=== PATIENT | male | born 1990 | race Two or more races ===

== ENCOUNTER 2017-03-08 10:58 | Emergency (ER) | payer OTHER ==
[~2017-03-08] VITALS: Ht 167.6 cm; Wt 86.2 kg
[2017-03-08] MEDS ORDERED: Lidocaine 1% MPF 10mg/ml 5ml ONE (12:14)
[2017-03-08] MEDS ORDERED: KEFLEX500 MG ORAL (12:19)
[2017-03-08] MEDS ORDERED: BACITRACIN ZIN1 EACH TOPIC (12:19)
[2017-03-08] MEDS ORDERED: IBUPROFEN600 MG ORAL (12:19)
[2017-03-08 12:51] VITALS: BP 123/83
--- NOTE | 2017-03-08 16:16 | Emergency Room Report ---
History of Present Illness General Chief Complaint: Laceration Source: Patient Present Illness HPI This is 27-year-old male who presented after increased pain to his left hand. 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 Patient denied any numbness distally. He had injury just prior to arrival. The patient had not been having any pulsatile bleeding. He denied any other complaints or areas of injury Allergies: Coded Allergies: No Known Allergies (Unverified , 03/08/17) Patient History Past Medical History: see triage record Reviewed Nursing Documentation: PMH: Agreed, PSxH: Agreed Nursing Documentation-PMH Past Medical History: No Stated History Review of Systems All Other Systems: negative except mentioned in HPI Physical Exam Vital Signs Date Time Temp Pulse Resp B/P Pulse Ox O2 Delivery O2 Flow Rate FiO2 03/08/17 11:03 97.5 80 20 148/62 96 Room Air General Appearance: well appearing, no apparent distress, alert, GCS 15, non- toxic Head: normocephalic, atraumatic ENT: hearing grossly normal, normal voice Neck: full range of motion, supple Respiratory: no respiratory distress, speaking full sentences Gastrointestinal: normal inspection Musculoskeletal: normal inspection, back normal, no calf tenderness Neurologic: normal inspection, alert, oriented x3, normal gait Psychiatric: mood/affect normal Skin: laceration - 2cm left hand Procedures Laceration/Wound Repair Laceration/Wound Repair : Consent: Verbal Wound Location: upper extremity Wound's Depth, Shape: superficial Wound Length (cm): 2 Wound Explored: clean Betadine Prep?: Yes Anesthesia: 1% Lidocaine Wound Repaired With: sutures Suture Size/Type: 5:0, proline Number of Sutures: 5 Sterile Dressing Applied?: Yes Patient Tolerated: Well Complications: None Medical Decision Making Diagnostic Impression: Primary Impression: Laceration ER Course Patient presented for laceration. Differential diagnoses included foreign body , nerve injury, arterial injury among others. Patient's benign exam and does not appear to require any further imaging or laboratory testing at this time. The patient's wound was here gated and anesthetized anesthetic. Sutures were placed by physician bacteriology research assistant. The patient was advised to have sutures removed in approximately 2 weeks. He is advised to have wound rechecked in 2-3 days. Last Vital Signs Date Time Temp Pulse Resp B/P Pulse Ox O2 Delivery O2 Flow Rate FiO2 03/08/17 12:51 76 17 123/83 97 Room Air 03/08/17 12:51 98.1 Status: unchanged Disposition: HOME, SELF-CARE Condition: Improved Scripts Bacitracin Zinc* (BACITRACIN ZINC*) 1 Each Packet 1 APPLIC TOPIC THREE TIMES A DAY, #20 PACKET Prov: Emigdio Villeda 03/08/17 Ibuprofen* (MOTRIN*) 600 Mg Tablet 600 MG ORAL Q8H Y for For Pain, #30 TAB 0 Refills Prov: Emigdio Villeda 03/08/17 Cephalexin* (KEFLEX*) 500 Mg Capsule 500 MG ORAL Q6H, #28 CAP 0 Refills Prov: Emigdio Villeda 03/08/17 Referrals: NOT CHOSEN IPA/MD,REFERRING (PCP) Patient Instructions: Laceration Care, Adult Emigdio Villeda Mar 08, 2017 16:16
== END 2017-03-08 12:55 | disposition home or self-care (01) ==
LOC: EMR 12:00
DX: S61.412A Laceration without foreign body of left hand, initial encounter (principal); W26.9XXA Contact with unspecified sharp object(s), initial encounter; Y93.9 Activity, unspecified; Y92.9 Unspecified place or not applicable

== ENCOUNTER 2020-07-09 18:06 | Inpatient (IN) | payer OTHER ==
[~2020-07-09] VITALS: Ht 167.6 cm; Wt 94.8 kg
[~2020-07-09 18:06] MED LIST: BACITRACIN ZIN1 EACH TOPIC; IBUPROFEN600 MG ORAL; KEFLEX500 MG ORAL
--- NOTE | 2020-07-09 18:23 | Emergency Room Report ---
History of Present Illness General Chief Complaint: Dyspnea/Respdistress Source: Patient, EMS Present Illness HPI Patient is a 30-year-old male who presents by ambulance for increased difficulty with breathing. Prior history of recent positive coronavirus testing with a rapid test. Patient states that he may have caught this from his roommate who is also positive. Reports having increased nonproductive cough. Started having onset of increased difficulty breathing today. Prior history of asthma for which he takes albuterol. Had taken ibuprofen prior to coming to the hospital. Reports of increased generalized body aches and cough. Reports having decreased exercise tolerance. Patient was brought in by EMS. Reports having some generalized chest tightness. Denies any leg pain or swelling. 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 COVID-19 Screening: Positive COVID-19 COVID-19 Testing Source: 1 week ago Patient History Past Medical History: see triage record Reviewed Nursing Documentation: PMH: Agreed; PSxH: Agreed Nursing Documentation-PMH Hx Hypertension: Yes Review of Systems Respiratory: Reports: cough, shortness of breath Cardiovascular: Reports: see HPI Physical Exam Vital Signs Date Time Temp Pulse Resp B/P (MAP) Pulse Ox O2 Delivery O2 Flow Rate FiO2 07/09/20 18:03 99.1 113 18 154/91 (112) 95 Room Air Sp02 EP Interpretation: reviewed, normal General Appearance: normal inspection, alert, moderate distress, obese Head: atraumatic ENT: normal ENT inspection, hearing grossly normal, normal voice Neck: normal inspection, full range of motion, supple, no bony tend Respiratory: normal inspection, lungs clear, normal breath sounds, no respiratory distress, no retraction, no wheezing Cardiovascular #1: regular rate, rhythm, no edema Gastrointestinal: normal inspection, normal bowel sounds, non tender, soft, no guarding, no hernia Genitourinary: no CVA tenderness Musculoskeletal: normal inspection, back normal, normal range of motion Neurologic: alert, motor strength/tone normal, 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 Differential diagnosis include was not limited to coronavirus infection, myocardial infarction, pneumonia, pulmonary embolism among others. Because of complexity of patient's case laboratory tests and imaging studies were ordered. Patient presented with previous history of positive coronavirus testing. Was noted to be somewhat tachypneic. He apparently had increased respiratory rate and had not been having any improvement with his inhalers. Patient's lung sounds are clear.Chest x-ray 1 view interpreted by me showed bilateral patchy infiltrates consistent with coronavirus infection. Patient started on IV fluids as well as IV antibiotics. He was started on supplemental oxygen.Laboratory testing was noted to have increased lactic acid level. Patient will be hospitalized for further management of coronavirus infection. Labs Test 07/09/20 18:30 07/09/20 20:00 White Blood Count 5.1 K/UL (4.8-10.8) Red Blood Count 5.02 M/UL (4.70-6.10) Hemoglobin 15.3 G/DL (14.2-18.0) Hematocrit 44.0 % (42.0-52.0) Mean Corpuscular Volume 88 FL (80-99) Mean Corpuscular Hemoglobin 30.6 PG (27.0-31.0) Mean Corpuscular Hemoglobin Concent 34.9 G/DL (32.0-36.0) Red Cell Distribution Width 12.0 % (11.6-14.8) Platelet Count 183 K/UL (150-450) Mean Platelet Volume 7.7 FL (6.5-10.1) Neutrophils (%) (Auto) 75.0 % (45.0-75.0) Lymphocytes (%) (Auto) 20.5 % (20.0-45.0) Monocytes (%) (Auto) 4.1 % (1.0-10.0) Eosinophils (%) (Auto) 0.1 % (0.0-3.0) Basophils (%) (Auto) 0.3 % (0.0-2.0) Prothrombin Time 10.7 SEC (9.30-11.50) Prothromb Time International Ratio 1.0 (0.9-1.1) Activated Partial Thromboplast Time 36 SEC (23-33) D-Dimer 0.23 mg/L FEU (0.00-0.49) Troponin I 0.000 ng/mL (0.000-0.056) Urine Color Yellow Urine Appearance Clear Urine pH 6.5 (4.5-8.0) Urine Specific [place] 1.010 (1.005-1.035) Urine Protein 2+ (NEGATIVE) Urine Glucose (UA) Negative (NEGATIVE) Urine Ketones Negative (NEGATIVE) Urine Blood 3+ (NEGATIVE) Urine Nitrite Negative (NEGATIVE) Urine Bilirubin Negative (NEGATIVE) Urine Urobilinogen 4 MG/DL (0.0-1.0) Urine Leukocyte Esterase Negative (NEGATIVE) EKG Diagnostic Results Rate: tachycardiac Rhythm: NSR ST Segments: no acute changes Last Vital Signs Date Time Temp Pulse Resp B/P (MAP) Pulse Ox O2 Delivery O2 Flow Rate FiO2 07/09/20 18:03 99.1 113 18 154/91 (112) 95 Room Air Status: improved Disposition: ADMITTED INPATIENT Condition: Stable Emigdio Villeda MD Jul 09, 2020 18:23
[2020-07-09 18:30] VITALS: BP 154/91
[2020-07-09] MEDS ORDERED: dexAMETHasone 10mg/ml Inj IV ONE (18:30)
--- NOTE | 2020-07-09 18:35 | NUR ---
ED Nurse Note: Pt was brought in by ambulance from home d/t shortness of breath onset today. Pt is AOx4, cooperative to care, uses accessory muscle, shallow breathing with resp going to 25-35, pt ambulatory with a steady gait, oxygen satting at 98-100% on RA, afebrile on triage. Per pt, he got tested positive for covid over a week ago. Pt was placed on bed and gown; hooked to cardiac specialist. droplet isolation prec. initiated.
--- NOTE | 2020-07-09 18:37 | NUR ---
ED Nurse Note: x-ray at bedside done.
[2020-07-09] MEDS ORDERED: Albuterol 90mcg Inhaler 8gm INH ONE (18:45)
[2020-07-09] MEDS ORDERED: Azithromycin 500 MG in NS 275 ML IV ONE (18:45)
--- NOTE | 2020-07-09 19:00 | Diagnostic Imaging Report ---
EXAM: XR Chest, 1 View CLINICAL HISTORY: SOB TECHNIQUE: Frontal view of the chest. COMPARISON: No relevant prior studies available. FINDINGS: Lungs: Diffuse airspace opacities concerning for infectious process. Pleural space: Unremarkable. Heart: Unremarkable. Mediastinum: Unremarkable. Bones/joints: Unremarkable. IMPRESSION: Diffuse airspace opacities concerning for infectious process.
--- NOTE | 2020-07-09 19:15 | NUR ---
ED Nurse Note: hand off given to ELIER Roldan.
[2020-07-09 19:25] LABS: BASOPHILS % (AUTO) 0.3 % (0.0-2.0); EOSINOPHILS % (AUTO) 0.1 % (0.0-3.0); HEMOGLOBIN 15.3 G/DL (14.2-18.0); LYMPHOCYTES % (AUTO) 20.5 % (20.0-45.0); MEAN CORPUSCULAR VOLUME 88 FL (80-99); MONOCYTES % (AUTO) 4.1 % (1.0-10.0); PLATELET COUNT 183 K/UL (150-450); RED BLOOD COUNT 5.02 M/UL (4.70-6.10); WHITE BLOOD COUNT 5.1 K/UL (4.8-10.8)
--- NOTE | 2020-07-09 19:45 | NUR ---
ED Nurse Note: Pt resting in bed with eyes open, pt placed on 2 L NC per ERMD, SPo2 91% on room air. Pt c/o pain in his chest, ermd notified. VSS, will continue to monitor
[2020-07-09] MEDS ORDERED: Morphine Sulfate 2mg/ml Inj(IV/IM USE ONLY) IVP ONE (20:15)
[2020-07-09] MEDS ORDERED: Morphine Sulfate 2mg/ml Inj(IV/IM USE ONLY) ONE (20:17)
[2020-07-09 20:21] LABS: APPEARANCE,URINE CLEAR; BILIRUBIN, URINE NEGATIVE (NEGATIVE); GLUCOSE, URINE (UA) NEGATIVE (NEGATIVE); KETONES,URINE NEGATIVE (NEGATIVE); LEUKOCYTE ESTERASE ,URINE NEGATIVE (NEGATIVE); NITRITE,URINE NEGATIVE (NEGATIVE); PH,URINE 6.5 (4.5-8.0); PROTEIN,URINE 2+ (NEGATIVE); UROBILINOGEN,URINE 4 MG/DL (0.0-1.0)
[2020-07-09 20:22] LABS: COLOR,URINE YELLOW
[2020-07-09 20:58] LABS: ALANINE AMINOTRANSFERASE 268 U/L (12-78); ALBUMIN 2.7 G/DL (3.4-5.0); ALBUMIN/GLOBULIN RATIO 0.8 (1.0-2.7); ALKALINE PHOSPHATASE 88 U/L (46-116); ANION GAP 6 mmol/L (5-15); ASPARTATE AMINO TRANSFERASE 183 U/L (15-37); BILIRUBIN,TOTAL 0.2 MG/DL (0.2-1.0); BLOOD UREA NITROGEN 6 mg/dL (7-18); CALCIUM 7.3 MG/DL (8.5-10.1); CARBON DIOXIDE 27 MMOL/L (21-32); CHLORIDE 105 MMOL/L (98-107); CKMB < 0.5 NG/ML (0.0-3.6); CREATINE KINASE 187 U/L (26-308); CREATININE 0.8 MG/DL (0.55-1.30); FERRITIN 711 NG/ML (8-388); LACTATE DEHYDROGENASE 358 U/L (81-234); PHOSPHORUS 2.8 MG/DL (2.5-4.9); POTASSIUM 3.5 MMOL/L (3.5-5.1); SODIUM 138 MMOL/L (136-145)
[2020-07-09 21:26] VITALS: BP 148/82
--- NOTE | 2020-07-09 21:40 | NUR ---
TRANSFER TO FLOOR: Patient transferred to as ordered, per Dr. Cherry. Report given to ELIER Diaz. Belongings and medications given to . Family and or S/O informed of transfer.
--- NOTE | 2020-07-09 21:50 | NUR ---
NURSE NOTES: Pt admitted from ER with Dx of Covid PNA. Pt is awake, alert, oriented and ambulatory. Vitals stable.Temp 99.1F Pt is on 2L n/c, O2 sat 98%. Pt coughs time to time. No SOB at this time. Pt has Hx of asthma, taking albuterol. Admission orders acknowledged from Dr. Cherry. Pt oriented to the room. Pt's belongings accounted for. Fall precaution in place, bed alarm on. Pt asked to call for assistance before getting out of bed. Pt will be monitored .
[2020-07-09 22:00] VITALS: BP 130/74
[2020-07-10] VITALS (7 sets, daily range): BP systolic 125–149; BP diastolic 72–85
[2020-07-10] MEDS ORDERED: Albuterol inhaler (00:18)
[2020-07-10] MEDS: Acetaminophen 500mg (ES) tab ORAL PRN ×2 (02:06→21:21)
--- NOTE | 2020-07-10 04:30 | NUR ---
NURSE NOTES: Pt is having shortness of breath, O2 sat 89% on 2L N/C. Pt placed on 4L N/C, now O2 sat at 92-93%. Pt is calm and states " feeling better". Tylenol given as ordered for mild pain. Pt will be monitored.
--- NOTE | 2020-07-10 06:30 | NUR ---
NURSE NOTES: Pt is in 4L n/c. No SDOB now. Pt is calm, awake and alert. Reports no discomfort now.
[2020-07-10 07:17] LABS: ALANINE AMINOTRANSFERASE 301 U/L (12-78); ALBUMIN 2.9 G/DL (3.4-5.0); ALBUMIN/GLOBULIN RATIO 0.7 (1.0-2.7); ALKALINE PHOSPHATASE 102 U/L (46-116); ANION GAP 9 mmol/L (5-15); ASPARTATE AMINO TRANSFERASE 268 U/L (15-37); BILIRUBIN,TOTAL 0.3 MG/DL (0.2-1.0); BLOOD UREA NITROGEN 7 mg/dL (7-18); CALCIUM 8.1 MG/DL (8.5-10.1); CARBON DIOXIDE 24 MMOL/L (21-32); CHLORIDE 102 MMOL/L (98-107); CREATININE 0.9 MG/DL (0.55-1.30); POTASSIUM 4.1 MMOL/L (3.5-5.1); SODIUM 135 MMOL/L (136-145)
--- NOTE | 2020-07-10 07:30 | NUR ---
NURSE HAND-OFF: Important Events on Shift:[Shortness of Breath, Pt placed on 4L n/c] Patient Status: [Stable] Diet: [Regular] Pending Orders: [] Pending Results/Labs:[D-dimers, CMP] Pending MD notification:[] Latest Vital Signs: Temperature 98.4 , Pulse 93 , B/P 125 /72 , Respiratory Rate 20 , O2 SAT 93 , Nasal Cannula, O2 Flow Rate 2.0 . Vital Sign Comment: [] Latest Bradley Fall Score: 20 Fall Risk: Low Risk Safety Measures: Call light Within Reach, Bed Alarm Zone 1, Side Rails Side Rails x2, Bed position Low and Locked. Fall Precautions: Yellow Socks Yellow Gown Door Sign Patient Fall Education Report given to [Radha Jaramillo RN. Informed Clint to monitor O2 sat and give MDI breathing Tx as ordered PRN].
--- NOTE | 2020-07-10 08:00 | NUR ---
NURSE NOTES: Received report from ELIER Diaz. Rounding done. Pt a/o x 4, having breakfast. No SOB noted with O2 4L/min. Denies any pain at this time. Lt AC IV is in placed. Discussed plan of care. Bed in lowest position, call light within reach. Will continue to monitor.
[2020-07-10] MEDS: Enoxaparin 40mg Inj SUBQ SCH (08:32)
--- NOTE | 2020-07-10 09:15 | History and Physical Report ---
DATE OF ADMISSION: 07/09/2020 CHIEF COMPLAINT: COVID pneumonia. HISTORY OF PRESENT ILLNESS: The patient is a 30-year-old male. He has a history of asthma, to rule out fevers and chills, myalgias approximately one week ago he went to go get tested and had a rapid test that was positive for COVID-19. He had been stable until the last day when he developed worsening shortness of breath. He presented to the emergency room. He was noted to be slightly hypoxic and placed on 2 liters of nasal cannula. Chest x-ray showed bilateral infiltrates consistent with viral pneumonia. The patient is now admitted for further evaluation and care. PAST MEDICAL HISTORY: As above. PAST SURGICAL HISTORY: None. CURRENT MEDICATIONS: None. FAMILY HISTORY: None. SOCIAL HISTORY: Negative for tobacco, ethanol, or drugs. REVIEW OF SYSTEMS: Negative except for cough, myalgias, fevers, and shortness of breath. PHYSICAL EXAMINATION: VITAL SIGNS: Temperature 99, pulse 101, respirations 24, blood pressure 149/85, O2 saturation 93% on 2 liters of nasal cannula. GENERAL: The patient is well-developed, no apparent distress. HEART: Regular rate and rhythm. LUNGS: Clear anteriorly. ABDOMEN: Soft, nontender, and nondistended. EXTREMITIES: Without clubbing, cyanosis, or edema. LABORATORY DATA: Sodium 138, potassium 3.5, AST 183, ALT was 268. C-reactive protein was 15. ASSESSMENT: This is a 30-year-old male admitted with complaints of COVID-19 pneumonia and asthma exacerbation. PLAN: 1. IV Decadron, ivermectin per ID. 2. Supplemental oxygen as needed. 3. DVT and stress ulcer prophylaxis. Rolando Cherry M.D. DR: Padmini JOB#: [id number] CC:
--- NOTE | 2020-07-10 12:13 | NUR ---
CASE MANAGEMENT:REVIEW BIBA FROM HOME CC; SOB SI: COVID PNA. HYPOXIA 99.1 113 18 154/91 95% ON RA GLUCOSE+141 CA-7.3 AST/ALT+183/268 IS: PLACED ON 2L/NC 1L NS BOLUS IV DECADRON IV AZITHROMYCIN IV MORPHINE ALBUTEROL INH : TO MED/SURG [facility]
--- NOTE | 2020-07-10 15:37 | NUR ---
CASE MANAGEMENT: Faxed CM review and clinical info (face sheet / H&P/ ER MD notes / lab and imaing reports) to [facility] @ [phone]. [facility] [phone] ext. [phone].
[2020-07-10] MEDS ORDERED: Rocuronium Bromide 50mg/5ml Inj IV ONE (18:47)
[2020-07-10] MEDS ORDERED: Etomidate 40mg/20ml Inj IV ONE (18:47)
--- NOTE | 2020-07-10 19:28 | NUR ---
NURSE HAND-OFF: Important Events on Shift:no events Patient Status: stable Diet: regular Pending Orders: n/a Pending Results/Labs:n/a Pending MD notification:n/a Latest Vital Signs: Temperature 98.5 , Pulse 94 , B/P 128 /80 , Respiratory Rate 18 , O2 SAT 91 , Nasal Cannula, O2 Flow Rate 4.0 . Vital Sign Comment: stable Latest Bradley Fall Score: 20 Fall Risk: Low Risk Safety Measures: Call light Within Reach, Bed Alarm Zone 2, Side Rails Side Rails x2, Bed position Low and Locked. Fall Precautions: Yellow Socks Yellow Gown Door Sign Patient Fall Education Report given to JorgitoELIER rae.
--- NOTE | 2020-07-10 19:34 | NUR ---
NURSE NOTES: The patient is alert and oriented x4 and is presently on 4 liters of oxygen via NC well tolerated.He can ambulate with a steady gait. Patient has a left AC 20g that is patent and asymptomatic.The bed in low level, call light within easy reach. Will continue to monitor as indicated
[2020-07-11] VITALS: BP 127/80
[2020-07-11 04:00] VITALS: BP 122/74
--- NOTE | 2020-07-11 04:00 | NUR ---
NURSE NOTES: The patient is alert and stable and presently sleeping. Vitals are also stable as indicated.
--- NOTE | 2020-07-11 07:13 | NUR ---
NURSE HAND-OFF: Important Events on Shift:continous 4 liter NC well tolerated Patient Status: Diet: Pending Orders: Pending Results/Labs: Pending MD notification: Latest Vital Signs: Temperature 97.2 , Pulse 79 , B/P 122 /74 , Respiratory Rate 18 , O2 SAT 94 , Nasal Cannula, O2 Flow Rate 4.0 . Vital Sign Comment: Latest Bradley Fall Score: 20 Fall Risk: Low Risk Safety Measures: Call light Within Reach, Bed Alarm Zone 2, Side Rails Side Rails x2, Bed position Low and Locked. Fall Precautions: Yellow Socks Yellow Gown Door Sign Patient Fall Education Report given to .
--- NOTE | 2020-07-11 07:49 | NUR ---
NURSE NOTES: Report received from ELIER Russo. Patient awake in bed, alert and oriented x 4, no SOB, bed in lowest position with breaks engaged and alarm on, denied any pain and discomfort at this time, IV line present on left AC, on contact and droplet precautions for COVID 19. Will continue to monitor and proceed with plan of care, call light within reach.
[2020-07-11 08:00] VITALS: BP 129/74
[2020-07-11] MEDS: Enoxaparin 40mg Inj SUBQ SCH (08:27)
[2020-07-11] MEDS: Acetaminophen 500mg (ES) tab ORAL PRN ×2 (08:36→21:49)
--- NOTE | 2020-07-11 08:38 | General Progress Note ---
Subjective ROS Limited/Unobtainable: No Constitutional: Reports: malaise, weakness HEENT: Reports: no symptoms Cardiovascular: Reports: no symptoms Respiratory: Reports: cough, shortness of breath Gastrointestinal/Abdominal: Reports: no symptoms Genitourinary: Reports: no symptoms Neurologic/Psychiatric: Reports: no symptoms Endocrine: Reports: no symptoms Hematologic/Lymphatic: Reports: no symptoms Allergies: Coded Allergies: No Known Allergies (Unverified , 03/08/17) All Systems: reviewed and negative except above Subjective c/o cough. increased o2 requirements. did not qualify for remdesivir due to high LFTs. s/p ivermectin. Objective Last 24 Hour Vital Signs Date Time Temp Pulse Resp B/P (MAP) Pulse Ox O2 Delivery O2 Flow Rate FiO2 07/11/20 08:00 98.1 94 18 129/74 (92) 95 07/11/20 04:00 97.2 79 18 122/74 (90) 94 07/11/20 00:00 97.4 91 19 127/80 (96) 95 07/10/20 21:00 Nasal Cannula 4.0 07/10/20 20:00 98.1 94 18 131/74 (93) 93 07/10/20 16:00 98.5 94 18 128/80 (96) 91 07/10/20 12:00 97.6 103 19 148/79 (102) 87 07/10/20 09:00 Nasal Cannula 4.0 Intake and Output 07/10/20 07/11/20 19:00 07:00 Intake Total 720 ml 640 ml Balance 720 ml 640 ml Intake Oral 720 ml 640 ml # Voids 4 3 # Bowel Movements 1 Height (Feet): 5 Height (Inches): 6.00 Weight (Pounds): 209 General Appearance: WD/WN, alert Cardiovascular: regular rhythm Respiratory/Chest: lungs clear Assessment/Plan Problem List: (1) Coronavirus infection ICD Codes: B34.2 - Coronavirus infection, unspecified SNOMED: 625225816 Status: stable, not improved Assessment/Plan: check abd us check hep panel steroids o2 MDI cough rx Rolando Cherry MD Jul 11, 2020 08:38
[2020-07-11] MEDS: Ascorbic Acid 500mg tab ORAL SCH ×2 (09:09→17:20)
[2020-07-11] MEDS: Vitamin D 1000 units Tab ORAL SCH (09:09)
[2020-07-11] MEDS: Vitamin B Complex Tab ORAL SCH (09:09)
[2020-07-11 12:00] VITALS: BP 125/82
--- NOTE | 2020-07-11 13:00 | Consultation ---
DATE OF CONSULTATION: 07/11/2020 INFECTIOUS DISEASES CONSULTATION CONSULTING PHYSICIAN: Jose Alberto MD REFERRING PHYSICIAN: Rolando Cherry MD REASON FOR CONSULTATION: COVID-19 pneumonia. HISTORY OF PRESENT ILLNESS: This is a 30-year-old gentleman with history of asthma who comes in with fever, chills, cough, shortness of breath along with chest burning, headaches, body aches as well as loss of smell and taste. He was found to have COVID-19 pneumonia and an Infectious Diseases consultation has been obtained for antibiotics. PAST MEDICAL HISTORY: History of asthma. SOCIAL HISTORY: He does not smoke, drink, or use drugs. FAMILY HISTORY: Noncontributory. REVIEW OF SYSTEMS: RESPIRATORY: He has fever and chills. He has cough. He has shortness of breath. He has chest pain. CARDIAC: He has chest pain. No palpitation. No dizziness. No syncope. GASTROINTESTINAL: No nausea. No vomiting. No abdominal pain or diarrhea. MUSCULOSKELETAL: He complains of body aches as well as headaches. He also has loss of smell and taste. MEDICATIONS: He is on vitamin B complex, ascorbic acid, vitamin D, dexamethasone, Protonix, Lovenox, albuterol, ipratropium, Zofran, Tylenol. ALLERGIES: No known drug allergies. PHYSICAL EXAMINATION: VITAL SIGNS: Temperature 98.1, T-max of 99.9, pulse of 95, respiratory rate 20, blood pressure 137/80, O2 saturation of 93% on 2 liters of oxygen. Examination deferred due to COVID-19. LABORATORY AND DIAGNOSTIC DATA: White count 5.1, hemoglobin 15.3, hematocrit for 44, MCV 88, platelet count 183, with neutrophils of 75%. Sodium 135, potassium 4.1, chloride 102, bicarb 24, BUN 7, creatinine 0.9, glucose 243, calcium 8.1. Total bilirubin 0.3, AST 268, ALT 301, alkaline phosphatase 102. Total protein 7 and albumin 2.9. Lipase of 262. UA showing 0 to 2 white cells. On 07/09/2020, blood cultures are negative. Chest x-ray is showing diffuse airspace opacities. ASSESSMENT: This is a 30-year-old gentleman with history of asthma who comes in with fever, chills, cough, shortness of breath, chest pain and is found to have: 1. COVID-19 pneumonia. He is on 2 liters of oxygen with O2 saturation of 93%. 2. History of asthma. 3. Elevated liver function tests. PLAN: 1. Unable to start Remdesivir due to elevated liver function tests. 2. He has received one dose of ivermectin. 3. Continue Decadron day #3. 4. Continue isolation. 5. We will follow up patient clinically. I would like to thank, Dr. Cherry, for this consultation. Jose Alberto M.D. DR: Radha JOB#: [id number] CC: Rolando Cherry M.D.
--- NOTE | 2020-07-11 15:07 | NUR ---
CASE MANAGEMENT:REVIEW SI;COVID PNA. HYPOXIA. 98.5 94 18 129/74 94% 4L NC IS;VIT C PO BID DECADRON IV QD DAY #3 LOVENOX SQ QD PROTONIX PO QD MEDS SURG STATUS DCP;FROM HOME
[2020-07-11] MEDS: Promethazine/Codeine 5ml UD ORAL PRN ×2 (15:21→21:49)
[2020-07-11 16:00] VITALS: BP 122/66
--- NOTE | 2020-07-11 17:33 | Diagnostic Imaging Report ---
Indication: Abnormal liver function tests, abdominal pain, history of Covid positive Technique: Limited stern scale and duplex images of the upper abdomen Comparison: none Findings: The liver demonstrates increased echogenicity. No focal abnormality. Gallbladder is unremarkable, no stones or wall thickening or pericholecystic fluid. Common bile duct measures 3 mm. The right kidney measures 12.4 cm length. Left kidney measures 11.3 cm in length. No hydronephrosis. Spleen is unremarkable. Impression: Liver demonstrates diffusely increased echogenicity, consistent with diffuse hepatocellular disease, possibly fatty change. Negative for gallstones or dilated bile ducts Normal kidneys
--- NOTE | 2020-07-11 19:33 | NUR ---
NURSE HAND-OFF: Important Events on Shift:[monitoring VS and labs, ] Patient Status: [stable] Diet: [regular] Pending Orders: [] Pending Results/Labs:[] Pending MD notification:[] Latest Vital Signs: Temperature 96.5 , Pulse 85 , B/P 122 /66 , Respiratory Rate 18 , O2 SAT 95 , Nasal Cannula, O2 Flow Rate 4.0 . Vital Sign Comment: [] Latest Bradley Fall Score: 20 Fall Risk: Low Risk Safety Measures: Call light Within Reach, Bed Alarm Zone 2, Side Rails Side Rails x2, Bed position Low and Locked. Fall Precautions: Yellow Socks Yellow Gown Door Sign Patient Fall Education Report given to [ELIER Adhikari]. Addendum: 07/11/20 at 1935 by Eda Hutchins RN Important events: new order for cough medicine, abdominal ultrasound done today.
--- NOTE | 2020-07-11 19:40 | NUR ---
NURSE NOTES: Patient in bed, awake, alert and verbally responsive. Able to make needs known. Respiration is even, nasal cannula 4 L. Shortness of breath on exertion, walking to bathroom, nurse was informed. Bed in low and locked position. Provided safe environment. KEpt clean and comfortable. Iv site noted. Skin is intact, warm and dry to touch. Abdomen is soft and non distended. noted with cough. Will give PRN cough medication. Call light is at bedside. Will continue plan of care.
[2020-07-11 20:00] VITALS: BP 128/69
[2020-07-12] VITALS (7 sets, daily range): BP systolic 117–130; BP diastolic 72–81
[2020-07-12] MEDS: Acetaminophen 500mg (ES) tab ORAL PRN (01:46)
[2020-07-12] MEDS: Promethazine/Codeine 5ml UD ORAL PRN ×4 (01:46→22:23)
--- NOTE | 2020-07-12 01:48 | NUR ---
NURSE NOTES: Complained of headache and cough, given PRn medication as ordered. Call light is at bedside. Will continue plan of care.
--- NOTE | 2020-07-12 07:14 | NUR ---
NURSE NOTES: Report received from ELIER Adhikari. Patient awake in bed, alert and oriented x 4, no SOB, bed in lowest position with breaks engaged and alarm on, denied any pain and discomfort at this time, IV line present on left AC, on contact and droplet precautions for COVID 19. On 02 via [place]. Will continue to monitor and proceed with plan of care, call light within reach.
--- NOTE | 2020-07-12 07:27 | NUR ---
NURSE HAND-OFF: Important Events on Shift:oxygen saturation decreasing Patient Status: Diet: Pending Orders: Pending Results/Labs: Pending MD notification: Latest Vital Signs: Temperature 97.7 , Pulse 80 , B/P 117 /72 , Respiratory Rate 20 , O2 SAT 90 , Nasal Cannula, O2 Flow Rate 4.0 . Vital Sign Comment: SAt 90 Latest Bradley Fall Score: 20 Fall Risk: Low Risk Safety Measures: Call light Within Reach, Bed Alarm Zone 2, Side Rails Side Rails x2, Bed position Low and Locked. Fall Precautions: Yellow Socks Yellow Gown Door Sign Patient Fall Education Report given to ELIER Hutchins.
[2020-07-12] MEDS: Ascorbic Acid 500mg tab ORAL SCH ×2 (08:08→17:16)
[2020-07-12] MEDS: Enoxaparin 40mg Inj SUBQ SCH (08:09)
[2020-07-12] MEDS: Vitamin D 1000 units Tab ORAL SCH (08:09)
[2020-07-12] MEDS: Vitamin B Complex Tab ORAL SCH (08:09)
--- NOTE | 2020-07-12 08:12 | General Progress Note ---
Subjective ROS Limited/Unobtainable: No Constitutional: Reports: malaise, weakness HEENT: Reports: no symptoms Cardiovascular: Reports: no symptoms Respiratory: Reports: cough, shortness of breath Gastrointestinal/Abdominal: Reports: no symptoms Genitourinary: Reports: no symptoms Neurologic/Psychiatric: Reports: no symptoms Endocrine: Reports: no symptoms Hematologic/Lymphatic: Reports: no symptoms Allergies: Coded Allergies: No Known Allergies (Unverified , 03/08/17) All Systems: reviewed and negative except above Subjective cough better. hep panel neg,. +fatty liver on abd us. stable on 4L. Objective Last 24 Hour Vital Signs Date Time Temp Pulse Resp B/P (MAP) Pulse Ox O2 Delivery O2 Flow Rate FiO2 07/12/20 04:00 97.7 80 20 117/72 (87) 90 07/12/20 00:00 97.0 86 20 123/81 (95) 91 07/11/20 21:00 Nasal Cannula 4.0 07/11/20 20:00 98.2 90 18 128/69 (88) 92 07/11/20 16:00 96.5 85 18 122/66 (84) 95 07/11/20 12:00 98.5 94 18 125/82 (96) 94 07/11/20 09:06 98.1 07/11/20 09:00 Nasal Cannula 4.0 Intake and Output 07/11/20 07/12/20 19:00 07:00 Intake Total 320 ml 1000 ml Balance 320 ml 1000 ml Intake Oral 320 ml 1000 ml # Voids 3 3 Laboratory Tests 07/11/20 09:22: Hepatitis B Surface Antigen Negative, Hepatitis B Surface Antibody, Quant 8.6L, Hepatitis C Antibody <0.1 07/12/20 06:40: D-Dimer [Pending], Sodium Level [Pending], Potassium Level [Pending], Chloride Level [Pending], Carbon Dioxide Level [Pending], Blood Urea Nitrogen [Pending], Creatinine [Pending], Estimat Glomerular Filtration Rate [Pending], Glucose Level [Pending], Calcium Level [Pending], Total Bilirubin [Pending], Aspartate Amino Transf (AST/SGOT) [Pending], Alanine Aminotransferase (ALT/SGPT) [Pending], Alkaline Phosphatase [Pending], C-Reactive Protein, Quantitative [Pending], Total Protein [Pending], Albumin [Pending], Globulin [Pending] Height (Feet): 5 Height (Inches): 6.00 Weight (Pounds): 209 Objective General Appearance: WD/WN, alert Cardiovascular: regular rhythm Respiratory/Chest: lungs clear Assessment/Plan Problem List: (1) Coronavirus infection ICD Codes: B34.2 - Coronavirus infection, unspecified SNOMED: 583487957 Status: stable, not improved Assessment/Plan: cont steroids o2 MDI cough rx repeat cxr Rolando Cherry MD Jul 12, 2020 08:12
[2020-07-12 08:31] LABS: ALANINE AMINOTRANSFERASE 185 U/L (12-78); ALBUMIN 2.7 G/DL (3.4-5.0); ALBUMIN/GLOBULIN RATIO 0.6 (1.0-2.7); ALKALINE PHOSPHATASE 91 U/L (46-116); ANION GAP 8 mmol/L (5-15); ASPARTATE AMINO TRANSFERASE 112 U/L (15-37); BILIRUBIN,TOTAL 0.4 MG/DL (0.2-1.0); BLOOD UREA NITROGEN 19 mg/dL (7-18); CALCIUM 8.4 MG/DL (8.5-10.1); CARBON DIOXIDE 28 MMOL/L (21-32); CHLORIDE 102 MMOL/L (98-107); POTASSIUM 4.3 MMOL/L (3.5-5.1); SODIUM 138 MMOL/L (136-145)
--- NOTE | 2020-07-12 11:58 | Infectious Diseases Prog Note ---
Assessment/Plan Assessment/Plan A: 1. COVID-19 pneumonia. 2. History of asthma. 3. Elevated liver function tests. 4. Fatty liver PLAN: 1. Unable to start Remdesivir due to elevated liver function tests. 2. He has received one dose of ivermectin. 3. Continue Decadron day #4. 4. Continue isolation. 5. We will follow up patient clinically. Subjective ROS Limited/Unobtainable: No Constitutional: Reports: no symptoms Respiratory: Reports: shortness of breath, dry cough Cardiovascular: Reports: no symptoms Gastrointestinal/Abdominal: Reports: no symptoms Genitourinary: Reports: no symptoms Allergies: Coded Allergies: No Known Allergies (Unverified , 03/08/17) Objective Last 24 Hour Vital Signs Date Time Temp Pulse Resp B/P (MAP) Pulse Ox O2 Delivery O2 Flow Rate FiO2 07/12/20 09:00 Nasal Cannula 4.0 07/12/20 08:00 97.4 91 20 121/80 (94) 93 07/12/20 04:00 97.7 80 20 117/72 (87) 90 07/12/20 00:00 97.0 86 20 123/81 (95) 91 07/11/20 21:00 Nasal Cannula 4.0 07/11/20 20:00 98.2 90 18 128/69 (88) 92 07/11/20 16:00 96.5 85 18 122/66 (84) 95 07/11/20 12:00 98.5 94 18 125/82 (96) 94 Height (Feet): 5 Height (Inches): 6.00 Weight (Pounds): 209 HEENT: mucous membranes moist Respiratory/Chest: other - oxygen by nasal mcannula Cardiovascular: normal rate Abdomen: soft, non tender Extremities: no edema Neurologic/Psychiatric: alert, oriented x 3, responsive Microbiology Date/Time Source Procedure Growth Status 07/09/20 18:45 Blood Blood Culture - Preliminary NO GROWTH AFTER 48 HOURS Resulted 07/09/20 18:30 Blood Blood Culture - Preliminary NO GROWTH AFTER 48 HOURS Resulted Laboratory Tests Test 07/12/20 06:40 D-Dimer 0.32 mg/L FEU (0.00-0.49) Sodium Level 138 MMOL/L (136-145) Potassium Level 4.3 MMOL/L (3.5-5.1) Chloride Level 102 MMOL/L (98-107) Carbon Dioxide Level 28 MMOL/L (21-32) Anion Gap 8 mmol/L (5-15) Blood Urea Nitrogen 19 mg/dL (7-18) H Creatinine 1.0 MG/DL (0.55-1.30) Estimat Glomerular Filtration Rate > 60 mL/min (>60) Glucose Level 258 MG/DL (74-106) H Calcium Level 8.4 MG/DL (8.5-10.1) L Total Bilirubin 0.4 MG/DL (0.2-1.0) Aspartate Amino Transf (AST/SGOT) 112 U/L (15-37) H Alanine Aminotransferase (ALT/SGPT) 185 U/L (12-78) H Alkaline Phosphatase 91 U/L (46-116) C-Reactive Protein, Quantitative 9.9 mg/dL (0.00-0.90) H Total Protein 7.3 G/DL (6.4-8.2) Albumin 2.7 G/DL (3.4-5.0) L Globulin 4.6 g/dL Albumin/Globulin Ratio 0.6 (1.0-2.7) L Current Medications Medications (Trade) Dose Ordered Sig/Milagro Route PRN Reason Start Time Stop Time Status Last Admin Dose Admin Acetaminophen (Tylenol) 500 mg Q4H PRN ORAL Mild Pain (Pain Scale 1-3) 07/09/20 21:45 08/08/20 21:44 07/12/20 01:46 Albuterol/ Ipratropium (Combivent Respimat) 2 puff Q2H PRN INH Shortness of Breath 07/09/20 21:45 08/08/20 21:44 07/10/20 21:27 Ascorbic Acid (Vitamin C) 500 mg TWICE A DAY ORAL 07/11/20 09:00 08/10/20 08:59 07/12/20 08:08 Dexamethasone Sodium Phosphate (Decadron 4mg/ml vial) 6 mg DAILY IVP 07/10/20 09:00 07/18/20 12:00 07/12/20 08:08 Enoxaparin Sodium (Lovenox) 40 mg DAILY SUBQ 07/10/20 09:00 10/08/20 08:59 07/12/20 08:09 Ondansetron HCl (Zofran) 4 mg Q6H PRN IVP Nausea & Vomiting 07/09/20 21:45 08/08/20 21:44 Pantoprazole (Protonix) 40 mg DAILY ORAL 07/10/20 09:00 08/09/20 08:59 07/12/20 08:09 Promethazine HCl/ Codeine (Phenergan with Codeine) 5 ml Q4H PRN ORAL For Cough 07/11/20 15:15 08/10/20 15:14 07/12/20 11:47 Vitamin B Complex (Vitamin B Complex) 1 tab DAILY ORAL 07/11/20 09:00 10/09/20 08:59 07/12/20 08:09 Vitamin D (Vitamin D) 1,000 intlu DAILY ORAL 07/11/20 09:00 08/10/20 08:59 07/12/20 08:09 Mian Wing MD Jul 12, 2020 11:58
--- NOTE | 2020-07-12 12:30 | NUR ---
RADIOLOGY DEPT., CHEST X-RAY DONE.-P.DYE
--- NOTE | 2020-07-12 13:51 | Diagnostic Imaging Report ---
Indication: Shortness of breath Technique: One view of the chest Comparison: 07/09/2020 Findings: Interim worsening of previously demonstrated bilateral infiltrates, with infiltrates now more confluent bilaterally. The heart size is normal. The pleural spaces remain clear Impression: Worsening bilateral infiltrates
--- NOTE | 2020-07-12 15:21 | NUR ---
CASE MANAGEMENT:REVIEW SI;COVID PNEUMONIA 97.4 91 20 91% 4L NC BUN 19 BG 258 AST 112 ALT 185 CRP 9.9 ALB 2.7 CXR ~ Worsening bilateral infiltrates IS;PHENERGAN W/CODEINE PO Q4 PRN DECADRON IV QD PROTONIX PO QD LOVENOX SQ QD TYLENOL PO Q4 PRN MED SURG STATUS DCP;FROM HOME PLAN; TRANSFER TO [facility] DUE TO O2 DESATURATION
--- NOTE | 2020-07-12 16:39 | NUR ---
NURSE NOTES: Patient was transferred to telemetry unit per doctor's order at 1630 in stable condition. Pt went to room 220-1, report given to ELIER Barcenas. RT will set up 02 as soon as possible. All belongings complete, tried to contact significant other, Lisbet but unable to be reached.
--- NOTE | 2020-07-12 17:23 | NUR ---
NURSE NOTES: Patient report received from Eda Miranda RN. Pt was brought with 15L/min non-rebreather mask, no apparent respiratory distress. Pt is awake and alert x4, states no pain, no distress. ELIER Veras stated that pt was placed on Non-rebreather because he was saturating at 80-82% on nasal cannula last night so they called RT. Pt has a left 20 gauge IV saline lock that is patent and intact. Bed is locked and in the lowest position, side rails are up x2, call light is within reach, contact & droplet precautions in place pt is ambulatory. Will continue to monitor.
--- NOTE | 2020-07-12 19:13 | NUR ---
NURSE HAND-OFF REPORT: Important Events on Shift:[Pt was transferred from [facility]. Pt was placed on 100% high flow nasal cannula at 40 L/min by RT and is saturating at 95%.] Patient Status: [Full Code] Diet: [Regular Diet] Pending Orders: [No] Pending Results/Labs:[No] Pending MD notification:[No] Latest Vital Signs: Temperature 97.5 , Pulse 80 , B/P 126 /79 , Respiratory Rate 20 , O2 SAT 91 , Nasal Cannula, O2 Flow Rate 40.0 . Vital Sign Comment: [] EKG Rhythm: Rhythm change?: MD Notified?: - MD Response: Latest Bradley Fall Score: 20 Fall Risk: Low Risk Safety Measures: Call light Within Reach, Bed Alarm Zone 2, Side Rails Side Rails x2, Bed position Low and Locked. Fall Precautions: Yellow Socks Yellow Gown Door Sign Patient Fall Education Report given to [Arash Longo RN].
--- NOTE | 2020-07-12 19:15 | NUR ---
NURSE NOTES: Got report from Swapna THAPA. Pt is on 40L High flow O2 sating at 100%, no apparent respiratory distress. Pt is awake and alert x4, states no pain, no distress. Pt ambulatory. Pt has a left 20 gauge IV saline lock that is patent and intact. Bed is locked and in the lowest position, side rails are up x2, call light is within reach, contact & droplet precautions in place pt is ambulatory. Will continue to monitor.
--- NOTE | 2020-07-12 21:45 | Pulmonology Progress Note ---
Subjective ROS Limited/Unobtainable: No Constitutional: Reports: no symptoms Gastrointestinal/Abdominal: Reports: no symptoms Allergies: Coded Allergies: No Known Allergies (Unverified , 03/08/17) All Systems: reviewed and negative except above Subjective asked to follow Objective Last 24 Hour Vital Signs Date Time Temp Pulse Resp B/P (MAP) Pulse Ox O2 Delivery O2 Flow Rate FiO2 07/12/20 20:11 91 High Flow 40.0 100 07/12/20 17:52 High Flow 40.0 100 07/12/20 17:30 Nasal Cannula 40.0 07/12/20 17:13 97.5 80 20 126/79 (95) 91 07/12/20 16:23 Nasal Cannula 3.0 32 07/12/20 16:00 97.3 92 20 121/77 (92) 93 07/12/20 12:00 97.1 89 20 122/72 (89) 91 07/12/20 09:00 Nasal Cannula 4.0 07/12/20 08:00 97.4 91 20 121/80 (94) 93 07/12/20 04:00 97.7 80 20 117/72 (87) 90 07/12/20 00:00 97.0 86 20 123/81 (95) 91 Intake and Output 07/11/20 07/12/20 19:00 07:00 Intake Total 320 ml 1000 ml Balance 320 ml 1000 ml Intake Oral 320 ml 1000 ml # Voids 3 3 Objective deferred due to COVID Laboratory Tests 07/12/20 06:40: D-Dimer 0.32, Sodium Level 138, Potassium Level 4.3, Chloride Level 102, Carbon Dioxide Level 28, Anion Gap 8, Blood Urea Nitrogen 19H, Creatinine 1.0, Estimat Glomerular Filtration Rate > 60, Glucose Level 258H, Calcium Level 8.4L, Total Bilirubin 0.4, Aspartate Amino Transf (AST/SGOT) 112H, Alanine Aminotransferase (ALT/SGPT) 185H, Alkaline Phosphatase 91, C-Reactive Protein, Quantitative 9.9H, Total Protein 7.3, Albumin 2.7L, Globulin 4.6, Albumin/Globulin Ratio 0.6L 07/12/20 12:30: Arterial Blood pH 7.429, Arterial Blood Partial Pressure CO2 32.0L, Arterial Blood Partial Pressure O2 67.0L, Arterial Blood HCO3 20.7L, Arterial Blood Oxygen Saturation 92.6L, Arterial Blood Base Excess -2.5L, Jacob Test Positive Current Medications Medications (Trade) Dose Ordered Sig/Milagro Route PRN Reason Start Time Stop Time Status Last Admin Dose Admin Acetaminophen (Tylenol) 500 mg Q4H PRN ORAL Mild Pain (Pain Scale 1-3) 07/09/20 21:45 08/08/20 21:44 07/12/20 01:46 Albuterol/ Ipratropium (Combivent Respimat) 2 puff Q2H PRN INH Shortness of Breath 07/09/20 21:45 08/08/20 21:44 07/10/20 21:27 Ascorbic Acid (Vitamin C) 500 mg TWICE A DAY ORAL 07/11/20 09:00 08/10/20 08:59 07/12/20 17:16 Dexamethasone Sodium Phosphate (Decadron 4mg/ml vial) 6 mg DAILY IVP 07/10/20 09:00 07/18/20 12:00 07/12/20 08:08 Enoxaparin Sodium (Lovenox) 40 mg DAILY SUBQ 07/10/20 09:00 10/08/20 08:59 07/12/20 08:09 Ondansetron HCl (Zofran) 4 mg Q6H PRN IVP Nausea & Vomiting 07/09/20 21:45 08/08/20 21:44 Pantoprazole (Protonix) 40 mg DAILY ORAL 07/10/20 09:00 08/09/20 08:59 07/12/20 08:09 Promethazine HCl/ Codeine (Phenergan with Codeine) 5 ml Q4H PRN ORAL For Cough 07/11/20 15:15 08/10/20 15:14 07/12/20 17:16 Vitamin B Complex (Vitamin B Complex) 1 tab DAILY ORAL 07/11/20 09:00 10/09/20 08:59 07/12/20 08:09 Vitamin D (Vitamin D) 1,000 intlu DAILY ORAL 07/11/20 09:00 08/10/20 08:59 07/12/20 08:09 Assessment/Plan Assessment/Plan acute hypoxemic respiratory failure COVID pneumonia Asthma elevated liver enzymes PLAN monitor imaging monitor ABG decadron respiratory care ID noted DVT prophylaxis monitor respiratory status for change impression, plan, and exam edited and reviewed in detail care discussed with Elfego Rutherford MD Jul 12, 2020 21:45
[2020-07-13] VITALS: BP 124/75
[2020-07-13 04:00] VITALS: BP 122/70
--- NOTE | 2020-07-13 07:25 | NUR ---
NURSE HAND-OFF REPORT: Important Events on Shift:[] Patient Status: [STABLE] Diet: [REGULAR] Pending Orders: [] Pending Results/Labs:[] Pending MD notification:[] Latest Vital Signs: Temperature 98.1 , Pulse 59 , B/P 100 /60 , Respiratory Rate 20 , O2 SAT 96 , Nasal Cannula, O2 Flow Rate 40.0 . Vital Sign Comment: [] EKG Rhythm: Sinus Bradycardia Rhythm change?: N MD Notified?: Ildefonso Cherry MD Response: Latest Bradley Fall Score: 30 Fall Risk: Medium Risk Safety Measures: Call light Within Reach, Bed Alarm Zone 2, Side Rails Side Rails x2, Bed position Low and Locked. Fall Precautions: Yellow Socks Yellow Gown Door Sign Patient Fall Education Report given to [MEJIA RN].
--- NOTE | 2020-07-13 07:30 | NUR ---
NURSE NOTES: pt is in bed and awake, eating breakfast. 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 pt is on Bipap 40L, FiO2 100%. pt respirations are 40bpm and O2 saturation is 88-89, is aware. bed is locked in lowest position, call light is within reach. encouraged pt to use call light as needed. will continue plan of care and monitoring.
[2020-07-13 08:00] VITALS: BP 126/76
--- NOTE | 2020-07-13 08:18 | NUR ---
CASE MANAGEMENT:REVIEW 07/13/20 SI: COVID PNA BEGAN DESATURATING YESTERDAY ON NASAL CANNULA 98.0 49 20 122/70 95% HIGH FLOW 40L/100% IS: IV DECADRON QD LOVENOX SQ QD VIT C PO BID VIT D PO QD DUONEB INH Q2HR PRN : NOW ON TELEMETRY
--- NOTE | 2020-07-13 08:22 | NUR ---
NURSE NOTES: pt was in bed and asleep. breakfast was placed at bedside. 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 bed is locked and in lowest position. call light is within reach. pt is on nasal cannula 4L. Addendum: 07/13/20 at 0906 by Maddie Galvan RN pt is on high flow 40L 100%FiO2
--- NOTE | 2020-07-13 08:53 | General Progress Note ---
Subjective ROS Limited/Unobtainable: No Constitutional: Reports: malaise, weakness HEENT: Reports: no symptoms Cardiovascular: Reports: no symptoms Respiratory: Reports: cough, shortness of breath Gastrointestinal/Abdominal: Reports: no symptoms Genitourinary: Reports: no symptoms Neurologic/Psychiatric: Reports: no symptoms Endocrine: Reports: no symptoms Hematologic/Lymphatic: Reports: no symptoms Allergies: Coded Allergies: No Known Allergies (Unverified , 03/08/17) All Systems: reviewed and negative except above Subjective doing poorly. worsening o2 sats. on high flow o2 100% 40L. Objective Last 24 Hour Vital Signs Date Time Temp Pulse Resp B/P (MAP) Pulse Ox O2 Delivery O2 Flow Rate FiO2 07/13/20 08:00 96 High Flow 40.0 100 07/13/20 04:00 49 07/13/20 04:00 98.0 60 20 122/70 (87) 95 07/13/20 03:44 96 High Flow 40.0 100 07/13/20 00:00 57 07/13/20 00:00 98.3 67 20 124/75 (91) 96 07/12/20 23:26 95 High Flow 40.0 100 07/12/20 21:00 Nasal Cannula 4.0 07/12/20 20:11 91 High Flow 40.0 100 07/12/20 20:00 97.8 66 20 130/81 (97) 95 07/12/20 20:00 63 07/12/20 19:00 Nasal Cannula 40.0 07/12/20 17:52 High Flow 40.0 100 07/12/20 17:30 Nasal Cannula 40.0 07/12/20 17:13 97.5 80 20 126/79 (95) 91 07/12/20 16:23 Nasal Cannula 3.0 32 07/12/20 16:00 97.3 92 20 121/77 (92) 93 07/12/20 12:00 97.1 89 20 122/72 (89) 91 07/12/20 09:00 Nasal Cannula 4.0 Intake and Output 07/12/20 07/13/20 19:00 07:00 Intake Total 120 ml Balance 120 ml Intake Oral 120 ml # Voids 1 3 # Bowel Movements 2 Laboratory Tests 07/12/20 12:30: Arterial Blood pH 7.429, Arterial Blood Partial Pressure CO2 32.0L, Arterial Blood Partial Pressure O2 67.0L, Arterial Blood HCO3 20.7L, Arterial Blood Oxygen Saturation 92.6L, Arterial Blood Base Excess -2.5L, Jacob Test Positive Height (Feet): 5 Height (Inches): 6.00 Weight (Pounds): 209 Objective General Appearance: WD/WN, alert Cardiovascular: regular rhythm Respiratory/Chest: lungs clear Assessment/Plan Problem List: (1) Coronavirus infection ICD Codes: B34.2 - Coronavirus infection, unspecified SNOMED: [id number] Status: stable, not improved Assessment/Plan: cont steroids ?remdesivir trial o2 MDI cough rx repeat cxr- reviewed pulm eval called guarded Rolando Cherry MD Jul 13, 2020 08:53
[2020-07-13] MEDS: Vitamin B Complex Tab ORAL SCH (09:22)
[2020-07-13] MEDS: Vitamin D 1000 units Tab ORAL SCH (09:22)
[2020-07-13] MEDS: Enoxaparin 40mg Inj SUBQ SCH (09:23)
[2020-07-13] MEDS: Ascorbic Acid 500mg tab ORAL SCH ×2 (09:24→18:39)
--- NOTE | 2020-07-13 11:03 | Infectious Diseases Prog Note ---
Assessment/Plan Assessment/Plan antibiotics : none A 1. COVID-19 pneumonia on 40 liters of oxygen with O2 saturation 96 %. s/p ivermectin 2. History of asthma. 3. Elevated liver function tests improving PLAN: 1. start Remdesivir once its available 2. Continue Decadron day #5. 3. Continue isolation. 4. We will follow up patient clinically Subjective Constitutional: Denies: fever, chills Respiratory: Reports: shortness of breath, dry cough - mild Gastrointestinal/Abdominal: Denies: nausea, vomiting, diarrhea Musculoskeletal: Reports: pain - in body Allergies: Coded Allergies: No Known Allergies (Unverified , 03/08/17) Objective Last 24 Hour Vital Signs Date Time Temp Pulse Resp B/P (MAP) Pulse Ox O2 Delivery O2 Flow Rate FiO2 07/13/20 08:00 54 07/13/20 08:00 96 High Flow 40.0 100 07/13/20 08:00 97.5 62 40 126/76 (93) 89 07/13/20 04:00 49 07/13/20 04:00 98.0 60 20 122/70 (87) 95 07/13/20 03:44 96 High Flow 40.0 100 07/13/20 00:00 57 07/13/20 00:00 98.3 67 20 124/75 (91) 96 07/12/20 23:26 95 High Flow 40.0 100 07/12/20 21:00 Nasal Cannula 4.0 07/12/20 20:11 91 High Flow 40.0 100 07/12/20 20:00 97.8 66 20 130/81 (97) 95 07/12/20 20:00 63 07/12/20 19:00 Nasal Cannula 40.0 07/12/20 17:52 94 High Flow 40.0 100 07/12/20 17:30 Nasal Cannula 40.0 07/12/20 17:13 97.5 80 20 126/79 (95) 91 07/12/20 16:23 91 Nasal Cannula 3.0 32 07/12/20 16:00 97.3 92 20 121/77 (92) 93 07/12/20 12:00 97.1 89 20 122/72 (89) 91 Height (Feet): 5 Height (Inches): 6.00 Weight (Pounds): 209 Laboratory Tests Test 07/12/20 12:30 07/13/20 10:05 Arterial Blood pH 7.429 (7.350-7.450) 7.414 (7.350-7.450) Arterial Blood Partial Pressure CO2 32.0 mmHg (35.0-45.0) L 36.8 mmHg (35.0-45.0) Arterial Blood Partial Pressure O2 67.0 mmHg (75.0-100.0) L 86.8 mmHg (75.0-100.0) Arterial Blood HCO3 20.7 mmol/L (22.0-26.0) L 23.0 mmol/L (22.0-26.0) Arterial Blood Oxygen Saturation 92.6 % (95-100) L 96.1 % (95-100) Arterial Blood Base Excess -2.5 (-2-2) L -1.1 (-2-2) Jacob Test Positive Positive Current Medications Medications (Trade) Dose Ordered Sig/Milagro Route PRN Reason Start Time Stop Time Status Last Admin Dose Admin Acetaminophen (Tylenol) 500 mg Q4H PRN ORAL Mild Pain (Pain Scale 1-3) 07/09/20 21:45 08/08/20 21:44 07/12/20 01:46 Albuterol/ Ipratropium (Combivent Respimat) 2 puff Q2H PRN INH Shortness of Breath 07/09/20 21:45 08/08/20 21:44 07/10/20 21:27 Ascorbic Acid (Vitamin C) 500 mg TWICE A DAY ORAL 07/11/20 09:00 08/10/20 08:59 07/13/20 09:24 Dexamethasone Sodium Phosphate (Decadron 4mg/ml vial) 6 mg DAILY IVP 07/10/20 09:00 07/18/20 12:00 07/13/20 09:27 Enoxaparin Sodium (Lovenox) 40 mg DAILY SUBQ 07/10/20 09:00 10/08/20 08:59 07/13/20 09:23 Ondansetron HCl (Zofran) 4 mg Q6H PRN IVP Nausea & Vomiting 07/09/20 21:45 08/08/20 21:44 Pantoprazole (Protonix) 40 mg DAILY ORAL 07/10/20 09:00 08/09/20 08:59 07/13/20 09:22 Promethazine HCl/ Codeine (Phenergan with Codeine) 5 ml Q4H PRN ORAL For Cough 07/11/20 15:15 08/10/20 15:14 07/12/20 22:23 Vitamin B Complex (Vitamin B Complex) 1 tab DAILY ORAL 07/11/20 09:00 10/09/20 08:59 07/13/20 09:22 Vitamin D (Vitamin D) 1,000 intlu DAILY ORAL 07/11/20 09:00 08/10/20 08:59 07/13/20 09:22 Jose Alberto MD Jul 13, 2020 11:03
[2020-07-13 12:00] VITALS: BP 125/67
--- NOTE | 2020-07-13 14:15 | NUR ---
NURSE NOTES: Patient was instructed to stay on pron position for most of the time. Patient verbalized understanding and followed command
--- NOTE | 2020-07-13 15:02 | Pulmonology Progress Note ---
Subjective ROS Limited/Unobtainable: No Constitutional: Denies: fever, chills Gastrointestinal/Abdominal: Denies: nausea, vomiting, diarrhea Musculoskeletal: Reports: pain - in body Allergies: Coded Allergies: No Known Allergies (Unverified , 03/08/17) All Systems: reviewed and negative except above Subjective asked to follow Objective Last 24 Hour Vital Signs Date Time Temp Pulse Resp B/P (MAP) Pulse Ox O2 Delivery O2 Flow Rate FiO2 07/13/20 14:31 99 High Flow 40.0 100 07/13/20 12:00 47 07/13/20 12:00 97.1 65 34 125/67 (86) 91 07/13/20 11:30 96 High Flow 40.0 100 07/13/20 09:00 Nasal Cannula 40.0 07/13/20 08:00 54 07/13/20 08:00 96 High Flow 40.0 100 07/13/20 08:00 97.5 62 40 126/76 (93) 89 07/13/20 04:00 49 07/13/20 04:00 98.0 60 20 122/70 (87) 95 07/13/20 03:44 96 High Flow 40.0 100 07/13/20 00:00 57 07/13/20 00:00 98.3 67 20 124/75 (91) 96 07/12/20 23:26 95 High Flow 40.0 100 07/12/20 21:00 Nasal Cannula 4.0 07/12/20 20:11 91 High Flow 40.0 100 07/12/20 20:00 97.8 66 20 130/81 (97) 95 07/12/20 20:00 63 07/12/20 19:00 Nasal Cannula 40.0 07/12/20 17:52 94 High Flow 40.0 100 07/12/20 17:30 Nasal Cannula 40.0 07/12/20 17:13 97.5 80 20 126/79 (95) 91 07/12/20 16:23 91 Nasal Cannula 3.0 32 07/12/20 16:00 97.3 92 20 121/77 (92) 93 Intake and Output 07/12/20 07/13/20 19:00 07:00 Intake Total 120 ml Balance 120 ml Intake Oral 120 ml # Voids 1 3 # Bowel Movements 2 Objective deferred due to COVID Laboratory Tests 07/13/20 10:05: Arterial Blood pH 7.414, Arterial Blood Partial Pressure CO2 36.8, Arterial Blood Partial Pressure O2 86.8, Arterial Blood HCO3 23.0, Arterial Blood Oxygen Saturation 96.1, Arterial Blood Base Excess -1.1, Jacob Test Positive Current Medications Medications (Trade) Dose Ordered Sig/Milagro Route PRN Reason Start Time Stop Time Status Last Admin Dose Admin Acetaminophen (Tylenol) 500 mg Q4H PRN ORAL Mild Pain (Pain Scale 1-3) 07/09/20 21:45 08/08/20 21:44 07/12/20 01:46 Albuterol/ Ipratropium (Combivent Respimat) 2 puff Q2H PRN INH Shortness of Breath 07/09/20 21:45 08/08/20 21:44 07/10/20 21:27 Ascorbic Acid (Vitamin C) 500 mg TWICE A DAY ORAL 07/11/20 09:00 08/10/20 08:59 07/13/20 09:24 Enoxaparin Sodium (Lovenox) 40 mg DAILY SUBQ 07/10/20 09:00 10/08/20 08:59 07/13/20 09:23 Methylprednisolone Sodium Succinate (Solu-MEDROL) 40 mg Q12HR IVP 07/13/20 21:00 07/23/20 21:30 Ondansetron HCl (Zofran) 4 mg Q6H PRN IVP Nausea & Vomiting 07/09/20 21:45 08/08/20 21:44 Pantoprazole (Protonix) 40 mg DAILY ORAL 07/10/20 09:00 08/09/20 08:59 07/13/20 09:22 Promethazine HCl/ Codeine (Phenergan with Codeine) 5 ml Q4H PRN ORAL For Cough 07/11/20 15:15 08/10/20 15:14 07/12/20 22:23 Vitamin B Complex (Vitamin B Complex) 1 tab DAILY ORAL 07/11/20 09:00 10/09/20 08:59 07/13/20 09:22 Vitamin D (Vitamin D) 1,000 intlu DAILY ORAL 07/11/20 09:00 08/10/20 08:59 07/13/20 09:22 Assessment/Plan Assessment/Plan acute hypoxemic respiratory failure COVID pneumonia Asthma elevated liver enzymes PLAN monitor imaging monitor ABG decadron respiratory care ID noted DVT prophylaxis monitor respiratory status for change impression, plan, and exam edited and reviewed in detail care discussed with Elfego Rutherford MD Jul 13, 2020 15:02
--- NOTE | 2020-07-13 15:45 | NUR ---
NURSE NOTES: Patient has been meg, Contacted MD for cardio consults. Received order to add Dr. Swain. Order carried out
[2020-07-13 16:00] VITALS: BP 113/62
--- NOTE | 2020-07-13 16:14 | NUR ---
INSURANCE CLINICALS/REVIEW FAXED TO P [phone] F [phone] [facility] P [phone] F [phone]
[2020-07-13] MEDS: Promethazine/Codeine 5ml UD ORAL PRN (18:43)
--- NOTE | 2020-07-13 19:13 | NUR ---
NURSE HAND-OFF REPORT: Important Events on Shift:[] endorsed plan of care, encouraged RN to keep pt lying prone to help with O2 saturation. Patient Status: [] full code Diet: [] regular Pending Orders: [] Pending Results/Labs:[] Abdominal ultrasound Pending MD notification:[] Latest Vital Signs: Temperature 98.6 , Pulse 54 , B/P 113 /62 , Respiratory Rate 26 , O2 SAT 95 , Nasal Cannula, O2 Flow Rate 40.0 . Vital Sign Comment: [] EKG Rhythm: Sinus Bradycardia Rhythm change?: N MD Notified?: Y Steve Cherry MD Response: Latest Bradley Fall Score: 30 Fall Risk: Medium Risk Safety Measures: Call light Within Reach, Bed Alarm Zone 2, Side Rails Side Rails x2, Bed position Low and Locked. Fall Precautions: Yellow Socks Yellow Gown Door Sign Patient Fall Education Report given to [].Mele THAPA Addendum: 07/13/20 at 1921 by Octavio Kearns RN abdominal ultrasound is not pending
--- NOTE | 2020-07-13 19:15 | NUR ---
NURSE NOTES: Got report from Maddie RN. Pt is on 40L High flow O2 sating at 100%, no apparent respiratory distress. Pt is awake and alert x4, states no pain, no distress. Pt ambulatory. Pt has a left 20 gauge IV saline lock that is patent and intact. Bed is locked and in the lowest position, side rails are up x2, call light is within reach, contact & droplet precautions in place pt is ambulatory. Will continue to monitor.
[2020-07-13 20:00] VITALS: BP 112/67
[2020-07-13] MEDS: Solu-MEDROL 40mg Inj IVP SCH (21:00)
[2020-07-14] VITALS: BP 100/60
[2020-07-14 04:00] VITALS: BP 127/67
[2020-07-14] MEDS: Promethazine/Codeine 5ml UD ORAL PRN ×2 (05:04→20:02)
--- NOTE | 2020-07-14 07:15 | NUR ---
NURSE HAND-OFF REPORT: Important Events on Shift:[] Patient Status: [STABLE] Diet: [REG] Pending Orders: [] Pending Results/Labs:[] Pending MD notification:[] Latest Vital Signs: Temperature 98.2 , Pulse 47 , B/P 127 /67 , Respiratory Rate 20 , O2 SAT 93 , Nasal Cannula, O2 Flow Rate 40.0 . Vital Sign Comment: [] EKG Rhythm: Sinus Bradycardia Rhythm change?: N MD Notified?: Ildefonso Cherry MD Response: Latest Bradley Fall Score: 30 Fall Risk: Medium Risk Safety Measures: Call light Within Reach, Bed Alarm Zone 2, Side Rails Side Rails x2, Bed position Low and Locked. Fall Precautions: Yellow Socks Yellow Gown Door Sign Patient Fall Education Report given to [MEJIA RN].
--- NOTE | 2020-07-14 07:20 | NUR ---
NURSE NOTES: Received report from Arash/RN, Patient is awake, lying semi-connelly's, . AAO x 4, On 40L, 100% high flow Nasal canula, sating 89%, Tachypneic, Encouraged to sleep pron when possible. IV on left AC, intact and patent. Able to make needs known. Denies pain at this time. Bed in lowest position and locked, Call light within reach. Encouraged to use call light when needed. Will continue plan of care.
--- NOTE | 2020-07-14 07:41 | General Progress Note ---
Subjective ROS Limited/Unobtainable: No Constitutional: Reports: malaise, weakness HEENT: Reports: no symptoms Cardiovascular: Reports: no symptoms Respiratory: Reports: cough, shortness of breath Gastrointestinal/Abdominal: Reports: no symptoms Genitourinary: Reports: no symptoms Neurologic/Psychiatric: Reports: no symptoms Endocrine: Reports: no symptoms Hematologic/Lymphatic: Reports: no symptoms Allergies: Coded Allergies: No Known Allergies (Unverified , 03/08/17) All Systems: reviewed and negative except above Subjective stable. no new complaints. on high flow o2 100% 40L. intermittent bradycardia Objective Last 24 Hour Vital Signs Date Time Temp Pulse Resp B/P (MAP) Pulse Ox O2 Delivery O2 Flow Rate FiO2 07/14/20 04:00 47 07/14/20 04:00 98.2 65 20 127/67 (87) 93 07/14/20 03:00 96 High Flow 40.0 100 07/14/20 00:00 98.1 60 20 100/60 (73) 93 07/14/20 00:00 59 07/13/20 23:10 99 High Flow 40.0 100 07/13/20 21:00 Nasal Cannula 40.0 07/13/20 20:00 98 High Flow 40.0 100 07/13/20 20:00 85 07/13/20 20:00 97.4 69 20 112/67 (82) 93 07/13/20 19:00 Nasal Cannula 40.0 07/13/20 16:00 54 07/13/20 16:00 54 07/13/20 16:00 98.6 26 113/62 (79) 95 07/13/20 14:31 99 High Flow 40.0 100 07/13/20 12:00 47 07/13/20 12:00 97.1 65 34 125/67 (86) 91 07/13/20 11:30 96 High Flow 40.0 100 07/13/20 09:00 Nasal Cannula 40.0 07/13/20 08:00 54 07/13/20 08:00 96 High Flow 40.0 100 07/13/20 08:00 97.5 62 40 126/76 (93) 89 Intake and Output 07/13/20 07/14/20 19:00 07:00 Intake Total 1200 ml Output Total 900 ml 1200 ml Balance 300 ml -1200 ml Intake Oral 1200 ml Output Urine Total 900 ml 1200 ml # Voids 3 # Bowel Movements 1 Laboratory Tests 07/13/20 10:05: Arterial Blood pH 7.414, Arterial Blood Partial Pressure CO2 36.8, Arterial Blood Partial Pressure O2 86.8, Arterial Blood HCO3 23.0, Arterial Blood Oxygen Saturation 96.1, Arterial Blood Base Excess -1.1, Jacob Test Positive Height (Feet): 5 Height (Inches): 6.00 Weight (Pounds): 209 Objective General Appearance: WD/WN, alert Cardiovascular: regular rhythm Respiratory/Chest: lungs clear Assessment/Plan Problem List: (1) Coronavirus infection ICD Codes: B34.2 - Coronavirus infection, unspecified SNOMED: [id number] Status: stable, not improved Assessment/Plan: cont steroids titrate o2 MDI cough rx repeat cxr- reviewed- worse pulm eval appreciated pt ok with trying remdesivir. elevated LFTs trending down- probably due to fatty liver guarded Rolando Cherry MD Jul 14, 2020 07:41
[2020-07-14 08:00] VITALS: BP 132/70
[2020-07-14] MEDS: Vitamin B Complex Tab ORAL SCH (08:37)
[2020-07-14] MEDS: Solu-MEDROL 40mg Inj IVP SCH ×2 (08:37→20:02)
[2020-07-14] MEDS: Ascorbic Acid 500mg tab ORAL SCH ×2 (08:37→17:07)
[2020-07-14] MEDS: Enoxaparin 40mg Inj SUBQ SCH (08:40)
[2020-07-14 08:55] LABS: ALANINE AMINOTRANSFERASE 177 U/L (12-78); ALBUMIN 2.7 G/DL (3.4-5.0); ALBUMIN/GLOBULIN RATIO 0.6 (1.0-2.7); ALKALINE PHOSPHATASE 104 U/L (46-116); ANION GAP 11 mmol/L (5-15); ASPARTATE AMINO TRANSFERASE 83 U/L (15-37); BILIRUBIN,TOTAL 0.6 MG/DL (0.2-1.0); BLOOD UREA NITROGEN 22 mg/dL (7-18); CALCIUM 8.6 MG/DL (8.5-10.1); CARBON DIOXIDE 24 MMOL/L (21-32); CHLORIDE 100 MMOL/L (98-107); CREATININE 0.9 MG/DL (0.55-1.30); POTASSIUM 4.1 MMOL/L (3.5-5.1); SODIUM 135 MMOL/L (136-145)
[2020-07-14] MEDS: Vitamin D 1000 units Tab ORAL SCH (09:22)
--- NOTE | 2020-07-14 09:49 | NUR ---
CASE MANAGEMENT:REVIEW 07/14/20 SI: COVID PNA 98.1 58 24 132/70 89-93% HIGH FLOW 40L/100% BUN+22 GLUCOSE+344 IS: IV SOLUMEDROL Q12 LOVENOX SQ QD VIT C PO BID VIT D PO QD DUONEB INH Q2HR PRN : TELEMETRY STATUS DCP; FROM HOME
--- NOTE | 2020-07-14 10:32 | Infectious Diseases Prog Note ---
Assessment/Plan Assessment/Plan A: 1. COVID-19 pneumonia. 2. History of asthma. 3. Elevated liver function tests. 4. Fatty liver PLAN: 1. Unable to start Remdesivir due to elevated liver function tests. 2. He has received one dose of ivermectin. 3. Continue Decadron day 6 4. Continue isolation. 5. We will follow up patient clinically. Subjective ROS Limited/Unobtainable: No Constitutional: Reports: no symptoms Respiratory: Reports: shortness of breath, dry cough Gastrointestinal/Abdominal: Reports: no symptoms Genitourinary: Reports: no symptoms Allergies: Coded Allergies: No Known Allergies (Unverified , 03/08/17) Objective Last 24 Hour Vital Signs Date Time Temp Pulse Resp B/P (MAP) Pulse Ox O2 Delivery O2 Flow Rate FiO2 07/14/20 09:00 Nasal Cannula 40.0 07/14/20 08:00 54 07/14/20 08:00 98.1 58 24 132/70 (90) 89 07/14/20 04:00 47 07/14/20 04:00 98.2 65 20 127/67 (87) 93 07/14/20 03:00 96 High Flow 40.0 100 07/14/20 00:00 98.1 60 20 100/60 (73) 93 07/14/20 00:00 59 07/13/20 23:10 99 High Flow 40.0 100 07/13/20 21:00 Nasal Cannula 40.0 07/13/20 20:00 98 High Flow 40.0 100 07/13/20 20:00 85 07/13/20 20:00 97.4 69 20 112/67 (82) 93 07/13/20 19:00 Nasal Cannula 40.0 07/13/20 16:00 54 07/13/20 16:00 54 07/13/20 16:00 98.6 26 113/62 (79) 95 07/13/20 14:31 99 High Flow 40.0 100 07/13/20 12:00 47 07/13/20 12:00 97.1 65 34 125/67 (86) 91 07/13/20 11:30 96 High Flow 40.0 100 Height (Feet): 5 Height (Inches): 6.00 Weight (Pounds): 209 HEENT: mucous membranes moist Respiratory/Chest: other - oxygen by high flow nasal cannula Cardiovascular: bradycardia Abdomen: soft, non tender Extremities: no edema Neurologic/Psychiatric: alert, oriented x 3, responsive Laboratory Tests Test 07/14/20 07:09 Sodium Level 135 MMOL/L (136-145) L Potassium Level 4.1 MMOL/L (3.5-5.1) Chloride Level 100 MMOL/L (98-107) Carbon Dioxide Level 24 MMOL/L (21-32) Anion Gap 11 mmol/L (5-15) Blood Urea Nitrogen 22 mg/dL (7-18) H Creatinine 0.9 MG/DL (0.55-1.30) Estimat Glomerular Filtration Rate > 60 mL/min (>60) Glucose Level 344 MG/DL (74-106) H Calcium Level 8.6 MG/DL (8.5-10.1) Total Bilirubin 0.6 MG/DL (0.2-1.0) Aspartate Amino Transf (AST/SGOT) 83 U/L (15-37) H Alanine Aminotransferase (ALT/SGPT) 177 U/L (12-78) H Alkaline Phosphatase 104 U/L (46-116) Total Protein 7.4 G/DL (6.4-8.2) Albumin 2.7 G/DL (3.4-5.0) L Globulin 4.7 g/dL Albumin/Globulin Ratio 0.6 (1.0-2.7) L Thyroid Stimulating Hormone (TSH) 0.187 uiU/mL (0.358-3.740) Current Medications Medications (Trade) Dose Ordered Sig/Milagro Route PRN Reason Start Time Stop Time Status Last Admin Dose Admin Acetaminophen (Tylenol) 500 mg Q4H PRN ORAL Mild Pain (Pain Scale 1-3) 07/09/20 21:45 08/08/20 21:44 07/12/20 01:46 Albuterol/ Ipratropium (Combivent Respimat) 2 puff Q2H PRN INH Shortness of Breath 07/09/20 21:45 08/08/20 21:44 07/10/20 21:27 Ascorbic Acid (Vitamin C) 500 mg TWICE A DAY ORAL 07/11/20 09:00 08/10/20 08:59 07/14/20 08:37 Enoxaparin Sodium (Lovenox) 40 mg DAILY SUBQ 07/10/20 09:00 10/08/20 08:59 07/14/20 08:40 Methylprednisolone Sodium Succinate (Solu-MEDROL) 40 mg Q12HR IVP 07/13/20 21:00 07/23/20 21:30 07/14/20 08:37 Ondansetron HCl (Zofran) 4 mg Q6H PRN IVP Nausea & Vomiting 07/09/20 21:45 08/08/20 21:44 Pantoprazole (Protonix) 40 mg DAILY ORAL 07/10/20 09:00 08/09/20 08:59 07/14/20 08:37 Promethazine HCl/ Codeine (Phenergan with Codeine) 5 ml Q4H PRN ORAL For Cough 07/11/20 15:15 08/10/20 15:14 07/14/20 05:04 Vitamin B Complex (Vitamin B Complex) 1 tab DAILY ORAL 07/11/20 09:00 10/09/20 08:59 07/14/20 08:37 Vitamin D (Vitamin D) 1,000 unit DAILY ORAL 07/14/20 09:30 08/13/20 09:29 07/14/20 09:22 Mian Wing MD Jul 14, 2020 10:32
[2020-07-14 12:00] VITALS: BP 113/71
--- NOTE | 2020-07-14 13:05 | NUR ---
NURSE NOTES: Patient was instructed to stay on pron position for 1-2 hours x3 per day. Patient verbalized understanding and followed command. Stated he feels better when he's on pron position.
--- NOTE | 2020-07-14 13:24 | Pulmonology Progress Note ---
Subjective ROS Limited/Unobtainable: No Constitutional: Reports: no symptoms Gastrointestinal/Abdominal: Reports: no symptoms Musculoskeletal: Reports: pain - in body Allergies: Coded Allergies: No Known Allergies (Unverified , 03/08/17) All Systems: reviewed and negative except above Subjective asked to follow still on high oxygen alert Objective Last 24 Hour Vital Signs Date Time Temp Pulse Resp B/P (MAP) Pulse Ox O2 Delivery O2 Flow Rate FiO2 07/14/20 12:00 98.4 83 20 113/71 (85) 95 07/14/20 09:00 Nasal Cannula 40.0 07/14/20 08:00 54 07/14/20 08:00 98.1 58 24 132/70 (90) 89 07/14/20 04:00 47 07/14/20 04:00 98.2 65 20 127/67 (87) 93 07/14/20 03:00 96 High Flow 40.0 100 07/14/20 00:00 98.1 60 20 100/60 (73) 93 07/14/20 00:00 59 07/13/20 23:10 99 High Flow 40.0 100 07/13/20 21:00 Nasal Cannula 40.0 07/13/20 20:00 98 High Flow 40.0 100 07/13/20 20:00 85 07/13/20 20:00 97.4 69 20 112/67 (82) 93 07/13/20 19:00 Nasal Cannula 40.0 07/13/20 16:00 54 07/13/20 16:00 54 07/13/20 16:00 98.6 26 113/62 (79) 95 07/13/20 14:31 99 High Flow 40.0 100 Intake and Output 07/13/20 07/14/20 19:00 07:00 Intake Total 1200 ml Output Total 900 ml 1200 ml Balance 300 ml -1200 ml Intake Oral 1200 ml Output Urine Total 900 ml 1200 ml # Voids 3 # Bowel Movements 1 Objective deferred due to COVID Laboratory Tests 07/14/20 07:09: Sodium Level 135L, Potassium Level 4.1, Chloride Level 100, Carbon Dioxide Level 24, Anion Gap 11, Blood Urea Nitrogen 22H, Creatinine 0.9, Estimat Glomerular Filtration Rate > 60, Glucose Level 344H, Calcium Level 8.6, Total Bilirubin 0.6, Aspartate Amino Transf (AST/SGOT) 83H, Alanine Aminotransferase (ALT/SGPT) 177H, Alkaline Phosphatase 104, Total Protein 7.4, Albumin 2.7L, Globulin 4.7, Albumin/Globulin Ratio 0.6L, Thyroid Stimulating Hormone (TSH) 0.187L Current Medications Medications (Trade) Dose Ordered Sig/Milagro Route PRN Reason Start Time Stop Time Status Last Admin Dose Admin Acetaminophen (Tylenol) 500 mg Q4H PRN ORAL Mild Pain (Pain Scale 1-3) 07/09/20 21:45 08/08/20 21:44 07/12/20 01:46 Albuterol/ Ipratropium (Combivent Respimat) 2 puff Q2H PRN INH Shortness of Breath 07/09/20 21:45 08/08/20 21:44 07/10/20 21:27 Ascorbic Acid (Vitamin C) 500 mg TWICE A DAY ORAL 07/11/20 09:00 08/10/20 08:59 07/14/20 08:37 Enoxaparin Sodium (Lovenox) 40 mg DAILY SUBQ 07/10/20 09:00 10/08/20 08:59 07/14/20 08:40 Methylprednisolone Sodium Succinate (Solu-MEDROL) 40 mg Q12HR IVP 07/13/20 21:00 07/23/20 21:30 07/14/20 08:37 Ondansetron HCl (Zofran) 4 mg Q6H PRN IVP Nausea & Vomiting 07/09/20 21:45 08/08/20 21:44 Pantoprazole (Protonix) 40 mg DAILY ORAL 07/10/20 09:00 08/09/20 08:59 07/14/20 08:37 Promethazine HCl/ Codeine (Phenergan with Codeine) 5 ml Q4H PRN ORAL For Cough 07/11/20 15:15 08/10/20 15:14 07/14/20 05:04 Vitamin B Complex (Vitamin B Complex) 1 tab DAILY ORAL 07/11/20 09:00 10/09/20 08:59 07/14/20 08:37 Vitamin D (Vitamin D) 1,000 unit DAILY ORAL 07/14/20 09:30 08/13/20 09:29 07/14/20 09:22 Assessment/Plan Assessment/Plan acute hypoxemic respiratory failure COVID pneumonia Asthma elevated liver enzymes PLAN monitor imaging monitor ABG and changes decadron respiratory care ID noted DVT prophylaxis taper oxygen as able monitor respiratory status for change impression, plan, and exam edited and reviewed in detail care discussed with Elfego Rutherford MD Jul 14, 2020 13:24
[2020-07-14 16:00] VITALS: BP 110/62
--- NOTE | 2020-07-14 19:24 | NUR ---
NURSE HAND-OFF REPORT: Important Events on Shift:N/A Patient Status: Stable Diet: Regular Pending Orders: N/A Pending Results/Labs:N/A Pending MD notification:N/A Latest Vital Signs: Temperature 98.1 , Pulse 64 , B/P 110 /62 , Respiratory Rate 22 , O2 SAT 93 , Nasal Cannula, O2 Flow Rate 40.0 . Vital Sign Comment: Stable EKG Rhythm: Sinus Rhythm Rhythm change?: N MD Notified?: Ildefonso Cherry MD Response: Latest Bradley Fall Score: 30 Fall Risk: Medium Risk Safety Measures: Call light Within Reach, Bed Alarm Zone 2, Side Rails Side Rails x2, Bed position Low and Locked. Fall Precautions: Yellow Socks Yellow Gown Door Sign Patient Fall Education Report given to Uma/RN.
--- NOTE | 2020-07-14 19:25 | NUR ---
NURSE NOTES: Patient received from ELIER Perkins. Patient is awake, alert and oriented x 4. Patient is currently watching TV. Patient is able to verbalize his needs, asking for cough syrup. Will tend to his needs. Patient is on high flow oxygen NC at 40 L with 100% FiO2. Patient has a urinal in bed, patient is noted to be able to ambulate. Patient has a 24 gauge IV on his right hand, patent and flushed. Bed is in the lowest position and locked, call light within reach. Will continue to monitor.
[2020-07-14 20:00] VITALS: BP 114/65
[2020-07-15] VITALS: BP 130/82
--- NOTE | 2020-07-15 00:04 | Cardiology Progress Note ---
Subjective DATE OF SERVICE: Jul 14, 2020 Remains with episodes of hypoxia. Still with sinus bradycardia in the 40's. No hemodynamically significant pauses. No LOC or syncope. Objective Last 24 Hour Vital Signs Date Time Temp Pulse Resp B/P (MAP) Pulse Ox O2 Delivery O2 Flow Rate FiO2 07/14/20 23:00 Nasal Cannula 40.0 07/14/20 22:49 94 High Flow 40.0 100 07/14/20 20:08 95 High Flow 40.0 100 07/14/20 20:00 70 07/14/20 20:00 97.9 65 22 114/65 (81) 93 07/14/20 16:00 64 07/14/20 16:00 98.1 64 22 110/62 (78) 93 07/14/20 15:30 95 High Flow 40.0 100 07/14/20 12:00 47 07/14/20 12:00 98.4 83 20 113/71 (85) 95 07/14/20 11:30 95 High Flow 40.0 100 07/14/20 09:00 Nasal Cannula 40.0 07/14/20 08:00 54 07/14/20 08:00 98.1 58 24 132/70 (90) 89 07/14/20 07:30 93 High Flow 40.0 100 07/14/20 04:00 47 07/14/20 04:00 98.2 65 20 127/67 (87) 93 07/14/20 03:00 96 High Flow 40.0 100 07/14/20 00:00 98.1 60 20 100/60 (73) 93 07/14/20 00:00 59 HEENT: normal ENT inspection RHYTHM: SB LUNGS: bilateral rhonchi CARDIAC: regular rhythm, normal S1 and S2, bradycardia ABDOMEN: normal bowel sounds, non tender, soft EXTREMITIES: normal range of motion, non-tender Laboratory Tests Test 07/14/20 07:09 Sodium Level 135 MMOL/L (136-145) L Potassium Level 4.1 MMOL/L (3.5-5.1) Chloride Level 100 MMOL/L (98-107) Carbon Dioxide Level 24 MMOL/L (21-32) Anion Gap 11 mmol/L (5-15) Blood Urea Nitrogen 22 mg/dL (7-18) H Creatinine 0.9 MG/DL (0.55-1.30) Estimat Glomerular Filtration Rate > 60 mL/min (>60) Glucose Level 344 MG/DL (74-106) H Calcium Level 8.6 MG/DL (8.5-10.1) Total Bilirubin 0.6 MG/DL (0.2-1.0) Aspartate Amino Transf (AST/SGOT) 83 U/L (15-37) H Alanine Aminotransferase (ALT/SGPT) 177 U/L (12-78) H Alkaline Phosphatase 104 U/L (46-116) Total Protein 7.4 G/DL (6.4-8.2) Albumin 2.7 G/DL (3.4-5.0) L Globulin 4.7 g/dL Albumin/Globulin Ratio 0.6 (1.0-2.7) L Thyroid Stimulating Hormone (TSH) 0.187 uiU/mL (0.358-3.740) Assessment/Plan Assessment/Plan Covid 19 PNA Hypoxia Sinus bradycardia Diabetes mellitus with hyperglycemia due to steroids Transaminitis Mod protein/calorie malnutrition Atropine at bedside No urgent indication for pacing Continuous cardiac monitoring Anticoagulation and steroid rx Titrate oxygen Anti-viral rx Protein suppl Insulin cov'g by Chuck Mishra MD Jul 15, 2020 00:04
[2020-07-15 04:00] VITALS: BP 105/51
[2020-07-15] MEDS ORDERED: NovoLOG Insulin Flexpen SUBQ SCH (06:30)
[2020-07-15] MEDS: NovoLOG Insulin Flexpen SUBQ SCH ×4 (07:04→20:12)
--- NOTE | 2020-07-15 07:20 | NUR ---
NURSE HAND-OFF REPORT: Important Events on Shift:[Patient oxygen saturation level at 96% with high flow nasal cannula. Patient blood glucose level at 375, insulin given.] Patient Status: [Stable] Diet: [Regular diet] Pending Orders: [] Pending Results/Labs:[] Pending MD notification:[] Latest Vital Signs: Temperature 98.2 , Pulse 61 , B/P 105 /51 , Respiratory Rate 22 , O2 SAT 93 , Nasal Cannula, O2 Flow Rate 50.0 . Vital Sign Comment: [] EKG Rhythm: Sinus Rhythm Rhythm change?: N MD Notified?: Ildefonso Cherry MD Response: Latest Bradley Fall Score: 30 Fall Risk: Medium Risk Safety Measures: Call light Within Reach, Bed Alarm Zone 2, Side Rails Side Rails x2, Bed position Low and Locked. Fall Precautions: Yellow Socks Yellow Gown Door Sign Patient Fall Education Report given to [ELIER Marquez].
[2020-07-15 08:00] VITALS: BP 102/61
--- NOTE | 2020-07-15 08:12 | NUR ---
NURSE NOTES: Received report from Uma/RN. Pt sleeping, in semi-fowlers position. On 40L high flow nasal cannula, no distress or SOB noted. Pr cardiac rhythm is SB in the high 40s. IV on right hand 24G SL, patent and clean. Bed in lowest position and locked. Call light within reach, encouraged to use it when needed. Side rails up X3. Will continue plan of care.
[2020-07-15] MEDS: Ascorbic Acid 500mg tab ORAL SCH ×2 (08:45→18:25)
[2020-07-15] MEDS: Vitamin D 1000 units Tab ORAL SCH (08:45)
[2020-07-15] MEDS: Vitamin B Complex Tab ORAL SCH (08:45)
[2020-07-15] MEDS: Solu-MEDROL 40mg Inj IVP SCH ×2 (08:45→20:13)
[2020-07-15] MEDS: Enoxaparin 40mg Inj SUBQ SCH (08:46)
--- NOTE | 2020-07-15 09:27 | NUR ---
CASE MANAGEMENT:REVIEW 07/15/20 SI: COVID PNA 97.7 53 22 105/51 93% HIGH FLOW 50L/100% IS: IV SOLUMEDROL Q12 LOVENOX SQ QD VIT C PO BID VIT D PO QD DUONEB INH Q2HR PRN : TELEMETRY STATUS DCP; FROM HOME
--- NOTE | 2020-07-15 09:33 | Pulmonology Progress Note ---
Subjective ROS Limited/Unobtainable: No Constitutional: Reports: no symptoms Gastrointestinal/Abdominal: Reports: no symptoms Musculoskeletal: Reports: pain - in body Allergies: Coded Allergies: No Known Allergies (Unverified , 03/08/17) All Systems: reviewed and negative except above Subjective still on high oxygen alert Objective Last 24 Hour Vital Signs Date Time Temp Pulse Resp B/P (MAP) Pulse Ox O2 Delivery O2 Flow Rate FiO2 07/15/20 08:00 97.7 75 20 102/61 (75) 94 07/15/20 04:00 98.2 61 22 105/51 (69) 93 07/15/20 04:00 53 07/15/20 03:26 95 High Flow 50.0 100 07/15/20 00:00 98.4 62 20 130/82 (98) 93 07/15/20 00:00 46 07/14/20 23:00 Nasal Cannula 40.0 07/14/20 22:49 94 High Flow 40.0 100 07/14/20 20:08 95 High Flow 40.0 100 07/14/20 20:00 70 07/14/20 20:00 97.9 65 22 114/65 (81) 93 07/14/20 16:00 64 07/14/20 16:00 98.1 64 22 110/62 (78) 93 07/14/20 15:30 95 High Flow 40.0 100 07/14/20 12:00 47 07/14/20 12:00 98.4 83 20 113/71 (85) 95 07/14/20 11:30 95 High Flow 40.0 100 Intake and Output 07/14/20 07/15/20 19:00 07:00 Intake Total 1800 ml 1000 ml Output Total 1600 ml 800 ml Balance 200 ml 200 ml Intake Oral 1800 ml 1000 ml Output Urine Total 1600 ml 800 ml # Voids 2 2 # Bowel Movements 1 Objective deferred due to COVID Current Medications Medications (Trade) Dose Ordered Sig/Milagro Route PRN Reason Start Time Stop Time Status Last Admin Dose Admin Acetaminophen (Tylenol) 500 mg Q4H PRN ORAL Mild Pain (Pain Scale 1-3) 07/09/20 21:45 08/08/20 21:44 07/12/20 01:46 Albuterol/ Ipratropium (Combivent Respimat) 2 puff Q2H PRN INH Shortness of Breath 07/09/20 21:45 08/08/20 21:44 07/10/20 21:27 Ascorbic Acid (Vitamin C) 500 mg TWICE A DAY ORAL 07/11/20 09:00 08/10/20 08:59 07/15/20 08:45 Dextrose (Dextrose 50%) 25 ml Q30M PRN IV Hypoglycemia 07/15/20 00:00 10/13/20 00:00 Dextrose (Dextrose 50%) 50 ml Q30M PRN IV Hypoglycemia 07/15/20 00:00 10/13/20 00:00 Enoxaparin Sodium (Lovenox) 40 mg DAILY SUBQ 07/10/20 09:00 10/08/20 08:59 07/15/20 08:46 Insulin Aspart (NovoLOG) BEFORE MEALS AND HS SUBQ 07/15/20 06:30 10/13/20 06:29 07/15/20 07:04 Methylprednisolone Sodium Succinate (Solu-MEDROL) 40 mg Q12HR IVP 07/13/20 21:00 07/23/20 21:30 07/15/20 08:45 Ondansetron HCl (Zofran) 4 mg Q6H PRN IVP Nausea & Vomiting 07/09/20 21:45 08/08/20 21:44 Pantoprazole (Protonix) 40 mg DAILY ORAL 07/10/20 09:00 08/09/20 08:59 07/15/20 08:45 Promethazine HCl/ Codeine (Phenergan with Codeine) 5 ml Q4H PRN ORAL For Cough 07/11/20 15:15 08/10/20 15:14 07/14/20 20:02 Vitamin B Complex (Vitamin B Complex) 1 tab DAILY ORAL 07/11/20 09:00 10/09/20 08:59 07/15/20 08:45 Vitamin D (Vitamin D) 1,000 unit DAILY ORAL 07/14/20 09:30 08/13/20 09:29 07/15/20 08:45 Assessment/Plan Assessment/Plan acute hypoxemic respiratory failure COVID pneumonia Asthma elevated liver enzymes PLAN monitor imaging monitor ABG and changes decadron respiratory care ID noted DVT prophylaxis taper oxygen as able monitor respiratory status for change impression, plan, and exam edited and reviewed in detail care discussed with Elfego Rutherford MD Jul 15, 2020 09:33
--- NOTE | 2020-07-15 10:38 | Infectious Diseases Prog Note ---
Assessment/Plan Assessment/Plan antibiotics : none A 1. COVID-19 pneumonia on 40 liters of oxygen with O2 saturation 94 %. s/p ivermectin 2. History of asthma. 3. Elevated liver function tests improving PLAN: 1. Continue solumedrol 2. Continue isolation. 3. We will follow up patient clinically Subjective Constitutional: Denies: fever, chills Respiratory: Reports: shortness of breath - decreased, dry cough - decreased Gastrointestinal/Abdominal: Denies: nausea, vomiting, diarrhea Musculoskeletal: Denies: pain Allergies: Coded Allergies: No Known Allergies (Unverified , 03/08/17) Objective Last 24 Hour Vital Signs Date Time Temp Pulse Resp B/P (MAP) Pulse Ox O2 Delivery O2 Flow Rate FiO2 07/15/20 08:00 63 07/15/20 08:00 97.7 75 20 102/61 (75) 94 07/15/20 04:00 98.2 61 22 105/51 (69) 93 07/15/20 04:00 53 07/15/20 03:26 95 High Flow 50.0 100 07/15/20 00:00 98.4 62 20 130/82 (98) 93 07/15/20 00:00 46 07/14/20 23:00 Nasal Cannula 40.0 07/14/20 22:49 94 High Flow 40.0 100 07/14/20 20:08 95 High Flow 40.0 100 07/14/20 20:00 70 07/14/20 20:00 97.9 65 22 114/65 (81) 93 07/14/20 16:00 64 07/14/20 16:00 98.1 64 22 110/62 (78) 93 07/14/20 15:30 95 High Flow 40.0 100 07/14/20 12:00 47 07/14/20 12:00 98.4 83 20 113/71 (85) 95 07/14/20 11:30 95 High Flow 40.0 100 Height (Feet): 5 Height (Inches): 6.00 Weight (Pounds): 209 Current Medications Medications (Trade) Dose Ordered Sig/Milagro Route PRN Reason Start Time Stop Time Status Last Admin Dose Admin Acetaminophen (Tylenol) 500 mg Q4H PRN ORAL Mild Pain (Pain Scale 1-3) 07/09/20 21:45 08/08/20 21:44 07/12/20 01:46 Albuterol/ Ipratropium (Combivent Respimat) 2 puff Q2H PRN INH Shortness of Breath 07/09/20 21:45 08/08/20 21:44 07/10/20 21:27 Ascorbic Acid (Vitamin C) 500 mg TWICE A DAY ORAL 07/11/20 09:00 08/10/20 08:59 07/15/20 08:45 Dextrose (Dextrose 50%) 25 ml Q30M PRN IV Hypoglycemia 07/15/20 00:00 10/13/20 00:00 Dextrose (Dextrose 50%) 50 ml Q30M PRN IV Hypoglycemia 07/15/20 00:00 10/13/20 00:00 Enoxaparin Sodium (Lovenox) 40 mg DAILY SUBQ 07/10/20 09:00 10/08/20 08:59 07/15/20 08:46 Insulin Aspart (NovoLOG) BEFORE MEALS AND HS SUBQ 07/15/20 06:30 10/13/20 06:29 07/15/20 07:04 Methylprednisolone Sodium Succinate (Solu-MEDROL) 40 mg Q12HR IVP 07/13/20 21:00 07/23/20 21:30 07/15/20 08:45 Ondansetron HCl (Zofran) 4 mg Q6H PRN IVP Nausea & Vomiting 07/09/20 21:45 08/08/20 21:44 Pantoprazole (Protonix) 40 mg DAILY ORAL 07/10/20 09:00 08/09/20 08:59 07/15/20 08:45 Promethazine HCl/ Codeine (Phenergan with Codeine) 5 ml Q4H PRN ORAL For Cough 07/11/20 15:15 08/10/20 15:14 07/14/20 20:02 Vitamin B Complex (Vitamin B Complex) 1 tab DAILY ORAL 07/11/20 09:00 10/09/20 08:59 07/15/20 08:45 Vitamin D (Vitamin D) 1,000 unit DAILY ORAL 07/14/20 09:30 08/13/20 09:29 07/15/20 08:45 Jose Alberto MD Jul 15, 2020 10:38
--- NOTE | 2020-07-15 11:48 | NUR ---
RD ASSESSMENT & RECOMMENDATIONS SEE CARE ACTIVITY FOR COMPLETE ASSESSMENT DAILY ESTIMATED NEEDS: Needs based on [id number] abw 25-30 kcals/kg 0223-0133 total kcals 1-1.5 g protein/kg 72-108 g total protein 25-30 mL/kg 6828-5653 total fluid mLs NUTRITION DIAGNOSIS: Altered nutrition related lab values r/t hyperglycemia as evidenced by BG 243-344, POC 357. CURRENT DIET: Regular PO DIET RECOMMENDATIONS--->>> CCHO LOW DIET + DOUBLE PROTEIN PORTIONS ADDITIONAL RECOMMENDATIONS: 1) Rec to check HgA1C for eval 2) Insulin regimen for improved BG Diet change rec as above 3) Monitor resp status, currently on high flow O2 w/ good po intake
[2020-07-15 12:00] VITALS: BP 124/73
--- NOTE | 2020-07-15 13:00 | Consultation ---
DATE OF CONSULTATION: 07/13/2020 CARDIOLOGY CONSULTATION CONSULTING PHYSICIAN: Chuck Swain MD REFERRING PHYSICIAN: Rolando Cherry MD REASON FOR CONSULTATION: Bradycardia. HISTORY OF PRESENT ILLNESS: This 30-year-old male was diagnosed with COVID-19 pneumonia around 07/02/2020 of this year. He was hospitalized on 07/09/2020 when he developed worsening shortness of breath and hypoxia. On admission, he had a chest radiograph revealing bilateral infiltrates. Over the course of the last few days, his condition has worsened with worsening hypoxia and episodes of sinus bradycardia in the 50s. PAST MEDICAL HISTORY: Unremarkable. MEDICATIONS: Reviewed. ALLERGIES: None known. SOCIAL HISTORY: Negative for smoking, alcohol, or substance abuse. PHYSICAL EXAMINATION: Limited due to COVID-19 infection. VITAL SIGNS: Blood pressure 113/62, heart rate 54, respiratory rate 26, afebrile, saturating 91 to 99% on a high-flow 40% mask. EKG, sinus bradycardia, incomplete right bundle-branch block. On admission, EKG revealed sinus rhythm with incomplete right bundle-branch block. Blood gas today 7.41, 37, 87. IMPRESSION: 1. COVID-19 pneumonia. 2. Acute hypoxic respiratory failure. 3. Transaminitis. 4. Sinus bradycardia, likely due to respiratory compromise. PLAN: 1. Full anticoagulation. 2. Steroids and antivirals per Infectious Disease applications development consultant. 3. Continuous cardiac monitoring. 4. Check thyroid panel. 5. Atropine intravenous push p.r.n. for symptomatic sustained bradycardia. Chuck Swain M.D. DR: ADARSH JOB#: [id number] CC:
--- NOTE | 2020-07-15 13:16 | NUR ---
NURSE NOTES: Called Dr Cherry to let him know Patient's blood sugar was 403. Waiting for a call back.
[2020-07-15 16:00] VITALS: BP 121/76
--- NOTE | 2020-07-15 19:08 | NUR ---
NURSE HAND-OFF REPORT: Important Events on Shift:Pt continues on high flow nasal canula 50L 100 Fio2. Patient Status: Stable Diet: Cardiac Pending Orders: Pending Results/Labs: Pending MD notification: Latest Vital Signs: Temperature 97.9 , Pulse 75 , B/P 121 /76 , Respiratory Rate 20 , O2 SAT 94 , Nasal Cannula, O2 Flow Rate 55.0 . Vital Sign Comment: Stable EKG Rhythm: Sinus Rhythm Rhythm change?: N MD Notified?: Ildefonso Cherry MD Response: Latest Bradley Fall Score: 30 Fall Risk: Medium Risk Safety Measures: Call light Within Reach, Bed Alarm Zone 2, Side Rails Side Rails x2, Bed position Low and Locked. Fall Precautions: Yellow Socks Yellow Gown Door Sign Patient Fall Education Report given to Uma/RN.
--- NOTE | 2020-07-15 19:30 | NUR ---
NURSE NOTES: Patient received from ELIER Marquez. Patient is awake, alert and oriented x 4. Patient is watching TV and able to verbalize his needs. Patient has no complaints as of the moment. Patient is on high flow oxygen nasal cannula at 50 L with no signs of acute respiratory distress noted. Patient has a urinal in bed and able to ambulate. Patient has a right 24 gauge on his hand, patent and flushed. Bed is in the lowest position and locked, call light within reach. Will continue to monitor.
[2020-07-15 20:00] VITALS: BP 122/68
[2020-07-15] MEDS: Promethazine/Codeine 5ml UD ORAL PRN (22:21)
--- NOTE | 2020-07-15 23:53 | Cardiology Progress Note ---
Subjective DATE OF SERVICE: Jul 15, 2020 Remains with episodes of hypoxia; on high flow oxygen. Still with sinus bradycardia in the 40's. No pauses. No LOC or syncope. Objective Last 24 Hour Vital Signs Date Time Temp Pulse Resp B/P (MAP) Pulse Ox O2 Delivery O2 Flow Rate FiO2 07/15/20 21:53 95 High Flow 55.0 100 07/15/20 21:00 High Flow O2 50.0 07/15/20 20:00 97.9 70 19 122/68 (86) 95 07/15/20 20:00 83 07/15/20 16:00 97.9 63 20 121/76 (91) 94 07/15/20 16:00 75 07/15/20 15:28 95 High Flow 55.0 100 07/15/20 12:00 78 07/15/20 12:00 98.3 57 20 124/73 (90) 90 07/15/20 11:29 94 High Flow 50.0 100 07/15/20 09:00 High Flow O2 50.0 07/15/20 08:00 63 07/15/20 08:00 97.7 75 20 102/61 (75) 94 07/15/20 07:42 94 High Flow 50.0 100 07/15/20 04:00 98.2 61 22 105/51 (69) 93 07/15/20 04:00 53 07/15/20 03:26 95 High Flow 50.0 100 07/15/20 00:00 98.4 62 20 130/82 (98) 93 07/15/20 00:00 46 HEENT: normal ENT inspection RHYTHM: SB LUNGS: bilateral rhonchi CARDIAC: regular rhythm, normal S1 and S2, bradycardia ABDOMEN: normal bowel sounds, non tender, soft EXTREMITIES: normal range of motion, non-tender Laboratory Tests Test 07/15/20 16:21 07/15/20 20:09 POC Whole Blood Glucose 355 MG/DL (74-106) H Pending Assessment/Plan Assessment/Plan Covid 19 PNA Hypoxia Sinus bradycardia Diabetes mellitus with hyperglycemia due to steroids Transaminitis Mod protein/calorie malnutrition Atropine at bedside No urgent indication for pacing; can place external pacer if symptomatic. Continuous cardiac monitoring Anticoagulation and steroid rx Titrate oxygen Anti-viral rx Protein suppl Insulin cov'g by Chuck Mishra MD Jul 15, 2020 23:53
[2020-07-16] VITALS: BP 113/53
[2020-07-16 04:00] VITALS: BP 122/68
[2020-07-16] MEDS: NovoLOG Insulin Flexpen SUBQ SCH ×4 (05:57→20:45)
--- NOTE | 2020-07-16 07:15 | NUR ---
NURSE HAND-OFF REPORT: Important Events on Shift:[Patient's blood sugar remains high. insulin given.] Patient Status: [Stable] Diet: [regular diet] Pending Orders: [] Pending Results/Labs:[] Pending MD notification:[] Latest Vital Signs: Temperature 98.4 , Pulse 46 , B/P 122 /68 , Respiratory Rate 18 , O2 SAT 94 , Nasal Cannula, O2 Flow Rate 55.0 . Vital Sign Comment: [] EKG Rhythm: Sinus Bradycardia Rhythm change?: N Notified?: N -Dr. Jo Ann METCALF Response: Latest Bradley Fall Score: 30 Fall Risk: Medium Risk Safety Measures: Call light Within Reach, Bed Alarm Zone 2, Side Rails Side Rails x2, Bed position Low and Locked. Fall Precautions: Yellow Socks Yellow Gown Door Sign Patient Fall Education Report given to [ELIER Marquez].
--- NOTE | 2020-07-16 07:17 | NUR ---
NURSE NOTES: Received report from Uma/RN. Pt sleeping, in semi-fowlers position. On 40L high flow nasal cannula, no distress or SOB noted. Pr cardiac rhythm during the night was SB in the high 40s. IV on right hand 24G SL, patent and clean. Latest blood sugar 352, Dr Cherry is aware. Bed in lowest position and locked. Call light within reach, encouraged to use it when needed. Side rails up X2. Will continue plan of care.
[2020-07-16 08:00] VITALS: BP 123/65
[2020-07-16] MEDS: Vitamin B Complex Tab ORAL SCH (08:15)
[2020-07-16] MEDS: Vitamin D 1000 units Tab ORAL SCH (08:15)
[2020-07-16] MEDS: Ascorbic Acid 500mg tab ORAL SCH ×2 (08:15→17:22)
[2020-07-16] MEDS: Solu-MEDROL 40mg Inj IVP SCH ×2 (08:16→20:33)
[2020-07-16] MEDS: Enoxaparin 40mg Inj SUBQ SCH (08:17)
--- NOTE | 2020-07-16 08:51 | General Progress Note ---
Subjective ROS Limited/Unobtainable: No Constitutional: Reports: malaise, weakness HEENT: Reports: no symptoms Cardiovascular: Reports: no symptoms Respiratory: Reports: cough, shortness of breath Gastrointestinal/Abdominal: Reports: no symptoms Genitourinary: Reports: no symptoms Neurologic/Psychiatric: Reports: no symptoms Endocrine: Reports: no symptoms Hematologic/Lymphatic: Reports: no symptoms Allergies: Coded Allergies: No Known Allergies (Unverified , 03/08/17) All Systems: reviewed and negative except above Subjective stable. no new complaints. on high flow o2 100% 40L. intermittent bradycardia per pt feels "a little better." Objective Last 24 Hour Vital Signs Date Time Temp Pulse Resp B/P (MAP) Pulse Ox O2 Delivery O2 Flow Rate FiO2 07/16/20 08:00 98.1 53 20 123/65 (84) 93 07/16/20 04:00 98.4 64 18 122/68 (86) 94 07/16/20 04:00 46 07/16/20 03:39 93 High Flow 55.0 100 07/16/20 00:00 54 07/16/20 00:00 98.9 56 20 113/53 (73) 94 07/15/20 23:00 94 High Flow 55.0 100 07/15/20 21:53 95 High Flow 55.0 100 07/15/20 21:00 High Flow O2 50.0 07/15/20 20:00 97.9 70 19 122/68 (86) 95 07/15/20 20:00 83 07/15/20 16:00 97.9 63 20 121/76 (91) 94 07/15/20 16:00 75 07/15/20 15:28 95 High Flow 55.0 100 07/15/20 12:00 78 07/15/20 12:00 98.3 57 20 124/73 (90) 90 07/15/20 11:29 94 High Flow 50.0 100 07/15/20 09:00 High Flow O2 50.0 Intake and Output 07/15/20 07/16/20 19:00 07:00 Intake Total 1200 ml 800 ml Output Total 1600 ml 750 ml Balance -400 ml 50 ml Intake Oral 1200 ml 800 ml Output Urine Total 1600 ml 750 ml # Voids 2 2 # Bowel Movements 2 1 Laboratory Tests 07/15/20 16:21: POC Whole Blood Glucose 355H 07/15/20 20:09: POC Whole Blood Glucose [Pending] 07/16/20 05:54: POC Whole Blood Glucose [Pending] Height (Feet): 5 Height (Inches): 6.00 Weight (Pounds): 209 Objective General Appearance: WD/WN, alert Cardiovascular: regular rhythm Respiratory/Chest: lungs clear Assessment/Plan Problem List: (1) Coronavirus infection ICD Codes: B34.2 - Coronavirus infection, unspecified SNOMED: 656087971 Status: stable, not improved Assessment/Plan: cont steroids titrate o2 MDI cough rx repeat cxr- reviewed- worse pulm eval appreciated pt ok with trying remdesivir. elevated LFTs trending down- probably due to fatty liver [facility] Rol[facility] MD Jul 16, 2020 08:51
[2020-07-16] MEDS: Levemir Flexpen SUBQ SCH ×2 (09:56→17:22)
[2020-07-16 12:00] VITALS: BP 120/67
[2020-07-16 16:00] VITALS: BP 120/71
--- NOTE | 2020-07-16 18:37 | Pulmonology Progress Note ---
Subjective ROS Limited/Unobtainable: No Constitutional: Denies: fever, chills Gastrointestinal/Abdominal: Denies: nausea, vomiting, diarrhea Musculoskeletal: Denies: pain Allergies: Coded Allergies: No Known Allergies (Unverified , 03/08/17) All Systems: reviewed and negative except above Subjective still on high oxygen alert Objective Last 24 Hour Vital Signs Date Time Temp Pulse Resp B/P (MAP) Pulse Ox O2 Delivery O2 Flow Rate FiO2 07/16/20 16:00 97.6 65 20 120/71 (87) 94 07/16/20 16:00 54 07/16/20 15:00 95 High Flow 55.0 100 07/16/20 12:00 97.7 59 20 120/67 (84) 91 07/16/20 12:00 54 07/16/20 11:00 93 High Flow 55.0 100 07/16/20 09:00 High Flow O2 50.0 07/16/20 08:00 48 07/16/20 08:00 98.1 53 20 123/65 (84) 93 07/16/20 07:05 94 High Flow 55.0 100 07/16/20 04:00 98.4 64 18 122/68 (86) 94 07/16/20 04:00 46 07/16/20 03:39 93 High Flow 55.0 100 07/16/20 00:00 54 07/16/20 00:00 98.9 56 20 113/53 (73) 94 07/15/20 23:00 94 High Flow 55.0 100 07/15/20 21:53 95 High Flow 55.0 100 07/15/20 21:00 High Flow O2 50.0 07/15/20 20:00 97.9 70 19 122/68 (86) 95 07/15/20 20:00 83 Intake and Output 07/15/20 07/16/20 19:00 07:00 Intake Total 1200 ml 800 ml Output Total 1600 ml 750 ml Balance -400 ml 50 ml Intake Oral 1200 ml 800 ml Output Urine Total 1600 ml 750 ml # Voids 2 2 # Bowel Movements 2 1 Objective deferred due to COVID Laboratory Tests 07/15/20 20:09: POC Whole Blood Glucose [Pending] 07/16/20 05:54: POC Whole Blood Glucose [Pending] 07/16/20 11:36: POC Whole Blood Glucose 343H Current Medications Medications (Trade) Dose Ordered Sig/Milagro Route PRN Reason Start Time Stop Time Status Last Admin Dose Admin Acetaminophen (Tylenol) 500 mg Q4H PRN ORAL Mild Pain (Pain Scale 1-3) 07/09/20 21:45 08/08/20 21:44 07/12/20 01:46 Albuterol/ Ipratropium (Combivent Respimat) 2 puff Q2H PRN INH Shortness of Breath 07/09/20 21:45 08/08/20 21:44 07/10/20 21:27 Ascorbic Acid (Vitamin C) 500 mg TWICE A DAY ORAL 07/11/20 09:00 08/10/20 08:59 07/16/20 17:22 Dextrose (Dextrose 50%) 25 ml Q30M PRN IV Hypoglycemia 07/15/20 00:00 10/13/20 00:00 Dextrose (Dextrose 50%) 50 ml Q30M PRN IV Hypoglycemia 07/15/20 00:00 10/13/20 00:00 Enoxaparin Sodium (Lovenox) 40 mg DAILY SUBQ 07/10/20 09:00 10/08/20 08:59 07/16/20 08:17 Insulin Aspart (NovoLOG) BEFORE MEALS AND HS SUBQ 07/15/20 06:30 10/13/20 06:29 07/16/20 16:49 Insulin Detemir (Levemir) 6 units BID SUBQ 07/16/20 10:00 10/14/20 09:59 07/16/20 17:22 Methylprednisolone Sodium Succinate (Solu-MEDROL) 40 mg Q12HR IVP 07/13/20 21:00 07/23/20 21:30 07/16/20 08:16 Ondansetron HCl (Zofran) 4 mg Q6H PRN IVP Nausea & Vomiting 07/09/20 21:45 08/08/20 21:44 Pantoprazole (Protonix) 40 mg DAILY ORAL 07/10/20 09:00 08/09/20 08:59 07/16/20 08:15 Promethazine HCl/ Codeine (Phenergan with Codeine) 5 ml Q4H PRN ORAL For Cough 07/11/20 15:15 08/10/20 15:14 12/18/20 22:21 Vitamin B Complex (Vitamin B Complex) 1 tab DAILY ORAL 07/11/20 09:00 10/09/20 08:59 07/16/20 08:15 Vitamin D (Vitamin D) 1,000 unit DAILY ORAL 07/14/20 09:30 08/13/20 09:29 07/16/20 08:15 Assessment/Plan Assessment/Plan acute hypoxemic respiratory failure COVID pneumonia Asthma elevated liver enzymes PLAN monitor imaging monitor ABG and changes decadron respiratory care ID noted DVT prophylaxis taper oxygen as able monitor respiratory status for change impression, plan, and exam edited and reviewed in detail care discussed with Elfego Rutherford MD Jul 16, 2020 18:36
--- NOTE | 2020-07-16 19:20 | NUR ---
NURSE NOTES: RECEIVED REPORT FROM ELIER WALDROP. PT IN BED. AWAKE, A/OX4, ABLE TO MAKE NEEDS KNOWN. ON HIGH FLOW NC 50L/MIN WITH FIO2 100% SATING AT 93%. 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 NO C/O PAIN. IV ON RIGHT HAND 22G SALINE LOCKED. BED IN LOW POSITION & LOCKED. SIDE RAILS UP X2. BED ALARM ON. CALL LIGHT WITH IN REACH. CONTINUE PLAN OF CARE.
--- NOTE | 2020-07-16 19:22 | NUR ---
NURSE HAND-OFF REPORT: Important Events on Shift: Patient Status: Stable Diet: CCHO (medium) Pending Orders: Pending Results/Labs: Pending MD notification: Latest Vital Signs: Temperature 97.6 , Pulse 54 , B/P 120 /71 , Respiratory Rate 20 , O2 SAT 93 , Nasal Cannula, O2 Flow Rate 55.0 . Vital Sign Comment: Stable EKG Rhythm: Sinus Bradycardia Rhythm change?: N MD Notified?: N Steve Cherry MD Response: Latest Bradley Fall Score: 30 Fall Risk: Medium Risk Safety Measures: Call light Within Reach, Bed Alarm Zone 2, Side Rails Side Rails x2, Bed position Low and Locked. Fall Precautions: Yellow Socks Yellow Gown Door Sign Patient Fall Education Report given to Nimisha/RN.
--- NOTE | 2020-07-16 19:42 | Cardiology Progress Note ---
Subjective DATE OF SERVICE: Jul 16, 2020 Remains with episodes of hypoxia; on high flow oxygen. Still with asymptomatic sinus bradycardia in the 40's at times. No pauses. No LOC or syncope. Objective Last 24 Hour Vital Signs Date Time Temp Pulse Resp B/P (MAP) Pulse Ox O2 Delivery O2 Flow Rate FiO2 07/16/20 19:06 93 High Flow 55.0 100 07/16/20 16:00 97.6 65 20 120/71 (87) 94 07/16/20 16:00 54 07/16/20 15:00 95 High Flow 55.0 100 07/16/20 12:00 97.7 59 20 120/67 (84) 91 07/16/20 12:00 54 07/16/20 11:00 93 High Flow 55.0 100 07/16/20 09:00 High Flow O2 50.0 07/16/20 08:00 48 07/16/20 08:00 98.1 53 20 123/65 (84) 93 07/16/20 07:05 94 High Flow 55.0 100 07/16/20 04:00 98.4 64 18 122/68 (86) 94 07/16/20 04:00 46 07/16/20 03:39 93 High Flow 55.0 100 07/16/20 00:00 54 07/16/20 00:00 98.9 56 20 113/53 (73) 94 07/15/20 23:00 94 High Flow 55.0 100 07/15/20 21:53 95 High Flow 55.0 100 07/15/20 21:00 High Flow O2 50.0 07/15/20 20:00 97.9 70 19 122/68 (86) 95 07/15/20 20:00 83 HEENT: normal ENT inspection RHYTHM: SB LUNGS: bilateral rhonchi CARDIAC: regular rhythm, normal S1 and S2, bradycardia ABDOMEN: normal bowel sounds, non tender, soft EXTREMITIES: normal range of motion, non-tender Laboratory Tests Test 07/15/20 20:09 07/16/20 05:54 07/16/20 11:36 POC Whole Blood Glucose Pending Pending 343 MG/DL (74-106) H Assessment/Plan Assessment/Plan Covid 19 PNA Hypoxia Sinus bradycardia Diabetes mellitus with hyperglycemia due to steroids Transaminitis Mod protein/calorie malnutrition Atropine at bedside No urgent indication for pacing; can place external pacer if symptomatic. Continuous cardiac monitoring Anticoagulation and steroid rx Titrate oxygen Anti-viral rx Protein suppl Insulin cov'g by SS Chuck Swain MD Jul 16, 2020 19:42
[2020-07-16 20:00] VITALS: BP 124/68
[2020-07-16] MEDS: Promethazine/Codeine 5ml UD ORAL PRN (21:02)
[2020-07-17] VITALS: BP 135/67
[2020-07-17 04:00] VITALS: BP 125/67
[2020-07-17] MEDS: Promethazine/Codeine 5ml UD ORAL PRN ×2 (05:47→22:22)
[2020-07-17] MEDS: NovoLOG Insulin Flexpen SUBQ SCH ×4 (05:54→22:00)
--- NOTE | 2020-07-17 06:22 | Pulmonology Progress Note ---
Subjective ROS Limited/Unobtainable: No Constitutional: Denies: fever, chills Gastrointestinal/Abdominal: Denies: nausea, vomiting, diarrhea Musculoskeletal: Denies: pain Allergies: Coded Allergies: No Known Allergies (Unverified , 03/08/17) All Systems: reviewed and negative except above Subjective not improved still on high oxygen alert Objective Last 24 Hour Vital Signs Date Time Temp Pulse Resp B/P (MAP) Pulse Ox O2 Delivery O2 Flow Rate FiO2 07/17/20 03:43 92 High Flow 55.0 100 07/17/20 00:00 97.2 62 20 135/67 (89) 95 07/17/20 00:00 52 07/16/20 23:00 91 High Flow 55.0 100 07/16/20 21:00 High Flow O2 50.0 07/16/20 20:00 79 07/16/20 20:00 97.9 70 20 124/68 (86) 93 07/16/20 19:06 93 High Flow 55.0 100 07/16/20 16:00 97.6 65 20 120/71 (87) 94 07/16/20 16:00 54 07/16/20 15:00 95 High Flow 55.0 100 07/16/20 12:00 97.7 59 20 120/67 (84) 91 07/16/20 12:00 54 07/16/20 11:00 93 High Flow 55.0 100 07/16/20 09:00 High Flow O2 50.0 07/16/20 08:00 48 07/16/20 08:00 98.1 53 20 123/65 (84) 93 07/16/20 07:05 94 High Flow 55.0 100 Intake and Output 07/16/20 07/17/20 19:00 07:00 Intake Total 1000 ml Output Total 1600 ml Balance -600 ml Intake Oral 1000 ml Output Urine Total 1600 ml # Voids 2 # Bowel Movements 1 Objective deferred due to COVID Laboratory Tests 07/16/20 11:36: POC Whole Blood Glucose 343H 07/17/20 05:49: POC Whole Blood Glucose 336H Current Medications Medications (Trade) Dose Ordered Sig/Milagro Route PRN Reason Start Time Stop Time Status Last Admin Dose Admin Acetaminophen (Tylenol) 500 mg Q4H PRN ORAL Mild Pain (Pain Scale 1-3) 07/09/20 21:45 08/08/20 21:44 07/12/20 01:46 Albuterol/ Ipratropium (Combivent Respimat) 2 puff Q2H PRN INH Shortness of Breath 07/09/20 21:45 08/08/20 21:44 07/10/20 21:27 Ascorbic Acid (Vitamin C) 500 mg TWICE A DAY ORAL 07/11/20 09:00 08/10/20 08:59 07/16/20 17:22 Dextrose (Dextrose 50%) 25 ml Q30M PRN IV Hypoglycemia 07/15/20 00:00 10/13/20 00:00 Dextrose (Dextrose 50%) 50 ml Q30M PRN IV Hypoglycemia 07/15/20 00:00 10/13/20 00:00 Enoxaparin Sodium (Lovenox) 40 mg DAILY SUBQ 07/10/20 09:00 10/08/20 08:59 07/16/20 08:17 Insulin Aspart (NovoLOG) BEFORE MEALS AND HS SUBQ 07/15/20 06:30 10/13/20 06:29 07/17/20 05:54 Insulin Detemir (Levemir) 6 units BID SUBQ 07/16/20 10:00 10/14/20 09:59 07/16/20 17:22 Methylprednisolone Sodium Succinate (Solu-MEDROL) 40 mg Q12HR IVP 07/13/20 21:00 07/23/20 21:30 07/16/20 20:33 Ondansetron HCl (Zofran) 4 mg Q6H PRN IVP Nausea & Vomiting 07/09/20 21:45 08/08/20 21:44 Pantoprazole (Protonix) 40 mg DAILY ORAL 07/10/20 09:00 08/09/20 08:59 07/16/20 08:15 Promethazine HCl/ Codeine (Phenergan with Codeine) 5 ml Q4H PRN ORAL For Cough 07/11/20 15:15 08/10/20 15:14 07/17/20 05:47 Vitamin B Complex (Vitamin B Complex) 1 tab DAILY ORAL 07/11/20 09:00 10/09/20 08:59 07/16/20 08:15 Vitamin D (Vitamin D) 1,000 unit DAILY ORAL 07/14/20 09:30 08/13/20 09:29 07/16/20 08:15 Assessment/Plan Assessment/Plan acute hypoxemic respiratory failure COVID pneumonia Asthma elevated liver enzymes PLAN monitor imaging- repeat monitor ABG - repeat decadron respiratory care ID noted DVT prophylaxis taper oxygen as able monitor respiratory status for change at risk for intubation impression, plan, and exam edited and reviewed in detail care discussed with Elfego Rutherford MD Jul 17, 2020 06:22
--- NOTE | 2020-07-17 07:00 | NUR ---
NURSE HAND-OFF REPORT: Important Events on Shift:[n/a] Patient Status: [stable] Diet: [ccho med] Pending Orders: [] Pending Results/Labs:[] Pending MD notification:[] Latest Vital Signs: Temperature 97.9 , Pulse 47 , B/P 125 /67 , Respiratory Rate 22 , O2 SAT 94 , Nasal Cannula, O2 Flow Rate 55.0 . Vital Sign Comment: [] EKG Rhythm: Sinus Bradycardia Rhythm change?: Y MD Notified?: N -Dr. Jo Ann METCALF Response: Latest Bradley Fall Score: 30 Fall Risk: Medium Risk Safety Measures: Call light Within Reach, Bed Alarm Zone 2, Side Rails Side Rails x2, Bed position Low and Locked. Fall Precautions: Yellow Socks Yellow Gown Door Sign Patient Fall Education Report given to [pete Marquez].
--- NOTE | 2020-07-17 07:06 | NUR ---
NURSE NOTES: Received report from Nimisha/RN. Pt sleeping, in semi-fowlers position. On 50L high flow nasal cannula, no distress or SOB noted. Pr cardiac rhythm during the night was SB in the high 40s. IV on right hand 22G SL, patent and clean. Bed in lowest position and locked. Call light within reach, encouraged to use it when needed. Side rails up X2. Will continue plan of care.
[2020-07-17 08:00] VITALS: BP 117/61
[2020-07-17] MEDS: Ascorbic Acid 500mg tab ORAL SCH ×2 (08:38→18:03)
[2020-07-17] MEDS: Solu-MEDROL 40mg Inj IVP SCH ×2 (08:38→21:51)
[2020-07-17] MEDS: Vitamin D 1000 units Tab ORAL SCH (08:38)
[2020-07-17] MEDS: Vitamin B Complex Tab ORAL SCH (08:38)
[2020-07-17] MEDS: Enoxaparin 40mg Inj SUBQ SCH (08:39)
[2020-07-17] MEDS: Levemir Flexpen SUBQ SCH ×2 (08:40→18:11)
--- NOTE | 2020-07-17 09:18 | General Progress Note ---
Subjective ROS Limited/Unobtainable: No Constitutional: Reports: malaise, weakness HEENT: Reports: no symptoms Cardiovascular: Reports: no symptoms Respiratory: Reports: cough, shortness of breath Gastrointestinal/Abdominal: Reports: no symptoms Genitourinary: Reports: no symptoms Neurologic/Psychiatric: Reports: no symptoms Endocrine: Reports: no symptoms Hematologic/Lymphatic: Reports: no symptoms Allergies: Coded Allergies: No Known Allergies (Unverified , 03/08/17) All Systems: reviewed and negative except above Subjective stable. no new complaints. on high flow o2 100% 40L. intermittent bradycardia bs still high Objective Last 24 Hour Vital Signs Date Time Temp Pulse Resp B/P (MAP) Pulse Ox O2 Delivery O2 Flow Rate FiO2 07/17/20 08:00 97.5 52 20 117/61 (79) 90 07/17/20 04:00 47 07/17/20 04:00 97.9 65 22 125/67 (86) 94 07/17/20 03:43 92 High Flow 55.0 100 07/17/20 00:00 97.2 62 20 135/67 (89) 95 07/17/20 00:00 52 07/16/20 23:00 91 High Flow 55.0 100 07/16/20 21:00 High Flow O2 50.0 07/16/20 20:00 79 07/16/20 20:00 97.9 70 20 124/68 (86) 93 07/16/20 19:06 93 High Flow 55.0 100 07/16/20 16:00 97.6 65 20 120/71 (87) 94 07/16/20 16:00 54 07/16/20 15:00 95 High Flow 55.0 100 07/16/20 12:00 97.7 59 20 120/67 (84) 91 07/16/20 12:00 54 07/16/20 11:00 93 High Flow 55.0 100 Intake and Output 07/16/20 07/17/20 19:00 07:00 Intake Total 1000 ml 500 ml Output Total 1600 ml 1300 ml Balance -600 ml -800 ml Intake Oral 1000 ml 500 ml Output Urine Total 1600 ml 1300 ml # Voids 2 # Bowel Movements 1 Laboratory Tests 07/16/20 11:36: POC Whole Blood Glucose 343H 07/17/20 05:49: POC Whole Blood Glucose 336H Height (Feet): 5 Height (Inches): 6.00 Weight (Pounds): 209 Objective General Appearance: WD/WN, alert Cardiovascular: regular rhythm Respiratory/Chest: lungs clear Assessment/Plan Problem List: (1) Coronavirus infection ICD Codes: B34.2 - Coronavirus infection, unspecified SNOMED: [id number] Status: stable, not improved Assessment/Plan: cont steroids titrate o2 MDI cough rx repeat cxr- reviewed- worse pulm eval appreciated increase insulin rx pt ok with trying remdesivir. elevated LFTs trending down- probably due to fatty liver remdesivir not approved by [facility] Rolando Cherry MD Jul 17, 2020 09:18
--- NOTE | 2020-07-17 10:14 | Diagnostic Imaging Report ---
EXAM: XR Chest, 1 View CLINICAL HISTORY: Shortness of breath TECHNIQUE: Frontal view of the chest. COMPARISON: Chest x-rays dated 07/12/20 and 07/09/20 FINDINGS: Lungs: No significant interval change in patchy bilateral pulmonary opacities, concerning for pneumonia. Pleural space: Unremarkable. The costophrenic angles are sharp. No visible pneumothorax. Heart: Unremarkable. No cardiomegaly. Mediastinum: Unremarkable. Bones/joints: Unremarkable. Tubes, lines and devices: Telemetry leads overlie the thorax. IMPRESSION: No significant interval change in patchy bilateral pulmonary opacities, concerning for pneumonia.
[2020-07-17 12:00] VITALS: BP 101/69
--- NOTE | 2020-07-17 13:45 | Infectious Diseases Prog Note ---
Assessment/Plan Assessment/Plan A: 1. COVID-19 pneumonia. 2. History of asthma. 3. Elevated liver function tests. 4. Fatty liver PLAN: 1. Unable to start Remdesivir due to elevated liver function tests. 2. He has received one dose of ivermectin. 3. Continue Methylprednisone 4. Continue isolation. 5. We will follow up patient clinically. Subjective ROS Limited/Unobtainable: No Constitutional: Reports: no symptoms Respiratory: Reports: shortness of breath, dry cough, other - with walking Gastrointestinal/Abdominal: Reports: no symptoms Genitourinary: Reports: no symptoms Allergies: Coded Allergies: No Known Allergies (Unverified , 03/08/17) Objective Last 24 Hour Vital Signs Date Time Temp Pulse Resp B/P (MAP) Pulse Ox O2 Delivery O2 Flow Rate FiO2 07/17/20 12:00 97.8 78 20 101/69 (80) 93 07/17/20 09:00 High Flow O2 50.0 07/17/20 08:00 46 07/17/20 08:00 97.5 52 20 117/61 (79) 90 07/17/20 04:00 47 07/17/20 04:00 97.9 65 22 125/67 (86) 94 07/17/20 03:43 92 High Flow 55.0 100 07/17/20 00:00 97.2 62 20 135/67 (89) 95 07/17/20 00:00 52 07/16/20 23:00 91 High Flow 55.0 100 07/16/20 21:00 High Flow O2 50.0 07/16/20 20:00 79 07/16/20 20:00 97.9 70 20 124/68 (86) 93 07/16/20 19:06 93 High Flow 55.0 100 07/16/20 16:00 97.6 65 20 120/71 (87) 94 07/16/20 16:00 54 07/16/20 15:00 95 High Flow 55.0 100 Height (Feet): 5 Height (Inches): 6.00 Weight (Pounds): 209 General Appearance: no acute distress HEENT: mucous membranes moist Respiratory/Chest: other - oxygen by high flow nasal cannula Cardiovascular: normal rate Abdomen: soft, non tender Extremities: no edema Neurologic/Psychiatric: alert, oriented x 3, responsive Laboratory Tests Test 07/17/20 05:49 07/17/20 08:18 POC Whole Blood Glucose 336 MG/DL (74-106) H Arterial Blood pH 7.440 (7.350-7.450) Arterial Blood Partial Pressure CO2 37.5 mmHg (35.0-45.0) Arterial Blood Partial Pressure O2 59.5 mmHg (75.0-100.0) L Arterial Blood HCO3 24.9 mmol/L (22.0-26.0) Arterial Blood Oxygen Saturation 91.7 % (95-100) L Arterial Blood Base Excess 1 (-2-2) Jacob Test Positive Current Medications Medications (Trade) Dose Ordered Sig/Milagro Route PRN Reason Start Time Stop Time Status Last Admin Dose Admin Acetaminophen (Tylenol) 500 mg Q4H PRN ORAL Mild Pain (Pain Scale 1-3) 07/09/20 21:45 08/08/20 21:44 07/12/20 01:46 Albuterol/ Ipratropium (Combivent Respimat) 2 puff Q2H PRN INH Shortness of Breath 07/09/20 21:45 08/08/20 21:44 07/10/20 21:27 Ascorbic Acid (Vitamin C) 500 mg TWICE A DAY ORAL 07/11/20 09:00 08/10/20 08:59 07/17/20 08:38 Dextrose (Dextrose 50%) 25 ml Q30M PRN IV Hypoglycemia 07/15/20 00:00 10/13/20 00:00 Dextrose (Dextrose 50%) 50 ml Q30M PRN IV Hypoglycemia 07/15/20 00:00 10/13/20 00:00 Enoxaparin Sodium (Lovenox) 40 mg DAILY SUBQ 07/10/20 09:00 10/08/20 08:59 07/17/20 08:39 Insulin Aspart (NovoLOG) BEFORE MEALS AND HS SUBQ 07/15/20 06:30 10/13/20 06:29 07/17/20 11:50 Insulin Detemir (Levemir) 10 units BID SUBQ 07/17/20 18:00 10/15/20 17:59 Methylprednisolone Sodium Succinate (Solu-MEDROL) 40 mg Q12HR IVP 07/13/20 21:00 07/23/20 21:30 07/17/20 08:38 Ondansetron HCl (Zofran) 4 mg Q6H PRN IVP Nausea & Vomiting 07/09/20 21:45 08/08/20 21:44 Pantoprazole (Protonix) 40 mg DAILY ORAL 07/10/20 09:00 08/09/20 08:59 07/17/20 08:38 Promethazine HCl/ Codeine (Phenergan with Codeine) 5 ml Q4H PRN ORAL For Cough 07/11/20 15:15 08/10/20 15:14 07/17/20 05:47 Vitamin B Complex (Vitamin B Complex) 1 tab DAILY ORAL 07/11/20 09:00 10/09/20 08:59 07/17/20 08:38 Vitamin D (Vitamin D) 1,000 unit DAILY ORAL 07/14/20 09:30 08/13/20 09:29 07/17/20 08:38 Mian Wing MD Jul 17, 2020 13:45
[2020-07-17 16:00] VITALS: BP 128/79
--- NOTE | 2020-07-17 19:17 | NUR ---
NURSE HAND-OFF REPORT: Important Events on Shift: Patient Status: Stable Diet: CCHO (medium) Pending Orders: Pending Results/Labs: Pending MD notification: Latest Vital Signs: Temperature 98.1 , Pulse 61 , B/P 128 /79 , Respiratory Rate 20 , O2 SAT 90 , Nasal Cannula, O2 Flow Rate 55.0 . Vital Sign Comment: Stable EKG Rhythm: Sinus Rhythm Rhythm change?: N MD Notified?: N Steve Cherry MD Response: Latest Bradley Fall Score: 30 Fall Risk: Medium Risk Safety Measures: Call light Within Reach, Bed Alarm Zone 2, Side Rails Side Rails x2, Bed position Low and Locked. Fall Precautions: Yellow Socks Yellow Gown Door Sign Patient Fall Education Report given to Nimisha/RN.
--- NOTE | 2020-07-17 19:20 | NUR ---
NURSE NOTES: RECEIVED REPORT FROM ELIER WALDROP. PT IN BED. AWAKE, A/OX4, ABLE TO MAKE NEEDS KNOWN. ON HIGH FLOW NC 50L/MIN WITH FIO2 100% SATING AT 92%. 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 NO C/O PAIN. IV ON RIGHT HAND 22G SALINE LOCKED. BED IN LOW POSITION & LOCKED. SIDE RAILS UP X2. BED ALARM ON. CALL LIGHT WITH IN REACH. CONTINUE PLAN OF CARE.
[2020-07-17 20:00] VITALS: BP 122/70
--- NOTE | 2020-07-17 22:40 | Cardiology Progress Note ---
Subjective DATE OF SERVICE: Jul 17, 2020 Remains with episodes of hypoxia; on high flow oxygen. Still with asymptomatic sinus bradycardia; but now in 50-70 range predominantly. No LOC or syncope. ABG (07/17) 7.44/34/60 Objective Last 24 Hour Vital Signs Date Time Temp Pulse Resp B/P (MAP) Pulse Ox O2 Delivery O2 Flow Rate FiO2 07/17/20 19:37 92 High Flow 55.0 100 07/17/20 16:00 98.1 72 20 128/79 (95) 90 07/17/20 16:00 61 07/17/20 14:55 91 High Flow 55.0 100 07/17/20 12:00 97.8 78 20 101/69 (80) 93 07/17/20 12:00 75 07/17/20 10:55 93 High Flow 55.0 100 07/17/20 09:00 High Flow O2 50.0 07/17/20 08:08 94 High Flow 55.0 100 07/17/20 08:00 46 07/17/20 08:00 97.5 52 20 117/61 (79) 90 07/17/20 04:00 47 07/17/20 04:00 97.9 65 22 125/67 (86) 94 07/17/20 03:43 92 High Flow 55.0 100 07/17/20 00:00 97.2 62 20 135/67 (89) 95 07/17/20 00:00 52 07/16/20 23:00 91 High Flow 55.0 100 HEENT: normal ENT inspection RHYTHM: SB LUNGS: bilateral rhonchi CARDIAC: regular rhythm, normal S1 and S2, bradycardia ABDOMEN: normal bowel sounds, non tender, soft EXTREMITIES: normal range of motion, non-tender Laboratory Tests Test 07/17/20 05:49 07/17/20 08:18 07/17/20 16:12 POC Whole Blood Glucose 336 MG/DL (74-106) H 308 MG/DL (74-106) H Arterial Blood pH 7.440 (7.350-7.450) Arterial Blood Partial Pressure CO2 37.5 mmHg (35.0-45.0) Arterial Blood Partial Pressure O2 59.5 mmHg (75.0-100.0) L Arterial Blood HCO3 24.9 mmol/L (22.0-26.0) Arterial Blood Oxygen Saturation 91.7 % (95-100) L Arterial Blood Base Excess 1 (-2-2) Jacob Test Positive CHEST XRAY: 07/17/20: Infiltrates unchanged Assessment/Plan Assessment/Plan Covid 19 PNA Hypoxia Sinus bradycardia - asymptomatic Diabetes mellitus with hyperglycemia due to steroids Transaminitis Mod protein/calorie malnutrition Atropine at bedside No indication for pacing; can place external pacer if symptomatic. Continuous cardiac monitoring Anticoagulation and steroid rx Titrate oxygen Anti-viral rx Protein suppl Insulin cov'g by SS Stress test once Covid-free to check chronotropic competence. Chuck Swain MD Jul 17, 2020 22:40
[2020-07-18] VITALS: BP 122/70
--- NOTE | 2020-07-18 00:04 | NUR ---
Placed NRB in conjunction to HFNC due to pt desaturation. pt currently saturating within normal limits. Addendum: 07/18/20 at 0006 by Edgar Salmon, RT Amended: Links added.
[2020-07-18 04:00] VITALS: BP 128/64
[2020-07-18] MEDS: NovoLOG Insulin Flexpen SUBQ SCH ×4 (06:20→20:35)
--- NOTE | 2020-07-18 06:30 | NUR ---
NURSE NOTES: NOTIFIES DR. CHOU REGARDING PT DESATURATING WITH NEW ORDERED GIVEN WILL NOTE & CARRY OUT
--- NOTE | 2020-07-18 07:25 | NUR ---
NURSE HAND-OFF REPORT: Important Events on Shift:[PT DESATURATED, RT MADE AWARE & PLACED ON NON-REBREATHER CURRENTLY SATING AT 91-92%] Patient Status: [SATBLE] Diet: [CCHO MED] Pending Orders: [] Pending Results/Labs:[] Pending MD notification:[] Latest Vital Signs: Temperature 98.0 , Pulse 62 , B/P 128 /64 , Respiratory Rate 22 , O2 SAT 92 , Nasal Cannula, O2 Flow Rate 55.0 . Vital Sign Comment: [] EKG Rhythm: Sinus Bradycardia Rhythm change?: Y MD Notified?: N -Dr. Jo Ann METCALF Response: Latest Bradley Fall Score: 30 Fall Risk: Medium Risk Safety Measures: Call light Within Reach, Bed Alarm Zone 2, Side Rails Side Rails x2, Bed position Low and Locked. Fall Precautions: Yellow Socks Yellow Gown Door Sign Patient Fall Education Report given to [ELIER CHRISTENSEN].
--- NOTE | 2020-07-18 07:25 | NUR ---
NURSE NOTES: Received patient in bed. Awake, A/O x4. On high flow O2. Bed low and locked, side rails up x2, patient denies pain. Call light within reach with return demonstration.
[2020-07-18 07:29] LABS: ALANINE AMINOTRANSFERASE 168 U/L (12-78); ALBUMIN 2.5 G/DL (3.4-5.0); ALBUMIN/GLOBULIN RATIO 0.6 (1.0-2.7); ALKALINE PHOSPHATASE 91 U/L (46-116); ANION GAP 9 mmol/L (5-15); ASPARTATE AMINO TRANSFERASE 70 U/L (15-37); BLOOD UREA NITROGEN 19 mg/dL (7-18); CALCIUM 8.5 MG/DL (8.5-10.1); CARBON DIOXIDE 25 MMOL/L (21-32); CHLORIDE 99 MMOL/L (98-107); CREATININE 0.7 MG/DL (0.55-1.30); POTASSIUM 4.2 MMOL/L (3.5-5.1); SODIUM 133 MMOL/L (136-145)
--- NOTE | 2020-07-18 07:36 | NUR ---
NURSE NOTES: Pharmacy contacted for replacement combivent INH. New one to be delivered to the unit per Pushpa.
[2020-07-18 08:00] VITALS: BP 119/70
[2020-07-18 08:05] LABS: HEMATOCRIT 46.3 % (42.0-52.0); HEMOGLOBIN 15.8 G/DL (14.2-18.0); MEAN CORPUSCULAR VOLUME 88 FL (80-99); PLATELET COUNT 498 K/UL (150-450); RED BLOOD COUNT 5.25 M/UL (4.70-6.10); RED CELL DISTRIBUTION WIDTH 11.8 % (11.6-14.8); WHITE BLOOD COUNT 12.5 K/UL (4.8-10.8)
[2020-07-18] MEDS: Vitamin B Complex Tab ORAL SCH (08:09)
[2020-07-18] MEDS: Vitamin D 1000 units Tab ORAL SCH (08:09)
[2020-07-18] MEDS: Solu-MEDROL 40mg Inj IVP SCH ×2 (08:09→20:32)
[2020-07-18] MEDS: Ascorbic Acid 500mg tab ORAL SCH ×2 (08:10→17:37)
[2020-07-18] MEDS: Enoxaparin 40mg Inj SUBQ SCH ×2 (08:16→20:34)
[2020-07-18] MEDS: Levemir Flexpen SUBQ SCH ×2 (08:17→17:40)
--- NOTE | 2020-07-18 11:47 | Infectious Diseases Prog Note ---
Assessment/Plan Assessment/Plan antibiotics : none A 1. COVID-19 pneumonia on 55 liters of oxygen with O2 saturation 93 %. s/p ivermectin 2. History of asthma. 3. Elevated liver function tests improving PLAN: 1. Continue solumedrol 2. 1 dose ivermectin 3. Continue isolation. 4. We will follow up patient clinically Subjective Respiratory: Reports: shortness of breath - less, dry cough - less Gastrointestinal/Abdominal: Denies: nausea, vomiting, diarrhea Musculoskeletal: Denies: pain Allergies: Coded Allergies: No Known Allergies (Unverified , 03/08/17) Objective Last 24 Hour Vital Signs Date Time Temp Pulse Resp B/P (MAP) Pulse Ox O2 Delivery O2 Flow Rate FiO2 07/18/20 09:00 High Flow O2 50.0 07/18/20 08:00 55 07/18/20 07:10 93 High Flow 55.0 100 07/18/20 04:00 98.0 62 22 128/64 (85) 92 07/18/20 04:00 59 07/18/20 03:29 93 High Flow 55.0 100 07/18/20 00:03 92 High Flow 55.0 100 07/18/20 00:00 65 07/18/20 00:00 98.8 90 26 122/70 (87) 92 07/17/20 21:00 High Flow O2 50.0 07/17/20 20:00 61 07/17/20 20:00 98.2 70 20 122/70 (87) 92 07/17/20 19:37 92 High Flow 55.0 100 07/17/20 16:00 98.1 72 20 128/79 (95) 90 07/17/20 16:00 61 07/17/20 14:55 91 High Flow 55.0 100 07/17/20 12:00 97.8 78 20 101/69 (80) 93 07/17/20 12:00 75 Height (Feet): 5 Height (Inches): 6.00 Weight (Pounds): 209 Laboratory Tests Test 07/17/20 16:12 07/18/20 04:20 07/18/20 06:31 POC Whole Blood Glucose 308 MG/DL (74-106) H White Blood Count 12.5 K/UL (4.8-10.8) H Red Blood Count 5.25 M/UL (4.70-6.10) Hemoglobin 15.8 G/DL (14.2-18.0) Hematocrit 46.3 % (42.0-52.0) Mean Corpuscular Volume 88 FL (80-99) Mean Corpuscular Hemoglobin 30.0 PG (27.0-31.0) Mean Corpuscular Hemoglobin Concent 34.0 G/DL (32.0-36.0) Red Cell Distribution Width 11.8 % (11.6-14.8) Platelet Count 498 K/UL (150-450) H Mean Platelet Volume 6.1 FL (6.5-10.1) L Neutrophils (%) (Auto) % (45.0-75.0) Lymphocytes (%) (Auto) % (20.0-45.0) Monocytes (%) (Auto) % (1.0-10.0) Eosinophils (%) (Auto) % (0.0-3.0) Basophils (%) (Auto) % (0.0-2.0) Differential Total Cells Counted 100 Neutrophils % (Manual) 90 % (45-75) H Lymphocytes % (Manual) 7 % (20-45) L Monocytes % (Manual) 3 % (1-10) Eosinophils % (Manual) 0 % (0-3) Basophils % (Manual) 0 % (0-2) Band Neutrophils 0 % (0-8) Platelet Estimate Increased H Platelet Morphology Normal Red Blood Cell Morphology Normal D-Dimer 0.93 mg/L FEU (0.00-0.49) H Sodium Level 133 MMOL/L (136-145) L Potassium Level 4.2 MMOL/L (3.5-5.1) Chloride Level 99 MMOL/L (98-107) Carbon Dioxide Level 25 MMOL/L (21-32) Anion Gap 9 mmol/L (5-15) Blood Urea Nitrogen 19 mg/dL (7-18) H Creatinine 0.7 MG/DL (0.55-1.30) Estimat Glomerular Filtration Rate > 60 mL/min (>60) Glucose Level 335 MG/DL (74-106) H Calcium Level 8.5 MG/DL (8.5-10.1) Total Bilirubin 1.0 MG/DL (0.2-1.0) Aspartate Amino Transf (AST/SGOT) 70 U/L (15-37) H Alanine Aminotransferase (ALT/SGPT) 168 U/L (12-78) H Alkaline Phosphatase 91 U/L (46-116) C-Reactive Protein, Quantitative 4.2 mg/dL (0.00-0.90) H Total Protein 7.0 G/DL (6.4-8.2) Albumin 2.5 G/DL (3.4-5.0) L Globulin 4.5 g/dL Albumin/Globulin Ratio 0.6 (1.0-2.7) L Arterial Blood pH 7.496 (7.350-7.450) Arterial Blood Partial Pressure CO2 29.4 mmHg (35.0-45.0) L Arterial Blood Partial Pressure O2 90.2 mmHg (75.0-100.0) Arterial Blood HCO3 22.2 mmol/L (22.0-26.0) Arterial Blood Oxygen Saturation 96.7 % (95-100) Arterial Blood Base Excess 0.4 (-2-2) Jacob Test Positive Current Medications Medications (Trade) Dose Ordered Sig/Milagro Route PRN Reason Start Time Stop Time Status Last Admin Dose Admin Acetaminophen (Tylenol) 500 mg Q4H PRN ORAL Mild Pain (Pain Scale 1-3) 07/09/20 21:45 08/08/20 21:44 07/12/20 01:46 Albuterol/ Ipratropium (Combivent Respimat) 2 puff Q2H PRN INH Shortness of Breath 07/09/20 21:45 08/08/20 21:44 07/18/20 08:00 Ascorbic Acid (Vitamin C) 500 mg TWICE A DAY ORAL 07/11/20 09:00 08/10/20 08:59 07/18/20 08:10 Dextrose (Dextrose 50%) 25 ml Q30M PRN IV Hypoglycemia 07/15/20 00:00 10/13/20 00:00 Dextrose (Dextrose 50%) 50 ml Q30M PRN IV Hypoglycemia 07/15/20 00:00 10/13/20 00:00 Enoxaparin Sodium (Lovenox) 40 mg DAILY SUBQ 07/10/20 09:00 10/08/20 08:59 07/18/20 08:16 Insulin Aspart (NovoLOG) BEFORE MEALS AND HS SUBQ 07/15/20 06:30 10/13/20 06:29 07/18/20 11:39 Insulin Detemir (Levemir) 10 units BID SUBQ 07/17/20 18:00 10/15/20 17:59 07/18/20 08:17 Methylprednisolone Sodium Succinate (Solu-MEDROL) 40 mg Q12HR IVP 07/13/20 21:00 07/23/20 21:30 07/18/20 08:09 Ondansetron HCl (Zofran) 4 mg Q6H PRN IVP Nausea & Vomiting 07/09/20 21:45 08/08/20 21:44 Pantoprazole (Protonix) 40 mg DAILY ORAL 07/10/20 09:00 08/09/20 08:59 07/18/20 08:09 Promethazine HCl/ Codeine (Phenergan with Codeine) 5 ml Q4H PRN ORAL For Cough 07/11/20 15:15 08/10/20 15:14 07/17/20 22:22 Vitamin B Complex (Vitamin B Complex) 1 tab DAILY ORAL 07/11/20 09:00 10/09/20 08:59 07/18/20 08:09 Vitamin D (Vitamin D) 1,000 unit DAILY ORAL 07/14/20 09:30 08/13/20 09:29 07/18/20 08:09 Jose Alberto MD Jul 18, 2020 11:47
[2020-07-18 12:00] VITALS: BP 114/60
--- NOTE | 2020-07-18 12:32 | General Progress Note ---
Subjective ROS Limited/Unobtainable: No Constitutional: Reports: malaise, weakness HEENT: Reports: no symptoms Cardiovascular: Reports: no symptoms Respiratory: Reports: cough, shortness of breath Gastrointestinal/Abdominal: Reports: no symptoms Genitourinary: Reports: no symptoms Neurologic/Psychiatric: Reports: no symptoms Endocrine: Reports: no symptoms Hematologic/Lymphatic: Reports: no symptoms Allergies: Coded Allergies: No Known Allergies (Unverified , 03/08/17) All Systems: reviewed and negative except above Subjective worsening sob. on NRB. cxr unchanged, abg reviewed Objective Last 24 Hour Vital Signs Date Time Temp Pulse Resp B/P (MAP) Pulse Ox O2 Delivery O2 Flow Rate FiO2 07/18/20 09:00 High Flow O2 50.0 07/18/20 08:00 55 07/18/20 07:10 93 High Flow 55.0 100 07/18/20 04:00 98.0 62 22 128/64 (85) 92 07/18/20 04:00 59 07/18/20 03:29 93 High Flow 55.0 100 07/18/20 00:03 92 High Flow 55.0 100 07/18/20 00:00 65 07/18/20 00:00 98.8 90 26 122/70 (87) 92 07/17/20 21:00 High Flow O2 50.0 07/17/20 20:00 61 07/17/20 20:00 98.2 70 20 122/70 (87) 92 07/17/20 19:37 92 High Flow 55.0 100 07/17/20 16:00 98.1 72 20 128/79 (95) 90 07/17/20 16:00 61 07/17/20 14:55 91 High Flow 55.0 100 Intake and Output 07/17/20 07/18/20 19:00 07:00 Intake Total 1200 ml 600 ml Output Total 1600 ml 1100 ml Balance -400 ml -500 ml Intake Oral 1200 ml 600 ml Output Urine Total 1600 ml 1100 ml # Voids 2 # Bowel Movements 1 Laboratory Tests 07/17/20 16:12: POC Whole Blood Glucose 308H 07/18/20 04:20: White Blood Count 12.5H, Red Blood Count 5.25, Hemoglobin 15.8, Hematocrit 46.3, Mean Corpuscular Volume 88, Mean Corpuscular Hemoglobin 30.0, Mean Corpuscular Hemoglobin Concent 34.0, Red Cell Distribution Width 11.8, Platelet Count 498H, Mean Platelet Volume 6.1L, Neutrophils (%) (Auto) , Lymphocytes (%) (Auto) , Monocytes (%) (Auto) , Eosinophils (%) (Auto) , Basophils (%) (Auto) , Differential Total Cells Counted 100, Neutrophils % (Manual) 90H, Lymphocytes % (Manual) 7L, Monocytes % (Manual) 3, Eosinophils % (Manual) 0, Basophils % (Manual) 0, Band Neutrophils 0, Platelet Estimate IncreasedH, Platelet Morpholo gy Normal, Red Blood Cell Morphology Normal, D-Dimer 0.93H, Sodium Level 133L, Potassium Level 4.2, Chloride Level 99, Carbon Dioxide Level 25, Anion Gap 9, Blood Urea Nitrogen 19H, Creatinine 0.7, Estimat Glomerular Filtration Rate > 60, Glucose Level 335H, Calcium Level 8.5, Total Bilirubin 1.0, Aspartate Amino Transf (AST/SGOT) 70H, Alanine Aminotransferase (ALT/SGPT) 168H, Alkaline Phosphatase 91, C-Reactive Protein, Quantitative 4.2H, Total Protein 7.0, Albumin 2.5L, Globulin 4.5, Albumin/Globulin Ratio 0.6L 07/18/20 06:31: Arterial Blood pH 7.496H, Arterial Blood Partial Pressure CO2 29.4L, Arterial Blood Partial Pressure O2 90.2, Arterial Blood HCO3 22.2, Arterial Blood Oxygen Saturation 96.7, Arterial Blood Base Excess 0.4, Jacob Test Positive Height (Feet): 5 Height (Inches): 6.00 Weight (Pounds): 209 Objective General Appearance: WD/WN, alert Cardiovascular: regular rhythm Respiratory/Chest: lungs clear Assessment/Plan Problem List: (1) Coronavirus infection ICD Codes: B34.2 - Coronavirus infection, unspecified SNOMED: [id number] Status: stable, not improved Assessment/Plan: cont steroids titrate o2 MDI cough rx repeat ivermectin pulm eval appreciated titrate insulin rx increased lovenox to bid Rolando Cherry MD Jul 18, 2020 12:32
--- NOTE | 2020-07-18 12:43 | NUR ---
CASE MANAGEMENT:REVIEW 07/18/20 SI: COVID PNA 98.0 55 22 128/64 93% HIGH FLOW 55L/100% WBC+12.5 IS: IV SOLUMEDROL Q12 LOVENOX SQ QD IVERMECTIN PO X1 VIT C PO BID VIT D PO QD DUONEB INH Q2HR PRN : TELEMETRY STATUS DCP; FROM HOME
--- NOTE | 2020-07-18 13:05 | Diagnostic Imaging Report ---
Indication: Shortness of breath Technique: One view of the chest Comparison: 07/17/2020 Findings: As optimal inspiration currently. Current film less heavily exposed. Bilateral infiltrates are probably slightly worsened since the previous exam, particularly in the right upper lobe. Impression: Slight worsening of bilateral infiltrates, over one day
[2020-07-18 16:00] VITALS: BP 120/71
--- NOTE | 2020-07-18 18:37 | Pulmonology Progress Note ---
Subjective ROS Limited/Unobtainable: No Constitutional: Reports: no symptoms Gastrointestinal/Abdominal: Denies: nausea, vomiting, diarrhea Musculoskeletal: Denies: pain Allergies: Coded Allergies: No Known Allergies (Unverified , 03/08/17) All Systems: reviewed and negative except above Objective Last 24 Hour Vital Signs Date Time Temp Pulse Resp B/P (MAP) Pulse Ox O2 Delivery O2 Flow Rate FiO2 07/18/20 16:00 115 07/18/20 16:00 98.0 72 20 120/71 (87) 94 07/18/20 12:00 98.3 78 21 114/60 (78) 89 07/18/20 12:00 64 07/18/20 09:00 High Flow O2 50.0 07/18/20 08:00 55 07/18/20 08:00 97.8 68 20 119/70 (86) 90 07/18/20 07:10 93 High Flow 55.0 100 07/18/20 04:00 98.0 62 22 128/64 (85) 92 07/18/20 04:00 59 07/18/20 03:29 93 High Flow 55.0 100 07/18/20 00:03 92 High Flow 55.0 100 07/18/20 00:00 65 07/18/20 00:00 98.8 90 26 122/70 (87) 92 07/17/20 21:00 High Flow O2 50.0 07/17/20 20:00 61 07/17/20 20:00 98.2 70 20 122/70 (87) 92 07/17/20 19:37 92 High Flow 55.0 100 Intake and Output 07/17/20 07/18/20 19:00 07:00 Intake Total 1200 ml 600 ml Output Total 1600 ml 1100 ml Balance -400 ml -500 ml Intake Oral 1200 ml 600 ml Output Urine Total 1600 ml 1100 ml # Voids 2 # Bowel Movements 1 Laboratory Tests 07/18/20 04:20: White Blood Count 12.5H, Red Blood Count 5.25, Hemoglobin 15.8, Hematocrit 46.3, Mean Corpuscular Volume 88, Mean Corpuscular Hemoglobin 30.0, Mean Corpuscular H emoglobin Concent 34.0, Red Cell Distribution Width 11.8, Platelet Count 498H, Mean Platelet Volume 6.1L, Neutrophils (%) (Auto) , Lymphocytes (%) (Auto) , Monocytes (%) (Auto) , Eosinophils (%) (Auto) , Basophils (%) (Auto) , Differential Total Cells Counted 100, Neutrophils % (Manual) 90H, Lymphocytes % (Manual) 7L, Monocytes % (Manual) 3, Eosinophils % (Manual) 0, Basophils % (Manual) 0, Band Neutrophils 0, Platelet Estimate IncreasedH, Platelet Morphology Normal, Red Blood Cell Morphology Normal, D-Dimer 0.93H, Sodium Level 133L, Potassium Level 4.2, Chloride Level 99, Carbon Dioxide Level 25, Anion Gap 9, Blood Urea Nitrogen 19H, Creatinine 0.7, Estimat Glomerular Filtration Rate > 60, Glucose Level 335H, Calcium Level 8.5, Total Bilirubin 1.0, Aspartate Amino Transf (AST/SGOT) 70H, Alanine Aminotransferase (ALT/SGPT) 168H, Alkaline Phosphatase 91, C-Reactive Protein, Quantitative 4.2H, Total Protein 7.0, Albumin 2.5L, Globulin 4.5, Albumin/Globulin Ratio 0.6L 07/18/20 06:31: Arterial Blood pH 7.496H, Arterial Blood Partial Pressure CO2 29.4L, Arterial Blood Partial Pressure O2 90.2, Arterial Blood HCO3 22.2, Arterial Blood Oxygen Saturation 96.7, Arterial Blood Base Excess 0.4, Jacob Test Positive Current Medications Medications (Trade) Dose Ordered Sig/Milagro Route PRN Reason Start Time Stop Time Status Last Admin Dose Admin Acetaminophen (Tylenol) 500 mg Q4H PRN ORAL Mild Pain (Pain Scale 1-3) 07/09/20 21:45 08/08/20 21:44 07/12/20 01:46 Albuterol/ Ipratropium (Combivent Respimat) 2 puff Q2H PRN INH Shortness of Breath 07/09/20 21:45 08/08/20 21:44 07/18/20 08:00 Ascorbic Acid (Vitamin C) 500 mg TWICE A DAY ORAL 07/11/20 09:00 08/10/20 08:59 07/18/20 17:37 Dextrose (Dextrose 50%) 25 ml Q30M PRN IV Hypoglycemia 07/15/20 00:00 10/13/20 00:00 Dextrose (Dextrose 50%) 50 ml Q30M PRN IV Hypoglycemia 07/15/20 00:00 10/13/20 00:00 Enoxaparin Sodium (Lovenox) 40 mg Q12HR SUBQ 07/18/20 21:00 10/16/20 20:59 Insulin Aspart (NovoLOG) BEFORE MEALS AND HS SUBQ 07/15/20 06:30 10/13/20 06:29 07/18/20 16:42 Insulin Detemir (Levemir) 10 units BID SUBQ 07/17/20 18:00 10/15/20 17:59 07/18/20 17:40 Methylprednisolone Sodium Succinate (Solu-MEDROL) 40 mg Q12HR IVP 07/13/20 21:00 07/23/20 21:30 07/18/20 08:09 Ondansetron HCl (Zofran) 4 mg Q6H PRN IVP Nausea & Vomiting 07/09/20 21:45 08/08/20 21:44 Pantoprazole (Protonix) 40 mg DAILY ORAL 07/10/20 09:00 08/09/20 08:59 07/18/20 08:09 Promethazine HCl/ Codeine (Phenergan with Codeine) 5 ml Q4H PRN ORAL For Cough 07/11/20 15:15 08/10/20 15:14 07/17/20 22:22 Vitamin B Complex (Vitamin B Complex) 1 tab DAILY ORAL 07/11/20 09:00 10/09/20 08:59 07/18/20 08:09 Vitamin D (Vitamin D) 1,000 unit DAILY ORAL 07/14/20 09:30 08/13/20 09:29 07/18/20 08:09 Assessment/Plan Assessment/Plan Pulmonary Progress Note date and time: 07/17/20621 Subjectiv ROS Limited/Unobtainable: No Constitutional: Denies: fever, chills Gastrointestinal/Abdominal: Denies: nausea, vomiting, diarrhea Musculoskeletal: Denies: pain Allergies: Coded Allergies: No Known Allergies (Unverified , 03/08/17) All Systems: reviewed and negative except above Subjective not improved still on high flow oxygen alert Objective Vital Signs noted Objective deferred due to COVID 19 Laboratory Tests noted Assessment/Plan Assessment/Plan acute hypoxemic respiratory failure COVID pneumonia Asthma elevated liver enzymes PLAN monitor imaging- repeat monitor ABG - repeat decadron respiratory care ID noted DVT prophylaxis taper oxygen as able monitor respiratory status for change at risk for intubation impression, plan, and exam edited and reviewed in detail care discussed with Chuck Stoll MD Jul 18, 2020 18:37
--- NOTE | 2020-07-18 19:10 | NUR ---
NURSE NOTES: Received report from Chris. THAPA. Pt is A/O x 3 and verbally responsive. Pt is on high flow 50L with a saturation of 93%. No pain noted. No SOB or acute distress noted. Bed in lowest position with side rails x2 and bed locked. Pt reminded to lay in prone position as much as possible. Educated regarding plan of care. Reminded to use call light when needing to go to the bathroom for assistance. Will continue plan of care.
--- NOTE | 2020-07-18 19:28 | NUR ---
NURSE HAND-OFF REPORT: Important Events on Shift:[PRN combivent, high flow O2] Patient Status: [FULL CODE] Diet: [CCHO medium] Pending Orders: [] Pending Results/Labs:[] Pending MD notification:[] Latest Vital Signs: Temperature 98.0 , Pulse 115 , B/P 120 /71 , Respiratory Rate 20 , O2 SAT 94 , Nasal Cannula, O2 Flow Rate 50.0 . Vital Sign Comment: [] EKG Rhythm: Sinus Tachycardia Rhythm change?: N Notified?: N -Dr. Jo Ann METCALF Response: Latest Bradley Fall Score: 30 Fall Risk: Medium Risk Safety Measures: Call light Within Reach, Bed Alarm Zone 2, Side Rails Side Rails x2, Bed position Low and Locked. Fall Precautions: Yellow Socks Yellow Gown Door Sign Patient Fall Education Report given to [Dalia RN].
[2020-07-18 20:00] VITALS: BP 115/72
--- NOTE | 2020-07-18 23:20 | Cardiology Progress Note ---
Subjective DATE OF SERVICE: Jul 18, 2020 Remains with worsening hypoxia; on high flow oxygen now above 50%. Now with rare episodes of asymptomatic sinus bradycardia; but now in 50-80 range predominantly. No LOC or syncope. ABG (07/17) 7.5090 (55% FIO2) Objective Last 24 Hour Vital Signs Date Time Temp Pulse Resp B/P (MAP) Pulse Ox O2 Delivery O2 Flow Rate FiO2 07/18/20 23:15 94 High Flow 55.0 100 07/18/20 21:00 High Flow O2 50.0 07/18/20 20:00 71 07/18/20 20:00 98.2 70 20 115/72 (86) 92 07/18/20 19:54 92 High Flow 55.0 100 07/18/20 16:00 115 07/18/20 16:00 98.0 72 20 120/71 (87) 94 07/18/20 12:00 98.3 78 21 114/60 (78) 89 07/18/20 12:00 64 07/18/20 09:00 High Flow O2 50.0 07/18/20 08:00 55 07/18/20 08:00 97.8 68 20 119/70 (86) 90 07/18/20 07:10 93 High Flow 55.0 100 07/18/20 04:00 98.0 62 22 128/64 (85) 92 07/18/20 04:00 59 07/18/20 03:29 93 High Flow 55.0 100 07/18/20 00:03 92 High Flow 55.0 100 07/18/20 00:00 65 07/18/20 00:00 98.8 90 26 122/70 (87) 92 HEENT: normal ENT inspection RHYTHM: SB LUNGS: bilateral rhonchi CARDIAC: regular rhythm, normal S1 and S2, bradycardia ABDOMEN: normal bowel sounds, non tender, soft EXTREMITIES: normal range of motion, non-tender Laboratory Tests Test 07/18/20 04:20 07/18/20 06:31 07/18/20 20:28 White Blood Count 12.5 K/UL (4.8-10.8) H Red Blood Count 5.25 M/UL (4.70-6.10) Hemoglobin 15.8 G/DL (14.2-18.0) Hematocrit 46.3 % (42.0-52.0) Mean Corpuscular Volume 88 FL (80-99) Mean Corpuscular Hemoglobin 30.0 PG (27.0-31.0) Mean Corpuscular Hemoglobin Concent 34.0 G/DL (32.0-36.0) Red Cell Distribution Width 11.8 % (11.6-14.8) Platelet Count 498 K/UL (150-450) H Mean Platelet Volume 6.1 FL (6.5-10.1) L Neutrophils (%) (Auto) % (45.0-75.0) Lymphocytes (%) (Auto) % (20.0-45.0) Monocytes (%) (Auto) % (1.0-10.0) Eosinophils (%) (Auto) % (0.0-3.0) Basophils (%) (Auto) % (0.0-2.0) Differential Total Cells Counted 100 Neutrophils % (Manual) 90 % (45-75) H Lymphocytes % (Manual) 7 % (20-45) L Monocytes % (Manual) 3 % (1-10) Eosinophils % (Manual) 0 % (0-3) Basophils % (Manual) 0 % (0-2) Band Neutrophils 0 % (0-8) Platelet Estimate Increased H Platelet Morphology Normal Red Blood Cell Morphology Normal D-Dimer 0.93 mg/L FEU (0.00-0.49) H Sodium Level 133 MMOL/L (136-145) L Potassium Level 4.2 MMOL/L (3.5-5.1) Chloride Level 99 MMOL/L (98-107) Carbon Dioxide Level 25 MMOL/L (21-32) Anion Gap 9 mmol/L (5-15) Blood Urea Nitrogen 19 mg/dL (7-18) H Creatinine 0.7 MG/DL (0.55-1.30) Estimat Glomerular Filtration Rate > 60 mL/min (>60) Glucose Level 335 MG/DL (74-106) H Calcium Level 8.5 MG/DL (8.5-10.1) Total Bilirubin 1.0 MG/DL (0.2-1.0) Aspartate Amino Transf (AST/SGOT) 70 U/L (15-37) H Alanine Aminotransferase (ALT/SGPT) 168 U/L (12-78) H Alkaline Phosphatase 91 U/L (46-116) C-Reactive Protein, Quantitative 4.2 mg/dL (0.00-0.90) H Total Protein 7.0 G/DL (6.4-8.2) Albumin 2.5 G/DL (3.4-5.0) L Globulin 4.5 g/dL Albumin/Globulin Ratio 0.6 (1.0-2.7) L Arterial Blood pH 7.496 (7.350-7.450) Arterial Blood Partial Pressure CO2 29.4 mmHg (35.0-45.0) L Arterial Blood Partial Pressure O2 90.2 mmHg (75.0-100.0) Arterial Blood HCO3 22.2 mmol/L (22.0-26.0) Arterial Blood Oxygen Saturation 96.7 % (95-100) Arterial Blood Base Excess 0.4 (-2-2) Jacob Test Positive POC Whole Blood Glucose 309 MG/DL (74-106) H Assessment/Plan Assessment/Plan Covid 19 PNA Hypoxia Sinus bradycardia - asymptomatic 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 Continuous cardiac monitoring until O2 needs start improving Anticoagulation and steroid rx Titrate oxygen Anti-viral rx Protein suppl Insulin cov'g by SS Stress test once Covid-free to check chronotropic competence. Chuck Swain MD Jul 18, 2020 23:20
[2020-07-19] VITALS: BP 124/70
[2020-07-19 04:00] VITALS: BP 116/69
[2020-07-19] MEDS: NovoLOG Insulin Flexpen SUBQ SCH ×4 (05:49→21:42)
--- NOTE | 2020-07-19 07:25 | NUR ---
NURSE NOTES: Received patient in bed. Awake, A/O x4. On high flow O2. Patient denies pain at this time. IV in the Right hand, site intact. Bed low and locked, side rails up x2, call light within reach with return demonstration.
--- NOTE | 2020-07-19 07:35 | NUR ---
NURSE HAND-OFF REPORT: Important Events on Shift: Combivent given as PRN but encouraged Patient Status: Stable Diet: Regular Pending Orders: Pending Results/Labs: Pending MD notification: Latest Vital Signs: Temperature 98.1 , Pulse 47 , B/P 116 /69 , Respiratory Rate 20 , O2 SAT 91 , Nasal Cannula, O2 Flow Rate 55.0 . Vital Sign Comment: EKG Rhythm: Sinus Bradycardia Rhythm change?: Y MD Notified?: N Steve Cherry MD Response: Latest Bradley Fall Score: 30 Fall Risk: Medium Risk Safety Measures: Call light Within Reach, Bed Alarm Zone 2, Side Rails Side Rails x2, Bed position Low and Locked. Fall Precautions: Yellow Socks Yellow Gown Door Sign Patient Fall Education Report given to
[2020-07-19 08:00] VITALS: BP 125/72
[2020-07-19] MEDS: Ascorbic Acid 500mg tab ORAL SCH ×2 (09:11→17:05)
[2020-07-19] MEDS: Vitamin D 1000 units Tab ORAL SCH (09:11)
[2020-07-19] MEDS: Solu-MEDROL 40mg Inj IVP SCH ×2 (09:11→21:32)
[2020-07-19] MEDS: Vitamin B Complex Tab ORAL SCH (09:11)
[2020-07-19] MEDS: Enoxaparin 40mg Inj SUBQ SCH ×2 (09:18→21:33)
[2020-07-19] MEDS: Levemir Flexpen SUBQ SCH ×2 (09:19→17:12)
--- NOTE | 2020-07-19 09:20 | General Progress Note ---
Subjective ROS Limited/Unobtainable: No Constitutional: Reports: malaise, weakness HEENT: Reports: no symptoms Cardiovascular: Reports: no symptoms Respiratory: Reports: cough, shortness of breath Gastrointestinal/Abdominal: Reports: no symptoms Genitourinary: Reports: no symptoms Neurologic/Psychiatric: Reports: no symptoms Endocrine: Reports: no symptoms Hematologic/Lymphatic: Reports: no symptoms Allergies: Coded Allergies: No Known Allergies (Unverified , 03/08/17) All Systems: reviewed and negative except above Subjective less sob. on high flow. feels a little better. cxr from yesterday with worsening infiltrates Objective Last 24 Hour Vital Signs Date Time Temp Pulse Resp B/P (MAP) Pulse Ox O2 Delivery O2 Flow Rate FiO2 07/19/20 08:00 98.0 48 22 125/72 (89) 93 07/19/20 08:00 48 07/19/20 07:30 92 High Flow 55.0 100 07/19/20 04:00 47 07/19/20 04:00 98.1 71 20 116/69 (85) 91 07/19/20 03:21 92 High Flow 55.0 100 07/19/20 00:00 97.8 70 20 124/70 (88) 92 07/19/20 00:00 84 07/18/20 23:15 94 High Flow 55.0 100 07/18/20 21:00 High Flow O2 50.0 07/18/20 20:00 71 07/18/20 20:00 98.2 70 20 115/72 (86) 92 07/18/20 19:54 92 High Flow 55.0 100 07/18/20 16:00 115 07/18/20 16:00 98.0 72 20 120/71 (87) 94 07/18/20 12:00 98.3 78 21 114/60 (78) 89 07/18/20 12:00 64 Intake and Output 07/18/20 07/19/20 19:00 07:00 Intake Total 300 ml 720 ml Balance 300 ml 720 ml Intake Oral 300 ml 720 ml # Voids 2 3 Laboratory Tests 07/18/20 20:28: POC Whole Blood Glucose 309H 07/19/20 05:46: POC Whole Blood Glucose 309H Height (Feet): 5 Height (Inches): 6.00 Weight (Pounds): 209 Objective General Appearance: WD/WN, alert Cardiovascular: regular rhythm Respiratory/Chest: lungs clear Assessment/Plan Problem List: (1) Coronavirus infection ICD Codes: B34.2 - Coronavirus infection, unspecified SNOMED: 714032531 Status: stable, not improved Assessment/Plan: cont steroids titrate o2 MDI cough rx dvt/stress ulcer prophylaxis increase Rolando Fitch MD Jul 19, 2020 09:20
[2020-07-19] MEDS ORDERED: Levemir Flexpen SUBQ SCH (10:00)
--- NOTE | 2020-07-19 11:01 | Infectious Diseases Prog Note ---
Assessment/Plan Assessment/Plan A: 1. COVID-19 pneumonia. 2. History of asthma. 3. Elevated liver function tests. 4. Fatty liver 5. DM with hyperglycemia 6. Leukocytosis PLAN: 1. Unable to start Remdesivir due to elevated liver function tests. 2. He has received one dose of ivermectin. 3. Continue Methylprednisone 4. Continue isolation. 5. We will follow up patient clinically. Subjective ROS Limited/Unobtainable: Yes Constitutional: Reports: no symptoms Respiratory: Reports: shortness of breath Gastrointestinal/Abdominal: Reports: no symptoms Genitourinary: Reports: no symptoms Allergies: Coded Allergies: No Known Allergies (Unverified , 03/08/17) Objective Last 24 Hour Vital Signs Date Time Temp Pulse Resp B/P (MAP) Pulse Ox O2 Delivery O2 Flow Rate FiO2 07/19/20 09:00 High Flow O2 50.0 07/19/20 08:00 98.0 48 22 125/72 (89) 93 07/19/20 08:00 48 07/19/20 07:30 92 High Flow 55.0 100 07/19/20 04:00 47 07/19/20 04:00 98.1 71 20 116/69 (85) 91 07/19/20 03:21 92 High Flow 55.0 100 07/19/20 00:00 97.8 70 20 124/70 (88) 92 07/19/20 00:00 84 07/18/20 23:15 94 High Flow 55.0 100 07/18/20 21:00 High Flow O2 50.0 07/18/20 20:00 71 07/18/20 20:00 98.2 70 20 115/72 (86) 92 07/18/20 19:54 92 High Flow 55.0 100 07/18/20 16:00 115 07/18/20 16:00 98.0 72 20 120/71 (87) 94 07/18/20 12:00 98.3 78 21 114/60 (78) 89 07/18/20 12:00 64 Height (Feet): 5 Height (Inches): 6.00 Weight (Pounds): 209 General Appearance: no acute distress HEENT: mucous membranes moist Respiratory/Chest: other - oxygen by high flow nasal cannula Cardiovascular: bradycardia Abdomen: soft, non tender Extremities: no edema Neurologic/Psychiatric: alert, oriented x 3, responsive Laboratory Tests Test 07/18/20 20:28 07/19/20 05:46 POC Whole Blood Glucose 309 MG/DL (74-106) H 309 MG/DL (74-106) H Current Medications Medications (Trade) Dose Ordered Sig/Milagro Route PRN Reason Start Time Stop Time Status Last Admin Dose Admin Acetaminophen (Tylenol) 500 mg Q4H PRN ORAL Mild Pain (Pain Scale 1-3) 07/09/20 21:45 08/08/20 21:44 07/12/20 01:46 Albuterol/ Ipratropium (Combivent Respimat) 2 puff Q2H PRN INH Shortness of Breath 07/09/20 21:45 08/08/20 21:44 07/19/20 09:17 Ascorbic Acid (Vitamin C) 500 mg TWICE A DAY ORAL 07/11/20 09:00 08/10/20 08:59 07/19/20 09:11 Dextrose (Dextrose 50%) 25 ml Q30M PRN IV Hypoglycemia 07/15/20 00:00 10/13/20 00:00 Dextrose (Dextrose 50%) 50 ml Q30M PRN IV Hypoglycemia 07/15/20 00:00 10/13/20 00:00 Enoxaparin Sodium (Lovenox) 40 mg Q12HR SUBQ 07/18/20 21:00 10/16/20 20:59 07/19/20 09:18 Insulin Aspart (NovoLOG) BEFORE MEALS AND HS SUBQ 07/15/20 06:30 10/13/20 06:29 07/19/20 05:49 Insulin Detemir (Levemir) 5 units ONCE SUBQ 07/19/20 10:00 07/19/20 11:00 07/19/20 10:33 Insulin Detemir (Levemir) 15 units BID SUBQ 07/19/20 18:00 10/17/20 17:59 Methylprednisolone Sodium Succinate (Solu-MEDROL) 40 mg Q12HR IVP 07/13/20 21:00 07/23/20 21:30 07/19/20 09:11 Ondansetron HCl (Zofran) 4 mg Q6H PRN IVP Nausea & Vomiting 07/09/20 21:45 08/08/20 21:44 Pantoprazole (Protonix) 40 mg DAILY ORAL 07/10/20 09:00 08/09/20 08:59 07/19/20 09:11 Promethazine HCl/ Codeine (Phenergan with Codeine) 5 ml Q4H PRN ORAL For Cough 07/11/20 15:15 08/10/20 15:14 07/17/20 22:22 Vitamin B Complex (Vitamin B Complex) 1 tab DAILY ORAL 07/11/20 09:00 10/09/20 08:59 07/19/20 09:11 Vitamin D (Vitamin D) 1,000 unit DAILY ORAL 07/14/20 09:30 08/13/20 09:29 07/19/20 09:11 Mian Wing MD Jul 19, 2020 11:01
[2020-07-19 12:00] VITALS: BP 120/68
--- NOTE | 2020-07-19 15:03 | NUR ---
CASE MANAGEMENT:REVIEW 07/19/20 SI: COVID PNA 98.0 48 22 125/72 91% HIGH FLOW 55L/100% WBC+12.5 IS: IV SOLUMEDROL Q12 LOVENOX SQ QD VIT C PO BID VIT D PO QD DUONEB INH Q2HR PRN : TELEMETRY STATUS DCP; FROM HOME
[2020-07-19 16:00] VITALS: BP 115/65
--- NOTE | 2020-07-19 19:29 | NUR ---
NURSE HAND-OFF REPORT: Important Events on Shift:[combivent PRN given x2] Patient Status: [FULL CODE] Diet: [regular] Pending Orders: [] Pending Results/Labs:[] Pending MD notification:[] Latest Vital Signs: Temperature 98.0 , Pulse 58 , B/P 115 /65 , Respiratory Rate 22 , O2 SAT 94 , Nasal Cannula, O2 Flow Rate 55.0 . Vital Sign Comment: [] EKG Rhythm: Sinus Bradycardia Rhythm change?: N MD Notified?: N -Dr. Jo Ann METCALF Response: Latest Bradley Fall Score: 30 Fall Risk: Medium Risk Safety Measures: Call light Within Reach, Bed Alarm Zone 2, Side Rails Side Rails x2, Bed position Low and Locked. Fall Precautions: Yellow Socks Yellow Gown Door Sign Patient Fall Education Report given to [Beatrice THAPA].
--- NOTE | 2020-07-19 19:30 | NUR ---
NURSE NOTES: Received pt AOX4, NOTED IN PRONE POSITION WATCHING tv AND ON HIS PHONE; On High flow NC 50L 100% FiO2, in no acute distress; cardiac tech in place; encouraged to call for assistance; With R hand 22 gauge s/l, intact and patent; call light within reach, bed locked and in low position, side rails x 2; will continue to monitor.
--- NOTE | 2020-07-19 19:37 | Pulmonology Progress Note ---
Subjective ROS Limited/Unobtainable: Yes Constitutional: Reports: no symptoms Gastrointestinal/Abdominal: Reports: no symptoms Musculoskeletal: Denies: pain Allergies: Coded Allergies: No Known Allergies (Unverified , 03/08/17) All Systems: reviewed and negative except above Objective Last 24 Hour Vital Signs Date Time Temp Pulse Resp B/P (MAP) Pulse Ox O2 Delivery O2 Flow Rate FiO2 07/19/20 16:00 98.0 61 22 115/65 (82) 94 07/19/20 16:00 58 07/19/20 14:42 94 High Flow 55.0 100 07/19/20 12:00 72 07/19/20 12:00 97.7 70 20 120/68 (85) 93 07/19/20 11:30 91 High Flow 55.0 100 07/19/20 09:00 High Flow O2 50.0 07/19/20 08:00 98.0 48 22 125/72 (89) 93 07/19/20 08:00 48 07/19/20 07:30 92 High Flow 55.0 100 07/19/20 04:00 47 07/19/20 04:00 98.1 71 20 116/69 (85) 91 07/19/20 03:21 92 High Flow 55.0 100 07/19/20 00:00 97.8 70 20 124/70 (88) 92 07/19/20 00:00 84 07/18/20 23:15 94 High Flow 55.0 100 07/18/20 21:00 High Flow O2 50.0 07/18/20 20:00 71 07/18/20 20:00 98.2 70 20 115/72 (86) 92 07/18/20 19:54 92 High Flow 55.0 100 Intake and Output 07/18/20 07/19/20 19:00 07:00 Intake Total 300 ml 720 ml Balance 300 ml 720 ml Intake Oral 300 ml 720 ml # Voids 2 3 Laboratory Tests 07/18/20 20:28: POC Whole Blood Glucose 309H 07/19/20 05:46: POC Whole Blood Glucose 309H 07/19/20 11:48: POC Whole Blood Glucose [Pending] 07/19/20 17:05: POC Whole Blood Glucose [Pending] Current Medications Medications (Trade) Dose Ordered Sig/Milagro Route PRN Reason Start Time Stop Time Status Last Admin Dose Admin Acetaminophen (Tylenol) 500 mg Q4H PRN ORAL Mild Pain (Pain Scale 1-3) 07/09/20 21:45 08/08/20 21:44 07/12/20 01:46 Albuterol/ Ipratropium (Combivent Respimat) 2 puff Q2H PRN INH Shortness of Breath 07/09/20 21:45 08/08/20 21:44 07/19/20 09:17 Ascorbic Acid (Vitamin C) 500 mg TWICE A DAY ORAL 07/11/20 09:00 08/10/20 08:59 07/19/20 17:05 Dextrose (Dextrose 50%) 25 ml Q30M PRN IV Hypoglycemia 07/15/20 00:00 10/13/20 00:00 Dextrose (Dextrose 50%) 50 ml Q30M PRN IV Hypoglycemia 07/15/20 00:00 10/13/20 00:00 Enoxaparin Sodium (Lovenox) 40 mg Q12HR SUBQ 07/18/20 21:00 10/16/20 20:59 07/19/20 09:18 Insulin Aspart (NovoLOG) BEFORE MEALS AND HS SUBQ 07/15/20 06:30 10/13/20 06:29 07/19/20 16:30 Insulin Detemir (Levemir) 15 units BID SUBQ 07/19/20 18:00 10/17/20 17:59 07/19/20 17:12 Methylprednisolone Sodium Succinate (Solu-MEDROL) 40 mg Q12HR IVP 07/13/20 21:00 07/23/20 21:30 07/19/20 09:11 Ondansetron HCl (Zofran) 4 mg Q6H PRN IVP Nausea & Vomiting 07/09/20 21:45 08/08/20 21:44 Pantoprazole (Protonix) 40 mg DAILY ORAL 07/10/20 09:00 08/09/20 08:59 07/19/20 09:11 Promethazine HCl/ Codeine (Phenergan with Codeine) 5 ml Q4H PRN ORAL For Cough 07/11/20 15:15 08/10/20 15:14 07/17/20 22:22 Vitamin B Complex (Vitamin B Complex) 1 tab DAILY ORAL 07/11/20 09:00 10/09/20 08:59 12/22/20 09:11 Vitamin D (Vitamin D) 1,000 unit DAILY ORAL 07/14/20 09:30 08/13/20 09:29 07/19/20 09:11 Assessment/Plan Assessment/Plan Pulmonary Progress Note date and time: 07/17/20621 Subjectiv ROS Limited/Unobtainable: No Constitutional: Denies: fever, chills Gastrointestinal/Abdominal: Denies: nausea, vomiting, diarrhea Musculoskeletal: Denies: pain Allergies: Coded Allergies: No Known Allergies (Unverified , 03/08/17) All Systems: reviewed and negative except above Subjective not improved still on high flow oxygen Not candidate for Remdesivir - increased LFT's alert Objective Vital Signs noted Objective deferred due to COVID 19 Laboratory Tests noted Assessment/Plan Assessment/Plan acute hypoxemic respiratory failure COVID pneumonia Asthma elevated liver enzymes PLAN monitor imaging PRN monitor ABG PRNt decadron/ID respiratory care ID noted DVT prophylaxis taper oxygen as able monitor respiratory status for change at risk for intubation impression, plan, and exam edited and reviewed in detail care discussed with Chuck Stoll MD Jul 19, 2020 19:37
[2020-07-19 20:00] VITALS: BP 104/62
[2020-07-20] VITALS (25 sets, daily range): BP systolic 97–148; BP diastolic 51–104
--- NOTE | 2020-07-20 02:48 | Cardiology Progress Note ---
Subjective DATE OF SERVICE: Jul 19, 2020 Remains with significanthypoxia; on high flow oxygen now 50-55%. Now with rare episodes of asymptomatic sinus bradycardia; but now in 47-81 range predominantly. No LOC or syncope. ABG (07/17) 7.50//90 (55% FIO2) Objective Last 24 Hour Vital Signs Date Time Temp Pulse Resp B/P (MAP) Pulse Ox O2 Delivery O2 Flow Rate FiO2 07/20/20 00:00 98.9 81 20 104/68 (80) 95 07/19/20 23:46 93 High Flow 55.0 100 07/19/20 21:00 High Flow O2 50.0 07/19/20 20:00 99.1 71 20 104/62 (76) 94 07/19/20 20:00 77 07/19/20 20:00 92 High Flow 55.0 100 07/19/20 16:00 98.0 61 22 115/65 (82) 94 07/19/20 16:00 58 07/19/20 14:42 94 High Flow 55.0 100 07/19/20 12:00 72 07/19/20 12:00 97.7 70 20 120/68 (85) 93 07/19/20 11:30 91 High Flow 55.0 100 07/19/20 09:00 High Flow O2 50.0 07/19/20 08:00 98.0 48 22 125/72 (89) 93 07/19/20 08:00 48 07/19/20 07:30 92 High Flow 55.0 100 07/19/20 04:00 47 07/19/20 04:00 98.1 71 20 116/69 (85) 91 07/19/20 03:21 92 High Flow 55.0 100 HEENT: normal ENT inspection RHYTHM: SB LUNGS: bilateral rhonchi CARDIAC: regular rhythm, normal S1 and S2, bradycardia ABDOMEN: normal bowel sounds, non tender, soft EXTREMITIES: normal range of motion, non-tender Laboratory Tests Test 07/19/20 05:46 07/19/20 11:48 07/19/20 17:05 POC Whole Blood Glucose 309 MG/DL (74-106) H Pending Pending Assessment/Plan Assessment/Plan Covid 19 PNA Hypoxia Sinus bradycardia - asymptomatic 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 Continuous cardiac monitoring until O2 needs start improving Anticoagulation and steroid rx Titrate oxygen Anti-viral rx Protein suppl Insulin cov'g by SS Stress test once Covid-free to check chronotropic competence. Chuck Swain MD Jul 20, 2020 02:48
[2020-07-20] MEDS: NovoLOG Insulin Flexpen SUBQ SCH ×3 (06:13→18:52)
--- NOTE | 2020-07-20 07:20 | NUR ---
NURSE HAND-OFF REPORT: Important Events on Shift: n/a Patient Status: AOX4, stable Diet: CCHO medium Pending Orders: N Pending Results/Labs: N Pending MD notification: N Latest Vital Signs: Temperature 97.4 , Pulse 58 , B/P 132 /79 , Respiratory Rate 20 , O2 SAT 92 , Nasal Cannula, O2 Flow Rate 55.0 . Vital Sign Comment: stable EKG Rhythm: Sinus Bradycardia Rhythm change?: N MD Notified?: N -Dr. Jo Ann METCALF Response: Latest Bradley Fall Score: 30 Fall Risk: Medium Risk Safety Measures: Call light Within Reach, Bed Alarm Zone 2, Side Rails Side Rails x2, Bed position Low and Locked. Fall Precautions: Yellow Socks Yellow Gown Door Sign Patient Fall Education Report given to ELIER Mccrary.
--- NOTE | 2020-07-20 07:21 | NUR ---
NURSE NOTES: Received hand-off report from Hailey Barron RN. Patient in stable condition, on highflow nasal cannula 50L, FiO2 100%, breathing even and unlabored, spO2: 92%, alert and oriented x4. Bed in lowest and locked position, bed alarm on, youth nutritional monitor in place, call light within reach.
[2020-07-20] MEDS: Enoxaparin 40mg Inj SUBQ SCH ×2 (08:18→20:11)
[2020-07-20] MEDS: Solu-MEDROL 40mg Inj IVP SCH ×2 (08:18→20:10)
[2020-07-20] MEDS: Ascorbic Acid 500mg tab ORAL SCH ×2 (08:18→18:00)
[2020-07-20] MEDS: Vitamin D 1000 units Tab ORAL SCH (08:18)
[2020-07-20] MEDS: Vitamin B Complex Tab ORAL SCH (08:18)
--- NOTE | 2020-07-20 08:24 | General Progress Note ---
Subjective ROS Limited/Unobtainable: No Constitutional: Reports: malaise, weakness HEENT: Reports: no symptoms Cardiovascular: Reports: no symptoms Respiratory: Reports: cough, shortness of breath Gastrointestinal/Abdominal: Reports: no symptoms Genitourinary: Reports: no symptoms Neurologic/Psychiatric: Reports: no symptoms Endocrine: Reports: no symptoms Hematologic/Lymphatic: Reports: no symptoms Allergies: Coded Allergies: No Known Allergies (Unverified , 03/08/17) All Systems: reviewed and negative except above Subjective less sob. on high flow. feels a little better. d/w rn. unable to WEAN FIO2 Objective Last 24 Hour Vital Signs Date Time Temp Pulse Resp B/P (MAP) Pulse Ox O2 Delivery O2 Flow Rate FiO2 07/20/20 04:00 97.4 63 20 132/79 (96) 92 07/20/20 04:00 58 07/20/20 03:58 92 High Flow 55.0 100 07/20/20 00:00 98.9 81 20 104/68 (80) 95 07/20/20 00:00 63 07/19/20 23:46 93 High Flow 55.0 100 07/19/20 21:00 High Flow O2 50.0 07/19/20 20:00 99.1 71 20 104/62 (76) 94 07/19/20 20:00 77 07/19/20 20:00 92 High Flow 55.0 100 07/19/20 16:00 98.0 61 22 115/65 (82) 94 07/19/20 16:00 58 07/19/20 14:42 94 High Flow 55.0 100 07/19/20 12:00 72 07/19/20 12:00 97.7 70 20 120/68 (85) 93 07/19/20 11:30 91 High Flow 55.0 100 07/19/20 09:00 High Flow O2 50.0 Intake and Output 07/19/20 07/20/20 19:00 07:00 Intake Total 360 ml 240 ml Output Total 600 ml Balance 360 ml -360 ml Intake Oral 360 ml 240 ml Output Urine Total 600 ml # Voids 3 Laboratory Tests 07/19/20 11:48: POC Whole Blood Glucose [Pending] 07/19/20 17:05: POC Whole Blood Glucose [Pending] Height (Feet): 5 Height (Inches): 6.00 Weight (Pounds): 209 Objective deferred Assessment/Plan Problem List: (1) Coronavirus infection ICD Codes: B34.2 - Coronavirus infection, unspecified SNOMED: [id number] Status: stable, not improved Assessment/Plan: cont steroids titrate o2 MDI cough rx dvt/stress ulcer prophylaxis increase Rolando Fitch MD Jul 20, 2020 08:24
--- NOTE | 2020-07-20 08:30 | NUR ---
NURSE NOTES: Patient spO2 was found to be 87-89% and RT was called. RT placed patient on high flow nasal cannula 50L FiO2 100% plus a nonrebreather 15L, now sPO2 is 93%. Call and voicemail was made to notify Dr. Price and Dr. Cherry of recent change in breathing condition. Awaiting callback and further orders. Will continue to actively monitor patient carefully.
[2020-07-20] MEDS: Levemir Flexpen SUBQ SCH ×2 (08:32→18:53)
--- NOTE | 2020-07-20 09:41 | NUR ---
CASE MANAGEMENT:REVIEW 07/20/20 SI: COVID PNA 97.3 109 21 148/104 92-97% HIGH FLOW 55L/100% WBC+12.5 GLUCOSE+361 IS: IV SOLUMEDROL Q12 LOVENOX SQ QD LEVEMIR SQ BID VIT C PO BID VIT D PO QD DUONEB INH Q2HR PRN : TELEMETRY STATUS DCP; FROM HOME PLAN: TITRATE OXYGEN Addendum: 07/20/20 at 1246 by YANELY GARCÍA LVN LVN ADDENDUM FOR 07/20/20 SI: PH+7.46 PCO2-33.6 PO2+46.8 IS: INTUBATED : TRANSFERRED TO ICU NOW INTUBATED AND TRANSFERRED TO ICU
--- NOTE | 2020-07-20 10:10 | NUR ---
NURSE NOTES: Called Dr. Silva, no answer and phone is ringing continuously.
--- NOTE | 2020-07-20 10:12 | NUR ---
NURSE NOTES: Dr. Cherry aware of nonrebreather and high flow nasal cannula simultaneous oxygen therapy and is now saturating at 92%. Dr. Cherry ordered ABGs, noted and will carry out.
--- NOTE | 2020-07-20 10:20 | NUR ---
NURSE NOTES: Notified RT to draw ABGs, RT on the way.
--- NOTE | 2020-07-20 10:50 | NUR ---
NURSE NOTES: Attempted to call Dr. Silva, no answer.
--- NOTE | 2020-07-20 10:51 | NUR ---
NURSE NOTES: Relayed ABG results to Dr. Cherry, Dr. Cherry provided orders to intubate patient and a transfer to ICU.
--- NOTE | 2020-07-20 11:00 | NUR ---
NURSE NOTES: Called Dr. Diana from ER, was told that she will be arriving shortly to intubate.
--- NOTE | 2020-07-20 11:25 | Infectious Diseases Prog Note ---
Assessment/Plan Assessment/Plan antibiotics : none A 1. COVID-19 pneumonia on 55 liters of oxygen with O2 saturation 91 %. s/p ivermectin x 2 2. History of asthma. 3. Elevated liver function tests improving PLAN: 1. Continue solumedrol 2. Continue isolation. 3. We will follow up patient clinically Subjective Constitutional: Denies: fever, chills Respiratory: Reports: shortness of breath, dry cough - mild Gastrointestinal/Abdominal: Denies: nausea, vomiting, diarrhea Musculoskeletal: Denies: pain Allergies: Coded Allergies: No Known Allergies (Unverified , 03/08/17) Objective Last 24 Hour Vital Signs Date Time Temp Pulse Resp B/P (MAP) Pulse Ox O2 Delivery O2 Flow Rate FiO2 07/20/20 09:00 Non-Rebreather 15.0 07/20/20 08:00 97.3 109 21 148/104 (119) 97 109 109 07/20/20 08:00 78 07/20/20 04:00 97.4 63 20 132/79 (96) 92 07/20/20 04:00 58 07/20/20 03:58 92 High Flow 55.0 100 07/20/20 00:00 98.9 81 20 104/68 (80) 95 07/20/20 00:00 63 07/19/20 23:46 93 High Flow 55.0 100 07/19/20 21:00 High Flow O2 50.0 07/19/20 20:00 99.1 71 20 104/62 (76) 94 07/19/20 20:00 77 07/19/20 20:00 92 High Flow 55.0 100 07/19/20 16:00 98.0 61 22 115/65 (82) 94 07/19/20 16:00 58 07/19/20 14:42 94 High Flow 55.0 100 07/19/20 12:00 72 07/19/20 12:00 97.7 70 20 120/68 (85) 93 07/19/20 11:30 91 High Flow 55.0 100 Height (Feet): 5 Height (Inches): 6.00 Weight (Pounds): 209 Laboratory Tests Test 07/19/20 11:48 07/19/20 17:05 07/20/20 08:27 07/20/20 10:25 POC Whole Blood Glucose Pending Pending 361 MG/DL (74-106) H Arterial Blood pH 7.464 (7.350-7.450) Arterial Blood Partial Pressure CO2 33.6 mmHg (35.0-45.0) L Arterial Blood Partial Pressure O2 46.8 mmHg (75.0-100.0) Arterial Blood HCO3 23.6 mmol/L (22.0-26.0) Arterial Blood Oxygen Saturation 85.2 % (95-100) *L Arterial Blood Base Excess 0.6 (-2-2) Jacob Test Positive Test 07/20/20 10:59 POC Whole Blood Glucose 336 MG/DL (74-106) H Current Medications Medications (Trade) Dose Ordered Sig/Milagro Route PRN Reason Start Time Stop Time Status Last Admin Dose Admin Acetaminophen (Tylenol) 500 mg Q4H PRN ORAL Mild Pain (Pain Scale 1-3) 07/09/20 21:45 08/08/20 21:44 07/12/20 01:46 Albuterol/ Ipratropium (Combivent Respimat) 2 puff Q2H PRN INH Shortness of Breath 07/09/20 21:45 08/08/20 21:44 07/19/20 09:17 Ascorbic Acid (Vitamin C) 500 mg TWICE A DAY ORAL 07/11/20 09:00 08/10/20 08:59 07/20/20 08:18 Dextrose (Dextrose 50%) 25 ml Q30M PRN IV Hypoglycemia 07/15/20 00:00 10/13/20 00:00 Dextrose (Dextrose 50%) 50 ml Q30M PRN IV Hypoglycemia 07/15/20 00:00 10/13/20 00:00 Enoxaparin Sodium (Lovenox) 40 mg Q12HR SUBQ 07/18/20 21:00 10/16/20 20:59 07/20/20 08:18 Insulin Aspart (NovoLOG) BEFORE MEALS AND HS SUBQ 07/15/20 06:30 10/13/20 06:29 07/20/20 11:01 Insulin Detemir (Levemir) 15 units BID SUBQ 07/19/20 18:00 10/17/20 17:59 07/20/20 08:32 Methylprednisolone Sodium Succinate (Solu-MEDROL) 40 mg Q12HR IVP 07/13/20 21:00 07/23/20 21:30 07/20/20 08:18 Ondansetron HCl (Zofran) 4 mg Q6H PRN IVP Nausea & Vomiting 07/09/20 21:45 08/08/20 21:44 Pantoprazole (Protonix) 40 mg DAILY ORAL 07/10/20 09:00 08/09/20 08:59 07/20/20 08:18 Promethazine HCl/ Codeine (Phenergan with Codeine) 5 ml Q4H PRN ORAL For Cough 07/11/20 15:15 08/10/20 15:14 07/17/20 22:22 Vitamin B Complex (Vitamin B Complex) 1 tab DAILY ORAL 07/11/20 09:00 10/09/20 08:59 07/20/20 08:18 Vitamin D (Vitamin D) 1,000 unit DAILY ORAL 07/14/20 09:30 08/13/20 09:29 07/20/20 08:18 Jose Alberto MD Jul 20, 2020 11:25
--- NOTE | 2020-07-20 11:30 | NUR ---
RESPIRATORY NOTE: Pt successfully intubated by Dr. Diana, breath sounds are clear, ETT 7.5, 22cm at the lip, ETT secured with an anchor fast. Vent settings AC 15 500 100% +5.
--- NOTE | 2020-07-20 11:33 | NUR ---
NURSE NOTES: RT, RN, and Dr. Diana bedside.
--- NOTE | 2020-07-20 11:50 | NUR ---
NURSE NOTES: Intubation initiated by Dr. Diana.
--- NOTE | 2020-07-20 12:10 | NUR ---
TRANSFER TO FLOOR: Patient transferred to ICU room J, per Dr. Cherry. Report given to Maggie OFFAL ICER POULTRY. Belongings and medications given to Maggie OFFAL ICER POULTRY. Family and or S/O informed of transfer by Dr. Cherry. Addendum: 07/20/20 at 1259 by Hermann Vázquez RN tomasa Dietrich novolog given to ELIER Serrano.
--- NOTE | 2020-07-20 12:11 | NUR ---
NURSE NOTES: Pt received from ELIER Mccrary. Belongings and medications received and signed for. Pt transferred from [facility] post intubation. Orally intubated 7.5, 22cm at the lip line. AC 22, TV 500, FiO2 100%, PEEP 8. O2sat 98%. Pt is currently NPO. PIV Rt hand #22g. Bed locked and in lowest position, with call light within reach. Will call Dr Ortega for further orders. Will monitor.
[2020-07-20] MEDS ORDERED: Lidocaine 1% Plain 30 ml INJ PRN (13:00)
[2020-07-20] MEDS ORDERED: Heparin1,000 units/500ml Premix(Conc:2 units/ml) IV PRN (13:00)
--- NOTE | 2020-07-20 13:10 | Diagnostic Imaging Report ---
Indication: Post intubation Technique: One view of the chest Comparison: 07/18/2020 Findings: Interim endotracheal intubation, endotracheal tube tip in good position approximately 4 cm above the blaine. Bilateral infiltrates are probably mostly unchanged, although the there may be slightly increased disease in the right mid and lower lung as the previously demonstrated right upper lobe infiltrate appears less discrete the heart size is normal. The pleural spaces remain clear. Impression: Satisfactory endotracheal intubation Stable to slightly worse bilateral infiltrates
--- NOTE | 2020-07-20 13:19 | NUR ---
RD ASSESSMENT & RECOMMENDATIONS SEE CARE ACTIVITY FOR COMPLETE ASSESSMENT DAILY ESTIMATED NEEDS: Needs based on Critical care 72kg abw 22-28 kcals/kg 9572-8201 total kcals 1.2-2 g protein/kg 86-144 g total protein 25-30 mL/kg 4309-7264 total fluid mLs NUTRITION DIAGNOSIS: Altered nutrition related lab values r/t hyperglycemia as evidenced by BG 243-344, POC 357. ENTERAL NUTRITION RECOMMENDATIONS: Vital 1.2 for critical care goal of 60ml/hr x24 hrs to provide 1440ml, 1728 kcal, 108g pro, 1168ml free H2O - When medically stable for feeds, rec to obtain GI access, initiate Vital 1.2 for critical care and carb control. - Start @30ml/hr for 6 hrs, advance as tolerated 10ml/hr q4-6 hrs to goal - Flush per , HOB over 30 degrees ADDITIONAL RECOMMENDATIONS: 1) Rec to check HgA1C for eval 2) Insulin regimen for improved BG- now on levemir + niss Now intubated-> TF recs as above 3) Monitor resp status, currently on high flow O2 w/ good po intake Now intubated (07/20), TF recs as above
[2020-07-20] MEDS: D5 1/2NS 1,000 ML IV SCH (13:23)
[2020-07-20] MEDS: propofoL 1,000mg/100ml 100 ML IV SCH ×3 (13:26→22:25)
--- NOTE | 2020-07-20 13:46 | NUR ---
RADIOLOGY DEPT., CHEST X-RAY FOR E/TT PLCMT COMPLETED.KAMILA
[2020-07-20] MEDS: fentaNYL 2500mcg/NS 250ml 250 ML IV SCH (13:53)
--- NOTE | 2020-07-20 14:00 | NUR ---
NURSE NOTES: Pt turned and repositioned. Oral care done. Dr Ortega assessed pt at bedside. Updated him on pt's current condition. New orders received and acknowledged.
--- NOTE | 2020-07-20 14:03 | Emergency Room Report ---
History of Present Illness General Chief Complaint: Dyspnea/Respdistress Source: Patient, Medical Record, EMS Present Illness HPI 30-year-old male with history of hypoxia secondary to multifocal pneumonia from Covid admitted for respiratory failure. PaO2 was found to be critically low on 15 L nonrebreather plus high flow nasal cannula. I was asked to intubate patient by primary team MD Dr Cherry. Patient was able to verbally consent for the procedure. Risks, benefits, alternatives were discussed. Procedure Note: Endotracheal Intubation by me: Pre assessment performed. See preceding note for details. Pre-oxygenation performed with 100% oxygen RSI: Performed w/o complication or hypoxic events. Medications as ordered --etomidate and rocuronium Emergency Endotracheal Intubation: Consent unable to be obtained due to emergent nature of procedure and airway assessment this patient was prepared for en dotracheal intubation with preoxygenation and airway positioning. The patient underwent rapid sequence induction and endotracheal intubation utilizing direct visualization laryngoscopy. The endotracheal tube was placed between the vocal cords and placement was confirmed with fogging of the tube, end title CO2, and equal bilateral chest rise as well as absence of borborygmi over the epigastrium. Chest x-ray was obtained for final confirmation. There were no complications. Blade: Mac 4 ET Tube: 7.5 cm Depth: 22 cm at the lip Complications: Severe hypoxia, however patient was already hypoxic prior to intubation. Intubation confirmed by colorimetric CO2, equal breath sounds, quiet over the stomach. Intubated with full C spine precautions, with the assistance of orchid hand. Chest X-ray: Multifocal Covid pneumonia. Groundglass opacities. No pneumothorax. No pneumothorax. ETT in appropriate position above Natalia. OG/NG tube in appropriate position Indication: ETT placement confirmation Impression: Appropriately positioned ETT Views: 1 view The X-rays were independently viewed by me and interpreted contemporaneously by me. 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 COVID-19 Screening: Positive COVID-19 COVID-19 Testing Source: 1 week ago Nursing Documentation-PMH Hx Cardiac Problems: No Hx Hypertension: Yes Hx Asthma: Yes Hx Cancer: No Hx Gastrointestinal Problems: No Hx Neurological Problems: No Physical Exam Vital Signs Date Time Temp Pulse Resp B/P (MAP) Pulse Ox O2 Delivery O2 Flow Rate FiO2 07/16/20 07:05 94 High Flow 55.0 100 07/16/20 08:00 98.1 53 20 123/65 (84) Sp02 EP Interpretation: reviewed, abnormal Medical Decision Making Diagnostic Impression: Primary Impression: Coronavirus infection Additional Impressions: Hypoxia Respiratory failure Last Vital Signs Date Time Temp Pulse Resp B/P (MAP) Pulse Ox O2 Delivery O2 Flow Rate FiO2 07/20/20 13:53 30 118/79 Mechanical Ventilator 100 07/20/20 12:08 82 07/20/20 09:00 15.0 07/20/20 08:00 97.3 97 Disposition: ADMITTED INPATIENT Admit Decision Time: 12:00 Condition: Critical Referrals: NOT CHOSEN IPA/,REFERRING (PCP) Fallon Diana D.O. Jul 20, 2020 14:03
--- NOTE | 2020-07-20 15:15 | Pulmonolgy Critical Care Note ---
Critical Care - Asmt/Plan Assessment/Plan: Pulmonary CCM Progress Noted Subjective ROS Limited/Unobtainable: Yes Constitutional: Reports: no symptoms Gastrointestinal/Abdominal: Reports: no symptoms Musculoskeletal: Denies: pain Allergies: Coded Allergies: No Known Allergies (Unverified , 03/08/17) All Systems: reviewed and negative except above Not candidate for Remdesivir - increased LFT's Intubated earlier,CXR ETT satisfactory,bilateral infiltrates Sedated on the ventilator Propofol/Fentenyl gtt Medications noted Objective Vital Signs noted PE deferred due to COVID 19 Laboratory Tests noted Assessment/Plan Assessment/Plan Acute hypoxemic respiratory failure In ICU on ventilator COVID pneumonia Asthma elevated liver enzymes PLAN ACVC ABG PRN monitor imaging PRN monitor ABG PRN decadron/Antivirals/AB per ID respiratory care ID noted DVT prophylaxis taper FIO2 as able monitor respiratory status for change at risk for intubation impression, plan, and exam edited and reviewed in detail care discussed with rack washer - Objective Last 24 Hour Vital Signs Date Time Temp Pulse Resp B/P (MAP) Pulse Ox O2 Delivery O2 Flow Rate FiO2 07/20/20 15:00 66 22 110/69 (83) 95 07/20/20 14:30 76 24 119/72 (88) 94 07/20/20 14:15 84 25 120/85 (97) 94 07/20/20 14:11 26 122/77 Mechanical Ventilator 100 07/20/20 14:08 26 122/77 Mechanical Ventilator 100 07/20/20 14:00 87 25 122/77 (92) 96 07/20/20 13:56 28 118/79 Mechanical Ventilator 100 07/20/20 13:53 30 118/79 Mechanical Ventilator 100 07/20/20 13:45 90 28 118/79 (92) 96 07/20/20 13:41 27 114/76 Mechanical Ventilator 100 07/20/20 13:30 96 28 114/76 (89) 94 07/20/20 13:26 38 118/74 Mechanical Ventilator 100 07/20/20 13:24 99.1 100 33 118/74 (89) 94 07/20/20 12:08 82 19 100 07/20/20 12:00 100 07/20/20 12:00 Mechanical Ventilator 07/20/20 11:45 108 07/20/20 09:00 Non-Rebreather 15.0 07/20/20 08:00 97.3 109 21 148/104 (119) 97 109 109 07/20/20 08:00 78 07/20/20 04:00 97.4 63 20 132/79 (96) 92 07/20/20 04:00 58 07/20/20 03:58 92 High Flow 55.0 100 07/20/20 00:00 98.9 81 20 104/68 (80) 95 07/20/20 00:00 63 07/19/20 23:46 93 High Flow 55.0 100 07/19/20 21:00 High Flow O2 50.0 07/19/20 20:00 99.1 71 20 104/62 (76) 94 07/19/20 20:00 77 07/19/20 20:00 92 High Flow 55.0 100 07/19/20 16:00 98.0 61 22 115/65 (82) 94 07/19/20 16:00 58 Accucheck: 336 Critical Care - Subjective ROS Limited/Unobtainable: Yes Condition: critical IV Access: peripheral EKG Rhythm: Sinus Rhythm FI02: 100 Vent Support Breath Rate: 15 Vent Support Mode: AC Vent Tidal Volume: 500 Sputum Amount: None PEEP: 5.0 PIP: 28 I&O: Intake and Output 07/19/20 07/20/20 19:00 07:00 Intake Total 360 ml 240 ml Output Total 600 ml Balance 360 ml -360 ml Intake Oral 360 ml 240 ml Output Urine Total 600 ml # Voids 3 Chuck Ortega MD Jul 20, 2020 15:15
--- NOTE | 2020-07-20 16:00 | NUR ---
NURSE NOTES: Biswas Catheter placed. Pt tolerated procedure well. No distress noted.
--- NOTE | 2020-07-20 17:00 | NUR ---
NURSE NOTES: OGT placed. Awaiting KUB placement confirmation
--- NOTE | 2020-07-20 18:01 | Diagnostic Imaging Report ---
Indication: Post nasogastric tube placement Technique: Supine view of the upper abdomen Comparison: none Findings: There is a nasogastric tube in place, coiled in the gastric fundus. Bowel gas pattern is unremarkable. Impression: Satisfactory nasogastric intubation
--- NOTE | 2020-07-20 18:50 | NUR ---
NURSE NOTES: Pt fully cleaned and linens changed. No BM noted at this time. Dr Swain was on the unit, updated him on pt's current condition. Dr Swain aware of pt's asymptomatic bradycardia. No new orders given at this time.
--- NOTE | 2020-07-20 19:16 | NUR ---
NURSE NOTES: Spoke to pt's girlfriend and updated her on pt's current condition and answered all of her questions.
--- NOTE | 2020-07-20 19:43 | NUR ---
NURSE NOTES: RT and LT FA #20g PIVs inserted.
[2020-07-20] MEDS: Dyna-Hex 2% Top Sol 2oz TOPIC SCH (20:10)
--- NOTE | 2020-07-20 20:55 | NUR ---
NURSE NOTES: OGT @ 65cm at the lip line. Proper placement confirmed with KUB
[2020-07-20] MEDS ORDERED: Dyna-Hex 2% Top Sol 2oz TOPIC SCH (21:00)
--- NOTE | 2020-07-20 22:00 | NUR ---
NURSE NOTES: Pt remains sedated, RASS -2, awakens to touch. Propofol running at 50mcg/kg/min and Fentanyl running at 90mcg/hr. Pt observed to be calm and comfortable at this time.
--- NOTE | 2020-07-20 22:19 | Cardiology Progress Note ---
Subjective DATE OF SERVICE: Jul 20, 2020 Condition has further deteriorated; patient was desaturating on 100% FIO2 - and req'd intubation and mechanical ventilation. Still with episodes of asymptomatic sinus bradycardia; but now in 47-81 range predominantly. No LOC or syncope. ABG (07/20) 7.46/34/47 (100% FIO2) Objective Last 24 Hour Vital Signs Date Time Temp Pulse Resp B/P (MAP) Pulse Ox O2 Delivery O2 Flow Rate FiO2 07/20/20 21:00 59 22 97/54 (68) 96 07/20/20 20:56 22 94/54 Mechanical Ventilator 100 07/20/20 20:08 22 114/52 Mechanical Ventilator 100 07/20/20 20:00 62 07/20/20 20:00 98.5 62 22 107/55 (72) 96 07/20/20 20:00 100 07/20/20 20:00 Mechanical Ventilator 07/20/20 19:56 22 107/54 Mechanical Ventilator 100 07/20/20 19:08 22 164/119 Mechanical Ventilator 100 07/20/20 19:00 66 22 126/66 (86) 96 07/20/20 18:58 79 33 100 07/20/20 18:56 22 111/61 Mechanical Ventilator 100 07/20/20 18:30 55 22 115/72 (86) 95 07/20/20 18:24 22 105/61 Mechanical Ventilator 100 07/20/20 18:23 22 105/61 Mechanical Ventilator 100 07/20/20 18:08 22 101/61 Mechanical Ventilator 100 07/20/20 18:00 60 22 101/61 (74) 94 07/20/20 17:56 22 112/60 Mechanical Ventilator 100 07/20/20 17:30 60 22 102/62 (75) 94 07/20/20 17:08 22 88/60 Mechanical Ventilator 100 07/20/20 17:00 64 22 111/72 (85) 96 07/20/20 16:56 22 91/58 Mechanical Ventilator 100 07/20/20 16:30 62 22 101/61 (74) 95 07/20/20 16:08 22 104/64 Mechanical Ventilator 100 07/20/20 16:00 65 07/20/20 16:00 Mechanical Ventilator 07/20/20 16:00 100 07/20/20 16:00 98.3 65 22 104/64 (77) 95 07/20/20 15:56 22 114/70 Mechanical Ventilator 100 07/20/20 15:53 22 114/70 Mechanical Ventilator 100 07/20/20 15:41 23 116/72 Mechanical Ventilator 100 07/20/20 15:38 23 116/72 Mechanical Ventilator 100 07/20/20 15:30 76 23 116/72 (87) 96 07/20/20 15:26 22 110/68 Mechanical Ventilator 100 07/20/20 15:23 22 110/68 Mechanical Ventilator 100 07/20/20 15:11 22 110/69 Mechanical Ventilator 100 07/20/20 15:08 22 110/69 Mechanical Ventilator 100 07/20/20 15:00 66 22 110/69 (83) 95 07/20/20 14:56 22 114/72 Mechanical Ventilator 100 07/20/20 14:53 22 114/72 Mechanical Ventilator 100 07/20/20 14:41 22 119/72 Mechanical Ventilator 100 07/20/20 14:41 75 22 100 07/20/20 14:38 22 119/72 Mechanical Ventilator 100 07/20/20 14:30 76 24 119/72 (88) 94 07/20/20 14:26 23 120/85 Mechanical Ventilator 100 07/20/20 14:23 23 120/85 Mechanical Ventilator 100 07/20/20 14:15 84 25 120/85 (97) 94 07/20/20 14:11 26 122/77 Mechanical Ventilator 100 07/20/20 14:08 26 122/77 Mechanical Ventilator 100 07/20/20 14:00 87 25 122/77 (92) 96 07/20/20 13:56 28 118/79 Mechanical Ventilator 100 07/20/20 13:53 30 118/79 Mechanical Ventilator 100 07/20/20 13:45 90 28 118/79 (92) 96 07/20/20 13:41 27 114/76 Mechanical Ventilator 100 07/20/20 13:30 96 28 114/76 (89) 94 07/20/20 13:26 38 118/74 Mechanical Ventilator 100 07/20/20 13:24 99.1 100 33 118/74 (89) 94 07/20/20 12:08 82 19 100 07/20/20 12:08 82 19 90 07/20/20 12:00 100 07/20/20 12:00 Mechanical Ventilator 07/20/20 11:45 108 07/20/20 09:00 Non-Rebreather 15.0 07/20/20 08:00 97.3 109 21 148/104 (119) 97 109 109 07/20/20 08:00 78 07/20/20 04:00 97.4 63 20 132/79 (96) 92 07/20/20 04:00 58 07/20/20 03:58 92 High Flow 55.0 100 07/20/20 00:00 98.9 81 20 104/68 (80) 95 07/20/20 00:00 63 07/19/20 23:46 93 High Flow 55.0 100 HEENT: Orally intubated, Mechanically Ventilated, Thin secretions ET Tube RHYTHM: SB LUNGS: bilateral rhonchi CARDIAC: regular rhythm, normal S1 and S2, bradycardia ABDOMEN: normal bowel sounds, non tender, soft EXTREMITIES: normal range of motion, non-tender Laboratory Tests Test 07/20/20 08:27 07/20/20 10:25 07/20/20 10:59 07/20/20 15:29 POC Whole Blood Glucose 361 MG/DL (74-106) H 336 MG/DL (74-106) H Arterial Blood pH 7.464 (7.350-7.450) 7.437 (7.350-7.450) Arterial Blood Partial Pressure CO2 33.6 mmHg (35.0-45.0) L 39.0 mmHg (35.0-45.0) Arterial Blood Partial Pressure O2 46.8 mmHg (75.0-100.0) 70.5 mmHg (75.0-100.0) L Arterial Blood HCO3 23.6 mmol/L (22.0-26.0) 25.7 mmol/L (22.0-26.0) Arterial Blood Oxygen Saturation 85.2 % (95-100) *L 94.3 % (95-100) L Arterial Blood Base Excess 0.6 (-2-2) 1.6 (-2-2) Jacob Test Positive Positive Assessment/Plan Assessment/Plan Covid 19 PNA Acute respiratory failure with Hypoxia Sinus bradycardia 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 Continuous cardiac monitoring Anticoagulation and steroid rx Titrate oxygen Anti-viral rx Protein suppl Insulin cov'g by SS Stress test once Covid-free to check chronotropic competence. Chuck Swain MD Jul 20, 2020 22:19
--- NOTE | 2020-07-20 23:20 | NUR ---
NURSE NOTES: Received patient from ELIER Serrano. Patient is observed resting in bed and remains sedated with a RASS score of -2 noted. FLACC score of 0 noted upon assessment. Pt is currently orally intubated et tube size 7.5 noted to be 22 @ lip and pt appears to be tolerating current vent settings well with an O2 saturation of of 96% at this time. Vent settings as follows: AC 22 TV 500 FiO2 100% PEEP 8. Bilateral lower lobe breath sounds noted to be diminished upon auscultation with rhonchi noted in bilateral upper lobes. Pt noted to be SB on tele monitor with a HR of 49, BP remains stable at this time. Dr Swain aware of HR, pt remains asymptomatic. L FA 20g, R FA 20g and R Hand 22g IV Catheters noted which remain asymptomatic, intact and patent. D5 1/2NS is currently infusing at 50mL/hr as ordered, Fentanyl infusing at 90mcg/hr, Propofol infusing at 50 mcg/kg/min and Dopamine infusing at 8mcg/kg/min. Current drips noted to be therapeutic at this time. Active bowel sounds noted in all four quadrants; abdomen remains flat, soft and nontender. OG tube noted which remains secured and patent, pt remains NPO as ordered. Biswas catheter noted which continues to drain urine by gravity. Diagnostics reviewed at bedside. Skin remains intact. Bilateral soft wrist restraints remain in place for pt safety. Pt noted to be attempting to pull medical devices despite pt education. CMS remains intact. Will continue to assess pt for removal criteria. Fall, Aspiration and Skin precautions observed. Pt repositioned for comfort and safety. Pt remains resting in bed; Bed remains in the lowest position with the safety wheels engaged, call light within reach, side rails up x3 and bed alarm activated. Will continue plan of care. Will continue to monitor.
--- NOTE | 2020-07-20 23:27 | NUR ---
NURSE HAND-OFF REPORT: Latest Vital Signs: Temperature 98.5 , Pulse 49 , B/P 104 /51 , Respiratory Rate 22 , O2 SAT 95 , Mechanical Ventilator, FiO2 100% . Vital Sign Comment: EKG Rhythm: Sinus Bradycardia Rhythm change?: N Notified?: Dr Brynn charles MD Response: Latest Bradley Fall Score: 30 Fall Risk: Medium Risk Safety Measures: Call light Within Reach, Bed Alarm Zone 2, Side Rails Side Rails x2, Bed position Low and Locked. Fall Precautions: Yellow Socks Yellow Gown Patient Fall Education Report given to ELIER Bell.
[2020-07-21] VITALS (46 sets, daily range): BP systolic 102–140; BP diastolic 50–66
[2020-07-21] MEDS: NovoLOG Insulin Flexpen SUBQ SCH ×4 (00:41→17:25)
--- NOTE | 2020-07-21 01:00 | NUR ---
NURSE NOTES: Pt provided with a bed bath, oral care and linen change. Pt appears to continue to tolerate current vent settings well and remains free from s/sx of acute respiratory distress. Physical status remains consistent with previous assessment. Fentanyl and Propofol continue to infuse without incident, no change in rate. RASS score of -2 noted with a FLACC score of 0 noted. Pt remains continues to attempt to pull medical devices despite restraints, bilateral soft wrist restraints remain in place for pt safety. Will continue to provide education, reorient patient and assess for removal criteria. Fall, Aspiration and Skin precautions observed. Pt remains resting in bed; Bed remains in the lowest position with the safety wheels engaged, call light within reach, side rails up x3 and bed alarm activated. Will continue plan of care. Will continue to monitor.
--- NOTE | 2020-07-21 01:56 | NUR ---
NURSE NOTES: No propofol to waste, tubing disposed of appropriately. COVID + room and therefore not sent to pharmacy witnessed by ELIER Gilliam
[2020-07-21] MEDS: propofoL 1,000mg/100ml 100 ML IV SCH ×6 (02:02→20:45)
--- NOTE | 2020-07-21 03:00 | NUR ---
NURSE NOTES: Bedside assessment performed. Pt appears to continue to tolerate current vent settings well and remains free from s/sx of acute respiratory distress. BP remains stable. Physical status remains consistent with previous assessment. Fentanyl and Propofol continue to infuse without incident, no change in rate. RASS score of -2 noted with a FLACC score of 0 noted. Will continue to assess pt for restraint removal criteria. Diversional activities remain unsuccessful at this time. Fall, Aspiration and Skin precautions observed. Pt remains resting in bed; Bed remains in the lowest position with the safety wheels engaged, call light within reach, side rails up x3 and bed alarm activated. Will continue plan of care. Will continue to monitor.
--- NOTE | 2020-07-21 05:00 | NUR ---
NURSE NOTES: Pt provided with a partial bed bath and oral care. Bedside assessment performed. Pt appears to continue to tolerate current vent settings well and remains free from s/sx of acute respiratory distress. BP remains stable. Physical status remains consistent with previous assessment. Fentanyl titrated to RASS -2, Propofol continue to infuse without incident, no change in rate. FLACC score of 0 noted. Will continue to assess pt for restraint removal criteria. Diversional activities remain unsuccessful at this time. Fall, Aspiration and Skin precautions observed. Pt remains resting in bed; Bed remains in the lowest position with the safety wheels engaged, call light within reach, side rails up x3 and bed alarm activated. Will continue plan of care. Will continue to monitor.
[2020-07-21 06:09] LABS: ANION GAP 4 mmol/L (5-15); BLOOD UREA NITROGEN 18 mg/dL (7-18); CALCIUM 8.2 MG/DL (8.5-10.1); CARBON DIOXIDE 27 MMOL/L (21-32); CHLORIDE 102 MMOL/L (98-107); CREATININE 0.8 MG/DL (0.55-1.30); POTASSIUM 4.5 MMOL/L (3.5-5.1); SODIUM 133 MMOL/L (136-145)
--- NOTE | 2020-07-21 06:30 | NUR ---
RD ASSESSMENT & RECOMMENDATIONS SEE CARE ACTIVITY FOR COMPLETE ASSESSMENT DAILY ESTIMATED NEEDS: Needs based on Critical care 72kg abw 22-28 kcals/kg 8961-4627 total kcals 1.2-2 g protein/kg 86-144 g total protein 25-30 mL/kg 6728-3473 total fluid mLs NUTRITION DIAGNOSIS: * Swallowing difficulty R/T respiratory failure as evidenced by pt now orally intubated, NPO. * Altered nutrition related lab values r/t hyperglcyemia as evidenced by BG POC glu in the 300's, pt on Solumedrol CURRENT TF: NPO ENTERAL NUTRITION RECOMMENDATIONS: Vital 1.2 for critical care and carb control @ goal of 55ml/hr x24 hrs to provide 1320ml, 1584kcal, 99g prot, 1071ml free water - When medically stable for feeds, initiate Vital1.2 for critical care and carb control. - Start @30ml/hr for 6 hrs, advance as tolerated 10ml/hr q4-6 hrs to goal - Flush per JUAN A METCALF over 30 degrees WITH DIPRIVAN RUNNING @ 28.44ML/HR (provides 751kcal) -> rec Vital AF 1.2 @ goal rate of 30ml/hr x 24 hrs to provide 720ml, 864kcal, 54g prot ADDITIONAL RECOMMENDATIONS: 1) Rec to check HgA1C for eval 2) Insulin regimen for improved BG- now on levemir + niss 3) Monitor resp status, currently on high flow O2 w/ good po intake Now intubated (07/20), TF recs as above 4) Monitor Diprivan rate for need to adjust TF goal rate .
[2020-07-21 06:59] LABS: HEMATOCRIT 47.1 % (42.0-52.0); HEMOGLOBIN 15.4 G/DL (14.2-18.0); MEAN CORPUSCULAR VOLUME 94 FL (80-99); PLATELET COUNT 485 K/UL (150-450); RED BLOOD COUNT 5.04 M/UL (4.70-6.10); RED CELL DISTRIBUTION WIDTH 11.7 % (11.6-14.8); WHITE BLOOD COUNT 12.5 K/UL (4.8-10.8)
--- NOTE | 2020-07-21 07:22 | NUR ---
NURSE HAND-OFF REPORT: Latest Vital Signs: Temperature 98.7 , Pulse 52 , B/P 102 /53 , Respiratory Rate 22 , O2 SAT 95 , Mechanical Ventilator, O2 Flow Rate . Vital Sign Comment: EKG Rhythm: Sinus Bradycardia Rhythm change?: N Notified?: Ildefonso Cherry MD Response: Latest Bradley Fall Score: 30 Fall Risk: Medium Risk Safety Measures: Call light Within Reach, Bed Alarm Zone 2, Side Rails Side Rails x2, Bed position Low and Locked. Fall Precautions: Yellow Socks Yellow Gown Patient Fall Education Report given to ELIER Mack.
--- NOTE | 2020-07-21 07:23 | NUR ---
NURSE NOTES: Patient received lying in bed, opens eyes briefly, on sedation, RASS -2. Orally intubated, with settings of AC-22, TV-500, FiO2-100%, PEEP -8, no acute respiratory distress. Denies pain. Running on D51/2 at 50 ml/hr, sedation: Fentanyl @100 mcg/hr and Propofol at 50mcg/kg/min, running on peripheral IV lines, no infiltration. Patient pending ion PICC line placement. Biswas catheter in place and draining on yellow urine. Sinus bradycardia on the monitor as baseline, rate of 50s. Safety measures implemented, bed kept at low position. Will monitor the patient.
[2020-07-21] MEDS: D5 1/2NS 1,000 ML IV SCH (08:53)
[2020-07-21] MEDS: Ascorbic Acid 500mg tab ORAL SCH ×2 (08:54→16:56)
[2020-07-21] MEDS: Vitamin D 1000 units Tab ORAL SCH (08:54)
[2020-07-21] MEDS: Solu-MEDROL 40mg Inj IVP SCH ×2 (08:54→20:42)
[2020-07-21] MEDS: Vitamin B Complex Tab ORAL SCH (08:54)
[2020-07-21] MEDS: Enoxaparin 40mg Inj SUBQ SCH ×2 (08:55→20:43)
[2020-07-21] MEDS ORDERED: dexAMETHasone 10mg/ml Inj IV SCH (09:00)
[2020-07-21] MEDS: Levemir Flexpen SUBQ SCH ×2 (09:19→17:24)
--- NOTE | 2020-07-21 12:00 | NUR ---
NURSE NOTES: Patient denies pain. Resting comfortably. Oral care provided. Heels offloaded.
--- NOTE | 2020-07-21 12:36 | Pulmonolgy Critical Care Note ---
Critical Care - Asmt/Plan Assessment/Plan: Pulmonary CCM Progress Noted Subjective ROS Limited/Unobtainable: Yes Constitutional: Reports: no symptoms Gastrointestinal/Abdominal: Reports: no symptoms Musculoskeletal: Denies: pain Allergies: Coded Allergies: No Known Allergies (Unverified , 03/08/17) All Systems: reviewed and negative except above Not candidate for Remdesivir - increased LFT's Intubated, on ACVC,CXR ETT satisfactory,bilateral infiltrates Sedated on the ventilator Propofol/Fentenyl gtt Medications noted Objective Vital Signs noted PE deferred due to COVID 19 Laboratory Tests noted Assessment/Plan Assessment/Plan Acute hypoxemic respiratory failure In ICU on ventilator COVID pneumonia Asthma elevated liver enzymes PLAN ACVC ABG PRN monitor imaging PRN monitor ABG PRN decadron/Antivirals/AB per ID respiratory care Nutrition consult ID noted DVT prophylaxis taper FIO2 as able monitor respiratory status for change at risk for intubation impression, plan, and exam edited and reviewed in detail care discussed with bung remover - Objective Last 24 Hour Vital Signs Date Time Temp Pulse Resp B/P (MAP) Pulse Ox O2 Delivery O2 Flow Rate FiO2 07/21/20 12:05 22 121/53 Mechanical Ventilator 100 07/21/20 11:56 22 121/52 Mechanical Ventilator 100 07/21/20 11:05 24 138/59 Mechanical Ventilator 100 07/21/20 11:00 51 22 107/53 (71) 93 07/21/20 10:56 24 138/59 Mechanical Ventilator 100 07/21/20 10:05 22 106/52 Mechanical Ventilator 100 07/21/20 10:00 53 22 104/51 (68) 94 07/21/20 09:56 22 106/52 Mechanical Ventilator 100 07/21/20 09:30 58 22 110/50 (70) 95 07/21/20 09:05 22 118/61 Mechanical Ventilator 100 07/21/20 09:00 57 21 118/61 (80) 96 07/21/20 08:56 22 118/61 Mechanical Ventilator 100 07/21/20 08:56 22 118/61 Mechanical Ventilator 100 07/21/20 08:30 52 22 103/50 (67) 96 07/21/20 08:00 98.7 51 22 104/53 (70) 96 07/21/20 08:00 100 07/21/20 08:00 Mechanical Ventilator Mechanical Ventilator 07/21/20 08:00 54 07/21/20 07:56 23 104/53 Mechanical Ventilator 100 07/21/20 07:56 22 104/53 Mechanical Ventilator 100 07/21/20 07:00 52 22 102/53 (69) 95 07/21/20 06:56 24 102/53 Mechanical Ventilator 100 07/21/20 06:56 24 102/53 Mechanical Ventilator 100 07/21/20 06:00 54 22 105/52 (69) 96 07/21/20 05:56 22 105/52 Mechanical Ventilator 100 07/21/20 05:56 22 105/52 Mechanical Ventilator 100 07/21/20 05:08 24 111/51 Mechanical Ventilator 100 07/21/20 05:00 65 20 111/51 (71) 95 07/21/20 04:56 24 111/56 Mechanical Ventilator 100 07/21/20 04:56 24 111/51 Mechanical Ventilator 100 07/21/20 04:56 61 22 109/52 (71) 97 07/21/20 04:44 25 105/56 Mechanical Ventilator 100 07/21/20 04:41 24 109/52 Mechanical Ventilator 100 07/21/20 04:41 51 22 111/54 (73) 97 07/21/20 04:08 25 105/56 Mechanical Ventilator 100 07/21/20 04:00 Mechanical Ventilator Mechanical Ventilator 07/21/20 04:00 98.7 54 22 105/54 (71) 97 07/21/20 04:00 100 07/21/20 03:56 25 105/54 Mechanical Ventilator 100 07/21/20 03:33 52 07/21/20 03:08 23 106/58 Mechanical Ventilator 100 07/21/20 03:00 80 23 106/58 (74) 94 07/21/20 02:56 23 106/58 Mechanical Ventilator 100 07/21/20 02:45 52 22 100 07/21/20 02:30 47 22 108/53 (71) 96 07/21/20 02:08 22 110/54 Mechanical Ventilator 100 07/21/20 02:02 22 106/52 Mechanical Ventilator 100 07/21/20 02:00 48 22 110/54 (72) 97 07/21/20 01:56 22 110/54 Mechanical Ventilator 100 07/21/20 01:30 49 22 106/52 (70) 96 07/21/20 01:08 22 106/52 Mechanical Ventilator 100 07/21/20 01:00 48 22 106/52 (70) 97 07/21/20 00:56 22 106/53 Mechanical Ventilator 100 07/21/20 00:30 48 22 105/53 (70) 97 07/21/20 00:08 22 106/53 Mechanical Ventilator 100 07/21/20 00:00 100 07/21/20 00:00 98.5 48 22 106/53 (70) 97 07/21/20 00:00 Mechanical Ventilator Mechanical Ventilator 07/20/20 23:56 22 106/51 Mechanical Ventilator 100 07/20/20 23:53 51 07/20/20 23:30 50 22 103/53 (70) 96 07/20/20 23:08 22 104/51 Mechanical Ventilator 100 07/20/20 23:00 49 22 106/51 (69) 95 07/20/20 22:56 22 100/52 Mechanical Ventilator 100 07/20/20 22:43 51 22 100 07/20/20 22:30 52 22 103/52 (69) 94 07/20/20 22:25 22 97/51 Mechanical Ventilator 100 07/20/20 22:08 22 97/51 Mechanical Ventilator 100 07/20/20 22:00 54 22 99/52 (68) 94 07/20/20 21:56 22 99/52 Mechanical Ventilator 100 07/20/20 21:30 56 22 100/56 (71) 95 07/20/20 21:08 22 97/54 Mechanical Ventilator 100 07/20/20 21:00 59 22 97/54 (68) 96 07/20/20 20:56 22 94/54 Mechanical Ventilator 100 07/20/20 20:08 22 114/52 Mechanical Ventilator 100 07/20/20 20:00 62 07/20/20 20:00 98.5 62 22 107/55 (72) 96 07/20/20 20:00 100 07/20/20 20:00 Mechanical Ventilator 07/20/20 19:56 22 107/54 Mechanical Ventilator 100 07/20/20 19:08 22 164/119 Mechanical Ventilator 100 07/20/20 19:00 66 22 126/66 (86) 96 07/20/20 18:58 79 33 100 07/20/20 18:56 22 111/61 Mechanical Ventilator 100 07/20/20 18:30 55 22 115/72 (86) 95 07/20/20 18:24 22 105/61 Mechanical Ventilator 100 07/20/20 18:23 22 105/61 Mechanical Ventilator 100 07/20/20 18:08 22 101/61 Mechanical Ventilator 100 07/20/20 18:00 60 22 101/61 (74) 94 07/20/20 17:56 22 112/60 Mechanical Ventilator 100 07/20/20 17:30 60 22 102/62 (75) 94 07/20/20 17:08 22 88/60 Mechanical Ventilator 100 07/20/20 17:00 64 22 111/72 (85) 96 07/20/20 16:56 22 91/58 Mechanical Ventilator 100 07/20/20 16:30 62 22 101/61 (74) 95 07/20/20 16:08 22 104/64 Mechanical Ventilator 100 07/20/20 16:00 65 07/20/20 16:00 Mechanical Ventilator 07/20/20 16:00 100 07/20/20 16:00 98.3 65 22 104/64 (77) 95 07/20/20 15:56 22 114/70 Mechanical Ventilator 100 07/20/20 15:53 22 114/70 Mechanical Ventilator 100 07/20/20 15:41 23 116/72 Mechanical Ventilator 100 07/20/20 15:38 23 116/72 Mechanical Ventilator 100 07/20/20 15:30 76 23 116/72 (87) 96 07/20/20 15:26 22 110/68 Mechanical Ventilator 100 07/20/20 15:23 22 110/68 Mechanical Ventilator 100 07/20/20 15:11 22 110/69 Mechanical Ventilator 100 07/20/20 15:08 22 110/69 Mechanical Ventilator 100 07/20/20 15:00 66 22 110/69 (83) 95 07/20/20 14:56 22 114/72 Mechanical Ventilator 100 07/20/20 14:53 22 114/72 Mechanical Ventilator 100 07/20/20 14:41 22 119/72 Mechanical Ventilator 100 07/20/20 14:41 75 22 100 07/20/20 14:38 22 119/72 Mechanical Ventilator 100 07/20/20 14:30 76 24 119/72 (88) 94 07/20/20 14:26 23 120/85 Mechanical Ventilator 100 07/20/20 14:23 23 120/85 Mechanical Ventilator 100 07/20/20 14:15 84 25 120/85 (97) 94 07/20/20 14:11 26 122/77 Mechanical Ventilator 100 07/20/20 14:08 26 122/77 Mechanical Ventilator 100 07/20/20 14:00 87 25 122/77 (92) 96 07/20/20 13:56 28 118/79 Mechanical Ventilator 100 07/20/20 13:53 30 118/79 Mechanical Ventilator 100 07/20/20 13:45 90 28 118/79 (92) 96 07/20/20 13:41 27 114/76 Mechanical Ventilator 100 07/20/20 13:30 96 28 114/76 (89) 94 07/20/20 13:26 38 118/74 Mechanical Ventilator 100 07/20/20 13:24 99.1 100 33 118/74 (89) 94 Accucheck: 287 Critical Care - Subjective ROS Limited/Unobtainable: Yes Condition: critical EKG Rhythm: Sinus Rhythm FI02: 100 Vent Support Breath Rate: 22 Vent Support Mode: AC Vent Tidal Volume: 500 Sputum Amount: Small PEEP: 8.0 PIP: 32 I&O: Intake and Output 07/20/20 07/21/20 19:00 07:00 Intake Total 425.248 ml 1041.287 ml Output Total 420 ml 670 ml Balance 5.248 ml 371.287 ml IV Total 425.248 ml 1041.287 ml Output Urine Total 420 ml 670 ml # Bowel Movements 1 ET-Tube: 7.5 ET Position: 22 Chuck Ortega MD Jul 21, 2020 12:36
--- NOTE | 2020-07-21 12:42 | NUR ---
RONALD WALTERS (BROTHER) [phone] Emergency contact
--- NOTE | 2020-07-21 13:02 | NUR ---
B[employer]T [employer] FEEDER NOTE SW spoke w/ pt's ex-/daughter's mother, Lisbet Parish [phone] (monolingual Amharic) and obtained information. per diem interpreter Octavio #[id number] assisted w/ interpretation. PT resides alone at [address] [place] [id number]. Per Lisbet, pt does not have substance abuse/mental health issue. PT does not have AD/POA. Pt was ambulatory w/o DME and independent w/ ADLs. Per Lisbet, she is from pt for two years. Lisbet recommended the team to communicate w/ his brother, Dilshad Morales. SW spoke w/ pt's brother, Dilshad Morales [phone] (bilingual), was informed that their parents are living in [place] and he is the only sibling who could be contacted at this time. Other emergency contact: Carly Quintero (girlfriend) [phone]
--- NOTE | 2020-07-21 13:44 | General Progress Note ---
Subjective ROS Limited/Unobtainable: No Constitutional: Reports: malaise, weakness HEENT: Reports: no symptoms Cardiovascular: Reports: no symptoms Respiratory: Reports: no symptoms Gastrointestinal/Abdominal: Reports: no symptoms Genitourinary: Reports: no symptoms Neurologic/Psychiatric: Reports: no symptoms Endocrine: Reports: no symptoms Hematologic/Lymphatic: Reports: no symptoms Allergies: Coded Allergies: No Known Allergies (Unverified , 03/08/17) All Systems: reviewed and negative except above Subjective orally intubated. worsening hypoxemia. on the vent. sedated Objective Last 24 Hour Vital Signs Date Time Temp Pulse Resp B/P (MAP) Pulse Ox O2 Delivery O2 Flow Rate FiO2 07/21/20 13:00 51 22 117/55 (75) 93 07/21/20 12:56 20 128/56 Mechanical Ventilator 100 07/21/20 12:46 23 113/53 Mechanical Ventilator 100 07/21/20 12:45 22 124/45 Non-Rebreather 100 07/21/20 12:30 53 21 113/53 (73) 93 07/21/20 12:05 22 121/53 Mechanical Ventilator 100 07/21/20 12:00 Mechanical Ventilator Mechanical Ventilator 07/21/20 12:00 100 07/21/20 12:00 49 07/21/20 12:00 99.2 49 22 111/54 (73) 94 07/21/20 11:56 22 121/52 Mechanical Ventilator 100 07/21/20 11:05 24 138/59 Mechanical Ventilator 100 07/21/20 11:00 51 22 107/53 (71) 93 07/21/20 10:56 24 138/59 Mechanical Ventilator 100 07/21/20 10:05 22 106/52 Mechanical Ventilator 100 07/21/20 10:00 53 22 104/51 (68) 94 07/21/20 09:56 22 106/52 Mechanical Ventilator 100 07/21/20 09:30 58 22 110/50 (70) 95 07/21/20 09:05 22 118/61 Mechanical Ventilator 100 07/21/20 09:00 57 21 118/61 (80) 96 07/21/20 08:56 22 118/61 Mechanical Ventilator 100 07/21/20 08:56 22 118/61 Mechanical Ventilator 100 07/21/20 08:30 52 22 103/50 (67) 96 07/21/20 08:00 98.7 51 22 104/53 (70) 96 07/21/20 08:00 100 07/21/20 08:00 Mechanical Ventilator Mechanical Ventilator 07/21/20 08:00 54 07/21/20 07:56 23 104/53 Mechanical Ventilator 100 07/21/20 07:56 22 104/53 Mechanical Ventilator 100 07/21/20 07:00 52 22 102/53 (69) 95 07/21/20 06:56 24 102/53 Mechanical Ventilator 100 07/21/20 06:56 24 102/53 Mechanical Ventilator 100 07/21/20 06:00 54 22 105/52 (69) 96 07/21/20 05:56 22 105/52 Mechanical Ventilator 100 07/21/20 05:56 22 105/52 Mechanical Ventilator 100 07/21/20 05:08 24 111/51 Mechanical Ventilator 100 07/21/20 05:00 65 20 111/51 (71) 95 07/21/20 04:56 24 111/56 Mechanical Ventilator 100 07/21/20 04:56 24 111/51 Mechanical Ventilator 100 07/21/20 04:56 61 22 109/52 (71) 97 07/21/20 04:44 25 105/56 Mechanical Ventilator 100 07/21/20 04:41 24 109/52 Mechanical Ventilator 100 07/21/20 04:41 51 22 111/54 (73) 97 07/21/20 04:08 25 105/56 Mechanical Ventilator 100 07/21/20 04:00 Mechanical Ventilator Mechanical Ventilator 07/21/20 04:00 98.7 54 22 105/54 (71) 97 07/21/20 04:00 100 07/21/20 03:56 25 105/54 Mechanical Ventilator 100 07/21/20 03:33 52 07/21/20 03:08 23 106/58 Mechanical Ventilator 100 07/21/20 03:00 80 23 106/58 (74) 94 07/21/20 02:56 23 106/58 Mechanical Ventilator 100 07/21/20 02:45 52 22 100 07/21/20 02:30 47 22 108/53 (71) 96 07/21/20 02:08 22 110/54 Mechanical Ventilator 100 07/21/20 02:02 22 106/52 Mechanical Ventilator 100 07/21/20 02:00 48 22 110/54 (72) 97 07/21/20 01:56 22 110/54 Mechanical Ventilator 100 07/21/20 01:30 49 22 106/52 (70) 96 07/21/20 01:08 22 106/52 Mechanical Ventilator 100 07/21/20 01:00 48 22 106/52 (70) 97 07/21/20 00:56 22 106/53 Mechanical Ventilator 100 07/21/20 00:30 48 22 105/53 (70) 97 07/21/20 00:08 22 106/53 Mechanical Ventilator 100 07/21/20 00:00 100 07/21/20 00:00 98.5 48 22 106/53 (70) 97 07/21/20 00:00 Mechanical Ventilator Mechanical Ventilator 07/20/20 23:56 22 106/51 Mechanical Ventilator 100 07/20/20 23:53 51 07/20/20 23:30 50 22 103/53 (70) 96 07/20/20 23:08 22 104/51 Mechanical Ventilator 100 07/20/20 23:00 49 22 106/51 (69) 95 07/20/20 22:56 22 100/52 Mechanical Ventilator 100 07/20/20 22:43 51 22 100 07/20/20 22:30 52 22 103/52 (69) 94 07/20/20 22:25 22 97/51 Mechanical Ventilator 100 07/20/20 22:08 22 97/51 Mechanical Ventilator 100 07/20/20 22:00 54 22 99/52 (68) 94 07/20/20 21:56 22 99/52 Mechanical Ventilator 100 07/20/20 21:30 56 22 100/56 (71) 95 07/20/20 21:08 22 97/54 Mechanical Ventilator 100 07/20/20 21:00 59 22 97/54 (68) 96 07/20/20 20:56 22 94/54 Mechanical Ventilator 100 07/20/20 20:08 22 114/52 Mechanical Ventilator 100 07/20/20 20:00 62 07/20/20 20:00 98.5 62 22 107/55 (72) 96 07/20/20 20:00 100 07/20/20 20:00 Mechanical Ventilator 07/20/20 19:56 22 107/54 Mechanical Ventilator 100 07/20/20 19:08 22 164/119 Mechanical Ventilator 100 07/20/20 19:00 66 22 126/66 (86) 96 07/20/20 18:58 79 33 100 07/20/20 18:56 22 111/61 Mechanical Ventilator 100 07/20/20 18:30 55 22 115/72 (86) 95 07/20/20 18:24 22 105/61 Mechanical Ventilator 100 07/20/20 18:23 22 105/61 Mechanical Ventilator 100 07/20/20 18:08 22 101/61 Mechanical Ventilator 100 07/20/20 18:00 60 22 101/61 (74) 94 07/20/20 17:56 22 112/60 Mechanical Ventilator 100 07/20/20 17:30 60 22 102/62 (75) 94 07/20/20 17:08 22 88/60 Mechanical Ventilator 100 07/20/20 17:00 64 22 111/72 (85) 96 07/20/20 16:56 22 91/58 Mechanical Ventilator 100 07/20/20 16:30 62 22 101/61 (74) 95 07/20/20 16:08 22 104/64 Mechanical Ventilator 100 07/20/20 16:00 65 07/20/20 16:00 Mechanical Ventilator 07/20/20 16:00 100 07/20/20 16:00 98.3 65 22 104/64 (77) 95 07/20/20 15:56 22 114/70 Mechanical Ventilator 100 07/20/20 15:53 22 114/70 Mechanical Ventilator 100 07/20/20 15:41 23 116/72 Mechanical Ventilator 100 07/20/20 15:38 23 116/72 Mechanical Ventilator 100 07/20/20 15:30 76 23 116/72 (87) 96 07/20/20 15:26 22 110/68 Mechanical Ventilator 100 07/20/20 15:23 22 110/68 Mechanical Ventilator 100 07/20/20 15:11 22 110/69 Mechanical Ventilator 100 07/20/20 15:08 22 110/69 Mechanical Ventilator 100 07/20/20 15:00 66 22 110/69 (83) 95 07/20/20 14:56 22 114/72 Mechanical Ventilator 100 07/20/20 14:53 22 114/72 Mechanical Ventilator 100 07/20/20 14:41 22 119/72 Mechanical Ventilator 100 07/20/20 14:41 75 22 100 07/20/20 14:38 22 119/72 Mechanical Ventilator 100 07/20/20 14:30 76 24 119/72 (88) 94 07/20/20 14:26 23 120/85 Mechanical Ventilator 100 07/20/20 14:23 23 120/85 Mechanical Ventilator 100 07/20/20 14:15 84 25 120/85 (97) 94 07/20/20 14:11 26 122/77 Mechanical Ventilator 100 07/20/20 14:08 26 122/77 Mechanical Ventilator 100 07/20/20 14:00 87 25 122/77 (92) 96 07/20/20 13:56 28 118/79 Mechanical Ventilator 100 07/20/20 13:53 30 118/79 Mechanical Ventilator 100 07/20/20 13:45 90 28 118/79 (92) 96 Intake and Output 07/20/20 07/21/20 19:00 07:00 Intake Total 425.248 ml 1041.287 ml Output Total 420 ml 670 ml Balance 5.248 ml 371.287 ml IV Total 425.248 ml 1041.287 ml Output Urine Total 420 ml 670 ml # Bowel Movements 1 Laboratory Tests 07/20/20 15:29: Arterial Blood pH 7.437, Arterial Blood Partial Pressure CO2 39.0, Arterial Blood Partial Pressure O2 70.5L, Arterial Blood HCO3 25.7, Arterial Blood Oxygen Saturation 94.3L, Arterial Blood Base Excess 1.6, Jacob Test Positive 07/21/20 00:34: POC Whole Blood Glucose 351H 07/21/20 04:00: White Blood Count 12.5H, Red Blood Count 5.04, Hemoglobin 15.4, Hematocrit 47.1, Mean Corpuscular Volume 94, Mean Corpuscular Hemoglobin 30.5, Mean Corpuscular Hemoglobin Concent 32.6, Red Cell Distribution Width 11.7, Platelet Count 485H, Mean Platelet Volume 6.7, Neutrophils (%) (Auto) , Lymphocytes (%) (Auto) , Monocytes (%) (Auto) , Eosinophils (%) (Auto) , Basophils (%) (Auto) , Differential Total Cells Counted 100, Neutrophils % (Manual) 86H, Lymphocytes % (Manual) 10L, Monocytes % (Manual) 4, Eosinophils % (Manual) 0, Basophils % (Manual) 0, Band Neutrophils 0, Platelet Estimate Adequate, Platelet Morphology Normal, Red Blood Cell Morphology Normal, Sodium Level 133L, Potassium Level 4.5, Chloride Level 102, Carbon Dioxide Level 27, Anion Gap 4L, Blood Urea Nitrogen 18, Creatinine 0.8, Estimat Glomerular Filtration Rate > 60, Glucose L evel 340H, Calcium Level 8.2L, Triglycerides Level 230H 07/21/20 04:50: POC Whole Blood Glucose [Pending] 07/21/20 08:09: Arterial Blood pH 7.390, Arterial Blood Partial Pressure CO2 45.2H, Arterial Blood Partial Pressure O2 78.2, Arterial Blood HCO3 26.7H, Arterial Blood Oxygen Saturation 95.1, Arterial Blood Base Excess 1.3, Jacob Test Positive Height (Feet): 5 Height (Inches): 6.00 Weight (Pounds): 209 Objective deferred Assessment/Plan Problem List: (1) Coronavirus infection ICD Codes: B34.2 - Coronavirus infection, unspecified SNOMED: [id number] Status: stable, not improved Assessment/Plan: steroids vent dvt/stress ulcer prophylaxis prone positioning Rolando Cherry MD Jul 21, 2020 13:44
--- NOTE | 2020-07-21 14:40 | Infectious Diseases Prog Note ---
Assessment/Plan Assessment/Plan A: 1. COVID-19 pneumonia. 2. History of asthma. 3. Elevated liver function tests. 4. Fatty liver 5. DM with hyperglycemia 6. Leukocytosis 7. Hypoxic respiratory failure PLAN: 1. Continue Methylprednisone 2. Continue isolation. 3. Start on Rocephin 4. Sputum culture Subjective ROS Limited/Unobtainable: Yes Constitutional: Reports: other - transferred to ICU Respiratory: Reports: other - intubated yesterday Allergies: Coded Allergies: No Known Allergies (Unverified , 03/08/17) Objective Last 24 Hour Vital Signs Date Time Temp Pulse Resp B/P (MAP) Pulse Ox O2 Delivery O2 Flow Rate FiO2 07/21/20 13:56 22 111/54 Mechanical Ventilator 100 07/21/20 13:46 22 111/54 Mechanical Ventilator 100 07/21/20 13:45 51 22 116/51 (72) 93 07/21/20 13:30 49 22 115/52 (73) 94 07/21/20 13:00 51 22 117/55 (75) 93 07/21/20 12:56 20 128/56 Mechanical Ventilator 100 07/21/20 12:46 23 113/53 Mechanical Ventilator 100 07/21/20 12:45 22 124/45 Non-Rebreather 100 07/21/20 12:30 53 21 113/53 (73) 93 07/21/20 12:05 22 121/53 Mechanical Ventilator 100 07/21/20 12:00 Mechanical Ventilator Mechanical Ventilator 07/21/20 12:00 100 07/21/20 12:00 49 07/21/20 12:00 99.2 49 22 111/54 (73) 94 07/21/20 11:56 22 121/52 Mechanical Ventilator 100 07/21/20 11:05 24 138/59 Mechanical Ventilator 100 07/21/20 11:00 51 22 107/53 (71) 93 07/21/20 10:56 24 138/59 Mechanical Ventilator 100 07/21/20 10:05 22 106/52 Mechanical Ventilator 100 07/21/20 10:00 53 22 104/51 (68) 94 07/21/20 09:56 22 106/52 Mechanical Ventilator 100 07/21/20 09:30 58 22 110/50 (70) 95 07/21/20 09:05 22 118/61 Mechanical Ventilator 100 07/21/20 09:00 57 21 118/61 (80) 96 07/21/20 08:56 22 118/61 Mechanical Ventilator 100 07/21/20 08:56 22 118/61 Mechanical Ventilator 100 07/21/20 08:30 52 22 103/50 (67) 96 07/21/20 08:00 98.7 51 22 104/53 (70) 96 07/21/20 08:00 100 07/21/20 08:00 Mechanical Ventilator Mechanical Ventilator 07/21/20 08:00 54 07/21/20 07:56 23 104/53 Mechanical Ventilator 100 07/21/20 07:56 22 104/53 Mechanical Ventilator 100 07/21/20 07:00 52 22 102/53 (69) 95 07/21/20 06:56 24 102/53 Mechanical Ventilator 100 07/21/20 06:56 24 102/53 Mechanical Ventilator 100 07/21/20 06:00 54 22 105/52 (69) 96 07/21/20 05:56 22 105/52 Mechanical Ventilator 100 07/21/20 05:56 22 105/52 Mechanical Ventilator 100 07/21/20 05:08 24 111/51 Mechanical Ventilator 100 07/21/20 05:00 65 20 111/51 (71) 95 07/21/20 04:56 24 111/56 Mechanical Ventilator 100 07/21/20 04:56 24 111/51 Mechanical Ventilator 100 07/21/20 04:56 61 22 109/52 (71) 97 07/21/20 04:44 25 105/56 Mechanical Ventilator 100 07/21/20 04:41 24 109/52 Mechanical Ventilator 100 07/21/20 04:41 51 22 111/54 (73) 97 07/21/20 04:08 25 105/56 Mechanical Ventilator 100 07/21/20 04:00 Mechanical Ventilator Mechanical Ventilator 07/21/20 04:00 98.7 54 22 105/54 (71) 97 07/21/20 04:00 100 07/21/20 03:56 25 105/54 Mechanical Ventilator 100 07/21/20 03:33 52 07/21/20 03:08 23 106/58 Mechanical Ventilator 100 07/21/20 03:00 80 23 106/58 (74) 94 07/21/20 02:56 23 106/58 Mechanical Ventilator 100 07/21/20 02:45 52 22 100 07/21/20 02:30 47 22 108/53 (71) 96 07/21/20 02:08 22 110/54 Mechanical Ventilator 100 07/21/20 02:02 22 106/52 Mechanical Ventilator 100 07/21/20 02:00 48 22 110/54 (72) 97 07/21/20 01:56 22 110/54 Mechanical Ventilator 100 07/21/20 01:30 49 22 106/52 (70) 96 07/21/20 01:08 22 106/52 Mechanical Ventilator 100 07/21/20 01:00 48 22 106/52 (70) 97 07/21/20 00:56 22 106/53 Mechanical Ventilator 100 07/21/20 00:30 48 22 105/53 (70) 97 07/21/20 00:08 22 106/53 Mechanical Ventilator 100 07/21/20 00:00 100 07/21/20 00:00 98.5 48 22 106/53 (70) 97 07/21/20 00:00 Mechanical Ventilator Mechanical Ventilator 07/20/20 23:56 22 106/51 Mechanical Ventilator 100 07/20/20 23:53 51 07/20/20 23:30 50 22 103/53 (70) 96 07/20/20 23:08 22 104/51 Mechanical Ventilator 100 07/20/20 23:00 49 22 106/51 (69) 95 07/20/20 22:56 22 100/52 Mechanical Ventilator 100 07/20/20 22:43 51 22 100 07/20/20 22:30 52 22 103/52 (69) 94 07/20/20 22:25 22 97/51 Mechanical Ventilator 100 07/20/20 22:08 22 97/51 Mechanical Ventilator 100 07/20/20 22:00 54 22 99/52 (68) 94 07/20/20 21:56 22 99/52 Mechanical Ventilator 100 07/20/20 21:30 56 22 100/56 (71) 95 07/20/20 21:08 22 97/54 Mechanical Ventilator 100 07/20/20 21:00 59 22 97/54 (68) 96 07/20/20 20:56 22 94/54 Mechanical Ventilator 100 07/20/20 20:08 22 114/52 Mechanical Ventilator 100 07/20/20 20:00 62 07/20/20 20:00 98.5 62 22 107/55 (72) 96 07/20/20 20:00 100 07/20/20 20:00 Mechanical Ventilator 07/20/20 19:56 22 107/54 Mechanical Ventilator 100 07/20/20 19:08 22 164/119 Mechanical Ventilator 100 07/20/20 19:00 66 22 126/66 (86) 96 07/20/20 18:58 79 33 100 07/20/20 18:56 22 111/61 Mechanical Ventilator 100 07/20/20 18:30 55 22 115/72 (86) 95 07/20/20 18:24 22 105/61 Mechanical Ventilator 100 07/20/20 18:23 22 105/61 Mechanical Ventilator 100 07/20/20 18:08 22 101/61 Mechanical Ventilator 100 07/20/20 18:00 60 22 101/61 (74) 94 07/20/20 17:56 22 112/60 Mechanical Ventilator 100 07/20/20 17:30 60 22 102/62 (75) 94 07/20/20 17:08 22 88/60 Mechanical Ventilator 100 07/20/20 17:00 64 22 111/72 (85) 96 07/20/20 16:56 22 91/58 Mechanical Ventilator 100 07/20/20 16:30 62 22 101/61 (74) 95 07/20/20 16:08 22 104/64 Mechanical Ventilator 100 07/20/20 16:00 65 07/20/20 16:00 Mechanical Ventilator 07/20/20 16:00 100 07/20/20 16:00 98.3 65 22 104/64 (77) 95 07/20/20 15:56 22 114/70 Mechanical Ventilator 100 07/20/20 15:53 22 114/70 Mechanical Ventilator 100 07/20/20 15:41 23 116/72 Mechanical Ventilator 100 07/20/20 15:38 23 116/72 Mechanical Ventilator 100 07/20/20 15:30 76 23 116/72 (87) 96 07/20/20 15:26 22 110/68 Mechanical Ventilator 100 07/20/20 15:23 22 110/68 Mechanical Ventilator 100 07/20/20 15:11 22 110/69 Mechanical Ventilator 100 07/20/20 15:08 22 110/69 Mechanical Ventilator 100 07/20/20 15:00 66 22 110/69 (83) 95 07/20/20 14:56 22 114/72 Mechanical Ventilator 100 07/20/20 14:53 22 114/72 Mechanical Ventilator 100 07/20/20 14:41 22 119/72 Mechanical Ventilator 100 07/20/20 14:41 75 22 100 07/20/20 14:38 22 119/72 Mechanical Ventilator 100 Height (Feet): 5 Height (Inches): 6.00 Weight (Pounds): 209 HEENT: other - orally intubated Respiratory/Chest: other - on ventilator Cardiovascular: bradycardia Abdomen: soft, non tender Extremities: no edema Neurologic/Psychiatric: other - on restraint Laboratory Tests Test 07/20/20 15:29 07/21/20 00:34 07/21/20 04:00 07/21/20 04:50 Arterial Blood pH 7.437 (7.350-7.450) Arterial Blood Partial Pressure CO2 39.0 mmHg (35.0-45.0) Arterial Blood Partial Pressure O2 70.5 mmHg (75.0-100.0) L Arterial Blood HCO3 25.7 mmol/L (22.0-26.0) Arterial Blood Oxygen Saturation 94.3 % (95-100) L Arterial Blood Base Excess 1.6 (-2-2) Jacob Test Positive POC Whole Blood Glucose 351 MG/DL (74-106) H Pending White Blood Count 12.5 K/UL (4.8-10.8) H Red Blood Count 5.04 M/UL (4.70-6.10) Hemoglobin 15.4 G/DL (14.2-18.0) Hematocrit 47.1 % (42.0-52.0) Mean Corpuscular Volume 94 FL (80-99) Mean Corpuscular Hemoglobin 30.5 PG (27.0-31.0) Mean Corpuscular Hemoglobin Concent 32.6 G/DL (32.0-36.0) Red Cell Distribution Width 11.7 % (11.6-14.8) Platelet Count 485 K/UL (150-450) H Mean Platelet Volume 6.7 FL (6.5-10.1) Neutrophils (%) (Auto) % (45.0-75.0) Lymphocytes (%) (Auto) % (20.0-45.0) Monocytes (%) (Auto) % (1.0-10.0) Eosinophils (%) (Auto) % (0.0-3.0) Basophils (%) (Auto) % (0.0-2.0) Differential Total Cells Counted 100 Neutrophils % (Manual) 86 % (45-75) H Lymphocytes % (Manual) 10 % (20-45) L Monocytes % (Manual) 4 % (1-10) Eosinophils % (Manual) 0 % (0-3) Basophils % (Manual) 0 % (0-2) Band Neutrophils 0 % (0-8) Platelet Estimate Adequate Platelet Morphology Normal Red Blood Cell Morphology Normal Sodium Level 133 MMOL/L (136-145) L Potassium Level 4.5 MMOL/L (3.5-5.1) Chloride Level 102 MMOL/L (98-107) Carbon Dioxide Level 27 MMOL/L (21-32) Anion Gap 4 mmol/L (5-15) L Blood Urea Nitrogen 18 mg/dL (7-18) Creatinine 0.8 MG/DL (0.55-1.30) Estimat Glomerular Filtration Rate > 60 mL/min (>60) Glucose Level 340 MG/DL (74-106) H Calcium Level 8.2 MG/DL (8.5-10.1) L Triglycerides Level 230 MG/DL (30-150) H Test 07/21/20 08:09 Arterial Blood pH 7.390 (7.350-7.450) Arterial Blood Partial Pressure CO2 45.2 mmHg (35.0-45.0) H Arterial Blood Partial Pressure O2 78.2 mmHg (75.0-100.0) Arterial Blood HCO3 26.7 mmol/L (22.0-26.0) H Arterial Blood Oxygen Saturation 95.1 % (95-100) Arterial Blood Base Excess 1.3 (-2-2) Jacob Test Positive Current Medications Medications (Trade) Dose Ordered Sig/Milagro Route PRN Reason Start Time Stop Time Status Last Admin Dose Admin Acetaminophen (Tylenol) 500 mg Q4H PRN ORAL Mild Pain (Pain Scale 1-3) 07/09/20 21:45 08/08/20 21:44 07/12/20 01:46 Albuterol/ Ipratropium (Combivent Respimat) 2 puff Q2H PRN INH Shortness of Breath 07/09/20 21:45 08/08/20 21:44 07/19/20 09:17 Ascorbic Acid (Vitamin C) 500 mg TWICE A DAY ORAL 07/11/20 09:00 1/13/21 08:59 07/21/20 08:54 Chlorhexidine Gluconate (Marycarmen-Hex 2%) 1 applic DAILY@2000 TOPIC 07/20/20 20:00 10/18/20 19:59 07/20/20 20:10 Dextrose (Dextrose 50%) 25 ml Q30M PRN IV Hypoglycemia 07/15/20 00:00 10/13/20 00:00 Dextrose (Dextrose 50%) 50 ml Q30M PRN IV Hypoglycemia 07/15/20 00:00 10/13/20 00:00 Dextrose/Sodium Chloride 1,000 ml @ 50 mls/hr Q20H IV 07/20/20 12:45 08/19/20 12:44 07/21/20 08:53 Enoxaparin Sodium (Lovenox) 40 mg Q12HR SUBQ 07/18/20 21:00 10/16/20 20:59 07/21/20 08:55 Fentanyl Citrate 250 ml @ 1 mls/hr Q24H IV 07/20/20 12:45 07/22/20 12:44 07/20/20 13:53 Heparin Sodium/ Sodium Chloride (Heparin 1000 units/500ml Premix) 1,000 unit ONCE PRN IV picc line placement 07/20/20 13:00 07/22/20 12:59 Insulin Aspart (NovoLOG) Q6HR SUBQ 07/20/20 18:00 10/13/20 06:29 07/21/20 12:17 Insulin Detemir (Levemir) 15 units BID SUBQ 07/19/20 18:00 10/17/20 17:59 07/21/20 09:19 Lidocaine HCl (Xylocaine 1% 30ml) 30 ml ONCE PRN INJ picc line placement 07/20/20 13:00 07/22/20 12:59 Methylprednisolone Sodium Succinate (Solu-MEDROL) 40 mg Q12HR IVP 07/13/20 21:00 07/23/20 21:30 07/21/20 08:54 Ondansetron HCl (Zofran) 4 mg Q6H PRN IVP Nausea & Vomiting 07/09/20 21:45 08/08/20 21:44 Pantoprazole (Protonix) 40 mg DAILY ORAL 07/10/20 09:00 08/09/20 08:59 07/21/20 08:54 Promethazine HCl/ Codeine (Phenergan with Codeine) 5 ml Q4H PRN ORAL For Cough 07/11/20 15:15 08/10/20 15:14 07/17/20 22:22 Propofol 100 ml @ 0 mls/hr Q12H IV 07/20/20 12:45 07/22/20 12:44 07/21/20 12:46 Vitamin B Complex (Vitamin B Complex) 1 tab DAILY ORAL 07/11/20 09:00 10/09/20 08:59 07/21/20 08:54 Vitamin D (Vitamin D) 1,000 unit DAILY ORAL 07/14/20 09:30 08/13/20 09:29 07/21/20 08:54 Mian Wing MD Jul 21, 2020 14:40
--- NOTE | 2020-07-21 15:05 | NUR ---
CASE MANAGEMENT:REVIEW SI;COVID PNA. RESPIRATORY FAILURE~INTUBATED. T:99.2 P:49 RR:25 BP:97/54 O2:93% ETT/VENT AC 22 TV 500 PEEP 8 FIO2 100% WBC 12.5 PLT 485 NA 133 BG 351 IS;ROCEPHIN IV QD IVF D5NS @ 50 ML/HR PROPOFOL GTT IV FENTANYL IV LOVENOX SQ Q12 SOLU-MEDROL IV Q12 PROTONIX NG QD ICU STATUS DCP;FROM HOME
--- NOTE | 2020-07-21 15:34 | NUR ---
RADIOLOGY NOTE: LEFT UPPER EXTREMITY PICC LINE PLACEMENT BY DR. JOSTIN FISCHER AT 1528 HRS. FA
--- NOTE | 2020-07-21 16:19 | Brief Operative Note ---
Immediate Post Operative Note Operative Note Pre-op Diagnosis: needs IV access Procedure: PICC Post-op Diagnosis: same as pre-op Surgeon: Antionette Allen Anesthesia: local Specimen: none Complications: none Fluids: none Implant(s) used?: No Julian Allen MD Jul 21, 2020 16:19
--- NOTE | 2020-07-21 16:27 | Diagnostic Imaging Report ---
Indications: Needs long-term IV access Technique: Procedure performed at bedside. Procedural timeout performed. Ultrasound confirms patent compressible left basilic vein. Total sterile technique, including sterile probe cover and sterile gel, sterile gloves, hand hygiene, hat, mask,, sterile gown, large sterile drape, and preparation with 2% chlorhexidine utilized. Local anesthesia with 1% lidocaine. Under real-time ultrasound guidance, puncture basilic vein using 21-gauge needle, passage 0.018 guidewire, exchange for 4 Romanian peel-away sheath. 4 Romanian Bard dual-lumen power PICC cut to 49 cm. It was inserted through the peel-away sheath. Peel-away sheath and guidewire removed. Catheter fixed to the skin. Both catheter ports aspirated and flushed. Patient tolerated procedure well, without immediate complication. Followup chest x-ray obtained, documents catheter tip position at the high right atrium Impression: Successful bedside placement of left arm PICC under sonographic guidance, as described above.
[2020-07-21] MEDS: cefTRIAXone 1 GM in D5W 55 ML IVPB SCH (16:51)
[2020-07-21] MEDS: fentaNYL 2500mcg/NS 250ml 250 ML IV SCH (16:59)
[2020-07-21] MEDS: Acetaminophen 500mg (ES) tab ORAL PRN (17:23)
--- NOTE | 2020-07-21 18:07 | Cardiology Progress Note ---
Subjective DATE OF SERVICE: Jul 21, 2020 Remains on vent support via ETT. Still requiring max FIO2. Still with episodes of asymptomatic sinus bradycardia; but now in 47-81 range predominantly. No LOC or syncope. ABG (07/20) 7.39/45/78 (100% FIO2) Objective Last 24 Hour Vital Signs Date Time Temp Pulse Resp B/P (MAP) Pulse Ox O2 Delivery O2 Flow Rate FiO2 07/21/20 17:53 99.3 07/21/20 17:29 22 130/69 Mechanical Ventilator 100 07/21/20 16:59 24 128/59 Mechanical Ventilator 100 07/21/20 16:58 22 130/69 Mechanical Ventilator 100 07/21/20 16:46 22 138/65 Mechanical Ventilator 100 07/21/20 16:00 Mechanical Ventilator Mechanical Ventilator 07/21/20 16:00 52 22 118/53 (74) 93 07/21/20 16:00 100 07/21/20 15:56 22 110/52 Mechanical Ventilator 100 07/21/20 15:56 22 110/52 Mechanical Ventilator 100 07/21/20 15:48 60 22 100 07/21/20 15:46 22 110/52 Mechanical Ventilator 100 07/21/20 15:30 65 23 117/51 (73) 92 07/21/20 15:00 49 22 113/55 (74) 94 07/21/20 14:56 22 113/55 Mechanical Ventilator 100 07/21/20 14:46 22 113/55 Mechanical Ventilator 100 07/21/20 13:56 22 111/54 Mechanical Ventilator 100 07/21/20 13:46 22 111/54 Mechanical Ventilator 100 07/21/20 13:45 51 22 116/51 (72) 93 07/21/20 13:30 49 22 115/52 (73) 94 07/21/20 13:00 51 22 117/55 (75) 93 07/21/20 12:56 20 128/56 Mechanical Ventilator 100 07/21/20 12:46 23 113/53 Mechanical Ventilator 100 07/21/20 12:45 22 124/45 Non-Rebreather 100 07/21/20 12:30 53 21 113/53 (73) 93 07/21/20 12:05 22 121/53 Mechanical Ventilator 100 07/21/20 12:00 Mechanical Ventilator Mechanical Ventilator 07/21/20 12:00 100 07/21/20 12:00 49 12/24/20 12:00 99.2 49 22 111/54 (73) 94 07/21/20 11:56 22 121/52 Mechanical Ventilator 100 07/21/20 11:12 47 22 100 07/21/20 11:05 24 138/59 Mechanical Ventilator 100 07/21/20 11:00 51 22 107/53 (71) 93 07/21/20 10:56 24 138/59 Mechanical Ventilator 100 07/21/20 10:05 22 106/52 Mechanical Ventilator 100 07/21/20 10:00 53 22 104/51 (68) 94 07/21/20 09:56 22 106/52 Mechanical Ventilator 100 07/21/20 09:30 58 22 110/50 (70) 95 07/21/20 09:05 22 118/61 Mechanical Ventilator 100 07/21/20 09:00 57 21 118/61 (80) 96 07/21/20 08:56 22 118/61 Mechanical Ventilator 100 07/21/20 08:56 22 118/61 Mechanical Ventilator 100 07/21/20 08:30 52 22 103/50 (67) 96 07/21/20 08:00 98.7 51 22 104/53 (70) 96 07/21/20 08:00 100 07/21/20 08:00 Mechanical Ventilator Mechanical Ventilator 07/21/20 08:00 54 07/21/20 07:56 23 104/53 Mechanical Ventilator 100 07/21/20 07:56 22 104/53 Mechanical Ventilator 100 07/21/20 07:13 61 22 100 07/21/20 07:00 52 22 102/53 (69) 95 07/21/20 06:56 24 102/53 Mechanical Ventilator 100 07/21/20 06:56 24 102/53 Mechanical Ventilator 100 07/21/20 06:00 54 22 105/52 (69) 96 07/21/20 05:56 22 105/52 Mechanical Ventilator 100 07/21/20 05:56 22 105/52 Mechanical Ventilator 100 07/21/20 05:08 24 111/51 Mechanical Ventilator 100 07/21/20 05:00 65 20 111/51 (71) 95 07/21/20 04:56 24 111/56 Mechanical Ventilator 100 07/21/20 04:56 24 111/51 Mechanical Ventilator 100 07/21/20 04:56 61 22 109/52 (71) 97 12/24/20 04:44 25 105/56 Mechanical Ventilator 100 07/21/20 04:41 24 109/52 Mechanical Ventilator 100 07/21/20 04:41 51 22 111/54 (73) 97 07/21/20 04:08 25 105/56 Mechanical Ventilator 100 07/21/20 04:00 Mechanical Ventilator Mechanical Ventilator 07/21/20 04:00 98.7 54 22 105/54 (71) 97 07/21/20 04:00 100 07/21/20 03:56 25 105/54 Mechanical Ventilator 100 07/21/20 03:33 52 07/21/20 03:08 23 106/58 Mechanical Ventilator 100 07/21/20 03:00 80 23 106/58 (74) 94 07/21/20 02:56 23 106/58 Mechanical Ventilator 100 07/21/20 02:45 52 22 100 07/21/20 02:30 47 22 108/53 (71) 96 07/21/20 02:08 22 110/54 Mechanical Ventilator 100 07/21/20 02:02 22 106/52 Mechanical Ventilator 100 07/21/20 02:00 48 22 110/54 (72) 97 07/21/20 01:56 22 110/54 Mechanical Ventilator 100 07/21/20 01:30 49 22 106/52 (70) 96 07/21/20 01:08 22 106/52 Mechanical Ventilator 100 07/21/20 01:00 48 22 106/52 (70) 97 07/21/20 00:56 22 106/53 Mechanical Ventilator 100 07/21/20 00:30 48 22 105/53 (70) 97 07/21/20 00:08 22 106/53 Mechanical Ventilator 100 07/21/20 00:00 100 07/21/20 00:00 98.5 48 22 106/53 (70) 97 07/21/20 00:00 Mechanical Ventilator Mechanical Ventilator 07/20/20 23:56 22 106/51 Mechanical Ventilator 100 07/20/20 23:53 51 07/20/20 23:30 50 22 103/53 (70) 96 07/20/20 23:08 22 104/51 Mechanical Ventilator 100 07/20/20 23:00 49 22 106/51 (69) 95 07/20/20 22:56 22 100/52 Mechanical Ventilator 100 07/20/20 22:43 51 22 100 12/23/20 22:30 52 22 103/52 (69) 94 07/20/20 22:25 22 97/51 Mechanical Ventilator 100 07/20/20 22:08 22 97/51 Mechanical Ventilator 100 07/20/20 22:00 54 22 99/52 (68) 94 07/20/20 21:56 22 99/52 Mechanical Ventilator 100 07/20/20 21:30 56 22 100/56 (71) 95 07/20/20 21:08 22 97/54 Mechanical Ventilator 100 07/20/20 21:00 59 22 97/54 (68) 96 07/20/20 20:56 22 94/54 Mechanical Ventilator 100 07/20/20 20:08 22 114/52 Mechanical Ventilator 100 07/20/20 20:00 62 07/20/20 20:00 98.5 62 22 107/55 (72) 96 07/20/20 20:00 100 07/20/20 20:00 Mechanical Ventilator 07/20/20 19:56 22 107/54 Mechanical Ventilator 100 07/20/20 19:08 22 164/119 Mechanical Ventilator 100 07/20/20 19:00 66 22 126/66 (86) 96 07/20/20 18:58 79 33 100 07/20/20 18:56 22 111/61 Mechanical Ventilator 100 07/20/20 18:30 55 22 115/72 (86) 95 07/20/20 18:24 22 105/61 Mechanical Ventilator 100 07/20/20 18:23 22 105/61 Mechanical Ventilator 100 07/20/20 18:08 22 101/61 Mechanical Ventilator 100 HEENT: Orally intubated, Mechanically Ventilated, Thin secretions ET Tube RHYTHM: SB LUNGS: bilateral rhonchi CARDIAC: regular rhythm, normal S1 and S2, bradycardia ABDOMEN: normal bowel sounds, non tender, soft EXTREMITIES: normal range of motion, non-tender Laboratory Tests Test 07/21/20 00:34 07/21/20 04:00 07/21/20 04:50 07/21/20 08:09 POC Whole Blood Glucose 351 MG/DL (74-106) H Pending White Blood Count 12.5 K/UL (4.8-10.8) H Red Blood Count 5.04 M/UL (4.70-6.10) Hemoglobin 15.4 G/DL (14.2-18.0) Hematocrit 47.1 % (42.0-52.0) Mean Corpuscular Volume 94 FL (80-99) Mean Corpuscular Hemoglobin 30.5 PG (27.0-31.0) Mean Corpuscular Hemoglobin Concent 32.6 G/DL (32.0-36.0) Red Cell Distribution Width 11.7 % (11.6-14.8) Platelet Count 485 K/UL (150-450) H Mean Platelet Volume 6.7 FL (6.5-10.1) Neutrophils (%) (Auto) % (45.0-75.0) Lymphocytes (%) (Auto) % (20.0-45.0) Monocytes (%) (Auto) % (1.0-10.0) Eosinophils (%) (Auto) % (0.0-3.0) Basophils (%) (Auto) % (0.0-2.0) Differential Total Cells Counted 100 Neutrophils % (Manual) 86 % (45-75) H Lymphocytes % (Manual) 10 % (20-45) L Monocytes % (Manual) 4 % (1-10) Eosinophils % (Manual) 0 % (0-3) Basophils % (Manual) 0 % (0-2) Band Neutrophils 0 % (0-8) Platelet Estimate Adequate Platelet Morphology Normal Red Blood Cell Morphology Normal Sodium Level 133 MMOL/L (136-145) L Potassium Level 4.5 MMOL/L (3.5-5.1) Chloride Level 102 MMOL/L (98-107) Carbon Dioxide Level 27 MMOL/L (21-32) Anion Gap 4 mmol/L (5-15) L Blood Urea Nitrogen 18 mg/dL (7-18) Creatinine 0.8 MG/DL (0.55-1.30) Estimat Glomerular Filtration Rate > 60 mL/min (>60) Glucose Level 340 MG/DL (74-106) H Calcium Level 8.2 MG/DL (8.5-10.1) L Triglycerides Level 230 MG/DL (30-150) H Arterial Blood pH 7.390 (7.350-7.450) Arterial Blood Partial Pressure CO2 45.2 mmHg (35.0-45.0) H Arterial Blood Partial Pressure O2 78.2 mmHg (75.0-100.0) Arterial Blood HCO3 26.7 mmol/L (22.0-26.0) H Arterial Blood Oxygen Saturation 95.1 % (95-100) Arterial Blood Base Excess 1.3 (-2-2) Jacob Test Positive Assessment/Plan Assessment/Plan Covid 19 PNA Acute respiratory failure with Hypoxia Sinus bradycardia 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 Continuous cardiac monitoring Anticoagulation and steroid rx Titrate oxygen as able Anti-viral rx Protein suppl Insulin cov'g by SS; levemir dose advanced further. Stress test once Covid-free to check chronotropic competence. Chuck Swain MD Jul 21, 2020 18:07
[2020-07-21] MEDS ORDERED: Levemir Flexpen SUBQ SCH (18:09)
--- NOTE | 2020-07-21 19:12 | NUR ---
NURSE HAND-OFF REPORT: Latest Vital Signs: Temperature 99.3 , Pulse 63 , B/P 112 /58 , Respiratory Rate 21 , O2 SAT 94 , Non-Rebreather, O2 Flow Rate . Vital Sign Comment: ELIER Srivastava EKG Rhythm: Sinus Bradycardia Rhythm change?: N Notified?: Ildefonso Cherry MD Response: Latest Bradley Fall Score: 30 Fall Risk: Medium Risk Safety Measures: Call light Within Reach, Bed Alarm Zone 2, Side Rails Side Rails x2, Bed position Low and Locked. Fall Precautions: Yellow Socks Yellow Gown Patient Fall Education Report given to ELIER Srivastava.
--- NOTE | 2020-07-21 19:30 | NUR ---
NURSE NOTES: Received report from ELIER kuhn. Pt is sedated on the bed and RASS -2. Able to open the eye spontaneously. On cardiac technician with . aware episode of SB. Pt has ETT and orally intubated. Vent dependent and setting with AC: 22, T: 500, P:8, FiO2 100% and SaO2 92% noted. Given suction and oral care. Pt has OGT and on running with Vital AF @ 30cc/hr and goal is 55cc/hr. Noted residual 50cc. Checked BT : 99.2F. Keep cooling measure. Pt has Biswas cath and patent and drainage well. Pt has new PICC line and dressing is clean and dry. No sign of pain by FLACC scale. On running with propofol @ 50mcg/kg/min, Fentanyl @ 100mcg/hr and D51/2NS @ 50cc/hr. Pt has bilateral soft restraint. Trying to release bilateral soft restraint but Pt trying to reach and touch ETT. checked comfort and circulation. Placed fall precaution. On proper isolation for COVID-19. Will continue to care plan.
[2020-07-21] MEDS: Dyna-Hex 2% Top Sol 2oz TOPIC SCH (19:49)
--- NOTE | 2020-07-21 20:00 | NUR ---
NURSE NOTES: Pt's triglycerides level is high. Trying to taper propofol. RASS -2. Decrease Propofol 45mcg/kg/min and increase fentanyl @ 110mcg/hr. Will continue to monitor.
--- NOTE | 2020-07-21 22:30 | NUR ---
NURSE NOTES: Pt is sedated on the bed. Noted RASS -3. Decrease propofol gtt @ 40mcg/kg/min and continue Fentanyl drip @ 120mcg/hr. SaO2 91-92% with current Vent setting. Given suction and oral care. Change position. Keep cooling measure. Will continue to monitor any change of condition.
[2020-07-22] VITALS (57 sets, daily range): BP systolic 113–148; BP diastolic 54–76
--- NOTE | 2020-07-22 | NUR ---
NURSE NOTE: Pt is sedated on the bed and RASS score -2. On running with propofol @ 40mcg/kg/min and Fentanyl @ 120mcg/hr. SaO2 93-94% with current vent setting. Given suction and oral care. Noted BT : 98.8F. Placed fall precaution. Will continue to monitor any change of condition.
[2020-07-22] MEDS: propofoL 1,000mg/100ml 100 ML IV SCH ×6 (00:40→23:21)
--- NOTE | 2020-07-22 02:00 | NUR ---
NURSE NOTES: Given suction and oral care. Turn and reposition. On running with OGT feeding @ 30cc/hr but still noted residual @ 50cc. Keep HOB position. SaO2 94-95% with current Vent setting. Placed fall precaution. Will continue to monitor any change of condition.
--- NOTE | 2020-07-22 04:00 | NUR ---
NURSE NOTES: Morning care was done. Cleaned Pt and applied lotion and cream. No open wound noted. 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 changed position to prone. Pt is agitated and noted RASS +1. Increase Fentanyl drip @ 140mcg/hr. On running with propofol @ 40mcg/kg/min. given suction and oral care. Checked BT: 98.9F. collected blood sample. Will continue to monitor any change of condition.
[2020-07-22] MEDS: D5 1/2NS 1,000 ML IV SCH (05:07)
[2020-07-22] MEDS: NovoLOG Insulin Flexpen SUBQ SCH ×4 (06:04→18:43)
[2020-07-22 06:09] LABS: HEMATOCRIT 42.7 % (42.0-52.0); HEMOGLOBIN 14.3 G/DL (14.2-18.0); MEAN CORPUSCULAR VOLUME 92 FL (80-99); PLATELET COUNT 427 K/UL (150-450); RED BLOOD COUNT 4.66 M/UL (4.70-6.10); RED CELL DISTRIBUTION WIDTH 12.2 % (11.6-14.8); WHITE BLOOD COUNT 15.4 K/UL (4.8-10.8)
--- NOTE | 2020-07-22 06:15 | NUR ---
NURSE NOTES: Pt is sedated on the bed and RASS -2. On running Fentanyl drip @ 140mcg/hr, propofol @ 40mcg/kg/min and D52/1NS @ 50cc/hr. On cadd drafter with SR. Keep prone position. Will continue to monitor any change of condition.
[2020-07-22 06:41] LABS: ANION GAP 5 mmol/L (5-15); BLOOD UREA NITROGEN 18 mg/dL (7-18); CALCIUM 8.3 MG/DL (8.5-10.1); CARBON DIOXIDE 28 MMOL/L (21-32); CHLORIDE 102 MMOL/L (98-107); CREATININE 0.7 MG/DL (0.55-1.30); POTASSIUM 4.2 MMOL/L (3.5-5.1); SODIUM 135 MMOL/L (136-145)
--- NOTE | 2020-07-22 07:32 | NUR ---
NURSE HAND-OFF REPORT: Latest Vital Signs: Temperature 98.9 , Pulse 72 , B/P 142 /74 , Respiratory Rate 19 , O2 SAT 97 , Mechanical Ventilator, O2 Flow Rate . Vital Sign Comment: EKG Rhythm: Sinus Rhythm Rhythm change?: N Latest Bradley Fall Score: 30 Fall Risk: Medium Risk Safety Measures: Call light Within Reach, Bed Alarm Zone 2, Side Rails Side Rails x2, Bed position Low and Locked. Fall Precautions: Yellow Socks Yellow Gown Patient Fall Education Report given to Charles Martin. Pt is sedated on the bed and RASS -2. on running with propofol @ 40mcg/kg/min and Fentanyl @ 140mcg/hr. on prone position.
--- NOTE | 2020-07-22 08:00 | NUR ---
NURSE NOTES: Pt was assessed after receiving change of shift report from Carola THAPA. Pt is sedated -2 light sedation per RASS score while maintained on Fentanyl drip 140mcg/hr and Propofol drip 40mcg/kg/min, opens eyes to voice, able to follow simple commands. Orally intubated, ETT 7.5 at 22cm lipline with vent settings AC22, VT500, Peep 8, FIO2 100%, O2Sat 96-98%. Bilateral rhonchi on auscultation. NSR on monitor technician. Pt is currently on prone position, since 0400 this morning, per Dr. Ortega's order. Temp 99F axillary. OGT with feeding Vital AF per nutrition recommendation, infusing at 15ml/hour, residual noted 50ml. Will hold feeding for now since pt is on prone position. Biswas catheter is present, draining clear/yellow urine. Left upper arm double lumen PICC line, and peripheral IV access present on left FA#20G and right FA #22G, all patent/intact. Skin is intact. Bilateral soft wrist restraints are in place to prevent self extubation, vascular/skin integrity remain within normal limits at restraint site. Bed locked/in lowest position, three side rails up. Will continue with plan of care.
[2020-07-22] MEDS: Ascorbic Acid 500mg tab ORAL SCH ×2 (08:28→18:16)
[2020-07-22] MEDS: Vitamin D 1000 units Tab ORAL SCH (08:29)
[2020-07-22] MEDS: Vitamin B Complex Tab ORAL SCH (08:29)
[2020-07-22] MEDS: Enoxaparin 40mg Inj SUBQ SCH ×2 (08:30→20:26)
[2020-07-22] MEDS: Solu-MEDROL 40mg Inj IVP SCH ×2 (08:30→20:25)
[2020-07-22] MEDS: Levemir Flexpen SUBQ SCH ×2 (08:58→18:43)
[2020-07-22] MEDS: fentaNYL 2500mcg/NS 250ml 250 ML IV SCH ×2 (09:43→12:45)
--- NOTE | 2020-07-22 09:43 | NUR ---
NURSE NOTES: New Propofol vial was scanned to replace the current one that is now empty, continuing same rate since pt remains -2 light sedation on RASS score. Miky/pharmacist contacted the nurse's station, per Miky, new Fentanyl bag was dispensed and is now scanned before the new bag expires, will replace the current bag, which still has 43.75ml remaining. The remaining amount was wasted and witnessed with 2nd nurse, Shyla RN/charge nurse. Per Miky/krissy, "okay to round IV spreadsheet to reassess RASS score on the hour to prevent confusion, as long as RASS score is being assessed every hour per protocol".
--- NOTE | 2020-07-22 10:56 | Pulmonolgy Critical Care Note ---
Critical Care - Asmt/Plan Assessment/Plan: Pulmonary CCM Progress Noted Subjective ROS Limited/Unobtainable: Yes Constitutional: Reports: no symptoms Gastrointestinal/Abdominal: Reports: no symptoms Musculoskeletal: Denies: pain Allergies: Coded Allergies: No Known Allergies (Unverified , 03/08/17) All Systems: reviewed and negative except above Not candidate for Remdesivir - increased LFT's Intubated, on ACVC,CXR ETT satisfactory,bilateral infiltrates,PICC in position ABG improved Sedated on the ventilator Propofol/Fentenyl gtt Medications noted Objective Vital Signs noted PE deferred due to COVID 19 Laboratory Tests noted Assessment/Plan Assessment/Plan Acute hypoxemic respiratory failure In ICU on ventilator COVID pneumonia Asthma elevated liver enzymes PLAN ACVC ABG PRN monitor imaging PRN monitor ABG PRN decadron/Antivirals/AB per ID respiratory care Nutrition consult ID noted DVT prophylaxis taper FIO2 as able monitor respiratory status for change at risk for intubation impression, plan, and exam edited and reviewed in detail care discussed with nuclear monitoring technician - Objective Last 24 Hour Vital Signs Date Time Temp Pulse Resp B/P (MAP) Pulse Ox O2 Delivery O2 Flow Rate FiO2 07/22/20 10:30 76 21 131/68 (89) 95 07/22/20 10:00 92 23 125/73 (90) 92 07/22/20 09:43 22 126/62 Mechanical Ventilator 15.0 100 07/22/20 09:42 22 126/62 Mechanical Ventilator 15.0 100 07/22/20 09:30 75 24 141/72 (95) 97 07/22/20 09:00 75 24 122/67 (85) 96 07/22/20 08:30 82 22 145/69 (94) 97 07/22/20 08:15 22 126/62 Mechanical Ventilator 100 07/22/20 08:15 22 126/62 Mechanical Ventilator 100 07/22/20 08:00 99.4 88 22 142/74 (96) 97 07/22/20 08:00 87 07/22/20 08:00 100 07/22/20 08:00 Mechanical Ventilator Mechanical Ventilator 07/22/20 07:28 65 24 100 07/22/20 07:15 72 19 142/74 (96) 97 07/22/20 07:15 19 142/74 Mechanical Ventilator 100 07/22/20 07:15 19 142/74 Mechanical Ventilator 100 07/22/20 07:00 66 20 128/65 (86) 96 07/22/20 06:30 68 20 125/67 (86) 96 07/22/20 06:15 69 21 130/64 (86) 96 07/22/20 06:15 21 130/64 Mechanical Ventilator 100 07/22/20 06:15 21 130/64 Mechanical Ventilator 100 07/22/20 06:00 79 25 131/66 (87) 96 07/22/20 05:30 79 22 139/66 (90) 95 07/22/20 05:15 74 19 133/76 (95) 96 07/22/20 05:15 19 133/76 Mechanical Ventilator 100 07/22/20 05:15 19 133/76 Mechanical Ventilator 100 07/22/20 05:07 22 122/67 Mechanical Ventilator 100 07/22/20 05:00 79 21 122/67 (85) 95 07/22/20 04:45 90 24 127/56 (79) 93 07/22/20 04:30 60 16 121/69 (86) 95 07/22/20 04:15 60 21 145/67 (93) 95 07/22/20 04:15 21 145/67 Mechanical Ventilator 100 07/22/20 04:15 21 145/67 Mechanical Ventilator 100 07/22/20 04:00 22 143/61 Mechanical Ventilator 100 07/22/20 04:00 22 143/61 Mechanical Ventilator 100 07/22/20 04:00 100 07/22/20 04:00 61 07/22/20 04:00 Mechanical Ventilator Mechanical Ventilator 07/22/20 04:00 98.9 61 22 143/61 (88) 95 07/22/20 03:45 62 22 139/56 (83) 95 07/22/20 03:30 62 22 132/62 (85) 95 07/22/20 03:07 55 24 100 07/22/20 03:00 54 21 136/58 (84) 95 07/22/20 02:45 52 21 133/57 (82) 95 07/22/20 02:45 21 133/57 Mechanical Ventilator 100 07/22/20 02:45 21 133/27 Mechanical Ventilator 100 07/22/20 02:30 53 21 133/57 (82) 95 07/22/20 02:00 56 21 133/56 (81) 94 07/22/20 01:45 53 22 132/59 (83) 94 07/22/20 01:45 22 132/59 Mechanical Ventilator 100 07/22/20 01:45 22 132/59 Mechanical Ventilator 100 07/22/20 01:30 53 22 133/58 (83) 95 07/22/20 01:00 55 21 132/54 (80) 94 07/22/20 00:45 22 130/57 Mechanical Ventilator 100 07/22/20 00:45 22 130/57 Mechanical Ventilator 100 07/22/20 00:40 22 130/57 Mechanical Ventilator 100 07/22/20 00:30 53 22 130/57 (81) 94 07/22/20 00:00 98.8 57 21 136/56 (82) 93 07/22/20 00:00 Mechanical Ventilator Mechanical Ventilator 07/22/20 00:00 100 07/22/20 00:00 53 07/21/20 23:45 22 138/66 Mechanical Ventilator 100 07/21/20 23:45 22 138/66 Mechanical Ventilator 100 07/21/20 23:45 68 22 138/66 (90) 93 07/21/20 23:30 55 20 129/55 (79) 92 07/21/20 23:15 56 26 100 07/21/20 23:00 56 21 129/55 (79) 92 07/21/20 22:45 21 121/56 Mechanical Ventilator 100 07/21/20 22:45 21 121/56 Mechanical Ventilator 100 07/21/20 22:45 66 21 121/56 (77) 92 07/21/20 22:30 21 135/61 Mechanical Ventilator 100 07/21/20 22:30 21 135/61 Mechanical Ventilator 100 07/21/20 22:30 55 21 135/61 (85) 92 07/21/20 22:00 60 22 133/60 (84) 93 07/21/20 21:45 61 21 129/62 (84) 94 07/21/20 21:30 22 134/58 Mechanical Ventilator 100 07/21/20 21:30 22 134/58 Mechanical Ventilator 100 07/21/20 21:30 63 22 134/58 (83) 94 07/21/20 21:15 63 21 131/58 (82) 94 07/21/20 21:00 72 20 131/59 (83) 94 07/21/20 20:45 22 120/56 Mechanical Ventilator 100 07/21/20 20:45 70 21 140/62 (88) 95 07/21/20 20:30 67 21 120/56 (77) 94 07/21/20 20:30 21 120/56 Mechanical Ventilator 100 20 20:30 21 120/56 Mechanical Ventilator 100 07/21/20 20:15 20 132/52 Mechanical Ventilator 100 07/21/20 20:15 20 132/52 Mechanical Ventilator 100 07/21/20 20:15 66 20 132/52 (78) 94 07/21/20 20:00 100 07/21/20 20:00 69 07/21/20 20:00 99.2 75 22 114/61 (78) 94 07/21/20 20:00 22 114/61 Mechanical Ventilator 100 07/21/20 20:00 22 114/61 Mechanical Ventilator 100 07/21/20 20:00 Mechanical Ventilator Mechanical Ventilator 07/21/20 19:45 65 21 117/59 (78) 94 07/21/20 19:30 69 21 118/65 (82) 95 07/21/20 19:30 21 118/65 Mechanical Ventilator 100 07/21/20 19:25 67 22 100 07/21/20 19:00 63 21 112/58 (76) 94 07/21/20 19:00 22 112/58 Mechanical Ventilator 100 07/21/20 18:30 22 111/54 Non-Rebreather 100 07/21/20 18:00 22 111/54 Mechanical Ventilator 100 07/21/20 18:00 60 22 112/57 (75) 93 07/21/20 17:53 99.3 07/21/20 17:29 22 130/69 Mechanical Ventilator 100 07/21/20 17:00 62 22 118/53 (74) 93 07/21/20 16:59 24 128/59 Mechanical Ventilator 100 07/21/20 16:58 22 130/69 Mechanical Ventilator 100 07/21/20 16:46 22 138/65 Mechanical Ventilator 100 07/21/20 16:00 Mechanical Ventilator Mechanical Ventilator 07/21/20 16:00 57 07/21/20 16:00 100.0 52 22 118/53 (74) 93 07/21/20 16:00 100 07/21/20 15:56 22 110/52 Mechanical Ventilator 100 07/21/20 15:56 22 110/52 Mechanical Ventilator 100 07/21/20 15:48 60 22 100 07/21/20 15:46 22 110/52 Mechanical Ventilator 100 07/21/20 15:30 65 23 117/51 (73) 92 07/21/20 15:00 49 22 113/55 (74) 94 07/21/20 14:56 22 113/55 Mechanical Ventilator 100 07/21/20 14:46 22 113/55 Mechanical Ventilator 100 07/21/20 13:56 22 111/54 Mechanical Ventilator 100 07/21/20 13:46 22 111/54 Mechanical Ventilator 100 07/21/20 13:45 51 22 116/51 (72) 93 07/21/20 13:30 49 22 115/52 (73) 94 07/21/20 13:00 51 22 117/55 (75) 93 07/21/20 12:56 20 128/56 Mechanical Ventilator 100 07/21/20 12:46 23 113/53 Mechanical Ventilator 100 07/21/20 12:45 22 124/45 Non-Rebreather 100 07/21/20 12:30 53 21 113/53 (73) 93 07/21/20 12:05 22 121/53 Mechanical Ventilator 100 07/21/20 12:00 Mechanical Ventilator Mechanical Ventilator 07/21/20 12:00 100 07/21/20 12:00 49 07/21/20 12:00 99.2 49 22 111/54 (73) 94 07/21/20 11:56 22 121/52 Mechanical Ventilator 100 07/21/20 11:12 47 22 100 07/21/20 11:05 24 138/59 Mechanical Ventilator 100 07/21/20 11:00 51 22 107/53 (71) 93 07/21/20 10:56 24 138/59 Mechanical Ventilator 100 Accucheck: 337 Critical Care - Subjective ROS Limited/Unobtainable: Yes Condition: critical EKG Rhythm: Sinus Rhythm FI02: 100 Vent Support Breath Rate: 22 Vent Support Mode: AC Vent Tidal Volume: 500 Sputum Amount: Small PEEP: 8.0 PIP: 39 Tube Feeding Amount: 15 I&O: Intake and Output 07/21/20 07/22/20 19:00 07:00 Intake Total 1156.28 ml 1286.631 ml Output Total 655 ml 750 ml Balance 501.28 ml 536.631 ml Free Water 180 ml IV Total 886.28 ml 986.631 ml Tube Feeding 90 ml 300 ml Output Urine Total 655 ml 750 ml ET-Tube: 7.5 ET Position: 22 Chuck Ortega MD Jul 22, 2020 10:56
--- NOTE | 2020-07-22 12:00 | NUR ---
NURSE NOTES: Propofol and Fentanyl Rx have been renewed for additional 48hours, order in place to reassess Triglycerides tomorrow AM. Pt remains in prone position, with stable O2SAT 96-99%. Temp 99.9F axillary. Pt was seen by Dr Wing. MD was updated on pt's current status and aware of fluctuating temps above 99F.
--- NOTE | 2020-07-22 13:39 | Infectious Diseases Prog Note ---
Assessment/Plan Assessment/Plan A: 1. COVID-19 pneumonia. 2. History of asthma. 3. Elevated liver function tests. 4. Fatty liver 5. DM with hyperglycemia 6. Leukocytosis 7. Hypoxic respiratory failure PLAN: 1. Continue Methylprednisone 2. Continue isolation. 3. Continue Rocephin 4. will f/u Sputum culture Subjective ROS Limited/Unobtainable: Yes Constitutional: Denies: fever Neurologic: Reports: other - on restraint Allergies: Coded Allergies: No Known Allergies (Unverified , 03/08/17) Objective Last 24 Hour Vital Signs Date Time Temp Pulse Resp B/P (MAP) Pulse Ox O2 Delivery O2 Flow Rate FiO2 07/22/20 12:00 22 137/93 Mechanical Ventilator 100 07/22/20 12:00 22 137/93 Mechanical Ventilator 100 07/22/20 11:30 80 22 129/74 (92) 94 07/22/20 11:24 74 22 100 07/22/20 11:00 76 20 138/74 (95) 94 07/22/20 11:00 21 133/69 Mechanical Ventilator 100 07/22/20 11:00 21 133/69 Mechanical Ventilator 100 07/22/20 10:30 76 21 131/68 (89) 95 07/22/20 10:00 21 131/64 Mechanical Ventilator 100 07/22/20 10:00 21 131/64 Mechanical Ventilator 100 07/22/20 10:00 92 23 125/73 (90) 92 07/22/20 09:43 22 126/62 Mechanical Ventilator 15.0 100 07/22/20 09:42 22 126/62 Mechanical Ventilator 15.0 100 07/22/20 09:30 75 24 141/72 (95) 97 07/22/20 09:15 22 137/72 Mechanical Ventilator 100 07/22/20 09:15 22 137/72 Mechanical Ventilator 100 07/22/20 09:00 75 24 122/67 (85) 96 07/22/20 08:30 82 22 145/69 (94) 97 07/22/20 08:15 22 126/62 Mechanical Ventilator 100 07/22/20 08:15 22 126/62 Mechanical Ventilator 100 07/22/20 08:00 99.4 88 22 142/74 (96) 97 07/22/20 08:00 87 07/22/20 08:00 100 07/22/20 08:00 Mechanical Ventilator Mechanical Ventilator 07/22/20 07:28 65 24 100 07/22/20 07:15 72 19 142/74 (96) 97 07/22/20 07:15 19 142/74 Mechanical Ventilator 100 07/22/20 07:15 19 142/74 Mechanical Ventilator 100 07/22/20 07:00 66 20 128/65 (86) 96 07/22/20 06:30 68 20 125/67 (86) 96 07/22/20 06:15 69 21 130/64 (86) 96 07/22/20 06:15 21 130/64 Mechanical Ventilator 100 07/22/20 06:15 21 130/64 Mechanical Ventilator 100 07/22/20 06:00 79 25 131/66 (87) 96 07/22/20 05:30 79 22 139/66 (90) 95 07/22/20 05:15 74 19 133/76 (95) 96 07/22/20 05:15 19 133/76 Mechanical Ventilator 100 07/22/20 05:15 19 133/76 Mechanical Ventilator 100 07/22/20 05:07 22 122/67 Mechanical Ventilator 100 07/22/20 05:00 79 21 122/67 (85) 95 07/22/20 04:45 90 24 127/56 (79) 93 07/22/20 04:30 60 16 121/69 (86) 95 07/22/20 04:15 60 21 145/67 (93) 95 07/22/20 04:15 21 145/67 Mechanical Ventilator 100 07/22/20 04:15 21 145/67 Mechanical Ventilator 100 07/22/20 04:00 22 143/61 Mechanical Ventilator 100 07/22/20 04:00 22 143/61 Mechanical Ventilator 100 07/22/20 04:00 100 07/22/20 04:00 61 07/22/20 04:00 Mechanical Ventilator Mechanical Ventilator 07/22/20 04:00 98.9 61 22 143/61 (88) 95 07/22/20 03:45 62 22 139/56 (83) 95 07/22/20 03:30 62 22 132/62 (85) 95 07/22/20 03:07 55 24 100 07/22/20 03:00 54 21 136/58 (84) 95 07/22/20 02:45 52 21 133/57 (82) 95 07/22/20 02:45 21 133/57 Mechanical Ventilator 100 07/22/20 02:45 21 133/27 Mechanical Ventilator 100 07/22/20 02:30 53 21 133/57 (82) 95 07/22/20 02:00 56 21 133/56 (81) 94 07/22/20 01:45 53 22 132/59 (83) 94 07/22/20 01:45 22 132/59 Mechanical Ventilator 100 07/22/20 01:45 22 132/59 Mechanical Ventilator 100 07/22/20 01:30 53 22 133/58 (83) 95 07/22/20 01:00 55 21 132/54 (80) 94 07/22/20 00:45 22 130/57 Mechanical Ventilator 100 07/22/20 00:45 22 130/57 Mechanical Ventilator 100 07/22/20 00:40 22 130/57 Mechanical Ventilator 100 07/22/20 00:30 53 22 130/57 (81) 94 07/22/20 00:00 98.8 57 21 136/56 (82) 93 07/22/20 00:00 Mechanical Ventilator Mechanical Ventilator 07/22/20 00:00 100 07/22/20 00:00 53 07/21/20 23:45 22 138/66 Mechanical Ventilator 100 07/21/20 23:45 22 138/66 Mechanical Ventilator 100 07/21/20 23:45 68 22 138/66 (90) 93 07/21/20 23:30 55 20 129/55 (79) 92 07/21/20 23:15 56 26 100 07/21/20 23:00 56 21 129/55 (79) 92 07/21/20 22:45 21 121/56 Mechanical Ventilator 100 07/21/20 22:45 21 121/56 Mechanical Ventilator 100 07/21/20 22:45 66 21 121/56 (77) 92 07/21/20 22:30 21 135/61 Mechanical Ventilator 100 07/21/20 22:30 21 135/61 Mechanical Ventilator 100 07/21/20 22:30 55 21 135/61 (85) 92 07/21/20 22:00 60 22 133/60 (84) 93 07/21/20 21:45 61 21 129/62 (84) 94 07/21/20 21:30 22 134/58 Mechanical Ventilator 100 07/21/20 21:30 22 134/58 Mechanical Ventilator 100 07/21/20 21:30 63 22 134/58 (83) 94 07/21/20 21:15 63 21 131/58 (82) 94 07/21/20 21:00 72 20 131/59 (83) 94 07/21/20 20:45 22 120/56 Mechanical Ventilator 100 07/21/20 20:45 70 21 140/62 (88) 95 07/21/20 20:30 67 21 120/56 (77) 94 07/21/20 20:30 21 120/56 Mechanical Ventilator 100 07/21/20 20:30 21 120/56 Mechanical Ventilator 100 07/21/20 20:15 20 132/52 Mechanical Ventilator 100 07/21/20 20:15 20 132/52 Mechanical Ventilator 100 07/21/20 20:15 66 20 132/52 (78) 94 07/21/20 20:00 100 07/21/20 20:00 69 07/21/20 20:00 99.2 75 22 114/61 (78) 94 07/21/20 20:00 22 114/61 Mechanical Ventilator 100 07/21/20 20:00 22 114/61 Mechanical Ventilator 100 07/21/20 20:00 Mechanical Ventilator Mechanical Ventilator 07/21/20 19:45 65 21 117/59 (78) 94 07/21/20 19:30 69 21 118/65 (82) 95 07/21/20 19:30 21 118/65 Mechanical Ventilator 100 07/21/20 19:25 67 22 100 07/21/20 19:00 63 21 112/58 (76) 94 07/21/20 19:00 22 112/58 Mechanical Ventilator 100 07/21/20 18:30 22 111/54 Non-Rebreather 100 07/21/20 18:00 22 111/54 Mechanical Ventilator 100 07/21/20 18:00 60 22 112/57 (75) 93 07/21/20 17:53 99.3 07/21/20 17:29 22 130/69 Mechanical Ventilator 100 07/21/20 17:00 62 22 118/53 (74) 93 07/21/20 16:59 24 128/59 Mechanical Ventilator 100 07/21/20 16:58 22 130/69 Mechanical Ventilator 100 07/21/20 16:46 22 138/65 Mechanical Ventilator 100 12/24/20 16:00 Mechanical Ventilator Mechanical Ventilator 07/21/20 16:00 57 07/21/20 16:00 100.0 52 22 118/53 (74) 93 07/21/20 16:00 100 07/21/20 15:56 22 110/52 Mechanical Ventilator 100 07/21/20 15:56 22 110/52 Mechanical Ventilator 100 07/21/20 15:48 60 22 100 07/21/20 15:46 22 110/52 Mechanical Ventilator 100 07/21/20 15:30 65 23 117/51 (73) 92 07/21/20 15:00 49 22 113/55 (74) 94 07/21/20 14:56 22 113/55 Mechanical Ventilator 100 07/21/20 14:46 22 113/55 Mechanical Ventilator 100 07/21/20 13:56 22 111/54 Mechanical Ventilator 100 07/21/20 13:46 22 111/54 Mechanical Ventilator 100 07/21/20 13:45 51 22 116/51 (72) 93 Height (Feet): 5 Height (Inches): 6.00 Weight (Pounds): 209 HEENT: other - orally intubated Respiratory/Chest: other - on ventilator, prone position, LVN3=546% Cardiovascular: normal rate Abdomen: soft, non tender Neurologic/Psychiatric: other - sedated Laboratory Tests Test 07/21/20 16:34 07/21/20 23:38 07/22/20 04:20 07/22/20 05:58 POC Whole Blood Glucose 314 MG/DL (74-106) H Pending 337 MG/DL (74-106) H White Blood Count 15.4 K/UL (4.8-10.8) H Red Blood Count 4.66 M/UL (4.70-6.10) L Hemoglobin 14.3 G/DL (14.2-18.0) Hematocrit 42.7 % (42.0-52.0) Mean Corpuscular Volume 92 FL (80-99) Mean Corpuscular Hemoglobin 30.7 PG (27.0-31.0) Mean Corpuscular Hemoglobin Concent 33.5 G/DL (32.0-36.0) Red Cell Distribution Width 12.2 % (11.6-14.8) Platelet Count 427 K/UL (150-450) Mean Platelet Volume 6.8 FL (6.5-10.1) Neutrophils (%) (Auto) % (45.0-75.0) Lymphocytes (%) (Auto) % (20.0-45.0) Monocytes (%) (Auto) % (1.0-10.0) Eosinophils (%) (Auto) % (0.0-3.0) Basophils (%) (Auto) % (0.0-2.0) Differential Total Cells Counted 100 Neutrophils % (Manual) 90 % (45-75) H Lymphocytes % (Manual) 4 % (20-45) L Monocytes % (Manual) 6 % (1-10) Eosinophils % (Manual) 0 % (0-3) Basophils % (Manual) 0 % (0-2) Band Neutrophils 0 % (0-8) Platelet Estimate Adequate Platelet Morphology Normal Red Blood Cell Morphology Normal Sodium Level 135 MMOL/L (136-145) L Potassium Level 4.2 MMOL/L (3.5-5.1) Chloride Level 102 MMOL/L (98-107) Carbon Dioxide Level 28 MMOL/L (21-32) Anion Gap 5 mmol/L (5-15) Blood Urea Nitrogen 18 mg/dL (7-18) Creatinine 0.7 MG/DL (0.55-1.30) Estimat Glomerular Filtration Rate > 60 mL/min (>60) Glucose Level 335 MG/DL (74-106) H Calcium Level 8.3 MG/DL (8.5-10.1) L Current Medications Medications (Trade) Dose Ordered Sig/Milagro Route PRN Reason Start Time Stop Time Status Last Admin Dose Admin Acetaminophen (Tylenol) 500 mg Q4H PRN ORAL Mild Pain (Pain Scale 1-3) 07/09/20 21:45 08/08/20 21:44 07/21/20 17:23 Albuterol/ Ipratropium (Combivent Respimat) 2 puff Q2H PRN INH Shortness of Breath 07/09/20 21:45 08/08/20 21:44 07/19/20 09:17 Ascorbic Acid (Vitamin C) 500 mg TWICE A DAY ORAL 07/11/20 09:00 08/10/20 08:59 07/22/20 08:28 Ceftriaxone Sodium 1 gm/ Dextrose 55 ml @ 110 mls/hr Q24H IVPB 07/21/20 14:45 07/28/20 14:44 07/21/20 16:51 Chlorhexidine Gluconate (Marycarmen-Hex 2%) 1 applic DAILY@2000 TOPIC 07/20/20 20:00 10/18/20 19:59 07/21/20 19:49 Dextrose (Dextrose 50%) 25 ml Q30M PRN IV Hypoglycemia 07/15/20 00:00 10/13/20 00:00 Dextrose (Dextrose 50%) 50 ml Q30M PRN IV Hypoglycemia 07/15/20 00:00 10/13/20 00:00 Dextrose/Sodium Chloride 1,000 ml @ 50 mls/hr Q20H IV 07/20/20 12:45 08/19/20 12:44 07/22/20 05:07 Enoxaparin Sodium (Lovenox) 40 mg Q12HR SUBQ 07/18/20 21:00 10/16/20 20:59 07/22/20 08:30 Fentanyl Citrate 250 ml @ 1 mls/hr Q24H IV 07/20/20 12:45 07/24/20 12:44 07/22/20 09:43 Insulin Aspart (NovoLOG) Q6HR SUBQ 07/20/20 18:00 10/13/20 06:29 07/22/20 06:04 Insulin Detemir (Levemir) 20 units BID SUBQ 07/22/20 09:00 10/20/20 08:59 07/22/20 08:58 Methylprednisolone Sodium Succinate (Solu-MEDROL) 40 mg Q12HR IVP 07/13/20 21:00 07/23/20 21:30 07/22/20 08:30 Ondansetron HCl (Zofran) 4 mg Q6H PRN IVP Nausea & Vomiting 07/09/20 21:45 08/08/20 21:44 Pantoprazole (Protonix) 40 mg DAILY ORAL 07/10/20 09:00 08/09/20 08:59 07/22/20 08:29 Promethazine HCl/ Codeine (Phenergan with Codeine) 5 ml Q4H PRN ORAL For Cough 07/11/20 15:15 08/10/20 15:14 07/17/20 22:22 Propofol 100 ml @ 0 mls/hr Q12H IV 07/20/20 12:45 07/24/20 12:44 07/22/20 09:42 Vitamin B Complex (Vitamin B Complex) 1 tab DAILY ORAL 07/11/20 09:00 10/09/20 08:59 07/22/20 08:29 Vitamin D (Vitamin D) 1,000 unit DAILY ORAL 07/14/20 09:30 08/13/20 09:29 07/22/20 08:29 Mian Wing MD Jul 22, 2020 13:39
--- NOTE | 2020-07-22 14:00 | NUR ---
NURSE NOTES: VS remain stable. Pt remains -2 light sedation while on Propofol and Fentanyl drips, opens eyes to voice, and able to follow simple commands. Remains on prone position since 0400 this morning. Will reposition pt back to supine around 1600 per order.
--- NOTE | 2020-07-22 14:20 | NUR ---
NURSE NOTES: New Propofol vial was scanned to replace the current one that is now empty. Continuing same rate since pt remains -2 light sedation on RASS score.
[2020-07-22] MEDS: cefTRIAXone 1 GM in D5W 55 ML IVPB SCH (15:09)
--- NOTE | 2020-07-22 16:00 | NUR ---
NURSE NOTES: Pt was repositioned from prone to supine position. VS remain stable. Pt remains -2 light sedation while maintained on Fentanyl drip at 140mcg/hr and Propofol drip at 40mcg/kg/min. Temp now 99F. OGT feeding was resumed at 15ml/hour, since pt continues to have residual 60ml.
--- NOTE | 2020-07-22 18:34 | NUR ---
NURSE NOTES: New Propofol vial was removed from the pyxis to replace the current vial that is now empty. Continued same rate since pt remains -2 light sedation RASS score.
--- NOTE | 2020-07-22 19:20 | NUR ---
NURSE HAND-OFF REPORT: Latest Vital Signs: Temperature 99.0 , Pulse 69 , B/P 133 /72 , Respiratory Rate 22 , O2 SAT 98 , Mechanical Ventilator, ETT 7.5 at 22cm/lipline with vent settings AC22, VT500, Peep 8, FIo2 100%. Vital Sign Comment: Pt is maintained -2 light sedation RASS score while on Fentanyl and Propofol drips. Pt was repositioned from prone to supine position, after maintaining pt on prone position for 12hrs. EKG Rhythm: Sinus Rhythm Rhythm change?: N Notified?: Ildefonso Cherry MD Response: Latest Bradley Fall Score: 30 Fall Risk: Medium Risk Safety Measures: Call light Within Reach, Bed Alarm Zone 2, Side Rails Side Rails x2, Bed position Low and Locked. Fall Precautions: Yellow Socks Yellow Gown Patient Fall Education Report given to Carola THAPA. Endorsed plan of care.
--- NOTE | 2020-07-22 19:30 | NUR ---
NURSE NOTES: Received report from ELIER rod. Pt is sedated on the bed and RASS -2. Able to open the eye spontaneously. On mobile manager with SR. Pt has ETT and orally intubated. Vent dependent and setting with AC: 22, T: 500, P:8, FiO2 100% and SaO2 95-96% noted. Given suction and oral care. Pt has OGT and on running with Vital AF @ 15cc/hr and goal is 55cc/hr. Noted residual 10cc. Checked BT: 98.9F. Keep HOB. Pt has Biswas cath and patent and drainage well. Pt has PICC line and dressing is clean and dry. No sign of pain by FLACC scale. On running with propofol @ 40mcg/kg/min, Fentanyl @ 140mcg/hr and D51/2NS @ 50cc/hr. Pt has bilateral soft restraint. checked comfort and circulation. Placed fall precaution. On proper isolation for COVID-19. Will continue to care plan.
[2020-07-22] MEDS: Dyna-Hex 2% Top Sol 2oz TOPIC SCH (19:44)
--- NOTE | 2020-07-22 22:00 | NUR ---
NURSE NOTES: Pt is sleeping on the bed and calm. Trying to release bilateral soft wrist restraint and successful. D/C'd restraint. Given suction and oral care. Change to potion. On running with Jevity 1.2 @ 15cc/hr and noted 30cc residual. Keep HOB position. SaO2 93% with current Vent setting. Will continue to monitor any change of condition.
--- NOTE | 2020-07-22 22:30 | NUR ---
NURSE NOTES: Noted RASS +2. Noted patient-Vent dyssynchrony. Increase propofol @ 40mcg/kg/min. Will continue to monitor any change of condition.
[2020-07-23] VITALS (48 sets, daily range): BP systolic 118–179; BP diastolic 42–78
--- NOTE | 2020-07-23 | NUR ---
NURSE NOTES: Pt is sedated on the bed and RASS-2. SaO2 93% with current Vent setting. On running with propofol @ 40mcg/kg/min and fentanyl @ 160mcg/hr. Given suction and oral care. noted BT :99.3F. Keep cooling measure. Changed position. Placed fall precaution. Will continue to monitor any change of condition.
[2020-07-23] MEDS: D5 1/2NS 1,000 ML IV SCH (00:13)
--- NOTE | 2020-07-23 02:00 | NUR ---
NURSE NOTES: Pt is sedated on the bed but Pt trying to touch ETT and OGT. get order and applied bilateral soft restraint. Checked comfort and circulation. SaO2 94% with current Vent setting. Provided oral care and suction. On running with Fentanyl @ 160mcg/hr, propofol @ 40mcg/kg/min. Turn and reposition. on radiographer cardiac catheterization with SB. Will continue to monitor any change of condition.
--- NOTE | 2020-07-23 02:30 | Cardiology Progress Note ---
Subjective DATE OF SERVICE: Jul 22, 2020 Condition remains critical He remains on full vent support, on 100% FIO2 - orally intubated. Still with episodes of asymptomatic sinus bradycardia; but now in 47-81 range predominantly. No LOC or syncope. ABG (07/20) 7.46/34/47 (100% FIO2) Objective Last 24 Hour Vital Signs Date Time Temp Pulse Resp B/P (MAP) Pulse Ox O2 Delivery O2 Flow Rate FiO2 07/23/20 02:00 22 119/53 Mechanical Ventilator 100 07/23/20 02:00 22 119/53 Mechanical Ventilator 100 07/23/20 02:00 55 22 119/53 (75) 94 07/23/20 01:30 55 22 121/56 (77) 95 07/23/20 01:00 22 121/57 Mechanical Ventilator 100 07/23/20 01:00 22 121/57 Mechanical Ventilator 100 07/23/20 01:00 58 22 121/57 (78) 94 07/23/20 00:34 Mechanical Ventilator Mechanical Ventilator 07/23/20 00:30 57 22 118/55 (76) 93 07/23/20 00:00 68 07/23/20 00:00 22 123/56 Mechanical Ventilator 100 07/23/20 00:00 22 123/56 Mechanical Ventilator 100 07/23/20 00:00 99.3 60 22 123/56 (78) 93 07/22/20 23:30 65 22 131/65 (87) 92 07/22/20 23:21 22 116/56 Mechanical Ventilator 100 07/22/20 23:00 65 22 120/60 (80) 91 07/22/20 23:00 22 102/60 Mechanical Ventilator 100 07/22/20 23:00 22 120/60 Mechanical Ventilator 100 07/22/20 22:52 73 22 100 07/22/20 22:45 73 22 125/61 (82) 91 07/22/20 22:45 22 125/61 Mechanical Ventilator 100 07/22/20 22:45 22 125/61 Mechanical Ventilator 100 07/22/20 22:30 97 23 130/72 (91) 91 07/22/20 22:30 23 130/72 Mechanical Ventilator 100 07/22/20 22:30 23 130/72 Mechanical Ventilator 100 07/22/20 22:00 24 133/67 Mechanical Ventilator 100 07/22/20 22:00 24 133/37 Mechanical Ventilator 100 07/22/20 22:00 90 24 133/67 (89) 93 07/22/20 21:30 63 22 120/62 (81) 94 07/22/20 21:00 60 22 113/59 (77) 95 07/22/20 21:00 22 113/59 Mechanical Ventilator 100 07/22/20 21:00 22 131/59 Mechanical Ventilator 100 07/22/20 20:45 22 117/58 Mechanical Ventilator 100 07/22/20 20:45 22 117/58 Mechanical Ventilator 100 07/22/20 20:45 62 22 117/58 (77) 95 07/22/20 20:30 62 22 123/62 (82) 96 07/22/20 20:30 22 123/62 Mechanical Ventilator 100 07/22/20 20:30 22 132/62 Mechanical Ventilator 100 07/22/20 20:00 98.9 60 22 119/55 (76) 96 07/22/20 20:00 89 07/22/20 20:00 22 119/55 Mechanical Ventilator 100 07/22/20 20:00 22 119/55 Mechanical Ventilator 100 07/22/20 20:00 Mechanical Ventilator Mechanical Ventilator 07/22/20 20:00 100 07/22/20 19:45 70 22 114/62 (79) 95 07/22/20 19:38 68 25 100 07/22/20 19:30 84 22 130/57 (81) 97 07/22/20 19:00 69 22 148/75 (99) 98 07/22/20 19:00 22 133/72 Mechanical Ventilator 100 07/22/20 19:00 22 133/72 Mechanical Ventilator 100 07/22/20 18:34 22 119/61 Mechanical Ventilator 15.0 100 07/22/20 18:00 55 22 119/63 (81) 98 07/22/20 18:00 22 119/61 Mechanical Ventilator 100 07/22/20 18:00 22 119/61 Mechanical Ventilator 100 07/22/20 17:30 56 30 116/61 (79) 98 07/22/20 17:00 99.0 59 20 119/58 (78) 97 07/22/20 17:00 26 116/61 Mechanical Ventilator 100 07/22/20 17:00 26 116/61 Mechanical Ventilator 100 07/22/20 16:30 67 22 121/60 (80) 98 07/22/20 16:00 82 22 126/62 (83) 98 07/22/20 16:00 61 07/22/20 16:00 22 126/62 Mechanical Ventilator 100 07/22/20 16:00 22 126/62 Mechanical Ventilator 100 07/22/20 16:00 100 07/22/20 16:00 Mechanical Ventilator Mechanical Ventilator 07/22/20 15:30 62 22 130/61 (84) 98 07/22/20 15:22 70 28 100 07/22/20 15:00 26 125/61 Mechanical Ventilator 100 07/22/20 15:00 26 125/61 Mechanical Ventilator 100 07/22/20 15:00 66 25 125/61 (82) 97 07/22/20 14:30 82 19 136/68 (90) 97 07/22/20 14:20 22 137/93 Mechanical Ventilator 15.0 100 07/22/20 14:00 65 22 136/66 (89) 97 07/22/20 14:00 23 137/60 Mechanical Ventilator 100 07/22/20 14:00 23 137/60 Mechanical Ventilator 100 07/22/20 13:30 68 20 143/58 (86) 97 07/22/20 13:00 20 136/66 Mechanical Ventilator 100 07/22/20 13:00 20 136/66 Mechanical Ventilator 100 07/22/20 13:00 65 22 126/62 (83) 96 07/22/20 12:30 65 21 125/60 (81) 96 07/22/20 12:00 73 07/22/20 12:00 99.9 67 21 133/74 (93) 96 07/22/20 12:00 22 137/93 Mechanical Ventilator 100 07/22/20 12:00 22 137/93 Mechanical Ventilator 100 07/22/20 12:00 100 07/22/20 12:00 Mechanical Ventilator Mechanical Ventilator 07/22/20 11:30 80 22 129/74 (92) 94 07/22/20 11:24 74 22 100 07/22/20 11:00 76 20 138/74 (95) 94 07/22/20 11:00 21 133/69 Mechanical Ventilator 100 07/22/20 11:00 21 133/69 Mechanical Ventilator 100 07/22/20 10:30 76 21 131/68 (89) 95 07/22/20 10:00 21 131/64 Mechanical Ventilator 100 07/22/20 10:00 21 131/64 Mechanical Ventilator 100 07/22/20 10:00 92 23 125/73 (90) 92 07/22/20 09:43 22 126/62 Mechanical Ventilator 15.0 100 07/22/20 09:42 22 126/62 Mechanical Ventilator 15.0 100 07/22/20 09:30 75 24 141/72 (95) 97 07/22/20 09:15 22 137/72 Mechanical Ventilator 100 07/22/20 09:15 22 137/72 Mechanical Ventilator 100 07/22/20 09:00 75 24 122/67 (85) 96 07/22/20 08:30 82 22 145/69 (94) 97 07/22/20 08:15 22 126/62 Mechanical Ventilator 100 07/22/20 08:15 22 126/62 Mechanical Ventilator 100 07/22/20 08:00 99.4 88 22 142/74 (96) 97 07/22/20 08:00 87 07/22/20 08:00 100 07/22/20 08:00 Mechanical Ventilator Mechanical Ventilator 07/22/20 07:28 65 24 100 07/22/20 07:15 72 19 142/74 (96) 97 07/22/20 07:15 19 142/74 Mechanical Ventilator 100 07/22/20 07:15 19 142/74 Mechanical Ventilator 100 07/22/20 07:00 66 20 128/65 (86) 96 07/22/20 06:30 68 20 125/67 (86) 96 07/22/20 06:15 69 21 130/64 (86) 96 07/22/20 06:15 21 130/64 Mechanical Ventilator 100 07/22/20 06:15 21 130/64 Mechanical Ventilator 100 07/22/20 06:00 79 25 131/66 (87) 96 07/22/20 05:30 79 22 139/66 (90) 95 07/22/20 05:15 74 19 133/76 (95) 96 07/22/20 05:15 19 133/76 Mechanical Ventilator 100 07/22/20 05:15 19 133/76 Mechanical Ventilator 100 07/22/20 05:07 22 122/67 Mechanical Ventilator 100 07/22/20 05:00 79 21 122/67 (85) 95 07/22/20 04:45 90 24 127/56 (79) 93 07/22/20 04:30 60 16 121/69 (86) 95 07/22/20 04:15 60 21 145/67 (93) 95 07/22/20 04:15 21 145/67 Mechanical Ventilator 100 07/22/20 04:15 21 145/67 Mechanical Ventilator 100 07/22/20 04:00 22 143/61 Mechanical Ventilator 100 07/22/20 04:00 22 143/61 Mechanical Ventilator 100 07/22/20 04:00 100 07/22/20 04:00 61 07/22/20 04:00 Mechanical Ventilator Mechanical Ventilator 07/22/20 04:00 98.9 61 22 143/61 (88) 95 07/22/20 03:45 62 22 139/56 (83) 95 07/22/20 03:30 62 22 132/62 (85) 95 07/22/20 03:07 55 24 100 07/22/20 03:00 54 21 136/58 (84) 95 07/22/20 02:45 52 21 133/57 (82) 95 07/22/20 02:45 21 133/57 Mechanical Ventilator 07/22/20 02:45 21 133/27 Mechanical Ventilator 07/22/20 02:30 53 21 133/57 (82) 95 HEENT: Orally intubated, Mechanically Ventilated, Thin secretions ET Tube RHYTHM: SB LUNGS: bilateral rhonchi CARDIAC: regular rhythm, normal S1 and S2, bradycardia ABDOMEN: normal bowel sounds, non tender, soft EXTREMITIES: normal range of motion, non-tender Laboratory Tests Test 07/22/20 04:20 07/22/20 05:58 White Blood Count 15.4 K/UL (4.8-10.8) H Red Blood Count 4.66 M/UL (4.70-6.10) L Hemoglobin 14.3 G/DL (14.2-18.0) Hematocrit 42.7 % (42.0-52.0) Mean Corpuscular Volume 92 FL (80-99) Mean Corpuscular Hemoglobin 30.7 PG (27.0-31.0) Mean Corpuscular Hemoglobin Concent 33.5 G/DL (32.0-36.0) Red Cell Distribution Width 12.2 % (11.6-14.8) Platelet Count 427 K/UL (150-450) Mean Platelet Volume 6.8 FL (6.5-10.1) Neutrophils (%) (Auto) % (45.0-75.0) Lymphocytes (%) (Auto) % (20.0-45.0) Monocytes (%) (Auto) % (1.0-10.0) Eosinophils (%) (Auto) % (0.0-3.0) Basophils (%) (Auto) % (0.0-2.0) Differential Total Cells Counted 100 Neutrophils % (Manual) 90 % (45-75) H Lymphocytes % (Manual) 4 % (20-45) L Monocytes % (Manual) 6 % (1-10) Eosinophils % (Manual) 0 % (0-3) Basophils % (Manual) 0 % (0-2) Band Neutrophils 0 % (0-8) Platelet Estimate Adequate Platelet Morphology Normal Red Blood Cell Morphology Normal Sodium Level 135 MMOL/L (136-145) L Potassium Level 4.2 MMOL/L (3.5-5.1) Chloride Level 102 MMOL/L (98-107) Carbon Dioxide Level 28 MMOL/L (21-32) Anion Gap 5 mmol/L (5-15) Blood Urea Nitrogen 18 mg/dL (7-18) Creatinine 0.7 MG/DL (0.55-1.30) Estimat Glomerular Filtration Rate > 60 mL/min (>60) Glucose Level 335 MG/DL (74-106) H Calcium Level 8.3 MG/DL (8.5-10.1) L POC Whole Blood Glucose 337 MG/DL (74-106) H Assessment/Plan Assessment/Plan Covid 19 PNA Acute respiratory failure with Hypoxia Sinus bradycardia 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 Continuous cardiac monitoring Anticoagulation and steroid rx Titrate oxygen as able; prone. Anti-viral rx Protein suppl Insulin cov'g by SS; levemir dose advanced further. Stress test once Covid-free to check chronotropic competence. Chuck Swain MD Jul 23, 2020 02:30
[2020-07-23] MEDS: fentaNYL 2500mcg/NS 250ml 250 ML IV SCH ×2 (03:00→20:05)
[2020-07-23] MEDS: propofoL 1,000mg/100ml 100 ML IV SCH ×5 (04:20→22:54)
--- NOTE | 2020-07-23 04:30 | NUR ---
NURSE NOTES: Changed to prone position. Pt is agitated and RASS +2. Increase Fentanyl drip @ 180mcg/hr. on running with propofol @ 40mcg/kg/min. on battery charger tester with SR. No fever. Hold OGT feeding at this time d/t prone position. Morning care was done. Cleaned Pt and applied lotion and cream. No open wound noted. Given suction and oral care. Placed fall precaution. Will continue to monitor any change of condition.
[2020-07-23 05:31] LABS: HEMATOCRIT 41.9 % (42.0-52.0); HEMOGLOBIN 14.2 G/DL (14.2-18.0); MEAN CORPUSCULAR VOLUME 91 FL (80-99); PLATELET COUNT 379 K/UL (150-450); RED BLOOD COUNT 4.62 M/UL (4.70-6.10); RED CELL DISTRIBUTION WIDTH 12.4 % (11.6-14.8); WHITE BLOOD COUNT 18.8 K/UL (4.8-10.8)
--- NOTE | 2020-07-23 06:00 | NUR ---
NURSE NOTES: Given suction and oral care. SaO2 93% with current Vent setting. Pt is sedated and RASS score -2 with Fentanyl and propofol drip. On prone position. Will continue to monitor any change of condition.
[2020-07-23] MEDS: NovoLOG Insulin Flexpen SUBQ SCH ×5 (06:03→21:15)
[2020-07-23 06:16] LABS: ANION GAP 4 mmol/L (5-15); BLOOD UREA NITROGEN 14 mg/dL (7-18); CALCIUM 8.2 MG/DL (8.5-10.1); CARBON DIOXIDE 31 MMOL/L (21-32); CHLORIDE 100 MMOL/L (98-107); CREATININE 0.7 MG/DL (0.55-1.30); POTASSIUM 4.2 MMOL/L (3.5-5.1); SODIUM 135 MMOL/L (136-145); TRIGLYCERIDES 209 MG/DL (30-150)
--- NOTE | 2020-07-23 07:20 | NUR ---
NURSE HAND-OFF REPORT: Latest Vital Signs: Temperature 98.9 , Pulse 83 , B/P 149 /72 , Respiratory Rate 20 , O2 SAT 90 , Mechanical Ventilator, O2 Flow Rate . Vital Sign Comment: EKG Rhythm: Sinus Rhythm Rhythm change?: N Latest Bradley Fall Score: 30 Fall Risk: Medium Risk Safety Measures: Call light Within Reach, Bed Alarm Zone 2, Side Rails Side Rails x2, Bed position Low and Locked. Fall Precautions: Yellow Socks Yellow Gown Patient Fall Education Report given to ELIER Martin. Pt is sedated on the bed, on Prone position. On running with Fentanyl @ 180mcg/min, Propofol @ 40mcg/kg/min and D51/2NS @ 50cc/hr. Hold OGT feeding at this time.
--- NOTE | 2020-07-23 08:00 | NUR ---
NURSE NOTES: Pt was assessed after receiving change of shift report from Carola THAPA. Pt is sedated -2 light sedation per RASS score while maintained on Fentanyl drip 180mcg/hr and Propofol drip 40mcg/kg/min, opens eyes to voice, able to follow simple commands. Currently on prone position. Orally intubated, ETT 7.5 at 22cm lipline with vent settings AC22, VT500, Peep 8, FIO2 100%, O2Sat 96-98%. Bilateral rhonchi on auscultation. NSR on monitoring engineer. Temp 99F axillary. OGT present, patent/intact, feeding on hold due to pt being on prone position and with residuals. Biswas catheter is present, draining clear/dark yello urine. Left upper arm double lumen PICC line, and peripheral IV access present on left FA#20G and right FA #22G, all patent/intact. Skin is intact. Bilateral soft wrist restraints are in place to prevent self extubation, vascular/skin integrity remain within normal limits at restraint site. Bed locked/in lowest position, three side rails up. Will continue with plan of care.
[2020-07-23] MEDS: Ascorbic Acid 500mg tab ORAL SCH ×2 (08:09→18:20)
[2020-07-23] MEDS: Vitamin D 1000 units Tab ORAL SCH (08:09)
[2020-07-23] MEDS: Vitamin B Complex Tab ORAL SCH (08:09)
[2020-07-23] MEDS: Solu-MEDROL 40mg Inj IVP SCH ×2 (08:09→21:16)
[2020-07-23] MEDS: Enoxaparin 40mg Inj SUBQ SCH ×2 (08:10→21:16)
[2020-07-23] MEDS: Levemir Flexpen SUBQ SCH ×2 (08:12→18:20)
--- NOTE | 2020-07-23 08:16 | Pulmonolgy Critical Care Note ---
Critical Care - Asmt/Plan Assessment/Plan: Pulmonary CCM Progress Noted Subjective ROS Limited/Unobtainable: Yes Constitutional: Reports: no symptoms Gastrointestinal/Abdominal: Reports: no symptoms Musculoskeletal: Denies: pain Allergies: Coded Allergies: No Known Allergies (Unverified , 03/08/17) All Systems: reviewed and negative except above Not candidate for Remdesivir - increased LFT's Intubated, on ACVC,CXR ETT satisfactory,bilateral infiltrates,PICC in position ABG improved,stableO2 sats Sedated on the ventilator Propofol/Fentenyl gtt Medications noted Objective Vital Signs noted PE deferred due to COVID 19 Laboratory Tests noted Assessment/Plan Assessment/Plan Acute hypoxemic respiratory failure In ICU on ventilator COVID pneumonia Asthma elevated liver enzymes PLAN ACVC ABG PRN monitor imaging PRN monitor ABG PRN decadron/Antivirals/AB per ID respiratory care Nutrition consult ID noted DVT prophylaxis taper FIO2 as able monitor respiratory status for change at risk for intubation impression, plan, and exam edited and reviewed in detail care discussed with quality and reliability engineer - Objective Last 24 Hour Vital Signs Date Time Temp Pulse Resp B/P (MAP) Pulse Ox O2 Delivery O2 Flow Rate FiO2 07/23/20 07:00 83 20 149/72 (97) 90 07/23/20 07:00 20 149/72 Mechanical Ventilator 100 07/23/20 07:00 20 149/72 Mechanical Ventilator 100 07/23/20 06:30 76 18 146/67 (93) 91 07/23/20 06:00 20 142/66 Mechanical Ventilator 100 07/23/20 06:00 20 142/66 Mechanical Ventilator 100 07/23/20 06:00 82 20 142/66 (91) 93 07/23/20 05:30 104 24 140/70 (93) 90 07/23/20 05:00 111 27 137/66 (89) 91 07/23/20 05:00 27 137/66 Mechanical Ventilator 100 07/23/20 05:00 27 137/66 Mechanical Ventilator 100 07/23/20 04:45 22 142/72 Mechanical Ventilator 100 07/23/20 04:45 22 142/72 Mechanical Ventilator 100 07/23/20 04:30 92 23 133/73 (93) 95 07/23/20 04:30 23 133/73 Mechanical Ventilator 100 07/23/20 04:30 23 133/73 Mechanical Ventilator 100 07/23/20 04:20 22 146/67 Mechanical Ventilator 100 07/23/20 04:15 76 22 146/67 (93) 97 07/23/20 04:00 76 07/23/20 04:00 24 136/72 Mechanical Ventilator 100 07/23/20 04:00 59 136/72 Mechanical Ventilator 100 07/23/20 04:00 Mechanical Ventilator Mechanical Ventilator 07/23/20 04:00 100 07/23/20 04:00 98.9 59 24 136/72 (93) 97 07/23/20 03:30 56 23 122/56 (78) 96 07/23/20 03:00 22 118/53 Mechanical Ventilator 100 07/23/20 03:00 22 118/53 Mechanical Ventilator 100 07/23/20 03:00 54 22 120/52 (74) 95 07/23/20 02:30 57 22 120/61 (80) 95 07/23/20 02:00 22 119/53 Mechanical Ventilator 100 07/23/20 02:00 22 119/53 Mechanical Ventilator 100 07/23/20 02:00 55 22 119/53 (75) 94 07/23/20 01:55 73 29 100 07/23/20 01:30 55 22 121/56 (77) 95 07/23/20 01:00 22 121/57 Mechanical Ventilator 100 07/23/20 01:00 22 121/57 Mechanical Ventilator 100 07/23/20 01:00 58 22 121/57 (78) 94 07/23/20 00:34 Mechanical Ventilator Mechanical Ventilator 07/23/20 00:30 57 22 118/55 (76) 93 07/23/20 00:00 68 07/23/20 00:00 100 07/23/20 00:00 22 123/56 Mechanical Ventilator 100 07/23/20 00:00 22 123/56 Mechanical Ventilator 100 07/23/20 00:00 99.3 60 22 123/56 (78) 93 07/22/20 23:30 65 22 131/65 (87) 92 07/22/20 23:21 22 116/56 Mechanical Ventilator 100 07/22/20 23:00 65 22 120/60 (80) 91 07/22/20 23:00 22 102/60 Mechanical Ventilator 100 07/22/20 23:00 22 120/60 Mechanical Ventilator 100 07/22/20 22:52 73 22 100 12/25/20 22:45 73 22 125/61 (82) 91 07/22/20 22:45 22 125/61 Mechanical Ventilator 100 07/22/20 22:45 22 125/61 Mechanical Ventilator 100 07/22/20 22:30 97 23 130/72 (91) 91 07/22/20 22:30 23 130/72 Mechanical Ventilator 100 07/22/20 22:30 23 130/72 Mechanical Ventilator 100 07/22/20 22:00 24 133/67 Mechanical Ventilator 100 07/22/20 22:00 24 133/37 Mechanical Ventilator 100 07/22/20 22:00 90 24 133/67 (89) 93 07/22/20 21:30 63 22 120/62 (81) 94 07/22/20 21:00 60 22 113/59 (77) 95 07/22/20 21:00 22 113/59 Mechanical Ventilator 100 07/22/20 21:00 22 131/59 Mechanical Ventilator 100 07/22/20 20:45 22 117/58 Mechanical Ventilator 100 07/22/20 20:45 22 117/58 Mechanical Ventilator 100 07/22/20 20:45 62 22 117/58 (77) 95 07/22/20 20:30 62 22 123/62 (82) 96 07/22/20 20:30 22 123/62 Mechanical Ventilator 100 07/22/20 20:30 22 132/62 Mechanical Ventilator 100 07/22/20 20:00 98.9 60 22 119/55 (76) 96 07/22/20 20:00 89 07/22/20 20:00 22 119/55 Mechanical Ventilator 100 07/22/20 20:00 22 119/55 Mechanical Ventilator 100 07/22/20 20:00 Mechanical Ventilator Mechanical Ventilator 07/22/20 20:00 100 07/22/20 19:45 70 22 114/62 (79) 95 07/22/20 19:38 68 25 100 07/22/20 19:30 84 22 130/57 (81) 97 07/22/20 19:00 69 22 148/75 (99) 98 07/22/20 19:00 22 133/72 Mechanical Ventilator 100 07/22/20 19:00 22 133/72 Mechanical Ventilator 100 07/22/20 18:34 22 119/61 Mechanical Ventilator 15.0 100 07/22/20 18:00 55 22 119/63 (81) 98 07/22/20 18:00 22 119/61 Mechanical Ventilator 100 07/22/20 18:00 22 119/61 Mechanical Ventilator 100 07/22/20 17:30 56 30 116/61 (79) 98 07/22/20 17:00 99.0 59 20 119/58 (78) 97 07/22/20 17:00 26 116/61 Mechanical Ventilator 100 07/22/20 17:00 26 116/61 Mechanical Ventilator 100 07/22/20 16:30 67 22 121/60 (80) 98 07/22/20 16:00 82 22 126/62 (83) 98 07/22/20 16:00 61 07/22/20 16:00 22 126/62 Mechanical Ventilator 100 07/22/20 16:00 22 126/62 Mechanical Ventilator 100 07/22/20 16:00 100 07/22/20 16:00 Mechanical Ventilator Mechanical Ventilator 07/22/20 15:30 62 22 130/61 (84) 98 07/22/20 15:22 70 28 100 07/22/20 15:00 26 125/61 Mechanical Ventilator 100 07/22/20 15:00 26 125/61 Mechanical Ventilator 100 07/22/20 15:00 66 25 125/61 (82) 97 07/22/20 14:30 82 19 136/68 (90) 97 07/22/20 14:20 22 137/93 Mechanical Ventilator 15.0 100 07/22/20 14:00 65 22 136/66 (89) 97 07/22/20 14:00 23 137/60 Mechanical Ventilator 100 07/22/20 14:00 23 137/60 Mechanical Ventilator 100 07/22/20 13:30 68 20 143/58 (86) 97 07/22/20 13:00 20 136/66 Mechanical Ventilator 100 07/22/20 13:00 20 136/66 Mechanical Ventilator 100 07/22/20 13:00 65 22 126/62 (83) 96 07/22/20 12:30 65 21 125/60 (81) 96 07/22/20 12:00 73 07/22/20 12:00 99.9 67 21 133/74 (93) 96 07/22/20 12:00 22 137/93 Mechanical Ventilator 100 07/22/20 12:00 22 137/93 Mechanical Ventilator 100 07/22/20 12:00 100 07/22/20 12:00 Mechanical Ventilator Mechanical Ventilator 07/22/20 11:30 80 22 129/74 (92) 94 07/22/20 11:24 74 22 100 07/22/20 11:00 76 20 138/74 (95) 94 07/22/20 11:00 21 133/69 Mechanical Ventilator 100 07/22/20 11:00 21 133/69 Mechanical Ventilator 100 07/22/20 10:30 76 21 131/68 (89) 95 07/22/20 10:00 21 131/64 Mechanical Ventilator 100 07/22/20 10:00 21 131/64 Mechanical Ventilator 100 07/22/20 10:00 92 23 125/73 (90) 92 07/22/20 09:43 22 126/62 Mechanical Ventilator 15.0 100 07/22/20 09:42 22 126/62 Mechanical Ventilator 15.0 100 07/22/20 09:30 75 24 141/72 (95) 97 07/22/20 09:15 22 137/72 Mechanical Ventilator 100 07/22/20 09:15 22 137/72 Mechanical Ventilator 100 07/22/20 09:00 75 24 122/67 (85) 96 07/22/20 08:30 82 22 145/69 (94) 97 Micro: Microbiology Date/Time Source Procedure Growth Status 07/21/20 15:30 Sputum Gram Stain - Final Resulted 07/21/20 15:30 Sputum Culture - Preliminary Gram Negative Tobi Resulted Accucheck: 315 Critical Care - Subjective ROS Limited/Unobtainable: Yes Condition: critical FI02: 100 Vent Support Breath Rate: 22 Vent Support Mode: AC Vent Tidal Volume: 500 Sputum Amount: None PEEP: 8.0 PIP: 39 Tube Feeding Amount: 15 I&O: Intake and Output 07/22/20 07/23/20 19:00 07:00 Intake Total 1269.235 ml 1119.410 ml Output Total 545 ml 800 ml Balance 724.235 ml 319.410 ml IV Total 1194.235 ml 984.410 ml Tube Feeding 75 ml 135 ml Output Urine Total 545 ml 800 ml ET-Tube: 7.5 ET Position: 22 Chuck Ortega MD Jul 23, 2020 08:16
--- NOTE | 2020-07-23 08:39 | NUR ---
NURSE NOTES: New Propofol vial was removed from the pyxis to replace the current empty vial. IV tubing was changed and replaced with new tubing, old tubing had 23ml, which was wasted. Continuing same rate since pt remains at -2 light sedation per RASS score.
--- NOTE | 2020-07-23 09:02 | Infectious Diseases Prog Note ---
Assessment/Plan Assessment/Plan A: 1. COVID-19 pneumonia. 2. History of asthma. 3. Elevated liver function tests. 4. Fatty liver 5. DM with hyperglycemia 6. Leukocytosis worsening 7. Hypoxic respiratory failure 8. Gram negative pneumonia PLAN: 1. Continue Methylprednisone 2. Continue isolation. 3. Change Rocephin to Zosyn 4. will f/u Sputum culture Subjective ROS Limited/Unobtainable: Yes Constitutional: Denies: fever Allergies: Coded Allergies: No Known Allergies (Unverified , 03/08/17) Objective Last 24 Hour Vital Signs Date Time Temp Pulse Resp B/P (MAP) Pulse Ox O2 Delivery O2 Flow Rate FiO2 07/23/20 08:39 13 159/72 Mechanical Ventilator 15.0 100 07/23/20 08:00 13 179/72 Mechanical Ventilator 100 07/23/20 08:00 13 159/72 Mechanical Ventilator 100 07/23/20 07:00 83 20 149/72 (97) 90 07/23/20 07:00 20 149/72 Mechanical Ventilator 100 07/23/20 07:00 20 149/72 Mechanical Ventilator 100 07/23/20 06:30 76 18 146/67 (93) 91 07/23/20 06:00 20 142/66 Mechanical Ventilator 100 07/23/20 06:00 20 142/66 Mechanical Ventilator 100 07/23/20 06:00 82 20 142/66 (91) 93 07/23/20 05:30 104 24 140/70 (93) 90 07/23/20 05:00 111 27 137/66 (89) 91 07/23/20 05:00 27 137/66 Mechanical Ventilator 100 07/23/20 05:00 27 137/66 Mechanical Ventilator 100 07/23/20 04:45 22 142/72 Mechanical Ventilator 100 07/23/20 04:45 22 142/72 Mechanical Ventilator 100 07/23/20 04:30 92 23 133/73 (93) 95 07/23/20 04:30 23 133/73 Mechanical Ventilator 100 07/23/20 04:30 23 133/73 Mechanical Ventilator 100 07/23/20 04:20 22 146/67 Mechanical Ventilator 100 07/23/20 04:15 76 22 146/67 (93) 97 07/23/20 04:00 76 07/23/20 04:00 24 136/72 Mechanical Ventilator 100 07/23/20 04:00 59 136/72 Mechanical Ventilator 100 07/23/20 04:00 Mechanical Ventilator Mechanical Ventilator 07/23/20 04:00 100 07/23/20 04:00 98.9 59 24 136/72 (93) 97 07/23/20 03:30 56 23 122/56 (78) 96 07/23/20 03:00 22 118/53 Mechanical Ventilator 100 07/23/20 03:00 22 118/53 Mechanical Ventilator 100 07/23/20 03:00 54 22 120/52 (74) 95 07/23/20 02:30 57 22 120/61 (80) 95 07/23/20 02:00 22 119/53 Mechanical Ventilator 100 07/23/20 02:00 22 119/53 Mechanical Ventilator 100 07/23/20 02:00 55 22 119/53 (75) 94 07/23/20 01:55 73 29 100 07/23/20 01:30 55 22 121/56 (77) 95 07/23/20 01:00 22 121/57 Mechanical Ventilator 100 07/23/20 01:00 22 121/57 Mechanical Ventilator 100 07/23/20 01:00 58 22 121/57 (78) 94 07/23/20 00:34 Mechanical Ventilator Mechanical Ventilator 07/23/20 00:30 57 22 118/55 (76) 93 07/23/20 00:00 68 07/23/20 00:00 100 07/23/20 00:00 22 123/56 Mechanical Ventilator 100 07/23/20 00:00 22 123/56 Mechanical Ventilator 100 07/23/20 00:00 99.3 60 22 123/56 (78) 93 07/22/20 23:30 65 22 131/65 (87) 92 07/22/20 23:21 22 116/56 Mechanical Ventilator 100 07/22/20 23:00 65 22 120/60 (80) 91 07/22/20 23:00 22 102/60 Mechanical Ventilator 100 07/22/20 23:00 22 120/60 Mechanical Ventilator 100 07/22/20 22:52 73 22 100 07/22/20 22:45 73 22 125/61 (82) 91 07/22/20 22:45 22 125/61 Mechanical Ventilator 100 07/22/20 22:45 22 125/61 Mechanical Ventilator 100 07/22/20 22:30 97 23 130/72 (91) 91 07/22/20 22:30 23 130/72 Mechanical Ventilator 100 07/22/20 22:30 23 130/72 Mechanical Ventilator 100 07/22/20 22:00 24 133/67 Mechanical Ventilator 100 07/22/20 22:00 24 133/37 Mechanical Ventilator 100 07/22/20 22:00 90 24 133/67 (89) 93 07/22/20 21:30 63 22 120/62 (81) 94 07/22/20 21:00 60 22 113/59 (77) 95 07/22/20 21:00 22 113/59 Mechanical Ventilator 100 07/22/20 21:00 22 131/59 Mechanical Ventilator 100 07/22/20 20:45 22 117/58 Mechanical Ventilator 100 07/22/20 20:45 22 117/58 Mechanical Ventilator 100 07/22/20 20:45 62 22 117/58 (77) 95 07/22/20 20:30 62 22 123/62 (82) 96 07/22/20 20:30 22 123/62 Mechanical Ventilator 100 07/22/20 20:30 22 132/62 Mechanical Ventilator 100 07/22/20 20:00 98.9 60 22 119/55 (76) 96 07/22/20 20:00 89 07/22/20 20:00 22 119/55 Mechanical Ventilator 100 07/22/20 20:00 22 119/55 Mechanical Ventilator 100 07/22/20 20:00 Mechanical Ventilator Mechanical Ventilator 07/22/20 20:00 100 07/22/20 19:45 70 22 114/62 (79) 95 07/22/20 19:38 68 25 100 07/22/20 19:30 84 22 130/57 (81) 97 07/22/20 19:00 69 22 148/75 (99) 98 07/22/20 19:00 22 133/72 Mechanical Ventilator 100 07/22/20 19:00 22 133/72 Mechanical Ventilator 100 07/22/20 18:34 22 119/61 Mechanical Ventilator 15.0 100 07/22/20 18:00 55 22 119/63 (81) 98 07/22/20 18:00 22 119/61 Mechanical Ventilator 100 07/22/20 18:00 22 119/61 Mechanical Ventilator 100 07/22/20 17:30 56 30 116/61 (79) 98 07/22/20 17:00 99.0 59 20 119/58 (78) 97 07/22/20 17:00 26 116/61 Mechanical Ventilator 100 07/22/20 17:00 26 116/61 Mechanical Ventilator 100 07/22/20 16:30 67 22 121/60 (80) 98 07/22/20 16:00 82 22 126/62 (83) 98 07/22/20 16:00 61 07/22/20 16:00 22 126/62 Mechanical Ventilator 100 07/22/20 16:00 22 126/62 Mechanical Ventilator 100 07/22/20 16:00 100 07/22/20 16:00 Mechanical Ventilator Mechanical Ventilator 07/22/20 15:30 62 22 130/61 (84) 98 07/22/20 15:22 70 28 100 07/22/20 15:00 26 125/61 Mechanical Ventilator 100 07/22/20 15:00 26 125/61 Mechanical Ventilator 100 07/22/20 15:00 66 25 125/61 (82) 97 07/22/20 14:30 82 19 136/68 (90) 97 07/22/20 14:20 22 137/93 Mechanical Ventilator 15.0 100 07/22/20 14:00 65 22 136/66 (89) 97 07/22/20 14:00 23 137/60 Mechanical Ventilator 100 07/22/20 14:00 23 137/60 Mechanical Ventilator 100 07/22/20 13:30 68 20 143/58 (86) 97 07/22/20 13:00 20 136/66 Mechanical Ventilator 100 07/22/20 13:00 20 136/66 Mechanical Ventilator 100 07/22/20 13:00 65 22 126/62 (83) 96 07/22/20 12:30 65 21 125/60 (81) 96 07/22/20 12:00 73 07/22/20 12:00 99.9 67 21 133/74 (93) 96 07/22/20 12:00 22 137/93 Mechanical Ventilator 100 07/22/20 12:00 22 137/93 Mechanical Ventilator 100 07/22/20 12:00 100 07/22/20 12:00 Mechanical Ventilator Mechanical Ventilator 07/22/20 11:30 80 22 129/74 (92) 94 07/22/20 11:24 74 22 100 07/22/20 11:00 76 20 138/74 (95) 94 07/22/20 11:00 21 133/69 Mechanical Ventilator 100 07/22/20 11:00 21 133/69 Mechanical Ventilator 100 07/22/20 10:30 76 21 131/68 (89) 95 07/22/20 10:00 21 131/64 Mechanical Ventilator 100 07/22/20 10:00 21 131/64 Mechanical Ventilator 100 07/22/20 10:00 92 23 125/73 (90) 92 07/22/20 09:43 22 126/62 Mechanical Ventilator 15.0 100 07/22/20 09:42 22 126/62 Mechanical Ventilator 15.0 100 07/22/20 09:30 75 24 141/72 (95) 97 07/22/20 09:15 22 137/72 Mechanical Ventilator 100 07/22/20 09:15 22 137/72 Mechanical Ventilator 100 07/22/20 09:00 75 24 122/67 (85) 96 Height (Feet): 5 Height (Inches): 6.00 Weight (Pounds): 209 HEENT: other - orally intubated Respiratory/Chest: other - on ventilator, on prone position Cardiovascular: normal rate Abdomen: soft, non tender Extremities: no edema Neurologic/Psychiatric: other - sedated Microbiology Date/Time Source Procedure Growth Status 07/21/20 15:30 Sputum Gram Stain - Final Resulted 07/21/20 15:30 Sputum Culture - Preliminary Gram Negative Tobi Resulted Laboratory Tests Test 07/23/20 04:10 White Blood Count 18.8 K/UL (4.8-10.8) H Red Blood Count 4.62 M/UL (4.70-6.10) L Hemoglobin 14.2 G/DL (14.2-18.0) Hematocrit 41.9 % (42.0-52.0) L Mean Corpuscular Volume 91 FL (80-99) Mean Corpuscular Hemoglobin 30.6 PG (27.0-31.0) Mean Corpuscular Hemoglobin Concent 33.8 G/DL (32.0-36.0) Red Cell Distribution Width 12.4 % (11.6-14.8) Platelet Count 379 K/UL (150-450) Mean Platelet Volume 7.1 FL (6.5-10.1) Neutrophils (%) (Auto) % (45.0-75.0) Lymphocytes (%) (Auto) % (20.0-45.0) Monocytes (%) (Auto) % (1.0-10.0) Eosinophils (%) (Auto) % (0.0-3.0) Basophils (%) (Auto) % (0.0-2.0) Differential Total Cells Counted 100 Neutrophils % (Manual) 88 % (45-75) H Lymphocytes % (Manual) 5 % (20-45) L Monocytes % (Manual) 7 % (1-10) Eosinophils % (Manual) 0 % (0-3) Basophils % (Manual) 0 % (0-2) Band Neutrophils 0 % (0-8) Platelet Estimate Adequate Platelet Morphology Normal Red Blood Cell Morphology Normal Sodium Level 135 MMOL/L (136-145) L Potassium Level 4.2 MMOL/L (3.5-5.1) Chloride Level 100 MMOL/L (98-107) Carbon Dioxide Level 31 MMOL/L (21-32) Anion Gap 4 mmol/L (5-15) L Blood Urea Nitrogen 14 mg/dL (7-18) Creatinine 0.7 MG/DL (0.55-1.30) Estimat Glomerular Filtration Rate > 60 mL/min (>60) Glucose Level 300 MG/DL (74-106) H Calcium Level 8.2 MG/DL (8.5-10.1) L Triglycerides Level 209 MG/DL (30-150) H Current Medications Medications (Trade) Dose Ordered Sig/Milagro Route PRN Reason Start Time Stop Time Status Last Admin Dose Admin Acetaminophen (Tylenol) 500 mg Q4H PRN ORAL Mild Pain (Pain Scale 1-3) 07/09/20 21:45 08/08/20 21:44 07/21/20 17:23 Albuterol/ Ipratropium (Combivent Respimat) 2 puff Q2H PRN INH Shortness of Breath 07/09/20 21:45 08/08/20 21:44 07/19/20 09:17 Ascorbic Acid (Vitamin C) 500 mg TWICE A DAY ORAL 07/11/20 09:00 08/10/20 08:59 07/23/20 08:09 Ceftriaxone Sodium 1 gm/ Dextrose 55 ml @ 110 mls/hr Q24H IVPB 07/21/20 14:45 07/28/20 14:44 07/22/20 15:09 Chlorhexidine Gluconate (Marycarmen-Hex 2%) 1 applic DAILY@2000 TOPIC 07/20/20 20:00 10/18/20 19:59 07/22/20 19:44 Dextrose (Dextrose 50%) 25 ml Q30M PRN IV Hypoglycemia 07/15/20 00:00 10/13/20 00:00 Dextrose (Dextrose 50%) 50 ml Q30M PRN IV Hypoglycemia 07/15/20 00:00 10/13/20 00:00 Dextrose/Sodium Chloride 1,000 ml @ 50 mls/hr Q20H IV 07/20/20 12:45 08/19/20 12:44 07/23/20 00:13 Enoxaparin Sodium (Lovenox) 40 mg Q12HR SUBQ 07/18/20 21:00 10/16/20 20:59 07/23/20 08:10 Fentanyl Citrate 250 ml @ 1 mls/hr Q24H IV 07/20/20 12:45 07/24/20 12:44 07/23/20 03:00 Insulin Aspart (NovoLOG) Q6HR SUBQ 07/20/20 18:00 10/13/20 06:29 07/23/20 06:03 Insulin Detemir (Levemir) 20 units BID SUBQ 07/22/20 09:00 10/20/20 08:59 07/23/20 08:12 Methylprednisolone Sodium Succinate (Solu-MEDROL) 40 mg Q12HR IVP 07/13/20 21:00 07/23/20 21:30 07/23/20 08:09 Ondansetron HCl (Zofran) 4 mg Q6H PRN IVP Nausea & Vomiting 07/09/20 21:45 08/08/20 21:44 Pantoprazole (Protonix) 40 mg DAILY ORAL 07/10/20 09:00 08/09/20 08:59 07/23/20 08:09 Promethazine HCl/ Codeine (Phenergan with Codeine) 5 ml Q4H PRN ORAL For Cough 07/11/20 15:15 08/10/20 15:14 07/17/20 22:22 Propofol 100 ml @ 0 mls/hr Q12H IV 07/20/20 12:45 07/24/20 12:44 07/23/20 08:39 Vitamin B Complex (Vitamin B Complex) 1 tab DAILY ORAL 07/11/20 09:00 10/09/20 08:59 07/23/20 08:09 Vitamin D (Vitamin D) 1,000 unit DAILY ORAL 07/14/20 09:30 08/13/20 09:29 07/23/20 08:09 Mian Wing MD Jul 23, 2020 09:02
[2020-07-23] MEDS: Piperacillin/Tazobactam 3.375 GM in NS 110 ML IVPB SCH ×2 (10:20→21:55)
--- NOTE | 2020-07-23 11:00 | NUR ---
NURSE NOTES: Pt was repositioned from prone to supine position, due to being unable to tolerate further duration of proning, even while on sedation. Continues to have large amount of thick/white secretions. Pt was suctioned, oral care provided. Bed/bath given, gown/bed linens were changed.
--- NOTE | 2020-07-23 12:30 | NUR ---
NURSE NOTES: New Propofol vial was removed from the pyxis to replace current empty vial. Temp remains 99F, however extremities are cool to touch.
--- NOTE | 2020-07-23 13:00 | NUR ---
NURSE NOTES: Starting to titrate Fentanyl drip down every 15minutes per protocol to reach -2 light sedation, currently maintaining Propofol drip at same rate.
--- NOTE | 2020-07-23 13:00 | NUR ---
NURSE NOTES: Spoke with Dr. Ortega on the phone and updated MD on pt's current status. MD notified regarding elevated blood glucose levels via Accucheck. Rx for Insulin Sliding Scale was changed to high resistance scale and frequency increased to Q4hrs per Dr. Ortega's order. Rx for Levemir has also been increased to 26units BID per MD order. Order also received to administer one-time additional dose of Levemir 6units. IV fluid D5 0.45NS is also being discontinued. Per MD, diet for OGT feeding to follow per nutrition recommendation, which currently is Vital AF 1.2 at goal of 30ml/hour while pt remains on Propofol drip. Per MD, will repeat Triglycerides level tomorrow AM, including lipase and CBC/BMP.
[2020-07-23] MEDS ORDERED: Levemir Flexpen SUBQ ONE (14:00)
--- NOTE | 2020-07-23 14:00 | NUR ---
NURSE NOTES: Pt's brother contacted the nurse's station for update on current condition. Family aware of critical/intubated status.
--- NOTE | 2020-07-23 16:00 | NUR ---
NURSE NOTES: Dr. Ortega is at the nurse's station. MD notified regarding pt only being able to tolerate proning from 0400 to 1100 this morning, despite being on sedation. Per MD, "attempt to prone pt for at least 4hours daily, if pt is able to tolerate it".
--- NOTE | 2020-07-23 18:00 | NUR ---
NURSE NOTES: Propofol and Fentanyl drips are both being titrated down to reach/maintain -2 light sedation per RASS score.
--- NOTE | 2020-07-23 18:30 | NUR ---
NURSE NOTES: Pt is currently -2 light sedation on RASS score with current drip rates, Fentanyl titrated down to 80mcg/hr and Propofol 30mcg/kg/min. Pt opens eyes to voice and nods head to yes/no questions. From moment to moment glances at TV and closes eyes. Denies any pain or discomfort when asked. Pt was repositioned for comfort with bilateral extremities elevated on pillows.
--- NOTE | 2020-07-23 19:15 | NUR ---
NURSE HAND-OFF REPORT: Latest Vital Signs: Temperature 99F axillary, Pulse 76 , B/P 146 /47 , Respiratory Rate 22 , O2 SAT 97 , Mechanical Ventilator, ETT 7.5 at 22cm/lipline with vent settings, AC22, VT500, Peep 8, FIO2 100%, O2Sat 98-100%. Vital Sign Comment: Pt is maintained -2 light sedation while on Fentanyl drip at 80mcg/hr and Propofol drip at 30mcg/kg/min. EKG Rhythm: Sinus Rhythm Rhythm change?: N Notified?: Ildefonso Cherry MD Response: Latest Bradley Fall Score: 30 Fall Risk: Medium Risk Safety Measures: Call light Within Reach, Bed Alarm Zone 2, Side Rails Side Rails x2, Bed position Low and Locked. Fall Precautions: Yellow Socks Yellow Gown Patient Fall Education Report given to Carola THAPA. Endorsed plan of care.
--- NOTE | 2020-07-23 19:30 | NUR ---
NURSE NOTES: Received report from ELIER Martin. Pt is sedated on the bed and RASS -2. Able to open the eye spontaneously. On outpatient phlebotomist with SR. Pt has ETT and orally intubated. Vent dependent and setting with AC: 22, T: 500, P:8, FiO2 100% and SaO2 97% noted. Given suction and oral care. Pt has OGT and on running with Vital AF @ 30cc/hr. Checked BT: 98.9F. Keep HOB. Pt has Biswas cath and patent and drainage well. Pt has PICC line and dressing is clean and dry. No sign of pain by FLACC scale. On running with propofol @ 30mcg/kg/min and Fentanyl @ 80mcg/hr. Pt has bilateral soft restraint. checked comfort and circulation. Placed fall precaution. On proper isolation for COVID-19. Will continue to care plan.
[2020-07-23] MEDS: Dyna-Hex 2% Top Sol 2oz TOPIC SCH (19:41)
--- NOTE | 2020-07-23 22:00 | NUR ---
NURSE NOTES: Pt is sedated on the bed. Suction and oral care was done. changed position. SaO2 96-97% with current Vent setting. Will continue to monitor any change of condition.
[2020-07-24] VITALS (67 sets, daily range): BP systolic 99–165; BP diastolic 40–85
--- NOTE | 2020-07-24 | NUR ---
NURSE NOTES: Bed bath given tolerated well.
--- NOTE | 2020-07-24 | NUR ---
NURSE NOTES: Pt is sedated on the bed and RASS -2. SaO2 97-98% with current Vent setting. Given suction and oral care. On running with Fentanyl drip @ 80mcg/hr and propofol @ 30mcg/kg/min. Still noted residual from OGT 50cc and decrease OGT feeding @ 20cc/hr. BT: 99.0F. Keep cooing measure. Changed position. Will continue to monitor any change of condition.
[2020-07-24] MEDS: NovoLOG Insulin Flexpen SUBQ SCH ×6 (00:55→21:51)
--- NOTE | 2020-07-24 02:00 | NUR ---
NURSE NOTES: Still noted residual 50cc from OGT. On running with OGT feeding with Vital AF @ 20cc/hr. SaO2 99% with Vent. Given suction. Repositioned Pt. Will continue to monitor.
--- NOTE | 2020-07-24 03:41 | Cardiology Progress Note ---
Subjective DATE OF SERVICE: Jul 23, 2020 Condition remains critical Sputum now also positive for K.pneumonia. He remains on full vent support, on 100% FIO2 - orally intubated. Still with episodes of asymptomatic sinus bradycardia; but now in 47-81 range predominantly. No LOC or syncope. ABG (07/20) 7.46/34/47 (100% FIO2) Objective Last 24 Hour Vital Signs Date Time Temp Pulse Resp B/P (MAP) Pulse Ox O2 Delivery O2 Flow Rate FiO2 07/24/20 01:00 80 26 162/48 (86) 99 07/24/20 00:55 71 26 100 07/24/20 00:30 73 22 148/64 (92) 98 07/24/20 00:00 83 07/24/20 00:00 100 07/24/20 00:00 Mechanical Ventilator Mechanical Ventilator 07/23/20 23:00 81 23 152/55 (87) 96 07/23/20 22:54 23 146/63 Mechanical Ventilator 100 07/23/20 22:30 80 24 146/63 (90) 97 07/23/20 22:00 77 24 137/54 (81) 98 07/23/20 21:30 78 22 149/52 (84) 99 07/23/20 21:00 72 22 135/56 (82) 98 07/23/20 20:40 77 23 100 07/23/20 20:30 93 25 146/57 (86) 98 07/23/20 20:05 22 146/47 Mechanical Ventilator 100 07/23/20 20:00 78 07/23/20 20:00 99.2 70 23 146/47 (80) 99 07/23/20 20:00 100 07/23/20 20:00 Mechanical Ventilator Mechanical Ventilator 07/23/20 19:30 69 23 144/54 (84) 98 07/23/20 19:00 22 137/49 Mechanical Ventilator 100 07/23/20 19:00 22 137/49 Mechanical Ventilator 100 07/23/20 19:00 76 23 135/52 (79) 97 07/23/20 18:45 22 141/50 Mechanical Ventilator 100 07/23/20 18:45 22 141/50 Mechanical Ventilator 100 07/23/20 18:30 23 141/50 Mechanical Ventilator 100 07/23/20 18:30 23 141/50 Mechanical Ventilator 100 07/23/20 18:30 72 22 141/50 (80) 98 07/23/20 18:15 23 136/54 Mechanical Ventilator 100 07/23/20 18:15 23 136/54 Mechanical Ventilator 100 07/23/20 18:00 89 21 149/57 (87) 99 07/23/20 18:00 23 149/57 Mechanical Ventilator 100 07/23/20 18:00 23 149/57 Mechanical Ventilator 100 07/23/20 17:30 63 22 136/49 (78) 100 07/23/20 17:26 22 131/43 Mechanical Ventilator 15.0 100 07/23/20 17:00 51 22 131/44 (73) 100 07/23/20 17:00 22 129/43 Mechanical Ventilator 100 07/23/20 17:00 22 131/44 Mechanical Ventilator 100 07/23/20 16:30 52 22 133/42 (72) 100 07/23/20 16:00 52 131/43 Mechanical Ventilator 100 07/23/20 16:00 22 131/43 Mechanical Ventilator 100 07/23/20 16:00 100 07/23/20 16:00 Mechanical Ventilator Mechanical Ventilator 07/23/20 16:00 99.0 56 22 129/43 (71) 100 07/23/20 16:00 53 07/23/20 15:30 54 22 131/43 (72) 99 07/23/20 15:00 20 132/42 Mechanical Ventilator 100 07/23/20 15:00 22 132/42 Mechanical Ventilator 100 07/23/20 15:00 55 22 132/42 (72) 100 07/23/20 15:00 58 22 132/42 (72) 99 07/23/20 14:45 22 126/42 Mechanical Ventilator 100 07/23/20 14:45 22 126/42 Mechanical Ventilator 100 07/23/20 14:30 54 22 133/48 (76) 100 07/23/20 14:30 20 126/70 Mechanical Ventilator 100 07/23/20 14:30 20 126/70 Mechanical Ventilator 100 07/23/20 14:15 22 130/68 Mechanical Ventilator 100 07/23/20 14:15 20 130/68 Mechanical Ventilator 100 07/23/20 14:00 22 138/51 Mechanical Ventilator 100 07/23/20 14:00 19 138/51 Mechanical Ventilator 100 07/23/20 14:00 56 22 130/47 (74) 100 07/23/20 13:45 20 120/60 Mechanical Ventilator 100 07/23/20 13:45 20 120/60 Mechanical Ventilator 100 07/23/20 13:30 20 120/60 Mechanical Ventilator 100 07/23/20 13:30 20 120/60 Mechanical Ventilator 100 07/23/20 13:30 54 22 131/51 (77) 100 07/23/20 13:25 69 22 100 07/23/20 13:15 20 120/80 Mechanical Ventilator 100 07/23/20 13:15 20 120/80 Mechanical Ventilator 100 07/23/20 13:00 22 130/49 Mechanical Ventilator 100 07/23/20 13:00 22 130/49 Mechanical Ventilator 100 07/23/20 13:00 56 22 131/53 (79) 100 07/23/20 12:30 73 21 143/54 (83) 100 07/23/20 12:29 24 141/54 Mechanical Ventilator 15.0 100 07/23/20 12:00 105 07/23/20 12:00 99.1 60 22 136/49 (78) 98 07/23/20 12:00 Mechanical Ventilator Mechanical Ventilator 07/23/20 12:00 100 07/23/20 12:00 22 143/54 Mechanical Ventilator 100 07/23/20 12:00 22 143/54 Mechanical Ventilator 100 07/23/20 11:30 87 24 141/54 (83) 98 07/23/20 11:00 79 24 179/78 (111) 92 07/23/20 11:00 22 143/51 Mechanical Ventilator 100 07/23/20 11:00 22 143/51 Mechanical Ventilator 100 07/23/20 10:30 65 20 156/64 (94) 91 07/23/20 10:00 69 21 143/60 (87) 91 07/23/20 10:00 21 143/60 Mechanical Ventilator 100 07/23/20 10:00 21 143/60 Mechanical Ventilator 100 07/23/20 09:30 72 21 149/59 (89) 93 07/23/20 09:00 22 140/62 Mechanical Ventilator 100 07/23/20 09:00 22 140/62 Mechanical Ventilator 100 07/23/20 09:00 85 20 154/59 (90) 94 07/23/20 08:39 13 159/72 Mechanical Ventilator 15.0 100 07/23/20 08:30 98 12 159/72 (101) 95 07/23/20 08:00 99.0 73 18 130/69 (89) 94 07/23/20 08:00 Mechanical Ventilator Mechanical Ventilator 07/23/20 08:00 13 179/72 Mechanical Ventilator 100 07/23/20 08:00 13 159/72 Mechanical Ventilator 100 07/23/20 08:00 100 07/23/20 08:00 76 07/23/20 07:20 78 28 100 07/23/20 07:00 83 20 149/72 (97) 90 07/23/20 07:00 20 149/72 Mechanical Ventilator 100 07/23/20 07:00 20 149/72 Mechanical Ventilator 100 07/23/20 06:30 76 18 146/67 (93) 91 07/23/20 06:00 20 142/66 Mechanical Ventilator 100 07/23/20 06:00 20 142/66 Mechanical Ventilator 100 07/23/20 06:00 82 20 142/66 (91) 93 07/23/20 05:30 104 24 140/70 (93) 90 07/23/20 05:00 111 27 137/66 (89) 91 07/23/20 05:00 27 137/66 Mechanical Ventilator 100 07/23/20 05:00 27 137/66 Mechanical Ventilator 100 07/23/20 04:45 22 142/72 Mechanical Ventilator 100 07/23/20 04:45 22 142/72 Mechanical Ventilator 100 07/23/20 04:30 92 23 133/73 (93) 95 07/23/20 04:30 23 133/73 Mechanical Ventilator 100 07/23/20 04:30 23 133/73 Mechanical Ventilator 100 07/23/20 04:20 22 146/67 Mechanical Ventilator 100 07/23/20 04:15 76 22 146/67 (93) 97 07/23/20 04:00 76 07/23/20 04:00 24 136/72 Mechanical Ventilator 100 07/23/20 04:00 59 136/72 Mechanical Ventilator 100 07/23/20 04:00 Mechanical Ventilator Mechanical Ventilator 07/23/20 04:00 100 07/23/20 04:00 98.9 59 24 136/72 (93) 97 HEENT: Orally intubated, Mechanically Ventilated, Thin secretions ET Tube RHYTHM: SB LUNGS: bilateral rhonchi CARDIAC: regular rhythm, normal S1 and S2, bradycardia ABDOMEN: normal bowel sounds, non tender, soft EXTREMITIES: normal range of motion, non-tender Laboratory Tests Test 07/23/20 04:10 07/23/20 05:39 07/23/20 20:09 07/24/20 00:42 White Blood Count 18.8 K/UL (4.8-10.8) H Red Blood Count 4.62 M/UL (4.70-6.10) L Hemoglobin 14.2 G/DL (14.2-18.0) Hematocrit 41.9 % (42.0-52.0) L Mean Corpuscular Volume 91 FL (80-99) Mean Corpuscular Hemoglobin 30.6 PG (27.0-31.0) Mean Corpuscular Hemoglobin Concent 33.8 G/DL (32.0-36.0) Red Cell Distribution Width 12.4 % (11.6-14.8) Platelet Count 379 K/UL (150-450) Mean Platelet Volume 7.1 FL (6.5-10.1) Neutrophils (%) (Auto) % (45.0-75.0) Lymphocytes (%) (Auto) % (20.0-45.0) Monocytes (%) (Auto) % (1.0-10.0) Eosinophils (%) (Auto) % (0.0-3.0) Basophils (%) (Auto) % (0.0-2.0) Differential Total Cells Counted 100 Neutrophils % (Manual) 88 % (45-75) H Lymphocytes % (Manual) 5 % (20-45) L Monocytes % (Manual) 7 % (1-10) Eosinophils % (Manual) 0 % (0-3) Basophils % (Manual) 0 % (0-2) Band Neutrophils 0 % (0-8) Platelet Estimate Adequate Platelet Morphology Normal Red Blood Cell Morphology Normal Sodium Level 135 MMOL/L (136-145) L Potassium Level 4.2 MMOL/L (3.5-5.1) Chloride Level 100 MMOL/L (98-107) Carbon Dioxide Level 31 MMOL/L (21-32) Anion Gap 4 mmol/L (5-15) L Blood Urea Nitrogen 14 mg/dL (7-18) Creatinine 0.7 MG/DL (0.55-1.30) Estimat Glomerular Filtration Rate > 60 mL/min (>60) Glucose Level 300 MG/DL (74-106) H Calcium Level 8.2 MG/DL (8.5-10.1) L Triglycerides Level 209 MG/DL (30-150) H POC Whole Blood Glucose 315 MG/DL (74-106) H Pending 219 MG/DL (74-106) H Microbiology Date/Time Source Procedure Growth Status 07/21/20 15:30 Sputum Gram Stain - Final Complete 07/21/20 15:30 Sputum Culture - Final Klebsiella Pneumoniae Complete Assessment/Plan Assessment/Plan Covid 19 PNA K.pneumonia PNA Acute respiratory failure with Hypoxia Sinus bradycardia 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 Abx per ID Continuous cardiac monitoring Anticoagulation and steroid rx Titrate oxygen as able; prone. Anti-viral rx Protein suppl Insulin cov'g by SS; levemir dose advanced further. Stress test once Covid-free to check chronotropic competence. Chuck Swain MD Jul 24, 2020 03:41
--- NOTE | 2020-07-24 04:00 | NUR ---
NURSE NOTES: Morning care was done. Cleaned Pt and applied lotion and cream. on municipal [employer] with SR. SaO2 99% with Current vent setting. Given suction and oral care. No sign of pain by FLACC scale. Noted BT: 98.9F. Turn and reposition. Will continue to monitor any change of condition.
[2020-07-24] MEDS: propofoL 1,000mg/100ml 100 ML IV SCH (04:45)
--- NOTE | 2020-07-24 06:00 | NUR ---
NURSE NOTES: Pt is sedated on the bed and RASS -2. SaO2 99-100% with Vent. Given suction and oral care. Changed position. Will continue to monitor.
[2020-07-24] MEDS: Piperacillin/Tazobactam 3.375 GM in NS 110 ML IVPB SCH ×3 (06:05→21:55)
[2020-07-24 07:08] LABS: ANION GAP 1 mmol/L (5-15); BLOOD UREA NITROGEN 14 mg/dL (7-18); CALCIUM 8.2 MG/DL (8.5-10.1); CARBON DIOXIDE 34 MMOL/L (21-32); CHLORIDE 101 MMOL/L (98-107); CREATININE 0.7 MG/DL (0.55-1.30); HEMOGLOBIN 14.4 G/DL (14.2-18.0); MEAN CORPUSCULAR VOLUME 87 FL (80-99); PLATELET COUNT 376 K/UL (150-450); POTASSIUM 3.9 MMOL/L (3.5-5.1); RED BLOOD COUNT 4.74 M/UL (4.70-6.10); SODIUM 136 MMOL/L (136-145); WHITE BLOOD COUNT 16.6 K/UL (4.8-10.8)
--- NOTE | 2020-07-24 07:20 | NUR ---
NURSE HAND-OFF REPORT: Latest Vital Signs: Temperature 98.9 , Pulse 93 , B/P 132 /53 , Respiratory Rate 20 , O2 SAT 99 , Mechanical Ventilator, O2 Flow Rate . Vital Sign Comment: EKG Rhythm: Sinus Rhythm Rhythm change?: N Latest Bradley Fall Score: 30 Fall Risk: Medium Risk Safety Measures: Call light Within Reach, Bed Alarm Zone 2, Side Rails Side Rails x2, Bed position Low and Locked. Fall Precautions: Yellow Socks Yellow Gown Patient Fall Education Report given to ELIER Prieto. Pt is sedated on the bed and RASS -2 and on running with Fentanyl @ 80mcg/hr and propofol @ 30mcg/kg/min. SaO2 99-100% with current Vent setting.
--- NOTE | 2020-07-24 07:21 | NUR ---
NURSE NOTES: Received pt from ELIER Srivastava. Pt VS stable at this time. Pt intubated and sedated on 100% FiO2 and peep 8. Pt tolerating with no sign of distress. SpO2 98% at this time. Pt RASS score -2. Pt calm and cooperative. Restraint in place for safety and impulsive behavior. Pt moves all ext. Pupils equal, PERRLA. Pt on propofol and fentanyl. Pt triglycerides elevated. Will titrate up the fentanyl and discontinue the propofol if possible. Oral gastric tube in place and verified by air auscultation and running vital AF 1.2 at 20mL/hr. residual high. Will notify primary MD when he rounds on the pt. Biswas in place. clear, yellow urine noted. skin intact. PICC line noted on left upper arm. Dressing dry, intact, asymptomatic. Blood glucose remains elevated. Will follow up with levgeraldine and novolog as scheduled and continue to monitor. Peripheral pulses equal and strong. Will cont to monitor.
[2020-07-24] MEDS: Ascorbic Acid 500mg tab NG SCH ×2 (08:31→17:53)
[2020-07-24] MEDS: Vitamin B Complex Tab NG SCH (08:31)
[2020-07-24] MEDS: Vitamin D 1000 units Tab GT SCH (08:31)
[2020-07-24] MEDS: Enoxaparin 40mg Inj SUBQ SCH (08:33)
[2020-07-24] MEDS: Levemir Flexpen SUBQ SCH ×2 (08:47→17:58)
--- NOTE | 2020-07-24 09:06 | NUR ---
RD ASSESSMENT & RECOMMENDATIONS SEE CARE ACTIVITY FOR COMPLETE ASSESSMENT DAILY ESTIMATED NEEDS: Needs based on Critical care 72kg abw 22-28 kcals/kg 5156-4440 total kcals 1.2-2 g protein/kg 86-144 g total protein 25-30 mL/kg 9324-0888 total fluid mLs NUTRITION DIAGNOSIS: * Swallowing difficulty R/T respiratory failure as evidenced by pt now orally intubated, NPO. * Altered nutrition related lab values r/t hyperglycemia as evidenced by BG POC glu in the 300's, pt on Solumedrol CURRENT TF: Vital 1.2 @30ml/hr-> now @20ml/hr ENTERAL NUTRITION RECOMMENDATIONS: Vital 1.2 for critical care and carb control @ goal of 55ml/hr x24 hrs to provide 1320ml, 1584kcal, 99g prot, 1071ml free water - When medically stable for feeds, initiate Vital1.2 for critical care and carb control. - Start @30ml/hr for 6 hrs, advance as tolerated 10ml/hr q4-6 hrs to goal - Flush per JUAN A METCALF over 30 degrees WITH DIPRIVAN RUNNING @ 17.064ML/HR (provides 450kcal) -> rec Vital AF 1.2 @ goal rate of 40ml/hr x 24 hrs to provide 960ml, 1152kcal, 72g prot -> TF lowered to 20ml/hr d/t residuals; increase to goal of 40ml/hr as tolerated. ADDITIONAL RECOMMENDATIONS: 1) Rec to check HgA1C for eval 2) Insulin regimen for improved BG- now on levemir + niss 3) Monitor resp status, currently on high flow O2 w/ good po intake Now intubated (07/20), TF recs as above 4) Montior Diprivan rate for need to adjust TF goal rate Propofol nwo @17.064ml/hr
--- NOTE | 2020-07-24 10:15 | NUR ---
NURSE NOTES: Spoke with pt girlfriend. Update given.
--- NOTE | 2020-07-24 10:51 | NUR ---
NURSE NOTES: Fentanyl not sufficient to sedate the pt. Propofol needs to be left off due to high triglycerides. Called Dr Ortega and left message. Awaiting call back.
--- NOTE | 2020-07-24 12:00 | NUR ---
NURSE NOTES: pt HR elevated. Blood pressure stable. SpO2 fluctuating. SpO2 92-95 when pt resting. When pt suctioned or moved in the bed, pt SpO2 drops to the high 80s and low 90s. Will continue to monitor and titrate sedation as needed. Pt RASS score -1 at this time. Pt cooperative but coughing/gagging occasionally around the ventilator. Pt fiO2 remains 100%. Will follow up with Dr Ortega regarding proning. Will continue to monitor.
--- NOTE | 2020-07-24 12:26 | Diagnostic Imaging Report ---
FILM CXR 1 VIEW History: Follow-up Comparison: July 20, 2020 Findings: Single view chest. Endotracheal tube in place with tip above the clavicles in the thoracic ill. Enteric tube with tip in the stomach. Left-sided central line with tip in the superior vena cava versus atrial caval junction. Multilobar mixed alveolar and interstitial infiltrates with mild improvement. Impression: Multi lobar infiltrates with mild improvement from the prior exam. Support lines and tubes in place. Endotracheal tube in place with tip above the clavicles at the thoracic inlet.
[2020-07-24] MEDS: Acetaminophen 500mg (ES) tab ORAL PRN (12:30)
[2020-07-24] MEDS: fentaNYL 2500mcg/NS 250ml 250 ML IV SCH ×3 (12:45→23:33)
--- NOTE | 2020-07-24 15:04 | Pulmonolgy Critical Care Note ---
Critical Care - Asmt/Plan Assessment/Plan: Pulmonary CCM Progress Noted Subjective ROS Limited/Unobtainable: Yes Constitutional: Reports: no symptoms Gastrointestinal/Abdominal: Reports: no symptoms Musculoskeletal: Denies: pain Allergies: Coded Allergies: No Known Allergies (Unverified , 03/08/17) All Systems: reviewed and negative except above Not candidate for Remdesivir - increased LFT's Intubated, on ACVC, CXR ETT satisfactory,bilateral infiltrates,PICC in position, Prone PRN ABG improved,stableO2 sats Sedated on the ventilator Propofol/Fentenyl gtt Medications noted Objective Vital Signs noted PE deferred due to COVID 19 Laboratory Tests noted Assessment/Plan Assessment/Plan Acute hypoxemic respiratory failure In ICU on ventilator COVID pneumonia Asthma elevated liver enzymes PLAN ACVC ABG PRN monitor imaging PRN monitor ABG PRN decadron/Antivirals/AB per ID respiratory care Nutrition consult ID noted DVT prophylaxis taper FIO2 as able monitor respiratory status for change impression, plan, and exam edited and reviewed in detail care discussed with pet stylist - Objective Last 24 Hour Vital Signs Date Time Temp Pulse Resp B/P (MAP) Pulse Ox O2 Delivery O2 Flow Rate FiO2 07/24/20 14:54 115 26 100 07/24/20 14:49 24 113/48 Mechanical Ventilator 100 07/24/20 13:00 100.4 07/24/20 12:45 107 25 127/62 (83) 97 07/24/20 12:45 24 116/60 Mechanical Ventilator 100 07/24/20 12:30 107 26 131/53 (79) 97 07/24/20 12:15 101 24 133/67 (89) 97 07/24/20 12:00 100.5 115 26 134/70 (91) 93 07/24/20 12:00 100 07/24/20 12:00 Mechanical Ventilator Mechanical Ventilator 07/24/20 11:45 99 24 123/62 (82) 97 07/24/20 11:30 103 24 125/64 (84) 96 07/24/20 11:15 97 23 136/62 (86) 96 07/24/20 11:00 23 136/62 Mechanical Ventilator 100 07/24/20 11:00 112 27 138/65 (89) 93 07/24/20 10:45 104 28 160/74 (102) 89 07/24/20 10:40 104 31 100 12/27/20 10:30 102 25 132/67 (88) 93 07/24/20 10:30 28 160/74 Mechanical Ventilator 100 07/24/20 10:15 109 31 145/61 (89) 86 07/24/20 10:00 103 26 131/67 (88) 94 07/24/20 10:00 27 145/61 Mechanical Ventilator 100 07/24/20 09:45 101 25 143/64 (90) 94 07/24/20 09:30 91 24 133/61 (85) 97 07/24/20 09:30 34 143/64 Mechanical Ventilator 100 07/24/20 09:30 34 143/64 Mechanical Ventilator 100 07/24/20 09:15 88 25 124/60 (81) 98 07/24/20 09:00 102 21 128/72 (90) 99 07/24/20 09:00 25 124/60 Mechanical Ventilator 97 07/24/20 09:00 25 124/60 Mechanical Ventilator 100 07/24/20 08:45 84 24 115/65 (82) 99 07/24/20 08:30 63 21 115/51 (72) 99 07/24/20 08:30 24 115/51 Mechanical Ventilator 100 07/24/20 08:30 24 115/51 Mechanical Ventilator 100 07/24/20 08:15 68 21 111/50 (70) 99 07/24/20 08:00 100 07/24/20 08:00 Mechanical Ventilator Mechanical Ventilator 07/24/20 08:00 99.3 70 21 116/47 (70) 99 07/24/20 08:00 20 111/50 Mechanical Ventilator 100 07/24/20 08:00 20 111/50 Mechanical Ventilator 100 07/24/20 08:00 65 07/24/20 07:45 81 23 123/55 (77) 98 07/24/20 07:30 71 23 132/55 (80) 99 07/24/20 07:15 65 19 134/49 (77) 99 07/24/20 07:00 93 28 100 07/24/20 07:00 20 132/53 Mechanical Ventilator 100 07/24/20 07:00 20 132/53 Mechanical Ventilator 100 07/24/20 07:00 63 20 132/53 (79) 99 07/24/20 06:00 67 17 118/56 (76) 100 07/24/20 06:00 17 118/56 Mechanical Ventilator 100 07/24/20 06:00 17 118/56 Mechanical Ventilator 100 07/24/20 05:30 72 21 121/49 (73) 99 07/24/20 05:00 84 22 114/61 (78) 98 07/24/20 05:00 22 114/61 Mechanical Ventilator 100 07/24/20 05:00 22 114/61 Mechanical Ventilator 100 07/24/20 04:45 19 149/55 Mechanical Ventilator 100 07/24/20 04:30 81 24 149/55 (86) 97 07/24/20 04:00 85 07/24/20 04:00 100 07/24/20 04:00 22 139/53 Mechanical Ventilator 100 07/24/20 04:00 22 139/53 Mechanical Ventilator 100 07/24/20 04:00 98.9 85 22 139/53 (81) 99 07/24/20 04:00 Mechanical Ventilator Mechanical Ventilator 07/24/20 03:30 86 22 141/54 (83) 100 07/24/20 03:00 70 19 134/51 (78) 100 07/24/20 03:00 19 134/51 Mechanical Ventilator 100 07/24/20 03:00 19 134/51 Mechanical Ventilator 100 07/24/20 02:30 69 21 138/50 (79) 99 07/24/20 02:00 24 134/55 Mechanical Ventilator 100 07/24/20 02:00 24 134/55 Mechanical Ventilator 100 07/24/20 02:00 82 24 134/55 (81) 99 07/24/20 01:30 66 23 140/46 (77) 98 07/24/20 01:00 26 162/48 Mechanical Ventilator 100 07/24/20 01:00 26 162/48 Mechanical Ventilator 100 07/24/20 01:00 80 26 162/48 (86) 99 07/24/20 00:55 71 26 100 07/24/20 00:30 73 22 148/64 (92) 98 07/24/20 00:00 83 07/24/20 00:00 100 07/24/20 00:00 23 165/56 Mechanical Ventilator 100 07/24/20 00:00 23 165/56 Mechanical Ventilator 100 07/24/20 00:00 99.1 82 23 165/56 (92) 97 07/24/20 00:00 Mechanical Ventilator Mechanical Ventilator 07/23/20 23:00 81 23 152/55 (87) 96 07/23/20 23:00 23 152/55 Mechanical Ventilator 100 07/23/20 23:00 23 152/55 Mechanical Ventilator 100 07/23/20 22:54 23 146/63 Mechanical Ventilator 100 07/23/20 22:30 80 24 146/63 (90) 97 07/23/20 22:00 77 24 137/54 (81) 98 07/23/20 22:00 24 137/54 Mechanical Ventilator 100 07/23/20 22:00 24 137/54 Mechanical Ventilator 100 07/23/20 21:30 78 22 149/52 (84) 99 07/23/20 21:00 72 22 135/56 (82) 98 07/23/20 21:00 22 135/56 Mechanical Ventilator 100 07/23/20 21:00 22 135/56 Mechanical Ventilator 100 07/23/20 20:40 77 23 100 07/23/20 20:30 93 25 146/57 (86) 98 07/23/20 20:05 22 146/47 Mechanical Ventilator 100 07/23/20 20:00 78 07/23/20 20:00 99.2 70 23 146/47 (80) 99 07/23/20 20:00 23 146/47 Mechanical Ventilator 100 07/23/20 20:00 23 146/47 Mechanical Ventilator 100 07/23/20 20:00 100 07/23/20 20:00 Mechanical Ventilator Mechanical Ventilator 07/23/20 19:30 69 23 144/54 (84) 98 07/23/20 19:00 22 137/49 Mechanical Ventilator 100 07/23/20 19:00 22 137/49 Mechanical Ventilator 100 07/23/20 19:00 76 23 135/52 (79) 97 07/23/20 18:45 22 141/50 Mechanical Ventilator 100 07/23/20 18:45 22 141/50 Mechanical Ventilator 100 07/23/20 18:30 23 141/50 Mechanical Ventilator 100 07/23/20 18:30 23 141/50 Mechanical Ventilator 100 07/23/20 18:30 72 22 141/50 (80) 98 07/23/20 18:15 23 136/54 Mechanical Ventilator 100 07/23/20 18:15 23 136/54 Mechanical Ventilator 100 07/23/20 18:00 89 21 149/57 (87) 99 07/23/20 18:00 23 149/57 Mechanical Ventilator 100 07/23/20 18:00 23 149/57 Mechanical Ventilator 100 07/23/20 17:30 63 22 136/49 (78) 100 07/23/20 17:26 22 131/43 Mechanical Ventilator 15.0 100 07/23/20 17:00 51 22 131/44 (73) 100 07/23/20 17:00 22 129/43 Mechanical Ventilator 100 07/23/20 17:00 22 131/44 Mechanical Ventilator 100 07/23/20 16:30 52 22 133/42 (72) 100 07/23/20 16:00 52 131/43 Mechanical Ventilator 100 07/23/20 16:00 22 131/43 Mechanical Ventilator 100 07/23/20 16:00 100 07/23/20 16:00 Mechanical Ventilator Mechanical Ventilator 07/23/20 16:00 99.0 56 22 129/43 (71) 100 07/23/20 16:00 53 07/23/20 15:30 54 22 131/43 (72) 99 Micro: Microbiology Date/Time Source Procedure Growth Status 07/21/20 15:30 Sputum Gram Stain - Final Complete 07/21/20 15:30 Sputum Culture - Final Klebsiella Pneumoniae Complete Accucheck: 141 Critical Care - Subjective ROS Limited/Unobtainable: Yes Condition: critical IV Access: PICC EKG Rhythm: Sinus Rhythm FI02: 100 Vent Support Breath Rate: 22 Vent Support Mode: AC Vent Tidal Volume: 500 Sputum Amount: Moderate PEEP: 8.0 PIP: 22 Tube Feeding Amount: 20 I&O: Intake and Output 07/23/20 07/24/20 18:59 06:59 Intake Total 1193.599 ml 645.308 ml Output Total 560 ml 760 ml Balance 633.599 ml -114.692 ml Free Water 60 ml IV Total 938.599 ml 355.308 ml Tube Feeding 195 ml 290 ml Output Urine Total 560 ml 760 ml ET-Tube: 7.5 ET Position: 22 Chuck Ortega MD Jul 24, 2020 15:04
[2020-07-24] MEDS: Midazolam HCl 50mg/10ml vial 50 MG in NS 90 ML IV PRN ×2 (15:38→21:24)
--- NOTE | 2020-07-24 17:30 | NUR ---
NURSE NOTES: Pt placed in prone position. Pt RASS score +1 restless at this time. Versed increased at this time. Pt tolerating proning. SpO2 94% and increasing. Pt denies pain or distress. Will continue to monitor. Addendum: 07/24/20 at 1925 by Ida Lopez RN pt NPO at this time due to proning. 100mL residual discarded. 20mL returned.
--- NOTE | 2020-07-24 17:44 | NUR ---
NURSE NOTES: Called Dr Ortega and gave kidney function tests. Reported that patient is successfully proning however, Urine is tea colored. Requested IVF. New order given while proning for D51/2NS @ 60 while proning.
[2020-07-24] MEDS: D5 1/2NS 1,000 ML IV PRN (18:01)
--- NOTE | 2020-07-24 18:08 | NUR ---
NURSE NOTES: Dr Ortega rounded on pt. Pt prone at this time. Received order for tylenol 640mg per rectum Q4HR as pt is prone at this time. Received order for ABG in AM while pt is still prone. Order read back, verified, and placed.
[2020-07-24] MEDS: Acetaminophen 650 MG SUPP RECTAL PRN (18:49)
--- NOTE | 2020-07-24 19:23 | NUR ---
HAND-OFF: Report given to ELIER Gonzalez. Endorsed to follow up. Pt proned and tolerating with SpO2 99-100%.
--- NOTE | 2020-07-24 19:30 | NUR ---
NURSE NOTES: received report from Ida Lopez RN.
--- NOTE | 2020-07-24 20:00 | NUR ---
NURSE NOTES: Received patient in bed in prone position. No s/s of acute distress noted. patient orally intubated Fi02 100% satting 98%. BP 141/72, HR 95. Biswas draining. Temp 100.0 rectally continue cooling measure. No s/s of hypo/hyperglycemia. Left upper arm PICC line intact infusing Fentanyl 350mcg/hr, Versed drip at 8 mg/hr and D51/2 NS at 60cc/hr RASS score -2. no s/s of hypo/hyperglycemia. Covid +. Airborne precaution maintained and observed. will continue plan of care.
[2020-07-24] MEDS: Dyna-Hex 2% Top Sol 2oz TOPIC SCH (20:55)
[2020-07-24] MEDS: Enoxaparin 80mg Inj SUBQ SCH (21:55)
--- NOTE | 2020-07-24 22:00 | NUR ---
NURSE NOTES: Patient in bed in prone position. No s/s of acute distress noted. patient orally intubated Fi02 100% satting 98%. BP 145/77 HR 95. Biswas draining. Temp 100.0 rectally continue cooling measure. No s/s of hypo/hyperglycemia. Left upper arm PICC line intact infusing Fentanyl 350mcg/hr, Versed drip at 8 mg/hr and D51/2 NS at 60cc/hr RASS score -2. no s/s of hypo/hyperglycemia. Covid +. Airborne precaution maintained and observed. will continue plan of care.
[2020-07-25] VITALS (46 sets, daily range): BP systolic 100–178; BP diastolic 47–98
--- NOTE | 2020-07-25 00:51 | Cardiology Progress Note ---
Subjective DATE OF SERVICE: Jul 24, 2020 Condition remains critical Sputum now also positive for K.pneumonia. He remains on full vent support, on 100% FIO2 - orally intubated. Still with episodes of asymptomatic sinus bradycardia. No LOC or syncope. ABG (07/24) 7.43/52/52 (100% FIO2) Objective Last 24 Hour Vital Signs Date Time Temp Pulse Resp B/P (MAP) Pulse Ox O2 Delivery O2 Flow Rate FiO2 07/25/20 00:30 95 22 140/76 (97) 97 07/25/20 00:00 100 07/25/20 00:00 Mechanical Ventilator Mechanical Ventilator 07/25/20 00:00 99.9 95 22 141/72 (95) 98 07/24/20 23:33 22 134/76 Mechanical Ventilator 15.0 100 07/24/20 23:30 116 22 140/85 (103) 97 07/24/20 23:00 92 22 135/74 (94) 98 07/24/20 22:40 94 22 100 07/24/20 22:00 94 22 134/76 (95) 97 07/24/20 21:24 22 Mechanical Ventilator 15.0 100 07/24/20 21:00 94 22 135/73 (93) 98 07/24/20 20:00 100 07/24/20 20:00 100.0 96 22 139/77 (97) 98 07/24/20 20:00 Mechanical Ventilator Mechanical Ventilator 07/24/20 19:19 100.7 07/24/20 19:00 98 22 134/75 (94) 99 07/24/20 19:00 22 Mechanical Ventilator 100 07/24/20 19:00 22 131/79 Mechanical Ventilator 100 07/24/20 18:45 100 22 131/79 (96) 99 07/24/20 18:43 100 22 100 07/24/20 18:30 103 22 134/73 (93) 98 07/24/20 18:15 103 22 138/82 (100) 98 07/24/20 18:00 22 Mechanical Ventilator 100 07/24/20 18:00 22 138/82 Mechanical Ventilator 100 07/24/20 18:00 105 22 142/84 (103) 97 07/24/20 17:45 111 22 147/70 (95) 94 07/24/20 17:30 123 22 146/71 (96) 93 07/24/20 17:23 115 07/24/20 17:15 130 23 138/66 (90) 92 07/24/20 17:00 22 Mechanical Ventilator 100 07/24/20 17:00 22 138/66 Mechanical Ventilator 100 07/24/20 17:00 108 21 102/55 (71) 98 07/24/20 16:45 102 21 99/48 (65) 99 07/24/20 16:30 22 Mechanical Ventilator 100 07/24/20 16:30 108 18 111/47 (68) 98 07/24/20 16:15 104 21 105/46 (65) 98 07/24/20 16:00 100 07/24/20 16:00 Mechanical Ventilator Mechanical Ventilator 07/24/20 16:00 25 Mechanical Ventilator 100 07/24/20 16:00 24 100/47 Mechanical Ventilator 100 07/24/20 16:00 117 07/24/20 16:00 100.4 108 21 100/47 (64) 98 07/24/20 15:45 112 21 109/48 (68) 97 07/24/20 15:45 25 Mechanical Ventilator 100 07/24/20 15:38 25 Mechanical Ventilator 100 07/24/20 15:30 116 24 114/58 (76) 96 07/24/20 15:15 116 25 119/40 (66) 96 07/24/20 15:00 115 33 149/69 (95) 84 07/24/20 15:00 25 113/48 Mechanical Ventilator 100 07/24/20 14:54 115 26 100 07/24/20 14:49 24 113/48 Mechanical Ventilator 100 07/24/20 14:45 112 24 113/48 (69) 97 07/24/20 14:45 25 119/40 Mechanical Ventilator 100 07/24/20 14:30 104 23 116/50 (72) 97 07/24/20 14:15 111 24 114/54 (74) 96 07/24/20 14:00 107 24 112/52 (72) 97 07/24/20 14:00 25 114/54 Mechanical Ventilator 100 07/24/20 13:45 110 23 121/57 (78) 97 07/24/20 13:30 114 25 122/55 (77) 97 07/24/20 13:15 102 22 115/48 (70) 98 07/24/20 13:00 25 115/48 Mechanical Ventilator 100 07/24/20 13:00 100.4 07/24/20 13:00 102 23 116/60 (78) 97 07/24/20 12:45 107 25 127/62 (83) 97 07/24/20 12:45 24 116/60 Mechanical Ventilator 100 07/24/20 12:30 107 26 131/53 (79) 97 07/24/20 12:15 101 24 133/67 (89) 97 07/24/20 12:00 100.5 115 26 134/70 (91) 93 07/24/20 12:00 25 133/67 Mechanical Ventilator 100 07/24/20 12:00 100 07/24/20 12:00 Mechanical Ventilator Mechanical Ventilator 07/24/20 12:00 109 07/24/20 11:45 99 24 123/62 (82) 97 07/24/20 11:30 103 24 125/64 (84) 96 07/24/20 11:30 24 123/62 Mechanical Ventilator 100 07/24/20 11:15 97 23 136/62 (86) 96 07/24/20 11:00 23 136/62 Mechanical Ventilator 100 07/24/20 11:00 112 27 138/65 (89) 93 07/24/20 10:45 104 28 160/74 (102) 89 07/24/20 10:40 104 31 100 07/24/20 10:30 102 25 132/67 (88) 93 07/24/20 10:30 28 160/74 Mechanical Ventilator 100 07/24/20 10:15 109 31 145/61 (89) 86 07/24/20 10:00 103 26 131/67 (88) 94 07/24/20 10:00 27 145/61 Mechanical Ventilator 100 07/24/20 09:45 101 25 143/64 (90) 94 07/24/20 09:30 91 24 133/61 (85) 97 07/24/20 09:30 34 143/64 Mechanical Ventilator 100 07/24/20 09:30 34 143/64 Mechanical Ventilator 100 07/24/20 09:15 88 25 124/60 (81) 98 07/24/20 09:00 102 21 128/72 (90) 99 07/24/20 09:00 25 124/60 Mechanical Ventilator 97 07/24/20 09:00 25 124/60 Mechanical Ventilator 100 07/24/20 08:45 84 24 115/65 (82) 99 07/24/20 08:30 63 21 115/51 (72) 99 07/24/20 08:30 24 115/51 Mechanical Ventilator 100 07/24/20 08:30 24 115/51 Mechanical Ventilator 100 07/24/20 08:15 68 21 111/50 (70) 99 07/24/20 08:00 100 07/24/20 08:00 Mechanical Ventilator Mechanical Ventilator 07/24/20 08:00 99.3 70 21 116/47 (70) 99 07/24/20 08:00 20 111/50 Mechanical Ventilator 100 07/24/20 08:00 20 111/50 Mechanical Ventilator 100 07/24/20 08:00 65 07/24/20 07:45 81 23 123/55 (77) 98 07/24/20 07:30 71 23 132/55 (80) 99 07/24/20 07:15 65 19 134/49 (77) 99 07/24/20 07:00 93 28 100 07/24/20 07:00 20 132/53 Mechanical Ventilator 100 07/24/20 07:00 20 132/53 Mechanical Ventilator 100 07/24/20 07:00 63 20 132/53 (79) 99 07/24/20 06:00 67 17 118/56 (76) 100 07/24/20 06:00 17 118/56 Mechanical Ventilator 100 07/24/20 06:00 17 118/56 Mechanical Ventilator 100 07/24/20 05:30 72 21 121/49 (73) 99 07/24/20 05:00 84 22 114/61 (78) 98 07/24/20 05:00 22 114/61 Mechanical Ventilator 100 07/24/20 05:00 22 114/61 Mechanical Ventilator 100 07/24/20 04:45 19 149/55 Mechanical Ventilator 100 07/24/20 04:30 81 24 149/55 (86) 97 07/24/20 04:00 85 07/24/20 04:00 100 07/24/20 04:00 22 139/53 Mechanical Ventilator 100 07/24/20 04:00 22 139/53 Mechanical Ventilator 100 07/24/20 04:00 98.9 85 22 139/53 (81) 99 07/24/20 04:00 Mechanical Ventilator Mechanical Ventilator 12/27/20 03:30 86 22 141/54 (83) 100 07/24/20 03:00 70 19 134/51 (78) 100 07/24/20 03:00 19 134/51 Mechanical Ventilator 100 07/24/20 03:00 19 134/51 Mechanical Ventilator 100 07/24/20 02:30 69 21 138/50 (79) 99 07/24/20 02:00 24 134/55 Mechanical Ventilator 100 07/24/20 02:00 24 134/55 Mechanical Ventilator 100 07/24/20 02:00 82 24 134/55 (81) 99 07/24/20 01:30 66 23 140/46 (77) 98 07/24/20 01:00 26 162/48 Mechanical Ventilator 100 07/24/20 01:00 26 162/48 Mechanical Ventilator 100 07/24/20 01:00 80 26 162/48 (86) 99 07/24/20 00:55 71 26 100 HEENT: Orally intubated, Mechanically Ventilated, Thin secretions ET Tube RHYTHM: SB LUNGS: bilateral rhonchi CARDIAC: regular rhythm, normal S1 and S2, bradycardia ABDOMEN: normal bowel sounds, non tender, soft EXTREMITIES: normal range of motion, non-tender Laboratory Tests Test 07/24/20 06:15 07/24/20 10:58 07/24/20 12:33 White Blood Count 16.6 K/UL (4.8-10.8) H Red Blood Count 4.74 M/UL (4.70-6.10) Hemoglobin 14.4 G/DL (14.2-18.0) Hematocrit 41.0 % (42.0-52.0) L Mean Corpuscular Volume 87 FL (80-99) Mean Corpuscular Hemoglobin 30.3 PG (27.0-31.0) Mean Corpuscular Hemoglobin Concent 35.1 G/DL (32.0-36.0) Red Cell Distribution Width 12.0 % (11.6-14.8) Platelet Count 376 K/UL (150-450) Mean Platelet Volume 7.1 FL (6.5-10.1) Neutrophils (%) (Auto) % (45.0-75.0) Lymphocytes (%) (Auto) % (20.0-45.0) Monocytes (%) (Auto) % (1.0-10.0) Eosinophils (%) (Auto) % (0.0-3.0) Basophils (%) (Auto) % (0.0-2.0) Differential Total Cells Counted 100 Neutrophils % (Manual) 87 % (45-75) H Lymphocytes % (Manual) 5 % (20-45) L Monocytes % (Manual) 6 % (1-10) Eosinophils % (Manual) 0 % (0-3) Basophils % (Manual) 0 % (0-2) Band Neutrophils 2 % (0-8) Platelet Estimate Adequate Platelet Morphology Normal Red Blood Cell Morphology Normal Sodium Level 136 MMOL/L (136-145) Potassium Level 3.9 MMOL/L (3.5-5.1) Chloride Level 101 MMOL/L (98-107) Carbon Dioxide Level 34 MMOL/L (21-32) H Anion Gap 1 mmol/L (5-15) L Blood Urea Nitrogen 14 mg/dL (7-18) Creatinine 0.7 MG/DL (0.55-1.30) Estimat Glomerular Filtration Rate > 60 mL/min (>60) Glucose Level 254 MG/DL (74-106) H Calcium Level 8.2 MG/DL (8.5-10.1) L Triglycerides Level 214 MG/DL (30-150) H Lipase 542 U/L (73-393) H Arterial Blood pH 7.429 (7.350-7.450) Arterial Blood Partial Pressure CO2 51.6 mmHg (35.0-45.0) H Arterial Blood Partial Pressure O2 52.0 mmHg (75.0-100.0) L Arterial Blood HCO3 33.4 mmol/L (22.0-26.0) H Arterial Blood Oxygen Saturation 88.2 % (95-100) *L Arterial Blood Base Excess 7.4 (-2-2) H Jacob Test Positive POC Whole Blood Glucose Pending Assessment/Plan Assessment/Plan Covid 19 PNA K.pneumonia PNA Acute respiratory failure with severe Hypoxia Sinus bradycardia 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 Abx per ID Continuous cardiac monitoring Anticoagulation and steroid rx Titrate oxygen as able; prone. Anti-viral rx Protein suppl Insulin cov'g by SS; levemir dose advanced further. Stress test once Covid-free to check chronotropic competence. Chuck Swain MD Jul 25, 2020 00:51
[2020-07-25] MEDS: NovoLOG Insulin Flexpen SUBQ SCH ×6 (01:00→21:09)
--- NOTE | 2020-07-25 02:00 | NUR ---
NURSE NOTES: Patient in bed in prone position. No s/s of acute distress noted. patient orally intubated Fi02 100% satting 98%. BP 141/77 HR 95. Biswas draining. Temp 100.0 rectally continue cooling measure. No s/s of hypo/hyperglycemia. Left upper arm PICC line intact infusing Fentanyl 350mcg/hr, Versed drip at 8 mg/hr and D51/2 NS at 60cc/hr RASS score -2. no s/s of hypo/hyperglycemia. Covid +. Airborne precaution maintained and observed. will continue plan of care.
[2020-07-25] MEDS: Midazolam HCl 50mg/10ml vial 50 MG in NS 90 ML IV PRN ×3 (02:54→18:07)
--- NOTE | 2020-07-25 04:00 | NUR ---
NURSE NOTES: Patient in bed in prone position. No s/s of acute distress noted. patient orally intubated Fi02 100% satting 98%. BP 137/76, HR 95. Biswas draining. Temp 100.0 rectally continue cooling measure. No s/s of hypo/hyperglycemia. Left upper arm PICC line intact infusing Fentanyl 350mcg/hr, Versed drip at 8 mg/hr and D51/2 NS at 60cc/hr RASS score -2. no s/s of hypo/hyperglycemia. Covid +. Airborne precaution maintained and observed. will continue plan of care.
--- NOTE | 2020-07-25 05:00 | NUR ---
NURSE NOTES: Blood sugar 121mg/dl. no s/s of acute distress noted will continue plan of care.
[2020-07-25] MEDS: Piperacillin/Tazobactam 3.375 GM in NS 110 ML IVPB SCH (06:15)
[2020-07-25 06:44] LABS: BASOPHILS % (AUTO) 1.1 % (0.0-2.0); EOSINOPHILS % (AUTO) 1.9 % (0.0-3.0); HEMATOCRIT 49.1 % (42.0-52.0); LYMPHOCYTES % (AUTO) 11.3 % (20.0-45.0); MEAN CORPUSCULAR VOLUME 89 FL (80-99); MONOCYTES % (AUTO) 2.8 % (1.0-10.0); NEUTROPHILS % (AUTO) 82.9 % (45.0-75.0); PLATELET COUNT 352 K/UL (150-450); RED BLOOD COUNT 5.54 M/UL (4.70-6.10); RED CELL DISTRIBUTION WIDTH 12.7 % (11.6-14.8); WHITE BLOOD COUNT 15.2 K/UL (4.8-10.8)
[2020-07-25] MEDS: fentaNYL 2500mcg/NS 250ml 250 ML IV SCH ×2 (07:06→15:07)
--- NOTE | 2020-07-25 07:30 | NUR ---
HAND-OFF: Report given to Veronica THAPA.
--- NOTE | 2020-07-25 08:00 | NUR ---
NURSE NOTES: Pt was assessed after receiving change of shift report from Lisa THAPA. Pt is currently on prone position while orally intubated. Per warehouse worker 2nd shift report pt has been on prone position since 1730 yesterday evening (per MD order for 16hours). Pt is maintained -2 light sedation per RASS score while on Fentanyl and Versed Drips. Pt was received from warehouse worker 2nd shift nurse with Fentanyl infusing at 350mcg/hr, which was I decreased down to 300mcg since eMAR protocol states max rate to be 300mcg/hr. Versed drip is at 8mcg/hr. ETT 7.5 at 22cm/lipline, with with vent settings, AC22, VT500, Peep 10, FIO2 100%. O2Sat is currently fluctuating from 88 to 90% while pt is on prone position. ST on monitoring specialist. HR112. Temp 99F while pt is maintained on cooling blanket. OGT present, however feeding has been on hold while pt is on prone position. IV fluid D5 0.45NS is infusing at 60ml/hour while feeding is on hold, per MD order. Biswas catheter is present, draining dark yen/urine. Skin is intact. Bed is locked, three side rails up. Will continue to monitor pt and follow plan of care per MD orders and protocol.
--- NOTE | 2020-07-25 08:37 | Pulmonolgy Critical Care Note ---
Critical Care - Asmt/Plan Assessment/Plan: Pulmonary CCM Progress Noted Subjective ROS Limited/Unobtainable: Yes Constitutional: Reports: no symptoms Gastrointestinal/Abdominal: Reports: no symptoms Musculoskeletal: Denies: pain Allergies: Coded Allergies: No Known Allergies (Unverified , 03/08/17) All Systems: reviewed and negative except above Not candidate for Remdesivir - increased LFT's Intubated, on ACVC, CXR ETT satisfactory,bilateral infiltrates,PICC in position, Prone PRN-tolerating ABG improved,stableO2 sats Sedated on the ventilator Propofol/Fentenyl gtt Medications noted Objective Vital Signs noted PE deferred due to COVID 19 Laboratory Tests noted Assessment/Plan Assessment/Plan Acute hypoxemic respiratory failure In ICU on ventilator COVID pneumonia Asthma elevated liver enzymes PLAN ACVC ABG PRN monitor imaging PRN monitor ABG PRN decadron/Antivirals/AB per ID respiratory care Nutrition consult ID noted DVT prophylaxis taper FIO2 as able monitor respiratory status for change impression, plan, and exam edited and reviewed in detail care discussed with building estimator - Objective Last 24 Hour Vital Signs Date Time Temp Pulse Resp B/P (MAP) Pulse Ox O2 Delivery O2 Flow Rate FiO2 07/25/20 07:06 22 160/94 Mechanical Ventilator 15.0 100 07/25/20 07:05 22 160/94 Mechanical Ventilator 100 07/25/20 07:00 20 Mechanical Ventilator 100 07/25/20 07:00 22 165/84 Mechanical Ventilator 100 07/25/20 06:45 101 22 160/94 (116) 92 07/25/20 06:30 102 22 160/89 (112) 91 07/25/20 06:15 105 22 155/80 (105) 91 07/25/20 06:00 111 21 148/82 (104) 93 07/25/20 06:00 22 Mechanical Ventilator 100 07/25/20 06:00 22 155/80 Mechanical Ventilator 100 07/25/20 05:45 99 22 149/84 (105) 94 07/25/20 05:30 97 21 147/78 (101) 96 07/25/20 05:15 96 22 148/85 (106) 96 07/25/20 05:00 98 22 142/84 (103) 96 07/25/20 05:00 21 Mechanical Ventilator 100 07/25/20 05:00 21 142/84 Mechanical Ventilator 100 07/25/20 04:45 102 22 145/78 (100) 95 07/25/20 04:30 99 22 138/73 (94) 96 07/25/20 04:15 95 22 137/76 (96) 96 07/25/20 04:00 100 07/25/20 04:00 99 07/25/20 04:00 Mechanical Ventilator Mechanical Ventilator 07/25/20 04:00 98.7 96 22 136/83 (100) 96 07/25/20 04:00 22 Mechanical Ventilator 100 07/25/20 04:00 22 136/83 Mechanical Ventilator 100 07/25/20 03:45 97 22 140/76 (97) 96 07/25/20 03:30 98 22 100 07/25/20 03:30 95 22 136/76 (96) 96 07/25/20 03:15 98 22 141/83 (102) 97 07/25/20 03:00 22 Mechanical Ventilator 100 07/25/20 03:00 22 141/77 Mechanical Ventilator 100 07/25/20 03:00 96 22 135/78 (97) 96 07/25/20 02:54 22 Mechanical Ventilator 15.0 100 07/25/20 02:00 96 22 136/83 (100) 96 07/25/20 02:00 22 Mechanical Ventilator 100 07/25/20 02:00 22 141/77 Mechanical Ventilator 100 07/25/20 01:00 95 22 137/81 (99) 97 07/25/20 01:00 22 Mechanical Ventilator 100 07/25/20 01:00 22 138/81 Mechanical Ventilator 100 07/25/20 00:30 95 22 140/76 (97) 97 07/25/20 00:00 100 07/25/20 00:00 22 Mechanical Ventilator 100 07/25/20 00:00 22 134/76 Mechanical Ventilator 100 07/25/20 00:00 Mechanical Ventilator Mechanical Ventilator 07/25/20 00:00 99.9 95 22 141/72 (95) 98 07/25/20 00:00 95 07/24/20 23:33 22 134/76 Mechanical Ventilator 15.0 100 07/24/20 23:30 116 22 140/85 (103) 97 07/24/20 23:00 22 Mechanical Ventilator 100 07/24/20 23:00 22 136/78 Mechanical Ventilator 100 07/24/20 23:00 92 22 135/74 (94) 98 07/24/20 22:40 94 22 100 07/24/20 22:00 94 22 134/76 (95) 97 07/24/20 22:00 20 Mechanical Ventilator 100 07/24/20 22:00 22 145/77 Mechanical Ventilator 100 07/24/20 21:24 22 Mechanical Ventilator 15.0 100 07/24/20 21:23 20 Mechanical Ventilator 100 07/24/20 21:00 94 22 135/73 (93) 98 07/24/20 21:00 20 Mechanical Ventilator 100 07/24/20 21:00 22 139/73 Mechanical Ventilator 100 07/24/20 20:00 100 07/24/20 20:00 95 07/24/20 20:00 100.0 96 22 139/77 (97) 98 07/24/20 20:00 Mechanical Ventilator Mechanical Ventilator 07/24/20 20:00 20 Mechanical Ventilator 100 07/24/20 20:00 22 141/72 Mechanical Ventilator 100 07/24/20 19:19 100.7 07/24/20 19:00 98 22 134/75 (94) 99 07/24/20 19:00 22 Mechanical Ventilator 100 07/24/20 19:00 22 131/79 Mechanical Ventilator 100 07/24/20 18:45 100 22 131/79 (96) 99 07/24/20 18:43 100 22 100 07/24/20 18:30 103 22 134/73 (93) 98 07/24/20 18:15 103 22 138/82 (100) 98 07/24/20 18:00 22 Mechanical Ventilator 100 07/24/20 18:00 22 138/82 Mechanical Ventilator 100 07/24/20 18:00 105 22 142/84 (103) 97 07/24/20 17:45 111 22 147/70 (95) 94 07/24/20 17:30 123 22 146/71 (96) 93 07/24/20 17:23 115 07/24/20 17:15 130 23 138/66 (90) 92 07/24/20 17:00 22 Mechanical Ventilator 100 07/24/20 17:00 22 138/66 Mechanical Ventilator 100 07/24/20 17:00 108 21 102/55 (71) 98 07/24/20 16:45 102 21 99/48 (65) 99 07/24/20 16:30 22 Mechanical Ventilator 100 07/24/20 16:30 108 18 111/47 (68) 98 07/24/20 16:15 104 21 105/46 (65) 98 07/24/20 16:00 100 07/24/20 16:00 Mechanical Ventilator Mechanical Ventilator 07/24/20 16:00 25 Mechanical Ventilator 100 07/24/20 16:00 24 100/47 Mechanical Ventilator 100 07/24/20 16:00 117 07/24/20 16:00 100.4 108 21 100/47 (64) 98 07/24/20 15:45 112 21 109/48 (68) 97 07/24/20 15:45 25 Mechanical Ventilator 100 07/24/20 15:38 25 Mechanical Ventilator 100 07/24/20 15:30 116 24 114/58 (76) 96 07/24/20 15:15 116 25 119/40 (66) 96 07/24/20 15:00 115 33 149/69 (95) 84 07/24/20 15:00 25 113/48 Mechanical Ventilator 100 07/24/20 14:54 115 26 100 07/24/20 14:49 24 113/48 Mechanical Ventilator 100 07/24/20 14:45 112 24 113/48 (69) 97 07/24/20 14:45 25 119/40 Mechanical Ventilator 100 07/24/20 14:30 104 23 116/50 (72) 97 07/24/20 14:15 111 24 114/54 (74) 96 07/24/20 14:00 107 24 112/52 (72) 97 07/24/20 14:00 25 114/54 Mechanical Ventilator 100 07/24/20 13:45 110 23 121/57 (78) 97 07/24/20 13:30 114 25 122/55 (77) 97 07/24/20 13:15 102 22 115/48 (70) 98 07/24/20 13:00 25 115/48 Mechanical Ventilator 100 07/24/20 13:00 100.4 07/24/20 13:00 102 23 116/60 (78) 97 07/24/20 12:45 107 25 127/62 (83) 97 07/24/20 12:45 24 116/60 Mechanical Ventilator 100 07/24/20 12:30 107 26 131/53 (79) 97 07/24/20 12:15 101 24 133/67 (89) 97 07/24/20 12:00 100.5 115 26 134/70 (91) 93 07/24/20 12:00 25 133/67 Mechanical Ventilator 100 07/24/20 12:00 100 07/24/20 12:00 Mechanical Ventilator Mechanical Ventilator 07/24/20 12:00 109 07/24/20 11:45 99 24 123/62 (82) 97 07/24/20 11:30 103 24 125/64 (84) 96 07/24/20 11:30 24 123/62 Mechanical Ventilator 100 07/24/20 11:15 97 23 136/62 (86) 96 07/24/20 11:00 23 136/62 Mechanical Ventilator 100 07/24/20 11:00 112 27 138/65 (89) 93 07/24/20 10:45 104 28 160/74 (102) 89 07/24/20 10:40 104 31 100 07/24/20 10:30 102 25 132/67 (88) 93 07/24/20 10:30 28 160/74 Mechanical Ventilator 100 07/24/20 10:15 109 31 145/61 (89) 86 07/24/20 10:00 103 26 131/67 (88) 94 07/24/20 10:00 27 145/61 Mechanical Ventilator 100 07/24/20 09:45 101 25 143/64 (90) 94 07/24/20 09:30 91 24 133/61 (85) 97 07/24/20 09:30 34 143/64 Mechanical Ventilator 100 07/24/20 09:30 34 143/64 Mechanical Ventilator 100 07/24/20 09:15 88 25 124/60 (81) 98 07/24/20 09:00 102 21 128/72 (90) 99 07/24/20 09:00 25 124/60 Mechanical Ventilator 97 07/24/20 09:00 25 124/60 Mechanical Ventilator 100 07/24/20 08:45 84 24 115/65 (82) 99 Accucheck: 121 Critical Care - Subjective ROS Limited/Unobtainable: Yes Condition: critical IV Access: PICC EKG Rhythm: Sinus Rhythm FI02: 100 Vent Support Breath Rate: 22 Vent Support Mode: AC Vent Tidal Volume: 500 Sputum Amount: Small PEEP: 8.0 PIP: 39 Tube Feeding Amount: 20 I&O: Intake and Output 12/27/20 12/28/20 19:00 07:00 Intake Total 931.401 ml 1513.0 ml Output Total 765 ml 440 ml Balance 166.401 ml 1073.0 ml IV Total 691.401 ml 1513.0 ml Tube Feeding 240 ml Output Urine Total 765 ml 440 ml ET-Tube: 7.5 ET Position: 22 Chuck Ortega MD Jul 25, 2020 08:37
[2020-07-25] MEDS: Vitamin D 1000 units Tab GT SCH (09:52)
[2020-07-25] MEDS: Ascorbic Acid 500mg tab NG SCH ×2 (09:53→17:50)
[2020-07-25] MEDS: Pantoprazole Inj IVP SCH (09:53)
[2020-07-25] MEDS: Vitamin B Complex Tab NG SCH (09:53)
[2020-07-25] MEDS: Levemir Flexpen SUBQ SCH ×2 (09:54→17:51)
[2020-07-25] MEDS: Enoxaparin 80mg Inj SUBQ SCH ×2 (09:55→21:08)
--- NOTE | 2020-07-25 10:00 | NUR ---
NURSE NOTES: AM meds were administered. New Versed bag was dispensed from pharmacy to replace current bag that is now empty. New Versed bag will continue same rate at 8mcg/hr, since pt remains at -2 light sedation /per RASS score. Pt was suctioned.
--- NOTE | 2020-07-25 10:30 | NUR ---
NURSE NOTES: Report received from ELIER Martin. Pt lying comfortably in prone position with no signs of distress. Pt sedated to RASS -2, opens eyes, tracks with eyes, and follows simple commands, nodding yes or no. Respirations even and unlabored on mech vent. ETT 7.5 @ 22 cm at the lip with settings of AC22, VT 500, peep of 10, and 100% Fio2. Sinus tachy on the monitor 118 beats/min. OGT noted and pt NPO status while prone. Pt denies pain at this time. Left upper arm PICC patent, running fentanyl and versed drips. Pt skin dry and intact. Pt calm and cooperative, does not pull at tubes. Bed is in lowest position, brakes engaged, siderails x2, bed alarm on, and call light within reach. Pt in stable condition; will continue to monitor .
--- NOTE | 2020-07-25 11:43 | NUR ---
NURSE NOTES: pt turned back to supine position safely. Vitals stable as documented. Dextrose IV fluids stopped and tube feeding started at 20 ml/hr.
[2020-07-25] MEDS: Acetaminophen 650 MG SUPP RECTAL PRN (11:49)
--- NOTE | 2020-07-25 12:25 | Infectious Diseases Prog Note ---
Assessment/Plan Assessment/Plan antibiotics : zosyn A 1. COVID-19 pneumonia on 100 % Fi O2 of oxygen with O2 saturation 97 %. s/p ivermectin x 2 2. History of asthma. 3. Elevated liver function tests improving 4. klebsiella pneumonia P 1. d/c zosyn 2. start ceftriaxone 3. Continue solumedrol 4. Continue isolation. Subjective ROS Limited/Unobtainable: Yes Allergies: Coded Allergies: No Known Allergies (Unverified , 03/08/17) Objective Last 24 Hour Vital Signs Date Time Temp Pulse Resp B/P (MAP) Pulse Ox O2 Delivery O2 Flow Rate FiO2 07/25/20 09:56 24 Mechanical Ventilator 15.0 100 07/25/20 07:29 112 24 100 07/25/20 07:06 22 160/94 Mechanical Ventilator 15.0 100 07/25/20 07:05 22 160/94 Mechanical Ventilator 100 07/25/20 07:00 20 Mechanical Ventilator 100 07/25/20 07:00 22 165/84 Mechanical Ventilator 100 07/25/20 06:45 101 22 160/94 (116) 92 07/25/20 06:30 102 22 160/89 (112) 91 07/25/20 06:15 105 22 155/80 (105) 91 07/25/20 06:00 111 21 148/82 (104) 93 07/25/20 06:00 22 Mechanical Ventilator 100 07/25/20 06:00 22 155/80 Mechanical Ventilator 100 07/25/20 05:45 99 22 149/84 (105) 94 07/25/20 05:30 97 21 147/78 (101) 96 07/25/20 05:15 96 22 148/85 (106) 96 07/25/20 05:00 98 22 142/84 (103) 96 07/25/20 05:00 21 Mechanical Ventilator 100 07/25/20 05:00 21 142/84 Mechanical Ventilator 100 07/25/20 04:45 102 22 145/78 (100) 95 07/25/20 04:30 99 22 138/73 (94) 96 07/25/20 04:15 95 22 137/76 (96) 96 07/25/20 04:00 100 07/25/20 04:00 99 07/25/20 04:00 Mechanical Ventilator Mechanical Ventilator 07/25/20 04:00 98.7 96 22 136/83 (100) 96 07/25/20 04:00 22 Mechanical Ventilator 100 07/25/20 04:00 22 136/83 Mechanical Ventilator 100 07/25/20 03:45 97 22 140/76 (97) 96 07/25/20 03:30 98 22 100 07/25/20 03:30 95 22 136/76 (96) 96 07/25/20 03:15 98 22 141/83 (102) 97 07/25/20 03:00 22 Mechanical Ventilator 100 07/25/20 03:00 22 141/77 Mechanical Ventilator 100 07/25/20 03:00 96 22 135/78 (97) 96 07/25/20 02:54 22 Mechanical Ventilator 15.0 100 07/25/20 02:00 96 22 136/83 (100) 96 07/25/20 02:00 22 Mechanical Ventilator 100 07/25/20 02:00 22 141/77 Mechanical Ventilator 100 07/25/20 01:00 95 22 137/81 (99) 97 07/25/20 01:00 22 Mechanical Ventilator 100 07/25/20 01:00 22 138/81 Mechanical Ventilator 100 07/25/20 00:30 95 22 140/76 (97) 97 07/25/20 00:00 100 07/25/20 00:00 22 Mechanical Ventilator 100 07/25/20 00:00 22 134/76 Mechanical Ventilator 100 07/25/20 00:00 Mechanical Ventilator Mechanical Ventilator 07/25/20 00:00 99.9 95 22 141/72 (95) 98 07/25/20 00:00 95 07/24/20 23:33 22 134/76 Mechanical Ventilator 15.0 100 07/24/20 23:30 116 22 140/85 (103) 97 07/24/20 23:00 22 Mechanical Ventilator 100 07/24/20 23:00 22 136/78 Mechanical Ventilator 100 07/24/20 23:00 92 22 135/74 (94) 98 07/24/20 22:40 94 22 100 07/24/20 22:00 94 22 134/76 (95) 97 07/24/20 22:00 20 Mechanical Ventilator 100 07/24/20 22:00 22 145/77 Mechanical Ventilator 100 07/24/20 21:24 22 Mechanical Ventilator 15.0 100 07/24/20 21:23 20 Mechanical Ventilator 100 07/24/20 21:00 94 22 135/73 (93) 98 07/24/20 21:00 20 Mechanical Ventilator 100 07/24/20 21:00 22 139/73 Mechanical Ventilator 100 07/24/20 20:00 100 07/24/20 20:00 95 07/24/20 20:00 100.0 96 22 139/77 (97) 98 07/24/20 20:00 Mechanical Ventilator Mechanical Ventilator 07/24/20 20:00 20 Mechanical Ventilator 100 07/24/20 20:00 22 141/72 Mechanical Ventilator 100 07/24/20 19:19 100.7 07/24/20 19:00 98 22 134/75 (94) 99 07/24/20 19:00 22 Mechanical Ventilator 100 07/24/20 19:00 22 131/79 Mechanical Ventilator 100 07/24/20 18:45 100 22 131/79 (96) 99 07/24/20 18:43 100 22 100 07/24/20 18:30 103 22 134/73 (93) 98 07/24/20 18:15 103 22 138/82 (100) 98 07/24/20 18:00 22 Mechanical Ventilator 100 07/24/20 18:00 22 138/82 Mechanical Ventilator 100 07/24/20 18:00 105 22 142/84 (103) 97 07/24/20 17:45 111 22 147/70 (95) 94 07/24/20 17:30 123 22 146/71 (96) 93 07/24/20 17:23 115 07/24/20 17:15 130 23 138/66 (90) 92 07/24/20 17:00 22 Mechanical Ventilator 100 07/24/20 17:00 22 138/66 Mechanical Ventilator 100 07/24/20 17:00 108 21 102/55 (71) 98 07/24/20 16:45 102 21 99/48 (65) 99 07/24/20 16:30 22 Mechanical Ventilator 100 07/24/20 16:30 108 18 111/47 (68) 98 07/24/20 16:15 104 21 105/46 (65) 98 07/24/20 16:00 100 07/24/20 16:00 Mechanical Ventilator Mechanical Ventilator 07/24/20 16:00 25 Mechanical Ventilator 100 07/24/20 16:00 24 100/47 Mechanical Ventilator 100 07/24/20 16:00 117 07/24/20 16:00 100.4 108 21 100/47 (64) 98 07/24/20 15:45 112 21 109/48 (68) 97 07/24/20 15:45 25 Mechanical Ventilator 100 07/24/20 15:38 25 Mechanical Ventilator 100 07/24/20 15:30 116 24 114/58 (76) 96 07/24/20 15:15 116 25 119/40 (66) 96 07/24/20 15:00 115 33 149/69 (95) 84 07/24/20 15:00 25 113/48 Mechanical Ventilator 100 07/24/20 14:54 115 26 100 07/24/20 14:49 24 113/48 Mechanical Ventilator 100 07/24/20 14:45 112 24 113/48 (69) 97 07/24/20 14:45 25 119/40 Mechanical Ventilator 100 07/24/20 14:30 104 23 116/50 (72) 97 07/24/20 14:15 111 24 114/54 (74) 96 07/24/20 14:00 107 24 112/52 (72) 97 07/24/20 14:00 25 114/54 Mechanical Ventilator 100 07/24/20 13:45 110 23 121/57 (78) 97 07/24/20 13:30 114 25 122/55 (77) 97 07/24/20 13:15 102 22 115/48 (70) 98 07/24/20 13:00 25 115/48 Mechanical Ventilator 100 07/24/20 13:00 100.4 07/24/20 13:00 102 23 116/60 (78) 97 07/24/20 12:45 107 25 127/62 (83) 97 07/24/20 12:45 24 116/60 Mechanical Ventilator 100 07/24/20 12:30 107 26 131/53 (79) 97 Height (Feet): 5 Height (Inches): 6.00 Weight (Pounds): 209 HEENT: other - intubated Laboratory Tests Test 07/24/20 12:33 07/24/20 21:29 07/25/20 06:20 07/25/20 08:06 POC Whole Blood Glucose Pending 162 MG/DL (74-106) H White Blood Count 15.2 K/UL (4.8-10.8) H Red Blood Count 5.54 M/UL (4.70-6.10) Hemoglobin 17.0 G/DL (14.2-18.0) Hematocrit 49.1 % (42.0-52.0) Mean Corpuscular Volume 89 FL (80-99) Mean Corpuscular Hemoglobin 30.7 PG (27.0-31.0) Mean Corpuscular Hemoglobin Concent 34.6 G/DL (32.0-36.0) Red Cell Distribution Width 12.7 % (11.6-14.8) Platelet Count 352 K/UL (150-450) Mean Platelet Volume 6.7 FL (6.5-10.1) Neutrophils (%) (Auto) 82.9 % (45.0-75.0) H Lymphocytes (%) (Auto) 11.3 % (20.0-45.0) L Monocytes (%) (Auto) 2.8 % (1.0-10.0) Eosinophils (%) (Auto) 1.9 % (0.0-3.0) Basophils (%) (Auto) 1.1 % (0.0-2.0) Arterial Blood pH 7.304 (7.350-7.450) Arterial Blood Partial Pressure CO2 64.9 mmHg (35.0-45.0) *H Arterial Blood Partial Pressure O2 56.2 mmHg (75.0-100.0) L Arterial Blood HCO3 31.5 mmol/L (22.0-26.0) H Arterial Blood Oxygen Saturation 88.9 % (95-100) *L Arterial Blood Base Excess 2.9 (-2-2) H Jacob Test Positive Current Medications Medications (Trade) Dose Ordered Sig/Milagro Route PRN Reason Start Time Stop Time Status Last Admin Dose Admin Acetaminophen (Tylenol) 500 mg Q4H PRN ORAL Mild Pain (Pain Scale 1-3) 07/09/20 21:45 08/08/20 21:44 07/24/20 12:30 Acetaminophen (Tylenol) 650 mg Q4H PRN RECTAL Mild Pain (Pain Scale 1-3) 07/24/20 18:15 08/23/20 18:14 07/25/20 11:49 Albuterol/ Ipratropium (Combivent Respimat) 2 puff Q2H PRN INH Shortness of Breath 07/09/20 21:45 08/08/20 21:44 07/19/20 09:17 Ascorbic Acid (Vitamin C) 500 mg TWICE A DAY NG 07/24/20 09:00 08/10/20 08:59 07/25/20 09:53 Chlorhexidine Gluconate (Marycarmen-Hex 2%) 1 applic DAILY@2000 TOPIC 07/20/20 20:00 10/18/20 19:59 07/24/20 20:55 Dextrose (Dextrose 50%) 25 ml Q30M PRN IV Hypoglycemia 07/23/20 13:15 10/21/20 13:14 Dextrose (Dextrose 50%) 50 ml Q30M PRN IV Hypoglycemia 07/23/20 13:15 10/21/20 13:14 Dextrose/Sodium Chloride 1,000 ml @ 60 mls/hr [id number] PRN IV WHILE PRONING ONLY 07/24/20 17:45 08/23/20 17:44 07/24/20 18:01 Enoxaparin Sodium (Lovenox) 40 mg Q12HR SUBQ 07/24/20 21:30 10/22/20 21:29 07/25/20 09:55 Fentanyl Citrate 250 ml @ 1 mls/hr Q24H IV 07/24/20 12:45 07/26/20 12:44 07/25/20 07:06 Insulin Aspart (NovoLOG) Q4HR SUBQ 07/23/20 16:00 10/21/20 15:59 07/24/20 21:51 Insulin Detemir (Levemir) 26 units BID SUBQ 07/23/20 18:00 10/20/20 08:59 07/25/20 09:54 Midazolam HCl 50 mg/Sodium Chloride 100 ml @ 0 mls/hr Q24H PRN IV SEDATION 07/24/20 14:30 07/26/20 14:29 07/25/20 09:56 Ondansetron HCl (Zofran) 4 mg Q6H PRN IVP Nausea & Vomiting 07/09/20 21:45 08/08/20 21:44 Pantoprazole (Protonix) 40 mg DAILY IVP 07/25/20 09:00 08/24/20 08:59 07/25/20 09:53 Piperacillin Sod/ Tazobactam Sod 3.375 gm/Sodium Chloride 110 ml @ 27.5 mls/hr Q8HR IVPB 07/23/20 11:00 07/30/20 10:59 07/25/20 06:15 Promethazine HCl/ Codeine (Phenergan with Codeine) 5 ml Q4H PRN ORAL For Cough 07/11/20 15:15 08/10/20 15:14 07/17/20 22:22 Vitamin B Complex (Vitamin B Complex) 1 tab DAILY NG 07/24/20 09:00 10/09/20 08:59 07/25/20 09:53 Vitamin D (Vitamin D) 1,000 unit DAILY GT 07/24/20 09:00 08/13/20 09:29 07/25/20 09:52 Jose Alberto MD Jul 25, 2020 12:25
[2020-07-25] MEDS: Solu-MEDROL 40mg Inj IVP SCH ×2 (12:56→21:07)
[2020-07-25] MEDS: cefTRIAXone 1 GM in D5W 55 ML IVPB SCH (12:56)
--- NOTE | 2020-07-25 13:30 | NUR ---
NURSE NOTES: Pt repositioned, oral care done. Pt suctioned. Pt in stable condition with stable vitals. No acute distress noted.
--- NOTE | 2020-07-25 16:05 | NUR ---
NURSE NOTES: pt repositioned. oral care done. Pt suctioned. OGT checked again for placement. residual checked = 30 ml. Feeding continued @ 30 ml/hr.
--- NOTE | 2020-07-25 16:20 | NUR ---
CASE MANAGEMENT:REVIEW 07/25/20 SI: COVID PNA. RESPIRATORY FAILURE~ INTUBATED 99.0 121 21 147/68 95% ON VENT SUPPORT W/100% FIO2 WBC+15.2 IS: IV ROCEPHIN Q24 IV SOLUMEDROL Q12 LOVENOX SQ Q12 VERSED GTT PRN FENTANYL GTT Q24 : ICU STATUS DCP: FROM HOME
--- NOTE | 2020-07-25 17:55 | NUR ---
NURSE NOTES: O2 saturation 90%. Feeding stopped.
--- NOTE | 2020-07-25 18:32 | NUR ---
NURSE NOTES: pt desaturating to 80% on same vent settings. RT called. Pt suctioned. No secretions noted. Dr. Ortega called. Per Dr. Ortega, change peep to 12. Feeding residual 20 ml. Feeding stopped. Per DR. Ortega, prone patient TORIBIO. Awaiting 3 staff members to help prone patient.
--- NOTE | 2020-07-25 18:45 | NUR ---
NURSE NOTES: RT at bedside suctioning patient.
--- NOTE | 2020-07-25 18:46 | NUR ---
INSURANCE CLINICALS/REVIEW FAXED TO P [phone] F [phone] [facility] P [phone] F [phone]
--- NOTE | 2020-07-25 19:15 | NUR ---
NURSE NOTES: O2 sat in the 70s with increased WOB. With 3 staff assist, pt put in prone position.
--- NOTE | 2020-07-25 19:45 | NUR ---
NURSE NOTES: After proning patient, patient became more tachycardic to the 150s and O2 sat dropped to 55%. RR in the 40s. Pt still able to nod yes or no. Dr. Ortega made aware. Per MD, turn patient back supine, state CXR and increased Peep to 14. orders noted and carried out.
--- NOTE | 2020-07-25 19:50 | NUR ---
NURSE NOTES: After proning patient, then turning him supine again, OGT pulled out in process.
--- NOTE | 2020-07-25 19:55 | NUR ---
NURSE NOTES: Received pt in bed, on vent via ETT saturating between 60's- low 80's on 100% FiO2 and peep of 14. Pt tachycardic at 140'S-160'S. Pt sedated with Fentanyl infusing at 200mcg/hr and versed @ 8mg/hr via DANIEL PICC. Biswas cath in place draining yellow urine. Feeding on hold as OGT was pulled out when pt was tried on prone position earlier which pt did not tolerate.
--- NOTE | 2020-07-25 20:00 | NUR ---
NURSE NOTES: cxr @ bedside
--- NOTE | 2020-07-25 20:05 | NUR ---
NURSE HAND-OFF REPORT: Latest Vital Signs: Temperature 99.0 , Pulse 121 , B/P 178 /86 , Respiratory Rate 23 , O2 SAT 94 , Mechanical Ventilator, O2 Flow Rate . Vital Sign Comment: EKG Rhythm: Sinus Tachycardia Rhythm change?: N Notified?: Ildefonso Cherry MD Response: Latest Bradley Fall Score: 30 Fall Risk: Medium Risk Safety Measures: Call light Within Reach, Bed Alarm Zone 2, Side Rails Side Rails x2, Bed position Low and Locked. Fall Precautions: Yellow Socks Yellow Gown Patient Fall Education Report given to ELIER Qureshi.
--- NOTE | 2020-07-25 20:29 | Diagnostic Imaging Report ---
EXAM: XR Chest, 1 View CLINICAL HISTORY: SCREEN TECHNIQUE: Frontal view of the chest. COMPARISON: 07/24/2020 FINDINGS: Lungs: Unchanged bilateral diffuse pulmonary consolidations and low lung volumes. Pleural space: Unremarkable. No pneumothorax. Heart: Unremarkable. No cardiomegaly. Mediastinum: Unremarkable. Bones/joints: No acute abnormality Tubes, lines and devices: ETT 3.6 and ureters above [place]. Left upper extremity PICC with tip likely in the left atrium. Upper abdomen: Gas-filled distended stomach, consider decompression. IMPRESSION: 1. ETT 3.6 and ureters above [place]. 2. Left upper extremity PICC with tip likely in the left atrium. 3. Consider retraction of PICC approximately 3-4 centimeters to ensure tip is not extending into the left atrium. 4. Unchanged bilateral diffuse pulmonary consolidations and low lung volumes. 5. Gas-filled distended stomach, consider decompression.
[2020-07-25] MEDS: Dyna-Hex 2% Top Sol 2oz TOPIC SCH (21:07)
--- NOTE | 2020-07-25 22:00 | NUR ---
NURSE NOTES: Spoke to Dr. Ortega re: ABG result. Order to increase peep to 16 given and derecruitment done c/o RT. Informed also of pt's HR of 160's. lasix 2omg IV once ordered.
--- NOTE | 2020-07-25 22:15 | NUR ---
NURSE NOTES: Pt still tachycardic at 160's. Paged Dr. Swain for the 1st time.
--- NOTE | 2020-07-25 22:50 | NUR ---
NURSE NOTES: Pt re-intubated by Dr. Negrete as pt's cuff is busted accoding to RT Bin. Pt still satting on the 70's-80's post re intubation.
--- NOTE | 2020-07-25 23:10 | NUR ---
NURSE NOTES: Dr. Swain calls back after 3rd call. Says pt does not need anything for his sinus tachycardia at the moment since it is probably due to pt being hypoxic. Will continue to monitor pt.
--- NOTE | 2020-07-25 23:36 | Cardiology Progress Note ---
Subjective DATE OF SERVICE: Jul 25, 2020 Condition remains critical Increasingly hypoxic; worsening sinus tachycardia. He remains on full vent support, on 100% FIO2 - orally intubated. No LOC or syncope. ABG (07/25) 7.30/62/31 (100% FIO2) Objective Last 24 Hour Vital Signs Date Time Temp Pulse Resp B/P (MAP) Pulse Ox O2 Delivery O2 Flow Rate FiO2 07/25/20 23:05 161 22 100 07/25/20 22:00 167 33 130/98 (109) 51 07/25/20 21:00 147 30 149/92 (111) 67 07/25/20 20:00 145 07/25/20 20:00 100 07/25/20 20:00 139 30 151/83 (105) 70 07/25/20 19:00 121 28 135/60 (85) 73 07/25/20 18:32 121 23 100 07/25/20 18:30 115 25 178/86 (116) 94 07/25/20 18:22 26 122/65 Mechanical Ventilator 100 07/25/20 18:07 18 Mechanical Ventilator 100 07/25/20 18:07 28 145/65 Mechanical Ventilator 100 07/25/20 18:00 118 29 133/51 (78) 94 07/25/20 18:00 24 Mechanical Ventilator 100 07/25/20 17:52 19 117/62 Mechanical Ventilator 100 07/25/20 17:37 22 99/70 Mechanical Ventilator 100 07/25/20 17:30 117 26 117/62 (80) 94 07/25/20 17:22 22 99/52 Mechanical Ventilator 100 07/25/20 17:07 23 104/58 Mechanical Ventilator 93 07/25/20 17:00 23 Mechanical Ventilator 100 07/25/20 17:00 111 21 108/47 (67) 94 07/25/20 16:30 112 22 110/54 (72) 94 07/25/20 16:07 21 97/51 Mechanical Ventilator 100 07/25/20 16:00 115 19 107/48 (67) 97 07/25/20 16:00 113 07/25/20 16:00 Mechanical Ventilator Mechanical Ventilator 07/25/20 16:00 21 Mechanical Ventilator 100 07/25/20 16:00 100 07/25/20 15:29 117 29 100 07/25/20 15:07 26 100/56 Mechanical Ventilator 15.0 100 07/25/20 15:00 103 20 100/56 (71) 97 07/25/20 15:00 20 Mechanical Ventilator 100 07/25/20 15:00 20 105/57 Mechanical Ventilator 100 07/25/20 14:00 106 22 106/64 (78) 97 07/25/20 14:00 21 Mechanical Ventilator 100 07/25/20 14:00 21 96/60 Mechanical Ventilator 100 07/25/20 13:51 114 26 93 Mechanical Ventilator 100 07/25/20 13:30 21 113/66 Mechanical Ventilator 100 07/25/20 13:15 21 110/67 Mechanical Ventilator 100 07/25/20 13:00 111 21 107/62 (77) 95 07/25/20 13:00 20 Mechanical Ventilator 100 07/25/20 13:00 20 107/58 Mechanical Ventilator 100 07/25/20 12:30 111 21 128/73 (91) 95 07/25/20 12:19 99.0 07/25/20 12:00 114 21 135/73 (93) 95 07/25/20 12:00 Mechanical Ventilator Mechanical Ventilator 07/25/20 12:00 22 Mechanical Ventilator 100 07/25/20 12:00 22 124/76 Mechanical Ventilator 100 07/25/20 12:00 116 07/25/20 12:00 100 07/25/20 11:30 121 21 147/68 (94) 94 07/25/20 11:29 114 26 100 07/25/20 11:00 21 Mechanical Ventilator 100 07/25/20 11:00 21 162/83 Mechanical Ventilator 92 07/25/20 11:00 118 21 147/91 (109) 92 07/25/20 10:30 118 22 160/91 (114) 88 07/25/20 10:00 22 168/99 Mechanical Ventilator 100 07/25/20 10:00 121 22 162/92 (115) 88 07/25/20 09:56 24 Mechanical Ventilator 15.0 100 07/25/20 09:30 115 21 166/88 (114) 91 07/25/20 09:00 113 21 163/90 (114) 93 07/25/20 09:00 21 Mechanical Ventilator 100 07/25/20 09:00 21 136/97 Mechanical Ventilator 100 07/25/20 08:30 112 22 164/92 (116) 92 07/25/20 08:00 112 22 157/80 (105) 92 07/25/20 08:00 22 Mechanical Ventilator 100 07/25/20 08:00 22 162/84 Mechanical Ventilator 100 07/25/20 08:00 Mechanical Ventilator Mechanical Ventilator 07/25/20 08:00 106 07/25/20 07:30 106 22 157/90 (112) 92 07/25/20 07:29 112 24 100 07/25/20 07:06 22 160/94 Mechanical Ventilator 15.0 100 07/25/20 07:05 22 160/94 Mechanical Ventilator 100 07/25/20 07:00 104 22 165/84 (111) 91 07/25/20 07:00 20 Mechanical Ventilator 100 07/25/20 07:00 22 165/84 Mechanical Ventilator 100 07/25/20 06:45 101 22 160/94 (116) 92 07/25/20 06:30 102 22 160/89 (112) 91 07/25/20 06:15 105 22 155/80 (105) 91 07/25/20 06:00 111 21 148/82 (104) 93 07/25/20 06:00 22 Mechanical Ventilator 100 07/25/20 06:00 22 155/80 Mechanical Ventilator 100 07/25/20 05:45 99 22 149/84 (105) 94 07/25/20 05:30 97 21 147/78 (101) 96 07/25/20 05:15 96 22 148/85 (106) 96 07/25/20 05:00 98 22 142/84 (103) 96 07/25/20 05:00 21 Mechanical Ventilator 100 07/25/20 05:00 21 142/84 Mechanical Ventilator 100 07/25/20 04:45 102 22 145/78 (100) 95 07/25/20 04:30 99 22 138/73 (94) 96 07/25/20 04:15 95 22 137/76 (96) 96 07/25/20 04:00 100 07/25/20 04:00 99 07/25/20 04:00 Mechanical Ventilator Mechanical Ventilator 07/25/20 04:00 98.7 96 22 136/83 (100) 96 07/25/20 04:00 22 Mechanical Ventilator 100 07/25/20 04:00 22 136/83 Mechanical Ventilator 100 07/25/20 03:45 97 22 140/76 (97) 96 07/25/20 03:30 98 22 100 07/25/20 03:30 95 22 136/76 (96) 96 07/25/20 03:15 98 22 141/83 (102) 97 07/25/20 03:00 22 Mechanical Ventilator 100 07/25/20 03:00 22 141/77 Mechanical Ventilator 100 07/25/20 03:00 96 22 135/78 (97) 96 07/25/20 02:54 22 Mechanical Ventilator 15.0 100 07/25/20 02:00 96 22 136/83 (100) 96 07/25/20 02:00 22 Mechanical Ventilator 100 07/25/20 02:00 22 141/77 Mechanical Ventilator 100 07/25/20 01:00 95 22 137/81 (99) 97 07/25/20 01:00 22 Mechanical Ventilator 100 07/25/20 01:00 22 138/81 Mechanical Ventilator 100 07/25/20 00:30 95 22 140/76 (97) 97 07/25/20 00:00 100 07/25/20 00:00 22 Mechanical Ventilator 100 07/25/20 00:00 22 134/76 Mechanical Ventilator 100 07/25/20 00:00 Mechanical Ventilator Mechanical Ventilator 07/25/20 00:00 99.9 95 22 141/72 (95) 98 07/25/20 00:00 95 HEENT: Orally intubated, Mechanically Ventilated, Thin secretions ET Tube RHYTHM: SB LUNGS: bilateral rhonchi CARDIAC: regular rhythm, normal S1 and S2, bradycardia ABDOMEN: normal bowel sounds, non tender, soft EXTREMITIES: normal range of motion, non-tender Laboratory Tests Test 07/25/20 06:20 07/25/20 08:06 07/25/20 20:38 07/25/20 21:38 White Blood Count 15.2 K/UL (4.8-10.8) H Red Blood Count 5.54 M/UL (4.70-6.10) Hemoglobin 17.0 G/DL (14.2-18.0) Hematocrit 49.1 % (42.0-52.0) Mean Corpuscular Volume 89 FL (80-99) Mean Corpuscular Hemoglobin 30.7 PG (27.0-31.0) Mean Corpuscular Hemoglobin Concent 34.6 G/DL (32.0-36.0) Red Cell Distribution Width 12.7 % (11.6-14.8) Platelet Count 352 K/UL (150-450) Mean Platelet Volume 6.7 FL (6.5-10.1) Neutrophils (%) (Auto) 82.9 % (45.0-75.0) H Lymphocytes (%) (Auto) 11.3 % (20.0-45.0) L Monocytes (%) (Auto) 2.8 % (1.0-10.0) Eosinophils (%) (Auto) 1.9 % (0.0-3.0) Basophils (%) (Auto) 1.1 % (0.0-2.0) Arterial Blood pH 7.304 (7.350-7.450) 7.303 (7.350-7.450) Arterial Blood Partial Pressure CO2 64.9 mmHg (35.0-45.0) *H 61.9 mmHg (35.0-45.0) *H Arterial Blood Partial Pressure O2 56.2 mmHg (75.0-100.0) L 31.2 mmHg (75.0-100.0) Arterial Blood HCO3 31.5 mmol/L (22.0-26.0) H 30.0 mmol/L (22.0-26.0) H Arterial Blood Oxygen Saturation 88.9 % (95-100) *L 59.9 % (95-100) *L Arterial Blood Base Excess 2.9 (-2-2) H 1.7 (-2-2) Jacob Test Positive Positive POC Whole Blood Glucose Pending Assessment/Plan Assessment/Plan Covid 19 PNA Secondary sinus tachycardia K.pneumonia PNA Acute respiratory failure with severe Hypoxia Sinus bradycardia resolved Diabetes mellitus with hyperglycemia due to steroids Transaminitis Mod protein/calorie malnutrition CRITICAL & GUARDED Abx per ID Continuous cardiac monitoring Anticoagulation and steroid rx Titrate oxygen as able; prone. Vent settings adjusted by pulmonary Anti-viral rx Protein suppl Insulin cov'g by SS; levemir dose advanced further. Stress test once Covid-free to check chronotropic competence. Chuck Swain MD Jul 25, 2020 23:36
[2020-07-26] VITALS (39 sets, daily range): BP systolic 101–177; BP diastolic 29–100
--- NOTE | 2020-07-26 | NUR ---
NURSE NOTES: Pt saturating between 80's-90's. Pt temp now is 103.7. Cooling measures initiated and OGT re inserted. Stat KUB ordered.
--- NOTE | 2020-07-26 00:32 | Diagnostic Imaging Report ---
EXAM: XR Chest, 1 View CLINICAL HISTORY: TUBE PLCMT TECHNIQUE: Frontal view of the chest. COMPARISON: Same day. Radiographs at 1955 hrs. FINDINGS: Lungs: Similar extensive bilateral pulmonary consolidations with low lung volumes. Pleural space: Unremarkable. No pneumothorax. Heart: Unremarkable. No cardiomegaly. Mediastinum: Unremarkable. Bones/joints: No acute abnormality Tubes, lines and devices: ETT 3.8 cm above bl[place]. Left upper extremity PICC , tip at the superior cavoatrial junction. Upper abdomen: Markedly distended gastric bubble, consider decompression. IMPRESSION: 1. ETT 3.8 cm above blaien. 2. Left upper extremity PICC , tip at the superior cavoatrial junction. 3. Markedly distended gastric bubble, consider decompression. 4. Similar extensive bilateral pulmonary consolidations with low lung volumes.
--- NOTE | 2020-07-26 00:32 | Emergency Room Report ---
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 COVID-19 Screening: Positive COVID-19 COVID-19 Testing Source: 1 week ago Nursing Documentation-PMH Hx Cardiac Problems: No Hx Hypertension: Yes Hx Asthma: Yes Hx Cancer: No Hx Gastrointestinal Problems: No Hx Neurological Problems: No Physical Exam Vital Signs Date Time Temp Pulse Resp B/P (MAP) Pulse Ox O2 Delivery O2 Flow Rate FiO2 07/22/20 07:00 66 20 128/65 (86) 96 07/22/20 07:15 Mechanical Ventilator 100 07/22/20 08:00 99.4 07/22/20 09:42 15.0 Procedures Intubation Intubation : Consent: Emergent Tube Size (cm): 7.5 Medications: Etomidate, Rocuronium Breath Sounds after Intubation: equal Intubation Complications: no complications Post Intubation Xray: Yes Attempts: One Patient Tolerated: Well Complications: None Medical Decision Making Diagnostic Impression: Primary Impression: Coronavirus infection Additional Impressions: Respiratory failure Hypoxia ER Course Total critical care time: Approximately 25 minutes Due to a high probability of clinically significant, life threatening deterioration, the patient required the highest level of preparedness to intervene emergently and I personally spent this critical care time directly and personally managing the patient. This critical care time included obtaining a history, examining the patient, pulse oximetry, ordering and reviewing studies, ordering treatments, evaluating response to treatment and updating management plan as needed, frequent reassessment and discussion with other providers as well as arranging for ultimate disposition. This critical to care time was performed to assess and manage the high probability of life-threatening deterioration that could result in multiorgan failure. This critical care time is separate from the separately billable procedures and treating other patients. I was called to the patient's room because he was desatting despite being intubated. When I arrived alert with video laryngoscope to see that the endotracheal tube had become dislodged. Patient was reintubated as described above. No complications. Last Vital Signs Date Time Temp Pulse Resp B/P (MAP) Pulse Ox O2 Delivery O2 Flow Rate FiO2 07/26/20 00:00 Mechanical Ventilator Mechanical Ventilator 12/28/20 23:05 161 22 100 07/25/20 22:00 130/98 (109) 51 07/25/20 15:07 15.0 07/25/20 12:19 99.0 Disposition: ADMITTED INPATIENT Condition: Critical Referrals: NOT CHOSEN IPA/,REFERRING (PCP) Florentino Negrete M.D. Jul 26, 2020 00:32
[2020-07-26] MEDS: NovoLOG Insulin Flexpen SUBQ SCH ×6 (00:40→20:12)
[2020-07-26] MEDS: Midazolam HCl 50mg/10ml vial 50 MG in NS 90 ML IV PRN ×4 (00:52→21:12)
--- NOTE | 2020-07-26 02:00 | NUR ---
NURSE NOTES: Pt's condition remains unchanged. Will continue to monitor pt.
--- NOTE | 2020-07-26 02:05 | Diagnostic Imaging Report ---
EXAM: XR Abdomen, 2 Views CLINICAL HISTORY: TUBE PLCMT TECHNIQUE: Frontal view of the abdomen/pelvis with upright view of the abdomen. COMPARISON: 07/20/2020 FINDINGS: Lower thorax: Bibasilar pulmonary opacities. Intraperitoneal space: Scattered bowel gas, no pneumoperitoneum. Gastrointestinal tract: Unremarkable. No dilation. Bones/joints: Unremarkable. Tubes, lines and devices: Enteric tube with tip and proximal sideport below the gastroesophageal junction. IMPRESSION: 1. Enteric tube with tip and proximal sideport below the gastroesophageal junction. 2. Bibasilar pulmonary opacities. 3. Scattered bowel gas, no pneumoperitoneum.
[2020-07-26] MEDS: fentaNYL 2500mcg/NS 250ml 250 ML IV SCH ×3 (03:19→15:24)
--- NOTE | 2020-07-26 04:00 | NUR ---
NURSE NOTES: Pt's condition unchanged. Pt still saturating between 80's to 90's but stays mostly on the 80's. Will continue to monitor pt.
[2020-07-26 05:49] LABS: HEMATOCRIT 44.8 % (42.0-52.0); HEMOGLOBIN 14.9 G/DL (14.2-18.0); MEAN CORPUSCULAR VOLUME 93 FL (80-99); PLATELET COUNT 259 K/UL (150-450); RED BLOOD COUNT 4.82 M/UL (4.70-6.10); RED CELL DISTRIBUTION WIDTH 12.8 % (11.6-14.8); WHITE BLOOD COUNT 20.1 K/UL (4.8-10.8)
--- NOTE | 2020-07-26 07:20 | NUR ---
NURSE HAND-OFF REPORT: Latest Vital Signs: Temperature 97.6 , Pulse 115 , B/P 109 /74 , Respiratory Rate 23 , O2 SAT 90 , Mechanical Ventilator, O2 Flow Rate . Vital Sign Comment: stable EKG Rhythm: Sinus Tachycardia Rhythm change?: N Notified?: Ildefonso Cherry MD Response: Latest Bradley Fall Score: 30 Fall Risk: Medium Risk Safety Measures: Call light Within Reach, Bed Alarm Zone 2, Side Rails Side Rails x2, Bed position Low and Locked. Fall Precautions: Yellow Socks Yellow Gown Patient Fall Education Report given to ELIER Castro.
--- NOTE | 2020-07-26 07:21 | NUR ---
NURSE NOTES: Received pt from Jere Alvarado RN. Patientt VS stable at this time. Patient intubated and lightly sedated on 100% FiO2. Patient tolerating with no sign of distress. SpO2 90% at this time. Patient RASS score -2. Patient calm and cooperative. Pt moves all ext. Pupils equal, PERRLA. Patient on versed and fentanyl drip. Oral gastric tube in place and verified by air auscultation and running vital AF 1.2 at 30mL/hr. No residual noted.Biswas in place. clear, yellow urine noted. skin intact. PICC line noted on left upper arm. Dressing dry, intact, asymptomatic. Blood glucose remains elevated. Will follow up with levemir and novolog as scheduled and continue to monitor. Peripheral pulses equal and strong. Will cont to monitor. Airborne isolation observed.
--- NOTE | 2020-07-26 08:39 | NUR ---
NURSE NOTES: Dr. Mian Wing at bedside.
--- NOTE | 2020-07-26 08:42 | Infectious Diseases Prog Note ---
Assessment/Plan Assessment/Plan A: 1. COVID-19 pneumonia. 2. History of asthma. 3. Elevated liver function tests. 4. Fatty liver 5. DM with hyperglycemia 6. Leukocytosis worsening 7. Hypoxic respiratory failure 8. Klebsiella pneumonia PLAN: 1. Continue Methylprednisone 2. Continue isolation. 3. Continue Zosyn 4. Blood culture 5. Start on Vancomycin Subjective ROS Limited/Unobtainable: Yes Constitutional: Reports: fever, other - Bh=793.7 Respiratory: Reports: other - ET was replaced last night because of leaking Neurologic: Reports: other - on restraint Allergies: Coded Allergies: No Known Allergies (Unverified , 03/08/17) Objective Last 24 Hour Vital Signs Date Time Temp Pulse Resp B/P (MAP) Pulse Ox O2 Delivery O2 Flow Rate FiO2 07/26/20 08:00 98.8 114 28 103/67 (79) 07/26/20 08:00 100 07/26/20 08:00 Mechanical Ventilator Mechanical Ventilator 07/26/20 07:53 115 07/26/20 07:51 23 Mechanical Ventilator 100 07/26/20 07:00 115 23 109/74 (86) 90 07/26/20 06:22 22 99/72 Mechanical Ventilator 100 07/26/20 06:00 114 23 114/55 (74) 88 07/26/20 06:00 24 Mechanical Ventilator 100 07/26/20 05:22 25 112/82 Mechanical Ventilator 100 07/26/20 05:00 25 Mechanical Ventilator 100 07/26/20 05:00 117 24 111/77 (88) 87 07/26/20 04:22 22 103/67 Mechanical Ventilator 100 07/26/20 04:00 100 07/26/20 04:00 Mechanical Ventilator Mechanical Ventilator 07/26/20 04:00 25 Mechanical Ventilator 100 07/26/20 04:00 97.6 123 22 126/79 (95) 87 07/26/20 04:00 123 07/26/20 03:22 27 127/80 Mechanical Ventilator 100 07/26/20 03:19 23 127/80 Mechanical Ventilator 100 07/26/20 03:18 27 127/80 Mechanical Ventilator 100 07/26/20 03:00 27 Mechanical Ventilator 100 07/26/20 03:00 131 28 136/89 (105) 91 07/26/20 02:30 126 25 100 07/26/20 02:22 27 154/84 Mechanical Ventilator 100 07/26/20 02:00 24 Mechanical Ventilator 100 07/26/20 02:00 134 27 115/70 (85) 83 07/26/20 01:22 23 126/70 Mechanical Ventilator 100 07/26/20 01:00 26 Mechanical Ventilator 100 07/26/20 01:00 144 25 136/100 (112) 82 07/26/20 00:52 26 Mechanical Ventilator 100 07/26/20 00:22 25 145/25 Mechanical Ventilator 100 07/26/20 00:00 Mechanical Ventilator Mechanical Ventilator 07/26/20 00:00 100 07/26/20 00:00 26 Mechanical Ventilator 100 07/26/20 00:00 103.7 164 20 145/29 (67) 65 07/25/20 23:22 25 129/31 Mechanical Ventilator 100 07/25/20 23:05 161 22 100 07/25/20 23:00 159 22 129/87 (101) 61 07/25/20 23:00 24 Mechanical Ventilator 100 07/25/20 22:22 23 136/22 Mechanical Ventilator 100 07/25/20 22:00 26 Mechanical Ventilator 100 07/25/20 22:00 167 33 130/98 (109) 51 07/25/20 21:22 24 140/18 Mechanical Ventilator 100 07/25/20 21:00 147 30 149/92 (111) 67 07/25/20 21:00 25 Mechanical Ventilator 100 07/25/20 20:22 22 180/34 Mechanical Ventilator 100 07/25/20 20:00 145 07/25/20 20:00 100 07/25/20 20:00 18 Mechanical Ventilator 100 07/25/20 20:00 99.7 139 30 151/83 (105) 70 07/25/20 20:00 Mechanical Ventilator Mechanical Ventilator 07/25/20 19:22 25 120/28 Mechanical Ventilator 100 07/25/20 19:00 121 28 135/60 (85) 73 07/25/20 19:00 34 Mechanical Ventilator 100 07/25/20 18:32 121 23 100 07/25/20 18:30 115 25 178/86 (116) 94 07/25/20 18:22 26 122/65 Mechanical Ventilator 100 07/25/20 18:07 18 Mechanical Ventilator 100 07/25/20 18:07 28 145/65 Mechanical Ventilator 100 07/25/20 18:00 118 29 133/51 (78) 94 07/25/20 18:00 24 Mechanical Ventilator 100 07/25/20 17:52 19 117/62 Mechanical Ventilator 100 07/25/20 17:37 22 99/70 Mechanical Ventilator 100 07/25/20 17:30 117 26 117/62 (80) 94 07/25/20 17:22 22 99/52 Mechanical Ventilator 100 07/25/20 17:07 23 104/58 Mechanical Ventilator 93 07/25/20 17:00 23 Mechanical Ventilator 100 07/25/20 17:00 111 21 108/47 (67) 94 07/25/20 16:30 112 22 110/54 (72) 94 07/25/20 16:07 21 97/51 Mechanical Ventilator 100 07/25/20 16:00 115 19 107/48 (67) 97 07/25/20 16:00 113 07/25/20 16:00 Mechanical Ventilator Mechanical Ventilator 07/25/20 16:00 21 Mechanical Ventilator 100 07/25/20 16:00 100 07/25/20 15:29 117 29 100 07/25/20 15:07 26 100/56 Mechanical Ventilator 15.0 100 07/25/20 15:00 103 20 100/56 (71) 97 07/25/20 15:00 20 Mechanical Ventilator 100 07/25/20 15:00 20 105/57 Mechanical Ventilator 100 07/25/20 14:00 106 22 106/64 (78) 97 07/25/20 14:00 21 Mechanical Ventilator 100 07/25/20 14:00 21 96/60 Mechanical Ventilator 100 07/25/20 13:51 114 26 93 Mechanical Ventilator 100 07/25/20 13:30 21 113/66 Mechanical Ventilator 100 07/25/20 13:15 21 110/67 Mechanical Ventilator 100 07/25/20 13:00 111 21 107/62 (77) 95 07/25/20 13:00 20 Mechanical Ventilator 100 07/25/20 13:00 20 107/58 Mechanical Ventilator 100 07/25/20 12:30 111 21 128/73 (91) 95 07/25/20 12:19 99.0 07/25/20 12:00 114 21 135/73 (93) 95 07/25/20 12:00 Mechanical Ventilator Mechanical Ventilator 07/25/20 12:00 22 Mechanical Ventilator 100 07/25/20 12:00 22 124/76 Mechanical Ventilator 100 07/25/20 12:00 116 07/25/20 12:00 100 07/25/20 11:30 121 21 147/68 (94) 94 07/25/20 11:29 114 26 100 07/25/20 11:00 21 Mechanical Ventilator 100 07/25/20 11:00 21 162/83 Mechanical Ventilator 92 07/25/20 11:00 118 21 147/91 (109) 92 07/25/20 10:30 118 22 160/91 (114) 88 07/25/20 10:00 22 168/99 Mechanical Ventilator 100 07/25/20 10:00 121 22 162/92 (115) 88 07/25/20 09:56 24 Mechanical Ventilator 15.0 100 07/25/20 09:30 115 21 166/88 (114) 91 07/25/20 09:00 113 21 163/90 (114) 93 07/25/20 09:00 21 Mechanical Ventilator 100 07/25/20 09:00 21 136/97 Mechanical Ventilator 100 Height (Feet): 5 Height (Inches): 6.00 Weight (Pounds): 209 HEENT: other - orally intubated Respiratory/Chest: other - on ventilator, MTR9=620% Cardiovascular: tachycardia, other - PICC line Extremities: no edema Neurologic/Psychiatric: other - seadted Laboratory Tests Test 07/25/20 20:38 07/25/20 21:38 07/26/20 05:05 07/26/20 08:17 POC Whole Blood Glucose Pending Arterial Blood pH 7.303 (7.350-7.450) 7.313 (7.350-7.450) Arterial Blood Partial Pressure CO2 61.9 mmHg (35.0-45.0) *H 66.6 mmHg (35.0-45.0) *H Arterial Blood Partial Pressure O2 31.2 mmHg (75.0-100.0) 53.2 mmHg (75.0-100.0) L Arterial Blood HCO3 30.0 mmol/L (22.0-26.0) H 33.0 mmol/L (22.0-26.0) H Arterial Blood Oxygen Saturation 59.9 % (95-100) *L 86.1 % (95-100) *L Arterial Blood Base Excess 1.7 (-2-2) 4.4 (-2-2) H Jacob Test Positive Positive White Blood Count 20.1 K/UL (4.8-10.8) H Red Blood Count 4.82 M/UL (4.70-6.10) Hemoglobin 14.9 G/DL (14.2-18.0) Hematocrit 44.8 % (42.0-52.0) Mean Corpuscular Volume 93 FL (80-99) Mean Corpuscular Hemoglobin 30.8 PG (27.0-31.0) Mean Corpuscular Hemoglobin Concent 33.2 G/DL (32.0-36.0) Red Cell Distribution Width 12.8 % (11.6-14.8) Platelet Count 259 K/UL (150-450) Mean Platelet Volume 7.0 FL (6.5-10.1) Neutrophils (%) (Auto) % (45.0-75.0) Lymphocytes (%) (Auto) % (20.0-45.0) Monocytes (%) (Auto) % (1.0-10.0) Eosinophils (%) (Auto) % (0.0-3.0) Basophils (%) (Auto) % (0.0-2.0) Neutrophils % (Manual) Pending Lymphocytes % (Manual) Pending Platelet Estimate Pending Platelet Morphology Pending Current Medications Medications (Trade) Dose Ordered Sig/Milagro Route PRN Reason Start Time Stop Time Status Last Admin Dose Admin Acetaminophen (Tylenol) 650 mg Q4H PRN RECTAL Mild Pain (Pain Scale 1-3) 07/24/20 18:15 08/23/20 18:14 07/25/20 11:49 Acetaminophen (Tylenol) 650 mg Q6H PRN NG Mild Pain (Pain Scale 1-3) 07/26/20 08:30 08/25/20 08:29 Acetaminophen (Tylenol) 650 mg Q6H PRN NG Temp >100.5 07/26/20 08:30 08/25/20 08:29 Albuterol/ Ipratropium (Combivent Respimat) 2 puff Q2H PRN INH Shortness of Breath 07/09/20 21:45 08/08/20 21:44 07/19/20 09:17 Ascorbic Acid (Vitamin C) 500 mg TWICE A DAY NG 07/24/20 09:00 1/13/21 08:59 07/25/20 17:50 Ceftriaxone Sodium 1 gm/ Dextrose 55 ml @ 110 mls/hr Q24H IVPB 07/25/20 13:00 08/01/20 12:59 07/25/20 12:56 Chlorhexidine Gluconate (Marycarmen-Hex 2%) 1 applic DAILY@2000 TOPIC 07/20/20 20:00 10/18/20 19:59 07/25/20 21:07 Dextrose (Dextrose 50%) 25 ml Q30M PRN IV Hypoglycemia 07/23/20 13:15 10/21/20 13:14 Dextrose (Dextrose 50%) 50 ml Q30M PRN IV Hypoglycemia 07/23/20 13:15 10/21/20 13:14 Dextrose/Sodium Chloride 1,000 ml @ 60 mls/hr [id number] PRN IV WHILE PRONING ONLY 07/24/20 17:45 08/23/20 17:44 07/24/20 18:01 Enoxaparin Sodium (Lovenox) 40 mg Q12HR SUBQ 07/26/20 09:00 10/22/20 21:29 Fentanyl Citrate 250 ml @ 1 mls/hr Q24H IV 07/24/20 12:45 07/26/20 12:44 07/26/20 03:19 Insulin Aspart (NovoLOG) Q4HR SUBQ 07/23/20 16:00 10/21/20 15:59 07/26/20 05:00 Insulin Detemir (Levemir) 26 units EVERY 12 HOURS SUBQ 07/26/20 09:00 10/20/20 08:59 Methylprednisolone Sodium Succinate (Solu-MEDROL) 40 mg EVERY 12 HOURS IVP 07/25/20 12:30 10/23/20 12:29 07/25/20 21:07 Midazolam HCl 50 mg/Sodium Chloride 100 ml @ 0 mls/hr Q24H PRN IV SEDATION 07/24/20 14:30 07/26/20 14:29 07/26/20 07:51 Ondansetron HCl (Zofran) 4 mg Q6H PRN IVP Nausea & Vomiting 07/09/20 21:45 08/08/20 21:44 Pantoprazole (Protonix) 40 mg DAILY IVP 07/25/20 09:00 08/24/20 08:59 07/25/20 09:53 Promethazine HCl/ Codeine (Phenergan with Codeine) 5 ml Q4H PRN ORAL For Cough 07/11/20 15:15 08/10/20 15:14 07/17/20 22:22 Vitamin B Complex (Vitamin B Complex) 1 tab DAILY NG 07/24/20 09:00 10/09/20 08:59 07/25/20 09:53 Vitamin D (Vitamin D) 1,000 unit DAILY GT 07/24/20 09:00 08/13/20 09:29 07/25/20 09:52 Mian Wing MD Jul 26, 2020 08:42
--- NOTE | 2020-07-26 09:15 | NUR ---
CASE MANAGEMENT:REVIEW 07/26/20 SI: COVID PNA. RESPIRATORY FAILURE~ INTUBATED 98.8 114 28 103/67 90% ON VENT SUPPORT W/100% FIO2 WBC+20.1 PH-7.31 PCO2+66.6 PO2-53.2 HCO3+33.0 O2 SAT-86.1 IS: IV VANCOMYCIN Q8HRS IV ROCEPHIN Q24 IV SOLUMEDROL Q12 IVF@60/HR VERSED GTT FENTANYL GTT LOVENOX SQ Q12 : ICU STATUS DCP: FROM HOME
[2020-07-26] MEDS: Solu-MEDROL 40mg Inj IVP SCH ×2 (09:38→20:10)
[2020-07-26] MEDS: Pantoprazole Inj IVP SCH (09:38)
[2020-07-26] MEDS: Vitamin D 1000 units Tab GT SCH (09:38)
[2020-07-26] MEDS: Ascorbic Acid 500mg tab NG SCH ×2 (09:38→20:10)
[2020-07-26] MEDS: Vitamin B Complex Tab NG SCH (09:38)
[2020-07-26] MEDS: Levemir Flexpen SUBQ SCH ×2 (09:54→20:13)
--- NOTE | 2020-07-26 10:06 | NUR ---
NURSE NOTES: Noted board machine set up operator at bedside drawing blood specimen for blood culture ordered by Dr. Mian Wing.
[2020-07-26] MEDS: Vancomycin 1 GM in NS 275 ML IVPB SCH ×2 (10:39→17:57)
[2020-07-26] MEDS: Enoxaparin 40mg Inj SUBQ SCH ×2 (11:44→20:11)
--- NOTE | 2020-07-26 12:00 | NUR ---
NURSE NOTES: No signs and symptoms of hypoglycemia. tolerating tube feeding.
--- NOTE | 2020-07-26 13:12 | NUR ---
RD ASSESSMENT & RECOMMENDATIONS SEE CARE ACTIVITY FOR COMPLETE ASSESSMENT DAILY ESTIMATED NEEDS: Needs based on Critical care 72kg abw 22-28 kcals/kg 9628-4000 total kcals 1.2-2 g protein/kg 86-144 g total protein 25-30 mL/kg 3208-8322 total fluid mLs NUTRITION DIAGNOSIS: * Swallowing difficulty R/T respiratory failure as evidenced by pt now orally intubated, NPO. * Altered nutrition related lab values r/t hyperglycemia as evidenced by BG POC glu in the 300's, pt on Solumedrol CURRENT TF: Vital 1.2 @30ml/hr ENTERAL NUTRITION RECOMMENDATIONS: Vital 1.2 for critical care and carb control @ goal of 55ml/hr x24 hrs to provide 1320ml, 1584kcal, 99g prot, 1071ml free water - When medically stable for feeds, initiate Vital 1.2 for critical care andbcarb control. - Start @30ml/hr for 6 hrs, advance as tolerated 10ml/hr q4-6 hrs to goal - Flush per , HOB over 30 degrees Re-evaluate TF goal w/ propofol, now held. ADDITIONAL RECOMMENDATIONS: 1) Rec to check HgA1C for eval 2) Insulin regimen for improved BG- now on levemir + niss 3) Monitor resp status, currently on high flow O2 w/ good po intake Now intubated (07/20), TF recs as above 4) Monitor Diprivan rate for need to adjust TF goal rate Propofol now DC'd. 5) Bowel regimen, last bm 07/20
[2020-07-26] MEDS: cefTRIAXone 1 GM in D5W 55 ML IVPB SCH (14:31)
--- NOTE | 2020-07-26 18:19 | Pulmonolgy Critical Care Note ---
Critical Care - Asmt/Plan Assessment/Plan: Pulmonary CCM Progress Noted Subjective ROS Limited/Unobtainable: Yes Constitutional: Reports: no symptoms Gastrointestinal/Abdominal: Reports: no symptoms Musculoskeletal: Denies: pain Allergies: Coded Allergies: No Known Allergies (Unverified , 03/08/17) All Systems: reviewed and negative except above Not candidate for Remdesivir - increased LFT's Intubated, on ACVC, CXR ETT satisfactory,bilateral infiltrates,PICC in position, Prone PRN,not tolerating stableO2 sats currently Sedated on the ventilator Propofol/Fentenyl gtt Diuresis PRN Medications noted Objective Vital Signs noted PE deferred due to COVID 19 Laboratory Tests noted Assessment/Plan Assessment/Plan Acute hypoxemic respiratory failure In ICU on ventilator COVID pneumonia Asthma elevated liver enzymes PLAN ACVC ABG PRN monitor imaging PRN monitor ABG PRN decadron/Antivirals/AB per ID respiratory care Nutrition consult ID noted DVT prophylaxis taper FIO2 as able monitor respiratory status for change impression, plan, and exam edited and reviewed in detail care discussed with enterprise sales person - Objective Last 24 Hour Vital Signs Date Time Temp Pulse Resp B/P (MAP) Pulse Ox O2 Delivery O2 Flow Rate FiO2 07/26/20 18:00 99 29 140/65 (90) 88 07/26/20 17:45 93 27 120/68 (85) 86 07/26/20 17:30 91 35 127/67 (87) 87 07/26/20 17:15 93 25 126/75 (92) 86 07/26/20 17:00 94 25 126/79 (95) 87 07/26/20 17:00 25 Mechanical Ventilator 100 07/26/20 17:00 25 126/79 Mechanical Ventilator 100 07/26/20 16:45 94 27 141/73 (95) 87 07/26/20 16:45 27 141/73 Mechanical Ventilator 100 07/26/20 16:30 91 23 141/73 (95) 85 07/26/20 16:30 23 141/73 Mechanical Ventilator 100 07/26/20 16:15 28 134/69 Mechanical Ventilator 100 07/26/20 16:15 96 28 134/69 (90) 90 07/26/20 16:00 Mechanical Ventilator Mechanical Ventilator 07/26/20 16:00 109 26 177/69 (105) 79 12/29/20 16:00 100 07/26/20 16:00 22 Mechanical Ventilator 100 07/26/20 16:00 26 177/69 Mechanical Ventilator 100 07/26/20 16:00 100 07/26/20 15:45 93 23 116/66 (83) 86 07/26/20 15:45 23 116/66 Mechanical Ventilator 100 07/26/20 15:30 98 22 118/64 (82) 84 07/26/20 15:24 23 104/64 Mechanical Ventilator 100 07/26/20 15:22 22 123/66 Mechanical Ventilator 100 07/26/20 15:15 101 23 104/64 (77) 84 07/26/20 15:15 98 23 100 07/26/20 15:00 99 22 123/66 (85) 84 07/26/20 15:00 22 Mechanical Ventilator 100 07/26/20 14:22 26 105/59 Mechanical Ventilator 100 07/26/20 14:00 95 26 105/59 (74) 89 07/26/20 14:00 22 Mechanical Ventilator 15.0 100 07/26/20 13:59 26 Mechanical Ventilator 100 07/26/20 13:22 32 113/80 Mechanical Ventilator 100 07/26/20 13:00 94 32 113/80 (91) 90 07/26/20 13:00 32 Mechanical Ventilator 100 07/26/20 12:22 22 101/66 Mechanical Ventilator 100 07/26/20 12:00 100 07/26/20 12:00 22 Mechanical Ventilator 100 07/26/20 12:00 Mechanical Ventilator Mechanical Ventilator 07/26/20 12:00 99.2 97 22 101/66 (78) 90 07/26/20 11:28 100 07/26/20 11:22 27 105/67 Mechanical Ventilator 100 07/26/20 11:20 96 22 100 07/26/20 11:00 27 Mechanical Ventilator 100 07/26/20 11:00 27 Mechanical Ventilator 100 07/26/20 11:00 27 Mechanical Ventilator 100 07/26/20 11:00 27 Mechanical Ventilator 100 07/26/20 11:00 100 27 105/67 (80) 90 07/26/20 10:22 23 113/81 Mechanical Ventilator 100 07/26/20 10:22 23 113/81 Mechanical Ventilator 100 07/26/20 10:22 23 113/81 Mechanical Ventilator 100 07/26/20 10:22 23 113/81 Mechanical Ventilator 100 07/26/20 10:00 108 23 113/81 (92) 89 07/26/20 10:00 23 Mechanical Ventilator 100 07/26/20 10:00 23 Mechanical Ventilator 100 07/26/20 10:00 23 Mechanical Ventilator 100 07/26/20 10:00 23 Mechanical Ventilator 100 07/26/20 09:22 33 101/63 Mechanical Ventilator 100 07/26/20 09:22 33 101/63 Mechanical Ventilator 100 07/26/20 09:22 33 101/63 Mechanical Ventilator 100 07/26/20 09:22 33 101/63 Mechanical Ventilator 100 07/26/20 09:00 111 33 101/63 (76) 90 07/26/20 09:00 33 Mechanical Ventilator 100 07/26/20 09:00 33 Mechanical Ventilator 100 07/26/20 09:00 33 Mechanical Ventilator 100 07/26/20 09:00 33 Mechanical Ventilator 100 07/26/20 08:22 28 103/67 Mechanical Ventilator 100 07/26/20 08:22 28 103/67 Mechanical Ventilator 100 07/26/20 08:22 28 103/67 Mechanical Ventilator 100 07/26/20 08:22 23 109/74 Mechanical Ventilator 100 07/26/20 08:00 98.8 114 28 103/67 (79) 07/26/20 08:00 28 Mechanical Ventilator 100 07/26/20 08:00 28 Mechanical Ventilator 100 07/26/20 08:00 28 Mechanical Ventilator 100 07/26/20 08:00 28 Mechanical Ventilator 100 07/26/20 08:00 100 07/26/20 08:00 Mechanical Ventilator Mechanical Ventilator 07/26/20 07:53 115 07/26/20 07:51 23 Mechanical Ventilator 100 07/26/20 07:35 111 22 100 07/26/20 07:22 23 109/74 Mechanical Ventilator 100 07/26/20 07:00 115 23 109/74 (86) 90 07/26/20 07:00 23 Mechanical Ventilator 100 07/26/20 06:22 22 99/72 Mechanical Ventilator 100 07/26/20 06:00 114 23 114/55 (74) 88 07/26/20 06:00 24 Mechanical Ventilator 100 07/26/20 05:22 25 112/82 Mechanical Ventilator 100 07/26/20 05:00 25 Mechanical Ventilator 100 07/26/20 05:00 117 24 111/77 (88) 87 07/26/20 04:22 22 103/67 Mechanical Ventilator 100 07/26/20 04:00 100 07/26/20 04:00 Mechanical Ventilator Mechanical Ventilator 07/26/20 04:00 25 Mechanical Ventilator 100 07/26/20 04:00 97.6 123 22 126/79 (95) 87 07/26/20 04:00 123 07/26/20 03:22 27 127/80 Mechanical Ventilator 100 07/26/20 03:19 23 127/80 Mechanical Ventilator 100 07/26/20 03:18 27 127/80 Mechanical Ventilator 100 07/26/20 03:00 27 Mechanical Ventilator 100 07/26/20 03:00 131 28 136/89 (105) 91 07/26/20 02:30 126 25 100 07/26/20 02:22 27 154/84 Mechanical Ventilator 100 07/26/20 02:00 24 Mechanical Ventilator 100 07/26/20 02:00 134 27 115/70 (85) 83 07/26/20 01:22 23 126/70 Mechanical Ventilator 100 07/26/20 01:00 26 Mechanical Ventilator 100 07/26/20 01:00 144 25 136/100 (112) 82 07/26/20 00:52 26 Mechanical Ventilator 100 07/26/20 00:22 25 145/25 Mechanical Ventilator 100 07/26/20 00:00 Mechanical Ventilator Mechanical Ventilator 07/26/20 00:00 100 07/26/20 00:00 26 Mechanical Ventilator 100 07/26/20 00:00 103.7 164 20 145/29 (67) 65 07/25/20 23:22 25 129/31 Mechanical Ventilator 100 07/25/20 23:05 161 22 100 07/25/20 23:00 159 22 129/87 (101) 61 07/25/20 23:00 24 Mechanical Ventilator 100 07/25/20 22:22 23 136/22 Mechanical Ventilator 100 07/25/20 22:00 26 Mechanical Ventilator 100 07/25/20 22:00 167 33 130/98 (109) 51 07/25/20 21:22 24 140/18 Mechanical Ventilator 100 07/25/20 21:00 147 30 149/92 (111) 67 07/25/20 21:00 25 Mechanical Ventilator 100 07/25/20 20:22 22 180/34 Mechanical Ventilator 100 07/25/20 20:00 145 07/25/20 20:00 100 07/25/20 20:00 18 Mechanical Ventilator 100 07/25/20 20:00 99.7 139 30 151/83 (105) 70 07/25/20 20:00 Mechanical Ventilator Mechanical Ventilator 07/25/20 19:22 25 120/28 Mechanical Ventilator 100 07/25/20 19:00 121 28 135/60 (85) 73 07/25/20 19:00 34 Mechanical Ventilator 100 07/25/20 18:32 121 23 100 07/25/20 18:30 115 25 178/86 (116) 94 07/25/20 18:22 26 122/65 Mechanical Ventilator 100 Accucheck: 260 Critical Care - Subjective ROS Limited/Unobtainable: Yes Condition: critical IV Access: PICC EKG Rhythm: Sinus Rhythm FI02: 100 Vent Support Breath Rate: 22 Vent Support Mode: AC Vent Tidal Volume: 500 Sputum Amount: Small PEEP: 16.0 PIP: 48 Tube Feeding Amount: 30 I&O: Intake and Output 07/25/20 07/26/20 19:00 07:00 Intake Total 918.50 ml 551.397 ml Output Total 460 ml 800 ml Balance 458.50 ml -248.603 ml Free Water 70 ml IV Total 678.50 ml 431.397 ml Tube Feeding 170 ml 120 ml Output Urine Total 460 ml 800 ml ET-Tube: 7.5 ET Position: 22 Chuck Ortega MD Jul 26, 2020 18:19
[2020-07-26] MEDS: Promethazine/Codeine 5ml UD ORAL PRN (18:26)
--- NOTE | 2020-07-26 19:15 | NUR ---
NURSE NOTES: NURSE HAND-OFF REPORT: Latest Vital Signs: Temperature 99.2 , Pulse 103 , B/P 135 /79 , Respiratory Rate 27 , O2 SAT 86 , Mechanical Ventilator, O2 Flow Rate . Vital Sign Comment: On versed and fentanyl drip for RASS -2 EKG Rhythm: Sinus Tachycardia Rhythm change?: N Latest Bradley Fall Score: 30 Fall Risk: Medium Risk Safety Measures: Call light Within Reach, Bed Alarm Zone 2, Side Rails Side Rails x2, Bed position Low and Locked. Fall Precautions: Yellow Socks Yellow Gown Patient Fall Education Airborne isolation endorsed. Report given to Jose Gomez RN.
--- NOTE | 2020-07-26 19:19 | Diagnostic Imaging Report ---
EXAM: XR Chest, 1 View CLINICAL HISTORY: TUBE PLCMT TECHNIQUE: Frontal view of the chest. COMPARISON: 07.05.2020. Findings/impression: Tip of the endotracheal tube 42 mm above the blaine. The enteric tube is coursing inferior to the diaphragm. Left upper extremity PICC line with the tip terminating in the right atrium. Persistent low lung volumes with diffuse bilateral airspace consolidations. Trace right pleural effusion. No clinically significant pneumothorax.
--- NOTE | 2020-07-26 19:30 | NUR ---
NURSE NOTES: Received pt from ELIER Castro. Patient VS stable at this time. Patient intubated and lightly sedated on 100% FiO2. Patient tolerating with no sign of distress. SpO2 90% at this time. Patient RASS score -2. Patient calm and cooperative. Pt moves all ext. Pupils equal, PERRLA. Patient on versed and fentanyl drip. Oral gastric tube in place and verified by air auscultation and running vital AF 1.2 at 30mL/hr. No residual noted.Biswas in place. clear, yellow urine noted. skin intact. PICC line noted on left upper arm. Dressing dry, intact, asymptomatic. Peripheral pulses equal and strong. Will cont to monitor. Airborne isolation observed.
[2020-07-26] MEDS: Dyna-Hex 2% Top Sol 2oz TOPIC SCH (20:10)
--- NOTE | 2020-07-26 22:00 | NUR ---
NURSE NOTES: All due meds given, Patient repositioned and given oral care, Blood pressures are stable, patient is saturating in the low 90s 90-92%. Patient is afebrile at this time. Patient remains slightly sedated. Will continue to monitor.
--- NOTE | 2020-07-26 23:10 | Cardiology Progress Note ---
Subjective DATE OF SERVICE: Jul 26, 2020 Condition remains critical Increasingly hypoxic; worsening sinus tachycardia. He remains on full vent support, on 100% FIO2 - orally intubated. No LOC or syncope. ABG (07/25) 7.30/62/31 (100% FIO2) Objective Last 24 Hour Vital Signs Date Time Temp Pulse Resp B/P (MAP) Pulse Ox O2 Delivery O2 Flow Rate FiO2 07/26/20 22:00 98 29 100 07/26/20 21:30 88 25 137/65 (89) 89 07/26/20 21:12 25 Mechanical Ventilator 100 07/26/20 21:00 111 35 167/89 (115) 76 07/26/20 20:30 90 30 148/50 (82) 91 07/26/20 20:00 98.5 83 23 132/57 (82) 89 07/26/20 20:00 100 07/26/20 20:00 Mechanical Ventilator Mechanical Ventilator 07/26/20 20:00 85 07/26/20 19:33 114 34 100 07/26/20 19:30 88 22 126/65 (85) 90 07/26/20 19:00 103 27 135/79 (97) 86 07/26/20 19:00 27 Mechanical Ventilator 100 07/26/20 19:00 27 135/79 Mechanical Ventilator 100 07/26/20 18:30 89 21 142/72 (95) 89 07/26/20 18:00 29 Mechanical Ventilator 100 07/26/20 18:00 29 140/65 Mechanical Ventilator 100 07/26/20 18:00 99 29 140/65 (90) 88 07/26/20 17:45 93 27 120/68 (85) 86 07/26/20 17:30 91 35 127/67 (87) 87 07/26/20 17:15 93 25 126/75 (92) 86 07/26/20 17:00 94 25 126/79 (95) 87 07/26/20 17:00 25 Mechanical Ventilator 100 07/26/20 17:00 25 126/79 Mechanical Ventilator 100 07/26/20 16:45 94 27 141/73 (95) 87 07/26/20 16:45 27 141/73 Mechanical Ventilator 100 07/26/20 16:30 91 23 141/73 (95) 85 07/26/20 16:30 23 141/73 Mechanical Ventilator 100 07/26/20 16:15 28 134/69 Mechanical Ventilator 100 07/26/20 16:15 96 28 134/69 (90) 90 07/26/20 16:00 Mechanical Ventilator Mechanical Ventilator 07/26/20 16:00 109 26 177/69 (105) 79 07/26/20 16:00 100 07/26/20 16:00 22 Mechanical Ventilator 100 07/26/20 16:00 26 177/69 Mechanical Ventilator 100 07/26/20 16:00 100 07/26/20 15:45 93 23 116/66 (83) 86 07/26/20 15:45 23 116/66 Mechanical Ventilator 100 07/26/20 15:30 98 22 118/64 (82) 84 07/26/20 15:24 23 104/64 Mechanical Ventilator 100 07/26/20 15:22 22 123/66 Mechanical Ventilator 100 07/26/20 15:15 101 23 104/64 (77) 84 07/26/20 15:15 98 23 100 07/26/20 15:00 99 22 123/66 (85) 84 07/26/20 15:00 22 Mechanical Ventilator 100 07/26/20 14:22 26 105/59 Mechanical Ventilator 100 07/26/20 14:00 95 26 105/59 (74) 89 07/26/20 14:00 22 Mechanical Ventilator 15.0 100 07/26/20 13:59 26 Mechanical Ventilator 100 07/26/20 13:22 32 113/80 Mechanical Ventilator 100 07/26/20 13:00 94 32 113/80 (91) 90 07/26/20 13:00 32 Mechanical Ventilator 100 07/26/20 12:22 22 101/66 Mechanical Ventilator 100 07/26/20 12:00 100 07/26/20 12:00 22 Mechanical Ventilator 100 07/26/20 12:00 Mechanical Ventilator Mechanical Ventilator 07/26/20 12:00 99.2 97 22 101/66 (78) 90 07/26/20 11:28 100 07/26/20 11:22 27 105/67 Mechanical Ventilator 100 07/26/20 11:20 96 22 100 07/26/20 11:00 27 Mechanical Ventilator 100 07/26/20 11:00 27 Mechanical Ventilator 100 07/26/20 11:00 27 Mechanical Ventilator 100 07/26/20 11:00 27 Mechanical Ventilator 100 07/26/20 11:00 100 27 105/67 (80) 90 07/26/20 10:22 23 113/81 Mechanical Ventilator 100 07/26/20 10:22 23 113/81 Mechanical Ventilator 100 07/26/20 10:22 23 113/81 Mechanical Ventilator 100 07/26/20 10:22 23 113/81 Mechanical Ventilator 100 07/26/20 10:00 108 23 113/81 (92) 89 07/26/20 10:00 23 Mechanical Ventilator 100 07/26/20 10:00 23 Mechanical Ventilator 100 07/26/20 10:00 23 Mechanical Ventilator 100 07/26/20 10:00 23 Mechanical Ventilator 100 07/26/20 09:22 33 101/63 Mechanical Ventilator 100 07/26/20 09:22 33 101/63 Mechanical Ventilator 100 07/26/20 09:22 33 101/63 Mechanical Ventilator 100 07/26/20 09:22 33 101/63 Mechanical Ventilator 100 07/26/20 09:00 111 33 101/63 (76) 90 07/26/20 09:00 33 Mechanical Ventilator 100 07/26/20 09:00 33 Mechanical Ventilator 100 07/26/20 09:00 33 Mechanical Ventilator 100 07/26/20 09:00 33 Mechanical Ventilator 100 07/26/20 08:22 28 103/67 Mechanical Ventilator 100 07/26/20 08:22 28 103/67 Mechanical Ventilator 100 07/26/20 08:22 28 103/67 Mechanical Ventilator 100 07/26/20 08:22 23 109/74 Mechanical Ventilator 100 07/26/20 08:00 98.8 114 28 103/67 (79) 07/26/20 08:00 28 Mechanical Ventilator 100 07/26/20 08:00 28 Mechanical Ventilator 100 07/26/20 08:00 28 Mechanical Ventilator 100 07/26/20 08:00 28 Mechanical Ventilator 100 07/26/20 08:00 100 07/26/20 08:00 Mechanical Ventilator Mechanical Ventilator 07/26/20 07:53 115 07/26/20 07:51 23 Mechanical Ventilator 100 07/26/20 07:35 111 22 100 07/26/20 07:22 23 109/74 Mechanical Ventilator 100 07/26/20 07:00 115 23 109/74 (86) 90 07/26/20 07:00 23 Mechanical Ventilator 100 07/26/20 06:22 22 99/72 Mechanical Ventilator 100 07/26/20 06:00 114 23 114/55 (74) 88 07/26/20 06:00 24 Mechanical Ventilator 100 07/26/20 05:22 25 112/82 Mechanical Ventilator 100 07/26/20 05:00 25 Mechanical Ventilator 100 07/26/20 05:00 117 24 111/77 (88) 87 07/26/20 04:22 22 103/67 Mechanical Ventilator 100 07/26/20 04:00 100 07/26/20 04:00 Mechanical Ventilator Mechanical Ventilator 07/26/20 04:00 25 Mechanical Ventilator 100 07/26/20 04:00 97.6 123 22 126/79 (95) 87 07/26/20 04:00 123 07/26/20 03:22 27 127/80 Mechanical Ventilator 100 07/26/20 03:19 23 127/80 Mechanical Ventilator 100 07/26/20 03:18 27 127/80 Mechanical Ventilator 100 07/26/20 03:00 27 Mechanical Ventilator 100 07/26/20 03:00 131 28 136/89 (105) 91 07/26/20 02:30 126 25 100 07/26/20 02:22 27 154/84 Mechanical Ventilator 100 07/26/20 02:00 24 Mechanical Ventilator 100 07/26/20 02:00 134 27 115/70 (85) 83 07/26/20 01:22 23 126/70 Mechanical Ventilator 100 07/26/20 01:00 26 Mechanical Ventilator 100 07/26/20 01:00 144 25 136/100 (112) 82 07/26/20 00:52 26 Mechanical Ventilator 100 07/26/20 00:22 25 145/25 Mechanical Ventilator 100 07/26/20 00:00 Mechanical Ventilator Mechanical Ventilator 07/26/20 00:00 100 07/26/20 00:00 26 Mechanical Ventilator 100 07/26/20 00:00 103.7 164 20 145/29 (67) 65 07/25/20 23:22 25 129/31 Mechanical Ventilator 100 HEENT: Orally intubated, Mechanically Ventilated, Thin secretions ET Tube RHYTHM: SB LUNGS: bilateral rhonchi CARDIAC: regular rhythm, normal S1 and S2, bradycardia ABDOMEN: normal bowel sounds, non tender, soft EXTREMITIES: normal range of motion, non-tender Laboratory Tests Test 07/26/20 00:32 07/26/20 05:05 07/26/20 05:34 07/26/20 08:17 POC Whole Blood Glucose 235 MG/DL (74-106) H Pending White Blood Count 20.1 K/UL (4.8-10.8) H Red Blood Count 4.82 M/UL (4.70-6.10) Hemoglobin 14.9 G/DL (14.2-18.0) Hematocrit 44.8 % (42.0-52.0) Mean Corpuscular Volume 93 FL (80-99) Mean Corpuscular Hemoglobin 30.8 PG (27.0-31.0) Mean Corpuscular Hemoglobin Concent 33.2 G/DL (32.0-36.0) Red Cell Distribution Width 12.8 % (11.6-14.8) Platelet Count 259 K/UL (150-450) Mean Platelet Volume 7.0 FL (6.5-10.1) Neutrophils (%) (Auto) % (45.0-75.0) Lymphocytes (%) (Auto) % (20.0-45.0) Monocytes (%) (Auto) % (1.0-10.0) Eosinophils (%) (Auto) % (0.0-3.0) Basophils (%) (Auto) % (0.0-2.0) Differential Total Cells Counted 100 Neutrophils % (Manual) 91 % (45-75) H Lymphocytes % (Manual) 2 % (20-45) L Monocytes % (Manual) 5 % (1-10) Eosinophils % (Manual) 2 % (0-3) Basophils % (Manual) 0 % (0-2) Band Neutrophils 0 % (0-8) Platelet Estimate Adequate Platelet Morphology Normal Red Blood Cell Morphology Normal Arterial Blood pH 7.313 (7.350-7.450) Arterial Blood Partial Pressure CO2 66.6 mmHg (35.0-45.0) *H Arterial Blood Partial Pressure O2 53.2 mmHg (75.0-100.0) L Arterial Blood HCO3 33.0 mmol/L (22.0-26.0) H Arterial Blood Oxygen Saturation 86.1 % (95-100) *L Arterial Blood Base Excess 4.4 (-2-2) H Jacob Test Positive Test 07/26/20 09:46 07/26/20 12:39 07/26/20 18:01 POC Whole Blood Glucose 298 MG/DL (74-106) H 256 MG/DL (74-106) H 260 MG/DL (74-106) H Assessment/Plan Assessment/Plan Covid 19 PNA Secondary sinus tachycardia K.pneumonia PNA Acute respiratory failure with severe Hypoxia Sinus bradycardia resolved Diabetes mellitus with hyperglycemia due to steroids Transaminitis Mod protein/calorie malnutrition CRITICAL & GUARDED Abx per ID Continuous cardiac monitoring Anticoagulation and steroid rx Titrate oxygen as able; prone. Vent settings adjusted by pulmonary Anti-viral rx Protein suppl Insulin cov'g by SS; levemir dose advanced further. Stress test once Covid-free to check chronotropic competence. Chuck Swain MD Jul 26, 2020 23:10
[2020-07-27] VITALS (52 sets, daily range): BP systolic 104–164; BP diastolic 62–116
--- NOTE | 2020-07-27 00:35 | NUR ---
NURSE NOTES: Called and informed Dr. Ortega that patient was desaturating into the 70-80s. Received orders to increase Peep to 16 and Rate to 26, Lasix 20mg IVP X 1 and ABG in the AM.
[2020-07-27] MEDS: NovoLOG Insulin Flexpen SUBQ SCH ×5 (00:53→17:36)
[2020-07-27] MEDS: Vancomycin 1 GM in NS 275 ML IVPB SCH (02:00)
--- NOTE | 2020-07-27 02:00 | NUR ---
NURSE NOTES: Patient repositioned and suctioned, not much sputum. Patient lavaged and and suctioned. Blood pressures remains stable. Patient continues to saturate in the 80s. Patient making good output after Lasix given.
--- NOTE | 2020-07-27 04:00 | NUR ---
NURSE NOTES: Bed bath given, blood drawn sent to lab. Patient repositioned and oral care performed. SpO2 85-90%. No BM. Blood pressures within normotensive ranges.
--- NOTE | 2020-07-27 04:11 | Cardiology Progress Note ---
Subjective DATE OF SERVICE: Jul 27, 2020 Condition remains critical and prognosis guarded Increasingly hypoxic; worsening sinus tachycardia. He remains on full vent support, on 100% FIO2 - orally intubated. ABG (07/27) 7.36/60/45 (100% FIO2) Objective Last 24 Hour Vital Signs Date Time Temp Pulse Resp B/P (MAP) Pulse Ox O2 Delivery O2 Flow Rate FiO2 07/27/20 03:30 97 27 125/67 (86) 89 07/27/20 03:00 26 Mechanical Ventilator 100 07/27/20 03:00 26 125/67 Mechanical Ventilator 100 07/27/20 03:00 99 28 133/79 (97) 88 07/27/20 02:49 97 26 100 07/27/20 02:30 100 25 145/78 (100) 84 07/27/20 02:00 26 Mechanical Ventilator 100 07/27/20 02:00 26 145/65 Mechanical Ventilator 100 07/27/20 02:00 90 26 116/72 (87) 81 07/27/20 01:30 93 27 143/68 (93) 81 07/27/20 01:00 26 Mechanical Ventilator 100 07/27/20 01:00 25 136/60 Mechanical Ventilator 100 07/27/20 01:00 90 25 137/68 (91) 89 07/27/20 00:30 92 27 130/69 (89) 85 07/27/20 00:00 94 07/27/20 00:00 Mechanical Ventilator Mechanical Ventilator 07/27/20 00:00 100 07/27/20 00:00 26 Mechanical Ventilator 100 07/27/20 00:00 26 145/71 Mechanical Ventilator 100 07/27/20 00:00 97.6 89 26 131/63 (85) 83 07/26/20 23:30 87 25 122/73 (89) 87 07/26/20 23:00 84 27 130/67 (88) 88 07/26/20 23:00 25 Mechanical Ventilator 100 07/26/20 23:00 25 130/67 Mechanical Ventilator 100 07/26/20 22:30 88 26 149/65 (93) 87 07/26/20 22:00 98 29 100 07/26/20 22:00 22 Mechanical Ventilator 100 07/26/20 22:00 22 132/75 Mechanical Ventilator 100 07/26/20 22:00 85 26 132/75 (94) 89 07/26/20 21:30 88 25 137/65 (89) 89 07/26/20 21:12 25 Mechanical Ventilator 100 07/26/20 21:00 24 Mechanical Ventilator 100 07/26/20 21:00 24 167/89 Mechanical Ventilator 100 07/26/20 21:00 111 35 167/89 (115) 76 07/26/20 20:30 90 30 148/50 (82) 91 07/26/20 20:00 22 Mechanical Ventilator 100 07/26/20 20:00 22 132/65 Mechanical Ventilator 100 07/26/20 20:00 98.5 83 23 132/57 (82) 89 07/26/20 20:00 100 07/26/20 20:00 Mechanical Ventilator Mechanical Ventilator 07/26/20 20:00 85 07/26/20 19:33 114 34 100 07/26/20 19:30 88 22 126/65 (85) 90 07/26/20 19:00 103 27 135/79 (97) 86 07/26/20 19:00 27 Mechanical Ventilator 100 07/26/20 19:00 27 135/79 Mechanical Ventilator 100 07/26/20 18:30 89 21 142/72 (95) 89 07/26/20 18:00 29 Mechanical Ventilator 100 07/26/20 18:00 29 140/65 Mechanical Ventilator 100 07/26/20 18:00 99 29 140/65 (90) 88 07/26/20 17:45 93 27 120/68 (85) 86 07/26/20 17:30 91 35 127/67 (87) 87 07/26/20 17:15 93 25 126/75 (92) 86 07/26/20 17:00 94 25 126/79 (95) 87 07/26/20 17:00 25 Mechanical Ventilator 100 07/26/20 17:00 25 126/79 Mechanical Ventilator 100 07/26/20 16:45 94 27 141/73 (95) 87 07/26/20 16:45 27 141/73 Mechanical Ventilator 100 07/26/20 16:30 91 23 141/73 (95) 85 07/26/20 16:30 23 141/73 Mechanical Ventilator 100 07/26/20 16:15 28 134/69 Mechanical Ventilator 100 07/26/20 16:15 96 28 134/69 (90) 90 07/26/20 16:00 Mechanical Ventilator Mechanical Ventilator 12/29/20 16:00 109 26 177/69 (105) 79 07/26/20 16:00 100 07/26/20 16:00 22 Mechanical Ventilator 100 07/26/20 16:00 26 177/69 Mechanical Ventilator 100 07/26/20 16:00 100 07/26/20 15:45 93 23 116/66 (83) 86 07/26/20 15:45 23 116/66 Mechanical Ventilator 100 07/26/20 15:30 98 22 118/64 (82) 84 07/26/20 15:24 23 104/64 Mechanical Ventilator 100 07/26/20 15:22 22 123/66 Mechanical Ventilator 100 07/26/20 15:15 101 23 104/64 (77) 84 07/26/20 15:15 98 23 100 07/26/20 15:00 99 22 123/66 (85) 84 07/26/20 15:00 22 Mechanical Ventilator 100 07/26/20 14:22 26 105/59 Mechanical Ventilator 100 07/26/20 14:00 95 26 105/59 (74) 89 07/26/20 14:00 22 Mechanical Ventilator 15.0 100 07/26/20 13:59 26 Mechanical Ventilator 100 07/26/20 13:22 32 113/80 Mechanical Ventilator 100 07/26/20 13:00 94 32 113/80 (91) 90 07/26/20 13:00 32 Mechanical Ventilator 100 07/26/20 12:22 22 101/66 Mechanical Ventilator 100 07/26/20 12:00 100 07/26/20 12:00 22 Mechanical Ventilator 100 07/26/20 12:00 Mechanical Ventilator Mechanical Ventilator 07/26/20 12:00 99.2 97 22 101/66 (78) 90 07/26/20 11:28 100 07/26/20 11:22 27 105/67 Mechanical Ventilator 100 07/26/20 11:20 96 22 100 07/26/20 11:00 27 Mechanical Ventilator 100 07/26/20 11:00 27 Mechanical Ventilator 100 07/26/20 11:00 27 Mechanical Ventilator 100 07/26/20 11:00 27 Mechanical Ventilator 100 07/26/20 11:00 100 27 105/67 (80) 90 07/26/20 10:22 23 113/81 Mechanical Ventilator 100 07/26/20 10:22 23 113/81 Mechanical Ventilator 100 07/26/20 10:22 23 113/81 Mechanical Ventilator 100 07/26/20 10:22 23 113/81 Mechanical Ventilator 100 07/26/20 10:00 108 23 113/81 (92) 89 07/26/20 10:00 23 Mechanical Ventilator 100 07/26/20 10:00 23 Mechanical Ventilator 100 07/26/20 10:00 23 Mechanical Ventilator 100 07/26/20 10:00 23 Mechanical Ventilator 100 07/26/20 09:22 33 101/63 Mechanical Ventilator 100 07/26/20 09:22 33 101/63 Mechanical Ventilator 100 07/26/20 09:22 33 101/63 Mechanical Ventilator 100 07/26/20 09:22 33 101/63 Mechanical Ventilator 100 07/26/20 09:00 111 33 101/63 (76) 90 07/26/20 09:00 33 Mechanical Ventilator 100 07/26/20 09:00 33 Mechanical Ventilator 100 07/26/20 09:00 33 Mechanical Ventilator 100 07/26/20 09:00 33 Mechanical Ventilator 100 07/26/20 08:22 28 103/67 Mechanical Ventilator 100 07/26/20 08:22 28 103/67 Mechanical Ventilator 100 07/26/20 08:22 28 103/67 Mechanical Ventilator 100 07/26/20 08:22 23 109/74 Mechanical Ventilator 100 07/26/20 08:00 98.8 114 28 103/67 (79) 07/26/20 08:00 28 Mechanical Ventilator 100 07/26/20 08:00 28 Mechanical Ventilator 100 07/26/20 08:00 28 Mechanical Ventilator 100 07/26/20 08:00 28 Mechanical Ventilator 100 07/26/20 08:00 100 07/26/20 08:00 Mechanical Ventilator Mechanical Ventilator 07/26/20 07:53 115 07/26/20 07:51 23 Mechanical Ventilator 100 07/26/20 07:35 111 22 100 07/26/20 07:22 23 109/74 Mechanical Ventilator 100 07/26/20 07:00 115 23 109/74 (86) 90 07/26/20 07:00 23 Mechanical Ventilator 100 07/26/20 06:22 22 99/72 Mechanical Ventilator 100 07/26/20 06:00 114 23 114/55 (74) 88 07/26/20 06:00 24 Mechanical Ventilator 100 12/29/20 05:22 25 112/82 Mechanical Ventilator 100 07/26/20 05:00 25 Mechanical Ventilator 100 07/26/20 05:00 117 24 111/77 (88) 87 07/26/20 04:22 22 103/67 Mechanical Ventilator 100 HEENT: Orally intubated, Mechanically Ventilated, Thin secretions ET Tube RHYTHM: SB LUNGS: bilateral rhonchi CARDIAC: regular rhythm, normal S1 and S2, bradycardia ABDOMEN: normal bowel sounds, non tender, soft EXTREMITIES: normal range of motion, non-tender Laboratory Tests Test 07/26/20 05:05 07/26/20 05:34 07/26/20 08:17 07/26/20 09:46 White Blood Count 20.1 K/UL (4.8-10.8) H Red Blood Count 4.82 M/UL (4.70-6.10) Hemoglobin 14.9 G/DL (14.2-18.0) Hematocrit 44.8 % (42.0-52.0) Mean Corpuscular Volume 93 FL (80-99) Mean Corpuscular Hemoglobin 30.8 PG (27.0-31.0) Mean Corpuscular Hemoglobin Concent 33.2 G/DL (32.0-36.0) Red Cell Distribution Width 12.8 % (11.6-14.8) Platelet Count 259 K/UL (150-450) Mean Platelet Volume 7.0 FL (6.5-10.1) Neutrophils (%) (Auto) % (45.0-75.0) Lymphocytes (%) (Auto) % (20.0-45.0) Monocytes (%) (Auto) % (1.0-10.0) Eosinophils (%) (Auto) % (0.0-3.0) Basophils (%) (Auto) % (0.0-2.0) Differential Total Cells Counted 100 Neutrophils % (Manual) 91 % (45-75) H Lymphocytes % (Manual) 2 % (20-45) L Monocytes % (Manual) 5 % (1-10) Eosinophils % (Manual) 2 % (0-3) Basophils % (Manual) 0 % (0-2) Band Neutrophils 0 % (0-8) Platelet Estimate Adequate Platelet Morphology Normal Red Blood Cell Morphology Normal POC Whole Blood Glucose Pending 298 MG/DL (74-106) H Arterial Blood pH 7.313 (7.350-7.450) Arterial Blood Partial Pressure CO2 66.6 mmHg (35.0-45.0) *H Arterial Blood Partial Pressure O2 53.2 mmHg (75.0-100.0) L Arterial Blood HCO3 33.0 mmol/L (22.0-26.0) H Arterial Blood Oxygen Saturation 86.1 % (95-100) *L Arterial Blood Base Excess 4.4 (-2-2) H Jacob Test Positive Test 07/26/20 12:39 07/26/20 18:01 07/27/20 00:10 07/27/20 00:50 POC Whole Blood Glucose 256 MG/DL (74-106) H 260 MG/DL (74-106) H 163 MG/DL (74-106) H Arterial Blood pH 7.364 (7.350-7.450) Arterial Blood Partial Pressure CO2 59.9 mmHg (35.0-45.0) *H Arterial Blood Partial Pressure O2 44.5 mmHg (75.0-100.0) Arterial Blood HCO3 33.4 mmol/L (22.0-26.0) H Arterial Blood Oxygen Saturation 80.9 % (95-100) *L Arterial Blood Base Excess 6.0 (-2-2) H Jacob Test Positive Assessment/Plan Assessment/Plan Covid 19 PNA Secondary sinus tachycardia K.pneumonia PNA Acute respiratory failure with severe Hypoxia Sinus bradycardia resolved Diabetes mellitus with hyperglycemia due to steroids Transaminitis Mod protein/calorie malnutrition CRITICAL & GUARDED Abx per ID Continuous cardiac monitoring Anticoagulation and steroid rx Titrate oxygen as able; prone. Vent settings adjusted by pulmonary Anti-viral rx Protein suppl Insulin cov'g by SS; levemir dose advanced further. Chuck Swain MD Jul 27, 2020 04:11
[2020-07-27] MEDS: Midazolam HCl 50mg/10ml vial 50 MG in NS 90 ML IV PRN ×3 (04:16→17:10)
[2020-07-27] MEDS: fentaNYL 2500mcg/NS 250ml 250 ML IV SCH ×2 (04:17→18:38)
--- NOTE | 2020-07-27 06:00 | NUR ---
NURSE NOTES: Patient remains sedated and saturating in the 90s. Patient remains saturating in the 80s. HR NSR at this time, pulses present. Repositioned, oral care performed. Insulin coverage given, no fevers.
[2020-07-27 06:10] LABS: HEMATOCRIT 39.3 % (42.0-52.0); HEMOGLOBIN 13.7 G/DL (14.2-18.0); MEAN CORPUSCULAR VOLUME 90 FL (80-99); PLATELET COUNT 270 K/UL (150-450); RED BLOOD COUNT 4.37 M/UL (4.70-6.10); RED CELL DISTRIBUTION WIDTH 12.4 % (11.6-14.8); WHITE BLOOD COUNT 18.4 K/UL (4.8-10.8)
[2020-07-27 06:38] LABS: ALANINE AMINOTRANSFERASE 48 U/L (12-78); ALBUMIN 1.8 G/DL (3.4-5.0); ALBUMIN/GLOBULIN RATIO 0.4 (1.0-2.7); ALKALINE PHOSPHATASE 128 U/L (46-116); ANION GAP 2 mmol/L (5-15); ASPARTATE AMINO TRANSFERASE 47 U/L (15-37); BILIRUBIN,TOTAL 0.6 MG/DL (0.2-1.0); BLOOD UREA NITROGEN 23 mg/dL (7-18); CALCIUM 8.6 MG/DL (8.5-10.1); CARBON DIOXIDE 39 MMOL/L (21-32); CHLORIDE 98 MMOL/L (98-107); CREATININE 0.7 MG/DL (0.55-1.30); POTASSIUM 3.4 MMOL/L (3.5-5.1); SODIUM 138 MMOL/L (136-145)
--- NOTE | 2020-07-27 07:25 | NUR ---
HAND-OFF: Report given to Gloria THAPA.
[2020-07-27] MEDS: Vitamin B Complex Tab NG SCH (09:49)
[2020-07-27] MEDS: Solu-MEDROL 40mg Inj IVP SCH ×2 (09:49→20:26)
[2020-07-27] MEDS: Ascorbic Acid 500mg tab NG SCH ×2 (09:49→20:26)
[2020-07-27] MEDS: Acetaminophen 650mg/20.3ml NG PRN (09:49)
[2020-07-27] MEDS: Pantoprazole Inj IVP SCH (09:49)
[2020-07-27] MEDS: Enoxaparin 40mg Inj SUBQ SCH ×2 (09:50→20:27)
[2020-07-27] MEDS: Levemir Flexpen SUBQ SCH ×2 (09:51→20:26)
--- NOTE | 2020-07-27 10:27 | NUR ---
NURSE NOTES: Spoke with Dr. Silva via telephone, discussed regarding today's ABG result. No new orders obtained. Addendum: 07/27/20 at 1134 by DARRYN LAW RN RN [id number] NURSE NOTES: Spoke with Dr. Ortega via telephone, discussed regarding today's ABG result. No new orders obtained
[2020-07-27] MEDS: Vancomycin 1.25gm Premix IVPB SCH ×2 (11:20→18:39)
--- NOTE | 2020-07-27 12:00 | NUR ---
NURSE NOTES: Oral care provided. Tolerating tube feeding. No signs and symptoms of hypoglycemia.
--- NOTE | 2020-07-27 12:49 | Infectious Diseases Prog Note ---
Assessment/Plan Assessment/Plan antibiotics : vancomycin, ceftriaxone A 1. COVID-19 pneumonia on 100 % Fi O2 of oxygen with O2 saturation 90 %. s/p ivermectin x 2 2. History of asthma. 3. Elevated liver function tests improving 4. klebsiella pneumonia P 1. continue ceftriaxone, iv vancomycin 2. Continue solumedrol 3. Continue isolation. Subjective ROS Limited/Unobtainable: Yes Allergies: Coded Allergies: No Known Allergies (Unverified , 03/08/17) Objective Last 24 Hour Vital Signs Date Time Temp Pulse Resp B/P (MAP) Pulse Ox O2 Delivery O2 Flow Rate FiO2 07/27/20 12:30 118 27 143/70 (94) 91 07/27/20 12:00 Mechanical Ventilator Mechanical Ventilator 07/27/20 12:00 100 07/27/20 12:00 100.2 119 25 137/71 (93) 88 07/27/20 12:00 122 07/27/20 12:00 100 07/27/20 11:30 137 31 161/100 (120) 89 07/27/20 11:00 26 Mechanical Ventilator 100 07/27/20 11:00 27 145/116 Mechanical Ventilator 100 07/27/20 11:00 123 27 145/116 (126) 85 07/27/20 10:30 119 26 153/84 (107) 07/27/20 10:16 24 Mechanical Ventilator 100 07/27/20 10:00 112 26 149/90 (109) 94 07/27/20 10:00 26 Mechanical Ventilator 100 07/27/20 10:00 26 149/90 Mechanical Ventilator 100 07/27/20 09:30 113 42 164/76 (105) 93 07/27/20 09:00 119 32 163/89 (113) 83 07/27/20 09:00 32 Mechanical Ventilator 100 07/27/20 09:00 32 163/89 Mechanical Ventilator 100 07/27/20 08:30 115 31 139/74 (95) 93 07/27/20 08:00 100.1 107 30 131/67 (88) 92 07/27/20 08:00 Mechanical Ventilator Mechanical Ventilator 07/27/20 08:00 30 Mechanical Ventilator 100 07/27/20 08:00 30 131/67 Mechanical Ventilator 100 07/27/20 08:00 100 07/27/20 07:58 107 12/30/20 07:30 104 28 123/74 (90) 92 07/27/20 07:00 26 Mechanical Ventilator 100 07/27/20 07:00 26 133/71 Mechanical Ventilator 100 07/27/20 07:00 103 26 133/71 (91) 92 07/27/20 06:30 103 24 124/64 (84) 91 07/27/20 06:00 28 Mechanical Ventilator 100 07/27/20 06:00 28 125/62 Mechanical Ventilator 100 07/27/20 06:00 100 26 125/62 (83) 91 07/27/20 05:30 100 24 109/67 (81) 90 07/27/20 05:00 99 24 126/68 (87) 91 07/27/20 05:00 28 Mechanical Ventilator 100 07/27/20 05:00 26 116/60 Mechanical Ventilator 100 07/27/20 04:30 93 23 116/65 (82) 89 07/27/20 04:17 28 116/66 Mechanical Ventilator 100 07/27/20 04:16 28 Mechanical Ventilator 100 07/27/20 04:00 98.9 96 28 116/66 (83) 90 07/27/20 04:00 91 07/27/20 04:00 100 07/27/20 04:00 28 Mechanical Ventilator 100 07/27/20 04:00 28 120/80 Mechanical Ventilator 100 07/27/20 04:00 Mechanical Ventilator Mechanical Ventilator 07/27/20 03:30 97 27 125/67 (86) 89 07/27/20 03:00 26 Mechanical Ventilator 100 07/27/20 03:00 26 125/67 Mechanical Ventilator 100 07/27/20 03:00 99 28 133/79 (97) 88 07/27/20 02:49 97 26 100 07/27/20 02:30 100 25 145/78 (100) 84 07/27/20 02:00 26 Mechanical Ventilator 100 07/27/20 02:00 26 145/65 Mechanical Ventilator 100 07/27/20 02:00 90 26 116/72 (87) 81 07/27/20 01:30 93 27 143/68 (93) 81 07/27/20 01:00 26 Mechanical Ventilator 100 07/27/20 01:00 25 136/60 Mechanical Ventilator 100 07/27/20 01:00 90 25 137/68 (91) 89 07/27/20 00:30 92 27 130/69 (89) 85 07/27/20 00:00 94 07/27/20 00:00 Mechanical Ventilator Mechanical Ventilator 07/27/20 00:00 100 07/27/20 00:00 26 Mechanical Ventilator 100 07/27/20 00:00 26 145/71 Mechanical Ventilator 100 07/27/20 00:00 97.6 89 26 131/63 (85) 83 07/26/20 23:30 87 25 122/73 (89) 87 07/26/20 23:00 84 27 130/67 (88) 88 07/26/20 23:00 25 Mechanical Ventilator 100 07/26/20 23:00 25 130/67 Mechanical Ventilator 100 07/26/20 22:30 88 26 149/65 (93) 87 07/26/20 22:00 98 29 100 07/26/20 22:00 22 Mechanical Ventilator 100 07/26/20 22:00 22 132/75 Mechanical Ventilator 100 07/26/20 22:00 85 26 132/75 (94) 89 07/26/20 21:30 88 25 137/65 (89) 89 07/26/20 21:12 25 Mechanical Ventilator 100 07/26/20 21:00 24 Mechanical Ventilator 100 07/26/20 21:00 24 167/89 Mechanical Ventilator 100 07/26/20 21:00 111 35 167/89 (115) 76 07/26/20 20:30 90 30 148/50 (82) 91 07/26/20 20:00 22 Mechanical Ventilator 100 07/26/20 20:00 22 132/65 Mechanical Ventilator 100 07/26/20 20:00 98.5 83 23 132/57 (82) 89 07/26/20 20:00 100 07/26/20 20:00 Mechanical Ventilator Mechanical Ventilator 07/26/20 20:00 85 07/26/20 19:33 114 34 100 07/26/20 19:30 88 22 126/65 (85) 90 07/26/20 19:00 103 27 135/79 (97) 86 07/26/20 19:00 27 Mechanical Ventilator 100 07/26/20 19:00 27 135/79 Mechanical Ventilator 100 07/26/20 18:30 89 21 142/72 (95) 89 07/26/20 18:00 29 Mechanical Ventilator 100 07/26/20 18:00 29 140/65 Mechanical Ventilator 100 07/26/20 18:00 99 29 140/65 (90) 88 07/26/20 17:45 93 27 120/68 (85) 86 07/26/20 17:30 91 35 127/67 (87) 87 07/26/20 17:15 93 25 126/75 (92) 86 07/26/20 17:00 94 25 126/79 (95) 87 07/26/20 17:00 25 Mechanical Ventilator 100 07/26/20 17:00 25 126/79 Mechanical Ventilator 100 07/26/20 16:45 94 27 141/73 (95) 87 07/26/20 16:45 27 141/73 Mechanical Ventilator 100 07/26/20 16:30 91 23 141/73 (95) 85 07/26/20 16:30 23 141/73 Mechanical Ventilator 100 07/26/20 16:15 28 134/69 Mechanical Ventilator 100 07/26/20 16:15 96 28 134/69 (90) 90 07/26/20 16:00 Mechanical Ventilator Mechanical Ventilator 07/26/20 16:00 109 26 177/69 (105) 79 07/26/20 16:00 100 07/26/20 16:00 22 Mechanical Ventilator 100 07/26/20 16:00 26 177/69 Mechanical Ventilator 100 07/26/20 16:00 100 07/26/20 15:45 93 23 116/66 (83) 86 07/26/20 15:45 23 116/66 Mechanical Ventilator 100 07/26/20 15:30 98 22 118/64 (82) 84 07/26/20 15:24 23 104/64 Mechanical Ventilator 100 07/26/20 15:22 22 123/66 Mechanical Ventilator 100 07/26/20 15:15 101 23 104/64 (77) 84 07/26/20 15:15 98 23 100 07/26/20 15:00 99 22 123/66 (85) 84 07/26/20 15:00 22 Mechanical Ventilator 100 07/26/20 14:22 26 105/59 Mechanical Ventilator 100 07/26/20 14:00 95 26 105/59 (74) 89 07/26/20 14:00 22 Mechanical Ventilator 15.0 100 07/26/20 13:59 26 Mechanical Ventilator 100 07/26/20 13:22 32 113/80 Mechanical Ventilator 100 12/29/20 13:00 94 32 113/80 (91) 90 07/26/20 13:00 32 Mechanical Ventilator 100 Height (Feet): 5 Height (Inches): 6.00 Weight (Pounds): 209 HEENT: other - intubated Laboratory Tests Test 07/26/20 18:01 07/27/20 00:10 07/27/20 00:50 07/27/20 04:15 POC Whole Blood Glucose 260 MG/DL (74-106) H 163 MG/DL (74-106) H Pending Arterial Blood pH 7.364 (7.350-7.450) Arterial Blood Partial Pressure CO2 59.9 mmHg (35.0-45.0) *H Arterial Blood Partial Pressure O2 44.5 mmHg (75.0-100.0) Arterial Blood HCO3 33.4 mmol/L (22.0-26.0) H Arterial Blood Oxygen Saturation 80.9 % (95-100) *L Arterial Blood Base Excess 6.0 (-2-2) H Jacob Test Positive Test 07/27/20 05:00 07/27/20 07:43 07/27/20 09:00 07/27/20 09:36 White Blood Count 18.4 K/UL (4.8-10.8) H Red Blood Count 4.37 M/UL (4.70-6.10) L Hemoglobin 13.7 G/DL (14.2-18.0) L Hematocrit 39.3 % (42.0-52.0) L Mean Corpuscular Volume 90 FL (80-99) Mean Corpuscular Hemoglobin 31.3 PG (27.0-31.0) H Mean Corpuscular Hemoglobin Concent 34.9 G/DL (32.0-36.0) Red Cell Distribution Width 12.4 % (11.6-14.8) Platelet Count 270 K/UL (150-450) Mean Platelet Volume 6.7 FL (6.5-10.1) Neutrophils (%) (Auto) % (45.0-75.0) Lymphocytes (%) (Auto) % (20.0-45.0) Monocytes (%) (Auto) % (1.0-10.0) Eosinophils (%) (Auto) % (0.0-3.0) Basophils (%) (Auto) % (0.0-2.0) Differential Total Cells Counted 100 Neutrophils % (Manual) 94 % (45-75) H Lymphocytes % (Manual) 2 % (20-45) L Monocytes % (Manual) 4 % (1-10) Eosinophils % (Manual) 0 % (0-3) Basophils % (Manual) 0 % (0-2) Band Neutrophils 0 % (0-8) Platelet Estimate Adequate Platelet Morphology Normal Red Blood Cell Morphology Normal Sodium Level 138 MMOL/L (136-145) Potassium Level 3.4 MMOL/L (3.5-5.1) L Chloride Level 98 MMOL/L (98-107) Carbon Dioxide Level 39 MMOL/L (21-32) H Anion Gap 2 mmol/L (5-15) L Blood Urea Nitrogen 23 mg/dL (7-18) H Creatinine 0.7 MG/DL (0.55-1.30) Estimat Glomerular Filtration Rate > 60 mL/min (>60) Glucose Level 283 MG/DL (74-106) H Calcium Level 8.6 MG/DL (8.5-10.1) Total Bilirubin 0.6 MG/DL (0.2-1.0) Aspartate Amino Transf (AST/SGOT) 47 U/L (15-37) H Alanine Aminotransferase (ALT/SGPT) 48 U/L (12-78) Alkaline Phosphatase 128 U/L (46-116) H Total Protein 6.5 G/DL (6.4-8.2) Albumin 1.8 G/DL (3.4-5.0) L Globulin 4.7 g/dL Albumin/Globulin Ratio 0.4 (1.0-2.7) L Arterial Blood pH 7.409 (7.350-7.450) Arterial Blood Partial Pressure CO2 63.6 mmHg (35.0-45.0) *H Arterial Blood Partial Pressure O2 54.6 mmHg (75.0-100.0) L Arterial Blood HCO3 39.3 mmol/L (22.0-26.0) H Arterial Blood Oxygen Saturation 89.6 % (95-100) *L Arterial Blood Base Excess 11.8 (-2-2) *H Jacob Test Positive Vancomycin Level Trough 8.3 ug/mL (5.0-12.0) POC Whole Blood Glucose 233 MG/DL (74-106) H Current Medications Medications (Trade) Dose Ordered Sig/Milagro Route PRN Reason Start Time Stop Time Status Last Admin Dose Admin Acetaminophen (Tylenol) 650 mg Q4H PRN RECTAL Mild Pain (Pain Scale 1-3) 07/24/20 18:15 08/23/20 18:14 07/25/20 11:49 Acetaminophen (Tylenol) 650 mg Q6H PRN NG Mild Pain (Pain Scale 1-3) 07/26/20 08:30 08/25/20 08:29 07/27/20 09:49 Acetaminophen (Tylenol) 650 mg Q6H PRN NG Temp >100.5 07/26/20 08:30 08/25/20 08:29 Albuterol/ Ipratropium (Combivent Respimat) 2 puff Q2H PRN INH Shortness of Breath 07/09/20 21:45 08/08/20 21:44 07/19/20 09:17 Ascorbic Acid (Vitamin C) 500 mg EVERY 12 HOURS NG 07/26/20 21:00 08/10/20 08:59 07/27/20 09:49 Ceftriaxone Sodium 1 gm/ Dextrose 55 ml @ 110 mls/hr Q24H IVPB 07/25/20 13:00 08/01/20 12:59 07/26/20 14:31 Chlorhexidine Gluconate (Marycarmen-Hex 2%) 1 applic DAILY@1999 TOPIC 07/20/20 20:00 10/18/20 19:59 07/26/20 20:10 Dextrose (Dextrose 50%) 25 ml Q30M PRN IV Hypoglycemia 07/23/20 13:15 10/21/20 13:14 Dextrose (Dextrose 50%) 50 ml Q30M PRN IV Hypoglycemia 07/23/20 13:15 10/21/20 13:14 Dextrose/Sodium Chloride 1,000 ml @ 60 mls/hr [id number] PRN IV WHILE PRONING ONLY 07/24/20 17:45 08/23/20 17:44 07/24/20 18:01 Enoxaparin Sodium (Lovenox) 40 mg Q12HR SUBQ 07/26/20 09:00 10/22/20 21:29 07/27/20 09:50 Fentanyl Citrate 250 ml @ 0 mls/hr Q24H IV 07/26/20 16:00 07/28/20 15:59 07/27/20 04:17 Insulin Aspart (NovoLOG) Q4HR SUBQ 07/23/20 16:00 10/21/20 15:59 07/27/20 09:51 Insulin Detemir (Levemir) 26 units EVERY 12 HOURS SUBQ 07/26/20 09:00 10/20/20 08:59 07/27/20 09:51 Methylprednisolone Sodium Succinate (Solu-MEDROL) 40 mg EVERY 12 HOURS IVP 07/25/20 12:30 10/23/20 12:29 07/27/20 09:49 Midazolam HCl 50 mg/Sodium Chloride 100 ml @ 0 mls/hr Q24H PRN IV SEDATION 07/26/20 13:00 07/28/20 12:59 07/27/20 10:16 Ondansetron HCl (Zofran) 4 mg Q6H PRN IVP Nausea & Vomiting 07/09/20 21:45 08/08/20 21:44 Pantoprazole (Protonix) 40 mg DAILY IVP 07/25/20 09:00 08/24/20 08:59 07/27/20 09:49 Promethazine HCl/ Codeine (Phenergan with Codeine) 5 ml Q4H PRN ORAL For Cough 07/11/20 15:15 08/10/20 15:14 07/26/20 18:26 Vancomycin HCl 250 ml @ 166.667 mls/hr Q8H IVPB 07/27/20 11:00 08/01/20 10:59 07/27/20 11:20 Vancomycin HCl (Vanco pharmacy to dose) 1 ea DAILY PRN MISC Per rx protocol 07/26/20 09:00 08/25/20 08:59 Vitamin B Complex (Vitamin B Complex) 1 tab DAILY NG 07/24/20 09:00 10/09/20 08:59 07/27/20 09:49 Vitamin D (Vitamin D) 1,000 unit BEDTIME GT 07/27/20 21:00 08/13/20 09:29 Jose Alberto MD Jul 27, 2020 12:49
[2020-07-27] MEDS: cefTRIAXone 1 GM in D5W 55 ML IVPB SCH (13:21)
--- NOTE | 2020-07-27 13:37 | Pulmonolgy Critical Care Note ---
Critical Care - Asmt/Plan Assessment/Plan: Pulmonary CCM Progress Noted Subjective ROS Limited/Unobtainable: Yes Constitutional: Reports: no symptoms Gastrointestinal/Abdominal: Reports: no symptoms Musculoskeletal: Denies: pain Allergies: Coded Allergies: No Known Allergies (Unverified , 03/08/17) All Systems: reviewed and negative except above Not candidate for Remdesivir - increased LFT's Intubated, on ACVC, FIO2 100, P16, CXR ETT satisfactory,bilateral infiltrates,PICC in position, Prone PRN ABG noted Sedated on the ventilator Propofol/Fentenyl gtt Medications noted Objective Vital Signs noted PE deferred due to COVID 19 Laboratory Tests noted Assessment/Plan Assessment/Plan Acute hypoxemic respiratory failure In ICU on ventilator COVID pneumonia Asthma elevated liver enzymes PLAN ACVC ABG PRN monitor imaging PRN monitor ABG PRN decadron/Antivirals/AB per ID respiratory care Nutrition consult ID noted DVT prophylaxis taper FIO2 as able monitor respiratory status for change impression, plan, and exam edited and reviewed in detail 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 - Objective Last 24 Hour Vital Signs Date Time Temp Pulse Resp B/P (MAP) Pulse Ox O2 Delivery O2 Flow Rate FiO2 07/27/20 13:00 117 24 140/81 (100) 87 07/27/20 12:30 118 27 143/70 (94) 91 07/27/20 12:00 Mechanical Ventilator Mechanical Ventilator 07/27/20 12:00 100 07/27/20 12:00 100.2 119 25 137/71 (93) 88 07/27/20 12:00 122 07/27/20 12:00 100 07/27/20 11:30 137 31 161/100 (120) 89 07/27/20 11:25 125 26 100 07/27/20 11:00 26 Mechanical Ventilator 100 07/27/20 11:00 27 145/116 Mechanical Ventilator 100 07/27/20 11:00 123 27 145/116 (126) 85 07/27/20 10:30 119 26 153/84 (107) 07/27/20 10:16 24 Mechanical Ventilator 100 07/27/20 10:00 112 26 149/90 (109) 94 07/27/20 10:00 26 Mechanical Ventilator 100 07/27/20 10:00 26 149/90 Mechanical Ventilator 100 07/27/20 09:30 113 42 164/76 (105) 93 07/27/20 09:00 119 32 163/89 (113) 83 07/27/20 09:00 32 Mechanical Ventilator 100 07/27/20 09:00 32 163/89 Mechanical Ventilator 100 07/27/20 08:30 115 31 139/74 (95) 93 07/27/20 08:00 100.1 107 30 131/67 (88) 92 07/27/20 08:00 Mechanical Ventilator Mechanical Ventilator 07/27/20 08:00 30 Mechanical Ventilator 100 07/27/20 08:00 30 131/67 Mechanical Ventilator 100 07/27/20 08:00 100 07/27/20 07:58 107 07/27/20 07:30 104 28 123/74 (90) 92 07/27/20 07:25 106 27 100 07/27/20 07:00 26 Mechanical Ventilator 100 07/27/20 07:00 26 133/71 Mechanical Ventilator 100 07/27/20 07:00 103 26 133/71 (91) 92 07/27/20 06:30 103 24 124/64 (84) 91 07/27/20 06:00 28 Mechanical Ventilator 100 07/27/20 06:00 28 125/62 Mechanical Ventilator 100 07/27/20 06:00 100 26 125/62 (83) 91 07/27/20 05:30 100 24 109/67 (81) 90 07/27/20 05:00 99 24 126/68 (87) 91 07/27/20 05:00 28 Mechanical Ventilator 100 07/27/20 05:00 26 116/60 Mechanical Ventilator 100 07/27/20 04:30 93 23 116/65 (82) 89 07/27/20 04:17 28 116/66 Mechanical Ventilator 100 07/27/20 04:16 28 Mechanical Ventilator 100 07/27/20 04:00 98.9 96 28 116/66 (83) 90 07/27/20 04:00 91 07/27/20 04:00 100 07/27/20 04:00 28 Mechanical Ventilator 100 07/27/20 04:00 28 120/80 Mechanical Ventilator 100 07/27/20 04:00 Mechanical Ventilator Mechanical Ventilator 07/27/20 03:30 97 27 125/67 (86) 89 07/27/20 03:00 26 Mechanical Ventilator 100 07/27/20 03:00 26 125/67 Mechanical Ventilator 100 07/27/20 03:00 99 28 133/79 (97) 88 07/27/20 02:49 97 26 100 07/27/20 02:30 100 25 145/78 (100) 84 07/27/20 02:00 26 Mechanical Ventilator 100 07/27/20 02:00 26 145/65 Mechanical Ventilator 100 07/27/20 02:00 90 26 116/72 (87) 81 07/27/20 01:30 93 27 143/68 (93) 81 07/27/20 01:00 26 Mechanical Ventilator 100 07/27/20 01:00 25 136/60 Mechanical Ventilator 100 07/27/20 01:00 90 25 137/68 (91) 89 07/27/20 00:30 92 27 130/69 (89) 85 07/27/20 00:00 94 07/27/20 00:00 Mechanical Ventilator Mechanical Ventilator 07/27/20 00:00 100 07/27/20 00:00 26 Mechanical Ventilator 100 07/27/20 00:00 26 145/71 Mechanical Ventilator 100 07/27/20 00:00 97.6 89 26 131/63 (85) 83 07/26/20 23:30 87 25 122/73 (89) 87 07/26/20 23:00 84 27 130/67 (88) 88 07/26/20 23:00 25 Mechanical Ventilator 100 07/26/20 23:00 25 130/67 Mechanical Ventilator 100 07/26/20 22:30 88 26 149/65 (93) 87 07/26/20 22:00 98 29 100 07/26/20 22:00 22 Mechanical Ventilator 100 07/26/20 22:00 22 132/75 Mechanical Ventilator 100 07/26/20 22:00 85 26 132/75 (94) 89 07/26/20 21:30 88 25 137/65 (89) 89 07/26/20 21:12 25 Mechanical Ventilator 100 07/26/20 21:00 24 Mechanical Ventilator 100 07/26/20 21:00 24 167/89 Mechanical Ventilator 100 07/26/20 21:00 111 35 167/89 (115) 76 07/26/20 20:30 90 30 148/50 (82) 91 07/26/20 20:00 22 Mechanical Ventilator 100 07/26/20 20:00 22 132/65 Mechanical Ventilator 100 07/26/20 20:00 98.5 83 23 132/57 (82) 89 07/26/20 20:00 100 07/26/20 20:00 Mechanical Ventilator Mechanical Ventilator 07/26/20 20:00 85 07/26/20 19:33 114 34 100 07/26/20 19:30 88 22 126/65 (85) 90 07/26/20 19:00 103 27 135/79 (97) 86 07/26/20 19:00 27 Mechanical Ventilator 100 07/26/20 19:00 27 135/79 Mechanical Ventilator 100 07/26/20 18:30 89 21 142/72 (95) 89 07/26/20 18:00 29 Mechanical Ventilator 100 07/26/20 18:00 29 140/65 Mechanical Ventilator 100 07/26/20 18:00 99 29 140/65 (90) 88 07/26/20 17:45 93 27 120/68 (85) 86 07/26/20 17:30 91 35 127/67 (87) 87 07/26/20 17:15 93 25 126/75 (92) 86 07/26/20 17:00 94 25 126/79 (95) 87 07/26/20 17:00 25 Mechanical Ventilator 100 07/26/20 17:00 25 126/79 Mechanical Ventilator 100 07/26/20 16:45 94 27 141/73 (95) 87 07/26/20 16:45 27 141/73 Mechanical Ventilator 100 07/26/20 16:30 91 23 141/73 (95) 85 07/26/20 16:30 23 141/73 Mechanical Ventilator 100 07/26/20 16:15 28 134/69 Mechanical Ventilator 100 07/26/20 16:15 96 28 134/69 (90) 90 07/26/20 16:00 Mechanical Ventilator Mechanical Ventilator 07/26/20 16:00 109 26 177/69 (105) 79 07/26/20 16:00 100 07/26/20 16:00 22 Mechanical Ventilator 100 07/26/20 16:00 26 177/69 Mechanical Ventilator 100 07/26/20 16:00 100 07/26/20 15:45 93 23 116/66 (83) 86 07/26/20 15:45 23 116/66 Mechanical Ventilator 100 07/26/20 15:30 98 22 118/64 (82) 84 12/29/20 15:24 23 104/64 Mechanical Ventilator 100 07/26/20 15:22 22 123/66 Mechanical Ventilator 100 07/26/20 15:15 101 23 104/64 (77) 84 07/26/20 15:15 98 23 100 07/26/20 15:00 99 22 123/66 (85) 84 07/26/20 15:00 22 Mechanical Ventilator 100 07/26/20 14:22 26 105/59 Mechanical Ventilator 100 07/26/20 14:00 95 26 105/59 (74) 89 07/26/20 14:00 22 Mechanical Ventilator 15.0 100 07/26/20 13:59 26 Mechanical Ventilator 100 Accucheck: 236 Critical Care - Subjective ROS Limited/Unobtainable: Yes Condition: critical IV Access: PICC EKG Rhythm: Sinus Rhythm FI02: 100 Vent Support Breath Rate: 26 Vent Support Mode: AC Vent Tidal Volume: 500 Sputum Amount: Scant PEEP: 16.0 PIP: 24 Tube Feeding Amount: 30 I&O: Intake and Output 07/26/20 07/27/20 19:00 07:00 Intake Total 1415.291 ml 1261 ml Output Total 640 ml 1495 ml Balance 775.291 ml -234 ml Free Water 150 ml IV Total 935.291 ml 751 ml Tube Feeding 360 ml 360 ml Other 120 ml Output Urine Total 640 ml 1495 ml ET-Tube: 7.5 ET Position: 22 Chuck Ortega MD Jul 27, 2020 13:37
--- NOTE | 2020-07-27 13:49 | NUR ---
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 100.2 HR 137 RR 27 B/P 161/100 AC 26 TV 500 FIO2 100% PEEP 16 IS: FENTANYL GTT VERSED GTT SOLU MEDROL IV VANCO IV ICU STATUS
--- NOTE | 2020-07-27 13:53 | NUR ---
DRAFTER (CAD) ELECTRONIC NOTES CLINICALS REVIEWED AND FAXED.
--- NOTE | 2020-07-27 14:00 | NUR ---
NURSE NOTES: Turned and repositioned by 2 staff. No respiratory distress.
--- NOTE | 2020-07-27 15:35 | NUR ---
NURSE NOTES: Dr. Ortega at bedside. Informed him that patient was tachypneic and not stable to prone.
[2020-07-27] MEDS ORDERED: Vancomycin 1 GM in NS 275 ML IVPB SCH (18:00)
--- NOTE | 2020-07-27 18:00 | NUR ---
NURSE NOTES: Bed bath provided. No bowel movement noted within the shift.
--- NOTE | 2020-07-27 18:30 | NUR ---
NURSE NOTES: Dr. Cherry at bedside. Informed regarding blood sugar check and insulin administration frequency. MD ordered to change frequency to every 6 hours.
--- NOTE | 2020-07-27 19:29 | NUR ---
NURSE HAND-OFF REPORT: Latest Vital Signs: Temperature 97.0 , Pulse 80 , B/P 129 /81 , Respiratory Rate 30 , O2 SAT 94 , Mechanical Ventilator, O2 Flow Rate . Vital Sign Comment: on fentanyl and versed drip for RASS -2 EKG Rhythm: Sinus Rhythm Rhythm change?: N Latest Bradley Fall Score: 30 Fall Risk: Medium Risk Safety Measures: Call light Within Reach, Bed Alarm Zone 2, Side Rails Side Rails x2, Bed position Low and Locked. Fall Precautions: Yellow Socks Yellow Gown Patient Fall Education Airborne isolation endorsed. Report given to Jose Gomez RN.
--- NOTE | 2020-07-27 19:30 | NUR ---
NURSE NOTES: Received pt from Gloria Gomez RN. Patient Vital signs stable at this time. Patient intubated and lightly sedated on 100% FiO2. Patient tolerating with no sign of distress. SpO2 90% at this time. Patient RASS score -2. Patient calm and cooperative. Pt moves all ext. Pupils equal, PERRLA. Patient on versed and fentanyl drip. Oral gastric tube in place and verified by air auscultation and running vital AF 1.2 at 30mL/hr. No residual noted.Biswas in place. clear, yellow urine noted. skin intact. PICC line noted on left upper arm. Dressing dry, intact, asymptomatic. Blood glucose remains elevated. Will follow up with levemir and novolog as scheduled and continue to monitor. Peripheral pulses equal and strong. Will cont to monitor. Airborne isolation observed.
--- NOTE | 2020-07-27 19:55 | General Progress Note ---
Subjective ROS Limited/Unobtainable: Yes Constitutional: Reports: malaise, weakness HEENT: Reports: no symptoms Cardiovascular: Reports: no symptoms Respiratory: Reports: shortness of breath Gastrointestinal/Abdominal: Reports: difficulty swallowing Genitourinary: Reports: no symptoms Neurologic/Psychiatric: Reports: no symptoms Endocrine: Reports: no symptoms Hematologic/Lymphatic: Reports: no symptoms Allergies: Coded Allergies: No Known Allergies (Unverified , 03/08/17) All Systems: reviewed and negative except above Subjective events noted. doing poorly. remains intubated on 100%fi02 po2 50s. sedated. Objective Last 24 Hour Vital Signs Date Time Temp Pulse Resp B/P (MAP) Pulse Ox O2 Delivery O2 Flow Rate FiO2 07/27/20 19:33 80 30 100 07/27/20 19:00 78 19 129/81 (97) 94 07/27/20 19:00 19 Mechanical Ventilator 100 07/27/20 19:00 19 129/81 Mechanical Ventilator 100 07/27/20 18:38 20 130/78 Mechanical Ventilator 100 07/27/20 18:30 79 26 130/78 (95) 98 07/27/20 18:00 76 20 135/92 (106) 95 07/27/20 18:00 20 Mechanical Ventilator 100 07/27/20 18:00 20 135/92 Mechanical Ventilator 100 07/27/20 17:30 85 14 122/86 (98) 100 07/27/20 17:10 27 Mechanical Ventilator 100 07/27/20 17:00 27 Mechanical Ventilator 100 07/27/20 17:00 27 107/76 Mechanical Ventilator 100 07/27/20 17:00 78 27 107/76 (86) 07/27/20 16:45 80 25 112/71 (85) 07/27/20 16:30 79 27 104/74 (84) 07/27/20 16:15 81 26 106/75 (85) 07/27/20 16:00 Mechanical Ventilator Mechanical Ventilator 07/27/20 16:00 25 Mechanical Ventilator 100 07/27/20 16:00 25 113/75 Mechanical Ventilator 100 07/27/20 16:00 97.0 80 25 113/75 (88) 98 07/27/20 16:00 100 07/27/20 15:56 82 07/27/20 15:45 29 Mechanical Ventilator 100 12/30/20 15:45 76 29 125/83 (97) 99 07/27/20 15:30 78 29 122/82 (95) 07/27/20 15:30 29 Mechanical Ventilator 100 07/27/20 15:25 81 30 100 07/27/20 15:15 78 29 118/80 (93) 07/27/20 15:15 29 Mechanical Ventilator 100 07/27/20 15:00 90 27 113/65 (81) 95 07/27/20 15:00 27 Mechanical Ventilator 100 07/27/20 15:00 27 113/65 Mechanical Ventilator 100 07/27/20 15:00 83 23 113/65 (81) 97 07/27/20 14:30 88 23 127/68 (87) 07/27/20 14:00 22 Mechanical Ventilator 100 07/27/20 14:00 22 132/71 Mechanical Ventilator 100 07/27/20 14:00 97 22 132/71 (91) 90 07/27/20 13:30 103 26 132/91 (105) 92 07/27/20 13:00 24 Endotracheal Tube 100 07/27/20 13:00 24 140/81 Mechanical Ventilator 100 07/27/20 13:00 117 24 140/81 (100) 87 07/27/20 12:30 118 27 143/70 (94) 91 07/27/20 12:00 Mechanical Ventilator Mechanical Ventilator 07/27/20 12:00 100 07/27/20 12:00 100.2 119 25 137/71 (93) 88 07/27/20 12:00 25 Mechanical Ventilator 100 07/27/20 12:00 25 137/71 Mechanical Ventilator 100 07/27/20 12:00 122 07/27/20 12:00 100 07/27/20 11:30 137 31 161/100 (120) 89 07/27/20 11:25 125 26 100 07/27/20 11:00 26 Mechanical Ventilator 100 07/27/20 11:00 27 145/116 Mechanical Ventilator 100 07/27/20 11:00 123 27 145/116 (126) 85 07/27/20 10:30 119 26 153/84 (107) 07/27/20 10:16 24 Mechanical Ventilator 100 07/27/20 10:00 112 26 149/90 (109) 94 07/27/20 10:00 26 Mechanical Ventilator 100 07/27/20 10:00 26 149/90 Mechanical Ventilator 100 07/27/20 09:30 113 42 164/76 (105) 93 07/27/20 09:00 119 32 163/89 (113) 83 07/27/20 09:00 32 Mechanical Ventilator 100 07/27/20 09:00 32 163/89 Mechanical Ventilator 100 07/27/20 08:30 115 31 139/74 (95) 93 07/27/20 08:00 100.1 107 30 131/67 (88) 92 07/27/20 08:00 Mechanical Ventilator Mechanical Ventilator 07/27/20 08:00 30 Mechanical Ventilator 100 07/27/20 08:00 30 131/67 Mechanical Ventilator 100 07/27/20 08:00 100 07/27/20 07:58 107 07/27/20 07:30 104 28 123/74 (90) 92 07/27/20 07:25 106 27 100 07/27/20 07:00 26 Mechanical Ventilator 100 07/27/20 07:00 26 133/71 Mechanical Ventilator 100 07/27/20 07:00 103 26 133/71 (91) 92 07/27/20 06:30 103 24 124/64 (84) 91 07/27/20 06:00 28 Mechanical Ventilator 100 07/27/20 06:00 28 125/62 Mechanical Ventilator 100 07/27/20 06:00 100 26 125/62 (83) 91 07/27/20 05:30 100 24 109/67 (81) 90 07/27/20 05:00 99 24 126/68 (87) 91 07/27/20 05:00 28 Mechanical Ventilator 100 07/27/20 05:00 26 116/60 Mechanical Ventilator 100 07/27/20 04:30 93 23 116/65 (82) 89 07/27/20 04:17 28 116/66 Mechanical Ventilator 100 07/27/20 04:16 28 Mechanical Ventilator 100 07/27/20 04:00 98.9 96 28 116/66 (83) 90 07/27/20 04:00 91 07/27/20 04:00 100 07/27/20 04:00 28 Mechanical Ventilator 100 07/27/20 04:00 28 120/80 Mechanical Ventilator 100 07/27/20 04:00 Mechanical Ventilator Mechanical Ventilator 07/27/20 03:30 97 27 125/67 (86) 89 12/30/20 03:00 26 Mechanical Ventilator 100 07/27/20 03:00 26 125/67 Mechanical Ventilator 100 07/27/20 03:00 99 28 133/79 (97) 88 07/27/20 02:49 97 26 100 07/27/20 02:30 100 25 145/78 (100) 84 07/27/20 02:00 26 Mechanical Ventilator 100 07/27/20 02:00 26 145/65 Mechanical Ventilator 100 07/27/20 02:00 90 26 116/72 (87) 81 07/27/20 01:30 93 27 143/68 (93) 81 07/27/20 01:00 26 Mechanical Ventilator 100 07/27/20 01:00 25 136/60 Mechanical Ventilator 100 07/27/20 01:00 90 25 137/68 (91) 89 07/27/20 00:30 92 27 130/69 (89) 85 07/27/20 00:00 94 07/27/20 00:00 Mechanical Ventilator Mechanical Ventilator 07/27/20 00:00 100 07/27/20 00:00 26 Mechanical Ventilator 100 07/27/20 00:00 26 145/71 Mechanical Ventilator 100 07/27/20 00:00 97.6 89 26 131/63 (85) 83 07/26/20 23:30 87 25 122/73 (89) 87 07/26/20 23:00 84 27 130/67 (88) 88 07/26/20 23:00 25 Mechanical Ventilator 100 07/26/20 23:00 25 130/67 Mechanical Ventilator 100 07/26/20 22:30 88 26 149/65 (93) 87 07/26/20 22:00 98 29 100 07/26/20 22:00 22 Mechanical Ventilator 100 07/26/20 22:00 22 132/75 Mechanical Ventilator 100 07/26/20 22:00 85 26 132/75 (94) 89 07/26/20 21:30 88 25 137/65 (89) 89 07/26/20 21:12 25 Mechanical Ventilator 100 07/26/20 21:00 24 Mechanical Ventilator 100 07/26/20 21:00 24 167/89 Mechanical Ventilator 100 07/26/20 21:00 111 35 167/89 (115) 76 07/26/20 20:30 90 30 148/50 (82) 91 07/26/20 20:00 22 Mechanical Ventilator 100 07/26/20 20:00 22 132/65 Mechanical Ventilator 100 07/26/20 20:00 98.5 83 23 132/57 (82) 89 07/26/20 20:00 100 07/26/20 20:00 Mechanical Ventilator Mechanical Ventilator 07/26/20 20:00 85 Intake and Output 07/26/20 07/27/20 19:00 07:00 Intake Total 1415.291 ml 1261 ml Output Total 640 ml 1495 ml Balance 775.291 ml -234 ml Free Water 150 ml IV Total 935.291 ml 751 ml Tube Feeding 360 ml 360 ml Other 120 ml Output Urine Total 640 ml 1495 ml Laboratory Tests 07/26/20 19:51: POC Whole Blood Glucose [Pending] 07/27/20 00:10: Arterial Blood pH 7.364, Arterial Blood Partial Pressure CO2 59.9*H, Arterial Blood Partial Pressure O2 44.5*L, Arterial Blood HCO3 33.4H, Arterial Blood Oxygen Saturation 80.9*L, Arterial Blood Base Excess 6.0H, Jacob Test Positive 07/27/20 00:50: POC Whole Blood Glucose 163H 07/27/20 04:15: POC Whole Blood Glucose [Pending] 07/27/20 05:00: White Blood Count 18.4H, Red Blood Count 4.37L, Hemoglobin 13.7L, Hematocrit 39.3L, Mean Corpuscular Volume 90, Mean Corpuscular Hemoglobin 31.3H, Mean Co rpuscular Hemoglobin Concent 34.9, Red Cell Distribution Width 12.4, Platelet Count 270, Mean Platelet Volume 6.7, Neutrophils (%) (Auto) , Lymphocytes (%) (Auto) , Monocytes (%) (Auto) , Eosinophils (%) (Auto) , Basophils (%) (Auto) , Differential Total Cells Counted 100, Neutrophils % (Manual) 94H, Lymphocytes % (Manual) 2L, Monocytes % (Manual) 4, Eosinophils % (Manual) 0, Basophils % (Manual) 0, Band Neutrophils 0, Platelet Estimate Adequate, Platelet Morphology Normal, Red Blood Cell Morphology Normal, Sodium Level 138, Potassium Level 3.4L , Chloride Level 98, Carbon Dioxide Level 39H, Anion Gap 2L, Blood Urea Nitrogen 23H, Creatinine 0.7, Estimat Glomerular Filtration Rate > 60, Glucose Level 283H, Calcium Level 8.6, Total Bilirubin 0.6, Aspartate Amino Transf (AST/SGOT) 47H, Alanine Aminotransferase (ALT/SGPT) 48, Alkaline Phosphatase 128H, Total Protein 6.5, Albumin 1.8L, Globulin 4.7, Albumin/Globulin Ratio 0.4L 07/27/20 07:43: Arterial Blood pH 7.409, Arterial Blood Partial Pressure CO2 63.6*H, Arterial Blood Partial Pressure O2 54.6L, Arterial Blood HCO3 39.3H, Arterial Blood Oxygen Saturation 89.6*L, Arterial Blood Base Excess 11.8*H, Jacob Test Positive 07/27/20 09:00: Vancomycin Level Trough 8.3 07/27/20 09:36: POC Whole Blood Glucose 233H 07/27/20 13:28: POC Whole Blood Glucose 236H Height (Feet): 5 Height (Inches): 6.00 Weight (Pounds): 209 Objective deferred Assessment/Plan Problem List: (1) Coronavirus infection ICD Codes: B34.2 - Coronavirus infection, unspecified SNOMED: [id number] Status: not improved Assessment/Plan: vent support resp care prone if able steroids iv abx per ID dvt prophylaxis critical and guarded Rolando Cherry MD Jul 27, 2020 19:55
[2020-07-27] MEDS: Docusate 100mg/10ml Liq NG SCH (20:25)
[2020-07-27] MEDS: Dyna-Hex 2% Top Sol 2oz TOPIC SCH (20:25)
[2020-07-27] MEDS: Vitamin D 1000 units Tab GT SCH (20:26)
--- NOTE | 2020-07-27 21:30 | NUR ---
NURSE NOTES: Called Dr. Ortega and inform him that patient possibly has crepitus based on the crackles felt on patients neck and chest. Order received for STAT CXR.
--- NOTE | 2020-07-27 22:00 | NUR ---
NURSE NOTES: technical sales support specialist at bedside tacking CXR
--- NOTE | 2020-07-27 22:05 | Diagnostic Imaging Report ---
EXAM: XR Chest, 1 View CLINICAL HISTORY: SCREEN TECHNIQUE: Frontal view of the chest. COMPARISON: 07/26/2020. FINDINGS: Lungs: Continued bilateral airspace disease. Pleural space: Unremarkable. No pneumothorax. Heart: No cardiomegaly. Mediastinum: Unremarkable. Bones/joints: No acute osseous abnormality. Soft tissues: New large amount of subcutaneous emphysema in the neck and within the chest. Tubes, lines and devices: ET tube 5.2 cm above the blaine. Enteric tube coursing into the stomach. IMPRESSION: 1. New large amount of subcutaneous emphysema in the neck and within the chest. 2. Continued bilateral airspace disease.
--- NOTE | 2020-07-27 22:49 | NUR ---
NURSE NOTES: Called and informed Dr. Ortega regarding patient CXR result. No New orders at this time.
[2020-07-28] VITALS (48 sets, daily range): BP systolic 99–189; BP diastolic 54–113
--- NOTE | 2020-07-28 00:39 | NUR ---
NURSE NOTES: Patient noted to have sudden change of condition. Patients suddenly becomes tachycardic in the 150s and desaturated into the 60s. CXR stat ordered.
--- NOTE | 2020-07-28 01:39 | NUR ---
NURSE NOTES: Patient still saturating in the 70s. Patient is tachypneic and tachycardic in the 160s. RT at bedside also assessing. Blood pressures are stable.
--- NOTE | 2020-07-28 02:20 | Diagnostic Imaging Report ---
EXAM: XR Chest, 1 View CLINICAL HISTORY: F/U TECHNIQUE: Frontal view of the chest. COMPARISON: Chest x-ray 07/27/2020. FINDINGS: Lungs: Continued diffuse bilateral airspace disease. Pleural space: Unremarkable. No pneumothorax. Heart: No cardiomegaly. Mediastinum: See below. Bones/joints: No acute osseous abnormality. Soft tissues: Subcutaneous emphysema in the neck and chest. Pneumomediastinum. Tubes, lines and devices: ET tube 6.3 cm above the blaine. Enteric tube tip distal stomach. Left PICC line tip overlies the high right atrium. IMPRESSION: 1. Continued diffuse bilateral airspace disease. 2. Subcutaneous emphysema in the neck and chest. Pneumomediastinum.
[2020-07-28] MEDS: Vancomycin 1.25gm Premix IVPB SCH ×3 (02:38→19:28)
--- NOTE | 2020-07-28 02:41 | NUR ---
NURSE NOTES: Patients work of breathing has decreased and HR also decreased and now in [address] Patients saturations have improved and now at 94%. RR is 26. Patient has a fever of 101.2. Cooling measures are in effect. Will continue to monitor
--- NOTE | 2020-07-28 04:00 | NUR ---
NURSE NOTES: Sponge bath given, cooling bath also given, patient has fever of 100.9F. Cooling measures ongoing. Patient tachycardic at [address] ST[address] Blood pressures have been stable. Patient more at ease at this time and saturating at 91%.
[2020-07-28] MEDS: NovoLOG Insulin Flexpen SUBQ SCH ×5 (05:22→23:57)
[2020-07-28] MEDS: fentaNYL 2500mcg/NS 250ml 250 ML IV SCH ×3 (05:23→19:51)
[2020-07-28] MEDS: Midazolam HCl 50mg/10ml vial 50 MG in NS 90 ML IV PRN (05:24)
--- NOTE | 2020-07-28 06:00 | NUR ---
NURSE NOTES: Cooling measures given, patient continues to be tachy with HR now at [address] ST. Patient was given Tylenol earlier for fever. Patients remains unresponsive and currently saturating at 90%.
[2020-07-28 06:12] LABS: HEMATOCRIT 41.1 % (42.0-52.0); HEMOGLOBIN 13.3 G/DL (14.2-18.0); MEAN CORPUSCULAR VOLUME 97 FL (80-99); PLATELET COUNT 276 K/UL (150-450); RED BLOOD COUNT 4.23 M/UL (4.70-6.10); RED CELL DISTRIBUTION WIDTH 12.7 % (11.6-14.8); WHITE BLOOD COUNT 19.6 K/UL (4.8-10.8)
[2020-07-28 07:01] LABS: ALANINE AMINOTRANSFERASE 40 U/L (12-78); ALBUMIN/GLOBULIN RATIO 0.4 (1.0-2.7); ALKALINE PHOSPHATASE 131 U/L (46-116); ANION GAP 2 mmol/L (5-15); ASPARTATE AMINO TRANSFERASE 45 U/L (15-37); BILIRUBIN,TOTAL 0.6 MG/DL (0.2-1.0); BLOOD UREA NITROGEN 25 mg/dL (7-18); CALCIUM 8.5 MG/DL (8.5-10.1); CARBON DIOXIDE 38 MMOL/L (21-32); CHLORIDE 104 MMOL/L (98-107); CREATININE 0.7 MG/DL (0.55-1.30); POTASSIUM 4.1 MMOL/L (3.5-5.1); SODIUM 144 MMOL/L (136-145)
--- NOTE | 2020-07-28 08:00 | NUR ---
NURSE NOTES: Pt was assessed after receiving change of shift report from Jose THAPA. Pt is sedated -2 light sedation per RASS score while maintained on Fentanyl drip 160mcg/hr and Versed drip 5mcg/hr, opens eyes to voice, moves extremities in response to commands. Orally intubated, ETT 7.5 at 22cm lipline with vent settings AC26, VT500, Peep 16, FIO2 100%, O2Sat 80-90%. Subcutaneous emphysema present. ST on cardiac specialist, HR 110-130/hr. Temp 100F axillary. OGT present, with feeding VitalAF infusing at 30ml/hour and with 30ml residuals. Biswas catheter is present, draining cloudy/dark yen urine. Left upper arm double lumen PICC line, and peripheral IV access present on left FA#20G and right FA #22G, all patent/intact. Skin is intact. Bilateral soft wrist restraints are in place to prevent self extubation, vascular/skin integrity remain within normal limits at restraint site. Bed locked/in lowest position, three side rails up. Will continue with plan of care.
--- NOTE | 2020-07-28 08:40 | General Progress Note ---
Subjective ROS Limited/Unobtainable: No Constitutional: Reports: malaise, weakness HEENT: Reports: no symptoms Cardiovascular: Reports: no symptoms Respiratory: Reports: shortness of breath Gastrointestinal/Abdominal: Reports: no symptoms Genitourinary: Reports: no symptoms Neurologic/Psychiatric: Reports: no symptoms Endocrine: Reports: no symptoms Hematologic/Lymphatic: Reports: no symptoms Allergies: Coded Allergies: No Known Allergies (Unverified , 03/08/17) All Systems: reviewed and negative except above Subjective remains intubated. +resp distress. Po2- 40s. vent max settings. has subcut emphysema on cxr. on fentanyl and versed Objective Last 24 Hour Vital Signs Date Time Temp Pulse Resp B/P (MAP) Pulse Ox O2 Delivery O2 Flow Rate FiO2 07/28/20 07:00 110 27 118/82 (94) 93 07/28/20 07:00 26 Mechanical Ventilator 100 07/28/20 07:00 26 118/82 Mechanical Ventilator 100 07/28/20 06:30 114 24 124/68 (86) 93 07/28/20 06:00 115 25 124/64 (84) 92 07/28/20 05:30 118 26 119/70 (86) 92 07/28/20 05:24 Mechanical Ventilator 100 07/28/20 05:23 26 126/73 Mechanical Ventilator 100 07/28/20 05:00 118 27 126/73 (90) 93 07/28/20 05:00 26 Mechanical Ventilator 100 07/28/20 05:00 26 126/73 Mechanical Ventilator 100 07/28/20 04:30 118 26 110/74 (86) 91 07/28/20 04:00 125 07/28/20 04:00 26 Mechanical Ventilator 100 07/28/20 04:00 26 127/71 Mechanical Ventilator 100 07/28/20 04:00 100.8 120 27 127/71 (89) 93 07/28/20 04:00 100 07/28/20 04:00 Mechanical Ventilator Mechanical Ventilator 07/28/20 03:30 123 26 129/80 (96) 91 07/28/20 03:00 125 27 128/69 (88) 94 07/28/20 03:00 26 Mechanical Ventilator 100 07/28/20 03:00 26 133/60 Mechanical Ventilator 100 07/28/20 02:30 130 29 132/77 (95) 92 07/28/20 02:03 163 41 100 07/28/20 02:00 150 34 142/86 (104) 92 07/28/20 02:00 26 Mechanical Ventilator 100 07/28/20 02:00 26 132/77 Mechanical Ventilator 100 07/28/20 01:30 162 44 178/113 (134) 79 07/28/20 01:00 162 37 182/107 (132) 72 07/28/20 01:00 40 Mechanical Ventilator 100 07/28/20 01:00 40 160/101 Mechanical Ventilator 100 07/28/20 00:30 159 35 189/113 (138) 76 07/28/20 00:25 152 41 180/102 (128) 78 07/28/20 00:00 100 07/28/20 00:00 30 Mechanical Ventilator 100 07/28/20 00:00 30 150/75 Mechanical Ventilator 100 07/28/20 00:00 101.0 110 32 166/87 (113) 91 07/28/20 00:00 Mechanical Ventilator Mechanical Ventilator 07/28/20 00:00 110 07/27/20 23:30 99 18 148/86 (106) 93 07/27/20 23:00 91 21 133/69 (90) 90 07/27/20 23:00 26 Mechanical Ventilator 100 07/27/20 23:00 26 148/86 Mechanical Ventilator 100 07/27/20 22:30 91 24 123/71 (88) 92 07/27/20 22:00 90 20 146/79 (101) 93 07/27/20 22:00 26 Mechanical Ventilator 100 07/27/20 22:00 26 146/79 Mechanical Ventilator 100 07/27/20 21:30 84 21 123/78 (93) 93 07/27/20 21:00 86 21 141/89 (106) 94 07/27/20 21:00 26 Mechanical Ventilator 100 07/27/20 21:00 26 123/78 Mechanical Ventilator 100 07/27/20 20:30 85 20 135/72 (93) 96 07/27/20 20:00 95 07/27/20 20:00 Mechanical Ventilator Mechanical Ventilator 07/27/20 20:00 100 07/27/20 20:00 98.3 84 19 146/90 (108) 94 07/27/20 20:00 26 Mechanical Ventilator 100 07/27/20 20:00 26 135/72 Mechanical Ventilator 100 07/27/20 19:33 80 30 100 07/27/20 19:30 78 29 147/84 (105) 97 07/27/20 19:00 78 19 129/81 (97) 94 07/27/20 19:00 19 Mechanical Ventilator 100 07/27/20 19:00 19 129/81 Mechanical Ventilator 100 07/27/20 18:38 20 130/78 Mechanical Ventilator 100 07/27/20 18:30 79 26 130/78 (95) 98 07/27/20 18:00 76 20 135/92 (106) 95 07/27/20 18:00 20 Mechanical Ventilator 100 07/27/20 18:00 20 135/92 Mechanical Ventilator 100 07/27/20 17:30 85 14 122/86 (98) 100 07/27/20 17:10 27 Mechanical Ventilator 100 07/27/20 17:00 27 Mechanical Ventilator 100 07/27/20 17:00 27 107/76 Mechanical Ventilator 100 07/27/20 17:00 78 27 107/76 (86) 07/27/20 16:45 80 25 112/71 (85) 07/27/20 16:30 79 27 104/74 (84) 07/27/20 16:15 81 26 106/75 (85) 07/27/20 16:00 Mechanical Ventilator Mechanical Ventilator 07/27/20 16:00 25 Mechanical Ventilator 100 07/27/20 16:00 25 113/75 Mechanical Ventilator 100 07/27/20 16:00 97.0 80 25 113/75 (88) 98 07/27/20 16:00 100 07/27/20 15:56 82 07/27/20 15:45 29 Mechanical Ventilator 100 07/27/20 15:45 76 29 125/83 (97) 99 07/27/20 15:30 78 29 122/82 (95) 07/27/20 15:30 29 Mechanical Ventilator 100 07/27/20 15:25 81 30 100 07/27/20 15:15 78 29 118/80 (93) 07/27/20 15:15 29 Mechanical Ventilator 100 07/27/20 15:00 90 27 113/65 (81) 95 07/27/20 15:00 27 Mechanical Ventilator 100 07/27/20 15:00 27 113/65 Mechanical Ventilator 100 07/27/20 15:00 83 23 113/65 (81) 97 07/27/20 14:30 88 23 127/68 (87) 07/27/20 14:00 22 Mechanical Ventilator 100 07/27/20 14:00 22 132/71 Mechanical Ventilator 100 07/27/20 14:00 97 22 132/71 (91) 90 07/27/20 13:30 103 26 132/91 (105) 92 07/27/20 13:00 24 Endotracheal Tube 100 07/27/20 13:00 24 140/81 Mechanical Ventilator 100 07/27/20 13:00 117 24 140/81 (100) 87 07/27/20 12:30 118 27 143/70 (94) 91 07/27/20 12:00 Mechanical Ventilator Mechanical Ventilator 07/27/20 12:00 100 07/27/20 12:00 100.2 119 25 137/71 (93) 88 07/27/20 12:00 25 Mechanical Ventilator 100 07/27/20 12:00 25 137/71 Mechanical Ventilator 100 07/27/20 12:00 122 07/27/20 12:00 100 07/27/20 11:30 137 31 161/100 (120) 89 07/27/20 11:25 125 26 100 07/27/20 11:00 26 Mechanical Ventilator 100 07/27/20 11:00 27 145/116 Mechanical Ventilator 100 07/27/20 11:00 123 27 145/116 (126) 85 07/27/20 10:30 119 26 153/84 (107) 07/27/20 10:16 24 Mechanical Ventilator 100 07/27/20 10:00 112 26 149/90 (109) 94 07/27/20 10:00 26 Mechanical Ventilator 100 07/27/20 10:00 26 149/90 Mechanical Ventilator 100 07/27/20 09:30 113 42 164/76 (105) 93 07/27/20 09:00 119 32 163/89 (113) 83 07/27/20 09:00 32 Mechanical Ventilator 100 07/27/20 09:00 32 163/89 Mechanical Ventilator 100 Intake and Output 07/27/20 07/28/20 19:00 07:00 Intake Total 1188.740 ml 1109.167 ml Output Total 590 ml 625 ml Balance 598.740 ml 484.167 ml Free Water 60 ml IV Total 768.740 ml 779.167 ml Tube Feeding 360 ml 270 ml Other 60 ml Output Urine Total 590 ml 625 ml Laboratory Tests 07/27/20 09:00: Vancomycin Level Trough 8.3 07/27/20 09:36: POC Whole Blood Glucose 233H 07/27/20 13:28: POC Whole Blood Glucose 236H 07/27/20 20:25: POC Whole Blood Glucose [Pending] 07/27/20 23:55: POC Whole Blood Glucose 221H 07/28/20 00:50: Arterial Blood pH 7.323L, Arterial Blood Partial Pressure CO2 71.9*H, Arterial Blood Partial Pressure O2 36.7*L, Arterial Blood HCO3 36.5H, Arterial Blood Oxygen Saturation 68.0*L, Arterial Blood Base Excess 7.4H, Jacob Test Positive 07/28/20 04:30: White Blood Count 19.6H, Red Blood Count 4.23L, Hemoglobin 13.3L, Hematocrit 41.1L, Mean Corpuscular Volume 97, Mean Corpuscular Hemoglobin 31.3H, Mean Corpuscular Hemoglobin Concent 32.2, Red Cell Distribution Width 12.7, Platelet Count 276, Mean Platelet Volume 6.3L, Neutrophils (%) (Auto) , Lymphocytes (%) (Auto) , Monocytes (%) (Auto) , Eosinophils (%) (Auto) , Basophils (%) (Auto) , Neutrophils % (Manual) [Pending], Lymphocytes % (Manual) [Pending], Platelet Estimate [Pending], Platelet Morphology [Pending], Sodium Level 144, Potassium Level 4.1, Chloride Level 104, Carbon Dioxide Level 38H, Anion Gap 2L, Blood Urea Nitrogen 25H, Creatinine 0.7, Estimat Glomerular Filtration Rate > 60, Glucose Level 143#H, Calcium Level 8.5, Total Bilirubin 0.6, Aspartate Amino Transf (AST/SGOT) 45H, Alanine Aminotransferase (ALT/SGPT) 40, Alkaline Phosphatase 131H, Total Protein 6.6, Albumin 2.0L, Globulin 4.6, Albumin/Globulin Ratio 0.4L 07/28/20 05:20: POC Whole Blood Glucose [Pending] 07/28/20 08:20: Arterial Blood pH 7.353, Arterial Blood Partial Pressure CO2 65.3*H, Arterial Blood Partial Pressure O2 44.6*L, Arterial Blood HCO3 35.5H, Arterial Blood Oxygen Saturation 79.8*L, Arterial Blood Base Excess 7.5H, Jacob Test Positive Height (Feet): 5 Height (Inches): 6.00 Weight (Pounds): 209 General Appearance: severe distress Neck: supple Cardiovascular: tachycardia Respiratory/Chest: decreased breath sounds Objective deferred Assessment/Plan Problem List: (1) Coronavirus infection ICD Codes: B34.2 - Coronavirus infection, unspecified SNOMED: 440168121 Status: not improved Assessment/Plan: vent support resp care prone if able steroids iv abx per ID dvt prophylaxis try remdesivir now that LFTs normal. d/w brother- aware of limited therapeutic options. asked brother to consider DNR as resuscitation likely futile critical and guarded Rolando Cherry MD Jul 28, 2020 08:40
[2020-07-28] MEDS: Pantoprazole Inj IVP SCH (08:57)
[2020-07-28] MEDS: Enoxaparin 40mg Inj SUBQ SCH ×2 (08:57→20:52)
[2020-07-28] MEDS: Docusate 100mg/10ml Liq NG SCH ×2 (08:57→20:52)
[2020-07-28] MEDS: Solu-MEDROL 40mg Inj IVP SCH ×2 (08:58→20:51)
[2020-07-28] MEDS: HYDROmorphone 1mg/ml Carpuject IVP PRN ×4 (08:58→22:25)
--- NOTE | 2020-07-28 08:58 | NUR ---
NURSE NOTES: Dilaudid was administered 1mg IVP per PRN order by Dr Cherry. Fentanyl drip has been titrated up, currently 180mcg/hr and Versed drip titrated up, currently 10mg/hr to maintain -2 light sedation.
[2020-07-28] MEDS: Ascorbic Acid 500mg tab NG SCH ×2 (08:59→20:51)
[2020-07-28] MEDS: Vitamin B Complex Tab NG SCH (08:59)
[2020-07-28] MEDS: Levemir Flexpen SUBQ SCH ×2 (09:00→21:05)
--- NOTE | 2020-07-28 09:07 | NUR ---
NURSE NOTES: Dr Cherry is at the nurse's station and was updated on pt's current status. MD aware of vital signs trend, AM lab results and most recent ABGs just drawn. MD contacted pt's next of kin/family and code status was changed to DNR. Per MD, "will continue current care including maintaining pt on sedation". Dilaudid is now also added to be administered around the clock per MD/PRN order to "keep pt comfortable".
--- NOTE | 2020-07-28 10:15 | NUR ---
RD ASSESSMENT & RECOMMENDATIONS SEE CARE ACTIVITY FOR COMPLETE ASSESSMENT DAILY ESTIMATED NEEDS: Needs based on Critical care 72kg abw 22-28 kcals/kg 8670-1377 total kcals 1.2-2 g protein/kg 86-144 g total protein 25-30 mL/kg 9001-2805 total fluid mLs NUTRITION DIAGNOSIS: * Swallowing difficulty R/T respiratory failure as evidenced by pt now orally intubated, NPO. * Altered nutrition related lab values r/t hyperglycemia as evidenced by BG POC glu in the 300's, pt on Solumedrol CURRENT DIET:. CURRENT TF: Vital 1.2 @30ml/hr PO DIET RECOMMENDATIONS: . ENTERAL NUTRITION RECOMMENDATIONS: Vital 1.2 for critical care and carb control @ goal of 55ml/hr x24 hrs to provide 1320ml, 1584kcal, 99g prot, 1071ml free water - When medically stable for feeds, initiate Vital 1.2 for critical care and carb control. - Start @30ml/hr for 6 hrs, advance as tolerated 10ml/hr q4-6 hrs to goal - Flush per HOB over 30 degrees ADDITIONAL RECOMMENDATIONS: 1) Rec to check HgA1C for eval 2) Insulin regimen for improved BG- now on levemir + niss 3) Monitor resp status, currently on high flow O2 w/ good po intake Now intubated (07/20), TF recs as above 4) Monitor Diprivan rate for need to adjust TF goal rate Propofol now DC'd. 5) Bowel regimen, last bm 07/20
[2020-07-28] MEDS: Acetaminophen 650mg/20.3ml NG PRN (11:54)
--- NOTE | 2020-07-28 11:54 | NUR ---
NURSE NOTES: Tylenol was administered per PRN order for fever, since temp is now 101F axillary.
[2020-07-28] MEDS: Midazolam HCl 50mg/10ml vial 100 MG in NS 180 ML IV PRN ×2 (12:00→22:02)
--- NOTE | 2020-07-28 12:00 | NUR ---
NURSE NOTES: Versed drip Rx has been renewed and new bag was scanned since old bag is now empty. Pt remains -2 light sedation, while currently on Versed drip at 10mg/hr and Fentanyl drip at 180mcg/hr.
--- NOTE | 2020-07-28 12:15 | CDS Physician Query ---
Clarification is required for compliance, coding accuracy, and to reflect severity of illness for this patient Dear Dr. Rolanod Cherry M.D. Date: 07/28/2020 CDIS Name: Sascha Morris 30-year-old male. He has a history of asthma, to rule out fevers and chills, myalgias approximately one week ago he went to go get tested and had a rapid test that was positive for COVID-19. Clarification is needed for one (or more) of the following conditions in order to accurately assign the "present on admission' indicator. Please choose the answer that best indicates whether the associated condition was present at the time of the order for inpatient admission. Thank you. ASSESSMENT: This is a 30-year-old male admitted with complaints of COVID-19 pneumonia and asthma exacerbation. Assessment : COVID-19 pneumonia, Klebsiella pneumonia [ Jose Kent MD Jul 27, 2020 12:49] LABS; SPUTUM KLEBSIELLA PNEUMONIAE GROWTH: 4+ (07/21/20) Was the "klebsiella pneumonia" Present on admission? [] YES [x] NO [] Clinically Undeterminable Physician signature Date Please also document in your Progress Notes and/or Discharge Summary and indicate if the condition was present on admission. PERLAD
--- NOTE | 2020-07-28 12:36 | CDS Physician Query ---
Clarification is required for compliance, coding accuracy, and to reflect severity of illness for this patient Dear Dr. Rolando Cherry M.D. Date: 07/28/2020 CDI/CDS: Sascha Morris Clinical Documentation Statement: "30-year-old male. He has a history of asthma, to rule out fevers and chills, myalgias approximately one week ago he went to go get tested and had a rapid test that was positive for COVID-19. He had been stable until the last day when he developed worsening shortness of breath. He presented to the emergency room. He was noted to be slightly hypoxic and placed on 2 liters of nasal cannula. Chest x-ray showed bilateral infiltrates consistent with viral pneumonia. " [ H& P Rolando Cherry M.D.. 07/28/20] ASSESSMENT AND PLAN: COVID-19 pneumonia and asthma exacerbation. Clinical Finding Show: Vitals (07/09): T99.1F, Pulse 113, RR 24, BP154/91 SpO2 93% LAB (07/09) : Hemat; WBC 5.1 Chem: Lactic Acid 2.7, Glucose 141, Urines: Ur.bacteria "Few", Ur. Leuk Ivon "-" According to the clinical indications above, please indicate below the condition PHYSICIAN RESPONSE: [ ] Sepsis [x ] Sepsis with organ dysfunction [ ] Septic Shock [ ] SIRS [ ] Not applicable [ ] Other: Present on Admission: Yes No Clinically Undetermined Physician signature Date Please also document in your Progress Notes and/or Discharge Summary and indicate if the condition was present on admission. MTDD
[2020-07-28] MEDS: cefTRIAXone 1 GM in D5W 55 ML IVPB SCH (13:09)
--- NOTE | 2020-07-28 13:10 | NUR ---
NURSE NOTES: Dilaudid 1mg IVP was administered per PRN order and instructions by Dr. Cherry, since pt is hypertensive and tachycardic.
--- NOTE | 2020-07-28 13:41 | Infectious Diseases Prog Note ---
Assessment/Plan Assessment/Plan A: 1. COVID-19 pneumonia. 2. History of asthma. 3. Elevated liver function tests. 4. Fatty liver 5. DM with hyperglycemia 6. Leukocytosis worsening 7. Hypoxic respiratory failure 8. Klebsiella pneumonia 9. Bacteremia PLAN: 1. Continue Methylprednisone 2. Continue isolation. 3. Continue Zosyn & Vancomycin 4. Will f/u Blood culture Subjective ROS Limited/Unobtainable: Yes Constitutional: Denies: fever Allergies: Coded Allergies: No Known Allergies (Unverified , 03/08/17) Objective Last 24 Hour Vital Signs Date Time Temp Pulse Resp B/P (MAP) Pulse Ox O2 Delivery O2 Flow Rate FiO2 07/28/20 12:30 146 35 161/87 (111) 83 07/28/20 12:24 99.9 07/28/20 12:00 100 07/28/20 12:00 27 Mechanical Ventilator 15.0 100 07/28/20 12:00 144 34 119/63 (81) 87 07/28/20 12:00 151 07/28/20 11:30 123 28 125/66 (85) 88 07/28/20 11:00 27 99/63 Mechanical Ventilator 100 07/28/20 11:00 127 28 99/63 (75) 88 07/28/20 10:30 130 24 108/58 (75) 87 07/28/20 10:00 131 27 122/68 (86) 88 07/28/20 10:00 28 122/68 Mechanical Ventilator 100 07/28/20 09:30 131 25 130/75 (93) 88 07/28/20 09:28 100.8 07/28/20 09:00 152 30 142/85 (104) 85 07/28/20 09:00 30 142/85 Mechanical Ventilator 100 07/28/20 08:30 152 31 152/79 (103) 80 07/28/20 08:15 35 Mechanical Ventilator 100 07/28/20 08:00 100 07/28/20 08:00 35 Mechanical Ventilator 100 07/28/20 08:00 30 156/87 Mechanical Ventilator 100 07/28/20 08:00 137 07/28/20 08:00 135 30 156/87 (110) 97 07/28/20 07:45 35 Mechanical Ventilator 100 07/28/20 07:45 35 150/84 Mechanical Ventilator 100 07/28/20 07:40 148 38 100 07/28/20 07:30 146 33 177/104 (128) 91 07/28/20 07:30 35 Mechanical Ventilator 100 07/28/20 07:30 35 156/87 Mechanical Ventilator 100 07/28/20 07:15 35 Mechanical Ventilator 100 07/28/20 07:15 35 177/104 Mechanical Ventilator 100 07/28/20 07:00 110 27 118/82 (94) 93 07/28/20 07:00 26 Mechanical Ventilator 100 07/28/20 07:00 26 118/82 Mechanical Ventilator 100 07/28/20 06:30 114 24 124/68 (86) 93 07/28/20 06:00 115 25 124/64 (84) 92 07/28/20 05:30 118 26 119/70 (86) 92 07/28/20 05:24 Mechanical Ventilator 100 07/28/20 05:23 26 126/73 Mechanical Ventilator 100 07/28/20 05:00 118 27 126/73 (90) 93 07/28/20 05:00 26 Mechanical Ventilator 100 07/28/20 05:00 26 126/73 Mechanical Ventilator 100 07/28/20 04:30 118 26 110/74 (86) 91 07/28/20 04:00 125 07/28/20 04:00 26 Mechanical Ventilator 100 07/28/20 04:00 26 127/71 Mechanical Ventilator 100 07/28/20 04:00 100.8 120 27 127/71 (89) 93 07/28/20 04:00 100 07/28/20 04:00 Mechanical Ventilator Mechanical Ventilator 07/28/20 03:30 123 26 129/80 (96) 91 07/28/20 03:00 125 27 128/69 (88) 94 07/28/20 03:00 26 Mechanical Ventilator 100 07/28/20 03:00 26 133/60 Mechanical Ventilator 100 07/28/20 02:30 130 29 132/77 (95) 92 07/28/20 02:03 163 41 100 07/28/20 02:00 150 34 142/86 (104) 92 07/28/20 02:00 26 Mechanical Ventilator 100 07/28/20 02:00 26 132/77 Mechanical Ventilator 100 07/28/20 01:30 162 44 178/113 (134) 79 07/28/20 01:00 162 37 182/107 (132) 72 07/28/20 01:00 40 Mechanical Ventilator 100 07/28/20 01:00 40 160/101 Mechanical Ventilator 100 07/28/20 00:30 159 35 189/113 (138) 76 07/28/20 00:25 152 41 180/102 (128) 78 07/28/20 00:00 100 07/28/20 00:00 30 Mechanical Ventilator 100 07/28/20 00:00 30 150/75 Mechanical Ventilator 100 07/28/20 00:00 101.0 110 32 166/87 (113) 91 07/28/20 00:00 Mechanical Ventilator Mechanical Ventilator 07/28/20 00:00 110 07/27/20 23:30 99 18 148/86 (106) 93 07/27/20 23:00 91 21 133/69 (90) 90 07/27/20 23:00 26 Mechanical Ventilator 100 07/27/20 23:00 26 148/86 Mechanical Ventilator 100 07/27/20 22:30 91 24 123/71 (88) 92 07/27/20 22:00 90 20 146/79 (101) 93 07/27/20 22:00 26 Mechanical Ventilator 100 07/27/20 22:00 26 146/79 Mechanical Ventilator 100 07/27/20 21:30 84 21 123/78 (93) 93 07/27/20 21:00 86 21 141/89 (106) 94 07/27/20 21:00 26 Mechanical Ventilator 100 07/27/20 21:00 26 123/78 Mechanical Ventilator 100 07/27/20 20:30 85 20 135/72 (93) 96 07/27/20 20:00 95 07/27/20 20:00 Mechanical Ventilator Mechanical Ventilator 07/27/20 20:00 100 07/27/20 20:00 98.3 84 19 146/90 (108) 94 07/27/20 20:00 26 Mechanical Ventilator 100 07/27/20 20:00 26 135/72 Mechanical Ventilator 100 07/27/20 19:33 80 30 100 07/27/20 19:30 78 29 147/84 (105) 97 07/27/20 19:00 78 19 129/81 (97) 94 07/27/20 19:00 19 Mechanical Ventilator 100 07/27/20 19:00 19 129/81 Mechanical Ventilator 100 07/27/20 18:38 20 130/78 Mechanical Ventilator 100 12/30/20 18:30 79 26 130/78 (95) 98 07/27/20 18:00 76 20 135/92 (106) 95 07/27/20 18:00 20 Mechanical Ventilator 100 07/27/20 18:00 20 135/92 Mechanical Ventilator 100 07/27/20 17:30 85 14 122/86 (98) 100 07/27/20 17:10 27 Mechanical Ventilator 100 07/27/20 17:00 27 Mechanical Ventilator 100 07/27/20 17:00 27 107/76 Mechanical Ventilator 100 07/27/20 17:00 78 27 107/76 (86) 07/27/20 16:45 80 25 112/71 (85) 07/27/20 16:30 79 27 104/74 (84) 07/27/20 16:15 81 26 106/75 (85) 07/27/20 16:00 Mechanical Ventilator Mechanical Ventilator 07/27/20 16:00 25 Mechanical Ventilator 100 07/27/20 16:00 25 113/75 Mechanical Ventilator 100 07/27/20 16:00 97.0 80 25 113/75 (88) 98 07/27/20 16:00 100 07/27/20 15:56 82 07/27/20 15:45 29 Mechanical Ventilator 100 07/27/20 15:45 76 29 125/83 (97) 99 07/27/20 15:30 78 29 122/82 (95) 07/27/20 15:30 29 Mechanical Ventilator 100 07/27/20 15:25 81 30 100 07/27/20 15:15 78 29 118/80 (93) 07/27/20 15:15 29 Mechanical Ventilator 100 07/27/20 15:00 90 27 113/65 (81) 95 07/27/20 15:00 27 Mechanical Ventilator 100 07/27/20 15:00 27 113/65 Mechanical Ventilator 100 07/27/20 15:00 83 23 113/65 (81) 97 07/27/20 14:30 88 23 127/68 (87) 07/27/20 14:00 22 Mechanical Ventilator 100 07/27/20 14:00 22 132/71 Mechanical Ventilator 100 07/27/20 14:00 97 22 132/71 (91) 90 Height (Feet): 5 Height (Inches): 6.00 Weight (Pounds): 209 HEENT: other - orally intubated Respiratory/Chest: other - on venitaltor Cardiovascular: tachycardia Abdomen: soft, non tender Extremities: no edema Neurologic/Psychiatric: unresponsiveness Microbiology Date/Time Source Procedure Growth Status 07/26/20 10:00 Blood Blood Culture - Preliminary NO GROWTH AFTER 24 HOURS Resulted 07/26/20 09:50 Blood Blood Culture - Preliminary Gram Positive Cocci Resulted Laboratory Tests Test 07/27/20 20:25 07/27/20 23:55 07/28/20 00:50 07/28/20 04:30 POC Whole Blood Glucose Pending 221 MG/DL (74-106) H Arterial Blood pH 7.323 (7.350-7.450) Arterial Blood Partial Pressure CO2 71.9 mmHg (35.0-45.0) *H Arterial Blood Partial Pressure O2 36.7 mmHg (75.0-100.0) Arterial Blood HCO3 36.5 mmol/L (22.0-26.0) H Arterial Blood Oxygen Saturation 68.0 % (95-100) *L Arterial Blood Base Excess 7.4 (-2-2) H Jacob Test Positive White Blood Count 19.6 K/UL (4.8-10.8) H Red Blood Count 4.23 M/UL (4.70-6.10) L Hemoglobin 13.3 G/DL (14.2-18.0) L Hematocrit 41.1 % (42.0-52.0) L Mean Corpuscular Volume 97 FL (80-99) Mean Corpuscular Hemoglobin 31.3 PG (27.0-31.0) H Mean Corpuscular Hemoglobin Concent 32.2 G/DL (32.0-36.0) Red Cell Distribution Width 12.7 % (11.6-14.8) Platelet Count 276 K/UL (150-450) Mean Platelet Volume 6.3 FL (6.5-10.1) L Neutrophils (%) (Auto) % (45.0-75.0) Lymphocytes (%) (Auto) % (20.0-45.0) Monocytes (%) (Auto) % (1.0-10.0) Eosinophils (%) (Auto) % (0.0-3.0) Basophils (%) (Auto) % (0.0-2.0) Differential Total Cells Counted 100 Neutrophils % (Manual) 91 % (45-75) H Lymphocytes % (Manual) 4 % (20-45) L Monocytes % (Manual) 5 % (1-10) Eosinophils % (Manual) 0 % (0-3) Basophils % (Manual) 0 % (0-2) Band Neutrophils 0 % (0-8) Platelet Estimate Adequate Platelet Morphology Normal Red Blood Cell Morphology Normal Sodium Level 144 MMOL/L (136-145) Potassium Level 4.1 MMOL/L (3.5-5.1) Chloride Level 104 MMOL/L (98-107) Carbon Dioxide Level 38 MMOL/L (21-32) H Anion Gap 2 mmol/L (5-15) L Blood Urea Nitrogen 25 mg/dL (7-18) H Creatinine 0.7 MG/DL (0.55-1.30) Estimat Glomerular Filtration Rate > 60 mL/min (>60) Glucose Level 143 MG/DL (74-106) #H Calcium Level 8.5 MG/DL (8.5-10.1) Total Bilirubin 0.6 MG/DL (0.2-1.0) Aspartate Amino Transf (AST/SGOT) 45 U/L (15-37) H Alanine Aminotransferase (ALT/SGPT) 40 U/L (12-78) Alkaline Phosphatase 131 U/L (46-116) H Total Protein 6.6 G/DL (6.4-8.2) Albumin 2.0 G/DL (3.4-5.0) L Globulin 4.6 g/dL Albumin/Globulin Ratio 0.4 (1.0-2.7) L Test 07/28/20 05:20 07/28/20 08:20 07/28/20 10:10 POC Whole Blood Glucose Pending Arterial Blood pH 7.353 (7.350-7.450) Arterial Blood Partial Pressure CO2 65.3 mmHg (35.0-45.0) *H Arterial Blood Partial Pressure O2 44.6 mmHg (75.0-100.0) Arterial Blood HCO3 35.5 mmol/L (22.0-26.0) H Arterial Blood Oxygen Saturation 79.8 % (95-100) *L Arterial Blood Base Excess 7.5 (-2-2) H Jacob Test Positive Vancomycin Level Trough 16.2 ug/mL (5.0-12.0) H Current Medications Medications (Trade) Dose Ordered Sig/Milagro Route PRN Reason Start Time Stop Time Status Last Admin Dose Admin Acetaminophen (Tylenol) 650 mg Q4H PRN RECTAL Mild Pain (Pain Scale 1-3) 07/24/20 18:15 08/23/20 18:14 07/25/20 11:49 Acetaminophen (Tylenol) 650 mg Q6H PRN NG Mild Pain (Pain Scale 1-3) 07/26/20 08:30 08/25/20 08:29 07/27/20 09:49 Acetaminophen (Tylenol) 650 mg Q6H PRN NG Temp >100.5 07/26/20 08:30 08/25/20 08:29 07/28/20 11:54 Albuterol/ Ipratropium (Combivent Respimat) 2 puff Q2H PRN INH Shortness of Breath 07/09/20 21:45 08/08/20 21:44 07/19/20 09:17 Ascorbic Acid (Vitamin C) 500 mg EVERY 12 HOURS NG 07/26/20 21:00 08/10/20 08:59 07/28/20 08:59 Ceftriaxone Sodium 1 gm/ Dextrose 55 ml @ 110 mls/hr Q24H IVPB 07/25/20 13:00 08/01/20 12:59 07/28/20 13:09 Chlorhexidine Gluconate (Marycarmen-Hex 2%) 1 applic DAILY@2000 TOPIC 07/20/20 20:00 10/18/20 19:59 07/27/20 20:25 Dextrose (Dextrose 50%) 25 ml Q30M PRN IV Hypoglycemia 07/23/20 13:15 10/21/20 13:14 Dextrose (Dextrose 50%) 50 ml Q30M PRN IV Hypoglycemia 07/23/20 13:15 10/21/20 13:14 Dextrose/Sodium Chloride 1,000 ml @ 60 mls/hr [id number] PRN IV WHILE PRONING ONLY 07/24/20 17:45 08/23/20 17:44 07/24/20 18:01 Docusate Sodium (Colace) 100 mg EVERY 12 HOURS NG 07/27/20 21:00 08/26/20 20:59 07/28/20 08:57 Enoxaparin Sodium (Lovenox) 40 mg Q12HR SUBQ 07/26/20 09:00 10/22/20 21:29 07/28/20 08:57 Fentanyl Citrate 250 ml @ 0 mls/hr Q24H IV 07/26/20 16:00 07/28/20 15:59 07/28/20 05:23 Hydromorphone HCl (Dilaudid) 1 mg Q4H PRN IVP For Pain 4-10 07/28/20 08:30 08/04/20 08:29 07/28/20 13:10 Insulin Aspart (NovoLOG) EVERY 6 HOURS SUBQ 07/28/20 00:00 10/21/20 15:59 07/28/20 12:20 Insulin Detemir (Levemir) 26 units EVERY 12 HOURS SUBQ 07/26/20 09:00 10/20/20 08:59 07/28/20 09:00 Methylprednisolone Sodium Succinate (Solu-MEDROL) 40 mg EVERY 12 HOURS IVP 07/25/20 12:30 10/23/20 12:29 07/28/20 08:58 Midazolam HCl 100 mg/Sodium Chloride 200 ml @ 0 mls/hr Q24H PRN IV SEDATION 07/28/20 11:30 07/30/20 11:29 07/28/20 12:00 Ondansetron HCl (Zofran) 4 mg Q6H PRN IVP Nausea & Vomiting 07/09/20 21:45 08/08/20 21:44 Pantoprazole (Protonix) 40 mg DAILY IVP 07/25/20 09:00 08/24/20 08:59 07/28/20 08:57 Promethazine HCl/ Codeine (Phenergan with Codeine) 5 ml Q4H PRN ORAL For Cough 07/11/20 15:15 08/10/20 15:14 07/26/20 18:26 Vancomycin HCl 250 ml @ 166.667 mls/hr Q8H IVPB 07/27/20 11:00 08/01/20 10:59 07/28/20 12:13 Vancomycin HCl (Vanco pharmacy to dose) 1 ea DAILY PRN MISC Per rx protocol 07/26/20 09:00 08/25/20 08:59 Vitamin B Complex (Vitamin B Complex) 1 tab DAILY NG 07/24/20 09:00 10/09/20 08:59 07/28/20 08:59 Vitamin D (Vitamin D) 1,000 unit BEDTIME GT 07/27/20 21:00 08/13/20 09:29 07/27/20 20:26 Mian Wing MD Jul 28, 2020 13:41
--- NOTE | 2020-07-28 14:00 | NUR ---
NURSE NOTES: Spoke with pt's family, who will arrive at 1999 this evening to visit and say "goodbye" to pt. Charge nurse aware.
--- NOTE | 2020-07-28 15:05 | NUR ---
[employer] DeveloperCommunications Lead SI: Respiratory Failure, ETT/Vent Support, T 99.9, HR 128, RR 27, BP 123/64 WBC 19.6, AC 26, TV 500, PEEP 16, FiO2 100, O2 Sat 84 Cxray Continued bilateral airspace disease IS: Midazolam IV Lasix IV Vancomycin IV KCL IVP Lovenox SQ Ceftriaxone IVPB Protonix IV
--- NOTE | 2020-07-28 15:16 | Pulmonology Progress Note ---
Subjective ROS Limited/Unobtainable: Yes Constitutional: Denies: fever Gastrointestinal/Abdominal: Denies: nausea, vomiting, diarrhea Musculoskeletal: Denies: pain Allergies: Coded Allergies: No Known Allergies (Unverified , 03/08/17) All Systems: reviewed and negative except above Subjective not improved still on high oxygen alert Objective Last 24 Hour Vital Signs Date Time Temp Pulse Resp B/P (MAP) Pulse Ox O2 Delivery O2 Flow Rate FiO2 07/28/20 14:30 128 27 123/64 (83) 84 07/28/20 14:00 128 20 111/69 (83) 83 07/28/20 13:40 99.9 07/28/20 13:30 127 26 105/65 (78) 85 07/28/20 13:00 136 25 127/62 (83) 84 07/28/20 12:30 146 35 161/87 (111) 83 07/28/20 12:24 99.9 07/28/20 12:00 100 07/28/20 12:00 27 Mechanical Ventilator 15.0 100 07/28/20 12:00 144 34 119/63 (81) 87 07/28/20 12:00 151 07/28/20 11:30 123 28 125/66 (85) 88 07/28/20 11:00 27 99/63 Mechanical Ventilator 100 07/28/20 11:00 127 28 99/63 (75) 88 07/28/20 10:30 130 24 108/58 (75) 87 07/28/20 10:00 131 27 122/68 (86) 88 07/28/20 10:00 28 122/68 Mechanical Ventilator 100 07/28/20 09:30 131 25 130/75 (93) 88 07/28/20 09:28 100.8 07/28/20 09:00 152 30 142/85 (104) 85 07/28/20 09:00 30 142/85 Mechanical Ventilator 100 07/28/20 08:30 152 31 152/79 (103) 80 07/28/20 08:15 35 Mechanical Ventilator 100 07/28/20 08:00 100 07/28/20 08:00 35 Mechanical Ventilator 100 07/28/20 08:00 30 156/87 Mechanical Ventilator 100 07/28/20 08:00 137 07/28/20 08:00 135 30 156/87 (110) 97 07/28/20 07:45 35 Mechanical Ventilator 100 07/28/20 07:45 35 150/84 Mechanical Ventilator 100 07/28/20 07:40 148 38 100 07/28/20 07:30 146 33 177/104 (128) 91 07/28/20 07:30 35 Mechanical Ventilator 100 07/28/20 07:30 35 156/87 Mechanical Ventilator 100 07/28/20 07:15 35 Mechanical Ventilator 100 07/28/20 07:15 35 177/104 Mechanical Ventilator 100 07/28/20 07:00 110 27 118/82 (94) 93 07/28/20 07:00 26 Mechanical Ventilator 100 07/28/20 07:00 26 118/82 Mechanical Ventilator 100 07/28/20 06:30 114 24 124/68 (86) 93 07/28/20 06:00 115 25 124/64 (84) 92 07/28/20 05:30 118 26 119/70 (86) 92 07/28/20 05:24 Mechanical Ventilator 100 07/28/20 05:23 26 126/73 Mechanical Ventilator 100 07/28/20 05:00 118 27 126/73 (90) 93 07/28/20 05:00 26 Mechanical Ventilator 100 07/28/20 05:00 26 126/73 Mechanical Ventilator 100 07/28/20 04:30 118 26 110/74 (86) 91 07/28/20 04:00 125 07/28/20 04:00 26 Mechanical Ventilator 100 07/28/20 04:00 26 127/71 Mechanical Ventilator 100 07/28/20 04:00 100.8 120 27 127/71 (89) 93 07/28/20 04:00 100 07/28/20 04:00 Mechanical Ventilator Mechanical Ventilator 07/28/20 03:30 123 26 129/80 (96) 91 07/28/20 03:00 125 27 128/69 (88) 94 07/28/20 03:00 26 Mechanical Ventilator 100 07/28/20 03:00 26 133/60 Mechanical Ventilator 100 07/28/20 02:30 130 29 132/77 (95) 92 07/28/20 02:03 163 41 100 07/28/20 02:00 150 34 142/86 (104) 92 07/28/20 02:00 26 Mechanical Ventilator 100 07/28/20 02:00 26 132/77 Mechanical Ventilator 100 07/28/20 01:30 162 44 178/113 (134) 79 07/28/20 01:00 162 37 182/107 (132) 72 07/28/20 01:00 40 Mechanical Ventilator 100 07/28/20 01:00 40 160/101 Mechanical Ventilator 100 07/28/20 00:30 159 35 189/113 (138) 76 07/28/20 00:25 152 41 180/102 (128) 78 07/28/20 00:00 100 07/28/20 00:00 30 Mechanical Ventilator 100 07/28/20 00:00 30 150/75 Mechanical Ventilator 100 07/28/20 00:00 101.0 110 32 166/87 (113) 91 07/28/20 00:00 Mechanical Ventilator Mechanical Ventilator 07/28/20 00:00 110 07/27/20 23:30 99 18 148/86 (106) 93 07/27/20 23:00 91 21 133/69 (90) 90 07/27/20 23:00 26 Mechanical Ventilator 100 07/27/20 23:00 26 148/86 Mechanical Ventilator 100 07/27/20 22:30 91 24 123/71 (88) 92 07/27/20 22:00 90 20 146/79 (101) 93 07/27/20 22:00 26 Mechanical Ventilator 100 07/27/20 22:00 26 146/79 Mechanical Ventilator 100 07/27/20 21:30 84 21 123/78 (93) 93 07/27/20 21:00 86 21 141/89 (106) 94 07/27/20 21:00 26 Mechanical Ventilator 100 07/27/20 21:00 26 123/78 Mechanical Ventilator 100 07/27/20 20:30 85 20 135/72 (93) 96 07/27/20 20:00 95 07/27/20 20:00 Mechanical Ventilator Mechanical Ventilator 07/27/20 20:00 100 07/27/20 20:00 98.3 84 19 146/90 (108) 94 07/27/20 20:00 26 Mechanical Ventilator 100 07/27/20 20:00 26 135/72 Mechanical Ventilator 100 07/27/20 19:33 80 30 100 07/27/20 19:30 78 29 147/84 (105) 97 07/27/20 19:00 78 19 129/81 (97) 94 07/27/20 19:00 19 Mechanical Ventilator 100 12/30/20 19:00 19 129/81 Mechanical Ventilator 100 07/27/20 18:38 20 130/78 Mechanical Ventilator 100 07/27/20 18:30 79 26 130/78 (95) 98 07/27/20 18:00 76 20 135/92 (106) 95 07/27/20 18:00 20 Mechanical Ventilator 100 07/27/20 18:00 20 135/92 Mechanical Ventilator 100 07/27/20 17:30 85 14 122/86 (98) 100 07/27/20 17:10 27 Mechanical Ventilator 100 07/27/20 17:00 27 Mechanical Ventilator 100 07/27/20 17:00 27 107/76 Mechanical Ventilator 100 07/27/20 17:00 78 27 107/76 (86) 07/27/20 16:45 80 25 112/71 (85) 07/27/20 16:30 79 27 104/74 (84) 07/27/20 16:15 81 26 106/75 (85) 07/27/20 16:00 Mechanical Ventilator Mechanical Ventilator 07/27/20 16:00 25 Mechanical Ventilator 100 07/27/20 16:00 25 113/75 Mechanical Ventilator 100 07/27/20 16:00 97.0 80 25 113/75 (88) 98 07/27/20 16:00 100 07/27/20 15:56 82 07/27/20 15:45 29 Mechanical Ventilator 100 07/27/20 15:45 76 29 125/83 (97) 99 07/27/20 15:30 78 29 122/82 (95) 07/27/20 15:30 29 Mechanical Ventilator 100 07/27/20 15:25 81 30 100 Intake and Output 07/27/20 07/28/20 19:00 07:00 Intake Total 1188.740 ml 1109.167 ml Output Total 590 ml 625 ml Balance 598.740 ml 484.167 ml Free Water 60 ml IV Total 768.740 ml 779.167 ml Tube Feeding 360 ml 270 ml Other 60 ml Output Urine Total 590 ml 625 ml Objective deferred due to COVID Microbiology Date/Time Source Procedure Growth Status 07/26/20 10:00 Blood Blood Culture - Preliminary NO GROWTH AFTER 24 HOURS Resulted 07/26/20 09:50 Blood Blood Culture - Preliminary Gram Positive Cocci Resulted Laboratory Tests 07/27/20 20:25: POC Whole Blood Glucose [Pending] 07/27/20 23:55: POC Whole Blood Glucose 221H 07/28/20 00:50: Arterial Blood pH 7.323L, Arterial Blood Partial Pressure CO2 71.9*H, Arterial Blood Partial Pressure O2 36.7*L, Arterial Blood HCO3 36.5H, Arterial Blood Oxygen Saturation 68.0*L, Arterial Blood Base Excess 7.4H, Jacob Test Positive 07/28/20 04:30: White Blood Count 19.6H, Red Blood Count 4.23L, Hemoglobin 13.3L, Hematocrit 41.1L, Mean Corpuscular Volume 97, Mean Corpuscular Hemoglobin 31.3H, Mean Corpuscular Hemoglobin Concent 32.2, Red Cell Distribution Width 12.7, Platelet Count 276, Mean Platelet Volume 6.3L, Neutrophils (%) (Auto) , Lymphocytes (%) (Auto) , Monocytes (%) (Auto) , Eosinophils (%) (Auto) , Basophils (%) (Auto) , Differential Total Cells Counted 100, Neutrophils % (Manual) 91H, Lymphocytes % (Manual) 4L, Monocytes % (Manual) 5, Eosinophils % (Manual) 0, Basophils % (Manual) 0, Band Neutrophils 0, Platelet Estimate Adequate, Platelet Morphology Normal, Red Blood Cell Morphology Normal, Sodium Level 144, Potassium Level 4.1, Chloride Level 104, Carbon Dioxide Level 38H, Anion Gap 2L, Blood Urea Nitrogen 25H, Creatinine 0.7, Estimat Glomerular Filtration Rate > 60, Glucose Level 143#H, Calcium Level 8.5, Total Bilirubin 0.6, Aspartate Amino Transf (AST/SGOT) 45H, Alanine Aminotransferase (ALT/SGPT) 40, Alkaline Phosphatase 131H, Total Protein 6.6, Albumin 2.0L, Globulin 4.6, Albumin/Globulin Ratio 0.4L 07/28/20 05:20: POC Whole Blood Glucose [Pending] 07/28/20 08:20: Arterial Blood pH 7.353, Arterial Blood Partial Pressure CO2 65.3*H, Arterial Blood Partial Pressure O2 44.6*L, Arterial Blood HCO3 35.5H, Arterial Blood Oxygen Saturation 79.8*L, Arterial Blood Base Excess 7.5H, Jacob Test Positive 07/28/20 10:10: Vancomycin Level Trough 16.2H Current Medications Medications (Trade) Dose Ordered Sig/Milagro Route PRN Reason Start Time Stop Time Status Last Admin Dose Admin Acetaminophen (Tylenol) 650 mg Q4H PRN RECTAL Mild Pain (Pain Scale 1-3) 07/24/20 18:15 08/23/20 18:14 07/25/20 11:49 Acetaminophen (Tylenol) 650 mg Q6H PRN NG Mild Pain (Pain Scale 1-3) 07/26/20 08:30 08/25/20 08:29 07/27/20 09:49 Acetaminophen (Tylenol) 650 mg Q6H PRN NG Temp >100.5 07/26/20 08:30 08/25/20 08:29 07/28/20 11:54 Albuterol/ Ipratropium (Combivent Respimat) 2 puff Q2H PRN INH Shortness of Breath 07/09/20 21:45 08/08/20 21:44 07/19/20 09:17 Ascorbic Acid (Vitamin C) 500 mg EVERY 12 HOURS NG 07/26/20 21:00 08/10/20 08:59 07/28/20 08:59 Ceftriaxone Sodium 1 gm/ Dextrose 55 ml @ 110 mls/hr Q24H IVPB 07/25/20 13:00 08/01/20 12:59 07/28/20 13:09 Chlorhexidine Gluconate (Marycarmen-Hex 2%) 1 applic DAILY@2000 TOPIC 07/20/20 20:00 10/18/20 19:59 07/27/20 20:25 Dextrose (Dextrose 50%) 25 ml Q30M PRN IV Hypoglycemia 07/23/20 13:15 10/21/20 13:14 Dextrose (Dextrose 50%) 50 ml Q30M PRN IV Hypoglycemia 07/23/20 13:15 10/21/20 13:14 Dextrose/Sodium Chloride 1,000 ml @ 60 mls/hr [id number] PRN IV WHILE PRONING ONLY 07/24/20 17:45 08/23/20 17:44 07/24/20 18:01 Docusate Sodium (Colace) 100 mg EVERY 12 HOURS NG 07/27/20 21:00 08/26/20 20:59 07/28/20 08:57 Enoxaparin Sodium (Lovenox) 40 mg Q12HR SUBQ 07/26/20 09:00 10/22/20 21:29 07/28/20 08:57 Fentanyl Citrate 250 ml @ 0 mls/hr Q24H IV 07/26/20 16:00 07/28/20 15:59 07/28/20 05:23 Hydromorphone HCl (Dilaudid) 1 mg Q4H PRN IVP For Pain 4-10 07/28/20 08:30 08/04/20 08:29 07/28/20 13:10 Insulin Aspart (NovoLOG) EVERY 6 HOURS SUBQ 07/28/20 00:00 10/21/20 15:59 07/28/20 12:20 Insulin Detemir (Levemir) 26 units EVERY 12 HOURS SUBQ 07/26/20 09:00 10/20/20 08:59 07/28/20 09:00 Methylprednisolone Sodium Succinate (Solu-MEDROL) 40 mg EVERY 12 HOURS IVP 07/25/20 12:30 10/23/20 12:29 07/28/20 08:58 Midazolam HCl 100 mg/Sodium Chloride 200 ml @ 0 mls/hr Q24H PRN IV SEDATION 07/28/20 11:30 07/30/20 11:29 07/28/20 12:00 Ondansetron HCl (Zofran) 4 mg Q6H PRN IVP Nausea & Vomiting 07/09/20 21:45 08/08/20 21:44 Pantoprazole (Protonix) 40 mg DAILY IVP 07/25/20 09:00 08/24/20 08:59 07/28/20 08:57 Promethazine HCl/ Codeine (Phenergan with Codeine) 5 ml Q4H PRN ORAL For Cough 07/11/20 15:15 08/10/20 15:14 07/26/20 18:26 Vancomycin HCl 250 ml @ 166.667 mls/hr Q8H IVPB 07/27/20 11:00 08/01/20 10:59 07/28/20 12:13 Vancomycin HCl (Vanco pharmacy to dose) 1 ea DAILY PRN MISC Per rx protocol 07/26/20 09:00 08/25/20 08:59 Vitamin B Complex (Vitamin B Complex) 1 tab DAILY NG 07/24/20 09:00 10/09/20 08:59 07/28/20 08:59 Vitamin D (Vitamin D) 1,000 unit BEDTIME GT 07/27/20 21:00 08/13/20 09:29 07/27/20 20:26 Assessment/Plan Assessment/Plan acute hypoxemic respiratory failure COVID pneumonia Asthma elevated liver enzymes PLAN now DNR monitor imaging monitor ABG respiratory care ID noted DVT prophylaxis taper oxygen as able monitor respiratory status for change medications/laboratory data/nursing notes/ICU care reviewed in detail note reviewed and edited care discussed with RN and RT ICU time spent >40 minutes Elfego Price MD Jul 28, 2020 15:16
[2020-07-28] MEDS ORDERED: fentaNYL 2500mcg/NS 250ml 250 ML IV SCH (16:00)
--- NOTE | 2020-07-28 16:00 | NUR ---
NURSE NOTES: Fentanyl drip Rx has been renewed and rate is maintained at 180mcg/hr to maintain -2 light sedation on RASS score. Pt was cleaned, cold bed-bath give for cooling measures. Gown/bed linens were changed. Pt was repositioned for comfort. Cooling blanket is added with rectal thermometer to continuously monitor temp.
--- NOTE | 2020-07-28 17:38 | NUR ---
NURSE NOTES: Dilaudid 1mg IVP was administered per PRN order and instructions by Dr. Cherry, since pt is hypertensive and tachycardic.
--- NOTE | 2020-07-28 19:15 | NUR ---
NURSE HAND-OFF REPORT: Latest Vital Signs: Temperature 100.7 , Pulse 144 , B/P 165 /96 , Respiratory Rate 38 , O2 SAT 72 , Mechanical Ventilator, ETT 7.5 at 22cm lipline with vent settings, AC26, VT500, Peep 16, FIO2 100%. Vital Sign Comment: Pt is maintained sedation while on Fentanyl and Versed drip and Dilaudid being administered D1petol per Dr Cherry's instructions to "keep pt comfortable". EKG Rhythm: Sinus Tachycardia Rhythm change?: N MD Notified?: Y -Dr. Jo Ann METCALF Response: Latest Brdaley Fall Score: 30 Fall Risk: Medium Risk Safety Measures: Call light Within Reach, Bed Alarm Zone 2, Side Rails Side Rails x2, Bed position Low and Locked. Fall Precautions: Yellow Socks Yellow Gown Patient Fall Education Report given to Carola THAPA. Endorsed plan of care.
[2020-07-28] MEDS: Dyna-Hex 2% Top Sol 2oz TOPIC SCH (19:37)
--- NOTE | 2020-07-28 19:40 | NUR ---
NURSE NOTES: Received report from ELIER Martin. Pt is sedated on the bed with RASS score -2. Pt has ETT and orally intubated. Vent dependent and setting with AC: 26, T: 500, P:16 FiO2 100% and SaO2 64-68% noted. MD aware and comfort care. code status order is DNR. on cardiac technician with ST. Noted subcutaneous emphysema on upper chest neck area. Pt has OGT and on running with Vital AF @ 30cc/hr and noted 20cc residual. Keep HOP position. Noted BT : 102.8F by rectal and Keep cooling measure with cooling blanket. Pt has Biswas cath and drainage well. Pt has Lt. upper arm PICC line and dressing is clean and dry. On running with Versed @ 10mg/hr and fentanyl drip @ 180mcg/hr. Placed fall precaution. on proper isolation and fro COVID -19. Will continue to care plan.
--- NOTE | 2020-07-28 20:30 | NUR ---
NURSE NOTES: Family visited and see the Pt. Updated Pt's condition. Family berry picker the his belongings included cell phone.
[2020-07-28] MEDS ORDERED: NS 275ml ONE (20:45)
[2020-07-28] MEDS ORDERED: Tubing IV Secondary IV ONE (20:45)
[2020-07-28] MEDS ORDERED: D5 1/2NS 1000ml IV ONE (20:45)
[2020-07-28] MEDS ORDERED: NS 500ML ONE (20:45)
[2020-07-28] MEDS: Vitamin D 1000 units Tab GT SCH (20:51)
--- NOTE | 2020-07-28 22:00 | NUR ---
NURSE NOTES: Noted BT:100.2F. Keep cooling measure. Keep comfort care. On running Fentanyl drip @ 180mcg/hr and Versed @ 10mg/ht and RASS score -2. changed position. SaO2 78% with current Vent setting. Given suction and oral care. Will continue to monitor any change of condition.
[2020-07-29] VITALS (35 sets, daily range): BP systolic 103–175; BP diastolic 58–102
--- NOTE | 2020-07-29 | NUR ---
NURSE NOTES: Pt is sedated on the bed RASS-2. Noted BT: 98.9F and Keep cooling measure. On running with OGT feeding @ 30cc/hr. Keep HOB. on running with Fentanyl drip @ 180mcg/hr and Versed @ 10mg/hr. Given suction and oral care. SaO2 86% with Vent setting FiO2 100. Turn and reposition. Still noted. Generalized swelling. Placed fall precaution. Will continue to monitor any change of of condition.
--- NOTE | 2020-07-29 02:00 | NUR ---
NURSE NOTES: SaO2 89% with current Vent setting. Provided suction and mouth care. Turn and reposition. will continue to monitor any change of condition.
[2020-07-29] MEDS: Vancomycin 1.25gm Premix IVPB SCH ×3 (03:07→18:16)
[2020-07-29] MEDS: HYDROmorphone 1mg/ml Carpuject IVP PRN ×2 (03:17→21:27)
--- NOTE | 2020-07-29 04:00 | NUR ---
NURSE NOTES: Cleaned Pt and applied lotion and cream. collected blood sample. Noted BT: 97.9F. SaO2 87% with current Vent setting. On running with Vital AF @ 30cc/hr and still noted residual 20cc. Keep HOB. Biswas patent and drainage well and still noted sedimentation. Noted Swelling on the whole body. turn and reposition. Will continue to monitor any change of condition.
--- NOTE | 2020-07-29 06:00 | NUR ---
NURSE NOTES: Pt is sedated on the bed and RASS -2. On running with Fentanyl @ 180mcg/hr and Versed @ 10mg/hr. SaO2 87% with Vent. BT: 97.9F by rectal. Reposition. will continue to monitor.
[2020-07-29] MEDS: NovoLOG Insulin Flexpen SUBQ SCH ×3 (06:03→18:16)
--- NOTE | 2020-07-29 06:58 | NUR ---
RESPIRATORY NOTE: PT RECEIVED ON CMV WITH CURRENT SETTINGS: 26, 500, 100%, +16. ALARMS ARE ON AND AUDIBLE. VENT CIRCUIT IS SECURE AND OUT OF THE WAY. AIRWAY IS SECURE AND PATENT. WILL CONTINUE TO CLOSELY MONITOR.
--- NOTE | 2020-07-29 07:27 | NUR ---
NURSE HAND-OFF REPORT: Latest Vital Signs: Temperature 97.9 , Pulse 99 , B/P 108 /70 , Respiratory Rate 21 , O2 SAT 89 , Mechanical Ventilator, O2 Flow Rate . Vital Sign Comment: EKG Rhythm: Sinus Rhythm Rhythm change?: N Notified?: Ildefonso Cherry MD Response: Latest Bradley Fall Score: 45 Fall Risk: High Risk Safety Measures: Call light Within Reach, Bed Alarm Zone 2, Side Rails Side Rails x2, Bed position Low and Locked. Fall Precautions: Yellow Socks Yellow Gown Patient Fall Education Report given to ELIER Bagley. Pt is sedated on the bed and RASS -2. On running with Versed @ 10mg/hr and Fentanyl @ 180mcg/hr. SaO2 89% with current Vent setting.
--- NOTE | 2020-07-29 07:30 | NUR ---
NURSE NOTES: Report received from Carola Ulrich.Pt resting quietly in bed non responsive to verbal stimuli,orally intubated,ETT7.5 lip line 23 AC26,TV 500 Fio2 100% Peep16,no resp distress presented,with OGT feeding Vital AF1.2 at 30 ml/hr in placed no residual noted,Biswas cath draining yellow urine,,skin warm and dry with IV PICC line to DANIEL and PIV RFA.Pt with Fentanyl drip at 180 mcg /hr and Verssed 10 mg /hr, for comfort care.,SR up x HOB elevated bed lock in lowest position will continue with plans of care.
--- NOTE | 2020-07-29 08:08 | General Progress Note ---
Subjective ROS Limited/Unobtainable: No Constitutional: Reports: malaise, weakness HEENT: Reports: no symptoms Cardiovascular: Reports: no symptoms Respiratory: Reports: cough, shortness of breath Gastrointestinal/Abdominal: Reports: difficulty swallowing Genitourinary: Reports: no symptoms Neurologic/Psychiatric: Reports: anxiety Endocrine: Reports: no symptoms Hematologic/Lymphatic: Reports: no symptoms Allergies: Coded Allergies: No Known Allergies (Unverified , 03/08/17) All Systems: reviewed and negative except above Subjective no change. remains orally intubated and sedated. sats low 90s. appears more comfortable Objective Last 24 Hour Vital Signs Date Time Temp Pulse Resp B/P (MAP) Pulse Ox O2 Delivery O2 Flow Rate FiO2 07/29/20 07:00 21 108/70 Mechanical Ventilator 100 07/29/20 07:00 21 Mechanical Ventilator 100 07/29/20 07:00 99 21 108/70 (83) 89 07/29/20 06:30 91 23 103/68 (80) 88 07/29/20 06:00 21 114/62 Mechanical Ventilator 100 07/29/20 06:00 21 Mechanical Ventilator 100 07/29/20 06:00 92 21 114/62 (79) 87 07/29/20 05:30 97 23 112/58 (76) 87 07/29/20 05:00 22 113/68 Mechanical Ventilator 100 07/29/20 05:00 22 Mechanical Ventilator 100 07/29/20 05:00 95 22 113/68 (83) 88 07/29/20 04:30 96 20 107/63 (78) 88 07/29/20 04:00 Mechanical Ventilator Mechanical Ventilator 07/29/20 04:00 100 07/29/20 04:00 17 117/68 Mechanical Ventilator 100 07/29/20 04:00 17 Mechanical Ventilator 100 07/29/20 04:00 97.9 98 17 117/68 (84) 87 07/29/20 04:00 98 07/29/20 03:30 91 20 138/71 (93) 86 07/29/20 03:24 108 26 100 07/29/20 03:00 86 16 126/71 (89) 90 07/29/20 03:00 16 126/71 Mechanical Ventilator 100 07/29/20 03:00 16 Mechanical Ventilator 100 07/29/20 02:30 93 18 129/72 (91) 90 07/29/20 02:00 17 151/59 Mechanical Ventilator 100 07/29/20 02:00 17 Mechanical Ventilator 100 07/29/20 02:00 91 17 151/99 (116) 89 07/29/20 01:30 103 17 141/95 (110) 87 07/29/20 01:00 22 122/81 Mechanical Ventilator 100 07/29/20 01:00 22 Mechanical Ventilator 100 07/29/20 01:00 106 22 122/81 (95) 87 07/29/20 00:30 118 23 121/68 (85) 86 07/29/20 00:00 Mechanical Ventilator Mechanical Ventilator 07/29/20 00:00 23 119/66 Mechanical Ventilator 100 07/29/20 00:00 23 Mechanical Ventilator 100 07/29/20 00:00 98.9 117 23 119/66 (83) 86 07/29/20 00:00 120 07/28/20 23:30 120 22 127/70 (89) 85 07/28/20 23:15 121 26 100 07/28/20 23:00 24 109/74 Mechanical Ventilator 100 07/28/20 23:00 24 Mechanical Ventilator 100 07/28/20 23:00 99.3 120 24 109/74 (86) 80 07/28/20 22:30 124 24 114/67 (83) 80 07/28/20 22:02 21 Mechanical Ventilator 100 07/28/20 22:00 25 131/75 Mechanical Ventilator 100 07/28/20 22:00 25 Mechanical Ventilator 100 07/28/20 22:00 131 25 131/75 (93) 78 07/28/20 21:30 127 22 128/77 (94) 75 07/28/20 21:00 24 133/77 Mechanical Ventilator 100 07/28/20 21:00 24 Mechanical Ventilator 100 07/28/20 21:00 101.0 130 24 133/77 (95) 72 07/28/20 20:30 143 32 164/99 (120) 70 07/28/20 20:00 102.6 155 35 170/85 (113) 68 07/28/20 20:00 Mechanical Ventilator Mechanical Ventilator 07/28/20 20:00 35 170/85 Mechanical Ventilator 100 07/28/20 20:00 35 Mechanical Ventilator 100 07/28/20 20:00 144 07/28/20 20:00 100 07/28/20 19:51 38 165/96 Mechanical Ventilator 100 07/28/20 19:30 144 32 165/96 (119) 72 07/28/20 19:10 145 30 100 07/28/20 19:00 100.7 147 29 153/86 (108) 69 07/28/20 19:00 25 Mechanical Ventilator 100 07/28/20 19:00 22 153/86 Mechanical Ventilator 100 07/28/20 18:08 99.9 07/28/20 18:00 20 Mechanical Ventilator 100 07/28/20 18:00 24 150/76 Mechanical Ventilator 100 07/28/20 18:00 154 29 141/80 (100) 61 07/28/20 17:30 172 42 165/81 (109) 73 07/28/20 17:00 30 Mechanical Ventilator 100 07/28/20 17:00 35 161/81 Mechanical Ventilator 100 07/28/20 17:00 172 43 161/81 (107) 68 07/28/20 16:30 169 40 169/86 (113) 70 07/28/20 16:00 37 Mechanical Ventilator 100 07/28/20 16:00 37 155/95 Mechanical Ventilator 100 07/28/20 16:00 100 07/28/20 16:00 161 39 155/95 (115) 74 07/28/20 16:00 Mechanical Ventilator Mechanical Ventilator 07/28/20 15:30 152 36 133/86 (102) 82 07/28/20 15:00 128 36 110/54 (72) 88 07/28/20 15:00 28 Mechanical Ventilator 100 07/28/20 15:00 28 110/54 Mechanical Ventilator 100 07/28/20 14:30 128 27 123/64 (83) 84 07/28/20 14:00 128 20 111/69 (83) 83 07/28/20 14:00 27 Mechanical Ventilator 100 07/28/20 14:00 24 105/65 Mechanical Ventilator 100 07/28/20 13:40 99.9 07/28/20 13:30 127 26 105/65 (78) 85 07/28/20 13:20 126 35 100 07/28/20 13:00 35 Mechanical Ventilator 100 07/28/20 13:00 35 167/97 Mechanical Ventilator 100 07/28/20 13:00 136 25 127/62 (83) 84 07/28/20 12:30 146 35 161/87 (111) 83 07/28/20 12:24 99.9 07/28/20 12:00 100 07/28/20 12:00 27 Mechanical Ventilator 15.0 100 07/28/20 12:00 26 Mechanical Ventilator 100 07/28/20 12:00 34 119/63 Mechanical Ventilator 100 07/28/20 12:00 144 34 119/63 (81) 87 07/28/20 12:00 151 07/28/20 12:00 Mechanical Ventilator Mechanical Ventilator 07/28/20 11:30 123 28 125/66 (85) 88 07/28/20 11:00 28 Endotracheal Tube 100 07/28/20 11:00 27 99/63 Mechanical Ventilator 100 07/28/20 11:00 127 28 99/63 (75) 88 07/28/20 10:30 130 24 108/58 (75) 87 07/28/20 10:00 131 27 122/68 (86) 88 07/28/20 10:00 30 Mechanical Ventilator 100 07/28/20 10:00 28 122/68 Mechanical Ventilator 100 07/28/20 09:30 131 25 130/75 (93) 88 07/28/20 09:28 100.8 07/28/20 09:00 152 30 142/85 (104) 85 07/28/20 09:00 30 Mechanical Ventilator 100 07/28/20 09:00 30 142/85 Mechanical Ventilator 100 07/28/20 08:45 30 Mechanical Ventilator 100 07/28/20 08:45 30 150/70 Mechanical Ventilator 100 07/28/20 08:30 31 Mechanical Ventilator 100 07/28/20 08:30 31 150/79 Mechanical Ventilator 100 07/28/20 08:30 152 31 152/79 (103) 80 07/28/20 08:15 35 Mechanical Ventilator 100 07/28/20 08:15 31 152/79 Mechanical Ventilator 100 Intake and Output 07/28/20 07/29/20 19:00 07:00 Intake Total 1251.084 ml 1270.000 ml Output Total 450 ml 480 ml Balance 801.084 ml 790.000 ml IV Total 891.084 ml 940.000 ml Tube Feeding 360 ml 330 ml Output Urine Total 450 ml 480 ml Laboratory Tests 07/28/20 08:20: Arterial Blood pH 7.353, Arterial Blood Partial Pressure CO2 65.3*H, Arterial Blood Partial Pressure O2 44.6*L, Arterial Blood HCO3 35.5H, Arterial Blood Oxygen Saturation 79.8*L, Arterial Blood Base Excess 7.5H, Jacob Test Positive 07/28/20 10:10: Vancomycin Level Trough 16.2H 07/28/20 21:02: POC Whole Blood Glucose [Pending] 07/28/20 23:56: POC Whole Blood Glucose 298H 07/29/20 06:00: POC Whole Blood Glucose [Pending] Height (Feet): 5 Height (Inches): 6.00 Weight (Pounds): 209 Objective deferred Assessment/Plan Problem List: (1) Coronavirus infection ICD Codes: B34.2 - Coronavirus infection, unspecified SNOMED: [id number] Status: not improved Assessment/Plan: vent support resp care prone if able- per staff desaturates prone steroids iv abx per ID feeds dvt prophylaxis critical Rolando Cherry MD Jul 29, 2020 08:08
[2020-07-29] MEDS: Ascorbic Acid 500mg tab NG SCH ×2 (08:55→20:29)
[2020-07-29] MEDS: Vitamin B Complex Tab NG SCH (08:55)
[2020-07-29] MEDS: Solu-MEDROL 40mg Inj IVP SCH ×2 (08:55→20:29)
[2020-07-29] MEDS: Docusate 100mg/10ml Liq NG SCH ×2 (08:55→20:29)
[2020-07-29] MEDS: Pantoprazole Inj IVP SCH (08:56)
[2020-07-29] MEDS: Enoxaparin 40mg Inj SUBQ SCH ×2 (08:59→20:30)
[2020-07-29] MEDS: Levemir Flexpen SUBQ SCH ×2 (09:49→20:45)
--- NOTE | 2020-07-29 11:15 | Pulmonology Progress Note ---
Subjective ROS Limited/Unobtainable: Yes Constitutional: Denies: fever Gastrointestinal/Abdominal: Denies: nausea, vomiting, diarrhea Musculoskeletal: Denies: pain Allergies: Coded Allergies: No Known Allergies (Unverified , 03/08/17) All Systems: reviewed and negative except above Subjective not improved still on high oxygen alert Objective Last 24 Hour Vital Signs Date Time Temp Pulse Resp B/P (MAP) Pulse Ox O2 Delivery O2 Flow Rate FiO2 07/29/20 09:01 16 146/65 Mechanical Ventilator 15.0 100 07/29/20 09:01 16 Mechanical Ventilator 15.0 100 07/29/20 08:08 91 21 148/84 (105) 91 07/29/20 08:00 Mechanical Ventilator Mechanical Ventilator 07/29/20 08:00 100 07/29/20 08:00 22 148/84 Mechanical Ventilator 15.0 100 07/29/20 08:00 22 Mechanical Ventilator 15.0 100 07/29/20 08:00 96 07/29/20 07:00 21 108/70 Mechanical Ventilator 100 07/29/20 07:00 21 Mechanical Ventilator 100 07/29/20 07:00 99 21 108/70 (83) 89 07/29/20 06:30 91 23 103/68 (80) 88 07/29/20 06:00 21 114/62 Mechanical Ventilator 100 07/29/20 06:00 21 Mechanical Ventilator 100 07/29/20 06:00 92 21 114/62 (79) 87 07/29/20 05:30 97 23 112/58 (76) 87 07/29/20 05:00 22 113/68 Mechanical Ventilator 100 07/29/20 05:00 22 Mechanical Ventilator 100 07/29/20 05:00 95 22 113/68 (83) 88 07/29/20 04:30 96 20 107/63 (78) 88 07/29/20 04:00 Mechanical Ventilator Mechanical Ventilator 07/29/20 04:00 100 07/29/20 04:00 17 117/68 Mechanical Ventilator 100 07/29/20 04:00 17 Mechanical Ventilator 100 07/29/20 04:00 97.9 98 17 117/68 (84) 87 07/29/20 04:00 98 07/29/20 03:30 91 20 138/71 (93) 86 07/29/20 03:24 108 26 100 07/29/20 03:00 86 16 126/71 (89) 90 07/29/20 03:00 16 126/71 Mechanical Ventilator 100 07/29/20 03:00 16 Mechanical Ventilator 100 07/29/20 02:30 93 18 129/72 (91) 90 07/29/20 02:00 17 151/59 Mechanical Ventilator 100 07/29/20 02:00 17 Mechanical Ventilator 100 07/29/20 02:00 91 17 151/99 (116) 89 07/29/20 01:30 103 17 141/95 (110) 87 07/29/20 01:00 22 122/81 Mechanical Ventilator 100 07/29/20 01:00 22 Mechanical Ventilator 100 07/29/20 01:00 106 22 122/81 (95) 87 07/29/20 00:30 118 23 121/68 (85) 86 07/29/20 00:00 Mechanical Ventilator Mechanical Ventilator 07/29/20 00:00 23 119/66 Mechanical Ventilator 100 07/29/20 00:00 23 Mechanical Ventilator 100 07/29/20 00:00 98.9 117 23 119/66 (83) 86 07/29/20 00:00 120 07/28/20 23:30 120 22 127/70 (89) 85 07/28/20 23:15 121 26 100 07/28/20 23:00 24 109/74 Mechanical Ventilator 100 07/28/20 23:00 24 Mechanical Ventilator 100 07/28/20 23:00 99.3 120 24 109/74 (86) 80 07/28/20 22:30 124 24 114/67 (83) 80 07/28/20 22:02 21 Mechanical Ventilator 100 07/28/20 22:00 25 131/75 Mechanical Ventilator 100 07/28/20 22:00 25 Mechanical Ventilator 100 07/28/20 22:00 131 25 131/75 (93) 78 07/28/20 21:30 127 22 128/77 (94) 75 07/28/20 21:00 24 133/77 Mechanical Ventilator 100 07/28/20 21:00 24 Mechanical Ventilator 100 07/28/20 21:00 101.0 130 24 133/77 (95) 72 07/28/20 20:30 143 32 164/99 (120) 70 07/28/20 20:00 102.6 155 35 170/85 (113) 68 07/28/20 20:00 Mechanical Ventilator Mechanical Ventilator 12/31/20 20:00 35 170/85 Mechanical Ventilator 100 07/28/20 20:00 35 Mechanical Ventilator 100 07/28/20 20:00 144 07/28/20 20:00 100 07/28/20 19:51 38 165/96 Mechanical Ventilator 100 07/28/20 19:30 144 32 165/96 (119) 72 07/28/20 19:10 145 30 100 07/28/20 19:00 100.7 147 29 153/86 (108) 69 07/28/20 19:00 25 Mechanical Ventilator 100 07/28/20 19:00 22 153/86 Mechanical Ventilator 100 07/28/20 18:08 99.9 07/28/20 18:00 20 Mechanical Ventilator 100 07/28/20 18:00 24 150/76 Mechanical Ventilator 100 07/28/20 18:00 154 29 141/80 (100) 61 07/28/20 17:30 172 42 165/81 (109) 73 07/28/20 17:00 30 Mechanical Ventilator 100 07/28/20 17:00 35 161/81 Mechanical Ventilator 100 07/28/20 17:00 172 43 161/81 (107) 68 07/28/20 16:30 169 40 169/86 (113) 70 07/28/20 16:00 37 Mechanical Ventilator 100 07/28/20 16:00 37 155/95 Mechanical Ventilator 100 07/28/20 16:00 100 07/28/20 16:00 161 39 155/95 (115) 74 07/28/20 16:00 Mechanical Ventilator Mechanical Ventilator 07/28/20 15:30 152 36 133/86 (102) 82 07/28/20 15:00 128 36 110/54 (72) 88 07/28/20 15:00 28 Mechanical Ventilator 100 07/28/20 15:00 28 110/54 Mechanical Ventilator 100 07/28/20 14:30 128 27 123/64 (83) 84 07/28/20 14:00 128 20 111/69 (83) 83 07/28/20 14:00 27 Mechanical Ventilator 100 07/28/20 14:00 24 105/65 Mechanical Ventilator 100 07/28/20 13:40 99.9 07/28/20 13:30 127 26 105/65 (78) 85 07/28/20 13:20 126 35 100 07/28/20 13:00 35 Mechanical Ventilator 100 07/28/20 13:00 35 167/97 Mechanical Ventilator 100 07/28/20 13:00 136 25 127/62 (83) 84 07/28/20 12:30 146 35 161/87 (111) 83 07/28/20 12:24 99.9 07/28/20 12:00 100 07/28/20 12:00 27 Mechanical Ventilator 15.0 100 07/28/20 12:00 26 Mechanical Ventilator 100 07/28/20 12:00 34 119/63 Mechanical Ventilator 100 07/28/20 12:00 144 34 119/63 (81) 87 07/28/20 12:00 151 07/28/20 12:00 Mechanical Ventilator Mechanical Ventilator 07/28/20 11:30 123 28 125/66 (85) 88 Intake and Output 07/28/20 07/29/20 19:00 07:00 Intake Total 1251.084 ml 1270.000 ml Output Total 450 ml 480 ml Balance 801.084 ml 790.000 ml IV Total 891.084 ml 940.000 ml Tube Feeding 360 ml 330 ml Output Urine Total 450 ml 480 ml Objective deferred due to COVID Laboratory Tests 07/28/20 21:02: POC Whole Blood Glucose [Pending] 07/28/20 23:56: POC Whole Blood Glucose 298H 07/29/20 06:00: POC Whole Blood Glucose [Pending] Current Medications Medications (Trade) Dose Ordered Sig/Milagro Route PRN Reason Start Time Stop Time Status Last Admin Dose Admin Acetaminophen (Tylenol) 650 mg Q4H PRN RECTAL Mild Pain (Pain Scale 1-3) 07/24/20 18:15 08/23/20 18:14 07/25/20 11:49 Acetaminophen (Tylenol) 650 mg Q6H PRN NG Mild Pain (Pain Scale 1-3) 07/26/20 08:30 08/25/20 08:29 07/27/20 09:49 Acetaminophen (Tylenol) 650 mg Q6H PRN NG Temp >100.5 07/26/20 08:30 08/25/20 08:29 07/28/20 11:54 Albuterol/ Ipratropium (Combivent Respimat) 2 puff Q2H PRN INH Shortness of Breath 07/09/20 21:45 1/11/21 21:44 07/19/20 09:17 Ascorbic Acid (Vitamin C) 500 mg EVERY 12 HOURS NG 07/26/20 21:00 08/10/20 08:59 07/29/20 08:55 Ceftriaxone Sodium 1 gm/ Dextrose 55 ml @ 110 mls/hr Q24H IVPB 07/25/20 13:00 08/01/20 12:59 07/28/20 13:09 Chlorhexidine Gluconate (Marycramen-Hex 2%) 1 applic DAILY@2000 TOPIC 07/20/20 20:00 10/18/20 19:59 07/28/20 19:37 Dextrose (Dextrose 50%) 25 ml Q30M PRN IV Hypoglycemia 07/23/20 13:15 10/21/20 13:14 Dextrose (Dextrose 50%) 50 ml Q30M PRN IV Hypoglycemia 07/23/20 13:15 10/21/20 13:14 Dextrose/Sodium Chloride 1,000 ml @ 60 mls/hr [id number] PRN IV WHILE PRONING ONLY 07/24/20 17:45 08/23/20 17:44 07/24/20 18:01 Docusate Sodium (Colace) 100 mg EVERY 12 HOURS NG 07/27/20 21:00 08/26/20 20:59 07/29/20 08:55 Enoxaparin Sodium (Lovenox) 40 mg Q12HR SUBQ 07/26/20 09:00 10/22/20 21:29 07/29/20 08:59 Fentanyl Citrate 250 ml @ 0 mls/hr Q24H IV 07/28/20 19:30 07/30/20 19:29 07/28/20 19:51 Hydromorphone HCl (Dilaudid) 1 mg Q4H PRN IVP For Pain 4-10 07/28/20 08:30 08/04/20 08:29 07/29/20 03:17 Insulin Aspart (NovoLOG) EVERY 6 HOURS SUBQ 07/28/20 00:00 10/21/20 15:59 07/29/20 06:03 Insulin Detemir (Levemir) 26 units EVERY 12 HOURS SUBQ 07/26/20 09:00 10/20/20 08:59 07/29/20 09:49 Methylprednisolone Sodium Succinate (Solu-MEDROL) 40 mg EVERY 12 HOURS IVP 07/25/20 12:30 10/23/20 12:29 07/29/20 08:55 Midazolam HCl 100 mg/Sodium Chloride 200 ml @ 0 mls/hr Q24H PRN IV SEDATION 07/28/20 11:30 07/30/20 11:29 07/28/20 22:02 Ondansetron HCl (Zofran) 4 mg Q6H PRN IVP Nausea & Vomiting 07/09/20 21:45 08/08/20 21:44 Pantoprazole (Protonix) 40 mg DAILY IVP 07/25/20 09:00 08/24/20 08:59 07/29/20 08:56 Promethazine HCl/ Codeine (Phenergan with Codeine) 5 ml Q4H PRN ORAL For Cough 07/11/20 15:15 08/10/20 15:14 07/26/20 18:26 Vancomycin HCl 250 ml @ 166.667 mls/hr Q8H IVPB 07/27/20 11:00 08/01/20 10:59 07/29/20 03:07 Vancomycin HCl (Vanco pharmacy to dose) 1 ea DAILY PRN MISC Per rx protocol 07/26/20 09:00 08/25/20 08:59 Vitamin B Complex (Vitamin B Complex) 1 tab DAILY NG 07/24/20 09:00 10/09/20 08:59 07/29/20 08:55 Vitamin D (Vitamin D) 1,000 unit BEDTIME GT 07/27/20 21:00 08/13/20 09:29 07/28/20 20:51 Assessment/Plan Assessment/Plan acute hypoxemic respiratory failure COVID pneumonia Asthma elevated liver enzymes DNR ARDS with fibrosing phase PLAN borderline oxygen saturation monitor imaging monitor ABG respiratory care ID noted DVT prophylaxis prognosis appears poor monitor respiratory status for change medications/laboratory data/nursing notes/ICU care reviewed in detail note reviewed and edited care discussed with RN and RT ICU time spent >40 minutes Elfego Price MD Jul 29, 2020 11:15
[2020-07-29] MEDS: fentaNYL 2500mcg/NS 250ml 250 ML IV SCH (11:25)
[2020-07-29] MEDS: Acetaminophen 650mg/20.3ml NG PRN (11:58)
--- NOTE | 2020-07-29 12:00 | NUR ---
NURSE NOTES: Pt febrile T101.4 given Tylenol 650 mg OGT and ice pack applied to bilat armpits and forehead,will continue to monitor pt's temp.
[2020-07-29] MEDS: cefTRIAXone 1 GM in D5W 55 ML IVPB SCH (12:02)
--- NOTE | 2020-07-29 13:00 | NUR ---
NURSE HAND-OFF REPORT: Latest Vital Signs: Temperature 100.9 , Pulse 171 , B/P 175 /94 , Respiratory Rate 29 , O2 SAT 68 , Mechanical Ventilator, O2 Flow Rate 15.0 . Vital Sign Comment: EKG Rhythm: Sinus Tachycardia Rhythm change?: N Notified?: Ildefonso Cherry MD Response: Latest Bradley Fall Score: 45 Fall Risk: High Risk Safety Measures: Call light Within Reach, Bed Alarm Zone 2, Side Rails Side Rails x2, Bed position Low and Locked. Fall Precautions: Yellow Socks Yellow Gown Patient Fall Education Report given to Nehal Peter RN..
--- NOTE | 2020-07-29 13:30 | NUR ---
NURSE NOTES: received report from Linda THAPA. pt in bed. st on 170's, sbp 171. sating 75%. rectal temp 102.3. turning cooling blanket on and ice packs placed. pt sedated on fentanyl 180mcg.min and versed at 10mcg . pt intubated 7.5, 23cm at lip. ac 26, vt 500, 100%. pupils 3mm sluggish . abdomen round. no bm at this time. tube feeding a.f 1.2 at 30ml/hr. deloris picc. no restraints. airborne isolation. will continue to monitor pt.
[2020-07-29] MEDS: Midazolam HCl 50mg/10ml vial 100 MG in NS 180 ML IV PRN ×2 (14:18→22:17)
--- NOTE | 2020-07-29 16:16 | NUR ---
NURSE NOTES: pt cleaned and repositioned. oral care provided. secretions thick, pink. lips dry. cooling blanket on monitor. a febrile. versed at 6mcg/ and fentanyl at 180mcg/min
--- NOTE | 2020-07-29 17:15 | NUR ---
NURSE NOTES: received call from family, was given up about status. would like to speak with pt if phone available. will look for source and call back.
--- NOTE | 2020-07-29 17:39 | Infectious Diseases Prog Note ---
Assessment/Plan Assessment/Plan antibiotics : vancomycin, ceftriaxone A 1. COVID-19 pneumonia on 100 % Fi O2 of oxygen with O2 saturation 61 %. s/p ivermectin x 2 2. History of asthma. 3. Elevated liver function tests improving 4. klebsiella pneumonia P 1. continue ceftriaxone, iv vancomycin 2. Continue solumedrol 3. Continue isolation. Subjective ROS Limited/Unobtainable: Yes Allergies: Coded Allergies: No Known Allergies (Unverified , 03/08/17) Objective Last 24 Hour Vital Signs Date Time Temp Pulse Resp B/P (MAP) Pulse Ox O2 Delivery O2 Flow Rate FiO2 07/29/20 14:30 156 31 147/82 (103) 77 07/29/20 14:18 29 Mechanical Ventilator 15.0 100 07/29/20 14:00 102.8 163 31 156/83 (107) 74 07/29/20 13:00 171 39 175/94 (121) 68 07/29/20 13:00 31 175/94 Mechanical Ventilator 15.0 100 07/29/20 12:28 100.9 07/29/20 12:00 100 07/29/20 12:00 166 07/29/20 12:00 38 154/79 07/29/20 12:00 Mechanical Ventilator Mechanical Ventilator 07/29/20 11:25 36 186/93 Mechanical Ventilator 15.0 100 07/29/20 10:00 30 152/89 Mechanical Ventilator 15.0 100 07/29/20 09:01 16 146/65 Mechanical Ventilator 15.0 100 07/29/20 09:01 16 Mechanical Ventilator 15.0 100 07/29/20 08:08 91 21 148/84 (105) 91 07/29/20 08:00 Mechanical Ventilator Mechanical Ventilator 07/29/20 08:00 100 07/29/20 08:00 22 148/84 Mechanical Ventilator 15.0 100 07/29/20 08:00 22 Mechanical Ventilator 15.0 100 07/29/20 08:00 96 07/29/20 07:00 21 108/70 Mechanical Ventilator 100 07/29/20 07:00 21 Mechanical Ventilator 100 07/29/20 07:00 99 21 108/70 (83) 89 07/29/20 06:30 91 23 103/68 (80) 88 07/29/20 06:00 21 114/62 Mechanical Ventilator 100 07/29/20 06:00 21 Mechanical Ventilator 100 07/29/20 06:00 92 21 114/62 (79) 87 07/29/20 05:30 97 23 112/58 (76) 87 07/29/20 05:00 22 113/68 Mechanical Ventilator 100 07/29/20 05:00 22 Mechanical Ventilator 100 07/29/20 05:00 95 22 113/68 (83) 88 07/29/20 04:30 96 20 107/63 (78) 88 07/29/20 04:00 Mechanical Ventilator Mechanical Ventilator 07/29/20 04:00 100 07/29/20 04:00 17 117/68 Mechanical Ventilator 100 07/29/20 04:00 17 Mechanical Ventilator 100 07/29/20 04:00 97.9 98 17 117/68 (84) 87 07/29/20 04:00 98 07/29/20 03:30 91 20 138/71 (93) 86 07/29/20 03:24 108 26 100 07/29/20 03:00 86 16 126/71 (89) 90 07/29/20 03:00 16 126/71 Mechanical Ventilator 100 07/29/20 03:00 16 Mechanical Ventilator 100 07/29/20 02:30 93 18 129/72 (91) 90 07/29/20 02:00 17 151/59 Mechanical Ventilator 100 07/29/20 02:00 17 Mechanical Ventilator 100 07/29/20 02:00 91 17 151/99 (116) 89 07/29/20 01:30 103 17 141/95 (110) 87 07/29/20 01:00 22 122/81 Mechanical Ventilator 100 07/29/20 01:00 22 Mechanical Ventilator 100 07/29/20 01:00 106 22 122/81 (95) 87 07/29/20 00:30 118 23 121/68 (85) 86 07/29/20 00:00 Mechanical Ventilator Mechanical Ventilator 07/29/20 00:00 23 119/66 Mechanical Ventilator 100 07/29/20 00:00 23 Mechanical Ventilator 100 07/29/20 00:00 98.9 117 23 119/66 (83) 86 07/29/20 00:00 120 07/28/20 23:30 120 22 127/70 (89) 85 07/28/20 23:15 121 26 100 07/28/20 23:00 24 109/74 Mechanical Ventilator 100 07/28/20 23:00 24 Mechanical Ventilator 100 07/28/20 23:00 99.3 120 24 109/74 (86) 80 07/28/20 22:30 124 24 114/67 (83) 80 07/28/20 22:02 21 Mechanical Ventilator 100 07/28/20 22:00 25 131/75 Mechanical Ventilator 100 07/28/20 22:00 25 Mechanical Ventilator 100 07/28/20 22:00 131 25 131/75 (93) 78 07/28/20 21:30 127 22 128/77 (94) 75 07/28/20 21:00 24 133/77 Mechanical Ventilator 100 07/28/20 21:00 24 Mechanical Ventilator 100 07/28/20 21:00 101.0 130 24 133/77 (95) 72 07/28/20 20:30 143 32 164/99 (120) 70 07/28/20 20:00 102.6 155 35 170/85 (113) 68 07/28/20 20:00 Mechanical Ventilator Mechanical Ventilator 07/28/20 20:00 35 170/85 Mechanical Ventilator 100 07/28/20 20:00 35 Mechanical Ventilator 100 07/28/20 20:00 144 07/28/20 20:00 100 07/28/20 19:51 38 165/96 Mechanical Ventilator 100 07/28/20 19:30 144 32 165/96 (119) 72 07/28/20 19:10 145 30 100 07/28/20 19:00 100.7 147 29 153/86 (108) 69 07/28/20 19:00 25 Mechanical Ventilator 100 07/28/20 19:00 22 153/86 Mechanical Ventilator 100 07/28/20 18:08 99.9 07/28/20 18:00 20 Mechanical Ventilator 100 07/28/20 18:00 24 150/76 Mechanical Ventilator 100 07/28/20 18:00 154 29 141/80 (100) 61 Height (Feet): 5 Height (Inches): 6.00 Weight (Pounds): 209 HEENT: other - intubated Laboratory Tests Test 07/28/20 21:02 07/28/20 23:56 07/29/20 06:00 07/29/20 11:35 POC Whole Blood Glucose Pending 298 MG/DL (74-106) H Pending 328 MG/DL (74-106) H Current Medications Medications (Trade) Dose Ordered Sig/Milagro Route PRN Reason Start Time Stop Time Status Last Admin Dose Admin Acetaminophen (Tylenol) 650 mg Q4H PRN RECTAL Mild Pain (Pain Scale 1-3) 07/24/20 18:15 08/23/20 18:14 07/25/20 11:49 Acetaminophen (Tylenol) 650 mg Q6H PRN NG Mild Pain (Pain Scale 1-3) 07/26/20 08:30 08/25/20 08:29 07/29/20 11:58 Acetaminophen (Tylenol) 650 mg Q6H PRN NG Temp >100.5 07/26/20 08:30 08/25/20 08:29 07/28/20 11:54 Albuterol/ Ipratropium (Combivent Respimat) 2 puff Q2H PRN INH Shortness of Breath 07/09/20 21:45 08/08/20 21:44 07/19/20 09:17 Ascorbic Acid (Vitamin C) 500 mg EVERY 12 HOURS NG 07/26/20 21:00 08/10/20 08:59 07/29/20 08:55 Ceftriaxone Sodium 1 gm/ Dextrose 55 ml @ 110 mls/hr Q24H IVPB 07/25/20 13:00 08/01/20 12:59 07/29/20 12:02 Chlorhexidine Gluconate (Marycarmen-Hex 2%) 1 applic DAILY@2000 TOPIC 07/20/20 20:00 10/18/20 19:59 07/28/20 19:37 Dextrose (Dextrose 50%) 25 ml Q30M PRN IV Hypoglycemia 07/23/20 13:15 10/21/20 13:14 Dextrose (Dextrose 50%) 50 ml Q30M PRN IV Hypoglycemia 07/23/20 13:15 10/21/20 13:14 Dextrose/Sodium Chloride 1,000 ml @ 60 mls/hr [id number] PRN IV WHILE PRONING ONLY 07/24/20 17:45 08/23/20 17:44 07/24/20 18:01 Docusate Sodium (Colace) 100 mg EVERY 12 HOURS NG 07/27/20 21:00 08/26/20 20:59 07/29/20 08:55 Enoxaparin Sodium (Lovenox) 40 mg Q12HR SUBQ 07/26/20 09:00 10/22/20 21:29 07/29/20 08:59 Fentanyl Citrate 250 ml @ 0 mls/hr Q24H IV 07/28/20 19:30 07/30/20 19:29 07/29/20 11:25 Hydromorphone HCl (Dilaudid) 1 mg Q4H PRN IVP For Pain 4-10 07/28/20 08:30 08/04/20 08:29 07/29/20 03:17 Insulin Aspart (NovoLOG) EVERY 6 HOURS SUBQ 07/28/20 00:00 10/21/20 15:59 07/29/20 11:57 Insulin Detemir (Levemir) 26 units EVERY 12 HOURS SUBQ 07/26/20 09:00 10/20/20 08:59 07/29/20 09:49 Methylprednisolone Sodium Succinate (Solu-MEDROL) 40 mg EVERY 12 HOURS IVP 07/25/20 12:30 10/23/20 12:29 07/29/20 08:55 Midazolam HCl 100 mg/Sodium Chloride 200 ml @ 0 mls/hr Q24H PRN IV SEDATION 07/28/20 11:30 07/30/20 11:29 07/29/20 14:18 Ondansetron HCl (Zofran) 4 mg Q6H PRN IVP Nausea & Vomiting 07/09/20 21:45 08/08/20 21:44 Pantoprazole (Protonix) 40 mg DAILY IVP 07/25/20 09:00 08/24/20 08:59 07/29/20 08:56 Promethazine HCl/ Codeine (Phenergan with Codeine) 5 ml Q4H PRN ORAL For Cough 07/11/20 15:15 08/10/20 15:14 07/26/20 18:26 Vancomycin HCl 250 ml @ 166.667 mls/hr Q8H IVPB 07/27/20 11:00 08/01/20 10:59 07/29/20 11:26 Vancomycin HCl (Vanco pharmacy to dose) 1 ea DAILY PRN MISC Per rx protocol 07/26/20 09:00 08/25/20 08:59 Vitamin B Complex (Vitamin B Complex) 1 tab DAILY NG 07/24/20 09:00 10/09/20 08:59 07/29/20 08:55 Vitamin D (Vitamin D) 1,000 unit BEDTIME GT 07/27/20 21:00 08/13/20 09:29 07/28/20 20:51 Jose Alberto MD Jul 29, 2020 17:39
--- NOTE | 2020-07-29 17:56 | NUR ---
CASE MANAGEMENT: REVIEW 07/29/2020 SI;COVID PNA VS: T 102.8 HR 163 RR 31 B/P 156/83 SATS 74% ON 15L/NRB FIO2 100 LABS: GLU 328 IS: INSULIN ASPART SUBQ AC/HS SOLU MEDROL IV Q12H LEVEMIR SUBQ Q12H CEFTRIAXONE IV Q24H FENTANYL IV PER PARAMETERS VANCO IV Q8H ICU
--- NOTE | 2020-07-29 19:12 | NUR ---
NURSE HAND-OFF REPORT: Latest Vital Signs: Temperature 102.8 , Pulse 95 , B/P 103 /63 , Respiratory Rate 20 , O2 SAT 84 , Mechanical Ventilator, O2 Flow Rate . Vital Sign Comment: EKG Rhythm: Sinus Tachycardia Rhythm change?: N MD Notified?: Ildefonso Cherry MD Response: Latest Bradley Fall Score: 45 Fall Risk: High Risk Safety Measures: Call light Within Reach, Bed Alarm Zone 2, Side Rails Side Rails x2, Bed position Low and Locked. Fall Precautions: Yellow Socks Yellow Gown Patient Fall Education Report given to Sarai clancy r.n
--- NOTE | 2020-07-29 19:45 | NUR ---
NURSE NOTES: Received report from ELIER Peter. Pt is sedated on the bed. Pt has ETT and orally intubated. Vent dependent and setting with AC: 26, T: 500, P:16 FiO2 100% and SaO2 83-84% noted. Keep comfort care. code status order is DNR. on cage maker machine with ST. Noted subcutaneous emphysema on upper chest and neck area. Pt has OGT and on running with Vital AF @ 30cc/hr and noted 10cc residual. Keep HOP position. Noted BT : 99.5 F by rectal and Keep cooling measure with cooling blanket. Pt has Biswas cath and drainage well but still noted sedimentation. Pt has Lt. upper arm PICC line and dressing is clean and dry. On running with Versed @ 6mg/hr and fentanyl drip @ 180mcg/hr. Noted RASS score -1. Increase Versed drip @ 8mcg/hr. Placed fall precaution. on proper isolation and fro COVID -19. Will continue to care plan.
[2020-07-29] MEDS: Dyna-Hex 2% Top Sol 2oz TOPIC SCH (19:50)
[2020-07-29] MEDS: Vitamin D 1000 units Tab GT SCH (20:29)
--- NOTE | 2020-07-29 22:00 | NUR ---
NURSE NOTES: Pt is sedated on the bed and RASS -2. Family visited and see the Pt. Updated Pt's condition. given suction and oral care. Noted SaO2 80% with current Vent setting. Turn and reposition. Will continue to monitor any change of condition.
[2020-07-30] VITALS (47 sets, daily range): BP systolic 109–186; BP diastolic 62–105
--- NOTE | 2020-07-30 | NUR ---
NURSE NOTES: Pt is sedated on the bed and RASS-2. Tolerated well with current NGT feeding. SaO2 81% with Vent setting. no fever noted. noted good urine output via Biswas cath. repositioned Pt. Placed fall precaution. will continue to monitor any change of condition.
[2020-07-30] MEDS: NovoLOG Insulin Flexpen SUBQ SCH ×4 (00:07→18:47)
[2020-07-30] MEDS: fentaNYL 2500mcg/NS 250ml 250 ML IV SCH ×3 (00:32→19:30)
--- NOTE | 2020-07-30 02:00 | NUR ---
NURSE NOTES: Pt is sedate on the bed. SaO2 82% with Vent. no sign of pain by FLACC scale. tolerated well with OGT feeding. Provided suction. On RASS score -2 and on running with Fentanyl and Versed drip as titrate. Will continue to monitor any change of condition.
[2020-07-30] MEDS: Vancomycin 1.25gm Premix IVPB SCH ×3 (03:18→18:48)
--- NOTE | 2020-07-30 04:00 | NUR ---
NURSE NOTES: Pt is sedated on the bed and RASS -2. on running with Fentanyl @ 180mcg/hr and Versed @ 8mg/hr. SaO2 83% with Vent. Noted BT: 99.2F. Keep cooling measure. cleaned Pt. reposition. Placed fall precaution. Will continue to care plan.
[2020-07-30] MEDS: HYDROmorphone 1mg/ml Carpuject IVP PRN ×4 (04:36→21:42)
[2020-07-30 05:12] LABS: PHOSPHORUS 2.2 MG/DL (2.5-4.9)
[2020-07-30 05:13] LABS: HEMATOCRIT 39.8 % (42.0-52.0); HEMOGLOBIN 12.6 G/DL (14.2-18.0); MEAN CORPUSCULAR VOLUME 99 FL (80-99); PLATELET COUNT 163 K/UL (150-450); RED BLOOD COUNT 4.03 M/UL (4.70-6.10); RED CELL DISTRIBUTION WIDTH 13.3 % (11.6-14.8); WHITE BLOOD COUNT 13.3 K/UL (4.8-10.8)
[2020-07-30 05:28] LABS: ALANINE AMINOTRANSFERASE 28 U/L (12-78); ALBUMIN 1.7 G/DL (3.4-5.0); ALBUMIN/GLOBULIN RATIO 0.4 (1.0-2.7); ALKALINE PHOSPHATASE 121 U/L (46-116); ASPARTATE AMINO TRANSFERASE 24 U/L (15-37); BILIRUBIN,TOTAL 0.5 MG/DL (0.2-1.0); BLOOD UREA NITROGEN 28 mg/dL (7-18); CALCIUM 9.1 MG/DL (8.5-10.1); CARBON DIOXIDE 40 MMOL/L (21-32); CREATININE 0.7 MG/DL (0.55-1.30); FERRITIN 349 NG/ML (8-388); POTASSIUM 4.4 MMOL/L (3.5-5.1); SODIUM 149 MMOL/L (136-145)
--- NOTE | 2020-07-30 06:00 | NUR ---
NURSE NOTES: SaO2 82% with current Vent setting. Given suction and oral care. Turn and reposition. Placed fall precaution. Will continue to care plan.
[2020-07-30 06:12] LABS: CHLORIDE 109 MMOL/L (98-107)
--- NOTE | 2020-07-30 07:26 | NUR ---
NURSE HAND-OFF REPORT: Latest Vital Signs: Temperature 99.2 , Pulse 96 , B/P 118 /67 , Respiratory Rate 20 , O2 SAT 84 , Mechanical Ventilator, O2 Flow Rate . Vital Sign Comment: EKG Rhythm: Sinus Rhythm Rhythm change?: N Latest Bradley Fall Score: 45 Fall Risk: High Risk Safety Measures: Call light Within Reach, Bed Alarm Zone 2, Side Rails Side Rails x2, Bed position Low and Locked. Fall Precautions: Yellow Socks Yellow Gown Patient Fall Education Report given to ELIER Martin. Pt is sedated on the bed and RASS -2. on running with Fentanyl @ 180mcg/hr and Versed @ 8mg/hr. Addendum: 07/30/20 at 2020 by GARRETT EARL RN DISREGARD ENTRY AT [facility].
--- NOTE | 2020-07-30 08:00 | NUR ---
NURSE NOTES: Pt was assessed after receiving change of shift report from Carola THAPA. Pt is sedated -2 light sedation per RASS score while maintained on Fentanyl drip 180mcg/hr and Versed drip 8mcg/hr, opens eyes to voice/touch, moves extremities, however does not follow commands. Orally intubated, ETT 7.5 at 22cm lipline with vent settings AC26, VT500, Peep 16, FIO2 100%, O2Sat 80-90%. Subcutaneous emphysema present. ST on gore seamer, HR 110-120/hr. Temp 100F axillary. Pt is maintained on cooling blanket to regulate body temperature. OGT present, with feeding VitalAF infusing at 30ml/hour and with 60ml residuals. Biswas catheter is present, draining cloudy/dark yen urine. Left upper arm double lumen PICC line, and peripheral IV access present on left FA#20G and right FA #22G, all patent/intact. Skin is intact. HOB at 30 degrees, bed locked/in lowest position, three side rails up. Will continue with plan of care.
--- NOTE | 2020-07-30 09:48 | NUR ---
NURSE NOTES: Dilaudid was administered per PRN order, goal is to "keep pt comfortable" per MD instructions.
--- NOTE | 2020-07-30 10:00 | NUR ---
NURSE NOTES: Dr Cherry is at the nurse's station and was updated on pt's current status. MD notified regarding subcutaneous emphysema, desaturation despite high vent settings, and maintaining pt on Fentanyl and Versed drips while also administering Dilaudid Q4 hours to "keep pt comfortable" per Dr. Cherry's instructions. No new orders were received at this time.
[2020-07-30] MEDS: Enoxaparin 40mg Inj SUBQ SCH ×2 (10:10→20:38)
[2020-07-30] MEDS: Levemir Flexpen SUBQ SCH ×2 (10:11→20:52)
[2020-07-30] MEDS: Pantoprazole Inj IVP SCH (10:11)
[2020-07-30] MEDS: Solu-MEDROL 40mg Inj IVP SCH ×2 (10:11→20:37)
[2020-07-30] MEDS: Docusate 100mg/10ml Liq NG SCH ×2 (10:12→20:37)
[2020-07-30] MEDS: Ascorbic Acid 500mg tab NG SCH ×2 (10:12→20:37)
[2020-07-30] MEDS: Vitamin B Complex Tab NG SCH (10:12)
--- NOTE | 2020-07-30 10:30 | NUR ---
NURSE NOTES: Versed Rx was renewed and new bag was scanned to replace previous empty bag, to continue same rate of 8mg/hr to maintain -2 light sedation /per RASS score.
[2020-07-30] MEDS: Midazolam HCl 50mg/10ml vial 100 MG in NS 180 ML IV PRN ×2 (10:31→22:12)
--- NOTE | 2020-07-30 11:41 | General Progress Note ---
Subjective ROS Limited/Unobtainable: Yes Constitutional: Reports: no symptoms HEENT: Reports: no symptoms Cardiovascular: Reports: no symptoms Respiratory: Reports: shortness of breath Gastrointestinal/Abdominal: Reports: difficulty swallowing Genitourinary: Reports: no symptoms Neurologic/Psychiatric: Reports: pre-existing deficit Endocrine: Reports: no symptoms Hematologic/Lymphatic: Reports: anemia Allergies: Coded Allergies: No Known Allergies (Unverified , 03/08/17) All Systems: reviewed and negative except above Subjective There have been no significant overnight events. Patient remains orally intubated on the ventilator. O2 saturations ranging from the high 80s to low 90s. Tolerating NG tube feedings. Intermittent agitation. Currently on sedation. Objective Last 24 Hour Vital Signs Date Time Temp Pulse Resp B/P (MAP) Pulse Ox O2 Delivery O2 Flow Rate FiO2 07/30/20 10:18 99.2 07/30/20 07:15 96 20 84 07/30/20 07:08 84 33 100 07/30/20 07:00 90 22 118/67 (84) 83 07/30/20 07:00 22 118/67 Mechanical Ventilator 100 07/30/20 07:00 22 Mechanical Ventilator 100 07/30/20 06:30 94 18 124/66 (85) 80 07/30/20 06:00 115 21 124/70 (88) 82 07/30/20 06:00 21 124/70 Mechanical Ventilator 100 07/30/20 06:00 21 Mechanical Ventilator 100 07/30/20 05:30 122 23 142/66 (91) 81 07/30/20 05:00 17 147/79 Mechanical Ventilator 100 07/30/20 05:00 17 Mechanical Ventilator 100 07/30/20 05:00 124 17 147/79 (101) 80 07/30/20 04:30 132 22 142/77 (98) 81 07/30/20 04:00 100 07/30/20 04:00 20 172/98 Mechanical Ventilator 100 07/30/20 04:00 20 Mechanical Ventilator 100 07/30/20 04:00 111 07/30/20 04:00 Mechanical Ventilator Mechanical Ventilator 07/30/20 04:00 99.2 107 20 172/98 (122) 83 07/30/20 03:30 104 33 172/103 (126) 77 07/30/20 03:00 18 111/63 Mechanical Ventilator 100 07/30/20 03:00 16 Mechanical Ventilator 100 07/30/20 03:00 91 16 111/63 (79) 84 07/30/20 02:30 98 18 109/70 (83) 84 07/30/20 02:00 95 25 121/70 (87) 82 07/30/20 02:00 25 121/70 Mechanical Ventilator 100 07/30/20 02:00 25 Mechanical Ventilator 100 07/30/20 01:30 102 20 115/68 (84) 82 07/30/20 01:00 21 125/62 Mechanical Ventilator 100 07/30/20 01:00 21 Mechanical Ventilator 100 07/30/20 01:00 111 21 125/62 (83) 84 07/30/20 00:32 21 126/79 Mechanical Ventilator 100 07/30/20 00:30 113 19 126/79 (95) 85 07/30/20 00:00 Mechanical Ventilator Mechanical Ventilator 07/30/20 00:00 132 07/30/20 00:00 98.9 114 27 158/105 (122) 81 07/30/20 00:00 27 158/105 Mechanical Ventilator 100 07/30/20 00:00 27 Mechanical Ventilator 100 07/30/20 00:00 100 07/29/20 23:59 122 33 100 07/29/20 23:30 104 19 138/102 (114) 82 07/29/20 23:00 121 20 126/75 (92) 80 07/29/20 23:00 19 126/75 Mechanical Ventilator 100 07/29/20 23:00 19 Mechanical Ventilator 100 07/29/20 22:30 124 21 144/79 (100) 83 07/29/20 22:17 25 Mechanical Ventilator 100 07/29/20 22:00 17 159/70 Non-Rebreather 100 07/29/20 22:00 17 Mechanical Ventilator 100 07/29/20 22:00 125 17 159/79 (105) 80 07/29/20 21:30 145 35 169/100 (123) 78 07/29/20 21:00 26 170/100 Mechanical Ventilator 100 07/29/20 21:00 26 Mechanical Ventilator 100 07/29/20 21:00 125 36 170/100 (123) 78 07/29/20 20:30 91 15 125/67 (86) 86 07/29/20 20:00 83 07/29/20 20:00 100 07/29/20 20:00 99.0 92 17 116/72 (87) 84 07/29/20 20:00 Mechanical Ventilator Mechanical Ventilator 07/29/20 20:00 17 116/72 Mechanical Ventilator 100 07/29/20 20:00 17 Mechanical Ventilator 100 07/29/20 19:45 17 112/79 Mechanical Ventilator 100 07/29/20 19:45 17 Mechanical Ventilator 100 07/29/20 19:30 89 15 112/79 (90) 85 07/29/20 19:15 90 29 100 07/29/20 19:00 95 20 103/63 (76) 84 07/29/20 19:00 20 103/63 Mechanical Ventilator 100 07/29/20 19:00 20 Mechanical Ventilator 100 07/29/20 18:16 Mechanical Ventilator 07/29/20 17:45 96 22 84 07/29/20 17:30 103 22 114/75 (88) 85 07/29/20 17:15 104 21 88 07/29/20 17:00 107 22 110/73 (85) 86 07/29/20 17:00 Mechanical Ventilator 07/29/20 16:45 107 22 83 07/29/20 16:30 104 22 118/73 (88) 83 07/29/20 16:15 118 23 82 07/29/20 16:00 159 07/29/20 16:00 124 24 127/83 (98) 80 07/29/20 16:00 Mechanical Ventilator 07/29/20 16:00 Mechanical Ventilator Mechanical Ventilator 07/29/20 16:00 100 07/29/20 15:45 128 25 80 07/29/20 15:30 135 25 122/81 (95) 80 07/29/20 15:15 113 30 100 07/29/20 15:15 141 26 80 07/29/20 15:00 Mechanical Ventilator 07/29/20 15:00 146 26 119/88 (98) 80 07/29/20 14:30 156 31 147/82 (103) 77 07/29/20 14:18 29 Mechanical Ventilator 15.0 100 07/29/20 14:00 102.8 163 31 156/83 (107) 74 07/29/20 13:00 171 39 175/94 (121) 68 07/29/20 13:00 31 175/94 Mechanical Ventilator 15.0 100 07/29/20 12:28 100.9 07/29/20 12:00 100 07/29/20 12:00 166 07/29/20 12:00 38 154/79 07/29/20 12:00 Mechanical Ventilator Mechanical Ventilator Intake and Output 07/29/20 07/30/20 19:00 07:00 Intake Total 770.667 ml 1000.800 ml Output Total 555 ml 930 ml Balance 215.667 ml 70.800 ml IV Total 290.667 ml 640.800 ml Tube Feeding 360 ml 360 ml Other 120 ml Output Urine Total 555 ml 930 ml Laboratory Tests 07/29/20 18:15: POC Whole Blood Glucose 294H 07/29/20 20:39: POC Whole Blood Glucose [Pending] 07/29/20 23:45: POC Whole Blood Glucose 234H 07/30/20 04:00: White Blood Count 13.3H, Red Blood Count 4.03L, Hemoglobin 12.6L, Hematocrit 39.8L, Mean Corpuscular Volume 99, Mean Corpuscular Hemoglobin 31.3H, Mean Corpuscular Hemoglobin Concent 31.7L, Red Cell Distribution Width 13.3, Platelet Count 163, Mean Platelet Volume 7.6, Neutrophils (%) (Auto) , Lymphocytes (%) (Auto) , Monocytes (%) (Auto) , Eosinophils (%) (Auto) , Basophils (%) (Auto) , Differential Total Cells Counted 100, Neutrophils % (Manual) 83H, Lymphocytes % (Manual) 9L, Monocytes % (Manual) 6, Eosinophils % (Manual) 0, Basophils % (Manual) 0, Band Neutrophils 2, Platelet Estimate Adequate, Platelet Morphology Normal, Red Blood Cell Morphology Normal, Sodium Level 149H, Potassium Level 4.4, Chloride Level 109H, Carbon Dioxide Level 40H, Blood Urea Nitrogen 28H, Creatinine 0.7, Estimat Glomerular Filtration Rate > 60, Glucose Level 244H, Calcium Level 9.1, Phosphorus Level 2.2L, Magnesium Level 2.4, Ferritin 349, Total Bilirubin 0.5, Aspartate Amino Transf (AST/SGOT) 24, Alanine Aminotransferase (ALT/SGPT) 28, Alkaline Phosphatase 121H, C-Reactive Protein, Quantitative 44.6H, Pro-B-Type Natriuretic Peptide 2055H, Total Protein 6.4, Albumin 1.7L, Globulin 4.7, Albumin/Globulin Ratio 0.4L 07/30/20 06:07: POC Whole Blood Glucose [Pending] Height (Feet): 5 Height (Inches): 6.00 Weight (Pounds): 209 Objective deferred Assessment/Plan Problem List: (1) Coronavirus infection ICD Codes: B34.2 - Coronavirus infection, unspecified SNOMED: [id number] Status: not improved Assessment/Plan: vent support resp care prone if able- per staff desaturates prone steroids iv abx per ID feeds dvt prophylaxis critical Rolando Cherry MD Jul 30, 2020 11:41
--- NOTE | 2020-07-30 12:06 | Infectious Diseases Prog Note ---
Assessment/Plan Assessment/Plan A: 1. COVID-19 pneumonia. 2. History of asthma. 3. Elevated liver function tests. 4. Fatty liver 5. DM with hyperglycemia 6. Leukocytosis worsening 7. Hypoxic respiratory failure 8. Klebsiella pneumonia 9. Bacteremia PLAN: 1. Continue Methylprednisone 2. Continue isolation. 3. Continue Ceftriaxone & Vancomycin Subjective ROS Limited/Unobtainable: Yes Constitutional: Reports: fever, other - [id number] Allergies: Coded Allergies: No Known Allergies (Unverified , 03/08/17) Objective Last 24 Hour Vital Signs Date Time Temp Pulse Resp B/P (MAP) Pulse Ox O2 Delivery O2 Flow Rate FiO2 07/30/20 12:00 106 07/30/20 11:30 98.4 103 24 122/73 (89) 88 07/30/20 11:00 116 18 139/79 (99) 88 07/30/20 10:30 123 20 154/74 (100) 83 07/30/20 10:18 99.2 07/30/20 10:00 99.6 122 15 144/80 (101) 82 07/30/20 09:30 135 19 166/86 (112) 78 07/30/20 09:00 100.7 105 17 147/79 (101) 86 07/30/20 08:30 89 17 181/83 (115) 90 07/30/20 08:00 84 07/30/20 08:00 101.0 86 25 139/77 (97) 89 07/30/20 08:00 Mechanical Ventilator Mechanical Ventilator 07/30/20 08:00 100 07/30/20 07:30 94 24 114/69 (84) 86 07/30/20 07:08 84 33 100 07/30/20 07:00 90 22 118/67 (84) 83 07/30/20 07:00 22 118/67 Mechanical Ventilator 100 07/30/20 07:00 22 Mechanical Ventilator 100 07/30/20 06:30 94 18 124/66 (85) 80 07/30/20 06:00 115 21 124/70 (88) 82 07/30/20 06:00 21 124/70 Mechanical Ventilator 100 07/30/20 06:00 21 Mechanical Ventilator 100 07/30/20 05:30 122 23 142/66 (91) 81 07/30/20 05:00 17 147/79 Mechanical Ventilator 100 07/30/20 05:00 17 Mechanical Ventilator 100 07/30/20 05:00 124 17 147/79 (101) 80 07/30/20 04:30 132 22 142/77 (98) 81 07/30/20 04:00 100 07/30/20 04:00 20 172/98 Mechanical Ventilator 100 07/30/20 04:00 20 Mechanical Ventilator 100 07/30/20 04:00 111 07/30/20 04:00 Mechanical Ventilator Mechanical Ventilator 07/30/20 04:00 99.2 107 20 172/98 (122) 83 07/30/20 03:30 104 33 172/103 (126) 77 07/30/20 03:00 18 111/63 Mechanical Ventilator 100 07/30/20 03:00 16 Mechanical Ventilator 100 07/30/20 03:00 91 16 111/63 (79) 84 07/30/20 02:30 98 18 109/70 (83) 84 07/30/20 02:00 95 25 121/70 (87) 82 07/30/20 02:00 25 121/70 Mechanical Ventilator 100 07/30/20 02:00 25 Mechanical Ventilator 100 07/30/20 01:30 102 20 115/68 (84) 82 07/30/20 01:00 21 125/62 Mechanical Ventilator 100 07/30/20 01:00 21 Mechanical Ventilator 100 07/30/20 01:00 111 21 125/62 (83) 84 07/30/20 00:32 21 126/79 Mechanical Ventilator 100 07/30/20 00:30 113 19 126/79 (95) 85 07/30/20 00:00 Mechanical Ventilator Mechanical Ventilator 07/30/20 00:00 132 07/30/20 00:00 98.9 114 27 158/105 (122) 81 07/30/20 00:00 27 158/105 Mechanical Ventilator 100 07/30/20 00:00 27 Mechanical Ventilator 100 07/30/20 00:00 100 07/29/20 23:59 122 33 100 07/29/20 23:30 104 19 138/102 (114) 82 07/29/20 23:00 121 20 126/75 (92) 80 07/29/20 23:00 19 126/75 Mechanical Ventilator 100 07/29/20 23:00 19 Mechanical Ventilator 100 07/29/20 22:30 124 21 144/79 (100) 83 07/29/20 22:17 25 Mechanical Ventilator 100 07/29/20 22:00 17 159/70 Non-Rebreather 100 07/29/20 22:00 17 Mechanical Ventilator 100 07/29/20 22:00 125 17 159/79 (105) 80 07/29/20 21:30 145 35 169/100 (123) 78 07/29/20 21:00 26 170/100 Mechanical Ventilator 100 07/29/20 21:00 26 Mechanical Ventilator 100 07/29/20 21:00 125 36 170/100 (123) 78 07/29/20 20:30 91 15 125/67 (86) 86 07/29/20 20:00 83 07/29/20 20:00 100 07/29/20 20:00 99.0 92 17 116/72 (87) 84 07/29/20 20:00 Mechanical Ventilator Mechanical Ventilator 07/29/20 20:00 17 116/72 Mechanical Ventilator 100 07/29/20 20:00 17 Mechanical Ventilator 100 07/29/20 19:45 17 112/79 Mechanical Ventilator 100 07/29/20 19:45 17 Mechanical Ventilator 100 07/29/20 19:30 89 15 112/79 (90) 85 07/29/20 19:15 90 29 100 07/29/20 19:00 95 20 103/63 (76) 84 07/29/20 19:00 20 103/63 Mechanical Ventilator 100 07/29/20 19:00 20 Mechanical Ventilator 100 07/29/20 18:16 Mechanical Ventilator 07/29/20 17:45 96 22 84 07/29/20 17:30 103 22 114/75 (88) 85 07/29/20 17:15 104 21 88 07/29/20 17:00 107 22 110/73 (85) 86 07/29/20 17:00 Mechanical Ventilator 07/29/20 16:45 107 22 83 07/29/20 16:30 104 22 118/73 (88) 83 07/29/20 16:15 118 23 82 07/29/20 16:00 159 07/29/20 16:00 124 24 127/83 (98) 80 07/29/20 16:00 Mechanical Ventilator 07/29/20 16:00 Mechanical Ventilator Mechanical Ventilator 07/29/20 16:00 100 07/29/20 15:45 128 25 80 07/29/20 15:30 135 25 122/81 (95) 80 07/29/20 15:15 113 30 100 07/29/20 15:15 141 26 80 07/29/20 15:00 Mechanical Ventilator 07/29/20 15:00 146 26 119/88 (98) 80 07/29/20 14:30 156 31 147/82 (103) 77 07/29/20 14:18 29 Mechanical Ventilator 15.0 100 07/29/20 14:00 102.8 163 31 156/83 (107) 74 07/29/20 13:00 171 39 175/94 (121) 68 07/29/20 13:00 31 175/94 Mechanical Ventilator 15.0 100 07/29/20 12:28 100.9 Height (Feet): 5 Height (Inches): 6.00 Weight (Pounds): 209 HEENT: mucous membranes moist, other - orally intubated Respiratory/Chest: other - on ventilator, [id number]% Cardiovascular: tachycardia Abdomen: soft, non tender, other - OG tube Extremities: no edema Neurologic/Psychiatric: unresponsiveness Laboratory Tests Test 07/29/20 18:15 07/29/20 20:39 07/29/20 23:45 07/30/20 04:00 POC Whole Blood Glucose 294 MG/DL (74-106) H Pending 234 MG/DL (74-106) H White Blood Count 13.3 K/UL (4.8-10.8) H Red Blood Count 4.03 M/UL (4.70-6.10) L Hemoglobin 12.6 G/DL (14.2-18.0) L Hematocrit 39.8 % (42.0-52.0) L Mean Corpuscular Volume 99 FL (80-99) Mean Corpuscular Hemoglobin 31.3 PG (27.0-31.0) H Mean Corpuscular Hemoglobin Concent 31.7 G/DL (32.0-36.0) L Red Cell Distribution Width 13.3 % (11.6-14.8) Platelet Count 163 K/UL (150-450) Mean Platelet Volume 7.6 FL (6.5-10.1) Neutrophils (%) (Auto) % (45.0-75.0) Lymphocytes (%) (Auto) % (20.0-45.0) Monocytes (%) (Auto) % (1.0-10.0) Eosinophils (%) (Auto) % (0.0-3.0) Basophils (%) (Auto) % (0.0-2.0) Differential Total Cells Counted 100 Neutrophils % (Manual) 83 % (45-75) H Lymphocytes % (Manual) 9 % (20-45) L Monocytes % (Manual) 6 % (1-10) Eosinophils % (Manual) 0 % (0-3) Basophils % (Manual) 0 % (0-2) Band Neutrophils 2 % (0-8) Platelet Estimate Adequate Platelet Morphology Normal Red Blood Cell Morphology Normal Sodium Level 149 MMOL/L (136-145) H Potassium Level 4.4 MMOL/L (3.5-5.1) Chloride Level 109 MMOL/L (98-107) H Carbon Dioxide Level 40 MMOL/L (21-32) H Blood Urea Nitrogen 28 mg/dL (7-18) H Creatinine 0.7 MG/DL (0.55-1.30) Estimat Glomerular Filtration Rate > 60 mL/min (>60) Glucose Level 244 MG/DL (74-106) H Calcium Level 9.1 MG/DL (8.5-10.1) Phosphorus Level 2.2 MG/DL (2.5-4.9) L Magnesium Level 2.4 MG/DL (1.8-2.4) Ferritin 349 NG/ML (8-388) Total Bilirubin 0.5 MG/DL (0.2-1.0) Aspartate Amino Transf (AST/SGOT) 24 U/L (15-37) Alanine Aminotransferase (ALT/SGPT) 28 U/L (12-78) Alkaline Phosphatase 121 U/L (46-116) H C-Reactive Protein, Quantitative 44.6 mg/dL (0.00-0.90) H Pro-B-Type Natriuretic Peptide 2055 pg/mL (0-125) H Total Protein 6.4 G/DL (6.4-8.2) Albumin 1.7 G/DL (3.4-5.0) L Globulin 4.7 g/dL Albumin/Globulin Ratio 0.4 (1.0-2.7) L Test 07/30/20 06:07 POC Whole Blood Glucose Pending Current Medications Medications (Trade) Dose Ordered Sig/Milagro Route PRN Reason Start Time Stop Time Status Last Admin Dose Admin Acetaminophen (Tylenol) 650 mg Q4H PRN RECTAL Mild Pain (Pain Scale 1-3) 07/24/20 18:15 08/23/20 18:14 07/25/20 11:49 Acetaminophen (Tylenol) 650 mg Q6H PRN NG Mild Pain (Pain Scale 1-3) 07/26/20 08:30 08/25/20 08:29 07/29/20 11:58 Acetaminophen (Tylenol) 650 mg Q6H PRN NG Temp >100.5 07/26/20 08:30 08/25/20 08:29 07/28/20 11:54 Albuterol/ Ipratropium (Combivent Respimat) 2 puff Q2H PRN INH Shortness of Breath 07/09/20 21:45 08/08/20 21:44 07/19/20 09:17 Ascorbic Acid (Vitamin C) 500 mg EVERY 12 HOURS NG 07/26/20 21:00 08/10/20 08:59 07/30/20 10:12 Ceftriaxone Sodium 1 gm/ Dextrose 55 ml @ 110 mls/hr Q24H IVPB 07/25/20 13:00 08/01/20 12:59 07/29/20 12:02 Chlorhexidine Gluconate (Marycarmen-Hex 2%) 1 applic DAILY@2000 TOPIC 07/20/20 20:00 10/18/20 19:59 07/29/20 19:50 Dextrose (Dextrose 50%) 25 ml Q30M PRN IV Hypoglycemia 07/23/20 13:15 10/21/20 13:14 Dextrose (Dextrose 50%) 50 ml Q30M PRN IV Hypoglycemia 07/23/20 13:15 10/21/20 13:14 Dextrose/Sodium Chloride 1,000 ml @ 60 mls/hr [id number] PRN IV WHILE PRONING ONLY 07/24/20 17:45 08/23/20 17:44 07/24/20 18:01 Docusate Sodium (Colace) 100 mg EVERY 12 HOURS NG 07/27/20 21:00 08/26/20 20:59 07/30/20 10:12 Enoxaparin Sodium (Lovenox) 40 mg Q12HR SUBQ 07/26/20 09:00 10/22/20 21:29 07/30/20 10:10 Fentanyl Citrate 250 ml @ 0 mls/hr Q24H IV 07/28/20 19:30 07/30/20 19:29 07/30/20 00:32 Hydromorphone HCl (Dilaudid) 1 mg Q4H PRN IVP For Pain 4-10 07/28/20 08:30 08/04/20 08:29 07/30/20 09:48 Insulin Aspart (NovoLOG) EVERY 6 HOURS SUBQ 07/28/20 00:00 10/21/20 15:59 07/30/20 06:08 Insulin Detemir (Levemir) 26 units EVERY 12 HOURS SUBQ 07/26/20 09:00 10/20/20 08:59 07/30/20 10:11 Methylprednisolone Sodium Succinate (Solu-MEDROL) 40 mg EVERY 12 HOURS IVP 07/25/20 12:30 10/23/20 12:29 07/30/20 10:11 Midazolam HCl 100 mg/Sodium Chloride 200 ml @ 2 mls/hr Q24H PRN IV SEDATION 07/30/20 10:30 08/01/20 10:29 Ondansetron HCl (Zofran) 4 mg Q6H PRN IVP Nausea & Vomiting 07/09/20 21:45 08/08/20 21:44 Pantoprazole (Protonix) 40 mg DAILY IVP 07/25/20 09:00 08/24/20 08:59 07/30/20 10:11 Promethazine HCl/ Codeine (Phenergan with Codeine) 5 ml Q4H PRN ORAL For Cough 07/11/20 15:15 08/10/20 15:14 07/26/20 18:26 Vancomycin HCl 250 ml @ 166.667 mls/hr Q8H IVPB 07/27/20 11:00 08/01/20 10:59 07/30/20 10:13 Vancomycin HCl (Vanco pharmacy to dose) 1 ea DAILY PRN MISC Per rx protocol 07/26/20 09:00 08/25/20 08:59 Vitamin B Complex (Vitamin B Complex) 1 tab DAILY NG 07/24/20 09:00 10/09/20 08:59 07/30/20 10:12 Vitamin D (Vitamin D) 1,000 unit BEDTIME GT 07/27/20 21:00 08/13/20 09:29 07/29/20 20:29 Mian Wing MD Jul 30, 2020 12:06
--- NOTE | 2020-07-30 12:30 | NUR ---
NURSE NOTES: Order for repeat ABGs noted, however per RT/department, unable to process ABGs due to "machine not working at this time". Per Foster RT, RT/manager of recruiting is aware and attempting to resolve the matter.
--- NOTE | 2020-07-30 13:40 | NUR ---
CASE MANAGEMENT: REVIEW 07/30/2020 SI;COVID PNA VS: T 98.4 HR 103 RR 24 B/P 122/73 SATS 88% ON MECH VENT FIO2 100 LABS: WBC 13.3 NA 149 CL 109 CO2 40 BUN 28 GLU 244 PHOS 2.2 ALP 121 CRP 44.6 BNP 2054 IS: INSULIN ASPART SUBQ AC/HS SOLU MEDROL IV Q12H LEVEMIR SUBQ Q12H CEFTRIAXONE IV Q24H FENTANYL IV PER PARAMETERS VANCO IV Q8H ICU
[2020-07-30] MEDS: cefTRIAXone 1 GM in D5W 55 ML IVPB SCH (14:32)
--- NOTE | 2020-07-30 14:59 | Pulmonology Progress Note ---
Subjective ROS Limited/Unobtainable: Yes Constitutional: Reports: fever, other - Eo=[id number] Gastrointestinal/Abdominal: Denies: nausea, vomiting, diarrhea Musculoskeletal: Denies: pain Allergies: Coded Allergies: No Known Allergies (Unverified , 03/08/17) All Systems: reviewed and negative except above Subjective not improved on high oxygen on vent Objective Last 24 Hour Vital Signs Date Time Temp Pulse Resp B/P (MAP) Pulse Ox O2 Delivery O2 Flow Rate FiO2 07/30/20 13:00 84 22 132/83 (99) 87 07/30/20 12:30 84 22 126/81 (96) 87 07/30/20 12:00 Mechanical Ventilator Mechanical Ventilator 07/30/20 12:00 100 07/30/20 12:00 89 18 139/93 (108) 89 07/30/20 12:00 106 07/30/20 12:00 20 Mechanical Ventilator 100 07/30/20 12:00 20 139/93 Mechanical Ventilator 100 07/30/20 11:30 98.4 103 24 122/73 (89) 88 07/30/20 11:00 116 18 139/79 (99) 88 07/30/20 11:00 21 Mechanical Ventilator 100 07/30/20 11:00 21 122/73 Mechanical Ventilator 100 07/30/20 10:31 24 Mechanical Ventilator 100 07/30/20 10:30 123 20 154/74 (100) 83 07/30/20 10:18 99.2 07/30/20 10:00 99.6 122 15 144/80 (101) 82 07/30/20 10:00 20 144/80 Mechanical Ventilator 100 07/30/20 09:30 135 19 166/86 (112) 78 07/30/20 09:00 100.7 105 17 147/79 (101) 86 07/30/20 09:00 20 147/79 Mechanical Ventilator 100 07/30/20 08:30 89 17 181/83 (115) 90 07/30/20 08:00 84 07/30/20 08:00 101.0 86 25 139/77 (97) 89 07/30/20 08:00 Mechanical Ventilator Mechanical Ventilator 07/30/20 08:00 21 139/77 Mechanical Ventilator 100 07/30/20 08:00 100 07/30/20 07:30 94 24 114/69 (84) 86 07/30/20 07:08 84 33 100 07/30/20 07:00 90 22 118/67 (84) 83 07/30/20 07:00 22 118/67 Mechanical Ventilator 100 07/30/20 07:00 22 Mechanical Ventilator 100 07/30/20 06:30 94 18 124/66 (85) 80 07/30/20 06:00 115 21 124/70 (88) 82 07/30/20 06:00 21 124/70 Mechanical Ventilator 100 07/30/20 06:00 21 Mechanical Ventilator 100 07/30/20 05:30 122 23 142/66 (91) 81 07/30/20 05:00 17 147/79 Mechanical Ventilator 100 07/30/20 05:00 17 Mechanical Ventilator 100 07/30/20 05:00 124 17 147/79 (101) 80 07/30/20 04:30 132 22 142/77 (98) 81 07/30/20 04:00 100 07/30/20 04:00 20 172/98 Mechanical Ventilator 100 07/30/20 04:00 20 Mechanical Ventilator 100 07/30/20 04:00 111 07/30/20 04:00 Mechanical Ventilator Mechanical Ventilator 07/30/20 04:00 99.2 107 20 172/98 (122) 83 07/30/20 03:30 104 33 172/103 (126) 77 07/30/20 03:00 18 111/63 Mechanical Ventilator 100 07/30/20 03:00 16 Mechanical Ventilator 100 07/30/20 03:00 91 16 111/63 (79) 84 07/30/20 02:30 98 18 109/70 (83) 84 07/30/20 02:00 95 25 121/70 (87) 82 07/30/20 02:00 25 121/70 Mechanical Ventilator 100 07/30/20 02:00 25 Mechanical Ventilator 100 07/30/20 01:30 102 20 115/68 (84) 82 07/30/20 01:00 21 125/62 Mechanical Ventilator 100 07/30/20 01:00 21 Mechanical Ventilator 100 07/30/20 01:00 111 21 125/62 (83) 84 07/30/20 00:32 21 126/79 Mechanical Ventilator 100 07/30/20 00:30 113 19 126/79 (95) 85 07/30/20 00:00 Mechanical Ventilator Mechanical Ventilator 07/30/20 00:00 132 07/30/20 00:00 98.9 114 27 158/105 (122) 81 07/30/20 00:00 27 158/105 Mechanical Ventilator 100 07/30/20 00:00 27 Mechanical Ventilator 100 07/30/20 00:00 100 07/29/20 23:59 122 33 100 07/29/20 23:30 104 19 138/102 (114) 82 07/29/20 23:00 121 20 126/75 (92) 80 07/29/20 23:00 19 126/75 Mechanical Ventilator 100 07/29/20 23:00 19 Mechanical Ventilator 100 07/29/20 22:30 124 21 144/79 (100) 83 07/29/20 22:17 25 Mechanical Ventilator 100 07/29/20 22:00 17 159/70 Non-Rebreather 100 07/29/20 22:00 17 Mechanical Ventilator 100 07/29/20 22:00 125 17 159/79 (105) 80 07/29/20 21:30 145 35 169/100 (123) 78 07/29/20 21:00 26 170/100 Mechanical Ventilator 100 07/29/20 21:00 26 Mechanical Ventilator 100 07/29/20 21:00 125 36 170/100 (123) 78 07/29/20 20:30 91 15 125/67 (86) 86 07/29/20 20:00 83 07/29/20 20:00 100 07/29/20 20:00 99.0 92 17 116/72 (87) 84 07/29/20 20:00 Mechanical Ventilator Mechanical Ventilator 07/29/20 20:00 17 116/72 Mechanical Ventilator 100 07/29/20 20:00 17 Mechanical Ventilator 100 07/29/20 19:45 17 112/79 Mechanical Ventilator 100 07/29/20 19:45 17 Mechanical Ventilator 100 07/29/20 19:30 89 15 112/79 (90) 85 07/29/20 19:15 90 29 100 07/29/20 19:00 95 20 103/63 (76) 84 07/29/20 19:00 20 103/63 Mechanical Ventilator 100 07/29/20 19:00 20 Mechanical Ventilator 100 07/29/20 18:16 Mechanical Ventilator 07/29/20 17:45 96 22 84 07/29/20 17:30 103 22 114/75 (88) 85 07/29/20 17:15 104 21 88 07/29/20 17:00 107 22 110/73 (85) 86 07/29/20 17:00 Mechanical Ventilator 07/29/20 16:45 107 22 83 07/29/20 16:30 104 22 118/73 (88) 83 07/29/20 16:15 118 23 82 07/29/20 16:00 159 07/29/20 16:00 124 24 127/83 (98) 80 07/29/20 16:00 Mechanical Ventilator 07/29/20 16:00 Mechanical Ventilator Mechanical Ventilator 07/29/20 16:00 100 07/29/20 15:45 128 25 80 07/29/20 15:30 135 25 122/81 (95) 80 07/29/20 15:15 113 30 100 07/29/20 15:15 141 26 80 07/29/20 15:00 Mechanical Ventilator 07/29/20 15:00 146 26 119/88 (98) 80 Intake and Output 07/29/20 07/30/20 19:00 07:00 Intake Total 770.667 ml 1000.800 ml Output Total 555 ml 930 ml Balance 215.667 ml 70.800 ml IV Total 290.667 ml 640.800 ml Tube Feeding 360 ml 360 ml Other 120 ml Output Urine Total 555 ml 930 ml Objective deferred due to COVID Laboratory Tests 07/29/20 18:15: POC Whole Blood Glucose 294H 07/29/20 20:39: POC Whole Blood Glucose [Pending] 07/29/20 23:45: POC Whole Blood Glucose 234H 07/30/20 04:00: White Blood Count 13.3H, Red Blood Count 4.03L, Hemoglobin 12.6L, Hematocrit 39.8L, Mean Corpuscular Volume 99, Mean Corpuscular Hemoglobin 31.3H, Mean Corpuscular Hemoglobin Concent 31.7L, Red Cell Distribution Width 13.3, Platelet Count 163, Mean Platelet Volume 7.6, Neutrophils (%) (Auto) , Lymphocytes (%) (Auto) , Monocytes (%) (Auto) , Eosinophils (%) (Auto) , Basophils (%) (Auto) , Differential Total Cells Counted 100, Neutrophils % (Manual) 83H, Lymphocytes % (Manual) 9L, Monocytes % (Manual) 6, Eosinophils % (Manual) 0, Basophils % (Manual) 0, Band Neutrophils 2, Platelet Estimate Adequate, Platelet Morphology Normal, Red Blood Cell Morphology Normal, Sodium Level 149H, Potassium Level 4.4, Chloride Level 109H, Carbon Dioxide Level 40H, Blood Urea Nitrogen 28H, Creatinine 0.7, Estimat Glomerular Filtration Rate > 60, Glucose Level 244H, Calcium Level 9.1, Phosphorus Level 2.2L, Magnesium Level 2.4, Ferritin 349, Total Bilirubin 0.5, Aspartate Amino Transf (AST/SGOT) 24, Alanine Aminotransferase (ALT/SGPT) 28, Alkaline Phosphatase 121H, C-Reactive Protein, Quantitative 44.6H, Pro-B-Type Natriuretic Peptide 2055H, Total Protein 6.4, Albumin 1.7L, Globulin 4.7, Albumin/Globulin Ratio 0.4L 07/30/20 06:07: POC Whole Blood Glucose [Pending] Current Medications Medications (Trade) Dose Ordered Sig/Milagro Route PRN Reason Start Time Stop Time Status Last Admin Dose Admin Acetaminophen (Tylenol) 650 mg Q4H PRN RECTAL Mild Pain (Pain Scale 1-3) 07/24/20 18:15 08/23/20 18:14 07/25/20 11:49 Acetaminophen (Tylenol) 650 mg Q6H PRN NG Mild Pain (Pain Scale 1-3) 07/26/20 08:30 08/25/20 08:29 07/29/20 11:58 Acetaminophen (Tylenol) 650 mg Q6H PRN NG Temp >100.5 07/26/20 08:30 08/25/20 08:29 07/28/20 11:54 Albuterol/ Ipratropium (Combivent Respimat) 2 puff Q2H PRN INH Shortness of Breath 07/09/20 21:45 08/08/20 21:44 07/19/20 09:17 Ascorbic Acid (Vitamin C) 500 mg EVERY 12 HOURS NG 07/26/20 21:00 08/10/20 08:59 07/30/20 10:12 Ceftriaxone Sodium 1 gm/ Dextrose 55 ml @ 110 mls/hr Q24H IVPB 07/25/20 13:00 08/01/20 12:59 07/30/20 14:32 Chlorhexidine Gluconate (Marycarmen-Hex 2%) 1 applic DAILY@2000 TOPIC 07/20/20 20:00 10/18/20 19:59 07/29/20 19:50 Dextrose (Dextrose 50%) 25 ml Q30M PRN IV Hypoglycemia 07/23/20 13:15 10/21/20 13:14 Dextrose (Dextrose 50%) 50 ml Q30M PRN IV Hypoglycemia 07/23/20 13:15 10/21/20 13:14 Dextrose/Sodium Chloride 1,000 ml @ 60 mls/hr [id number] PRN IV WHILE PRONING ONLY 07/24/20 17:45 08/23/20 17:44 07/24/20 18:01 Docusate Sodium (Colace) 100 mg EVERY 12 HOURS NG 07/27/20 21:00 08/26/20 20:59 07/30/20 10:12 Enoxaparin Sodium (Lovenox) 40 mg Q12HR SUBQ 07/26/20 09:00 10/22/20 21:29 07/30/20 10:10 Fentanyl Citrate 250 ml @ 0 mls/hr Q24H IV 07/28/20 19:30 07/30/20 19:29 07/30/20 00:32 Hydromorphone HCl (Dilaudid) 1 mg Q4H PRN IVP For Pain 4-10 07/28/20 08:30 08/04/20 08:29 07/30/20 09:48 Insulin Aspart (NovoLOG) EVERY 6 HOURS SUBQ 07/28/20 00:00 10/21/20 15:59 07/30/20 14:31 Insulin Detemir (Levemir) 26 units EVERY 12 HOURS SUBQ 07/26/20 09:00 10/20/20 08:59 07/30/20 10:11 Methylprednisolone Sodium Succinate (Solu-MEDROL) 40 mg EVERY 12 HOURS IVP 07/25/20 12:30 10/23/20 12:29 07/30/20 10:11 Midazolam HCl 100 mg/Sodium Chloride 200 ml @ 2 mls/hr Q24H PRN IV SEDATION 07/30/20 10:30 08/01/20 10:29 07/30/20 10:31 Ondansetron HCl (Zofran) 4 mg Q6H PRN IVP Nausea & Vomiting 07/09/20 21:45 08/08/20 21:44 Pantoprazole (Protonix) 40 mg DAILY IVP 07/25/20 09:00 08/24/20 08:59 07/30/20 10:11 Promethazine HCl/ Codeine (Phenergan with Codeine) 5 ml Q4H PRN ORAL For Cough 07/11/20 15:15 08/10/20 15:14 07/26/20 18:26 Vancomycin HCl 250 ml @ 166.667 mls/hr Q8H IVPB 07/27/20 11:00 08/01/20 10:59 07/30/20 10:13 Vancomycin HCl (Vanco pharmacy to dose) 1 ea DAILY PRN MISC Per rx protocol 07/26/20 09:00 08/25/20 08:59 Vitamin B Complex (Vitamin B Complex) 1 tab DAILY NG 07/24/20 09:00 10/09/20 08:59 07/30/20 10:12 Vitamin D (Vitamin D) 1,000 unit BEDTIME GT 07/27/20 21:00 08/13/20 09:29 07/29/20 20:29 Assessment/Plan Assessment/Plan acute hypoxemic respiratory failure COVID pneumonia Asthma elevated liver enzymes DNR ARDS with fibrosing phase PLAN borderline oxygen saturation monitor imaging monitor ABG respiratory care ID noted DVT prophylaxis prognosis appears poor monitor respiratory status for change medications/laboratory data/nursing notes/ICU care reviewed in detail note reviewed and edited care discussed with RN and RT ICU time spent >40 minutes Elfego Price MD Jul 30, 2020 14:59
--- NOTE | 2020-07-30 15:00 | NUR ---
NURSE NOTES: New Fentanyl bag was picked up from pharmacy and scanned to replace previous bag that is empty now. Fentanyl rate is continued at same rate, while Versed drip is being titrated up to reach/maintain -2 light sedation on RASS score.
--- NOTE | 2020-07-30 15:30 | NUR ---
NURSE NOTES: Versed drip is now at 10mg/hr, pt is -2 light sedation on RASS score. Fentanyl drip remains at 180mcg/hr.
--- NOTE | 2020-07-30 15:43 | NUR ---
NURSE NOTES: Dilaudid was administered per PRN order, goal is to "keep pt comfortable" per MD instructions.
--- NOTE | 2020-07-30 18:00 | NUR ---
NURSE NOTES: Pt remains on cooling blanket to maintain cool body temps since Temps fluctuate above 101F rectal if/when cooling blanket is off. Pt was cleaned, gown/bed linens were changed. Pt was repositioned for comfort.
--- NOTE | 2020-07-30 19:30 | NUR ---
NURSE NOTES: Received report from ELIER Peter. Pt is sedated on the bed. Pt has ETT and orally intubated. Vent dependent and setting with AC: 26, T: 500, P:16 FiO2 100% and SaO2 92% noted but fluctuated saturation. Keep comfort care. code status order is DNR. on night monitor with SR. Noted subcutaneous emphysema on upper chest and neck area and MD aware. Pt has OGT and on running with Vital AF @ 30cc/hr and noted 20cc residual. Keep HOP position. Noted BT : 99.2 F by rectal and Keep cooling measure with cooling blanket. Pt has Biswas cath and drainage well but still noted sedimentation. Pt has Lt. upper arm PICC line and dressing is clean and dry. On running with Versed @ 10mg/hr and fentanyl drip @ 180mcg/hr. Noted RASS score -2. Placed fall precaution. on proper isolation and fro COVID -19. Will continue to care plan.
--- NOTE | 2020-07-30 19:30 | NUR ---
NURSE NOTES: Fentanyl drip Rx was renewed per MD, since old Rx reached stop date. Spoke with Roseanna/pharmacist.
--- NOTE | 2020-07-30 19:31 | NUR ---
NURSE HAND-OFF REPORT: Latest Vital Signs: Temperature 98.6 , Pulse 69 , B/P 128 /76 , Respiratory Rate 26 , O2 SAT 94 , Mechanical Ventilator, ETT 7.5 at 22cm/lipline with vent settings AC26, VT500, Peep 16, FIo2 100%. Vital Sign Comment: Fentanyl drip at 180mcg/hr and Versed drip at 10mg/hr to maintain -2 light sedation. EKG Rhythm: Sinus Rhythm Rhythm change?: N Notified?: Ildefonso Cherry MD Response: Latest Bradley Fall Score: 45 Fall Risk: High Risk Safety Measures: Call light Within Reach, Bed Alarm Zone 2, Side Rails Side Rails x2, Bed position Low and Locked. Fall Precautions: Yellow Socks Yellow Gown Patient Fall Education Report given to Carola THAPA. Endorsed plan of care.
[2020-07-30] MEDS: Dyna-Hex 2% Top Sol 2oz TOPIC SCH (19:50)
[2020-07-30] MEDS: Vitamin D 1000 units Tab GT SCH (20:37)
--- NOTE | 2020-07-30 22:00 | NUR ---
NURSE NOTES: Pt is sedated on the bed and RASS -2. Family visited and see the Pt. Updated Pt's condition. Given suction and oral care. Noted SaO2 75% with current Vent setting. changed position. Will continue to monitor any change of condition.
[2020-07-31] VITALS (39 sets, daily range): BP systolic 121–180; BP diastolic 70–97
--- NOTE | 2020-07-31 | NUR ---
NURSE NOTES: Pt is sedated on the bed and RASS score -2. Noted SaO2 90% with current Vent setting. Given suction and mouth care. repositioned Pt. No fever. Placed fall precaution. will continue to monitor any change of condition.
[2020-07-31] MEDS: NovoLOG Insulin Flexpen SUBQ SCH ×4 (00:12→18:40)
[2020-07-31] MEDS: Vancomycin 1.25gm Premix IVPB SCH ×3 (03:13→18:40)
[2020-07-31] MEDS ORDERED: fentaNYL 2500mcg/NS 250ml 250 ML IV SCH (04:00)
--- NOTE | 2020-07-31 04:00 | NUR ---
NURSE NOTES: morning care was done. cleaned Pt and applied lotion and cream. Changed PICC lined dressing. SaO2 92% with Vent. Given suction. no fever at this time. On running with OGT feeding @ 30cc/hr. Placed fall precaution. Will continue to care plan.
[2020-07-31] MEDS: fentaNYL 2500mcg/NS 250ml 250 ML IV SCH ×2 (04:52→16:30)
--- NOTE | 2020-07-31 06:00 | NUR ---
NURSE NOTES: Pt is sedated on the bed and RASS -2. Noted SaO2 93% with Vent. given suction and mouth care. No fever at this time. Turn and reposition. Will continue to monitor any change of condition.
[2020-07-31 06:58] LABS: HEMATOCRIT 38.8 % (42.0-52.0); HEMOGLOBIN 12.5 G/DL (14.2-18.0); MEAN CORPUSCULAR VOLUME 97 FL (80-99); PLATELET COUNT 158 K/UL (150-450); RED BLOOD COUNT 4.02 M/UL (4.70-6.10); RED CELL DISTRIBUTION WIDTH 14.5 % (11.6-14.8); WHITE BLOOD COUNT 11.1 K/UL (4.8-10.8)
--- NOTE | 2020-07-31 07:27 | NUR ---
NURSE HAND-OFF REPORT: Latest Vital Signs: Temperature 97.0 , Pulse 60 , B/P 149 /87 , Respiratory Rate 21 , O2 SAT 93 , Mechanical Ventilator, O2 Flow Rate . Vital Sign Comment: EKG Rhythm: Sinus Rhythm Rhythm change?: N Latest Bradley Fall Score: 45 Fall Risk: High Risk Safety Measures: Call light Within Reach, Bed Alarm Zone 2, Side Rails Side Rails x2, Bed position Low and Locked. Fall Precautions: Yellow Socks Yellow Gown Patient Fall Education Report given to ELIER Martin. Pt is sedate on the bed and RASS-2. On running with Fentanyl drip @ 180mcg/hr and Versed @ 10mg/hr.
[2020-07-31] MEDS: Midazolam HCl 50mg/10ml vial 100 MG in NS 180 ML IV PRN ×3 (07:30→20:30)
--- NOTE | 2020-07-31 07:30 | NUR ---
NURSE NOTES: Pt was assessed after receiving change of shift report from Carola THAPA. Pt is sedated -2 light sedation while on Fentanyl drip at 180mcg/hr and Versed drip at 10mg/hr. Responsive to voice, opens eyes for 10seconds. Orally intubated, ETT 7.5 at 22cm/lipline with vent settings AC26, VT500, Peep 16, FIO2 100%, with O2Sat fluctuating from 80-90%. Bilateral rales on auscultation, and crepitus noted on mid/upper chest. Generalized mild edema. ST on cst, HR 104. Temp 98F/rectal while maintained on cooling blanket to regulate body temperature. Right nare NGT with feeding Vital AF 1.2 infusing at 30ml/hour. Abdomen is large, round, soft, nontender to touch with hypoactive bowel sounds. Biswas catheter, 16F present, draining cloudy/dark yen urine with sedimentation. Left UA PICC line and left FA #20G, both patent/intact. Skin is intact. HOB at 30 degrees, bed locked, in lowest position, three side rails up. Will continue to monitor pt and follow plan of care per MD orders and protocol.
--- NOTE | 2020-07-31 07:35 | NUR ---
NURSE NOTES: Dilaudid was administered per PRN order and instructions by Dr Cherry "to keep pt comfortable". New Versed bag was started to replace previous empty bag, maintaining same rate 10mg/hr for -2 light sedation.
[2020-07-31] MEDS: HYDROmorphone 1mg/ml Carpuject IVP PRN ×2 (07:37→12:00)
[2020-07-31 07:55] LABS: ALANINE AMINOTRANSFERASE 31 U/L (12-78); ALBUMIN 1.8 G/DL (3.4-5.0); ALBUMIN/GLOBULIN RATIO 0.4 (1.0-2.7); ALKALINE PHOSPHATASE 111 U/L (46-116); ASPARTATE AMINO TRANSFERASE 24 U/L (15-37); BILIRUBIN,TOTAL 0.5 MG/DL (0.2-1.0); BLOOD UREA NITROGEN 29 mg/dL (7-18); CALCIUM 9.1 MG/DL (8.5-10.1); CARBON DIOXIDE 40 MMOL/L (21-32); CHLORIDE 107 MMOL/L (98-107); CREATININE 0.6 MG/DL (0.55-1.30); POTASSIUM 4.3 MMOL/L (3.5-5.1); SODIUM 146 MMOL/L (136-145)
--- NOTE | 2020-07-31 09:10 | Diagnostic Imaging Report ---
EXAM: XR Chest, 1 View CLINICAL HISTORY: SOB TECHNIQUE: Frontal view of the chest. COMPARISON: 07/28/20 FINDINGS: Lungs: There are unchanged moderate diffuse bilateral alveolar infiltrates consistent with pneumonia. Pleural space: Since the prior study, there has been development of approximately 25% right pneumothorax. There is unchanged pneumomediastinum and improving subcutaneous gas in the left neck. Heart: Unremarkable. No cardiomegaly. Mediastinum: See above. Bones/joints: Unremarkable. Tubes, lines and devices: There is an endotracheal tube and NG tube in unchanged position. There is a left-sided PICC line also good position. IMPRESSION: 1. Since the prior study, there has been development of approximately 25% right pneumothorax. There is unchanged pneumomediastinum and improving subcutaneous gas in the left neck. 2. There are unchanged moderate diffuse bilateral alveolar infiltrates consistent with pneumonia. <MYCVCSECTION> Communications: 07/31/20 09:28 Call Doctor Regarding Pneumothorax, called Dr. Cherry on 07/31 09:28 (-08:00)
[2020-07-31] MEDS: Enoxaparin 40mg Inj SUBQ SCH ×2 (09:23→20:28)
[2020-07-31] MEDS: Levemir Flexpen SUBQ SCH ×2 (09:24→21:00)
--- NOTE | 2020-07-31 09:44 | Pulmonology Progress Note ---
Subjective ROS Limited/Unobtainable: Yes Constitutional: Reports: fever, other - Bk=[id number] Gastrointestinal/Abdominal: Denies: nausea, vomiting, diarrhea Musculoskeletal: Denies: pain Allergies: Coded Allergies: No Known Allergies (Unverified , 03/08/17) All Systems: reviewed and negative except above Subjective not improved on high oxygen on vent Objective Last 24 Hour Vital Signs Date Time Temp Pulse Resp B/P (MAP) Pulse Ox O2 Delivery O2 Flow Rate FiO2 07/31/20 08:07 97.0 07/31/20 07:30 21 Mechanical Ventilator 15.0 100 07/31/20 07:00 21 149/87 Mechanical Ventilator 100 07/31/20 07:00 21 Mechanical Ventilator 100 07/31/20 07:00 60 21 149/87 (107) 93 07/31/20 06:30 59 23 150/84 (106) 93 07/31/20 06:00 69 21 136/85 (102) 93 07/31/20 06:00 21 136/85 Mechanical Ventilator 100 07/31/20 06:00 21 Mechanical Ventilator 100 07/31/20 05:30 54 22 143/82 (102) 95 07/31/20 05:00 61 23 143/80 (101) 92 07/31/20 05:00 23 143/80 Mechanical Ventilator 100 07/31/20 05:00 23 Mechanical Ventilator 100 07/31/20 04:52 23 149/81 Mechanical Ventilator 100 07/31/20 04:30 63 23 149/81 (103) 92 07/31/20 04:00 100 07/31/20 04:00 97.0 63 22 154/82 (106) 92 07/31/20 04:00 22 Mechanical Ventilator 100 07/31/20 04:00 22 154/82 Mechanical Ventilator 100 07/31/20 04:00 Mechanical Ventilator Mechanical Ventilator 07/31/20 04:00 60 07/31/20 03:30 63 23 153/96 (115) 93 07/31/20 03:00 21 Non-Rebreather 92 07/31/20 03:00 21 175/93 Mechanical Ventilator 100 07/31/20 03:00 84 21 175/93 (120) 92 07/31/20 02:30 67 23 151/87 (108) 92 07/31/20 02:00 23 Mechanical Ventilator 100 07/31/20 02:00 23 144/73 Mechanical Ventilator 100 07/31/20 02:00 64 23 144/73 (96) 94 07/31/20 01:30 63 25 142/82 (102) 95 07/31/20 01:11 75 28 100 07/31/20 01:00 68 25 147/90 (109) 93 07/31/20 01:00 25 Mechanical Ventilator 100 07/31/20 01:00 25 147/85 Mechanical Ventilator 100 07/31/20 00:30 67 25 144/82 (102) 92 07/31/20 00:00 97.0 74 23 150/85 (106) 90 07/31/20 00:00 72 07/31/20 00:00 23 Mechanical Ventilator 100 07/31/20 00:00 23 150/85 Mechanical Ventilator 100 07/31/20 00:00 100 07/31/20 00:00 Mechanical Ventilator Mechanical Ventilator 07/30/20 23:30 76 20 134/89 (104) 90 07/30/20 23:00 82 17 144/78 (100) 90 07/30/20 23:00 17 Mechanical Ventilator 100 07/30/20 23:00 17 144/78 Mechanical Ventilator 100 07/30/20 22:30 94 22 162/83 (109) 91 07/30/20 22:12 15 Mechanical Ventilator 100 07/30/20 22:00 21 176/92 Mechanical Ventilator 100 07/30/20 22:00 122 21 176/92 (120) 75 07/30/20 21:30 128 24 178/81 (113) 74 07/30/20 21:00 129 29 186/104 (131) 76 07/30/20 21:00 29 Mechanical Ventilator 100 07/30/20 21:00 29 186/104 Mechanical Ventilator 100 07/30/20 20:30 96 14 146/95 (112) 92 07/30/20 20:00 16 Mechanical Ventilator 100 07/30/20 20:00 16 131/82 Mechanical Ventilator 100 07/30/20 20:00 67 07/30/20 20:00 100 07/30/20 20:00 98.0 78 16 131/82 (98) 93 07/30/20 20:00 Mechanical Ventilator Mechanical Ventilator 07/30/20 19:30 68 20 123/80 (94) 93 07/30/20 19:03 69 26 100 07/30/20 19:02 72 26 94 Mechanical Ventilator 100 07/30/20 19:00 23 Mechanical Ventilator 100 07/30/20 19:00 23 128/76 Mechanical Ventilator 100 07/30/20 19:00 71 19 124/72 (89) 94 07/30/20 18:30 75 19 122/82 (95) 94 07/30/20 18:00 65 22 128/76 (93) 94 07/30/20 18:00 22 Mechanical Ventilator 100 07/30/20 18:00 22 122/82 Mechanical Ventilator 100 07/30/20 17:30 72 23 121/76 (91) 94 07/30/20 17:00 21 Mechanical Ventilator 100 07/30/20 17:00 21 121/76 Mechanical Ventilator 100 07/30/20 17:00 98.6 82 21 123/76 (92) 91 07/30/20 16:13 98.6 07/30/20 16:00 75 26 135/74 (94) 87 07/30/20 16:00 100 07/30/20 16:00 Mechanical Ventilator Mechanical Ventilator 07/30/20 16:00 25 Mechanical Ventilator 100 07/30/20 16:00 25 130/77 Mechanical Ventilator 100 07/30/20 16:00 77 07/30/20 15:50 84 28 100 07/30/20 15:45 22 Mechanical Ventilator 100 07/30/20 15:30 75 26 130/77 (94) 88 07/30/20 15:30 22 Mechanical Ventilator 100 07/30/20 15:15 20 Mechanical Ventilator 100 07/30/20 15:00 19 Mechanical Ventilator 100 07/30/20 15:00 22 132/83 Mechanical Ventilator 100 07/30/20 15:00 79 26 127/76 (93) 88 07/30/20 14:30 85 26 141/76 (97) 88 07/30/20 14:00 20 Mechanical Ventilator 100 07/30/20 14:00 20 134/80 Mechanical Ventilator 100 07/30/20 14:00 85 21 169/97 (121) 88 07/30/20 13:30 82 22 124/76 (92) 87 07/30/20 13:00 84 22 132/83 (99) 87 07/30/20 13:00 22 Mechanical Ventilator 100 07/30/20 13:00 22 119/73 Mechanical Ventilator 100 07/30/20 12:30 84 22 126/81 (96) 87 07/30/20 12:00 Mechanical Ventilator Mechanical Ventilator 07/30/20 12:00 100 07/30/20 12:00 89 18 139/93 (108) 89 07/30/20 12:00 106 07/30/20 12:00 20 Mechanical Ventilator 100 07/30/20 12:00 20 139/93 Mechanical Ventilator 100 07/30/20 11:30 98.4 103 24 122/73 (89) 88 07/30/20 11:00 116 18 139/79 (99) 88 07/30/20 11:00 21 Mechanical Ventilator 100 07/30/20 11:00 21 122/73 Mechanical Ventilator 100 07/30/20 10:31 24 Mechanical Ventilator 100 07/30/20 10:30 123 20 154/74 (100) 83 07/30/20 10:18 99.2 07/30/20 10:00 99.6 122 15 144/80 (101) 82 07/30/20 10:00 20 144/80 Mechanical Ventilator 100 Intake and Output 0 07/30/20 07/31/20 19:00 07:00 Intake Total 1418.501 ml 1234.733 ml Output Total 530 ml 850 ml Balance 888.501 ml 384.733 ml Free Water 150 ml IV Total 908.501 ml 874.733 ml Tube Feeding 360 ml 360 ml Output Urine Total 530 ml 850 ml Objective deferred due to COVID Laboratory Tests 07/30/20 20:45: POC Whole Blood Glucose [Pending] 07/31/20 00:09: POC Whole Blood Glucose 262H 07/31/20 05:25: White Blood Count 11.1H, Red Blood Count 4.02L, Hemoglobin 12.5L, Hematocrit 38.8L, Mean Corpuscular Volume 97, Mean Corpuscular Hemoglobin 31.2H, Mean Corpuscular Hemoglobin Concent 32.3, Red Cell Distribution Width 14.5, Platelet Count 158, Mean Platelet Volume 7.6, Neutrophils (%) (Auto) , Lymphocytes (%) (Auto) , Monocytes (%) (Auto) , Eosinophils (%) (Auto) , Basophils (%) (Auto) , Differential Total Cells Counted 100, Neutrophils % (Manual) 91H, Lymphocytes % (Manual) 5L, Monocytes % (Manual) 2, Eosinophils % (Manual) 0, Basophils % (Manual) 0, Band Neutrophils 2, Platelet Estimate Adequate, Platelet Morphology Normal, Polychromasia 1+, Anisocytosis 1+, Sodium Level 146H, Potassium Level 4.3, Chloride Level 107, Carbon Dioxide Level 40H, Blood Urea Nitrogen 29H, Creatinine 0.6, Estimat Glomerular Filtration Rate > 60, Glucose Level 242H, Calcium Level 9.1, Total Bilirubin 0.5, Aspartate Amino Transf (AST/SGOT) 24, Alanine Aminotransferase (ALT/SGPT) 31, Alkaline Phosphatase 111, Total Protein 6.2L, Albumin 1.8L, Globulin 4.4, Albumin/Globulin Ratio 0.4L Current Medications Medications (Trade) Dose Ordered Sig/Milagro Route PRN Reason Start Time Stop Time Status Last Admin Dose Admin Acetaminophen (Tylenol) 650 mg Q4H PRN RECTAL Mild Pain (Pain Scale 1-3) 07/24/20 18:15 08/23/20 18:14 07/25/20 11:49 Acetaminophen (Tylenol) 650 mg Q6H PRN NG Mild Pain (Pain Scale 1-3) 07/26/20 08:30 08/25/20 08:29 07/29/20 11:58 Acetaminophen (Tylenol) 650 mg Q6H PRN NG Temp >100.5 07/26/20 08:30 08/25/20 08:29 07/28/20 11:54 Albuterol/ Ipratropium (Combivent Respimat) 2 puff Q2H PRN INH Shortness of Breath 07/09/20 21:45 08/08/20 21:44 07/19/20 09:17 Ascorbic Acid (Vitamin C) 500 mg EVERY 12 HOURS NG 07/26/20 21:00 08/10/20 08:59 07/30/20 20:37 Ceftriaxone Sodium 1 gm/ Dextrose 55 ml @ 110 mls/hr Q24H IVPB 07/25/20 13:00 08/01/20 12:59 07/30/20 14:32 Chlorhexidine Gluconate (Marycarmen-Hex 2%) 1 applic DAILY@2000 TOPIC 07/20/20 20:00 10/18/20 19:59 07/30/20 19:50 Dextrose (Dextrose 50%) 25 ml Q30M PRN IV Hypoglycemia 07/23/20 13:15 10/21/20 13:14 Dextrose (Dextrose 50%) 50 ml Q30M PRN IV Hypoglycemia 07/23/20 13:15 10/21/20 13:14 Dextrose/Sodium Chloride 1,000 ml @ 60 mls/hr [id number] PRN IV WHILE PRONING ONLY 07/24/20 17:45 08/23/20 17:44 07/24/20 18:01 Docusate Sodium (Colace) 100 mg EVERY 12 HOURS NG 07/27/20 21:00 08/26/20 20:59 07/30/20 20:37 Enoxaparin Sodium (Lovenox) 40 mg Q12HR SUBQ 07/26/20 09:00 10/22/20 21:29 07/31/20 09:23 Fentanyl Citrate 250 ml @ 1 mls/hr Q24H IV 07/31/20 04:00 08/02/20 03:59 07/31/20 04:52 Hydromorphone HCl (Dilaudid) 1 mg Q4H PRN IVP For Pain 4-10 07/28/20 08:30 08/04/20 08:29 07/31/20 07:37 Insulin Aspart (NovoLOG) EVERY 6 HOURS SUBQ 07/28/20 00:00 10/21/20 15:59 07/31/20 05:56 Insulin Detemir (Levemir) 26 units EVERY 12 HOURS SUBQ 07/26/20 09:00 10/20/20 08:59 07/31/20 09:24 Methylprednisolone Sodium Succinate (Solu-MEDROL) 40 mg EVERY 12 HOURS IVP 07/25/20 12:30 10/23/20 12:29 07/30/20 20:37 Midazolam HCl 100 mg/Sodium Chloride 200 ml @ 2 mls/hr Q24H PRN IV SEDATION 07/30/20 10:30 08/01/20 10:29 07/31/20 07:30 Ondansetron HCl (Zofran) 4 mg Q6H PRN IVP Nausea & Vomiting 07/09/20 21:45 08/08/20 21:44 Pantoprazole (Protonix) 40 mg DAILY IVP 07/25/20 09:00 08/24/20 08:59 07/30/20 10:11 Promethazine HCl/ Codeine (Phenergan with Codeine) 5 ml Q4H PRN ORAL For Cough 07/11/20 15:15 08/10/20 15:14 07/26/20 18:26 Vancomycin HCl 250 ml @ 166.667 mls/hr Q8H IVPB 07/27/20 11:00 08/01/20 10:59 07/31/20 03:13 Vancomycin HCl (Vanco pharmacy to dose) 1 ea DAILY PRN MISC Per rx protocol 07/26/20 09:00 08/25/20 08:59 Vitamin B Complex (Vitamin B Complex) 1 tab DAILY NG 07/24/20 09:00 10/09/20 08:59 07/30/20 10:12 Vitamin D (Vitamin D) 1,000 unit BEDTIME GT 07/27/20 21:00 08/13/20 09:29 07/30/20 20:37 Assessment/Plan Assessment/Plan acute hypoxemic respiratory failure COVID pneumonia Asthma elevated liver enzymes DNR ARDS with fibrosing phase PLAN borderline oxygen saturation/ not improved monitor imaging monitor ABG respiratory care ID noted DVT prophylaxis prognosis appears poor for meaningful recovery monitor respiratory status for change medications/laboratory data/nursing notes/ICU care reviewed in detail note reviewed and edited care discussed with RN and RT ICU time spent >40 minutes Elfego Price MD Jul 31, 2020 09:44
--- NOTE | 2020-07-31 10:00 | NUR ---
NURSE NOTES: Dr Price was contacted to report chest xray results revealing right pneumothorax. Per MD instructions, Dr Butler was contacted for chest tube insertion. Per Dr Price, maintain same vent settings at this time.
[2020-07-31] MEDS: Pantoprazole Inj IVP SCH (10:04)
[2020-07-31] MEDS: Vitamin B Complex Tab NG SCH (10:05)
[2020-07-31] MEDS: Docusate 100mg/10ml Liq NG SCH ×2 (10:05→21:30)
[2020-07-31] MEDS: Solu-MEDROL 40mg Inj IVP SCH ×2 (10:05→20:27)
[2020-07-31] MEDS: Ascorbic Acid 500mg tab NG SCH ×2 (10:06→20:27)
--- NOTE | 2020-07-31 11:50 | NUR ---
NURSE NOTES: Dr. Diana re-intubated patient with 7.5 ETT at 22cm with ventilator AC 26 TV 500 FiO2 100% PEEP 15. awaiting CXR confirmation. Addendum: 08/01/20 at 0210 by Christina Wolfe RN Above note entry for 07/31/20 at 9850.
--- NOTE | 2020-07-31 12:00 | NUR ---
NURSE NOTES: Dr Butler is at bedside inserting right chest tube for right pneumothorax per Dr Price's order. Consent was received from pt's brother over the phone. Dilaudid was just administered per PRN order and per Dr Butler's instruction prior to chest tube insertion. Fentanyl and Versed drips are both being titrated up to reach/maintain -2 light sedation on RASS score. Chest tube was successfully inserted and set up by Dr Butler. Post/procedure chest xray was order. Dr Butler at the nurse's station to review chest xray.
--- NOTE | 2020-07-31 12:18 | Operative Note - PDOC ---
Operative Note Operative Note Date of Operation/Procedure: Jul 31, 2020 Pre-op Diagnosis: right expanding pneumothorax covid + Procedure: right chest tube insertion Post-op Diagnosis: same as pre-op Surgeon: sae butler md Anesthesia: local, moderate sedation Specimen: none Complications: none Condition: unstable Fluids: none Estimated Blood Loss: minimal Drains: other Implant(s) used?: No Indications for Procedure 31M covid + in vent support recent cxr with >25% pneumothorax developed. right chest tube indicated and recommended as patient in 16 peep and 100% fio2 vent support with new ptx. Description of Procedure consent obtained from family. patient made comfortable at bedside in supine position on vent. critical condition. right chest wall and axilla prepped and draped in standard surgical fashion. anatomy identified. skin incision made and dissected to rib margins. entry into pleural space obtained and gush of air noted. 32F chest tube inserted under guidance without complication. sutured in place and dressings applied. placed onto pleuravac. cxr ordered patient tolerated well Sae Butler Jul 31, 2020 12:18
[2020-07-31] MEDS: cefTRIAXone 1 GM in D5W 55 ML IVPB SCH (13:55)
--- NOTE | 2020-07-31 14:10 | Diagnostic Imaging Report ---
EXAM: XR Chest, 1 View CLINICAL HISTORY: TUBE PLCMT TECHNIQUE: Frontal view of the chest. COMPARISON: Chest x-rays dated 07/31/20 at 8:37 AM. FINDINGS: Lungs: Bilateral patchy pulmonary opacities and increased interstitial markings, concerning for pneumonia. Pleural space: Unremarkable. The costophrenic angles are sharp. Previously noted right apical pneumothorax no longer identified. Heart: Unremarkable. No cardiomegaly. Mediastinum: Unremarkable. Bones/joints: Unremarkable. Tubes, lines and devices: Interval placement of a right-sided chest tube, with the tip located in the right medial cardiac phrenic sulcus. Endotracheal tube tip is 11 cm above the blaine. NG tube tip in the region of the distal stomach. Left arm PICC with catheter tip in the right atrium. Telemetry leads overlie the thorax. IMPRESSION: 1. Endotracheal tube tip is 11 cm above the blaine. Recommend advancing 7 cm. 2. Interval placement of a right-sided chest tube and significant reduction in size of a right apical pneumothorax. Tube tip is located in the right medial cardiophrenic sulcus. 3. Bilateral patchy pulmonary opacities, concerning for pneumonia.
--- NOTE | 2020-07-31 14:12 | Diagnostic Imaging Report ---
EXAM: XR Chest, 1 View CLINICAL HISTORY: TUBE PLCMT TECHNIQUE: Frontal view of the chest. COMPARISON: Chest x-rays dated 07/31/20 at 12:33 PM and 8:37 AM FINDINGS: Lungs: Patchy opacities in bilateral lungs, concerning for pneumonia. Pleural space: Unremarkable. The costophrenic angles are sharp. No visible pneumothorax. Heart: Unremarkable. No cardiomegaly. Mediastinum: Unremarkable. Bones/joints: Unremarkable. Tubes, lines and devices: Right chest tube in place with the tip in the right subpulmonic space. Endotracheal tube tip is 11 cm above the blaine. Left arm PICC with the catheter tip in the right atrium. NG tube tip in the distal stomach. IMPRESSION: 1. Right chest tube in place with the tip in the right subpulmonic space. The previously noted right apical pneumothorax is no longer identified. 2. Endotracheal tube tip is 11 cm above the blaine. Recommend advancing 6-7 cm. 3. Patchy opacities in bilateral lungs, concerning for pneumonia. <MYCVCSECTION> Communications: 07/31/20 14:36 Verify Receipt with Nurse Verified receipt with ELIER Martin on 07/31 14:38 (-08:00)
--- NOTE | 2020-07-31 14:15 | NUR ---
NURSE NOTES: Pt has now reached -2 light sedation on RASS score while currently on Fentanyl drip at 300mcg/hr and Versed drip at 20mg/hr. O2Sats are now improving and increasing up to 98%, post chest tube insertion today at 1200/afternoon. VS remain stable.
--- NOTE | 2020-07-31 15:00 | NUR ---
NURSE NOTES: New Versed bag was started to replace previous empty bag.
--- NOTE | 2020-07-31 16:30 | NUR ---
NURSE NOTES: New Fentanyl bag was started to replace previous empty bag, continuing same rate of 300mcg/hr to maintain -2 light sedation and pt pain free post chest tube insertion this afternoon. Tube feeding is on hold at this time due to residuals above 100ml. Pt's blood glucose levels remain above 200ml and being covered by sliding scale Novolog per order.
--- NOTE | 2020-07-31 18:30 | NUR ---
NURSE NOTES: Pt remains -2 light sedation while on max rate of Fentanyl and Versed drips per protocol with stable VS and O2Sats 96-99%. Afebrile while maintained on cooling blanket to regulate body temperature. Right chest tube remains in place, intact and dry/dressing, total output for my shift is 20ml.
--- NOTE | 2020-07-31 19:15 | NUR ---
NURSE HAND-OFF REPORT: Latest Vital Signs: Temperature 97.9 , Pulse 75 , B/P 126 /80 , Respiratory Rate 23 , O2 SAT 97 , Mechanical Ventilator, ETT 7.5 at 22cm/lipline with vent settings AC26, VT500, Peep 16, FIo2 100%. Vital Sign Comment: Pt remains -2 light sedation while maintained on Fentanyl drip 300mcg/hr and Versed drip 20mg/hr. Right chest tube in place, total output 20ml. Pt is maintained on cooling blanket to regulate body temperature. EKG Rhythm: Sinus Rhythm Rhythm change?: N Notified?: Y Steve Cherry MD Response: Latest Bradley Fall Score: 45 Fall Risk: High Risk Safety Measures: Call light Within Reach, Bed Alarm Zone 2, Side Rails Side Rails x2, Bed position Low and Locked. Fall Precautions: Yellow Socks Yellow Gown Patient Fall Education Report given to Christina THAPA. Endorsed plan of care.
--- NOTE | 2020-07-31 19:16 | NUR ---
NURSE NOTES: Patient received from ELIER Martin. patient sedated with 7.5 ETT at 22 cm lipline on ventilator AC 26 TV 500 FiO2 100% PEEP 16. BP121/77 HR74 NSR on monitor. Left upper arm PICC line running fentanyl 300mcg/hr and versed 20mg/hr asymptomatic and left forearm PIV #20 SL. right side chest tube in place with 25ml of serous drainage noted in collection chamber from day shift, Pleur-vac secured to floor at bedside. right nare NGT clamped after chest tube insertion. Biswas catheter draining light yen urine. bilateral hand dependent edema noted, and lower lip scab dry intact open to air. patient repositioned and oral care provided.
[2020-07-31] MEDS: Dyna-Hex 2% Top Sol 2oz TOPIC SCH (20:27)
[2020-07-31] MEDS: Vitamin D 1000 units Tab GT SCH (21:00)
--- NOTE | 2020-07-31 22:00 | NUR ---
NURSE NOTES: patient sedated with 7.5 ETT at 22 cm lipline on ventilator AC 26 TV 500 FiO2 100% PEEP 16. BP145/77 HR77 NSR on monitor. Left upper arm PICC line running fentanyl 300mcg/hr and versed 20mg/hr asymptomatic. right side chest tube in place, Pleur-vac secured to floor at bedside, clamp at bedside. right nare NGT running Vital AF 1.2 @10ml/hr. Biswas catheter draining yellow urine. patient repositioned and oral care provided.
--- NOTE | 2020-07-31 22:57 | NUR ---
NURSE NOTES: Paged Dr. Cherry to report ETT tube leak and not receiving volumes. patient is s/p chest tube insertion. Dr. Cherry aware, stated he would call ER doctor.
[2020-08-01] VITALS (24 sets, daily range): BP systolic 131–172; BP diastolic 66–110
--- NOTE | 2020-08-01 | NUR ---
NURSE NOTES: patient sedated with 7.5 ETT at 22 cm lipline on ventilator AC 26 TV 500 FiO2 100% PEEP 15. Dr. Diana ordered to advance ETT to 26cm lipline, RT paged. BP163/102 HR124 Sinus Tachy on monitor. Left upper arm PICC line running fentanyl held per Dr. Diana and versed 20mg/hr asymptomatic and left forearm PIV #20 SL. right side chest tube, Pleur-vac secured to floor at bedside. right nare NGT clamped s/p re-intubation. Biswas catheter draining light yen urine. patient repositioned and oral care provided.
[2020-08-01] MEDS: NovoLOG Insulin Flexpen SUBQ SCH ×4 (00:16→18:00)
--- NOTE | 2020-08-01 00:35 | Emergency Room Report ---
History of Present Illness General Chief Complaint: Dyspnea/Respdistress Source: Patient, Medical Record, EMS Present Illness HPI I was consulted by Dr Cherry to eval for ETT malfunction. Patient is a 30YO obese male PMHx HTN, asthma, DM admitted to ICU in acute hypoxemic respiratory failure 2/2 SARS-coV-2, now in severe ARDS. Patient developed R PTX due to high PEEP and is s/p R chest tube 07/31/2019. Patient is currently sedated on fentanyl and versed drip. RT states patient is not taking adequate volumes. On exam, patient has notable chest wall rigidity. Pt was taken off fent gtt and paralyzed with rocuronium 100mg IV followed by succinylcholine 120mg IV for better vent synchrony. Initial CXR shows ETT is misplaced above 10cm above the blaine. Patient was reintubated via ETT exchange over a gum elastic bougie. Post-intubation xray shows satisfactory position of ETT. ETT was 22cm secured a the lip. Large gastric bubble identified likely pushing on L lung and causing difficulty w oxygenation. OG feeding was stopped as patient had an episode of aspiration. Feeding OG tube was discontinued. New OG tube inserted for gastric decompression. ETT was then advanced to 25cm at lip. Difficult to advance further. Suspect tracheal stenosis vs tracheal obstruction. ARDS net protocol vent management (Goal O2 sat 88-95%; Pao2 55-80). ABG ordered for further vent titration. Primary team notified. I was informed by RT that the ABG machine is broken. 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 COVID-19 Screening: Positive COVID-19 COVID-19 Testing Source: 1 week ago Nursing Documentation-PMH Hx Cardiac Problems: No Hx Hypertension: Yes Hx Asthma: Yes Hx Cancer: No Hx Gastrointestinal Problems: No Hx Neurological Problems: No Physical Exam Vital Signs Date Time Temp Pulse Resp B/P (MAP) Pulse Ox O2 Delivery O2 Flow Rate FiO2 07/28/20 07:00 26 118/82 Mechanical Ventilator 100 07/28/20 07:00 110 93 07/28/20 09:28 100.8 07/28/20 12:00 15.0 Sp02 EP Interpretation: reviewed, abnormal Procedures Critical Care Time Critical Care Time Procedure Note: Endotracheal Intubation by me: Pre assessment performed. See preceding note for details. Pre-oxygenation performed with 100% oxygen RSI: Performed w/o complication or hypoxic events. Medications as ordered. Emergency Endotracheal Intubation: Consent unable to be obtained due to emergent nature of procedure and airway assessment this patient was prepared for endotracheal intubation with preoxygenation and airway positioning. The patient underwent rapid sequence induction and endotracheal intubation utilizing direct visualization laryngoscopy. The endotracheal tube was placed between the vocal cords and placement was confirmed with fogging of the tube, end title CO2, and equal bilateral chest rise as well as absence of borborygmi over the epigastrium. Chest x-ray was obtained for final confirmation. There were no complications. Blade: NONE. Performed ETT exchange over gum elastic bougie ET Tube: 7.5 cm Depth: 23 cm at the lip Complications: No hypoxic events or bradycardia Intubation confirmed by colorimetric CO2, equal breath sounds, quiet over the stomach. Confirmed with CXR and DL visualization of tube through cords. Intubated with full C spine precautions, with the assistance of diagnostics sales developer. Critical Care Statement Organ systems at risk include: cardiac, circulatory, pulmonology, airway Critical care performed for 75 minutes. Time is exclusive of separately billable procedures. Time includes: direct patient care, continuous monitoring and multiple patient reassessment, coordination of patient care, review of patient's medical records, medical consultation, family consultation regarding treatment decisions and documentation of patient care. Additional Procedure Procedure Narrative Procedure: Mechanical ventilation management Indication: Hypoxia PC AC Vt 500cc RR 14 PEEP 16-18 FiO2 100% per ARDS NET PROTOCOL Pt tolerated procedure well Medical Decision Making Diagnostic Impression: Primary Impression: Acute respiratory distress syndrome (ARDS) due to 2019-nCoV Additional Impressions: Acute hypoxemic respiratory failure due to COVID-19 Hypoxia Hypercapnia Diabetes Obesity (BMI 30-39.9) HTN (hypertension) Asthma Chest X-Ray Diagnostic Results Chest X-Ray Diagnostic Results : JEANIE Borden Chest X-Ray #1 Views: 1 view(s) Indication: ET tube malfunction Findings: Normal heart size. Mediastinum normal. Multifocal pneumonia. ETT is folded in upon itself and is located several centimeters above the blaine Impression: Misplaced ETT ; R PTX s/p chest tube The X-ray(s) were independently viewed and interpreted contemporaneously Electronically signed by Fallon vázquez DO Chest X-Ray #2 Views: 1 view(s) Indication: ET tube malfunction Findings: Normal heart size. Mediastinum normal. Multifocal pneumonia. ETT is folded in upon itself and is located several centimeters above the blaine Impression: Misplaced ETT ; R PTX s/p chest tube The X-ray(s) were independently viewed and interpreted contemporaneously Electronically signed by Fallon vázquez DO Chest X-ray #3 COVID PNA. R PTX s/p R chest tube. Normal heart size. Mediastinum normal. Multifocal infiltrate. ETT in appropriate position above Blaine. OG/NG tube in appropriate position Indication: s/p replacement of ETT and placement confirmation Impression: Appropriately positioned ETT; R PTX s/p chest tube Views: 1 view The X-rays were independently viewed by me and interpreted contemporaneously by me. Chest X-ray #4 COVID PNA. R PTX s/p R chest tube. Normal heart size. Mediastinum normal. Mult ifocal infiltrate. ETT in appropriate position above Blaine. OG/NG tube in appropriate position Indication: s/p replacement of ETT and placement confirmation Impression: High lying ETT; R PTX s/p chest tube Views: 1 view The X-rays were independently viewed by me and interpreted contemporaneously by me. Reevaluation Time: 00:13 Last Vital Signs Date Time Temp Pulse Resp B/P (MAP) Pulse Ox O2 Delivery O2 Flow Rate FiO2 07/31/20 22:00 22 145/77 Mechanical Ventilator 100 07/31/20 22:00 77 98 07/31/20 20:00 98.0 07/31/20 16:30 15.0 Status: improved Disposition: ADMITTED INPATIENT Admit Decision Time: 00:13 Condition: Critical Referrals: NOT CHOSEN IPA/,REFERRING (PCP) Fallon Diana D.O. Aug 01, 2020 00:35
--- NOTE | 2020-08-01 00:37 | Diagnostic Imaging Report ---
EXAM: XR Chest, 1 View CLINICAL HISTORY: SCREEN TECHNIQUE: Frontal view of the chest. COMPARISON: Chest x-ray 07/31/2020 at 12:46 PM. FINDINGS: Lungs: There are extensive hazy and patchy airspace opacities throughout the right greater than left lungs. Pleural space: Unremarkable. No pneumothorax. Heart: Borderline cardiomegaly. Mediastinum: Unremarkable. Bones/joints: Unremarkable. Tubes, lines and devices: The patient is intubated with a ET tube overlying the upper trachea above the level of the clavicles and approximately 12 cm above the level of the blaine. Consider advancement. An enteric tube courses below the level of the diaphragm and extends beyond the [id number]. A left upper extremity PICC terminates at the superior cavoatrial junction. Upper abdomen: Prominent stomach bubble. IMPRESSION: 1. Extensive hazy and patchy airspace opacities throughout the right greater than left lungs which may indicate alveolar pulmonary edema versus an infectious/inflammatory process such as multifocal pneumonia. 2. Borderline cardiomegaly. 3. Tubes and lines, as above with a high lying ET tube. Consider advancement.
[2020-08-01] MEDS: propofoL 1,000mg/100ml 100 ML IV SCH ×3 (01:37→23:07)
--- NOTE | 2020-08-01 02:00 | NUR ---
NURSE NOTES: patient sedated with 7.5 ETT at 26 cm lipline on ventilator AC 26 TV 500 FiO2 100% PEEP 15. BP137/81 HR111 Sinus Tachy on monitor. Left upper arm PICC line running versed 20mg/hr, Diprivan 15mcg/kg/min, asymptomatic and left forearm PIV #20 SL. right side chest tube, Pleur-vac secured to floor at bedside. left nare NGT set to low intermittent suction for gastric decompression. Biswas catheter draining light yen urine. patient repositioned and oral care provided.
--- NOTE | 2020-08-01 02:22 | Diagnostic Imaging Report ---
EXAM: XR Chest, 1 View CLINICAL HISTORY: LINE TECHNIQUE: Frontal view of the chest. COMPARISON: Chest x-ray 07/31/2020 11:28 PM. FINDINGS: Lungs: No significant interval change in extensive airspace opacities throughout the right greater than left lungs. Pleural space: Unremarkable. No pneumothorax. Heart: Borderline cardiomegaly. Mediastinum: Unremarkable. Bones/joints: Unremarkable. Tubes, lines and devices: A left upper extremity PICC terminates at the superior cavoatrial junction. An enteric tube has been removed. A right-sided chest tube is in place with the tip in the right sub-pulmonic space. An ET tube overlies the trachea and terminates approximately 10 cm above the blaine. IMPRESSION: 1. Interval removal of an enteric tube. Stable ET tube, left upper extremity PICC and right chest tube, as above. 2. Stable extensive airspace opacities throughout the right greater than left lungs. 3. Borderline cardiomegaly..
[2020-08-01] MEDS: Vancomycin 1.25gm Premix IVPB SCH ×3 (02:55→18:03)
[2020-08-01] MEDS: Midazolam HCl 50mg/10ml vial 100 MG in NS 180 ML IV PRN ×4 (04:00→20:00)
--- NOTE | 2020-08-01 04:00 | NUR ---
NURSE NOTES: patient sedated with 7.5 ETT at 25 cm lipline on ventilator AC 26 TV 500 FiO2 100% PEEP 16. BP141/73 HR119 NSR on monitor temp 99.5F axillary. Left upper arm PICC line running versed 20mg/hr, Diprivan 15mcg/kg/min, asymptomatic and left forearm PIV #20 SL. right side chest tube, Pleur-vac secured to floor, clamp at bedside. left nare NGT set to low intermittent suction with 150ml brown gastric contents obtained. Biswas catheter draining light yen urine. patient given CHG bath, repositioned and oral care provided.
--- NOTE | 2020-08-01 04:42 | Diagnostic Imaging Report ---
EXAM: XR Chest, 1 View CLINICAL HISTORY: LINE TECHNIQUE: Frontal view of the chest. COMPARISON: Chest radiograph August 01, 2020. FINDINGS/IMPRESSION: Enteric feeding tube terminates in the stomach. Nonobstructed bowel gas pattern. Airspace opacities at the lower lung ortiz, suspicious for infiltrate. Correlate with chest radiograph August 01, 2020.
--- NOTE | 2020-08-01 06:00 | NUR ---
NURSE NOTES: patient sedated with 7.5 ETT at 25 cm lipline on ventilator AC 26 TV 500 FiO2 100% PEEP 16. BP158/84 HR126 NSR on monitor. Left upper arm PICC line running versed 20mg/hr, Diprivan 15mcg/kg/min, asymptomatic and left forearm PIV #20 SL. right side chest tube, Pleur-vac secured to floor, clamp at bedside. left nare NGT set to low intermittent suction with 150ml brown gastric contents obtained. Biswas catheter draining light yen urine. bilateral hand dependent edema noted, and lower lip scab dry intact open to air. patient repositioned and oral care provided.
--- NOTE | 2020-08-01 07:35 | NUR ---
NURSE HAND-OFF REPORT: Latest Vital Signs: Temperature 99.5 , Pulse 127 , B/P 149 /80 , Respiratory Rate 26 , O2 SAT 95 , Mechanical Ventilator, O2 Flow Rate . Vital Sign Comment: EKG Rhythm: Sinus Tachycardia Rhythm change?: Y Notified?: Y -Dr. Diana at bedside for re-intubation MD Response: Latest Bradley Fall Score: 45 Fall Risk: High Risk Safety Measures: Call light Within Reach, Bed Alarm Zone 2, Side Rails Side Rails x2, Bed position Low and Locked. Fall Precautions: Yellow Socks Yellow Gown Patient Fall Education Report given to ELIER Mayo.
--- NOTE | 2020-08-01 07:36 | NUR ---
NURSE NOTES: Pt received from ELIER Vasquez. Pt is sedated, opens eyes when called by name for approx 6 sec, RASS noted -2, bilat pupils equal and round 3mm with sluggish rxn to light; pt is unable to follow simple commands at this time; withdraws to light pain stimuli; gag reflex hypoactive. 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 1+ pitting edema noted to hands. cap refill less than 3 sec. Pt is orally intubated with a 7.5 ETT noted 25 cm at the lip with the following settings: AC 26 TV 500 FiO2 100 % Peep 16. (will f/u with Dr Price concerning ABGs). lung ortiz noted diminished upon auscultation. Pt has a pleur-evac chest tube draining serosanguineous fluid from right lateral chest area (dressing is dry and intact) - chest tube is connected to low, intermittent wall suction at 20 cm H20 - water seal chamber fluid level adjusted to 2 cm of H20 - no air leak present. left naris NGT connected to low intermittent suction draining brown/green fluid. Abdomen is round and soft w/ active bowel sounds to all quadrants. F/C noted draining yellow urine. Skin is intact. Pt has a DANIEL PICC with dry and intact dressing running versed gtt at 20 mg/hr and propofol gtt at 15 mcg/kg/min. LFA 20g IV noted saline-locked. Bed in lowest position, alarm on, side rails up x 2, call light within reach. Will continue to monitor.
--- NOTE | 2020-08-01 08:00 | NUR ---
Pt repositioned. PO care provided. Axillary temp noted 99.7 F. ice packs applied to axilla. Will continue to monitor.
--- NOTE | 2020-08-01 08:36 | General Progress Note ---
Subjective ROS Limited/Unobtainable: No Constitutional: Reports: malaise, weakness HEENT: Reports: no symptoms Cardiovascular: Reports: no symptoms Respiratory: Reports: shortness of breath Gastrointestinal/Abdominal: Reports: no symptoms Genitourinary: Reports: no symptoms Neurologic/Psychiatric: Reports: no symptoms Endocrine: Reports: no symptoms Hematologic/Lymphatic: Reports: no symptoms Allergies: Coded Allergies: No Known Allergies (Unverified , 03/08/17) All Systems: reviewed and negative except above Subjective events noted. re-intubated. trach folded over according to ER . replaced. still with leaking. tachycardic. sats seem better. s/p right sided chest tube for ptx Objective Last 24 Hour Vital Signs Date Time Temp Pulse Resp B/P (MAP) Pulse Ox O2 Delivery O2 Flow Rate FiO2 08/01/20 07:07 26 149/80 Mechanical Ventilator 100 08/01/20 07:05 127 27 100 08/01/20 07:00 128 28 149/80 (103) 95 08/01/20 07:00 26 Mechanical Ventilator 100 08/01/20 06:07 20 151/91 Mechanical Ventilator 100 08/01/20 06:00 126 26 158/84 (108) 94 08/01/20 06:00 25 Mechanical Ventilator 100 08/01/20 05:07 25 154/94 Mechanical Ventilator 100 08/01/20 05:00 25 Mechanical Ventilator 100 08/01/20 05:00 119 25 154/94 (114) 95 08/01/20 04:07 22 142/89 Mechanical Ventilator 100 08/01/20 04:00 Mechanical Ventilator Mechanical Ventilator 08/01/20 04:00 100 08/01/20 04:00 103 08/01/20 04:00 21 Mechanical Ventilator 100 08/01/20 04:00 99.5 96 22 141/73 (95) 96 08/01/20 03:07 21 141/73 Mechanical Ventilator 100 08/01/20 03:00 107 22 131/88 (102) 96 08/01/20 03:00 22 Mechanical Ventilator 100 08/01/20 02:07 24 133/78 Mechanical Ventilator 100 08/01/20 02:00 111 24 137/81 (99) 89 08/01/20 02:00 24 Mechanical Ventilator 100 08/01/20 01:52 20 137/81 Mechanical Ventilator 100 08/01/20 01:37 23 150/90 Mechanical Ventilator 100 08/01/20 01:00 124 24 172/100 (124) 88 08/01/20 00:30 112 26 100 08/01/20 00:00 Mechanical Ventilator Mechanical Ventilator 08/01/20 00:00 26 156/92 Mechanical Ventilator 100 08/01/20 00:00 26 Mechanical Ventilator 100 08/01/20 00:00 129 08/01/20 00:00 97.7 124 26 163/102 (122) 87 07/31/20 23:00 26 156/92 Mechanical Ventilator 100 07/31/20 23:00 20 Mechanical Ventilator 100 07/31/20 23:00 88 30 157/90 (112) 96 07/31/20 22:00 22 145/77 Mechanical Ventilator 100 07/31/20 22:00 22 Mechanical Ventilator 100 07/31/20 22:00 77 22 145/77 (99) 98 07/31/20 21:00 77 20 136/78 (97) 97 07/31/20 21:00 21 136/78 Mechanical Ventilator 100 07/31/20 21:00 21 Mechanical Ventilator 100 07/31/20 20:30 23 Mechanical Ventilator 100 07/31/20 20:00 75 07/31/20 20:00 Mechanical Ventilator Mechanical Ventilator 07/31/20 20:00 100 07/31/20 20:00 22 139/85 Mechanical Ventilator 100 07/31/20 20:00 22 Mechanical Ventilator 100 07/31/20 20:00 98.0 82 21 143/75 (97) 97 07/31/20 19:17 75 27 100 07/31/20 19:00 22 126/80 Mechanical Ventilator 100 07/31/20 19:00 22 Mechanical Ventilator 100 07/31/20 19:00 97.9 74 18 121/77 (92) 97 07/31/20 18:30 64 23 129/75 (93) 97 07/31/20 18:00 64 23 133/84 (100) 97 07/31/20 18:00 24 140/78 Mechanical Ventilator 100 07/31/20 18:00 24 Mechanical Ventilator 100 07/31/20 17:30 69 25 140/78 (98) 95 07/31/20 17:00 25 142/88 Mechanical Ventilator 100 07/31/20 17:00 25 Mechanical Ventilator 100 07/31/20 17:00 67 25 134/88 (103) 94 07/31/20 16:30 65 26 142/88 (106) 93 07/31/20 16:30 27 121/77 Mechanical Ventilator 15.0 100 07/31/20 16:00 100 07/31/20 16:00 63 26 139/83 (101) 93 07/31/20 16:00 26 145/78 Mechanical Ventilator 100 07/31/20 16:00 26 Mechanical Ventilator 100 07/31/20 16:00 Mechanical Ventilator Mechanical Ventilator 07/31/20 16:00 68 07/31/20 15:30 61 26 145/78 (100) 92 07/31/20 15:00 71 17 129/72 (91) 93 07/31/20 15:00 14 133/89 Mechanical Ventilator 100 07/31/20 15:00 21 Mechanical Ventilator 100 07/31/20 14:45 23 129/72 Mechanical Ventilator 100 07/31/20 14:45 23 Mechanical Ventilator 100 07/31/20 14:30 19 129/72 Mechanical Ventilator 100 07/31/20 14:30 19 Mechanical Ventilator 100 07/31/20 14:30 77 22 133/84 (100) 95 07/31/20 14:15 21 133/84 Mechanical Ventilator 100 07/31/20 14:15 21 Mechanical Ventilator 100 07/31/20 14:00 71 21 137/80 (99) 95 07/31/20 14:00 19 133/84 Mechanical Ventilator 100 07/31/20 14:00 19 100 07/31/20 13:45 19 137/80 Mechanical Ventilator 100 07/31/20 13:45 19 Mechanical Ventilator 100 07/31/20 13:30 19 137/80 Mechanical Ventilator 100 07/31/20 13:30 23 Mechanical Ventilator 100 07/31/20 13:30 83 26 140/78 (98) 95 07/31/20 13:15 23 157/90 Mechanical Ventilator 100 07/31/20 13:15 23 Mechanical Ventilator 100 07/31/20 13:05 86 28 100 07/31/20 13:00 23 157/90 Mechanical Ventilator 100 07/31/20 13:00 23 Mechanical Ventilator 100 07/31/20 13:00 83 21 163/97 (119) 87 07/31/20 12:45 23 163/97 Mechanical Ventilator 100 07/31/20 12:45 23 Mechanical Ventilator 100 07/31/20 12:30 23 163/97 Mechanical Ventilator 100 07/31/20 12:30 23 Mechanical Ventilator 100 07/31/20 12:30 97.9 07/31/20 12:15 17 149/83 Mechanical Ventilator 100 07/31/20 12:15 17 Mechanical Ventilator 100 07/31/20 12:00 84 07/31/20 12:00 100 07/31/20 12:00 Mechanical Ventilator Mechanical Ventilator 07/31/20 12:00 98.6 76 15 151/70 (97) 90 07/31/20 12:00 21 149/83 Mechanical Ventilator 100 07/31/20 12:00 21 Mechanical Ventilator 100 07/31/20 11:45 21 151/70 Mechanical Ventilator 100 07/31/20 11:45 21 Mechanical Ventilator 100 07/31/20 11:30 21 161/92 Mechanical Ventilator 100 07/31/20 11:30 21 Mechanical Ventilator 100 07/31/20 11:15 19 159/87 Mechanical Ventilator 100 07/31/20 11:15 25 Mechanical Ventilator 100 07/31/20 11:00 19 159/87 100 07/31/20 11:00 19 Mechanical Ventilator 100 07/31/20 11:00 73 16 159/87 (111) 87 07/31/20 10:00 19 167/95 Mechanical Ventilator 100 07/31/20 10:00 19 Mechanical Ventilator 100 07/31/20 10:00 108 20 167/95 (119) 83 07/31/20 09:30 102 20 180/82 (114) 84 07/31/20 09:00 81 14 157/88 (111) 86 07/31/20 09:00 16 157/88 Mechanical Ventilator 100 07/31/20 09:00 16 Mechanical Ventilator 100 Intake and Output 07/31/20 08/01/20 19:00 07:00 Intake Total 836.67 ml 1181.820 ml Output Total 480 ml 735 ml Balance 356.67 ml 446.820 ml IV Total 806.67 ml 1121.820 ml Tube Feeding 30 ml 30 ml Other 30 ml Output Urine Total 480 ml 580 ml Gastric Drainage Total 150 ml Chest Tube Drainage Total 5 ml Laboratory Tests 07/31/20 10:21: Arterial Blood pH 7.394, Arterial Blood Partial Pressure CO2 62.3*H, Arterial Blood Partial Pressure O2 [Pending], Arterial Blood HCO3 37.2H, Arterial Blood Oxygen Saturation 80.7*L, Arterial Blood Base Excess 9.9*H, Jacob Test Positive 07/31/20 23:03: POC Whole Blood Glucose 156H 08/01/20 01:30: Triglycerides Level 274H 08/01/20 05:40: POC Whole Blood Glucose 110H Height (Feet): 5 Height (Inches): 6.00 Weight (Pounds): 209 Objective deferred Assessment/Plan Problem List: (1) Coronavirus infection ICD Codes: B34.2 - Coronavirus infection, unspecified SNOMED: [id number] Status: not improved Assessment/Plan: cont vent support pulm follow up ?wean peep follow up abg check kub- per ER abd distended on re-intubated ngt feeds on hold for now- LIS cont lovenox steroids resp rx ?trach bowel regime insulin coverage Rolando Cherry MD Aug 01, 2020 08:36
[2020-08-01] MEDS: Levemir Flexpen SUBQ SCH ×2 (09:00→21:00)
[2020-08-01] MEDS ORDERED: Enoxaparin 60mg Inj SUBQ SCH (09:40)
[2020-08-01] MEDS: Vitamin B Complex Tab NG SCH (09:57)
[2020-08-01] MEDS: Docusate 100mg/10ml Liq NG SCH ×2 (09:58→21:30)
[2020-08-01] MEDS: Pantoprazole Inj IVP SCH (09:58)
[2020-08-01] MEDS: Solu-MEDROL 40mg Inj IVP SCH ×2 (09:58→21:30)
--- NOTE | 2020-08-01 10:00 | NUR ---
NURSE NOTES: Pt repositioned. No acute distress noted.
[2020-08-01] MEDS: Ascorbic Acid 500mg tab NG SCH ×2 (10:01→21:30)
--- NOTE | 2020-08-01 11:00 | NUR ---
NURSE NOTES: Pt seen by Dr Butler.
--- NOTE | 2020-08-01 11:39 | Consultation ---
History of Present Illness General Date patient seen: Aug 01, 2020 Chief Complaint: Dyspnea/Respdistress Reason for Consultation: chest tube Present Illness HPI 30M covid + critically ill in icu intubated on vent support recent right chest tube placed for ptx then had respiratory ett issues requiring reintubation. surgery called to evaluate and assist with care. chest tube management. ett eval and management. vent Allergies: Coded Allergies: No Known Allergies (Unverified , 03/08/17) Medication History Scheduled Bacitracin Zinc* (Bacitracin Zinc*), 1 APPLIC TOPIC THREE TIMES A DAY Cephalexin* (Keflex*), 500 MG ORAL Q6H Scheduled PRN Ibuprofen (Motrin), 600 MG ORAL Q8H PRN for For Pain Miscellaneous Medications [Albuterol inhaler], (Reported) Patient History Limited by: medical condition History Provided By: Medical Record, PMD Healthcare decision maker Resuscitation status Advanced Directive on File Past Medical/Surgical History Past Medical/Surgical History: (1) Laceration (2) Bradycardia (3) Respiratory failure (4) Coronavirus infection (5) Diabetes (6) Hypercapnia (7) Hypoxia (8) Asthma (9) HTN (hypertension) (10) Obesity (BMI 30-39.9) (11) Acute respiratory distress syndrome (ARDS) due to 2019-nCoV (12) Acute hypoxemic respiratory failure due to COVID-19 Review of Systems All Other Systems: negative except mentioned in HPI ROS Narrative unable to obtain given medical condition Physical Exam General Appearance: moderate distress, overweight Lines, tubes and drains: PICC, endotracheal tube, aleman cath, other HEENT: mucous membranes moist, other Neck: normal inspection Respiratory/Chest: decreased breath sounds, on vent Cardiovascular/Chest: tachycardia Abdomen: soft, no organomegaly, no mass Extremities: normal inspection Skin Exam: warm/dry Neurologic: unresponsiveness Last 24 Hour Vital Signs Date Time Temp Pulse Resp B/P (MAP) Pulse Ox O2 Delivery O2 Flow Rate FiO2 08/01/20 11:15 137 29 100 08/01/20 11:00 30 164/87 Mechanical Ventilator 100 08/01/20 10:00 30 Mechanical Ventilator 95 08/01/20 08:00 145 08/01/20 07:07 26 149/80 Mechanical Ventilator 100 08/01/20 07:05 127 27 100 08/01/20 07:00 128 28 149/80 (103) 95 08/01/20 07:00 26 Mechanical Ventilator 100 08/01/20 06:07 20 151/91 Mechanical Ventilator 100 08/01/20 06:00 126 26 158/84 (108) 94 08/01/20 06:00 25 Mechanical Ventilator 100 08/01/20 05:07 25 154/94 Mechanical Ventilator 100 08/01/20 05:00 25 Mechanical Ventilator 100 08/01/20 05:00 119 25 154/94 (114) 95 08/01/20 04:07 22 142/89 Mechanical Ventilator 100 08/01/20 04:00 Mechanical Ventilator Mechanical Ventilator 08/01/20 04:00 100 08/01/20 04:00 103 08/01/20 04:00 21 Mechanical Ventilator 100 08/01/20 04:00 99.5 96 22 141/73 (95) 96 08/01/20 03:07 21 141/73 Mechanical Ventilator 100 08/01/20 03:00 107 22 131/88 (102) 96 08/01/20 03:00 22 Mechanical Ventilator 100 08/01/20 02:07 24 133/78 Mechanical Ventilator 100 08/01/20 02:00 111 24 137/81 (99) 89 08/01/20 02:00 24 Mechanical Ventilator 100 08/01/20 01:52 20 137/81 Mechanical Ventilator 100 08/01/20 01:37 23 150/90 Mechanical Ventilator 100 08/01/20 01:00 124 24 172/100 (124) 88 08/01/20 00:30 112 26 100 08/01/20 00:00 Mechanical Ventilator Mechanical Ventilator 08/01/20 00:00 26 156/92 Mechanical Ventilator 100 08/01/20 00:00 26 Mechanical Ventilator 100 08/01/20 00:00 129 08/01/20 00:00 97.7 124 26 163/102 (122) 87 07/31/20 23:00 26 156/92 Mechanical Ventilator 100 07/31/20 23:00 20 Mechanical Ventilator 100 07/31/20 23:00 88 30 157/90 (112) 96 07/31/20 22:00 22 145/77 Mechanical Ventilator 100 07/31/20 22:00 22 Mechanical Ventilator 100 07/31/20 22:00 77 22 145/77 (99) 98 07/31/20 21:00 77 20 136/78 (97) 97 07/31/20 21:00 21 136/78 Mechanical Ventilator 100 07/31/20 21:00 21 Mechanical Ventilator 100 07/31/20 20:30 23 Mechanical Ventilator 100 07/31/20 20:00 75 07/31/20 20:00 Mechanical Ventilator Mechanical Ventilator 07/31/20 20:00 100 07/31/20 20:00 22 139/85 Mechanical Ventilator 100 07/31/20 20:00 22 Mechanical Ventilator 100 07/31/20 20:00 98.0 82 21 143/75 (97) 97 07/31/20 19:17 75 27 100 07/31/20 19:00 22 126/80 Mechanical Ventilator 100 07/31/20 19:00 22 Mechanical Ventilator 100 07/31/20 19:00 97.9 74 18 121/77 (92) 97 07/31/20 18:30 64 23 129/75 (93) 97 07/31/20 18:00 64 23 133/84 (100) 97 07/31/20 18:00 24 140/78 Mechanical Ventilator 100 07/31/20 18:00 24 Mechanical Ventilator 100 07/31/20 17:30 69 25 140/78 (98) 95 07/31/20 17:00 25 142/88 Mechanical Ventilator 100 07/31/20 17:00 25 Mechanical Ventilator 100 07/31/20 17:00 67 25 134/88 (103) 94 07/31/20 16:30 65 26 142/88 (106) 93 07/31/20 16:30 27 121/77 Mechanical Ventilator 15.0 100 07/31/20 16:00 100 07/31/20 16:00 63 26 139/83 (101) 93 07/31/20 16:00 26 145/78 Mechanical Ventilator 100 07/31/20 16:00 26 Mechanical Ventilator 100 07/31/20 16:00 Mechanical Ventilator Mechanical Ventilator 07/31/20 16:00 68 07/31/20 15:30 61 26 145/78 (100) 92 07/31/20 15:00 71 17 129/72 (91) 93 07/31/20 15:00 14 133/89 Mechanical Ventilator 100 07/31/20 15:00 21 Mechanical Ventilator 100 07/31/20 14:45 23 129/72 Mechanical Ventilator 100 07/31/20 14:45 23 Mechanical Ventilator 100 07/31/20 14:30 19 129/72 Mechanical Ventilator 100 07/31/20 14:30 19 Mechanical Ventilator 100 07/31/20 14:30 77 22 133/84 (100) 95 07/31/20 14:15 21 133/84 Mechanical Ventilator 100 07/31/20 14:15 21 Mechanical Ventilator 100 07/31/20 14:00 71 21 137/80 (99) 95 07/31/20 14:00 19 133/84 Mechanical Ventilator 100 07/31/20 14:00 19 100 07/31/20 13:45 19 137/80 Mechanical Ventilator 100 07/31/20 13:45 19 Mechanical Ventilator 100 07/31/20 13:30 19 137/80 Mechanical Ventilator 100 07/31/20 13:30 23 Mechanical Ventilator 100 07/31/20 13:30 83 26 140/78 (98) 95 07/31/20 13:15 23 157/90 Mechanical Ventilator 100 07/31/20 13:15 23 Mechanical Ventilator 100 07/31/20 13:05 86 28 100 07/31/20 13:00 23 157/90 Mechanical Ventilator 100 07/31/20 13:00 23 Mechanical Ventilator 100 07/31/20 13:00 83 21 163/97 (119) 87 07/31/20 12:45 23 163/97 Mechanical Ventilator 100 07/31/20 12:45 23 Mechanical Ventilator 100 07/31/20 12:30 23 163/97 Mechanical Ventilator 100 07/31/20 12:30 23 Mechanical Ventilator 100 07/31/20 12:30 97.9 07/31/20 12:15 17 149/83 Mechanical Ventilator 100 07/31/20 12:15 17 Mechanical Ventilator 100 07/31/20 12:00 84 07/31/20 12:00 100 07/31/20 12:00 Mechanical Ventilator Mechanical Ventilator 07/31/20 12:00 98.6 76 15 151/70 (97) 90 07/31/20 12:00 21 149/83 Mechanical Ventilator 100 07/31/20 12:00 21 Mechanical Ventilator 100 07/31/20 11:45 21 151/70 Mechanical Ventilator 100 07/31/20 11:45 21 Mechanical Ventilator 100 Intake and Output 07/31/20 08/01/20 19:00 07:00 Intake Total 836.67 ml 1181.820 ml Output Total 480 ml 735 ml Balance 356.67 ml 446.820 ml IV Total 806.67 ml 1121.820 ml Tube Feeding 30 ml 30 ml Other 30 ml Output Urine Total 480 ml 580 ml Gastric Drainage Total 150 ml Chest Tube Drainage Total 5 ml Laboratory Tests Test 07/31/20 23:03 08/01/20 01:30 08/01/20 05:40 POC Whole Blood Glucose 156 MG/DL (74-106) H 110 MG/DL (74-106) H Triglycerides Level 274 MG/DL (30-150) H Height (Feet): 5 Height (Inches): 6.00 Weight (Pounds): 209 Medications Current Medications Medications (Trade) Dose Ordered Sig/Milagro Route PRN Reason Start Time Stop Time Status Last Admin Dose Admin Acetaminophen (Tylenol) 650 mg Q4H PRN RECTAL Mild Pain (Pain Scale 1-3) 07/24/20 18:15 08/23/20 18:14 07/25/20 11:49 Acetaminophen (Tylenol) 650 mg Q6H PRN NG Mild Pain (Pain Scale 1-3) 07/26/20 08:30 08/25/20 08:29 07/29/20 11:58 Acetaminophen (Tylenol) 650 mg Q6H PRN NG Temp >100.5 07/26/20 08:30 08/25/20 08:29 07/28/20 11:54 Albuterol/ Ipratropium (Combivent Respimat) 2 puff Q2H PRN INH Shortness of Breath 07/09/20 21:45 08/08/20 21:44 07/19/20 09:17 Ascorbic Acid (Vitamin C) 500 mg EVERY 12 HOURS NG 07/26/20 21:00 08/10/20 08:59 08/01/20 10:01 Ceftriaxone Sodium 1 gm/ Dextrose 55 ml @ 110 mls/hr Q24H IVPB 07/25/20 13:00 08/01/20 12:59 07/31/20 13:55 Chlorhexidine Gluconate (Marycarmen-Hex 2%) 1 applic DAILY@1999 TOPIC 07/20/20 20:00 10/18/20 19:59 07/31/20 20:27 Dextrose (Dextrose 50%) 25 ml Q30M PRN IV Hypoglycemia 07/23/20 13:15 10/21/20 13:14 Dextrose (Dextrose 50%) 50 ml Q30M PRN IV Hypoglycemia 07/23/20 13:15 10/21/20 13:14 Dextrose/Sodium Chloride 1,000 ml @ 60 mls/hr [id number] PRN IV WHILE PRONING ONLY 07/24/20 17:45 08/23/20 17:44 07/24/20 18:01 Docusate Sodium (Colace) 100 mg EVERY 12 HOURS NG 07/27/20 21:00 08/26/20 20:59 08/01/20 09:58 Enoxaparin Sodium (Lovenox) 40 mg Q12HR SUBQ 08/01/20 09:40 08/01/20 12:00 08/01/20 09:59 Enoxaparin Sodium (Lovenox) 40 mg Q12HR SUBQ 08/01/20 21:00 10/30/20 20:59 Hydromorphone HCl (Dilaudid) 1 mg Q4H PRN IVP For Pain 4-10 07/28/20 08:30 08/04/20 08:29 07/31/20 12:00 Insulin Aspart (NovoLOG) EVERY 6 HOURS SUBQ 07/28/20 00:00 10/21/20 15:59 08/01/20 00:16 Insulin Detemir (Levemir) 26 units EVERY 12 HOURS SUBQ 07/26/20 09:00 10/20/20 08:59 07/31/20 21:00 Methylprednisolone Sodium Succinate (Solu-MEDROL) 40 mg EVERY 12 HOURS IVP 07/25/20 12:30 10/23/20 12:29 08/01/20 09:58 Midazolam HCl 100 mg/Sodium Chloride 200 ml @ 2 mls/hr Q24H PRN IV SEDATION 08/01/20 10:00 08/03/20 09:59 08/01/20 10:00 Ondansetron HCl (Zofran) 4 mg Q6H PRN IVP Nausea & Vomiting 07/09/20 21:45 08/08/20 21:44 Pantoprazole (Protonix) 40 mg DAILY IVP 07/25/20 09:00 08/24/20 08:59 08/01/20 09:58 Promethazine HCl/ Codeine (Phenergan with Codeine) 5 ml Q4H PRN ORAL For Cough 07/11/20 15:15 08/10/20 15:14 07/26/20 18:26 Propofol 100 ml @ 2.844 mls/ hr Q12H IV 08/01/20 01:00 08/03/20 00:59 08/01/20 11:00 Vancomycin HCl 250 ml @ 166.667 mls/hr Q8H IVPB 07/27/20 11:00 08/03/20 23:59 08/01/20 11:06 Vancomycin HCl (Vanco pharmacy to dose) 1 ea DAILY PRN MISC Per rx protocol 07/26/20 09:00 08/25/20 08:59 Vitamin B Complex (Vitamin B Complex) 1 tab DAILY NG 07/24/20 09:00 10/09/20 08:59 08/01/20 09:57 Vitamin D (Vitamin D) 1,000 unit BEDTIME GT 07/27/20 21:00 08/13/20 09:29 07/31/20 21:00 Assessment/Plan Problem List: (1) Pneumothorax Assessment & Plan: 30M covid on vent peep 16 fi02 100 right ptx s/p right chest tube ett complication replaced 07/01 chest tube vac replaced this AM as well given malfunction high risk low tv cxr noted ill appearing tube and lines checked will need to monitor closely unable to wean vent at this time cont current care plan ICD Codes: J93.9 - Pneumothorax, unspecified SNOMED: 36318633 (2) Respiratory failure ICD Codes: J96.90 - Respiratory failure, unspecified, unspecified whether with hypoxia or hypercapnia SNOMED: 215836714 (3) Coronavirus infection ICD Codes: B34.2 - Coronavirus infection, unspecified SNOMED: 065100807 (4) Diabetes ICD Codes: E11.9 - Type 2 diabetes mellitus without complications SNOMED: 39569116, 553333294 (5) Hypercapnia ICD Codes: R06.89 - Other abnormalities of breathing SNOMED: 66167994, 217968865 (6) Hypoxia ICD Codes: R09.02 - Hypoxemia SNOMED: 721198040 (7) Asthma ICD Codes: J45.909 - Unspecified asthma, uncomplicated SNOMED: 911449634, 434470827 (8) HTN (hypertension) ICD Codes: I10 - Essential (primary) hypertension SNOMED: 65793050, 581874409 (9) Obesity (BMI 30-39.9) ICD Codes: E66.9 - Obesity, unspecified; J96.01 - Acute respiratory failure with hypoxia SNOMED: 022064782, 463687752 (10) Acute respiratory distress syndrome (ARDS) due to 2019-nCoV ICD Codes: U07.1 - COVID-19; J80 - Acute respiratory distress syndrome SNOMED: 501157271579563448 (11) Acute hypoxemic respiratory failure due to COVID-19 ICD Codes: U07.1 - COVID-19; J96.01 - Acute respiratory failure with hypoxia SNOMED: 130220774 (12) Bradycardia ICD Codes: R00.1 - Bradycardia, unspecified SNOMED: 37558404 (13) Laceration SNOMED: 915693652 Mulugeta Butler Aug 01, 2020 11:39
--- NOTE | 2020-08-01 11:46 | Diagnostic Imaging Report ---
Indication: Abdominal distention Technique: Supine view of the abdomen Comparison: 07/26/2020 Findings: Artifact from mattress pad slightly limits evaluation. Stable satisfactory position of orogastric tube. There is a right chest tube in place. The visualized lung bases demonstrate extensive infiltrates which appear unchanged. There is a Biswas catheter in place. The bowel gas pattern is unremarkable. Impression: No acute abnormality. Findings as noted
--- NOTE | 2020-08-01 11:53 | NUR ---
NURSE NOTES: ABG results relayed to Dr Price - no new vent settings ordered.
--- NOTE | 2020-08-01 12:00 | NUR ---
NURSE NOTES: Pt repositioned. PO care provided. Axillary temp now noted 99 F.
--- NOTE | 2020-08-01 12:50 | NUR ---
RADIOLOGY DEPT., ABDOMEN X-RAY DONE.-P.DYE
--- NOTE | 2020-08-01 12:53 | NUR ---
RD ASSESSMENT & RECOMMENDATIONS SEE CARE ACTIVITY FOR COMPLETE ASSESSMENT DAILY ESTIMATED NEEDS: Needs based on Critical care 72kg abw 22-28 kcals/kg 1787-9840 total kcals 1.2-2 g protein/kg 86-144 g total protein 25-30 mL/kg 1272-0027 total fluid mLs NUTRITION DIAGNOSIS: * Swallowing difficulty R/T respiratory failure as evidenced by pt now orally intubated, NPO, now w/ NGT to LIS. * Altered nutrition related lab values r/t hyperglycemia as evidenced by BG POC glu in the 300's-> 200's, pt on Solumedrol CURRENT TF: Vital 1.2 @ 30ml/hr-HELD, NGT TO LIS ENTERAL NUTRITION RECOMMENDATIONS: Vital 1.2 for critical care and carb control @ goal of 55ml/hr x24 hrs to provide 1320ml, 1584kcal, 99g prot, 1071ml free water - When medically stable for feeds, initiate Vital 1.2 for critical care and carb control. - Start @20ml/hr for 6 hrs - Advance as tolerated 10ml/hr q4-6 hrs to goal - Flush per , HOB over 30 degrees ADDITIONAL RECOMMENDATIONS: 1) Rec to check HgA1C for eval 2) Insulin regimen for improved BG- now on levemir + niss 3) Monitor resp status, currently on high flow O2 w/ good po intake Now intubated (07/20), TF recs as above when medically appropriate 4) Monitor Diprivan rate for need to adjust TF goal rate 5) Monitor BM regularity- last recorded bm 07/20 .
--- NOTE | 2020-08-01 14:00 | NUR ---
NURSE NOTES: Pt repositioned. No distress noted.
--- NOTE | 2020-08-01 15:45 | NUR ---
[employer] SI: Respiratory Failure, Covid-PNA, ETT/Vent Support, T 99.5 (Ax), HR 137, RR 29, BP 164/87 WBC 11.1, AC 26, TV 500, PEEP 16, FiO2 100%, O2 Sat 96% IS: Midazolam IV Solu-Medrol IV Lasix IV Vancomycin IV KCL IVP Lovenox SQ Ceftriaxone IVPB Protonix IV ICU Status
--- NOTE | 2020-08-01 16:00 | NUR ---
NURSE NOTES: Pt repositioned. PO care provided. Afebrile with ice packs on. Seen by Dr Dilshad Wing. No distress noted at this time.
--- NOTE | 2020-08-01 16:52 | NUR ---
NURSE NOTES: ETT noted 22 cm at the lip per Jacob, RT. STAT CXR ordered.
--- NOTE | 2020-08-01 17:00 | Pulmonology Progress Note ---
Subjective ROS Limited/Unobtainable: Yes Constitutional: Reports: fever, other - Rn=219 Gastrointestinal/Abdominal: Denies: nausea, vomiting, diarrhea Musculoskeletal: Denies: pain Allergies: Coded Allergies: No Known Allergies (Unverified , 03/08/17) All Systems: reviewed and negative except above Subjective not improved on high oxygen on vent Objective Last 24 Hour Vital Signs Date Time Temp Pulse Resp B/P (MAP) Pulse Ox O2 Delivery O2 Flow Rate FiO2 08/01/20 16:07 32 145/84 Mechanical Ventilator 100 08/01/20 16:00 100 08/01/20 16:00 98.7 128 32 145/84 (104) 96 08/01/20 16:00 Mechanical Ventilator 08/01/20 16:00 32 Mechanical Ventilator 100 08/01/20 16:00 126 08/01/20 15:23 124 31 100 08/01/20 15:07 31 150/81 Mechanical Ventilator 100 08/01/20 15:00 32 Mechanical Ventilator 100 08/01/20 15:00 122 31 150/81 (104) 94 08/01/20 14:07 32 155/84 Mechanical Ventilator 100 08/01/20 14:00 128 32 155/84 (107) 97 08/01/20 14:00 32 Mechanical Ventilator 100 08/01/20 13:07 30 149/102 Mechanical Ventilator 100 08/01/20 13:00 30 Mechanical Ventilator 100 08/01/20 13:00 126 26 149/102 (118) 96 08/01/20 12:07 28 163/94 Mechanical Ventilator 100 08/01/20 12:00 Mechanical Ventilator 08/01/20 12:00 99.0 130 28 168/90 (116) 97 08/01/20 12:00 100 08/01/20 12:00 28 Mechanical Ventilator 100 08/01/20 12:00 135 08/01/20 11:15 137 29 100 08/01/20 11:07 29 156/93 Mechanical Ventilator 100 08/01/20 11:00 30 Mechanical Ventilator 100 08/01/20 11:00 30 164/87 Mechanical Ventilator 100 08/01/20 11:00 141 31 141/110 (120) 90 08/01/20 10:07 32 162/90 Mechanical Ventilator 100 08/01/20 10:00 30 Mechanical Ventilator 95 08/01/20 10:00 32 Mechanical Ventilator 100 08/01/20 10:00 145 31 165/88 (113) 92 08/01/20 09:07 30 165/87 Mechanical Ventilator 100 08/01/20 09:00 140 31 166/86 (112) 98 08/01/20 09:00 30 Mechanical Ventilator 100 08/01/20 08:07 29 169/88 Mechanical Ventilator 100 08/01/20 08:00 145 08/01/20 08:00 99.7 133 28 162/92 (115) 98 08/01/20 08:00 29 Mechanical Ventilator 100 08/01/20 08:00 Mechanical Ventilator 08/01/20 08:00 100 08/01/20 07:07 26 149/80 Mechanical Ventilator 100 08/01/20 07:05 127 27 100 08/01/20 07:00 128 28 149/80 (103) 95 08/01/20 07:00 26 Mechanical Ventilator 100 08/01/20 06:07 20 151/91 Mechanical Ventilator 100 08/01/20 06:00 126 26 158/84 (108) 94 08/01/20 06:00 25 Mechanical Ventilator 100 08/01/20 05:07 25 154/94 Mechanical Ventilator 100 08/01/20 05:00 25 Mechanical Ventilator 100 08/01/20 05:00 119 25 154/94 (114) 95 08/01/20 04:07 22 142/89 Mechanical Ventilator 100 08/01/20 04:00 Mechanical Ventilator Mechanical Ventilator 08/01/20 04:00 100 08/01/20 04:00 103 08/01/20 04:00 21 Mechanical Ventilator 100 08/01/20 04:00 99.5 96 22 141/73 (95) 96 08/01/20 03:07 21 141/73 Mechanical Ventilator 100 08/01/20 03:00 107 22 131/88 (102) 96 08/01/20 03:00 22 Mechanical Ventilator 100 08/01/20 02:07 24 133/78 Mechanical Ventilator 100 08/01/20 02:00 111 24 137/81 (99) 89 08/01/20 02:00 24 Mechanical Ventilator 100 08/01/20 01:52 20 137/81 Mechanical Ventilator 100 08/01/20 01:37 23 150/90 Mechanical Ventilator 100 08/01/20 01:00 124 24 172/100 (124) 88 08/01/20 00:30 112 26 100 08/01/20 00:00 Mechanical Ventilator Mechanical Ventilator 08/01/20 00:00 26 156/92 Mechanical Ventilator 100 08/01/20 00:00 26 Mechanical Ventilator 100 08/01/20 00:00 129 08/01/20 00:00 97.7 124 26 163/102 (122) 87 07/31/20 23:00 26 156/92 Mechanical Ventilator 100 07/31/20 23:00 20 Mechanical Ventilator 100 07/31/20 23:00 88 30 157/90 (112) 96 07/31/20 22:00 22 145/77 Mechanical Ventilator 100 07/31/20 22:00 22 Mechanical Ventilator 100 07/31/20 22:00 77 22 145/77 (99) 98 07/31/20 21:00 77 20 136/78 (97) 97 07/31/20 21:00 21 136/78 Mechanical Ventilator 100 07/31/20 21:00 21 Mechanical Ventilator 100 07/31/20 20:30 23 Mechanical Ventilator 100 07/31/20 20:00 75 07/31/20 20:00 Mechanical Ventilator Mechanical Ventilator 07/31/20 20:00 100 07/31/20 20:00 22 139/85 Mechanical Ventilator 100 07/31/20 20:00 22 Mechanical Ventilator 100 07/31/20 20:00 98.0 82 21 143/75 (97) 97 07/31/20 19:17 75 27 100 07/31/20 19:00 22 126/80 Mechanical Ventilator 100 07/31/20 19:00 22 Mechanical Ventilator 100 07/31/20 19:00 97.9 74 18 121/77 (92) 97 07/31/20 18:30 64 23 129/75 (93) 97 07/31/20 18:00 64 23 133/84 (100) 97 07/31/20 18:00 24 140/78 Mechanical Ventilator 100 07/31/20 18:00 24 Mechanical Ventilator 100 07/31/20 17:30 69 25 140/78 (98) 95 Intake and Output 07/31/20 08/01/20 19:00 07:00 Intake Total 836.67 ml 1181.820 ml Output Total 480 ml 735 ml Balance 356.67 ml 446.820 ml IV Total 806.67 ml 1121.820 ml Tube Feeding 30 ml 30 ml Other 30 ml Output Urine Total 480 ml 580 ml Gastric Drainage Total 150 ml Chest Tube Drainage Total 5 ml Objective deferred due to COVID Laboratory Tests 07/31/20 23:03: POC Whole Blood Glucose 156H 08/01/20 01:30: Triglycerides Level 274H 08/01/20 05:40: POC Whole Blood Glucose 110H 08/01/20 11:05: Arterial Blood pH 7.425, Arterial Blood Partial Pressure CO2 61.5*H, Arterial Blood Partial Pressure O2 , Arterial Blood HCO3 39.3H, Arterial Blood Oxygen Saturation 87.6*L, Arterial Blood Base Excess 12.2*H, Jacob Test Positive Current Medications Medications (Trade) Dose Ordered Sig/Milagro Route PRN Reason Start Time Stop Time Status Last Admin Dose Admin Acetaminophen (Tylenol) 650 mg Q4H PRN RECTAL Mild Pain (Pain Scale 1-3) 07/24/20 18:15 08/23/20 18:14 07/25/20 11:49 Acetaminophen (Tylenol) 650 mg Q6H PRN NG Mild Pain (Pain Scale 1-3) 07/26/20 08:30 08/25/20 08:29 07/29/20 11:58 Acetaminophen (Tylenol) 650 mg Q6H PRN NG Temp >100.5 07/26/20 08:30 08/25/20 08:29 07/28/20 11:54 Albuterol/ Ipratropium (Combivent Respimat) 2 puff Q2H PRN INH Shortness of Breath 07/09/20 21:45 08/08/20 21:44 07/19/20 09:17 Ascorbic Acid (Vitamin C) 500 mg EVERY 12 HOURS NG 07/26/20 21:00 08/10/20 08:59 08/01/20 10:01 Ceftriaxone Sodium 1 gm/ Dextrose 55 ml @ 110 mls/hr Q24H IVPB 08/01/20 17:00 08/08/20 16:59 UNV Chlorhexidine Gluconate (Marycarmen-Hex 2%) 1 applic DAILY@2000 TOPIC 07/20/20 20:00 10/18/20 19:59 07/31/20 20:27 Dextrose (Dextrose 50%) 25 ml Q30M PRN IV Hypoglycemia 07/23/20 13:15 10/21/20 13:14 Dextrose (Dextrose 50%) 50 ml Q30M PRN IV Hypoglycemia 07/23/20 13:15 10/21/20 13:14 Dextrose/Sodium Chloride 1,000 ml @ 60 mls/hr [id number] PRN IV WHILE PRONING ONLY 07/24/20 17:45 08/23/20 17:44 07/24/20 18:01 Docusate Sodium (Colace) 100 mg EVERY 12 HOURS NG 07/27/20 21:00 08/26/20 20:59 08/01/20 09:58 Enoxaparin Sodium (Lovenox) 40 mg Q12HR SUBQ 08/01/20 21:00 10/30/20 20:59 Hydromorphone HCl (Dilaudid) 1 mg Q4H PRN IVP For Pain 4-10 07/28/20 08:30 08/04/20 08:29 07/31/20 12:00 Insulin Aspart (NovoLOG) EVERY 6 HOURS SUBQ 07/28/20 00:00 10/21/20 15:59 08/01/20 00:16 Insulin Detemir (Levemir) 26 units EVERY 12 HOURS SUBQ 07/26/20 09:00 10/20/20 08:59 07/31/20 21:00 Methylprednisolone Sodium Succinate (Solu-MEDROL) 40 mg EVERY 12 HOURS IVP 07/25/20 12:30 10/23/20 12:29 08/01/20 09:58 Midazolam HCl 100 mg/Sodium Chloride 200 ml @ 2 mls/hr Q24H PRN IV SEDATION 08/01/20 10:00 08/03/20 09:59 08/01/20 15:00 Ondansetron HCl (Zofran) 4 mg Q6H PRN IVP Nausea & Vomiting 07/09/20 21:45 08/08/20 21:44 Pantoprazole (Protonix) 40 mg DAILY IVP 07/25/20 09:00 08/24/20 08:59 08/01/20 09:58 Promethazine HCl/ Codeine (Phenergan with Codeine) 5 ml Q4H PRN ORAL For Cough 07/11/20 15:15 08/10/20 15:14 07/26/20 18:26 Propofol 100 ml @ 2.844 mls/ hr Q12H IV 08/01/20 01:00 08/03/20 00:59 08/01/20 11:00 Vancomycin HCl 250 ml @ 166.667 mls/hr Q8H IVPB 07/27/20 11:00 08/03/20 23:59 08/01/20 11:06 Vancomycin HCl (Vanco pharmacy to dose) 1 ea DAILY PRN MISC Per rx protocol 07/26/20 09:00 08/25/20 08:59 Vitamin B Complex (Vitamin B Complex) 1 tab DAILY NG 07/24/20 09:00 10/09/20 08:59 08/01/20 09:57 Vitamin D (Vitamin D) 1,000 unit BEDTIME GT 07/27/20 21:00 08/13/20 09:29 07/31/20 21:00 Assessment/Plan Assessment/Plan acute hypoxemic respiratory failure COVID pneumonia Asthma elevated liver enzymes DNR ARDS with fibrosing phase PLAN borderline oxygen saturation/ not improved monitor imaging monitor ABG respiratory care ID noted DVT prophylaxis prognosis appears poor for meaningful recovery monitor respiratory status for change medications/laboratory data/nursing notes/ICU care reviewed in detail note reviewed and edited care discussed with RN and RT ICU time spent >40 minutes Elfego Price MD Aug 01, 2020 17:00
--- NOTE | 2020-08-01 17:10 | NUR ---
NURSE NOTES: ETT advanced to 24 cm per Jacob, RT. Awaiting radiology for STAT CXR.
--- NOTE | 2020-08-01 18:00 | NUR ---
NURSE NOTES: Pt repositioned. No distress noted.
[2020-08-01] MEDS: cefTRIAXone 1 GM in D5W 55 ML IVPB SCH (18:05)
--- NOTE | 2020-08-01 18:17 | Diagnostic Imaging Report ---
EXAM: XR Chest, 1 View CLINICAL HISTORY: S/P INTUB TECHNIQUE: Frontal view of the chest. COMPARISON: 08/01/2020. FINDINGS: Lungs: There is diffuse patchy airspace disease throughout both lungs compatible with atypical pneumonia such as Alma-19 pneumonia. Pleural space: Unremarkable. No pneumothorax. Heart: Unremarkable. No cardiomegaly. Mediastinum: Unremarkable. Bones/joints: Unremarkable. Tubes, lines and devices: NG tube is noted in place with its tip below the diaphragm. Left-sided PICC line catheter is noted in place with its tip at the proximal superior vena cava. Chest tube is noted in place at the right lung base. IMPRESSION: 1. NG tube is noted in place with its tip below the diaphragm. 2. Findings suggestive of atypical pneumonia such as Alma-19 pneumonia. 3. Chest tube is noted in place at the right lung base appeared 4. Left-sided PICC line catheter is noted in place.
--- NOTE | 2020-08-01 18:39 | NUR ---
NURSE NOTES: Spoke with Wood from radiology department concerning STAT CXR report - no mention of ETT tube on report- Wood states he will contact radiologist and clarify report. Pt is currently stable receiving tidal volumes in the 400s with spO2 94 %. Awaiting CXR result clarification from radiology dept.
--- NOTE | 2020-08-01 19:30 | NUR ---
NURSE NOTES: Report received from ELIER Mayo. Pt is sedated, opens eyes, RASS noted -2, pt, unable to follow simple commands at this time Pt is ST to cardiac rehab nurse with 2+ radial and dorsalis pedis pulses. Pt is orally intubated with a 7.5 ETT noted 25 cm at the lip with the following settings: AC 26 TV 500 FiO2 100 % Peep 16. Lung ortiz noted diminished upon auscultation. Pt has a pleur-evac chest tube draining fluid from right lateral chest area. Chest tube is connected to low, intermittent wall suction at 20 cm H20, intact Left naris NGT connected to low intermittent suction draining brown/green fluid. Abdomen is round and soft w/ active bowel sounds to all quadrants. Biswas noted draining yellow urine. Skin is intact. Pt has a DANIEL PICC with dry and intact dressing running versed gtt at 20 mg/hr and propofol gtt at 15 mcg/kg/min. LFA 20G IV noted saline-locked. Safety measures observed and no acute distress noted. Will continue to monitor.
--- NOTE | 2020-08-01 19:42 | NUR ---
NURSE HAND-OFF REPORT: Latest Vital Signs: Temperature 98.7 , Pulse 115 , B/P 172 /66 , Respiratory Rate 30 , O2 SAT 92 , Mechanical Ventilator, FiO2 100 % . EKG Rhythm: Sinus Tachycardia Rhythm change?: N MD Notified?: Y -Dr. Diana at bedside for re-intubation MD Response: Latest Bradley Fall Score: 50 Fall Risk: High Risk Safety Measures: Call light Within Reach, Bed Alarm Zone 2, Side Rails Side Rails x2, Bed position Low and Locked. Fall Precautions: Yellow Socks Yellow Gown Door Sign Patient Fall Education Report given to Pina Shelby RN. Endorsed to follow up with CXR results and relay to Dr Price.
--- NOTE | 2020-08-01 19:43 | NUR ---
NURSE NOTES: New versed bag picked up from pharmacy and given to Pina Shelby RN.
--- NOTE | 2020-08-01 19:45 | NUR ---
NURSE NOTES: Spencer Mayo RN Spoke with Wood from radiology department concerning STAT CXR report, not mentioning of ETT tube on report. Wood states he will contact radiologist and clarify report. Awaiting CXR result clarification from radiology dept throughout my shift. . Pt is currently stable receiving tidal volumes in the 400s with spO2 94 %.
[2020-08-01] MEDS: Dyna-Hex 2% Top Sol 2oz TOPIC SCH (20:00)
--- NOTE | 2020-08-01 21:00 | NUR ---
NURSE NOTES: PM meds given Turned and repositioned Oral care provided.
[2020-08-01] MEDS: Vitamin D 1000 units Tab GT SCH (21:30)
[2020-08-01] MEDS: Enoxaparin 40mg Inj SUBQ SCH (21:30)
[2020-08-02] VITALS (31 sets, daily range): BP systolic 90–158; BP diastolic 74–96
--- NOTE | 2020-08-02 | NUR ---
NURSE NOTES: Pt is sedated, opens eyes, RASS noted -2, pt, unable to follow simple commands at this time Pt is ST to client experience administrator with 2+ radial and dorsalis pedis pulses. 7.5 ETT noted 25 cm at the lip with the same settings: AC 26 TV 500 FiO2 100 % Peep 16. Lung ortiz noted diminished upon auscultation. Pt has a pleur-evac chest tube draining fluid from right lateral chest area. Chest tube is connected to low, intermittent wall suction at 20 cm H20, intact Left naris NGT connected to low intermittent suction draining brown/green fluid. Abdomen is round and soft w/ active bowel sounds to all quadrants. Biswas noted draining yellow urine. Skin is intact. Pt has a DANIEL PICC with dry and intact dressing running versed gtt at 20 mg/hr and propofol gtt at 15 mcg/kg/min. LFA 20G IV noted saline-locked. Safety measures observed and no acute distress noted. Will continue to monitor.
[2020-08-02] MEDS: NovoLOG Insulin Flexpen SUBQ SCH ×4 (00:30→18:23)
[2020-08-02] MEDS: Midazolam HCl 50mg/10ml vial 100 MG in NS 180 ML IV PRN ×5 (02:00→22:00)
--- NOTE | 2020-08-02 02:00 | NUR ---
NURSE NOTES: CHG bath given Turned and repositioned Oral care provided.
--- NOTE | 2020-08-02 02:46 | Cardiology Progress Note ---
Subjective DATE OF SERVICE: Aug 01, 2020 Condition remains critical and prognosis guarded Increasingly hypoxic; worsening sinus tachycardia. He remains on full vent support, on 100% FIO2 - orally intubated. ABG (07/27) 7.36/60/45 (100% FIO2) CXR reveals 25% PTX Objective Last 24 Hour Vital Signs Date Time Temp Pulse Resp B/P (MAP) Pulse Ox O2 Delivery O2 Flow Rate FiO2 08/02/20 02:00 123 30 141/79 (99) 91 08/02/20 02:00 20 Mechanical Ventilator 100 08/02/20 02:00 30 141/79 Mechanical Ventilator 100 08/02/20 01:00 120 29 151/80 (103) 91 08/02/20 01:00 29 151/80 Mechanical Ventilator 100 08/02/20 00:00 Mechanical Ventilator 08/02/20 00:00 124 08/02/20 00:00 31 08/02/20 00:00 31 128/79 Mechanical Ventilator 100 08/02/20 00:00 124 31 128/79 (95) 89 08/02/20 00:00 100 08/01/20 23:07 30 153/79 Mechanical Ventilator 100 08/01/20 23:00 124 32 153/79 (103) 88 08/01/20 23:00 32 08/01/20 22:53 119 37 100 08/01/20 22:07 27 145/79 Mechanical Ventilator 100 08/01/20 22:00 27 08/01/20 22:00 119 27 145/79 (101) 91 08/01/20 21:07 29 134/79 Mechanical Ventilator 100 08/01/20 21:00 117 29 134/79 (97) 94 08/01/20 21:00 28 Mechanical Ventilator 100 08/01/20 20:07 27 140/73 Mechanical Ventilator 100 08/01/20 20:00 111 08/01/20 20:00 111 29 140/73 (95) 94 08/01/20 20:00 28 Mechanical Ventilator 100 08/01/20 20:00 Mechanical Ventilator 08/01/20 19:48 115 29 100 08/01/20 19:07 30 172/66 Mechanical Ventilator 100 08/01/20 19:00 115 30 172/66 (101) 92 08/01/20 19:00 30 Mechanical Ventilator 100 08/01/20 18:07 29 168/94 Mechanical Ventilator 100 08/01/20 18:00 100 08/01/20 18:00 115 29 168/94 (118) 94 08/01/20 18:00 29 Mechanical Ventilator 100 08/01/20 17:07 35 159/81 Mechanical Ventilator 100 08/01/20 17:00 121 35 159/81 (107) 93 08/01/20 17:00 35 Mechanical Ventilator 100 08/01/20 16:07 32 145/84 Mechanical Ventilator 100 08/01/20 16:00 100 08/01/20 16:00 98.7 128 32 145/84 (104) 96 08/01/20 16:00 Mechanical Ventilator 08/01/20 16:00 32 Mechanical Ventilator 100 08/01/20 16:00 126 08/01/20 15:23 124 31 100 08/01/20 15:07 31 150/81 Mechanical Ventilator 100 08/01/20 15:00 32 Mechanical Ventilator 100 08/01/20 15:00 122 31 150/81 (104) 94 08/01/20 14:07 32 155/84 Mechanical Ventilator 100 08/01/20 14:00 128 32 155/84 (107) 97 08/01/20 14:00 32 Mechanical Ventilator 100 08/01/20 13:07 30 149/102 Mechanical Ventilator 100 08/01/20 13:00 30 Mechanical Ventilator 100 08/01/20 13:00 126 26 149/102 (118) 96 08/01/20 12:07 28 163/94 Mechanical Ventilator 100 08/01/20 12:00 Mechanical Ventilator 08/01/20 12:00 99.0 130 28 168/90 (116) 97 08/01/20 12:00 100 08/01/20 12:00 28 Mechanical Ventilator 100 08/01/20 12:00 135 08/01/20 11:15 137 29 100 08/01/20 11:07 29 156/93 Mechanical Ventilator 100 08/01/20 11:00 30 Mechanical Ventilator 100 08/01/20 11:00 30 164/87 Mechanical Ventilator 100 08/01/20 11:00 141 31 141/110 (120) 90 08/01/20 10:07 32 162/90 Mechanical Ventilator 100 08/01/20 10:00 30 Mechanical Ventilator 95 08/01/20 10:00 32 Mechanical Ventilator 100 08/01/20 10:00 145 31 165/88 (113) 92 08/01/20 09:07 30 165/87 Mechanical Ventilator 100 08/01/20 09:00 140 31 166/86 (112) 98 08/01/20 09:00 30 Mechanical Ventilator 100 08/01/20 08:07 29 169/88 Mechanical Ventilator 100 08/01/20 08:00 145 08/01/20 08:00 99.7 133 28 162/92 (115) 98 08/01/20 08:00 29 Mechanical Ventilator 100 08/01/20 08:00 Mechanical Ventilator 08/01/20 08:00 100 08/01/20 07:07 26 149/80 Mechanical Ventilator 100 08/01/20 07:05 127 27 100 08/01/20 07:00 128 28 149/80 (103) 95 08/01/20 07:00 26 Mechanical Ventilator 100 08/01/20 06:07 20 151/91 Mechanical Ventilator 100 08/01/20 06:00 126 26 158/84 (108) 94 08/01/20 06:00 25 Mechanical Ventilator 100 08/01/20 05:07 25 154/94 Mechanical Ventilator 100 08/01/20 05:00 25 Mechanical Ventilator 100 08/01/20 05:00 119 25 154/94 (114) 95 08/01/20 04:07 22 142/89 Mechanical Ventilator 100 08/01/20 04:00 Mechanical Ventilator Mechanical Ventilator 08/01/20 04:00 100 08/01/20 04:00 103 08/01/20 04:00 21 Mechanical Ventilator 100 08/01/20 04:00 99.5 96 22 141/73 (95) 96 08/01/20 03:07 21 141/73 Mechanical Ventilator 100 08/01/20 03:00 107 22 131/88 (102) 96 08/01/20 03:00 22 Mechanical Ventilator 100 HEENT: Orally intubated, Mechanically Ventilated, Thin secretions ET Tube RHYTHM: SB LUNGS: bilateral rhonchi CARDIAC: regular rhythm, normal S1 and S2, bradycardia ABDOMEN: normal bowel sounds, non tender, soft EXTREMITIES: normal range of motion, non-tender Laboratory Tests Test 08/01/20 05:40 08/01/20 11:05 POC Whole Blood Glucose 110 MG/DL (74-106) H Arterial Blood pH 7.425 (7.350-7.450) Arterial Blood Partial Pressure CO2 61.5 mmHg (35.0-45.0) *H Arterial Blood Partial Pressure O2 mmHg (75.0-100.0) Arterial Blood HCO3 39.3 mmol/L (22.0-26.0) H Arterial Blood Oxygen Saturation 87.6 % (95-100) *L Arterial Blood Base Excess 12.2 (-2-2) *H Jacob Test Positive Assessment/Plan Assessment/Plan Covid 19 PNA Pneumothorax Secondary sinus tachycardia K.pneumonia PNA Acute respiratory failure with severe Hypoxia Sinus bradycardia resolved Diabetes mellitus with hyperglycemia due to steroids Transaminitis Mod protein/calorie malnutrition CRITICAL & GUARDED Chest tube Abx per ID Continuous cardiac monitoring Anticoagulation and steroid rx Titrate oxygen as able; prone. Vent settings adjusted by pulmonary Anti-viral rx Protein suppl Insulin cov'g by SS; levemir dose advanced further. Chuck Swain MD Aug 02, 2020 02:46
[2020-08-02] MEDS: Vancomycin 1.25gm Premix IVPB SCH ×3 (03:00→20:00)
--- NOTE | 2020-08-02 05:00 | NUR ---
NURSE NOTES: Still waiting CXR result clarification of ETT placement from radiology. Will endorse to AM shift.
[2020-08-02 06:24] LABS: HEMATOCRIT 40.4 % (42.0-52.0); HEMOGLOBIN 13.2 G/DL (14.2-18.0); MEAN CORPUSCULAR VOLUME 95 FL (80-99); PLATELET COUNT 175 K/UL (150-450); RED BLOOD COUNT 4.24 M/UL (4.70-6.10); WHITE BLOOD COUNT 15.8 K/UL (4.8-10.8)
[2020-08-02 06:56] LABS: ALANINE AMINOTRANSFERASE 45 U/L (12-78); ALBUMIN/GLOBULIN RATIO 0.4 (1.0-2.7); ALKALINE PHOSPHATASE 113 U/L (46-116); ANION GAP 6 mmol/L (5-15); ASPARTATE AMINO TRANSFERASE 61 U/L (15-37); BLOOD UREA NITROGEN 23 mg/dL (7-18); CARBON DIOXIDE 35 MMOL/L (21-32); CHLORIDE 100 MMOL/L (98-107); CREATININE 0.6 MG/DL (0.55-1.30); POTASSIUM 4.2 MMOL/L (3.5-5.1); SODIUM 141 MMOL/L (136-145); TRIGLYCERIDES 240 MG/DL (30-150)
--- NOTE | 2020-08-02 07:10 | NUR ---
HAND-OFF: Report given to Radha Tosacno RN. Endorswe POC.
--- NOTE | 2020-08-02 07:30 | NUR ---
NURSE NOTES: Report received from Pina Shelby RN. Patient is sedated in bed. RASS -2. ST on pvc monitor with HR 120-130's. Patient is febrile. Temp 101.5. Will start cooling measures and administer Tylenol. ETT 7.5/24cm at lip line. AC 26, TV 500, FiO2 100%, P 16. O2 sat 87-92%. RR 30's. Right chest tube in on low intermittent suction 20mmHg as ordered, draining small amount of serosang liquid. No leaks noted. No subcutaneous emphysema. Left NGT in place connected to low intermittent suction draining brown emesis. Biswas in place draining yellow urine to gravity. Pitting edema +1-2 on bilateral arms, hands, and feet noted. DANIEL PICC line patent and asymptomatic. Propofol is running at 15mcg/kg/min and Versed at 20mg/hr. Bed in lowest position. Side rails up x3. Will resume plan of care.
--- NOTE | 2020-08-02 07:40 | NUR ---
NURSE NOTES: Triglyceride is elevated 240. Notified Dr Price regarding elevated Triglyceride. Order to discontinue Propofol and start Fentanyl received, noted, and carried out.
[2020-08-02] MEDS: fentaNYL 2500mcg/NS 250ml 250 ML IV SCH (08:15)
--- NOTE | 2020-08-02 08:15 | NUR ---
NURSE NOTES: Started Fentanyl drip from 10mg/hr. Will titrate up the rate until patient reaches goal RASS score. Turned and repositioned patient.
[2020-08-02] MEDS: Vitamin B Complex Tab NG SCH (08:21)
[2020-08-02] MEDS: Docusate 100mg/10ml Liq NG SCH ×2 (08:21→20:39)
[2020-08-02] MEDS: Acetaminophen 650mg/20.3ml NG PRN (08:21)
--- NOTE | 2020-08-02 08:21 | NUR ---
NURSE NOTES: Tylenol 650mg via OGT given for fever 101.5. Initiated cooling measures. Will reassess temp later.
[2020-08-02] MEDS: Solu-MEDROL 40mg Inj IVP SCH ×2 (08:22→20:40)
[2020-08-02] MEDS: Pantoprazole Inj IVP SCH (08:22)
[2020-08-02] MEDS: Ascorbic Acid 500mg tab NG SCH ×2 (08:53→20:39)
[2020-08-02] MEDS: Levemir Flexpen SUBQ SCH ×2 (08:53→22:00)
--- NOTE | 2020-08-02 09:06 | Pulmonology Progress Note ---
Subjective ROS Limited/Unobtainable: Yes Gastrointestinal/Abdominal: Denies: nausea, vomiting, diarrhea Musculoskeletal: Denies: pain Allergies: Coded Allergies: No Known Allergies (Unverified , 03/08/17) All Systems: reviewed and negative except above Subjective not improved on high oxygen on vent CT in place Objective Last 24 Hour Vital Signs Date Time Temp Pulse Resp B/P (MAP) Pulse Ox O2 Delivery O2 Flow Rate FiO2 08/02/20 08:15 29 125/83 Mechanical Ventilator 100 08/02/20 07:00 31 Mechanical Ventilator 100 08/02/20 06:30 133 43 100 08/02/20 06:00 98.9 125 30 140/78 (98) 91 08/02/20 06:00 30 08/02/20 06:00 30 140/78 Mechanical Ventilator 100 08/02/20 05:00 32 08/02/20 05:00 32 138/76 100 08/02/20 05:00 123 32 138/76 (96) 90 08/02/20 04:00 Mechanical Ventilator 08/02/20 04:00 126 33 135/79 (97) 91 08/02/20 04:00 100 08/02/20 04:00 33 08/02/20 04:00 33 135/79 Mechanical Ventilator 100 08/02/20 03:00 127 35 132/78 (96) 91 08/02/20 03:00 35 08/02/20 03:00 35 132/78 Mechanical Ventilator 100 08/02/20 02:40 123 37 100 08/02/20 02:00 123 30 141/79 (99) 91 08/02/20 02:00 20 Mechanical Ventilator 100 08/02/20 02:00 30 141/79 Mechanical Ventilator 100 08/02/20 01:00 120 29 151/80 (103) 91 08/02/20 01:00 29 08/02/20 01:00 29 151/80 Mechanical Ventilator 100 08/02/20 00:00 Mechanical Ventilator 08/02/20 00:00 124 08/02/20 00:00 31 08/02/20 00:00 31 128/79 Mechanical Ventilator 100 08/02/20 00:00 99.0 124 31 128/79 (95) 89 08/02/20 00:00 100 08/01/20 23:07 30 153/79 Mechanical Ventilator 100 08/01/20 23:00 124 32 153/79 (103) 88 08/01/20 23:00 32 08/01/20 22:53 119 37 100 08/01/20 22:07 27 145/79 Mechanical Ventilator 100 08/01/20 22:00 27 08/01/20 22:00 119 27 145/79 (101) 91 08/01/20 21:07 29 134/79 Mechanical Ventilator 100 08/01/20 21:00 117 29 134/79 (97) 94 08/01/20 21:00 28 Mechanical Ventilator 100 08/01/20 20:07 27 140/73 Mechanical Ventilator 100 08/01/20 20:00 111 08/01/20 20:00 98.9 111 29 140/73 (95) 94 08/01/20 20:00 28 Mechanical Ventilator 100 08/01/20 20:00 Mechanical Ventilator 08/01/20 19:48 115 29 100 08/01/20 19:07 30 172/66 Mechanical Ventilator 100 08/01/20 19:00 115 30 172/66 (101) 92 08/01/20 19:00 30 Mechanical Ventilator 100 08/01/20 18:07 29 168/94 Mechanical Ventilator 100 08/01/20 18:00 100 08/01/20 18:00 115 29 168/94 (118) 94 08/01/20 18:00 29 Mechanical Ventilator 100 08/01/20 17:07 35 159/81 Mechanical Ventilator 100 08/01/20 17:00 121 35 159/81 (107) 93 08/01/20 17:00 35 Mechanical Ventilator 100 08/01/20 16:07 32 145/84 Mechanical Ventilator 100 08/01/20 16:00 100 08/01/20 16:00 98.7 128 32 145/84 (104) 96 08/01/20 16:00 Mechanical Ventilator 08/01/20 16:00 32 Mechanical Ventilator 100 08/01/20 16:00 126 08/01/20 15:23 124 31 100 08/01/20 15:07 31 150/81 Mechanical Ventilator 100 08/01/20 15:00 32 Mechanical Ventilator 100 08/01/20 15:00 122 31 150/81 (104) 94 08/01/20 14:07 32 155/84 Mechanical Ventilator 100 08/01/20 14:00 128 32 155/84 (107) 97 08/01/20 14:00 32 Mechanical Ventilator 100 08/01/20 13:07 30 149/102 Mechanical Ventilator 100 08/01/20 13:00 30 Mechanical Ventilator 100 08/01/20 13:00 126 26 149/102 (118) 96 08/01/20 12:07 28 163/94 Mechanical Ventilator 100 08/01/20 12:00 Mechanical Ventilator 08/01/20 12:00 99.0 130 28 168/90 (116) 97 08/01/20 12:00 100 08/01/20 12:00 28 Mechanical Ventilator 100 08/01/20 12:00 135 08/01/20 11:15 137 29 100 08/01/20 11:07 29 156/93 Mechanical Ventilator 100 08/01/20 11:00 30 Mechanical Ventilator 100 08/01/20 11:00 30 164/87 Mechanical Ventilator 100 08/01/20 11:00 141 31 141/110 (120) 90 08/01/20 10:07 32 162/90 Mechanical Ventilator 100 08/01/20 10:00 30 Mechanical Ventilator 95 08/01/20 10:00 32 Mechanical Ventilator 100 08/01/20 10:00 145 31 165/88 (113) 92 08/01/20 09:07 30 165/87 Mechanical Ventilator 100 Intake and Output 08/01/20 08/02/20 19:00 07:00 Intake Total 1054.0540 ml 537.182 ml Output Total 1670 ml 1500 ml Balance -615.9460 ml -962.818 ml IV Total 1054.0540 ml 537.182 ml Tube Feeding 0 ml 0 ml Output Urine Total 1600 ml 1360 ml Gastric Drainage Total 60 ml 120 ml Chest Tube Drainage Total 10 ml 20 ml Objective deferred due to COVID Laboratory Tests 08/01/20 11:05: Arterial Blood pH 7.425, Arterial Blood Partial Pressure CO2 61.5*H, Arterial Blood Partial Pressure O2 , Arterial Blood HCO3 39.3H, Arterial Blood Oxygen Saturation 87.6*L, Arterial Blood Base Excess 12.2*H, Jacob Test Positive 08/02/20 05:10: White Blood Count 15.8H, Red Blood Count 4.24L, Hemoglobin 13.2L, Hematocrit 40.4L, Mean Corpuscular Volume 95, Mean Corpuscular Hemoglobin 31.2H, Mean Corpuscular Hemoglobin Concent 32.8, Red Cell Distribution Width 14.0, Platelet Count 175, Mean Platelet Volume 7.2, Neutrophils (%) (Auto) , Lymphocytes (%) (Auto) , Monocytes (%) (Auto) , Eosinophils (%) (Auto) , Basophils (%) (Auto) , Neutrophils % (Manual) [Pending], Lymphocytes % (Manual) [Pending], Platelet Estimate [Pending], Platelet Morphology [Pending], Sodium Level 141, Potassium Level 4.2, Chloride Level 100, Carbon Dioxide Level 35H, Anion Gap 6, Blood Urea Nitrogen 23H, Creatinine 0.6, Estimat Glomerular Filtration Rate > 60, Glucose Level 110H, Calcium Level 9.0, Total Bilirubin 1.0, Aspartate Amino Transf (AST/SGOT) 61H, Alanine Aminotransferase (ALT/SGPT) 45, Alkaline Phosphatase 113, Total Protein 6.7, Albumin 2.0L, Globulin 4.7, Albumin/Globulin Ratio 0.4L, Triglycerides Level 240H 08/02/20 08:23: Arterial Blood pH 7.411, Arterial Blood Partial Pressure CO2 55.9*H, Arterial Bl ood Partial Pressure O2 , Arterial Blood HCO3 34.7H, Arterial Blood Oxygen Saturation 88.2*L, Arterial Blood Base Excess 8.2H, Jacob Test Positive 08/02/20 08:27: POC Whole Blood Glucose [Pending] Current Medications Medications (Trade) Dose Ordered Sig/Milagro Route PRN Reason Start Time Stop Time Status Last Admin Dose Admin Acetaminophen (Tylenol) 650 mg Q4H PRN RECTAL Mild Pain (Pain Scale 1-3) 07/24/20 18:15 08/23/20 18:14 07/25/20 11:49 Acetaminophen (Tylenol) 650 mg Q6H PRN NG Mild Pain (Pain Scale 1-3) 07/26/20 08:30 08/25/20 08:29 07/29/20 11:58 Acetaminophen (Tylenol) 650 mg Q6H PRN NG Temp >100.5 07/26/20 08:30 08/25/20 08:29 08/02/20 08:21 Albuterol/ Ipratropium (Combivent Respimat) 2 puff Q2H PRN INH Shortness of Breath 07/09/20 21:45 08/08/20 21:44 12/22/20 09:17 Ascorbic Acid (Vitamin C) 500 mg EVERY 12 HOURS NG 07/26/20 21:00 08/10/20 08:59 08/02/20 08:53 Ceftriaxone Sodium 1 gm/ Dextrose 55 ml @ 110 mls/hr Q24H IVPB 08/01/20 18:00 08/08/20 17:59 08/01/20 18:05 Chlorhexidine Gluconate (Marycarmen-Hex 2%) 1 applic DAILY@2000 TOPIC 07/20/20 20:00 10/18/20 19:59 08/01/20 20:00 Dextrose (Dextrose 50%) 25 ml Q30M PRN IV Hypoglycemia 07/23/20 13:15 10/21/20 13:14 Dextrose (Dextrose 50%) 50 ml Q30M PRN IV Hypoglycemia 07/23/20 13:15 10/21/20 13:14 Dextrose/Sodium Chloride 1,000 ml @ 60 mls/hr [id number] PRN IV WHILE PRONING ONLY 07/24/20 17:45 08/23/20 17:44 07/24/20 18:01 Docusate Sodium (Colace) 100 mg EVERY 12 HOURS NG 07/27/20 21:00 08/26/20 20:59 08/02/20 08:21 Enoxaparin Sodium (Lovenox) 40 mg Q12HR SUBQ 08/01/20 21:00 10/30/20 20:59 08/01/20 21:30 Fentanyl Citrate 250 ml @ 1 mls/hr Q24H IV 08/02/20 07:45 08/04/20 07:44 08/02/20 08:15 Hydromorphone HCl (Dilaudid) 1 mg Q4H PRN IVP For Pain 4-10 07/28/20 08:30 08/04/20 08:29 07/31/20 12:00 Insulin Aspart (NovoLOG) EVERY 6 HOURS SUBQ 07/28/20 00:00 10/21/20 15:59 08/01/20 00:16 Insulin Detemir (Levemir) 26 units EVERY 12 HOURS SUBQ 07/26/20 09:00 10/20/20 08:59 08/02/20 08:53 Methylprednisolone Sodium Succinate (Solu-MEDROL) 40 mg EVERY 12 HOURS IVP 07/25/20 12:30 10/23/20 12:29 08/02/20 08:22 Midazolam HCl 100 mg/Sodium Chloride 200 ml @ 2 mls/hr Q24H PRN IV SEDATION 08/01/20 10:00 08/03/20 09:59 08/02/20 07:00 Ondansetron HCl (Zofran) 4 mg Q6H PRN IVP Nausea & Vomiting 07/09/20 21:45 08/08/20 21:44 Pantoprazole (Protonix) 40 mg DAILY IVP 07/25/20 09:00 08/24/20 08:59 08/02/20 08:22 Promethazine HCl/ Codeine (Phenergan with Codeine) 5 ml Q4H PRN ORAL For Cough 07/11/20 15:15 08/10/20 15:14 07/26/20 18:26 Vancomycin HCl 250 ml @ 166.667 mls/hr Q8H IVPB 07/27/20 11:00 08/03/20 23:59 08/02/20 03:00 [facility] 1 ea DAILY PRN MISC Per rx protocol 07/26/20 09:00 08/25/20 08:59 Vitamin B Complex (Vitamin B Complex) 1 tab DAILY NG 07/24/20 09:00 10/09/20 08:59 08/02/20 08:21 Vitamin D (Vitamin D) 1,000 unit BEDTIME GT 07/27/20 21:00 08/13/20 09:29 08/01/20 21:30 Assessment/Plan Assessment/Plan acute hypoxemic respiratory failure COVID pneumonia Asthma elevated liver enzymes DNR ARDS with fibrosing phase pneumothorax elevated TG PLAN borderline oxygen saturation/ not improved CT per surgery monitor imaging monitor ABG respiratory care ID noted DVT prophylaxis prognosis appears poor for meaningful recovery monitor respiratory status for change medications/laboratory data/nursing notes/ICU care reviewed in detail note reviewed and edited care discussed with RN and RT ICU time spent >40 minutes Elfego Price MD Aug 02, 2020 09:06
[2020-08-02] MEDS: Enoxaparin 40mg Inj SUBQ SCH ×2 (09:57→20:40)
--- NOTE | 2020-08-02 10:20 | NUR ---
NURSE NOTES: Will keep Versed at 20mcg/hr and Fentanyl at 30mcg/hr since RASS is -2. Turned and repositioned patient. Will resume plan of care.
--- NOTE | 2020-08-02 10:30 | NUR ---
CASE MANAGEMENT:REVIEW 08/02/20 SI: COVID PNA. ACUTE RESPIRATORY FAILURE~INTUBATED ARDS. PNEUMOTHORAX ~ CHEST TUBE TO SUCTION 101.5 135 32 142/87 92% ON VENT SUPPORT W/100% FIO2 WBC+15.8 PCO2+55.9 IS: FENTANYL GTT VERSED GTT PRN IV ROCEPHIN Q24 IV VANCOMYCIN Q8HRS IV SOLUMEDROL Q12 IV PROTONIX QD LOVENOX SQ Q12 : ICU STATUS DCP: FROM HOME
--- NOTE | 2020-08-02 12:00 | NUR ---
NURSE NOTES: Oral temp 100.3. Continued cooling measures. Turned and repositioned patient. Will continue to monitor.
--- NOTE | 2020-08-02 12:48 | NUR ---
RADIOLOGY DEPT., CHEST X-RAY DONE.-P.DYE
--- NOTE | 2020-08-02 14:26 | Diagnostic Imaging Report ---
Indication: Dyspnea Technique: One view of the chest Comparison: 08/01/2020 Findings: Endotracheal tube projects in the hypopharynx. In retrospect, on the prior exam, it appeared to have been at the level of the cords. There is a right chest tube. There is very less generally a sliver of a right apical pneumothorax. Satisfactory position of orogastric tube. Distended stomach. Left arm PICC remains. Bilateral infiltrates are unchanged Impression: Endotracheal tube has pulled out of the trachea, is within the hypopharynx. This critical value finding was phoned to ICU charge nurse Shyla as well as patient's nurse at the time of interpretation Distended stomach, probably related to the above Right chest tube in good position. Equivocal sliver of a right apical pneumothorax Unchanged bilateral infiltrates
--- NOTE | 2020-08-02 14:40 | NUR ---
NURSE NOTES: Report received from Radiologist Dr Flores that today's CXR shows that ETT was pulled out of the trachea and is within the hypopharynx. Notified Dr Price regarding the CXR result. He ordered to reintubate ETT. RT is getting ready at bedside. ER doctor was called by Dr Price to come up and reintubate.
--- NOTE | 2020-08-02 15:00 | NUR ---
NURSE NOTES: Dr Hartley from ER came up and reintubated patient. ETT 7.5/25.5cm at lip line. STAT CXR ordered to inform placement.
--- NOTE | 2020-08-02 15:09 | General Progress Note ---
Subjective ROS Limited/Unobtainable: No Constitutional: Reports: malaise, weakness HEENT: Reports: no symptoms Cardiovascular: Reports: no symptoms Respiratory: Reports: no symptoms Gastrointestinal/Abdominal: Reports: no symptoms Genitourinary: Reports: no symptoms Neurologic/Psychiatric: Reports: no symptoms Endocrine: Reports: no symptoms Hematologic/Lymphatic: Reports: no symptoms Allergies: Coded Allergies: No Known Allergies (Unverified , 03/08/17) All Systems: reviewed and negative except above Subjective currently being re-intubated. stable on the vent. cxr shows ett tube in the hypopharynx. Objective Last 24 Hour Vital Signs Date Time Temp Pulse Resp B/P (MAP) Pulse Ox O2 Delivery O2 Flow Rate FiO2 08/02/20 14:00 31 146/84 Mechanical Ventilator 100 08/02/20 14:00 23 Mechanical Ventilator 100 08/02/20 14:00 117 30 150/83 (105) 88 08/02/20 13:00 124 34 149/85 (106) 88 08/02/20 13:00 31 149/85 Mechanical Ventilator 100 08/02/20 13:00 31 Mechanical Ventilator 100 08/02/20 12:30 123 34 148/84 (105) 88 08/02/20 12:01 124 08/02/20 12:00 100.3 118 30 141/87 (105) 88 08/02/20 12:00 100 08/02/20 12:00 30 144/80 Mechanical Ventilator 100 08/02/20 12:00 32 Mechanical Ventilator 100 08/02/20 12:00 Mechanical Ventilator 08/02/20 11:00 124 30 151/85 (107) 87 08/02/20 11:00 33 147/85 Mechanical Ventilator 100 08/02/20 11:00 33 Mechanical Ventilator 100 08/02/20 11:00 124 30 151/85 (107) 87 08/02/20 10:40 128 31 100 08/02/20 10:00 34 147/84 Mechanical Ventilator 100 08/02/20 10:00 33 Mechanical Ventilator 100 08/02/20 10:00 99.7 128 36 147/84 (105) 87 08/02/20 09:45 132 37 149/84 (105) 87 08/02/20 09:00 31 142/87 Mechanical Ventilator 100 08/02/20 09:00 32 Mechanical Ventilator 100 08/02/20 09:00 132 37 149/84 (105) 87 08/02/20 08:51 99.7 08/02/20 08:45 135 23 142/87 (105) 88 08/02/20 08:45 31 142/87 Mechanical Ventilator 100 08/02/20 08:30 101.5 128 32 136/80 (98) 92 08/02/20 08:30 31 142/87 Mechanical Ventilator 100 08/02/20 08:15 29 125/83 Mechanical Ventilator 100 08/02/20 08:09 130 31 135/83 (100) 91 08/02/20 08:00 Mechanical Ventilator 08/02/20 08:00 130 31 135/83 (100) 90 08/02/20 08:00 100 08/02/20 08:00 32 Mechanical Ventilator 100 08/02/20 08:00 130 08/02/20 07:54 130 31 129/74 (92) 89 08/02/20 07:49 128 08/02/20 07:39 128 30 129/74 (92) 89 08/02/20 07:38 32 135/83 Mechanical Ventilator 100 08/02/20 07:00 31 Mechanical Ventilator 100 08/02/20 07:00 31 139/78 Mechanical Ventilator 91 08/02/20 07:00 128 31 139/78 (98) 91 08/02/20 06:30 133 43 100 08/02/20 06:00 98.9 125 30 140/78 (98) 91 08/02/20 06:00 30 08/02/20 06:00 30 140/78 Mechanical Ventilator 100 08/02/20 05:00 32 08/02/20 05:00 32 138/76 100 08/02/20 05:00 123 32 138/76 (96) 90 08/02/20 04:00 Mechanical Ventilator 08/02/20 04:00 126 33 135/79 (97) 91 08/02/20 04:00 100 08/02/20 04:00 33 08/02/20 04:00 33 135/79 Mechanical Ventilator 100 08/02/20 03:00 127 35 132/78 (96) 91 08/02/20 03:00 35 08/02/20 03:00 35 132/78 Mechanical Ventilator 100 08/02/20 02:40 123 37 100 08/02/20 02:00 123 30 141/79 (99) 91 08/02/20 02:00 20 Mechanical Ventilator 100 08/02/20 02:00 30 141/79 Mechanical Ventilator 100 08/02/20 01:00 120 29 151/80 (103) 91 08/02/20 01:00 29 08/02/20 01:00 29 151/80 Mechanical Ventilator 100 08/02/20 00:00 Mechanical Ventilator 08/02/20 00:00 124 08/02/20 00:00 31 08/02/20 00:00 31 128/79 Mechanical Ventilator 100 08/02/20 00:00 99.0 124 31 128/79 (95) 89 08/02/20 00:00 100 08/01/20 23:07 30 153/79 Mechanical Ventilator 100 08/01/20 23:00 124 32 153/79 (103) 88 08/01/20 23:00 32 08/01/20 22:53 119 37 100 08/01/20 22:07 27 145/79 Mechanical Ventilator 100 08/01/20 22:00 27 08/01/20 22:00 119 27 145/79 (101) 91 08/01/20 21:07 29 134/79 Mechanical Ventilator 100 08/01/20 21:00 117 29 134/79 (97) 94 08/01/20 21:00 28 Mechanical Ventilator 100 08/01/20 20:07 27 140/73 Mechanical Ventilator 100 08/01/20 20:00 111 08/01/20 20:00 98.9 111 29 140/73 (95) 94 08/01/20 20:00 28 Mechanical Ventilator 100 08/01/20 20:00 Mechanical Ventilator 08/01/20 19:48 115 29 100 08/01/20 19:07 30 172/66 Mechanical Ventilator 100 08/01/20 19:00 115 30 172/66 (101) 92 08/01/20 19:00 30 Mechanical Ventilator 100 08/01/20 18:07 29 168/94 Mechanical Ventilator 100 08/01/20 18:00 100 08/01/20 18:00 115 29 168/94 (118) 94 08/01/20 18:00 29 Mechanical Ventilator 100 08/01/20 17:07 35 159/81 Mechanical Ventilator 100 08/01/20 17:00 121 35 159/81 (107) 93 08/01/20 17:00 35 Mechanical Ventilator 100 08/01/20 16:07 32 145/84 Mechanical Ventilator 100 08/01/20 16:00 100 08/01/20 16:00 98.7 128 32 145/84 (104) 96 08/01/20 16:00 Mechanical Ventilator 08/01/20 16:00 32 Mechanical Ventilator 100 08/01/20 16:00 126 08/01/20 15:23 124 31 100 08/01/20 15:07 31 150/81 Mechanical Ventilator 100 Intake and Output 08/01/20 08/02/20 19:00 07:00 Intake Total 1054.0540 ml 545.714 ml Output Total 1670 ml 1500 ml Balance -615.9460 ml -954.286 ml IV Total 1054.0540 ml 545.714 ml Tube Feeding 0 ml 0 ml Output Urine Total 1600 ml 1360 ml Gastric Drainage Total 60 ml 120 ml Chest Tube Drainage Total 10 ml 20 ml Laboratory Tests 08/02/20 05:10: White Blood Count 15.8H, Red Blood Count 4.24L, Hemoglobin 13.2L, Hematocrit 40.4L, Mean Corpuscular Volume 95, Mean Corpuscular Hemoglobin 31.2H, Mean Corpuscular Hemoglobin Concent 32.8, Red Cell Distribution Width 14.0, Platelet Count 175, Mean Platelet Volume 7.2, Neutrophils (%) (Auto) , Lymphocytes (%) (Auto) , Monocytes (%) (Auto) , Eosinophils (%) (Auto) , Basophils (%) (Auto) , Differential Total Cells Counted 100, Neutrophils % (Manual) 90H, Lymphocytes % (Manual) 7L, Monocytes % (Manual) 3, Eosinophils % (Manual) 0, Basophils % (Manual) 0, Band Neutrophils 0, Platelet Estimate Adequate, Platelet Morphology Normal, Red Blood Cell Morphology Normal, Sodium Level 141, Potassium Level 4.2, Chloride Level 100, Carbon Dioxide Level 35H, Anion Gap 6, Blood Urea Nitrogen 23H, Creatinine 0.6, Estimat Glomerular Filtration Rate > 60, Glucose Level 110H , Calcium Level 9.0, Total Bilirubin 1.0, Aspartate Amino Transf (AST/SGOT) 61H, Alanine Aminotransferase (ALT/SGPT) 45, Alkaline Phosphatase 113, Total Protein 6.7, Albumin 2.0L, Globulin 4.7, Albumin/Globulin Ratio 0.4L, Triglycerides Level 240H 08/02/20 08:23: Arterial Blood pH 7.411, Arterial Blood Partial Pressure CO2 55.9*H, Arterial Blood Partial Pressure O2 , Arterial Blood HCO3 34.7H, Arterial Blood Oxygen Saturation 88.2*L, Arterial Blood Base Excess 8.2H, Jacob Test Positive 08/02/20 08:27: POC Whole Blood Glucose [Pending] 08/02/20 10:42: Vancomycin Level Trough 9.5 08/02/20 12:08: POC Whole Blood Glucose [Pending] Height (Feet): 5 Height (Inches): 6.00 Weight (Pounds): 209 Objective deferred Assessment/Plan Problem List: (1) Coronavirus infection ICD Codes: B34.2 - Coronavirus infection, unspecified SNOMED: [id number] Status: not improved Assessment/Plan: re-intubate vent support resp rx tube feeds dvt/stress ulcer prophylaxis monitor labs anticipate pt will eventually need trach Rolando Cherry MD Aug 02, 2020 15:09
--- NOTE | 2020-08-02 15:24 | Surgery Progress Note ---
Surgery Progress Note Subjective Procedure Performed right chest tube insertion Additional Comments requires reintubation ill appearing on high vent support prognosis guarded cxr worsening Objective Last 24 Hour Vital Signs Date Time Temp Pulse Resp B/P (MAP) Pulse Ox O2 Delivery O2 Flow Rate FiO2 08/02/20 15:11 104 34 100 08/02/20 14:00 31 146/84 Mechanical Ventilator 100 08/02/20 14:00 23 Mechanical Ventilator 100 08/02/20 14:00 117 30 150/83 (105) 88 08/02/20 13:00 124 34 149/85 (106) 88 08/02/20 13:00 31 149/85 Mechanical Ventilator 100 08/02/20 13:00 31 Mechanical Ventilator 100 08/02/20 12:30 123 34 148/84 (105) 88 08/02/20 12:01 124 08/02/20 12:00 100.3 118 30 141/87 (105) 88 08/02/20 12:00 100 08/02/20 12:00 30 144/80 Mechanical Ventilator 100 08/02/20 12:00 32 Mechanical Ventilator 100 08/02/20 12:00 Mechanical Ventilator 08/02/20 11:00 124 30 151/85 (107) 87 08/02/20 11:00 33 147/85 Mechanical Ventilator 100 08/02/20 11:00 33 Mechanical Ventilator 100 08/02/20 11:00 124 30 151/85 (107) 87 08/02/20 10:40 128 31 100 08/02/20 10:00 34 147/84 Mechanical Ventilator 100 08/02/20 10:00 33 Mechanical Ventilator 100 08/02/20 10:00 99.7 128 36 147/84 (105) 87 08/02/20 09:45 132 37 149/84 (105) 87 08/02/20 09:00 31 142/87 Mechanical Ventilator 100 08/02/20 09:00 32 Mechanical Ventilator 100 08/02/20 09:00 132 37 149/84 (105) 87 08/02/20 08:51 99.7 08/02/20 08:45 135 23 142/87 (105) 88 08/02/20 08:45 31 142/87 Mechanical Ventilator 100 08/02/20 08:30 101.5 128 32 136/80 (98) 92 08/02/20 08:30 31 142/87 Mechanical Ventilator 100 08/02/20 08:15 29 125/83 Mechanical Ventilator 100 08/02/20 08:09 130 31 135/83 (100) 91 08/02/20 08:00 Mechanical Ventilator 08/02/20 08:00 130 31 135/83 (100) 90 08/02/20 08:00 100 08/02/20 08:00 32 Mechanical Ventilator 100 08/02/20 08:00 130 08/02/20 07:54 130 31 129/74 (92) 89 08/02/20 07:49 128 08/02/20 07:39 128 30 129/74 (92) 89 08/02/20 07:38 32 135/83 Mechanical Ventilator 100 08/02/20 07:00 31 Mechanical Ventilator 100 08/02/20 07:00 31 139/78 Mechanical Ventilator 91 08/02/20 07:00 128 31 139/78 (98) 91 08/02/20 06:30 133 43 100 08/02/20 06:00 98.9 125 30 140/78 (98) 91 08/02/20 06:00 30 08/02/20 06:00 30 140/78 Mechanical Ventilator 100 08/02/20 05:00 32 08/02/20 05:00 32 138/76 100 08/02/20 05:00 123 32 138/76 (96) 90 08/02/20 04:00 Mechanical Ventilator 08/02/20 04:00 126 33 135/79 (97) 91 08/02/20 04:00 100 08/02/20 04:00 33 08/02/20 04:00 33 135/79 Mechanical Ventilator 100 08/02/20 03:00 127 35 132/78 (96) 91 08/02/20 03:00 35 08/02/20 03:00 35 132/78 Mechanical Ventilator 100 08/02/20 02:40 123 37 100 08/02/20 02:00 123 30 141/79 (99) 91 08/02/20 02:00 20 Mechanical Ventilator 100 08/02/20 02:00 30 141/79 Mechanical Ventilator 100 08/02/20 01:00 120 29 151/80 (103) 91 08/02/20 01:00 29 08/02/20 01:00 29 151/80 Mechanical Ventilator 100 08/02/20 00:00 Mechanical Ventilator 08/02/20 00:00 124 08/02/20 00:00 31 08/02/20 00:00 31 128/79 Mechanical Ventilator 100 08/02/20 00:00 99.0 124 31 128/79 (95) 89 08/02/20 00:00 100 08/01/20 23:07 30 153/79 Mechanical Ventilator 100 08/01/20 23:00 124 32 153/79 (103) 88 08/01/20 23:00 32 08/01/20 22:53 119 37 100 08/01/20 22:07 27 145/79 Mechanical Ventilator 100 08/01/20 22:00 27 08/01/20 22:00 119 27 145/79 (101) 91 08/01/20 21:07 29 134/79 Mechanical Ventilator 100 08/01/20 21:00 117 29 134/79 (97) 94 08/01/20 21:00 28 Mechanical Ventilator 100 08/01/20 20:07 27 140/73 Mechanical Ventilator 100 08/01/20 20:00 111 08/01/20 20:00 98.9 111 29 140/73 (95) 94 08/01/20 20:00 28 Mechanical Ventilator 100 08/01/20 20:00 Mechanical Ventilator 08/01/20 19:48 115 29 100 08/01/20 19:07 30 172/66 Mechanical Ventilator 100 08/01/20 19:00 115 30 172/66 (101) 92 08/01/20 19:00 30 Mechanical Ventilator 100 08/01/20 18:07 29 168/94 Mechanical Ventilator 100 08/01/20 18:00 100 08/01/20 18:00 115 29 168/94 (118) 94 08/01/20 18:00 29 Mechanical Ventilator 100 08/01/20 17:07 35 159/81 Mechanical Ventilator 100 08/01/20 17:00 121 35 159/81 (107) 93 08/01/20 17:00 35 Mechanical Ventilator 100 08/01/20 16:07 32 145/84 Mechanical Ventilator 100 08/01/20 16:00 100 08/01/20 16:00 98.7 128 32 145/84 (104) 96 08/01/20 16:00 Mechanical Ventilator 08/01/20 16:00 32 Mechanical Ventilator 100 08/01/20 16:00 126 I&O Intake and Output 08/01/20 08/02/20 19:00 07:00 Intake Total 1054.0540 ml 545.714 ml Output Total 1670 ml 1500 ml Balance -615.9460 ml -954.286 ml IV Total 1054.0540 ml 545.714 ml Tube Feeding 0 ml 0 ml Output Urine Total 1600 ml 1360 ml Gastric Drainage Total 60 ml 120 ml Chest Tube Drainage Total 10 ml 20 ml Dressing: saturated Drains: other Cardiovascular: RSR Respiratory: decreased breath sounds Abdomen: soft, non-tender, present bowel sounds Extremities: edema, no tenderness, no cyanosis Laboratory Tests Test 08/02/20 05:10 08/02/20 08:23 08/02/20 08:27 08/02/20 10:42 White Blood Count 15.8 K/UL (4.8-10.8) H Red Blood Count 4.24 M/UL (4.70-6.10) L Hemoglobin 13.2 G/DL (14.2-18.0) L Hematocrit 40.4 % (42.0-52.0) L Mean Corpuscular Volume 95 FL (80-99) Mean Corpuscular Hemoglobin 31.2 PG (27.0-31.0) H Mean Corpuscular Hemoglobin Concent 32.8 G/DL (32.0-36.0) Red Cell Distribution Width 14.0 % (11.6-14.8) Platelet Count 175 K/UL (150-450) Mean Platelet Volume 7.2 FL (6.5-10.1) Neutrophils (%) (Auto) % (45.0-75.0) Lymphocytes (%) (Auto) % (20.0-45.0) Monocytes (%) (Auto) % (1.0-10.0) Eosinophils (%) (Auto) % (0.0-3.0) Basophils (%) (Auto) % (0.0-2.0) Differential Total Cells Counted 100 Neutrophils % (Manual) 90 % (45-75) H Lymphocytes % (Manual) 7 % (20-45) L Monocytes % (Manual) 3 % (1-10) Eosinophils % (Manual) 0 % (0-3) Basophils % (Manual) 0 % (0-2) Band Neutrophils 0 % (0-8) Platelet Estimate Adequate Platelet Morphology Normal Red Blood Cell Morphology Normal Sodium Level 141 MMOL/L (136-145) Potassium Level 4.2 MMOL/L (3.5-5.1) Chloride Level 100 MMOL/L (98-107) Carbon Dioxide Level 35 MMOL/L (21-32) H Anion Gap 6 mmol/L (5-15) Blood Urea Nitrogen 23 mg/dL (7-18) H Creatinine 0.6 MG/DL (0.55-1.30) Estimat Glomerular Filtration Rate > 60 mL/min (>60) Glucose Level 110 MG/DL (74-106) H Calcium Level 9.0 MG/DL (8.5-10.1) Total Bilirubin 1.0 MG/DL (0.2-1.0) Aspartate Amino Transf (AST/SGOT) 61 U/L (15-37) H Alanine Aminotransferase (ALT/SGPT) 45 U/L (12-78) Alkaline Phosphatase 113 U/L (46-116) Total Protein 6.7 G/DL (6.4-8.2) Albumin 2.0 G/DL (3.4-5.0) L Globulin 4.7 g/dL Albumin/Globulin Ratio 0.4 (1.0-2.7) L Triglycerides Level 240 MG/DL (30-150) H Arterial Blood pH 7.411 (7.350-7.450) Arterial Blood Partial Pressure CO2 55.9 mmHg (35.0-45.0) *H Arterial Blood Partial Pressure O2 mmHg (75.0-100.0) Arterial Blood HCO3 34.7 mmol/L (22.0-26.0) H Arterial Blood Oxygen Saturation 88.2 % (95-100) *L Arterial Blood Base Excess 8.2 (-2-2) H Jacob Test Positive POC Whole Blood Glucose Pending Vancomycin Level Trough 9.5 ug/mL (5.0-12.0) Test 08/02/20 12:08 POC Whole Blood Glucose Pending Plan Problems: (1) Pneumothorax Assessment & Plan: 31M covid on vent peep 16 fi02 100 right ptx s/p right chest tube ett complication replaced 07/01 chest tube vac replaced this AM as well given malfunction high risk low tv cxr noted ill appearing tube and lines checked will need to monitor closely unable to wean vent at this time cont current care plan (2) Respiratory failure (3) Coronavirus infection (4) Diabetes (5) Hypercapnia (6) Hypoxia (7) Asthma (8) HTN (hypertension) (9) Obesity (BMI 30-39.9) (10) Acute respiratory distress syndrome (ARDS) due to 2019-nCoV (11) Acute hypoxemic respiratory failure due to COVID-19 (12) Bradycardia (13) Laceration Mulugeta Butler Aug 02, 2020 15:24
--- NOTE | 2020-08-02 15:45 | Diagnostic Imaging Report ---
Indication: Status post intubation Technique: One view of the chest Comparison: 08/02/2020 Findings: Bilateral infiltrates are unchanged. Interval endotracheal intubation, endotracheal tube tip projecting in good position approximately 5 cm above the blaine. Stable satisfactory position of orogastric tube. Stomach remains distended with gas. Right chest tube remains. No gross pneumothorax currently. Impression: Satisfactory endotracheal intubation Stable bilateral infiltrates
--- NOTE | 2020-08-02 17:04 | NUR ---
NURSE NOTES: Notified Dr Price regarding post intubation ABG result. Awaiting call back for new orders.
[2020-08-02] MEDS: cefTRIAXone 1 GM in D5W 55 ML IVPB SCH (17:10)
--- NOTE | 2020-08-02 17:26 | Emergency Room Report ---
History of Present Illness General Chief Complaint: Dyspnea/Respdistress Source: Medical Record, PMD Present Illness Allergies: Coded Allergies: No Known Allergies (Unverified , 03/08/17) COVID-19 Screening Contact w/high risk pt: No Experienced COVID-19 symptoms?: Yes COVID-19 Testing performed [employer] COORDINATOR: Yes COVID-19 Screening: Positive COVID-19 COVID-19 Testing Source: 1 week ago Nursing Documentation-PMH Hx Cardiac Problems: No Hx Hypertension: Yes Hx Asthma: Yes Hx Cancer: No Hx Gastrointestinal Problems: No Hx Neurological Problems: No Physical Exam Vital Signs Date Time Temp Pulse Resp B/P (MAP) Pulse Ox O2 Delivery O2 Flow Rate FiO2 07/29/20 07:00 99 21 108/70 (83) 89 07/29/20 07:00 Mechanical Ventilator 100 07/29/20 08:00 15.0 07/29/20 12:28 100.9 Procedures Intubation Intubation : Consent: Emergent Intubation Method: orotracheal Tube Size (cm): 7.5 Medications: Succinylcholine Breath Sounds after Intubation: equal Intubation Complications: no complications Post Intubation Xray: Yes Progress/Xray Impression: ET tube in appropriate position Attempts: One Patient Tolerated: Well Complications: None Progress I was called to ICU to intubate a patient. Patient unfortunately had self extubated, and ET tube tube was dislodged. I did remove an existing endotracheal tube and placed a new ET tube at 23 cm at the lip. Placement confirmed by x-ray. Medical Decision Making Diagnostic Impression: Primary Impression: Acute respiratory distress syndrome (ARDS) due to 2019-nCoV Additional Impressions: Acute hypoxemic respiratory failure due to COVID-19 Obesity (BMI 30-39.9) HTN (hypertension) Diabetes Hypercapnia Hypoxia Asthma Last Vital Signs Date Time Temp Pulse Resp B/P (MAP) Pulse Ox O2 Delivery O2 Flow Rate FiO2 08/02/20 17:00 118 35 127/77 (94) 88 08/02/20 17:00 Mechanical Ventilator 100 08/02/20 15:00 99.7 07/31/20 16:30 15.0 Disposition: ADMITTED INPATIENT Condition: Critical Referrals: NOT CHOSEN IPA/,REFERRING (PCP) Abdirahman Hartley M.D. Aug 02, 2020 17:26
--- NOTE | 2020-08-02 18:16 | NUR ---
NURSE NOTES: Cleaned patient for moderate amount of dark brown soft loose BM. Turned and repositioned patient. Temp 99.8. Small amount of bleeding from mouth and nose noted. Right chest tube output 10ml. Brown emesis from NGT 400ml. Will continue to monitor.
--- NOTE | 2020-08-02 19:15 | NUR ---
NURSE HAND-OFF REPORT: Latest Vital Signs: Temperature 99.7 , Pulse 124 , B/P 140 /84 , Respiratory Rate 31 , O2 SAT 82 , Mechanical Ventilator, O2 Flow Rate . Vital Sign Comment: EKG Rhythm: Sinus Tachycardia Rhythm change?: N MD Notified?: MD Response: Latest Bradley Fall Score: 60 Fall Risk: High Risk Safety Measures: Call light Within Reach, Bed Alarm Zone 2, Side Rails Side Rails x2, Bed position Low and Locked. Fall Precautions: Yellow Socks Yellow Gown Door Sign Patient Fall Education Report given to Pina Shelby RN.
--- NOTE | 2020-08-02 19:30 | NUR ---
NURSE NOTES: Report received from Radha Toscano RN. Patient is sedated and reached RASS -2. ST on rn cardiac. Patient is afebrile after cooling measurement and Tylenol given per AMRN. ETT 7.5/24cm at lip line. Vent setting: AC 26, TV 500, FiO2 100%, Peep16. O2 sat 87-92%. RR 30's. Right chest tube in on low intermittent suction 20mmHg, draining serosang liquid. No leaks. No subcutaneous emphysema. Left NGT in place connected to low intermittent suction draining brown emesis. Biswas in place draining yellow urine to gravity. Pitting edema +1-2 on bilateral arms, hands, and feet noted. DANIEL PICC line patent and asymptomatic. Fentanyl and and Versed are running. Safety measures observed and no acute distress noted. will continue to monitor.
[2020-08-02] MEDS: Dyna-Hex 2% Top Sol 2oz TOPIC SCH (20:00)
[2020-08-02] MEDS: Vitamin D 1000 units Tab GT SCH (20:39)
--- NOTE | 2020-08-02 21:00 | NUR ---
NURSE NOTES: PM meds given [id number] and repositioned Oral care provided.
[2020-08-03] VITALS (24 sets, daily range): BP systolic 113–151; BP diastolic 66–90
--- NOTE | 2020-08-03 | NUR ---
NURSE NOTES: Patient remains sedated and reached RASS -2. 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 Patient is afebrile after cooling measurement and Tylenol given per AMRN. ETT 7.5/24cm at lip line. Vent setting: AC 26, TV 500, FiO2 100%, Peep16. O2 sat 87-92%. RR 30's. Right chest tube in on low intermittent suction 20mmHg, draining serosang liquid. No leaks. No subcutaneous emphysema. Left NGT in place connected to low intermittent suction draining brown emesis. Biswas in place draining yellow urine to gravity. Pitting edema +1-2 on bilateral arms, hands, and feet noted. DANIEL PICC line patent and asymptomatic. Fentanyl and and Versed are running. Safety measures observed and no acute distress noted. will continue to monitor.
--- NOTE | 2020-08-03 01:11 | Cardiology Progress Note ---
Subjective DATE OF SERVICE: Aug 02, 2020 Condition remains critical and prognosis guarded Increasingly hypoxic; worsening sinus tachycardia. S/P chest tube for PTX He remains on full vent support, on 100% FIO2 - orally intubated. Objective Last 24 Hour Vital Signs Date Time Temp Pulse Resp B/P (MAP) Pulse Ox O2 Delivery O2 Flow Rate FiO2 08/02/20 23:06 133 30 100 08/02/20 22:00 28 Mechanical Ventilator 100 08/02/20 19:01 124 31 100 08/02/20 19:00 130 31 140/84 (102) 82 08/02/20 19:00 31 140/84 Mechanical Ventilator 100 08/02/20 19:00 31 Mechanical Ventilator 100 08/02/20 18:00 30 120/70 Mechanical Ventilator 100 08/02/20 18:00 30 Mechanical Ventilator 100 08/02/20 18:00 123 30 137/87 (104) 86 08/02/20 17:00 118 35 127/77 (94) 88 08/02/20 17:00 30 136/87 Mechanical Ventilator 100 08/02/20 17:00 30 Mechanical Ventilator 100 08/02/20 16:59 30 Mechanical Ventilator 100 08/02/20 16:00 Mechanical Ventilator 08/02/20 16:00 115 29 90/76 (81) 85 08/02/20 16:00 30 132/71 Mechanical Ventilator 100 08/02/20 16:00 30 Mechanical Ventilator 100 08/02/20 16:00 100 08/02/20 15:23 127 08/02/20 15:11 104 34 100 08/02/20 15:00 15 158/96 Mechanical Ventilator 100 08/02/20 15:00 15 Mechanical Ventilator 100 08/02/20 15:00 99.7 98 15 158/96 (116) 79 08/02/20 15:00 100 08/02/20 14:00 31 146/84 Mechanical Ventilator 100 08/02/20 14:00 23 Mechanical Ventilator 100 08/02/20 14:00 117 30 150/83 (105) 88 08/02/20 13:00 124 34 149/85 (106) 88 08/02/20 13:00 31 149/85 Mechanical Ventilator 100 08/02/20 13:00 31 Mechanical Ventilator 100 08/02/20 12:30 123 34 148/84 (105) 88 08/02/20 12:01 124 08/02/20 12:00 100.3 118 30 141/87 (105) 88 08/02/20 12:00 100 08/02/20 12:00 30 144/80 Mechanical Ventilator 100 08/02/20 12:00 32 Mechanical Ventilator 100 08/02/20 12:00 Mechanical Ventilator 08/02/20 11:59 32 Mechanical Ventilator 100 08/02/20 11:00 124 30 151/85 (107) 87 08/02/20 11:00 33 147/85 Mechanical Ventilator 100 08/02/20 11:00 33 Mechanical Ventilator 100 08/02/20 11:00 124 30 151/85 (107) 87 08/02/20 10:40 128 31 100 08/02/20 10:00 34 147/84 Mechanical Ventilator 100 08/02/20 10:00 33 Mechanical Ventilator 100 08/02/20 10:00 99.7 128 36 147/84 (105) 87 08/02/20 09:45 132 37 149/84 (105) 87 08/02/20 09:00 31 142/87 Mechanical Ventilator 100 08/02/20 09:00 32 Mechanical Ventilator 100 08/02/20 09:00 132 37 149/84 (105) 87 08/02/20 08:51 99.7 08/02/20 08:45 135 23 142/87 (105) 88 08/02/20 08:45 31 142/87 Mechanical Ventilator 100 08/02/20 08:30 101.5 128 32 136/80 (98) 92 08/02/20 08:30 31 142/87 Mechanical Ventilator 100 08/02/20 08:15 29 125/83 Mechanical Ventilator 100 08/02/20 08:09 130 31 135/83 (100) 91 08/02/20 08:00 Mechanical Ventilator 08/02/20 08:00 130 31 135/83 (100) 90 08/02/20 08:00 100 08/02/20 08:00 32 Mechanical Ventilator 100 08/02/20 08:00 130 08/02/20 07:54 130 31 129/74 (92) 89 08/02/20 07:49 128 08/02/20 07:39 128 30 129/74 (92) 89 08/02/20 07:38 32 135/83 Mechanical Ventilator 100 08/02/20 07:00 31 Mechanical Ventilator 100 08/02/20 07:00 31 139/78 Mechanical Ventilator 91 08/02/20 07:00 128 31 139/78 (98) 91 08/02/20 06:30 133 43 100 08/02/20 06:00 98.9 125 30 140/78 (98) 91 08/02/20 06:00 30 08/02/20 06:00 30 140/78 Mechanical Ventilator 100 08/02/20 05:00 32 08/02/20 05:00 32 138/76 100 08/02/20 05:00 123 32 138/76 (96) 90 08/02/20 04:00 Mechanical Ventilator 08/02/20 04:00 126 33 135/79 (97) 91 08/02/20 04:00 100 08/02/20 04:00 33 08/02/20 04:00 33 135/79 Mechanical Ventilator 100 08/02/20 03:00 127 35 132/78 (96) 91 08/02/20 03:00 35 08/02/20 03:00 35 132/78 Mechanical Ventilator 100 08/02/20 02:40 123 37 100 08/02/20 02:00 123 30 141/79 (99) 91 08/02/20 02:00 20 Mechanical Ventilator 100 08/02/20 02:00 30 141/79 Mechanical Ventilator 100 HEENT: Orally intubated, Mechanically Ventilated, Thin secretions ET Tube RHYTHM: SB LUNGS: bilateral rhonchi CARDIAC: regular rhythm, normal S1 and S2, bradycardia ABDOMEN: normal bowel sounds, non tender, soft EXTREMITIES: normal range of motion, non-tender Laboratory Tests Test 08/02/20 05:10 08/02/20 08:23 08/02/20 08:27 08/02/20 10:42 White Blood Count 15.8 K/UL (4.8-10.8) H Red Blood Count 4.24 M/UL (4.70-6.10) L Hemoglobin 13.2 G/DL (14.2-18.0) L Hematocrit 40.4 % (42.0-52.0) L Mean Corpuscular Volume 95 FL (80-99) Mean Corpuscular Hemoglobin 31.2 PG (27.0-31.0) H Mean Corpuscular Hemoglobin Concent 32.8 G/DL (32.0-36.0) Red Cell Distribution Width 14.0 % (11.6-14.8) Platelet Count 175 K/UL (150-450) Mean Platelet Volume 7.2 FL (6.5-10.1) Neutrophils (%) (Auto) % (45.0-75.0) Lymphocytes (%) (Auto) % (20.0-45.0) Monocytes (%) (Auto) % (1.0-10.0) Eosinophils (%) (Auto) % (0.0-3.0) Basophils (%) (Auto) % (0.0-2.0) Differential Total Cells Counted 100 Neutrophils % (Manual) 90 % (45-75) H Lymphocytes % (Manual) 7 % (20-45) L Monocytes % (Manual) 3 % (1-10) Eosinophils % (Manual) 0 % (0-3) Basophils % (Manual) 0 % (0-2) Band Neutrophils 0 % (0-8) Platelet Estimate Adequate Platelet Morphology Normal Red Blood Cell Morphology Normal Sodium Level 141 MMOL/L (136-145) Potassium Level 4.2 MMOL/L (3.5-5.1) Chloride Level 100 MMOL/L (98-107) Carbon Dioxide Level 35 MMOL/L (21-32) H Anion Gap 6 mmol/L (5-15) Blood Urea Nitrogen 23 mg/dL (7-18) H Creatinine 0.6 MG/DL (0.55-1.30) Estimat Glomerular Filtration Rate > 60 mL/min (>60) Glucose Level 110 MG/DL (74-106) H Calcium Level 9.0 MG/DL (8.5-10.1) Total Bilirubin 1.0 MG/DL (0.2-1.0) Aspartate Amino Transf (AST/SGOT) 61 U/L (15-37) H Alanine Aminotransferase (ALT/SGPT) 45 U/L (12-78) Alkaline Phosphatase 113 U/L (46-116) Total Protein 6.7 G/DL (6.4-8.2) Albumin 2.0 G/DL (3.4-5.0) L Globulin 4.7 g/dL Albumin/Globulin Ratio 0.4 (1.0-2.7) L Triglycerides Level 240 MG/DL (30-150) H Arterial Blood pH 7.411 (7.350-7.450) Arterial Blood Partial Pressure CO2 55.9 mmHg (35.0-45.0) *H Arterial Blood Partial Pressure O2 mmHg (75.0-100.0) Arterial Blood HCO3 34.7 mmol/L (22.0-26.0) H Arterial Blood Oxygen Saturation 88.2 % (95-100) *L Arterial Blood Base Excess 8.2 (-2-2) H Jacob Test Positive POC Whole Blood Glucose Pending Vancomycin Level Trough 9.5 ug/mL (5.0-12.0) Test 08/02/20 12:08 08/02/20 16:30 08/02/20 17:15 POC Whole Blood Glucose Pending Pending Arterial Blood pH 7.396 (7.350-7.450) Arterial Blood Partial Pressure CO2 56.8 mmHg (35.0-45.0) *H Arterial Blood Partial Pressure O2 48.1 mmHg (75.0-100.0) Arterial Blood HCO3 34.1 mmol/L (22.0-26.0) H Arterial Blood Oxygen Saturation 82.9 % (95-100) *L Arterial Blood Base Excess 7.4 (-2-2) H Jacob Test Positive Assessment/Plan Assessment/Plan Covid 19 PNA s/p PTX Secondary sinus tachycardia K.pneumonia PNA Acute respiratory failure with severe Hypoxia Sinus bradycardia resolved Diabetes mellitus with hyperglycemia due to steroids Transaminitis Mod protein/calorie malnutrition CRITICAL & GUARDED Chest tube management Abx per ID Continuous cardiac monitoring Anticoagulation and steroid rx Titrate oxygen as able; prone. Vent settings adjusted by pulmonary Anti-viral rx Protein suppl Insulin cov'g by SS; levemir dose advanced further. Chuck Swain MD Aug 03, 2020 01:11
--- NOTE | 2020-08-03 02:00 | NUR ---
NURSE NOTES: AM care given. Turned and repositioned Oral care provided.
--- NOTE | 2020-08-03 02:11 | Cardiology Report ---
APPROVED REPORT EKG Measurement Heart [id number] <Conclusion> Normal sinus rhythm Incomplete right bundle branch block Borderline ECG
[2020-08-03] MEDS: Vancomycin 1.25gm Premix IVPB SCH ×3 (03:00→20:58)
--- NOTE | 2020-08-03 04:00 | NUR ---
NURSE NOTES: BP has been unstable. Ups and Downs without giving bolus or pressor. No prone position tonight. Oral care provided.
[2020-08-03] MEDS: Midazolam HCl 50mg/10ml vial 100 MG in NS 180 ML IV PRN ×3 (05:00→22:08)
[2020-08-03 05:37] LABS: HEMATOCRIT 41.3 % (42.0-52.0); HEMOGLOBIN 13.3 G/DL (14.2-18.0); MEAN CORPUSCULAR VOLUME 97 FL (80-99); PLATELET COUNT 206 K/UL (150-450); RED BLOOD COUNT 4.25 M/UL (4.70-6.10); RED CELL DISTRIBUTION WIDTH 13.8 % (11.6-14.8); WHITE BLOOD COUNT 16.7 K/UL (4.8-10.8)
[2020-08-03 05:57] LABS: ALANINE AMINOTRANSFERASE 40 U/L (12-78); ALBUMIN 1.9 G/DL (3.4-5.0); ALBUMIN/GLOBULIN RATIO 0.4 (1.0-2.7); ALKALINE PHOSPHATASE 100 U/L (46-116); ANION GAP -2 mmol/L (5-15); ASPARTATE AMINO TRANSFERASE 51 U/L (15-37); BILIRUBIN,TOTAL 0.7 MG/DL (0.2-1.0); BLOOD UREA NITROGEN 22 mg/dL (7-18); CALCIUM 8.6 MG/DL (8.5-10.1); CARBON DIOXIDE 38 MMOL/L (21-32); CHLORIDE 107 MMOL/L (98-107); CREATININE 0.6 MG/DL (0.55-1.30); POTASSIUM 4.6 MMOL/L (3.5-5.1); SODIUM 143 MMOL/L (136-145)
[2020-08-03] MEDS: NovoLOG Insulin Flexpen SUBQ SCH ×5 (06:00→17:36)
--- NOTE | 2020-08-03 06:56 | NUR ---
CASE MANAGEMENT:REVIEW 08/03/20 SI: COVID PNA. ACUTE RESPIRATORY FAILURE~INTUBATED ARDS. PNEUMOTHORAX ~ CHEST TUBE TO SUCTION 96.4 124 33 123/76 SAT 93% ON VENT SUPPORT W/100% FIO2 WBC+16.7 H/H-13.3/41.3 IS: FENTANYL GTT VERSED GTT PRN IV ROCEPHIN Q24 IV VANCOMYCIN Q8HRS IV SOLUMEDROL Q12 IV PROTONIX QD IVF@60/HR LOVENOX SQ Q12 : ICU STATUS DCP: FROM HOME PLAN: CHEST TUBE TO SUCTION NG TUBE TO LIS ~ BROWNISH DRAINAGE WORSENING CHEST XRAY ~ UNABLE TO WEAN ~ POOR PROGNOSIS
--- NOTE | 2020-08-03 07:10 | NUR ---
NURSE NOTES: Report received from Pina Shelby RN. Patient is sedated in bed. RASS -2. ST on secured entrance monitor with HR 120's. ETT 7.5/24cm at lip line. AC 26, TV 500, FiO2 100%, P 16. O2 sat 91-94%. RR 20's. Right chest tube in on low intermittent suction 20mmHg as ordered, draining small amount of serosang liquid. No leaks noted. Left NGT in place connected to low intermittent suction draining brown emesis. Biswas in place draining yellow urine to gravity. Pitting edema +1-2 on bilateral arms, hands, and feet noted. DANIEL PICC line patent and asymptomatic. Versed is running at 20mg/hr and Fentanyl at 30mcg/hr. Bed in lowest position. Side rails up x3. Will resume plan of care.
[2020-08-03] MEDS: fentaNYL 2500mcg/NS 250ml 250 ML IV SCH (07:45)
--- NOTE | 2020-08-03 08:00 | NUR ---
NURSE NOTES: Titrated down and completely turned off Fentanyl drip at 0745 to reach goal RASS score -2. Patient is on Versed at 20mg/hr. RASS -2. Will keep the rate.
[2020-08-03] MEDS: Enoxaparin 40mg Inj SUBQ SCH ×2 (09:00→21:00)
[2020-08-03] MEDS: Docusate 100mg/10ml Liq NG SCH ×2 (09:05→20:55)
[2020-08-03] MEDS: Vitamin B Complex Tab NG SCH (09:05)
[2020-08-03] MEDS: Solu-MEDROL 40mg Inj IVP SCH ×2 (09:05→20:56)
[2020-08-03] MEDS: Pantoprazole Inj IVP SCH (09:05)
[2020-08-03] MEDS: Ascorbic Acid 500mg tab NG SCH ×2 (09:05→20:56)
--- NOTE | 2020-08-03 09:16 | General Progress Note ---
Subjective ROS Limited/Unobtainable: Yes Constitutional: Reports: malaise, weakness HEENT: Reports: no symptoms Cardiovascular: Reports: no symptoms Respiratory: Reports: no symptoms Gastrointestinal/Abdominal: Reports: difficulty swallowing Genitourinary: Reports: no symptoms Neurologic/Psychiatric: Reports: no symptoms Endocrine: Reports: no symptoms Hematologic/Lymphatic: Reports: no symptoms Allergies: Coded Allergies: No Known Allergies (Unverified , 03/08/17) All Systems: reviewed and negative except above Subjective no change. stable on the vent. +chest tube. Po2/sats still low. Objective Last 24 Hour Vital Signs Date Time Temp Pulse Resp B/P (MAP) Pulse Ox O2 Delivery O2 Flow Rate FiO2 08/03/20 08:00 100 08/03/20 08:00 121 27 128/66 (86) 91 08/03/20 08:00 27 Mechanical Ventilator 100 08/03/20 07:45 26 109/67 Mechanical Ventilator 100 08/03/20 07:30 26 110/67 Mechanical Ventilator 100 08/03/20 07:15 26 119/70 Mechanical Ventilator 100 08/03/20 07:00 28 131/74 Mechanical Ventilator 100 08/03/20 07:00 28 Mechanical Ventilator 100 08/03/20 07:00 125 28 131/74 (93) 94 08/03/20 06:00 26 143/90 Mechanical Ventilator 100 08/03/20 06:00 26 Mechanical Ventilator 100 08/03/20 06:00 98.5 125 26 143/90 (107) 92 08/03/20 05:00 124 28 128/76 (93) 93 08/03/20 05:00 33 123/76 Mechanical Ventilator 100 08/03/20 05:00 33 Mechanical Ventilator 100 08/03/20 04:00 Mechanical Ventilator 08/03/20 04:00 124 25 123/74 (90) 90 08/03/20 04:00 25 123/74 Mechanical Ventilator 100 08/03/20 04:00 25 Mechanical Ventilator 100 08/03/20 04:00 124 08/03/20 04:00 100 08/03/20 03:10 133 32 100 08/03/20 03:00 123 27 140/74 (96) 93 08/03/20 03:00 27 140/74 Mechanical Ventilator 100 08/03/20 03:00 27 Mechanical Ventilator 100 08/03/20 02:00 26 127/79 Mechanical Ventilator 100 08/03/20 02:00 26 Mechanical Ventilator 100 08/03/20 02:00 121 26 127/79 (95) 92 08/03/20 01:00 29 126/73 Mechanical Ventilator 100 08/03/20 01:00 29 Mechanical Ventilator 100 08/03/20 01:00 125 29 126/73 (90) 92 08/03/20 00:00 127 27 128/76 (93) 91 08/03/20 00:00 27 128/76 Mechanical Ventilator 100 08/03/20 00:00 27 100 08/03/20 00:00 Mechanical Ventilator 08/03/20 00:00 100 08/03/20 00:00 127 08/02/20 23:06 133 30 100 08/02/20 23:00 124 27 141/75 (97) 89 08/02/20 23:00 27 141/75 Mechanical Ventilator 100 08/02/20 23:00 27 Mechanical Ventilator 100 08/02/20 22:00 123 28 132/77 (95) 89 08/02/20 22:00 28 132/77 Mechanical Ventilator 100 08/02/20 22:00 28 Mechanical Ventilator 100 08/02/20 21:00 29 136/79 Mechanical Ventilator 100 08/02/20 21:00 29 Mechanical Ventilator 100 08/02/20 21:00 130 29 136/79 (98) 88 08/02/20 20:00 128 08/02/20 20:00 100 08/02/20 20:00 128 29 140/84 (102) 87 08/02/20 20:00 29 140/84 Mechanical Ventilator 100 08/02/20 20:00 29 Mechanical Ventilator 100 08/02/20 20:00 Mechanical Ventilator 08/02/20 19:01 124 31 100 08/02/20 19:00 130 31 140/84 (102) 82 08/02/20 19:00 31 140/84 Mechanical Ventilator 100 08/02/20 19:00 31 Mechanical Ventilator 100 08/02/20 18:00 30 120/70 Mechanical Ventilator 100 08/02/20 18:00 30 Mechanical Ventilator 100 08/02/20 18:00 123 30 137/87 (104) 86 08/02/20 17:00 118 35 127/77 (94) 88 08/02/20 17:00 30 136/87 Mechanical Ventilator 100 08/02/20 17:00 30 Mechanical Ventilator 100 08/02/20 16:59 30 Mechanical Ventilator 100 08/02/20 16:00 Mechanical Ventilator 08/02/20 16:00 115 29 90/76 (81) 85 08/02/20 16:00 30 132/71 Mechanical Ventilator 100 08/02/20 16:00 30 Mechanical Ventilator 100 08/02/20 16:00 100 08/02/20 15:23 127 08/02/20 15:11 104 34 100 08/02/20 15:00 15 158/96 Mechanical Ventilator 100 08/02/20 15:00 15 Mechanical Ventilator 100 08/02/20 15:00 99.7 98 15 158/96 (116) 79 08/02/20 15:00 100 08/02/20 14:00 31 146/84 Mechanical Ventilator 100 08/02/20 14:00 23 Mechanical Ventilator 100 08/02/20 14:00 117 30 150/83 (105) 88 08/02/20 13:00 124 34 149/85 (106) 88 08/02/20 13:00 31 149/85 Mechanical Ventilator 100 08/02/20 13:00 31 Mechanical Ventilator 100 08/02/20 12:30 123 34 148/84 (105) 88 08/02/20 12:01 124 08/02/20 12:00 100.3 118 30 141/87 (105) 88 08/02/20 12:00 100 08/02/20 12:00 30 144/80 Mechanical Ventilator 100 08/02/20 12:00 32 Mechanical Ventilator 100 08/02/20 12:00 Mechanical Ventilator 08/02/20 11:59 32 Mechanical Ventilator 100 08/02/20 11:00 124 30 151/85 (107) 87 08/02/20 11:00 33 147/85 Mechanical Ventilator 100 08/02/20 11:00 33 Mechanical Ventilator 100 08/02/20 11:00 124 30 151/85 (107) 87 08/02/20 10:40 128 31 100 08/02/20 10:00 34 147/84 Mechanical Ventilator 100 08/02/20 10:00 33 Mechanical Ventilator 100 08/02/20 10:00 99.7 128 36 147/84 (105) 87 08/02/20 09:45 132 37 149/84 (105) 87 Intake and Output 08/02/20 08/03/20 18:59 06:59 Intake Total 827.4356 ml 436 ml Output Total 1195 ml 280 ml Balance -367.5644 ml 156 ml IV Total 827.4356 ml 436 ml Tube Feeding 0 ml Output Urine Total 715 ml 280 ml Gastric Drainage Total 460 ml Chest Tube Drainage Total 20 ml # Bowel Movements 2 Laboratory Tests 08/02/20 10:42: Vancomycin Level Trough 9.5 08/02/20 12:08: POC Whole Blood Glucose [Pending] 08/02/20 16:30: Arterial Blood pH 7.396, Arterial Blood Partial Pressure CO2 56.8*H, Arterial Blood Partial Pressure O2 48.1*L, Arterial Blood HCO3 34.1H, Arterial Blood Oxygen Saturation 82.9*L, Arterial Blood Base Excess 7.4H, Jacob Test Positive 08/02/20 17:15: POC Whole Blood Glucose [Pending] 08/03/20 03:40: White Blood Count 16.7H, Red Blood Count 4.25L, Hemoglobin 13.3L, Hematocrit 41.3L, Mean Corpuscular Volume 97, Mean Corpuscular Hemoglobin 31.2H, Mean Corpuscular Hemoglobin Concent 32.1, Red Cell Distribution Width 13.8, Platelet Count 206, Mean Platelet Volume 7.4, Neutrophils (%) (Auto) , Lymphocytes (%) (Auto) , Monocytes (%) (Auto) , Eosinophils (%) (Auto) , Basophils (%) (Auto) , Neutrophils % (Manual) [Pending], Lymphocytes % (Manual) [Pending], Platelet Estimate [Pending], Platelet Morphology [Pending], Prothrombin Time 11.4, Prothromb Time International Ratio 1.0, Activated Partial Thromboplast Time 27, Sodium Level 143, Potassium Level 4.6, Chloride Level 107, Carbon Dioxide Level 38H, Anion Gap -2L, Blood Urea Nitrogen 22H, Creatinine 0.6, Estimat Glomerular Filtration Rate > 60, Glucose Level 140H, Calcium Level 8.6, Total Bilirubin 0.7, Aspartate Amino Transf (AST/SGOT) 51H, Alanine Aminotransferase (ALT/SGPT) 40, Alkaline Phosphatase 100, Total Protein 6.5, Albumin 1.9L, Globulin 4.6, Albumin/Globulin Ratio 0.4L Height (Feet): 5 Height (Inches): 6.00 Weight (Pounds): 209 Objective deferred Assessment/Plan Problem List: (1) Coronavirus infection ICD Codes: B34.2 - Coronavirus infection, unspecified SNOMED: [id number] Status: not improved Assessment/Plan: vent support resp care wean fio2 as able dvt/stress ulcer prophylaxis per surgery too unstable for trach. Rolando Cherry MD Aug 03, 2020 09:16
[2020-08-03] MEDS: Acetaminophen 650mg/20.3ml NG PRN ×2 (09:36→20:56)
--- NOTE | 2020-08-03 09:36 | NUR ---
NURSE NOTES: PRN Tylenol 650mg given via NGT for fever 100.9. Will reassess temp later.
[2020-08-03] MEDS: Levemir Flexpen SUBQ SCH ×2 (09:55→20:59)
[2020-08-03] MEDS ORDERED: Midazolam HCl 50mg/10ml vial 50 MG in NS 90 ML IV PRN (10:00)
[2020-08-03] MEDS ORDERED: MIDAZOLAM HCL IV PRN (10:30)
[2020-08-03] MEDS ORDERED: NS IV PRN (10:30)
--- NOTE | 2020-08-03 10:36 | NUR ---
NURSE NOTES: Temp rechecked. Oral temp 100.4. Turned and repositioned patient. NGT connected to low intermittent suction, draining dark brown emesis. Right chest tube connected to low intermittent suction draining serosang drainage. Will continue to monitor.
--- NOTE | 2020-08-03 12:13 | Diagnostic Imaging Report ---
Indication: Shortness of breath Technique: One view of the chest Comparison: 08/02/2020 Findings: Stable satisfactory tube and line positions. Bilateral infiltrates are unchanged. The stomach has decompressed in the interim. Impression: Unchanged, over one day, findings as above.
--- NOTE | 2020-08-03 12:51 | NUR ---
NURSE NOTES: Dr Butler here to see the patient. Updated him with patient's current condition. Orders will be entered by him. HR 113. Afebrile. BP 113/66. Versed is running at 20mg/hr. Will keep the same rate because RASS is -2. Will continue to monitor.
--- NOTE | 2020-08-03 12:51 | Surgery Progress Note ---
Surgery Progress Note Subjective Procedure Performed right chest tube insertion Additional Comments Patient seen and examined bedside. Ill-appearing on support intubated weaning vent as tolerated but difficult at times. Labs noted imaging reviewed. Objective Last 24 Hour Vital Signs Date Time Temp Pulse Resp B/P (MAP) Pulse Ox O2 Delivery O2 Flow Rate FiO2 08/03/20 12:00 99.7 128 27 137/73 (94) 92 08/03/20 11:00 132 28 144/79 (100) 92 08/03/20 11:00 28 Mechanical Ventilator 100 08/03/20 10:06 100.3 08/03/20 10:00 34 Mechanical Ventilator 100 08/03/20 10:00 100.4 134 28 147/81 (103) 93 08/03/20 09:59 28 Mechanical Ventilator 100 08/03/20 09:00 100.9 130 27 136/83 (100) 93 08/03/20 09:00 27 Mechanical Ventilator 100 08/03/20 08:00 100 08/03/20 08:00 121 27 128/66 (86) 91 08/03/20 08:00 Mechanical Ventilator 08/03/20 08:00 27 Mechanical Ventilator 100 08/03/20 07:45 26 109/67 Mechanical Ventilator 100 08/03/20 07:30 26 110/67 Mechanical Ventilator 100 08/03/20 07:15 26 119/70 Mechanical Ventilator 100 08/03/20 07:00 28 131/74 Mechanical Ventilator 100 08/03/20 07:00 28 Mechanical Ventilator 100 08/03/20 07:00 125 28 131/74 (93) 94 08/03/20 06:00 26 143/90 Mechanical Ventilator 100 08/03/20 06:00 26 Mechanical Ventilator 100 08/03/20 06:00 98.5 125 26 143/90 (107) 92 08/03/20 05:00 124 28 128/76 (93) 93 08/03/20 05:00 33 123/76 Mechanical Ventilator 100 08/03/20 05:00 33 Mechanical Ventilator 100 08/03/20 04:00 Mechanical Ventilator 08/03/20 04:00 124 25 123/74 (90) 90 08/03/20 04:00 25 123/74 Mechanical Ventilator 100 08/03/20 04:00 25 Mechanical Ventilator 100 08/03/20 04:00 124 08/03/20 04:00 100 08/03/20 03:10 133 32 100 08/03/20 03:00 123 27 140/74 (96) 93 08/03/20 03:00 27 140/74 Mechanical Ventilator 100 08/03/20 03:00 27 Mechanical Ventilator 100 08/03/20 02:00 26 127/79 Mechanical Ventilator 100 08/03/20 02:00 26 Mechanical Ventilator 100 08/03/20 02:00 121 26 127/79 (95) 92 08/03/20 01:00 29 126/73 Mechanical Ventilator 100 08/03/20 01:00 29 Mechanical Ventilator 100 08/03/20 01:00 125 29 126/73 (90) 92 08/03/20 00:00 127 27 128/76 (93) 91 08/03/20 00:00 27 128/76 Mechanical Ventilator 100 08/03/20 00:00 27 100 08/03/20 00:00 Mechanical Ventilator 08/03/20 00:00 100 08/03/20 00:00 127 08/02/20 23:06 133 30 100 08/02/20 23:00 124 27 141/75 (97) 89 08/02/20 23:00 27 141/75 Mechanical Ventilator 100 08/02/20 23:00 27 Mechanical Ventilator 100 08/02/20 22:00 123 28 132/77 (95) 89 08/02/20 22:00 28 132/77 Mechanical Ventilator 100 08/02/20 22:00 28 Mechanical Ventilator 100 08/02/20 21:00 29 136/79 Mechanical Ventilator 100 08/02/20 21:00 29 Mechanical Ventilator 100 08/02/20 21:00 130 29 136/79 (98) 88 08/02/20 20:00 128 08/02/20 20:00 100 08/02/20 20:00 128 29 140/84 (102) 87 08/02/20 20:00 29 140/84 Mechanical Ventilator 100 08/02/20 20:00 29 Mechanical Ventilator 100 08/02/20 20:00 Mechanical Ventilator 08/02/20 19:01 124 31 100 08/02/20 19:00 130 31 140/84 (102) 82 08/02/20 19:00 31 140/84 Mechanical Ventilator 100 08/02/20 19:00 31 Mechanical Ventilator 100 08/02/20 18:00 30 120/70 Mechanical Ventilator 100 08/02/20 18:00 30 Mechanical Ventilator 100 08/02/20 18:00 123 30 137/87 (104) 86 08/02/20 17:00 118 35 127/77 (94) 88 08/02/20 17:00 30 136/87 Mechanical Ventilator 100 08/02/20 17:00 30 Mechanical Ventilator 100 08/02/20 16:59 30 Mechanical Ventilator 100 08/02/20 16:00 Mechanical Ventilator 08/02/20 16:00 115 29 90/76 (81) 85 08/02/20 16:00 30 132/71 Mechanical Ventilator 100 08/02/20 16:00 30 Mechanical Ventilator 100 08/02/20 16:00 100 08/02/20 15:23 127 08/02/20 15:11 104 34 100 08/02/20 15:00 15 158/96 Mechanical Ventilator 100 08/02/20 15:00 15 Mechanical Ventilator 100 08/02/20 15:00 99.7 98 15 158/96 (116) 79 08/02/20 15:00 100 08/02/20 14:00 31 146/84 Mechanical Ventilator 100 08/02/20 14:00 23 Mechanical Ventilator 100 08/02/20 14:00 117 30 150/83 (105) 88 08/02/20 13:00 124 34 149/85 (106) 88 08/02/20 13:00 31 149/85 Mechanical Ventilator 100 08/02/20 13:00 31 Mechanical Ventilator 100 I&O Intake and Output 08/02/20 08/03/20 19:00 07:00 Intake Total 861.9036 ml 436 ml Output Total 1095 ml 290 ml Balance -233.0964 ml 146 ml IV Total 861.9036 ml 436 ml Output Urine Total 685 ml 290 ml Gastric Drainage Total 400 ml Chest Tube Drainage Total 10 ml # Bowel Movements 2 Dressing: saturated Cardiovascular: RSR Respiratory: decreased breath sounds Abdomen: soft, non-tender, present bowel sounds, non-distended Extremities: no tenderness, no cyanosis Laboratory Tests Test 08/02/20 16:30 08/02/20 17:15 08/03/20 03:40 08/03/20 09:42 Arterial Blood pH 7.396 (7.350-7.450) Arterial Blood Partial Pressure CO2 56.8 mmHg (35.0-45.0) *H Arterial Blood Partial Pressure O2 48.1 mmHg (75.0-100.0) Arterial Blood HCO3 34.1 mmol/L (22.0-26.0) H Arterial Blood Oxygen Saturation 82.9 % (95-100) *L Arterial Blood Base Excess 7.4 (-2-2) H Jacob Test Positive POC Whole Blood Glucose Pending Pending White Blood Count 16.7 K/UL (4.8-10.8) H Red Blood Count 4.25 M/UL (4.70-6.10) L Hemoglobin 13.3 G/DL (14.2-18.0) L Hematocrit 41.3 % (42.0-52.0) L Mean Corpuscular Volume 97 FL (80-99) Mean Corpuscular Hemoglobin 31.2 PG (27.0-31.0) H Mean Corpuscular Hemoglobin Concent 32.1 G/DL (32.0-36.0) Red Cell Distribution Width 13.8 % (11.6-14.8) Platelet Count 206 K/UL (150-450) Mean Platelet Volume 7.4 FL (6.5-10.1) Neutrophils (%) (Auto) % (45.0-75.0) Lymphocytes (%) (Auto) % (20.0-45.0) Monocytes (%) (Auto) % (1.0-10.0) Eosinophils (%) (Auto) % (0.0-3.0) Basophils (%) (Auto) % (0.0-2.0) Differential Total Cells Counted 100 Neutrophils % (Manual) 94 % (45-75) H Lymphocytes % (Manual) 5 % (20-45) L Monocytes % (Manual) 1 % (1-10) Eosinophils % (Manual) 0 % (0-3) Basophils % (Manual) 0 % (0-2) Band Neutrophils 0 % (0-8) Platelet Estimate Adequate Platelet Morphology Normal Macrocytosis 1+ Prothrombin Time 11.4 SEC (9.30-11.50) Prothromb Time International Ratio 1.0 (0.9-1.1) Activated Partial Thromboplast Time 27 SEC (23-33) Sodium Level 143 MMOL/L (136-145) Potassium Level 4.6 MMOL/L (3.5-5.1) Chloride Level 107 MMOL/L (98-107) Carbon Dioxide Level 38 MMOL/L (21-32) H Anion Gap -2 mmol/L (5-15) L Blood Urea Nitrogen 22 mg/dL (7-18) H Creatinine 0.6 MG/DL (0.55-1.30) Estimat Glomerular Filtration Rate > 60 mL/min (>60) Glucose Level 140 MG/DL (74-106) H Calcium Level 8.6 MG/DL (8.5-10.1) Total Bilirubin 0.7 MG/DL (0.2-1.0) Aspartate Amino Transf (AST/SGOT) 51 U/L (15-37) H Alanine Aminotransferase (ALT/SGPT) 40 U/L (12-78) Alkaline Phosphatase 100 U/L (46-116) Total Protein 6.5 G/DL (6.4-8.2) Albumin 1.9 G/DL (3.4-5.0) L Globulin 4.6 g/dL Albumin/Globulin Ratio 0.4 (1.0-2.7) L Test 08/03/20 12:06 POC Whole Blood Glucose Pending Plan Problems: (1) Pneumothorax Assessment & Plan: 31M covid on vent peep 16 fi02 100 right ptx s/p right chest tube ett complication replaced 07/01 chest tube vac replaced this AM as well given malfunction high risk low tv cxr noted ill appearing tube and lines checked will need to monitor closely unable to wean vent at this time cont current care plan (2) Respiratory failure (3) Coronavirus infection (4) Diabetes (5) Hypercapnia (6) Hypoxia (7) Asthma (8) HTN (hypertension) (9) Obesity (BMI 30-39.9) (10) Acute respiratory distress syndrome (ARDS) due to 2019-nCoV (11) Acute hypoxemic respiratory failure due to COVID-19 (12) Bradycardia (13) Laceration Mulugeta Butler Aug 03, 2020 12:51
--- NOTE | 2020-08-03 13:39 | NUR ---
RADIOLOGY DEPT., CHEST X-RAY DONE.-P.DYE
--- NOTE | 2020-08-03 14:00 | NUR ---
NURSE NOTES: Dr Alberto here to see the patient. Updated her with patient's current condition including fever. Awaiting new orders to be entered.
--- NOTE | 2020-08-03 15:58 | Pulmonology Progress Note ---
Subjective ROS Limited/Unobtainable: Yes Gastrointestinal/Abdominal: Denies: nausea, vomiting, diarrhea Musculoskeletal: Denies: pain Allergies: Coded Allergies: No Known Allergies (Unverified , 03/08/17) All Systems: reviewed and negative except above Subjective not improved on high oxygen on vent now full code Objective Last 24 Hour Vital Signs Date Time Temp Pulse Resp B/P (MAP) Pulse Ox O2 Delivery O2 Flow Rate FiO2 08/03/20 14:00 115 27 132/79 (96) 94 08/03/20 14:00 28 Mechanical Ventilator 100 08/03/20 13:45 121 27 100 08/03/20 13:00 113 25 113/66 (82) 93 08/03/20 13:00 27 Mechanical Ventilator 100 08/03/20 12:00 100 08/03/20 12:00 Mechanical Ventilator 08/03/20 12:00 28 Mechanical Ventilator 100 08/03/20 12:00 99.7 128 27 137/73 (94) 92 08/03/20 12:00 125 08/03/20 11:00 132 28 144/79 (100) 92 08/03/20 11:00 28 Mechanical Ventilator 100 08/03/20 10:06 100.3 08/03/20 10:00 34 Mechanical Ventilator 100 08/03/20 10:00 100.4 134 28 147/81 (103) 93 08/03/20 09:59 28 Mechanical Ventilator 100 08/03/20 09:00 100.9 130 27 136/83 (100) 93 08/03/20 09:00 27 Mechanical Ventilator 100 08/03/20 08:00 100 08/03/20 08:00 121 27 128/66 (86) 91 08/03/20 08:00 128 08/03/20 08:00 Mechanical Ventilator 08/03/20 08:00 27 Mechanical Ventilator 100 08/03/20 07:45 26 109/67 Mechanical Ventilator 100 08/03/20 07:30 26 110/67 Mechanical Ventilator 100 08/03/20 07:25 125 29 100 08/03/20 07:15 26 119/70 Mechanical Ventilator 100 08/03/20 07:00 28 131/74 Mechanical Ventilator 100 08/03/20 07:00 28 Mechanical Ventilator 100 08/03/20 07:00 125 28 131/74 (93) 94 08/03/20 06:00 26 143/90 Mechanical Ventilator 100 08/03/20 06:00 26 Mechanical Ventilator 100 08/03/20 06:00 98.5 125 26 143/90 (107) 92 08/03/20 05:00 124 28 128/76 (93) 93 08/03/20 05:00 33 123/76 Mechanical Ventilator 100 08/03/20 05:00 33 Mechanical Ventilator 100 08/03/20 04:00 Mechanical Ventilator 08/03/20 04:00 124 25 123/74 (90) 90 08/03/20 04:00 25 123/74 Mechanical Ventilator 100 08/03/20 04:00 25 Mechanical Ventilator 100 08/03/20 04:00 124 08/03/20 04:00 100 08/03/20 03:10 133 32 100 08/03/20 03:00 123 27 140/74 (96) 93 08/03/20 03:00 27 140/74 Mechanical Ventilator 100 08/03/20 03:00 27 Mechanical Ventilator 100 08/03/20 02:00 26 127/79 Mechanical Ventilator 100 08/03/20 02:00 26 Mechanical Ventilator 100 08/03/20 02:00 121 26 127/79 (95) 92 08/03/20 01:00 29 126/73 Mechanical Ventilator 100 08/03/20 01:00 29 Mechanical Ventilator 100 08/03/20 01:00 125 29 126/73 (90) 92 08/03/20 00:00 127 27 128/76 (93) 91 08/03/20 00:00 27 128/76 Mechanical Ventilator 100 08/03/20 00:00 27 100 08/03/20 00:00 Mechanical Ventilator 08/03/20 00:00 100 08/03/20 00:00 127 08/02/20 23:06 133 30 100 08/02/20 23:00 124 27 141/75 (97) 89 08/02/20 23:00 27 141/75 Mechanical Ventilator 100 08/02/20 23:00 27 Mechanical Ventilator 100 08/02/20 22:00 123 28 132/77 (95) 89 08/02/20 22:00 28 132/77 Mechanical Ventilator 100 08/02/20 22:00 28 Mechanical Ventilator 100 08/02/20 21:00 29 136/79 Mechanical Ventilator 100 08/02/20 21:00 29 Mechanical Ventilator 100 08/02/20 21:00 130 29 136/79 (98) 88 08/02/20 20:00 128 08/02/20 20:00 100 08/02/20 20:00 128 29 140/84 (102) 87 08/02/20 20:00 29 140/84 Mechanical Ventilator 100 08/02/20 20:00 29 Mechanical Ventilator 100 08/02/20 20:00 Mechanical Ventilator 08/02/20 19:01 124 31 100 08/02/20 19:00 130 31 140/84 (102) 82 08/02/20 19:00 31 140/84 Mechanical Ventilator 100 08/02/20 19:00 31 Mechanical Ventilator 100 08/02/20 18:00 30 120/70 Mechanical Ventilator 100 08/02/20 18:00 30 Mechanical Ventilator 100 08/02/20 18:00 123 30 137/87 (104) 86 08/02/20 17:00 118 35 127/77 (94) 88 08/02/20 17:00 30 136/87 Mechanical Ventilator 100 08/02/20 17:00 30 Mechanical Ventilator 100 08/02/20 16:59 30 Mechanical Ventilator 100 08/02/20 16:00 Mechanical Ventilator 08/02/20 16:00 115 29 90/76 (81) 85 08/02/20 16:00 30 132/71 Mechanical Ventilator 100 08/02/20 16:00 30 Mechanical Ventilator 100 08/02/20 16:00 100 Intake and Output 08/02/20 08/03/20 19:00 07:00 Intake Total 861.9036 ml 436 ml Output Total 1095 ml 290 ml Balance -233.0964 ml 146 ml IV Total 861.9036 ml 436 ml Output Urine Total 685 ml 290 ml Gastric Drainage Total 400 ml Chest Tube Drainage Total 10 ml # Bowel Movements 2 Objective deferred due to COVID Laboratory Tests 08/02/20 16:30: Arterial Blood pH 7.396, Arterial Blood Partial Pressure CO2 56.8*H, Arterial Blood Partial Pressure O2 48.1*L, Arterial Blood HCO3 34.1H, Arterial Blood O xygen Saturation 82.9*L, Arterial Blood Base Excess 7.4H, Jacob Test Positive 08/02/20 17:15: POC Whole Blood Glucose [Pending] 08/03/20 03:40: White Blood Count 16.7H, Red Blood Count 4.25L, Hemoglobin 13.3L, Hematocrit 41.3L, Mean Corpuscular Volume 97, Mean Corpuscular Hemoglobin 31.2H, Mean Corpuscular Hemoglobin Concent 32.1, Red Cell Distribution Width 13.8, Platelet Count 206, Mean Platelet Volume 7.4, Neutrophils (%) (Auto) , Lymphocytes (%) (Auto) , Monocytes (%) (Auto) , Eosinophils (%) (Auto) , Basophils (%) (Auto) , Differential Total Cells Counted 100, Neutrophils % (Manual) 94H, Lymphocytes % (Manual) 5L, Monocytes % (Manual) 1, Eosinophils % (Manual) 0, Basophils % (Manual) 0, Band Neutrophils 0, Platelet Estimate Adequate, Platelet Morphology Normal, Macrocytosis 1+, Prothrombin Time 11.4, Prothromb Time International Ratio 1.0, Activated Partial Thromboplast Time 27, Sodium Level 143, Potassium Level 4.6, Chloride Level 107, Carbon Dioxide Level 38H, Anion Gap -2L, Blood Urea Nitrogen 22H, Creatinine 0.6, Estimat Glomerular Filtration Rate > 60, Glucose Level 140H, Calcium Level 8.6, Total Bilirubin 0.7, Aspartate Amino Transf (AST/SGOT) 51H, Alanine Aminotransferase (ALT/SGPT) 40, Alkaline Phosphat ase 100, Total Protein 6.5, Albumin 1.9L, Globulin 4.6, Albumin/Globulin Ratio 0.4L 08/03/20 09:42: POC Whole Blood Glucose [Pending] 08/03/20 12:06: POC Whole Blood Glucose [Pending] Current Medications Medications (Trade) Dose Ordered Sig/Milagro Route PRN Reason Start Time Stop Time Status Last Admin Dose Admin Acetaminophen (Tylenol) 650 mg Q4H PRN RECTAL Mild Pain (Pain Scale 1-3) 07/24/20 18:15 08/23/20 18:14 07/25/20 11:49 Acetaminophen (Tylenol) 650 mg Q6H PRN NG Mild Pain (Pain Scale 1-3) 07/26/20 08:30 08/25/20 08:29 07/29/20 11:58 Acetaminophen (Tylenol) 650 mg Q6H PRN NG Temp >100.5 07/26/20 08:30 08/25/20 08:29 08/03/20 09:36 Albuterol/ Ipratropium (Combivent Respimat) 2 puff Q2H PRN INH Shortness of Breath 07/09/20 21:45 08/08/20 21:44 07/19/20 09:17 Ascorbic Acid (Vitamin C) 500 mg EVERY 12 HOURS NG 07/26/20 21:00 08/10/20 08:59 08/03/20 09:05 Ceftriaxone Sodium 1 gm/ Dextrose 55 ml @ 110 mls/hr Q24H IVPB 08/01/20 18:00 08/08/20 17:59 08/02/20 17:10 Chlorhexidine Gluconate (Marycarmen-Hex 2%) 1 applic DAILY@2000 TOPIC 07/20/20 20:00 10/18/20 19:59 08/02/20 20:00 Dextrose (Dextrose 50%) 25 ml Q30M PRN IV Hypoglycemia 07/23/20 13:15 10/21/20 13:14 Dextrose (Dextrose 50%) 50 ml Q30M PRN IV Hypoglycemia 07/23/20 13:15 10/21/20 13:14 Dextrose/Sodium Chloride 1,000 ml @ 60 mls/hr [id number] PRN IV WHILE PRONING ONLY 07/24/20 17:45 08/23/20 17:44 07/24/20 18:01 Docusate Sodium (Colace) 100 mg EVERY 12 HOURS NG 07/27/20 21:00 08/26/20 20:59 08/03/20 09:05 Enoxaparin Sodium (Lovenox) 40 mg Q12HR SUBQ 08/01/20 21:00 10/30/20 20:59 08/01/20 21:30 Fentanyl Citrate 250 ml @ 1 mls/hr Q24H IV 08/02/20 07:45 08/04/20 07:44 08/02/20 08:15 Hydromorphone HCl (Dilaudid) 1 mg Q4H PRN IVP For Pain 4-10 07/28/20 08:30 08/04/20 08:29 07/31/20 12:00 Insulin Aspart (NovoLOG) EVERY 6 HOURS SUBQ 07/28/20 00:00 10/21/20 15:59 08/03/20 12:16 Insulin Detemir (Levemir) 26 units EVERY 12 HOURS SUBQ 07/26/20 09:00 10/20/20 08:59 08/03/20 09:55 Methylprednisolone Sodium Succinate (Solu-MEDROL) 40 mg EVERY 12 HOURS IVP 07/25/20 12:30 10/23/20 12:29 08/03/20 09:05 Midazolam HCl 100 mg/Sodium Chloride 220 ml @ 2 mls/hr Q24H PRN IV Agitation 08/03/20 10:30 08/05/20 10:29 08/03/20 10:00 Ondansetron HCl (Zofran) 4 mg Q6H PRN IVP Nausea & Vomiting 07/09/20 21:45 08/08/20 21:44 Pantoprazole (Protonix) 40 mg DAILY IVP 07/25/20 09:00 08/24/20 08:59 08/03/20 09:05 Promethazine HCl/ Codeine (Phenergan with Codeine) 5 ml Q4H PRN ORAL For Cough 07/11/20 15:15 08/10/20 15:14 07/26/20 18:26 Vancomycin HCl 250 ml @ 166.667 mls/hr Q8H IVPB 08/03/20 20:00 08/08/20 19:59 Vancomycin HCl 250 ml @ 166.667 mls/hr Q8H IVPB 07/27/20 11:00 08/03/20 16:00 08/03/20 10:58 Vancomycin HCl (Vanco pharmacy to dose) 1 ea DAILY PRN MISC Per rx protocol 07/26/20 09:00 08/25/20 08:59 Vitamin B Complex (Vitamin B Complex) 1 tab DAILY NG 07/24/20 09:00 10/09/20 08:59 08/03/20 09:05 Vitamin D (Vitamin D) 1,000 unit BEDTIME GT 07/27/20 21:00 08/13/20 09:29 08/02/20 20:39 Assessment/Plan Assessment/Plan acute hypoxemic respiratory failure COVID pneumonia Asthma elevated liver enzymes DNR ARDS with fibrosing phase pneumothorax elevated TG PLAN borderline oxygen saturation/ not improved overall CT per surgery monitor imaging monitor ABG respiratory care ID noted DVT prophylaxis prognosis appears poor for meaningful recovery monitor respiratory status for change doubt will see improvement in oxygen needs medications/laboratory data/nursing notes/ICU care reviewed in detail note reviewed and edited care discussed with RN and RT ICU time spent >40 minutes Elfego Price MD Aug 03, 2020 15:58
--- NOTE | 2020-08-03 16:30 | NUR ---
NURSE NOTES: Cleaned and repositioned patient. Patient is afebrile. Oral temp 98.9. Will continue to monitor.
[2020-08-03] MEDS: cefTRIAXone 1 GM in D5W 55 ML IVPB SCH (17:07)
--- NOTE | 2020-08-03 17:10 | Infectious Diseases Prog Note ---
Assessment/Plan Assessment/Plan antibiotics : vancomycin, ceftriaxone A 1. COVID-19 pneumonia on 100 % Fi O2 of oxygen with O2 saturation 86 %. s/p ivermectin x 2 2. History of asthma. 3. Elevated liver function tests improving 4. klebsiella pneumonia P 1. continue ceftriaxone, iv vancomycin 2. Continue solumedrol 3. Continue isolation. Subjective ROS Limited/Unobtainable: Yes Allergies: Coded Allergies: No Known Allergies (Unverified , 03/08/17) Objective Last 24 Hour Vital Signs Date Time Temp Pulse Resp B/P (MAP) Pulse Ox O2 Delivery O2 Flow Rate FiO2 08/03/20 17:00 99.7 126 27 151/77 (101) 93 08/03/20 17:00 27 Mechanical Ventilator 100 08/03/20 16:30 26 Mechanical Ventilator 100 08/03/20 16:00 Mechanical Ventilator 08/03/20 16:00 100 08/03/20 16:00 120 26 136/76 (96) 93 08/03/20 15:35 119 08/03/20 15:00 27 Mechanical Ventilator 100 08/03/20 15:00 27 Mechanical Ventilator 100 08/03/20 15:00 27 Mechanical Ventilator 100 08/03/20 15:00 120 26 129/76 (93) 94 08/03/20 14:00 115 27 132/79 (96) 94 08/03/20 14:00 28 Mechanical Ventilator 100 08/03/20 13:45 121 27 100 08/03/20 13:00 113 25 113/66 (82) 93 08/03/20 13:00 27 Mechanical Ventilator 100 08/03/20 12:00 100 08/03/20 12:00 Mechanical Ventilator 08/03/20 12:00 28 Mechanical Ventilator 100 08/03/20 12:00 99.7 128 27 137/73 (94) 92 08/03/20 12:00 125 08/03/20 11:00 132 28 144/79 (100) 92 08/03/20 11:00 28 Mechanical Ventilator 100 08/03/20 10:06 100.3 08/03/20 10:00 34 Mechanical Ventilator 100 08/03/20 10:00 100.4 134 28 147/81 (103) 93 08/03/20 09:59 28 Mechanical Ventilator 100 08/03/20 09:00 100.9 130 27 136/83 (100) 93 08/03/20 09:00 27 Mechanical Ventilator 100 08/03/20 08:00 100 08/03/20 08:00 121 27 128/66 (86) 91 08/03/20 08:00 128 08/03/20 08:00 Mechanical Ventilator 08/03/20 08:00 27 Mechanical Ventilator 100 08/03/20 07:45 26 109/67 Mechanical Ventilator 100 08/03/20 07:30 26 110/67 Mechanical Ventilator 100 08/03/20 07:25 125 29 100 08/03/20 07:15 26 119/70 Mechanical Ventilator 100 08/03/20 07:00 28 131/74 Mechanical Ventilator 100 08/03/20 07:00 28 Mechanical Ventilator 100 08/03/20 07:00 125 28 131/74 (93) 94 08/03/20 06:00 26 143/90 Mechanical Ventilator 100 08/03/20 06:00 26 Mechanical Ventilator 100 08/03/20 06:00 98.5 125 26 143/90 (107) 92 08/03/20 05:00 124 28 128/76 (93) 93 08/03/20 05:00 33 123/76 Mechanical Ventilator 100 08/03/20 05:00 33 Mechanical Ventilator 100 08/03/20 04:00 Mechanical Ventilator 08/03/20 04:00 124 25 123/74 (90) 90 08/03/20 04:00 25 123/74 Mechanical Ventilator 100 08/03/20 04:00 25 Mechanical Ventilator 100 08/03/20 04:00 124 08/03/20 04:00 100 08/03/20 03:10 133 32 100 08/03/20 03:00 123 27 140/74 (96) 93 08/03/20 03:00 27 140/74 Mechanical Ventilator 100 08/03/20 03:00 27 Mechanical Ventilator 100 08/03/20 02:00 26 127/79 Mechanical Ventilator 100 08/03/20 02:00 26 Mechanical Ventilator 100 08/03/20 02:00 121 26 127/79 (95) 92 08/03/20 01:00 29 126/73 Mechanical Ventilator 100 08/03/20 01:00 29 Mechanical Ventilator 100 08/03/20 01:00 125 29 126/73 (90) 92 08/03/20 00:00 127 27 128/76 (93) 91 08/03/20 00:00 27 128/76 Mechanical Ventilator 100 08/03/20 00:00 27 100 08/03/20 00:00 Mechanical Ventilator 08/03/20 00:00 100 08/03/20 00:00 127 08/02/20 23:06 133 30 100 08/02/20 23:00 124 27 141/75 (97) 89 08/02/20 23:00 27 141/75 Mechanical Ventilator 100 08/02/20 23:00 27 Mechanical Ventilator 100 08/02/20 22:00 123 28 132/77 (95) 89 08/02/20 22:00 28 132/77 Mechanical Ventilator 100 08/02/20 22:00 28 Mechanical Ventilator 100 08/02/20 21:00 29 136/79 Mechanical Ventilator 100 08/02/20 21:00 29 Mechanical Ventilator 100 08/02/20 21:00 130 29 136/79 (98) 88 08/02/20 20:00 128 08/02/20 20:00 100 08/02/20 20:00 128 29 140/84 (102) 87 08/02/20 20:00 29 140/84 Mechanical Ventilator 100 08/02/20 20:00 29 Mechanical Ventilator 100 08/02/20 20:00 Mechanical Ventilator 08/02/20 19:01 124 31 100 08/02/20 19:00 130 31 140/84 (102) 82 08/02/20 19:00 31 140/84 Mechanical Ventilator 100 08/02/20 19:00 31 Mechanical Ventilator 100 08/02/20 18:00 30 120/70 Mechanical Ventilator 100 08/02/20 18:00 30 Mechanical Ventilator 100 08/02/20 18:00 123 30 137/87 (104) 86 Height (Feet): 5 Height (Inches): 6.00 Weight (Pounds): 209 Laboratory Tests Test 08/02/20 17:15 08/03/20 03:40 08/03/20 09:42 08/03/20 12:06 POC Whole Blood Glucose Pending Pending Pending White Blood Count 16.7 K/UL (4.8-10.8) H Red Blood Count 4.25 M/UL (4.70-6.10) L Hemoglobin 13.3 G/DL (14.2-18.0) L Hematocrit 41.3 % (42.0-52.0) L Mean Corpuscular Volume 97 FL (80-99) Mean Corpuscular Hemoglobin 31.2 PG (27.0-31.0) H Mean Corpuscular Hemoglobin Concent 32.1 G/DL (32.0-36.0) Red Cell Distribution Width 13.8 % (11.6-14.8) Platelet Count 206 K/UL (150-450) Mean Platelet Volume 7.4 FL (6.5-10.1) Neutrophils (%) (Auto) % (45.0-75.0) Lymphocytes (%) (Auto) % (20.0-45.0) Monocytes (%) (Auto) % (1.0-10.0) Eosinophils (%) (Auto) % (0.0-3.0) Basophils (%) (Auto) % (0.0-2.0) Differential Total Cells Counted 100 Neutrophils % (Manual) 94 % (45-75) H Lymphocytes % (Manual) 5 % (20-45) L Monocytes % (Manual) 1 % (1-10) Eosinophils % (Manual) 0 % (0-3) Basophils % (Manual) 0 % (0-2) Band Neutrophils 0 % (0-8) Platelet Estimate Adequate Platelet Morphology Normal Macrocytosis 1+ Prothrombin Time 11.4 SEC (9.30-11.50) Prothromb Time International Ratio 1.0 (0.9-1.1) Activated Partial Thromboplast Time 27 SEC (23-33) Sodium Level 143 MMOL/L (136-145) Potassium Level 4.6 MMOL/L (3.5-5.1) Chloride Level 107 MMOL/L (98-107) Carbon Dioxide Level 38 MMOL/L (21-32) H Anion Gap -2 mmol/L (5-15) L Blood Urea Nitrogen 22 mg/dL (7-18) H Creatinine 0.6 MG/DL (0.55-1.30) Estimat Glomerular Filtration Rate > 60 mL/min (>60) Glucose Level 140 MG/DL (74-106) H Calcium Level 8.6 MG/DL (8.5-10.1) Total Bilirubin 0.7 MG/DL (0.2-1.0) Aspartate Amino Transf (AST/SGOT) 51 U/L (15-37) H Alanine Aminotransferase (ALT/SGPT) 40 U/L (12-78) Alkaline Phosphatase 100 U/L (46-116) Total Protein 6.5 G/DL (6.4-8.2) Albumin 1.9 G/DL (3.4-5.0) L Globulin 4.6 g/dL Albumin/Globulin Ratio 0.4 (1.0-2.7) L Current Medications Medications (Trade) Dose Ordered Sig/Milagro Route PRN Reason Start Time Stop Time Status Last Admin Dose Admin Acetaminophen (Tylenol) 650 mg Q4H PRN RECTAL Mild Pain (Pain Scale 1-3) 07/24/20 18:15 08/23/20 18:14 07/25/20 11:49 Acetaminophen (Tylenol) 650 mg Q6H PRN NG Mild Pain (Pain Scale 1-3) 07/26/20 08:30 08/25/20 08:29 07/29/20 11:58 Acetaminophen (Tylenol) 650 mg Q6H PRN NG Temp >100.5 07/26/20 08:30 08/25/20 08:29 08/03/20 09:36 Albuterol/ Ipratropium (Combivent Respimat) 2 puff Q2H PRN INH Shortness of Breath 07/09/20 21:45 08/08/20 21:44 07/19/20 09:17 Ascorbic Acid (Vitamin C) 500 mg EVERY 12 HOURS NG 07/26/20 21:00 08/10/20 08:59 08/03/20 09:05 Ceftriaxone Sodium 1 gm/ Dextrose 55 ml @ 110 mls/hr Q24H IVPB 08/01/20 18:00 08/08/20 17:59 08/03/20 17:07 Chlorhexidine Gluconate (Marycarmen-Hex 2%) 1 applic DAILY@2000 TOPIC 07/20/20 20:00 10/18/20 19:59 08/02/20 20:00 Dextrose (Dextrose 50%) 25 ml Q30M PRN IV Hypoglycemia 07/23/20 13:15 10/21/20 13:14 Dextrose (Dextrose 50%) 50 ml Q30M PRN IV Hypoglycemia 07/23/20 13:15 10/21/20 13:14 Dextrose/Sodium Chloride 1,000 ml @ 60 mls/hr [id number] PRN IV WHILE PRONING ONLY 07/24/20 17:45 08/23/20 17:44 07/24/20 18:01 Docusate Sodium (Colace) 100 mg EVERY 12 HOURS NG 07/27/20 21:00 08/26/20 20:59 08/03/20 09:05 Enoxaparin Sodium (Lovenox) 40 mg Q12HR SUBQ 08/01/20 21:00 10/30/20 20:59 08/01/20 21:30 Fentanyl Citrate 250 ml @ 1 mls/hr Q24H IV 08/02/20 07:45 08/04/20 07:44 08/02/20 08:15 Hydromorphone HCl (Dilaudid) 1 mg Q4H PRN IVP For Pain 4-10 07/28/20 08:30 08/04/20 08:29 07/31/20 12:00 Insulin Aspart (NovoLOG) EVERY 6 HOURS SUBQ 07/28/20 00:00 10/21/20 15:59 08/03/20 12:16 Insulin Detemir (Levemir) 26 units EVERY 12 HOURS SUBQ 07/26/20 09:00 10/20/20 08:59 08/03/20 09:55 Methylprednisolone Sodium Succinate (Solu-MEDROL) 40 mg EVERY 12 HOURS IVP 07/25/20 12:30 10/23/20 12:29 08/03/20 09:05 Midazolam HCl 100 mg/Sodium Chloride 200 ml @ 0 mls/hr Q24H PRN IV Agitation 08/03/20 16:30 08/05/20 10:29 08/03/20 16:30 Ondansetron HCl (Zofran) 4 mg Q6H PRN IVP Nausea & Vomiting 07/09/20 21:45 08/08/20 21:44 Pantoprazole (Protonix) 40 mg DAILY IVP 07/25/20 09:00 08/24/20 08:59 08/03/20 09:05 Promethazine HCl/ Codeine (Phenergan with Codeine) 5 ml Q4H PRN ORAL For Cough 07/11/20 15:15 08/10/20 15:14 07/26/20 18:26 Vancomycin HCl 250 ml @ 166.667 mls/hr Q8H IVPB 08/03/20 20:00 08/08/20 19:59 Vancomycin HCl (Vanco pharmacy to dose) 1 ea DAILY PRN MISC Per rx protocol 07/26/20 09:00 08/25/20 08:59 Vitamin B Complex (Vitamin B Complex) 1 tab DAILY NG 07/24/20 09:00 10/09/20 08:59 08/03/20 09:05 Vitamin D (Vitamin D) 1,000 unit BEDTIME GT 07/27/20 21:00 08/13/20 09:29 08/02/20 20:39 Jose Alberto MD Aug 03, 2020 17:10
--- NOTE | 2020-08-03 19:16 | NUR ---
NURSE HAND-OFF REPORT: Latest Vital Signs: Temperature 98.9 , Pulse 128 , B/P 130 /75 , Respiratory Rate 29 , O2 SAT 93 , Mechanical Ventilator, O2 Flow Rate . Vital Sign Comment: EKG Rhythm: Sinus Tachycardia Rhythm change?: N MD Notified?: MD Response: Latest Bradley Fall Score: 60 Fall Risk: High Risk Safety Measures: Call light Within Reach, Bed Alarm Zone 2, Side Rails Side Rails x2, Bed position Low and Locked. Fall Precautions: Yellow Socks Yellow Gown Door Sign Patient Fall Education Report given to ELIER Valdez.
--- NOTE | 2020-08-03 19:40 | NUR ---
NURSE NOTES: Report received from ELIER Lin. Observed pt lying in the bed. On Versed 20mg/hr, RASS of -[address] noted with HR of 120s noted. ETT 7.5, 25.5 at lip, AC 26/500/100%/P16, tolerating, saturation of 96% noted. L NGT noted, NPO at this time, low int suction connected, dark green drainage noted. F/C intact. L UA PICC intact. Bed in the lowest position. Side rails up x3. Will continue to monitor.
[2020-08-03] MEDS: Dyna-Hex 2% Top Sol 2oz TOPIC SCH (20:55)
[2020-08-03] MEDS: Vitamin D 1000 units Tab GT SCH (20:56)
--- NOTE | 2020-08-03 21:50 | NUR ---
NURSE NOTES: Pt lying in the bed, ST noted. Tolerating vent setting, AC26/500/100%/P16, saturating at 95%. T of 100.5 noted, PRN given, 99.9 at this time. Cooling measures done. Reposition done. Oral care given. Will continue to monitor.
--- NOTE | 2020-08-03 22:51 | Cardiology Progress Note ---
Subjective DATE OF SERVICE: Aug 03, 2020 Condition remains critical and prognosis guarded Increasingly hypoxic; worsening sinus tachycardia. S/P chest tube for PTX He remains on full vent support, on 100% FIO2 - orally intubated. Objective Last 24 Hour Vital Signs Date Time Temp Pulse Resp B/P (MAP) Pulse Ox O2 Delivery O2 Flow Rate FiO2 08/03/20 22:08 26 Mechanical Ventilator 100 08/03/20 21:26 99.9 08/03/20 20:30 28 Mechanical Ventilator 100 08/03/20 19:54 132 27 100 08/03/20 19:30 28 Mechanical Ventilator 100 08/03/20 19:00 128 29 130/75 (93) 93 08/03/20 18:30 31 Mechanical Ventilator 100 08/03/20 18:00 127 27 139/79 (99) 90 08/03/20 17:30 32 Mechanical Ventilator 100 08/03/20 17:00 98.9 126 27 151/77 (101) 93 08/03/20 17:00 27 Mechanical Ventilator 100 08/03/20 16:30 26 Mechanical Ventilator 100 08/03/20 16:00 Mechanical Ventilator 08/03/20 16:00 100 08/03/20 16:00 120 26 136/76 (96) 93 08/03/20 15:35 119 08/03/20 15:00 27 Mechanical Ventilator 100 08/03/20 15:00 27 Mechanical Ventilator 100 08/03/20 15:00 27 Mechanical Ventilator 100 08/03/20 15:00 120 26 129/76 (93) 94 08/03/20 14:00 115 27 132/79 (96) 94 08/03/20 14:00 28 Mechanical Ventilator 100 08/03/20 13:45 121 27 100 08/03/20 13:00 113 25 113/66 (82) 93 08/03/20 13:00 27 Mechanical Ventilator 100 08/03/20 12:00 100 08/03/20 12:00 Mechanical Ventilator 08/03/20 12:00 28 Mechanical Ventilator 100 08/03/20 12:00 99.7 128 27 137/73 (94) 92 08/03/20 12:00 125 08/03/20 11:00 132 28 144/79 (100) 92 08/03/20 11:00 28 Mechanical Ventilator 100 08/03/20 10:06 100.3 08/03/20 10:00 34 Mechanical Ventilator 100 08/03/20 10:00 100.4 134 28 147/81 (103) 93 08/03/20 09:59 28 Mechanical Ventilator 100 08/03/20 09:00 100.9 130 27 136/83 (100) 93 08/03/20 09:00 27 Mechanical Ventilator 100 08/03/20 08:00 100 08/03/20 08:00 121 27 128/66 (86) 91 08/03/20 08:00 128 08/03/20 08:00 Mechanical Ventilator 08/03/20 08:00 27 Mechanical Ventilator 100 08/03/20 07:45 26 109/67 Mechanical Ventilator 100 08/03/20 07:30 26 110/67 Mechanical Ventilator 100 08/03/20 07:25 125 29 100 08/03/20 07:15 26 119/70 Mechanical Ventilator 100 08/03/20 07:00 28 131/74 Mechanical Ventilator 100 08/03/20 07:00 28 Mechanical Ventilator 100 08/03/20 07:00 125 28 131/74 (93) 94 08/03/20 06:00 26 143/90 Mechanical Ventilator 100 08/03/20 06:00 26 Mechanical Ventilator 100 08/03/20 06:00 98.5 125 26 143/90 (107) 92 08/03/20 05:00 124 28 128/76 (93) 93 08/03/20 05:00 33 123/76 Mechanical Ventilator 100 08/03/20 05:00 33 Mechanical Ventilator 100 08/03/20 04:00 Mechanical Ventilator 08/03/20 04:00 124 25 123/74 (90) 90 08/03/20 04:00 25 123/74 Mechanical Ventilator 100 08/03/20 04:00 25 Mechanical Ventilator 100 08/03/20 04:00 124 08/03/20 04:00 100 08/03/20 03:10 133 32 100 08/03/20 03:00 123 27 140/74 (96) 93 08/03/20 03:00 27 140/74 Mechanical Ventilator 100 08/03/20 03:00 27 Mechanical Ventilator 100 08/03/20 02:00 26 127/79 Mechanical Ventilator 100 08/03/20 02:00 26 Mechanical Ventilator 100 08/03/20 02:00 121 26 127/79 (95) 92 08/03/20 01:00 29 126/73 Mechanical Ventilator 100 08/03/20 01:00 29 Mechanical Ventilator 100 08/03/20 01:00 125 29 126/73 (90) 92 08/03/20 00:00 127 27 128/76 (93) 91 08/03/20 00:00 27 128/76 Mechanical Ventilator 100 08/03/20 00:00 27 100 08/03/20 00:00 Mechanical Ventilator 08/03/20 00:00 100 08/03/20 00:00 127 08/02/20 23:06 133 30 100 08/02/20 23:00 124 27 141/75 (97) 89 08/02/20 23:00 27 141/75 Mechanical Ventilator 100 08/02/20 23:00 27 Mechanical Ventilator 100 HEENT: Orally intubated, Mechanically Ventilated, Thin secretions ET Tube RHYTHM: SB LUNGS: bilateral rhonchi CARDIAC: regular rhythm, normal S1 and S2, bradycardia ABDOMEN: normal bowel sounds, non tender, soft EXTREMITIES: normal range of motion, non-tender Laboratory Tests Test 08/03/20 03:40 08/03/20 09:42 08/03/20 12:06 08/03/20 17:12 White Blood Count 16.7 K/UL (4.8-10.8) H Red Blood Count 4.25 M/UL (4.70-6.10) L Hemoglobin 13.3 G/DL (14.2-18.0) L Hematocrit 41.3 % (42.0-52.0) L Mean Corpuscular Volume 97 FL (80-99) Mean Corpuscular Hemoglobin 31.2 PG (27.0-31.0) H Mean Corpuscular Hemoglobin Concent 32.1 G/DL (32.0-36.0) Red Cell Distribution Width 13.8 % (11.6-14.8) Platelet Count 206 K/UL (150-450) Mean Platelet Volume 7.4 FL (6.5-10.1) Neutrophils (%) (Auto) % (45.0-75.0) Lymphocytes (%) (Auto) % (20.0-45.0) Monocytes (%) (Auto) % (1.0-10.0) Eosinophils (%) (Auto) % (0.0-3.0) Basophils (%) (Auto) % (0.0-2.0) Differential Total Cells Counted 100 Neutrophils % (Manual) 94 % (45-75) H Lymphocytes % (Manual) 5 % (20-45) L Monocytes % (Manual) 1 % (1-10) Eosinophils % (Manual) 0 % (0-3) Basophils % (Manual) 0 % (0-2) Band Neutrophils 0 % (0-8) Platelet Estimate Adequate Platelet Morphology Normal Macrocytosis 1+ Prothrombin Time 11.4 SEC (9.30-11.50) Prothromb Time International Ratio 1.0 (0.9-1.1) Activated Partial Thromboplast Time 27 SEC (23-33) Sodium Level 143 MMOL/L (136-145) Potassium Level 4.6 MMOL/L (3.5-5.1) Chloride Level 107 MMOL/L (98-107) Carbon Dioxide Level 38 MMOL/L (21-32) H Anion Gap -2 mmol/L (5-15) L Blood Urea Nitrogen 22 mg/dL (7-18) H Creatinine 0.6 MG/DL (0.55-1.30) Estimat Glomerular Filtration Rate > 60 mL/min (>60) Glucose Level 140 MG/DL (74-106) H Calcium Level 8.6 MG/DL (8.5-10.1) Total Bilirubin 0.7 MG/DL (0.2-1.0) Aspartate Amino Transf (AST/SGOT) 51 U/L (15-37) H Alanine Aminotransferase (ALT/SGPT) 40 U/L (12-78) Alkaline Phosphatase 100 U/L (46-116) Total Protein 6.5 G/DL (6.4-8.2) Albumin 1.9 G/DL (3.4-5.0) L Globulin 4.6 g/dL Albumin/Globulin Ratio 0.4 (1.0-2.7) L POC Whole Blood Glucose Pending Pending Pending Assessment/Plan Assessment/Plan Covid 19 PNA s/p PTX Secondary sinus tachycardia K.pneumonia PNA Acute respiratory failure with severe Hypoxia Sinus bradycardia resolved Diabetes mellitus with hyperglycemia due to steroids Transaminitis Mod protein/calorie malnutrition CRITICAL & GUARDED Chest tube management Abx per ID Continuous cardiac monitoring Anticoagulation and steroid rx Titrate oxygen as able; prone. Vent settings adjusted by pulmonary Anti-viral rx Protein suppl Insulin cov'g by SS; levemir dose advanced further. Chuck Swain MD Aug 03, 2020 22:50
[2020-08-04] VITALS (51 sets, daily range): BP systolic 104–156; BP diastolic 62–89
--- NOTE | 2020-08-04 | NUR ---
NURSE NOTES: No acute change noted at this time. Versed 20mg/hr. ST noted with HR of 130s. Tolerating vent, saturating at 95%. Reposition done. Oral care given. Will continue to monitor.
[2020-08-04] MEDS: NovoLOG Insulin Flexpen SUBQ SCH ×4 (00:41→17:37)
--- NOTE | 2020-08-04 02:23 | NUR ---
NURSE NOTES: Pt RASS score of -[address], HR of 120s noted. Tolerating vent setting. Chest tube intact, output of 30cc noted, serosanguineous. No drainage noted from NGT suction. Will continue to monitor.
[2020-08-04] MEDS: Midazolam HCl 50mg/10ml vial 100 MG in NS 180 ML IV PRN ×3 (02:55→22:43)
--- NOTE | 2020-08-04 04:30 | NUR ---
NURSE NOTES: Noted pt hard to arouse, Versed titrated to 10mg/hr; will continue to monitor to reach RASS of -2. ST noted. Tolerating vent, 95%. Bed bath given. Reposition done. Oral care given. Will continue to monitor.
[2020-08-04] MEDS: Vancomycin 1.25gm Premix IVPB SCH ×3 (04:32→20:29)
[2020-08-04 06:59] LABS: HEMATOCRIT 36.7 % (42.0-52.0); HEMOGLOBIN 11.6 G/DL (14.2-18.0); MEAN CORPUSCULAR VOLUME 98 FL (80-99); PLATELET COUNT 203 K/UL (150-450); RED BLOOD COUNT 3.73 M/UL (4.70-6.10); RED CELL DISTRIBUTION WIDTH 13.8 % (11.6-14.8); WHITE BLOOD COUNT 13.6 K/UL (4.8-10.8)
[2020-08-04 07:14] LABS: ALANINE AMINOTRANSFERASE 31 U/L (12-78); ALBUMIN 1.7 G/DL (3.4-5.0); ALBUMIN/GLOBULIN RATIO 0.4 (1.0-2.7); ALKALINE PHOSPHATASE 80 U/L (46-116); ANION GAP 1 mmol/L (5-15); ASPARTATE AMINO TRANSFERASE 45 U/L (15-37); BILIRUBIN,TOTAL 0.6 MG/DL (0.2-1.0); BLOOD UREA NITROGEN 26 mg/dL (7-18); CALCIUM 8.9 MG/DL (8.5-10.1); CARBON DIOXIDE 39 MMOL/L (21-32); CHLORIDE 102 MMOL/L (98-107); CREATININE 0.5 MG/DL (0.55-1.30); POTASSIUM 4.5 MMOL/L (3.5-5.1); SODIUM 142 MMOL/L (136-145)
--- NOTE | 2020-08-04 07:45 | NUR ---
NURSE HAND-OFF REPORT: Latest Vital Signs: Temperature 99.0 , Pulse 118 , B/P 141 /77 , Respiratory Rate 14 , O2 SAT 96 , Mechanical Ventilator, O2 Flow Rate . Vital Sign Comment: at the bedside, updated pt status. Tolerating vent setting. Chest tube darinage 30cc. No draingae from NGT. EKG Rhythm: Sinus Tachycardia Rhythm change?: N MD Notified?: Y -Dr. Diana at bedside for re-intubation MD Response: Latest Bradley Fall Score: 60 Fall Risk: High Risk Safety Measures: Call light Within Reach, Bed Alarm Zone 2, Side Rails Side Rails x2, Bed position Low and Locked. Fall Precautions: Yellow Socks Yellow Gown Door Sign Patient Fall Education Report given to ELIER Woods.
--- NOTE | 2020-08-04 08:24 | General Progress Note ---
Subjective ROS Limited/Unobtainable: Yes Constitutional: Reports: malaise, weakness HEENT: Reports: no symptoms Cardiovascular: Reports: no symptoms Respiratory: Reports: shortness of breath Gastrointestinal/Abdominal: Reports: difficulty swallowing Genitourinary: Reports: no symptoms Neurologic/Psychiatric: Reports: no symptoms Endocrine: Reports: no symptoms Hematologic/Lymphatic: Reports: no symptoms Allergies: Coded Allergies: No Known Allergies (Unverified , 03/08/17) All Systems: reviewed and negative except above Subjective no change. sedated. o2 sats slightly better- low to mid 90s. on tube feeds Objective Last 24 Hour Vital Signs Date Time Temp Pulse Resp B/P (MAP) Pulse Ox O2 Delivery O2 Flow Rate FiO2 08/04/20 07:15 118 14 141/77 (98) 96 08/04/20 07:00 112 8 149/76 (100) 95 08/04/20 07:00 Mechanical Ventilator 08/04/20 06:45 120 27 140/74 (96) 96 08/04/20 06:30 116 20 135/68 (90) 96 08/04/20 06:15 116 5 138/81 (100) 97 08/04/20 06:00 114 14 120/71 (87) 97 08/04/20 06:00 24 Mechanical Ventilator 100 08/04/20 05:45 117 8 137/80 (99) 97 08/04/20 05:30 107 6 129/77 (94) 97 08/04/20 05:15 109 24 117/71 (86) 97 08/04/20 05:00 110 24 121/71 (88) 97 08/04/20 05:00 25 100 08/04/20 04:45 25 Mechanical Ventilator 100 08/04/20 04:30 24 Mechanical Ventilator 100 08/04/20 04:15 122 27 120/86 (97) 96 08/04/20 04:15 23 Mechanical Ventilator 100 08/04/20 04:00 99.0 117 18 146/82 (103) 96 08/04/20 04:00 Mechanical Ventilator 08/04/20 04:00 25 Mechanical Ventilator 100 08/04/20 04:00 121 08/04/20 04:00 100 08/04/20 03:45 116 26 139/77 (97) 95 08/04/20 03:30 123 133/76 (95) 08/04/20 03:00 122 123/74 (90) 93 08/04/20 02:55 28 100 08/04/20 02:30 123 117/74 (88) 93 08/04/20 02:08 26 Mechanical Ventilator 100 08/04/20 02:00 126 124/76 (92) 94 08/04/20 01:54 125 27 100 08/04/20 01:08 22 Mechanical Ventilator 100 08/04/20 01:00 124 136/76 (96) 95 08/04/20 00:08 22 100 08/04/20 00:00 Mechanical Ventilator 08/04/20 00:00 122 133/71 (91) 94 08/04/20 00:00 120 08/03/20 23:08 28 Mechanical Ventilator 100 08/03/20 23:00 119 126/67 (86) 94 08/03/20 22:08 26 Mechanical Ventilator 100 08/03/20 22:00 124 121/74 (90) 95 08/03/20 21:30 26 100 08/03/20 21:26 99.9 08/03/20 21:00 132 147/73 (97) 94 08/03/20 20:30 28 Mechanical Ventilator 100 08/03/20 20:00 Mechanical Ventilator 08/03/20 20:00 100.5 131 137/79 (98) 93 08/03/20 20:00 100 08/03/20 20:00 135 08/03/20 19:54 132 27 100 08/03/20 19:30 28 Mechanical Ventilator 100 08/03/20 19:00 128 29 130/75 (93) 93 08/03/20 18:30 31 Mechanical Ventilator 100 08/03/20 18:00 127 27 139/79 (99) 90 08/03/20 17:30 32 Mechanical Ventilator 100 08/03/20 17:00 98.9 126 27 151/77 (101) 93 08/03/20 17:00 27 Mechanical Ventilator 100 08/03/20 16:30 26 Mechanical Ventilator 100 08/03/20 16:00 Mechanical Ventilator 08/03/20 16:00 100 08/03/20 16:00 120 26 136/76 (96) 93 08/03/20 15:35 119 08/03/20 15:00 27 Mechanical Ventilator 100 08/03/20 15:00 27 Mechanical Ventilator 100 08/03/20 15:00 27 Mechanical Ventilator 100 08/03/20 15:00 120 26 129/76 (93) 94 08/03/20 14:00 115 27 132/79 (96) 94 08/03/20 14:00 28 Mechanical Ventilator 100 08/03/20 13:45 121 27 100 08/03/20 13:00 113 25 113/66 (82) 93 08/03/20 13:00 27 Mechanical Ventilator 100 08/03/20 12:00 100 08/03/20 12:00 Mechanical Ventilator 08/03/20 12:00 28 Mechanical Ventilator 100 08/03/20 12:00 99.7 128 27 137/73 (94) 92 08/03/20 12:00 125 08/03/20 11:00 132 28 144/79 (100) 92 08/03/20 11:00 28 Mechanical Ventilator 100 08/03/20 10:06 100.3 08/03/20 10:00 34 Mechanical Ventilator 100 08/03/20 10:00 100.4 134 28 147/81 (103) 93 08/03/20 09:59 28 Mechanical Ventilator 100 08/03/20 09:00 100.9 130 27 136/83 (100) 93 08/03/20 09:00 27 Mechanical Ventilator 100 Intake and Output 08/03/20 08/04/20 19:00 07:00 Intake Total 776.500 ml 365 ml Output Total 1072 ml 560 ml Balance -295.500 ml -195 ml IV Total 726.500 ml 365 ml Other 50 ml Output Urine Total 1015 ml 560 ml Gastric Drainage Total 50 ml Chest Tube Drainage Total 7 ml # Bowel Movements 1 Laboratory Tests 08/03/20 09:42: POC Whole Blood Glucose [Pending] 08/03/20 12:06: POC Whole Blood Glucose [Pending] 08/03/20 17:12: POC Whole Blood Glucose [Pending] 08/04/20 00:32: POC Whole Blood Glucose 181H 08/04/20 04:45: White Blood Count 13.6H, Red Blood Count 3.73L, Hemoglobin 11.6L, Hematocrit 36.7L, Mean Corpuscular Volume 98, Mean Corpuscular Hemoglobin 31.2H, Mean Corpuscular Hemoglobin Concent 31.7L, Red Cell Distribution Width 13.8, Platelet Count 203, Mean Platelet Volume 7.0, Neutrophils (%) (Auto) , Lymphocytes (%) (Auto) , Monocytes (%) (Auto) , Eosinophils (%) (Auto) , Basophils (%) (Auto) , Neutrophils % (Manual) [Pending], Lymphocytes % (Manual) [Pending], Platelet Estimate [Pending], Platelet Morphology [Pending], Sodium Level 142, Potassium Level 4.5, Chloride Level 102, Carbon Dioxide Level 39H, Anion Gap 1L, Blood Urea Nitrogen 26H, Creatinine 0.5L, Estimat Glomerular Filtration Rate > 60, Glucose Level 199H, Calcium Level 8.9, Total Bilirubin 0.6, Aspartate Amino Transf (AST/SGOT) 45H, Alanine Aminotransferase (ALT/SGPT) 31, Alkaline Phosphatase 80, Total Protein 5.8L, Albumin 1.7L, Globulin 4.1, Albumin/Globulin Ratio 0.4L 08/04/20 05:14: POC Whole Blood Glucose 217H Height (Feet): 5 Height (Inches): 6.00 Weight (Pounds): 209 General Appearance: WD/WN, lethargic Neck: supple Cardiovascular: regular rhythm Respiratory/Chest: decreased breath sounds Abdomen: normal bowel sounds, non tender, soft, no organomegaly Edema: 1+ Arm (L), 1+ Arm (R), 1+ Leg (L), 1+ Leg (R) Neurologic: unresponsive Objective deferred Assessment/Plan Problem List: (1) Coronavirus infection ICD Codes: B34.2 - Coronavirus infection, unspecified SNOMED: [id number] Status: not improved Assessment/Plan: vent support resp care wean fio2 as able dvt/stress ulcer prophylaxis per surgery too unstable for trach. pt would benefit from transfer to tertiary care hospital for higher level care - such as [facility] Rolando Cherry MD Aug 04, 2020 08:24
--- NOTE | 2020-08-04 08:27 | Infectious Diseases Prog Note ---
Assessment/Plan Assessment/Plan A: 1. COVID-19 pneumonia. 2. History of asthma. 3. Elevated liver function tests. 4. Fatty liver 5. DM with hyperglycemia 6. Leukocytosis worsening 7. Hypoxic respiratory failure 8. Klebsiella pneumonia 9. Positive blood culture with CoANS PLAN: 1. Continue Methylprednisone 2. Continue isolation. 3. Continue Ceftriaxone & Vancomycin 4. Sputum culture Subjective ROS Limited/Unobtainable: Yes Constitutional: Reports: fever, other - night Allergies: Coded Allergies: No Known Allergies (Unverified , 03/08/17) Objective Last 24 Hour Vital Signs Date Time Temp Pulse Resp B/P (MAP) Pulse Ox O2 Delivery O2 Flow Rate FiO2 08/04/20 07:15 118 14 141/77 (98) 96 08/04/20 07:00 112 8 149/76 (100) 95 08/04/20 07:00 Mechanical Ventilator 08/04/20 06:45 120 27 140/74 (96) 96 08/04/20 06:30 116 20 135/68 (90) 96 08/04/20 06:15 116 5 138/81 (100) 97 08/04/20 06:00 114 14 120/71 (87) 97 08/04/20 06:00 24 Mechanical Ventilator 100 08/04/20 05:45 117 8 137/80 (99) 97 08/04/20 05:30 107 6 129/77 (94) 97 08/04/20 05:15 109 24 117/71 (86) 97 08/04/20 05:00 110 24 121/71 (88) 97 08/04/20 05:00 25 100 08/04/20 04:45 25 Mechanical Ventilator 100 08/04/20 04:30 24 Mechanical Ventilator 100 08/04/20 04:15 122 27 120/86 (97) 96 08/04/20 04:15 23 Mechanical Ventilator 100 08/04/20 04:00 99.0 117 18 146/82 (103) 96 08/04/20 04:00 Mechanical Ventilator 08/04/20 04:00 25 Mechanical Ventilator 100 08/04/20 04:00 121 08/04/20 04:00 100 08/04/20 03:45 116 26 139/77 (97) 95 08/04/20 03:30 123 133/76 (95) 08/04/20 03:00 122 123/74 (90) 93 08/04/20 02:55 28 100 08/04/20 02:30 123 117/74 (88) 93 08/04/20 02:08 26 Mechanical Ventilator 100 08/04/20 02:00 126 124/76 (92) 94 08/04/20 01:54 125 27 100 08/04/20 01:08 22 Mechanical Ventilator 100 08/04/20 01:00 124 136/76 (96) 95 08/04/20 00:08 22 100 08/04/20 00:00 Mechanical Ventilator 08/04/20 00:00 122 133/71 (91) 94 08/04/20 00:00 120 08/03/20 23:08 28 Mechanical Ventilator 100 08/03/20 23:00 119 126/67 (86) 94 08/03/20 22:08 26 Mechanical Ventilator 100 08/03/20 22:00 124 121/74 (90) 95 08/03/20 21:30 26 100 08/03/20 21:26 99.9 08/03/20 21:00 132 147/73 (97) 94 08/03/20 20:30 28 Mechanical Ventilator 100 08/03/20 20:00 Mechanical Ventilator 08/03/20 20:00 100.5 131 137/79 (98) 93 08/03/20 20:00 100 08/03/20 20:00 135 08/03/20 19:54 132 27 100 08/03/20 19:30 28 Mechanical Ventilator 100 08/03/20 19:00 128 29 130/75 (93) 93 08/03/20 18:30 31 Mechanical Ventilator 100 08/03/20 18:00 127 27 139/79 (99) 90 08/03/20 17:30 32 Mechanical Ventilator 100 08/03/20 17:00 98.9 126 27 151/77 (101) 93 08/03/20 17:00 27 Mechanical Ventilator 100 08/03/20 16:30 26 Mechanical Ventilator 100 08/03/20 16:00 Mechanical Ventilator 08/03/20 16:00 100 08/03/20 16:00 120 26 136/76 (96) 93 08/03/20 15:35 119 08/03/20 15:00 27 Mechanical Ventilator 100 08/03/20 15:00 27 Mechanical Ventilator 100 08/03/20 15:00 27 Mechanical Ventilator 100 08/03/20 15:00 120 26 129/76 (93) 94 08/03/20 14:00 115 27 132/79 (96) 94 08/03/20 14:00 28 Mechanical Ventilator 100 08/03/20 13:45 121 27 100 08/03/20 13:00 113 25 113/66 (82) 93 08/03/20 13:00 27 Mechanical Ventilator 100 08/03/20 12:00 100 08/03/20 12:00 Mechanical Ventilator 08/03/20 12:00 28 Mechanical Ventilator 100 08/03/20 12:00 99.7 128 27 137/73 (94) 92 08/03/20 12:00 125 08/03/20 11:00 132 28 144/79 (100) 92 08/03/20 11:00 28 Mechanical Ventilator 100 08/03/20 10:06 100.3 08/03/20 10:00 34 Mechanical Ventilator 100 08/03/20 10:00 100.4 134 28 147/81 (103) 93 08/03/20 09:59 28 Mechanical Ventilator 100 08/03/20 09:00 100.9 130 27 136/83 (100) 93 08/03/20 09:00 27 Mechanical Ventilator 100 Height (Feet): 5 Height (Inches): 6.00 Weight (Pounds): 209 HEENT: other - orally intubated Respiratory/Chest: other - on ventilator, UER6=090% Cardiovascular: tachycardia Abdomen: soft, non tender Extremities: other - hands edema Laboratory Tests Test 08/03/20 09:42 08/03/20 12:06 08/03/20 17:12 08/04/20 00:32 POC Whole Blood Glucose Pending Pending Pending 181 MG/DL (74-106) H Test 08/04/20 04:45 08/04/20 05:14 White Blood Count 13.6 K/UL (4.8-10.8) H Red Blood Count 3.73 M/UL (4.70-6.10) L Hemoglobin 11.6 G/DL (14.2-18.0) L Hematocrit 36.7 % (42.0-52.0) L Mean Corpuscular Volume 98 FL (80-99) Mean Corpuscular Hemoglobin 31.2 PG (27.0-31.0) H Mean Corpuscular Hemoglobin Concent 31.7 G/DL (32.0-36.0) L Red Cell Distribution Width 13.8 % (11.6-14.8) Platelet Count 203 K/UL (150-450) Mean Platelet Volume 7.0 FL (6.5-10.1) Neutrophils (%) (Auto) % (45.0-75.0) Lymphocytes (%) (Auto) % (20.0-45.0) Monocytes (%) (Auto) % (1.0-10.0) Eosinophils (%) (Auto) % (0.0-3.0) Basophils (%) (Auto) % (0.0-2.0) Neutrophils % (Manual) Pending Lymphocytes % (Manual) Pending Platelet Estimate Pending Platelet Morphology Pending Sodium Level 142 MMOL/L (136-145) Potassium Level 4.5 MMOL/L (3.5-5.1) Chloride Level 102 MMOL/L (98-107) Carbon Dioxide Level 39 MMOL/L (21-32) H Anion Gap 1 mmol/L (5-15) L Blood Urea Nitrogen 26 mg/dL (7-18) H Creatinine 0.5 MG/DL (0.55-1.30) L Estimat Glomerular Filtration Rate > 60 mL/min (>60) Glucose Level 199 MG/DL (74-106) H Calcium Level 8.9 MG/DL (8.5-10.1) Total Bilirubin 0.6 MG/DL (0.2-1.0) Aspartate Amino Transf (AST/SGOT) 45 U/L (15-37) H Alanine Aminotransferase (ALT/SGPT) 31 U/L (12-78) Alkaline Phosphatase 80 U/L (46-116) Total Protein 5.8 G/DL (6.4-8.2) L Albumin 1.7 G/DL (3.4-5.0) L Globulin 4.1 g/dL Albumin/Globulin Ratio 0.4 (1.0-2.7) L POC Whole Blood Glucose 217 MG/DL (74-106) H Current Medications Medications (Trade) Dose Ordered Sig/Milagro Route PRN Reason Start Time Stop Time Status Last Admin Dose Admin Acetaminophen (Tylenol) 650 mg Q4H PRN RECTAL Mild Pain (Pain Scale 1-3) 07/24/20 18:15 08/23/20 18:14 07/25/20 11:49 Acetaminophen (Tylenol) 650 mg Q6H PRN NG Temp >100.5 07/26/20 08:30 08/25/20 08:29 08/03/20 09:36 Acetaminophen (Tylenol) 650 mg Q6H PRN NG Mild Pain (Pain Scale 1-3) 07/26/20 08:30 08/25/20 08:29 08/03/20 20:56 Albuterol/ Ipratropium (Combivent Respimat) 2 puff Q2H PRN INH Shortness of Breath 07/09/20 21:45 08/08/20 21:44 07/19/20 09:17 Ascorbic Acid (Vitamin C) 500 mg EVERY 12 HOURS NG 07/26/20 21:00 08/10/20 08:59 08/03/20 20:56 Ceftriaxone Sodium 1 gm/ Dextrose 55 ml @ 110 mls/hr Q24H IVPB 08/01/20 18:00 08/08/20 17:59 08/03/20 17:07 Chlorhexidine Gluconate (Marycarmen-Hex 2%) 1 applic DAILY@2000 TOPIC 07/20/20 20:00 10/18/20 19:59 08/03/20 20:55 Dextrose (Dextrose 50%) 25 ml Q30M PRN IV Hypoglycemia 07/23/20 13:15 10/21/20 13:14 Dextrose (Dextrose 50%) 50 ml Q30M PRN IV Hypoglycemia 07/23/20 13:15 10/21/20 13:14 Dextrose/Sodium Chloride 1,000 ml @ 60 mls/hr [id number] PRN IV WHILE PRONING ONLY 07/24/20 17:45 08/23/20 17:44 07/24/20 18:01 Docusate Sodium (Colace) 100 mg EVERY 12 HOURS NG 07/27/20 21:00 08/26/20 20:59 08/03/20 20:55 Enoxaparin Sodium (Lovenox) 40 mg Q12HR SUBQ 08/01/20 21:00 10/30/20 20:59 08/01/20 21:30 Hydromorphone HCl (Dilaudid) 1 mg Q4H PRN IVP For Pain 4-10 07/28/20 08:30 1/7/21 08:29 07/31/20 12:00 Insulin Aspart (NovoLOG) EVERY 6 HOURS SUBQ 07/28/20 00:00 10/21/20 15:59 08/04/20 06:35 Insulin Detemir (Levemir) 26 units EVERY 12 HOURS SUBQ 07/26/20 09:00 10/20/20 08:59 08/03/20 20:59 Methylprednisolone Sodium Succinate (Solu-MEDROL) 40 mg EVERY 12 HOURS IVP 07/25/20 12:30 10/23/20 12:29 08/03/20 20:56 Midazolam HCl 100 mg/Sodium Chloride 200 ml @ 0 mls/hr Q24H PRN IV Agitation 08/03/20 16:30 08/05/20 10:29 08/04/20 02:55 Ondansetron HCl (Zofran) 4 mg Q6H PRN IVP Nausea & Vomiting 07/09/20 21:45 08/08/20 21:44 Pantoprazole (Protonix) 40 mg DAILY IVP 07/25/20 09:00 08/24/20 08:59 08/03/20 09:05 Promethazine HCl/ Codeine (Phenergan with Codeine) 5 ml Q4H PRN ORAL For Cough 07/11/20 15:15 08/10/20 15:14 07/26/20 18:26 Vancomycin HCl 250 ml @ 166.667 mls/hr Q8H IVPB 08/03/20 20:00 08/08/20 19:59 08/04/20 04:32 Vancomycin HCl (Vanco pharmacy to dose) 1 ea DAILY PRN MISC Per rx protocol 07/26/20 09:00 08/25/20 08:59 Vitamin B Complex (Vitamin B Complex) 1 tab DAILY NG 07/24/20 09:00 10/09/20 08:59 08/03/20 09:05 Vitamin D (Vitamin D) 1,000 unit BEDTIME GT 07/27/20 21:00 08/13/20 09:29 08/03/20 20:56 Mian Wing MD Aug 04, 2020 08:27
--- NOTE | 2020-08-04 08:43 | Pulmonology Progress Note ---
Subjective ROS Limited/Unobtainable: Yes Constitutional: Reports: fever, other - night Gastrointestinal/Abdominal: Denies: nausea, vomiting, diarrhea Musculoskeletal: Denies: pain Allergies: Coded Allergies: No Known Allergies (Unverified , 03/08/17) All Systems: reviewed and negative except above Subjective not improved on high oxygen on vent full code Objective Last 24 Hour Vital Signs Date Time Temp Pulse Resp B/P (MAP) Pulse Ox O2 Delivery O2 Flow Rate FiO2 08/04/20 07:15 118 14 141/77 (98) 96 08/04/20 07:00 112 8 149/76 (100) 95 08/04/20 07:00 Mechanical Ventilator 08/04/20 06:45 120 27 140/74 (96) 96 08/04/20 06:30 116 20 135/68 (90) 96 08/04/20 06:15 116 5 138/81 (100) 97 08/04/20 06:00 114 14 120/71 (87) 97 08/04/20 06:00 24 Mechanical Ventilator 100 08/04/20 05:45 117 8 137/80 (99) 97 08/04/20 05:30 107 6 129/77 (94) 97 08/04/20 05:15 109 24 117/71 (86) 97 08/04/20 05:00 110 24 121/71 (88) 97 08/04/20 05:00 25 100 08/04/20 04:45 25 Mechanical Ventilator 100 08/04/20 04:30 24 Mechanical Ventilator 100 08/04/20 04:15 122 27 120/86 (97) 96 08/04/20 04:15 23 Mechanical Ventilator 100 08/04/20 04:00 99.0 117 18 146/82 (103) 96 08/04/20 04:00 Mechanical Ventilator 08/04/20 04:00 25 Mechanical Ventilator 100 08/04/20 04:00 121 08/04/20 04:00 100 08/04/20 03:45 116 26 139/77 (97) 95 08/04/20 03:30 123 133/76 (95) 08/04/20 03:00 122 123/74 (90) 93 08/04/20 02:55 28 100 08/04/20 02:30 123 117/74 (88) 93 08/04/20 02:08 26 Mechanical Ventilator 100 08/04/20 02:00 126 124/76 (92) 94 08/04/20 01:54 125 27 100 08/04/20 01:08 22 Mechanical Ventilator 100 08/04/20 01:00 124 136/76 (96) 95 08/04/20 00:08 22 100 08/04/20 00:00 Mechanical Ventilator 08/04/20 00:00 122 133/71 (91) 94 08/04/20 00:00 120 08/03/20 23:08 28 Mechanical Ventilator 100 08/03/20 23:00 119 126/67 (86) 94 08/03/20 22:08 26 Mechanical Ventilator 100 08/03/20 22:00 124 121/74 (90) 95 08/03/20 21:30 26 100 08/03/20 21:26 99.9 08/03/20 21:00 132 147/73 (97) 94 08/03/20 20:30 28 Mechanical Ventilator 100 08/03/20 20:00 Mechanical Ventilator 08/03/20 20:00 100.5 131 137/79 (98) 93 08/03/20 20:00 100 08/03/20 20:00 135 08/03/20 19:54 132 27 100 08/03/20 19:30 28 Mechanical Ventilator 100 08/03/20 19:00 128 29 130/75 (93) 93 08/03/20 18:30 31 Mechanical Ventilator 100 08/03/20 18:00 127 27 139/79 (99) 90 08/03/20 17:30 32 Mechanical Ventilator 100 08/03/20 17:00 98.9 126 27 151/77 (101) 93 08/03/20 17:00 27 Mechanical Ventilator 100 08/03/20 16:30 26 Mechanical Ventilator 100 08/03/20 16:00 Mechanical Ventilator 08/03/20 16:00 100 08/03/20 16:00 120 26 136/76 (96) 93 08/03/20 15:35 119 08/03/20 15:00 27 Mechanical Ventilator 100 08/03/20 15:00 27 Mechanical Ventilator 100 08/03/20 15:00 27 Mechanical Ventilator 100 08/03/20 15:00 120 26 129/76 (93) 94 08/03/20 14:00 115 27 132/79 (96) 94 08/03/20 14:00 28 Mechanical Ventilator 100 08/03/20 13:45 121 27 100 08/03/20 13:00 113 25 113/66 (82) 93 08/03/20 13:00 27 Mechanical Ventilator 100 08/03/20 12:00 100 08/03/20 12:00 Mechanical Ventilator 08/03/20 12:00 28 Mechanical Ventilator 100 08/03/20 12:00 99.7 128 27 137/73 (94) 92 08/03/20 12:00 125 08/03/20 11:00 132 28 144/79 (100) 92 08/03/20 11:00 28 Mechanical Ventilator 100 08/03/20 10:06 100.3 08/03/20 10:00 34 Mechanical Ventilator 100 08/03/20 10:00 100.4 134 28 147/81 (103) 93 08/03/20 09:59 28 Mechanical Ventilator 100 08/03/20 09:00 100.9 130 27 136/83 (100) 93 08/03/20 09:00 27 Mechanical Ventilator 100 Intake and Output 08/03/20 08/04/20 19:00 07:00 Intake Total 776.500 ml 365 ml Output Total 1072 ml 560 ml Balance -295.500 ml -195 ml IV Total 726.500 ml 365 ml Other 50 ml Output Urine Total 1015 ml 560 ml Gastric Drainage Total 50 ml Chest Tube Drainage Total 7 ml # Bowel Movements 1 Objective deferred due to COVID Laboratory Tests 08/03/20 09:42: POC Whole Blood Glucose [Pending] 08/03/20 12:06: POC Whole Blood Glucose [Pending] 08/03/20 17:12: POC Whole Blood Glucose [Pending] 08/04/20 00:32: POC Whole Blood Glucose 181H 08/04/20 04:45: White Blood Count 13.6H, Red Blood Count 3.73L, Hemoglobin 11.6L, Hematocrit 36.7L, Mean Corpuscular Volume 98, Mean Corpuscular Hemoglobin 31.2H, Mean Corpuscular Hemoglobin Concent 31.7L, Red Cell Distribution Width 13.8, Platelet Count 203, Mean Platelet Volume 7.0, Neutrophils (%) (Auto) , Lymphocytes (%) (Auto) , Monocytes (%) (Auto) , Eosinophils (%) (Auto) , Basophils (%) (Auto) , Neutrophils % (Manual) [Pending], Lymphocytes % (Manual) [Pending], Platelet Estimate [Pending], Platelet Morphology [Pending], Sodium Level 142, Potassium Level 4.5, Chloride Level 102, Carbon Dioxide Level 39H, Anion Gap 1L, Blood Urea Nitrogen 26H, Creatinine 0.5L, Estimat Glomerular Filtration Rate > 60, Glucose Level 199H, Calcium Level 8.9, Total Bilirubin 0.6, Aspartate Amino Transf (AST/SGOT) 45H, Alanine Aminotransferase (ALT/SGPT) 31, Alkaline Phosphatase 80, Total Protein 5.8L, Albumin 1.7L, Globulin 4.1, Albumin/Globulin Ratio 0.4L 08/04/20 05:14: POC Whole Blood Glucose 217H Current Medications Medications (Trade) Dose Ordered Sig/Milagro Route PRN Reason Start Time Stop Time Status Last Admin Dose Admin Acetaminophen (Tylenol) 650 mg Q4H PRN RECTAL Mild Pain (Pain Scale 1-3) 07/24/20 18:15 08/23/20 18:14 07/25/20 11:49 Acetaminophen (Tylenol) 650 mg Q6H PRN NG Temp >100.5 07/26/20 08:30 08/25/20 08:29 08/03/20 09:36 Acetaminophen (Tylenol) 650 mg Q6H PRN NG Mild Pain (Pain Scale 1-3) 07/26/20 08:30 08/25/20 08:29 08/03/20 20:56 Albuterol/ Ipratropium (Combivent Respimat) 2 puff Q2H PRN INH Shortness of Breath 07/09/20 21:45 08/08/20 21:44 07/19/20 09:17 Ascorbic Acid (Vitamin C) 500 mg EVERY 12 HOURS NG 07/26/20 21:00 08/10/20 08:59 08/03/20 20:56 Ceftriaxone Sodium 1 gm/ Dextrose 55 ml @ 110 mls/hr Q24H IVPB 08/01/20 18:00 08/08/20 17:59 08/03/20 17:07 Chlorhexidine Gluconate (Marycarmen-Hex 2%) 1 applic DAILY@2000 TOPIC 07/20/20 20:00 10/18/20 19:59 08/03/20 20:55 Dextrose (Dextrose 50%) 25 ml Q30M PRN IV Hypoglycemia 07/23/20 13:15 10/21/20 13:14 Dextrose (Dextrose 50%) 50 ml Q30M PRN IV Hypoglycemia 07/23/20 13:15 10/21/20 13:14 Dextrose/Sodium Chloride 1,000 ml @ 60 mls/hr [id number] PRN IV WHILE PRONING ONLY 07/24/20 17:45 08/23/20 17:44 07/24/20 18:01 Docusate Sodium (Colace) 100 mg EVERY 12 HOURS NG 07/27/20 21:00 08/26/20 20:59 08/03/20 20:55 Enoxaparin Sodium (Lovenox) 40 mg Q12HR SUBQ 08/01/20 21:00 10/30/20 20:59 08/01/20 21:30 Insulin Aspart (NovoLOG) EVERY 6 HOURS SUBQ 07/28/20 00:00 10/21/20 15:59 08/04/20 06:35 Insulin Detemir (Levemir) 26 units EVERY 12 HOURS SUBQ 07/26/20 09:00 10/20/20 08:59 08/03/20 20:59 Methylprednisolone Sodium Succinate (Solu-MEDROL) 40 mg EVERY 12 HOURS IVP 07/25/20 12:30 10/23/20 12:29 08/03/20 20:56 Midazolam HCl 100 mg/Sodium Chloride 200 ml @ 0 mls/hr Q24H PRN IV Agitation 08/03/20 16:30 08/05/20 10:29 08/04/20 02:55 Ondansetron HCl (Zofran) 4 mg Q6H PRN IVP Nausea & Vomiting 07/09/20 21:45 08/08/20 21:44 Pantoprazole (Protonix) 40 mg DAILY IVP 07/25/20 09:00 08/24/20 08:59 08/03/20 09:05 Promethazine HCl/ Codeine (Phenergan with Codeine) 5 ml Q4H PRN ORAL For Cough 07/11/20 15:15 08/10/20 15:14 07/26/20 18:26 Vancomycin HCl 250 ml @ 166.667 mls/hr Q8H IVPB 08/03/20 20:00 08/08/20 19:59 08/04/20 04:32 Vancomycin HCl (Vanco pharmacy to dose) 1 ea DAILY PRN MISC Per rx protocol 07/26/20 09:00 08/25/20 08:59 Vitamin B Complex (Vitamin B Complex) 1 tab DAILY NG 07/24/20 09:00 10/09/20 08:59 08/03/20 09:05 Vitamin D (Vitamin D) 1,000 unit BEDTIME GT 07/27/20 21:00 08/13/20 09:29 08/03/20 20:56 Assessment/Plan Assessment/Plan acute hypoxemic respiratory failure COVID pneumonia Asthma elevated liver enzymes DNR ARDS with fibrosing phase pneumothorax elevated TG PLAN borderline oxygen saturation/ not improved overall CT per surgery needs trach for chronic vent management monitor ABG respiratory care ID noted DVT prophylaxis prognosis appears poor for meaningful recovery monitor respiratory status for change doubt will see improvement in oxygen needs medications/laboratory data/nursing notes/ICU care reviewed in detail note reviewed and edited care discussed with RN and RT ICU time spent >40 minutes Elfego Price MD Aug 04, 2020 08:43
--- NOTE | 2020-08-04 08:45 | NUR ---
NURSE NOTES: Dr. santiago updated at the bedside regarding patient WBC of 13.6. PICC line dressing is dry and clean, oral care provided with light clear white secretions suctioned. no verbal orders given at this time.
--- NOTE | 2020-08-04 09:22 | NUR ---
RADIOLOGY DEPT., CHEST X-RAY DONE.-P.DYE
--- NOTE | 2020-08-04 09:30 | NUR ---
NURSE NOTES: Dr. Price at the bedside assessing patient, the chest x-ray has been taken with no results uploaded at this time. no verbal orders given at this time.
[2020-08-04] MEDS: Ascorbic Acid 500mg tab NG SCH ×2 (10:18→21:27)
[2020-08-04] MEDS: Vitamin B Complex Tab NG SCH (10:18)
[2020-08-04] MEDS: Solu-MEDROL 40mg Inj IVP SCH ×2 (10:19→21:29)
[2020-08-04] MEDS: Pantoprazole Inj IVP SCH (10:19)
[2020-08-04] MEDS: Docusate 100mg/10ml Liq NG SCH ×2 (10:19→21:29)
[2020-08-04] MEDS: Enoxaparin 40mg Inj SUBQ SCH ×2 (10:19→21:28)
--- NOTE | 2020-08-04 10:28 | Diagnostic Imaging Report ---
Indication: Shortness of breath Technique: One view of the chest Comparison: 08/03/2020 Findings: Bilateral infiltrates are unchanged. Stable satisfactory endotracheal and orogastric tube positions. Impression: Unchanged, over one day, findings as above.
[2020-08-04] MEDS: Levemir Flexpen SUBQ SCH ×2 (10:51→22:37)
--- NOTE | 2020-08-04 11:13 | NUR ---
NURSE NOTES: Dr. Butler updated on patient chest tube draining serosanguineous fluid from the right chest tube, light suctioning is connected to wall suctioned with suction chamber is at -20 with water seal chamber having tidal. chest tube remains in place with dressing reinforced. no orders given at this time.
--- NOTE | 2020-08-04 11:19 | NUR ---
CASE MANAGEMENT:REVIEW 08/04/20 SI: COVID PNA. ACUTE RESPIRATORY FAILURE~INTUBATED ARDS. PNEUMOTHORAX ~ CHEST TUBE TO SUCTION 99.7 117 24 142/81 SAT 95% ON VENT SUPPORT W/100% FIO2 WBC+13.6 CO2+39 BUN+26 IS: VERSED GTT IV ROCEPHIN Q24 IV VANCOMYCIN Q8HRS IV SOLUMEDROL Q12 IV PROTONIX QD IVF@60/HR LOVENOX SQ Q12 : ICU STATUS DCP: FROM HOME PLAN: CHEST TUBE TO SUCTION NG TUBE TO LIS ~ UNABLE TO WEAN ~ POOR PROGNOSIS
--- NOTE | 2020-08-04 12:28 | Surgery Progress Note ---
Surgery Progress Note Subjective Procedure Performed right chest tube insertion Additional Comments Patient seen and examined bedside. Chest tube in place minimal output functioning appropriately. ET tube in place. On vent support. Significant support required. CXR reviewed. Given patient's age condition potentially consider higher level of care transfer as patient may benefit. Objective Last 24 Hour Vital Signs Date Time Temp Pulse Resp B/P (MAP) Pulse Ox O2 Delivery O2 Flow Rate FiO2 08/04/20 11:58 122 08/04/20 10:08 114 26 95 Mechanical Ventilator 100 08/04/20 08:30 117 22 142/81 (101) 96 08/04/20 08:00 118 26 100 08/04/20 08:00 Mechanical Ventilator 08/04/20 08:00 117 08/04/20 08:00 100 08/04/20 08:00 99.7 112 24 137/88 (104) 95 08/04/20 07:30 116 6 132/81 (98) 96 08/04/20 07:15 118 14 141/77 (98) 96 08/04/20 07:00 112 8 149/76 (100) 95 08/04/20 07:00 Mechanical Ventilator 08/04/20 06:45 120 27 140/74 (96) 96 08/04/20 06:30 116 20 135/68 (90) 96 08/04/20 06:15 116 5 138/81 (100) 97 08/04/20 06:00 114 14 120/71 (87) 97 08/04/20 06:00 24 Mechanical Ventilator 100 08/04/20 05:45 117 8 137/80 (99) 97 08/04/20 05:30 107 6 129/77 (94) 97 08/04/20 05:15 109 24 117/71 (86) 97 08/04/20 05:00 110 24 121/71 (88) 97 08/04/20 05:00 25 100 08/04/20 04:45 25 Mechanical Ventilator 100 08/04/20 04:30 24 Mechanical Ventilator 100 08/04/20 04:15 122 27 120/86 (97) 96 08/04/20 04:15 23 Mechanical Ventilator 100 08/04/20 04:00 99.0 117 18 146/82 (103) 96 08/04/20 04:00 Mechanical Ventilator 08/04/20 04:00 25 Mechanical Ventilator 100 08/04/20 04:00 121 08/04/20 04:00 100 08/04/20 03:45 116 26 139/77 (97) 95 08/04/20 03:30 123 133/76 (95) 08/04/20 03:00 122 123/74 (90) 93 08/04/20 02:55 28 100 08/04/20 02:30 123 117/74 (88) 93 08/04/20 02:08 26 Mechanical Ventilator 100 08/04/20 02:00 126 124/76 (92) 94 08/04/20 01:54 125 27 100 08/04/20 01:08 22 Mechanical Ventilator 100 08/04/20 01:00 124 136/76 (96) 95 08/04/20 00:08 22 100 08/04/20 00:00 Mechanical Ventilator 08/04/20 00:00 122 133/71 (91) 94 08/04/20 00:00 120 08/03/20 23:08 28 Mechanical Ventilator 100 08/03/20 23:00 119 126/67 (86) 94 08/03/20 22:08 26 Mechanical Ventilator 100 08/03/20 22:00 124 121/74 (90) 95 08/03/20 21:30 26 100 08/03/20 21:26 99.9 08/03/20 21:00 132 147/73 (97) 94 08/03/20 20:30 28 Mechanical Ventilator 100 08/03/20 20:00 Mechanical Ventilator 08/03/20 20:00 100.5 131 137/79 (98) 93 08/03/20 20:00 100 08/03/20 20:00 135 08/03/20 19:54 132 27 100 08/03/20 19:30 28 Mechanical Ventilator 100 08/03/20 19:00 128 29 130/75 (93) 93 08/03/20 18:30 31 Mechanical Ventilator 100 08/03/20 18:00 127 27 139/79 (99) 90 08/03/20 17:30 32 Mechanical Ventilator 100 08/03/20 17:00 98.9 126 27 151/77 (101) 93 08/03/20 17:00 27 Mechanical Ventilator 100 08/03/20 16:30 26 Mechanical Ventilator 100 08/03/20 16:00 Mechanical Ventilator 08/03/20 16:00 100 08/03/20 16:00 120 26 136/76 (96) 93 08/03/20 15:35 119 08/03/20 15:00 27 Mechanical Ventilator 100 08/03/20 15:00 27 Mechanical Ventilator 100 08/03/20 15:00 27 Mechanical Ventilator 100 08/03/20 15:00 120 26 129/76 (93) 94 08/03/20 14:00 115 27 132/79 (96) 94 08/03/20 14:00 28 Mechanical Ventilator 100 08/03/20 13:45 121 27 100 08/03/20 13:00 113 25 113/66 (82) 93 08/03/20 13:00 27 Mechanical Ventilator 100 I&O Intake and Output 08/03/20 08/04/20 19:00 07:00 Intake Total 776.500 ml 365 ml Output Total 1072 ml 560 ml Balance -295.500 ml -195 ml IV Total 726.500 ml 365 ml Other 50 ml Output Urine Total 1015 ml 560 ml Gastric Drainage Total 50 ml Chest Tube Drainage Total 7 ml # Bowel Movements 1 Dressing: dry Cardiovascular: RSR Respiratory: decreased breath sounds Abdomen: soft, non-tender, present bowel sounds, non-distended Extremities: edema, no tenderness, no cyanosis Laboratory Tests Test 08/03/20 17:12 08/04/20 00:32 08/04/20 04:45 08/04/20 05:14 POC Whole Blood Glucose Pending 181 MG/DL (74-106) H 217 MG/DL (74-106) H White Blood Count 13.6 K/UL (4.8-10.8) H Red Blood Count 3.73 M/UL (4.70-6.10) L Hemoglobin 11.6 G/DL (14.2-18.0) L Hematocrit 36.7 % (42.0-52.0) L Mean Corpuscular Volume 98 FL (80-99) Mean Corpuscular Hemoglobin 31.2 PG (27.0-31.0) H Mean Corpuscular Hemoglobin Concent 31.7 G/DL (32.0-36.0) L Red Cell Distribution Width 13.8 % (11.6-14.8) Platelet Count 203 K/UL (150-450) Mean Platelet Volume 7.0 FL (6.5-10.1) Neutrophils (%) (Auto) % (45.0-75.0) Lymphocytes (%) (Auto) % (20.0-45.0) Monocytes (%) (Auto) % (1.0-10.0) Eosinophils (%) (Auto) % (0.0-3.0) Basophils (%) (Auto) % (0.0-2.0) Neutrophils % (Manual) Pending Lymphocytes % (Manual) Pending Platelet Estimate Pending Platelet Morphology Pending Sodium Level 142 MMOL/L (136-145) Potassium Level 4.5 MMOL/L (3.5-5.1) Chloride Level 102 MMOL/L (98-107) Carbon Dioxide Level 39 MMOL/L (21-32) H Anion Gap 1 mmol/L (5-15) L Blood Urea Nitrogen 26 mg/dL (7-18) H Creatinine 0.5 MG/DL (0.55-1.30) L Estimat Glomerular Filtration Rate > 60 mL/min (>60) Glucose Level 199 MG/DL (74-106) H Calcium Level 8.9 MG/DL (8.5-10.1) Total Bilirubin 0.6 MG/DL (0.2-1.0) Aspartate Amino Transf (AST/SGOT) 45 U/L (15-37) H Alanine Aminotransferase (ALT/SGPT) 31 U/L (12-78) Alkaline Phosphatase 80 U/L (46-116) Total Protein 5.8 G/DL (6.4-8.2) L Albumin 1.7 G/DL (3.4-5.0) L Globulin 4.1 g/dL Albumin/Globulin Ratio 0.4 (1.0-2.7) L Test 08/04/20 09:01 08/04/20 10:31 08/04/20 12:07 Arterial Blood pH 7.366 (7.350-7.450) Arterial Blood Partial Pressure CO2 72.1 mmHg (35.0-45.0) *H Arterial Blood Partial Pressure O2 80.2 mmHg (75.0-100.0) Arterial Blood HCO3 40.4 mmol/L (22.0-26.0) *H Arterial Blood Oxygen Saturation 95.2 % (95-100) Arterial Blood Base Excess 12.0 (-2-2) *H Jacob Test Positive POC Whole Blood Glucose 198 MG/DL (74-106) H 218 MG/DL (74-106) H Plan Problems: (1) Pneumothorax Assessment & Plan: 30M covid on vent peep 16 fi02 100 right ptx s/p right chest tube ett complication replaced 07/01 chest tube vac replaced this AM as well given malfunction high risk low tv cxr noted ill appearing tube and lines checked will need to monitor closely unable to wean vent at this time cont current care plan (2) Respiratory failure (3) Coronavirus infection (4) Diabetes (5) Hypercapnia (6) Hypoxia (7) Asthma (8) HTN (hypertension) (9) Obesity (BMI 30-39.9) (10) Acute respiratory distress syndrome (ARDS) due to 2019-nCoV (11) Acute hypoxemic respiratory failure due to COVID-19 (12) Bradycardia (13) Laceration Mulugeta Butler Aug 04, 2020 12:28
--- NOTE | 2020-08-04 12:45 | NUR ---
NURSE NOTES: Dr. Price notified of the patient ABG results while on AC26, TV: 500, FIo2 of 100% and peep of 16, no verbal orders given at this time and ordered to maintain current setting.
--- NOTE | 2020-08-04 13:35 | NUR ---
RD ASSESSMENT & RECOMMENDATIONS SEE CARE ACTIVITY FOR COMPLETE ASSESSMENT DAILY ESTIMATED NEEDS: Needs based on Critical care 72kg abw 22-28 kcals/kg 2009-2658 total kcals 1.2-2 g protein/kg 86-144 g total protein 25-30 mL/kg 6840-7677 total fluid mLs NUTRITION DIAGNOSIS: * Swallowing difficulty R/T respiratory failure as evidenced by pt now orally intubated, NPO, now w/ NGT to LIS. * Altered nutrition related lab values r/t hyperglcyemia as evidenced by BG POC glu in the 300's-> 200's, pt on Solumedrol CURRENT TF: Vital 1.2 @ 30ml/hr-HELD SINCE 07/31, W/ NGT TO LIS ENTERAL NUTRITION RECOMMENDATIONS: Vital 1.2 for critical care and carb control @ goal of 55ml/hr x24 hrs to provide 1320ml, 1584kcal, 99g prot, 1071ml free water - When medically stable for feeds, initiate Vital 1.2 for critical care and carb control. - Start @ 15ml/hr for 6 hrs - Advance as tolerated 10ml/hr q4-6 hrs to goal - Flush per , HOB over 30 degrees ADDITIONAL RECOMMENDATIONS: 1) Rec to check HgA1C for eval 2) Insulin regimen for improved BG- now on Levemir + NISS 3) Monitor resp status, currently on high flow O2 w/ good po intake Now intubated (07/20), TF recs as above when medically appropriate 4) MONITOR NPO STATUS: TF HELD SINCE 07/31, WITH NGT TO LIS -> REC TPN IF UNABLE TO START TF INT HE NEXT 3 DAYS .
[2020-08-04] MEDS ORDERED: Tubing IV Secondary IV ONE (13:52)
[2020-08-04] MEDS ORDERED: NS 500ML ONE (13:52)
[2020-08-04] MEDS ORDERED: NS 275ml ONE (13:52)
--- NOTE | 2020-08-04 14:30 | NUR ---
NURSE NOTES: chest tube is secured to the floor with the suction chamber bubbling gently and the water seal having scant bubbling, the draining chamber is is collecting reddish serosanguineous fluid. the dressing in dry and intact with tubing able to free flow of drainage. connected top wall suction.
[2020-08-04] MEDS: cefTRIAXone 1 GM in D5W 55 ML IVPB SCH (17:26)
[2020-08-04] MEDS: Acetaminophen 650mg/20.3ml NG PRN (17:26)
--- NOTE | 2020-08-04 17:30 | NUR ---
NURSE NOTES: Cooling blanket placed on the patient for temperature of 101.1, water placed into the machine and is functioning. ice packs o placed on the patient underarms, groin, and abdomen. Tylenol also administered with ice water flushes.
--- NOTE | 2020-08-04 19:22 | NUR ---
NURSE HAND-OFF REPORT: Latest Vital Signs: Temperature 98.2 , Pulse 105 , B/P 104 /64 , Respiratory Rate 24 , O2 SAT 94 , Mechanical Ventilator, O2 Flow Rate . Vital Sign Comment: EKG Rhythm: Sinus Tachycardia Rhythm change?: N MD Notified?: Ildefonso Diana at bedside for re-intubation MD Response: Latest Bradley Fall Score: 50 Fall Risk: High Risk Safety Measures: Call light Within Reach, Bed Alarm Zone 1, Side Rails Side Rails x3, Bed position Low and Locked. Fall Precautions: Yellow Socks Yellow Gown Door Sign Patient Fall Education Report given to ELIER Trujillo.
--- NOTE | 2020-08-04 19:30 | NUR ---
NURSE NOTES: Received pt orally intubated on ac mode, opened eyes when turned to sides, sedated with Versed drip at 10mg/hr.at RASS SCORE -2. VSS. chest tube to LIS , with minimal serosanguinous drainage. Well secured chest tube tubings.
[2020-08-04] MEDS: Dyna-Hex 2% Top Sol 2oz TOPIC SCH (20:28)
[2020-08-04] MEDS: Vitamin D 1000 units Tab GT SCH (21:27)
[2020-08-05] VITALS (48 sets, daily range): BP systolic 113–157; BP diastolic 63–92
--- NOTE | 2020-08-05 | NUR ---
NURSE NOTES: NGT clamped , residual 10ml. HOB kept elevated.
--- NOTE | 2020-08-05 00:10 | Cardiology Progress Note ---
Subjective DATE OF SERVICE: Aug 04, 2020 Condition remains critical and prognosis guarded Increasingly hypoxic; worsening sinus tachycardia. S/P chest tube for PTX He remains on full vent support, on 100% FIO2 - orally intubated. CXR (08/04) unchanged bilateral infiltrates Objective Last 24 Hour Vital Signs Date Time Temp Pulse Resp B/P (MAP) Pulse Ox O2 Delivery O2 Flow Rate FiO2 08/04/20 23:03 128 26 100 08/04/20 22:43 26 Mechanical Ventilator 100 08/04/20 19:15 98 28 100 08/04/20 19:00 23 Mechanical Ventilator 100 08/04/20 19:00 105 24 104/64 (77) 94 08/04/20 18:30 98.2 110 24 117/62 (80) 93 08/04/20 18:19 100.2 08/04/20 18:00 25 Mechanical Ventilator 100 08/04/20 18:00 122 25 132/74 (93) 93 08/04/20 17:30 125 26 135/78 (97) 94 08/04/20 17:00 131 29 142/89 (106) 93 08/04/20 17:00 28 Mechanical Ventilator 100 08/04/20 16:30 133 29 149/89 (109) 93 08/04/20 16:30 132 28 149/89 (109) 93 08/04/20 16:00 Mechanical Ventilator 08/04/20 16:00 28 Mechanical Ventilator 100 08/04/20 16:00 132 08/04/20 16:00 132 28 151/86 (107) 93 08/04/20 16:00 100.8 129 27 151/86 (107) 93 08/04/20 16:00 100 08/04/20 16:00 129 08/04/20 15:34 129 28 100 08/04/20 15:30 129 27 142/87 (105) 91 08/04/20 15:30 129 27 142/87 (105) 93 08/04/20 15:00 133 28 144/83 (103) 93 08/04/20 15:00 27 Mechanical Ventilator 100 08/04/20 15:00 131 28 144/83 (103) 92 08/04/20 14:30 132 28 156/79 (104) 93 08/04/20 14:30 132 29 156/79 (104) 93 08/04/20 14:00 131 28 150/80 (103) 93 08/04/20 14:00 27 Mechanical Ventilator 100 08/04/20 14:00 127 27 150/80 (103) 93 08/04/20 13:30 131 28 150/78 (102) 93 08/04/20 13:00 27 Mechanical Ventilator 100 08/04/20 13:00 131 28 141/79 (99) 90 08/04/20 12:41 26 Mechanical Ventilator 100 08/04/20 12:30 128 28 144/84 (104) 92 08/04/20 12:00 99.9 122 28 144/83 (103) 93 08/04/20 12:00 100 08/04/20 12:00 Mechanical Ventilator 08/04/20 12:00 27 Mechanical Ventilator 100 08/04/20 11:58 122 08/04/20 11:30 127 31 147/79 (101) 93 08/04/20 11:26 121 28 100 08/04/20 11:00 27 Mechanical Ventilator 100 08/04/20 11:00 121 28 140/79 (99) 94 08/04/20 10:30 117 27 117/69 (85) 94 08/04/20 10:08 114 26 95 Mechanical Ventilator 100 08/04/20 10:00 27 Mechanical Ventilator 100 08/04/20 10:00 118 26 141/86 (104) 95 08/04/20 09:30 116 26 130/76 (94) 95 08/04/20 09:00 26 Mechanical Ventilator 100 08/04/20 09:00 115 24 141/74 (96) 95 08/04/20 08:30 117 22 142/81 (101) 96 08/04/20 08:00 118 26 100 08/04/20 08:00 Mechanical Ventilator 08/04/20 08:00 27 Mechanical Ventilator 100 08/04/20 08:00 117 08/04/20 08:00 100 08/04/20 08:00 99.7 112 24 137/88 (104) 95 08/04/20 07:30 116 6 132/81 (98) 96 08/04/20 07:15 118 14 141/77 (98) 96 08/04/20 07:00 112 8 149/76 (100) 95 08/04/20 07:00 Mechanical Ventilator 08/04/20 06:45 120 27 140/74 (96) 96 08/04/20 06:30 116 20 135/68 (90) 96 08/04/20 06:15 116 5 138/81 (100) 97 08/04/20 06:00 114 14 120/71 (87) 97 08/04/20 06:00 24 Mechanical Ventilator 100 08/04/20 05:45 117 8 137/80 (99) 97 08/04/20 05:30 107 6 129/77 (94) 97 08/04/20 05:15 109 24 117/71 (86) 97 08/04/20 05:00 110 24 121/71 (88) 97 08/04/20 05:00 25 100 08/04/20 04:45 25 Mechanical Ventilator 100 08/04/20 04:30 24 Mechanical Ventilator 100 08/04/20 04:15 122 27 120/86 (97) 96 08/04/20 04:15 23 Mechanical Ventilator 100 08/04/20 04:00 99.0 117 18 146/82 (103) 96 08/04/20 04:00 Mechanical Ventilator 08/04/20 04:00 25 Mechanical Ventilator 100 08/04/20 04:00 121 08/04/20 04:00 100 08/04/20 03:45 116 26 139/77 (97) 95 08/04/20 03:30 123 133/76 (95) 08/04/20 03:00 122 123/74 (90) 93 08/04/20 02:55 28 100 08/04/20 02:30 123 117/74 (88) 93 08/04/20 02:08 26 Mechanical Ventilator 100 08/04/20 02:00 126 124/76 (92) 94 08/04/20 01:54 125 27 100 08/04/20 01:08 22 Mechanical Ventilator 100 08/04/20 01:00 124 136/76 (96) 95 HEENT: Orally intubated, Mechanically Ventilated, Thin secretions ET Tube RHYTHM: SB LUNGS: bilateral rhonchi CARDIAC: regular rhythm, normal S1 and S2, bradycardia ABDOMEN: normal bowel sounds, non tender, soft EXTREMITIES: normal range of motion, non-tender Laboratory Tests Test 08/04/20 00:32 08/04/20 04:45 08/04/20 05:14 08/04/20 09:01 POC Whole Blood Glucose 181 MG/DL (74-106) H 217 MG/DL (74-106) H White Blood Count 13.6 K/UL (4.8-10.8) H Red Blood Count 3.73 M/UL (4.70-6.10) L Hemoglobin 11.6 G/DL (14.2-18.0) L Hematocrit 36.7 % (42.0-52.0) L Mean Corpuscular Volume 98 FL (80-99) Mean Corpuscular Hemoglobin 31.2 PG (27.0-31.0) H Mean Corpuscular Hemoglobin Concent 31.7 G/DL (32.0-36.0) L Red Cell Distribution Width 13.8 % (11.6-14.8) Platelet Count 203 K/UL (150-450) Mean Platelet Volume 7.0 FL (6.5-10.1) Neutrophils (%) (Auto) % (45.0-75.0) Lymphocytes (%) (Auto) % (20.0-45.0) Monocytes (%) (Auto) % (1.0-10.0) Eosinophils (%) (Auto) % (0.0-3.0) Basophils (%) (Auto) % (0.0-2.0) Differential Total Cells Counted 100 Neutrophils % (Manual) 95 % (45-75) H Lymphocytes % (Manual) 3 % (20-45) L Monocytes % (Manual) 2 % (1-10) Eosinophils % (Manual) 0 % (0-3) Basophils % (Manual) 0 % (0-2) Band Neutrophils 0 % (0-8) Platelet Estimate Adequate Platelet Morphology Normal Hypochromasia 1+ Sodium Level 142 MMOL/L (136-145) Potassium Level 4.5 MMOL/L (3.5-5.1) Chloride Level 102 MMOL/L (98-107) Carbon Dioxide Level 39 MMOL/L (21-32) H Anion Gap 1 mmol/L (5-15) L Blood Urea Nitrogen 26 mg/dL (7-18) H Creatinine 0.5 MG/DL (0.55-1.30) L Estimat Glomerular Filtration Rate > 60 mL/min (>60) Glucose Level 199 MG/DL (74-106) H Calcium Level 8.9 MG/DL (8.5-10.1) Total Bilirubin 0.6 MG/DL (0.2-1.0) Aspartate Amino Transf (AST/SGOT) 45 U/L (15-37) H Alanine Aminotransferase (ALT/SGPT) 31 U/L (12-78) Alkaline Phosphatase 80 U/L (46-116) Total Protein 5.8 G/DL (6.4-8.2) L Albumin 1.7 G/DL (3.4-5.0) L Globulin 4.1 g/dL Albumin/Globulin Ratio 0.4 (1.0-2.7) L Arterial Blood pH 7.366 (7.350-7.450) Arterial Blood Partial Pressure CO2 72.1 mmHg (35.0-45.0) *H Arterial Blood Partial Pressure O2 80.2 mmHg (75.0-100.0) Arterial Blood HCO3 40.4 mmol/L (22.0-26.0) *H Arterial Blood Oxygen Saturation 95.2 % (95-100) Arterial Blood Base Excess 12.0 (-2-2) *H Jacob Test Positive Test 08/04/20 10:31 08/04/20 12:07 POC Whole Blood Glucose 198 MG/DL (74-106) H 218 MG/DL (74-106) H Assessment/Plan Assessment/Plan Covid 19 PNA s/p PTX Secondary sinus tachycardia K.pneumonia PNA Acute respiratory failure with severe Hypoxia Sinus bradycardia resolved Diabetes mellitus with hyperglycemia due to steroids Transaminitis Mod protein/calorie malnutrition CRITICAL & GUARDED Chest tube management Abx per ID Continuous cardiac monitoring Anticoagulation and steroid rx Titrate oxygen as able; prone. Vent settings adjusted by pulmonary Anti-viral rx Protein suppl Insulin cov'g by SS; levemir dose advanced further. Chuck Swain MD Aug 05, 2020 00:10
[2020-08-05] MEDS: NovoLOG Insulin Flexpen SUBQ SCH ×5 (00:38→23:33)
--- NOTE | 2020-08-05 04:00 | NUR ---
NURSE NOTES: Febrile 101.5, cooling measures started.
--- NOTE | 2020-08-05 04:00 | NUR ---
NURSE NOTES: Complete bed bath with bed changed was done.
[2020-08-05] MEDS: Vancomycin 1.25gm Premix IVPB SCH ×3 (04:19→19:19)
--- NOTE | 2020-08-05 05:00 | NUR ---
NURSE NOTES: afebrile at this time 97f. Cooling blanket turned off.
--- NOTE | 2020-08-05 06:00 | NUR ---
NURSE NOTES: Chest tube drainage 20ml serosanguinous.
[2020-08-05 07:01] LABS: HEMATOCRIT 36.4 % (42.0-52.0); HEMOGLOBIN 11.8 G/DL (14.2-18.0); MEAN CORPUSCULAR VOLUME 97 FL (80-99); PLATELET COUNT 263 K/UL (150-450); RED BLOOD COUNT 3.77 M/UL (4.70-6.10); RED CELL DISTRIBUTION WIDTH 13.8 % (11.6-14.8); WHITE BLOOD COUNT 13.7 K/UL (4.8-10.8)
--- NOTE | 2020-08-05 07:15 | NUR ---
RESPIRATORY NOTE: PT RECEIVED STABLE ON CMV WITH CURRENT SETTINGS: AC/VC 26, 500, 100%, +16. ALARMS ARE ON AND AUDIBLE. VENT CIRCUIT IS SECURE AND OUT OF THE WAY. AIRWAY IS SECURE AND PATENT. WILL CONTINUE TO CLOSELY MONITOR.
--- NOTE | 2020-08-05 07:20 | NUR ---
NURSE NOTES: Endorsed to RN Chuck hinojosa.(ready to hung).
--- NOTE | 2020-08-05 07:36 | NUR ---
NURSE HAND-OFF REPORT: Latest Vital Signs: Temperature 99.8 , Pulse 107 , B/P 124 /64 , Respiratory Rate 25 , O2 SAT 95 , Mechanical Ventilator, O2 Flow Rate . Vital Sign Comment: EKG Rhythm: Sinus Tachycardia Rhythm change?: N MD Notified?: Ildefonso Diana at bedside for re-intubation MD Response: Latest Bradley Fall Score: 50 Fall Risk: High Risk Safety Measures: Call light Within Reach, Bed Alarm Zone 1, Side Rails Side Rails x3, Bed position Low and Locked. Fall Precautions: Yellow Socks Yellow Gown Door Sign Patient Fall Education Report given to Chuck THAPA.
--- NOTE | 2020-08-05 07:51 | General Progress Note ---
Subjective ROS Limited/Unobtainable: Yes Constitutional: Reports: malaise, weakness HEENT: Reports: no symptoms Respiratory: Reports: shortness of breath Gastrointestinal/Abdominal: Reports: difficulty swallowing Genitourinary: Reports: no symptoms Neurologic/Psychiatric: Reports: no symptoms Endocrine: Reports: no symptoms Hematologic/Lymphatic: Reports: no symptoms Allergies: Coded Allergies: No Known Allergies (Unverified , 03/08/17) All Systems: reviewed and negative except above Subjective no change. sedated on the vent. o2 sats slightly better- low to mid 90s. Po 80s on abg. on tube feeds Objective Last 24 Hour Vital Signs Date Time Temp Pulse Resp B/P (MAP) Pulse Ox O2 Delivery O2 Flow Rate FiO2 08/05/20 07:00 107 22 124/64 (84) 95 08/05/20 07:00 25 Mechanical Ventilator 100 08/05/20 06:30 116 24 135/82 (99) 95 08/05/20 06:00 99.8 122 26 133/76 (95) 96 08/05/20 06:00 24 Non-Rebreather 100 08/05/20 05:30 125 27 136/76 (96) 95 08/05/20 05:00 100.0 139 30 150/81 (104) 94 08/05/20 05:00 25 Mechanical Ventilator 100 08/05/20 04:30 139 29 147/81 (103) 94 08/05/20 04:00 100 08/05/20 04:00 Mechanical Ventilator 08/05/20 04:00 25 Mechanical Ventilator 100 08/05/20 04:00 101.5 138 29 145/82 (103) 94 08/05/20 04:00 135 08/05/20 03:30 137 29 147/83 (104) 93 08/05/20 03:00 22 Mechanical Ventilator 100 08/05/20 03:00 139 29 150/85 (106) 92 08/05/20 02:55 139 30 100 08/05/20 02:45 138 29 149/84 (105) 94 08/05/20 02:30 137 28 151/76 (101) 94 08/05/20 02:00 134 26 145/85 (105) 95 08/05/20 02:00 25 Mechanical Ventilator 100 08/05/20 01:45 136 28 152/84 (106) 95 08/05/20 01:30 134 28 149/85 (106) 95 08/05/20 01:15 138 29 145/92 (109) 95 08/05/20 01:00 135 28 145/83 (103) 96 08/05/20 01:00 28 Mechanical Ventilator 100 08/05/20 00:30 133 27 133/83 (100) 95 08/05/20 00:00 134 08/05/20 00:00 27 Mechanical Ventilator 100 08/05/20 00:00 Mechanical Ventilator 08/05/20 00:00 100 08/05/20 00:00 100.0 135 26 145/80 (101) 95 08/04/20 23:30 130 26 142/81 (101) 96 08/04/20 23:03 128 26 100 08/04/20 23:00 126 26 135/75 (95) 96 08/04/20 23:00 26 Mechanical Ventilator 100 08/04/20 22:43 26 Mechanical Ventilator 100 08/04/20 22:30 121 26 132/73 (92) 97 08/04/20 22:00 121 27 121/73 (89) 96 08/04/20 22:00 26 Mechanical Ventilator 100 08/04/20 21:30 114 28 128/73 (91) 96 08/04/20 21:00 28 Mechanical Ventilator 100 08/04/20 21:00 109 25 117/76 (90) 96 08/04/20 20:30 103 22 106/65 (79) 96 08/04/20 20:00 103 08/04/20 20:00 98.0 100 24 109/66 (80) 97 08/04/20 20:00 100 08/04/20 20:00 24 Mechanical Ventilator 100 08/04/20 20:00 Mechanical Ventilator 08/04/20 19:15 98 28 100 08/04/20 19:00 23 Mechanical Ventilator 100 08/04/20 19:00 105 24 104/64 (77) 94 08/04/20 18:30 98.2 110 24 117/62 (80) 93 08/04/20 18:19 100.2 08/04/20 18:00 25 Mechanical Ventilator 100 08/04/20 18:00 122 25 132/74 (93) 93 08/04/20 17:30 125 26 135/78 (97) 94 08/04/20 17:00 131 29 142/89 (106) 93 08/04/20 17:00 28 Mechanical Ventilator 100 08/04/20 16:30 133 29 149/89 (109) 93 08/04/20 16:30 132 28 149/89 (109) 93 08/04/20 16:00 Mechanical Ventilator 08/04/20 16:00 28 Mechanical Ventilator 100 08/04/20 16:00 132 08/04/20 16:00 132 28 151/86 (107) 93 08/04/20 16:00 100.8 129 27 151/86 (107) 93 08/04/20 16:00 100 08/04/20 16:00 129 08/04/20 15:34 129 28 100 08/04/20 15:30 129 27 142/87 (105) 91 08/04/20 15:30 129 27 142/87 (105) 93 08/04/20 15:00 133 28 144/83 (103) 93 08/04/20 15:00 27 Mechanical Ventilator 100 08/04/20 15:00 131 28 144/83 (103) 92 08/04/20 14:30 132 28 156/79 (104) 93 08/04/20 14:30 132 29 156/79 (104) 93 08/04/20 14:00 131 28 150/80 (103) 93 08/04/20 14:00 27 Mechanical Ventilator 100 08/04/20 14:00 127 27 150/80 (103) 93 08/04/20 13:30 131 28 150/78 (102) 93 08/04/20 13:00 27 Mechanical Ventilator 100 08/04/20 13:00 131 28 141/79 (99) 90 08/04/20 12:41 26 Mechanical Ventilator 100 08/04/20 12:30 128 28 144/84 (104) 92 08/04/20 12:00 99.9 122 28 144/83 (103) 93 08/04/20 12:00 100 08/04/20 12:00 Mechanical Ventilator 08/04/20 12:00 27 Mechanical Ventilator 100 08/04/20 11:58 122 08/04/20 11:30 127 31 147/79 (101) 93 08/04/20 11:26 121 28 100 08/04/20 11:00 27 Mechanical Ventilator 100 08/04/20 11:00 121 28 140/79 (99) 94 08/04/20 10:30 117 27 117/69 (85) 94 08/04/20 10:08 114 26 95 Mechanical Ventilator 100 08/04/20 10:00 27 Mechanical Ventilator 100 08/04/20 10:00 118 26 141/86 (104) 95 08/04/20 09:30 116 26 130/76 (94) 95 08/04/20 09:00 26 Mechanical Ventilator 100 08/04/20 09:00 115 24 141/74 (96) 95 08/04/20 08:30 117 22 142/81 (101) 96 08/04/20 08:00 118 26 100 08/04/20 08:00 Mechanical Ventilator 08/04/20 08:00 27 Mechanical Ventilator 100 08/04/20 08:00 117 08/04/20 08:00 100 08/04/20 08:00 99.7 112 24 137/88 (104) 95 Intake and Output 08/04/20 08/05/20 19:00 07:00 Intake Total 665.57320 ml 986.677 ml Output Total 765 ml 620 ml Balance -99.09985 ml 366.677 ml Free Water 120 ml 80 ml IV Total 545.04346 ml 906.677 ml Output Urine Total 765 ml 600 ml Chest Tube Drainage Total 20 ml Laboratory Tests 08/04/20 09:01: Arterial Blood pH 7.366, Arterial Blood Partial Pressure CO2 72.1*H, Arterial Blood Partial Pressure O2 80.2, Arterial Blood HCO3 40.4*H, Arterial Blood Oxygen Saturation 95.2, Arterial Blood Base Excess 12.0*H, Jacob Test Positive 08/04/20 10:31: POC Whole Blood Glucose 198H 08/04/20 12:07: POC Whole Blood Glucose 218H 08/05/20 06:04: White Blood Count 13.7H, Red Blood Count 3.77L, Hemoglobin 11.8L, Hematocrit 36.4L, Mean Corpuscular Volume 97, Mean Corpuscular Hemoglobin 31.3H, Mean Corpuscular Hemoglobin Concent 32.4, Red Cell Distribution Width 13.8, Platelet Count 263, Mean Platelet Volume 7.0, Neutrophils (%) (Auto) , Lymphocytes (%) (Auto) , Monocytes (%) (Auto) , Eosinophils (%) (Auto) , Basophils (%) (Auto) , Neutrophils % (Manual) [Pending], Lymphocytes % (Manual) [Pending], Platelet Estimate [Pending], Platelet Morphology [Pending], Sodium Level [Pending], Potassium Level [Pending], Chloride Level [Pending], Carbon Dioxide Level [Pending], Blood Urea Nitrogen [Pending], Creatinine [Pending], Estimat Glomerular Filtration Rate [Pending], Glucose Level [Pending], Calcium Level [Pending], Total Bilirubin [Pending], Aspartate Amino Transf (AST/SGOT) [Pending], Alanine Aminotransferase (ALT/SGPT) [Pending], Alkaline Phosphatase [Pending], Total Protein [Pending], Albumin [Pending], Globulin [Pending] Height (Feet): 5 Height (Inches): 6.00 Weight (Pounds): 209 Objective deferred Assessment/Plan Problem List: (1) Coronavirus infection ICD Codes: B34.2 - Coronavirus infection, unspecified SNOMED: [id number] Status: not improved Assessment/Plan: vent support resp care wean fio2 as able dvt/stress ulcer prophylaxis iv abx per id remains critical and guarded per surgery too unstable for trach. pt would benefit from transfer to tertiary care hospital for higher level care - such as [facility] Rolando Cherry MD Aug 05, 2020 07:51
--- NOTE | 2020-08-05 07:53 | NUR ---
CASE MANAGEMENT:REVIEW 08/05/20 SI: COVID PNA. ACUTE RESPIRATORY FAILURE~INTUBATED ARDS. PNEUMOTHORAX ~ CHEST TUBE TO SUCTION 100.0 107 25 124/64 SAT 95% ON VENT SUPPORT W/100% FIO2 WBC+13.7 PCO2+72.1 IS: VERSED GTT IV ROCEPHIN Q24 IV VANCOMYCIN Q8HRS IV SOLUMEDROL Q12 IV PEPCID Q12 IVF@60/HR LOVENOX SQ Q12 : ICU STATUS DCP: FROM HOME PLAN: CHEST TUBE TO SUCTION NG TUBE NOW CLAMPED UNABLE TO WEAN ~ POOR PROGNOSIS
[2020-08-05 08:20] LABS: ALANINE AMINOTRANSFERASE 30 U/L (12-78); ALBUMIN 1.8 G/DL (3.4-5.0); ALBUMIN/GLOBULIN RATIO 0.4 (1.0-2.7); ALKALINE PHOSPHATASE 77 U/L (46-116); ANION GAP 0 mmol/L (5-15); ASPARTATE AMINO TRANSFERASE 48 U/L (15-37); BILIRUBIN,TOTAL 0.6 MG/DL (0.2-1.0); BLOOD UREA NITROGEN 25 mg/dL (7-18); CALCIUM 8.6 MG/DL (8.5-10.1); CARBON DIOXIDE 40 MMOL/L (21-32); CHLORIDE 104 MMOL/L (98-107); CREATININE 0.6 MG/DL (0.55-1.30); POTASSIUM 4.4 MMOL/L (3.5-5.1); SODIUM 144 MMOL/L (136-145)
--- NOTE | 2020-08-05 08:28 | Pulmonology Progress Note ---
Subjective ROS Limited/Unobtainable: Yes Constitutional: Reports: other Gastrointestinal/Abdominal: Denies: nausea, vomiting, diarrhea Musculoskeletal: Denies: pain Allergies: Coded Allergies: No Known Allergies (Unverified , 03/08/17) All Systems: reviewed and negative except above Subjective not improved much on high oxygen and sats >90 on vent full code Objective Last 24 Hour Vital Signs Date Time Temp Pulse Resp B/P (MAP) Pulse Ox O2 Delivery O2 Flow Rate FiO2 08/05/20 08:00 97.8 103 23 128/76 (93) 95 08/05/20 08:00 100 08/05/20 07:30 101 24 113/67 (82) 94 08/05/20 07:00 107 22 124/64 (84) 95 08/05/20 07:00 25 Mechanical Ventilator 100 08/05/20 06:30 116 24 135/82 (99) 95 08/05/20 06:00 99.8 122 26 133/76 (95) 96 08/05/20 06:00 24 Non-Rebreather 100 08/05/20 05:30 125 27 136/76 (96) 95 08/05/20 05:00 100.0 139 30 150/81 (104) 94 08/05/20 05:00 25 Mechanical Ventilator 100 08/05/20 04:30 139 29 147/81 (103) 94 08/05/20 04:00 100 08/05/20 04:00 Mechanical Ventilator 08/05/20 04:00 25 Mechanical Ventilator 100 08/05/20 04:00 101.5 138 29 145/82 (103) 94 08/05/20 04:00 135 08/05/20 03:30 137 29 147/83 (104) 93 08/05/20 03:00 22 Mechanical Ventilator 100 08/05/20 03:00 139 29 150/85 (106) 92 08/05/20 02:55 139 30 100 08/05/20 02:45 138 29 149/84 (105) 94 08/05/20 02:30 137 28 151/76 (101) 94 08/05/20 02:00 134 26 145/85 (105) 95 08/05/20 02:00 25 Mechanical Ventilator 100 08/05/20 01:45 136 28 152/84 (106) 95 08/05/20 01:30 134 28 149/85 (106) 95 08/05/20 01:15 138 29 145/92 (109) 95 08/05/20 01:00 135 28 145/83 (103) 96 08/05/20 01:00 28 Mechanical Ventilator 100 08/05/20 00:30 133 27 133/83 (100) 95 08/05/20 00:00 134 08/05/20 00:00 27 Mechanical Ventilator 100 08/05/20 00:00 Mechanical Ventilator 08/05/20 00:00 100 08/05/20 00:00 100.0 135 26 145/80 (101) 95 08/04/20 23:30 130 26 142/81 (101) 96 08/04/20 23:03 128 26 100 08/04/20 23:00 126 26 135/75 (95) 96 08/04/20 23:00 26 Mechanical Ventilator 100 08/04/20 22:43 26 Mechanical Ventilator 100 08/04/20 22:30 121 26 132/73 (92) 97 08/04/20 22:00 121 27 121/73 (89) 96 08/04/20 22:00 26 Mechanical Ventilator 100 08/04/20 21:30 114 28 128/73 (91) 96 08/04/20 21:00 28 Mechanical Ventilator 100 08/04/20 21:00 109 25 117/76 (90) 96 08/04/20 20:30 103 22 106/65 (79) 96 08/04/20 20:00 103 08/04/20 20:00 98.0 100 24 109/66 (80) 97 08/04/20 20:00 100 08/04/20 20:00 24 Mechanical Ventilator 100 08/04/20 20:00 Mechanical Ventilator 08/04/20 19:15 98 28 100 08/04/20 19:00 23 Mechanical Ventilator 100 08/04/20 19:00 105 24 104/64 (77) 94 08/04/20 18:30 98.2 110 24 117/62 (80) 93 08/04/20 18:19 100.2 08/04/20 18:00 25 Mechanical Ventilator 100 08/04/20 18:00 122 25 132/74 (93) 93 08/04/20 17:30 125 26 135/78 (97) 94 08/04/20 17:00 131 29 142/89 (106) 93 08/04/20 17:00 28 Mechanical Ventilator 100 08/04/20 16:30 133 29 149/89 (109) 93 08/04/20 16:30 132 28 149/89 (109) 93 08/04/20 16:00 Mechanical Ventilator 08/04/20 16:00 28 Mechanical Ventilator 100 08/04/20 16:00 132 08/04/20 16:00 132 28 151/86 (107) 93 08/04/20 16:00 100.8 129 27 151/86 (107) 93 08/04/20 16:00 100 08/04/20 16:00 129 08/04/20 15:34 129 28 100 08/04/20 15:30 129 27 142/87 (105) 91 08/04/20 15:30 129 27 142/87 (105) 93 08/04/20 15:00 133 28 144/83 (103) 93 08/04/20 15:00 27 Mechanical Ventilator 100 08/04/20 15:00 131 28 144/83 (103) 92 08/04/20 14:30 132 28 156/79 (104) 93 08/04/20 14:30 132 29 156/79 (104) 93 08/04/20 14:00 131 28 150/80 (103) 93 08/04/20 14:00 27 Mechanical Ventilator 100 08/04/20 14:00 127 27 150/80 (103) 93 08/04/20 13:30 131 28 150/78 (102) 93 08/04/20 13:00 27 Mechanical Ventilator 100 08/04/20 13:00 131 28 141/79 (99) 90 08/04/20 12:41 26 Mechanical Ventilator 100 08/04/20 12:30 128 28 144/84 (104) 92 08/04/20 12:00 99.9 122 28 144/83 (103) 93 08/04/20 12:00 100 08/04/20 12:00 Mechanical Ventilator 08/04/20 12:00 27 Mechanical Ventilator 100 08/04/20 11:58 122 08/04/20 11:30 127 31 147/79 (101) 93 08/04/20 11:26 121 28 100 08/04/20 11:00 27 Mechanical Ventilator 100 08/04/20 11:00 121 28 140/79 (99) 94 08/04/20 10:30 117 27 117/69 (85) 94 08/04/20 10:08 114 26 95 Mechanical Ventilator 100 08/04/20 10:00 27 Mechanical Ventilator 100 08/04/20 10:00 118 26 141/86 (104) 95 08/04/20 09:30 116 26 130/76 (94) 95 08/04/20 09:00 26 Mechanical Ventilator 100 08/04/20 09:00 115 24 141/74 (96) 95 08/04/20 08:30 117 22 142/81 (101) 96 Intake and Output 08/04/20 08/05/20 19:00 07:00 Intake Total 665.49950 ml 986.677 ml Output Total 765 ml 620 ml Balance -99.23212 ml 366.677 ml Free Water 120 ml 80 ml IV Total 545.07536 ml 906.677 ml Output Urine Total 765 ml 600 ml Chest Tube Drainage Total 20 ml Objective deferred due to COVID Laboratory Tests 08/04/20 09:01: Arterial Blood pH 7.366, Arterial Blood Partial Pressure CO2 72.1*H, Arterial Blood Partial Pressure O2 80.2, Arterial Blood HCO3 40.4*H, Arterial Blood Oxygen Saturation 95.2, Arterial Blood Base Excess 12.0*H, Jacob Test Positive 08/04/20 10:31: POC Whole Blood Glucose 198H 08/04/20 12:07: POC Whole Blood Glucose 218H 08/05/20 06:04: White Blood Count 13.7H, Red Blood Count 3.77L, Hemoglobin 11.8L, Hematocrit 36.4L, Mean Corpuscular Volume 97, Mean Corpuscular Hemoglobin 31.3H, Mean Corpuscular Hemoglobin Concent 32.4, Red Cell Distribution Width 13.8, Platelet Count 263, Mean Platelet Volume 7.0, Neutrophils (%) (Auto) , Lymphocytes (%) (Auto) , Monocytes (%) (Auto) , Eosinophils (%) (Auto) , Basophils (%) (Auto) , Neutrophils % (Manual) [Pending], Lymphocytes % (Manual) [Pending], Platelet Estimate [Pending], Platelet Morphology [Pending], Sodium Level 144, Potassium Level 4.4, Chloride Level 104, Carbon Dioxide Level 40H, Anion Gap 0L, Blood Ure a Nitrogen 25H, Creatinine 0.6, Estimat Glomerular Filtration Rate > 60, Glucose Level 185H, Calcium Level 8.6, Total Bilirubin 0.6, Aspartate Amino Transf (AST/SGOT) 48H, Alanine Aminotransferase (ALT/SGPT) 30, Alkaline Phosphatase 77, Total Protein 5.8L, Albumin 1.8L, Globulin 4.0, Albumin/Globulin Ratio 0.4L Current Medications Medications (Trade) Dose Ordered Sig/Milagro Route PRN Reason Start Time Stop Time Status Last Admin Dose Admin Acetaminophen (Tylenol) 650 mg Q4H PRN RECTAL Mild Pain (Pain Scale 1-3) 07/24/20 18:15 08/23/20 18:14 07/25/20 11:49 Acetaminophen (Tylenol) 650 mg Q6H PRN NG Temp >100.5 07/26/20 08:30 08/25/20 08:29 08/03/20 09:36 Acetaminophen (Tylenol) 650 mg Q6H PRN NG Mild Pain (Pain Scale 1-3) 07/26/20 08:30 08/25/20 08:29 08/04/20 17:26 Albuterol/ Ipratropium (Combivent Respimat) 2 puff Q2H PRN INH Shortness of Breath 07/09/20 21:45 08/08/20 21:44 07/19/20 09:17 Ascorbic Acid (Vitamin C) 500 mg EVERY 12 HOURS NG 07/26/20 21:00 08/10/20 08:59 08/04/20 21:27 Ceftriaxone Sodium 1 gm/ Dextrose 55 ml @ 110 mls/hr Q24H IVPB 08/01/20 18:00 08/08/20 17:59 08/04/20 17:26 Chlorhexidine Gluconate (Marycarmen-Hex 2%) 1 applic DAILY@2000 TOPIC 07/20/20 20:00 10/18/20 19:59 08/04/20 20:28 Dextrose (Dextrose 50%) 25 ml Q30M PRN IV Hypoglycemia 07/23/20 13:15 10/21/20 13:14 Dextrose (Dextrose 50%) 50 ml Q30M PRN IV Hypoglycemia 07/23/20 13:15 10/21/20 13:14 Dextrose/Sodium Chloride 1,000 ml @ 60 mls/hr [id number] PRN IV WHILE PRONING ONLY 12/27/20 17:45 08/23/20 17:44 07/24/20 18:01 Docusate Sodium (Colace) 100 mg EVERY 12 HOURS NG 07/27/20 21:00 08/26/20 20:59 08/04/20 21:29 Enoxaparin Sodium (Lovenox) 40 mg Q12HR SUBQ 08/01/20 21:00 10/30/20 20:59 08/04/20 21:28 Famotidine (Pepcid I.v.) 20 mg Q12HR IVP 08/04/20 21:00 09/03/20 20:59 08/04/20 21:29 Insulin Aspart (NovoLOG) EVERY 6 HOURS SUBQ 07/28/20 00:00 10/21/20 15:59 08/05/20 06:05 Insulin Detemir (Levemir) 26 units EVERY 12 HOURS SUBQ 07/26/20 09:00 10/20/20 08:59 08/04/20 22:37 Methylprednisolone Sodium Succinate (Solu-MEDROL) 40 mg EVERY 12 HOURS IVP 07/25/20 12:30 10/23/20 12:29 08/04/20 21:29 Midazolam HCl 100 mg/Sodium Chloride 200 ml @ 0 mls/hr Q24H PRN IV Agitation 08/03/20 16:30 08/05/20 10:29 08/04/20 22:43 Ondansetron HCl (Zofran) 4 mg Q6H PRN IVP Nausea & Vomiting 07/09/20 21:45 08/08/20 21:44 Promethazine HCl/ Codeine (Phenergan with Codeine) 5 ml Q4H PRN ORAL For Cough 07/11/20 15:15 08/10/20 15:14 07/26/20 18:26 Vancomycin HCl 250 ml @ 166.667 mls/hr Q8H IVPB 08/03/20 20:00 08/08/20 19:59 08/05/20 04:19 Vancomycin HCl (Vanco pharmacy to dose) 1 ea DAILY PRN MISC Per rx protocol 07/26/20 09:00 08/25/20 08:59 Vitamin B Complex (Vitamin B Complex) 1 tab DAILY NG 07/24/20 09:00 10/09/20 08:59 1/7/21 10:18 Vitamin D (Vitamin D) 1,000 unit BEDTIME GT 07/27/20 21:00 08/13/20 09:29 08/04/20 21:27 Assessment/Plan Assessment/Plan acute hypoxemic respiratory failure COVID pneumonia Asthma elevated liver enzymes DNR ARDS with fibrosing phase pneumothorax elevated TG PLAN borderline oxygen saturation/ not improved overall CT per surgery needs trach for chronic vent management monitor ABG respiratory care ID noted DVT prophylaxis prognosis appears poor for meaningful recovery monitor respiratory status for change doubt will see improvement in oxygen needs medications/laboratory data/nursing notes/ICU care reviewed in detail note reviewed and edited care discussed with RN and RT ICU time spent >40 minutes Elfego Price MD Aug 05, 2020 08:28
--- NOTE | 2020-08-05 08:38 | NUR ---
NURSE NOTES: Dr. Price at the bedside and made aware of the patient abg results this morning. no changed to the current ventilator settings. no verbal orders given at this time.
[2020-08-05] MEDS: Levemir Flexpen SUBQ SCH ×2 (09:00→21:22)
--- NOTE | 2020-08-05 09:45 | NUR ---
NURSE NOTES: Blood sugar resulted at 177, half dose of Levemir given 13 units. patient remains with tube feeding being held, residuals are 5ml this morning.
[2020-08-05] MEDS: Solu-MEDROL 40mg Inj IVP SCH ×2 (09:49→20:47)
[2020-08-05] MEDS: Vitamin B Complex Tab NG SCH (09:49)
[2020-08-05] MEDS: Docusate 100mg/10ml Liq NG SCH ×2 (09:50→20:47)
[2020-08-05] MEDS: Ascorbic Acid 500mg tab NG SCH ×2 (09:50→20:47)
[2020-08-05] MEDS: Enoxaparin 40mg Inj SUBQ SCH ×2 (09:52→20:48)
[2020-08-05] MEDS: Midazolam HCl 50mg/10ml vial 100 MG in NS 180 ML IV PRN (09:53)
--- NOTE | 2020-08-05 11:15 | NUR ---
NURSE NOTES: residual noted to be at 5ml with clear fluid, Vital A.F. 1.2 running at 15ml/hr through left NG-tube. patient remains on versed at 10mg/hr at rate of 20ml/hr. remains on cooling blanket to maintain cooling. will continue to monitor residuals.
--- NOTE | 2020-08-05 11:25 | NUR ---
NURSE NOTES: Dr. miller updated at the bedside regarding patient temperature this morning, no orders given at this time.
--- NOTE | 2020-08-05 11:58 | Surgery Progress Note ---
Surgery Progress Note Subjective Procedure Performed right chest tube insertion Additional Comments ill appearing on support chest tube stable prognosis guarded Objective Last 24 Hour Vital Signs Date Time Temp Pulse Resp B/P (MAP) Pulse Ox O2 Delivery O2 Flow Rate FiO2 08/05/20 09:53 26 Mechanical Ventilator 100 08/05/20 08:00 Mechanical Ventilator 08/05/20 08:00 97.8 103 23 128/76 (93) 95 08/05/20 08:00 100 08/05/20 07:30 101 24 113/67 (82) 94 08/05/20 07:15 105 33 100 08/05/20 07:00 107 22 124/64 (84) 95 08/05/20 07:00 25 Mechanical Ventilator 100 08/05/20 06:30 116 24 135/82 (99) 95 08/05/20 06:00 99.8 122 26 133/76 (95) 96 08/05/20 06:00 24 Non-Rebreather 100 08/05/20 05:30 125 27 136/76 (96) 95 08/05/20 05:00 100.0 139 30 150/81 (104) 94 08/05/20 05:00 25 Mechanical Ventilator 100 08/05/20 04:30 139 29 147/81 (103) 94 08/05/20 04:00 100 08/05/20 04:00 Mechanical Ventilator 08/05/20 04:00 25 Mechanical Ventilator 100 08/05/20 04:00 101.5 138 29 145/82 (103) 94 08/05/20 04:00 135 08/05/20 03:30 137 29 147/83 (104) 93 08/05/20 03:00 22 Mechanical Ventilator 100 08/05/20 03:00 139 29 150/85 (106) 92 08/05/20 02:55 139 30 100 08/05/20 02:45 138 29 149/84 (105) 94 08/05/20 02:30 137 28 151/76 (101) 94 08/05/20 02:00 134 26 145/85 (105) 95 08/05/20 02:00 25 Mechanical Ventilator 100 08/05/20 01:45 136 28 152/84 (106) 95 08/05/20 01:30 134 28 149/85 (106) 95 08/05/20 01:15 138 29 145/92 (109) 95 08/05/20 01:00 135 28 145/83 (103) 96 08/05/20 01:00 28 Mechanical Ventilator 100 08/05/20 00:30 133 27 133/83 (100) 95 08/05/20 00:00 134 08/05/20 00:00 27 Mechanical Ventilator 100 08/05/20 00:00 Mechanical Ventilator 08/05/20 00:00 100 08/05/20 00:00 100.0 135 26 145/80 (101) 95 08/04/20 23:30 130 26 142/81 (101) 96 08/04/20 23:03 128 26 100 08/04/20 23:00 126 26 135/75 (95) 96 08/04/20 23:00 26 Mechanical Ventilator 100 08/04/20 22:43 26 Mechanical Ventilator 100 08/04/20 22:30 121 26 132/73 (92) 97 08/04/20 22:00 121 27 121/73 (89) 96 08/04/20 22:00 26 Mechanical Ventilator 100 08/04/20 21:30 114 28 128/73 (91) 96 08/04/20 21:00 28 Mechanical Ventilator 100 08/04/20 21:00 109 25 117/76 (90) 96 08/04/20 20:30 103 22 106/65 (79) 96 08/04/20 20:00 103 08/04/20 20:00 98.0 100 24 109/66 (80) 97 08/04/20 20:00 100 08/04/20 20:00 24 Mechanical Ventilator 100 08/04/20 20:00 Mechanical Ventilator 08/04/20 19:15 98 28 100 08/04/20 19:00 23 Mechanical Ventilator 100 08/04/20 19:00 105 24 104/64 (77) 94 08/04/20 18:30 98.2 110 24 117/62 (80) 93 08/04/20 18:19 100.2 08/04/20 18:00 25 Mechanical Ventilator 100 08/04/20 18:00 122 25 132/74 (93) 93 08/04/20 17:30 125 26 135/78 (97) 94 08/04/20 17:00 131 29 142/89 (106) 93 08/04/20 17:00 28 Mechanical Ventilator 100 08/04/20 16:30 133 29 149/89 (109) 93 08/04/20 16:30 132 28 149/89 (109) 93 08/04/20 16:00 Mechanical Ventilator 08/04/20 16:00 28 Mechanical Ventilator 100 08/04/20 16:00 132 08/04/20 16:00 132 28 151/86 (107) 93 08/04/20 16:00 100.8 129 27 151/86 (107) 93 08/04/20 16:00 100 08/04/20 16:00 129 08/04/20 15:34 129 28 100 08/04/20 15:30 129 27 142/87 (105) 91 08/04/20 15:30 129 27 142/87 (105) 93 08/04/20 15:00 133 28 144/83 (103) 93 08/04/20 15:00 27 Mechanical Ventilator 100 08/04/20 15:00 131 28 144/83 (103) 92 08/04/20 14:30 132 28 156/79 (104) 93 08/04/20 14:30 132 29 156/79 (104) 93 08/04/20 14:00 131 28 150/80 (103) 93 08/04/20 14:00 27 Mechanical Ventilator 100 08/04/20 14:00 127 27 150/80 (103) 93 08/04/20 13:30 131 28 150/78 (102) 93 08/04/20 13:00 27 Mechanical Ventilator 100 08/04/20 13:00 131 28 141/79 (99) 90 08/04/20 12:41 26 Mechanical Ventilator 100 08/04/20 12:30 128 28 144/84 (104) 92 08/04/20 12:00 99.9 122 28 144/83 (103) 93 08/04/20 12:00 100 08/04/20 12:00 Mechanical Ventilator 08/04/20 12:00 27 Mechanical Ventilator 100 I&O Intake and Output 08/04/20 08/05/20 19:00 07:00 Intake Total 665.60965 ml 986.677 ml Output Total 765 ml 620 ml Balance -99.97378 ml 366.677 ml Free Water 120 ml 80 ml IV Total 545.90092 ml 906.677 ml Output Urine Total 765 ml 600 ml Chest Tube Drainage Total 20 ml Dressing: saturated Cardiovascular: RSR Respiratory: decreased breath sounds Abdomen: soft, non-tender, present bowel sounds Extremities: no tenderness, no cyanosis Laboratory Tests Test 08/04/20 12:07 08/05/20 06:04 08/05/20 08:39 08/05/20 10:45 POC Whole Blood Glucose 218 MG/DL (74-106) H White Blood Count 13.7 K/UL (4.8-10.8) H Red Blood Count 3.77 M/UL (4.70-6.10) L Hemoglobin 11.8 G/DL (14.2-18.0) L Hematocrit 36.4 % (42.0-52.0) L Mean Corpuscular Volume 97 FL (80-99) Mean Corpuscular Hemoglobin 31.3 PG (27.0-31.0) H Mean Corpuscular Hemoglobin Concent 32.4 G/DL (32.0-36.0) Red Cell Distribution Width 13.8 % (11.6-14.8) Platelet Count 263 K/UL (150-450) Mean Platelet Volume 7.0 FL (6.5-10.1) Neutrophils (%) (Auto) % (45.0-75.0) Lymphocytes (%) (Auto) % (20.0-45.0) Monocytes (%) (Auto) % (1.0-10.0) Eosinophils (%) (Auto) % (0.0-3.0) Basophils (%) (Auto) % (0.0-2.0) Differential Total Cells Counted 100 Neutrophils % (Manual) 93 % (45-75) H Lymphocytes % (Manual) 5 % (20-45) L Monocytes % (Manual) 2 % (1-10) Eosinophils % (Manual) 0 % (0-3) Basophils % (Manual) 0 % (0-2) Band Neutrophils 0 % (0-8) Platelet Estimate Adequate Platelet Morphology Normal Anisocytosis 1+ Sodium Level 144 MMOL/L (136-145) Potassium Level 4.4 MMOL/L (3.5-5.1) Chloride Level 104 MMOL/L (98-107) Carbon Dioxide Level 40 MMOL/L (21-32) H Anion Gap 0 mmol/L (5-15) L Blood Urea Nitrogen 25 mg/dL (7-18) H Creatinine 0.6 MG/DL (0.55-1.30) Estimat Glomerular Filtration Rate > 60 mL/min (>60) Glucose Level 185 MG/DL (74-106) H Calcium Level 8.6 MG/DL (8.5-10.1) Total Bilirubin 0.6 MG/DL (0.2-1.0) Aspartate Amino Transf (AST/SGOT) 48 U/L (15-37) H Alanine Aminotransferase (ALT/SGPT) 30 U/L (12-78) Alkaline Phosphatase 77 U/L (46-116) Total Protein 5.8 G/DL (6.4-8.2) L Albumin 1.8 G/DL (3.4-5.0) L Globulin 4.0 g/dL Albumin/Globulin Ratio 0.4 (1.0-2.7) L Arterial Blood pH 7.380 (7.350-7.450) Arterial Blood Partial Pressure CO2 67.9 mmHg (35.0-45.0) *H Arterial Blood Partial Pressure O2 68.1 mmHg (75.0-100.0) L Arterial Blood HCO3 39.3 mmol/L (22.0-26.0) H Arterial Blood Oxygen Saturation 93.2 % (95-100) L Arterial Blood Base Excess 11.5 (-2-2) *H Jacob Test Positive Vancomycin Level Trough 14.2 ug/mL (5.0-12.0) H Plan Problems: (1) Pneumothorax Assessment & Plan: 30M covid on vent peep 16 fi02 100 right ptx s/p right chest tube ett complication replaced / chest tube vac replaced this AM as well given malfunction high risk low tv cxr noted ill appearing tube and lines checked will need to monitor closely unable to wean vent at this time cont current care plan (2) Respiratory failure (3) Coronavirus infection (4) Diabetes (5) Hypercapnia (6) Hypoxia (7) Asthma (8) HTN (hypertension) (9) Obesity (BMI 30-39.9) (10) Acute respiratory distress syndrome (ARDS) due to 2019-nCoV (11) Acute hypoxemic respiratory failure due to COVID-19 (12) Bradycardia (13) Laceration Mulugeta Butler Aug 05, 2020 11:58
--- NOTE | 2020-08-05 12:23 | Infectious Diseases Prog Note ---
Assessment/Plan Assessment/Plan antibiotics : vancomycin, ceftriaxone A 1. COVID-19 pneumonia on 100 % Fi O2 of oxygen with O2 saturation 92 %. s/p ivermectin x 2 2. History of asthma. 3. Elevated liver function tests improving 4. klebsiella pneumonia P 1. continue ceftriaxone, iv vancomycin 2. Continue solumedrol 3. Continue isolation. Subjective ROS Limited/Unobtainable: Yes Allergies: Coded Allergies: No Known Allergies (Unverified , 03/08/17) Objective Last 24 Hour Vital Signs Date Time Temp Pulse Resp B/P (MAP) Pulse Ox O2 Delivery O2 Flow Rate FiO2 08/05/20 09:53 26 Mechanical Ventilator 100 08/05/20 08:00 Mechanical Ventilator 08/05/20 08:00 97.8 103 23 128/76 (93) 95 08/05/20 08:00 100 08/05/20 07:30 101 24 113/67 (82) 94 08/05/20 07:15 105 33 100 08/05/20 07:00 107 22 124/64 (84) 95 08/05/20 07:00 25 Mechanical Ventilator 100 08/05/20 06:30 116 24 135/82 (99) 95 08/05/20 06:00 99.8 122 26 133/76 (95) 96 08/05/20 06:00 24 Non-Rebreather 100 08/05/20 05:30 125 27 136/76 (96) 95 08/05/20 05:00 100.0 139 30 150/81 (104) 94 08/05/20 05:00 25 Mechanical Ventilator 100 08/05/20 04:30 139 29 147/81 (103) 94 08/05/20 04:00 100 08/05/20 04:00 Mechanical Ventilator 08/05/20 04:00 25 Mechanical Ventilator 100 08/05/20 04:00 101.5 138 29 145/82 (103) 94 08/05/20 04:00 135 08/05/20 03:30 137 29 147/83 (104) 93 08/05/20 03:00 22 Mechanical Ventilator 100 08/05/20 03:00 139 29 150/85 (106) 92 08/05/20 02:55 139 30 100 08/05/20 02:45 138 29 149/84 (105) 94 08/05/20 02:30 137 28 151/76 (101) 94 08/05/20 02:00 134 26 145/85 (105) 95 08/05/20 02:00 25 Mechanical Ventilator 100 08/05/20 01:45 136 28 152/84 (106) 95 08/05/20 01:30 134 28 149/85 (106) 95 08/05/20 01:15 138 29 145/92 (109) 95 08/05/20 01:00 135 28 145/83 (103) 96 08/05/20 01:00 28 Mechanical Ventilator 100 08/05/20 00:30 133 27 133/83 (100) 95 08/05/20 00:00 134 08/05/20 00:00 27 Mechanical Ventilator 100 08/05/20 00:00 Mechanical Ventilator 08/05/20 00:00 100 08/05/20 00:00 100.0 135 26 145/80 (101) 95 08/04/20 23:30 130 26 142/81 (101) 96 08/04/20 23:03 128 26 100 08/04/20 23:00 126 26 135/75 (95) 96 08/04/20 23:00 26 Mechanical Ventilator 100 08/04/20 22:43 26 Mechanical Ventilator 100 08/04/20 22:30 121 26 132/73 (92) 97 08/04/20 22:00 121 27 121/73 (89) 96 08/04/20 22:00 26 Mechanical Ventilator 100 08/04/20 21:30 114 28 128/73 (91) 96 08/04/20 21:00 28 Mechanical Ventilator 100 08/04/20 21:00 109 25 117/76 (90) 96 08/04/20 20:30 103 22 106/65 (79) 96 08/04/20 20:00 103 08/04/20 20:00 98.0 100 24 109/66 (80) 97 08/04/20 20:00 100 08/04/20 20:00 24 Mechanical Ventilator 100 08/04/20 20:00 Mechanical Ventilator 08/04/20 19:15 98 28 100 08/04/20 19:00 23 Mechanical Ventilator 100 08/04/20 19:00 105 24 104/64 (77) 94 08/04/20 18:30 98.2 110 24 117/62 (80) 93 08/04/20 18:19 100.2 08/04/20 18:00 25 Mechanical Ventilator 100 08/04/20 18:00 122 25 132/74 (93) 93 08/04/20 17:30 125 26 135/78 (97) 94 08/04/20 17:00 131 29 142/89 (106) 93 08/04/20 17:00 28 Mechanical Ventilator 100 08/04/20 16:30 133 29 149/89 (109) 93 08/04/20 16:30 132 28 149/89 (109) 93 08/04/20 16:00 Mechanical Ventilator 08/04/20 16:00 28 Mechanical Ventilator 100 08/04/20 16:00 132 08/04/20 16:00 132 28 151/86 (107) 93 08/04/20 16:00 100.8 129 27 151/86 (107) 93 08/04/20 16:00 100 08/04/20 16:00 129 08/04/20 15:34 129 28 100 08/04/20 15:30 129 27 142/87 (105) 91 08/04/20 15:30 129 27 142/87 (105) 93 08/04/20 15:00 133 28 144/83 (103) 93 08/04/20 15:00 27 Mechanical Ventilator 100 08/04/20 15:00 131 28 144/83 (103) 92 08/04/20 14:30 132 28 156/79 (104) 93 08/04/20 14:30 132 29 156/79 (104) 93 08/04/20 14:00 131 28 150/80 (103) 93 08/04/20 14:00 27 Mechanical Ventilator 100 08/04/20 14:00 127 27 150/80 (103) 93 08/04/20 13:30 131 28 150/78 (102) 93 08/04/20 13:00 27 Mechanical Ventilator 100 08/04/20 13:00 131 28 141/79 (99) 90 08/04/20 12:41 26 Mechanical Ventilator 100 08/04/20 12:30 128 28 144/84 (104) 92 Height (Feet): 5 Height (Inches): 6.00 Weight (Pounds): 209 HEENT: other - intubated Laboratory Tests Test 08/05/20 06:04 08/05/20 08:39 08/05/20 10:45 White Blood Count 13.7 K/UL (4.8-10.8) H Red Blood Count 3.77 M/UL (4.70-6.10) L Hemoglobin 11.8 G/DL (14.2-18.0) L Hematocrit 36.4 % (42.0-52.0) L Mean Corpuscular Volume 97 FL (80-99) Mean Corpuscular Hemoglobin 31.3 PG (27.0-31.0) H Mean Corpuscular Hemoglobin Concent 32.4 G/DL (32.0-36.0) Red Cell Distribution Width 13.8 % (11.6-14.8) Platelet Count 263 K/UL (150-450) Mean Platelet Volume 7.0 FL (6.5-10.1) Neutrophils (%) (Auto) % (45.0-75.0) Lymphocytes (%) (Auto) % (20.0-45.0) Monocytes (%) (Auto) % (1.0-10.0) Eosinophils (%) (Auto) % (0.0-3.0) Basophils (%) (Auto) % (0.0-2.0) Differential Total Cells Counted 100 Neutrophils % (Manual) 93 % (45-75) H Lymphocytes % (Manual) 5 % (20-45) L Monocytes % (Manual) 2 % (1-10) Eosinophils % (Manual) 0 % (0-3) Basophils % (Manual) 0 % (0-2) Band Neutrophils 0 % (0-8) Platelet Estimate Adequate Platelet Morphology Normal Anisocytosis 1+ Sodium Level 144 MMOL/L (136-145) Potassium Level 4.4 MMOL/L (3.5-5.1) Chloride Level 104 MMOL/L (98-107) Carbon Dioxide Level 40 MMOL/L (21-32) H Anion Gap 0 mmol/L (5-15) L Blood Urea Nitrogen 25 mg/dL (7-18) H Creatinine 0.6 MG/DL (0.55-1.30) Estimat Glomerular Filtration Rate > 60 mL/min (>60) Glucose Level 185 MG/DL (74-106) H Calcium Level 8.6 MG/DL (8.5-10.1) Total Bilirubin 0.6 MG/DL (0.2-1.0) Aspartate Amino Transf (AST/SGOT) 48 U/L (15-37) H Alanine Aminotransferase (ALT/SGPT) 30 U/L (12-78) Alkaline Phosphatase 77 U/L (46-116) Total Protein 5.8 G/DL (6.4-8.2) L Albumin 1.8 G/DL (3.4-5.0) L Globulin 4.0 g/dL Albumin/Globulin Ratio 0.4 (1.0-2.7) L Arterial Blood pH 7.380 (7.350-7.450) Arterial Blood Partial Pressure CO2 67.9 mmHg (35.0-45.0) *H Arterial Blood Partial Pressure O2 68.1 mmHg (75.0-100.0) L Arterial Blood HCO3 39.3 mmol/L (22.0-26.0) H Arterial Blood Oxygen Saturation 93.2 % (95-100) L Arterial Blood Base Excess 11.5 (-2-2) *H Jacob Test Positive Vancomycin Level Trough 14.2 ug/mL (5.0-12.0) H Current Medications Medications (Trade) Dose Ordered Sig/Milagro Route PRN Reason Start Time Stop Time Status Last Admin Dose Admin Acetaminophen (Tylenol) 650 mg Q4H PRN RECTAL Mild Pain (Pain Scale 1-3) 07/24/20 18:15 08/23/20 18:14 07/25/20 11:49 Acetaminophen (Tylenol) 650 mg Q6H PRN NG Temp >100.5 07/26/20 08:30 08/25/20 08:29 08/03/20 09:36 Acetaminophen (Tylenol) 650 mg Q6H PRN NG Mild Pain (Pain Scale 1-3) 07/26/20 08:30 08/25/20 08:29 08/04/20 17:26 Albuterol/ Ipratropium (Combivent Respimat) 2 puff Q2H PRN INH Shortness of Breath 07/09/20 21:45 08/08/20 21:44 07/19/20 09:17 Ascorbic Acid (Vitamin C) 500 mg EVERY 12 HOURS NG 07/26/20 21:00 08/10/20 08:59 08/05/20 09:50 Ceftriaxone Sodium 1 gm/ Dextrose 55 ml @ 110 mls/hr Q24H IVPB 08/01/20 18:00 08/08/20 17:59 1/7/21 17:26 Chlorhexidine Gluconate (Marycarmen-Hex 2%) 1 applic DAILY@2000 TOPIC 07/20/20 20:00 10/18/20 19:59 08/04/20 20:28 Dextrose (Dextrose 50%) 25 ml Q30M PRN IV Hypoglycemia 07/23/20 13:15 10/21/20 13:14 Dextrose (Dextrose 50%) 50 ml Q30M PRN IV Hypoglycemia 07/23/20 13:15 10/21/20 13:14 Dextrose/Sodium Chloride 1,000 ml @ 60 mls/hr [id number] PRN IV WHILE PRONING ONLY 07/24/20 17:45 08/23/20 17:44 07/24/20 18:01 Docusate Sodium (Colace) 100 mg EVERY 12 HOURS NG 07/27/20 21:00 08/26/20 20:59 08/05/20 09:50 Enoxaparin Sodium (Lovenox) 40 mg Q12HR SUBQ 08/01/20 21:00 10/30/20 20:59 08/05/20 09:52 Famotidine (Pepcid I.v.) 20 mg Q12HR IVP 08/04/20 21:00 09/03/20 20:59 08/05/20 09:50 Insulin Aspart (NovoLOG) EVERY 6 HOURS SUBQ 07/28/20 00:00 10/21/20 15:59 08/05/20 06:05 Insulin Detemir (Levemir) 26 units EVERY 12 HOURS SUBQ 07/26/20 09:00 10/20/20 08:59 08/05/20 09:00 Methylprednisolone Sodium Succinate (Solu-MEDROL) 40 mg EVERY 12 HOURS IVP 07/25/20 12:30 10/23/20 12:29 08/05/20 09:49 Midazolam HCl 100 mg/Sodium Chloride 200 ml @ 0 mls/hr Q24H PRN IV Agitation 08/03/20 16:30 08/05/20 20:29 08/05/20 09:53 Midazolam HCl 100 mg/Sodium Chloride 200 ml @ 0 mls/hr Q24H PRN IV Agitation 08/05/20 20:30 08/07/20 20:29 Ondansetron HCl (Zofran) 4 mg Q6H PRN IVP Nausea & Vomiting 07/09/20 21:45 08/08/20 21:44 Promethazine HCl/ Codeine (Phenergan with Codeine) 5 ml Q4H PRN ORAL For Cough 07/11/20 15:15 08/10/20 15:14 07/26/20 18:26 Vancomycin HCl 250 ml @ 166.667 mls/hr Q8H IVPB 08/03/20 20:00 08/08/20 19:59 08/05/20 04:19 Vancomycin HCl (Vanco pharmacy to dose) 1 ea DAILY PRN MISC Per rx protocol 07/26/20 09:00 08/25/20 08:59 Vitamin B Complex (Vitamin B Complex) 1 tab DAILY NG 07/24/20 09:00 10/09/20 08:59 08/05/20 09:49 Vitamin D (Vitamin D) 1,000 unit BEDTIME GT 07/27/20 21:00 08/13/20 09:29 08/04/20 21:27 Jose Alberto MD Aug 05, 2020 12:23
--- NOTE | 2020-08-05 13:10 | NUR ---
NURSE NOTES: Tube feeding remains running at 15ml/hr, residuals are 5ml, will continue tube feeding at same rate. chest tube drainage is noted to 16 ml since 0700 with serosanguineous pinkish fluid on the chest tube, chest tube is reinforced with dressing dry an intact, no bleeding is noted on the dressing, Blood sugar resulted at 233, patient remains on versed at 10mg/hr at rate of 20ml/hr.
--- NOTE | 2020-08-05 13:36 | Diagnostic Imaging Report ---
Indication: Shortness of breath Technique: One view of the chest Comparison: 08/04/2020 Findings: Stable satisfactory tube and line positions. No gross pneumothorax. There is slightly increased right supraclavicular and right chest wall subcutaneous emphysema, so minimal. Normal heart size. Impression: Slightly increased subcutaneous emphysema. 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
[2020-08-05] MEDS ORDERED: Rocuronium Bromide 50mg/5ml Inj IV ONE (14:55)
[2020-08-05] MEDS ORDERED: Etomidate 40mg/20ml Inj IV ONE (14:55)
[2020-08-05] MEDS ORDERED: Succinylcholine 20mg/ml 10ml vial ONE ×2 (14:55)
--- NOTE | 2020-08-05 14:57 | NUR ---
NURSE HAND-OFF REPORT: Latest Vital Signs: Temperature 98.1 , Pulse 126 , B/P 135 /80 , Respiratory Rate 27 , O2 SAT 94 , Mechanical Ventilator, O2 Flow Rate . Vital Sign Comment: EKG Rhythm: Sinus Tachycardia Rhythm change?: N MD Notified?: Ildefonso Diana at bedside for re-intubation MD Response: Latest Bradley Fall Score: 50 Fall Risk: High Risk Safety Measures: Call light Within Reach, Bed Alarm Zone 1, Side Rails Side Rails x3, Bed position Low and Locked. Fall Precautions: Yellow Socks Yellow Gown Door Sign Patient Fall Education Report given to ELIER Mayo.
--- NOTE | 2020-08-05 15:00 | NUR ---
NURSE NOTES: Pt received from ELIER Woods. Pt is sedated, opens eyes when called by name for approx 5 sec, RASS noted -2, bilat pupils equal and round 3mm with sluggish rxn to light; pt is unable to follow simple commands at this time; withdraws to light pain stimuli; gag reflex hypoactive. Pt is ST to cardiac rehabilitation specialist with 2+ radial and dorsalis pedis pulses. 1+ pitting edema noted to hands. cap refill less than 3 sec. Pt is orally intubated with a 7.5 ETT noted 25 cm at the lip with the following settings: AC 26 TV 500 FiO2 100 % Peep 16. lung ortiz noted diminished upon auscultation. Pt has a pleur-evac chest tube draining serosanguineous fluid from right lateral chest area (dressing is dry and intact) - chest tube is connected to low, intermittent wall suction at 20 cm H20 - water seal chamber fluid level noted at 2 cm of H20 - no air leak present. left naris NGT is running vital AF 1.2 at 15 cc/hr without gastric residuals noted. Abdomen is round and soft w/ active bowel sounds to all quadrants. F/C noted draining yellow urine. Skin is intact. Pt has a DANIEL PICC with dry and intact dressing running versed gtt at 10 mg/hr. LFA 20g IV noted saline-locked. Bed in lowest position, alarm on, side rails up x 2, call light within reach. Will continue to monitor.
--- NOTE | 2020-08-05 16:00 | NUR ---
NURSE NOTES: Pt repositioned and cleaned. PO care provided. Oral temp 99.6 F with cooling blanket on. Sputum sample sent down to lab for processing. No distress noted.
[2020-08-05] MEDS: cefTRIAXone 1 GM in D5W 55 ML IVPB SCH (17:29)
--- NOTE | 2020-08-05 18:00 | NUR ---
NURSE NOTES: Pt repositioned. No distress noted.
--- NOTE | 2020-08-05 18:30 | Cardiology Progress Note ---
Subjective DATE OF SERVICE: Aug 05, 2020 Condition remains critical and prognosis guarded Increasingly hypoxic; worsening sinus tachycardia. S/P chest tube for PTX He remains on full vent support, on 100% FIO2 - orally intubated. CXR (08/04) unchanged bilateral infiltrates with increasing subcut emphysema Objective Last 24 Hour Vital Signs Date Time Temp Pulse Resp B/P (MAP) Pulse Ox O2 Delivery O2 Flow Rate FiO2 08/05/20 18:00 27 Mechanical Ventilator 100 08/05/20 18:00 117 27 126/84 (98) 95 08/05/20 17:00 125 27 134/74 (94) 94 08/05/20 17:00 27 Mechanical Ventilator 100 08/05/20 16:00 99.6 124 26 143/76 (98) 93 08/05/20 16:00 100 08/05/20 16:00 26 Mechanical Ventilator 100 08/05/20 16:00 Mechanical Ventilator 08/05/20 16:00 122 08/05/20 15:00 123 26 100 08/05/20 15:00 122 21 133/75 (94) 94 08/05/20 15:00 21 Mechanical Ventilator 100 08/05/20 14:00 126 26 135/80 (98) 94 08/05/20 14:00 27 Mechanical Ventilator 100 08/05/20 14:00 26 Mechanical Ventilator 100 08/05/20 13:30 125 25 138/79 (98) 95 08/05/20 13:00 127 27 156/85 (108) 94 08/05/20 13:00 27 Mechanical Ventilator 100 08/05/20 12:30 126 28 154/82 (106) 94 08/05/20 12:00 100 08/05/20 12:00 98.1 119 26 148/80 (102) 94 08/05/20 12:00 120 08/05/20 12:00 26 Mechanical Ventilator 100 08/05/20 12:00 Mechanical Ventilator 08/05/20 11:30 120 24 141/79 (99) 94 08/05/20 11:12 123 26 100 08/05/20 11:00 113 5 134/76 (95) 94 08/05/20 11:00 27 Mechanical Ventilator 100 08/05/20 10:30 113 15 131/84 (100) 95 08/05/20 10:00 26 Mechanical Ventilator 100 08/05/20 10:00 117 24 136/82 (100) 93 08/05/20 09:53 26 Mechanical Ventilator 100 08/05/20 09:30 114 15 131/80 (97) 93 08/05/20 09:00 107 26 132/76 (94) 95 08/05/20 08:30 107 23 116/69 (85) 95 08/05/20 08:00 Mechanical Ventilator 08/05/20 08:00 97.8 103 23 128/76 (93) 95 08/05/20 08:00 107 08/05/20 08:00 100 08/05/20 07:30 101 24 113/67 (82) 94 08/05/20 07:15 105 33 100 08/05/20 07:00 107 22 124/64 (84) 95 08/05/20 07:00 25 Mechanical Ventilator 100 08/05/20 06:30 116 24 135/82 (99) 95 08/05/20 06:00 99.8 122 26 133/76 (95) 96 08/05/20 06:00 24 Non-Rebreather 100 08/05/20 05:30 125 27 136/76 (96) 95 08/05/20 05:00 100.0 139 30 150/81 (104) 94 08/05/20 05:00 25 Mechanical Ventilator 100 08/05/20 04:30 139 29 147/81 (103) 94 08/05/20 04:00 100 08/05/20 04:00 Mechanical Ventilator 08/05/20 04:00 25 Mechanical Ventilator 100 08/05/20 04:00 101.5 138 29 145/82 (103) 94 08/05/20 04:00 135 08/05/20 03:30 137 29 147/83 (104) 93 08/05/20 03:00 22 Mechanical Ventilator 100 08/05/20 03:00 139 29 150/85 (106) 92 08/05/20 02:55 139 30 100 08/05/20 02:45 138 29 149/84 (105) 94 08/05/20 02:30 137 28 151/76 (101) 94 08/05/20 02:00 134 26 145/85 (105) 95 08/05/20 02:00 25 Mechanical Ventilator 100 08/05/20 01:45 136 28 152/84 (106) 95 08/05/20 01:30 134 28 149/85 (106) 95 08/05/20 01:15 138 29 145/92 (109) 95 08/05/20 01:00 135 28 145/83 (103) 96 08/05/20 01:00 28 Mechanical Ventilator 100 08/05/20 00:30 133 27 133/83 (100) 95 08/05/20 00:00 134 08/05/20 00:00 27 Mechanical Ventilator 100 08/05/20 00:00 Mechanical Ventilator 08/05/20 00:00 100 08/05/20 00:00 100.0 135 26 145/80 (101) 95 08/04/20 23:30 130 26 142/81 (101) 96 08/04/20 23:03 128 26 100 08/04/20 23:00 126 26 135/75 (95) 96 08/04/20 23:00 26 Mechanical Ventilator 100 08/04/20 22:43 26 Mechanical Ventilator 100 08/04/20 22:30 121 26 132/73 (92) 97 08/04/20 22:00 121 27 121/73 (89) 96 08/04/20 22:00 26 Mechanical Ventilator 100 08/04/20 21:30 114 28 128/73 (91) 96 08/04/20 21:00 28 Mechanical Ventilator 100 08/04/20 21:00 109 25 117/76 (90) 96 08/04/20 20:30 103 22 106/65 (79) 96 08/04/20 20:00 103 08/04/20 20:00 98.0 100 24 109/66 (80) 97 08/04/20 20:00 100 08/04/20 20:00 24 Mechanical Ventilator 100 08/04/20 20:00 Mechanical Ventilator 08/04/20 19:15 98 28 100 08/04/20 19:00 23 Mechanical Ventilator 100 08/04/20 19:00 105 24 104/64 (77) 94 08/04/20 18:30 98.2 110 24 117/62 (80) 93 HEENT: Orally intubated, Mechanically Ventilated, Thin secretions ET Tube RHYTHM: SB LUNGS: bilateral rhonchi CARDIAC: regular rhythm, normal S1 and S2, bradycardia ABDOMEN: normal bowel sounds, non tender, soft EXTREMITIES: normal range of motion, non-tender Laboratory Tests Test 08/05/20 06:04 08/05/20 08:39 1/8/21 10:45 White Blood Count 13.7 K/UL (4.8-10.8) H Red Blood Count 3.77 M/UL (4.70-6.10) L Hemoglobin 11.8 G/DL (14.2-18.0) L Hematocrit 36.4 % (42.0-52.0) L Mean Corpuscular Volume 97 FL (80-99) Mean Corpuscular Hemoglobin 31.3 PG (27.0-31.0) H Mean Corpuscular Hemoglobin Concent 32.4 G/DL (32.0-36.0) Red Cell Distribution Width 13.8 % (11.6-14.8) Platelet Count 263 K/UL (150-450) Mean Platelet Volume 7.0 FL (6.5-10.1) Neutrophils (%) (Auto) % (45.0-75.0) Lymphocytes (%) (Auto) % (20.0-45.0) Monocytes (%) (Auto) % (1.0-10.0) Eosinophils (%) (Auto) % (0.0-3.0) Basophils (%) (Auto) % (0.0-2.0) Differential Total Cells Counted 100 Neutrophils % (Manual) 93 % (45-75) H Lymphocytes % (Manual) 5 % (20-45) L Monocytes % (Manual) 2 % (1-10) Eosinophils % (Manual) 0 % (0-3) Basophils % (Manual) 0 % (0-2) Band Neutrophils 0 % (0-8) Platelet Estimate Adequate Platelet Morphology Normal Anisocytosis 1+ Sodium Level 144 MMOL/L (136-145) Potassium Level 4.4 MMOL/L (3.5-5.1) Chloride Level 104 MMOL/L (98-107) Carbon Dioxide Level 40 MMOL/L (21-32) H Anion Gap 0 mmol/L (5-15) L Blood Urea Nitrogen 25 mg/dL (7-18) H Creatinine 0.6 MG/DL (0.55-1.30) Estimat Glomerular Filtration Rate > 60 mL/min (>60) Glucose Level 185 MG/DL (74-106) H Calcium Level 8.6 MG/DL (8.5-10.1) Total Bilirubin 0.6 MG/DL (0.2-1.0) Aspartate Amino Transf (AST/SGOT) 48 U/L (15-37) H Alanine Aminotransferase (ALT/SGPT) 30 U/L (12-78) Alkaline Phosphatase 77 U/L (46-116) Total Protein 5.8 G/DL (6.4-8.2) L Albumin 1.8 G/DL (3.4-5.0) L Globulin 4.0 g/dL Albumin/Globulin Ratio 0.4 (1.0-2.7) L Arterial Blood pH 7.380 (7.350-7.450) Arterial Blood Partial Pressure CO2 67.9 mmHg (35.0-45.0) *H Arterial Blood Partial Pressure O2 68.1 mmHg (75.0-100.0) L Arterial Blood HCO3 39.3 mmol/L (22.0-26.0) H Arterial Blood Oxygen Saturation 93.2 % (95-100) L Arterial Blood Base Excess 11.5 (-2-2) *H Jacob Test Positive Vancomycin Level Trough 14.2 ug/mL (5.0-12.0) H Assessment/Plan Assessment/Plan Covid 19 PNA s/p PTX Secondary sinus tachycardia K.pneumonia PNA Acute respiratory failure with severe Hypoxia Sinus bradycardia resolved Diabetes mellitus with hyperglycemia due to steroids Transaminitis Mod protein/calorie malnutrition CRITICAL & GUARDED Chest tube management Abx per ID Continuous cardiac monitoring Anticoagulation and steroid rx Titrate oxygen as able; prone. Vent settings adjusted by pulmonary Anti-viral rx Protein suppl Insulin cov'g by SS; levemir dose advanced further. Chuck Swain MD Aug 05, 2020 18:30
[2020-08-05] MEDS: Versed 50mg/NS 100ml 100 ML IV PRN (19:20)
--- NOTE | 2020-08-05 19:22 | NUR ---
NURSE HAND-OFF REPORT: Latest Vital Signs: Temperature 99.6 , Pulse 113 , B/P 133 /79 , Respiratory Rate 28 , O2 SAT 95 , Mechanical Ventilator, FiO2 100 % . EKG Rhythm: Sinus Tachycardia Rhythm change?: N Notified?: Ildefonso Diana at bedside for re-intubation Response: Latest Bradley Fall Score: 50 Fall Risk: High Risk Safety Measures: Call light Within Reach, Bed Alarm Zone 1, Side Rails Side Rails x3, Bed position Low and Locked. Fall Precautions: Yellow Socks Yellow Gown Door Sign Patient Fall Education Report given to ELIER Trujillo. Addendum: 08/05/20 at 1923 by Mari aEsther Hudson RN Amendment: NURSE HAND-OFF REPORT: Latest Vital Signs: Temperature 99.6 , Pulse 113 , B/P 133 /79 , Respiratory Rate 28 , O2 SAT 95 , Mechanical Ventilator, FiO2 100 % . EKG Rhythm: Sinus Tachycardia Rhythm change?: N Notified?: n/a Response: n/a Latest Bradley Fall Score: 50 Fall Risk: High Risk Safety Measures: Call light Within Reach, Bed Alarm Zone 1, Side Rails Side Rails x3, Bed position Low and Locked. Fall Precautions: Yellow Socks Yellow Gown Door Sign Patient Fall Education Report given to ELIER Trujillo.
--- NOTE | 2020-08-05 19:30 | NUR ---
NURSE NOTES: Received pt orally intubated on ac mode, sedated with Versed drip at 10mg/hr for RASS SCORE -2, 02 sat 94%, St low 100s on the monitor. bp stable afebrile, pts lips and gum area bleeds easily during oral care, genle oral care done. Biswas to gravity with moderate amt of yen yellow urine, Tolerating fdg at 15ml vital AF at this time,residuals 10-20ml. hOB kept elevated, on aspiration precaution. RT ant chest wall chest tube to intermittent suction with sero sanguinous drainage. approx 20ml., check patency of chest tube and well secured with tape, monitor amt and drainage. Will continue to monitor.
[2020-08-05] MEDS ORDERED: Versed 50mg/NS 100ml 100 ML IV PRN (20:00)
[2020-08-05] MEDS ORDERED: Midazolam HCl 50mg/10ml vial 100 MG in NS 180 ML IV PRN (20:30)
[2020-08-05] MEDS: Dyna-Hex 2% Top Sol 2oz TOPIC SCH (20:33)
[2020-08-05] MEDS: Vitamin D 1000 units Tab GT SCH (20:47)
[2020-08-06] VITALS (44 sets, daily range): BP systolic 111–172; BP diastolic 28–98
--- NOTE | 2020-08-06 | NUR ---
NURSE NOTES: Febrile 101, cooling measures started.
--- NOTE | 2020-08-06 02:00 | NUR ---
NURSE NOTES: Temp 98F, needs frequent suctioning orally.
[2020-08-06] MEDS: Versed 50mg/NS 100ml 100 ML IV PRN ×4 (02:49→23:59)
[2020-08-06] MEDS: Vancomycin 1.25gm Premix IVPB SCH ×3 (03:56→20:17)
--- NOTE | 2020-08-06 04:00 | NUR ---
NURSE NOTES: Complete bed bath with bed changed done,
[2020-08-06] MEDS: NovoLOG Insulin Flexpen SUBQ SCH ×3 (06:41→18:00)
--- NOTE | 2020-08-06 07:35 | NUR ---
NURSE NOTES: Received patient from ELIER Trujillo. Patient is observed bedside at this time and appears to be in slight distress. Patient is tachypneic and tachycardic on the quality assurance monitor body. Patient does not whence in pain however is agonally breathing. Patient has copious secretions that are pink to serous coming from his lips and gums/ETT. Also notable are scleral edema. Patient is intermittently alert and minimally tracks with his eyes however does not follow any commands. Patient is being monitored on the quality assurance monitor body with VS HR 109 BP 120/70 RR 22 and SPO2 96%. Patient is orally intubated with ETT 7.5 with AC 26 TV 500 FIO2 100% Peep +16. Oral care was performed. Patient is with chest tube. Patient is currently febrile 100.1 on a cooling blanket will set to auto to ensure that patient's fever improves. Patient has a Biswas catheter that is draining to gravity with light yen urine. Patient is with OGT running Vital AF 1.2 at 20 ml/hr. Pt is sedated with Versed drip at 10mg/hr for RASS SCORE -2 via his DANIEL PICC. Safety measures are in place with bed in the lowest position, locked, HOB kept elevated, call light within reach. RT anterior chest wall chest tube to intermittent suction with sero sanguinous drainage, secured with tape, monitor amount and drainage. Will continue to monitor and carry out plan.
--- NOTE | 2020-08-06 07:39 | NUR ---
NURSE HAND-OFF REPORT: Latest Vital Signs: Temperature 98.0 , Pulse 108 , B/P 120 /70 , Respiratory Rate 29 , O2 SAT 96 , Mechanical Ventilator, O2 Flow Rate . Vital Sign Comment: EKG Rhythm: Sinus Tachycardia Rhythm change?: N MD Notified?: Ildefonso Diana at bedside for re-intubation MD Response: Latest Bradley Fall Score: 50 Fall Risk: High Risk Safety Measures: Call light Within Reach, Bed Alarm Zone 1, Side Rails Side Rails x3, Bed position Low and Locked. Fall Precautions: Yellow Socks Yellow Gown Door Sign Patient Fall Education Report given to .
[2020-08-06 07:56] LABS: HEMATOCRIT 35.7 % (42.0-52.0); HEMOGLOBIN 11.3 G/DL (14.2-18.0); MEAN CORPUSCULAR VOLUME 98 FL (80-99); PLATELET COUNT 280 K/UL (150-450); RED BLOOD COUNT 3.66 M/UL (4.70-6.10); RED CELL DISTRIBUTION WIDTH 14.9 % (11.6-14.8); WHITE BLOOD COUNT 15.6 K/UL (4.8-10.8)
[2020-08-06 08:09] LABS: ALANINE AMINOTRANSFERASE 32 U/L (12-78); ALBUMIN 1.7 G/DL (3.4-5.0); ALBUMIN/GLOBULIN RATIO 0.4 (1.0-2.7); ALKALINE PHOSPHATASE 77 U/L (46-116); ANION GAP -2 mmol/L (5-15); ASPARTATE AMINO TRANSFERASE 42 U/L (15-37); BILIRUBIN,TOTAL 0.5 MG/DL (0.2-1.0); BLOOD UREA NITROGEN 24 mg/dL (7-18); CALCIUM 8.5 MG/DL (8.5-10.1); CHLORIDE 105 MMOL/L (98-107); CREATININE 0.5 MG/DL (0.55-1.30); POTASSIUM 4.3 MMOL/L (3.5-5.1); SODIUM 145 MMOL/L (136-145)
[2020-08-06 08:30] LABS: CARBON DIOXIDE 41 MMOL/L (21-32)
[2020-08-06] MEDS: Docusate 100mg/10ml Liq NG SCH ×2 (09:14→20:17)
[2020-08-06] MEDS: Vitamin B Complex Tab NG SCH (09:14)
[2020-08-06] MEDS: Ascorbic Acid 500mg tab NG SCH ×2 (09:15→20:18)
[2020-08-06] MEDS: Solu-MEDROL 40mg Inj IVP SCH ×2 (09:15→20:17)
[2020-08-06] MEDS: Enoxaparin 40mg Inj SUBQ SCH (09:16)
[2020-08-06] MEDS: Levemir Flexpen SUBQ SCH ×2 (09:18→21:37)
--- NOTE | 2020-08-06 09:59 | General Progress Note ---
Subjective ROS Limited/Unobtainable: Yes Constitutional: Reports: malaise, weakness Cardiovascular: Reports: no symptoms Respiratory: Reports: shortness of breath Gastrointestinal/Abdominal: Reports: no symptoms Genitourinary: Reports: no symptoms Neurologic/Psychiatric: Reports: no symptoms Endocrine: Reports: no symptoms Hematologic/Lymphatic: Reports: no symptoms Allergies: Coded Allergies: No Known Allergies (Unverified , 03/08/17) All Systems: reviewed and negative except above Subjective bleeding from the mouth. still on 100% fio2. sedated. tachycardic. no improvement. Objective Last 24 Hour Vital Signs Date Time Temp Pulse Resp B/P (MAP) Pulse Ox O2 Delivery O2 Flow Rate FiO2 08/06/20 07:27 108 29 100 08/06/20 07:00 104 22 120/70 (87) 96 08/06/20 07:00 26 Mechanical Ventilator 100 08/06/20 06:30 102 22 113/66 (82) 95 08/06/20 06:00 100 21 117/59 (78) 97 08/06/20 06:00 24 Mechanical Ventilator 100 08/06/20 05:45 103 22 111/67 (82) 97 08/06/20 05:30 100 19 118/69 (85) 98 08/06/20 05:00 24 Mechanical Ventilator 100 08/06/20 05:00 98 22 118/69 (85) 95 08/06/20 04:30 109 22 119/65 (83) 95 08/06/20 04:00 98.0 118 26 136/81 (99) 95 08/06/20 04:00 Mechanical Ventilator 08/06/20 04:00 117 08/06/20 04:00 23 Mechanical Ventilator 100 08/06/20 04:00 100 08/06/20 03:31 118 28 100 08/06/20 03:30 122 25 137/79 (98) 92 08/06/20 03:00 25 Mechanical Ventilator 100 08/06/20 03:00 126 26 144/79 (100) 90 08/06/20 02:49 26 Mechanical Ventilator 100 08/06/20 02:30 132 29 153/84 (107) 89 08/06/20 02:00 27 Mechanical Ventilator 100 08/06/20 02:00 122 26 140/80 (100) 63 08/06/20 01:45 132 26 125/79 (94) 88 08/06/20 01:30 130 25 136/81 (99) 97 08/06/20 01:00 129 26 138/79 (98) 95 08/06/20 01:00 27 Mechanical Ventilator 100 08/06/20 00:30 100.0 131 29 151/85 (107) 94 08/06/20 00:15 129 28 143/87 (105) 93 08/06/20 00:00 100 08/06/20 00:00 Mechanical Ventilator 08/06/20 00:00 125 27 153/85 (107) 93 08/06/20 00:00 24 Mechanical Ventilator 100 08/06/20 00:00 129 08/05/20 23:30 126 30 157/85 (109) 93 08/05/20 23:17 126 28 100 08/05/20 23:00 28 Mechanical Ventilator 100 08/05/20 23:00 101.0 121 27 146/85 (105) 94 08/05/20 22:30 118 26 140/83 (102) 97 08/05/20 22:00 110 25 137/80 (99) 98 08/05/20 22:00 26 Mechanical Ventilator 100 08/05/20 21:30 106 25 127/78 (94) 96 08/05/20 21:15 100 21 135/80 (98) 97 08/05/20 21:00 25 Mechanical Ventilator 100 08/05/20 21:00 104 23 129/81 (97) 99 08/05/20 20:30 102 22 129/73 (91) 08/05/20 20:00 98.0 120/63 (82) 08/05/20 20:00 105 22 125/77 (93) 98 08/05/20 20:00 100 08/05/20 20:00 22 Mechanical Ventilator 100 08/05/20 20:00 Mechanical Ventilator 08/05/20 20:00 103 08/05/20 19:46 108 29 100 08/05/20 19:45 112 24 126/78 (94) 97 08/05/20 19:30 112 24 144/81 (102) 96 08/05/20 19:20 28 Mechanical Ventilator 100 08/05/20 19:00 25 Mechanical Ventilator 100 08/05/20 19:00 113 25 133/79 (97) 95 08/05/20 18:00 27 Mechanical Ventilator 100 08/05/20 18:00 117 27 126/84 (98) 95 08/05/20 17:00 125 27 134/74 (94) 94 08/05/20 17:00 27 Mechanical Ventilator 100 08/05/20 16:00 99.6 124 26 143/76 (98) 93 08/05/20 16:00 100 08/05/20 16:00 26 Mechanical Ventilator 100 08/05/20 16:00 Mechanical Ventilator 08/05/20 16:00 122 08/05/20 15:00 123 26 100 08/05/20 15:00 122 21 133/75 (94) 94 08/05/20 15:00 21 Mechanical Ventilator 100 08/05/20 14:00 126 26 135/80 (98) 94 08/05/20 14:00 27 Mechanical Ventilator 100 08/05/20 14:00 26 Mechanical Ventilator 100 08/05/20 13:30 125 25 138/79 (98) 95 08/05/20 13:00 127 27 156/85 (108) 94 08/05/20 13:00 27 Mechanical Ventilator 100 08/05/20 12:30 126 28 154/82 (106) 94 08/05/20 12:00 100 08/05/20 12:00 98.1 119 26 148/80 (102) 94 08/05/20 12:00 120 08/05/20 12:00 26 Mechanical Ventilator 100 08/05/20 12:00 Mechanical Ventilator 08/05/20 11:30 120 24 141/79 (99) 94 08/05/20 11:12 123 26 100 08/05/20 11:00 113 5 134/76 (95) 94 08/05/20 11:00 27 Mechanical Ventilator 100 08/05/20 10:30 113 15 131/84 (100) 95 08/05/20 10:00 26 Mechanical Ventilator 100 08/05/20 10:00 117 24 136/82 (100) 93 Intake and Output 08/05/20 08/06/20 19:00 07:00 Intake Total 703.02413 ml 776.83277 ml Output Total 1185 ml 611 ml Balance -481.05719 ml 165.23440 ml Free Water 60 ml 60 ml IV Total 508.62395 ml 496.95104 ml Tube Feeding 135 ml 220 ml Output Urine Total 1155 ml 590 ml Stool Total 1 ml Chest Tube Drainage Total 30 ml 20 ml # Bowel Movements 1 Laboratory Tests 08/05/20 10:45: Vancomycin Level Trough 14.2H 08/05/20 11:44: POC Whole Blood Glucose 233H 08/06/20 07:25: White Blood Count 15.6H, Red Blood Count 3.66L, Hemoglobin 11.3L, Hematocrit 35.7L, Mean Corpuscular Volume 98, Mean Corpuscular Hemoglobin 31.0, Mean Corpuscular Hemoglobin Concent 31.7L, Red Cell Distribution Width 14.9H, Platelet Count 280, Mean Platelet Volume 6.9, Neutrophils (%) (Auto) , Lymphocytes (%) (Auto) , Monocytes (%) (Auto) , Eosinophils (%) (Auto) , Basophils (%) (Auto) , Differential Total Cells Counted 100, Neutrophils % (Manual) 90H, Lymphocytes % (Manual) 8L, Monocytes % (Manual) 2, Eosinophils % (Manual) 0, Basophils % (Manual) 0, Band Neutrophils 0, Platelet Estimate Adequate, Platelet Morphology Normal, Anisocytosis 1+, Sodium Level 145, Potassium Level 4.3, Chloride Level 105, Carbon Dioxide Level 41*H, Anion Gap - 2L, Blood Urea Nitrogen 24H, Creatinine 0.5L, Estimat Glomerular Filtration Rate > 60, Glucose Level 233H, Calcium Level 8.5, Total Bilirubin 0.5, Aspartate Amino Transf (AST/SGOT) 42H, Alanine Aminotransferase (ALT/SGPT) 32, Alkaline Phosphatase 77, Total Protein 5.7L, Albumin 1.7L, Globulin 4.0, Albumin/Globulin Ratio 0.4L Height (Feet): 5 Height (Inches): 6.00 Weight (Pounds): 209 Objective deferred Assessment/Plan Problem List: (1) Coronavirus infection ICD Codes: B34.2 - Coronavirus infection, unspecified SNOMED: [id number] Status: not improved Assessment/Plan: vent support wean fio2 as able resp care dc lovenox with bleeding from the mouth check duplex scd if duplex neg iv abx per id remains critical and guarded per surgery too unstable for trach. pt would benefit from transfer to tertiary care hospital for higher level care - such as [facility] Rolando Cherry MD Aug 06, 2020 09:59
--- NOTE | 2020-08-06 10:12 | Infectious Diseases Prog Note ---
Assessment/Plan Assessment/Plan A: 1. COVID-19 pneumonia. 2. History of asthma. 3. Elevated liver function tests. 4. Fatty liver 5. DM with hyperglycemia 6. Leukocytosis worsening 7. Hypoxic respiratory failure 8. Klebsiella pneumonia 9. Positive blood culture with CoANS PLAN: 1. Continue Methylprednisone 2. Continue isolation. 3. Continue Ceftriaxone & Vancomycin 4. higher level of care 5. case was D/W RN Subjective ROS Limited/Unobtainable: Yes Constitutional: Reports: fever, other - Pz=[id number] Neurologic: Reports: other - on restraint Allergies: Coded Allergies: No Known Allergies (Unverified , 03/08/17) Objective Last 24 Hour Vital Signs Date Time Temp Pulse Resp B/P (MAP) Pulse Ox O2 Delivery O2 Flow Rate FiO2 08/06/20 07:27 108 29 100 08/06/20 07:00 104 22 120/70 (87) 96 08/06/20 07:00 26 Mechanical Ventilator 100 08/06/20 06:30 102 22 113/66 (82) 95 08/06/20 06:00 100 21 117/59 (78) 97 08/06/20 06:00 24 Mechanical Ventilator 100 08/06/20 05:45 103 22 111/67 (82) 97 08/06/20 05:30 100 19 118/69 (85) 98 08/06/20 05:00 24 Mechanical Ventilator 100 08/06/20 05:00 98 22 118/69 (85) 95 08/06/20 04:30 109 22 119/65 (83) 95 08/06/20 04:00 98.0 118 26 136/81 (99) 95 08/06/20 04:00 Mechanical Ventilator 08/06/20 04:00 117 08/06/20 04:00 23 Mechanical Ventilator 100 08/06/20 04:00 100 08/06/20 03:31 118 28 100 08/06/20 03:30 122 25 137/79 (98) 92 08/06/20 03:00 25 Mechanical Ventilator 100 08/06/20 03:00 126 26 144/79 (100) 90 08/06/20 02:49 26 Mechanical Ventilator 100 08/06/20 02:30 132 29 153/84 (107) 89 08/06/20 02:00 27 Mechanical Ventilator 100 08/06/20 02:00 122 26 140/80 (100) 63 08/06/20 01:45 132 26 125/79 (94) 88 08/06/20 01:30 130 25 136/81 (99) 97 08/06/20 01:00 129 26 138/79 (98) 95 08/06/20 01:00 27 Mechanical Ventilator 100 08/06/20 00:30 100.0 131 29 151/85 (107) 94 08/06/20 00:15 129 28 143/87 (105) 93 08/06/20 00:00 100 08/06/20 00:00 Mechanical Ventilator 08/06/20 00:00 125 27 153/85 (107) 93 08/06/20 00:00 24 Mechanical Ventilator 100 08/06/20 00:00 129 08/05/20 23:30 126 30 157/85 (109) 93 08/05/20 23:17 126 28 100 08/05/20 23:00 28 Mechanical Ventilator 100 08/05/20 23:00 101.0 121 27 146/85 (105) 94 08/05/20 22:30 118 26 140/83 (102) 97 08/05/20 22:00 110 25 137/80 (99) 98 08/05/20 22:00 26 Mechanical Ventilator 100 08/05/20 21:30 106 25 127/78 (94) 96 08/05/20 21:15 100 21 135/80 (98) 97 08/05/20 21:00 25 Mechanical Ventilator 100 08/05/20 21:00 104 23 129/81 (97) 99 08/05/20 20:30 102 22 129/73 (91) 08/05/20 20:00 98.0 120/63 (82) 08/05/20 20:00 105 22 125/77 (93) 98 08/05/20 20:00 100 08/05/20 20:00 22 Mechanical Ventilator 100 08/05/20 20:00 Mechanical Ventilator 08/05/20 20:00 103 08/05/20 19:46 108 29 100 08/05/20 19:45 112 24 126/78 (94) 97 08/05/20 19:30 112 24 144/81 (102) 96 08/05/20 19:20 28 Mechanical Ventilator 100 08/05/20 19:00 25 Mechanical Ventilator 100 08/05/20 19:00 113 25 133/79 (97) 95 08/05/20 18:00 27 Mechanical Ventilator 100 08/05/20 18:00 117 27 126/84 (98) 95 08/05/20 17:00 125 27 134/74 (94) 94 08/05/20 17:00 27 Mechanical Ventilator 100 08/05/20 16:00 99.6 124 26 143/76 (98) 93 08/05/20 16:00 100 08/05/20 16:00 26 Mechanical Ventilator 100 08/05/20 16:00 Mechanical Ventilator 08/05/20 16:00 122 08/05/20 15:00 123 26 100 08/05/20 15:00 122 21 133/75 (94) 94 08/05/20 15:00 21 Mechanical Ventilator 100 08/05/20 14:00 126 26 135/80 (98) 94 08/05/20 14:00 27 Mechanical Ventilator 100 08/05/20 14:00 26 Mechanical Ventilator 100 08/05/20 13:30 125 25 138/79 (98) 95 08/05/20 13:00 127 27 156/85 (108) 94 08/05/20 13:00 27 Mechanical Ventilator 100 08/05/20 12:30 126 28 154/82 (106) 94 08/05/20 12:00 100 08/05/20 12:00 98.1 119 26 148/80 (102) 94 08/05/20 12:00 120 08/05/20 12:00 26 Mechanical Ventilator 100 08/05/20 12:00 Mechanical Ventilator 08/05/20 11:30 120 24 141/79 (99) 94 08/05/20 11:12 123 26 100 08/05/20 11:00 113 5 134/76 (95) 94 08/05/20 11:00 27 Mechanical Ventilator 100 08/05/20 10:30 113 15 131/84 (100) 95 Height (Feet): 5 Height (Inches): 6.00 Weight (Pounds): 209 HEENT: other - orally intubated Respiratory/Chest: other - on DCS7=518% Cardiovascular: tachycardia Abdomen: soft, non tender Extremities: no edema Neurologic/Psychiatric: other - sedated Laboratory Tests Test 08/05/20 10:45 08/05/20 11:44 08/06/20 07:25 Vancomycin Level Trough 14.2 ug/mL (5.0-12.0) H POC Whole Blood Glucose 233 MG/DL (74-106) H White Blood Count 15.6 K/UL (4.8-10.8) H Red Blood Count 3.66 M/UL (4.70-6.10) L Hemoglobin 11.3 G/DL (14.2-18.0) L Hematocrit 35.7 % (42.0-52.0) L Mean Corpuscular Volume 98 FL (80-99) Mean Corpuscular Hemoglobin 31.0 PG (27.0-31.0) Mean Corpuscular Hemoglobin Concent 31.7 G/DL (32.0-36.0) L Red Cell Distribution Width 14.9 % (11.6-14.8) H Platelet Count 280 K/UL (150-450) Mean Platelet Volume 6.9 FL (6.5-10.1) Neutrophils (%) (Auto) % (45.0-75.0) Lymphocytes (%) (Auto) % (20.0-45.0) Monocytes (%) (Auto) % (1.0-10.0) Eosinophils (%) (Auto) % (0.0-3.0) Basophils (%) (Auto) % (0.0-2.0) Differential Total Cells Counted 100 Neutrophils % (Manual) 90 % (45-75) H Lymphocytes % (Manual) 8 % (20-45) L Monocytes % (Manual) 2 % (1-10) Eosinophils % (Manual) 0 % (0-3) Basophils % (Manual) 0 % (0-2) Band Neutrophils 0 % (0-8) Platelet Estimate Adequate Platelet Morphology Normal Anisocytosis 1+ Sodium Level 145 MMOL/L (136-145) Potassium Level 4.3 MMOL/L (3.5-5.1) Chloride Level 105 MMOL/L (98-107) Carbon Dioxide Level 41 MMOL/L (21-32) *H Anion Gap -2 mmol/L (5-15) L Blood Urea Nitrogen 24 mg/dL (7-18) H Creatinine 0.5 MG/DL (0.55-1.30) L Estimat Glomerular Filtration Rate > 60 mL/min (>60) Glucose Level 233 MG/DL (74-106) H Calcium Level 8.5 MG/DL (8.5-10.1) Total Bilirubin 0.5 MG/DL (0.2-1.0) Aspartate Amino Transf (AST/SGOT) 42 U/L (15-37) H Alanine Aminotransferase (ALT/SGPT) 32 U/L (12-78) Alkaline Phosphatase 77 U/L (46-116) Total Protein 5.7 G/DL (6.4-8.2) L Albumin 1.7 G/DL (3.4-5.0) L Globulin 4.0 g/dL Albumin/Globulin Ratio 0.4 (1.0-2.7) L Current Medications Medications (Trade) Dose Ordered Sig/Milagro Route PRN Reason Start Time Stop Time Status Last Admin Dose Admin Acetaminophen (Tylenol) 650 mg Q4H PRN RECTAL Mild Pain (Pain Scale 1-3) 07/24/20 18:15 08/23/20 18:14 07/25/20 11:49 Acetaminophen (Tylenol) 650 mg Q6H PRN NG Temp >100.5 07/26/20 08:30 08/25/20 08:29 08/03/20 09:36 Acetaminophen (Tylenol) 650 mg Q6H PRN NG Mild Pain (Pain Scale 1-3) 07/26/20 08:30 08/25/20 08:29 08/04/20 17:26 Albuterol/ Ipratropium (Combivent Respimat) 2 puff Q2H PRN INH Shortness of Breath 07/09/20 21:45 08/08/20 21:44 07/19/20 09:17 Ascorbic Acid (Vitamin C) 500 mg EVERY 12 HOURS NG 07/26/20 21:00 08/10/20 08:59 08/06/20 09:15 Ceftriaxone Sodium 1 gm/ Dextrose 55 ml @ 110 mls/hr Q24H IVPB 08/01/20 18:00 08/08/20 17:59 08/05/20 17:29 Chlorhexidine Gluconate (Marycarmen-Hex 2%) 1 applic DAILY@2000 TOPIC 07/20/20 20:00 10/18/20 19:59 08/05/20 20:33 Dextrose (Dextrose 50%) 25 ml Q30M PRN IV Hypoglycemia 07/23/20 13:15 10/21/20 13:14 Dextrose (Dextrose 50%) 50 ml Q30M PRN IV Hypoglycemia 07/23/20 13:15 10/21/20 13:14 Dextrose/Sodium Chloride 1,000 ml @ 60 mls/hr [id number] PRN IV WHILE PRONING ONLY 07/24/20 17:45 08/23/20 17:44 07/24/20 18:01 Docusate Sodium (Colace) 100 mg EVERY 12 HOURS NG 07/27/20 21:00 08/26/20 20:59 08/06/20 09:14 Famotidine (Pepcid I.v.) 20 mg Q12HR IVP 08/04/20 21:00 09/03/20 20:59 08/06/20 09:15 Insulin Aspart (NovoLOG) EVERY 6 HOURS SUBQ 07/28/20 00:00 10/21/20 15:59 08/06/20 06:41 Insulin Detemir (Levemir) 26 units EVERY 12 HOURS SUBQ 07/26/20 09:00 10/20/20 08:59 08/06/20 09:18 Methylprednisolone Sodium Succinate (Solu-MEDROL) 40 mg EVERY 12 HOURS IVP 07/25/20 12:30 10/23/20 12:29 08/06/20 09:15 Midazolam HCl 100 ml @ 0 mls/hr Q24H PRN IV Agitation 08/05/20 20:00 11/03/20 19:59 08/06/20 02:49 Ondansetron HCl (Zofran) 4 mg Q6H PRN IVP Nausea & Vomiting 07/09/20 21:45 08/08/20 21:44 Promethazine HCl/ Codeine (Phenergan with Codeine) 5 ml Q4H PRN ORAL For Cough 07/11/20 15:15 08/10/20 15:14 07/26/20 18:26 Vancomycin HCl 250 ml @ 166.667 mls/hr Q8H IVPB 08/03/20 20:00 08/08/20 19:59 08/06/20 03:56 Vancomycin HCl (Vanco pharmacy to dose) 1 ea DAILY PRN MISC Per rx protocol 07/26/20 09:00 08/25/20 08:59 Vitamin B Complex (Vitamin B Complex) 1 tab DAILY NG 07/24/20 09:00 10/09/20 08:59 1/9/21 09:14 Vitamin D (Vitamin D) 1,000 unit BEDTIME GT 07/27/20 21:00 08/13/20 09:29 08/05/20 20:47 Mian Wing MD Aug 06, 2020 10:12
--- NOTE | 2020-08-06 11:00 | NUR ---
NURSE NOTES: Called [facility] and [facility] to request ECMO for HLOC. Pending review of medical acceptance.
--- NOTE | 2020-08-06 11:06 | Surgery Progress Note ---
Surgery Progress Note Subjective Procedure Performed right chest tube insertion Additional Comments worsening on more support labs noted prognosis guarded cont current care Objective Last 24 Hour Vital Signs Date Time Temp Pulse Resp B/P (MAP) Pulse Ox O2 Delivery O2 Flow Rate FiO2 08/06/20 07:27 108 29 100 08/06/20 07:00 104 22 120/70 (87) 96 08/06/20 07:00 26 Mechanical Ventilator 100 08/06/20 06:30 102 22 113/66 (82) 95 08/06/20 06:00 100 21 117/59 (78) 97 08/06/20 06:00 24 Mechanical Ventilator 100 08/06/20 05:45 103 22 111/67 (82) 97 08/06/20 05:30 100 19 118/69 (85) 98 08/06/20 05:00 24 Mechanical Ventilator 100 08/06/20 05:00 98 22 118/69 (85) 95 08/06/20 04:30 109 22 119/65 (83) 95 08/06/20 04:00 98.0 118 26 136/81 (99) 95 08/06/20 04:00 Mechanical Ventilator 08/06/20 04:00 117 08/06/20 04:00 23 Mechanical Ventilator 100 08/06/20 04:00 100 08/06/20 03:31 118 28 100 08/06/20 03:30 122 25 137/79 (98) 92 08/06/20 03:00 25 Mechanical Ventilator 100 08/06/20 03:00 126 26 144/79 (100) 90 08/06/20 02:49 26 Mechanical Ventilator 100 08/06/20 02:30 132 29 153/84 (107) 89 08/06/20 02:00 27 Mechanical Ventilator 100 08/06/20 02:00 122 26 140/80 (100) 63 08/06/20 01:45 132 26 125/79 (94) 88 08/06/20 01:30 130 25 136/81 (99) 97 08/06/20 01:00 129 26 138/79 (98) 95 08/06/20 01:00 27 Mechanical Ventilator 100 08/06/20 00:30 100.0 131 29 151/85 (107) 94 08/06/20 00:15 129 28 143/87 (105) 93 08/06/20 00:00 100 08/06/20 00:00 Mechanical Ventilator 08/06/20 00:00 125 27 153/85 (107) 93 08/06/20 00:00 24 Mechanical Ventilator 100 08/06/20 00:00 129 08/05/20 23:30 126 30 157/85 (109) 93 08/05/20 23:17 126 28 100 08/05/20 23:00 28 Mechanical Ventilator 100 08/05/20 23:00 101.0 121 27 146/85 (105) 94 08/05/20 22:30 118 26 140/83 (102) 97 08/05/20 22:00 110 25 137/80 (99) 98 08/05/20 22:00 26 Mechanical Ventilator 100 08/05/20 21:30 106 25 127/78 (94) 96 08/05/20 21:15 100 21 135/80 (98) 97 08/05/20 21:00 25 Mechanical Ventilator 100 08/05/20 21:00 104 23 129/81 (97) 99 08/05/20 20:30 102 22 129/73 (91) 08/05/20 20:00 98.0 120/63 (82) 08/05/20 20:00 105 22 125/77 (93) 98 08/05/20 20:00 100 08/05/20 20:00 22 Mechanical Ventilator 100 08/05/20 20:00 Mechanical Ventilator 08/05/20 20:00 103 08/05/20 19:46 108 29 100 08/05/20 19:45 112 24 126/78 (94) 97 08/05/20 19:30 112 24 144/81 (102) 96 08/05/20 19:20 28 Mechanical Ventilator 100 08/05/20 19:00 25 Mechanical Ventilator 100 08/05/20 19:00 113 25 133/79 (97) 95 08/05/20 18:00 27 Mechanical Ventilator 100 08/05/20 18:00 117 27 126/84 (98) 95 08/05/20 17:00 125 27 134/74 (94) 94 08/05/20 17:00 27 Mechanical Ventilator 100 08/05/20 16:00 99.6 124 26 143/76 (98) 93 08/05/20 16:00 100 08/05/20 16:00 26 Mechanical Ventilator 100 08/05/20 16:00 Mechanical Ventilator 08/05/20 16:00 122 08/05/20 15:00 123 26 100 08/05/20 15:00 122 21 133/75 (94) 94 08/05/20 15:00 21 Mechanical Ventilator 100 08/05/20 14:00 126 26 135/80 (98) 94 08/05/20 14:00 27 Mechanical Ventilator 100 08/05/20 14:00 26 Mechanical Ventilator 100 08/05/20 13:30 125 25 138/79 (98) 95 08/05/20 13:00 127 27 156/85 (108) 94 08/05/20 13:00 27 Mechanical Ventilator 100 08/05/20 12:30 126 28 154/82 (106) 94 08/05/20 12:00 100 08/05/20 12:00 98.1 119 26 148/80 (102) 94 08/05/20 12:00 120 08/05/20 12:00 26 Mechanical Ventilator 100 08/05/20 12:00 Mechanical Ventilator 08/05/20 11:30 120 24 141/79 (99) 94 08/05/20 11:12 123 26 100 I&O Intake and Output 08/05/20 08/06/20 19:00 07:00 Intake Total 703.08454 ml 776.50216 ml Output Total 1185 ml 611 ml Balance -481.59262 ml 165.69424 ml Free Water 60 ml 60 ml IV Total 508.96435 ml 496.01825 ml Tube Feeding 135 ml 220 ml Output Urine Total 1155 ml 590 ml Stool Total 1 ml Chest Tube Drainage Total 30 ml 20 ml # Bowel Movements 1 Dressing: saturated Drains: other Cardiovascular: RSR, other Respiratory: decreased breath sounds, other Abdomen: soft, non-tender, present bowel sounds Extremities: no tenderness, no cyanosis Laboratory Tests Test 08/05/20 11:44 08/06/20 07:25 POC Whole Blood Glucose 233 MG/DL (74-106) H White Blood Count 15.6 K/UL (4.8-10.8) H Red Blood Count 3.66 M/UL (4.70-6.10) L Hemoglobin 11.3 G/DL (14.2-18.0) L Hematocrit 35.7 % (42.0-52.0) L Mean Corpuscular Volume 98 FL (80-99) Mean Corpuscular Hemoglobin 31.0 PG (27.0-31.0) Mean Corpuscular Hemoglobin Concent 31.7 G/DL (32.0-36.0) L Red Cell Distribution Width 14.9 % (11.6-14.8) H Platelet Count 280 K/UL (150-450) Mean Platelet Volume 6.9 FL (6.5-10.1) Neutrophils (%) (Auto) % (45.0-75.0) Lymphocytes (%) (Auto) % (20.0-45.0) Monocytes (%) (Auto) % (1.0-10.0) Eosinophils (%) (Auto) % (0.0-3.0) Basophils (%) (Auto) % (0.0-2.0) Differential Total Cells Counted 100 Neutrophils % (Manual) 90 % (45-75) H Lymphocytes % (Manual) 8 % (20-45) L Monocytes % (Manual) 2 % (1-10) Eosinophils % (Manual) 0 % (0-3) Basophils % (Manual) 0 % (0-2) Band Neutrophils 0 % (0-8) Platelet Estimate Adequate Platelet Morphology Normal Anisocytosis 1+ Sodium Level 145 MMOL/L (136-145) Potassium Level 4.3 MMOL/L (3.5-5.1) Chloride Level 105 MMOL/L (98-107) Carbon Dioxide Level 41 MMOL/L (21-32) *H Anion Gap -2 mmol/L (5-15) L Blood Urea Nitrogen 24 mg/dL (7-18) H Creatinine 0.5 MG/DL (0.55-1.30) L Estimat Glomerular Filtration Rate > 60 mL/min (>60) Glucose Level 233 MG/DL (74-106) H Calcium Level 8.5 MG/DL (8.5-10.1) Total Bilirubin 0.5 MG/DL (0.2-1.0) Aspartate Amino Transf (AST/SGOT) 42 U/L (15-37) H Alanine Aminotransferase (ALT/SGPT) 32 U/L (12-78) Alkaline Phosphatase 77 U/L (46-116) Total Protein 5.7 G/DL (6.4-8.2) L Albumin 1.7 G/DL (3.4-5.0) L Globulin 4.0 g/dL Albumin/Globulin Ratio 0.4 (1.0-2.7) L Plan Problems: (1) Pneumothorax Assessment & Plan: 30M covid on vent peep 16 fi02 100 right ptx s/p right chest tube ett complication replaced / chest tube vac replaced this AM as well given malfunction high risk low tv cxr noted ill appearing tube and lines checked will need to monitor closely unable to wean vent at this time cont current care plan (2) Respiratory failure (3) Coronavirus infection (4) Diabetes (5) Hypercapnia (6) Hypoxia (7) Asthma (8) HTN (hypertension) (9) Obesity (BMI 30-39.9) (10) Acute respiratory distress syndrome (ARDS) due to 2019-nCoV (11) Acute hypoxemic respiratory failure due to COVID-19 (12) Bradycardia (13) Laceration Mulugeta Butler Aug 06, 2020 11:06
--- NOTE | 2020-08-06 12:04 | NUR ---
NURSE NOTES: Patient is observed bedside and continues to be tachypneic and tachycardic on the donor processor. Patient continues to agonally breathe. Patient has copious secretions that are thick, pink to serosanguineous coming from his lips and gums/ETT. Also notable are scleral edema. Patient con't to be intermittently alert. Shakes his head when answering questions however very brief. Patient is being monitored on the donor processor with VSS Patient is orally intubated with ETT 7.5 with AC 26 TV 500 FIO2 100% Peep +16. Oral care was performed. Patient is afebrile with cooling blanket. Patient has a Biswas catheter that is draining to gravity with light yen urine. Patient is with OGT running Vital AF 1.2 at 20 ml/hr. Pt is sedated with Versed drip at 10mg/hr for RASS SCORE -2 via his DANIEL PICC. Safety measures are in place with bed in the lowest position, locked, HOB kept elevated, call light within reach. Patient is with chest tube. RT anterior chest wall chest tube to intermittent suction with sero sanguinous drainage, secured with tape, monitoring amount and drainage. Will continue to monitor and carry out plan
--- NOTE | 2020-08-06 14:49 | Diagnostic Imaging Report ---
EXAM: XR Chest, 1 View CLINICAL HISTORY: F/U TECHNIQUE: Frontal view of the chest. COMPARISON: Chest radiograph on 08/01/2020 FINDINGS: Hardware: Endotracheal tube terminates in the region of the mid thoracic trachea, approximately 3.6 cm above the blaine. Enteric tube terminates in the region of the proximal stomach. Left-sided PICC line terminates in the region of the lower SVC. Right-sided chest tube projected over the right lung base. Lungs/pleura: Patchy opacities throughout the left greater than right lungs, worst in the mid and lower lungs. This is decreased on the right and increased on the left compared to prior exam. Increased/new small right apical pneumothorax. Heart/mediastinum: Normal. No cardiomegaly. Soft tissues: Unremarkable. Bones: No acute fracture. Upper abdomen: Normal. IMPRESSION: 1. Endotracheal tube terminates in the region of the mid thoracic trachea, approximately 3.6 cm above the blaine. Enteric tube terminates in the region of the proximal stomach. Left-sided PICC line terminates in the region of the lower SVC. 2. Right-sided chest tube projected over the right lung base. Increased/new small right apical pneumothorax. 3. Patchy opacities throughout the left greater than right lungs, worst in the mid and lower lungs. This is decreased on the right and increased on the left compared to prior exam. <MYCVCSECTION> Communications: 08/06/20 15:02 Call Doctor Regarding Pneumothorax, called Ronal Ruiz MD on 08/06 15:05 (-08:00)
--- NOTE | 2020-08-06 15:00 | NUR ---
NURSE NOTES: Called Dr. Cherry - STAT RAD with critical results. Dr. Cherry called back. Small apical R sided PTX 10%. Will monitor for now. No new Orders. Also gave let him know that [facility] declined the transfer for HLOC.
--- NOTE | 2020-08-06 15:31 | Pulmonolgy Critical Care Note ---
Critical Care - Asmt/Plan Assessment/Plan: Pulmonary CCM Progress Noted Subjective ROS Limited/Unobtainable: Yes Allergies: Coded Allergies: No Known Allergies (Unverified , 03/08/17) ID following Intubated, stableO2 sats Sp R chest tube insertion Medications noted Objective Vital Signs noted PE deferred due to COVID 19 Laboratory Tests noted CXR noted Assessment/Plan Assessment/Plan acute hypoxemic respiratory failure COVID pneumonia sp R chest tube Asthma elevated liver enzymes DNR ARDS with fibrosing phase pneumothorax elevated TG PLAN borderline oxygen saturation/ not improved overall CT per surgery needs trach for chronic vent management monitor ABG respiratory care ID noted DVT prophylaxis prognosis appears poor for meaningful recovery monitor respiratory status for change doubt will see improvement in oxygen needs medications/laboratory data/nursing notes/ICU care reviewed in detail note reviewed and edited care discussed with RN and RT ICU time spent >40 minutes Critical Care - Objective Last 24 Hour Vital Signs Date Time Temp Pulse Resp B/P (MAP) Pulse Ox O2 Delivery O2 Flow Rate FiO2 08/06/20 13:30 130 27 138/80 (99) 93 08/06/20 13:00 129 27 144/76 (98) 93 08/06/20 12:30 129 28 137/75 (95) 92 08/06/20 12:00 Mechanical Ventilator 08/06/20 12:00 100 08/06/20 12:00 97.5 130 30 155/82 (106) 90 08/06/20 12:00 121 08/06/20 11:56 26 Mechanical Ventilator 100 08/06/20 11:30 128 30 163/88 (113) 90 08/06/20 11:20 131 29 100 08/06/20 11:00 135 30 155/87 (109) 90 08/06/20 10:30 132 29 166/88 (114) 92 08/06/20 10:00 124 27 162/88 (112) 94 08/06/20 09:30 124 27 158/86 (110) 94 08/06/20 09:00 124 27 158/81 (106) 94 08/06/20 08:30 123 26 151/91 (111) 95 08/06/20 08:00 97.7 121 26 131/91 (104) 95 08/06/20 08:00 Mechanical Ventilator 08/06/20 08:00 121 08/06/20 08:00 100 08/06/20 07:30 121 26 120/70 (87) 95 08/06/20 07:27 108 29 100 08/06/20 07:00 104 22 120/70 (87) 96 08/06/20 07:00 26 Mechanical Ventilator 100 08/06/20 06:30 102 22 113/66 (82) 95 08/06/20 06:00 100 21 117/59 (78) 97 08/06/20 06:00 24 Mechanical Ventilator 100 08/06/20 05:45 103 22 111/67 (82) 97 08/06/20 05:30 100 19 118/69 (85) 98 08/06/20 05:00 24 Mechanical Ventilator 100 08/06/20 05:00 98 22 118/69 (85) 95 08/06/20 04:30 109 22 119/65 (83) 95 08/06/20 04:00 98.0 118 26 136/81 (99) 95 08/06/20 04:00 Mechanical Ventilator 08/06/20 04:00 117 08/06/20 04:00 23 Mechanical Ventilator 100 08/06/20 04:00 100 08/06/20 03:31 118 28 100 08/06/20 03:30 122 25 137/79 (98) 92 08/06/20 03:00 25 Mechanical Ventilator 100 08/06/20 03:00 126 26 144/79 (100) 90 08/06/20 02:49 26 Mechanical Ventilator 100 08/06/20 02:30 132 29 153/84 (107) 89 08/06/20 02:00 27 Mechanical Ventilator 100 08/06/20 02:00 122 26 140/80 (100) 63 08/06/20 01:45 132 26 125/79 (94) 88 08/06/20 01:30 130 25 136/81 (99) 97 08/06/20 01:00 129 26 138/79 (98) 95 08/06/20 01:00 27 Mechanical Ventilator 100 08/06/20 00:30 100.0 131 29 151/85 (107) 94 08/06/20 00:15 129 28 143/87 (105) 93 08/06/20 00:00 100 08/06/20 00:00 Mechanical Ventilator 08/06/20 00:00 125 27 153/85 (107) 93 08/06/20 00:00 24 Mechanical Ventilator 100 08/06/20 00:00 129 08/05/20 23:30 126 30 157/85 (109) 93 08/05/20 23:17 126 28 100 08/05/20 23:00 28 Mechanical Ventilator 100 08/05/20 23:00 101.0 121 27 146/85 (105) 94 08/05/20 22:30 118 26 140/83 (102) 97 08/05/20 22:00 110 25 137/80 (99) 98 08/05/20 22:00 26 Mechanical Ventilator 100 08/05/20 21:30 106 25 127/78 (94) 96 08/05/20 21:15 100 21 135/80 (98) 97 08/05/20 21:00 25 Mechanical Ventilator 100 08/05/20 21:00 104 23 129/81 (97) 99 08/05/20 20:30 102 22 129/73 (91) 08/05/20 20:00 98.0 120/63 (82) 08/05/20 20:00 105 22 125/77 (93) 98 08/05/20 20:00 100 08/05/20 20:00 22 Mechanical Ventilator 100 08/05/20 20:00 Mechanical Ventilator 08/05/20 20:00 103 08/05/20 19:46 108 29 100 08/05/20 19:45 112 24 126/78 (94) 97 08/05/20 19:30 112 24 144/81 (102) 96 08/05/20 19:20 28 Mechanical Ventilator 100 08/05/20 19:00 25 Mechanical Ventilator 100 08/05/20 19:00 113 25 133/79 (97) 95 08/05/20 18:00 27 Mechanical Ventilator 100 08/05/20 18:00 117 27 126/84 (98) 95 08/05/20 17:00 125 27 134/74 (94) 94 08/05/20 17:00 27 Mechanical Ventilator 100 08/05/20 16:00 99.6 124 26 143/76 (98) 93 08/05/20 16:00 100 08/05/20 16:00 26 Mechanical Ventilator 100 08/05/20 16:00 Mechanical Ventilator 08/05/20 16:00 122 Accucheck: 233 Critical Care - Subjective ROS Limited/Unobtainable: Yes Condition: critical FI02: 100 Vent Support Breath Rate: 26 Vent Support Mode: AC Vent Tidal Volume: 500 Sputum Amount: Small PEEP: 16.0 PIP: 41 Tube Feeding Amount: 20 I&O: Intake and Output 08/05/20 08/06/20 19:00 07:00 Intake Total 703.90780 ml 776.69128 ml Output Total 1185 ml 611 ml Balance -481.71361 ml 165.35228 ml Free Water 60 ml 60 ml IV Total 508.64604 ml 496.73402 ml Tube Feeding 135 ml 220 ml Output Urine Total 1155 ml 590 ml Stool Total 1 ml Chest Tube Drainage Total 30 ml 20 ml # Bowel Movements 1 ET-Tube: 7.5 ET Position: 25 Chuck Ortega MD Aug 06, 2020 15:31
--- NOTE | 2020-08-06 16:30 | NUR ---
NURSE NOTES: Spoke to Brother, who will speak to mom in [place]. Came to see brother. Will consider a compassionate extubation. Brother does not want to continue treatment will most likely DNR patient. Did speak with Dr. Cherry. Will return later after he speaks with his mother to with decision.
--- NOTE | 2020-08-06 18:12 | Cardiology Progress Note ---
Subjective Condition remains critical and prognosis guarded Increasingly hypoxic; worsening sinus tachycardia. S/P chest tube for PTX He remains on full vent support, on 100% FIO2 - orally intubated. CXR (08/04) unchanged bilateral infiltrates with increasing subcut emphysema Objective Last 24 Hour Vital Signs Date Time Temp Pulse Resp B/P (MAP) Pulse Ox O2 Delivery O2 Flow Rate FiO2 08/06/20 16:30 125 27 146/79 (101) 94 08/06/20 16:00 100 08/06/20 16:00 125 08/06/20 16:00 Mechanical Ventilator 08/06/20 16:00 97.6 127 28 151/84 (106) 93 08/06/20 15:30 127 28 158/28 (71) 93 08/06/20 15:29 130 27 100 08/06/20 15:00 126 28 132/83 (99) 93 08/06/20 14:30 123 25 124/77 (93) 94 08/06/20 14:00 125 15 134/76 (95) 94 08/06/20 13:30 130 27 138/80 (99) 93 08/06/20 13:00 129 27 144/76 (98) 93 08/06/20 12:30 129 28 137/75 (95) 92 08/06/20 12:00 Mechanical Ventilator 08/06/20 12:00 100 08/06/20 12:00 97.5 130 30 155/82 (106) 90 08/06/20 12:00 121 08/06/20 11:56 26 Mechanical Ventilator 100 08/06/20 11:30 128 30 163/88 (113) 90 08/06/20 11:20 131 29 100 08/06/20 11:00 135 30 155/87 (109) 90 08/06/20 10:30 132 29 166/88 (114) 92 08/06/20 10:00 124 27 162/88 (112) 94 08/06/20 09:30 124 27 158/86 (110) 94 08/06/20 09:00 124 27 158/81 (106) 94 08/06/20 08:30 123 26 151/91 (111) 95 08/06/20 08:00 97.7 121 26 131/91 (104) 95 08/06/20 08:00 Mechanical Ventilator 08/06/20 08:00 121 08/06/20 08:00 100 08/06/20 07:30 121 26 120/70 (87) 95 08/06/20 07:27 108 29 100 08/06/20 07:00 104 22 120/70 (87) 96 08/06/20 07:00 26 Mechanical Ventilator 100 08/06/20 06:30 102 22 113/66 (82) 95 08/06/20 06:00 100 21 117/59 (78) 97 08/06/20 06:00 24 Mechanical Ventilator 100 08/06/20 05:45 103 22 111/67 (82) 97 08/06/20 05:30 100 19 118/69 (85) 98 08/06/20 05:00 24 Mechanical Ventilator 100 08/06/20 05:00 98 22 118/69 (85) 95 08/06/20 04:30 109 22 119/65 (83) 95 08/06/20 04:00 98.0 118 26 136/81 (99) 95 08/06/20 04:00 Mechanical Ventilator 08/06/20 04:00 117 08/06/20 04:00 23 Mechanical Ventilator 100 08/06/20 04:00 100 08/06/20 03:31 118 28 100 08/06/20 03:30 122 25 137/79 (98) 92 08/06/20 03:00 25 Mechanical Ventilator 100 08/06/20 03:00 126 26 144/79 (100) 90 08/06/20 02:49 26 Mechanical Ventilator 100 08/06/20 02:30 132 29 153/84 (107) 89 08/06/20 02:00 27 Mechanical Ventilator 100 08/06/20 02:00 122 26 140/80 (100) 63 08/06/20 01:45 132 26 125/79 (94) 88 08/06/20 01:30 130 25 136/81 (99) 97 08/06/20 01:00 129 26 138/79 (98) 95 08/06/20 01:00 27 Mechanical Ventilator 100 08/06/20 00:30 100.0 131 29 151/85 (107) 94 08/06/20 00:15 129 28 143/87 (105) 93 08/06/20 00:00 100 08/06/20 00:00 Mechanical Ventilator 08/06/20 00:00 125 27 153/85 (107) 93 08/06/20 00:00 24 Mechanical Ventilator 100 08/06/20 00:00 129 08/05/20 23:30 126 30 157/85 (109) 93 08/05/20 23:17 126 28 100 08/05/20 23:00 28 Mechanical Ventilator 100 08/05/20 23:00 101.0 121 27 146/85 (105) 94 08/05/20 22:30 118 26 140/83 (102) 97 08/05/20 22:00 110 25 137/80 (99) 98 08/05/20 22:00 26 Mechanical Ventilator 100 08/05/20 21:30 106 25 127/78 (94) 96 08/05/20 21:15 100 21 135/80 (98) 97 08/05/20 21:00 25 Mechanical Ventilator 100 08/05/20 21:00 104 23 129/81 (97) 99 08/05/20 20:30 102 22 129/73 (91) 08/05/20 20:00 98.0 120/63 (82) 08/05/20 20:00 105 22 125/77 (93) 98 08/05/20 20:00 100 08/05/20 20:00 22 Mechanical Ventilator 100 08/05/20 20:00 Mechanical Ventilator 08/05/20 20:00 103 08/05/20 19:46 108 29 100 08/05/20 19:45 112 24 126/78 (94) 97 08/05/20 19:30 112 24 144/81 (102) 96 08/05/20 19:20 28 Mechanical Ventilator 100 08/05/20 19:00 25 Mechanical Ventilator 100 08/05/20 19:00 113 25 133/79 (97) 95 HEENT: Orally intubated, Mechanically Ventilated, Thin secretions ET Tube RHYTHM: SB LUNGS: bilateral rhonchi, other - right chest tube CARDIAC: regular rhythm, normal S1 and S2, bradycardia ABDOMEN: normal bowel sounds, non tender, soft EXTREMITIES: normal range of motion, non-tender Laboratory Tests Test 08/06/20 07:25 08/06/20 15:31 White Blood Count 15.6 K/UL (4.8-10.8) H Red Blood Count 3.66 M/UL (4.70-6.10) L Hemoglobin 11.3 G/DL (14.2-18.0) L Hematocrit 35.7 % (42.0-52.0) L Mean Corpuscular Volume 98 FL (80-99) Mean Corpuscular Hemoglobin 31.0 PG (27.0-31.0) Mean Corpuscular Hemoglobin Concent 31.7 G/DL (32.0-36.0) L Red Cell Distribution Width 14.9 % (11.6-14.8) H Platelet Count 280 K/UL (150-450) Mean Platelet Volume 6.9 FL (6.5-10.1) Neutrophils (%) (Auto) % (45.0-75.0) Lymphocytes (%) (Auto) % (20.0-45.0) Monocytes (%) (Auto) % (1.0-10.0) Eosinophils (%) (Auto) % (0.0-3.0) Basophils (%) (Auto) % (0.0-2.0) Differential Total Cells Counted 100 Neutrophils % (Manual) 90 % (45-75) H Lymphocytes % (Manual) 8 % (20-45) L Monocytes % (Manual) 2 % (1-10) Eosinophils % (Manual) 0 % (0-3) Basophils % (Manual) 0 % (0-2) Band Neutrophils 0 % (0-8) Platelet Estimate Adequate Platelet Morphology Normal Anisocytosis 1+ Sodium Level 145 MMOL/L (136-145) Potassium Level 4.3 MMOL/L (3.5-5.1) Chloride Level 105 MMOL/L (98-107) Carbon Dioxide Level 41 MMOL/L (21-32) *H Anion Gap -2 mmol/L (5-15) L Blood Urea Nitrogen 24 mg/dL (7-18) H Creatinine 0.5 MG/DL (0.55-1.30) L Estimat Glomerular Filtration Rate > 60 mL/min (>60) Glucose Level 233 MG/DL (74-106) H Calcium Level 8.5 MG/DL (8.5-10.1) Total Bilirubin 0.5 MG/DL (0.2-1.0) Aspartate Amino Transf (AST/SGOT) 42 U/L (15-37) H Alanine Aminotransferase (ALT/SGPT) 32 U/L (12-78) Alkaline Phosphatase 77 U/L (46-116) Total Protein 5.7 G/DL (6.4-8.2) L Albumin 1.7 G/DL (3.4-5.0) L Globulin 4.0 g/dL Albumin/Globulin Ratio 0.4 (1.0-2.7) L Arterial Blood pH 7.341 (7.350-7.450) Arterial Blood Partial Pressure CO2 88.8 mmHg (35.0-45.0) *H Arterial Blood Partial Pressure O2 66.4 mmHg (75.0-100.0) L Arterial Blood HCO3 46.9 mmol/L (22.0-26.0) *H Arterial Blood Oxygen Saturation 92.6 % (95-100) L Arterial Blood Base Excess 17.0 (-2-2) *H Jacob Test Positive Assessment/Plan Assessment/Plan Covid 19 PNA s/p PTX with right chest tube Secondary sinus tachycardia K.pneumonia PNA Acute respiratory failure with severe Hypoxia Sinus bradycardia resolved Diabetes mellitus with hyperglycemia due to steroids Transaminitis Mod protein/calorie malnutrition CRITICAL & GUARDED Chest tube management Abx per ID Continuous cardiac monitoring Anticoagulation and steroid rx Titrate oxygen as able; prone. Vent settings adjusted by pulmonary Anti-viral rx Protein suppl Insulin cov'g by SS; levemir dose advanced further. Chuck Swain MD Aug 06, 2020 18:12
[2020-08-06] MEDS: cefTRIAXone 1 GM in D5W 55 ML IVPB SCH (18:16)
--- NOTE | 2020-08-06 19:40 | NUR ---
NURSE NOTES: Spoke to patient's brother who signed DNR order. Patient will not be withdrawing care although he did express his wish. Family in [place] do not wish to compassionately extubate patient. They wish to continue treatment until patient naturally passes. Dr. Cherry was contacted and DNR order was entered per family wishes.
--- NOTE | 2020-08-06 19:45 | NUR ---
HAND-OFF: Report given to Linnea. Made aware of new DNR status. VSS although O2 sat 88-89%.
--- NOTE | 2020-08-06 19:46 | NUR ---
NURSE NOTES: received pt from Tia THAPA., pt is resting on the bed, opens eyes with voice at this time. no tracking noted. pt has little blood noted in the mouth, but not actively bleeding at this time. manager cardiac cath shows ST at this time. pt is orally intubated ETT 7.5 lip line 25cm AC 26 TV 500 Fio2 100% Peep 16, oral suctioned. oral care given. OGT noted, and VItal AF is running at 20cc/hr, no residual noted. aleman cath noted, draining well with gravity, yen color. left upper arm PICC line noted, dressing site intact, clean, and patent. versed is running 10mg/hr. right chest tube noted with suction. right chest tube dressing site intact, clean, and patent. call light within reach. bed at the lowest position, alarmed, and locked. will continue to monitor pt.
[2020-08-06] MEDS: Vitamin D 1000 units Tab GT SCH (20:17)
[2020-08-06] MEDS: Dyna-Hex 2% Top Sol 2oz TOPIC SCH (20:17)
--- NOTE | 2020-08-06 21:46 | NUR ---
NURSE NOTES: cleaned pt, repositioned pt. changed blanket, pillow cases, and gown. little bleeding noted on mouth. call light within reach. will continue to monitor.
--- NOTE | 2020-08-06 22:45 | NUR ---
NURSE NOTES: O2 sat is at 95%. pt is resting on the bed without s/s of pain. temp 99.8, turned on cooling blanket again. will continue to monitor.
--- NOTE | 2020-08-06 22:50 | NUR ---
NURSE NOTES: 10.75mL of profol wasted per COVID positive patient protocol in presence of Norma Delgadillo RN Addendum: 08/07/20 at 0624 by MALCOLM SCHNEIDER RN Entered in wrong chart, please strike from record
[2020-08-07] VITALS (27 sets, daily range): BP systolic 100–152; BP diastolic 70–89
--- NOTE | 2020-08-07 00:10 | NUR ---
NURSE NOTES: repositioned pt, BS checked. oral care given, oral suction given. chest tube site intact, clean, and dry. call light within reach. will continue to monitor pt.
[2020-08-07] MEDS: NovoLOG Insulin Flexpen SUBQ SCH ×5 (00:16→23:48)
--- NOTE | 2020-08-07 02:10 | NUR ---
NURSE NOTES: repositioned pt, oral suctioned. no s/s of pain at this time.
[2020-08-07] MEDS: Vancomycin 1.25gm Premix IVPB SCH ×3 (03:41→20:22)
--- NOTE | 2020-08-07 04:00 | NUR ---
NURSE NOTES: Bedside assessment performed. RASS score -1 noted at this time, Versed subsequently titrated. Will continue to assess to ensure therapeutic response, will continue to monitor VS and titrate per protocol. Pt assessed for pain with a FLACC score of 0 noted. Physical status remains consistent with previous assessment. Fall, Aspiration and Skin precautions observed. Pt remains resting in bed; Bed remains in the lowest position with the safety wheels engaged, call light within reach, side rails up x3 and bed alarm activated. Will continue plan of care. Will continue to monitor.
--- NOTE | 2020-08-07 04:04 | NUR ---
NURSE NOTES: changed PICC line dressing. used whole aseptic technique with 2 nurses. no s/s of infection and no bleeding noted. call light within reach. oral care given, oral suctioned.
--- NOTE | 2020-08-07 04:20 | NUR ---
NURSE NOTES: sputum sent down to the lab.
--- NOTE | 2020-08-07 05:00 | NUR ---
NURSE NOTES: Versed administered in presence and verified by second RN (Eusebia) Unable to use scanner in room, administered after dual verification in order to prevent delay of care. Scanned as soon as feasible and safe. Versed not paused or held.
[2020-08-07] MEDS: Versed 50mg/NS 100ml 100 ML IV PRN (05:13)
--- NOTE | 2020-08-07 05:15 | NUR ---
NURSE NOTES: 13.6 mL of profol wasted per COVID positive patient protocol in presence of Norma Delgadillo RN. New tubing primed per protocol. Addendum: 08/07/20 at 0625 by MALCOLM SCHNEIDER RN Entered in wrong chart, please strike from record
--- NOTE | 2020-08-07 06:10 | NUR ---
NURSE NOTES: checked blood sugar, 209 and insulin given. changed gown, pillow cases, and chucks because pt had little bleeding from mouth. will continue to monitor pt. call light within reach.
[2020-08-07 06:58] LABS: HEMATOCRIT 37.6 % (42.0-52.0); HEMOGLOBIN 11.7 G/DL (14.2-18.0); MEAN CORPUSCULAR VOLUME 97 FL (80-99); PLATELET COUNT 317 K/UL (150-450); RED BLOOD COUNT 3.87 M/UL (4.70-6.10); RED CELL DISTRIBUTION WIDTH 14.3 % (11.6-14.8); WHITE BLOOD COUNT 13.7 K/UL (4.8-10.8)
--- NOTE | 2020-08-07 07:08 | NUR ---
NURSE HAND-OFF REPORT: need to follow up: sputum sent out so need to follow up, bleeding in the mouth, need to follow up on AM labs. Latest Vital Signs: Temperature 99.8 , Pulse 108 , B/P 115 /84 , Respiratory Rate 22 , O2 SAT 96 , Mechanical Ventilator, O2 Flow Rate . Vital Sign Comment: [stable] EKG Rhythm: Sinus Tachycardia Rhythm change?: N MD Notified?: Ildefonso Diana at bedside for re-intubation MD Response: Latest Bradley Fall Score: 50 Fall Risk: High Risk Safety Measures: Call light Within Reach, Bed Alarm Zone 1, Side Rails Side Rails x3, Bed position Low and Locked. Fall Precautions: Yellow Socks Yellow Gown Door Sign Patient Fall Education Report given to [Tia THAPA].
--- NOTE | 2020-08-07 07:15 | NUR ---
NURSE NOTES: Received pt from Linnea THAPA., Observed patient bedside. Patient is not in any acute distress, is free from any grimacing, is adequately sedated. Patient is critically ill, with scleral edema needing eyes to be taped shut 2/2 to dryness. Patient does not follow commands. Patient has notable open sores on his lips with bloody discharge, sores on his tongue and on the roof of his mouth. Great caution was taken while oral care was performed. Patient's face was cleaned in that copious bloody oral secretions were draining from his mouth down his neck. Patient is afebrile. 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 Patient is orally intubated ETT 7.5 25 at the lip AC 26 TV 500 Fio2 100% Peep 16, while suctioned, oral secretions were thick and pink. Patient with OGT with Vital AF running at 20cc/hr with no residual noted, a 50 ml flush given. Belly sounds are hypoactive. Patient is with a Biswas catheter that is patent and draining to gravity with light yen. Patient is with a LFA 20G running Versed 14 mg/hr and has a DANIEL PICC TKO both are intact, patent. Right chest tube noted with suction. right chest tube dressing site intact, clean, and patent. Safety measures are in place with bed locked to lowest position, HOB elevated. Will continue to monitor pt and follow plan of care.
[2020-08-07 07:44] LABS: ALANINE AMINOTRANSFERASE 39 U/L (12-78); ALBUMIN 1.7 G/DL (3.4-5.0); ALBUMIN/GLOBULIN RATIO 0.4 (1.0-2.7); ALKALINE PHOSPHATASE 78 U/L (46-116); ASPARTATE AMINO TRANSFERASE 49 U/L (15-37); BILIRUBIN,TOTAL 0.5 MG/DL (0.2-1.0); BLOOD UREA NITROGEN 22 mg/dL (7-18); CALCIUM 8.8 MG/DL (8.5-10.1); CHLORIDE 104 MMOL/L (98-107); CREATININE 0.4 MG/DL (0.55-1.30); POTASSIUM 3.9 MMOL/L (3.5-5.1); SODIUM 146 MMOL/L (136-145)
[2020-08-07 07:46] LABS: CARBON DIOXIDE 44 MMOL/L (21-32)
[2020-08-07 07:47] LABS: ANION GAP 0 mmol/L (5-15)
--- NOTE | 2020-08-07 08:42 | General Progress Note ---
Subjective ROS Limited/Unobtainable: No Constitutional: Reports: malaise, weakness HEENT: Reports: no symptoms Cardiovascular: Reports: no symptoms Respiratory: Reports: cough Gastrointestinal/Abdominal: Reports: no symptoms Genitourinary: Reports: no symptoms Neurologic/Psychiatric: Reports: no symptoms Endocrine: Reports: no symptoms Hematologic/Lymphatic: Reports: anemia, easy bleeding Allergies: Coded Allergies: No Known Allergies (Unverified , 03/08/17) All Systems: reviewed and negative except above Subjective still with bleeding from the mouth. still on 100% fio2. sedated. tachycardic. no improvement. family now requested to make pt DNR Objective Last 24 Hour Vital Signs Date Time Temp Pulse Resp B/P (MAP) Pulse Ox O2 Delivery O2 Flow Rate FiO2 08/07/20 07:35 122 26 100 08/07/20 07:00 108 22 115/84 (94) 96 08/07/20 07:00 18 Mechanical Ventilator 100 08/07/20 07:00 18 Mechanical Ventilator 100 08/07/20 06:00 107 21 100/72 (81) 97 08/07/20 06:00 23 Mechanical Ventilator 100 08/07/20 05:13 26 Mechanical Ventilator 100 08/07/20 05:00 124 26 120/74 (89) 98 08/07/20 05:00 26 Mechanical Ventilator 100 08/07/20 04:45 124 28 131/86 (101) 96 08/07/20 04:45 28 Mechanical Ventilator 100 08/07/20 04:30 125 26 125/82 (96) 95 08/07/20 04:30 26 Mechanical Ventilator 100 08/07/20 04:15 125 25 115/71 (86) 96 08/07/20 04:15 25 Mechanical Ventilator 100 08/07/20 04:00 Mechanical Ventilator 08/07/20 04:00 26 Mechanical Ventilator 100 08/07/20 04:00 127 26 124/76 (92) 95 08/07/20 04:00 100 08/07/20 03:59 26 Mechanical Ventilator 100 08/07/20 03:18 121 29 100 08/07/20 03:06 123 08/07/20 03:00 126 25 137/75 (95) 95 08/07/20 02:59 25 Mechanical Ventilator 100 08/07/20 02:00 128 25 124/70 (88) 95 08/07/20 01:59 26 Mechanical Ventilator 100 08/07/20 01:00 124 25 127/76 (93) 96 08/07/20 00:59 26 Mechanical Ventilator 100 08/07/20 00:00 Mechanical Ventilator 08/07/20 00:00 99.8 123 23 114/79 (91) 94 08/06/20 23:59 22 Mechanical Ventilator 100 08/06/20 23:13 127 08/06/20 23:10 137 28 100 08/06/20 23:00 124 26 132/82 (99) 93 08/06/20 23:00 26 Mechanical Ventilator 100 08/06/20 22:00 27 Mechanical Ventilator 100 08/06/20 22:00 128 26 137/84 (101) 94 08/06/20 21:00 130 27 138/81 (100) 93 08/06/20 21:00 27 Mechanical Ventilator 100 08/06/20 20:00 100 08/06/20 20:00 Mechanical Ventilator 08/06/20 20:00 28 Mechanical Ventilator 100 08/06/20 20:00 97.7 141 28 145/79 (101) 90 08/06/20 19:24 137 08/06/20 19:17 136 30 100 08/06/20 19:00 134 30 160/95 (116) 89 08/06/20 19:00 30 Mechanical Ventilator 100 08/06/20 18:52 29 Mechanical Ventilator 100 08/06/20 18:00 130 30 158/88 (111) 94 08/06/20 18:00 27 Mechanical Ventilator 100 08/06/20 17:00 25 Mechanical Ventilator 100 08/06/20 17:00 134 30 172/98 (122) 94 08/06/20 16:30 125 27 146/79 (101) 94 08/06/20 16:00 100 08/06/20 16:00 125 08/06/20 16:00 Mechanical Ventilator 08/06/20 16:00 97.6 127 28 151/84 (106) 93 08/06/20 15:30 127 28 158/28 (71) 93 08/06/20 15:29 130 27 100 08/06/20 15:00 126 28 132/83 (99) 93 08/06/20 14:30 123 25 124/77 (93) 94 08/06/20 14:00 125 15 134/76 (95) 94 08/06/20 13:30 130 27 138/80 (99) 93 08/06/20 13:00 129 27 144/76 (98) 93 08/06/20 12:30 129 28 137/75 (95) 92 08/06/20 12:00 Mechanical Ventilator 08/06/20 12:00 100 08/06/20 12:00 97.5 130 30 155/82 (106) 90 08/06/20 12:00 121 08/06/20 11:56 26 Mechanical Ventilator 100 08/06/20 11:30 128 30 163/88 (113) 90 08/06/20 11:20 131 29 100 08/06/20 11:00 135 30 155/87 (109) 90 08/06/20 10:30 132 29 166/88 (114) 92 08/06/20 10:00 124 27 162/88 (112) 94 08/06/20 09:30 124 27 158/86 (110) 94 08/06/20 09:00 124 27 158/81 (106) 94 Intake and Output 08/06/20 08/07/20 19:00 07:00 Intake Total 449.3336 ml 804.96587 ml Output Total 693 ml 1217 ml Balance -243.6664 ml -412.37275 ml Free Water 60 ml IV Total 209.3336 ml 504.70153 ml Tube Feeding 240 ml 240 ml Output Urine Total 693 ml 1187 ml Chest Tube Drainage Total 30 ml Laboratory Tests 08/06/20 15:31: Arterial Blood pH 7.341L, Arterial Blood Partial Pressure CO2 88.8*H, Arterial Blood Partial Pressure O2 66.4L, Arterial Blood HCO3 46.9*H, Arterial Blood Oxygen Saturation 92.6L, Arterial Blood Base Excess 17.0*H, Jacob Test Positive 08/06/20 16:59: POC Whole Blood Glucose 258H 08/06/20 20:24: POC Whole Blood Glucose [Pending] 08/07/20 00:07: POC Whole Blood Glucose 246H 08/07/20 06:00: White Blood Count 13.7H, Red Blood Count 3.87L, Hemoglobin 11.7L, Hematocrit 37.6L, Mean Corpuscular Volume 97, Mean Corpuscular Hemoglobin 30.4, Mean Corpuscular Hemoglobin Concent 31.3L, Red Cell Distribution Width 14.3, Platelet Count 317, Mean Platelet Volume 7.1, Neutrophils (%) (Auto) , Lymphocytes (%) (Auto) , Monocytes (%) (Auto) , Eosinophils (%) (Auto) , Basophils (%) (Auto) , Neutrophils % (Manual) [Pending], Lymphocytes % (Manual) [Pending], Platelet Estimate [Pending], Platelet Morphology [Pending], Sodium Level 146H, Potassium Level 3.9, Chloride Level 104, Carbon Dioxide Level 44*H, Anion Gap 0L, Blood Urea Nitrogen 22H, Creatinine 0.4L, Estimat Glomerular Filtration Rate > 60, Glucose Level 209H, Calcium Level 8.8, Total Bilirubin 0.5, Aspartate Amino Transf (AST/SGOT) 49H, Alanine Aminotransferase (ALT/SGPT) 39, Alkaline Phosphatase 78, Total Protein 5.6L, Albumin 1.7L, Globulin 3.9, Albumin/Globulin Ratio 0.4L Height (Feet): 5 Height (Inches): 6.00 Weight (Pounds): 209 Objective deferred Assessment/Plan Problem List: (1) Coronavirus infection ICD Codes: B34.2 - Coronavirus infection, unspecified SNOMED: [id number] Status: not improved Assessment/Plan: vent support wean fio2 as able resp care dc lovenox with bleeding from the mouth check duplex scd if duplex neg check d-dimer and fibronogen iv abx per id remains critical and guarded attempted to transfer for higher level of care- no accepting hospitals so far Rolando Cherry MD Aug 07, 2020 08:42
--- NOTE | 2020-08-07 09:00 | NUR ---
NURSE NOTES: Dr. Cherry assessed patient bedside. Discussed patient's care at length. Will keep patient as comfortable as possible. Patient is critically ill. Will keep sedated for comfort and monitor closely. Also will endorse the care of ensuring to not use blood thinners or use care when suctioning 2/2 INC bloody secretions from mouth/lips.
[2020-08-07] MEDS: Ascorbic Acid 500mg tab NG SCH ×2 (09:21→20:20)
[2020-08-07] MEDS: Vitamin B Complex Tab NG SCH (09:21)
[2020-08-07] MEDS: Solu-MEDROL 40mg Inj IVP SCH (09:21)
[2020-08-07] MEDS: Docusate 100mg/10ml Liq NG SCH ×2 (09:21→20:20)
[2020-08-07] MEDS ORDERED: Versed 50mg/NS 100ml 100 ML IV SCH (09:45)
[2020-08-07] MEDS: Versed 50mg/NS 100ml 100 ML IV SCH ×2 (10:06→13:29)
[2020-08-07] MEDS: Levemir Flexpen SUBQ SCH ×2 (10:07→20:22)
--- NOTE | 2020-08-07 11:40 | NUR ---
NURSE NOTES: Mother of patient called from [place] and aggressively requested a list of people to be "added to the list" to make decisions for the patient. Mother asked about diabetic standpoint of patient, asked about cardiac condition and insisted on blood sugars and Insulin for patient. Also wanted to know what type of steroid being given. Lastly wanted patient transferred to another hospital. When asked about her son here in the [place] and him making decisions, she said yes him too. Dilshad, brother of patient who has been making decisions was called. He wants to remain the sole decision maker not his mother. He requested that his mother not be allowed to add the requested people to the list. Made notation on the original FS in the chart. Will endorse to the incoming nurse
--- NOTE | 2020-08-07 12:19 | NUR ---
RD ASSESSMENT & RECOMMENDATIONS SEE CARE ACTIVITY FOR COMPLETE ASSESSMENT DAILY ESTIMATED NEEDS: Needs based on Critical care 72kg abw 22-28 kcals/kg [id number] total kcals 1.2-2 g protein/kg 86-144 g total protein 25-30 mL/kg 2995-0730 total fluid mLs NUTRITION DIAGNOSIS: * Swallowing difficulty R/T respiratory failure as evidenced by pt now orally intubated, NPO, now w/ NGT to LIS. * Altered nutrition related lab values r/t hyperglycemia as evidenced by BG POC glu in the 300's-> 200's, pt on Solumedrol CURRENT TF: Vital 1.2 @ 30ml/hr-now running at 20ml/hr ENTERAL NUTRITION RECOMMENDATIONS: Vital 1.2 for critical care and carb control @ goal of 55ml/hr x24 hrs to provide 1320ml, 1584kcal, 99g prot, 1071ml free water - When medically stable for feeds, initiate Vital 1.2 for critical care and carb control. - Advance as tolerated 10ml/hr q4-6 hrs to goal - Flush per MD, HOB over 30 degrees - Now off propofol. Advance to goal as tolerated. ADDITIONAL RECOMMENDATIONS: 1) Rec to check HgA1C for eval 2) Insulin regimen for improved BG- now on levemir + niss 3) Monitor resp status, currently on high flow O2 w/ good po intake Now intubated (07/20), TF recs as above when medically appropriate 4) MONITOR NPO STATUS: TF at low rate . .
[2020-08-07] MEDS: cefTRIAXone 1 GM in D5W 55 ML IVPB SCH (12:25)
--- NOTE | 2020-08-07 13:12 | NUR ---
NURSE NOTES: Patient observed bedside. Patient is not in any acute distress, is free from any grimacing except when doing oral care. patient does grimace during oral care. Patient continues with scleral edema that necessitates eyes to be tapes closed 2/2 to dryness. Patient does still attempt to make eye contact through paper tape while performing care. Patient with notable open sores on his lips, tongue and roof of his mouth with bloody discharge. Great caution was taken while oral care was performed to not make the sores bleed more or cause more discomfort. Patient's face requires frequent cleaning from the bloody discharge from the bloody oral secretions that drain from his mouth. Patient is afebrile. 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 Patient is orally intubated with vent settings AC 26 TV 500 Fio2 100% Peep 16, while suctioned, oral secretions were thick and dark red. Patient with OGT with Vital AF running at 20cc/hr. Patient is with a Biswas catheter that is patent and draining to gravity with light yen urine. Patient is with a LFA 20G running Versed 14 mg/hr and has a DANIEL PICC TKO both are intact, patent. Right chest tube noted with suction. right chest tube dressing site intact, clean, and patent. Safety measures are in place with bed locked to lowest position, HOB elevated. Will continue to monitor pt and follow plan of care.
--- NOTE | 2020-08-07 13:30 | NUR ---
NURSE NOTES: Spoke to Dr Cherry who spoke to family and family friend about possible HLOC to [facility]. Will put in CM referral to attempt transfer request to [facility] for ECMO. Did not attempt transfers to or [facility]. CM and patient insurance needs to be involved in that process.
--- NOTE | 2020-08-07 14:12 | Surgery Progress Note ---
Surgery Progress Note Subjective Procedure Performed right chest tube insertion Additional Comments family has made patient dnr ill appearing on very high support tube okay prognosis guarded Objective Last 24 Hour Vital Signs Date Time Temp Pulse Resp B/P (MAP) Pulse Ox O2 Delivery O2 Flow Rate FiO2 08/07/20 13:29 25 Mechanical Ventilator 100 08/07/20 13:00 125 26 149/83 (105) 95 08/07/20 13:00 26 Mechanical Ventilator 100 08/07/20 12:00 124 08/07/20 12:00 124 24 123/77 (92) 95 08/07/20 12:00 100 08/07/20 12:00 25 Mechanical Ventilator 100 08/07/20 12:00 Mechanical Ventilator 08/07/20 11:50 118 26 100 08/07/20 11:00 122 26 148/84 (105) 96 08/07/20 11:00 26 Mechanical Ventilator 100 08/07/20 10:06 23 Mechanical Ventilator 100 08/07/20 10:00 24 Mechanical Ventilator 100 08/07/20 10:00 115 24 124/75 (91) 97 08/07/20 09:00 121 24 122/77 (92) 95 08/07/20 09:00 24 Mechanical Ventilator 100 08/07/20 08:00 100 08/07/20 08:00 Mechanical Ventilator 08/07/20 08:00 121 08/07/20 08:00 24 Mechanical Ventilator 100 08/07/20 08:00 120 24 130/87 (101) 96 08/07/20 07:35 122 26 100 08/07/20 07:00 108 22 115/84 (94) 96 08/07/20 07:00 18 Mechanical Ventilator 100 08/07/20 07:00 18 Mechanical Ventilator 100 08/07/20 06:00 107 21 100/72 (81) 97 08/07/20 06:00 23 Mechanical Ventilator 100 08/07/20 05:13 26 Mechanical Ventilator 100 08/07/20 05:00 124 26 120/74 (89) 98 08/07/20 05:00 26 Mechanical Ventilator 100 08/07/20 04:45 124 28 131/86 (101) 96 08/07/20 04:45 28 Mechanical Ventilator 100 08/07/20 04:30 125 26 125/82 (96) 95 08/07/20 04:30 26 Mechanical Ventilator 100 08/07/20 04:15 125 25 115/71 (86) 96 08/07/20 04:15 25 Mechanical Ventilator 100 08/07/20 04:00 Mechanical Ventilator 08/07/20 04:00 26 Mechanical Ventilator 100 08/07/20 04:00 127 26 124/76 (92) 95 08/07/20 04:00 100 08/07/20 03:59 26 Mechanical Ventilator 100 08/07/20 03:18 121 29 100 08/07/20 03:06 123 08/07/20 03:00 126 25 137/75 (95) 95 08/07/20 02:59 25 Mechanical Ventilator 100 08/07/20 02:00 128 25 124/70 (88) 95 08/07/20 01:59 26 Mechanical Ventilator 100 08/07/20 01:00 124 25 127/76 (93) 96 08/07/20 00:59 26 Mechanical Ventilator 100 08/07/20 00:00 Mechanical Ventilator 08/07/20 00:00 99.8 123 23 114/79 (91) 94 08/06/20 23:59 22 Mechanical Ventilator 100 08/06/20 23:13 127 08/06/20 23:10 137 28 100 08/06/20 23:00 124 26 132/82 (99) 93 08/06/20 23:00 26 Mechanical Ventilator 100 08/06/20 22:00 27 Mechanical Ventilator 100 08/06/20 22:00 128 26 137/84 (101) 94 08/06/20 21:00 130 27 138/81 (100) 93 08/06/20 21:00 27 Mechanical Ventilator 100 08/06/20 20:00 100 08/06/20 20:00 Mechanical Ventilator 08/06/20 20:00 28 Mechanical Ventilator 100 08/06/20 20:00 97.7 141 28 145/79 (101) 90 08/06/20 19:24 137 08/06/20 19:17 136 30 100 08/06/20 19:00 134 30 160/95 (116) 89 08/06/20 19:00 30 Mechanical Ventilator 100 08/06/20 18:52 29 Mechanical Ventilator 100 08/06/20 18:00 130 30 158/88 (111) 94 08/06/20 18:00 27 Mechanical Ventilator 100 08/06/20 17:00 25 Mechanical Ventilator 100 08/06/20 17:00 134 30 172/98 (122) 94 08/06/20 16:30 125 27 146/79 (101) 94 08/06/20 16:00 100 08/06/20 16:00 125 08/06/20 16:00 Mechanical Ventilator 08/06/20 16:00 97.6 127 28 151/84 (106) 93 08/06/20 15:30 127 28 158/28 (71) 93 08/06/20 15:29 130 27 100 08/06/20 15:00 126 28 132/83 (99) 93 08/06/20 14:30 123 25 124/77 (93) 94 I&O Intake and Output 08/06/20 08/07/20 19:00 07:00 Intake Total 449.3336 ml 804.99626 ml Output Total 693 ml 1217 ml Balance -243.6664 ml -412.28967 ml Free Water 60 ml IV Total 209.3336 ml 504.52416 ml Tube Feeding 240 ml 240 ml Output Urine Total 693 ml 1187 ml Chest Tube Drainage Total 30 ml Dressing: saturated Cardiovascular: RSR Respiratory: decreased breath sounds Abdomen: soft, non-tender, present bowel sounds, non-distended Extremities: no tenderness, no cyanosis Laboratory Tests Test 08/06/20 15:31 08/06/20 16:59 08/06/20 20:24 08/07/20 00:07 Arterial Blood pH 7.341 (7.350-7.450) Arterial Blood Partial Pressure CO2 88.8 mmHg (35.0-45.0) *H Arterial Blood Partial Pressure O2 66.4 mmHg (75.0-100.0) L Arterial Blood HCO3 46.9 mmol/L (22.0-26.0) *H Arterial Blood Oxygen Saturation 92.6 % (95-100) L Arterial Blood Base Excess 17.0 (-2-2) *H Jacob Test Positive POC Whole Blood Glucose 258 MG/DL (74-106) H Pending 246 MG/DL (74-106) H Test 08/07/20 06:00 08/07/20 10:03 08/07/20 11:05 White Blood Count 13.7 K/UL (4.8-10.8) H Red Blood Count 3.87 M/UL (4.70-6.10) L Hemoglobin 11.7 G/DL (14.2-18.0) L Hematocrit 37.6 % (42.0-52.0) L Mean Corpuscular Volume 97 FL (80-99) Mean Corpuscular Hemoglobin 30.4 PG (27.0-31.0) Mean Corpuscular Hemoglobin Concent 31.3 G/DL (32.0-36.0) L Red Cell Distribution Width 14.3 % (11.6-14.8) Platelet Count 317 K/UL (150-450) Mean Platelet Volume 7.1 FL (6.5-10.1) Neutrophils (%) (Auto) % (45.0-75.0) Lymphocytes (%) (Auto) % (20.0-45.0) Monocytes (%) (Auto) % (1.0-10.0) Eosinophils (%) (Auto) % (0.0-3.0) Basophils (%) (Auto) % (0.0-2.0) Differential Total Cells Counted 100 Neutrophils % (Manual) 94 % (45-75) H Lymphocytes % (Manual) 4 % (20-45) L Monocytes % (Manual) 2 % (1-10) Eosinophils % (Manual) 0 % (0-3) Basophils % (Manual) 0 % (0-2) Band Neutrophils 0 % (0-8) Platelet Estimate Adequate Platelet Morphology Normal Hypochromasia 1+ Anisocytosis 1+ Sodium Level 146 MMOL/L (136-145) H Potassium Level 3.9 MMOL/L (3.5-5.1) Chloride Level 104 MMOL/L (98-107) Carbon Dioxide Level 44 MMOL/L (21-32) *H Anion Gap 0 mmol/L (5-15) L Blood Urea Nitrogen 22 mg/dL (7-18) H Creatinine 0.4 MG/DL (0.55-1.30) L Estimat Glomerular Filtration Rate > 60 mL/min (>60) Glucose Level 209 MG/DL (74-106) H Calcium Level 8.8 MG/DL (8.5-10.1) Total Bilirubin 0.5 MG/DL (0.2-1.0) Aspartate Amino Transf (AST/SGOT) 49 U/L (15-37) H Alanine Aminotransferase (ALT/SGPT) 39 U/L (12-78) Alkaline Phosphatase 78 U/L (46-116) Total Protein 5.6 G/DL (6.4-8.2) L Albumin 1.7 G/DL (3.4-5.0) L Globulin 3.9 g/dL Albumin/Globulin Ratio 0.4 (1.0-2.7) L POC Whole Blood Glucose 197 MG/DL (74-106) H Fibrinogen 663 mg/dL (200-400) H D-Dimer 2.84 mg/L FEU (0.00-0.49) H Plan Problems: (1) Pneumothorax Assessment & Plan: 30M covid on vent peep 16 fi02 100 right ptx s/p right chest tube ett complication replaced 07/01 chest tube vac replaced this AM as well given malfunction high risk low tv cxr noted ill appearing tube and lines checked will need to monitor closely unable to wean vent at this time cont current care plan (2) Respiratory failure (3) Coronavirus infection (4) Diabetes (5) Hypercapnia (6) Hypoxia (7) Asthma (8) HTN (hypertension) (9) Obesity (BMI 30-39.9) (10) Acute respiratory distress syndrome (ARDS) due to 2019-nCoV (11) Acute hypoxemic respiratory failure due to COVID-19 (12) Bradycardia (13) Laceration Mulugeta Butler Aug 07, 2020 14:12
--- NOTE | 2020-08-07 15:38 | NUR ---
NURSE NOTES: Called Dr. Alberto regarding the sores in patient's mouth, lips and tongue. Received order and also to DEC [facility]u-Medrol to once daily. Will enter orders per MD request.
--- NOTE | 2020-08-07 18:17 | NUR ---
NURSE NOTES: Patient was cleaned, repositioned, linens changed and oral care performed. Patient also had rectal probe changed for accuracy for temperature. New arm band was also placed. Patient does not appear in any acute distress however did grimace occasionally while oral care performed and repositioning. Will endorse to PM nurse during handoff regarding caution during oral care. Will continue to monitor.
[2020-08-07] MEDS: Midazolam HCl 50mg/10ml vial 100 MG in NS 180 ML IV SCH (18:30)
[2020-08-07] MEDS: Dyna-Hex 2% Top Sol 2oz TOPIC SCH (19:19)
--- NOTE | 2020-08-07 19:40 | NUR ---
HAND-OFF: Report given to Christina. VSS with exception of tachycardia. Also endorsed careful oral care and possible HLOC transfer.
--- NOTE | 2020-08-07 19:41 | NUR ---
NURSE NOTES: Patient received from ELIER Weber. Patient sedated with 7.5 ETT at 25cm lipline on ventilator AC 26 TV 500 FiO2 100% PEEP 16. BP152/89 HR131 Sinus Tachy on monitor. Left upper arm PICC running versed 14mg/hr and left forearm #20 asymptomatic. Left nare NGT running Vital AF @20ml/hr. Biswas catheter draining yellow urine. Right side chest tube secured to floor with clamp at bedside. Bilateral arm generalized edema and bilateral sclera edema noted. Patient repositioned and oral care provided.
--- NOTE | 2020-08-07 20:04 | Pulmonolgy Critical Care Note ---
Critical Care - Asmt/Plan Assessment/Plan: Pulmonary CCM Progress Noted Subjective ROS Limited/Unobtainable: Yes Allergies: Coded Allergies: No Known Allergies (Unverified , 03/08/17) ID following Intubated, stable O2 sats,FIO2 100%, worsening Vd/Vt Sp R chest tube insertion Medications noted Objective Vital Signs noted PE deferred due to COVID 19 Laboratory Tests noted CXR noted Assessment/Plan Assessment/Plan acute hypoxemic respiratory failure,hypercapnea high FIO2/PEEP COVID pneumonia sp R chest tube Asthma elevated liver enzymes DNAR status ARDS with fibrosing phase pneumothorax elevated TG PLAN borderline oxygen saturation/ not improved overall CT per surgery needs trach for chronic vent management DNAR status monitor ABG respiratory care ID noted DVT prophylaxis prognosis appears poor for meaningful recovery monitor respiratory status for change doubt will see improvement in oxygen needs medications/laboratory data/nursing notes/ICU care reviewed in detail note reviewed and edited care discussed with RN and RT ICU time spent >40 minutes Critical Care - Objective Last 24 Hour Vital Signs Date Time Temp Pulse Resp B/P (MAP) Pulse Ox O2 Delivery O2 Flow Rate FiO2 08/07/20 19:30 136 27 100 08/07/20 18:30 26 Mechanical Ventilator 100 08/07/20 18:00 97.4 130 27 142/84 (103) 97 08/07/20 17:00 97.2 128 25 136/83 (100) 96 08/07/20 16:00 126 08/07/20 16:00 100 08/07/20 16:00 Mechanical Ventilator 08/07/20 16:00 26 Mechanical Ventilator 100 08/07/20 16:00 97.1 128 26 133/79 (97) 96 08/07/20 15:38 125 26 100 08/07/20 15:00 127 27 138/77 (97) 96 08/07/20 15:00 27 Mechanical Ventilator 100 08/07/20 14:00 127 35 141/81 (101) 96 08/07/20 14:00 27 Mechanical Ventilator 100 08/07/20 13:29 25 Mechanical Ventilator 100 08/07/20 13:00 125 26 149/83 (105) 95 08/07/20 13:00 26 Mechanical Ventilator 100 08/07/20 12:00 124 08/07/20 12:00 124 24 123/77 (92) 95 08/07/20 12:00 100 08/07/20 12:00 25 Mechanical Ventilator 100 08/07/20 12:00 Mechanical Ventilator 08/07/20 11:50 118 26 100 08/07/20 11:00 122 26 148/84 (105) 96 08/07/20 11:00 26 Mechanical Ventilator 100 08/07/20 10:06 23 Mechanical Ventilator 100 08/07/20 10:00 24 Mechanical Ventilator 100 08/07/20 10:00 115 24 124/75 (91) 97 08/07/20 09:00 121 24 122/77 (92) 95 08/07/20 09:00 24 Mechanical Ventilator 100 08/07/20 09:00 24 Mechanical Ventilator 100 08/07/20 08:00 100 08/07/20 08:00 Mechanical Ventilator 08/07/20 08:00 121 08/07/20 08:00 24 Mechanical Ventilator 100 08/07/20 08:00 24 Mechanical Ventilator 100 08/07/20 08:00 120 24 130/87 (101) 96 08/07/20 07:35 122 26 100 08/07/20 07:00 108 22 115/84 (94) 96 08/07/20 07:00 18 Mechanical Ventilator 100 08/07/20 07:00 18 Mechanical Ventilator 100 08/07/20 06:00 107 21 100/72 (81) 97 08/07/20 06:00 23 Mechanical Ventilator 100 08/07/20 05:13 26 Mechanical Ventilator 100 08/07/20 05:00 124 26 120/74 (89) 98 08/07/20 05:00 26 Mechanical Ventilator 100 08/07/20 04:45 124 28 131/86 (101) 96 08/07/20 04:45 28 Mechanical Ventilator 100 08/07/20 04:30 125 26 125/82 (96) 95 08/07/20 04:30 26 Mechanical Ventilator 100 08/07/20 04:15 125 25 115/71 (86) 96 08/07/20 04:15 25 Mechanical Ventilator 100 08/07/20 04:00 Mechanical Ventilator 08/07/20 04:00 26 Mechanical Ventilator 100 08/07/20 04:00 127 26 124/76 (92) 95 08/07/20 04:00 100 08/07/20 03:59 26 Mechanical Ventilator 100 08/07/20 03:18 121 29 100 08/07/20 03:06 123 08/07/20 03:00 126 25 137/75 (95) 95 08/07/20 02:59 25 Mechanical Ventilator 100 08/07/20 02:00 128 25 124/70 (88) 95 08/07/20 01:59 26 Mechanical Ventilator 100 08/07/20 01:00 124 25 127/76 (93) 96 08/07/20 00:59 26 Mechanical Ventilator 100 08/07/20 00:00 Mechanical Ventilator 08/07/20 00:00 99.8 123 23 114/79 (91) 94 08/06/20 23:59 22 Mechanical Ventilator 100 08/06/20 23:13 127 08/06/20 23:10 137 28 100 08/06/20 23:00 124 26 132/82 (99) 93 08/06/20 23:00 26 Mechanical Ventilator 100 08/06/20 22:00 27 Mechanical Ventilator 100 08/06/20 22:00 128 26 137/84 (101) 94 08/06/20 21:00 130 27 138/81 (100) 93 08/06/20 21:00 27 Mechanical Ventilator 100 Accucheck: 234 Critical Care - Subjective ROS Limited/Unobtainable: Yes Condition: critical FI02: 100 Vent Support Breath Rate: 26 Vent Support Mode: AC Vent Tidal Volume: 500 Sputum Amount: Small PEEP: 16.0 PIP: 35 Tube Feeding Amount: 20 I&O: Intake and Output 08/06/20 08/07/20 19:00 07:00 Intake Total 449.3336 ml 804.57077 ml Output Total 693 ml 1217 ml Balance -243.6664 ml -412.31758 ml Free Water 60 ml IV Total 209.3336 ml 504.02511 ml Tube Feeding 240 ml 240 ml Output Urine Total 693 ml 1187 ml Chest Tube Drainage Total 30 ml ET-Tube: 7.5 ET Position: 25 Chuck Ortega MD Aug 07, 2020 20:04
[2020-08-07] MEDS: Vitamin D 1000 units Tab GT SCH (20:20)
--- NOTE | 2020-08-07 22:00 | NUR ---
NURSE NOTES: Patient sedated with 7.5 ETT at 25cm lipline on ventilator AC 26 TV 500 FiO2 100% PEEP 16. BP133/81 HR125 Sinus Tachy on monitor. Left upper arm PICC running versed 14mg/hr and left forearm #20 asymptomatic. Left nare NGT running Vital AF @20ml/hr. Biswas catheter draining yellow urine. Right side chest tube secured to floor with clamp at bedside. Patient repositioned and oral care provided, with oral bleeding with swabbing noted.
--- NOTE | 2020-08-07 23:32 | Cardiology Progress Note ---
Subjective DATE OF SERVICE: Aug 07, 2020 Condition remains critical and prognosis guarded Increasingly hypoxic; worsening sinus tachycardia. S/P chest tube for PTX He remains on full vent support, on 100% FIO2 - orally intubated. CXR (08/04) unchanged bilateral infiltrates with increasing subcut emphysema Objective Last 24 Hour Vital Signs Date Time Temp Pulse Resp B/P (MAP) Pulse Ox O2 Delivery O2 Flow Rate FiO2 08/07/20 23:09 130 28 100 08/07/20 23:00 130 27 140/83 (102) 93 08/07/20 23:00 26 Mechanical Ventilator 100 08/07/20 22:00 125 25 133/81 (98) 95 08/07/20 22:00 25 Mechanical Ventilator 100 08/07/20 21:00 122 25 134/78 (96) 96 08/07/20 21:00 25 Mechanical Ventilator 100 08/07/20 20:00 Mechanical Ventilator 08/07/20 20:00 100 08/07/20 20:00 25 Mechanical Ventilator 100 08/07/20 20:00 131 08/07/20 20:00 98.0 133 23 150/85 (106) 96 08/07/20 19:30 136 27 100 08/07/20 19:00 25 Mechanical Ventilator 100 08/07/20 19:00 131 24 152/89 (110) 95 08/07/20 18:30 26 Mechanical Ventilator 100 08/07/20 18:00 27 Mechanical Ventilator 100 08/07/20 18:00 97.4 130 27 142/84 (103) 97 08/07/20 17:00 97.2 128 25 136/83 (100) 96 08/07/20 16:58 26 Mechanical Ventilator 100 08/07/20 16:00 126 08/07/20 16:00 100 08/07/20 16:00 Mechanical Ventilator 08/07/20 16:00 26 Mechanical Ventilator 100 08/07/20 16:00 97.1 128 26 133/79 (97) 96 08/07/20 15:38 125 26 100 08/07/20 15:00 127 27 138/77 (97) 96 08/07/20 15:00 27 Mechanical Ventilator 100 08/07/20 14:00 127 35 141/81 (101) 96 08/07/20 14:00 27 Mechanical Ventilator 100 08/07/20 13:29 25 Mechanical Ventilator 100 08/07/20 13:00 125 26 149/83 (105) 95 08/07/20 13:00 26 Mechanical Ventilator 100 08/07/20 12:00 124 08/07/20 12:00 124 24 123/77 (92) 95 08/07/20 12:00 100 08/07/20 12:00 25 Mechanical Ventilator 100 08/07/20 12:00 Mechanical Ventilator 08/07/20 11:50 118 26 100 08/07/20 11:00 122 26 148/84 (105) 96 08/07/20 11:00 26 Mechanical Ventilator 100 08/07/20 10:06 23 Mechanical Ventilator 100 08/07/20 10:00 24 Mechanical Ventilator 100 08/07/20 10:00 115 24 124/75 (91) 97 08/07/20 09:00 121 24 122/77 (92) 95 08/07/20 09:00 24 Mechanical Ventilator 100 08/07/20 09:00 24 Mechanical Ventilator 100 08/07/20 08:00 100 08/07/20 08:00 Mechanical Ventilator 08/07/20 08:00 121 08/07/20 08:00 24 Mechanical Ventilator 100 08/07/20 08:00 24 Mechanical Ventilator 100 08/07/20 08:00 120 24 130/87 (101) 96 08/07/20 07:35 122 26 100 08/07/20 07:00 108 22 115/84 (94) 96 08/07/20 07:00 18 Mechanical Ventilator 100 08/07/20 07:00 18 Mechanical Ventilator 100 08/07/20 06:00 107 21 100/72 (81) 97 08/07/20 06:00 23 Mechanical Ventilator 100 08/07/20 05:13 26 Mechanical Ventilator 100 08/07/20 05:00 124 26 120/74 (89) 98 08/07/20 05:00 26 Mechanical Ventilator 100 08/07/20 04:45 124 28 131/86 (101) 96 08/07/20 04:45 28 Mechanical Ventilator 100 08/07/20 04:30 125 26 125/82 (96) 95 08/07/20 04:30 26 Mechanical Ventilator 100 08/07/20 04:15 125 25 115/71 (86) 96 08/07/20 04:15 25 Mechanical Ventilator 100 08/07/20 04:00 Mechanical Ventilator 08/07/20 04:00 26 Mechanical Ventilator 100 08/07/20 04:00 127 26 124/76 (92) 95 08/07/20 04:00 100 08/07/20 03:59 26 Mechanical Ventilator 100 08/07/20 03:18 121 29 100 08/07/20 03:06 123 08/07/20 03:00 126 25 137/75 (95) 95 08/07/20 02:59 25 Mechanical Ventilator 100 08/07/20 02:00 128 25 124/70 (88) 95 08/07/20 01:59 26 Mechanical Ventilator 100 08/07/20 01:00 124 25 127/76 (93) 96 08/07/20 00:59 26 Mechanical Ventilator 100 08/07/20 00:00 Mechanical Ventilator 08/07/20 00:00 99.8 123 23 114/79 (91) 94 08/06/20 23:59 22 Mechanical Ventilator 100 HEENT: Orally intubated, Mechanically Ventilated, Thin secretions ET Tube RHYTHM: SB LUNGS: bilateral rhonchi, other - right chest tube CARDIAC: regular rhythm, normal S1 and S2, bradycardia ABDOMEN: normal bowel sounds, non tender, soft EXTREMITIES: normal range of motion, non-tender Laboratory Tests Test 08/07/20 00:07 08/07/20 06:00 08/07/20 10:03 08/07/20 11:05 POC Whole Blood Glucose 246 MG/DL (74-106) H 197 MG/DL (74-106) H White Blood Count 13.7 K/UL (4.8-10.8) H Red Blood Count 3.87 M/UL (4.70-6.10) L Hemoglobin 11.7 G/DL (14.2-18.0) L Hematocrit 37.6 % (42.0-52.0) L Mean Corpuscular Volume 97 FL (80-99) Mean Corpuscular Hemoglobin 30.4 PG (27.0-31.0) Mean Corpuscular Hemoglobin Concent 31.3 G/DL (32.0-36.0) L Red Cell Distribution Width 14.3 % (11.6-14.8) Platelet Count 317 K/UL (150-450) Mean Platelet Volume 7.1 FL (6.5-10.1) Neutrophils (%) (Auto) % (45.0-75.0) Lymphocytes (%) (Auto) % (20.0-45.0) Monocytes (%) (Auto) % (1.0-10.0) Eosinophils (%) (Auto) % (0.0-3.0) Basophils (%) (Auto) % (0.0-2.0) Differential Total Cells Counted 100 Neutrophils % (Manual) 94 % (45-75) H Lymphocytes % (Manual) 4 % (20-45) L Monocytes % (Manual) 2 % (1-10) Eosinophils % (Manual) 0 % (0-3) Basophils % (Manual) 0 % (0-2) Band Neutrophils 0 % (0-8) Platelet Estimate Adequate Platelet Morphology Normal Hypochromasia 1+ Anisocytosis 1+ Sodium Level 146 MMOL/L (136-145) H Potassium Level 3.9 MMOL/L (3.5-5.1) Chloride Level 104 MMOL/L (98-107) Carbon Dioxide Level 44 MMOL/L (21-32) *H Anion Gap 0 mmol/L (5-15) L Blood Urea Nitrogen 22 mg/dL (7-18) H Creatinine 0.4 MG/DL (0.55-1.30) L Estimat Glomerular Filtration Rate > 60 mL/min (>60) Glucose Level 209 MG/DL (74-106) H Calcium Level 8.8 MG/DL (8.5-10.1) Total Bilirubin 0.5 MG/DL (0.2-1.0) Aspartate Amino Transf (AST/SGOT) 49 U/L (15-37) H Alanine Aminotransferase (ALT/SGPT) 39 U/L (12-78) Alkaline Phosphatase 78 U/L (46-116) Total Protein 5.6 G/DL (6.4-8.2) L Albumin 1.7 G/DL (3.4-5.0) L Globulin 3.9 g/dL Albumin/Globulin Ratio 0.4 (1.0-2.7) L Fibrinogen 663 mg/dL (200-400) H D-Dimer 2.84 mg/L FEU (0.00-0.49) H Assessment/Plan Assessment/Plan Covid 19 PNA s/p PTX with right chest tube Secondary sinus tachycardia K.pneumonia PNA Acute respiratory failure with severe Hypoxia Sinus bradycardia resolved Diabetes mellitus with hyperglycemia due to steroids Transaminitis Mod protein/calorie malnutrition Dehydration/hypernatremia CRITICAL & GUARDED Chest tube management Abx per ID Continuous cardiac monitoring Anticoagulation and steroid rx Titrate oxygen as able; prone. Vent settings adjusted by pulmonary Anti-viral rx Protein suppl Free water replacement Insulin cov'g by SS; levemir dose advanced further. Chuck Swain MD Aug 07, 2020 23:32
[2020-08-08] VITALS (39 sets, daily range): BP systolic 100–149; BP diastolic 68–95
--- NOTE | 2020-08-08 | NUR ---
NURSE NOTES: Patient sedated with 7.5 ETT at 25cm lipline on ventilator AC 26 TV 500 FiO2 100% PEEP 16. BP133/81 HR130 Sinus Tachy on monitor and afebrile with coolig blanket on. Left upper arm PICC running versed 14mg/hr asymptomatic. Blood sugar 184, 6 units novolog administered. Left nare NGT running Vital AF @20ml/hr. Biswas catheter draining yellow urine. Right side chest tube with no drainage at this time. Patient repositioned and oral care provided.
[2020-08-08] MEDS: Midazolam HCl 50mg/10ml vial 100 MG in NS 180 ML IV SCH ×3 (01:33→15:00)
--- NOTE | 2020-08-08 02:00 | NUR ---
NURSE NOTES: Patient sedated with 7.5 ETT at 25cm lipline on ventilator AC 26 TV 500 FiO2 100% PEEP 16. BP112/76 HR132 Sinus Tachy on monitor. Left upper arm PICC running versed 14mg/hr. Left nare NGT running Vital AF @20ml/hr. Biswas catheter draining yellow urine. Right side chest tube with no drainage at this time. Patient given CHG bath, repositioned and oral care provided.
[2020-08-08 03:21] LABS: HEMATOCRIT 38.9 % (42.0-52.0); HEMOGLOBIN 12.5 G/DL (14.2-18.0); MEAN CORPUSCULAR VOLUME 96 FL (80-99); PLATELET COUNT 359 K/UL (150-450); RED BLOOD COUNT 4.03 M/UL (4.70-6.10); RED CELL DISTRIBUTION WIDTH 15.8 % (11.6-14.8); WHITE BLOOD COUNT 20.1 K/UL (4.8-10.8)
[2020-08-08 03:36] LABS: ALANINE AMINOTRANSFERASE 39 U/L (12-78); ALBUMIN 1.8 G/DL (3.4-5.0); ALBUMIN/GLOBULIN RATIO 0.4 (1.0-2.7); ALKALINE PHOSPHATASE 82 U/L (46-116); ASPARTATE AMINO TRANSFERASE 58 U/L (15-37); BILIRUBIN,TOTAL 0.6 MG/DL (0.2-1.0); BLOOD UREA NITROGEN 24 mg/dL (7-18); CHLORIDE 106 MMOL/L (98-107); CREATININE 0.5 MG/DL (0.55-1.30); POTASSIUM 4.1 MMOL/L (3.5-5.1); SODIUM 147 MMOL/L (136-145)
[2020-08-08 03:52] LABS: CARBON DIOXIDE > 45 MMOL/L (21-32)
--- NOTE | 2020-08-08 04:00 | NUR ---
NURSE NOTES: Patient sedated with 7.5 ETT at 25cm lipline on ventilator AC 26 TV 500 FiO2 100% PEEP 16. BP131/89 HR143 Sinus Tachy on monitor temp 99.8F axillary. Left upper arm PICC running versed 14mg/hr. Left nare NGT running Vital AF @20ml/hr. Biswas catheter draining yellow urine. Right side chest tube secured to floor. Patient repositioned and oral care provided, and A&D ointment applied to lip scab.
[2020-08-08] MEDS: Vancomycin 1.5gm/300ml Premix IVPB SCH ×3 (05:27→21:48)
[2020-08-08] MEDS: NovoLOG Insulin Flexpen SUBQ SCH ×3 (05:37→18:48)
--- NOTE | 2020-08-08 06:00 | NUR ---
NURSE NOTES: Patient sedated with 7.5 ETT at 25cm lipline on ventilator AC 26 TV 500 FiO2 100% PEEP 16. BP118/80 HR128 Sinus Tachy on monitor. Left upper arm PICC running versed 14mg/hr. Left nare NGT running Vital AF @20ml/hr. Biswas catheter draining light yen urine. Right side chest tube secured to floor. Bilateral arm edema and oral sores with scabs noted on upper and lower lip. Patient repositioned and oral care provided.
--- NOTE | 2020-08-08 07:24 | NUR ---
NURSE HAND-OFF REPORT: Latest Vital Signs: Temperature 99.8 , Pulse 122 , B/P 103 /70 , Respiratory Rate 22 , O2 SAT 100 , Mechanical Ventilator, O2 Flow Rate . Vital Sign Comment: EKG Rhythm: Sinus Tachycardia Rhythm change?: N MD Notified?: Ildefonso Diana at bedside for re-intubation MD Response: Latest Bradley Fall Score: 50 Fall Risk: High Risk Safety Measures: Call light Within Reach, Bed Alarm Zone 1, Side Rails Side Rails x3, Bed position Low and Locked. Fall Precautions: Yellow Socks Yellow Gown Door Sign Patient Fall Education Report given to ELIER Martin.
--- NOTE | 2020-08-08 08:00 | NUR ---
NURSE NOTES: Pt was assessed after receiving change of shift report from Christina THAPA. Sedated -2 light sedation while on Versed drip at 14mg/hr. Responsive to voice/touch. Orally intubated, ETT 7.5 at 25cm/lipline with vent settings AC26, VT500, Peep 16, FIO2 100%, with O2Sat 90-94%. Bilateral upper extremity edema. ST on cardiac rehab nurse, HR 104. Temp 98F/rectal while maintained on cooling blanket to regulate body temperature. Right nare NGT with feeding Vital AF 1.2 infusing at 20ml/hour. Abdomen is large, round, soft, nontender to touch with hypoactive bowel sounds. Biswas catheter, 16F present, draining cloudy/dark yen urine with sedimentation. Left UA PICC line and left FA #20G, both patent/intact. Skin is intact. HOB at 30 degrees, bed locked, in lowest position, three side rails up. Will continue to monitor pt and follow plan of care per MD orders and protocol.
--- NOTE | 2020-08-08 08:15 | NUR ---
NURSE NOTES: New Versed bag was started to replace previous empty bag. Will continue same rate of 14mg/hr to maintain RASS score of -2 light sedation.
--- NOTE | 2020-08-08 08:46 | General Progress Note ---
Subjective ROS Limited/Unobtainable: No Constitutional: Reports: malaise, weakness HEENT: Reports: no symptoms Cardiovascular: Reports: no symptoms Respiratory: Reports: shortness of breath Gastrointestinal/Abdominal: Reports: no symptoms Genitourinary: Reports: no symptoms Neurologic/Psychiatric: Reports: no symptoms Endocrine: Reports: no symptoms Hematologic/Lymphatic: Reports: anemia Allergies: Coded Allergies: No Known Allergies (Unverified , 03/08/17) All Systems: reviewed and negative except above Subjective no change. remains orally intubated. bleeding from the mouth. sedated. Objective Last 24 Hour Vital Signs Date Time Temp Pulse Resp B/P (MAP) Pulse Ox O2 Delivery O2 Flow Rate FiO2 08/08/20 08:00 24 Mechanical Ventilator 100 08/08/20 07:00 122 22 103/70 (81) 100 08/08/20 07:00 22 Mechanical Ventilator 100 08/08/20 06:00 24 Mechanical Ventilator 100 08/08/20 06:00 128 26 118/80 (93) 100 08/08/20 05:00 28 Mechanical Ventilator 100 08/08/20 05:00 137 27 105/76 (86) 99 08/08/20 04:00 144 08/08/20 04:00 29 Mechanical Ventilator 100 08/08/20 04:00 Mechanical Ventilator 08/08/20 04:00 99.8 143 29 131/89 (103) 95 08/08/20 04:00 100 08/08/20 03:22 143 29 100 08/08/20 03:00 28 Mechanical Ventilator 100 08/08/20 03:00 142 28 128/81 (97) 96 08/08/20 02:00 26 Mechanical Ventilator 100 08/08/20 02:00 132 26 112/76 (88) 95 08/08/20 01:33 26 Mechanical Ventilator 100 08/08/20 01:00 140 27 149/85 (106) 94 08/08/20 01:00 27 Mechanical Ventilator 100 08/08/20 00:00 100 08/08/20 00:00 130 08/08/20 00:00 28 Mechanical Ventilator 100 08/08/20 00:00 98.8 130 28 134/84 (101) 94 08/08/20 00:00 Mechanical Ventilator 08/07/20 23:09 130 28 100 08/07/20 23:00 130 27 140/83 (102) 93 08/07/20 23:00 26 Mechanical Ventilator 100 08/07/20 22:00 125 25 133/81 (98) 95 08/07/20 22:00 25 Mechanical Ventilator 100 08/07/20 21:00 122 25 134/78 (96) 96 08/07/20 21:00 25 Mechanical Ventilator 100 08/07/20 20:00 Mechanical Ventilator 08/07/20 20:00 100 08/07/20 20:00 25 Mechanical Ventilator 100 08/07/20 20:00 131 08/07/20 20:00 98.0 133 23 150/85 (106) 96 08/07/20 19:30 136 27 100 08/07/20 19:00 25 Mechanical Ventilator 100 08/07/20 19:00 131 24 152/89 (110) 95 08/07/20 18:30 26 Mechanical Ventilator 100 08/07/20 18:00 27 Mechanical Ventilator 100 08/07/20 18:00 97.4 130 27 142/84 (103) 97 08/07/20 17:00 97.2 128 25 136/83 (100) 96 08/07/20 16:58 26 Mechanical Ventilator 100 08/07/20 16:00 126 08/07/20 16:00 100 08/07/20 16:00 Mechanical Ventilator 08/07/20 16:00 26 Mechanical Ventilator 100 08/07/20 16:00 97.1 128 26 133/79 (97) 96 08/07/20 15:38 125 26 100 08/07/20 15:00 127 27 138/77 (97) 96 08/07/20 15:00 27 Mechanical Ventilator 100 08/07/20 14:00 127 35 141/81 (101) 96 08/07/20 14:00 27 Mechanical Ventilator 100 08/07/20 13:29 25 Mechanical Ventilator 100 08/07/20 13:00 125 26 149/83 (105) 95 08/07/20 13:00 26 Mechanical Ventilator 100 08/07/20 12:00 124 08/07/20 12:00 124 24 123/77 (92) 95 08/07/20 12:00 100 08/07/20 12:00 25 Mechanical Ventilator 100 08/07/20 12:00 Mechanical Ventilator 08/07/20 11:50 118 26 100 08/07/20 11:00 122 26 148/84 (105) 96 08/07/20 11:00 26 Mechanical Ventilator 100 08/07/20 10:06 23 Mechanical Ventilator 100 08/07/20 10:00 24 Mechanical Ventilator 100 08/07/20 10:00 115 24 124/75 (91) 97 08/07/20 09:00 121 24 122/77 (92) 95 08/07/20 09:00 24 Mechanical Ventilator 100 08/07/20 09:00 24 Mechanical Ventilator 100 Intake and Output 0 08/07/20 08/08/20 19:00 07:00 Intake Total 915.334 ml 1155.324 ml Output Total 470 ml 445 ml Balance 445.334 ml 710.324 ml Free Water 60 ml IV Total 625.334 ml 825.324 ml Tube Feeding 240 ml 240 ml Other 50 ml 30 ml Output Urine Total 470 ml 415 ml Chest Tube Drainage Total 30 ml Laboratory Tests 08/07/20 10:03: POC Whole Blood Glucose 197H 08/07/20 11:05: Fibrinogen 663H, D-Dimer 2.84H 08/07/20 12:37: POC Whole Blood Glucose [Pending] 08/07/20 23:40: POC Whole Blood Glucose 184H 08/08/20 03:00: White Blood Count 20.1H, Red Blood Count 4.03L, Hemoglobin 12.5L, Hematocrit 38.9L, Mean Corpuscular Volume 96, Mean Corpuscular Hemoglobin 31.1H, Mean Corpuscular Hemoglobin Concent 32.2, Red Cell Distribution Width 15.8H, Platelet Count 359, Mean Platelet Volume 6.5, Neutrophils (%) (Auto) , Lymphocytes (%) (Auto) , Monocytes (%) (Auto) , Eosinophils (%) (Auto) , Basophils (%) (Auto) , Neutrophils % (Manual) [Pending], Lymphocytes % (Manual) [Pending], Platelet Estimate [Pending], Platelet Morphology [Pending], Sodium Level 147H, Potassium Level 4.1, Chloride Level 106, Carbon Dioxide Level > 45*H, Blood Urea Nitrogen 24H, Creatinine 0.5L, Estimat Glomerular Filtration Rate > 60, Glucose Level 143H, Calcium Level 9.0, Total Bilirubin 0.6, Aspartate Amino Transf (AST/SGOT) 58H, Alanine Aminotransferase (ALT/SGPT) 39, Alkaline Phosphatase 82, Total Protein 6.0L, Albumin 1.8L, Globulin 4.2, Albumin/Globulin Ratio 0.4L, Vancomycin Level Trough 13.7H 08/08/20 05:21: POC Whole Blood Glucose [Pending] Height (Feet): 5 Height (Inches): 6.00 Weight (Pounds): 209 Objective deferred Assessment/Plan Problem List: (1) Coronavirus infection ICD Codes: B34.2 - Coronavirus infection, unspecified SNOMED: 129423458 (2) Respiratory failure ICD Codes: J96.90 - Respiratory failure, unspecified, unspecified whether with hypoxia or hypercapnia SNOMED: 715388008 (3) Hypercapnia ICD Codes: R06.89 - Other abnormalities of breathing SNOMED: 45714696, 200538745 (4) Hypoxia ICD Codes: R09.02 - Hypoxemia SNOMED: 100636782 (5) Asthma ICD Codes: J45.909 - Unspecified asthma, uncomplicated SNOMED: 816734008, 359119086 (6) Pneumothorax ICD Codes: J93.9 - Pneumothorax, unspecified SNOMED: 37766932 Status: progressing, not improved Assessment/Plan: vent support wean fio2 as able resp care dc lovenox with bleeding from the mouth check duplex scd iv abx per id remains critical and guarded d/w brother- dnr but still wants all other aggressive rx attempted to transfer for higher level of care- no accepting hospitals so far Rolando Cherry MD Aug 08, 2020 08:46
[2020-08-08] MEDS ORDERED: Solu-MEDROL 40mg Inj IVP SCH (09:00)
--- NOTE | 2020-08-08 09:31 | NUR ---
RADIOLOGY: PCXR COMPLETED 0900HRS. NF
--- NOTE | 2020-08-08 10:00 | NUR ---
NURSE NOTES: Chest xray was done. AM meds were administered. Oral care was done. Pt has mouth wounds, scabs and bloody secretions from mouth. Dr Cherry and Dr Price are at the nurse's station. Order noted to place pt on [facility] transfer list for Echo at any hospital. No additional orders received. Spoke with pt's brother Dilshad over the phone, and gave brother correctional counselor/case manager's contact information regarding pt's transfer status.
[2020-08-08] MEDS: Docusate 100mg/10ml Liq NG SCH ×2 (10:08→21:00)
[2020-08-08] MEDS: Levemir Flexpen SUBQ SCH ×2 (10:08→21:00)
[2020-08-08] MEDS: Vitamin B Complex Tab NG SCH (10:08)
[2020-08-08] MEDS: Ascorbic Acid 500mg tab NG SCH ×2 (10:08→21:00)
[2020-08-08] MEDS: cefTRIAXone 1 GM in D5W 55 ML IVPB SCH (10:09)
--- NOTE | 2020-08-08 11:27 | Pulmonology Progress Note ---
Subjective ROS Limited/Unobtainable: Yes Gastrointestinal/Abdominal: Denies: nausea, vomiting, diarrhea Musculoskeletal: Denies: pain Allergies: Coded Allergies: No Known Allergies (Unverified , 03/08/17) All Systems: reviewed and negative except above Subjective ct in place small ptx on high oxygen and sats >90 on vent full code Objective Last 24 Hour Vital Signs Date Time Temp Pulse Resp B/P (MAP) Pulse Ox O2 Delivery O2 Flow Rate FiO2 08/08/20 11:00 27 Mechanical Ventilator 100 08/08/20 11:00 118 27 108/69 (82) 08/08/20 10:30 121 24 106/79 (88) 08/08/20 10:09 24 Mechanical Ventilator 100 08/08/20 10:00 26 Mechanical Ventilator 100 08/08/20 10:00 123 29 119/79 (92) 08/08/20 09:30 128 28 116/88 (97) 08/08/20 09:00 26 Mechanical Ventilator 100 08/08/20 09:00 126 36 103/78 (86) 08/08/20 08:30 124 30 100/78 (85) 08/08/20 08:15 24 Mechanical Ventilator 100 08/08/20 08:00 97.9 126 20 110/71 (84) 08/08/20 08:00 100 08/08/20 08:00 24 Mechanical Ventilator 100 08/08/20 08:00 117 08/08/20 08:00 Mechanical Ventilator 08/08/20 07:00 122 22 103/70 (81) 100 08/08/20 07:00 22 Mechanical Ventilator 100 08/08/20 06:00 24 Mechanical Ventilator 100 08/08/20 06:00 128 26 118/80 (93) 100 08/08/20 05:00 28 Mechanical Ventilator 100 08/08/20 05:00 137 27 105/76 (86) 99 08/08/20 04:00 144 08/08/20 04:00 29 Mechanical Ventilator 100 08/08/20 04:00 Mechanical Ventilator 08/08/20 04:00 99.8 143 29 131/89 (103) 95 08/08/20 04:00 100 08/08/20 03:22 143 29 100 08/08/20 03:00 28 Mechanical Ventilator 100 08/08/20 03:00 142 28 128/81 (97) 96 08/08/20 02:00 26 Mechanical Ventilator 100 08/08/20 02:00 132 26 112/76 (88) 95 08/08/20 01:33 26 Mechanical Ventilator 100 08/08/20 01:00 140 27 149/85 (106) 94 08/08/20 01:00 27 Mechanical Ventilator 100 08/08/20 00:00 100 08/08/20 00:00 130 08/08/20 00:00 28 Mechanical Ventilator 100 08/08/20 00:00 98.8 130 28 134/84 (101) 94 08/08/20 00:00 Mechanical Ventilator 08/07/20 23:09 130 28 100 08/07/20 23:00 130 27 140/83 (102) 93 08/07/20 23:00 26 Mechanical Ventilator 100 08/07/20 22:00 125 25 133/81 (98) 95 08/07/20 22:00 25 Mechanical Ventilator 100 08/07/20 21:00 122 25 134/78 (96) 96 08/07/20 21:00 25 Mechanical Ventilator 100 08/07/20 20:00 Mechanical Ventilator 08/07/20 20:00 100 08/07/20 20:00 25 Mechanical Ventilator 100 08/07/20 20:00 131 08/07/20 20:00 98.0 133 23 150/85 (106) 96 08/07/20 19:30 136 27 100 08/07/20 19:00 25 Mechanical Ventilator 100 08/07/20 19:00 131 24 152/89 (110) 95 08/07/20 18:30 26 Mechanical Ventilator 100 08/07/20 18:00 27 Mechanical Ventilator 100 08/07/20 18:00 97.4 130 27 142/84 (103) 97 08/07/20 17:00 97.2 128 25 136/83 (100) 96 08/07/20 16:58 26 Mechanical Ventilator 100 08/07/20 16:00 126 08/07/20 16:00 100 08/07/20 16:00 Mechanical Ventilator 08/07/20 16:00 26 Mechanical Ventilator 100 08/07/20 16:00 97.1 128 26 133/79 (97) 96 08/07/20 15:38 125 26 100 08/07/20 15:00 127 27 138/77 (97) 96 08/07/20 15:00 27 Mechanical Ventilator 100 08/07/20 14:00 127 35 141/81 (101) 96 08/07/20 14:00 27 Mechanical Ventilator 100 08/07/20 13:29 25 Mechanical Ventilator 100 08/07/20 13:00 125 26 149/83 (105) 95 08/07/20 13:00 26 Mechanical Ventilator 100 08/07/20 12:00 124 08/07/20 12:00 124 24 123/77 (92) 95 08/07/20 12:00 100 08/07/20 12:00 25 Mechanical Ventilator 100 08/07/20 12:00 Mechanical Ventilator 08/07/20 11:50 118 26 100 Intake and Output 08/07/20 08/08/20 19:00 07:00 Intake Total 915.334 ml 1155.324 ml Output Total 470 ml 445 ml Balance 445.334 ml 710.324 ml Free Water 60 ml IV Total 625.334 ml 825.324 ml Tube Feeding 240 ml 240 ml Other 50 ml 30 ml Output Urine Total 470 ml 415 ml Chest Tube Drainage Total 30 ml Objective deferred due to COVID Microbiology Date/Time Source Procedure Growth Status 08/07/20 04:00 Sputum Gram Stain Pending Resulted 08/07/20 04:00 Sputum Culture - Preliminary Gram Negative Tobi Resulted Laboratory Tests 08/07/20 12:37: POC Whole Blood Glucose [Pending] 08/07/20 23:40: POC Whole Blood Glucose 184H 08/08/20 03:00: White Blood Count 20.1H, Red Blood Count 4.03L, Hemoglobin 12.5L, Hematocrit 38.9L, Mean Corpuscular Volume 96, Mean Corpuscular Hemoglobin 31.1H, Mean Corpuscular Hemoglobin Concent 32.2, Red Cell Distribution Width 15.8H, Platelet Count 359, Mean Platelet Volume 6.5, Neutrophils (%) (Auto) , Lymphocytes (%) (Auto) , Monocytes (%) (Auto) , Eosinophils (%) (Auto) , Basophils (%) (Auto) , Differential Total Cells Counted 100, Neutrophils % (Manual) 83H, Lymphocytes % (Manual) 6L, Monocytes % (Manual) 6, Eosinophils % (Manual) 0, Basophils % (Manual) 0, Band Neutrophils 5, Platelet Estimate Adequate, Platelet Morphology Normal, Hypochromasia 1+, Anisocytosis 1+, Sodium Level 147H, Potassium Level 4.1, Chloride Level 106, Carbon Dioxide Level > 45*H, Blood Urea Nitrogen 24H, Creatinine 0.5L, Estimat Glomerular Filtration Rate > 60, Glucose Level 143H, Calcium Level 9.0, Total Bilirubin 0.6, Aspartate Amino Transf (AST/SGOT) 58H, Alanine Aminotransferase (ALT/SGPT) 39, Alkaline Phosphatase 82, Total Protein 6.0L, Albumin 1.8L, Globulin 4.2, Albumin/Globulin Ratio 0.4L, Vancomycin Level Trough 13.7H 08/08/20 05:21: POC Whole Blood Glucose [Pending] Current Medications Medications (Trade) Dose Ordered Sig/Milagro Route PRN Reason Start Time Stop Time Status Last Admin Dose Admin Acetaminophen (Tylenol) 650 mg Q4H PRN RECTAL Mild Pain (Pain Scale 1-3) 07/24/20 18:15 08/23/20 18:14 07/25/20 11:49 Acetaminophen (Tylenol) 650 mg Q6H PRN NG Temp >100.5 07/26/20 08:30 08/25/20 08:29 08/03/20 09:36 Acetaminophen (Tylenol) 650 mg Q6H PRN NG Mild Pain (Pain Scale 1-3) 07/26/20 08:30 08/25/20 08:29 08/04/20 17:26 Albuterol/ Ipratropium (Combivent Respimat) 2 puff Q2H PRN INH Shortness of Breath 07/09/20 21:45 08/08/20 21:44 07/19/20 09:17 Ascorbic Acid (Vitamin C) 500 mg EVERY 12 HOURS NG 07/26/20 21:00 08/10/20 08:59 08/08/20 10:08 Ceftriaxone Sodium 1 gm/ Dextrose 55 ml @ 110 mls/hr Q24H IVPB 08/07/20 10:30 08/14/20 10:29 08/08/20 10:09 Chlorhexidine Gluconate (Marycarmen-Hex 2%) 1 applic DAILY@2000 TOPIC 07/20/20 20:00 10/18/20 19:59 08/07/20 19:19 Dextrose (Dextrose 50%) 25 ml Q30M PRN IV Hypoglycemia 07/23/20 13:15 10/21/20 13:14 Dextrose (Dextrose 50%) 50 ml Q30M PRN IV Hypoglycemia 07/23/20 13:15 10/21/20 13:14 Dextrose/Sodium Chloride 1,000 ml @ 60 mls/hr [id number] PRN IV WHILE PRONING ONLY 07/24/20 17:45 08/23/20 17:44 07/24/20 18:01 Docusate Sodium (Colace) 100 mg EVERY 12 HOURS NG 07/27/20 21:00 08/26/20 20:59 08/08/20 10:08 Famotidine (Pepcid I.v.) 20 mg Q12HR IVP 08/04/20 21:00 09/03/20 20:59 08/08/20 10:07 Fluconazole (Diflucan) 100 mg Q24H NG 08/08/20 20:00 08/15/20 19:59 Insulin Aspart (NovoLOG) EVERY 6 HOURS SUBQ 07/28/20 00:00 10/21/20 15:59 08/08/20 05:37 Insulin Detemir (Levemir) 26 units EVERY 12 HOURS SUBQ 07/26/20 09:00 10/20/20 08:59 08/08/20 10:08 Methylprednisolone Sodium Succinate (Solu-MEDROL) 40 mg DAILY IVP 08/08/20 09:00 10/23/20 12:29 08/08/20 10:08 Midazolam HCl 100 mg/Sodium Chloride 200 ml @ 0 mls/hr Q24H IV 08/07/20 17:00 08/09/20 16:59 08/08/20 08:15 Ondansetron HCl (Zofran) 4 mg Q6H PRN IVP Nausea & Vomiting 07/09/20 21:45 08/08/20 21:44 Promethazine HCl/ Codeine (Phenergan with Codeine) 5 ml Q4H PRN ORAL For Cough 07/11/20 15:15 08/10/20 15:14 07/26/20 18:26 Vancomycin HCl 300 ml @ 150 mls/hr Q8H IVPB 08/08/20 06:00 08/13/20 05:59 08/08/20 05:27 Vancomycin HCl (Vanco pharmacy to dose) 1 ea DAILY PRN MISC Per rx protocol 07/26/20 09:00 08/25/20 08:59 Vitamin B Complex (Vitamin B Complex) 1 tab DAILY NG 07/24/20 09:00 10/09/20 08:59 08/08/20 10:08 Vitamin D (Vitamin D) 1,000 unit BEDTIME GT 07/27/20 21:00 08/13/20 09:29 08/07/20 20:20 Assessment/Plan Assessment/Plan acute hypoxemic respiratory failure COVID pneumonia Asthma elevated liver enzymes DNR ARDS with fibrosing phase pneumothorax elevated TG PLAN borderline oxygen saturation/ not improved overall CT per surgery needs trach for chronic vent management---reduce PEEP as able monitor ABG respiratory care ID noted DVT prophylaxis prognosis poor overall monitor respiratory status for change doubt will see improvement in oxygen needs medications/laboratory data/nursing notes/ICU care reviewed in detail note reviewed and edited care discussed with RN and RT ICU time spent >40 minutes Elfego Price MD Aug 08, 2020 11:27
--- NOTE | 2020-08-08 12:26 | Infectious Diseases Prog Note ---
Assessment/Plan Assessment/Plan antibiotics : vancomycin, ceftriaxone, fluconazole A 1. COVID-19 pneumonia on 100 % Fi O2 of oxygen with O2 saturation 95 %. s/p ivermectin x 2 2. History of asthma. 3. Elevated liver function tests improving 4. klebsiella pneumonia 5. thrush P 1. continue ceftriaxone, iv vancomycin 2. Continue solumedrol taper doses 3. fluconazole started 4. Continue isolation. Subjective ROS Limited/Unobtainable: Yes Allergies: Coded Allergies: No Known Allergies (Unverified , 03/08/17) Objective Last 24 Hour Vital Signs Date Time Temp Pulse Resp B/P (MAP) Pulse Ox O2 Delivery O2 Flow Rate FiO2 08/08/20 11:00 27 Mechanical Ventilator 100 08/08/20 11:00 118 27 108/69 (82) 08/08/20 10:30 121 24 106/79 (88) 08/08/20 10:09 24 Mechanical Ventilator 100 08/08/20 10:00 26 Mechanical Ventilator 100 08/08/20 10:00 123 29 119/79 (92) 08/08/20 09:30 128 28 116/88 (97) 08/08/20 09:00 26 Mechanical Ventilator 100 08/08/20 09:00 126 36 103/78 (86) 08/08/20 08:30 124 30 100/78 (85) 08/08/20 08:15 24 Mechanical Ventilator 100 08/08/20 08:00 97.9 126 20 110/71 (84) 08/08/20 08:00 100 08/08/20 08:00 24 Mechanical Ventilator 100 08/08/20 08:00 117 08/08/20 08:00 Mechanical Ventilator 08/08/20 07:00 122 22 103/70 (81) 100 08/08/20 07:00 22 Mechanical Ventilator 100 08/08/20 06:00 24 Mechanical Ventilator 100 08/08/20 06:00 128 26 118/80 (93) 100 08/08/20 05:00 28 Mechanical Ventilator 100 08/08/20 05:00 137 27 105/76 (86) 99 08/08/20 04:00 144 08/08/20 04:00 29 Mechanical Ventilator 100 08/08/20 04:00 Mechanical Ventilator 08/08/20 04:00 99.8 143 29 131/89 (103) 95 08/08/20 04:00 100 08/08/20 03:22 143 29 100 08/08/20 03:00 28 Mechanical Ventilator 100 08/08/20 03:00 142 28 128/81 (97) 96 08/08/20 02:00 26 Mechanical Ventilator 100 08/08/20 02:00 132 26 112/76 (88) 95 08/08/20 01:33 26 Mechanical Ventilator 100 08/08/20 01:00 140 27 149/85 (106) 94 08/08/20 01:00 27 Mechanical Ventilator 100 08/08/20 00:00 100 08/08/20 00:00 130 08/08/20 00:00 28 Mechanical Ventilator 100 08/08/20 00:00 98.8 130 28 134/84 (101) 94 08/08/20 00:00 Mechanical Ventilator 08/07/20 23:09 130 28 100 08/07/20 23:00 130 27 140/83 (102) 93 08/07/20 23:00 26 Mechanical Ventilator 100 08/07/20 22:00 125 25 133/81 (98) 95 08/07/20 22:00 25 Mechanical Ventilator 100 08/07/20 21:00 122 25 134/78 (96) 96 08/07/20 21:00 25 Mechanical Ventilator 100 08/07/20 20:00 Mechanical Ventilator 08/07/20 20:00 100 08/07/20 20:00 25 Mechanical Ventilator 100 08/07/20 20:00 131 08/07/20 20:00 98.0 133 23 150/85 (106) 96 08/07/20 19:30 136 27 100 08/07/20 19:00 25 Mechanical Ventilator 100 08/07/20 19:00 131 24 152/89 (110) 95 08/07/20 18:30 26 Mechanical Ventilator 100 08/07/20 18:00 27 Mechanical Ventilator 100 08/07/20 18:00 97.4 130 27 142/84 (103) 97 08/07/20 17:00 97.2 128 25 136/83 (100) 96 08/07/20 16:58 26 Mechanical Ventilator 100 08/07/20 16:00 126 08/07/20 16:00 100 08/07/20 16:00 Mechanical Ventilator 08/07/20 16:00 26 Mechanical Ventilator 100 08/07/20 16:00 97.1 128 26 133/79 (97) 96 08/07/20 15:38 125 26 100 08/07/20 15:00 127 27 138/77 (97) 96 08/07/20 15:00 27 Mechanical Ventilator 100 08/07/20 14:00 127 35 141/81 (101) 96 08/07/20 14:00 27 Mechanical Ventilator 100 08/07/20 13:29 25 Mechanical Ventilator 100 08/07/20 13:00 125 26 149/83 (105) 95 08/07/20 13:00 26 Mechanical Ventilator 100 Height (Feet): 5 Height (Inches): 6.00 Weight (Pounds): 209 HEENT: other - intubated Microbiology Date/Time Source Procedure Growth Status 08/07/20 04:00 Sputum Gram Stain Pending Resulted 08/07/20 04:00 Sputum Culture - Preliminary Gram Negative Tobi Resulted Laboratory Tests Test 08/07/20 12:37 08/07/20 23:40 08/08/20 03:00 08/08/20 05:21 POC Whole Blood Glucose Pending 184 MG/DL (74-106) H Pending White Blood Count 20.1 K/UL (4.8-10.8) H Red Blood Count 4.03 M/UL (4.70-6.10) L Hemoglobin 12.5 G/DL (14.2-18.0) L Hematocrit 38.9 % (42.0-52.0) L Mean Corpuscular Volume 96 FL (80-99) Mean Corpuscular Hemoglobin 31.1 PG (27.0-31.0) H Mean Corpuscular Hemoglobin Concent 32.2 G/DL (32.0-36.0) Red Cell Distribution Width 15.8 % (11.6-14.8) H Platelet Count 359 K/UL (150-450) Mean Platelet Volume 6.5 FL (6.5-10.1) Neutrophils (%) (Auto) % (45.0-75.0) Lymphocytes (%) (Auto) % (20.0-45.0) Monocytes (%) (Auto) % (1.0-10.0) Eosinophils (%) (Auto) % (0.0-3.0) Basophils (%) (Auto) % (0.0-2.0) Differential Total Cells Counted 100 Neutrophils % (Manual) 83 % (45-75) H Lymphocytes % (Manual) 6 % (20-45) L Monocytes % (Manual) 6 % (1-10) Eosinophils % (Manual) 0 % (0-3) Basophils % (Manual) 0 % (0-2) Band Neutrophils 5 % (0-8) Platelet Estimate Adequate Platelet Morphology Normal Hypochromasia 1+ Anisocytosis 1+ Sodium Level 147 MMOL/L (136-145) H Potassium Level 4.1 MMOL/L (3.5-5.1) Chloride Level 106 MMOL/L (98-107) Carbon Dioxide Level > 45 MMOL/L (21-32) *H Blood Urea Nitrogen 24 mg/dL (7-18) H Creatinine 0.5 MG/DL (0.55-1.30) L Estimat Glomerular Filtration Rate > 60 mL/min (>60) Glucose Level 143 MG/DL (74-106) H Calcium Level 9.0 MG/DL (8.5-10.1) Total Bilirubin 0.6 MG/DL (0.2-1.0) Aspartate Amino Transf (AST/SGOT) 58 U/L (15-37) H Alanine Aminotransferase (ALT/SGPT) 39 U/L (12-78) Alkaline Phosphatase 82 U/L (46-116) Total Protein 6.0 G/DL (6.4-8.2) L Albumin 1.8 G/DL (3.4-5.0) L Globulin 4.2 g/dL Albumin/Globulin Ratio 0.4 (1.0-2.7) L Vancomycin Level Trough 13.7 ug/mL (5.0-12.0) H Current Medications Medications (Trade) Dose Ordered Sig/Milagro Route PRN Reason Start Time Stop Time Status Last Admin Dose Admin Acetaminophen (Tylenol) 650 mg Q4H PRN RECTAL Mild Pain (Pain Scale 1-3) 07/24/20 18:15 08/23/20 18:14 07/25/20 11:49 Acetaminophen (Tylenol) 650 mg Q6H PRN NG Temp >100.5 07/26/20 08:30 08/25/20 08:29 08/03/20 09:36 Acetaminophen (Tylenol) 650 mg Q6H PRN NG Mild Pain (Pain Scale 1-3) 07/26/20 08:30 08/25/20 08:29 08/04/20 17:26 Albuterol/ Ipratropium (Combivent Respimat) 2 puff Q2H PRN INH Shortness of Breath 07/09/20 21:45 08/08/20 21:44 07/19/20 09:17 Ascorbic Acid (Vitamin C) 500 mg EVERY 12 HOURS NG 07/26/20 21:00 08/10/20 08:59 08/08/20 10:08 Ceftriaxone Sodium 1 gm/ Dextrose 55 ml @ 110 mls/hr Q24H IVPB 08/07/20 10:30 08/14/20 10:29 08/08/20 10:09 Chlorhexidine Gluconate (Marycarmen-Hex 2%) 1 applic DAILY@2000 TOPIC 07/20/20 20:00 10/18/20 19:59 08/07/20 19:19 Dextrose (Dextrose 50%) 25 ml Q30M PRN IV Hypoglycemia 07/23/20 13:15 10/21/20 13:14 Dextrose (Dextrose 50%) 50 ml Q30M PRN IV Hypoglycemia 07/23/20 13:15 10/21/20 13:14 Dextrose/Sodium Chloride 1,000 ml @ 60 mls/hr [id number] PRN IV WHILE PRONING ONLY 07/24/20 17:45 08/23/20 17:44 07/24/20 18:01 Docusate Sodium (Colace) 100 mg EVERY 12 HOURS NG 07/27/20 21:00 08/26/20 20:59 08/08/20 10:08 Famotidine (Pepcid I.v.) 20 mg Q12HR IVP 08/04/20 21:00 09/03/20 20:59 08/08/20 10:07 Fluconazole (Diflucan) 100 mg Q24H NG 08/08/20 20:00 08/15/20 19:59 Insulin Aspart (NovoLOG) EVERY 6 HOURS SUBQ 07/28/20 00:00 10/21/20 15:59 08/08/20 05:37 Insulin Detemir (Levemir) 26 units EVERY 12 HOURS SUBQ 07/26/20 09:00 10/20/20 08:59 08/08/20 10:08 Methylprednisolone Sodium Succinate (Solu-MEDROL) 40 mg DAILY IVP 08/08/20 09:00 10/23/20 12:29 08/08/20 10:08 Midazolam HCl 100 mg/Sodium Chloride 200 ml @ 0 mls/hr Q24H IV 08/07/20 17:00 08/09/20 16:59 08/08/20 08:15 Ondansetron HCl (Zofran) 4 mg Q6H PRN IVP Nausea & Vomiting 07/09/20 21:45 08/08/20 21:44 Promethazine HCl/ Codeine (Phenergan with Codeine) 5 ml Q4H PRN ORAL For Cough 07/11/20 15:15 08/10/20 15:14 07/26/20 18:26 Vancomycin HCl 300 ml @ 150 mls/hr Q8H IVPB 08/08/20 06:00 08/13/20 05:59 08/08/20 05:27 Vancomycin HCl (Vanco pharmacy to dose) 1 ea DAILY PRN MISC Per rx protocol 07/26/20 09:00 08/25/20 08:59 Vitamin B Complex (Vitamin B Complex) 1 tab DAILY NG 07/24/20 09:00 10/09/20 08:59 08/08/20 10:08 Vitamin D (Vitamin D) 1,000 unit BEDTIME GT 07/27/20 21:00 08/13/20 09:29 08/07/20 20:20 Jose Alberto MD Aug 08, 2020 12:26
--- NOTE | 2020-08-08 13:31 | NUR ---
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
--- NOTE | 2020-08-08 13:42 | Diagnostic Imaging Report ---
Indication: Tortuous of breath Technique: One view of the chest Comparison: 08/06/2020 Findings: Decreased and nearly resolved right pneumothorax, with only a small sliver currently visible near the apex. Right chest tube remains in place. There is a small amount of pneumomediastinum along the left a heart border, in retrospect probably evident previously. Tube and line positions are unchanged. Right supraclavicular subcutaneous emphysema is unchanged. Bilateral infiltrates are unchanged Impression: Decreased, nearly resolved, right pneumothorax Otherwise little supervisor records change 2 days
--- NOTE | 2020-08-08 15:00 | NUR ---
NURSE NOTES: New Versed bag was started to replace previous empty bag. Will continue same rate of 14mg/hr to maintain RASS score of -2 light sedation.
--- NOTE | 2020-08-08 16:00 | NUR ---
NURSE NOTES: Pt was cleaned, gown/bed linens were changed. Repositioned on the cooling blanket. Continues to have bloody oral secretions; oral care was given. Remains ST on registered nurse cardiac telemetry, 106-116bpm. Maintained on the cooling blanket.
--- NOTE | 2020-08-08 19:28 | Surgery Progress Note ---
Surgery Progress Note Subjective Procedure Performed right chest tube insertion Additional Comments remains unstable on vent support high peep chest tube stable air leak noted Objective Last 24 Hour Vital Signs Date Time Temp Pulse Resp B/P (MAP) Pulse Ox O2 Delivery O2 Flow Rate FiO2 08/08/20 19:00 107 22 106/68 (81) 96 08/08/20 18:30 106 22 108/74 (85) 98 08/08/20 18:00 113 23 122/83 (96) 96 08/08/20 17:30 117 25 119/86 (97) 98 08/08/20 17:00 116 23 119/77 (91) 96 08/08/20 17:00 26 Mechanical Ventilator 100 08/08/20 16:35 120 24 121/83 (96) 96 08/08/20 16:30 123 25 124/84 (97) 97 08/08/20 16:00 124 08/08/20 16:00 26 Mechanical Ventilator 100 08/08/20 16:00 97.9 120 23 122/82 (95) 96 08/08/20 16:00 Mechanical Ventilator 08/08/20 16:00 100 08/08/20 15:30 123 18 120/84 (96) 90 08/08/20 15:10 129 29 100 08/08/20 15:00 26 Mechanical Ventilator 100 08/08/20 15:00 26 Mechanical Ventilator 100 08/08/20 15:00 132 28 141/95 (110) 96 08/08/20 14:30 132 25 124/87 (99) 97 08/08/20 14:00 128 27 132/88 (103) 96 08/08/20 14:00 26 Mechanical Ventilator 100 08/08/20 13:30 129 28 134/82 (99) 96 08/08/20 13:00 128 27 131/94 (106) 97 08/08/20 13:00 26 Mechanical Ventilator 100 08/08/20 12:30 124 30 119/77 (91) 99 08/08/20 12:00 Mechanical Ventilator 08/08/20 12:00 126 08/08/20 12:00 100 08/08/20 12:00 26 Mechanical Ventilator 100 08/08/20 12:00 98.0 124 31 118/75 (89) 90 08/08/20 11:10 119 29 100 08/08/20 11:00 27 Mechanical Ventilator 100 08/08/20 11:00 118 27 108/69 (82) 08/08/20 10:30 121 24 106/79 (88) 08/08/20 10:09 24 Mechanical Ventilator 100 08/08/20 10:00 26 Mechanical Ventilator 100 08/08/20 10:00 123 29 119/79 (92) 08/08/20 09:30 128 28 116/88 (97) 08/08/20 09:00 26 Mechanical Ventilator 100 08/08/20 09:00 126 36 103/78 (86) 08/08/20 08:30 124 30 100/78 (85) 08/08/20 08:15 24 Mechanical Ventilator 100 08/08/20 08:00 97.9 126 20 110/71 (84) 08/08/20 08:00 100 08/08/20 08:00 24 Mechanical Ventilator 100 08/08/20 08:00 117 08/08/20 08:00 Mechanical Ventilator 08/08/20 07:20 123 27 100 08/08/20 07:00 122 22 103/70 (81) 100 08/08/20 07:00 22 Mechanical Ventilator 100 08/08/20 06:00 24 Mechanical Ventilator 100 08/08/20 06:00 128 26 118/80 (93) 100 08/08/20 05:00 28 Mechanical Ventilator 100 08/08/20 05:00 137 27 105/76 (86) 99 08/08/20 04:00 144 08/08/20 04:00 29 Mechanical Ventilator 100 08/08/20 04:00 Mechanical Ventilator 08/08/20 04:00 99.8 143 29 131/89 (103) 95 08/08/20 04:00 100 08/08/20 03:22 143 29 100 08/08/20 03:00 28 Mechanical Ventilator 100 08/08/20 03:00 142 28 128/81 (97) 96 08/08/20 02:00 26 Mechanical Ventilator 100 08/08/20 02:00 132 26 112/76 (88) 95 08/08/20 01:33 26 Mechanical Ventilator 100 08/08/20 01:00 140 27 149/85 (106) 94 08/08/20 01:00 27 Mechanical Ventilator 100 08/08/20 00:00 100 08/08/20 00:00 130 08/08/20 00:00 28 Mechanical Ventilator 100 08/08/20 00:00 98.8 130 28 134/84 (101) 94 08/08/20 00:00 Mechanical Ventilator 08/07/20 23:09 130 28 100 08/07/20 23:00 130 27 140/83 (102) 93 08/07/20 23:00 26 Mechanical Ventilator 100 08/07/20 22:00 125 25 133/81 (98) 95 08/07/20 22:00 25 Mechanical Ventilator 100 08/07/20 21:00 122 25 134/78 (96) 96 08/07/20 21:00 25 Mechanical Ventilator 100 08/07/20 20:00 Mechanical Ventilator 08/07/20 20:00 100 08/07/20 20:00 25 Mechanical Ventilator 100 08/07/20 20:00 131 08/07/20 20:00 98.0 133 23 150/85 (106) 96 08/07/20 19:30 136 27 100 I&O Intake and Output 08/07/20 08/08/20 19:00 07:00 Intake Total 915.334 ml 1155.324 ml Output Total 470 ml 445 ml Balance 445.334 ml 710.324 ml Free Water 60 ml IV Total 625.334 ml 825.324 ml Tube Feeding 240 ml 240 ml Other 50 ml 30 ml Output Urine Total 470 ml 415 ml Chest Tube Drainage Total 30 ml Dressing: saturated Cardiovascular: RSR Respiratory: decreased breath sounds Abdomen: non-tender, present bowel sounds, non-distended Extremities: no tenderness, no cyanosis Laboratory Tests Test 08/07/20 23:40 08/08/20 03:00 08/08/20 05:21 POC Whole Blood Glucose 184 MG/DL (74-106) H Pending White Blood Count 20.1 K/UL (4.8-10.8) H Red Blood Count 4.03 M/UL (4.70-6.10) L Hemoglobin 12.5 G/DL (14.2-18.0) L Hematocrit 38.9 % (42.0-52.0) L Mean Corpuscular Volume 96 FL (80-99) Mean Corpuscular Hemoglobin 31.1 PG (27.0-31.0) H Mean Corpuscular Hemoglobin Concent 32.2 G/DL (32.0-36.0) Red Cell Distribution Width 15.8 % (11.6-14.8) H Platelet Count 359 K/UL (150-450) Mean Platelet Volume 6.5 FL (6.5-10.1) Neutrophils (%) (Auto) % (45.0-75.0) Lymphocytes (%) (Auto) % (20.0-45.0) Monocytes (%) (Auto) % (1.0-10.0) Eosinophils (%) (Auto) % (0.0-3.0) Basophils (%) (Auto) % (0.0-2.0) Differential Total Cells Counted 100 Neutrophils % (Manual) 83 % (45-75) H Lymphocytes % (Manual) 6 % (20-45) L Monocytes % (Manual) 6 % (1-10) Eosinophils % (Manual) 0 % (0-3) Basophils % (Manual) 0 % (0-2) Band Neutrophils 5 % (0-8) Platelet Estimate Adequate Platelet Morphology Normal Hypochromasia 1+ Anisocytosis 1+ Sodium Level 147 MMOL/L (136-145) H Potassium Level 4.1 MMOL/L (3.5-5.1) Chloride Level 106 MMOL/L (98-107) Carbon Dioxide Level > 45 MMOL/L (21-32) *H Blood Urea Nitrogen 24 mg/dL (7-18) H Creatinine 0.5 MG/DL (0.55-1.30) L Estimat Glomerular Filtration Rate > 60 mL/min (>60) Glucose Level 143 MG/DL (74-106) H Calcium Level 9.0 MG/DL (8.5-10.1) Total Bilirubin 0.6 MG/DL (0.2-1.0) Aspartate Amino Transf (AST/SGOT) 58 U/L (15-37) H Alanine Aminotransferase (ALT/SGPT) 39 U/L (12-78) Alkaline Phosphatase 82 U/L (46-116) Total Protein 6.0 G/DL (6.4-8.2) L Albumin 1.8 G/DL (3.4-5.0) L Globulin 4.2 g/dL Albumin/Globulin Ratio 0.4 (1.0-2.7) L Vancomycin Level Trough 13.7 ug/mL (5.0-12.0) H Plan Problems: (1) Pneumothorax Assessment & Plan: 30M covid on vent peep 16 fi02 100 right ptx s/p right chest tube ett complication replaced 07/01 chest tube vac replaced this AM as well given malfunction high risk low tv cxr noted ill appearing tube and lines checked will need to monitor closely unable to wean vent at this time cont current care plan (2) Respiratory failure (3) Coronavirus infection (4) Diabetes (5) Hypercapnia (6) Hypoxia (7) Asthma (8) HTN (hypertension) (9) Obesity (BMI 30-39.9) (10) Acute respiratory distress syndrome (ARDS) due to 2019-nCoV (11) Acute hypoxemic respiratory failure due to COVID-19 (12) Bradycardia (13) Laceration Mulugeta Butler Aug 08, 2020 19:28
--- NOTE | 2020-08-08 19:30 | NUR ---
NURSE HAND-OFF REPORT: Latest Vital Signs: Temperature 97.9 , Pulse 107 , B/P 106 /68 , Respiratory Rate 26 , O2 SAT 96 , Mechanical Ventilator ETT 7.5 at 25cm/lipline with vent settings AC26, VT500, Peep 16, FIO2 100%. Vital Sign Comment: Sedated RASS score of -2 light sedation while on Versed drip 14mg/hr. EKG Rhythm: Sinus Tachycardia Rhythm change?: N MD Notified?: Ildefonso Diana at bedside for re-intubation MD Response: Latest Bradley Fall Score: 50 Fall Risk: High Risk Safety Measures: Call light Within Reach, Bed Alarm Zone 1, Side Rails Side Rails x3, Bed position Low and Locked. Fall Precautions: Yellow Socks Yellow Gown Door Sign Patient Fall Education Report given to Jose THAPA. Endorsed plan of care.
[2020-08-08] MEDS: Dyna-Hex 2% Top Sol 2oz TOPIC SCH (20:00)
[2020-08-08] MEDS: Fluconazole 100mg tab NG SCH (20:00)
--- NOTE | 2020-08-08 20:00 | NUR ---
NURSE NOTES: Pt was assessed after receiving change of shift report from Joann. Sedated -2 light sedation while on Versed drip at 14mg/hr. Responsive to voice/touch. Orally intubated, ETT 7.5 at 25cm/lipline with vent settings AC26, VT500, Peep 16, FIO2 100%, with O2Sat 90-94%. Bilateral upper extremity edema. 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 Temp 98F/rectal while maintained on cooling blanket to regulate body temperature. Right nare NGT with feeding Vital AF 1.2 infusing at 20ml/hour. Abdomen is large, round, soft, nontender to touch with hypoactive bowel sounds. Biswas catheter, 16F present, draining cloudy/dark yen urine with sedimentation. Left UA PICC line and left FA #20G, both patent/intact. Skin is intact. HOB at 30 degrees, bed locked, in lowest position, three side rails up. Will continue to monitor pt and follow plan of care per MD orders and protocol.
[2020-08-08] MEDS: Vitamin D 1000 units Tab GT SCH (21:00)
--- NOTE | 2020-08-08 21:14 | Cardiology Progress Note ---
Subjective DATE OF SERVICE: Aug 08, 2020 Condition remains critical and prognosis guarded S/P chest tube for PTX He remains on full vent support, on high flow FIO2 - orally intubated. CXR (08/08) near resolution of rt PNX; no change bilat infiltrates Objective Last 24 Hour Vital Signs Date Time Temp Pulse Resp B/P (MAP) Pulse Ox O2 Delivery O2 Flow Rate FiO2 08/08/20 19:00 107 22 106/68 (81) 96 08/08/20 19:00 26 Mechanical Ventilator 100 08/08/20 18:30 106 22 108/74 (85) 98 08/08/20 18:00 24 Mechanical Ventilator 100 08/08/20 18:00 113 23 122/83 (96) 96 08/08/20 17:30 117 25 119/86 (97) 98 08/08/20 17:00 116 23 119/77 (91) 96 08/08/20 17:00 26 Mechanical Ventilator 100 08/08/20 16:35 120 24 121/83 (96) 96 08/08/20 16:30 123 25 124/84 (97) 97 08/08/20 16:00 124 08/08/20 16:00 26 Mechanical Ventilator 100 08/08/20 16:00 97.9 120 23 122/82 (95) 96 08/08/20 16:00 Mechanical Ventilator 08/08/20 16:00 100 08/08/20 15:30 123 18 120/84 (96) 90 08/08/20 15:10 129 29 100 08/08/20 15:00 26 Mechanical Ventilator 100 08/08/20 15:00 26 Mechanical Ventilator 100 08/08/20 15:00 132 28 141/95 (110) 96 08/08/20 14:30 132 25 124/87 (99) 97 08/08/20 14:00 128 27 132/88 (103) 96 08/08/20 14:00 26 Mechanical Ventilator 100 08/08/20 13:30 129 28 134/82 (99) 96 08/08/20 13:00 128 27 131/94 (106) 97 08/08/20 13:00 26 Mechanical Ventilator 100 08/08/20 12:30 124 30 119/77 (91) 99 08/08/20 12:00 Mechanical Ventilator 08/08/20 12:00 126 08/08/20 12:00 100 08/08/20 12:00 26 Mechanical Ventilator 100 08/08/20 12:00 98.0 124 31 118/75 (89) 90 08/08/20 11:10 119 29 100 08/08/20 11:00 27 Mechanical Ventilator 100 08/08/20 11:00 118 27 108/69 (82) 08/08/20 10:30 121 24 106/79 (88) 08/08/20 10:09 24 Mechanical Ventilator 100 08/08/20 10:00 26 Mechanical Ventilator 100 08/08/20 10:00 123 29 119/79 (92) 08/08/20 09:30 128 28 116/88 (97) 08/08/20 09:00 26 Mechanical Ventilator 100 08/08/20 09:00 126 36 103/78 (86) 08/08/20 08:30 124 30 100/78 (85) 08/08/20 08:15 24 Mechanical Ventilator 100 08/08/20 08:00 97.9 126 20 110/71 (84) 08/08/20 08:00 100 08/08/20 08:00 24 Mechanical Ventilator 100 08/08/20 08:00 117 08/08/20 08:00 Mechanical Ventilator 08/08/20 07:20 123 27 100 08/08/20 07:00 122 22 103/70 (81) 100 08/08/20 07:00 22 Mechanical Ventilator 100 08/08/20 06:00 24 Mechanical Ventilator 100 08/08/20 06:00 128 26 118/80 (93) 100 08/08/20 05:00 28 Mechanical Ventilator 100 08/08/20 05:00 137 27 105/76 (86) 99 08/08/20 04:00 144 08/08/20 04:00 29 Mechanical Ventilator 100 08/08/20 04:00 Mechanical Ventilator 08/08/20 04:00 99.8 143 29 131/89 (103) 95 08/08/20 04:00 100 08/08/20 03:22 143 29 100 08/08/20 03:00 28 Mechanical Ventilator 100 08/08/20 03:00 142 28 128/81 (97) 96 08/08/20 02:00 26 Mechanical Ventilator 100 08/08/20 02:00 132 26 112/76 (88) 95 08/08/20 01:33 26 Mechanical Ventilator 100 08/08/20 01:00 140 27 149/85 (106) 94 08/08/20 01:00 27 Mechanical Ventilator 100 08/08/20 00:00 100 08/08/20 00:00 130 08/08/20 00:00 28 Mechanical Ventilator 100 08/08/20 00:00 98.8 130 28 134/84 (101) 94 08/08/20 00:00 Mechanical Ventilator 08/07/20 23:09 130 28 100 08/07/20 23:00 130 27 140/83 (102) 93 08/07/20 23:00 26 Mechanical Ventilator 100 08/07/20 22:00 125 25 133/81 (98) 95 08/07/20 22:00 25 Mechanical Ventilator 100 HEENT: Orally intubated, Mechanically Ventilated, Thin secretions ET Tube RHYTHM: SB LUNGS: bilateral rhonchi, other - right chest tube CARDIAC: regular rhythm, normal S1 and S2, bradycardia ABDOMEN: normal bowel sounds, non tender, soft EXTREMITIES: normal range of motion, non-tender Laboratory Tests Test 08/07/20 23:40 08/08/20 03:00 08/08/20 05:21 POC Whole Blood Glucose 184 MG/DL (74-106) H Pending White Blood Count 20.1 K/UL (4.8-10.8) H Red Blood Count 4.03 M/UL (4.70-6.10) L Hemoglobin 12.5 G/DL (14.2-18.0) L Hematocrit 38.9 % (42.0-52.0) L Mean Corpuscular Volume 96 FL (80-99) Mean Corpuscular Hemoglobin 31.1 PG (27.0-31.0) H Mean Corpuscular Hemoglobin Concent 32.2 G/DL (32.0-36.0) Red Cell Distribution Width 15.8 % (11.6-14.8) H Platelet Count 359 K/UL (150-450) Mean Platelet Volume 6.5 FL (6.5-10.1) Neutrophils (%) (Auto) % (45.0-75.0) Lymphocytes (%) (Auto) % (20.0-45.0) Monocytes (%) (Auto) % (1.0-10.0) Eosinophils (%) (Auto) % (0.0-3.0) Basophils (%) (Auto) % (0.0-2.0) Differential Total Cells Counted 100 Neutrophils % (Manual) 83 % (45-75) H Lymphocytes % (Manual) 6 % (20-45) L Monocytes % (Manual) 6 % (1-10) Eosinophils % (Manual) 0 % (0-3) Basophils % (Manual) 0 % (0-2) Band Neutrophils 5 % (0-8) Platelet Estimate Adequate Platelet Morphology Normal Hypochromasia 1+ Anisocytosis 1+ Sodium Level 147 MMOL/L (136-145) H Potassium Level 4.1 MMOL/L (3.5-5.1) Chloride Level 106 MMOL/L (98-107) Carbon Dioxide Level > 45 MMOL/L (21-32) *H Blood Urea Nitrogen 24 mg/dL (7-18) H Creatinine 0.5 MG/DL (0.55-1.30) L Estimat Glomerular Filtration Rate > 60 mL/min (>60) Glucose Level 143 MG/DL (74-106) H Calcium Level 9.0 MG/DL (8.5-10.1) Total Bilirubin 0.6 MG/DL (0.2-1.0) Aspartate Amino Transf (AST/SGOT) 58 U/L (15-37) H Alanine Aminotransferase (ALT/SGPT) 39 U/L (12-78) Alkaline Phosphatase 82 U/L (46-116) Total Protein 6.0 G/DL (6.4-8.2) L Albumin 1.8 G/DL (3.4-5.0) L Globulin 4.2 g/dL Albumin/Globulin Ratio 0.4 (1.0-2.7) L Vancomycin Level Trough 13.7 ug/mL (5.0-12.0) H Microbiology Date/Time Source Procedure Growth Status 08/07/20 04:00 Sputum Gram Stain - Final Resulted 08/07/20 04:00 Sputum Culture - Preliminary Gram Negative Tobi Resulted Assessment/Plan Assessment/Plan Covid 19 PNA s/p PTX with right chest tube Secondary sinus tachycardia K.pneumonia PNA Acute respiratory failure with severe Hypoxia Sinus bradycardia resolved Diabetes mellitus with hyperglycemia due to steroids Transaminitis Mod protein/calorie malnutrition Dehydration/hypernatremia CRITICAL & GUARDED Chest tube management Abx per ID Continuous cardiac monitoring Anticoagulation and steroid rx Titrate oxygen as able; prone. Vent settings adjusted by pulmonary Anti-viral rx Protein suppl Free water replacement Insulin cov'g by SS; levemir dose advanced further. Chuck Swain MD Aug 08, 2020 21:14
--- NOTE | 2020-08-08 22:00 | NUR ---
NURSE NOTES: All PM meds given. Chest tube assessment and safety checks conducted. CT working properly, dressing is dry and intact, patient is afebrile. Patients suctioned and lavaged. Sinus tach at 124 at this time. Patient noted to have blisters on lips and scabs. Oral care performed. Repositioned patient carefully.
[2020-08-09] VITALS (37 sets, daily range): BP systolic 95–145; BP diastolic 65–97
--- NOTE | 2020-08-09 | NUR ---
NURSE NOTES: Glucose noted to be 209, insulin coverage given. Patient shifted carefully. Oral care performed. HR is 111ST.
[2020-08-09] MEDS: NovoLOG Insulin Flexpen SUBQ SCH ×4 (00:26→18:03)
[2020-08-09] MEDS: Midazolam HCl 50mg/10ml vial 100 MG in NS 180 ML IV SCH ×3 (00:27→17:00)
--- NOTE | 2020-08-09 02:00 | NUR ---
NURSE NOTES: Patient suctioned and repositioned, VSS. No acute changes at this time. Will continue to monitor.
--- NOTE | 2020-08-09 04:00 | NUR ---
NURSE NOTES: Versed at 5mg/hr now. Tolerating well. Labs drawn, bed bath given, VSS, afebrile NAD at this time. Patients BP within good ranges, making good urine output, light yen in color. Will continue to monitor.
--- NOTE | 2020-08-09 06:00 | NUR ---
NURSE NOTES: Patient remains stable and afebrile. No acute changes overnight. BS this morning 209, insulin coverage given. Patient repositioned and oral care given.
[2020-08-09] MEDS: Vancomycin 1.5gm/300ml Premix IVPB SCH (06:14)
[2020-08-09 06:30] LABS: HEMATOCRIT 38.2 % (42.0-52.0); HEMOGLOBIN 11.9 G/DL (14.2-18.0); MEAN CORPUSCULAR VOLUME 99 FL (80-99); PLATELET COUNT 140 K/UL (150-450); RED BLOOD COUNT 3.85 M/UL (4.70-6.10); RED CELL DISTRIBUTION WIDTH 15.1 % (11.6-14.8); WHITE BLOOD COUNT 16.3 K/UL (4.8-10.8)
[2020-08-09 06:45] LABS: ALANINE AMINOTRANSFERASE 50 U/L (12-78); ALBUMIN 1.5 G/DL (3.4-5.0); ALBUMIN/GLOBULIN RATIO 0.3 (1.0-2.7); ALKALINE PHOSPHATASE 85 U/L (46-116); ANION GAP 2 mmol/L (5-15); ASPARTATE AMINO TRANSFERASE 119 U/L (15-37); BILIRUBIN,TOTAL 0.7 MG/DL (0.2-1.0); BLOOD UREA NITROGEN 23 mg/dL (7-18); CALCIUM 8.2 MG/DL (8.5-10.1); CARBON DIOXIDE 37 MMOL/L (21-32); CHLORIDE 106 MMOL/L (98-107); CREATININE 0.2 MG/DL (0.55-1.30); POTASSIUM 4.8 MMOL/L (3.5-5.1); SODIUM 144 MMOL/L (136-145)
--- NOTE | 2020-08-09 08:00 | NUR ---
NURSE NOTES: Pt was assessed after receiving change of shift report from Jose THAPA. Sedated -2 light sedation while on Versed drip at 5mg/hr. Responsive to voice/touch. Orally intubated, ETT 7.5 at 25cm/lipline with vent settings AC26, VT500, Peep 16, FIO2 85%, with O2Sat 90-94%. Bilateral upper extremity edema. NSR on cardiac exercise specialist, HR 90. Temp 97.9F/axillary. Right nare NGT with feeding Vital AF 1.2 infusing at 30ml/hour. Abdomen is large, round, soft, nontender to touch with hypoactive bowel sounds. Biswas catheter, 16F present, draining cloudy/dark yen urine with sedimentation. Left UA PICC line and left FA #20G, both patent/intact. Skin is intact. HOB at 30 degrees, bed locked, in lowest position, three side rails up. Will continue to monitor pt and follow plan of care per MD orders and protocol.
--- NOTE | 2020-08-09 08:42 | Diagnostic Imaging Report ---
Indication: Reason For Exam: DVT Technique: Grayscale and duplex images of the bilateral lower extremity veins Comparison: None Findings: Bilaterally, grayscale and duplex images demonstrate no evidence of intraluminal thrombus. Normal phasic Doppler waveforms, demonstrating normal augmentation response and no evidence of valvular insufficiency. Greater saphenous vein(s) and tibial veins are patent. Normal compressibility. Impression: Negative for evidence of lower extremity deep venous thrombosis bilaterally
--- NOTE | 2020-08-09 09:04 | General Progress Note ---
Subjective ROS Limited/Unobtainable: Yes Constitutional: Reports: malaise HEENT: Reports: no symptoms Cardiovascular: Reports: no symptoms Respiratory: Reports: shortness of breath, sputum Gastrointestinal/Abdominal: Reports: difficulty swallowing Genitourinary: Reports: no symptoms Neurologic/Psychiatric: Reports: no symptoms Endocrine: Reports: no symptoms Hematologic/Lymphatic: Reports: no symptoms Allergies: Coded Allergies: No Known Allergies (Unverified , 03/08/17) All Systems: reviewed and negative except above Subjective no change. remains orally intubated. per staff responsive to stimuli. no bleeding. venous duplex neg. labs noted Objective Last 24 Hour Vital Signs Date Time Temp Pulse Resp B/P (MAP) Pulse Ox O2 Delivery O2 Flow Rate FiO2 08/09/20 08:00 24 Mechanical Ventilator 85 08/09/20 07:26 86 28 85 08/09/20 07:00 88 14 134/87 (103) 100 08/09/20 07:00 26 Mechanical Ventilator 85 08/09/20 06:00 26 Mechanical Ventilator 100 08/09/20 06:00 94.0 87 14 125/84 (98) 08/09/20 05:30 92 14 130/85 (100) 08/09/20 05:00 85 08/09/20 05:00 26 Mechanical Ventilator 100 08/09/20 05:00 96 14 124/86 (99) 08/09/20 04:30 97 26 123/84 (97) 96 08/09/20 04:00 100 08/09/20 04:00 26 Mechanical Ventilator 100 08/09/20 04:00 Mechanical Ventilator 08/09/20 04:00 97.0 102 26 128/87 (101) 93 08/09/20 04:00 98 08/09/20 03:45 26 Mechanical Ventilator 100 08/09/20 03:30 98 26 119/83 (95) 93 08/09/20 03:30 97 29 100 08/09/20 03:00 26 Mechanical Ventilator 26 08/09/20 03:00 96 26 111/97 (102) 93 08/09/20 02:30 102 26 142/86 (104) 95 08/09/20 02:00 26 Mechanical Ventilator 100 08/09/20 02:00 103 26 132/95 (107) 95 08/09/20 01:30 96 26 111/86 (94) 95 08/09/20 01:00 26 Mechanical Ventilator 100 08/09/20 01:00 102 26 95/77 (83) 95 08/09/20 00:30 104 26 121/79 (93) 95 08/09/20 00:27 26 Mechanical Ventilator 100 08/09/20 00:00 100 08/09/20 00:00 26 Mechanical Ventilator 100 08/09/20 00:00 Mechanical Ventilator 08/09/20 00:00 124 08/09/20 00:00 99.0 105 26 129/91 (104) 100 08/08/20 23:45 26 Mechanical Ventilator 100 08/08/20 23:09 120 27 100 08/08/20 23:00 26 Mechanical Ventilator 100 08/08/20 23:00 124 26 139/87 (104) 100 08/08/20 22:30 124 24 140/91 (107) 97 08/08/20 22:00 122 25 149/82 (104) 95 08/08/20 22:00 26 Mechanical Ventilator 100 08/08/20 21:30 130 26 132/93 (106) 95 08/08/20 21:00 26 Mechanical Ventilator 100 08/08/20 21:00 126 27 135/75 (95) 95 08/08/20 20:30 123 27 130/81 (97) 96 08/08/20 20:00 98.2 120 26 131/84 (100) 96 08/08/20 20:00 100 08/08/20 20:00 Mechanical Ventilator 08/08/20 20:00 26 Mechanical Ventilator 100 08/08/20 20:00 129 08/08/20 19:30 108 22 122/80 (94) 96 08/08/20 19:15 121 27 100 08/08/20 19:00 107 22 106/68 (81) 96 08/08/20 19:00 26 Mechanical Ventilator 100 08/08/20 18:30 106 22 108/74 (85) 98 08/08/20 18:00 24 Mechanical Ventilator 100 08/08/20 18:00 113 23 122/83 (96) 96 08/08/20 17:30 117 25 119/86 (97) 98 08/08/20 17:00 116 23 119/77 (91) 96 08/08/20 17:00 26 Mechanical Ventilator 100 08/08/20 16:35 120 24 121/83 (96) 96 08/08/20 16:30 123 25 124/84 (97) 97 08/08/20 16:00 124 08/08/20 16:00 26 Mechanical Ventilator 100 08/08/20 16:00 97.9 120 23 122/82 (95) 96 08/08/20 16:00 Mechanical Ventilator 08/08/20 16:00 100 08/08/20 15:30 123 18 120/84 (96) 90 08/08/20 15:10 129 29 100 08/08/20 15:00 26 Mechanical Ventilator 100 08/08/20 15:00 26 Mechanical Ventilator 100 08/08/20 15:00 132 28 141/95 (110) 96 08/08/20 14:30 132 25 124/87 (99) 97 08/08/20 14:00 128 27 132/88 (103) 96 08/08/20 14:00 26 Mechanical Ventilator 100 08/08/20 13:30 129 28 134/82 (99) 96 08/08/20 13:00 128 27 131/94 (106) 97 08/08/20 13:00 26 Mechanical Ventilator 100 08/08/20 12:30 124 30 119/77 (91) 99 08/08/20 12:00 Mechanical Ventilator 08/08/20 12:00 126 08/08/20 12:00 100 08/08/20 12:00 26 Mechanical Ventilator 100 08/08/20 12:00 98.0 124 31 118/75 (89) 90 08/08/20 11:10 119 29 100 08/08/20 11:00 27 Mechanical Ventilator 100 08/08/20 11:00 118 27 108/69 (82) 08/08/20 10:30 121 24 106/79 (88) 08/08/20 10:09 24 Mechanical Ventilator 100 08/08/20 10:00 26 Mechanical Ventilator 100 08/08/20 10:00 123 29 119/79 (92) 08/08/20 09:30 128 28 116/88 (97) Intake and Output 08/08/20 08/09/20 19:00 07:00 Intake Total 1450 ml 899.5 ml Output Total 300 ml 550 ml Balance 1150 ml 349.5 ml Free Water 180 ml 30 ml IV Total 920 ml 509.5 ml Tube Feeding 350 ml 360 ml Output Urine Total 300 ml 550 ml Laboratory Tests 08/08/20 21:24: POC Whole Blood Glucose 221H 08/09/20 00:16: POC Whole Blood Glucose 209H 08/09/20 04:00: White Blood Count 16.3H, Red Blood Count 3.85L, Hemoglobin 11.9L, Hematocrit 38.2L, Mean Corpuscular Volume 99, Mean Corpuscular Hemoglobin 31.0, Mean Corpuscular Hemoglobin Concent 31.1L, Red Cell Distribution Width 15.1H, Platelet Count 140#L, Mean Platelet Volume 6.8, Neutrophils (%) (Auto) , Lymp hocytes (%) (Auto) , Monocytes (%) (Auto) , Eosinophils (%) (Auto) , Basophils (%) (Auto) , Neutrophils % (Manual) [Pending], Lymphocytes % (Manual) [Pending], Platelet Estimate [Pending], Platelet Morphology [Pending], Sodium Level 144, Potassium Level 4.8, Chloride Level 106, Carbon Dioxide Level 37H, Anion Gap 2L, Blood Urea Nitrogen 23H, Creatinine 0.2#L, Estimat Glomerular Filtration Rate > 60, Glucose Level 204H, Calcium Level 8.2L, Total Bilirubin 0.7, Aspartate Amino Transf (AST/SGOT) 119H, Alanine Aminotransferase (ALT/SGPT) 50, Alkaline Phosphatase 85, Total Protein 5.9L, Albumin 1.5L, Globulin 4.4, Albumin/Globulin Ratio 0.3L, Vancomycin Level Trough 12.8H 08/09/20 05:14: POC Whole Blood Glucose 209H Height (Feet): 5 Height (Inches): 6.00 Weight (Pounds): 209 Objective deferred Assessment/Plan Problem List: (1) Coronavirus infection ICD Codes: B34.2 - Coronavirus infection, unspecified SNOMED: 852707904 (2) Respiratory failure ICD Codes: J96.90 - Respiratory failure, unspecified, unspecified whether with hypoxia or hypercapnia SNOMED: 343937697 (3) Hypercapnia ICD Codes: R06.89 - Other abnormalities of breathing SNOMED: 01572212, 503823190 (4) Hypoxia ICD Codes: R09.02 - Hypoxemia SNOMED: 744879377 (5) Asthma ICD Codes: J45.909 - Unspecified asthma, uncomplicated SNOMED: 578429760, 664960489 (6) Pneumothorax ICD Codes: J93.9 - Pneumothorax, unspecified SNOMED: 22439367 Status: progressing, not improved Assessment/Plan: vent support wean fio2 and peep as able resp care dc lovenox with bleeding from the mouth monitor plts- trending down scd iv abx per id remains critical and guarded d/w brother- dnr but still wants all other aggressive rx attempted to transfer for higher level of care- no accepting hospitals so far Rolando Cherry MD Aug 09, 2020 09:04
--- NOTE | 2020-08-09 09:30 | NUR ---
NURSE NOTES: Pt continues to have pink/tinged/bloody oral secretion. Lavaged via ETT. Oral care done and pt suctioned. AM meds were administered.
[2020-08-09] MEDS: Solu-MEDROL 40mg Inj IVP SCH (09:38)
[2020-08-09] MEDS: Ascorbic Acid 500mg tab NG SCH ×2 (09:38→21:33)
[2020-08-09] MEDS: Vitamin B Complex Tab NG SCH (09:38)
[2020-08-09] MEDS: Docusate 100mg/10ml Liq NG SCH ×2 (09:38→21:33)
[2020-08-09] MEDS: cefTRIAXone 1 GM in D5W 55 ML IVPB SCH (09:39)
[2020-08-09] MEDS: Levemir Flexpen SUBQ SCH ×2 (09:46→22:01)
--- NOTE | 2020-08-09 09:47 | Infectious Diseases Prog Note ---
Assessment/Plan Assessment/Plan A: 1. COVID-19 pneumonia. 2. History of asthma. 3. Elevated liver function tests. 4. Fatty liver 5. DM with hyperglycemia 6. Leukocytosis worsening 7. Hypoxic respiratory failure 8. Gram negative pneumonia 9. Positive blood culture with CoANS PLAN: 1. Continue Methylprednisone 2. Start on Zosyn 3. Discontinue Ceftriaxone & Vancomycin 4. higher level of care 5. case was D/W RN Subjective ROS Limited/Unobtainable: Yes Constitutional: Reports: other - hypothermic Allergies: Coded Allergies: No Known Allergies (Unverified , 03/08/17) Objective Last 24 Hour Vital Signs Date Time Temp Pulse Resp B/P (MAP) Pulse Ox O2 Delivery O2 Flow Rate FiO2 08/09/20 08:00 24 Mechanical Ventilator 85 08/09/20 07:26 86 28 85 08/09/20 07:00 88 14 134/87 (103) 100 08/09/20 07:00 26 Mechanical Ventilator 85 08/09/20 06:00 26 Mechanical Ventilator 100 08/09/20 06:00 94.0 87 14 125/84 (98) 08/09/20 05:30 92 14 130/85 (100) 08/09/20 05:00 85 08/09/20 05:00 26 Mechanical Ventilator 100 08/09/20 05:00 96 14 124/86 (99) 08/09/20 04:30 97 26 123/84 (97) 96 08/09/20 04:00 100 08/09/20 04:00 26 Mechanical Ventilator 100 08/09/20 04:00 Mechanical Ventilator 08/09/20 04:00 97.0 102 26 128/87 (101) 93 08/09/20 04:00 98 08/09/20 03:45 26 Mechanical Ventilator 100 08/09/20 03:30 98 26 119/83 (95) 93 08/09/20 03:30 97 29 100 08/09/20 03:00 26 Mechanical Ventilator 26 08/09/20 03:00 96 26 111/97 (102) 93 08/09/20 02:30 102 26 142/86 (104) 95 08/09/20 02:00 26 Mechanical Ventilator 100 08/09/20 02:00 103 26 132/95 (107) 95 08/09/20 01:30 96 26 111/86 (94) 95 08/09/20 01:00 26 Mechanical Ventilator 100 08/09/20 01:00 102 26 95/77 (83) 95 08/09/20 00:30 104 26 121/79 (93) 95 08/09/20 00:27 26 Mechanical Ventilator 100 08/09/20 00:00 100 08/09/20 00:00 26 Mechanical Ventilator 100 08/09/20 00:00 Mechanical Ventilator 08/09/20 00:00 124 08/09/20 00:00 99.0 105 26 129/91 (104) 100 08/08/20 23:45 26 Mechanical Ventilator 100 08/08/20 23:09 120 27 100 08/08/20 23:00 26 Mechanical Ventilator 100 08/08/20 23:00 124 26 139/87 (104) 100 08/08/20 22:30 124 24 140/91 (107) 97 08/08/20 22:00 122 25 149/82 (104) 95 08/08/20 22:00 26 Mechanical Ventilator 100 08/08/20 21:30 130 26 132/93 (106) 95 08/08/20 21:00 26 Mechanical Ventilator 100 08/08/20 21:00 126 27 135/75 (95) 95 08/08/20 20:30 123 27 130/81 (97) 96 08/08/20 20:00 98.2 120 26 131/84 (100) 96 08/08/20 20:00 100 08/08/20 20:00 Mechanical Ventilator 08/08/20 20:00 26 Mechanical Ventilator 100 08/08/20 20:00 129 08/08/20 19:30 108 22 122/80 (94) 96 08/08/20 19:15 121 27 100 08/08/20 19:00 107 22 106/68 (81) 96 08/08/20 19:00 26 Mechanical Ventilator 100 08/08/20 18:30 106 22 108/74 (85) 98 08/08/20 18:00 24 Mechanical Ventilator 100 08/08/20 18:00 113 23 122/83 (96) 96 08/08/20 17:30 117 25 119/86 (97) 98 08/08/20 17:00 116 23 119/77 (91) 96 08/08/20 17:00 26 Mechanical Ventilator 100 08/08/20 16:35 120 24 121/83 (96) 96 08/08/20 16:30 123 25 124/84 (97) 97 08/08/20 16:00 124 08/08/20 16:00 26 Mechanical Ventilator 100 08/08/20 16:00 97.9 120 23 122/82 (95) 96 08/08/20 16:00 Mechanical Ventilator 08/08/20 16:00 100 08/08/20 15:30 123 18 120/84 (96) 90 08/08/20 15:10 129 29 100 08/08/20 15:00 26 Mechanical Ventilator 100 08/08/20 15:00 26 Mechanical Ventilator 100 08/08/20 15:00 132 28 141/95 (110) 96 08/08/20 14:30 132 25 124/87 (99) 97 08/08/20 14:00 128 27 132/88 (103) 96 08/08/20 14:00 26 Mechanical Ventilator 100 08/08/20 13:30 129 28 134/82 (99) 96 08/08/20 13:00 128 27 131/94 (106) 97 08/08/20 13:00 26 Mechanical Ventilator 100 08/08/20 12:30 124 30 119/77 (91) 99 08/08/20 12:00 Mechanical Ventilator 08/08/20 12:00 126 08/08/20 12:00 100 08/08/20 12:00 26 Mechanical Ventilator 100 08/08/20 12:00 98.0 124 31 118/75 (89) 90 08/08/20 11:10 119 29 100 08/08/20 11:00 27 Mechanical Ventilator 100 08/08/20 11:00 118 27 108/69 (82) 08/08/20 10:30 121 24 106/79 (88) 08/08/20 10:09 24 Mechanical Ventilator 100 08/08/20 10:00 26 Mechanical Ventilator 100 08/08/20 10:00 123 29 119/79 (92) Height (Feet): 5 Height (Inches): 6.00 Weight (Pounds): 209 HEENT: other - orally intubated Respiratory/Chest: other - on ventilator, R chest tube Cardiovascular: normal rate Abdomen: soft, non tender, other - feeding Neurologic/Psychiatric: unresponsiveness Microbiology Date/Time Source Procedure Growth Status 08/07/20 04:00 Sputum Gram Stain - Final Resulted 08/07/20 04:00 Sputum Culture - Preliminary Gram Negative Tobi Resulted Laboratory Tests Test 08/08/20 21:24 08/09/20 00:16 08/09/20 04:00 08/09/20 05:14 POC Whole Blood Glucose 221 MG/DL (74-106) H 209 MG/DL (74-106) H 209 MG/DL (74-106) H White Blood Count 16.3 K/UL (4.8-10.8) H Red Blood Count 3.85 M/UL (4.70-6.10) L Hemoglobin 11.9 G/DL (14.2-18.0) L Hematocrit 38.2 % (42.0-52.0) L Mean Corpuscular Volume 99 FL (80-99) Mean Corpuscular Hemoglobin 31.0 PG (27.0-31.0) Mean Corpuscular Hemoglobin Concent 31.1 G/DL (32.0-36.0) L Red Cell Distribution Width 15.1 % (11.6-14.8) H Platelet Count 140 K/UL (150-450) #L Mean Platelet Volume 6.8 FL (6.5-10.1) Neutrophils (%) (Auto) % (45.0-75.0) Lymphocytes (%) (Auto) % (20.0-45.0) Monocytes (%) (Auto) % (1.0-10.0) Eosinophils (%) (Auto) % (0.0-3.0) Basophils (%) (Auto) % (0.0-2.0) Neutrophils % (Manual) Pending Lymphocytes % (Manual) Pending Platelet Estimate Pending Platelet Morphology Pending Sodium Level 144 MMOL/L (136-145) Potassium Level 4.8 MMOL/L (3.5-5.1) Chloride Level 106 MMOL/L (98-107) Carbon Dioxide Level 37 MMOL/L (21-32) H Anion Gap 2 mmol/L (5-15) L Blood Urea Nitrogen 23 mg/dL (7-18) H Creatinine 0.2 MG/DL (0.55-1.30) #L Estimat Glomerular Filtration Rate > 60 mL/min (>60) Glucose Level 204 MG/DL (74-106) H Calcium Level 8.2 MG/DL (8.5-10.1) L Total Bilirubin 0.7 MG/DL (0.2-1.0) Aspartate Amino Transf (AST/SGOT) 119 U/L (15-37) H Alanine Aminotransferase (ALT/SGPT) 50 U/L (12-78) Alkaline Phosphatase 85 U/L (46-116) Total Protein 5.9 G/DL (6.4-8.2) L Albumin 1.5 G/DL (3.4-5.0) L Globulin 4.4 g/dL Albumin/Globulin Ratio 0.3 (1.0-2.7) L Vancomycin Level Trough 12.8 ug/mL (5.0-12.0) H Current Medications Medications (Trade) Dose Ordered Sig/Milagro Route PRN Reason Start Time Stop Time Status Last Admin Dose Admin Acetaminophen (Tylenol) 650 mg Q4H PRN RECTAL Mild Pain (Pain Scale 1-3) 07/24/20 18:15 08/23/20 18:14 07/25/20 11:49 Acetaminophen (Tylenol) 650 mg Q6H PRN NG Temp >100.5 07/26/20 08:30 08/25/20 08:29 08/03/20 09:36 Acetaminophen (Tylenol) 650 mg Q6H PRN NG Mild Pain (Pain Scale 1-3) 07/26/20 08:30 08/25/20 08:29 08/04/20 17:26 Ascorbic Acid (Vitamin C) 500 mg EVERY 12 HOURS NG 07/26/20 21:00 08/10/20 08:59 08/08/20 21:00 Ceftriaxone Sodium 1 gm/ Dextrose 55 ml @ 110 mls/hr Q24H IVPB 08/07/20 10:30 08/14/20 10:29 08/08/20 10:09 Chlorhexidine Gluconate (Marycarmen-Hex 2%) 1 applic DAILY@2000 TOPIC 07/20/20 20:00 10/18/20 19:59 08/08/20 20:00 Dextrose (Dextrose 50%) 25 ml Q30M PRN IV Hypoglycemia 07/23/20 13:15 10/21/20 13:14 Dextrose (Dextrose 50%) 50 ml Q30M PRN IV Hypoglycemia 07/23/20 13:15 10/21/20 13:14 Dextrose/Sodium Chloride 1,000 ml @ 100 mls/hr Q10H PRN IV WHILE PRONING ONLY 07/24/20 17:45 08/23/20 17:44 07/24/20 18:01 Docusate Sodium (Colace) 100 mg EVERY 12 HOURS NG 07/27/20 21:00 08/26/20 20:59 08/08/20 21:00 Famotidine (Pepcid I.v.) 20 mg Q12HR IVP 08/04/20 21:00 09/03/20 20:59 08/08/20 21:00 Fluconazole (Diflucan) 100 mg Q24H NG 08/08/20 20:00 08/15/20 19:59 08/08/20 20:00 Insulin Aspart (NovoLOG) EVERY 6 HOURS SUBQ 07/28/20 00:00 10/21/20 15:59 08/09/20 06:14 Insulin Detemir (Levemir) 26 units EVERY 12 HOURS SUBQ 07/26/20 09:00 10/20/20 08:59 08/08/20 21:00 Methylprednisolone Sodium Succinate (Solu-MEDROL) 10 mg DAILY IVP 08/13/20 09:00 08/14/20 09:01 Methylprednisolone Sodium Succinate (Solu-MEDROL) 20 mg DAILY IVP 08/11/20 09:00 08/12/20 09:01 Methylprednisolone Sodium Succinate (Solu-MEDROL) 30 mg DAILY IVP 08/09/20 09:00 08/10/20 09:01 Midazolam HCl 100 mg/Sodium Chloride 200 ml @ 0 mls/hr Q24H IV 08/07/20 17:00 08/09/20 16:59 08/09/20 00:27 Promethazine HCl/ Codeine (Phenergan with Codeine) 5 ml Q4H PRN ORAL For Cough 07/11/20 15:15 08/10/20 15:14 07/26/20 18:26 Vancomycin HCl 300 ml @ 150 mls/hr Q8H IVPB 08/08/20 06:00 08/13/20 05:59 08/09/20 06:14 Vancomycin HCl (Vanco pharmacy to dose) 1 ea DAILY PRN MISC Per rx protocol 07/26/20 09:00 08/25/20 08:59 Vitamin B Complex (Vitamin B Complex) 1 tab DAILY NG 07/24/20 09:00 10/09/20 08:59 08/08/20 10:08 Vitamin D (Vitamin D) 1,000 unit BEDTIME GT 07/27/20 21:00 08/13/20 09:29 08/08/20 21:00 Mian Wing MD Aug 09, 2020 09:47
--- NOTE | 2020-08-09 09:52 | Cardiology Progress Note ---
Subjective DATE OF SERVICE: Aug 09, 2020 Condition remains critical and prognosis guarded S/P chest tube for PTX He remains on full vent support, on high flow FIO2 - orally intubated. CXR (08/08) near resolution of rt PNX; no change bilat infiltrates Objective Last 24 Hour Vital Signs Date Time Temp Pulse Resp B/P (MAP) Pulse Ox O2 Delivery O2 Flow Rate FiO2 08/09/20 09:00 20 Mechanical Ventilator 85 08/09/20 09:00 20 Mechanical Ventilator 85 08/09/20 09:00 20 Mechanical Ventilator 85 08/09/20 09:00 20 Mechanical Ventilator 85 08/09/20 09:00 20 Mechanical Ventilator 85 08/09/20 08:00 24 Mechanical Ventilator 85 08/09/20 07:26 86 28 85 08/09/20 07:00 88 14 134/87 (103) 100 08/09/20 07:00 26 Mechanical Ventilator 85 08/09/20 06:00 26 Mechanical Ventilator 100 08/09/20 06:00 94.0 87 14 125/84 (98) 08/09/20 05:30 92 14 130/85 (100) 08/09/20 05:00 85 08/09/20 05:00 26 Mechanical Ventilator 100 08/09/20 05:00 96 14 124/86 (99) 08/09/20 04:30 97 26 123/84 (97) 96 08/09/20 04:00 100 08/09/20 04:00 26 Mechanical Ventilator 100 08/09/20 04:00 Mechanical Ventilator 08/09/20 04:00 97.0 102 26 128/87 (101) 93 08/09/20 04:00 98 08/09/20 03:45 26 Mechanical Ventilator 100 08/09/20 03:30 98 26 119/83 (95) 93 08/09/20 03:30 97 29 100 08/09/20 03:00 26 Mechanical Ventilator 26 08/09/20 03:00 96 26 111/97 (102) 93 08/09/20 02:30 102 26 142/86 (104) 95 08/09/20 02:00 26 Mechanical Ventilator 100 08/09/20 02:00 103 26 132/95 (107) 95 08/09/20 01:30 96 26 111/86 (94) 95 08/09/20 01:00 26 Mechanical Ventilator 100 08/09/20 01:00 102 26 95/77 (83) 95 08/09/20 00:30 104 26 121/79 (93) 95 08/09/20 00:27 26 Mechanical Ventilator 100 08/09/20 00:00 100 08/09/20 00:00 26 Mechanical Ventilator 100 08/09/20 00:00 Mechanical Ventilator 08/09/20 00:00 124 08/09/20 00:00 99.0 105 26 129/91 (104) 100 08/08/20 23:45 26 Mechanical Ventilator 100 08/08/20 23:09 120 27 100 08/08/20 23:00 26 Mechanical Ventilator 100 08/08/20 23:00 124 26 139/87 (104) 100 08/08/20 22:30 124 24 140/91 (107) 97 08/08/20 22:00 122 25 149/82 (104) 95 08/08/20 22:00 26 Mechanical Ventilator 100 08/08/20 21:30 130 26 132/93 (106) 95 08/08/20 21:00 26 Mechanical Ventilator 100 08/08/20 21:00 126 27 135/75 (95) 95 08/08/20 20:30 123 27 130/81 (97) 96 08/08/20 20:00 98.2 120 26 131/84 (100) 96 08/08/20 20:00 100 08/08/20 20:00 Mechanical Ventilator 08/08/20 20:00 26 Mechanical Ventilator 100 08/08/20 20:00 129 08/08/20 19:30 108 22 122/80 (94) 96 08/08/20 19:15 121 27 100 08/08/20 19:00 107 22 106/68 (81) 96 08/08/20 19:00 26 Mechanical Ventilator 100 08/08/20 18:30 106 22 108/74 (85) 98 08/08/20 18:00 24 Mechanical Ventilator 100 08/08/20 18:00 113 23 122/83 (96) 96 08/08/20 17:30 117 25 119/86 (97) 98 08/08/20 17:00 116 23 119/77 (91) 96 08/08/20 17:00 26 Mechanical Ventilator 100 08/08/20 16:35 120 24 121/83 (96) 96 08/08/20 16:30 123 25 124/84 (97) 97 08/08/20 16:00 124 08/08/20 16:00 26 Mechanical Ventilator 100 08/08/20 16:00 97.9 120 23 122/82 (95) 96 08/08/20 16:00 Mechanical Ventilator 08/08/20 16:00 100 08/08/20 15:30 123 18 120/84 (96) 90 08/08/20 15:10 129 29 100 08/08/20 15:00 26 Mechanical Ventilator 100 08/08/20 15:00 26 Mechanical Ventilator 100 08/08/20 15:00 132 28 141/95 (110) 96 08/08/20 14:30 132 25 124/87 (99) 97 08/08/20 14:00 128 27 132/88 (103) 96 08/08/20 14:00 26 Mechanical Ventilator 100 08/08/20 13:30 129 28 134/82 (99) 96 08/08/20 13:00 128 27 131/94 (106) 97 08/08/20 13:00 26 Mechanical Ventilator 100 08/08/20 12:30 124 30 119/77 (91) 99 08/08/20 12:00 Mechanical Ventilator 08/08/20 12:00 126 08/08/20 12:00 100 08/08/20 12:00 26 Mechanical Ventilator 100 08/08/20 12:00 98.0 124 31 118/75 (89) 90 08/08/20 11:10 119 29 100 08/08/20 11:00 27 Mechanical Ventilator 100 08/08/20 11:00 118 27 108/69 (82) 08/08/20 10:30 121 24 106/79 (88) 08/08/20 10:09 24 Mechanical Ventilator 100 08/08/20 10:00 26 Mechanical Ventilator 100 08/08/20 10:00 123 29 119/79 (92) HEENT: Orally intubated, Mechanically Ventilated, Thin secretions ET Tube RHYTHM: SB LUNGS: bilateral rhonchi, other - right chest tube CARDIAC: regular rhythm, normal S1 and S2, bradycardia ABDOMEN: normal bowel sounds, non tender, soft EXTREMITIES: normal range of motion, non-tender Laboratory Tests Test 08/08/20 21:24 08/09/20 00:16 08/09/20 04:00 08/09/20 05:14 POC Whole Blood Glucose 221 MG/DL (74-106) H 209 MG/DL (74-106) H 209 MG/DL (74-106) H White Blood Count 16.3 K/UL (4.8-10.8) H Red Blood Count 3.85 M/UL (4.70-6.10) L Hemoglobin 11.9 G/DL (14.2-18.0) L Hematocrit 38.2 % (42.0-52.0) L Mean Corpuscular Volume 99 FL (80-99) Mean Corpuscular Hemoglobin 31.0 PG (27.0-31.0) Mean Corpuscular Hemoglobin Concent 31.1 G/DL (32.0-36.0) L Red Cell Distribution Width 15.1 % (11.6-14.8) H Platelet Count 140 K/UL (150-450) #L Mean Platelet Volume 6.8 FL (6.5-10.1) Neutrophils (%) (Auto) % (45.0-75.0) Lymphocytes (%) (Auto) % (20.0-45.0) Monocytes (%) (Auto) % (1.0-10.0) Eosinophils (%) (Auto) % (0.0-3.0) Basophils (%) (Auto) % (0.0-2.0) Neutrophils % (Manual) Pending Lymphocytes % (Manual) Pending Platelet Estimate Pending Platelet Morphology Pending Sodium Level 144 MMOL/L (136-145) Potassium Level 4.8 MMOL/L (3.5-5.1) Chloride Level 106 MMOL/L (98-107) Carbon Dioxide Level 37 MMOL/L (21-32) H Anion Gap 2 mmol/L (5-15) L Blood Urea Nitrogen 23 mg/dL (7-18) H Creatinine 0.2 MG/DL (0.55-1.30) #L Estimat Glomerular Filtration Rate > 60 mL/min (>60) Glucose Level 204 MG/DL (74-106) H Calcium Level 8.2 MG/DL (8.5-10.1) L Total Bilirubin 0.7 MG/DL (0.2-1.0) Aspartate Amino Transf (AST/SGOT) 119 U/L (15-37) H Alanine Aminotransferase (ALT/SGPT) 50 U/L (12-78) Alkaline Phosphatase 85 U/L (46-116) Total Protein 5.9 G/DL (6.4-8.2) L Albumin 1.5 G/DL (3.4-5.0) L Globulin 4.4 g/dL Albumin/Globulin Ratio 0.3 (1.0-2.7) L Vancomycin Level Trough 12.8 ug/mL (5.0-12.0) H Microbiology Date/Time Source Procedure Growth Status 08/07/20 04:00 Sputum Gram Stain - Final Resulted 08/07/20 04:00 Sputum Culture - Preliminary Gram Negative Tobi Resulted Assessment/Plan Assessment/Plan Covid 19 PNA s/p PTX with right chest tube Secondary sinus tachycardia K.pneumonia PNA Acute respiratory failure with severe Hypoxia - slightly improved over past day. Sinus bradycardia resolved Diabetes mellitus with hyperglycemia due to steroids Transaminitis Mod protein/calorie malnutrition Dehydration/hypernatremia CRITICAL & GUARDED Chest tube management Abx per ID Continuous cardiac monitoring Anticoagulation and steroid rx Titrate oxygen as able; prone. Vent settings adjusted by pulmonary Anti-viral rx Protein suppl Free water replacement Insulin cov'g by SS; levemir dose advanced further. Chuck Swain MD Aug 09, 2020 09:52
--- NOTE | 2020-08-09 10:30 | NUR ---
NURSE NOTES: Dr. Price is at the nurse's station and was updated on pt's current status. MD notified current FIO2 is now 85% and pt is tolerating well. Per MD "attempt FIo2 down to 80% if pt can tolerate it". RT was notified.
[2020-08-09] MEDS: Piperacillin/Tazobactam 3.375 GM in NS 110 ML IVPB SCH ×2 (12:23→21:34)
--- NOTE | 2020-08-09 13:00 | NUR ---
NURSE NOTES: FIO2 was titrated back up to 100% due to desaturation to low 89% and tachycardia. Pt remains on Versed drip 5mg/hr.
--- NOTE | 2020-08-09 16:00 | NUR ---
[employer] Examin[employer] SI: Respiratory Failure, Covid-PNA, ETT/Vent Support, pneumothorax-chest tube to suction T 99.5 (Ax), HR 128, RR 31, BP 136/87 AC 26, TV 500, PEEP 16, FiO2 100%, O2 Sat 91% WBC 16.3, BUN 23, Creatinine 0.2 IS: Midazolam GTT Solu-Medrol IV QD Pepcid IV q 12 h Zosyn IV q 8 hrs Pepcid IV q 12 h ICU Status Plan: Place on MAC list for ECMO
--- NOTE | 2020-08-09 17:00 | NUR ---
NURSE NOTES: Pt had BM x1, large/soft/dark brown/pasty. Cooling bed/bath was given, gown/bed linens were changed. Pt was repositioned for comfort, with pillows and off/heels. Versed drip rate is now being titrated up to reach/maintain -2 light sedation /RASS score.
--- NOTE | 2020-08-09 17:11 | Pulmonology Progress Note ---
Subjective ROS Limited/Unobtainable: Yes Constitutional: Reports: other - hypothermic Gastrointestinal/Abdominal: Denies: nausea, vomiting, diarrhea Musculoskeletal: Denies: pain Allergies: Coded Allergies: No Known Allergies (Unverified , 03/08/17) All Systems: reviewed and negative except above Subjective ct in place small ptx on high oxygen but better and sats >90 on vent full code Objective Last 24 Hour Vital Signs Date Time Temp Pulse Resp B/P (MAP) Pulse Ox O2 Delivery O2 Flow Rate FiO2 08/09/20 15:00 128 31 136/87 (103) 91 08/09/20 14:00 121 30 135/81 (99) 94 08/09/20 14:00 30 Mechanical Ventilator 100 08/09/20 13:30 125 30 142/94 (110) 95 08/09/20 13:13 123 28 100 08/09/20 13:13 123 28 98 Mechanical Ventilator 100 08/09/20 13:00 26 Mechanical Ventilator 100 08/09/20 13:00 120 28 127/78 (94) 93 08/09/20 12:30 115 27 117/81 (93) 94 08/09/20 12:00 110 26 143/91 (108) 94 08/09/20 12:00 Mechanical Ventilator 08/09/20 12:00 24 Mechanical Ventilator 85 08/09/20 12:00 85 08/09/20 12:00 122 08/09/20 11:30 111 27 136/91 (106) 94 08/09/20 11:00 102 21 130/88 (102) 96 08/09/20 11:00 22 Mechanical Ventilator 85 08/09/20 10:30 96 18 129/89 (102) 97 08/09/20 10:00 89 16 129/85 (100) 98 08/09/20 10:00 16 Mechanical Ventilator 85 08/09/20 10:00 16 Mechanical Ventilator 85 08/09/20 09:30 88 14 124/86 (99) 98 08/09/20 09:00 82 14 120/71 (87) 98 08/09/20 09:00 20 Mechanical Ventilator 85 08/09/20 09:00 20 Mechanical Ventilator 85 08/09/20 09:00 20 Mechanical Ventilator 85 08/09/20 09:00 20 Mechanical Ventilator 85 08/09/20 09:00 20 Mechanical Ventilator 85 08/09/20 08:30 79 11 119/83 (95) 98 08/09/20 08:00 Mechanical Ventilator 08/09/20 08:00 24 Mechanical Ventilator 85 08/09/20 08:00 89 08/09/20 08:00 97.6 91 10 131/87 (102) 98 08/09/20 07:26 86 28 85 08/09/20 07:00 88 14 134/87 (103) 100 08/09/20 07:00 26 Mechanical Ventilator 85 08/09/20 06:00 26 Mechanical Ventilator 100 08/09/20 06:00 94.0 87 14 125/84 (98) 08/09/20 05:30 92 14 130/85 (100) 08/09/20 05:00 85 08/09/20 05:00 26 Mechanical Ventilator 100 08/09/20 05:00 96 14 124/86 (99) 08/09/20 04:30 97 26 123/84 (97) 96 08/09/20 04:00 100 08/09/20 04:00 26 Mechanical Ventilator 100 08/09/20 04:00 Mechanical Ventilator 08/09/20 04:00 97.0 102 26 128/87 (101) 93 08/09/20 04:00 98 08/09/20 03:45 26 Mechanical Ventilator 100 08/09/20 03:30 98 26 119/83 (95) 93 08/09/20 03:30 97 29 100 08/09/20 03:00 26 Mechanical Ventilator 26 08/09/20 03:00 96 26 111/97 (102) 93 08/09/20 02:30 102 26 142/86 (104) 95 08/09/20 02:00 26 Mechanical Ventilator 100 08/09/20 02:00 103 26 132/95 (107) 95 08/09/20 01:30 96 26 111/86 (94) 95 08/09/20 01:00 26 Mechanical Ventilator 100 08/09/20 01:00 102 26 95/77 (83) 95 08/09/20 00:30 104 26 121/79 (93) 95 08/09/20 00:27 26 Mechanical Ventilator 100 08/09/20 00:00 100 08/09/20 00:00 26 Mechanical Ventilator 100 08/09/20 00:00 Mechanical Ventilator 08/09/20 00:00 124 08/09/20 00:00 99.0 105 26 129/91 (104) 100 08/08/20 23:45 26 Mechanical Ventilator 100 08/08/20 23:09 120 27 100 08/08/20 23:00 26 Mechanical Ventilator 100 08/08/20 23:00 124 26 139/87 (104) 100 08/08/20 22:30 124 24 140/91 (107) 97 08/08/20 22:00 122 25 149/82 (104) 95 08/08/20 22:00 26 Mechanical Ventilator 100 08/08/20 21:30 130 26 132/93 (106) 95 08/08/20 21:00 26 Mechanical Ventilator 100 08/08/20 21:00 126 27 135/75 (95) 95 08/08/20 20:30 123 27 130/81 (97) 96 08/08/20 20:00 98.2 120 26 131/84 (100) 96 08/08/20 20:00 100 08/08/20 20:00 Mechanical Ventilator 08/08/20 20:00 26 Mechanical Ventilator 100 08/08/20 20:00 129 08/08/20 19:30 108 22 122/80 (94) 96 08/08/20 19:15 121 27 100 08/08/20 19:00 107 22 106/68 (81) 96 08/08/20 19:00 26 Mechanical Ventilator 100 08/08/20 18:30 106 22 108/74 (85) 98 08/08/20 18:00 24 Mechanical Ventilator 100 08/08/20 18:00 113 23 122/83 (96) 96 08/08/20 17:30 117 25 119/86 (97) 98 Intake and Output 08/08/20 08/09/20 19:00 07:00 Intake Total 1450 ml 899.5 ml Output Total 300 ml 550 ml Balance 1150 ml 349.5 ml Free Water 180 ml 30 ml IV Total 920 ml 509.5 ml Tube Feeding 350 ml 360 ml Output Urine Total 300 ml 550 ml Objective deferred due to COVID Microbiology Date/Time Source Procedure Growth Status 08/07/20 04:00 Sputum Gram Stain - Final Resulted 08/07/20 04:00 Sputum Culture - Preliminary Gram Negative Tobi Resulted Laboratory Tests 08/08/20 21:24: POC Whole Blood Glucose 221H 08/09/20 00:16: POC Whole Blood Glucose 209H 08/09/20 04:00: White Blood Count 16.3H, Red Blood Count 3.85L, Hemoglobin 11.9L, Hematocrit 38.2L, Mean Corpuscular Volume 99, Mean Corpuscular Hemoglobin 31.0, Mean Corpuscular Hemoglobin Concent 31.1L, Red Cell Distribution Width 15.1H, Platelet Count 140#L, Mean Platelet Volume 6.8, Neutrophils (%) (Auto) , Lymphocytes (%) (Auto) , Monocytes (%) (Auto) , Eosinophils (%) (Auto) , Basophils (%) (Auto) , Differential Total Cells Counted 100, Neutrophils % (Manual) 92H, Lymphocytes % (Manual) 5L, Monocytes % (Manual) 3, Eosinophils % (Manual) 0, Basophils % (Manual) 0, Band Neutrophils 0, Platelet Estimate DecreasedL, Platelet Morphology Normal, Anisocytosis 1+, Sodium Level 144, Potassium Level 4.8, Chloride Level 106, Carbon Dioxide Level 37H, Anion Gap 2L, Blood Urea Nitrogen 23H, Creatinine 0.2#L, Estimat Glomerular Filtration Rate > 60, Glucose Level 204H, Calcium Level 8.2L, Total Bilirubin 0.7, Aspartate Amino Transf (AST/SGOT) 119H, Alanine Aminotransferase (ALT/SGPT) 50, Alkaline Phosphatase 85, Total Protein 5.9L, Albumin 1.5L, Globulin 4.4, Albumin/Globulin Ratio 0.3L, Vancomycin Level Trough 12.8H 08/09/20 05:14: POC Whole Blood Glucose 209H Current Medications Medications (Trade) Dose Ordered Sig/Milagro Route PRN Reason Start Time Stop Time Status Last Admin Dose Admin Acetaminophen (Tylenol) 650 mg Q4H PRN RECTAL Mild Pain (Pain Scale 1-3) 07/24/20 18:15 08/23/20 18:14 07/25/20 11:49 Acetaminophen (Tylenol) 650 mg Q6H PRN NG Temp >100.5 07/26/20 08:30 08/25/20 08:29 08/03/20 09:36 Acetaminophen (Tylenol) 650 mg Q6H PRN NG Mild Pain (Pain Scale 1-3) 07/26/20 08:30 08/25/20 08:29 08/04/20 17:26 Ascorbic Acid (Vitamin C) 500 mg EVERY 12 HOURS NG 07/26/20 21:00 08/10/20 08:59 08/09/20 09:38 Chlorhexidine Gluconate (Marycarmen-Hex 2%) 1 applic DAILY@2000 TOPIC 07/20/20 20:00 10/18/20 19:59 08/08/20 20:00 Dextrose (Dextrose 50%) 25 ml Q30M PRN IV Hypoglycemia 07/23/20 13:15 10/21/20 13:14 Dextrose (Dextrose 50%) 50 ml Q30M PRN IV Hypoglycemia 07/23/20 13:15 10/21/20 13:14 Dextrose/Sodium Chloride 1,000 ml @ 100 mls/hr Q10H PRN IV WHILE PRONING ONLY 07/24/20 17:45 08/23/20 17:44 07/24/20 18:01 Docusate Sodium (Colace) 100 mg EVERY 12 HOURS NG 07/27/20 21:00 08/26/20 20:59 08/09/20 09:38 Famotidine (Pepcid I.v.) 20 mg Q12HR IVP 08/04/20 21:00 09/03/20 20:59 08/09/20 09:38 Fluconazole (Diflucan) 100 mg Q24H NG 08/08/20 20:00 08/15/20 19:59 08/08/20 20:00 Insulin Aspart (NovoLOG) EVERY 6 HOURS SUBQ 07/28/20 00:00 10/21/20 15:59 08/09/20 12:54 Insulin Detemir (Levemir) 26 units EVERY 12 HOURS SUBQ 07/26/20 09:00 10/20/20 08:59 08/09/20 09:46 Methylprednisolone Sodium Succinate (Solu-MEDROL) 10 mg DAILY IVP 08/13/20 09:00 08/14/20 09:01 Methylprednisolone Sodium Succinate (Solu-MEDROL) 20 mg DAILY IVP 08/11/20 09:00 08/12/20 09:01 Methylprednisolone Sodium Succinate (Solu-MEDROL) 30 mg DAILY IVP 08/09/20 09:00 08/10/20 09:01 08/09/20 09:38 Midazolam HCl 100 mg/Sodium Chloride 200 ml @ 0 mls/hr Q24H IV 08/07/20 17:00 08/10/20 06:00 08/09/20 10:00 Piperacillin Sod/ Tazobactam Sod 3.375 gm/Sodium Chloride 110 ml @ 27.5 mls/hr EVERY 8 HOURS IVPB 08/09/20 11:30 08/14/20 11:29 08/09/20 12:23 Promethazine HCl/ Codeine (Phenergan with Codeine) 5 ml Q4H PRN ORAL For Cough 07/11/20 15:15 08/10/20 15:14 07/26/20 18:26 Vitamin B Complex (Vitamin B Complex) 1 tab DAILY NG 07/24/20 09:00 10/09/20 08:59 08/09/20 09:38 Vitamin D (Vitamin D) 1,000 unit BEDTIME GT 07/27/20 21:00 08/13/20 09:29 08/08/20 21:00 Assessment/Plan Assessment/Plan acute hypoxemic respiratory failure COVID pneumonia Asthma elevated liver enzymes DNR ARDS with fibrosing phase pneumothorax elevated TG PLAN borderline oxygen saturation/ not improved overall CT per surgery needs trach for chronic vent management---reduce PEEP as able- currently on 85% and 16 monitor ABG respiratory care ID noted DVT prophylaxis prognosis poor overall monitor respiratory status for change doubt will see improvement in oxygen needs medications/laboratory data/nursing notes/ICU care reviewed in detail note reviewed and edited care discussed with RN and RT ICU time spent >40 minutes Elfego Price MD Aug 09, 2020 17:11
[2020-08-09] MEDS ORDERED: D5 1/2NS 1000ml IV ONE (17:36)
[2020-08-09] MEDS ORDERED: Sterile Water Irrig 1000ml IRRIG ONE (17:36)
[2020-08-09] MEDS ORDERED: Tubing IV Secondary IV ONE (17:36)
[2020-08-09] MEDS ORDERED: NS 275ml ONE (17:36)
[2020-08-09] MEDS: Acetaminophen 650mg/20.3ml NG PRN (18:15)
--- NOTE | 2020-08-09 18:15 | NUR ---
NURSE NOTES: Tylenol was administered per PRN order for pain. Pt was also placed on cooling blanket to regulate body temps since current Temp/rectal is 100.7F. Versed drip has been titrated up starting at 1700 to reach/maintain -2 light sedation RASS score.
--- NOTE | 2020-08-09 19:15 | NUR ---
NURSE HAND-OFF REPORT: Latest Vital Signs: Temperature 97.9 , Pulse 120 , B/P 133 /85 , Respiratory Rate 25 , O2 SAT 85 , Mechanical Ventilator Vital Sign Comment: Remains on Versed drip, current rate 10mg/hr to maintain -2 light sedation. EKG Rhythm: Sinus Tachycardia Rhythm change?: N MD Notified?: Ildefonso Diana at bedside for re-intubation MD Response: Latest Bradley Fall Score: 50 Fall Risk: High Risk Safety Measures: Call light Within Reach, Bed Alarm Zone 1, Side Rails Side Rails x3, Bed position Low and Locked. Fall Precautions: Yellow Socks Yellow Gown Door Sign Patient Fall Education Report given to Patt THAPA. Endorsed plan of care.
--- NOTE | 2020-08-09 19:16 | NUR ---
NURSE NOTES: Report received from ELIER Martin. Upon assessment pt is sedated with Score of -2 RASS; PERRLA. Pt on Vent saturating 98% on settings of AC 26 / Vt 500 / PEEP 16 and fiO2 of 100% Vitals WNL. Afebrile on cooling blanket 97.9 F rectally. Pt running 2cal at 30 with 0 residual. Chest tube patent and intact. DANIEL PICC running Versed at 10 mg/hr. Biswas draining well to gravity. Side rails up x3. Bed kept in lowest and locked position. Bed alarm on. Will continue to monitor.
--- NOTE | 2020-08-09 21:15 | Surgery Progress Note ---
Surgery Progress Note Subjective Procedure Performed right chest tube insertion Additional Comments ill appearing on support no n/v labs noted Objective Last 24 Hour Vital Signs Date Time Temp Pulse Resp B/P (MAP) Pulse Ox O2 Delivery O2 Flow Rate FiO2 08/09/20 19:00 22 Mechanical Ventilator 100 08/09/20 19:00 97.9 120 25 133/85 (101) 85 08/09/20 18:45 25 Mechanical Ventilator 100 08/09/20 18:45 98.0 08/09/20 18:37 126 29 100 08/09/20 18:30 25 Mechanical Ventilator 100 08/09/20 18:15 22 Mechanical Ventilator 100 08/09/20 18:00 24 100 08/09/20 17:45 22 Mechanical Ventilator 100 08/09/20 17:30 24 Mechanical Ventilator 100 08/09/20 17:15 24 Mechanical Ventilator 100 08/09/20 17:00 26 Mechanical Ventilator 100 08/09/20 17:00 141 31 144/83 (103) 87 08/09/20 16:30 97.1 139 34 144/83 (103) 85 08/09/20 16:00 140 08/09/20 16:00 137 35 145/96 (112) 85 08/09/20 16:00 22 Mechanical Ventilator 100 08/09/20 16:00 Mechanical Ventilator 08/09/20 16:00 85 08/09/20 15:00 128 31 136/87 (103) 91 08/09/20 15:00 24 Mechanical Ventilator 100 08/09/20 14:00 121 30 135/81 (99) 94 08/09/20 14:00 30 Mechanical Ventilator 100 08/09/20 13:30 125 30 142/94 (110) 95 08/09/20 13:13 123 28 100 08/09/20 13:13 123 28 98 Mechanical Ventilator 100 08/09/20 13:00 26 Mechanical Ventilator 100 08/09/20 13:00 120 28 127/78 (94) 93 08/09/20 12:30 115 27 117/81 (93) 94 08/09/20 12:00 110 26 143/91 (108) 94 08/09/20 12:00 Mechanical Ventilator 08/09/20 12:00 24 Mechanical Ventilator 85 08/09/20 12:00 85 08/09/20 12:00 122 08/09/20 11:30 111 27 136/91 (106) 94 08/09/20 11:00 102 21 130/88 (102) 96 08/09/20 11:00 22 Mechanical Ventilator 85 08/09/20 10:30 96 18 129/89 (102) 97 08/09/20 10:00 89 16 129/85 (100) 98 08/09/20 10:00 16 Mechanical Ventilator 85 08/09/20 10:00 16 Mechanical Ventilator 85 08/09/20 09:30 88 14 124/86 (99) 98 08/09/20 09:00 82 14 120/71 (87) 98 08/09/20 09:00 20 Mechanical Ventilator 85 08/09/20 09:00 20 Mechanical Ventilator 85 08/09/20 09:00 20 Mechanical Ventilator 85 08/09/20 09:00 20 Mechanical Ventilator 85 08/09/20 09:00 20 Mechanical Ventilator 85 08/09/20 08:30 79 11 119/83 (95) 98 08/09/20 08:00 Mechanical Ventilator 08/09/20 08:00 85 08/09/20 08:00 24 Mechanical Ventilator 85 08/09/20 08:00 89 08/09/20 08:00 97.6 91 10 131/87 (102) 98 08/09/20 07:26 86 28 85 08/09/20 07:00 88 14 134/87 (103) 100 08/09/20 07:00 26 Mechanical Ventilator 85 08/09/20 06:00 26 Mechanical Ventilator 100 08/09/20 06:00 94.0 87 14 125/84 (98) 08/09/20 05:30 92 14 130/85 (100) 08/09/20 05:00 85 08/09/20 05:00 26 Mechanical Ventilator 100 08/09/20 05:00 96 14 124/86 (99) 08/09/20 04:30 97 26 123/84 (97) 96 08/09/20 04:00 100 08/09/20 04:00 26 Mechanical Ventilator 100 08/09/20 04:00 Mechanical Ventilator 08/09/20 04:00 97.0 102 26 128/87 (101) 93 08/09/20 04:00 98 08/09/20 03:45 26 Mechanical Ventilator 100 08/09/20 03:30 98 26 119/83 (95) 93 08/09/20 03:30 97 29 100 08/09/20 03:00 26 Mechanical Ventilator 26 08/09/20 03:00 96 26 111/97 (102) 93 08/09/20 02:30 102 26 142/86 (104) 95 08/09/20 02:00 26 Mechanical Ventilator 100 08/09/20 02:00 103 26 132/95 (107) 95 08/09/20 01:30 96 26 111/86 (94) 95 08/09/20 01:00 26 Mechanical Ventilator 100 08/09/20 01:00 102 26 95/77 (83) 95 08/09/20 00:30 104 26 121/79 (93) 95 08/09/20 00:27 26 Mechanical Ventilator 100 08/09/20 00:00 100 08/09/20 00:00 26 Mechanical Ventilator 100 08/09/20 00:00 Mechanical Ventilator 08/09/20 00:00 124 08/09/20 00:00 99.0 105 26 129/91 (104) 100 08/08/20 23:45 26 Mechanical Ventilator 100 08/08/20 23:09 120 27 100 08/08/20 23:00 26 Mechanical Ventilator 100 08/08/20 23:00 124 26 139/87 (104) 100 08/08/20 22:30 124 24 140/91 (107) 97 08/08/20 22:00 122 25 149/82 (104) 95 08/08/20 22:00 26 Mechanical Ventilator 100 08/08/20 21:30 130 26 132/93 (106) 95 I&O Intake and Output 08/08/20 08/09/20 19:00 07:00 Intake Total 1450 ml 899.5 ml Output Total 300 ml 550 ml Balance 1150 ml 349.5 ml Free Water 180 ml 30 ml IV Total 920 ml 509.5 ml Tube Feeding 350 ml 360 ml Output Urine Total 300 ml 550 ml Dressing: saturated Drains: other Cardiovascular: RSR, other Respiratory: decreased breath sounds, other Abdomen: non-tender, present bowel sounds Extremities: no tenderness, no cyanosis Laboratory Tests Test 08/08/20 21:24 08/09/20 00:16 08/09/20 04:00 08/09/20 05:14 POC Whole Blood Glucose 221 MG/DL (74-106) H 209 MG/DL (74-106) H 209 MG/DL (74-106) H White Blood Count 16.3 K/UL (4.8-10.8) H Red Blood Count 3.85 M/UL (4.70-6.10) L Hemoglobin 11.9 G/DL (14.2-18.0) L Hematocrit 38.2 % (42.0-52.0) L Mean Corpuscular Volume 99 FL (80-99) Mean Corpuscular Hemoglobin 31.0 PG (27.0-31.0) Mean Corpuscular Hemoglobin Concent 31.1 G/DL (32.0-36.0) L Red Cell Distribution Width 15.1 % (11.6-14.8) H Platelet Count 140 K/UL (150-450) #L Mean Platelet Volume 6.8 FL (6.5-10.1) Neutrophils (%) (Auto) % (45.0-75.0) Lymphocytes (%) (Auto) % (20.0-45.0) Monocytes (%) (Auto) % (1.0-10.0) Eosinophils (%) (Auto) % (0.0-3.0) Basophils (%) (Auto) % (0.0-2.0) Differential Total Cells Counted 100 Neutrophils % (Manual) 92 % (45-75) H Lymphocytes % (Manual) 5 % (20-45) L Monocytes % (Manual) 3 % (1-10) Eosinophils % (Manual) 0 % (0-3) Basophils % (Manual) 0 % (0-2) Band Neutrophils 0 % (0-8) Platelet Estimate Decreased L Platelet Morphology Normal Anisocytosis 1+ Sodium Level 144 MMOL/L (136-145) Potassium Level 4.8 MMOL/L (3.5-5.1) Chloride Level 106 MMOL/L (98-107) Carbon Dioxide Level 37 MMOL/L (21-32) H Anion Gap 2 mmol/L (5-15) L Blood Urea Nitrogen 23 mg/dL (7-18) H Creatinine 0.2 MG/DL (0.55-1.30) #L Estimat Glomerular Filtration Rate > 60 mL/min (>60) Glucose Level 204 MG/DL (74-106) H Calcium Level 8.2 MG/DL (8.5-10.1) L Total Bilirubin 0.7 MG/DL (0.2-1.0) Aspartate Amino Transf (AST/SGOT) 119 U/L (15-37) H Alanine Aminotransferase (ALT/SGPT) 50 U/L (12-78) Alkaline Phosphatase 85 U/L (46-116) Total Protein 5.9 G/DL (6.4-8.2) L Albumin 1.5 G/DL (3.4-5.0) L Globulin 4.4 g/dL Albumin/Globulin Ratio 0.3 (1.0-2.7) L Vancomycin Level Trough 12.8 ug/mL (5.0-12.0) H Plan Problems: (1) Pneumothorax Assessment & Plan: 30M covid on vent peep 16 fi02 100 right ptx s/p right chest tube ett complication replaced 07/01 chest tube vac replaced this AM as well given malfunction high risk low tv cxr noted ill appearing tube and lines checked will need to monitor closely unable to wean vent at this time cont current care plan (2) Respiratory failure (3) Coronavirus infection (4) Diabetes (5) Hypercapnia (6) Hypoxia (7) Asthma (8) HTN (hypertension) (9) Obesity (BMI 30-39.9) (10) Acute respiratory distress syndrome (ARDS) due to 2019-nCoV (11) Acute hypoxemic respiratory failure due to COVID-19 (12) Bradycardia (13) Laceration Mulugeta Butler Aug 09, 2020 21:15
[2020-08-09] MEDS: Vitamin D 1000 units Tab GT SCH (21:33)
[2020-08-09] MEDS: Dyna-Hex 2% Top Sol 2oz TOPIC SCH (21:36)
[2020-08-09] MEDS: Fluconazole 100mg tab NG SCH (21:36)
--- NOTE | 2020-08-09 22:30 | NUR ---
NURSE NOTES: Pt RASS deviated to -3. Titrated Versed from 10 mg/hr to 5 mg/hr to achieve RASS score of -2 as ordered. No cardiopulmonary distress noted. Will monitor.
[2020-08-10] VITALS (29 sets, daily range): BP systolic 109–175; BP diastolic 58–103
--- NOTE | 2020-08-10 01:35 | Cardiology Progress Note ---
Subjective DATE OF SERVICE: Aug 10, 2020 Condition remains critical and prognosis guarded S/P chest tube for PTX He remains on full vent support, on high flow FIO2 - orally intubated. CXR (08/08) near resolution of rt PNX; no change bilat infiltrates Objective Last 24 Hour Vital Signs Date Time Temp Pulse Resp B/P (MAP) Pulse Ox O2 Delivery O2 Flow Rate FiO2 08/09/20 23:00 83 25 129/77 (94) 98 08/09/20 22:30 87 26 100 08/09/20 22:30 87 19 129/65 (86) 98 08/09/20 22:00 82 21 130/81 (97) 98 08/09/20 21:00 85 08/09/20 21:00 91 18 113/68 (83) 95 08/09/20 20:00 98.9 115 22 132/89 (103) 98 08/09/20 20:00 Mechanical Ventilator 08/09/20 19:00 22 Mechanical Ventilator 100 08/09/20 19:00 97.9 120 25 133/85 (101) 85 08/09/20 18:45 25 Mechanical Ventilator 100 08/09/20 18:45 98.0 08/09/20 18:37 126 29 100 08/09/20 18:30 25 Mechanical Ventilator 100 08/09/20 18:15 22 Mechanical Ventilator 100 08/09/20 18:00 24 100 08/09/20 17:45 22 Mechanical Ventilator 100 08/09/20 17:30 24 Mechanical Ventilator 100 08/09/20 17:15 24 Mechanical Ventilator 100 08/09/20 17:00 26 Mechanical Ventilator 100 08/09/20 17:00 141 31 144/83 (103) 87 08/09/20 16:30 97.1 139 34 144/83 (103) 85 08/09/20 16:00 140 08/09/20 16:00 137 35 145/96 (112) 85 08/09/20 16:00 22 Mechanical Ventilator 100 08/09/20 16:00 Mechanical Ventilator 08/09/20 16:00 85 08/09/20 15:00 128 31 136/87 (103) 91 08/09/20 15:00 24 Mechanical Ventilator 100 08/09/20 14:00 121 30 135/81 (99) 94 08/09/20 14:00 30 Mechanical Ventilator 100 08/09/20 13:30 125 30 142/94 (110) 95 08/09/20 13:13 123 28 100 08/09/20 13:13 123 28 98 Mechanical Ventilator 100 08/09/20 13:00 26 Mechanical Ventilator 100 08/09/20 13:00 120 28 127/78 (94) 93 08/09/20 12:30 115 27 117/81 (93) 94 08/09/20 12:00 110 26 143/91 (108) 94 08/09/20 12:00 Mechanical Ventilator 08/09/20 12:00 24 Mechanical Ventilator 85 08/09/20 12:00 85 08/09/20 12:00 122 08/09/20 11:30 111 27 136/91 (106) 94 08/09/20 11:00 102 21 130/88 (102) 96 08/09/20 11:00 22 Mechanical Ventilator 85 08/09/20 10:30 96 18 129/89 (102) 97 08/09/20 10:00 89 16 129/85 (100) 98 08/09/20 10:00 16 Mechanical Ventilator 85 08/09/20 10:00 16 Mechanical Ventilator 85 08/09/20 09:30 88 14 124/86 (99) 98 08/09/20 09:00 82 14 120/71 (87) 98 08/09/20 09:00 20 Mechanical Ventilator 85 08/09/20 09:00 20 Mechanical Ventilator 85 08/09/20 09:00 20 Mechanical Ventilator 85 08/09/20 09:00 20 Mechanical Ventilator 85 08/09/20 09:00 20 Mechanical Ventilator 85 08/09/20 08:30 79 11 119/83 (95) 98 08/09/20 08:00 Mechanical Ventilator 08/09/20 08:00 85 08/09/20 08:00 24 Mechanical Ventilator 85 08/09/20 08:00 89 08/09/20 08:00 97.6 91 10 131/87 (102) 98 08/09/20 07:26 86 28 85 08/09/20 07:00 88 14 134/87 (103) 100 08/09/20 07:00 26 Mechanical Ventilator 85 08/09/20 06:00 26 Mechanical Ventilator 100 08/09/20 06:00 94.0 87 14 125/84 (98) 08/09/20 05:30 92 14 130/85 (100) 08/09/20 05:00 85 08/09/20 05:00 26 Mechanical Ventilator 100 08/09/20 05:00 96 14 124/86 (99) 08/09/20 04:30 97 26 123/84 (97) 96 08/09/20 04:00 100 08/09/20 04:00 26 Mechanical Ventilator 100 08/09/20 04:00 Mechanical Ventilator 08/09/20 04:00 97.0 102 26 128/87 (101) 93 08/09/20 04:00 98 08/09/20 03:45 26 Mechanical Ventilator 100 08/09/20 03:30 98 26 119/83 (95) 93 08/09/20 03:30 97 29 100 08/09/20 03:00 26 Mechanical Ventilator 26 08/09/20 03:00 96 26 111/97 (102) 93 08/09/20 02:30 102 26 142/86 (104) 95 08/09/20 02:00 26 Mechanical Ventilator 100 08/09/20 02:00 103 26 132/95 (107) 95 HEENT: Orally intubated, Mechanically Ventilated, Thin secretions ET Tube RHYTHM: SB LUNGS: bilateral rhonchi, other - right chest tube CARDIAC: regular rhythm, normal S1 and S2, bradycardia ABDOMEN: normal bowel sounds, non tender, soft EXTREMITIES: normal range of motion, non-tender Laboratory Tests Test 08/09/20 04:00 08/09/20 05:14 08/09/20 21:52 White Blood Count 16.3 K/UL (4.8-10.8) H Red Blood Count 3.85 M/UL (4.70-6.10) L Hemoglobin 11.9 G/DL (14.2-18.0) L Hematocrit 38.2 % (42.0-52.0) L Mean Corpuscular Volume 99 FL (80-99) Mean Corpuscular Hemoglobin 31.0 PG (27.0-31.0) Mean Corpuscular Hemoglobin Concent 31.1 G/DL (32.0-36.0) L Red Cell Distribution Width 15.1 % (11.6-14.8) H Platelet Count 140 K/UL (150-450) #L Mean Platelet Volume 6.8 FL (6.5-10.1) Neutrophils (%) (Auto) % (45.0-75.0) Lymphocytes (%) (Auto) % (20.0-45.0) Monocytes (%) (Auto) % (1.0-10.0) Eosinophils (%) (Auto) % (0.0-3.0) Basophils (%) (Auto) % (0.0-2.0) Differential Total Cells Counted 100 Neutrophils % (Manual) 92 % (45-75) H Lymphocytes % (Manual) 5 % (20-45) L Monocytes % (Manual) 3 % (1-10) Eosinophils % (Manual) 0 % (0-3) Basophils % (Manual) 0 % (0-2) Band Neutrophils 0 % (0-8) Platelet Estimate Decreased L Platelet Morphology Normal Anisocytosis 1+ Sodium Level 144 MMOL/L (136-145) Potassium Level 4.8 MMOL/L (3.5-5.1) Chloride Level 106 MMOL/L (98-107) Carbon Dioxide Level 37 MMOL/L (21-32) H Anion Gap 2 mmol/L (5-15) L Blood Urea Nitrogen 23 mg/dL (7-18) H Creatinine 0.2 MG/DL (0.55-1.30) #L Estimat Glomerular Filtration Rate > 60 mL/min (>60) Glucose Level 204 MG/DL (74-106) H Calcium Level 8.2 MG/DL (8.5-10.1) L Total Bilirubin 0.7 MG/DL (0.2-1.0) Aspartate Amino Transf (AST/SGOT) 119 U/L (15-37) H Alanine Aminotransferase (ALT/SGPT) 50 U/L (12-78) Alkaline Phosphatase 85 U/L (46-116) Total Protein 5.9 G/DL (6.4-8.2) L Albumin 1.5 G/DL (3.4-5.0) L Globulin 4.4 g/dL Albumin/Globulin Ratio 0.3 (1.0-2.7) L Vancomycin Level Trough 12.8 ug/mL (5.0-12.0) H POC Whole Blood Glucose 209 MG/DL (74-106) H Pending Microbiology Date/Time Source Procedure Growth Status 08/07/20 04:00 Sputum Gram Stain - Final Resulted 08/07/20 04:00 Sputum Culture - Preliminary Gram Negative Tobi Resulted Assessment/Plan Assessment/Plan Covid 19 PNA s/p PTX with right chest tube Secondary sinus tachycardia K.pneumonia PNA Acute respiratory failure with severe Hypoxia - slightly improved over past day. Sinus bradycardia resolved Diabetes mellitus with hyperglycemia due to steroids Transaminitis Mod protein/calorie malnutrition Dehydration/hypernatremia CRITICAL & GUARDED Chest tube management Abx per ID Continuous cardiac monitoring Anticoagulation and steroid rx Titrate oxygen as able; prone. Vent settings adjusted by pulmonary; still cannot tolerate less than 100% FIO2. Anti-viral rx Protein suppl Free water replacement Insulin cov'g by SS; levemir dose advanced further. Chuck Swain MD Aug 10, 2020 01:35
[2020-08-10] MEDS: NovoLOG Insulin Flexpen SUBQ SCH ×4 (02:07→17:38)
--- NOTE | 2020-08-10 04:00 | NUR ---
NURSE NOTES: Pt in stable condition with RASS score of -2. Bed bath and oral care provided. Will monitor.
[2020-08-10] MEDS: Midazolam HCl 50mg/10ml vial 100 MG in NS 180 ML IV SCH ×2 (04:27→17:01)
[2020-08-10] MEDS: Piperacillin/Tazobactam 3.375 GM in NS 110 ML IVPB SCH ×3 (05:32→20:55)
[2020-08-10] MEDS: D5 1/2NS 1,000 ML IV PRN (05:33)
[2020-08-10 05:45] LABS: HEMATOCRIT 35.2 % (42.0-52.0); HEMOGLOBIN 11.1 G/DL (14.2-18.0); MEAN CORPUSCULAR VOLUME 96 FL (80-99); PLATELET COUNT 285 K/UL (150-450); RED BLOOD COUNT 3.66 M/UL (4.70-6.10); RED CELL DISTRIBUTION WIDTH 14.8 % (11.6-14.8); WHITE BLOOD COUNT 14.5 K/UL (4.8-10.8)
[2020-08-10 06:12] LABS: ALANINE AMINOTRANSFERASE 51 U/L (12-78); ALBUMIN 1.5 G/DL (3.4-5.0); ALBUMIN/GLOBULIN RATIO 0.4 (1.0-2.7); ALKALINE PHOSPHATASE 93 U/L (46-116); ANION GAP 3 mmol/L (5-15); ASPARTATE AMINO TRANSFERASE 85 U/L (15-37); BILIRUBIN,TOTAL 0.4 MG/DL (0.2-1.0); BLOOD UREA NITROGEN 17 mg/dL (7-18); CALCIUM 8.6 MG/DL (8.5-10.1); CARBON DIOXIDE 38 MMOL/L (21-32); CHLORIDE 106 MMOL/L (98-107); CREATININE 0.4 MG/DL (0.55-1.30); POTASSIUM 3.7 MMOL/L (3.5-5.1); SODIUM 147 MMOL/L (136-145)
--- NOTE | 2020-08-10 07:00 | NUR ---
NURSE HAND-OFF REPORT: Latest Vital Signs: Temperature 98.1 , Pulse 109 , B/P 117 /64 , Respiratory Rate 19 , O2 SAT 100 , Mechanical Ventilator, O2 Flow Rate . Vital Sign Comment: WNL EKG Rhythm: Sinus Rhythm Rhythm change?: N MD Notified?: Ildefonso Diana at bedside for re-intubation MD Response: Latest Bradley Fall Score: 50 Fall Risk: High Risk Safety Measures: Call light Within Reach, Bed Alarm Zone 1, Side Rails Side Rails x3, Bed position Low and Locked. Fall Precautions: Yellow Socks Yellow Gown Door Sign Patient Fall Education Report given to ELIER Serrano.
--- NOTE | 2020-08-10 07:35 | NUR ---
NURSE NOTES: Report received from ELIER Garcia. Pt is sedated with Score of -2 RASS. Pt is orally intubated ETT 7.5, 25cm @ the lip line. Vent settings AC 26 / TV 500 / PEEP 10 and fiO2 of 100%; O2sat reads 99% on android software engineer. Pt remains Afebrile on a cooling blanket. NGT intact, running 2cal at 30mL/hr. Upper Chest tube patent and intact. DANIEL PICC running Versed at 5 mg/hr. Biswas draining well with gravity to urometer. Side rails up x3. Bed kept in lowest and locked position. Bed alarm on. Will continue to monitor.
--- NOTE | 2020-08-10 07:47 | General Progress Note ---
Subjective ROS Limited/Unobtainable: Yes Constitutional: Reports: malaise, weakness HEENT: Reports: no symptoms Cardiovascular: Reports: no symptoms Respiratory: Reports: shortness of breath Gastrointestinal/Abdominal: Reports: difficulty swallowing Genitourinary: Reports: no symptoms Neurologic/Psychiatric: Reports: no symptoms Endocrine: Reports: no symptoms Hematologic/Lymphatic: Reports: no symptoms Allergies: Coded Allergies: No Known Allergies (Unverified , 03/08/17) All Systems: reviewed and negative except above Subjective no change. remains orally intubated. per staff responsive to stimuli. no bleeding. able to wean peep down 10. fio2 100%. am abg pending. Objective Last 24 Hour Vital Signs Date Time Temp Pulse Resp B/P (MAP) Pulse Ox O2 Delivery O2 Flow Rate FiO2 08/10/20 06:00 100 16 133/73 (93) 100 08/10/20 05:00 18 100 08/10/20 05:00 107 24 135/84 (101) 96 08/10/20 04:27 20 100 08/10/20 04:00 98.1 108 22 137/85 (102) 97 08/10/20 04:00 113 08/10/20 04:00 18 100 08/10/20 04:00 Mechanical Ventilator 08/10/20 04:00 100 08/10/20 03:00 105 28 100 08/10/20 03:00 16 100 08/10/20 03:00 102 16 138/77 (97) 96 08/10/20 02:00 16 Mechanical Ventilator 100 08/10/20 02:00 90 16 110/58 (75) 97 08/10/20 01:00 97 16 128/75 (92) 97 08/10/20 01:00 18 Mechanical Ventilator 100 08/10/20 00:00 Mechanical Ventilator 08/10/20 00:00 89 08/10/20 00:00 100 08/10/20 00:00 97.9 86 24 131/82 (98) 99 08/10/20 00:00 16 Mechanical Ventilator 100 08/09/20 23:00 83 25 129/77 (94) 98 08/09/20 23:00 18 Mechanical Ventilator 100 08/09/20 22:30 87 26 100 08/09/20 22:30 87 19 129/65 (86) 98 08/09/20 22:00 82 21 130/81 (97) 98 08/09/20 22:00 26 Mechanical Ventilator 100 08/09/20 21:45 26 Mechanical Ventilator 100 08/09/20 21:00 85 08/09/20 21:00 26 Mechanical Ventilator 100 08/09/20 21:00 91 18 113/68 (83) 95 08/09/20 20:00 26 Mechanical Ventilator 100 08/09/20 20:00 98.9 115 22 132/89 (103) 98 08/09/20 20:00 Mechanical Ventilator 08/09/20 19:00 22 Mechanical Ventilator 100 08/09/20 19:00 97.9 120 25 133/85 (101) 85 08/09/20 18:45 25 Mechanical Ventilator 100 08/09/20 18:45 98.0 08/09/20 18:37 126 29 100 08/09/20 18:30 25 Mechanical Ventilator 100 08/09/20 18:15 22 Mechanical Ventilator 100 08/09/20 18:00 24 100 08/09/20 17:45 22 Mechanical Ventilator 100 08/09/20 17:30 24 Mechanical Ventilator 100 08/09/20 17:15 24 Mechanical Ventilator 100 08/09/20 17:00 26 Mechanical Ventilator 100 08/09/20 17:00 141 31 144/83 (103) 87 08/09/20 16:30 97.1 139 34 144/83 (103) 85 08/09/20 16:00 140 08/09/20 16:00 137 35 145/96 (112) 85 08/09/20 16:00 22 Mechanical Ventilator 100 08/09/20 16:00 Mechanical Ventilator 08/09/20 16:00 85 08/09/20 15:00 128 31 136/87 (103) 91 08/09/20 15:00 24 Mechanical Ventilator 100 08/09/20 14:00 121 30 135/81 (99) 94 08/09/20 14:00 30 Mechanical Ventilator 100 08/09/20 13:30 125 30 142/94 (110) 95 08/09/20 13:13 123 28 100 08/09/20 13:13 123 28 98 Mechanical Ventilator 100 08/09/20 13:00 26 Mechanical Ventilator 100 08/09/20 13:00 120 28 127/78 (94) 93 08/09/20 12:30 115 27 117/81 (93) 94 08/09/20 12:00 110 26 143/91 (108) 94 08/09/20 12:00 Mechanical Ventilator 08/09/20 12:00 24 Mechanical Ventilator 85 08/09/20 12:00 85 08/09/20 12:00 122 08/09/20 11:30 111 27 136/91 (106) 94 08/09/20 11:00 102 21 130/88 (102) 96 08/09/20 11:00 22 Mechanical Ventilator 85 08/09/20 10:30 96 18 129/89 (102) 97 08/09/20 10:00 89 16 129/85 (100) 98 08/09/20 10:00 16 Mechanical Ventilator 85 08/09/20 10:00 16 Mechanical Ventilator 85 08/09/20 09:30 88 14 124/86 (99) 98 08/09/20 09:00 82 14 120/71 (87) 98 08/09/20 09:00 20 Mechanical Ventilator 85 08/09/20 09:00 20 Mechanical Ventilator 85 08/09/20 09:00 20 Mechanical Ventilator 85 08/09/20 09:00 20 Mechanical Ventilator 85 08/09/20 09:00 20 Mechanical Ventilator 85 08/09/20 08:30 79 11 119/83 (95) 98 08/09/20 08:00 Mechanical Ventilator 08/09/20 08:00 85 08/09/20 08:00 24 Mechanical Ventilator 85 08/09/20 08:00 89 08/09/20 08:00 97.6 91 10 131/87 (102) 98 Intake and Output 08/09/20 08/10/20 19:00 07:00 Intake Total 1220.0 ml 652.3 ml Output Total 485 ml 380 ml Balance 735.0 ml 272.3 ml Free Water 260 ml 60 ml IV Total 600.0 ml 262.3 ml Tube Feeding 360 ml 330 ml Output Urine Total 465 ml 380 ml Chest Tube Drainage Total 20 ml # Bowel Movements 1 3 Laboratory Tests 08/09/20 21:52: POC Whole Blood Glucose [Pending] 08/10/20 04:00: White Blood Count 14.5H, Red Blood Count 3.66L, Hemoglobin 11.1L, Hematocrit 35.2L, Mean Corpuscular Volume 96, Mean Corpuscular Hemoglobin 30.3, Mean Corpuscular Hemoglobin Concent 31.5L, Red Cell Distribution Width 14.8, Platelet Count 285#, Mean Platelet Volume 7.6, Neutrophils (%) (Auto) , Lymphocytes (%) (Auto) , Monocytes (%) (Auto) , Eosinophils (%) (Auto) , Basophils (%) (Auto) , Neutrophils % (Manual) [Pending], Lymphocytes % (Manual) [Pending], Platelet Estimate [Pending], Platelet Morphology [Pending], Sodium Level 147H, Potassium Level 3.7, Chloride Level 106, Carbon Dioxide Level 38H, Anion Gap 3L, Blood Urea Nitrogen 17, Creatinine 0.4#L, Estimat Glomerular Filtration Rate > 60, Glucose Level 187H, Calcium Level 8.6, Total Bilirubin 0.4, Aspartate Amino Transf (AST/SGOT) 85H, Alanine Aminotransferase (ALT/SGPT) 51, Alkaline Ph osphatase 93, C-Reactive Protein, Quantitative 15.0H, Total Protein 5.7L, A lbumin 1.5L, Globulin 4.2, Albumin/Globulin Ratio 0.4L Height (Feet): 5 Height (Inches): 6.00 Weight (Pounds): 209 Objective deferred Assessment/Plan Problem List: (1) Coronavirus infection ICD Codes: B34.2 - Coronavirus infection, unspecified SNOMED: 225716987 (2) Respiratory failure ICD Codes: J96.90 - Respiratory failure, unspecified, unspecified whether with hypoxia or hypercapnia SNOMED: 404383654 (3) Hypercapnia ICD Codes: R06.89 - Other abnormalities of breathing SNOMED: 39629497, 371850417 (4) Hypoxia ICD Codes: R09.02 - Hypoxemia SNOMED: 776031434 (5) Asthma ICD Codes: J45.909 - Unspecified asthma, uncomplicated SNOMED: 845576725, 140648535 (6) Pneumothorax ICD Codes: J93.9 - Pneumothorax, unspecified SNOMED: 94102123 Status: progressing, not improved Assessment/Plan: vent support wean fio2 and peep as able resp care/suctioning as needed monitor for bleeding. off lovenox due to oral bleeding monitor plts- trending up scd iv abx per id remains critical and guarded d/w brother- dnr but still wants all other aggressive rx attempted to transfer for higher level of care- no accepting hospitals so far Uomoto,Rolando M. MD Aug 10, 2020 07:47
[2020-08-10] MEDS: Vitamin B Complex Tab NG SCH (08:39)
[2020-08-10] MEDS: Solu-MEDROL 40mg Inj IVP SCH (08:39)
[2020-08-10] MEDS: Docusate 100mg/10ml Liq NG SCH ×2 (08:39→20:55)
[2020-08-10] MEDS: Levemir Flexpen SUBQ SCH ×2 (08:40→20:56)
--- NOTE | 2020-08-10 08:58 | NUR ---
RD ASSESSMENT & RECOMMENDATIONS SEE CARE ACTIVITY FOR COMPLETE ASSESSMENT DAILY ESTIMATED NEEDS: Needs based on Critical care 72kg abw 22-28 kcals/kg 2288-9790 total kcals 1.2-2 g protein/kg 86-144 g total protein 25-30 mL/kg 2463-1272 total fluid mLs NUTRITION DIAGNOSIS: * Swallowing difficulty R/T respiratory failure as evidenced by pt now orally intubated, NPO, now w/ NGT to LIS. * Altered nutrition related lab values r/t hyperglycemia as evidenced by BG POC glu in the 300's-> 200's, pt on Solumedrol CURRENT TF: Vital 1.2 @ 30ml/hr-now running at 20ml/hr ENTERAL NUTRITION RECOMMENDATIONS: Vital 1.2 for critical care and carb control @ goal of 55ml/hr x24 hrs to provide 1320ml, 1584kcal, 99g prot, 1071ml free water - When medically stable for feeds, initiate Vital 1.2 for critical care and carb control. - Advance as tolerated 10ml/hr q4-6 hrs to goal - Flush per , HOB over 30 degrees - Now off propofol. Advance to goal as tolerated. ADDITIONAL RECOMMENDATIONS: 1) Rec to check HgA1C for eval 2) Insulin regimen for improved BG- now on levemir + niss w/ elev BG 3) Monitor resp status, currently on high flow O2 w/ good po intake Now intubated (07/20), TF recs as above when medically appropriate 4) MONITOR NPO STATUS: TF at low rate ->BG is elevated, rec to bring under improves control prior to increasing TF to goal.
--- NOTE | 2020-08-10 09:35 | NUR ---
NURSE NOTES: Dr Price at bedside assessing pt. Updated him on pt's current condition. Informed him of this morning's ABG results. No new orders given at this time.
--- NOTE | 2020-08-10 10:52 | NUR ---
Muskrat Trapper Note: grain merchandising manager spoke with [facility] transfer [facility] patient accounting representative, [place]. He stated that they do not have any providers for ECMO.
--- NOTE | 2020-08-10 11:00 | Infectious Diseases Prog Note ---
Assessment/Plan Assessment/Plan antibiotics : zosyn, fluconazole A 1. COVID-19 pneumonia on 100 % Fi O2 of oxygen with O2 saturation 99 %. s/p ivermectin x 2 2. History of asthma. 3. Elevated liver function tests improving 4. klebsiella pneumonia 5. thrush P 1. continue zosyn 2. Continue solumedrol taper doses 3. continue fluconazole 4. Continue isolation. Subjective ROS Limited/Unobtainable: Yes Allergies: Coded Allergies: No Known Allergies (Unverified , 03/08/17) Objective Last 24 Hour Vital Signs Date Time Temp Pulse Resp B/P (MAP) Pulse Ox O2 Delivery O2 Flow Rate FiO2 08/10/20 10:00 120 28 144/81 (102) 99 08/10/20 10:00 30 Mechanical Ventilator 100 08/10/20 09:00 115 20 137/75 (95) 99 08/10/20 09:00 28 Mechanical Ventilator 100 08/10/20 08:00 97.9 113 21 127/73 (91) 99 08/10/20 08:00 31 Mechanical Ventilator 100 08/10/20 08:00 Mechanical Ventilator 08/10/20 08:00 112 08/10/20 08:00 100 08/10/20 07:30 110 29 100 08/10/20 07:00 109 19 117/64 (81) 100 08/10/20 07:00 19 100 08/10/20 06:00 20 100 08/10/20 06:00 100 16 133/73 (93) 100 08/10/20 05:00 18 100 08/10/20 05:00 107 24 135/84 (101) 96 08/10/20 04:27 20 100 08/10/20 04:00 98.1 108 22 137/85 (102) 97 08/10/20 04:00 113 08/10/20 04:00 18 100 08/10/20 04:00 Mechanical Ventilator 08/10/20 04:00 100 08/10/20 03:00 105 28 100 08/10/20 03:00 16 100 08/10/20 03:00 102 16 138/77 (97) 96 08/10/20 02:00 16 Mechanical Ventilator 100 08/10/20 02:00 90 16 110/58 (75) 97 08/10/20 01:00 97 16 128/75 (92) 97 08/10/20 01:00 18 Mechanical Ventilator 100 08/10/20 00:00 Mechanical Ventilator 08/10/20 00:00 89 08/10/20 00:00 100 08/10/20 00:00 97.9 86 24 131/82 (98) 99 08/10/20 00:00 16 Mechanical Ventilator 100 08/09/20 23:00 83 25 129/77 (94) 98 08/09/20 23:00 18 Mechanical Ventilator 100 08/09/20 22:30 87 26 100 08/09/20 22:30 87 19 129/65 (86) 98 08/09/20 22:00 82 21 130/81 (97) 98 08/09/20 22:00 26 Mechanical Ventilator 100 08/09/20 21:45 26 Mechanical Ventilator 100 08/09/20 21:00 85 08/09/20 21:00 26 Mechanical Ventilator 100 08/09/20 21:00 91 18 113/68 (83) 95 08/09/20 20:00 26 Mechanical Ventilator 100 08/09/20 20:00 98.9 115 22 132/89 (103) 98 08/09/20 20:00 Mechanical Ventilator 08/09/20 19:00 22 Mechanical Ventilator 100 08/09/20 19:00 97.9 120 25 133/85 (101) 85 08/09/20 18:45 25 Mechanical Ventilator 100 08/09/20 18:45 98.0 08/09/20 18:37 126 29 100 08/09/20 18:30 25 Mechanical Ventilator 100 08/09/20 18:15 22 Mechanical Ventilator 100 08/09/20 18:00 24 100 08/09/20 17:45 22 Mechanical Ventilator 100 08/09/20 17:30 24 Mechanical Ventilator 100 08/09/20 17:15 24 Mechanical Ventilator 100 08/09/20 17:00 26 Mechanical Ventilator 100 08/09/20 17:00 141 31 144/83 (103) 87 08/09/20 16:30 97.1 139 34 144/83 (103) 85 08/09/20 16:00 140 08/09/20 16:00 137 35 145/96 (112) 85 08/09/20 16:00 22 Mechanical Ventilator 100 08/09/20 16:00 Mechanical Ventilator 08/09/20 16:00 85 08/09/20 15:00 128 31 136/87 (103) 91 08/09/20 15:00 24 Mechanical Ventilator 100 08/09/20 14:00 121 30 135/81 (99) 94 08/09/20 14:00 30 Mechanical Ventilator 100 08/09/20 13:30 125 30 142/94 (110) 95 08/09/20 13:13 123 28 100 08/09/20 13:13 123 28 98 Mechanical Ventilator 100 08/09/20 13:00 26 Mechanical Ventilator 100 08/09/20 13:00 120 28 127/78 (94) 93 08/09/20 12:30 115 27 117/81 (93) 94 08/09/20 12:00 110 26 143/91 (108) 94 08/09/20 12:00 Mechanical Ventilator 08/09/20 12:00 24 Mechanical Ventilator 85 08/09/20 12:00 85 08/09/20 12:00 122 08/09/20 11:30 111 27 136/91 (106) 94 08/09/20 11:00 102 21 130/88 (102) 96 08/09/20 11:00 22 Mechanical Ventilator 85 Height (Feet): 5 Height (Inches): 6.00 Weight (Pounds): 209 HEENT: other - intubated Laboratory Tests Test 08/09/20 21:52 08/10/20 04:00 08/10/20 08:20 POC Whole Blood Glucose Pending White Blood Count 14.5 K/UL (4.8-10.8) H Red Blood Count 3.66 M/UL (4.70-6.10) L Hemoglobin 11.1 G/DL (14.2-18.0) L Hematocrit 35.2 % (42.0-52.0) L Mean Corpuscular Volume 96 FL (80-99) Mean Corpuscular Hemoglobin 30.3 PG (27.0-31.0) Mean Corpuscular Hemoglobin Concent 31.5 G/DL (32.0-36.0) L Red Cell Distribution Width 14.8 % (11.6-14.8) Platelet Count 285 K/UL (150-450) # Mean Platelet Volume 7.6 FL (6.5-10.1) Neutrophils (%) (Auto) % (45.0-75.0) Lymphocytes (%) (Auto) % (20.0-45.0) Monocytes (%) (Auto) % (1.0-10.0) Eosinophils (%) (Auto) % (0.0-3.0) Basophils (%) (Auto) % (0.0-2.0) Differential Total Cells Counted 100 Neutrophils % (Manual) 87 % (45-75) H Lymphocytes % (Manual) 7 % (20-45) L Monocytes % (Manual) 5 % (1-10) Eosinophils % (Manual) 0 % (0-3) Basophils % (Manual) 0 % (0-2) Band Neutrophils 1 % (0-8) Platelet Estimate Adequate Platelet Morphology Normal Hypochromasia 1+ Anisocytosis 1+ Sodium Level 147 MMOL/L (136-145) H Potassium Level 3.7 MMOL/L (3.5-5.1) Chloride Level 106 MMOL/L (98-107) Carbon Dioxide Level 38 MMOL/L (21-32) H Anion Gap 3 mmol/L (5-15) L Blood Urea Nitrogen 17 mg/dL (7-18) Creatinine 0.4 MG/DL (0.55-1.30) #L Estimat Glomerular Filtration Rate > 60 mL/min (>60) Glucose Level 187 MG/DL (74-106) H Calcium Level 8.6 MG/DL (8.5-10.1) Total Bilirubin 0.4 MG/DL (0.2-1.0) Aspartate Amino Transf (AST/SGOT) 85 U/L (15-37) H Alanine Aminotransferase (ALT/SGPT) 51 U/L (12-78) Alkaline Phosphatase 93 U/L (46-116) C-Reactive Protein, Quantitative 15.0 mg/dL (0.00-0.90) H Total Protein 5.7 G/DL (6.4-8.2) L Albumin 1.5 G/DL (3.4-5.0) L Globulin 4.2 g/dL Albumin/Globulin Ratio 0.4 (1.0-2.7) L Arterial Blood pH 7.416 (7.350-7.450) Arterial Blood Partial Pressure CO2 62.7 mmHg (35.0-45.0) *H Arterial Blood Partial Pressure O2 68.9 mmHg (75.0-100.0) L Arterial Blood HCO3 39.4 mmol/L (22.0-26.0) H Arterial Blood Oxygen Saturation 93.0 % (95-100) L Arterial Blood Base Excess 12.5 (-2-2) *H Jacob Test Positive Current Medications Medications (Trade) Dose Ordered Sig/Milagro Route PRN Reason Start Time Stop Time Status Last Admin Dose Admin Acetaminophen (Tylenol) 650 mg Q4H PRN RECTAL Mild Pain (Pain Scale 1-3) 07/24/20 18:15 08/23/20 18:14 07/25/20 11:49 Acetaminophen (Tylenol) 650 mg Q6H PRN NG Mild Pain (Pain Scale 1-3) 07/26/20 08:30 08/25/20 08:29 08/09/20 18:15 Acetaminophen (Tylenol) 650 mg Q6H PRN NG Temp >100.5 07/26/20 08:30 08/25/20 08:29 08/03/20 09:36 Chlorhexidine Gluconate (Marycarmen-Hex 2%) 1 applic DAILY@2000 TOPIC 07/20/20 20:00 10/18/20 19:59 08/09/20 21:36 Dextrose (Dextrose 50%) 25 ml Q30M PRN IV Hypoglycemia 07/23/20 13:15 10/21/20 13:14 Dextrose (Dextrose 50%) 50 ml Q30M PRN IV Hypoglycemia 07/23/20 13:15 10/21/20 13:14 Dextrose/Sodium Chloride 1,000 ml @ 100 mls/hr Q10H PRN IV WHILE PRONING ONLY 07/24/20 17:45 08/23/20 17:44 08/10/20 05:33 Docusate Sodium (Colace) 100 mg EVERY 12 HOURS NG 07/27/20 21:00 08/26/20 20:59 08/10/20 08:39 Famotidine (Pepcid I.v.) 20 mg Q12HR IVP 08/04/20 21:00 09/03/20 20:59 08/10/20 08:39 Fluconazole (Diflucan) 100 mg Q24H NG 08/08/20 20:00 08/15/20 19:59 08/09/20 21:36 Insulin Aspart (NovoLOG) EVERY 6 HOURS SUBQ 07/28/20 00:00 10/21/20 15:59 08/10/20 05:59 Insulin Detemir (Levemir) 26 units EVERY 12 HOURS SUBQ 07/26/20 09:00 10/20/20 08:59 08/10/20 08:40 Methylprednisolone Sodium Succinate (Solu-MEDROL) 10 mg DAILY IVP 08/13/20 09:00 08/14/20 09:01 Methylprednisolone Sodium Succinate (Solu-MEDROL) 20 mg DAILY IVP 08/11/20 09:00 08/12/20 09:01 Midazolam HCl 100 ml @ 0 mls/hr Q24H IV 08/10/20 22:00 08/12/20 21:59 Midazolam HCl 100 mg/Sodium Chloride 200 ml @ 0 mls/hr Q24H IV 08/07/20 17:00 08/10/20 21:59 08/10/20 04:27 Piperacillin Sod/ Tazobactam Sod 3.375 gm/Sodium Chloride 110 ml @ 27.5 mls/hr EVERY 8 HOURS IVPB 08/09/20 11:30 08/14/20 11:29 08/10/20 05:32 Promethazine HCl/ Codeine (Phenergan with Codeine) 5 ml Q4H PRN ORAL For Cough 07/11/20 15:15 08/10/20 15:14 07/26/20 18:26 Vitamin B Complex (Vitamin B Complex) 1 tab DAILY NG 07/24/20 09:00 10/09/20 08:59 08/10/20 08:39 Vitamin D (Vitamin D) 1,000 unit BEDTIME GT 07/27/20 21:00 08/13/20 09:29 08/09/20 21:33 Jose Alberto MD Aug 10, 2020 11:00
--- NOTE | 2020-08-10 11:04 | Pulmonology Progress Note ---
Subjective ROS Limited/Unobtainable: Yes Constitutional: Reports: other - hypothermic Gastrointestinal/Abdominal: Denies: nausea, vomiting, diarrhea Musculoskeletal: Denies: pain Allergies: Coded Allergies: No Known Allergies (Unverified , 03/08/17) All Systems: reviewed and negative except above Subjective ct in place on high oxygen and PEEP reduced to 10 on vent full code d/w nursing Objective Last 24 Hour Vital Signs Date Time Temp Pulse Resp B/P (MAP) Pulse Ox O2 Delivery O2 Flow Rate FiO2 08/10/20 10:00 120 28 144/81 (102) 99 08/10/20 10:00 30 Mechanical Ventilator 100 08/10/20 09:00 115 20 137/75 (95) 99 08/10/20 09:00 28 Mechanical Ventilator 100 08/10/20 08:00 97.9 113 21 127/73 (91) 99 08/10/20 08:00 31 Mechanical Ventilator 100 08/10/20 08:00 Mechanical Ventilator 08/10/20 08:00 112 08/10/20 08:00 100 08/10/20 07:30 110 29 100 08/10/20 07:00 109 19 117/64 (81) 100 08/10/20 07:00 19 100 08/10/20 06:00 20 100 08/10/20 06:00 100 16 133/73 (93) 100 08/10/20 05:00 18 100 08/10/20 05:00 107 24 135/84 (101) 96 08/10/20 04:27 20 100 08/10/20 04:00 98.1 108 22 137/85 (102) 97 08/10/20 04:00 113 08/10/20 04:00 18 100 08/10/20 04:00 Mechanical Ventilator 08/10/20 04:00 100 08/10/20 03:00 105 28 100 08/10/20 03:00 16 100 08/10/20 03:00 102 16 138/77 (97) 96 08/10/20 02:00 16 Mechanical Ventilator 100 08/10/20 02:00 90 16 110/58 (75) 97 08/10/20 01:00 97 16 128/75 (92) 97 08/10/20 01:00 18 Mechanical Ventilator 100 08/10/20 00:00 Mechanical Ventilator 08/10/20 00:00 89 08/10/20 00:00 100 08/10/20 00:00 97.9 86 24 131/82 (98) 99 08/10/20 00:00 16 Mechanical Ventilator 100 08/09/20 23:00 83 25 129/77 (94) 98 08/09/20 23:00 18 Mechanical Ventilator 100 08/09/20 22:30 87 26 100 08/09/20 22:30 87 19 129/65 (86) 98 08/09/20 22:00 82 21 130/81 (97) 98 08/09/20 22:00 26 Mechanical Ventilator 100 08/09/20 21:45 26 Mechanical Ventilator 100 08/09/20 21:00 85 08/09/20 21:00 26 Mechanical Ventilator 100 08/09/20 21:00 91 18 113/68 (83) 95 08/09/20 20:00 26 Mechanical Ventilator 100 08/09/20 20:00 98.9 115 22 132/89 (103) 98 08/09/20 20:00 Mechanical Ventilator 08/09/20 19:00 22 Mechanical Ventilator 100 08/09/20 19:00 97.9 120 25 133/85 (101) 85 08/09/20 18:45 25 Mechanical Ventilator 100 08/09/20 18:45 98.0 08/09/20 18:37 126 29 100 08/09/20 18:30 25 Mechanical Ventilator 100 08/09/20 18:15 22 Mechanical Ventilator 100 08/09/20 18:00 24 100 08/09/20 17:45 22 Mechanical Ventilator 100 08/09/20 17:30 24 Mechanical Ventilator 100 08/09/20 17:15 24 Mechanical Ventilator 100 08/09/20 17:00 26 Mechanical Ventilator 100 08/09/20 17:00 141 31 144/83 (103) 87 08/09/20 16:30 97.1 139 34 144/83 (103) 85 08/09/20 16:00 140 08/09/20 16:00 137 35 145/96 (112) 85 08/09/20 16:00 22 Mechanical Ventilator 100 08/09/20 16:00 Mechanical Ventilator 08/09/20 16:00 85 08/09/20 15:00 128 31 136/87 (103) 91 08/09/20 15:00 24 Mechanical Ventilator 100 08/09/20 14:00 121 30 135/81 (99) 94 08/09/20 14:00 30 Mechanical Ventilator 100 08/09/20 13:30 125 30 142/94 (110) 95 08/09/20 13:13 123 28 100 08/09/20 13:13 123 28 98 Mechanical Ventilator 100 08/09/20 13:00 26 Mechanical Ventilator 100 08/09/20 13:00 120 28 127/78 (94) 93 08/09/20 12:30 115 27 117/81 (93) 94 08/09/20 12:00 110 26 143/91 (108) 94 08/09/20 12:00 Mechanical Ventilator 08/09/20 12:00 24 Mechanical Ventilator 85 08/09/20 12:00 85 08/09/20 12:00 122 08/09/20 11:30 111 27 136/91 (106) 94 Intake and Output 08/09/20 08/10/20 19:00 07:00 Intake Total 1220.0 ml 729.8 ml Output Total 485 ml 410 ml Balance 735.0 ml 319.8 ml Free Water 260 ml 60 ml IV Total 600.0 ml 309.8 ml Tube Feeding 360 ml 360 ml Output Urine Total 465 ml 410 ml Chest Tube Drainage Total 20 ml # Bowel Movements 1 3 Objective deferred due to COVID Laboratory Tests 08/09/20 21:52: POC Whole Blood Glucose [Pending] 08/10/20 04:00: White Blood Count 14.5H, Red Blood Count 3.66L, Hemoglobin 11.1L, Hematocrit 35.2L, Mean Corpuscular Volume 96, Mean Corpuscular Hemoglobin 30.3, Mean Corpuscular Hemoglobin Concent 31.5L, Red Cell Distribution Width 14.8, Platelet Count 285#, Mean Platelet Volume 7.6, Neutrophils (%) (Auto) , Lymphocytes (%) (Auto) , Monocytes (%) (Auto) , Eosinophils (%) (Auto) , Basophils (%) (Auto) , Differential Total Cells Counted 100, Neutrophils % (Manual) 87H, Lymphocytes % (Manual) 7L, Monocytes % (Manual) 5, Eosinophils % (Manual) 0, Basophils % (Manual) 0, Band Neutrophils 1, Platelet Estimate Adequate, Platelet Morphology Normal, Hypochromasia 1+, Anisocytosis 1+, Sodium Level 147H, Potassium Level 3 .7, Chloride Level 106, Carbon Dioxide Level 38H, Anion Gap 3L, Blood Urea Nitrogen 17, Creatinine 0.4#L, Estimat Glomerular Filtration Rate > 60, Glucose Level 187H, Calcium Level 8.6, Total Bilirubin 0.4, Aspartate Amino Transf (AST/SGOT) 85H, Alanine Aminotransferase (ALT/SGPT) 51, Alkaline Phosphatase 93, C-Reactive Protein, Quantitative 15.0H, Total Protein 5.7L, Albumin 1.5L, Globulin 4.2, Albumin/Globulin Ratio 0.4L 08/10/20 08:20: Arterial Blood pH 7.416, Arterial Blood Partial Pressure CO2 62.7*H, Arterial Blood Partial Pressure O2 68.9L, Arterial Blood HCO3 39.4H, Arterial Blood Oxygen Saturation 93.0L, Arterial Blood Base Excess 12.5*H, Jacob Test Positive Current Medications Medications (Trade) Dose Ordered Sig/Milagro Route PRN Reason Start Time Stop Time Status Last Admin Dose Admin Acetaminophen (Tylenol) 650 mg Q4H PRN RECTAL Mild Pain (Pain Scale 1-3) 07/24/20 18:15 08/23/20 18:14 07/25/20 11:49 Acetaminophen (Tylenol) 650 mg Q6H PRN NG Mild Pain (Pain Scale 1-3) 07/26/20 08:30 08/25/20 08:29 08/09/20 18:15 Acetaminophen (Tylenol) 650 mg Q6H PRN NG Temp >100.5 07/26/20 08:30 08/25/20 08:29 08/03/20 09:36 Chlorhexidine Gluconate (Marycarmen-Hex 2%) 1 applic DAILY@2000 TOPIC 07/20/20 20:00 10/18/20 19:59 08/09/20 21:36 Dextrose (Dextrose 50%) 25 ml Q30M PRN IV Hypoglycemia 07/23/20 13:15 10/21/20 13:14 Dextrose (Dextrose 50%) 50 ml Q30M PRN IV Hypoglycemia 07/23/20 13:15 10/21/20 13:14 Dextrose/Sodium Chloride 1,000 ml @ 100 mls/hr Q10H PRN IV WHILE PRONING ONLY 07/24/20 17:45 08/23/20 17:44 08/10/20 05:33 Docusate Sodium (Colace) 100 mg EVERY 12 HOURS NG 07/27/20 21:00 08/26/20 20:59 08/10/20 08:39 Famotidine (Pepcid I.v.) 20 mg Q12HR IVP 08/04/20 21:00 09/03/20 20:59 08/10/20 08:39 Fluconazole (Diflucan) 100 mg Q24H NG 08/08/20 20:00 08/15/20 19:59 08/09/20 21:36 Insulin Aspart (NovoLOG) EVERY 6 HOURS SUBQ 07/28/20 00:00 10/21/20 15:59 08/10/20 05:59 Insulin Detemir (Levemir) 26 units EVERY 12 HOURS SUBQ 07/26/20 09:00 10/20/20 08:59 08/10/20 08:40 Methylprednisolone Sodium Succinate (Solu-MEDROL) 10 mg DAILY IVP 08/13/20 09:00 08/14/20 09:01 Methylprednisolone Sodium Succinate (Solu-MEDROL) 20 mg DAILY IVP 08/11/20 09:00 08/12/20 09:01 Midazolam HCl 100 ml @ 0 mls/hr Q24H IV 08/10/20 22:00 08/12/20 21:59 Midazolam HCl 100 mg/Sodium Chloride 200 ml @ 0 mls/hr Q24H IV 08/07/20 17:00 08/10/20 21:59 08/10/20 04:27 Piperacillin Sod/ Tazobactam Sod 3.375 gm/Sodium Chloride 110 ml @ 27.5 mls/hr EVERY 8 HOURS IVPB 08/09/20 11:30 08/14/20 11:29 08/10/20 05:32 Promethazine HCl/ Codeine (Phenergan with Codeine) 5 ml Q4H PRN ORAL For Cough 07/11/20 15:15 08/10/20 15:14 07/26/20 18:26 Vitamin B Complex (Vitamin B Complex) 1 tab DAILY NG 07/24/20 09:00 10/09/20 08:59 08/10/20 08:39 Vitamin D (Vitamin D) 1,000 unit BEDTIME GT 07/27/20 21:00 08/13/20 09:29 08/09/20 21:33 Assessment/Plan Assessment/Plan acute hypoxemic respiratory failure COVID pneumonia Asthma elevated liver enzymes DNR ARDS with fibrosing phase pneumothorax elevated TG PLAN borderline oxygen saturation/ CT per surgery needs trach for chronic vent management---reduce PEEP as able- no on 10 monitor ABG reviewed today respiratory care ID noted DVT prophylaxis prognosis poor overall monitor respiratory status for change doubt will see improvement in oxygen needs likely due to fibrosing stage medications/laboratory data/nursing notes/ICU care reviewed in detail note reviewed and edited care discussed with RN and RT ICU time spent >40 minutes Elfego Price MD Aug 10, 2020 11:04
--- NOTE | 2020-08-10 11:08 | NUR ---
RADIOLOGY DEPT., CHEST X-RAY DONE.-P.DYE
--- NOTE | 2020-08-10 11:15 | NUR ---
NURSE NOTES: Pt turned and repositioned. Pt noted to be restless; will increase Versed to achieve RASS -2. Pt still receiving Glucerna 1.2 @ 30mL/hr d/t Vital AF not being available in the hospital. Pt tolerating well.
--- NOTE | 2020-08-10 12:51 | Diagnostic Imaging Report ---
Indication: Cough Technique: One view of the chest Comparison: 08/08/2020 Findings: Right pneumothorax is slightly increased from the prior exam, still small. Right chest tube remains in place. Stable satisfactory position of endotracheal and orogastric tubes. Left arm PICC remain stable. Previously demonstrated pneumomediastinum is not definitely evident currently. There is marked improvement of previously demonstrated right supraclavicular subcutaneous emphysema, with mild residual. Bilateral infiltrates remain Impression: Increased but still small right pneumothorax. This was discussed by phone with Dr. Butler at the time of interpretation Unchanged bilateral infiltrates Decreased right supraclavicular subcutaneous emphysema.
--- NOTE | 2020-08-10 13:00 | NUR ---
NURSE NOTES: Versed increased to 12mg/hr d/t restlessness, tachycardia (HR in the 130's) and tachypnea (RR in the 40's). Pt remains on the same ventilator settings. O2sat 95%.
--- NOTE | 2020-08-10 14:32 | NUR ---
Felt Hat Inspector And Packer Note Spoke with [facility] and [facility] transfer Center and [facility] Transfer [facility] and faxed referral information to both facilities. Spoke with Trent at [facility] and he stated after receiving the fax that they did not have any available beds, at capacity.
--- NOTE | 2020-08-10 14:35 | NUR ---
Hat Band AttacherManager Managed Care SI: Respiratory Failure, Covid-PNA, ETT/Vent Support, pneumothorax-chest tube to suction T 98.9 (Ax), HR 128, RR 34, BP 175/103 AC 26, TV 500, PEEP 16, FiO2 100%, O2 Sat 94% WBC 14.5, BUN 17, Creatinine 0.4 Cxray increased but small rt pneumothorax, unchanged bilateral infiltrates IS: Midazolam GTT Solu-Medrol IV QD Pepcid IV q 12 h Zosyn IV q 8 hrs Pepcid IV q 12 h D5/NS at 100cc/hr ICU Status
--- NOTE | 2020-08-10 15:00 | NUR ---
NURSE NOTES: Pt turned and repositioned for comfort. Oral care done. Pt remains afebrile at this time.
--- NOTE | 2020-08-10 17:00 | NUR ---
NURSE NOTES: Pt fully cleaned and linens changed. Oral care done. Pt has dried blood scabs on his upper and lower lips. Versed bag changed. Continues to run at 12mg/hr.
--- NOTE | 2020-08-10 17:28 | Surgery Progress Note ---
Surgery Progress Note Subjective Procedure Performed right chest tube insertion Additional Comments residual ptx ct stable may consider second ct if needed decreased peep Objective Last 24 Hour Vital Signs Date Time Temp Pulse Resp B/P (MAP) Pulse Ox O2 Delivery O2 Flow Rate FiO2 08/10/20 17:01 31 100 08/10/20 17:00 31 Mechanical Ventilator 100 08/10/20 16:00 31 Mechanical Ventilator 100 08/10/20 16:00 Mechanical Ventilator 08/10/20 16:00 100 08/10/20 16:00 129 29 121/70 (87) 94 08/10/20 16:00 126 08/10/20 15:49 136 30 100 08/10/20 15:00 138 33 158/94 (115) 91 08/10/20 15:00 30 Mechanical Ventilator 100 08/10/20 14:00 133 35 175/103 (127) 94 08/10/20 14:00 31 Mechanical Ventilator 100 08/10/20 13:00 98.9 128 34 164/103 (123) 93 08/10/20 13:00 28 Mechanical Ventilator 100 08/10/20 12:45 30 Mechanical Ventilator 100 08/10/20 12:30 38 Mechanical Ventilator 100 08/10/20 12:15 38 Mechanical Ventilator 100 08/10/20 12:00 127 08/10/20 12:00 127 32 163/91 (115) 98 08/10/20 12:00 40 Non-Rebreather 100 08/10/20 12:00 100 08/10/20 12:00 Mechanical Ventilator 08/10/20 11:45 40 Mechanical Ventilator 100 08/10/20 11:30 40 Mechanical Ventilator 100 08/10/20 11:15 40 Mechanical Ventilator 100 08/10/20 11:02 123 30 100 08/10/20 11:00 31 Mechanical Ventilator 100 08/10/20 11:00 125 32 153/80 (104) 95 08/10/20 10:00 120 28 144/81 (102) 99 08/10/20 10:00 30 Mechanical Ventilator 100 08/10/20 09:00 115 20 137/75 (95) 99 08/10/20 09:00 28 Mechanical Ventilator 100 08/10/20 08:00 97.9 113 21 127/73 (91) 99 08/10/20 08:00 31 Mechanical Ventilator 100 08/10/20 08:00 Mechanical Ventilator 08/10/20 08:00 112 08/10/20 08:00 100 08/10/20 07:30 110 29 100 08/10/20 07:00 109 19 117/64 (81) 100 08/10/20 07:00 19 100 08/10/20 06:00 20 100 08/10/20 06:00 100 16 133/73 (93) 100 08/10/20 05:00 18 100 08/10/20 05:00 107 24 135/84 (101) 96 08/10/20 04:27 20 100 08/10/20 04:00 98.1 108 22 137/85 (102) 97 08/10/20 04:00 113 08/10/20 04:00 18 100 08/10/20 04:00 Mechanical Ventilator 08/10/20 04:00 100 08/10/20 03:00 105 28 100 08/10/20 03:00 16 100 08/10/20 03:00 102 16 138/77 (97) 96 08/10/20 02:00 16 Mechanical Ventilator 100 08/10/20 02:00 90 16 110/58 (75) 97 08/10/20 01:00 97 16 128/75 (92) 97 08/10/20 01:00 18 Mechanical Ventilator 100 08/10/20 00:00 Mechanical Ventilator 08/10/20 00:00 89 08/10/20 00:00 100 08/10/20 00:00 97.9 86 24 131/82 (98) 99 08/10/20 00:00 16 Mechanical Ventilator 100 08/09/20 23:00 83 25 129/77 (94) 98 08/09/20 23:00 18 Mechanical Ventilator 100 08/09/20 22:30 87 26 100 08/09/20 22:30 87 19 129/65 (86) 98 08/09/20 22:00 82 21 130/81 (97) 98 08/09/20 22:00 26 Mechanical Ventilator 100 08/09/20 21:45 26 Mechanical Ventilator 100 08/09/20 21:00 85 08/09/20 21:00 26 Mechanical Ventilator 100 08/09/20 21:00 91 18 113/68 (83) 95 08/09/20 20:00 26 Mechanical Ventilator 100 08/09/20 20:00 98.9 115 22 132/89 (103) 98 08/09/20 20:00 Mechanical Ventilator 08/09/20 19:00 22 Mechanical Ventilator 100 08/09/20 19:00 97.9 120 25 133/85 (101) 85 08/09/20 18:45 25 Mechanical Ventilator 100 08/09/20 18:45 98.0 08/09/20 18:37 126 29 100 08/09/20 18:30 25 Mechanical Ventilator 100 08/09/20 18:15 22 Mechanical Ventilator 100 08/09/20 18:00 24 100 08/09/20 17:45 22 Mechanical Ventilator 100 08/09/20 17:30 24 Mechanical Ventilator 100 I&O Intake and Output 08/09/20 08/10/20 19:00 07:00 Intake Total 1220.0 ml 729.8 ml Output Total 485 ml 410 ml Balance 735.0 ml 319.8 ml Free Water 260 ml 60 ml IV Total 600.0 ml 309.8 ml Tube Feeding 360 ml 360 ml Output Urine Total 465 ml 410 ml Chest Tube Drainage Total 20 ml # Bowel Movements 1 3 Dressing: saturated Drains: other Cardiovascular: RSR Respiratory: decreased breath sounds Abdomen: non-tender, present bowel sounds, non-distended Extremities: no edema, no cyanosis Laboratory Tests Test 08/09/20 21:52 08/10/20 04:00 08/10/20 08:20 08/10/20 17:22 POC Whole Blood Glucose Pending 186 MG/DL (74-106) H White Blood Count 14.5 K/UL (4.8-10.8) H Red Blood Count 3.66 M/UL (4.70-6.10) L Hemoglobin 11.1 G/DL (14.2-18.0) L Hematocrit 35.2 % (42.0-52.0) L Mean Corpuscular Volume 96 FL (80-99) Mean Corpuscular Hemoglobin 30.3 PG (27.0-31.0) Mean Corpuscular Hemoglobin Concent 31.5 G/DL (32.0-36.0) L Red Cell Distribution Width 14.8 % (11.6-14.8) Platelet Count 285 K/UL (150-450) # Mean Platelet Volume 7.6 FL (6.5-10.1) Neutrophils (%) (Auto) % (45.0-75.0) Lymphocytes (%) (Auto) % (20.0-45.0) Monocytes (%) (Auto) % (1.0-10.0) Eosinophils (%) (Auto) % (0.0-3.0) Basophils (%) (Auto) % (0.0-2.0) Differential Total Cells Counted 100 Neutrophils % (Manual) 87 % (45-75) H Lymphocytes % (Manual) 7 % (20-45) L Monocytes % (Manual) 5 % (1-10) Eosinophils % (Manual) 0 % (0-3) Basophils % (Manual) 0 % (0-2) Band Neutrophils 1 % (0-8) Platelet Estimate Adequate Platelet Morphology Normal Hypochromasia 1+ Anisocytosis 1+ Sodium Level 147 MMOL/L (136-145) H Potassium Level 3.7 MMOL/L (3.5-5.1) Chloride Level 106 MMOL/L (98-107) Carbon Dioxide Level 38 MMOL/L (21-32) H Anion Gap 3 mmol/L (5-15) L Blood Urea Nitrogen 17 mg/dL (7-18) Creatinine 0.4 MG/DL (0.55-1.30) #L Estimat Glomerular Filtration Rate > 60 mL/min (>60) Glucose Level 187 MG/DL (74-106) H Calcium Level 8.6 MG/DL (8.5-10.1) Total Bilirubin 0.4 MG/DL (0.2-1.0) Aspartate Amino Transf (AST/SGOT) 85 U/L (15-37) H Alanine Aminotransferase (ALT/SGPT) 51 U/L (12-78) Alkaline Phosphatase 93 U/L (46-116) C-Reactive Protein, Quantitative 15.0 mg/dL (0.00-0.90) H Total Protein 5.7 G/DL (6.4-8.2) L Albumin 1.5 G/DL (3.4-5.0) L Globulin 4.2 g/dL Albumin/Globulin Ratio 0.4 (1.0-2.7) L Arterial Blood pH 7.416 (7.350-7.450) Arterial Blood Partial Pressure CO2 62.7 mmHg (35.0-45.0) *H Arterial Blood Partial Pressure O2 68.9 mmHg (75.0-100.0) L Arterial Blood HCO3 39.4 mmol/L (22.0-26.0) H Arterial Blood Oxygen Saturation 93.0 % (95-100) L Arterial Blood Base Excess 12.5 (-2-2) *H Jacob Test Positive Plan Problems: (1) Pneumothorax Assessment & Plan: 31M covid on vent peep 16 fi02 100 right ptx s/p right chest tube ett complication replaced 07/01 chest tube vac replaced this AM as well given malfunction high risk low tv cxr noted ill appearing tube and lines checked will need to monitor closely unable to wean vent at this time cont current care plan Right pneumothorax is slightly increased from the prior exam, still small. Right chest tube remains in place. Stable satisfactory position of endotracheal and orogastric tubes. Left arm PICC remain stable. Previously demonstrated pneumomediastinum is not definitely evident currently. There is marked improvement of previously demonstrated right supraclavicular subcutaneous emphysema, with mild residual. Bilateral infiltrates remain (2) Respiratory failure (3) Coronavirus infection (4) Diabetes (5) Hypercapnia (6) Hypoxia (7) Asthma (8) HTN (hypertension) (9) Obesity (BMI 30-39.9) (10) Acute respiratory distress syndrome (ARDS) due to 2019-nCoV (11) Acute hypoxemic respiratory failure due to COVID-19 (12) Bradycardia (13) Laceration Mulugeta Butler Aug 10, 2020 17:28
--- NOTE | 2020-08-10 17:45 | NUR ---
NURSE NOTES: Ice packs applied to prevent from temp spike. Current temp 99.7
--- NOTE | 2020-08-10 19:03 | NUR ---
NURSE HAND-OFF REPORT: Latest Vital Signs: Temperature 98.9 , Pulse 134 , B/P 125 /78 , Respiratory Rate 29 , O2 SAT 95 , Mechanical Ventilator, FiO2 100% . Vital Sign Comment: EKG Rhythm: Sinus Tachycardia Rhythm change?: N MD Notified?: MD Response: Latest Bradley Fall Score: 50 Fall Risk: High Risk Safety Measures: Call light Within Reach, Bed Alarm Zone 1, Side Rails Side Rails x3, Bed position Low and Locked. Fall Precautions: Yellow Socks Yellow Gown Door Sign Patient Fall Education Report given to ELIER Garcia.
[2020-08-10] MEDS: Fluconazole 100mg tab NG SCH (20:00)
[2020-08-10] MEDS: Dyna-Hex 2% Top Sol 2oz TOPIC SCH (20:00)
--- NOTE | 2020-08-10 20:00 | NUR ---
NURSE NOTES: Report received from ELIER Serrano. Pt is sedated with Score of -2 RASS. Pt is orally intubated ETT 7.5, 25cm @ the lip line. Vent settings AC 26 / TV 500 / PEEP 10 and fiO2 of 100%; O2sat reads 99% on teletypesetter monitor. Pt remains febrile at 100.8 cooling NGT intact, running Glucerna at 30mL/hr. Upper Chest tube patent and intact. DANIEL PICC running Versed at 8 mg/hr. Biswas draining well with gravity to urometer. Side rails up x3. Bed kept in lowest and locked position. Bed alarm on. Will continue to monitor.
[2020-08-10] MEDS: Vitamin D 1000 units Tab GT SCH (20:55)
[2020-08-10] MEDS: Acetaminophen 650mg/20.3ml NG PRN (20:57)
[2020-08-10] MEDS ORDERED: Versed 50mg/NS 100ml 100 ML IV SCH (22:00)
--- NOTE | 2020-08-10 22:00 | NUR ---
NURSE NOTES: Patient repositioned and oral care was provided. Patient continues to be at 100% FiO2, saturating above 90%. Blood pressures have been stable. Patient is making good urine output. Will continue to monitor
[2020-08-11] VITALS (32 sets, daily range): BP systolic 107–155; BP diastolic 58–96
--- NOTE | 2020-08-11 | NUR ---
NURSE NOTES: Oral care given, glucose noted to be 76, no coverage given. Oral care given, afebrile at this time. Will continue to monitor.
--- NOTE | 2020-08-11 02:00 | NUR ---
NURSE NOTES: Patients blood pressures remains stable at this time, saturating above 92%. Patients versed gtt at 2mg/hr. Gag reflexes remains active. pupils and blinking reflexes remains intact. Patient seems to respond to name and can knod just barely at times--sometimes-- when asked a simple yes or no questions. Patient does remains flaccid on all extremities. Some Facial mottling observed, FLACC score 0/10. Repositioned patient, safety measures observed. Chest tube remains patent and intact. will cotninue to monitor.
--- NOTE | 2020-08-11 04:00 | NUR ---
NURSE NOTES: Patient given bed bath and oral care, rectal tube inserted d/t loose stool. Labs drawn and sent with aircraft electronics technical officer. Patient remains afebrile HR 108-115 Sinus tach. normotensive BP ranges. cool to touch. Gag reflexe patent. Lavaged and suctioned. Remains on 100% FiO2. SpO2 at 96%. Chest tube remains patent and intact. Patients glucose noted to be 47. Patient given D50 IVP.
[2020-08-11] MEDS: NovoLOG Insulin Flexpen SUBQ SCH ×4 (04:33→17:18)
--- NOTE | 2020-08-11 04:33 | NUR ---
NURSE NOTES: Reassessment of glucose after D50 IVP given is 157
[2020-08-11 06:00] LABS: HEMATOCRIT 34.5 % (42.0-52.0); HEMOGLOBIN 10.8 G/DL (14.2-18.0); MEAN CORPUSCULAR VOLUME 96 FL (80-99); PLATELET COUNT 316 K/UL (150-450); RED CELL DISTRIBUTION WIDTH 14.7 % (11.6-14.8); WHITE BLOOD COUNT 17.2 K/UL (4.8-10.8)
--- NOTE | 2020-08-11 06:15 | NUR ---
NURSE NOTES: Patients HR is [address] and SpO2 is 89%.Patient awake more, increased sedation. BP stable.
[2020-08-11 06:28] LABS: ALANINE AMINOTRANSFERASE 75 U/L (12-78); ALBUMIN 3.2 G/DL (3.4-5.0); ALBUMIN/GLOBULIN RATIO 0.8 (1.0-2.7); ALKALINE PHOSPHATASE 99 U/L (46-116); ASPARTATE AMINO TRANSFERASE 96 U/L (15-37); BILIRUBIN,TOTAL 0.9 MG/DL (0.2-1.0); BLOOD UREA NITROGEN 17 mg/dL (7-18); CALCIUM 9.1 MG/DL (8.5-10.1); CHLORIDE 99 MMOL/L (98-107); CREATININE 0.4 MG/DL (0.55-1.30); SODIUM 147 MMOL/L (136-145)
[2020-08-11] MEDS: Piperacillin/Tazobactam 3.375 GM in NS 110 ML IVPB SCH ×3 (06:29→21:28)
[2020-08-11 06:35] LABS: POTASSIUM 2.7 MMOL/L (3.5-5.1)
[2020-08-11 06:36] LABS: CARBON DIOXIDE > 45 MMOL/L (21-32)
--- NOTE | 2020-08-11 07:00 | NUR ---
NURSE NOTES: Pt received from ELIER Garcia. Pt is sedated, opens eyes when called by name for approx 6 sec, RASS noted -2, bilat pupils equal and round 4mm with sluggish rxn to light; pt is unable to follow simple commands at this time; withdraws to light pain stimuli; gag reflex active. Pt is ST to programming manager with 2+ radial and dorsalis pedis pulses. 1+ pitting edema noted to hands. cap refill less than 3 sec. Pt is orally intubated with a 7.5 ETT noted 25 cm at the lip with the following settings: AC 26 TV 500 FiO2 100 % Peep 10. (will f/u with ABGs results). lung ortiz noted diminished upon auscultation. Pt has a pleur-evac chest tube draining serosanguineous fluid from right lateral chest area dressing is dry and intact) - chest tube is connected to low, intermittent wall suction at 20 cm H20 - water seal chamber fluid level adjusted to 2 cm of H20. left naris NGT is running Glucerna 1.2 at 40 cc/hr without gastric residuals. Abdomen is round and soft w/ active bowel sounds to all quadrants. Rectal tube noted draining nakia-soft, brown stool. F/C noted draining yellow urine. Skin is intact. Pt has a DANIEL PICC with dry and intact dressing running versed gtt at 7 mg/hr. Bed in lowest position, alarm on, side rails up x 2, call light within reach. Will continue to monitor.
--- NOTE | 2020-08-11 08:00 | NUR ---
NURSE NOTES: Pt repositioned. PO care provided. Afebrile. No distress noted.
[2020-08-11] MEDS: Docusate 100mg/10ml Liq NG SCH ×2 (08:03→20:37)
--- NOTE | 2020-08-11 08:55 | Infectious Diseases Prog Note ---
Assessment/Plan Assessment/Plan A: 1. COVID-19 pneumonia. 2. History of asthma. 3. Elevated liver function tests. 4. Fatty liver 5. DM with hyperglycemia 6. Leukocytosis worsening 7. Hypoxic respiratory failure 8. Gram negative pneumonia 9. Positive blood culture with CoANS PLAN: 1. Continue Methylprednisone 2. Continue Zosyn 3. Waiting for transfer to higher level of care 5. case was D/W RN Subjective ROS Limited/Unobtainable: Yes Constitutional: Reports: other - fever of 100.8 last night Neurologic: Reports: other - sedated on restraint Allergies: Coded Allergies: No Known Allergies (Unverified , 03/08/17) Objective Last 24 Hour Vital Signs Date Time Temp Pulse Resp B/P (MAP) Pulse Ox O2 Delivery O2 Flow Rate FiO2 08/11/20 07:30 111 24 107/58 (74) 94 08/11/20 07:00 113 21 117/67 (84) 92 08/11/20 06:45 30 Mechanical Ventilator 100 08/11/20 06:30 97.5 134 35 127/71 (89) 84 08/11/20 06:00 109 26 118/73 (88) 92 08/11/20 06:00 26 Mechanical Ventilator 100 08/11/20 05:30 108 26 123/70 (87) 94 08/11/20 05:00 111 26 130/78 (95) 93 08/11/20 05:00 26 Mechanical Ventilator 100 08/11/20 04:30 105 26 133/78 (96) 92 08/11/20 04:00 26 Mechanical Ventilator 100 08/11/20 04:00 96.9 101 24 136/81 (99) 94 08/11/20 04:00 108 08/11/20 04:00 100 08/11/20 04:00 Mechanical Ventilator 08/11/20 03:30 104 26 128/83 (98) 92 08/11/20 03:18 104 28 100 08/11/20 03:00 99 14 148/92 (110) 92 08/11/20 03:00 26 Mechanical Ventilator 100 08/11/20 02:30 107 22 146/87 (106) 100 08/11/20 02:00 26 Mechanical Ventilator 100 08/11/20 02:00 114 27 144/85 (104) 95 08/11/20 01:30 106 25 148/88 (108) 96 1/14/21 01:00 26 Mechanical Ventilator 100 08/11/20 01:00 110 26 149/89 (109) 94 08/11/20 00:30 110 26 148/94 (112) 96 08/11/20 00:00 Mechanical Ventilator 08/11/20 00:00 26 Mechanical Ventilator 100 08/11/20 00:00 112 08/11/20 00:00 97.5 109 26 143/85 (104) 99 08/11/20 00:00 100 08/10/20 23:31 113 28 100 08/10/20 23:30 115 26 139/75 (96) 90 08/10/20 23:00 115 24 133/78 (96) 91 08/10/20 23:00 26 Mechanical Ventilator 100 08/10/20 22:30 124 21 134/69 (90) 91 08/10/20 22:00 115 24 129/71 (90) 92 08/10/20 22:00 26 Mechanical Ventilator 100 08/10/20 21:30 109 21 119/66 (83) 93 08/10/20 21:27 99.9 08/10/20 21:00 118 24 109/59 (76) 94 08/10/20 21:00 26 Mechanical Ventilator 26 08/10/20 20:45 26 Mechanical Ventilator 100 08/10/20 20:30 127 27 148/92 (110) 91 08/10/20 20:00 Mechanical Ventilator 08/10/20 20:00 140 08/10/20 20:00 100.8 136 26 136/78 (97) 92 08/10/20 20:00 26 Mechanical Ventilator 100 08/10/20 20:00 100 08/10/20 19:30 129 25 132/78 (96) 96 08/10/20 19:09 132 28 100 08/10/20 19:00 30 Mechanical Ventilator 100 08/10/20 19:00 134 29 125/78 (94) 95 08/10/20 18:00 137 30 135/78 (97) 94 08/10/20 18:00 30 Mechanical Ventilator 100 08/10/20 17:01 31 100 08/10/20 17:00 31 Mechanical Ventilator 100 08/10/20 17:00 113 18 139/63 (88) 92 08/10/20 16:00 31 Mechanical Ventilator 100 08/10/20 16:00 Mechanical Ventilator 08/10/20 16:00 100 08/10/20 16:00 129 29 121/70 (87) 94 08/10/20 16:00 126 08/10/20 15:49 136 30 100 08/10/20 15:00 138 33 158/94 (115) 91 08/10/20 15:00 30 Mechanical Ventilator 100 08/10/20 14:00 133 35 175/103 (127) 94 08/10/20 14:00 31 Mechanical Ventilator 100 08/10/20 13:00 98.9 128 34 164/103 (123) 93 08/10/20 13:00 28 Mechanical Ventilator 100 08/10/20 12:45 30 Mechanical Ventilator 100 08/10/20 12:30 38 Mechanical Ventilator 100 08/10/20 12:15 38 Mechanical Ventilator 100 08/10/20 12:00 127 08/10/20 12:00 127 32 163/91 (115) 98 08/10/20 12:00 40 Non-Rebreather 100 08/10/20 12:00 100 08/10/20 12:00 Mechanical Ventilator 08/10/20 11:45 40 Mechanical Ventilator 100 08/10/20 11:30 40 Mechanical Ventilator 100 08/10/20 11:15 40 Mechanical Ventilator 100 08/10/20 11:02 123 30 100 08/10/20 11:00 31 Mechanical Ventilator 100 08/10/20 11:00 125 32 153/80 (104) 95 08/10/20 10:00 120 28 144/81 (102) 99 08/10/20 10:00 30 Mechanical Ventilator 100 08/10/20 09:00 115 20 137/75 (95) 99 08/10/20 09:00 28 Mechanical Ventilator 100 Height (Feet): 5 Height (Inches): 6.00 Weight (Pounds): 209 HEENT: other - orally intubated Respiratory/Chest: other - on ventilator, EIT3=265%, R chest tube Cardiovascular: tachycardia, other - Left arm PICC line Extremities: no edema Neurologic/Psychiatric: other - sedated Laboratory Tests Test 08/10/20 17:22 08/10/20 20:13 08/10/20 23:41 08/11/20 04:00 POC Whole Blood Glucose 186 MG/DL (74-106) H Pending Pending White Blood Count 17.2 K/UL (4.8-10.8) H Red Blood Count 3.60 M/UL (4.70-6.10) L Hemoglobin 10.8 G/DL (14.2-18.0) L Hematocrit 34.5 % (42.0-52.0) L Mean Corpuscular Volume 96 FL (80-99) Mean Corpuscular Hemoglobin 30.0 PG (27.0-31.0) Mean Corpuscular Hemoglobin Concent 31.3 G/DL (32.0-36.0) L Red Cell Distribution Width 14.7 % (11.6-14.8) Platelet Count 316 K/UL (150-450) Mean Platelet Volume 7.6 FL (6.5-10.1) Neutrophils (%) (Auto) % (45.0-75.0) Lymphocytes (%) (Auto) % (20.0-45.0) Monocytes (%) (Auto) % (1.0-10.0) Eosinophils (%) (Auto) % (0.0-3.0) Basophils (%) (Auto) % (0.0-2.0) Neutrophils % (Manual) Pending Lymphocytes % (Manual) Pending Platelet Estimate Pending Platelet Morphology Pending Sodium Level 147 MMOL/L (136-145) H Potassium Level 2.7 MMOL/L (3.5-5.1) *L Chloride Level 99 MMOL/L (98-107) Carbon Dioxide Level > 45 MMOL/L (21-32) *H Blood Urea Nitrogen 17 mg/dL (7-18) Creatinine 0.4 MG/DL (0.55-1.30) L Estimat Glomerular Filtration Rate > 60 mL/min (>60) Glucose Level 53 MG/DL (74-106) #L Calcium Level 9.1 MG/DL (8.5-10.1) Total Bilirubin 0.9 MG/DL (0.2-1.0) Aspartate Amino Transf (AST/SGOT) 96 U/L (15-37) H Alanine Aminotransferase (ALT/SGPT) 75 U/L (12-78) Alkaline Phosphatase 99 U/L (46-116) Total Protein 7.3 G/DL (6.4-8.2) Albumin 3.2 G/DL (3.4-5.0) L Globulin 4.1 g/dL Albumin/Globulin Ratio 0.8 (1.0-2.7) L Current Medications Medications (Trade) Dose Ordered Sig/Milagro Route PRN Reason Start Time Stop Time Status Last Admin Dose Admin Acetaminophen (Tylenol) 650 mg Q4H PRN RECTAL Mild Pain (Pain Scale 1-3) 07/24/20 18:15 08/23/20 18:14 07/25/20 11:49 Acetaminophen (Tylenol) 650 mg Q6H PRN NG Mild Pain (Pain Scale 1-3) 07/26/20 08:30 08/25/20 08:29 08/09/20 18:15 Acetaminophen (Tylenol) 650 mg Q6H PRN NG Temp >100.5 07/26/20 08:30 08/25/20 08:29 08/10/20 20:57 Chlorhexidine Gluconate (Marycarmen-Hex 2%) 1 applic DAILY@2000 TOPIC 07/20/20 20:00 10/18/20 19:59 08/10/20 20:00 Dextrose (Dextrose 50%) 25 ml Q30M PRN IV Hypoglycemia 07/23/20 13:15 10/21/20 13:14 Dextrose (Dextrose 50%) 50 ml Q30M PRN IV Hypoglycemia 07/23/20 13:15 10/21/20 13:14 08/11/20 04:04 Dextrose/Sodium Chloride 1,000 ml @ 100 mls/hr Q10H PRN IV WHILE PRONING ONLY 07/24/20 17:45 08/23/20 17:44 08/10/20 05:33 Docusate Sodium (Colace) 100 mg EVERY 12 HOURS NG 07/27/20 21:00 08/26/20 20:59 08/10/20 20:55 Famotidine (Pepcid I.v.) 20 mg Q12HR IVP 08/04/20 21:00 09/03/20 20:59 08/10/20 20:55 Fluconazole (Diflucan) 100 mg Q24H NG 08/08/20 20:00 08/15/20 19:59 08/10/20 20:00 Insulin Aspart (NovoLOG) EVERY 6 HOURS SUBQ 07/28/20 00:00 10/21/20 15:59 08/10/20 17:38 Insulin Detemir (Levemir) 26 units EVERY 12 HOURS SUBQ 07/26/20 09:00 10/20/20 08:59 08/10/20 20:56 Methylprednisolone Sodium Succinate (Solu-MEDROL) 10 mg DAILY IVP 08/13/20 09:00 08/14/20 09:01 Methylprednisolone Sodium Succinate (Solu-MEDROL) 20 mg DAILY IVP 08/11/20 09:00 08/12/20 09:01 Midazolam HCl 100 mg/Sodium Chloride 200 ml @ 0 mls/hr Q24H IV 08/07/20 17:00 08/12/20 16:59 08/10/20 17:01 Piperacillin Sod/ Tazobactam Sod 3.375 gm/Sodium Chloride 110 ml @ 27.5 mls/hr EVERY 8 HOURS IVPB 08/09/20 11:30 08/14/20 11:29 08/11/20 06:29 Potassium Chloride 40 meq/ Dextrose 570 ml @ 142.5 mls/ hr ONCE IVPB 08/11/20 09:30 08/11/20 14:00 Potassium Chloride (K-Dur) 40 meq ONCE NG 08/11/20 09:00 08/11/20 10:00 Vitamin B Complex (Vitamin B Complex) 1 tab DAILY NG 07/24/20 09:00 10/09/20 08:59 08/10/20 08:39 Vitamin D (Vitamin D) 1,000 unit BEDTIME GT 07/27/20 21:00 08/13/20 09:29 08/10/20 20:55 Mian Wing MD Aug 11, 2020 08:55
--- NOTE | 2020-08-11 09:13 | NUR ---
RADIOLOGY DEPT., CHEST X-RAY DONE.-P.DYE
[2020-08-11] MEDS: Vitamin B Complex Tab NG SCH (09:17)
[2020-08-11] MEDS: Solu-MEDROL 40mg Inj IVP SCH (09:17)
[2020-08-11] MEDS ORDERED: Potassium Chloride 40 MEQ in D5W 500ml 550 ML IVPB SCH (09:30)
[2020-08-11] MEDS: Levemir Flexpen SUBQ SCH ×2 (09:49→20:51)
--- NOTE | 2020-08-11 10:00 | NUR ---
NURSE NOTES: Pt repositioned.
--- NOTE | 2020-08-11 10:20 | NUR ---
NURSE NOTES: Message left for Dr Price with ABG results. Awaiting call back.
--- NOTE | 2020-08-11 10:30 | NUR ---
NURSE NOTES: Received call back from Dr Price with new vet settings: AC 26 TV 500 FiO2 100% Peep 16 and repeat ABGs tomorrow morning.
--- NOTE | 2020-08-11 10:34 | NUR ---
RESPIRATORY NOTE: Increased PEEP to +16 post ABG per MD order. Keshia THAPA aware.
--- NOTE | 2020-08-11 11:00 | NUR ---
NURSE NOTES: Pt seen by Dr Price and Dilshad Wing.
--- NOTE | 2020-08-11 11:55 | NUR ---
NURSE NOTES: Pt seen by Dr Butler. Chest tube assessed. Remains afebrile with cooling measures off. Pt repositioned. PO care provided. No distress noted.
--- NOTE | 2020-08-11 12:19 | General Progress Note ---
Subjective ROS Limited/Unobtainable: No Constitutional: Reports: malaise, weakness HEENT: Reports: no symptoms Cardiovascular: Reports: no symptoms Respiratory: Reports: shortness of breath, sputum Gastrointestinal/Abdominal: Reports: difficulty swallowing Genitourinary: Reports: no symptoms Neurologic/Psychiatric: Reports: pre-existing deficit Endocrine: Reports: no symptoms Hematologic/Lymphatic: Reports: anemia Allergies: Coded Allergies: No Known Allergies (Unverified , 03/08/17) All Systems: reviewed and negative except above Subjective no change. no fever or chills. intubated and sedated. per staff responsive. on feeds. low k Objective Last 24 Hour Vital Signs Date Time Temp Pulse Resp B/P (MAP) Pulse Ox O2 Delivery O2 Flow Rate FiO2 08/11/20 11:00 126 35 147/91 (109) 85 08/11/20 11:00 34 Mechanical Ventilator 100 08/11/20 10:31 100 08/11/20 10:00 118 28 141/77 (98) 90 08/11/20 10:00 32 Mechanical Ventilator 100 08/11/20 09:00 24 Mechanical Ventilator 100 08/11/20 09:00 113 20 112/58 (76) 94 08/11/20 08:00 100 08/11/20 08:00 Mechanical Ventilator 08/11/20 08:00 106 08/11/20 08:00 20 Mechanical Ventilator 100 08/11/20 08:00 97.1 109 28 126/63 (84) 93 08/11/20 07:30 111 24 107/58 (74) 94 08/11/20 07:00 23 Mechanical Ventilator 100 08/11/20 07:00 113 21 117/67 (84) 92 08/11/20 06:45 30 Mechanical Ventilator 100 08/11/20 06:30 97.5 134 35 127/71 (89) 84 08/11/20 06:00 109 26 118/73 (88) 92 08/11/20 06:00 26 Mechanical Ventilator 100 08/11/20 05:30 108 26 123/70 (87) 94 08/11/20 05:00 111 26 130/78 (95) 93 08/11/20 05:00 26 Mechanical Ventilator 100 08/11/20 04:30 105 26 133/78 (96) 92 08/11/20 04:00 26 Mechanical Ventilator 100 08/11/20 04:00 96.9 101 24 136/81 (99) 94 08/11/20 04:00 108 08/11/20 04:00 100 08/11/20 04:00 Mechanical Ventilator 08/11/20 03:30 104 26 128/83 (98) 92 08/11/20 03:18 104 28 100 08/11/20 03:00 99 14 148/92 (110) 92 08/11/20 03:00 26 Mechanical Ventilator 100 08/11/20 02:30 107 22 146/87 (106) 100 08/11/20 02:00 26 Mechanical Ventilator 100 08/11/20 02:00 114 27 144/85 (104) 95 08/11/20 01:30 106 25 148/88 (108) 96 08/11/20 01:00 26 Mechanical Ventilator 100 08/11/20 01:00 110 26 149/89 (109) 94 08/11/20 00:30 110 26 148/94 (112) 96 08/11/20 00:00 Mechanical Ventilator 08/11/20 00:00 26 Mechanical Ventilator 100 08/11/20 00:00 112 08/11/20 00:00 97.5 109 26 143/85 (104) 99 08/11/20 00:00 100 08/10/20 23:31 113 28 100 08/10/20 23:30 115 26 139/75 (96) 90 08/10/20 23:00 115 24 133/78 (96) 91 08/10/20 23:00 26 Mechanical Ventilator 100 08/10/20 22:30 124 21 134/69 (90) 91 08/10/20 22:00 115 24 129/71 (90) 92 08/10/20 22:00 26 Mechanical Ventilator 100 08/10/20 21:30 109 21 119/66 (83) 93 08/10/20 21:27 99.9 08/10/20 21:00 118 24 109/59 (76) 94 08/10/20 21:00 26 Mechanical Ventilator 26 08/10/20 20:45 26 Mechanical Ventilator 100 08/10/20 20:30 127 27 148/92 (110) 91 08/10/20 20:00 Mechanical Ventilator 08/10/20 20:00 140 08/10/20 20:00 100.8 136 26 136/78 (97) 92 08/10/20 20:00 26 Mechanical Ventilator 100 08/10/20 20:00 100 08/10/20 19:30 129 25 132/78 (96) 96 08/10/20 19:09 132 28 100 08/10/20 19:00 30 Mechanical Ventilator 100 08/10/20 19:00 134 29 125/78 (94) 95 08/10/20 18:00 137 30 135/78 (97) 94 08/10/20 18:00 30 Mechanical Ventilator 100 08/10/20 17:01 31 100 08/10/20 17:00 31 Mechanical Ventilator 100 08/10/20 17:00 113 18 139/63 (88) 92 08/10/20 16:00 31 Mechanical Ventilator 100 08/10/20 16:00 Mechanical Ventilator 08/10/20 16:00 100 08/10/20 16:00 129 29 121/70 (87) 94 08/10/20 16:00 126 08/10/20 15:49 136 30 100 08/10/20 15:00 138 33 158/94 (115) 91 08/10/20 15:00 30 Mechanical Ventilator 100 08/10/20 14:00 133 35 175/103 (127) 94 08/10/20 14:00 31 Mechanical Ventilator 100 08/10/20 13:00 98.9 128 34 164/103 (123) 93 08/10/20 13:00 28 Mechanical Ventilator 100 08/10/20 12:45 30 Mechanical Ventilator 100 08/10/20 12:30 38 Mechanical Ventilator 100 Intake and Output 08/10/20 08/11/20 18:59 06:59 Intake Total 883.6 ml 707.0 ml Output Total 565 ml 1280 ml Balance 318.6 ml -573.0 ml Free Water 90 ml IV Total 423.6 ml 227.0 ml Tube Feeding 360 ml 390 ml Other 100 ml Output Urine Total 565 ml 1280 ml Laboratory Tests 08/10/20 17:22: POC Whole Blood Glucose 186H 08/10/20 20:13: POC Whole Blood Glucose [Pending] 08/10/20 23:41: POC Whole Blood Glucose [Pending] 08/11/20 04:00: White Blood Count 17.2H, Red Blood Count 3.60L, Hemoglobin 10.8L, Hematocrit 34.5L, Mean Corpuscular Volume 96, Mean Corpuscular Hemoglobin 30.0, Mean Corpuscular Hemoglobin Concent 31.3L, Red Cell Distribution Width 14.7, Platelet Count 316, Mean Platelet Volume 7.6, Neutrophils (%) (Auto) , Lymphocytes (%) (Auto) , Monocytes (%) (Auto) , Eosinophils (%) (Auto) , Basophils (%) (Auto) , Differential Total Cells Counted 100, Neutrophils % (Manual) 82H, Lymphocytes % (Manual) 9L, Monocytes % (Manual) 4, Eosinophils % (Manual) 0, Basophils % (Manual) 0, Band Neutrophils 5, Platelet Estimate Adequate, Platelet Morphology Normal, Polychromasia 1+, Hypochromasia 1+, Anisocytosis 1+, Sodium Level 147H, Potassium Level 2.7*L, Chloride Level 99, Carbon Dioxide Level > 45*H, Blood Urea Nitrogen 17, Creatinine 0.4L, Estimat Glomerular Filtration Rate > 60, Glucose Level 53#L, Calcium Level 9.1, Total Bilirubin 0.9, Aspartate Amino Transf (AST/SGOT) 96H, Alanine Aminotransferase (ALT/SGPT) 75, Alkaline Phosphatase 99, Total Protein 7.3, Albumin 3.2L, Globulin 4.1, Albumin/Globulin Ratio 0.8L 08/11/20 09:33: Arterial Blood pH 7.495H, Arterial Blood Partial Pressure CO2 71.5*H, Arterial Blood Partial Pressure O2 40.8*L, Arterial Blood HCO3 53.9*H, Arterial Blood Oxygen Saturation 79.4*L, Arterial Blood Base Excess 26.7*H, Jacob Test Positive Height (Feet): 5 Height (Inches): 6.00 Weight (Pounds): 209 Objective deferred Assessment/Plan Problem List: (1) Coronavirus infection ICD Codes: B34.2 - Coronavirus infection, unspecified SNOMED: 033908115 (2) Respiratory failure ICD Codes: J96.90 - Respiratory failure, unspecified, unspecified whether with hypoxia or hypercapnia SNOMED: 625050250 (3) Hypercapnia ICD Codes: R06.89 - Other abnormalities of breathing SNOMED: 15736403, 902314963 (4) Hypoxia ICD Codes: R09.02 - Hypoxemia SNOMED: 340913322 (5) Asthma ICD Codes: J45.909 - Unspecified asthma, uncomplicated SNOMED: 779843643, 505251119 (6) Pneumothorax ICD Codes: J93.9 - Pneumothorax, unspecified SNOMED: 55305842 Status: progressing, not improved Assessment/Plan: vent support wean fio2 and peep as able resp care/suctioning as needed monitor for bleeding. off lovenox due to oral bleeding monitor plts- trending up scd iv abx per id replace k remains critical and guarded d/w brother- dnr but still wants all other aggressive rx attempted to transfer for higher level of care- no accepting hospitals so far Rolando Cherry MD Aug 11, 2020 12:19
[2020-08-11] MEDS: Midazolam HCl 50mg/10ml vial 100 MG in NS 180 ML IV SCH ×2 (13:00→16:17)
--- NOTE | 2020-08-11 13:20 | Surgery Progress Note ---
Surgery Progress Note Subjective Procedure Performed right chest tube insertion Additional Comments abg worse needed to go back up on peep large air leak from ct pending cxr Objective Last 24 Hour Vital Signs Date Time Temp Pulse Resp B/P (MAP) Pulse Ox O2 Delivery O2 Flow Rate FiO2 08/11/20 13:00 32 Mechanical Ventilator 100 08/11/20 13:00 144 38 154/96 (115) 81 08/11/20 12:00 99.0 134 37 155/82 (106) 79 08/11/20 12:00 Mechanical Ventilator 08/11/20 11:00 126 35 147/91 (109) 85 08/11/20 11:00 34 Mechanical Ventilator 100 08/11/20 10:31 100 08/11/20 10:00 118 28 141/77 (98) 90 08/11/20 10:00 32 Mechanical Ventilator 100 08/11/20 09:00 24 Mechanical Ventilator 100 08/11/20 09:00 113 20 112/58 (76) 94 08/11/20 08:00 100 08/11/20 08:00 Mechanical Ventilator 08/11/20 08:00 106 08/11/20 08:00 20 Mechanical Ventilator 100 08/11/20 08:00 97.1 109 28 126/63 (84) 93 08/11/20 07:30 111 24 107/58 (74) 94 08/11/20 07:00 23 Mechanical Ventilator 100 08/11/20 07:00 113 21 117/67 (84) 92 08/11/20 06:45 30 Mechanical Ventilator 100 08/11/20 06:30 97.5 134 35 127/71 (89) 84 08/11/20 06:00 109 26 118/73 (88) 92 08/11/20 06:00 26 Mechanical Ventilator 100 08/11/20 05:30 108 26 123/70 (87) 94 08/11/20 05:00 111 26 130/78 (95) 93 08/11/20 05:00 26 Mechanical Ventilator 100 08/11/20 04:30 105 26 133/78 (96) 92 08/11/20 04:00 26 Mechanical Ventilator 100 08/11/20 04:00 96.9 101 24 136/81 (99) 94 08/11/20 04:00 108 08/11/20 04:00 100 08/11/20 04:00 Mechanical Ventilator 08/11/20 03:30 104 26 128/83 (98) 92 08/11/20 03:18 104 28 100 08/11/20 03:00 99 14 148/92 (110) 92 08/11/20 03:00 26 Mechanical Ventilator 100 08/11/20 02:30 107 22 146/87 (106) 100 08/11/20 02:00 26 Mechanical Ventilator 100 08/11/20 02:00 114 27 144/85 (104) 95 08/11/20 01:30 106 25 148/88 (108) 96 08/11/20 01:00 26 Mechanical Ventilator 100 08/11/20 01:00 110 26 149/89 (109) 94 08/11/20 00:30 110 26 148/94 (112) 96 08/11/20 00:00 Mechanical Ventilator 08/11/20 00:00 26 Mechanical Ventilator 100 08/11/20 00:00 112 08/11/20 00:00 97.5 109 26 143/85 (104) 99 08/11/20 00:00 100 08/10/20 23:31 113 28 100 08/10/20 23:30 115 26 139/75 (96) 90 08/10/20 23:00 115 24 133/78 (96) 91 08/10/20 23:00 26 Mechanical Ventilator 100 08/10/20 22:30 124 21 134/69 (90) 91 08/10/20 22:00 115 24 129/71 (90) 92 08/10/20 22:00 26 Mechanical Ventilator 100 08/10/20 21:30 109 21 119/66 (83) 93 08/10/20 21:27 99.9 08/10/20 21:00 118 24 109/59 (76) 94 08/10/20 21:00 26 Mechanical Ventilator 26 08/10/20 20:45 26 Mechanical Ventilator 100 08/10/20 20:30 127 27 148/92 (110) 91 08/10/20 20:00 Mechanical Ventilator 08/10/20 20:00 140 08/10/20 20:00 100.8 136 26 136/78 (97) 92 08/10/20 20:00 26 Mechanical Ventilator 100 08/10/20 20:00 100 08/10/20 19:30 129 25 132/78 (96) 96 08/10/20 19:09 132 28 100 08/10/20 19:00 30 Mechanical Ventilator 100 08/10/20 19:00 134 29 125/78 (94) 95 08/10/20 18:00 137 30 135/78 (97) 94 08/10/20 18:00 30 Mechanical Ventilator 100 08/10/20 17:01 31 100 08/10/20 17:00 31 Mechanical Ventilator 100 08/10/20 17:00 113 18 139/63 (88) 92 08/10/20 16:00 31 Mechanical Ventilator 100 08/10/20 16:00 Mechanical Ventilator 08/10/20 16:00 100 08/10/20 16:00 129 29 121/70 (87) 94 08/10/20 16:00 126 08/10/20 15:49 136 30 100 08/10/20 15:00 138 33 158/94 (115) 91 08/10/20 15:00 30 Mechanical Ventilator 100 08/10/20 14:00 133 35 175/103 (127) 94 08/10/20 14:00 31 Mechanical Ventilator 100 I&O Intake and Output 08/10/20 08/11/20 19:00 07:00 Intake Total 870.1 ml 706.5 ml Output Total 565 ml 1300 ml Balance 305.1 ml -593.5 ml Free Water 100 ml IV Total 410.1 ml 206.5 ml Tube Feeding 360 ml 400 ml Other 100 ml Output Urine Total 565 ml 1300 ml Dressing: saturated Drains: other Cardiovascular: RSR Respiratory: decreased breath sounds Abdomen: soft, non-tender, present bowel sounds Extremities: no tenderness, no cyanosis Laboratory Tests Test 08/10/20 17:22 08/10/20 20:13 08/10/20 23:41 08/11/20 04:00 POC Whole Blood Glucose 186 MG/DL (74-106) H Pending Pending White Blood Count 17.2 K/UL (4.8-10.8) H Red Blood Count 3.60 M/UL (4.70-6.10) L Hemoglobin 10.8 G/DL (14.2-18.0) L Hematocrit 34.5 % (42.0-52.0) L Mean Corpuscular Volume 96 FL (80-99) Mean Corpuscular Hemoglobin 30.0 PG (27.0-31.0) Mean Corpuscular Hemoglobin Concent 31.3 G/DL (32.0-36.0) L Red Cell Distribution Width 14.7 % (11.6-14.8) Platelet Count 316 K/UL (150-450) Mean Platelet Volume 7.6 FL (6.5-10.1) Neutrophils (%) (Auto) % (45.0-75.0) Lymphocytes (%) (Auto) % (20.0-45.0) Monocytes (%) (Auto) % (1.0-10.0) Eosinophils (%) (Auto) % (0.0-3.0) Basophils (%) (Auto) % (0.0-2.0) Differential Total Cells Counted 100 Neutrophils % (Manual) 82 % (45-75) H Lymphocytes % (Manual) 9 % (20-45) L Monocytes % (Manual) 4 % (1-10) Eosinophils % (Manual) 0 % (0-3) Basophils % (Manual) 0 % (0-2) Band Neutrophils 5 % (0-8) Platelet Estimate Adequate Platelet Morphology Normal Polychromasia 1+ Hypochromasia 1+ Anisocytosis 1+ Sodium Level 147 MMOL/L (136-145) H Potassium Level 2.7 MMOL/L (3.5-5.1) *L Chloride Level 99 MMOL/L (98-107) Carbon Dioxide Level > 45 MMOL/L (21-32) *H Blood Urea Nitrogen 17 mg/dL (7-18) Creatinine 0.4 MG/DL (0.55-1.30) L Estimat Glomerular Filtration Rate > 60 mL/min (>60) Glucose Level 53 MG/DL (74-106) #L Calcium Level 9.1 MG/DL (8.5-10.1) Total Bilirubin 0.9 MG/DL (0.2-1.0) Aspartate Amino Transf (AST/SGOT) 96 U/L (15-37) H Alanine Aminotransferase (ALT/SGPT) 75 U/L (12-78) Alkaline Phosphatase 99 U/L (46-116) Total Protein 7.3 G/DL (6.4-8.2) Albumin 3.2 G/DL (3.4-5.0) L Globulin 4.1 g/dL Albumin/Globulin Ratio 0.8 (1.0-2.7) L Test 08/11/20 09:33 Arterial Blood pH 7.495 (7.350-7.450) Arterial Blood Partial Pressure CO2 71.5 mmHg (35.0-45.0) *H Arterial Blood Partial Pressure O2 40.8 mmHg (75.0-100.0) Arterial Blood HCO3 53.9 mmol/L (22.0-26.0) *H Arterial Blood Oxygen Saturation 79.4 % (95-100) *L Arterial Blood Base Excess 26.7 (-2-2) *H Jacob Test Positive Plan Problems: (1) Pneumothorax Assessment & Plan: 30M covid on vent peep 16 fi02 100 right ptx s/p right chest tube ett complication replaced 07/01 chest tube vac replaced this AM as well given malfunction high risk low tv cxr noted ill appearing tube and lines checked will need to monitor closely unable to wean vent at this time cont current care plan Right pneumothorax is slightly increased from the prior exam, still small. Right chest tube remains in place. Stable satisfactory position of endotracheal and orogastric tubes. Left arm PICC remain stable. Previously demonstrated pneumomediastinum is not definitely evident currently. There is marked improvement of previously demonstrated right supraclavicular subcutaneous emphysema, with mild residual. Bilateral infiltrates remain worsening prognosis guarded chest tube stable but leak with high peep (2) Respiratory failure (3) Coronavirus infection (4) Diabetes (5) Hypercapnia (6) Hypoxia (7) Asthma (8) HTN (hypertension) (9) Obesity (BMI 30-39.9) (10) Acute respiratory distress syndrome (ARDS) due to 2019-nCoV (11) Acute hypoxemic respiratory failure due to COVID-19 (12) Bradycardia (13) Laceration Mulugeta Butler Aug 11, 2020 13:20
--- NOTE | 2020-08-11 13:31 | Diagnostic Imaging Report ---
Indication: Reason For Exam: F/U Technique: One view of the chest Comparison: 08/10/2020 Findings: Stable satisfactory tube and line positions. Bilateral infiltrates are unchanged. Right pneumothorax appears slightly improved. Impression: Slightly improved with persistent right pneumothorax. Otherwise unchanged
--- NOTE | 2020-08-11 14:00 | NUR ---
NURSE NOTES: Pt repositioned. No distress noted.
[2020-08-11] MEDS ORDERED: Tubing IV Secondary IV ONE (15:37)
[2020-08-11] MEDS ORDERED: NS 275ml ONE (15:37)
--- NOTE | 2020-08-11 16:00 | NUR ---
NURSE NOTES: PO care provided. Pt repositioned. Afebrile. No distress noted.
--- NOTE | 2020-08-11 16:28 | Pulmonology Progress Note ---
Subjective ROS Limited/Unobtainable: No Constitutional: Reports: other Gastrointestinal/Abdominal: Denies: nausea, vomiting, diarrhea Musculoskeletal: Denies: pain Allergies: Coded Allergies: No Known Allergies (Unverified , 03/08/17) All Systems: reviewed and negative except above Subjective ct in place on high oxygen and PEEP reduced to 10 and desat noted and now increased on vent full code d/w nursing Objective Last 24 Hour Vital Signs Date Time Temp Pulse Resp B/P (MAP) Pulse Ox O2 Delivery O2 Flow Rate FiO2 08/11/20 16:00 100 08/11/20 16:00 122 08/11/20 16:00 98.1 120 26 115/71 (86) 100 08/11/20 16:00 Mechanical Ventilator 08/11/20 15:00 119 30 112/61 (78) 100 08/11/20 15:00 30 Mechanical Ventilator 100 08/11/20 14:00 133 27 130/81 (97) 95 08/11/20 14:00 27 Mechanical Ventilator 100 08/11/20 13:00 32 Mechanical Ventilator 100 08/11/20 13:00 144 38 154/96 (115) 81 08/11/20 12:00 145 08/11/20 12:00 99.0 134 37 155/82 (106) 79 08/11/20 12:00 Mechanical Ventilator 08/11/20 12:00 100 08/11/20 12:00 37 Mechanical Ventilator 100 08/11/20 11:00 126 35 147/91 (109) 85 08/11/20 11:00 34 Mechanical Ventilator 100 08/11/20 10:31 100 08/11/20 10:00 118 28 141/77 (98) 90 08/11/20 10:00 32 Mechanical Ventilator 100 08/11/20 09:00 24 Mechanical Ventilator 100 08/11/20 09:00 113 20 112/58 (76) 94 08/11/20 08:00 100 08/11/20 08:00 Mechanical Ventilator 08/11/20 08:00 106 08/11/20 08:00 20 Mechanical Ventilator 100 08/11/20 08:00 97.1 109 28 126/63 (84) 93 08/11/20 07:30 111 24 107/58 (74) 94 08/11/20 07:00 23 Mechanical Ventilator 100 08/11/20 07:00 113 21 117/67 (84) 92 08/11/20 06:45 30 Mechanical Ventilator 100 08/11/20 06:30 97.5 134 35 127/71 (89) 84 08/11/20 06:00 109 26 118/73 (88) 92 08/11/20 06:00 26 Mechanical Ventilator 100 08/11/20 05:30 108 26 123/70 (87) 94 08/11/20 05:00 111 26 130/78 (95) 93 08/11/20 05:00 26 Mechanical Ventilator 100 08/11/20 04:30 105 26 133/78 (96) 92 08/11/20 04:00 26 Mechanical Ventilator 100 08/11/20 04:00 96.9 101 24 136/81 (99) 94 08/11/20 04:00 108 08/11/20 04:00 100 08/11/20 04:00 Mechanical Ventilator 08/11/20 03:30 104 26 128/83 (98) 92 08/11/20 03:18 104 28 100 08/11/20 03:00 99 14 148/92 (110) 92 08/11/20 03:00 26 Mechanical Ventilator 100 08/11/20 02:30 107 22 146/87 (106) 100 08/11/20 02:00 26 Mechanical Ventilator 100 08/11/20 02:00 114 27 144/85 (104) 95 08/11/20 01:30 106 25 148/88 (108) 96 08/11/20 01:00 26 Mechanical Ventilator 100 08/11/20 01:00 110 26 149/89 (109) 94 08/11/20 00:30 110 26 148/94 (112) 96 08/11/20 00:00 Mechanical Ventilator 08/11/20 00:00 26 Mechanical Ventilator 100 08/11/20 00:00 112 08/11/20 00:00 97.5 109 26 143/85 (104) 99 08/11/20 00:00 100 08/10/20 23:31 113 28 100 08/10/20 23:30 115 26 139/75 (96) 90 08/10/20 23:00 115 24 133/78 (96) 91 08/10/20 23:00 26 Mechanical Ventilator 100 08/10/20 22:30 124 21 134/69 (90) 91 08/10/20 22:00 115 24 129/71 (90) 92 08/10/20 22:00 26 Mechanical Ventilator 100 08/10/20 21:30 109 21 119/66 (83) 93 08/10/20 21:27 99.9 08/10/20 21:00 118 24 109/59 (76) 94 08/10/20 21:00 26 Mechanical Ventilator 26 08/10/20 20:45 26 Mechanical Ventilator 100 08/10/20 20:30 127 27 148/92 (110) 91 08/10/20 20:00 Mechanical Ventilator 08/10/20 20:00 140 08/10/20 20:00 100.8 136 26 136/78 (97) 92 08/10/20 20:00 26 Mechanical Ventilator 100 08/10/20 20:00 100 08/10/20 19:30 129 25 132/78 (96) 96 08/10/20 19:09 132 28 100 08/10/20 19:00 30 Mechanical Ventilator 100 08/10/20 19:00 134 29 125/78 (94) 95 08/10/20 18:00 137 30 135/78 (97) 94 08/10/20 18:00 30 Mechanical Ventilator 100 08/10/20 17:01 31 100 08/10/20 17:00 31 Mechanical Ventilator 100 08/10/20 17:00 113 18 139/63 (88) 92 Intake and Output 08/10/20 08/11/20 19:00 07:00 Intake Total 870.1 ml 706.5 ml Output Total 565 ml 1300 ml Balance 305.1 ml -593.5 ml Free Water 100 ml IV Total 410.1 ml 206.5 ml Tube Feeding 360 ml 400 ml Other 100 ml Output Urine Total 565 ml 1300 ml Objective deferred due to COVID Laboratory Tests 08/10/20 17:22: POC Whole Blood Glucose 186H 08/10/20 20:13: POC Whole Blood Glucose [Pending] 08/10/20 23:41: POC Whole Blood Glucose [Pending] 08/11/20 04:00: White Blood Count 17.2H, Red Blood Count 3.60L, Hemoglobin 10.8L, Hematocrit 34.5L, Mean Corpuscular Volume 96, Mean Corpuscular Hemoglobin 30.0, Mean Corpuscular Hemoglobin Concent 31.3L, Red Cell Distribution Width 14.7, Platelet Count 316, Mean Platelet Volume 7.6, Neutrophils (%) (Auto) , Lymphocytes (%) (Auto) , Monocytes (%) (Auto) , Eosinophils (%) (Auto) , Basophils (%) (Auto) , Differential Total Cells Counted 100, Neutrophils % (Manual) 82H, Lymphocytes % (Manual) 9L, Monocytes % (Manual) 4, Eosinophils % (Manual) 0, Basophils % (Manual) 0, Band Neutrophils 5, Platelet Estimate Adequate, Platelet Morphology Normal, Polychromasia 1+, Hypochromasia 1+, Anisocytosis 1+, Sodium Level 147H, Potassium Level 2.7*L, Chloride Level 99, Carbon Dioxide Level > 45*H, Blood Urea Nitrogen 17, Creatinine 0.4L, Estimat Glomerular Filtration Rate > 60, Glucose Level 53#L, Calcium Level 9.1, Total Bilirubin 0.9, Aspartate Amino Tra nsf (AST/SGOT) 96H, Alanine Aminotransferase (ALT/SGPT) 75, Alkaline Phosphatase 99, Total Protein 7.3, Albumin 3.2L, Globulin 4.1, Albumin/Globulin Ratio 0.8L 08/11/20 09:33: Arterial Blood pH 7.495H, Arterial Blood Partial Pressure CO2 71.5*H, Arterial Blood Partial Pressure O2 40.8*L, Arterial Blood HCO3 53.9*H, Arterial Blood Oxygen Saturation 79.4*L, Arterial Blood Base Excess 26.7*H, Jacob Test Positive Current Medications Medications (Trade) Dose Ordered Sig/Milagro Route PRN Reason Start Time Stop Time Status Last Admin Dose Admin Acetaminophen (Tylenol) 650 mg Q4H PRN RECTAL Mild Pain (Pain Scale 1-3) 07/24/20 18:15 08/23/20 18:14 07/25/20 11:49 Acetaminophen (Tylenol) 650 mg Q6H PRN NG Mild Pain (Pain Scale 1-3) 07/26/20 08:30 08/25/20 08:29 08/09/20 18:15 Acetaminophen (Tylenol) 650 mg Q6H PRN NG Temp >100.5 07/26/20 08:30 08/25/20 08:29 08/10/20 20:57 Chlorhexidine Gluconate (Marycarmen-Hex 2%) 1 applic DAILY@1999 TOPIC 07/20/20 20:00 10/18/20 19:59 1/13/21 20:00 Dextrose (Dextrose 50%) 25 ml Q30M PRN IV Hypoglycemia 07/23/20 13:15 10/21/20 13:14 Dextrose (Dextrose 50%) 50 ml Q30M PRN IV Hypoglycemia 07/23/20 13:15 10/21/20 13:14 08/11/20 04:04 Dextrose/Sodium Chloride 1,000 ml @ 100 mls/hr Q10H PRN IV WHILE PRONING ONLY 07/24/20 17:45 08/23/20 17:44 08/10/20 05:33 Docusate Sodium (Colace) 100 mg EVERY 12 HOURS NG 07/27/20 21:00 08/26/20 20:59 08/10/20 20:55 Famotidine (Pepcid I.v.) 20 mg Q12HR IVP 08/04/20 21:00 09/03/20 20:59 08/11/20 09:18 Fluconazole (Diflucan) 100 mg Q24H NG 08/08/20 20:00 08/15/20 19:59 08/10/20 20:00 Insulin Aspart (NovoLOG) EVERY 6 HOURS SUBQ 07/28/20 00:00 10/21/20 15:59 08/11/20 13:00 Insulin Detemir (Levemir) 26 units EVERY 12 HOURS SUBQ 07/26/20 09:00 10/20/20 08:59 08/11/20 09:49 Methylprednisolone Sodium Succinate (Solu-MEDROL) 10 mg DAILY IVP 08/13/20 09:00 08/14/20 09:01 Methylprednisolone Sodium Succinate (Solu-MEDROL) 20 mg DAILY IVP 08/11/20 09:00 08/12/20 09:01 08/11/20 09:17 Midazolam HCl 100 mg/Sodium Chloride 200 ml @ 0 mls/hr Q24H IV 08/07/20 17:00 08/12/20 16:59 08/11/20 13:00 Piperacillin Sod/ Tazobactam Sod 3.375 gm/Sodium Chloride 110 ml @ 27.5 mls/hr EVERY 8 HOURS IVPB 08/09/20 11:30 08/14/20 11:29 08/11/20 13:22 Vitamin B Complex (Vitamin B Complex) 1 tab DAILY NG 07/24/20 09:00 10/09/20 08:59 08/11/20 09:17 Vitamin D (Vitamin D) 1,000 unit BEDTIME GT 07/27/20 21:00 08/13/20 09:29 08/10/20 20:55 Assessment/Plan Assessment/Plan acute hypoxemic respiratory failure COVID pneumonia Asthma elevated liver enzymes DNR ARDS with fibrosing phase pneumothorax elevated TG PLAN borderline oxygen saturation noted CT per surgery needs trach for chronic vent management---reduce PEEP as able- no on 10 monitor acid base status respiratory care ID noted DVT prophylaxis prognosis poor overall monitor respiratory status for change doubt will see improvement in oxygen needs likely due to fibrosing stage medications/laboratory data/nursing notes/ICU care reviewed in detail note reviewed and edited care discussed with RN and RT ICU time spent >40 minutes Elfego Price MD Aug 11, 2020 16:28
--- NOTE | 2020-08-11 18:00 | NUR ---
NURSE NOTES: Pt cleaned and repositioned.
--- NOTE | 2020-08-11 18:58 | NUR ---
NURSE HAND-OFF REPORT: Latest Vital Signs: Temperature 98.1 , Pulse 105 , B/P 117 /72 , Respiratory Rate 25 , O2 SAT 100 , Mechanical Ventilator, FiO2 100 % Peep 16 . EKG Rhythm: Sinus Tachycardia Rhythm change?: N MD Notified?: n/a MD Response: n/a Latest Bradley Fall Score: 50 Fall Risk: High Risk Safety Measures: Call light Within Reach, Bed Alarm Zone 1, Side Rails Side Rails x3, Bed position Low and Locked. Fall Precautions: Yellow Socks Yellow Gown Door Sign Patient Fall Education Report given to ELIER Lora.
--- NOTE | 2020-08-11 20:00 | NUR ---
NURSE NOTES: Report received from Maria Esther THAPA. Upon assessment pt is sedated with Score of -2 RASS; PERRLA. Unable to make needs known. Responsive to verbal and tactile stimuli. Pt on Vent saturating 92% on settings of AC 26 / Vt 500 / PEEP 10 / fiO2 of 100% Vitals 130/75. 99.1 F rectally. Pt running Glucerna 1.2 at 40 mL with 0 residual. Chest tube patent and intact. Low intermittent and bubbling noted on chest tube. DANIEL PICC running Versed at 7 mg/hr. Biswas draining well to gravity. Side rails up x3. Bed kept in lowest and locked position. Bed alarm on. Call light within reach. Will continue to monitor.
[2020-08-11] MEDS: Fluconazole 100mg tab NG SCH (20:37)
[2020-08-11] MEDS: Dyna-Hex 2% Top Sol 2oz TOPIC SCH (20:37)
[2020-08-11] MEDS: Vitamin D 1000 units Tab GT SCH (20:37)
[2020-08-11] MEDS: Acetaminophen 650mg/20.3ml NG PRN (20:41)
--- NOTE | 2020-08-11 22:06 | NUR ---
NURSE NOTES: Pt had fever of 100.5Rectal at start of shift. Cooling measures initiated and fever now resolved to 99.4 rectally. No distress noted. Rectal tube observed on patient; black pasty stool noted. Will continue monitoring.
[2020-08-12] VITALS (26 sets, daily range): BP systolic 104–151; BP diastolic 60–94
--- NOTE | 2020-08-12 00:15 | NUR ---
NURSE NOTES: Oral care provided and A&D ointment applied. Pt saturating 100% on prescribed vent settings. Temperature 97.9 rectally.
[2020-08-12] MEDS: Midazolam HCl 50mg/10ml vial 100 MG in NS 180 ML IV SCH ×3 (03:31→18:06)
--- NOTE | 2020-08-12 04:36 | NUR ---
NURSE NOTES: Bed bath and oral care provided. Pt running fever of 100.1. Cooling measures initiated. Sinus [place] 127 bpm and Tachypneic 26 rr. Will monitor.
[2020-08-12] MEDS: Piperacillin/Tazobactam 3.375 GM in NS 110 ML IVPB SCH ×3 (05:06→21:30)
[2020-08-12] MEDS: NovoLOG Insulin Flexpen SUBQ SCH ×5 (05:24→23:44)
[2020-08-12 05:25] LABS: HEMATOCRIT 31.5 % (42.0-52.0); HEMOGLOBIN 9.8 G/DL (14.2-18.0); MEAN CORPUSCULAR VOLUME 97 FL (80-99); PLATELET COUNT 275 K/UL (150-450); RED BLOOD COUNT 3.23 M/UL (4.70-6.10); RED CELL DISTRIBUTION WIDTH 15.8 % (11.6-14.8); WHITE BLOOD COUNT 18.9 K/UL (4.8-10.8)
--- NOTE | 2020-08-12 06:03 | NUR ---
NURSE NOTES: Per Ravi from lab, WBC appears to be elevated 27.6. Left message for ID MD. Current temperature decreased to 98.7 rectally. Awaiting further orders.
[2020-08-12 06:04] LABS: ALANINE AMINOTRANSFERASE 63 U/L (12-78); ALBUMIN 2.4 G/DL (3.4-5.0); ALBUMIN/GLOBULIN RATIO 0.7 (1.0-2.7); ALKALINE PHOSPHATASE 105 U/L (46-116); ASPARTATE AMINO TRANSFERASE 71 U/L (15-37); BILIRUBIN,TOTAL 0.8 MG/DL (0.2-1.0); BLOOD UREA NITROGEN 18 mg/dL (7-18); CALCIUM 8.7 MG/DL (8.5-10.1); CHLORIDE 105 MMOL/L (98-107); CREATININE 0.4 MG/DL (0.55-1.30); POTASSIUM 4.3 MMOL/L (3.5-5.1); SODIUM 147 MMOL/L (136-145)
[2020-08-12 06:19] LABS: CARBON DIOXIDE > 45 MMOL/L (21-32)
--- NOTE | 2020-08-12 07:07 | NUR ---
NURSE HAND-OFF REPORT: Latest Vital Signs: Temperature 98.4 , Pulse 123 , B/P 129 /75 , Respiratory Rate 28 , O2 SAT 89 , Mechanical Ventilator, O2 Flow Rate . Vital Sign Comment: Tachycardic EKG Rhythm: Sinus Tachycardia Rhythm change?: N MD Notified?: Ildefonso Diana at bedside for re-intubation MD Response: Latest Bradley Fall Score: 50 Fall Risk: High Risk Safety Measures: Call light Within Reach, Bed Alarm Zone 1, Side Rails Side Rails x3, Bed position Low and Locked. Fall Precautions: Yellow Socks Yellow Gown Door Sign Patient Fall Education Report given to ELIER Castro.
--- NOTE | 2020-08-12 07:08 | NUR ---
NURSE NOTES: Report received from Geno Bush RN. Patient is lightly sedated with Score of -2 RASS. Patient is orally intubated ETT 7.5, 25cm @ the lip line. Vent settings AC 26 / TV 500 / PEEP 16 and fiO2 of 100%; Sinus Rhythm on graduate intern. Patient remains Afebrile on a cooling blanket. NGT intact, running tube feeding of Glucerna 1.2 at 40mL/hr. Right lateral Upper Chest tube patent and intact. DANIEL PICC running Versed at 7 mg/hr. Biswas draining well with gravity to urometer. Side rails up x3. Bed kept in lowest and locked position. Bed alarm on. Airborne isolation observed. Will continue to monitor.
--- NOTE | 2020-08-12 08:30 | NUR ---
NURSE NOTES: Dr. Price in the unit. Aware of current vent settings.
[2020-08-12] MEDS: Docusate 100mg/10ml Liq NG SCH ×2 (09:00→21:30)
[2020-08-12] MEDS: Vitamin B Complex Tab NG SCH (09:14)
[2020-08-12] MEDS: Solu-MEDROL 40mg Inj IVP SCH (09:14)
[2020-08-12] MEDS: Levemir Flexpen SUBQ SCH ×2 (09:15→21:00)
--- NOTE | 2020-08-12 09:30 | NUR ---
NURSE NOTES: Dr. Price made aware regarding latest ABG results and current vent settings. No new order at this time. Will continue to monitor.
--- NOTE | 2020-08-12 10:45 | NUR ---
RD ASSESSMENT & RECOMMENDATIONS SEE CARE ACTIVITY FOR COMPLETE ASSESSMENT DAILY ESTIMATED NEEDS: Needs based on Critical care 72kg abw 22-28 kcals/kg 2139-4767 total kcals 1.2-2 g protein/kg 86-144 g total protein 25-30 mL/kg 0672-7257 total fluid mLs NUTRITION DIAGNOSIS: * Swallowing difficulty R/T respiratory failure as evidenced by pt now orally intubated, NPO, now w/ NGT to LIS. * Altered nutrition related lab values r/t hyperglycemia as evidenced by BG POC glu in the 300's-> 200's, pt on Solumedrol CURRENT TF:Glucerna 1.2 @ 40ml/hr ENTERAL NUTRITION RECOMMENDATIONS: Vital 1.2 for critical care and carb control @ goal of 55ml/hr x24 hrs to provide 1320ml, 1584kcal, 99g prot, 1071ml free water - When medically stable for feeds, initiate Vital 1.2 for critical care and carb control. - Advance as tolerated 10ml/hr q4-6 hrs to goal - Flush per , HOB over 30 degrees ADDITIONAL RECOMMENDATIONS: 1) Rec to check HgA1C for eval 2) Insulin regimen for improved BG- now on levemir + niss w/ elev BG 3) Monitor resp status, currently on high flow O2 w/ good po intake Now intubated (07/20), TF recs as above when medically appropriate 4) MONITOR NPO STATUS: now on TF at low rate, hypoglycemic event noted (BG 47) 5) As able, recalibrate bed scale d/t variable daily wts
--- NOTE | 2020-08-12 11:49 | Infectious Diseases Prog Note ---
Assessment/Plan Assessment/Plan antibiotics : zosyn, fluconazole A 1. COVID-19 pneumonia on 100 % Fi O2 of oxygen with O2 saturation 92 %. s/p ivermectin x 2 2. History of asthma. 3. Elevated liver function tests improving 4. klebsiella pneumonia 5. thrush P 1. continue zosyn 2. Continue solumedrol taper doses 3. continue fluconazole 4. Continue isolation. Subjective ROS Limited/Unobtainable: Yes Allergies: Coded Allergies: No Known Allergies (Unverified , 03/08/17) Objective Last 24 Hour Vital Signs Date Time Temp Pulse Resp B/P (MAP) Pulse Ox O2 Delivery O2 Flow Rate FiO2 08/12/20 11:00 138 29 138/75 (96) 92 08/12/20 10:00 139 31 148/80 (102) 91 08/12/20 09:00 130 31 130/75 (93) 91 08/12/20 09:00 31 Mechanical Ventilator 100 08/12/20 08:00 97.8 117 24 104/62 (76) 97 08/12/20 08:00 100 08/12/20 08:00 Mechanical Ventilator 08/12/20 08:00 24 Mechanical Ventilator 100 08/12/20 07:30 120 08/12/20 07:00 26 Mechanical Ventilator 100 08/12/20 07:00 119 26 104/60 (75) 99 08/12/20 06:00 27 Mechanical Ventilator 100 08/12/20 06:00 123 28 129/75 (93) 89 08/12/20 05:00 22 Mechanical Ventilator 100 08/12/20 05:00 125 26 133/78 (96) 97 08/12/20 04:00 112 08/12/20 04:00 100 08/12/20 04:00 Mechanical Ventilator 08/12/20 04:00 20 Mechanical Ventilator 100 08/12/20 04:00 103 22 139/71 (93) 94 08/12/20 03:31 24 100 08/12/20 03:24 127 31 100 08/12/20 03:00 28 Mechanical Ventilator 100 08/12/20 03:00 122 27 148/82 (104) 94 08/12/20 02:00 27 Mechanical Ventilator 100 08/12/20 02:00 116 26 132/68 (89) 96 08/12/20 01:00 99 25 121/83 (96) 100 08/12/20 01:00 22 Mechanical Ventilator 100 08/12/20 00:00 100 08/12/20 00:00 Mechanical Ventilator 08/12/20 00:00 98.4 91 27 129/78 (95) 100 08/12/20 00:00 20 100 08/12/20 00:00 111 08/11/20 23:26 102 28 100 08/11/20 23:00 97 23 147/88 (107) 100 08/11/20 23:00 19 100 08/11/20 22:00 99.1 114 27 125/80 (95) 100 08/11/20 22:00 114 27 100 08/11/20 22:00 20 Mechanical Ventilator 100 08/11/20 22:00 114 27 100 08/11/20 21:11 99.9 08/11/20 21:00 99.9 127 28 133/78 (96) 96 08/11/20 21:00 27 Mechanical Ventilator 100 08/11/20 20:00 Mechanical Ventilator 08/11/20 20:00 100 08/11/20 20:00 29 Mechanical Ventilator 100 08/11/20 20:00 119 08/11/20 20:00 100.5 133 28 130/75 (93) 91 08/11/20 19:23 110 27 100 08/11/20 19:00 28 Mechanical Ventilator 100 08/11/20 19:00 112 28 107/59 (75) 100 08/11/20 18:00 105 25 117/72 (87) 100 08/11/20 18:00 25 Mechanical Ventilator 100 08/11/20 17:00 25 Mechanical Ventilator 100 08/11/20 17:00 108 25 112/70 (84) 100 08/11/20 16:00 100 08/11/20 16:00 26 Mechanical Ventilator 100 08/11/20 16:00 122 08/11/20 16:00 98.1 120 26 115/71 (86) 100 08/11/20 16:00 Mechanical Ventilator 08/11/20 15:30 118 30 100 08/11/20 15:00 119 30 112/61 (78) 100 08/11/20 15:00 30 Mechanical Ventilator 100 08/11/20 14:00 133 27 130/81 (97) 95 08/11/20 14:00 27 Mechanical Ventilator 100 08/11/20 13:00 32 Mechanical Ventilator 100 08/11/20 13:00 144 38 154/96 (115) 81 08/11/20 12:00 145 08/11/20 12:00 99.0 134 37 155/82 (106) 79 08/11/20 12:00 Mechanical Ventilator 08/11/20 12:00 100 08/11/20 12:00 37 Mechanical Ventilator 100 Height (Feet): 5 Height (Inches): 6.00 Weight (Pounds): 209 HEENT: other - intubated Laboratory Tests Test 08/12/20 04:00 08/12/20 08:37 White Blood Count 18.9 K/UL (4.8-10.8) H Red Blood Count 3.23 M/UL (4.70-6.10) L Hemoglobin 9.8 G/DL (14.2-18.0) L Hematocrit 31.5 % (42.0-52.0) L Mean Corpuscular Volume 97 FL (80-99) Mean Corpuscular Hemoglobin 30.2 PG (27.0-31.0) Mean Corpuscular Hemoglobin Concent 31.0 G/DL (32.0-36.0) L Red Cell Distribution Width 15.8 % (11.6-14.8) H Platelet Count 275 K/UL (150-450) Mean Platelet Volume 7.6 FL (6.5-10.1) Neutrophils (%) (Auto) % (45.0-75.0) Lymphocytes (%) (Auto) % (20.0-45.0) Monocytes (%) (Auto) % (1.0-10.0) Eosinophils (%) (Auto) % (0.0-3.0) Basophils (%) (Auto) % (0.0-2.0) Differential Total Cells Counted 100 Neutrophils % (Manual) 86 % (45-75) H Lymphocytes % (Manual) 7 % (20-45) L Monocytes % (Manual) 6 % (1-10) Eosinophils % (Manual) 1 % (0-3) Basophils % (Manual) 0 % (0-2) Band Neutrophils 0 % (0-8) Platelet Estimate Adequate Platelet Morphology Normal Polychromasia 1+ Hypochromasia 1+ Anisocytosis 1+ Sodium Level 147 MMOL/L (136-145) H Potassium Level 4.3 MMOL/L (3.5-5.1) # Chloride Level 105 MMOL/L (98-107) Carbon Dioxide Level > 45 MMOL/L (21-32) *H Blood Urea Nitrogen 18 mg/dL (7-18) Creatinine 0.4 MG/DL (0.55-1.30) L Estimat Glomerular Filtration Rate > 60 mL/min (>60) Glucose Level 105 MG/DL (74-106) Calcium Level 8.7 MG/DL (8.5-10.1) Total Bilirubin 0.8 MG/DL (0.2-1.0) Aspartate Amino Transf (AST/SGOT) 71 U/L (15-37) H Alanine Aminotransferase (ALT/SGPT) 63 U/L (12-78) Alkaline Phosphatase 105 U/L (46-116) Total Protein 6.0 G/DL (6.4-8.2) L Albumin 2.4 G/DL (3.4-5.0) L Globulin 3.6 g/dL Albumin/Globulin Ratio 0.7 (1.0-2.7) L Arterial Blood pH 7.420 (7.350-7.450) Arterial Blood Partial Pressure CO2 79.1 mmHg (35.0-45.0) *H Arterial Blood Partial Pressure O2 49.2 mmHg (75.0-100.0) Arterial Blood HCO3 50.2 mmol/L (22.0-26.0) *H Arterial Blood Oxygen Saturation 84.5 % (95-100) *L Arterial Blood Base Excess 22.0 (-2-2) *H Jacob Test Positive Current Medications Medications (Trade) Dose Ordered Sig/Milagro Route PRN Reason Start Time Stop Time Status Last Admin Dose Admin Acetaminophen (Tylenol) 650 mg Q4H PRN RECTAL Mild Pain (Pain Scale 1-3) 07/24/20 18:15 08/23/20 18:14 07/25/20 11:49 Acetaminophen (Tylenol) 650 mg Q6H PRN NG Mild Pain (Pain Scale 1-3) 07/26/20 08:30 08/25/20 08:29 08/09/20 18:15 Acetaminophen (Tylenol) 650 mg Q6H PRN NG Temp >100.5 07/26/20 08:30 08/25/20 08:29 08/11/20 20:41 Chlorhexidine Gluconate (Marycarmen-Hex 2%) 1 applic DAILY@2000 TOPIC 07/20/20 20:00 10/18/20 19:59 08/11/20 20:37 Dextrose (Dextrose 50%) 25 ml Q30M PRN IV Hypoglycemia 07/23/20 13:15 10/21/20 13:14 Dextrose (Dextrose 50%) 50 ml Q30M PRN IV Hypoglycemia 07/23/20 13:15 10/21/20 13:14 08/11/20 04:04 Dextrose/Sodium Chloride 1,000 ml @ 100 mls/hr Q10H PRN IV WHILE PRONING ONLY 07/24/20 17:45 08/23/20 17:44 08/10/20 05:33 Docusate Sodium (Colace) 100 mg EVERY 12 HOURS NG 07/27/20 21:00 08/26/20 20:59 08/11/20 20:37 Famotidine (Pepcid I.v.) 20 mg Q12HR IVP 08/04/20 21:00 09/03/20 20:59 08/12/20 09:14 Fluconazole (Diflucan) 100 mg Q24H NG 08/08/20 20:00 08/15/20 19:59 08/11/20 20:37 Insulin Aspart (NovoLOG) EVERY 6 HOURS SUBQ 07/28/20 00:00 10/21/20 15:59 08/12/20 05:24 Insulin Detemir (Levemir) 26 units EVERY 12 HOURS SUBQ 07/26/20 09:00 10/20/20 08:59 08/12/20 09:15 Methylprednisolone Sodium Succinate (Solu-MEDROL) 10 mg DAILY IVP 08/13/20 09:00 08/14/20 09:01 Midazolam HCl 100 mg/Sodium Chloride 200 ml @ 0 mls/hr Q24H IV 08/07/20 17:00 08/12/20 16:59 08/12/20 03:31 Piperacillin Sod/ Tazobactam Sod 3.375 gm/Sodium Chloride 110 ml @ 27.5 mls/hr EVERY 8 HOURS IVPB 08/09/20 11:30 08/14/20 11:29 08/12/20 05:06 Vitamin B Complex (Vitamin B Complex) 1 tab DAILY NG 07/24/20 09:00 10/09/20 08:59 08/12/20 09:14 Vitamin D (Vitamin D) 1,000 unit BEDTIME GT 07/27/20 21:00 08/13/20 09:29 08/11/20 20:37 Jose Alberto MD Aug 12, 2020 11:49
--- NOTE | 2020-08-12 11:55 | Pulmonology Progress Note ---
Subjective ROS Limited/Unobtainable: Yes Constitutional: Reports: other Gastrointestinal/Abdominal: Denies: nausea, vomiting, diarrhea Musculoskeletal: Denies: pain Allergies: Coded Allergies: No Known Allergies (Unverified , 03/08/17) All Systems: reviewed and negative except above Subjective ct in place remains on high oxygen and PEEP reduced to 10 and desat noted and now increased on vent full code d/w nursing sedated Objective Last 24 Hour Vital Signs Date Time Temp Pulse Resp B/P (MAP) Pulse Ox O2 Delivery O2 Flow Rate FiO2 08/12/20 11:00 138 29 138/75 (96) 92 08/12/20 10:00 139 31 148/80 (102) 91 08/12/20 09:00 130 31 130/75 (93) 91 08/12/20 09:00 31 Mechanical Ventilator 100 08/12/20 08:00 97.8 117 24 104/62 (76) 97 08/12/20 08:00 100 08/12/20 08:00 Mechanical Ventilator 08/12/20 08:00 24 Mechanical Ventilator 100 08/12/20 07:30 120 08/12/20 07:00 26 Mechanical Ventilator 100 08/12/20 07:00 119 26 104/60 (75) 99 08/12/20 06:00 27 Mechanical Ventilator 100 08/12/20 06:00 123 28 129/75 (93) 89 08/12/20 05:00 22 Mechanical Ventilator 100 08/12/20 05:00 125 26 133/78 (96) 97 08/12/20 04:00 112 08/12/20 04:00 100 08/12/20 04:00 Mechanical Ventilator 08/12/20 04:00 20 Mechanical Ventilator 100 08/12/20 04:00 103 22 139/71 (93) 94 08/12/20 03:31 24 100 08/12/20 03:24 127 31 100 08/12/20 03:00 28 Mechanical Ventilator 100 08/12/20 03:00 122 27 148/82 (104) 94 08/12/20 02:00 27 Mechanical Ventilator 100 08/12/20 02:00 116 26 132/68 (89) 96 08/12/20 01:00 99 25 121/83 (96) 100 08/12/20 01:00 22 Mechanical Ventilator 100 08/12/20 00:00 100 08/12/20 00:00 Mechanical Ventilator 08/12/20 00:00 98.4 91 27 129/78 (95) 100 08/12/20 00:00 20 100 08/12/20 00:00 111 08/11/20 23:26 102 28 100 08/11/20 23:00 97 23 147/88 (107) 100 08/11/20 23:00 19 100 08/11/20 22:00 99.1 114 27 125/80 (95) 100 08/11/20 22:00 114 27 100 08/11/20 22:00 20 Mechanical Ventilator 100 08/11/20 22:00 114 27 100 08/11/20 21:11 99.9 08/11/20 21:00 99.9 127 28 133/78 (96) 96 08/11/20 21:00 27 Mechanical Ventilator 100 08/11/20 20:00 Mechanical Ventilator 08/11/20 20:00 100 08/11/20 20:00 29 Mechanical Ventilator 100 08/11/20 20:00 119 08/11/20 20:00 100.5 133 28 130/75 (93) 91 08/11/20 19:23 110 27 100 08/11/20 19:00 28 Mechanical Ventilator 100 08/11/20 19:00 112 28 107/59 (75) 100 08/11/20 18:00 105 25 117/72 (87) 100 08/11/20 18:00 25 Mechanical Ventilator 100 08/11/20 17:00 25 Mechanical Ventilator 100 08/11/20 17:00 108 25 112/70 (84) 100 08/11/20 16:00 100 08/11/20 16:00 26 Mechanical Ventilator 100 08/11/20 16:00 122 08/11/20 16:00 98.1 120 26 115/71 (86) 100 08/11/20 16:00 Mechanical Ventilator 08/11/20 15:30 118 30 100 08/11/20 15:00 119 30 112/61 (78) 100 08/11/20 15:00 30 Mechanical Ventilator 100 08/11/20 14:00 133 27 130/81 (97) 95 08/11/20 14:00 27 Mechanical Ventilator 100 08/11/20 13:00 32 Mechanical Ventilator 100 08/11/20 13:00 144 38 154/96 (115) 81 08/11/20 12:00 145 1/14/21 12:00 99.0 134 37 155/82 (106) 79 08/11/20 12:00 Mechanical Ventilator 08/11/20 12:00 100 08/11/20 12:00 37 Mechanical Ventilator 100 Intake and Output 08/11/20 08/12/20 19:00 07:00 Intake Total 1458.0 ml 877.69 ml Output Total 595 ml 610 ml Balance 863.0 ml 267.69 ml Free Water 20 ml 60 ml IV Total 958.0 ml 337.69 ml Tube Feeding 480 ml 480 ml Output Urine Total 485 ml 560 ml Stool Total 60 ml 50 ml Chest Tube Drainage Total 50 ml Objective deferred due to COVID Laboratory Tests 08/12/20 04:00: White Blood Count 18.9H, Red Blood Count 3.23L, Hemoglobin 9.8L, Hematocrit 31.5L, Mean Corpuscular Volume 97, Mean Corpuscular Hemoglobin 30.2, Mean Corpuscular Hemoglobin Concent 31.0L, Red Cell Distribution Width 15.8H, Platelet Count 275, Mean Platelet Volume 7.6, Neutrophils (%) (Auto) , Lymphocytes (%) (Auto) , Monocytes (%) (Auto) , Eosinophils (%) (Auto) , Basophils (%) (Auto) , Differential Total Cells Counted 100, Neutrophils % (Manual) 86H, Lymphocytes % (Manual) 7L, Monocytes % (Manual) 6, Eosinophils % (Manual) 1, Basophils % (Manual) 0, Band Neutrophils 0, Platelet Estimate Adequate, Platelet Morphology Normal, Polychromasia 1+, Hypochromasia 1+, Anisocytosis 1+, Sodium Level 147H, Potassium Level 4.3#, Chloride Level 105, Carbon Dioxide Level > 45*H, Blood Urea Nitrogen 18, Creatinine 0.4L, Estimat Glomerular Filtration Rate > 60, Glucose Level 105, Calcium Level 8.7, Total Bilirubin 0.8, Aspartate Amino Transf (AST/SGOT) 71H, Alanine Aminotransferase (ALT/SGPT) 63, Alkaline Phosphatase 105, Total Protein 6.0L, Albumin 2.4L, Globulin 3.6, Albumin/Globulin Ratio 0.7L 08/12/20 08:37: Arterial Blood pH 7.420, Arterial Blood Partial Pressure CO2 79.1*H, Arterial Blood Partial Pressure O2 49.2*L, Arterial Blood HCO3 50.2*H, Arterial Blood Oxygen Saturation 84.5*L, Arterial Blood Base Excess 22.0*H, Jacob Test Positive Current Medications Medications (Trade) Dose Ordered Sig/Milagro Route PRN Reason Start Time Stop Time Status Last Admin Dose Admin Acetaminophen (Tylenol) 650 mg Q4H PRN RECTAL Mild Pain (Pain Scale 1-3) 07/24/20 18:15 08/23/20 18:14 07/25/20 11:49 Acetaminophen (Tylenol) 650 mg Q6H PRN NG Mild Pain (Pain Scale 1-3) 07/26/20 08:30 08/25/20 08:29 08/09/20 18:15 Acetaminophen (Tylenol) 650 mg Q6H PRN NG Temp >100.5 07/26/20 08:30 08/25/20 08:29 08/11/20 20:41 Chlorhexidine Gluconate (Marycarmen-Hex 2%) 1 applic DAILY@2000 TOPIC 07/20/20 20:00 10/18/20 19:59 08/11/20 20:37 Dextrose (Dextrose 50%) 25 ml Q30M PRN IV Hypoglycemia 07/23/20 13:15 10/21/20 13:14 Dextrose (Dextrose 50%) 50 ml Q30M PRN IV Hypoglycemia 07/23/20 13:15 10/21/20 13:14 08/11/20 04:04 Dextrose/Sodium Chloride 1,000 ml @ 100 mls/hr Q10H PRN IV WHILE PRONING ONLY 07/24/20 17:45 08/23/20 17:44 08/10/20 05:33 Docusate Sodium (Colace) 100 mg EVERY 12 HOURS NG 07/27/20 21:00 08/26/20 20:59 08/11/20 20:37 Famotidine (Pepcid I.v.) 20 mg Q12HR IVP 08/04/20 21:00 09/03/20 20:59 08/12/20 09:14 Fluconazole (Diflucan) 100 mg Q24H NG 08/08/20 20:00 08/15/20 19:59 08/11/20 20:37 Insulin Aspart (NovoLOG) EVERY 6 HOURS SUBQ 07/28/20 00:00 10/21/20 15:59 08/12/20 05:24 Insulin Detemir (Levemir) 26 units EVERY 12 HOURS SUBQ 07/26/20 09:00 10/20/20 08:59 08/12/20 09:15 Methylprednisolone Sodium Succinate (Solu-MEDROL) 10 mg DAILY IVP 08/13/20 09:00 08/14/20 09:01 Midazolam HCl 100 mg/Sodium Chloride 200 ml @ 0 mls/hr Q24H IV 08/07/20 17:00 08/12/20 16:59 08/12/20 03:31 Piperacillin Sod/ Tazobactam Sod 3.375 gm/Sodium Chloride 110 ml @ 27.5 mls/hr EVERY 8 HOURS IVPB 08/09/20 11:30 08/14/20 11:29 08/12/20 05:06 Vitamin B Complex (Vitamin B Complex) 1 tab DAILY NG 07/24/20 09:00 10/09/20 08:59 08/12/20 09:14 Vitamin D (Vitamin D) 1,000 unit BEDTIME GT 07/27/20 21:00 08/13/20 09:29 08/11/20 20:37 Assessment/Plan Assessment/Plan acute hypoxemic respiratory failure COVID pneumonia Asthma elevated liver enzymes DNR ARDS with fibrosing phase pneumothorax elevated TG PLAN borderline oxygen saturation noted on max oxygen CT per surgery needs trach for chronic vent management---PEEP increased monitor acid base status respiratory care ID noted DVT prophylaxis prognosis poor overall for meaningful recovery monitor respiratory status for change doubt will see improvement in oxygen needs likely due to fibrosing stage medications/laboratory data/nursing notes/ICU care reviewed in detail note reviewed and edited care discussed with RN and RT ICU time spent >40 minutes Elfego Price MD Aug 12, 2020 11:55
--- NOTE | 2020-08-12 13:00 | NUR ---
NURSE NOTES: No signs and symptoms of hypoglycemia.
--- NOTE | 2020-08-12 13:24 | NUR ---
Personal Banking OfficerWhite Shoe Examiner SI: Respiratory Failure, Covid-PNA, ETT/Vent Support, pneumothorax-chest tube to suction T 998.9 (rectal), HR 117, RR 26, BP 130/81 AC 26, TV 500, PEEP 16, FiO2 100%, O2 Sat 95% WBC 18.9, BUN 18, Creatinine 0.4, CO2 >45 Cxray increased but small rt pneumothorax, unchanged bilateral infiltrates IS: Midazolam GTT Solu-Medrol IV QD Pepcid IV q 12 h Zosyn IV q 8 hrs Pepcid IV q 12 h D5/NS at 100cc/hr ICU Status
--- NOTE | 2020-08-12 13:26 | Diagnostic Imaging Report ---
Indication: Dyspnea Technique: One view of the chest Comparison: 08/11/2020 Findings: Right chest tube remains in place. Right apical pneumothorax is stable to slightly improved. Interim development of a left pneumothorax, estimated 20-30%. The heart size is normal. Stable satisfactory positions of endotracheal and orogastric tubes, left arm PICC. Bilateral infiltrates are unchanged Impression: New left pneumothorax, 20-30%. This finding was phoned to Dr. Butler at the time of interpretation Slightly smaller right pneumothorax. Right chest tube in place. Unchanged bilateral infiltrates
--- NOTE | 2020-08-12 14:25 | NUR ---
RADIOLOGY DEPT., CHEST X-RAY DONE.-P.DYE
--- NOTE | 2020-08-12 15:02 | General Progress Note ---
Subjective ROS Limited/Unobtainable: Yes Constitutional: Reports: no symptoms HEENT: Reports: no symptoms Cardiovascular: Reports: edema Respiratory: Reports: shortness of breath Gastrointestinal/Abdominal: Reports: difficulty swallowing Genitourinary: Reports: no symptoms Neurologic/Psychiatric: Reports: no symptoms Endocrine: Reports: no symptoms Hematologic/Lymphatic: Reports: anemia Allergies: Coded Allergies: No Known Allergies (Unverified , 03/08/17) All Systems: reviewed and negative except above Subjective no change. no fever or chills. intubated and sedated. per staff responsive. on feeds. low k Objective Last 24 Hour Vital Signs Date Time Temp Pulse Resp B/P (MAP) Pulse Ox O2 Delivery O2 Flow Rate FiO2 08/12/20 14:30 103 25 123/66 (85) 98 08/12/20 14:00 109 27 135/72 (93) 95 08/12/20 13:00 117 26 130/81 (97) 95 08/12/20 12:00 99.9 129 30 122/63 (82) 93 08/12/20 12:00 Mechanical Ventilator 08/12/20 12:00 121 08/12/20 12:00 100 08/12/20 11:00 138 29 138/75 (96) 92 08/12/20 10:00 139 31 148/80 (102) 91 08/12/20 09:00 130 31 130/75 (93) 91 08/12/20 09:00 31 Mechanical Ventilator 100 08/12/20 08:00 97.8 117 24 104/62 (76) 97 08/12/20 08:00 100 08/12/20 08:00 Mechanical Ventilator 08/12/20 08:00 24 Mechanical Ventilator 100 08/12/20 07:30 120 08/12/20 07:00 26 Mechanical Ventilator 100 08/12/20 07:00 119 26 104/60 (75) 99 08/12/20 06:00 27 Mechanical Ventilator 100 08/12/20 06:00 123 28 129/75 (93) 89 08/12/20 05:00 22 Mechanical Ventilator 100 08/12/20 05:00 125 26 133/78 (96) 97 08/12/20 04:00 112 08/12/20 04:00 100 08/12/20 04:00 Mechanical Ventilator 08/12/20 04:00 20 Mechanical Ventilator 100 08/12/20 04:00 103 22 139/71 (93) 94 08/12/20 03:31 24 100 08/12/20 03:24 127 31 100 08/12/20 03:00 28 Mechanical Ventilator 100 08/12/20 03:00 122 27 148/82 (104) 94 08/12/20 02:00 27 Mechanical Ventilator 100 08/12/20 02:00 116 26 132/68 (89) 96 08/12/20 01:00 99 25 121/83 (96) 100 08/12/20 01:00 22 Mechanical Ventilator 100 08/12/20 00:00 100 08/12/20 00:00 Mechanical Ventilator 08/12/20 00:00 98.4 91 27 129/78 (95) 100 08/12/20 00:00 20 100 08/12/20 00:00 111 08/11/20 23:26 102 28 100 08/11/20 23:00 97 23 147/88 (107) 100 08/11/20 23:00 19 100 08/11/20 22:00 99.1 114 27 125/80 (95) 100 08/11/20 22:00 114 27 100 08/11/20 22:00 20 Mechanical Ventilator 100 08/11/20 22:00 114 27 100 08/11/20 21:11 99.9 08/11/20 21:00 99.9 127 28 133/78 (96) 96 08/11/20 21:00 27 Mechanical Ventilator 100 08/11/20 20:00 Mechanical Ventilator 08/11/20 20:00 100 08/11/20 20:00 29 Mechanical Ventilator 100 08/11/20 20:00 119 08/11/20 20:00 100.5 133 28 130/75 (93) 91 08/11/20 19:23 110 27 100 08/11/20 19:00 28 Mechanical Ventilator 100 08/11/20 19:00 112 28 107/59 (75) 100 08/11/20 18:00 105 25 117/72 (87) 100 08/11/20 18:00 25 Mechanical Ventilator 100 08/11/20 17:00 25 Mechanical Ventilator 100 08/11/20 17:00 108 25 112/70 (84) 100 08/11/20 16:00 100 08/11/20 16:00 26 Mechanical Ventilator 100 08/11/20 16:00 122 08/11/20 16:00 98.1 120 26 115/71 (86) 100 08/11/20 16:00 Mechanical Ventilator 08/11/20 15:30 118 30 100 Intake and Output 08/11/20 08/12/20 19:00 07:00 Intake Total 1458.0 ml 877.69 ml Output Total 595 ml 610 ml Balance 863.0 ml 267.69 ml Free Water 20 ml 60 ml IV Total 958.0 ml 337.69 ml Tube Feeding 480 ml 480 ml Output Urine Total 485 ml 560 ml Stool Total 60 ml 50 ml Chest Tube Drainage Total 50 ml Laboratory Tests 08/12/20 04:00: White Blood Count 18.9H, Red Blood Count 3.23L, Hemoglobin 9.8L, Hematocrit 31.5L, Mean Corpuscular Volume 97, Mean Corpuscular Hemoglobin 30.2, Mean Corpuscular Hemoglobin Concent 31.0L, Red Cell Distribution Width 15.8H, Platelet Count 275, Mean Platelet Volume 7.6, Neutrophils (%) (Auto) , Lymphocytes (%) (Auto) , Monocytes (%) (Auto) , Eosinophils (%) (Auto) , Basophils (%) (Auto) , Differential Total Cells Counted 100, Neutrophils % (Manual) 86H, Lymphocytes % (Manual) 7L, Monocytes % (Manual) 6, Eosinophils % (Manual) 1, Basophils % (Manual) 0, Band Neutrophils 0, Platelet Estimate Adequate, Platelet Morphology Normal, Polychromasia 1+, Hypochromasia 1+, Anisocytosis 1+, Sodium Level 147H, Potassium Level 4.3#, Chloride Level 105, Carbon Dioxide Level > 45*H, Blood Urea Nitrogen 18, Creatinine 0.4L, Estimat Glomerular Filtration Rate > 60, Glucose Level 105, Calcium Level 8.7, Total Bilirubin 0.8, Aspartate Amino Transf (AST/SGOT) 71H, Alanine Aminotransferase (ALT/SGPT) 63, Alkaline Phosphatase 105, Total Protein 6.0L, Albumin 2.4L, Globulin 3.6, Albumin/Globulin Ratio 0.7L 08/12/20 08:37: Arterial Blood pH 7.420, Arterial Blood Partial Pressure CO2 79.1*H, Arterial B lood Partial Pressure O2 49.2*L, Arterial Blood HCO3 50.2*H, Arterial Blood Oxygen Saturation 84.5*L, Arterial Blood Base Excess 22.0*H, Jacob Test Positive Height (Feet): 5 Height (Inches): 6.00 Weight (Pounds): 209 Objective deferred Assessment/Plan Problem List: (1) Coronavirus infection ICD Codes: B34.2 - Coronavirus infection, unspecified SNOMED: 690509704 (2) Respiratory failure ICD Codes: J96.90 - Respiratory failure, unspecified, unspecified whether with hypoxia or hypercapnia SNOMED: 125298636 (3) Hypercapnia ICD Codes: R06.89 - Other abnormalities of breathing SNOMED: 87060325, 225663454 (4) Hypoxia ICD Codes: R09.02 - Hypoxemia SNOMED: 819401959 (5) Asthma ICD Codes: J45.909 - Unspecified asthma, uncomplicated SNOMED: 096470022, 963295441 (6) Pneumothorax ICD Codes: J93.9 - Pneumothorax, unspecified SNOMED: 94764348 Status: progressing, not improved Assessment/Plan: vent support wean fio2 and peep as able resp care/suctioning as needed monitor for bleeding. off lovenox due to oral bleeding monitor plts- trending up scd iv abx per id replace k remains critical and guarded d/w brother- dnr but still wants all other aggressive rx attempted to transfer for higher level of care- no accepting hospitals so far Rolando Cherry MD Aug 12, 2020 15:02
--- NOTE | 2020-08-12 16:20 | Surgery Progress Note ---
Surgery Progress Note Subjective Procedure Performed right chest tube insertion Additional Comments cxr noted left ptx enlarging left chest tube placed Objective Last 24 Hour Vital Signs Date Time Temp Pulse Resp B/P (MAP) Pulse Ox O2 Delivery O2 Flow Rate FiO2 08/12/20 15:00 103 26 115/76 (89) 95 08/12/20 15:00 26 Mechanical Ventilator 100 08/12/20 14:30 103 25 123/66 (85) 98 08/12/20 14:00 109 27 135/72 (93) 95 08/12/20 14:00 27 Mechanical Ventilator 100 08/12/20 13:00 117 26 130/81 (97) 95 08/12/20 13:00 26 Mechanical Ventilator 100 08/12/20 12:00 99.9 129 30 122/63 (82) 93 08/12/20 12:00 Mechanical Ventilator 08/12/20 12:00 30 Mechanical Ventilator 100 08/12/20 12:00 121 08/12/20 12:00 100 08/12/20 11:30 132 31 100 08/12/20 11:00 138 29 138/75 (96) 92 08/12/20 11:00 29 Mechanical Ventilator 100 08/12/20 10:00 139 31 148/80 (102) 91 08/12/20 10:00 31 Mechanical Ventilator 100 08/12/20 09:00 130 31 130/75 (93) 91 08/12/20 09:00 31 Mechanical Ventilator 100 08/12/20 08:00 97.8 117 24 104/62 (76) 97 08/12/20 08:00 100 08/12/20 08:00 Mechanical Ventilator 08/12/20 08:00 24 Mechanical Ventilator 100 08/12/20 07:30 120 08/12/20 07:30 113 28 100 08/12/20 07:00 26 Mechanical Ventilator 100 08/12/20 07:00 119 26 104/60 (75) 99 08/12/20 06:00 27 Mechanical Ventilator 100 08/12/20 06:00 123 28 129/75 (93) 89 08/12/20 05:00 22 Mechanical Ventilator 100 08/12/20 05:00 125 26 133/78 (96) 97 08/12/20 04:00 112 08/12/20 04:00 100 08/12/20 04:00 Mechanical Ventilator 08/12/20 04:00 20 Mechanical Ventilator 100 08/12/20 04:00 103 22 139/71 (93) 94 08/12/20 03:31 24 100 08/12/20 03:24 127 31 100 08/12/20 03:00 28 Mechanical Ventilator 100 08/12/20 03:00 122 27 148/82 (104) 94 08/12/20 02:00 27 Mechanical Ventilator 100 08/12/20 02:00 116 26 132/68 (89) 96 08/12/20 01:00 99 25 121/83 (96) 100 08/12/20 01:00 22 Mechanical Ventilator 100 08/12/20 00:00 100 08/12/20 00:00 Mechanical Ventilator 08/12/20 00:00 98.4 91 27 129/78 (95) 100 08/12/20 00:00 20 100 08/12/20 00:00 111 08/11/20 23:26 102 28 100 08/11/20 23:00 97 23 147/88 (107) 100 08/11/20 23:00 19 100 08/11/20 22:00 99.1 114 27 125/80 (95) 100 08/11/20 22:00 114 27 100 08/11/20 22:00 20 Mechanical Ventilator 100 08/11/20 22:00 114 27 100 08/11/20 21:11 99.9 08/11/20 21:00 99.9 127 28 133/78 (96) 96 08/11/20 21:00 27 Mechanical Ventilator 100 08/11/20 20:00 Mechanical Ventilator 08/11/20 20:00 100 08/11/20 20:00 29 Mechanical Ventilator 100 08/11/20 20:00 119 08/11/20 20:00 100.5 133 28 130/75 (93) 91 08/11/20 19:23 110 27 100 08/11/20 19:00 28 Mechanical Ventilator 100 08/11/20 19:00 112 28 107/59 (75) 100 08/11/20 18:00 105 25 117/72 (87) 100 08/11/20 18:00 25 Mechanical Ventilator 100 08/11/20 17:00 25 Mechanical Ventilator 100 08/11/20 17:00 108 25 112/70 (84) 100 I&O Intake and Output 08/11/20 08/12/20 19:00 07:00 Intake Total 1458.0 ml 877.69 ml Output Total 595 ml 610 ml Balance 863.0 ml 267.69 ml Free Water 20 ml 60 ml IV Total 958.0 ml 337.69 ml Tube Feeding 480 ml 480 ml Output Urine Total 485 ml 560 ml Stool Total 60 ml 50 ml Chest Tube Drainage Total 50 ml Dressing: saturated Cardiovascular: RSR Respiratory: decreased breath sounds Abdomen: soft, non-tender, present bowel sounds Extremities: no tenderness, no cyanosis Laboratory Tests Test 08/12/20 04:00 08/12/20 08:37 White Blood Count 18.9 K/UL (4.8-10.8) H Red Blood Count 3.23 M/UL (4.70-6.10) L Hemoglobin 9.8 G/DL (14.2-18.0) L Hematocrit 31.5 % (42.0-52.0) L Mean Corpuscular Volume 97 FL (80-99) Mean Corpuscular Hemoglobin 30.2 PG (27.0-31.0) Mean Corpuscular Hemoglobin Concent 31.0 G/DL (32.0-36.0) L Red Cell Distribution Width 15.8 % (11.6-14.8) H Platelet Count 275 K/UL (150-450) Mean Platelet Volume 7.6 FL (6.5-10.1) Neutrophils (%) (Auto) % (45.0-75.0) Lymphocytes (%) (Auto) % (20.0-45.0) Monocytes (%) (Auto) % (1.0-10.0) Eosinophils (%) (Auto) % (0.0-3.0) Basophils (%) (Auto) % (0.0-2.0) Differential Total Cells Counted 100 Neutrophils % (Manual) 86 % (45-75) H Lymphocytes % (Manual) 7 % (20-45) L Monocytes % (Manual) 6 % (1-10) Eosinophils % (Manual) 1 % (0-3) Basophils % (Manual) 0 % (0-2) Band Neutrophils 0 % (0-8) Platelet Estimate Adequate Platelet Morphology Normal Polychromasia 1+ Hypochromasia 1+ Anisocytosis 1+ Sodium Level 147 MMOL/L (136-145) H Potassium Level 4.3 MMOL/L (3.5-5.1) # Chloride Level 105 MMOL/L (98-107) Carbon Dioxide Level > 45 MMOL/L (21-32) *H Blood Urea Nitrogen 18 mg/dL (7-18) Creatinine 0.4 MG/DL (0.55-1.30) L Estimat Glomerular Filtration Rate > 60 mL/min (>60) Glucose Level 105 MG/DL (74-106) Calcium Level 8.7 MG/DL (8.5-10.1) Total Bilirubin 0.8 MG/DL (0.2-1.0) Aspartate Amino Transf (AST/SGOT) 71 U/L (15-37) H Alanine Aminotransferase (ALT/SGPT) 63 U/L (12-78) Alkaline Phosphatase 105 U/L (46-116) Total Protein 6.0 G/DL (6.4-8.2) L Albumin 2.4 G/DL (3.4-5.0) L Globulin 3.6 g/dL Albumin/Globulin Ratio 0.7 (1.0-2.7) L Arterial Blood pH 7.420 (7.350-7.450) Arterial Blood Partial Pressure CO2 79.1 mmHg (35.0-45.0) *H Arterial Blood Partial Pressure O2 49.2 mmHg (75.0-100.0) Arterial Blood HCO3 50.2 mmol/L (22.0-26.0) *H Arterial Blood Oxygen Saturation 84.5 % (95-100) *L Arterial Blood Base Excess 22.0 (-2-2) *H Jacob Test Positive Plan Problems: (1) Pneumothorax Assessment & Plan: 31M covid on vent peep 16 fi02 100 right ptx s/p right chest tube ett complication replaced 07/01 chest tube vac replaced this AM as well given malfunction high risk low tv cxr noted ill appearing tube and lines checked will need to monitor closely unable to wean vent at this time cont current care plan Right pneumothorax is slightly increased from the prior exam, still small. Right chest tube remains in place. Stable satisfactory position of endotracheal and orogastric tubes. Left arm PICC remain stable. Previously demonstrated pneumomediastinum is not definitely evident currently. There is marked improvement of previously demonstrated right supraclavicular subcutaneous emphysema, with mild residual. Bilateral infiltrates remain worsening prognosis guarded chest tube stable but leak with high peep bilateral chest tubes placed now bilateral ptx (2) Respiratory failure (3) Coronavirus infection (4) Diabetes (5) Hypercapnia (6) Hypoxia (7) Asthma (8) HTN (hypertension) (9) Obesity (BMI 30-39.9) (10) Acute respiratory distress syndrome (ARDS) due to 2019-nCoV (11) Acute hypoxemic respiratory failure due to COVID-19 (12) Bradycardia (13) Laceration Mulugeta Butler Aug 12, 2020 16:20
--- NOTE | 2020-08-12 16:22 | Operative Note - PDOC ---
Operative Note Operative Note Pre-op Diagnosis: left expanding pneumothorax covid + Procedure: left chest tube insertion Post-op Diagnosis: same as pre-op Surgeon: sae butler md Anesthesia: local Specimen: none Complications: none Condition: unstable Fluids: none Estimated Blood Loss: minimal Drains: other Implant(s) used?: No Indications for Procedure new left worsening ptx Description of Procedure left thoravent placed site cleaned prepped and draped local infiltrated small skin incision made thora vent placed using standard method without complication placed to vac cxr ordered Sae Butler Aug 12, 2020 16:22
--- NOTE | 2020-08-12 17:10 | Diagnostic Imaging Report ---
Indication: Status post vent catheter placement for pneumothorax Technique: One view of the chest Comparison: 8 hours earlier Findings: Interim placement of a left chest vent catheter. There is interim slight decrease in size of previously demonstrated pneumothorax. Catheter position appears appropriate. Other tube and line positions are stable. Right lung infiltrates persist Impression: Slightly decreased left pneumothorax, status post thoracic vent catheter placement.
--- NOTE | 2020-08-12 19:30 | NUR ---
NURSE HAND-OFF REPORT: Latest Vital Signs: Temperature 98.0 , Pulse 79 , B/P 127 /75 , Respiratory Rate 24 , O2 SAT 99 , Mechanical Ventilator, O2 Flow Rate . Vital Sign Comment: lightly sedated RASS -2 EKG Rhythm: Sinus Rhythm Rhythm change?: N Latest Bradley Fall Score: 50 Fall Risk: High Risk Safety Measures: Call light Within Reach, Bed Alarm Zone 1, Side Rails Side Rails x3, Bed position Low and Locked. Fall Precautions: Yellow Socks Yellow Gown Door Sign Patient Fall Education Report given to Geno Ricardo RN.
--- NOTE | 2020-08-12 19:30 | NUR ---
NURSE NOTES: Received patient from ELIER Castro. Will continue plan of care.
--- NOTE | 2020-08-12 20:00 | NUR ---
NURSE NOTES: Patient is intubated; ETT 7.5 @ 25cm to the left lipline to vent with settings AC:26, TV:500, FiO2:100%, PEEP:16. Left nare NGT in place and running Glucerna 1.2 @ 40ml/hr and tolerating. On Versed @ 7mg via left upper arm PICC; mentation of RASS -2 lightly sedated, opens eyes to touch and voice, can nod to simple questions. Rectal tube and aleman catheter in place and draining. Right chest tube and newly placed left thora-vent intact and hooked onto low intermittent wall suction. Cooling blanket on, pt afebrile. Will continue plan of care.
[2020-08-12] MEDS: Dyna-Hex 2% Top Sol 2oz TOPIC SCH (21:29)
[2020-08-12] MEDS: Vitamin D 1000 units Tab GT SCH (21:30)
[2020-08-12] MEDS: Fluconazole 100mg tab NG SCH (21:30)
--- NOTE | 2020-08-12 22:00 | NUR ---
NURSE NOTES: Patient mentation has decreased since the previous night. Continues to nod to name and simple questions but energy seems to have significantly decreased.
[2020-08-13] VITALS (40 sets, daily range): BP systolic 96–163; BP diastolic 61–103
--- NOTE | 2020-08-13 | NUR ---
NURSE NOTES: Bilateral chest pleural-vac continues at low intermittent suctioning, Vital signs are stable at the moment.
--- NOTE | 2020-08-13 02:00 | NUR ---
NURSE NOTES: Turned and repositioned. Light oral care done, no active oral bleeding.
--- NOTE | 2020-08-13 04:00 | NUR ---
NURSE NOTES: Bed bath given, linens changed, turned and repositioned. right chest tube and left thora-vac intact and continues on intermittent suction.
[2020-08-13 04:59] LABS: HEMOGLOBIN 9.4 G/DL (14.2-18.0); MEAN CORPUSCULAR VOLUME 99 FL (80-99); PLATELET COUNT 312 K/UL (150-450); RED BLOOD COUNT 3.04 M/UL (4.70-6.10); RED CELL DISTRIBUTION WIDTH 16.8 % (11.6-14.8); WHITE BLOOD COUNT 18.6 K/UL (4.8-10.8)
--- NOTE | 2020-08-13 05:00 | NUR ---
NURSE NOTES: Rectal temp 100.5F. Tylenol given, ice packs placed and cold water flushed via NGT.
[2020-08-13] MEDS: Acetaminophen 650mg/20.3ml NG PRN (05:06)
[2020-08-13] MEDS: Piperacillin/Tazobactam 3.375 GM in NS 110 ML IVPB SCH (05:07)
[2020-08-13] MEDS: NovoLOG Insulin Flexpen SUBQ SCH ×3 (05:12→18:33)
[2020-08-13 05:56] LABS: ALANINE AMINOTRANSFERASE 65 U/L (12-78); ALBUMIN 2.2 G/DL (3.4-5.0); ALBUMIN/GLOBULIN RATIO 0.6 (1.0-2.7); ALKALINE PHOSPHATASE 107 U/L (46-116); ASPARTATE AMINO TRANSFERASE 63 U/L (15-37); BILIRUBIN,TOTAL 0.7 MG/DL (0.2-1.0); BLOOD UREA NITROGEN 21 mg/dL (7-18); CALCIUM 8.5 MG/DL (8.5-10.1); CHLORIDE 105 MMOL/L (98-107); CREATININE 0.4 MG/DL (0.55-1.30); POTASSIUM 4.6 MMOL/L (3.5-5.1); SODIUM 144 MMOL/L (136-145)
[2020-08-13 05:57] LABS: CARBON DIOXIDE 43 MMOL/L (21-32)
--- NOTE | 2020-08-13 06:15 | NUR ---
NURSE NOTES: Versed tirated to 10mg @ 0340 per protocol; patient became tachycardic and hypertensive. BP:125/86, HR:124 currently.
--- NOTE | 2020-08-13 06:15 | NUR ---
NURSE NOTES: Rectal temp down to 98.9F, cooling measures remains on.
[2020-08-13] MEDS: Midazolam HCl 50mg/10ml vial 100 MG in NS 180 ML IV SCH ×2 (07:03→16:12)
--- NOTE | 2020-08-13 07:50 | NUR ---
NURSE NOTES: Dr. Cherry updated at the bedside regarding the patient currently ventilator setting on AC 26, TV: 500, FIO2 of 100% and peep of 16. undated on the chemistry panel form this morning blood draw. no orders given at this time.
[2020-08-13] MEDS: Docusate 100mg/10ml Liq NG SCH ×2 (08:39→21:00)
[2020-08-13] MEDS: Solu-MEDROL 40mg Inj IVP SCH (08:39)
[2020-08-13] MEDS: Vitamin B Complex Tab NG SCH (08:39)
[2020-08-13] MEDS: Levemir Flexpen SUBQ SCH ×2 (08:41→21:14)
--- NOTE | 2020-08-13 10:15 | NUR ---
NURSE NOTES: Dr. Price updated on the patient status and results form the ABG, patient remains unable to have the oxygen level or peep to be titrated. he is currently running versed at 10mg/hr to achieve rass scale on -2, will continue to monitor.
--- NOTE | 2020-08-13 11:50 | NUR ---
NURSE NOTES: Called [facility] @ [phone] spoke to Alejandro. Patient was declined. No transfers are being taken at this time 2/2 bed capacity. Called [facility] and spoke to Manish @ [phone] and patient was declined. No transfers are being taken 2/2 to bed capacity.
--- NOTE | 2020-08-13 12:20 | Surgery Progress Note ---
Surgery Progress Note Subjective Procedure Performed left chest tube insertion Additional Comments ill appearing on support cxr noted chest tubes okay Objective Last 24 Hour Vital Signs Date Time Temp Pulse Resp B/P (MAP) Pulse Ox O2 Delivery O2 Flow Rate FiO2 08/13/20 11:30 95 27 116/75 (89) 95 08/13/20 11:00 92 26 118/76 (90) 95 08/13/20 10:00 85 24 119/83 (95) 96 08/13/20 09:30 88 22 130/85 (100) 97 08/13/20 09:00 89 24 124/92 (103) 99 08/13/20 08:30 102 26 142/97 (112) 96 08/13/20 08:00 Mechanical Ventilator 08/13/20 08:00 96.2 101 25 133/103 (113) 95 08/13/20 08:00 100 08/13/20 07:30 106 24 123/86 (98) 95 08/13/20 07:03 26 Mechanical Ventilator 100 08/13/20 07:00 106 26 122/89 (100) 08/13/20 06:40 87 29 100 08/13/20 06:25 26 Mechanical Ventilator 100 08/13/20 06:15 98.9 120 24 125/86 (99) 08/13/20 06:00 127 30 110/78 (89) 08/13/20 05:36 100.1 08/13/20 05:25 26 Mechanical Ventilator 100 08/13/20 05:00 138 26 132/77 (95) 08/13/20 04:25 26 Mechanical Ventilator 100 08/13/20 04:10 26 Mechanical Ventilator 100 08/13/20 04:00 100 08/13/20 04:00 100.5 136 25 142/85 (104) 95 08/13/20 04:00 Mechanical Ventilator 08/13/20 03:55 26 Mechanical Ventilator 100 08/13/20 03:40 26 Mechanical Ventilator 100 08/13/20 03:15 130 08/13/20 03:06 26 Mechanical Ventilator 100 08/13/20 03:00 132 29 163/87 (112) 95 08/13/20 02:06 26 Mechanical Ventilator 100 08/13/20 02:00 125 30 138/77 (97) 96 08/13/20 01:15 124 31 100 08/13/20 01:06 26 Mechanical Ventilator 100 08/13/20 01:00 126 29 160/92 (114) 94 08/13/20 00:06 26 Mechanical Ventilator 100 08/13/20 00:00 100 08/13/20 00:00 98.3 117 27 147/85 (105) 95 08/13/20 00:00 Mechanical Ventilator 08/12/20 23:14 113 08/12/20 23:06 26 Mechanical Ventilator 100 08/12/20 23:00 107 26 151/93 (112) 98 08/12/20 22:06 26 Mechanical Ventilator 100 08/12/20 22:00 100 27 147/82 (103) 99 08/12/20 21:06 26 Mechanical Ventilator 100 08/12/20 21:00 91 24 129/77 (94) 99 08/12/20 20:06 26 Mechanical Ventilator 100 08/12/20 20:00 Mechanical Ventilator 08/12/20 20:00 97.8 94 26 125/73 (90) 100 08/12/20 19:47 86 08/12/20 19:34 84 28 100 08/12/20 19:06 24 Mechanical Ventilator 100 08/12/20 19:00 79 24 127/75 (92) 99 08/12/20 18:06 19 Mechanical Ventilator 100 08/12/20 18:00 83 24 129/72 (91) 100 08/12/20 17:00 91 15 146/87 (106) 100 08/12/20 17:00 15 Mechanical Ventilator 100 08/12/20 16:30 85 18 140/94 (109) 100 08/12/20 16:00 Mechanical Ventilator 08/12/20 16:00 96 08/12/20 16:00 22 Mechanical Ventilator 100 08/12/20 16:00 100 08/12/20 16:00 98.0 81 22 127/73 (91) 100 08/12/20 15:10 94 26 100 08/12/20 15:00 103 26 115/76 (89) 95 08/12/20 15:00 26 Mechanical Ventilator 100 08/12/20 14:30 103 25 123/66 (85) 98 08/12/20 14:00 109 27 135/72 (93) 95 08/12/20 14:00 27 Mechanical Ventilator 100 08/12/20 13:00 117 26 130/81 (97) 95 08/12/20 13:00 26 Mechanical Ventilator 100 I&O Intake and Output 08/12/20 08/13/20 19:00 07:00 Intake Total 883.73 ml 829.38 ml Output Total 470 ml 824 ml Balance 413.73 ml 5.38 ml IV Total 343.73 ml 349.38 ml Tube Feeding 480 ml 480 ml Other 60 ml Output Urine Total 465 ml 660 ml Stool Total 5 ml 150 ml Chest Tube Drainage Total 14 ml Dressing: other Wound: other Cardiovascular: RSR Respiratory: decreased breath sounds Abdomen: soft, non-tender, present bowel sounds, non-distended Extremities: no tenderness, no cyanosis Laboratory Tests Test 08/13/20 04:00 08/13/20 09:21 White Blood Count 18.6 K/UL (4.8-10.8) H Red Blood Count 3.04 M/UL (4.70-6.10) L Hemoglobin 9.4 G/DL (14.2-18.0) L Hematocrit 30.0 % (42.0-52.0) L Mean Corpuscular Volume 99 FL (80-99) Mean Corpuscular Hemoglobin 31.0 PG (27.0-31.0) Mean Corpuscular Hemoglobin Concent 31.4 G/DL (32.0-36.0) L Red Cell Distribution Width 16.8 % (11.6-14.8) H Platelet Count 312 K/UL (150-450) Mean Platelet Volume 7.4 FL (6.5-10.1) Neutrophils (%) (Auto) % (45.0-75.0) Lymphocytes (%) (Auto) % (20.0-45.0) Monocytes (%) (Auto) % (1.0-10.0) Eosinophils (%) (Auto) % (0.0-3.0) Basophils (%) (Auto) % (0.0-2.0) Differential Total Cells Counted 100 Neutrophils % (Manual) 95 % (45-75) H Lymphocytes % (Manual) 2 % (20-45) L Monocytes % (Manual) 3 % (1-10) Eosinophils % (Manual) 0 % (0-3) Basophils % (Manual) 0 % (0-2) Band Neutrophils 0 % (0-8) Platelet Estimate Adequate Platelet Morphology Normal Hypochromasia 1+ Anisocytosis 1+ Sodium Level 144 MMOL/L (136-145) Potassium Level 4.6 MMOL/L (3.5-5.1) Chloride Level 105 MMOL/L (98-107) Carbon Dioxide Level 43 MMOL/L (21-32) *H Blood Urea Nitrogen 21 mg/dL (7-18) H Creatinine 0.4 MG/DL (0.55-1.30) L Estimat Glomerular Filtration Rate > 60 mL/min (>60) Glucose Level 154 MG/DL (74-106) H Calcium Level 8.5 MG/DL (8.5-10.1) Total Bilirubin 0.7 MG/DL (0.2-1.0) Aspartate Amino Transf (AST/SGOT) 63 U/L (15-37) H Alanine Aminotransferase (ALT/SGPT) 65 U/L (12-78) Alkaline Phosphatase 107 U/L (46-116) Total Protein 5.9 G/DL (6.4-8.2) L Albumin 2.2 G/DL (3.4-5.0) L Globulin 3.7 g/dL Albumin/Globulin Ratio 0.6 (1.0-2.7) L Arterial Blood pH 7.354 (7.350-7.450) Arterial Blood Partial Pressure CO2 81.4 mmHg (35.0-45.0) *H Arterial Blood Partial Pressure O2 63.7 mmHg (75.0-100.0) L Arterial Blood HCO3 44.3 mmol/L (22.0-26.0) *H Arterial Blood Oxygen Saturation 90.7 % (95-100) L Arterial Blood Base Excess 15.7 (-2-2) *H Jacob Test Positive Plan Problems: (1) Pneumothorax Assessment & Plan: 30M covid on vent peep 16 fi02 100 right ptx s/p right chest tube ett complication replaced 07/01 chest tube vac replaced this AM as well given malfunction high risk low tv cxr noted ill appearing tube and lines checked will need to monitor closely unable to wean vent at this time cont current care plan Right pneumothorax is slightly increased from the prior exam, still small. Right chest tube remains in place. Stable satisfactory position of endotracheal and orogastric tubes. Left arm PICC remain stable. Previously demonstrated pneumomediastinum is not definitely evident currently. There is marked improvement of previously demonstrated right supraclavicular subcutaneous emphysema, with mild residual. Bilateral infiltrates remain worsening prognosis guarded chest tube stable but leak with high peep bilateral chest tubes placed now bilateral ptx (2) Respiratory failure (3) Coronavirus infection (4) Diabetes (5) Hypercapnia (6) Hypoxia (7) Asthma (8) HTN (hypertension) (9) Obesity (BMI 30-39.9) (10) Acute respiratory distress syndrome (ARDS) due to 2019-nCoV (11) Acute hypoxemic respiratory failure due to COVID-19 (12) Bradycardia (13) Laceration Mulugeta Butler Aug 13, 2020 12:20
--- NOTE | 2020-08-13 12:45 | NUR ---
NURSE NOTES: Dr. Wing updated on the patient condition and current antibiotics regiment, no orders given to change antibiotics.
--- NOTE | 2020-08-13 13:05 | Infectious Diseases Prog Note ---
Assessment/Plan Assessment/Plan A: 1. COVID-19 pneumonia. 2. History of asthma. 3. Elevated liver function tests. 4. Fatty liver 5. DM with hyperglycemia 6. Leukocytosis worsening 7. Hypoxic respiratory failure 8. Gram negative pneumonia 9. Positive blood culture with CoANS PLAN: 1. Continue Methylprednisone 2. Change to Levaquin Zosyn 3.Poor prognosis, become DNR 5. case was D/W RN Subjective ROS Limited/Unobtainable: Yes Constitutional: Reports: fever, other - Uk=104.5 Neurologic: Reports: other - sedated on restraint Allergies: Coded Allergies: No Known Allergies (Unverified , 03/08/17) Objective Last 24 Hour Vital Signs Date Time Temp Pulse Resp B/P (MAP) Pulse Ox O2 Delivery O2 Flow Rate FiO2 08/13/20 12:30 106 30 119/78 (92) 96 08/13/20 12:00 96.4 99 28 136/82 (100) 96 08/13/20 12:00 100 08/13/20 12:00 Mechanical Ventilator 08/13/20 11:30 95 27 116/75 (89) 95 08/13/20 11:00 92 26 118/76 (90) 95 08/13/20 10:00 85 24 119/83 (95) 96 08/13/20 09:30 88 22 130/85 (100) 97 08/13/20 09:00 89 24 124/92 (103) 99 08/13/20 08:30 102 26 142/97 (112) 96 08/13/20 08:00 Mechanical Ventilator 08/13/20 08:00 96.2 101 25 133/103 (113) 95 08/13/20 08:00 100 08/13/20 07:30 106 24 123/86 (98) 95 08/13/20 07:03 26 Mechanical Ventilator 100 08/13/20 07:00 106 26 122/89 (100) 08/13/20 06:40 87 29 100 08/13/20 06:25 26 Mechanical Ventilator 100 08/13/20 06:15 98.9 120 24 125/86 (99) 08/13/20 06:00 127 30 110/78 (89) 08/13/20 05:36 100.1 08/13/20 05:25 26 Mechanical Ventilator 100 08/13/20 05:00 138 26 132/77 (95) 08/13/20 04:25 26 Mechanical Ventilator 100 08/13/20 04:10 26 Mechanical Ventilator 100 08/13/20 04:00 100 08/13/20 04:00 100.5 136 25 142/85 (104) 95 08/13/20 04:00 Mechanical Ventilator 08/13/20 03:55 26 Mechanical Ventilator 100 08/13/20 03:40 26 Mechanical Ventilator 100 08/13/20 03:15 130 08/13/20 03:06 26 Mechanical Ventilator 100 08/13/20 03:00 132 29 163/87 (112) 95 08/13/20 02:06 26 Mechanical Ventilator 100 08/13/20 02:00 125 30 138/77 (97) 96 08/13/20 01:15 124 31 100 08/13/20 01:06 26 Mechanical Ventilator 100 08/13/20 01:00 126 29 160/92 (114) 94 08/13/20 00:06 26 Mechanical Ventilator 100 08/13/20 00:00 100 08/13/20 00:00 98.3 117 27 147/85 (105) 95 08/13/20 00:00 Mechanical Ventilator 08/12/20 23:14 113 08/12/20 23:06 26 Mechanical Ventilator 100 08/12/20 23:00 107 26 151/93 (112) 98 08/12/20 22:06 26 Mechanical Ventilator 100 08/12/20 22:00 100 27 147/82 (103) 99 08/12/20 21:06 26 Mechanical Ventilator 100 08/12/20 21:00 91 24 129/77 (94) 99 08/12/20 20:06 26 Mechanical Ventilator 100 08/12/20 20:00 Mechanical Ventilator 08/12/20 20:00 97.8 94 26 125/73 (90) 100 08/12/20 19:47 86 08/12/20 19:34 84 28 100 08/12/20 19:06 24 Mechanical Ventilator 100 08/12/20 19:00 79 24 127/75 (92) 99 08/12/20 18:06 19 Mechanical Ventilator 100 08/12/20 18:00 83 24 129/72 (91) 100 08/12/20 17:00 91 15 146/87 (106) 100 08/12/20 17:00 15 Mechanical Ventilator 100 08/12/20 16:30 85 18 140/94 (109) 100 08/12/20 16:00 Mechanical Ventilator 08/12/20 16:00 96 08/12/20 16:00 22 Mechanical Ventilator 100 08/12/20 16:00 100 08/12/20 16:00 98.0 81 22 127/73 (91) 100 08/12/20 15:10 94 26 100 08/12/20 15:00 103 26 115/76 (89) 95 08/12/20 15:00 26 Mechanical Ventilator 100 08/12/20 14:30 103 25 123/66 (85) 98 08/12/20 14:00 109 27 135/72 (93) 95 08/12/20 14:00 27 Mechanical Ventilator 100 Height (Feet): 5 Height (Inches): 6.00 Weight (Pounds): 209 HEENT: other - orally intubated Respiratory/Chest: other - on ventilator , XGI6=706%, Left chest tube Cardiovascular: tachycardia Abdomen: soft, non tender, other - NG tube Neurologic/Psychiatric: unresponsiveness, other - sedated Laboratory Tests Test 08/13/20 04:00 08/13/20 09:21 White Blood Count 18.6 K/UL (4.8-10.8) H Red Blood Count 3.04 M/UL (4.70-6.10) L Hemoglobin 9.4 G/DL (14.2-18.0) L Hematocrit 30.0 % (42.0-52.0) L Mean Corpuscular Volume 99 FL (80-99) Mean Corpuscular Hemoglobin 31.0 PG (27.0-31.0) Mean Corpuscular Hemoglobin Concent 31.4 G/DL (32.0-36.0) L Red Cell Distribution Width 16.8 % (11.6-14.8) H Platelet Count 312 K/UL (150-450) Mean Platelet Volume 7.4 FL (6.5-10.1) Neutrophils (%) (Auto) % (45.0-75.0) Lymphocytes (%) (Auto) % (20.0-45.0) Monocytes (%) (Auto) % (1.0-10.0) Eosinophils (%) (Auto) % (0.0-3.0) Basophils (%) (Auto) % (0.0-2.0) Differential Total Cells Counted 100 Neutrophils % (Manual) 95 % (45-75) H Lymphocytes % (Manual) 2 % (20-45) L Monocytes % (Manual) 3 % (1-10) Eosinophils % (Manual) 0 % (0-3) Basophils % (Manual) 0 % (0-2) Band Neutrophils 0 % (0-8) Platelet Estimate Adequate Platelet Morphology Normal Hypochromasia 1+ Anisocytosis 1+ Sodium Level 144 MMOL/L (136-145) Potassium Level 4.6 MMOL/L (3.5-5.1) Chloride Level 105 MMOL/L (98-107) Carbon Dioxide Level 43 MMOL/L (21-32) *H Blood Urea Nitrogen 21 mg/dL (7-18) H Creatinine 0.4 MG/DL (0.55-1.30) L Estimat Glomerular Filtration Rate > 60 mL/min (>60) Glucose Level 154 MG/DL (74-106) H Calcium Level 8.5 MG/DL (8.5-10.1) Total Bilirubin 0.7 MG/DL (0.2-1.0) Aspartate Amino Transf (AST/SGOT) 63 U/L (15-37) H Alanine Aminotransferase (ALT/SGPT) 65 U/L (12-78) Alkaline Phosphatase 107 U/L (46-116) Total Protein 5.9 G/DL (6.4-8.2) L Albumin 2.2 G/DL (3.4-5.0) L Globulin 3.7 g/dL Albumin/Globulin Ratio 0.6 (1.0-2.7) L Arterial Blood pH 7.354 (7.350-7.450) Arterial Blood Partial Pressure CO2 81.4 mmHg (35.0-45.0) *H Arterial Blood Partial Pressure O2 63.7 mmHg (75.0-100.0) L Arterial Blood HCO3 44.3 mmol/L (22.0-26.0) *H Arterial Blood Oxygen Saturation 90.7 % (95-100) L Arterial Blood Base Excess 15.7 (-2-2) *H Jacob Test Positive Current Medications Medications (Trade) Dose Ordered Sig/Milagro Route PRN Reason Start Time Stop Time Status Last Admin Dose Admin Acetaminophen (Tylenol) 650 mg Q4H PRN RECTAL Mild Pain (Pain Scale 1-3) 07/24/20 18:15 08/23/20 18:14 07/25/20 11:49 Acetaminophen (Tylenol) 650 mg Q6H PRN NG Mild Pain (Pain Scale 1-3) 07/26/20 08:30 08/25/20 08:29 08/09/20 18:15 Acetaminophen (Tylenol) 650 mg Q6H PRN NG Temp >100.5 07/26/20 08:30 08/25/20 08:29 08/13/20 05:06 Chlorhexidine Gluconate (Marycarmen-Hex 2%) 1 applic DAILY@2000 TOPIC 07/20/20 20:00 10/18/20 19:59 08/12/20 21:29 Dextrose (Dextrose 50%) 25 ml Q30M PRN IV Hypoglycemia 07/23/20 13:15 10/21/20 13:14 Dextrose (Dextrose 50%) 50 ml Q30M PRN IV Hypoglycemia 07/23/20 13:15 10/21/20 13:14 08/11/20 04:04 Dextrose/Sodium Chloride 1,000 ml @ 100 mls/hr Q10H PRN IV WHILE PRONING ONLY 07/24/20 17:45 08/23/20 17:44 08/10/20 05:33 Docusate Sodium (Colace) 100 mg EVERY 12 HOURS NG 07/27/20 21:00 08/26/20 20:59 08/13/20 08:39 Famotidine (Pepcid I.v.) 20 mg Q12HR IVP 08/04/20 21:00 09/03/20 20:59 08/13/20 08:39 Fluconazole (Diflucan) 100 mg Q24H NG 08/08/20 20:00 08/15/20 19:59 08/12/20 21:30 Insulin Aspart (NovoLOG) EVERY 6 HOURS SUBQ 07/28/20 00:00 10/21/20 15:59 08/13/20 12:16 Insulin Detemir (Levemir) 26 units EVERY 12 HOURS SUBQ 07/26/20 09:00 10/20/20 08:59 08/13/20 08:41 Methylprednisolone Sodium Succinate (Solu-MEDROL) 10 mg DAILY IVP 08/13/20 09:00 08/14/20 09:01 08/13/20 08:39 Midazolam HCl 100 mg/Sodium Chloride 200 ml @ 0 mls/hr Q24H IV 08/12/20 18:00 08/19/20 17:59 08/13/20 07:03 Piperacillin Sod/ Tazobactam Sod 3.375 gm/Sodium Chloride 110 ml @ 27.5 mls/hr EVERY 8 HOURS IVPB 08/09/20 11:30 08/15/20 11:29 08/13/20 05:07 Vitamin B Complex (Vitamin B Complex) 1 tab DAILY NG 07/24/20 09:00 10/09/20 08:59 08/13/20 08:39 Mian Wing MD Aug 13, 2020 13:04
--- NOTE | 2020-08-13 13:08 | Diagnostic Imaging Report ---
EXAM: XR Chest, 1 View CLINICAL HISTORY: F/U TECHNIQUE: Frontal view of the chest. COMPARISON: 08/12/20 FINDINGS: Lungs: Interval improvement of right lung patchy opacities. No new consolidation seen. Pleural space: No significant change in a left-sided pneumothorax. Heart: Unremarkable. No cardiomegaly. Mediastinum: Unremarkable. Bones/joints: Unremarkable. Tubes, lines and devices: Stable positioning of bilateral chest tubes. Endotracheal tube tip 2.8 cm above the blaine. IMPRESSION: 1. No significant change in a left-sided pneumothorax. 2. Stable positioning of bilateral chest tubes. 3. Interval improvement of right lung patchy opacities. No new consolidation seen.
--- NOTE | 2020-08-13 13:45 | NUR ---
NURSE NOTES: Dr. gage updated regarding the patient chest tubes, both chest tubes are functioning correctly with the suction chamber continuously bubbling gently with low intermittent suction. no orderd given at this time and continue monitor.
--- NOTE | 2020-08-13 15:21 | General Progress Note ---
Subjective Constitutional: Reports: malaise, weakness HEENT: Reports: no symptoms Cardiovascular: Reports: no symptoms Respiratory: Reports: shortness of breath Gastrointestinal/Abdominal: Reports: difficulty swallowing Genitourinary: Reports: no symptoms Neurologic/Psychiatric: Reports: pre-existing deficit Endocrine: Reports: no symptoms Hematologic/Lymphatic: Reports: no symptoms Allergies: Coded Allergies: No Known Allergies (Unverified , 03/08/17) All Systems: reviewed and negative except above Subjective no change. no fever or chills. intubated and sedated. per staff responsive. on feeds. no bleeding. Objective Last 24 Hour Vital Signs Date Time Temp Pulse Resp B/P (MAP) Pulse Ox O2 Delivery O2 Flow Rate FiO2 08/13/20 12:30 106 30 119/78 (92) 96 08/13/20 12:00 96.4 99 28 136/82 (100) 96 08/13/20 12:00 100 08/13/20 12:00 Mechanical Ventilator 08/13/20 11:30 95 27 116/75 (89) 95 08/13/20 11:00 92 26 118/76 (90) 95 08/13/20 10:50 90 28 100 08/13/20 10:00 85 24 119/83 (95) 96 08/13/20 09:30 88 22 130/85 (100) 97 08/13/20 09:00 89 24 124/92 (103) 99 08/13/20 08:30 102 26 142/97 (112) 96 08/13/20 08:00 Mechanical Ventilator 08/13/20 08:00 96.2 101 25 133/103 (113) 95 08/13/20 08:00 100 08/13/20 07:30 106 24 123/86 (98) 95 08/13/20 07:03 26 Mechanical Ventilator 100 08/13/20 07:00 106 26 122/89 (100) 08/13/20 06:40 87 29 100 08/13/20 06:25 26 Mechanical Ventilator 100 08/13/20 06:15 98.9 120 24 125/86 (99) 08/13/20 06:00 127 30 110/78 (89) 08/13/20 05:36 100.1 08/13/20 05:25 26 Mechanical Ventilator 100 08/13/20 05:00 138 26 132/77 (95) 08/13/20 04:25 26 Mechanical Ventilator 100 08/13/20 04:10 26 Mechanical Ventilator 100 08/13/20 04:00 100 08/13/20 04:00 100.5 136 25 142/85 (104) 95 08/13/20 04:00 Mechanical Ventilator 08/13/20 03:55 26 Mechanical Ventilator 100 08/13/20 03:40 26 Mechanical Ventilator 100 08/13/20 03:15 130 08/13/20 03:06 26 Mechanical Ventilator 100 08/13/20 03:00 132 29 163/87 (112) 95 08/13/20 02:06 26 Mechanical Ventilator 100 08/13/20 02:00 125 30 138/77 (97) 96 08/13/20 01:15 124 31 100 08/13/20 01:06 26 Mechanical Ventilator 100 08/13/20 01:00 126 29 160/92 (114) 94 08/13/20 00:06 26 Mechanical Ventilator 100 08/13/20 00:00 100 08/13/20 00:00 98.3 117 27 147/85 (105) 95 08/13/20 00:00 Mechanical Ventilator 08/12/20 23:14 113 08/12/20 23:06 26 Mechanical Ventilator 100 08/12/20 23:00 107 26 151/93 (112) 98 08/12/20 22:06 26 Mechanical Ventilator 100 08/12/20 22:00 100 27 147/82 (103) 99 08/12/20 21:06 26 Mechanical Ventilator 100 08/12/20 21:00 91 24 129/77 (94) 99 08/12/20 20:06 26 Mechanical Ventilator 100 08/12/20 20:00 Mechanical Ventilator 08/12/20 20:00 97.8 94 26 125/73 (90) 100 08/12/20 19:47 86 08/12/20 19:34 84 28 100 08/12/20 19:06 24 Mechanical Ventilator 100 08/12/20 19:00 79 24 127/75 (92) 99 08/12/20 18:06 19 Mechanical Ventilator 100 08/12/20 18:00 83 24 129/72 (91) 100 08/12/20 17:00 91 15 146/87 (106) 100 08/12/20 17:00 15 Mechanical Ventilator 100 08/12/20 16:30 85 18 140/94 (109) 100 08/12/20 16:00 Mechanical Ventilator 08/12/20 16:00 96 08/12/20 16:00 22 Mechanical Ventilator 100 08/12/20 16:00 100 08/12/20 16:00 98.0 81 22 127/73 (91) 100 Intake and Output 08/12/20 08/13/20 19:00 07:00 Intake Total 883.73 ml 829.38 ml Output Total 470 ml 824 ml Balance 413.73 ml 5.38 ml IV Total 343.73 ml 349.38 ml Tube Feeding 480 ml 480 ml Other 60 ml Output Urine Total 465 ml 660 ml Stool Total 5 ml 150 ml Chest Tube Drainage Total 14 ml Laboratory Tests 08/13/20 04:00: White Blood Count 18.6H, Red Blood Count 3.04L, Hemoglobin 9.4L, Hematocrit 30.0L, Mean Corpuscular Volume 99, Mean Corpuscular Hemoglobin 31.0, Mean Corpuscular Hemoglobin Concent 31.4L, Red Cell Distribution Width 16.8H, Platelet Count 312, Mean Platelet Volume 7.4, Neutrophils (%) (Auto) , Lymphocytes (%) (Auto) , Monocytes (%) (Auto) , Eosinophils (%) (Auto) , Basophils (%) (Auto) , Differential Total Cells Counted 100, Neutrophils % (Manual) 95H, Lymphocytes % (Manual) 2L, Monocytes % (Manual) 3, Eosinophils % (Manual) 0, Basophils % (Manual) 0, Band Neutrophils 0, Platelet Estimate Adequate, Platelet Morphology Normal, Hypochromasia 1+, Anisocytosis 1+, Sodium Level 144, Potassium Level 4.6, Chloride Level 105, Carbon Dioxide Level 43*H, Blood Urea Nitrogen 21H, Creatinine 0.4L, Estimat Glomerular Filtration Rate > 60, Glucose Level 154H, Calcium Level 8.5, Total Bilirubin 0.7, Aspartate Amino Transf (AST/SGOT) 63H, Alanine Aminotransferase (ALT/SGPT) 65, Alkaline Phosphatase 107, Total Protein 5.9L, Albumin 2.2L, Globulin 3.7, Albumin/Globulin Ratio 0.6L 08/13/20 09:21: Arterial Blood pH 7.354, Arterial Blood Partial Pressure CO2 81.4*H, Arterial Blood Partial Pressure O2 63.7L, Arterial Blood HCO3 44.3*H, Arterial Blood Oxygen Saturation 90.7L, Arterial Blood Base Excess 15.7*H, Jacob Test Positive Height (Feet): 5 Height (Inches): 6.00 Weight (Pounds): 209 Objective deferred Assessment/Plan Problem List: (1) Coronavirus infection ICD Codes: B34.2 - Coronavirus infection, unspecified SNOMED: 090558183 (2) Respiratory failure ICD Codes: J96.90 - Respiratory failure, unspecified, unspecified whether with hypoxia or hypercapnia SNOMED: 211048131 (3) Hypercapnia ICD Codes: R06.89 - Other abnormalities of breathing SNOMED: 25466420, 009341984 (4) Hypoxia ICD Codes: R09.02 - Hypoxemia SNOMED: 082632120 (5) Asthma ICD Codes: J45.909 - Unspecified asthma, uncomplicated SNOMED: 592086495, 532696934 (6) Pneumothorax ICD Codes: J93.9 - Pneumothorax, unspecified SNOMED: 02322739 Status: progressing, not improved Assessment/Plan: vent support wean fio2 and peep as able resp care/suctioning as needed monitor for bleeding. off lovenox due to oral bleeding monitor plts- trending up scd iv abx per id replace k remains critical and guarded Rolando Cherry MD Aug 13, 2020 15:21
--- NOTE | 2020-08-13 15:53 | Pulmonology Progress Note ---
Subjective ROS Limited/Unobtainable: Yes Gastrointestinal/Abdominal: Denies: nausea, vomiting, diarrhea Musculoskeletal: Reports: pain Allergies: Coded Allergies: No Known Allergies (Unverified , 03/08/17) All Systems: reviewed and negative except above Subjective ct in place remains on high oxygen and PEEP reduced to 10 and desat noted and now increased on vent full code d/w nursing sedated tachypneic Objective Last 24 Hour Vital Signs Date Time Temp Pulse Resp B/P (MAP) Pulse Ox O2 Delivery O2 Flow Rate FiO2 08/13/20 12:30 106 30 119/78 (92) 96 08/13/20 12:00 96.4 99 28 136/82 (100) 96 08/13/20 12:00 100 08/13/20 12:00 Mechanical Ventilator 08/13/20 11:30 95 27 116/75 (89) 95 08/13/20 11:00 92 26 118/76 (90) 95 08/13/20 10:50 90 28 100 08/13/20 10:00 85 24 119/83 (95) 96 08/13/20 09:30 88 22 130/85 (100) 97 08/13/20 09:00 89 24 124/92 (103) 99 08/13/20 08:30 102 26 142/97 (112) 96 08/13/20 08:00 Mechanical Ventilator 08/13/20 08:00 96.2 101 25 133/103 (113) 95 08/13/20 08:00 100 08/13/20 07:30 106 24 123/86 (98) 95 08/13/20 07:03 26 Mechanical Ventilator 100 08/13/20 07:00 106 26 122/89 (100) 08/13/20 06:40 87 29 100 08/13/20 06:25 26 Mechanical Ventilator 100 08/13/20 06:15 98.9 120 24 125/86 (99) 08/13/20 06:00 127 30 110/78 (89) 08/13/20 05:36 100.1 08/13/20 05:25 26 Mechanical Ventilator 100 08/13/20 05:00 138 26 132/77 (95) 08/13/20 04:25 26 Mechanical Ventilator 100 08/13/20 04:10 26 Mechanical Ventilator 100 08/13/20 04:00 100 08/13/20 04:00 100.5 136 25 142/85 (104) 95 08/13/20 04:00 Mechanical Ventilator 08/13/20 03:55 26 Mechanical Ventilator 100 08/13/20 03:40 26 Mechanical Ventilator 100 08/13/20 03:15 130 08/13/20 03:06 26 Mechanical Ventilator 100 08/13/20 03:00 132 29 163/87 (112) 95 08/13/20 02:06 26 Mechanical Ventilator 100 08/13/20 02:00 125 30 138/77 (97) 96 08/13/20 01:15 124 31 100 08/13/20 01:06 26 Mechanical Ventilator 100 08/13/20 01:00 126 29 160/92 (114) 94 08/13/20 00:06 26 Mechanical Ventilator 100 08/13/20 00:00 100 08/13/20 00:00 98.3 117 27 147/85 (105) 95 08/13/20 00:00 Mechanical Ventilator 08/12/20 23:14 113 08/12/20 23:06 26 Mechanical Ventilator 100 08/12/20 23:00 107 26 151/93 (112) 98 08/12/20 22:06 26 Mechanical Ventilator 100 08/12/20 22:00 100 27 147/82 (103) 99 08/12/20 21:06 26 Mechanical Ventilator 100 08/12/20 21:00 91 24 129/77 (94) 99 08/12/20 20:06 26 Mechanical Ventilator 100 08/12/20 20:00 Mechanical Ventilator 08/12/20 20:00 97.8 94 26 125/73 (90) 100 08/12/20 19:47 86 08/12/20 19:34 84 28 100 08/12/20 19:06 24 Mechanical Ventilator 100 08/12/20 19:00 79 24 127/75 (92) 99 08/12/20 18:06 19 Mechanical Ventilator 100 08/12/20 18:00 83 24 129/72 (91) 100 08/12/20 17:00 91 15 146/87 (106) 100 08/12/20 17:00 15 Mechanical Ventilator 100 08/12/20 16:30 85 18 140/94 (109) 100 08/12/20 16:00 Mechanical Ventilator 08/12/20 16:00 96 08/12/20 16:00 22 Mechanical Ventilator 100 08/12/20 16:00 100 08/12/20 16:00 98.0 81 22 127/73 (91) 100 Intake and Output 08/12/20 08/13/20 19:00 07:00 Intake Total 883.73 ml 829.38 ml Output Total 470 ml 824 ml Balance 413.73 ml 5.38 ml IV Total 343.73 ml 349.38 ml Tube Feeding 480 ml 480 ml Other 60 ml Output Urine Total 465 ml 660 ml Stool Total 5 ml 150 ml Chest Tube Drainage Total 14 ml Objective deferred due to COVID Laboratory Tests 08/13/20 04:00: White Blood Count 18.6H, Red Blood Count 3.04L, Hemoglobin 9.4L, Hematocrit 30.0L, Mean Corpuscular Volume 99, Mean Corpuscular Hemoglobin 31.0, Mean Cor puscular Hemoglobin Concent 31.4L, Red Cell Distribution Width 16.8H, Platelet Count 312, Mean Platelet Volume 7.4, Neutrophils (%) (Auto) , Lymphocytes (%) (Auto) , Monocytes (%) (Auto) , Eosinophils (%) (Auto) , Basophils (%) (Auto) , Differential Total Cells Counted 100, Neutrophils % (Manual) 95H, Lymphocytes % (Manual) 2L, Monocytes % (Manual) 3, Eosinophils % (Manual) 0, Basophils % (Manual) 0, Band Neutrophils 0, Platelet Estimate Adequate, Platelet Morphology Normal, Hypochromasia 1+, Anisocytosis 1+, Sodium Level 144, Potassium Level 4.6, Chloride Level 105, Carbon Dioxide Level 43*H, Blood Urea Nitrogen 21H, Creatinine 0.4L, Estimat Glomerular Filtration Rate > 60, Glucose Level 154H, Calcium Level 8.5, Total Bilirubin 0.7, Aspartate Amino Transf (AST/SGOT) 63H, Alanine Aminotransferase (ALT/SGPT) 65, Alkaline Phosphatase 107, Total Protein 5.9L, Albumin 2.2L, Globulin 3.7, Albumin/Globulin Ratio 0.6L 08/13/20 09:21: Arterial Blood pH 7.354, Arterial Blood Partial Pressure CO2 81.4*H, Arterial Blood Partial Pressure O2 63.7L, Arterial Blood HCO3 44.3*H, Arterial Blood Oxygen Saturation 90.7L, Arterial Blood Base Excess 15.7*H, Jacob Test Positive Current Medications Medications (Trade) Dose Ordered Sig/Milagro Route PRN Reason Start Time Stop Time Status Last Admin Dose Admin Acetaminophen (Tylenol) 650 mg Q4H PRN RECTAL Mild Pain (Pain Scale 1-3) 07/24/20 18:15 08/23/20 18:14 07/25/20 11:49 Acetaminophen (Tylenol) 650 mg Q6H PRN NG Mild Pain (Pain Scale 1-3) 07/26/20 08:30 08/25/20 08:29 08/09/20 18:15 Acetaminophen (Tylenol) 650 mg Q6H PRN NG Temp >100.5 07/26/20 08:30 08/25/20 08:29 08/13/20 05:06 Chlorhexidine Gluconate (Marycarmen-Hex 2%) 1 applic DAILY@1999 TOPIC 07/20/20 20:00 10/18/20 19:59 08/12/20 21:29 Dextrose (Dextrose 50%) 25 ml Q30M PRN IV Hypoglycemia 07/23/20 13:15 10/21/20 13:14 Dextrose (Dextrose 50%) 50 ml Q30M PRN IV Hypoglycemia 07/23/20 13:15 10/21/20 13:14 08/11/20 04:04 Dextrose/Sodium Chloride 1,000 ml @ 100 mls/hr Q10H PRN IV WHILE PRONING ONLY 07/24/20 17:45 08/23/20 17:44 08/10/20 05:33 Docusate Sodium (Colace) 100 mg EVERY 12 HOURS NG 07/27/20 21:00 08/26/20 20:59 08/13/20 08:39 Famotidine (Pepcid I.v.) 20 mg Q12HR IVP 08/04/20 21:00 09/03/20 20:59 08/13/20 08:39 Fluconazole (Diflucan) 100 mg Q24H NG 08/08/20 20:00 08/15/20 19:59 08/12/20 21:30 Insulin Aspart (NovoLOG) EVERY 6 HOURS SUBQ 07/28/20 00:00 10/21/20 15:59 08/13/20 12:16 Insulin Detemir (Levemir) 26 units EVERY 12 HOURS SUBQ 07/26/20 09:00 10/20/20 08:59 08/13/20 08:41 Levofloxacin (Levaquin) 750 mg DAILY NG 08/13/20 14:00 08/20/20 13:59 Methylprednisolone Sodium Succinate (Solu-MEDROL) 10 mg DAILY IVP 08/13/20 09:00 08/14/20 09:01 08/13/20 08:39 Midazolam HCl 100 mg/Sodium Chloride 200 ml @ 0 mls/hr Q24H IV 08/12/20 18:00 08/19/20 17:59 08/13/20 07:03 Vitamin B Complex (Vitamin B Complex) 1 tab DAILY NG 07/24/20 09:00 10/09/20 08:59 08/13/20 08:39 Assessment/Plan Assessment/Plan acute hypoxemic respiratory failure COVID pneumonia Asthma elevated liver enzymes DNR ARDS with fibrosing phase pneumothorax elevated TG PLAN borderline oxygen saturation noted on max oxygen CT per surgery imaging reviewed needs trach for chronic vent management---PEEP increased monitor acid base status respiratory care ID noted DVT prophylaxis prognosis poor overall for meaningful recovery monitor respiratory status for change not safe for trach placement medications/laboratory data/nursing notes/ICU care reviewed in detail note reviewed and edited care discussed with RN and RT ICU time spent >40 minutes Elfego Price MD Aug 13, 2020 15:53
[2020-08-13] MEDS: Levofloxacin 750mg tab NG SCH (15:59)
--- NOTE | 2020-08-13 18:55 | NUR ---
NURSE NOTES: both chest tubes remains bubbling at the suction chamber that is connected to the wall suction at low intermittent suction, there is serosanguineous at the collection chamver with the left chest tube having low serosanguineous fluid. the water seal in bubbling intermittently as well. right chest tube (#1) draingage fluid is 130 while the secong chest tube is connected to a thora vent.
--- NOTE | 2020-08-13 19:15 | NUR ---
NURSE HAND-OFF REPORT: Latest Vital Signs: Temperature 96.4 , Pulse 142 , B/P 119 /78 , Respiratory Rate 26 , O2 SAT 96 , Mechanical Ventilator, O2 Flow Rate . Vital Sign Comment: EKG Rhythm: Sinus Tachycardia Rhythm change?: N MD Notified?: Ildefonso -Dr. Diana at bedside for re-intubation MD Response: Latest Bradley Fall Score: 50 Fall Risk: High Risk Safety Measures: Call light Within Reach, Bed Alarm Zone 1, Side Rails Side Rails x3, Bed position Low and Locked. Fall Precautions: Yellow Socks Yellow Gown Door Sign Patient Fall Education Report given to ELIER Srivastava. patient is on versed drip at 10mg/hr at rate of 20ml/hr.
--- NOTE | 2020-08-13 19:30 | NUR ---
NURSE NOTES: Received report from ELIER Silva. Pt is sedated on the bed and RASS-2. Pt has ETT and orally intubated. Vent dependent and setting with AC: 26, T: 500, P:16, FiO2 100% and SaO2 98% noted. Given suction and oral care. Pt has NGT and on running with Glucerna 1.2 @ 40cc/hr. No residual noted. Pt has Biswas cath and Rectal tube and patent and drainage well. Pt has Rt side chest tube and Lt upper chest Thora Vent and connected with low intermittent suction. Pt has Lt. upper arm PICC line and dressing is clean and dry and on running with Versed @ 10mg/hr. Noted BT: 97.F via rectal. Placed fall precaution. Noted proper isolation for COVID-19. Will continue to care plan.
[2020-08-13] MEDS: Dyna-Hex 2% Top Sol 2oz TOPIC SCH (19:50)
[2020-08-13] MEDS: Fluconazole 100mg tab NG SCH (19:51)
--- NOTE | 2020-08-13 21:30 | NUR ---
NURSE NOTES: Family; brother and girl friend visited. Updated Pt's condition. Will continue to monitor any change of condition.
--- NOTE | 2020-08-13 22:00 | NUR ---
NURSE NOTES: Pt is sedated on the bed. SaO2 98% with current Vent setting. Connected well with Rt and Lt chest tube with suction. On pvc monitor with ST. Will continue to monitor any change of condition.
[2020-08-14] VITALS (48 sets, daily range): BP systolic 121–149; BP diastolic 77–100
--- NOTE | 2020-08-14 | NUR ---
NURSE NOTES: Pt is sedated on the bed and RASS -2. No fever noted. On monitoring coordinator with ST. SaO2 99% with current Vent setting. Rt and Lt chest tube connected well. Tolerated well with NGT feeding. Given oral care and suction. Placed fall precaution. Will continue to monitor any change of condition.
[2020-08-14] MEDS: NovoLOG Insulin Flexpen SUBQ SCH ×5 (00:09→23:52)
--- NOTE | 2020-08-14 02:00 | NUR ---
NURSE NOTES: Pt is sedated on the bed and SaO2 99% with current Vent setting. No fever with cooling measure. On electronic device monitor with ST. Rectal tube and Biswas cath in placed and patent. Tolerated well with current Vent NGT feeding. Right and left chest tube connected with wall suction; low intermittent suction. changed position. Will continue to monitor any change of condition.
[2020-08-14] MEDS: Midazolam HCl 50mg/10ml vial 100 MG in NS 180 ML IV SCH ×3 (02:35→23:03)
--- NOTE | 2020-08-14 04:00 | NUR ---
NURSE NOTES: Morning care was done. Cleaned Pt and applied lotion and cream. Keep cooling measure. No fever noted. Sedated on the bed and RASS score -2. On running with Versed @ 10mg/hr. Given suction and mouth care. Still noted scab on lip area. No sign of pain by FLACC scale. No residual from NGT and on running with Glucerna 1.2 @ 40cc/hr. Rt and Lt chest tube in placed. Placed fall precaution. Keep proper isolation for COVID-19. will continue to care plan.
--- NOTE | 2020-08-14 06:00 | NUR ---
NURSE NOTES: SaO2 99% with current Vent setting. No fever. Noted 40cc serosanguineous color output from Lt chest tube and 4cc serosanguineous color output from Rt. chest Thora Vent. Repositioned Pt. RASS score -2 and On running with Versed @ 10mg/hr. Will continue to monitor any change of condition.
--- NOTE | 2020-08-14 07:16 | NUR ---
NURSE HAND-OFF REPORT: Latest Vital Signs: Temperature 97.7 , Pulse 100 , B/P 136 /100 , Respiratory Rate 24 , O2 SAT 99 , Mechanical Ventilator, O2 Flow Rate . Vital Sign Comment: EKG Rhythm: Sinus Tachycardia Rhythm change?: N Latest Bradley Fall Score: 50 Fall Risk: High Risk Safety Measures: Call light Within Reach, Bed Alarm Zone 1, Side Rails Side Rails x3, Bed position Low and Locked. Fall Precautions: Yellow Socks Yellow Gown Door Sign Patient Fall Education Report given to ELIER Woods. Pt is sedate on the bed and On running with Versed @ 10mg/hr.
[2020-08-14 07:48] LABS: ANION GAP 0 mmol/L (5-15); BLOOD UREA NITROGEN 24 mg/dL (7-18); CALCIUM 9.2 MG/DL (8.5-10.1); CARBON DIOXIDE 39 MMOL/L (21-32); CHLORIDE 106 MMOL/L (98-107); CREATININE 0.4 MG/DL (0.55-1.30); POTASSIUM 4.6 MMOL/L (3.5-5.1); SODIUM 145 MMOL/L (136-145)
[2020-08-14] MEDS: Docusate 100mg/10ml Liq NG SCH ×2 (07:55→20:59)
[2020-08-14] MEDS: Vitamin B Complex Tab NG SCH (07:55)
[2020-08-14] MEDS: Levofloxacin 750mg tab NG SCH (07:55)
[2020-08-14] MEDS: Solu-MEDROL 40mg Inj IVP SCH (07:55)
--- NOTE | 2020-08-14 08:00 | NUR ---
NURSE NOTES: Dr. Cherry updated on the patient status, he remains on ventilator setting of ac 26, tv: 500, fio2 100% and peep of 16, and aware the chemisrty labs are within normal ranges, no verbal orders given at this time
[2020-08-14] MEDS: Levemir Flexpen SUBQ SCH ×2 (08:30→21:07)
--- NOTE | 2020-08-14 08:55 | NUR ---
NURSE NOTES: Dr. Priec is at the bedside updated the ventilator setting remains at AC26, Tv: 500, Fio2 100% and peep of 16, currently he is saturating [id number]% with rate of 27-29. no verbal orders given at this time.
--- NOTE | 2020-08-14 09:39 | General Progress Note ---
Subjective ROS Limited/Unobtainable: No Constitutional: Reports: malaise, weakness HEENT: Reports: no symptoms Cardiovascular: Reports: no symptoms Respiratory: Reports: SOB with excertion Gastrointestinal/Abdominal: Reports: difficulty swallowing Genitourinary: Reports: no symptoms Neurologic/Psychiatric: Reports: no symptoms Endocrine: Reports: no symptoms Hematologic/Lymphatic: Reports: no symptoms Allergies: Coded Allergies: No Known Allergies (Unverified , 03/08/17) All Systems: reviewed and negative except above Subjective no change. no fever or chills. intubated and sedated. per staff responsive. on feeds. no bleeding. Objective Last 24 Hour Vital Signs Date Time Temp Pulse Resp B/P (MAP) Pulse Ox O2 Delivery O2 Flow Rate FiO2 08/14/20 08:30 92 18 124/95 (105) 08/14/20 08:00 100 08/14/20 08:00 26 Mechanical Ventilator 100 08/14/20 08:00 97.6 92 25 138/90 (106) 100 08/14/20 07:30 101 27 137/90 (106) 08/14/20 07:13 94 26 100 08/14/20 07:00 100 25 136/100 (112) 99 08/14/20 07:00 24 Mechanical Ventilator 100 08/14/20 06:30 100 24 148/97 (114) 08/14/20 06:00 104 25 141/90 (107) 99 08/14/20 06:00 25 Mechanical Ventilator 100 08/14/20 05:30 106 27 136/95 (109) 99 08/14/20 05:00 112 25 141/95 (110) 96 08/14/20 05:00 25 Mechanical Ventilator 100 08/14/20 04:30 117 26 126/89 (101) 94 08/14/20 04:00 97.7 117 26 137/91 (106) 94 08/14/20 04:00 Mechanical Ventilator 08/14/20 04:00 26 Mechanical Ventilator 100 08/14/20 04:00 125 08/14/20 04:00 100 08/14/20 03:30 120 27 137/89 (105) 08/14/20 03:00 120 25 143/93 (110) 99 08/14/20 03:00 25 Mechanical Ventilator 100 08/14/20 02:35 27 Mechanical Ventilator 100 08/14/20 02:30 117 26 128/88 (101) 08/14/20 02:24 95 29 100 08/14/20 02:00 27 Mechanical Ventilator 100 08/14/20 02:00 110 27 129/87 (101) 99 08/14/20 01:30 107 26 121/86 (98) 99 08/14/20 01:00 103 28 134/98 (110) 99 08/14/20 01:00 27 Mechanical Ventilator 100 08/14/20 00:30 106 26 121/79 (93) 99 08/14/20 00:00 100 08/14/20 00:00 97.0 106 27 126/95 (105) 99 08/14/20 00:00 27 Mechanical Ventilator 100 08/14/20 00:00 104 08/14/20 00:00 Mechanical Ventilator 08/13/20 23:30 106 26 124/89 (101) 99 08/13/20 23:06 102 29 100 08/13/20 23:00 106 27 136/94 (108) 99 08/13/20 23:00 27 Mechanical Ventilator 100 08/13/20 22:30 105 27 125/91 (102) 99 08/13/20 22:00 107 28 122/89 (100) 99 08/13/20 22:00 28 Mechanical Ventilator 100 08/13/20 21:30 103 26 129/86 (100) 08/13/20 21:00 25 Mechanical Ventilator 100 08/13/20 21:00 104 26 119/78 (92) 99 08/13/20 20:00 113 08/13/20 20:00 Mechanical Ventilator 08/13/20 20:00 100 08/13/20 20:00 97.0 117 25 119/77 (91) 98 08/13/20 20:00 25 Mechanical Ventilator 100 08/13/20 19:39 110 31 100 08/13/20 19:30 122 27 111/78 (89) 98 08/13/20 19:00 130 27 115/88 (97) 08/13/20 19:00 27 Mechanical Ventilator 100 08/13/20 18:30 131 27 119/81 (94) 08/13/20 18:00 27 Mechanical Ventilator 100 08/13/20 18:00 133 26 116/72 (87) 08/13/20 17:30 135 27 114/80 (91) 08/13/20 17:00 27 Mechanical Ventilator 100 08/13/20 17:00 139 27 116/73 (87) 92 08/13/20 16:30 141 28 120/86 (97) 91 08/13/20 16:12 26 Mechanical Ventilator 100 08/13/20 16:00 Mechanical Ventilator 08/13/20 16:00 136 08/13/20 16:00 100 08/13/20 16:00 28 Mechanical Ventilator 100 08/13/20 16:00 99.0 136 29 131/85 (100) 89 08/13/20 15:30 138 25 150/82 (104) 86 08/13/20 15:10 142 29 100 08/13/20 15:00 135 28 134/86 (102) 87 08/13/20 15:00 29 Mechanical Ventilator 100 08/13/20 14:30 134 29 145/89 (107) 88 08/13/20 14:00 29 Mechanical Ventilator 100 08/13/20 14:00 126 29 96/61 (73) 88 08/13/20 13:30 121 30 139/86 (103) 90 08/13/20 13:00 112 28 138/88 (105) 89 08/13/20 13:00 27 Mechanical Ventilator 100 08/13/20 12:30 106 30 119/78 (92) 96 08/13/20 12:00 96.4 99 28 136/82 (100) 96 08/13/20 12:00 99 08/13/20 12:00 29 Mechanical Ventilator 100 08/13/20 12:00 100 08/13/20 12:00 Mechanical Ventilator 08/13/20 11:30 95 27 116/75 (89) 95 08/13/20 11:00 26 Mechanical Ventilator 100 08/13/20 11:00 92 26 118/76 (90) 95 08/13/20 10:50 90 28 100 08/13/20 10:00 26 Mechanical Ventilator 100 08/13/20 10:00 85 24 119/83 (95) 96 Intake and Output 08/13/20 08/14/20 19:00 07:00 Intake Total 790.50332 ml 708.3 ml Output Total 676 ml 374 ml Balance 114.87767 ml 334.3 ml IV Total 310.91032 ml 228.3 ml Tube Feeding 480 ml 480 ml Output Urine Total 540 ml 310 ml Stool Total 20 ml Chest Tube Drainage Total 136 ml 44 ml # Bowel Movements 100 Laboratory Tests 08/14/20 06:33: Sodium Level 145, Potassium Level 4.6, Chloride Level 106, Carbon Dioxide Level 39H, Anion Gap 0L, Blood Urea Nitrogen 24H, Creatinine 0.4L, Estimat Glomerular Filtration Rate > 60, Glucose Level 178H, Calcium Level 9.2 Height (Feet): 5 Height (Inches): 6.00 Weight (Pounds): 209 Objective deferred Assessment/Plan Problem List: (1) Coronavirus infection ICD Codes: B34.2 - Coronavirus infection, unspecified SNOMED: 888225236 (2) Respiratory failure ICD Codes: J96.90 - Respiratory failure, unspecified, unspecified whether with hypoxia or hypercapnia SNOMED: 277508266 (3) Hypercapnia ICD Codes: R06.89 - Other abnormalities of breathing SNOMED: 39025148, 093083033 (4) Hypoxia ICD Codes: R09.02 - Hypoxemia SNOMED: 189062527 (5) Asthma ICD Codes: J45.909 - Unspecified asthma, uncomplicated SNOMED: 556839926, 094516078 (6) Pneumothorax ICD Codes: J93.9 - Pneumothorax, unspecified SNOMED: 91473079 Status: progressing, not improved Assessment/Plan: vent support wean fio2 and peep as able resp care/suctioning as needed monitor for bleeding. off lovenox due to oral bleeding monitor plts- trending up scd iv abx per id replace k remains critical and guarded Rolando Cherry MD Aug 14, 2020 09:39
[2020-08-14 10:23] LABS: HEMATOCRIT 33.5 % (42.0-52.0); HEMOGLOBIN 10.1 G/DL (14.2-18.0); MEAN CORPUSCULAR VOLUME 100 FL (80-99); PLATELET COUNT 236 K/UL (150-450); RED BLOOD COUNT 3.36 M/UL (4.70-6.10); RED CELL DISTRIBUTION WIDTH 17.6 % (11.6-14.8); WHITE BLOOD COUNT 13.1 K/UL (4.8-10.8)
--- NOTE | 2020-08-14 10:45 | NUR ---
NURSE NOTES: Patient repositioned and oral care provided. tube feeding remains running at 40ml/hr with formula of Glucerna 1.2 through a left nares NG-tube, the NG-tube is confirmed with c-ray and by auscultation. Biswas is draining clear urine with no sediment.
--- NOTE | 2020-08-14 12:15 | NUR ---
NURSE NOTES: chest tube assesses to be working adequately, chest tube #1 on the right side mid - axillary remains with dressing dry and intact, no drainage or oozing is noted, clear serosanguineous fluid in collected on the collection chamber, the chest tube is connected to the wall suction with fluids at the -20 with the water seal filled to the adequate pattie. chest tube (pleura-vac) #2 on the is connected to a thora-vent located on the left upper chest, thora vent is connected to the wall suction and then to a pleura-vac, the pleura vac suction chamber is filled to -20 and water seal to marking indicted, collection chamber has old dry blood with little drainage.
--- NOTE | 2020-08-14 13:45 | NUR ---
NURSE NOTES: Dr. Butler is at the bedside and reviewed the patient chart, also assessed chest tubes and updated on the color and drainage of the chest tubes. no verbal orders given at this time.
--- NOTE | 2020-08-14 13:49 | Pulmonology Progress Note ---
Subjective ROS Limited/Unobtainable: Yes Gastrointestinal/Abdominal: Denies: nausea, vomiting, diarrhea Musculoskeletal: Reports: pain Allergies: Coded Allergies: No Known Allergies (Unverified , 03/08/17) All Systems: reviewed and negative except above Subjective ct in place remains on high oxygen and PEEP reduced to 10 and desat noted and now increased on vent full code d/w nursing sedated tachypneic Objective Last 24 Hour Vital Signs Date Time Temp Pulse Resp B/P (MAP) Pulse Ox O2 Delivery O2 Flow Rate FiO2 08/14/20 13:00 112 26 142/90 (107) 96 08/14/20 12:53 28 Mechanical Ventilator 100 08/14/20 12:30 115 28 132/82 (99) 96 08/14/20 12:09 121 27 94 Mechanical Ventilator 100 08/14/20 12:00 Mechanical Ventilator 08/14/20 12:00 97.4 120 27 133/86 (102) 93 08/14/20 12:00 100 08/14/20 11:30 124 29 149/87 (107) 91 08/14/20 11:29 113 27 100 08/14/20 11:00 125 31 149/84 (105) 87 08/14/20 10:30 123 32 140/87 (104) 92 08/14/20 10:00 110 29 137/77 (97) 98 08/14/20 09:30 98 26 132/80 (97) 100 08/14/20 09:00 95 24 122/84 (97) 96 08/14/20 08:30 92 18 124/95 (105) 08/14/20 08:00 100 08/14/20 08:00 26 Mechanical Ventilator 100 08/14/20 08:00 Mechanical Ventilator 08/14/20 08:00 97.6 92 25 138/90 (106) 100 08/14/20 08:00 92 08/14/20 07:30 101 27 137/90 (106) 08/14/20 07:13 94 26 100 08/14/20 07:00 100 25 136/100 (112) 99 08/14/20 07:00 24 Mechanical Ventilator 100 08/14/20 06:30 100 24 148/97 (114) 08/14/20 06:00 104 25 141/90 (107) 99 08/14/20 06:00 25 Mechanical Ventilator 100 08/14/20 05:30 106 27 136/95 (109) 99 08/14/20 05:00 112 25 141/95 (110) 96 08/14/20 05:00 25 Mechanical Ventilator 100 08/14/20 04:30 117 26 126/89 (101) 94 08/14/20 04:00 97.7 117 26 137/91 (106) 94 08/14/20 04:00 Mechanical Ventilator 08/14/20 04:00 26 Mechanical Ventilator 100 08/14/20 04:00 125 08/14/20 04:00 100 08/14/20 03:30 120 27 137/89 (105) 08/14/20 03:00 120 25 143/93 (110) 99 08/14/20 03:00 25 Mechanical Ventilator 100 08/14/20 02:35 27 Mechanical Ventilator 100 08/14/20 02:30 117 26 128/88 (101) 08/14/20 02:24 95 29 100 08/14/20 02:00 27 Mechanical Ventilator 100 08/14/20 02:00 110 27 129/87 (101) 99 08/14/20 01:30 107 26 121/86 (98) 99 08/14/20 01:00 103 28 134/98 (110) 99 08/14/20 01:00 27 Mechanical Ventilator 100 08/14/20 00:30 106 26 121/79 (93) 99 08/14/20 00:00 100 08/14/20 00:00 97.0 106 27 126/95 (105) 99 08/14/20 00:00 27 Mechanical Ventilator 100 08/14/20 00:00 104 08/14/20 00:00 Mechanical Ventilator 08/13/20 23:30 106 26 124/89 (101) 99 08/13/20 23:06 102 29 100 08/13/20 23:00 106 27 136/94 (108) 99 08/13/20 23:00 27 Mechanical Ventilator 100 08/13/20 22:30 105 27 125/91 (102) 99 08/13/20 22:00 107 28 122/89 (100) 99 08/13/20 22:00 28 Mechanical Ventilator 100 08/13/20 21:30 103 26 129/86 (100) 08/13/20 21:00 25 Mechanical Ventilator 100 08/13/20 21:00 104 26 119/78 (92) 99 08/13/20 20:00 113 08/13/20 20:00 Mechanical Ventilator 08/13/20 20:00 100 08/13/20 20:00 97.0 117 25 119/77 (91) 98 08/13/20 20:00 25 Mechanical Ventilator 100 08/13/20 19:39 110 31 100 08/13/20 19:30 122 27 111/78 (89) 98 08/13/20 19:00 130 27 115/88 (97) 08/13/20 19:00 27 Mechanical Ventilator 100 08/13/20 18:30 131 27 119/81 (94) 08/13/20 18:00 27 Mechanical Ventilator 100 08/13/20 18:00 133 26 116/72 (87) 08/13/20 17:30 135 27 114/80 (91) 08/13/20 17:00 27 Mechanical Ventilator 100 08/13/20 17:00 139 27 116/73 (87) 92 08/13/20 16:30 141 28 120/86 (97) 91 08/13/20 16:12 26 Mechanical Ventilator 100 08/13/20 16:00 Mechanical Ventilator 08/13/20 16:00 136 08/13/20 16:00 100 08/13/20 16:00 28 Mechanical Ventilator 100 08/13/20 16:00 99.0 136 29 131/85 (100) 89 08/13/20 15:30 138 25 150/82 (104) 86 08/13/20 15:10 142 29 100 08/13/20 15:00 135 28 134/86 (102) 87 08/13/20 15:00 29 Mechanical Ventilator 100 08/13/20 14:30 134 29 145/89 (107) 88 08/13/20 14:00 29 Mechanical Ventilator 100 08/13/20 14:00 126 29 96/61 (73) 88 Intake and Output 08/13/20 08/14/20 19:00 07:00 Intake Total 790.41923 ml 708.3 ml Output Total 676 ml 374 ml Balance 114.87754 ml 334.3 ml IV Total 310.65655 ml 228.3 ml Tube Feeding 480 ml 480 ml Output Urine Total 540 ml 310 ml Stool Total 20 ml Chest Tube Drainage Total 136 ml 44 ml # Bowel Movements 100 Objective deferred due to COVID Laboratory Tests 08/14/20 06:33: Sodium Level 145, Potassium Level 4.6, Chloride Level 106, Carbon Dioxide Level 39H, Anion Gap 0L, Blood Urea Nitrogen 24H, Creatinine 0.4L, Estimat Glomerular Filtration Rate > 60, Glucose Level 178H, Calcium Level 9.2 08/14/20 09:30: White Blood Count 13.1H, Red Blood Count 3.36L, Hemoglobin 10.1L, Hematocrit 33.5L, Mean Corpuscular Volume 100H, Mean Corpuscular Hemoglobin 30.2, Mean Corpuscular Hemoglobin Concent 30.3L, Red Cell Distribution Width 17.6H, Platelet Count 236, Mean Platelet Volume 6.9, Neutrophils (%) (Auto) , Lymphocytes (%) (Auto) , Monocytes (%) (Auto) , Eosinophils (%) (Auto) , Basophils (%) (Auto) , Differential Total Cells Counted 100, Neutrophils % (Manual) 86H, Lymphocytes % (Manual) 7L, Monocytes % (Manual) 3, Eosinophils % (Manual) 0, Basophils % (Manual) 0, Band Neutrophils 4, Platelet Estimate Adequate, Platelet Morphology Normal, Polychromasia 1+, Hypochromasia 1+, Anisocytosis 1+, Macrocytosis 1+ Current Medications Medications (Trade) Dose Ordered Sig/Milagro Route PRN Reason Start Time Stop Time Status Last Admin Dose Admin Acetaminophen (Tylenol) 650 mg Q4H PRN RECTAL Mild Pain (Pain Scale 1-3) 07/24/20 18:15 08/23/20 18:14 07/25/20 11:49 Acetaminophen (Tylenol) 650 mg Q6H PRN NG Mild Pain (Pain Scale 1-3) 07/26/20 08:30 08/25/20 08:29 08/09/20 18:15 Acetaminophen (Tylenol) 650 mg Q6H PRN NG Temp >100.5 07/26/20 08:30 08/25/20 08:29 08/13/20 05:06 Chlorhexidine Gluconate (Marycarmen-Hex 2%) 1 applic DAILY@1999 TOPIC 07/20/20 20:00 10/18/20 19:59 08/13/20 19:50 Dextrose (Dextrose 50%) 25 ml Q30M PRN IV Hypoglycemia 07/23/20 13:15 10/21/20 13:14 Dextrose (Dextrose 50%) 50 ml Q30M PRN IV Hypoglycemia 07/23/20 13:15 10/21/20 13:14 08/11/20 04:04 Dextrose/Sodium Chloride 1,000 ml @ 100 mls/hr Q10H PRN IV WHILE PRONING ONLY 07/24/20 17:45 08/23/20 17:44 08/10/20 05:33 Docusate Sodium (Colace) 100 mg EVERY 12 HOURS NG 07/27/20 21:00 08/26/20 20:59 08/14/20 07:55 Famotidine (Pepcid I.v.) 20 mg Q12HR IVP 08/04/20 21:00 09/03/20 20:59 08/14/20 07:55 Fluconazole (Diflucan) 100 mg Q24H NG 08/08/20 20:00 08/15/20 19:59 08/13/20 19:51 Insulin Aspart (NovoLOG) EVERY 6 HOURS SUBQ 07/28/20 00:00 10/21/20 15:59 08/14/20 13:08 Insulin Detemir (Levemir) 26 units EVERY 12 HOURS SUBQ 07/26/20 09:00 10/20/20 08:59 08/14/20 08:30 Levofloxacin (Levaquin) 750 mg DAILY NG 08/13/20 14:00 08/20/20 13:59 08/14/20 07:55 Midazolam HCl 100 mg/Sodium Chloride 200 ml @ 0 mls/hr Q24H IV 08/12/20 18:00 08/19/20 17:59 08/14/20 12:53 Vitamin B Complex (Vitamin B Complex) 1 tab DAILY NG 07/24/20 09:00 10/09/20 08:59 08/14/20 07:55 Assessment/Plan Assessment/Plan acute hypoxemic respiratory failure COVID pneumonia Asthma elevated liver enzymes DNR ARDS with fibrosing phase pneumothorax elevated TG subq emphysema PLAN mild improvement in o2 sats CT per surgery imaging reviewed needs trach for chronic vent management---PEEP increased (will try to decrease if sats better in am) monitor acid base status respiratory care ID noted DVT prophylaxis prognosis poor overall for meaningful recovery monitor respiratory status for change not safe for trach placement medications/laboratory data/nursing notes/ICU care reviewed in detail note reviewed and edited care discussed with RN and RT ICU time spent >40 minutes Elfego Price MD Aug 14, 2020 13:49
--- NOTE | 2020-08-14 13:57 | Surgery Progress Note ---
Surgery Progress Note Subjective Procedure Performed left chest tube insertion Additional Comments ill appearing no acute events chest tube stable cxr ntoed Objective Last 24 Hour Vital Signs Date Time Temp Pulse Resp B/P (MAP) Pulse Ox O2 Delivery O2 Flow Rate FiO2 08/14/20 13:00 112 26 142/90 (107) 96 08/14/20 12:53 28 Mechanical Ventilator 100 08/14/20 12:30 115 28 132/82 (99) 96 08/14/20 12:09 121 27 94 Mechanical Ventilator 100 08/14/20 12:00 Mechanical Ventilator 08/14/20 12:00 97.4 120 27 133/86 (102) 93 08/14/20 12:00 100 08/14/20 11:30 124 29 149/87 (107) 91 08/14/20 11:29 113 27 100 08/14/20 11:00 125 31 149/84 (105) 87 08/14/20 10:30 123 32 140/87 (104) 92 08/14/20 10:00 110 29 137/77 (97) 98 08/14/20 09:30 98 26 132/80 (97) 100 08/14/20 09:00 95 24 122/84 (97) 96 08/14/20 08:30 92 18 124/95 (105) 08/14/20 08:00 100 08/14/20 08:00 26 Mechanical Ventilator 100 08/14/20 08:00 Mechanical Ventilator 08/14/20 08:00 97.6 92 25 138/90 (106) 100 08/14/20 08:00 92 08/14/20 07:30 101 27 137/90 (106) 08/14/20 07:13 94 26 100 08/14/20 07:00 100 25 136/100 (112) 99 08/14/20 07:00 24 Mechanical Ventilator 100 08/14/20 06:30 100 24 148/97 (114) 08/14/20 06:00 104 25 141/90 (107) 99 08/14/20 06:00 25 Mechanical Ventilator 100 08/14/20 05:30 106 27 136/95 (109) 99 08/14/20 05:00 112 25 141/95 (110) 96 08/14/20 05:00 25 Mechanical Ventilator 100 08/14/20 04:30 117 26 126/89 (101) 94 08/14/20 04:00 97.7 117 26 137/91 (106) 94 08/14/20 04:00 Mechanical Ventilator 08/14/20 04:00 26 Mechanical Ventilator 100 08/14/20 04:00 125 08/14/20 04:00 100 08/14/20 03:30 120 27 137/89 (105) 08/14/20 03:00 120 25 143/93 (110) 99 08/14/20 03:00 25 Mechanical Ventilator 100 08/14/20 02:35 27 Mechanical Ventilator 100 08/14/20 02:30 117 26 128/88 (101) 08/14/20 02:24 95 29 100 08/14/20 02:00 27 Mechanical Ventilator 100 08/14/20 02:00 110 27 129/87 (101) 99 08/14/20 01:30 107 26 121/86 (98) 99 08/14/20 01:00 103 28 134/98 (110) 99 08/14/20 01:00 27 Mechanical Ventilator 100 08/14/20 00:30 106 26 121/79 (93) 99 08/14/20 00:00 100 08/14/20 00:00 97.0 106 27 126/95 (105) 99 08/14/20 00:00 27 Mechanical Ventilator 100 08/14/20 00:00 104 08/14/20 00:00 Mechanical Ventilator 08/13/20 23:30 106 26 124/89 (101) 99 08/13/20 23:06 102 29 100 08/13/20 23:00 106 27 136/94 (108) 99 08/13/20 23:00 27 Mechanical Ventilator 100 08/13/20 22:30 105 27 125/91 (102) 99 08/13/20 22:00 107 28 122/89 (100) 99 08/13/20 22:00 28 Mechanical Ventilator 100 08/13/20 21:30 103 26 129/86 (100) 08/13/20 21:00 25 Mechanical Ventilator 100 08/13/20 21:00 104 26 119/78 (92) 99 08/13/20 20:00 113 08/13/20 20:00 Mechanical Ventilator 08/13/20 20:00 100 08/13/20 20:00 97.0 117 25 119/77 (91) 98 08/13/20 20:00 25 Mechanical Ventilator 100 08/13/20 19:39 110 31 100 08/13/20 19:30 122 27 111/78 (89) 98 08/13/20 19:00 130 27 115/88 (97) 08/13/20 19:00 27 Mechanical Ventilator 100 08/13/20 18:30 131 27 119/81 (94) 08/13/20 18:00 27 Mechanical Ventilator 100 08/13/20 18:00 133 26 116/72 (87) 08/13/20 17:30 135 27 114/80 (91) 08/13/20 17:00 27 Mechanical Ventilator 100 08/13/20 17:00 139 27 116/73 (87) 92 08/13/20 16:30 141 28 120/86 (97) 91 08/13/20 16:12 26 Mechanical Ventilator 100 08/13/20 16:00 Mechanical Ventilator 08/13/20 16:00 136 08/13/20 16:00 100 08/13/20 16:00 28 Mechanical Ventilator 100 08/13/20 16:00 99.0 136 29 131/85 (100) 89 08/13/20 15:30 138 25 150/82 (104) 86 08/13/20 15:10 142 29 100 08/13/20 15:00 135 28 134/86 (102) 87 08/13/20 15:00 29 Mechanical Ventilator 100 08/13/20 14:30 134 29 145/89 (107) 88 08/13/20 14:00 29 Mechanical Ventilator 100 08/13/20 14:00 126 29 96/61 (73) 88 I&O Intake and Output 08/13/20 08/14/20 19:00 07:00 Intake Total 790.50467 ml 708.3 ml Output Total 676 ml 374 ml Balance 114.19988 ml 334.3 ml IV Total 310.21910 ml 228.3 ml Tube Feeding 480 ml 480 ml Output Urine Total 540 ml 310 ml Stool Total 20 ml Chest Tube Drainage Total 136 ml 44 ml # Bowel Movements 100 Dressing: saturated Cardiovascular: RSR Respiratory: decreased breath sounds Abdomen: soft, non-tender, present bowel sounds Extremities: no tenderness, no cyanosis Laboratory Tests Test 08/14/20 06:33 08/14/20 09:30 Sodium Level 145 MMOL/L (136-145) Potassium Level 4.6 MMOL/L (3.5-5.1) Chloride Level 106 MMOL/L (98-107) Carbon Dioxide Level 39 MMOL/L (21-32) H Anion Gap 0 mmol/L (5-15) L Blood Urea Nitrogen 24 mg/dL (7-18) H Creatinine 0.4 MG/DL (0.55-1.30) L Estimat Glomerular Filtration Rate > 60 mL/min (>60) Glucose Level 178 MG/DL (74-106) H Calcium Level 9.2 MG/DL (8.5-10.1) White Blood Count 13.1 K/UL (4.8-10.8) H Red Blood Count 3.36 M/UL (4.70-6.10) L Hemoglobin 10.1 G/DL (14.2-18.0) L Hematocrit 33.5 % (42.0-52.0) L Mean Corpuscular Volume 100 FL (80-99) H Mean Corpuscular Hemoglobin 30.2 PG (27.0-31.0) Mean Corpuscular Hemoglobin Concent 30.3 G/DL (32.0-36.0) L Red Cell Distribution Width 17.6 % (11.6-14.8) H Platelet Count 236 K/UL (150-450) Mean Platelet Volume 6.9 FL (6.5-10.1) Neutrophils (%) (Auto) % (45.0-75.0) Lymphocytes (%) (Auto) % (20.0-45.0) Monocytes (%) (Auto) % (1.0-10.0) Eosinophils (%) (Auto) % (0.0-3.0) Basophils (%) (Auto) % (0.0-2.0) Differential Total Cells Counted 100 Neutrophils % (Manual) 86 % (45-75) H Lymphocytes % (Manual) 7 % (20-45) L Monocytes % (Manual) 3 % (1-10) Eosinophils % (Manual) 0 % (0-3) Basophils % (Manual) 0 % (0-2) Band Neutrophils 4 % (0-8) Platelet Estimate Adequate Platelet Morphology Normal Polychromasia 1+ Hypochromasia 1+ Anisocytosis 1+ Macrocytosis 1+ Plan Problems: (1) Pneumothorax Assessment & Plan: 30M covid on vent peep 16 fi02 100 right ptx s/p right chest tube ett complication replaced 07/01 chest tube vac replaced this AM as well given malfunction high risk low tv cxr noted ill appearing tube and lines checked will need to monitor closely unable to wean vent at this time cont current care plan Right pneumothorax is slightly increased from the prior exam, still small. Right chest tube remains in place. Stable satisfactory position of endotracheal and orogastric tubes. Left arm PICC remain stable. Previously demonstrated pneumomediastinum is not definitely evident currently. There is marked improvement of previously demonstrated right supraclavicular subcutaneous emphysema, with mild residual. Bilateral infiltrates remain worsening prognosis guarded chest tube stable but leak with high peep bilateral chest tubes placed now bilateral ptx (2) Respiratory failure (3) Coronavirus infection (4) Diabetes (5) Hypercapnia (6) Hypoxia (7) Asthma (8) HTN (hypertension) (9) Obesity (BMI 30-39.9) (10) Acute respiratory distress syndrome (ARDS) due to 2019-nCoV (11) Acute hypoxemic respiratory failure due to COVID-19 (12) Bradycardia (13) Laceration Mulugeta Butler Aug 14, 2020 13:57
--- NOTE | 2020-08-14 15:45 | NUR ---
NURSE NOTES: oral care provided on the patient, softly cleaned lips and mouth as there is a scab on the lower lips. patient repositioned and remains on the cooling blanket, will continue to monitor.
--- NOTE | 2020-08-14 17:30 | NUR ---
NURSE NOTES: while providing sponge bath and repositioning, his heart rate decreases to 60-65 while laying on his right lateral side. after laying flat on the bed, his heart rate increased to 85-90 in sinus rhythm. patient remained on versed drip at 10mg/hr.
--- NOTE | 2020-08-14 19:24 | NUR ---
NURSE HAND-OFF REPORT: Latest Vital Signs: Temperature 97.0 , Pulse 110 , B/P 130 /87 , Respiratory Rate 26 , O2 SAT 92 , Mechanical Ventilator, O2 Flow Rate . Vital Sign Comment: EKG Rhythm: Sinus Tachycardia Rhythm change?: N MD Notified?: Ildefonso Diana at bedside for re-intubation MD Response: Latest Bradley Fall Score: 50 Fall Risk: High Risk Safety Measures: Call light Within Reach, Bed Alarm Zone 1, Side Rails Side Rails x3, Bed position Low and Locked. Fall Precautions: Yellow Socks Yellow Gown Door Sign Patient Fall Education Report given to ELIER Srivastava.
--- NOTE | 2020-08-14 19:30 | NUR ---
NURSE NOTES: Received report from ELIER Woods. Pt is sedated on the bed and RASS-2. Pt has ETT and orally intubated. Vent dependent and setting with AC: 26, T: 500, P:16, FiO2 100% and SaO2 92-94% noted. Given suction and oral care. Pt has NGT and on running with Glucerna 1.2 @ 40cc/hr. checked NGT placement. Noted 10cc residual noted. Pt has Biswas cath and Rectal tube and patent and drainage well. Pt has Rt side chest tube and Lt upper chest Thora Vent and connected with low intermittent suction. Pt has Lt. upper arm PICC line and dressing is clean and dry and on running with Versed @ 10mg/hr. No fever noted with cooling measure. Placed fall precaution. Noted proper isolation for COVID-19. Will continue to care plan.
[2020-08-14] MEDS: Dyna-Hex 2% Top Sol 2oz TOPIC SCH (19:47)
[2020-08-14] MEDS: Fluconazole 100mg tab NG SCH (19:47)
--- NOTE | 2020-08-14 22:00 | NUR ---
NURSE NOTES: SaO2 99% with current Vent setting. Given suction and oral care. Turn and repositio. Will continue to monitor any change of condition.
[2020-08-15] VITALS (32 sets, daily range): BP systolic 98–147; BP diastolic 51–95
--- NOTE | 2020-08-15 | NUR ---
NURSE NOTES: Pt is Sedated on the bed and RASS -2. No fever noted with cooling measure. On monitoring tech with ST. SaO2 99% with current Vent setting. checked Rt and Lt side chest tube placement. No active bleeding noted. Dressing is intact and connected with intermittent low suction with chamber. Noted serosanguineous drainage. Tolerated well with NGT feeding. Placed fall precaution. Will continue to monitor any change of condition.
--- NOTE | 2020-08-15 02:00 | NUR ---
NURSE NOTES: Pt is sedated on the bed and RASS score -2. On running with Versed @ 10mg/hr. SaO2 99% with current Vent setting. changed position. Will continue to monitor any change of condition.
--- NOTE | 2020-08-15 04:00 | NUR ---
NURSE NOTES: Morning care was done. Cleaned Pt and applied lotion and cream. changed Lt. upper arm PICC line. SAO2 97-99% with current Vent setting. On ekg monitor tech with SR. No fever. No sign of pain by FLACC scale. Still noted scabs on lip area. Given mouth care. Connected well on Rt. chest and Lt. chest tube with chamber and suction. Tolerated well NGT feeding. Repositioned. Will continue to monitor any change of condition.
[2020-08-15 05:42] LABS: HEMATOCRIT 30.5 % (42.0-52.0); HEMOGLOBIN 9.5 G/DL (14.2-18.0); MEAN CORPUSCULAR VOLUME 99 FL (80-99); PLATELET COUNT 241 K/UL (150-450); RED BLOOD COUNT 3.06 M/UL (4.70-6.10); RED CELL DISTRIBUTION WIDTH 17.9 % (11.6-14.8)
[2020-08-15] MEDS: NovoLOG Insulin Flexpen SUBQ SCH ×3 (06:00→17:20)
--- NOTE | 2020-08-15 06:00 | NUR ---
NURSE NOTES: SaO2 99-100% with current Vent setting. No fever. Noted 50cc serosanguineous color output from Lt chest tube and 3cc serosanguineous color output from Rt. chest Thora Vent. Repositioned Pt. RASS score -2 and On running with Versed @ 10mg/hr. Will continue to monitor any change of condition.
[2020-08-15 06:14] LABS: ANION GAP -2 mmol/L (5-15); BLOOD UREA NITROGEN 21 mg/dL (7-18); CALCIUM 8.8 MG/DL (8.5-10.1); CHLORIDE 106 MMOL/L (98-107); CREATININE 0.2 MG/DL (0.55-1.30); POTASSIUM 4.1 MMOL/L (3.5-5.1); SODIUM 147 MMOL/L (136-145)
[2020-08-15 06:19] LABS: CARBON DIOXIDE 43 MMOL/L (21-32)
--- NOTE | 2020-08-15 07:21 | NUR ---
NURSE HAND-OFF REPORT: Latest Vital Signs: Temperature 97.0 , Pulse 89 , B/P 122 /74 , Respiratory Rate 20 , O2 SAT 100 , Mechanical Ventilator, O2 Flow Rate . Vital Sign Comment: EKG Rhythm: Sinus Rhythm Rhythm change?: N Latest Bradley Fall Score: 50 Fall Risk: High Risk Safety Measures: Call light Within Reach, Bed Alarm Zone 1, Side Rails Side Rails x3, Bed position Low and Locked. Fall Precautions: Yellow Socks Yellow Gown Door Sign Patient Fall Education Report given to ELIER Middleton. RASS score -2 and on running with Versed @ 10mg/hr. Pt has Rt chest tube and Lt. Thora Vent and connected with Suction.
--- NOTE | 2020-08-15 07:22 | NUR ---
NURSE NOTES: Report received from Carola Ulrich RN. Patient is sedated in bed. RASS -2. SR on color television console monitor. Patient is Afebrile. Oral temp 97.3. ETT 7.5/25cm at lip line. AC 26, TV 500, FiO2 100%, P 16. O2 sat 98-100%. RR 20-27. Right chest tube in on low intermittent suction 20mmHg as ordered, draining small amount of serosang liquid. Left Thora-vent in place and on low intermittent suction 20 mmHg. No leaks noted. Dressing dry and intact. Subcutaneous emphysema on bilateral neck area noted. Left NGT in place receiving Glucerna 1.2 at 40cc/hr. No residual noted. Biswas in place draining yen colored urine to gravity. Rectal tube in place draining to gravity. Pitting edema +2 on bilateral arms, hands, and feet noted. DANIEL PICC line patent and asymptomatic. Versed is running at10mg/hr. Bed in lowest position. Side rails up x3. Will resume plan of care. Addendum: 08/16/20 at 1052 by CAROL ALFRED RN RN Late Entry NURSE NOTES: Report received from Carola Ulrich RN. Patient is sedated in bed. RASS -2. SR on color television console monitor. Patient is Afebrile. Oral temp 97.3. ETT 7.5/25cm at lip line. AC 26, TV 500, FiO2 100%, P 16. O2 sat 98-100%. RR 20-27. Right chest tube in on low intermittent suction 20mmHg as ordered, draining small amount of serosang liquid. Left Thora-vent in place and on low intermittent suction 20 mmHg. No leaks on left Thora-Vent. Air leak from the right chest tube noted. Dressing dry and intact. Subcutaneous emphysema on bilateral neck area noted. Will make MD aware. Left NGT in place receiving Glucerna 1.2 at 40cc/hr. No residual noted. Biswas in place draining yen colored urine to gravity. Rectal tube in place draining to gravity. Pitting edema +2 on bilateral arms, hands, and feet noted. DANIEL PICC line patent and asymptomatic. Versed is running at 10mg/hr. Bed in lowest position. Side rails up x3. Will resume plan of care.
--- NOTE | 2020-08-15 08:42 | NUR ---
RADIOLOGY: PCXR COMPLETED 0800HRS. [place]
--- NOTE | 2020-08-15 08:53 | NUR ---
NURSE NOTES: Dr Price and Dr Cherry here to see the patient. Updated them with patient's current condition and abnormal labs. Order to change vent setting received, noted, and carried out. Notified RT.
--- NOTE | 2020-08-15 09:03 | NUR ---
RESPIRATORY NOTE: PEEP titrated to 12 from 16 per MD order. ELIER charles
[2020-08-15] MEDS: Docusate 100mg/10ml Liq NG SCH ×2 (09:04→20:25)
[2020-08-15] MEDS: Vitamin B Complex Tab NG SCH (09:04)
[2020-08-15] MEDS: Levofloxacin 750mg tab NG SCH (09:04)
[2020-08-15] MEDS: Midazolam HCl 50mg/10ml vial 100 MG in NS 180 ML IV SCH ×2 (09:05→19:00)
[2020-08-15] MEDS: Levemir Flexpen SUBQ SCH ×2 (09:36→20:26)
--- NOTE | 2020-08-15 10:42 | Diagnostic Imaging Report ---
Indication: Shortness of breath Technique: One view of the chest Comparison: 08/13/2020 Findings: Chest vent catheter remains in place on the left. Previously demonstrated left pneumothorax has improved considerably, with some residual primarily at the left lung base. Right chest tube remains in place. Small right apical pneumothorax is unchanged. Bilateral subcutaneous emphysema is slightly worse. The endotracheal and orogastric tube positions are stable and satisfactory. Left arm PICC is again demonstrated. The heart size is normal. Bilateral infiltrates are unchanged Impression: Over 2 days, interim marked improvement of previously demonstrated left pneumothorax, now small Unchanged small right apical pneumothorax Unchanged bilateral infiltrates
--- NOTE | 2020-08-15 11:32 | Surgery Progress Note ---
Surgery Progress Note Subjective Procedure Performed left chest tube insertion Additional Comments left pneumothorax improved still requiring significant support air leak noted Objective Last 24 Hour Vital Signs Date Time Temp Pulse Resp B/P (MAP) Pulse Ox O2 Delivery O2 Flow Rate FiO2 08/15/20 10:00 27 Mechanical Ventilator 100 08/15/20 10:00 109 25 135/75 (95) 99 08/15/20 09:05 25 Mechanical Ventilator 100 08/15/20 09:00 24 Mechanical Ventilator 100 08/15/20 09:00 96 23 119/66 (83) 100 08/15/20 09:00 100 08/15/20 08:06 92 08/15/20 08:00 97.3 89 21 117/72 (87) 100 08/15/20 08:00 23 Mechanical Ventilator 08/15/20 08:00 Mechanical Ventilator 08/15/20 07:00 89 20 122/74 (90) 100 08/15/20 07:00 20 Mechanical Ventilator 100 08/15/20 07:00 90 28 100 08/15/20 06:30 87 20 121/80 (94) 100 08/15/20 06:00 83 22 133/83 (100) 100 08/15/20 06:00 22 Mechanical Ventilator 100 08/15/20 05:30 88 22 130/78 (95) 100 08/15/20 05:00 25 Mechanical Ventilator 100 08/15/20 05:00 87 25 128/89 (102) 98 08/15/20 04:30 90 20 130/86 (101) 100 08/15/20 04:00 97.0 92 25 130/89 (103) 100 08/15/20 04:00 Mechanical Ventilator 08/15/20 04:00 89 08/15/20 04:00 25 Mechanical Ventilator 100 08/15/20 04:00 100 08/15/20 03:30 88 25 134/95 (108) 100 08/15/20 03:00 88 26 136/92 (107) 99 08/15/20 03:00 26 Mechanical Ventilator 100 08/15/20 02:51 84 26 100 08/15/20 02:30 87 25 137/87 (104) 98 08/15/20 02:00 20 Mechanical Ventilator 100 08/15/20 02:00 91 20 139/89 (106) 99 08/15/20 01:30 92 22 134/93 (107) 99 08/15/20 01:00 94 25 135/95 (108) 99 08/15/20 01:00 25 Mechanical Ventilator 100 08/15/20 00:30 98 25 132/83 (99) 08/15/20 00:00 100 08/15/20 00:00 96.9 104 26 140/92 (108) 99 08/15/20 00:00 26 Mechanical Ventilator 100 08/15/20 00:00 105 08/15/20 00:00 Mechanical Ventilator 08/14/20 23:30 105 28 143/92 (109) 98 08/14/20 23:03 27 Mechanical Ventilator 100 08/14/20 23:00 108 24 144/92 (109) 98 08/14/20 23:00 24 Mechanical Ventilator 100 08/14/20 22:44 104 27 100 08/14/20 22:30 111 24 137/89 (105) 98 08/14/20 22:00 28 Mechanical Ventilator 100 08/14/20 22:00 115 28 147/91 (109) 99 08/14/20 21:30 116 27 139/82 (101) 100 08/14/20 21:00 28 Endotracheal Tube 100 08/14/20 21:00 118 28 136/89 (105) 100 08/14/20 20:30 126 25 138/85 (102) 97 08/14/20 20:00 113 08/14/20 20:00 Mechanical Ventilator 08/14/20 20:00 26 Mechanical Ventilator 100 08/14/20 20:00 100 08/14/20 20:00 96.6 123 26 149/92 (111) 95 08/14/20 19:39 103 29 100 08/14/20 19:30 119 30 134/82 (99) 95 08/14/20 19:00 110 27 130/87 (101) 92 08/14/20 19:00 26 Mechanical Ventilator 100 08/14/20 18:30 98 27 127/85 (99) 94 08/14/20 18:00 26 Mechanical Ventilator 100 08/14/20 18:00 92 25 122/90 (101) 94 08/14/20 17:30 92 26 127/83 (98) 92 08/14/20 17:00 85 26 123/85 (98) 08/14/20 17:00 26 Mechanical Ventilator 100 08/14/20 16:30 83 26 136/89 (105) 08/14/20 16:00 Mechanical Ventilator 08/14/20 16:00 26 Mechanical Ventilator 100 08/14/20 16:00 97.0 86 25 125/88 (100) 08/14/20 16:00 93 08/14/20 16:00 100 08/14/20 15:30 92 26 125/88 (100) 08/14/20 15:28 88 28 100 08/14/20 15:00 26 Mechanical Ventilator 100 08/14/20 15:00 94 25 125/88 (100) 08/14/20 14:30 95 25 127/88 (101) 08/14/20 14:00 26 Mechanical Ventilator 100 08/14/20 14:00 100 25 131/81 (98) 08/14/20 13:30 109 26 142/86 (104) 08/14/20 13:00 26 Mechanical Ventilator 100 08/14/20 13:00 112 26 142/90 (107) 96 08/14/20 12:53 28 Mechanical Ventilator 100 08/14/20 12:30 115 28 132/82 (99) 96 08/14/20 12:09 121 27 94 Mechanical Ventilator 100 08/14/20 12:00 Mechanical Ventilator 08/14/20 12:00 27 Mechanical Ventilator 100 08/14/20 12:00 97.4 120 27 133/86 (102) 93 08/14/20 12:00 100 08/14/20 12:00 120 I&O Intake and Output 08/14/20 08/15/20 19:00 07:00 Intake Total 714.75934 ml 699 ml Output Total 539 ml 513 ml Balance 175.27909 ml 186 ml IV Total 234.93590 ml 219 ml Tube Feeding 480 ml 480 ml Output Urine Total 455 ml 360 ml Stool Total 30 ml 100 ml Chest Tube Drainage Total 54 ml 53 ml Dressing: saturated Drains: other Cardiovascular: RSR Respiratory: decreased breath sounds Abdomen: non-tender, present bowel sounds, non-distended, decreased bowel sounds Extremities: edema, no tenderness, no cyanosis Laboratory Tests Test 08/15/20 05:09 White Blood Count 15.0 K/UL (4.8-10.8) H Red Blood Count 3.06 M/UL (4.70-6.10) L Hemoglobin 9.5 G/DL (14.2-18.0) L Hematocrit 30.5 % (42.0-52.0) L Mean Corpuscular Volume 99 FL (80-99) Mean Corpuscular Hemoglobin 31.0 PG (27.0-31.0) Mean Corpuscular Hemoglobin Concent 31.2 G/DL (32.0-36.0) L Red Cell Distribution Width 17.9 % (11.6-14.8) H Platelet Count 241 K/UL (150-450) Mean Platelet Volume 7.2 FL (6.5-10.1) Neutrophils (%) (Auto) % (45.0-75.0) Lymphocytes (%) (Auto) % (20.0-45.0) Monocytes (%) (Auto) % (1.0-10.0) Eosinophils (%) (Auto) % (0.0-3.0) Basophils (%) (Auto) % (0.0-2.0) Differential Total Cells Counted 100 Neutrophils % (Manual) 94 % (45-75) H Lymphocytes % (Manual) 3 % (20-45) L Monocytes % (Manual) 3 % (1-10) Eosinophils % (Manual) 0 % (0-3) Basophils % (Manual) 0 % (0-2) Band Neutrophils 0 % (0-8) Platelet Estimate Adequate Platelet Morphology Normal Polychromasia 1+ Hypochromasia 1+ Anisocytosis 1+ Macrocytosis 1+ Sodium Level 147 MMOL/L (136-145) H Potassium Level 4.1 MMOL/L (3.5-5.1) Chloride Level 106 MMOL/L (98-107) Carbon Dioxide Level 43 MMOL/L (21-32) *H Anion Gap -2 mmol/L (5-15) L Blood Urea Nitrogen 21 mg/dL (7-18) H Creatinine 0.2 MG/DL (0.55-1.30) L Estimat Glomerular Filtration Rate > 60 mL/min (>60) Glucose Level 115 MG/DL (74-106) H Calcium Level 8.8 MG/DL (8.5-10.1) Plan Problems: (1) Pneumothorax Assessment & Plan: 30M covid on vent peep 16 fi02 100 right ptx s/p right chest tube ett complication replaced / chest tube vac replaced this AM as well given malfunction high risk low tv cxr noted ill appearing tube and lines checked will need to monitor closely unable to wean vent at this time cont current care plan Right pneumothorax is slightly increased from the prior exam, still small. Right chest tube remains in place. Stable satisfactory position of endotracheal and orogastric tubes. Left arm PICC remain stable. Previously demonstrated pneumomediastinum is not definitely evident currently. There is marked improvement of previously demonstrated right supraclavicular subcutaneous emphysema, with mild residual. Bilateral infiltrates remain worsening prognosis guarded chest tube stable but leak with high peep bilateral chest tubes placed now bilateral ptx Chest vent catheter remains in place on the left. Previously demonstrated left pneumothorax has improved considerably, with some residual primarily at the left lung base. Right chest tube remains in place. Small right apical pneumothorax is unchanged. Bilateral subcutaneous emphysema is slightly worse. The endotracheal and orogastric tube positions are stable and satisfactory. Left arm PICC is again demonstrated. The heart size is normal. Bilateral infiltrates are unchanged Impression: Over 2 days, interim marked improvement of previously demonstrated left pneumothorax, now small Unchanged small right apical pneumothorax Unchanged bilateral infiltrates (2) Respiratory failure (3) Coronavirus infection (4) Diabetes (5) Hypercapnia (6) Hypoxia (7) Asthma (8) HTN (hypertension) (9) Obesity (BMI 30-39.9) (10) Acute respiratory distress syndrome (ARDS) due to 2019-nCoV (11) Acute hypoxemic respiratory failure due to COVID-19 (12) Bradycardia (13) Laceration Mulugeta Butler Aug 15, 2020 11:32
--- NOTE | 2020-08-15 11:34 | NUR ---
NURSE NOTES: Dr Butler here to see the patient. Order to connect Right chest tube and left Thora-Vent to low continuos 20mmHg received, noted, and carried out. Water level in chest tube adjusted.
--- NOTE | 2020-08-15 11:44 | Infectious Diseases Prog Note ---
Assessment/Plan Assessment/Plan antibiotics : levoquin, fluconazole A 1. COVID-19 pneumonia on 100 % Fi O2 of oxygen with O2 saturation 93 %. s/p ivermectin x 2 2. History of asthma. 3. Elevated liver function tests improving 4. klebsiella pneumonia 5. thrush P 1. continue levoquin 2. Continue solumedrol taper doses 3. continue fluconazole 2 more days 4. Continue isolation. Subjective ROS Limited/Unobtainable: Yes - intubated Allergies: Coded Allergies: No Known Allergies (Unverified , 03/08/17) Objective Last 24 Hour Vital Signs Date Time Temp Pulse Resp B/P (MAP) Pulse Ox O2 Delivery O2 Flow Rate FiO2 08/15/20 10:00 27 Mechanical Ventilator 100 08/15/20 10:00 109 25 135/75 (95) 99 08/15/20 09:05 25 Mechanical Ventilator 100 08/15/20 09:00 24 Mechanical Ventilator 100 08/15/20 09:00 96 23 119/66 (83) 100 08/15/20 09:00 100 08/15/20 08:06 92 08/15/20 08:00 97.3 89 21 117/72 (87) 100 08/15/20 08:00 23 Mechanical Ventilator 08/15/20 08:00 Mechanical Ventilator 08/15/20 07:00 89 20 122/74 (90) 100 08/15/20 07:00 20 Mechanical Ventilator 100 08/15/20 07:00 90 28 100 08/15/20 06:30 87 20 121/80 (94) 100 08/15/20 06:00 83 22 133/83 (100) 100 08/15/20 06:00 22 Mechanical Ventilator 100 08/15/20 05:30 88 22 130/78 (95) 100 08/15/20 05:00 25 Mechanical Ventilator 100 08/15/20 05:00 87 25 128/89 (102) 98 08/15/20 04:30 90 20 130/86 (101) 100 08/15/20 04:00 97.0 92 25 130/89 (103) 100 08/15/20 04:00 Mechanical Ventilator 08/15/20 04:00 89 08/15/20 04:00 25 Mechanical Ventilator 100 08/15/20 04:00 100 08/15/20 03:30 88 25 134/95 (108) 100 08/15/20 03:00 88 26 136/92 (107) 99 08/15/20 03:00 26 Mechanical Ventilator 100 08/15/20 02:51 84 26 100 08/15/20 02:30 87 25 137/87 (104) 98 08/15/20 02:00 20 Mechanical Ventilator 100 08/15/20 02:00 91 20 139/89 (106) 99 08/15/20 01:30 92 22 134/93 (107) 99 08/15/20 01:00 94 25 135/95 (108) 99 08/15/20 01:00 25 Mechanical Ventilator 100 08/15/20 00:30 98 25 132/83 (99) 08/15/20 00:00 100 08/15/20 00:00 96.9 104 26 140/92 (108) 99 08/15/20 00:00 26 Mechanical Ventilator 100 08/15/20 00:00 105 08/15/20 00:00 Mechanical Ventilator 08/14/20 23:30 105 28 143/92 (109) 98 08/14/20 23:03 27 Mechanical Ventilator 100 08/14/20 23:00 108 24 144/92 (109) 98 08/14/20 23:00 24 Mechanical Ventilator 100 08/14/20 22:44 104 27 100 08/14/20 22:30 111 24 137/89 (105) 98 08/14/20 22:00 28 Mechanical Ventilator 100 08/14/20 22:00 115 28 147/91 (109) 99 08/14/20 21:30 116 27 139/82 (101) 100 08/14/20 21:00 28 Endotracheal Tube 100 08/14/20 21:00 118 28 136/89 (105) 100 08/14/20 20:30 126 25 138/85 (102) 97 08/14/20 20:00 113 08/14/20 20:00 Mechanical Ventilator 08/14/20 20:00 26 Mechanical Ventilator 100 08/14/20 20:00 100 08/14/20 20:00 96.6 123 26 149/92 (111) 95 08/14/20 19:39 103 29 100 08/14/20 19:30 119 30 134/82 (99) 95 08/14/20 19:00 110 27 130/87 (101) 92 08/14/20 19:00 26 Mechanical Ventilator 100 08/14/20 18:30 98 27 127/85 (99) 94 08/14/20 18:00 26 Mechanical Ventilator 100 08/14/20 18:00 92 25 122/90 (101) 94 08/14/20 17:30 92 26 127/83 (98) 92 08/14/20 17:00 85 26 123/85 (98) 08/14/20 17:00 26 Mechanical Ventilator 100 08/14/20 16:30 83 26 136/89 (105) 08/14/20 16:00 Mechanical Ventilator 08/14/20 16:00 26 Mechanical Ventilator 100 08/14/20 16:00 97.0 86 25 125/88 (100) 08/14/20 16:00 93 08/14/20 16:00 100 08/14/20 15:30 92 26 125/88 (100) 08/14/20 15:28 88 28 100 08/14/20 15:00 26 Mechanical Ventilator 100 08/14/20 15:00 94 25 125/88 (100) 08/14/20 14:30 95 25 127/88 (101) 08/14/20 14:00 26 Mechanical Ventilator 100 08/14/20 14:00 100 25 131/81 (98) 08/14/20 13:30 109 26 142/86 (104) 08/14/20 13:00 26 Mechanical Ventilator 100 08/14/20 13:00 112 26 142/90 (107) 96 08/14/20 12:53 28 Mechanical Ventilator 100 08/14/20 12:30 115 28 132/82 (99) 96 08/14/20 12:09 121 27 94 Mechanical Ventilator 100 08/14/20 12:00 Mechanical Ventilator 08/14/20 12:00 27 Mechanical Ventilator 100 08/14/20 12:00 97.4 120 27 133/86 (102) 93 08/14/20 12:00 100 08/14/20 12:00 120 Height (Feet): 5 Height (Inches): 6.00 Weight (Pounds): 209 HEENT: other - intubated Laboratory Tests Test 08/15/20 05:09 White Blood Count 15.0 K/UL (4.8-10.8) H Red Blood Count 3.06 M/UL (4.70-6.10) L Hemoglobin 9.5 G/DL (14.2-18.0) L Hematocrit 30.5 % (42.0-52.0) L Mean Corpuscular Volume 99 FL (80-99) Mean Corpuscular Hemoglobin 31.0 PG (27.0-31.0) Mean Corpuscular Hemoglobin Concent 31.2 G/DL (32.0-36.0) L Red Cell Distribution Width 17.9 % (11.6-14.8) H Platelet Count 241 K/UL (150-450) Mean Platelet Volume 7.2 FL (6.5-10.1) Neutrophils (%) (Auto) % (45.0-75.0) Lymphocytes (%) (Auto) % (20.0-45.0) Monocytes (%) (Auto) % (1.0-10.0) Eosinophils (%) (Auto) % (0.0-3.0) Basophils (%) (Auto) % (0.0-2.0) Differential Total Cells Counted 100 Neutrophils % (Manual) 94 % (45-75) H Lymphocytes % (Manual) 3 % (20-45) L Monocytes % (Manual) 3 % (1-10) Eosinophils % (Manual) 0 % (0-3) Basophils % (Manual) 0 % (0-2) Band Neutrophils 0 % (0-8) Platelet Estimate Adequate Platelet Morphology Normal Polychromasia 1+ Hypochromasia 1+ Anisocytosis 1+ Macrocytosis 1+ Sodium Level 147 MMOL/L (136-145) H Potassium Level 4.1 MMOL/L (3.5-5.1) Chloride Level 106 MMOL/L (98-107) Carbon Dioxide Level 43 MMOL/L (21-32) *H Anion Gap -2 mmol/L (5-15) L Blood Urea Nitrogen 21 mg/dL (7-18) H Creatinine 0.2 MG/DL (0.55-1.30) L Estimat Glomerular Filtration Rate > 60 mL/min (>60) Glucose Level 115 MG/DL (74-106) H Calcium Level 8.8 MG/DL (8.5-10.1) Current Medications Medications (Trade) Dose Ordered Sig/Milagro Route PRN Reason Start Time Stop Time Status Last Admin Dose Admin Acetaminophen (Tylenol) 650 mg Q4H PRN RECTAL Mild Pain (Pain Scale 1-3) 07/24/20 18:15 08/23/20 18:14 07/25/20 11:49 Acetaminophen (Tylenol) 650 mg Q6H PRN NG Mild Pain (Pain Scale 1-3) 07/26/20 08:30 08/25/20 08:29 08/09/20 18:15 Acetaminophen (Tylenol) 650 mg Q6H PRN NG Temp >100.5 07/26/20 08:30 08/25/20 08:29 08/13/20 05:06 Chlorhexidine Gluconate (Marycarmen-Hex 2%) 1 applic DAILY@2000 TOPIC 07/20/20 20:00 10/18/20 19:59 08/14/20 19:47 Dextrose (Dextrose 50%) 25 ml Q30M PRN IV Hypoglycemia 07/23/20 13:15 10/21/20 13:14 Dextrose (Dextrose 50%) 50 ml Q30M PRN IV Hypoglycemia 07/23/20 13:15 10/21/20 13:14 08/11/20 04:04 Dextrose/Sodium Chloride 1,000 ml @ 100 mls/hr Q10H PRN IV WHILE PRONING ONLY 07/24/20 17:45 08/23/20 17:44 08/10/20 05:33 Docusate Sodium (Colace) 100 mg EVERY 12 HOURS NG 07/27/20 21:00 08/26/20 20:59 08/15/20 09:04 Famotidine (Pepcid I.v.) 20 mg Q12HR IVP 08/04/20 21:00 09/03/20 20:59 08/15/20 09:04 Fluconazole (Diflucan) 100 mg Q24H NG 08/08/20 20:00 08/15/20 19:59 08/14/20 19:47 Insulin Aspart (NovoLOG) EVERY 6 HOURS SUBQ 07/28/20 00:00 10/21/20 15:59 08/14/20 23:52 Insulin Detemir (Levemir) 26 units EVERY 12 HOURS SUBQ 07/26/20 09:00 10/20/20 08:59 08/15/20 09:36 Levofloxacin (Levaquin) 750 mg DAILY NG 08/13/20 14:00 08/20/20 13:59 08/15/20 09:04 Midazolam HCl 100 mg/Sodium Chloride 200 ml @ 0 mls/hr Q24H IV 08/12/20 18:00 08/19/20 17:59 08/15/20 09:05 Vitamin B Complex (Vitamin B Complex) 1 tab DAILY NG 07/24/20 09:00 10/09/20 08:59 08/15/20 09:04 Jose Alberto MD Aug 15, 2020 11:44
--- NOTE | 2020-08-15 11:51 | NUR ---
[employer] SI: Respiratory Failure, Covid-PNA, ETT/Vent Support, pneumothorax-bilateral chest tubes to suction T 97.3 (Ax), HR 109, RR 25, BP 135/75 AC 26, TV 500, PEEP 12, FiO2 100%, O2 Sat 99% WBC 15.0, BUN 21, Creatinine 0.4, CO2 45, Anion gap -2 Cxray Over 2 days, interim marked improvement of previously demonstrated L-pneumothorax, now small Unchanged bilateral infiltrates, unchanged small rt apical pneumothorax (08-15-20) IS: Midazolam GTT Pepcid IV q 12 h D5/NS at 100cc/hr Levaquin NG QD Diflucan NG Q 24 h L-chest tube 08-12-20 ICU Status
--- NOTE | 2020-08-15 12:23 | NUR ---
NURSE NOTES: Patient is desaturating to 87-88% with peep. Notified Dr Price and order to change peep back to 16 received, noted, and carried out. Notified RT.
--- NOTE | 2020-08-15 12:24 | NUR ---
NURSE NOTES: Placed peep to back to 16 by RT as ordered. Will closely monitor O2 saturation.
--- NOTE | 2020-08-15 14:11 | NUR ---
RESPIRATORY NOTE: PEEP is back to 16 per MD. Delia THAPA aware
--- NOTE | 2020-08-15 14:25 | NUR ---
Supervisor [employer] Note: Called [facility] transfer center and left voice message for transfer to [facility]. Awaiting call back
--- NOTE | 2020-08-15 14:40 | General Progress Note ---
Subjective Allergies: Coded Allergies: No Known Allergies (Unverified , 03/08/17) Subjective no change. no fever or chills. intubated and sedated. per staff responsive. on feeds. no bleeding. Objective Last 24 Hour Vital Signs Date Time Temp Pulse Resp B/P (MAP) Pulse Ox O2 Delivery O2 Flow Rate FiO2 08/15/20 14:10 141 30 100 08/15/20 13:00 121 30 147/77 (100) 92 08/15/20 13:00 29 Mechanical Ventilator 100 08/15/20 12:24 100 08/15/20 12:00 Mechanical Ventilator 08/15/20 12:00 29 Mechanical Ventilator 100 08/15/20 12:00 97.5 127 29 137/79 (98) 89 08/15/20 11:19 126 08/15/20 11:00 115 27 139/80 (99) 92 08/15/20 11:00 27 Mechanical Ventilator 100 08/15/20 10:00 27 Mechanical Ventilator 100 08/15/20 10:00 109 25 135/75 (95) 99 08/15/20 09:05 25 Mechanical Ventilator 100 08/15/20 09:00 24 Mechanical Ventilator 100 08/15/20 09:00 96 23 119/66 (83) 100 08/15/20 09:00 100 08/15/20 08:06 92 08/15/20 08:00 97.3 89 21 117/72 (87) 100 08/15/20 08:00 23 Mechanical Ventilator 08/15/20 08:00 Mechanical Ventilator 08/15/20 07:00 89 20 122/74 (90) 100 08/15/20 07:00 20 Mechanical Ventilator 100 08/15/20 07:00 90 28 100 08/15/20 06:30 87 20 121/80 (94) 100 08/15/20 06:00 83 22 133/83 (100) 100 08/15/20 06:00 22 Mechanical Ventilator 100 08/15/20 05:30 88 22 130/78 (95) 100 08/15/20 05:00 25 Mechanical Ventilator 100 08/15/20 05:00 87 25 128/89 (102) 98 08/15/20 04:30 90 20 130/86 (101) 100 08/15/20 04:00 97.0 92 25 130/89 (103) 100 08/15/20 04:00 Mechanical Ventilator 08/15/20 04:00 89 08/15/20 04:00 25 Mechanical Ventilator 100 08/15/20 04:00 100 08/15/20 03:30 88 25 134/95 (108) 100 08/15/20 03:00 88 26 136/92 (107) 99 08/15/20 03:00 26 Mechanical Ventilator 100 08/15/20 02:51 84 26 100 08/15/20 02:30 87 25 137/87 (104) 98 08/15/20 02:00 20 Mechanical Ventilator 100 08/15/20 02:00 91 20 139/89 (106) 99 08/15/20 01:30 92 22 134/93 (107) 99 08/15/20 01:00 94 25 135/95 (108) 99 08/15/20 01:00 25 Mechanical Ventilator 100 08/15/20 00:30 98 25 132/83 (99) 08/15/20 00:00 100 08/15/20 00:00 96.9 104 26 140/92 (108) 99 08/15/20 00:00 26 Mechanical Ventilator 100 08/15/20 00:00 105 08/15/20 00:00 Mechanical Ventilator 08/14/20 23:30 105 28 143/92 (109) 98 08/14/20 23:03 27 Mechanical Ventilator 100 08/14/20 23:00 108 24 144/92 (109) 98 08/14/20 23:00 24 Mechanical Ventilator 100 08/14/20 22:44 104 27 100 08/14/20 22:30 111 24 137/89 (105) 98 08/14/20 22:00 28 Mechanical Ventilator 100 08/14/20 22:00 115 28 147/91 (109) 99 08/14/20 21:30 116 27 139/82 (101) 100 08/14/20 21:00 28 Endotracheal Tube 100 08/14/20 21:00 118 28 136/89 (105) 100 08/14/20 20:30 126 25 138/85 (102) 97 08/14/20 20:00 113 08/14/20 20:00 Mechanical Ventilator 08/14/20 20:00 26 Mechanical Ventilator 100 08/14/20 20:00 100 08/14/20 20:00 96.6 123 26 149/92 (111) 95 08/14/20 19:39 103 29 100 08/14/20 19:30 119 30 134/82 (99) 95 08/14/20 19:00 110 27 130/87 (101) 92 08/14/20 19:00 26 Mechanical Ventilator 100 08/14/20 18:30 98 27 127/85 (99) 94 08/14/20 18:00 26 Mechanical Ventilator 100 08/14/20 18:00 92 25 122/90 (101) 94 08/14/20 17:30 92 26 127/83 (98) 92 08/14/20 17:00 85 26 123/85 (98) 08/14/20 17:00 26 Mechanical Ventilator 100 08/14/20 16:30 83 26 136/89 (105) 08/14/20 16:00 Mechanical Ventilator 08/14/20 16:00 26 Mechanical Ventilator 100 08/14/20 16:00 97.0 86 25 125/88 (100) 08/14/20 16:00 93 08/14/20 16:00 100 08/14/20 15:30 92 26 125/88 (100) 08/14/20 15:28 88 28 100 08/14/20 15:00 26 Mechanical Ventilator 100 08/14/20 15:00 94 25 125/88 (100) Intake and Output 08/14/20 08/15/20 19:00 07:00 Intake Total 714.62434 ml 699 ml Output Total 539 ml 513 ml Balance 175.03234 ml 186 ml IV Total 234.99759 ml 219 ml Tube Feeding 480 ml 480 ml Output Urine Total 455 ml 360 ml Stool Total 30 ml 100 ml Chest Tube Drainage Total 54 ml 53 ml Laboratory Tests 08/15/20 05:09: White Blood Count 15.0H, Red Blood Count 3.06L, Hemoglobin 9.5L, Hematocrit 30.5L, Mean Corpuscular Volume 99, Mean Corpuscular Hemoglobin 31.0, Mean Corpuscular Hemoglobin Concent 31.2L, Red Cell Distribution Width 17.9H, Platelet Count 241, Mean Platelet Volume 7.2, Neutrophils (%) (Auto) , Lymphocytes (%) (Auto) , Monocytes (%) (Auto) , Eosinophils (%) (Auto) , Basophils (%) (Auto) , Differential Total Cells Counted 100, Neutrophils % (Manual) 94H, Lymphocytes % (Manual) 3L, Monocytes % (Manual) 3, Eosinophils % (Manual) 0, Basophils % (Manual) 0, Band Neutrophils 0, Platelet Estimate Adeq uate, Platelet Morphology Normal, Polychromasia 1+, Hypochromasia 1+, Anisocytosis 1+, Macrocytosis 1+, Sodium Level 147H, Potassium Level 4.1, Chloride Level 106, Carbon Dioxide Level 43*H, Anion Gap -2L, Blood Urea Nitrogen 21H, Creatinine 0.2L, Estimat Glomerular Filtration Rate > 60, Glucose Level 115H, Calcium Level 8.8 Height (Feet): 5 Height (Inches): 6.00 Weight (Pounds): 209 Objective deferred Assessment/Plan Problem List: (1) Coronavirus infection ICD Codes: B34.2 - Coronavirus infection, unspecified SNOMED: 946549622 (2) Respiratory failure ICD Codes: J96.90 - Respiratory failure, unspecified, unspecified whether with hypoxia or hypercapnia SNOMED: 528574037 (3) Hypercapnia ICD Codes: R06.89 - Other abnormalities of breathing SNOMED: 86236134, 606097213 (4) Hypoxia ICD Codes: R09.02 - Hypoxemia SNOMED: 678317974 (5) Asthma ICD Codes: J45.909 - Unspecified asthma, uncomplicated SNOMED: 200612269, 424909086 (6) Pneumothorax ICD Codes: J93.9 - Pneumothorax, unspecified SNOMED: 12854890 Status: progressing, not improved Assessment/Plan: vent support wean fio2 and peep as able resp care/suctioning as needed monitor for bleeding. off lovenox due to oral bleeding monitor plts- trending up scd iv abx per id replace k remains critical and guarded Rolando Cherry MD Aug 15, 2020 14:40
--- NOTE | 2020-08-15 14:56 | Pulmonology Progress Note ---
Subjective ROS Limited/Unobtainable: Yes - intubated Gastrointestinal/Abdominal: Denies: nausea, vomiting, diarrhea Musculoskeletal: Reports: pain Allergies: Coded Allergies: No Known Allergies (Unverified , 03/08/17) All Systems: reviewed and negative except above Subjective ct in place remains on high oxygen and PEEP reduced and patient desaturated on vent full code d/w nursing sedated tachycardia Objective Last 24 Hour Vital Signs Date Time Temp Pulse Resp B/P (MAP) Pulse Ox O2 Delivery O2 Flow Rate FiO2 08/15/20 14:10 141 30 100 08/15/20 13:00 121 30 147/77 (100) 92 08/15/20 13:00 29 Mechanical Ventilator 100 08/15/20 12:24 100 08/15/20 12:00 Mechanical Ventilator 08/15/20 12:00 29 Mechanical Ventilator 100 08/15/20 12:00 97.5 127 29 137/79 (98) 89 08/15/20 11:19 126 08/15/20 11:00 115 27 139/80 (99) 92 08/15/20 11:00 27 Mechanical Ventilator 100 08/15/20 10:00 27 Mechanical Ventilator 100 08/15/20 10:00 109 25 135/75 (95) 99 08/15/20 09:05 25 Mechanical Ventilator 100 08/15/20 09:00 24 Mechanical Ventilator 100 08/15/20 09:00 96 23 119/66 (83) 100 08/15/20 09:00 100 08/15/20 08:06 92 08/15/20 08:00 97.3 89 21 117/72 (87) 100 08/15/20 08:00 23 Mechanical Ventilator 08/15/20 08:00 Mechanical Ventilator 08/15/20 07:00 89 20 122/74 (90) 100 08/15/20 07:00 20 Mechanical Ventilator 100 08/15/20 07:00 90 28 100 08/15/20 06:30 87 20 121/80 (94) 100 08/15/20 06:00 83 22 133/83 (100) 100 08/15/20 06:00 22 Mechanical Ventilator 100 08/15/20 05:30 88 22 130/78 (95) 100 08/15/20 05:00 25 Mechanical Ventilator 100 08/15/20 05:00 87 25 128/89 (102) 98 08/15/20 04:30 90 20 130/86 (101) 100 08/15/20 04:00 97.0 92 25 130/89 (103) 100 08/15/20 04:00 Mechanical Ventilator 08/15/20 04:00 89 08/15/20 04:00 25 Mechanical Ventilator 100 08/15/20 04:00 100 08/15/20 03:30 88 25 134/95 (108) 100 08/15/20 03:00 88 26 136/92 (107) 99 08/15/20 03:00 26 Mechanical Ventilator 100 08/15/20 02:51 84 26 100 08/15/20 02:30 87 25 137/87 (104) 98 08/15/20 02:00 20 Mechanical Ventilator 100 08/15/20 02:00 91 20 139/89 (106) 99 08/15/20 01:30 92 22 134/93 (107) 99 08/15/20 01:00 94 25 135/95 (108) 99 08/15/20 01:00 25 Mechanical Ventilator 100 08/15/20 00:30 98 25 132/83 (99) 08/15/20 00:00 100 08/15/20 00:00 96.9 104 26 140/92 (108) 99 08/15/20 00:00 26 Mechanical Ventilator 100 08/15/20 00:00 105 08/15/20 00:00 Mechanical Ventilator 08/14/20 23:30 105 28 143/92 (109) 98 08/14/20 23:03 27 Mechanical Ventilator 100 08/14/20 23:00 108 24 144/92 (109) 98 08/14/20 23:00 24 Mechanical Ventilator 100 08/14/20 22:44 104 27 100 08/14/20 22:30 111 24 137/89 (105) 98 08/14/20 22:00 28 Mechanical Ventilator 100 08/14/20 22:00 115 28 147/91 (109) 99 08/14/20 21:30 116 27 139/82 (101) 100 08/14/20 21:00 28 Endotracheal Tube 100 08/14/20 21:00 118 28 136/89 (105) 100 08/14/20 20:30 126 25 138/85 (102) 97 08/14/20 20:00 113 08/14/20 20:00 Mechanical Ventilator 08/14/20 20:00 26 Mechanical Ventilator 100 08/14/20 20:00 100 08/14/20 20:00 96.6 123 26 149/92 (111) 95 08/14/20 19:39 103 29 100 08/14/20 19:30 119 30 134/82 (99) 95 08/14/20 19:00 110 27 130/87 (101) 92 08/14/20 19:00 26 Mechanical Ventilator 100 08/14/20 18:30 98 27 127/85 (99) 94 08/14/20 18:00 26 Mechanical Ventilator 100 08/14/20 18:00 92 25 122/90 (101) 94 08/14/20 17:30 92 26 127/83 (98) 92 08/14/20 17:00 85 26 123/85 (98) 08/14/20 17:00 26 Mechanical Ventilator 100 08/14/20 16:30 83 26 136/89 (105) 08/14/20 16:00 Mechanical Ventilator 08/14/20 16:00 26 Mechanical Ventilator 100 08/14/20 16:00 97.0 86 25 125/88 (100) 08/14/20 16:00 93 08/14/20 16:00 100 08/14/20 15:30 92 26 125/88 (100) 08/14/20 15:28 88 28 100 08/14/20 15:00 26 Mechanical Ventilator 100 08/14/20 15:00 94 25 125/88 (100) Intake and Output 08/14/20 08/15/20 19:00 07:00 Intake Total 714.11677 ml 699 ml Output Total 539 ml 513 ml Balance 175.05043 ml 186 ml IV Total 234.40345 ml 219 ml Tube Feeding 480 ml 480 ml Output Urine Total 455 ml 360 ml Stool Total 30 ml 100 ml Chest Tube Drainage Total 54 ml 53 ml Objective deferred due to COVID Laboratory Tests 08/15/20 05:09: White Blood Count 15.0H, Red Blood Count 3.06L, Hemoglobin 9.5L, Hematocrit 30.5L, Mean Corpuscular Volume 99, Mean Corpuscular Hemoglobin 31.0, Mean Corpuscular Hemoglobin Concent 31.2L, Red Cell Distribution Width 17.9H, Platelet Count 241, Mean Platelet Volume 7.2, Neutrophils (%) (Auto) , Lymphocytes (%) (Auto) , Monocytes (%) (Auto) , Eosinophils (%) (Auto) , Basophils (%) (Auto) , Differential Total Cells Counted 100, Neutrophils % (Manual) 94H, Lymphocytes % (Manual) 3L, Monocytes % (Manual) 3, Eosinophils % (Manual) 0, Basophils % (Manual) 0, Band Neutrophils 0, Platelet Estimate Adequate, Platelet Morphology Normal, Polychromasia 1+, Hypochromasia 1+, Anisocytosis 1+, Macrocytosis 1+, Sodium Level 147H, Potassium Level 4.1, Chloride Level 106, Carbon Dioxide Level 43*H, Anion Gap -2L, Blood Urea Nitrogen 21H, Creatinine 0.2L, Estimat Glomerular Filtration Rate > 60, Glucose Level 115H, Calcium Level 8.8 Current Medications Medications (Trade) Dose Ordered Sig/Milagro Route PRN Reason Start Time Stop Time Status Last Admin Dose Admin Acetaminophen (Tylenol) 650 mg Q4H PRN RECTAL Mild Pain (Pain Scale 1-3) 07/24/20 18:15 08/23/20 18:14 07/25/20 11:49 Acetaminophen (Tylenol) 650 mg Q6H PRN NG Mild Pain (Pain Scale 1-3) 07/26/20 08:30 08/25/20 08:29 08/09/20 18:15 Acetaminophen (Tylenol) 650 mg Q6H PRN NG Temp >100.5 07/26/20 08:30 08/25/20 08:29 08/13/20 05:06 Chlorhexidine Gluconate (Marycarmen-Hex 2%) 1 applic DAILY@2000 TOPIC 07/20/20 20:00 10/18/20 19:59 08/14/20 19:47 Dextrose (Dextrose 50%) 25 ml Q30M PRN IV Hypoglycemia 07/23/20 13:15 10/21/20 13:14 Dextrose (Dextrose 50%) 50 ml Q30M PRN IV Hypoglycemia 07/23/20 13:15 10/21/20 13:14 08/11/20 04:04 Dextrose/Sodium Chloride 1,000 ml @ 100 mls/hr Q10H PRN IV WHILE PRONING ONLY 07/24/20 17:45 08/23/20 17:44 08/10/20 05:33 Docusate Sodium (Colace) 100 mg EVERY 12 HOURS NG 07/27/20 21:00 08/26/20 20:59 08/15/20 09:04 Famotidine (Pepcid I.v.) 20 mg Q12HR IVP 08/04/20 21:00 09/03/20 20:59 08/15/20 09:04 Fluconazole (Diflucan) 100 mg Q24H NG 08/08/20 20:00 08/15/20 19:59 08/14/20 19:47 Insulin Aspart (NovoLOG) EVERY 6 HOURS SUBQ 07/28/20 00:00 10/21/20 15:59 08/14/20 23:52 Insulin Detemir (Levemir) 26 units EVERY 12 HOURS SUBQ 07/26/20 09:00 10/20/20 08:59 08/15/20 09:36 Levofloxacin (Levaquin) 750 mg DAILY NG 08/13/20 14:00 08/20/20 13:59 08/15/20 09:04 Midazolam HCl 100 mg/Sodium Chloride 200 ml @ 0 mls/hr Q24H IV 08/12/20 18:00 08/19/20 17:59 08/15/20 09:05 Vitamin B Complex (Vitamin B Complex) 1 tab DAILY NG 07/24/20 09:00 10/09/20 08:59 08/15/20 09:04 Assessment/Plan Assessment/Plan acute hypoxemic respiratory failure COVID pneumonia Asthma elevated liver enzymes DNR ARDS with fibrosing phase pneumothorax elevated TG subq emphysema PLAN not improved; still on high o2 and peep CT per surgery imaging reviewed unable to trach at present monitor acid base status respiratory care ID noted DVT prophylaxis prognosis poor overall for meaningful recovery monitor respiratory status for change not safe for trach placement medications/laboratory data/nursing notes/ICU care reviewed in detail note reviewed and edited care discussed with RN and RT ICU time spent >40 minutes Elfego Price MD Aug 15, 2020 14:56
[2020-08-15] MEDS: Acetaminophen 650mg/20.3ml NG PRN (15:15)
--- NOTE | 2020-08-15 15:16 | NUR ---
NURSE NOTES: PRN Tylenol 650mg given via NGT for mild pain 3/10. Will reassess patient later.
--- NOTE | 2020-08-15 15:31 | NUR ---
[employer] Note Completed transfer request form and scanned and e-mailed necessary clinical documents to [facility] transfer [facility]. Confirmed request in sent email folder.
--- NOTE | 2020-08-15 15:36 | NUR ---
NURSE NOTES: Patient vomited a small amount of yellow emesis. Held feeding. Order for Zofran received and noted. Will carry out the order.
--- NOTE | 2020-08-15 15:50 | NUR ---
1200 PT SEEN BY RANDI EDWARDS WITH ORDERS Addendum: 08/15/20 at 1607 by SUSY HENSLEY RN WRONG PATIENT
--- NOTE | 2020-08-15 15:54 | NUR ---
NURSE NOTES: PRN Zofran 4mg IVP given for vomiting. Feeding still held. Will closely monitor patient.
--- NOTE | 2020-08-15 16:03 | NUR ---
1300 PT, SEEN BY RANDI EDWARDS WITH ORDERS HR<130 WITH DIGOXIN 0,25 IVP Addendum: 08/15/20 at 1607 by SUSY HENSLEY RN WRONG PATIENT
--- NOTE | 2020-08-15 17:40 | NUR ---
NURSE NOTES: Cleaned patient for small amount of leaked loose BM from rectal tube. Turned and repositioned patient. Placed patient on cooling blanket to monitor rectal temp. Patient is afebrile. Addendum: 08/15/20 at 1824 by CAROL ALFRED RN RN at 1740 NURSE NOTES: Cleaned patient for small amount of leaked loose BM from rectal tube. Turned and repositioned patient. Placed patient on cooling blanket to monitor rectal temp. Patient is afebrile. 5cc residual noted. No vomiting. BS 74. Resumed tube feeding at 40cc/hr.
--- NOTE | 2020-08-15 19:24 | NUR ---
NURSE HAND-OFF REPORT: Latest Vital Signs: Temperature 99.2 , Pulse 125 , B/P 111 /66 , Respiratory Rate 26 , O2 SAT 99 , Mechanical Ventilator, O2 Flow Rate . Vital Sign Comment: EKG Rhythm: A-fib with RVR Rhythm change?: Yes MD Notified?: No, patient has a history of A-fib and gave PO Cardizem at 1845 that was missed at 1400 due to dialysis. MD Response: Latest Bradley Fall Score: 50 Fall Risk: High Risk Safety Measures: Call light Within Reach, Bed Alarm Zone 1, Side Rails Side Rails x3, Bed position Low and Locked. Fall Precautions: Yellow Socks Yellow Gown Door Sign Patient Fall Education Report given to ELIER Low. Addendum: 08/15/20 at 1932 by CAROL ALFRED RN RN wrong patient.
--- NOTE | 2020-08-15 19:25 | NUR ---
NURSE NOTES: Received report from Radha Toscano, Pt is seen lying in bed in semi- connelly's position. Pt is sedate with score of RASS- 2, pt is stimulated with pain, open eyes spontaneously, with ET tube patent and intact. With NGT on Right nares, residual of 5ml, flushing and patent, with DNAIEL PICC line patent and intact running versed. Pt is edematous both bilateral upper and lower extrimities +3, weeping. Pt has chest tube on Right lower chest intact and patent with low continuos suction noted in chamber, Left anterior thora vent intact and patent. Bed in lowest position, call light within reach. Continue to plan of care.
--- NOTE | 2020-08-15 19:33 | NUR ---
NURSE HAND-OFF REPORT: Latest Vital Signs: Temperature 99.2 , Pulse 125 , B/P 111 /66 , Respiratory Rate 26 , O2 SAT 99 , Mechanical Ventilator, O2 Flow Rate . Vital Sign Comment: EKG Rhythm: Sinus Tachycardia Rhythm change?: N MD Notified?: MD Response: Latest Bradley Fall Score: 50 Fall Risk: High Risk Safety Measures: Call light Within Reach, Bed Alarm Zone 1, Side Rails Side Rails x3, Bed position Low and Locked. Fall Precautions: Yellow Socks Yellow Gown Door Sign Patient Fall Education Report given to ELIER Low.
[2020-08-15] MEDS: Dyna-Hex 2% Top Sol 2oz TOPIC SCH (20:25)
--- NOTE | 2020-08-15 20:38 | NUR ---
NURSE NOTES: Noted BS- 57mg/dl, given d50 prn, made andres made aware of pt condition.
--- NOTE | 2020-08-15 20:53 | NUR ---
NURSE NOTES: Rechecked BS- 154 mg/dl now, pt is still cold clammy.Warming blankets- on. temp 96.1..
--- NOTE | 2020-08-15 22:55 | NUR ---
NURSE NOTES: Pt has no signs of distress, warm blanket on, o2 sat-100%, chest tube intact in low suctioned in suction chamber. Will continue to monitor pt.
[2020-08-16] VITALS (29 sets, daily range): BP systolic 101–138; BP diastolic 58–81
--- NOTE | 2020-08-16 00:14 | NUR ---
NURSE NOTES: Check Chest tube for any leakage, noted patent and intact. Low suction 20 mmhg per ordered.Clamp on bedside. Oral care done, dry scab and old blood noted on left lower lip. O2 sat- 100%. RT on bedside.
--- NOTE | 2020-08-16 01:16 | Cardiology Progress Note ---
Subjective DATE OF SERVICE: Aug 15, 2020 Condition remains critical and prognosis guarded S/P chest tube for PTX He remains on full vent support, on high flow FIO2 - orally intubated. CXR (08/15) small rt PNX; no change bilat infiltrates Objective Last 24 Hour Vital Signs Date Time Temp Pulse Resp B/P (MAP) Pulse Ox O2 Delivery O2 Flow Rate FiO2 08/16/20 01:00 28 Endotracheal Tube 100 08/16/20 00:00 95.6 123 26 109/67 (81) 100 08/16/20 00:00 27 Endotracheal Tube 100 08/16/20 00:00 115 08/16/20 00:00 Mechanical Ventilator 08/15/20 23:19 112 27 100 08/15/20 23:00 27 Endotracheal Tube 100 08/15/20 23:00 115 27 108/67 (81) 100 08/15/20 22:00 117 27 109/51 (70) 99 08/15/20 22:00 26 100 08/15/20 21:00 96.1 114 26 107/73 (84) 100 08/15/20 21:00 26 Endotracheal Tube 100 08/15/20 20:00 115 24 126/77 (93) 100 08/15/20 20:00 132 08/15/20 20:00 Mechanical Ventilator 08/15/20 20:00 26 Endotracheal Tube 100 08/15/20 20:00 100 08/15/20 19:00 130 27 100 08/15/20 19:00 26 Mechanical Ventilator 100 08/15/20 19:00 125 26 111/66 (81) 08/15/20 18:00 26 Mechanical Ventilator 100 08/15/20 18:00 128 26 115/72 (86) 99 08/15/20 17:00 140 27 98/75 (83) 95 08/15/20 17:00 25 Mechanical Ventilator 100 08/15/20 16:00 99.2 143 26 120/79 (93) 92 08/15/20 16:00 100 08/15/20 16:00 30 Mechanical Ventilator 100 08/15/20 16:00 Mechanical Ventilator 08/15/20 15:26 140 08/15/20 15:00 30 Mechanical Ventilator 40 08/15/20 15:00 143 28 145/83 (103) 91 08/15/20 14:10 140 30 100 08/15/20 14:00 29 Mechanical Ventilator 100 08/15/20 14:00 133 31 138/82 (100) 91 08/15/20 13:00 121 30 147/77 (100) 92 08/15/20 13:00 29 Mechanical Ventilator 100 08/15/20 12:24 100 08/15/20 12:00 Mechanical Ventilator 08/15/20 12:00 29 Mechanical Ventilator 100 08/15/20 12:00 97.5 127 29 137/79 (98) 89 08/15/20 11:19 126 08/15/20 11:00 115 27 139/80 (99) 92 08/15/20 11:00 27 Mechanical Ventilator 100 08/15/20 10:00 27 Mechanical Ventilator 100 08/15/20 10:00 109 25 135/75 (95) 99 08/15/20 09:05 25 Mechanical Ventilator 100 08/15/20 09:00 24 Mechanical Ventilator 100 08/15/20 09:00 96 23 119/66 (83) 100 08/15/20 09:00 100 08/15/20 08:06 92 08/15/20 08:00 97.3 89 21 117/72 (87) 100 08/15/20 08:00 23 Mechanical Ventilator 08/15/20 08:00 100 08/15/20 08:00 Mechanical Ventilator 08/15/20 07:00 89 20 122/74 (90) 100 08/15/20 07:00 20 Mechanical Ventilator 100 08/15/20 07:00 90 28 100 08/15/20 06:30 87 20 121/80 (94) 100 08/15/20 06:00 83 22 133/83 (100) 100 08/15/20 06:00 22 Mechanical Ventilator 100 08/15/20 05:30 88 22 130/78 (95) 100 08/15/20 05:00 25 Mechanical Ventilator 100 08/15/20 05:00 87 25 128/89 (102) 98 08/15/20 04:30 90 20 130/86 (101) 100 08/15/20 04:00 97.0 92 25 130/89 (103) 100 08/15/20 04:00 Mechanical Ventilator 08/15/20 04:00 89 08/15/20 04:00 25 Mechanical Ventilator 100 08/15/20 04:00 100 08/15/20 03:30 88 25 134/95 (108) 100 08/15/20 03:00 88 26 136/92 (107) 99 08/15/20 03:00 26 Mechanical Ventilator 100 08/15/20 02:51 84 26 100 08/15/20 02:30 87 25 137/87 (104) 98 08/15/20 02:00 20 Mechanical Ventilator 100 08/15/20 02:00 91 20 139/89 (106) 99 08/15/20 01:30 92 22 134/93 (107) 99 HEENT: Orally intubated, Mechanically Ventilated, Thin secretions ET Tube RHYTHM: SB LUNGS: bilateral rhonchi, other - right chest tube CARDIAC: regular rhythm, normal S1 and S2, bradycardia ABDOMEN: normal bowel sounds, non tender, soft EXTREMITIES: normal range of motion, non-tender Laboratory Tests Test 08/15/20 05:09 White Blood Count 15.0 K/UL (4.8-10.8) H Red Blood Count 3.06 M/UL (4.70-6.10) L Hemoglobin 9.5 G/DL (14.2-18.0) L Hematocrit 30.5 % (42.0-52.0) L Mean Corpuscular Volume 99 FL (80-99) Mean Corpuscular Hemoglobin 31.0 PG (27.0-31.0) Mean Corpuscular Hemoglobin Concent 31.2 G/DL (32.0-36.0) L Red Cell Distribution Width 17.9 % (11.6-14.8) H Platelet Count 241 K/UL (150-450) Mean Platelet Volume 7.2 FL (6.5-10.1) Neutrophils (%) (Auto) % (45.0-75.0) Lymphocytes (%) (Auto) % (20.0-45.0) Monocytes (%) (Auto) % (1.0-10.0) Eosinophils (%) (Auto) % (0.0-3.0) Basophils (%) (Auto) % (0.0-2.0) Differential Total Cells Counted 100 Neutrophils % (Manual) 94 % (45-75) H Lymphocytes % (Manual) 3 % (20-45) L Monocytes % (Manual) 3 % (1-10) Eosinophils % (Manual) 0 % (0-3) Basophils % (Manual) 0 % (0-2) Band Neutrophils 0 % (0-8) Platelet Estimate Adequate Platelet Morphology Normal Polychromasia 1+ Hypochromasia 1+ Anisocytosis 1+ Macrocytosis 1+ Sodium Level 147 MMOL/L (136-145) H Potassium Level 4.1 MMOL/L (3.5-5.1) Chloride Level 106 MMOL/L (98-107) Carbon Dioxide Level 43 MMOL/L (21-32) *H Anion Gap -2 mmol/L (5-15) L Blood Urea Nitrogen 21 mg/dL (7-18) H Creatinine 0.2 MG/DL (0.55-1.30) L Estimat Glomerular Filtration Rate > 60 mL/min (>60) Glucose Level 115 MG/DL (74-106) H Calcium Level 8.8 MG/DL (8.5-10.1) Assessment/Plan Assessment/Plan Covid 19 PNA Resolving PTX Secondary sinus tachycardia K.pneumonia PNA Acute respiratory failure with severe Hypoxia - slightly improved over past day. Sinus bradycardia resolved Diabetes mellitus with hyperglycemia due to steroids Transaminitis Mod protein/calorie malnutrition Dehydration/hypernatremia CRITICAL & GUARDED Chest tube management Abx per ID Continuous cardiac monitoring Anticoagulation and steroid rx Titrate oxygen as able; prone. Vent settings adjusted by pulmonary; still cannot tolerate less than 100% FIO2. Anti-viral rx Protein suppl Free water replacement Insulin cov'g by SS; levemir dose advanced further. Chuck Swain MD Aug 16, 2020 01:16
--- NOTE | 2020-08-16 01:31 | NUR ---
NURSE NOTES: Seen pt, in comfortable position. Sleeping with no signs of distress. o2 sat- 100%. Will continue to monitor.
--- NOTE | 2020-08-16 02:37 | NUR ---
NURSE NOTES: Oral care done, suctioned secretions in ET tube. O2 sat- 92-94%. Pt is stil -2 RASS.
--- NOTE | 2020-08-16 03:14 | NUR ---
NURSE NOTES: Sponge bath given, Check Chest tube if still intact, right side draining serosanguineous. Noted Dry blood in the lower lip and scab but unable to removed. Will continue to monitor pt.
--- NOTE | 2020-08-16 04:39 | NUR ---
NURSE NOTES: Pt is sleeping, flush NGT, no residual noted. O2 sat- 100%. No facial grimacing noted. Will continue to monitor.
[2020-08-16] MEDS: Midazolam HCl 50mg/10ml vial 100 MG in NS 180 ML IV SCH ×2 (05:16→15:30)
[2020-08-16] MEDS: NovoLOG Insulin Flexpen SUBQ SCH ×4 (05:37→18:00)
--- NOTE | 2020-08-16 05:51 | NUR ---
NURSE NOTES: Pt is still RASS- 2, no signs of pain. No any signs of distress. O2 sat- 100%. Remains critically guarded. Will continue to monitor.
--- NOTE | 2020-08-16 06:12 | NUR ---
NURSE NOTES: Seen by Dr. Cherry, made him aware of episodes of hypoglycemia, NNO at this time.
[2020-08-16 06:59] LABS: HEMATOCRIT 29.5 % (42.0-52.0); HEMOGLOBIN 9.1 G/DL (14.2-18.0); MEAN CORPUSCULAR VOLUME 102 FL (80-99); PLATELET COUNT 170 K/UL (150-450); RED BLOOD COUNT 2.89 M/UL (4.70-6.10); RED CELL DISTRIBUTION WIDTH 19.7 % (11.6-14.8); WHITE BLOOD COUNT 15.8 K/UL (4.8-10.8)
--- NOTE | 2020-08-16 07:15 | NUR ---
NURSE HAND-OFF REPORT: Important Events on Shift: Pt remains critically guarded, Chest tube still intact. Fio2- 100% o2 sat -100%, STAC- 120's- Dr. Swain prev aware Patient Status: critically guarded Diet: TF Pending Orders: None Pending Results/Labs: None Pending MD notification: NOne Latest Vital Signs: Temperature 98.3 , Pulse 124 , B/P 101 /65 , Respiratory Rate 25 , O2 SAT 100 , Endotracheal Tube, O2 Flow Rate . Vital Sign Comment: SInus tachy EKG Rhythm: Sinus Tachycardia Rhythm change?: N MD Notified?: Y -Dr. Diana at bedside for re-intubation MD Response: Latest Bradley Fall Score: 60 Fall Risk: High Risk Safety Measures: Call light Within Reach, Bed Alarm Zone 1, Side Rails Side Rails x3, Bed position Low and Locked. Fall Precautions: Yellow Socks Yellow Gown Door Sign Patient Fall Education Report given to [vamshi Garcia RN/ Iman/ RN].
--- NOTE | 2020-08-16 07:28 | NUR ---
NURSE NOTES: Received report from Princess THAPA.
[2020-08-16 07:34] LABS: ALANINE AMINOTRANSFERASE 107 U/L (12-78); ALBUMIN 1.9 G/DL (3.4-5.0); ALBUMIN/GLOBULIN RATIO 0.6 (1.0-2.7); ALKALINE PHOSPHATASE 133 U/L (46-116); ASPARTATE AMINO TRANSFERASE 96 U/L (15-37); BILIRUBIN,TOTAL 0.6 MG/DL (0.2-1.0); BLOOD UREA NITROGEN 18 mg/dL (7-18); CALCIUM 8.3 MG/DL (8.5-10.1); CHLORIDE 105 MMOL/L (98-107); CREATININE 0.3 MG/DL (0.55-1.30); POTASSIUM 4.2 MMOL/L (3.5-5.1); SODIUM 145 MMOL/L (136-145)
[2020-08-16 08:10] LABS: CARBON DIOXIDE 41 MMOL/L (21-32)
--- NOTE | 2020-08-16 08:55 | NUR ---
NURSE NOTES: Pt. in bed, eyes open. ETT in placed with setting AC26/VT500/Fi O2 at 100%/p16. No grimacing noted. HOB elevated at all times. NGT in placed at left nares running Glucerna 1.2 at 40cc/hr. No n/v noted. Tolerating well. Rectal tube in placed patent/intact draining dark tarry liquid stool. F/C in placed patent/intact draining light yen colored urine. Chest tube at right side in placed patent/intact draining on continous suction with serosanguineous output. Left chest thoravent in placed patent/intact also on continuous suction with minimal output. PICC line at left upper arm in placed patent/intact. Bed in low position, locked. Call light within reach. Will cont. to monitor.
[2020-08-16] MEDS ORDERED: Fluconazole 100mg tab NG SCH (09:00)
[2020-08-16] MEDS: Levemir Flexpen SUBQ SCH ×2 (09:00→20:45)
--- NOTE | 2020-08-16 09:16 | General Progress Note ---
Subjective ROS Limited/Unobtainable: Yes Constitutional: Reports: malaise, weakness HEENT: Reports: no symptoms Cardiovascular: Reports: no symptoms Respiratory: Reports: shortness of breath Gastrointestinal/Abdominal: Reports: difficulty swallowing Genitourinary: Reports: no symptoms Neurologic/Psychiatric: Reports: no symptoms Endocrine: Reports: no symptoms Hematologic/Lymphatic: Reports: no symptoms Allergies: Coded Allergies: No Known Allergies (Unverified , 03/08/17) All Systems: reviewed and negative except above Subjective no change. no fever or chills. intubated and sedated. per staff responsive. on feeds. no bleeding. cxr- improved ptx otherwise not better. Objective Last 24 Hour Vital Signs Date Time Temp Pulse Resp B/P (MAP) Pulse Ox O2 Delivery O2 Flow Rate FiO2 08/16/20 09:00 129 15 135/77 (96) 97 08/16/20 08:00 98.1 126 26 120/62 (81) 97 08/16/20 07:00 124 25 101/65 (77) 100 08/16/20 06:16 24 Endotracheal Tube 100 08/16/20 06:00 121 23 118/62 (80) 99 08/16/20 05:16 20 100 08/16/20 05:00 117 24 115/68 (84) 93 08/16/20 05:00 28 100 08/16/20 04:06 124 24 122/64 (83) 93 08/16/20 04:00 Mechanical Ventilator 08/16/20 04:00 28 Endotracheal Tube 100 08/16/20 04:00 123 08/16/20 04:00 100 08/16/20 03:17 128 31 100 08/16/20 03:00 98.3 123 24 125/81 (96) 96 08/16/20 03:00 27 Endotracheal Tube 100 08/16/20 02:00 25 Endotracheal Tube 100 08/16/20 02:00 123 26 124/74 (91) 99 08/16/20 01:00 122 26 120/65 (83) 98 08/16/20 01:00 28 Endotracheal Tube 100 08/16/20 00:00 95.6 123 26 109/67 (81) 100 08/16/20 00:00 27 Endotracheal Tube 100 08/16/20 00:00 115 08/16/20 00:00 Mechanical Ventilator 08/15/20 23:19 112 27 100 08/15/20 23:00 27 Endotracheal Tube 100 08/15/20 23:00 115 27 108/67 (81) 100 08/15/20 22:00 117 27 109/51 (70) 99 08/15/20 22:00 26 100 08/15/20 21:00 96.1 114 26 107/73 (84) 100 08/15/20 21:00 26 Endotracheal Tube 100 08/15/20 20:00 115 24 126/77 (93) 100 08/15/20 20:00 132 08/15/20 20:00 Mechanical Ventilator 08/15/20 20:00 26 Endotracheal Tube 100 08/15/20 20:00 100 08/15/20 19:00 130 27 100 08/15/20 19:00 26 Mechanical Ventilator 100 08/15/20 19:00 125 26 111/66 (81) 08/15/20 18:00 26 Mechanical Ventilator 100 08/15/20 18:00 128 26 115/72 (86) 99 08/15/20 17:00 140 27 98/75 (83) 95 08/15/20 17:00 25 Mechanical Ventilator 100 08/15/20 16:00 99.2 143 26 120/79 (93) 92 08/15/20 16:00 100 08/15/20 16:00 30 Mechanical Ventilator 100 08/15/20 16:00 Mechanical Ventilator 08/15/20 15:26 140 08/15/20 15:00 30 Mechanical Ventilator 40 08/15/20 15:00 143 28 145/83 (103) 91 08/15/20 14:10 140 30 100 08/15/20 14:00 29 Mechanical Ventilator 100 08/15/20 14:00 133 31 138/82 (100) 91 08/15/20 13:00 121 30 147/77 (100) 92 08/15/20 13:00 29 Mechanical Ventilator 100 08/15/20 12:24 100 08/15/20 12:00 Mechanical Ventilator 08/15/20 12:00 29 Mechanical Ventilator 100 08/15/20 12:00 97.5 127 29 137/79 (98) 89 08/15/20 11:19 126 08/15/20 11:00 115 27 139/80 (99) 92 08/15/20 11:00 27 Mechanical Ventilator 100 08/15/20 10:00 27 Mechanical Ventilator 100 08/15/20 10:00 109 25 135/75 (95) 99 Intake and Output 08/15/20 08/16/20 19:00 07:00 Intake Total 720 ml 770 ml Output Total 355 ml 325 ml Balance 365 ml 445 ml Free Water 100 ml 70 ml IV Total 220 ml 220 ml Tube Feeding 320 ml 480 ml Other 80 ml Output Urine Total 255 ml 125 ml Stool Total 25 ml 100 ml Chest Tube Drainage Total 75 ml 100 ml Laboratory Tests 08/15/20 11:53: POC Whole Blood Glucose [Pending] 08/16/20 06:22: White Blood Count 15.8H, Red Blood Count 2.89L, Hemoglobin 9.1L, Hematocrit 29.5L, Mean Corpuscular Volume 102H, Mean Corpuscular Hemoglobin 31.3H, Mean Corpuscular Hemoglobin Concent 30.8L, Red Cell Distribution Width 19.7H, Platelet Count 170, Mean Platelet Volume 7.8, Neutrophils (%) (Auto) , L ymphocytes (%) (Auto) , Monocytes (%) (Auto) , Eosinophils (%) (Auto) , Basophils (%) (Auto) , Neutrophils % (Manual) [Pending], Lymphocytes % (Manual) [Pending], Platelet Estimate [Pending], Platelet Morphology [Pending], Sodium Level 145, Potassium Level 4.2, Chloride Level 105, Carbon Dioxide Level 41*H, Blood Urea Nitrogen 18, Creatinine 0.3L, Estimat Glomerular Filtration Rate > 60, Glucose Level 119H, Calcium Level 8.3L, Total Bilirubin 0.6, Aspartate Amino Transf (AST/SGOT) 96H, Alanine Aminotransferase (ALT/SGPT) 107H, Alkaline Phosphatase 133H, Total Protein 5.3L, Albumin 1.9L, Globulin 3.4, Albumin/Globulin Ratio 0.6L Height (Feet): 5 Height (Inches): 6.00 Weight (Pounds): 209 Objective deferred Assessment/Plan Problem List: (1) Coronavirus infection ICD Codes: B34.2 - Coronavirus infection, unspecified SNOMED: 794372341 (2) Respiratory failure ICD Codes: J96.90 - Respiratory failure, unspecified, unspecified whether with hypoxia or hypercapnia SNOMED: 088380417 (3) Hypercapnia ICD Codes: R06.89 - Other abnormalities of breathing SNOMED: 05309015, 975407607 (4) Hypoxia ICD Codes: R09.02 - Hypoxemia SNOMED: 600874307 (5) Asthma ICD Codes: J45.909 - Unspecified asthma, uncomplicated SNOMED: 564097386, 979871652 (6) Pneumothorax ICD Codes: J93.9 - Pneumothorax, unspecified SNOMED: 22006884 Status: progressing, not improved Assessment/Plan: vent support wean fio2 and peep as able resp care/suctioning as needed monitor for bleeding. off lovenox due to oral bleeding monitor plts- trending up scd iv abx per id replace k remains critical and guarded Rolando Cherry MD Aug 16, 2020 09:16
[2020-08-16] MEDS: Vitamin B Complex Tab NG SCH (09:29)
[2020-08-16] MEDS: Docusate 100mg/10ml Liq NG SCH ×2 (09:29→21:00)
[2020-08-16] MEDS: Levofloxacin 750mg tab NG SCH (09:29)
--- NOTE | 2020-08-16 09:45 | NUR ---
NURSE NOTES: Seen by Dr. Butler and made aware on right chest tube air leaked and SQ bilateral neck area emphysema noted. NNO for now.
--- NOTE | 2020-08-16 10:47 | Infectious Diseases Prog Note ---
Assessment/Plan Assessment/Plan A: 1. COVID-19 pneumonia. 2. History of asthma. 3. Elevated liver function tests. 4. Fatty liver 5. DM with hyperglycemia 6. Leukocytosis worsening 7. Hypoxic respiratory failure 8. Gram negative pneumonia 9. Positive blood culture with CoANS PLAN: 1. Continue Methylprednisone 2. Continue Levaquin & Fluconazole 3.Poor prognosis, become DNR 5. case was D/W RN Subjective ROS Limited/Unobtainable: Yes Constitutional: Denies: fever Allergies: Coded Allergies: No Known Allergies (Unverified , 03/08/17) Objective Last 24 Hour Vital Signs Date Time Temp Pulse Resp B/P (MAP) Pulse Ox O2 Delivery O2 Flow Rate FiO2 08/16/20 09:00 129 15 135/77 (96) 97 08/16/20 08:00 98.1 126 26 120/62 (81) 97 08/16/20 08:00 100 08/16/20 08:00 Mechanical Ventilator 08/16/20 07:00 124 25 101/65 (77) 100 08/16/20 06:16 24 Endotracheal Tube 100 08/16/20 06:00 121 23 118/62 (80) 99 08/16/20 05:16 20 100 08/16/20 05:00 117 24 115/68 (84) 93 08/16/20 05:00 28 100 08/16/20 04:06 124 24 122/64 (83) 93 08/16/20 04:00 Mechanical Ventilator 08/16/20 04:00 28 Endotracheal Tube 100 08/16/20 04:00 123 08/16/20 04:00 100 08/16/20 03:17 128 31 100 08/16/20 03:00 98.3 123 24 125/81 (96) 96 08/16/20 03:00 27 Endotracheal Tube 100 08/16/20 02:00 25 Endotracheal Tube 100 08/16/20 02:00 123 26 124/74 (91) 99 08/16/20 01:00 122 26 120/65 (83) 98 08/16/20 01:00 28 Endotracheal Tube 100 08/16/20 00:00 95.6 123 26 109/67 (81) 100 08/16/20 00:00 27 Endotracheal Tube 100 08/16/20 00:00 115 08/16/20 00:00 Mechanical Ventilator 08/15/20 23:19 112 27 100 08/15/20 23:00 27 Endotracheal Tube 100 08/15/20 23:00 115 27 108/67 (81) 100 08/15/20 22:00 117 27 109/51 (70) 99 08/15/20 22:00 26 100 08/15/20 21:00 96.1 114 26 107/73 (84) 100 08/15/20 21:00 26 Endotracheal Tube 100 08/15/20 20:00 115 24 126/77 (93) 100 08/15/20 20:00 132 08/15/20 20:00 Mechanical Ventilator 08/15/20 20:00 26 Endotracheal Tube 100 08/15/20 20:00 100 08/15/20 19:00 130 27 100 08/15/20 19:00 26 Mechanical Ventilator 100 08/15/20 19:00 125 26 111/66 (81) 08/15/20 18:00 26 Mechanical Ventilator 100 08/15/20 18:00 128 26 115/72 (86) 99 08/15/20 17:00 140 27 98/75 (83) 95 08/15/20 17:00 25 Mechanical Ventilator 100 08/15/20 16:00 99.2 143 26 120/79 (93) 92 08/15/20 16:00 100 08/15/20 16:00 30 Mechanical Ventilator 100 08/15/20 16:00 Mechanical Ventilator 08/15/20 15:26 140 08/15/20 15:00 30 Mechanical Ventilator 40 08/15/20 15:00 143 28 145/83 (103) 91 08/15/20 14:10 140 30 100 08/15/20 14:00 29 Mechanical Ventilator 100 08/15/20 14:00 133 31 138/82 (100) 91 08/15/20 13:00 121 30 147/77 (100) 92 08/15/20 13:00 29 Mechanical Ventilator 100 08/15/20 12:24 100 08/15/20 12:00 Mechanical Ventilator 08/15/20 12:00 29 Mechanical Ventilator 100 08/15/20 12:00 97.5 127 29 137/79 (98) 89 08/15/20 11:19 126 08/15/20 11:00 115 27 139/80 (99) 92 08/15/20 11:00 27 Mechanical Ventilator 100 Height (Feet): 5 Height (Inches): 6.00 Weight (Pounds): 209 HEENT: other - orally intubated Respiratory/Chest: other - on vetilator, HBA3=493%, bilatreal chest tubes Abdomen: soft, non tender, other - NG tube Extremities: no edema Neurologic/Psychiatric: other - sedated Laboratory Tests Test 08/15/20 11:53 08/16/20 06:22 POC Whole Blood Glucose Pending White Blood Count 15.8 K/UL (4.8-10.8) H Red Blood Count 2.89 M/UL (4.70-6.10) L Hemoglobin 9.1 G/DL (14.2-18.0) L Hematocrit 29.5 % (42.0-52.0) L Mean Corpuscular Volume 102 FL (80-99) H Mean Corpuscular Hemoglobin 31.3 PG (27.0-31.0) H Mean Corpuscular Hemoglobin Concent 30.8 G/DL (32.0-36.0) L Red Cell Distribution Width 19.7 % (11.6-14.8) H Platelet Count 170 K/UL (150-450) Mean Platelet Volume 7.8 FL (6.5-10.1) Neutrophils (%) (Auto) % (45.0-75.0) Lymphocytes (%) (Auto) % (20.0-45.0) Monocytes (%) (Auto) % (1.0-10.0) Eosinophils (%) (Auto) % (0.0-3.0) Basophils (%) (Auto) % (0.0-2.0) Differential Total Cells Counted 100 Neutrophils % (Manual) 88 % (45-75) H Lymphocytes % (Manual) 6 % (20-45) L Monocytes % (Manual) 6 % (1-10) Eosinophils % (Manual) 0 % (0-3) Basophils % (Manual) 0 % (0-2) Band Neutrophils 0 % (0-8) Platelet Estimate Adequate Platelet Morphology Normal Polychromasia 1+ Hypochromasia 1+ Anisocytosis 2+ Macrocytosis 1+ Sodium Level 145 MMOL/L (136-145) Potassium Level 4.2 MMOL/L (3.5-5.1) Chloride Level 105 MMOL/L (98-107) Carbon Dioxide Level 41 MMOL/L (21-32) *H Blood Urea Nitrogen 18 mg/dL (7-18) Creatinine 0.3 MG/DL (0.55-1.30) L Estimat Glomerular Filtration Rate > 60 mL/min (>60) Glucose Level 119 MG/DL (74-106) H Calcium Level 8.3 MG/DL (8.5-10.1) L Total Bilirubin 0.6 MG/DL (0.2-1.0) Aspartate Amino Transf (AST/SGOT) 96 U/L (15-37) H Alanine Aminotransferase (ALT/SGPT) 107 U/L (12-78) H Alkaline Phosphatase 133 U/L (46-116) H Total Protein 5.3 G/DL (6.4-8.2) L Albumin 1.9 G/DL (3.4-5.0) L Globulin 3.4 g/dL Albumin/Globulin Ratio 0.6 (1.0-2.7) L Current Medications Medications (Trade) Dose Ordered Sig/Milagro Route PRN Reason Start Time Stop Time Status Last Admin Dose Admin Acetaminophen (Tylenol) 650 mg Q4H PRN RECTAL Mild Pain (Pain Scale 1-3) 07/24/20 18:15 08/23/20 18:14 07/25/20 11:49 Acetaminophen (Tylenol) 650 mg Q6H PRN NG Temp >100.5 07/26/20 08:30 08/25/20 08:29 08/13/20 05:06 Acetaminophen (Tylenol) 650 mg Q6H PRN NG Mild Pain (Pain Scale 1-3) 07/26/20 08:30 08/25/20 08:29 08/15/20 15:15 Chlorhexidine Gluconate (Marycarmen-Hex 2%) 1 applic DAILY@2000 TOPIC 07/20/20 20:00 10/18/20 19:59 08/15/20 20:25 Dextrose (Dextrose 50%) 25 ml Q30M PRN IV Hypoglycemia 07/23/20 13:15 10/21/20 13:14 Dextrose (Dextrose 50%) 50 ml Q30M PRN IV Hypoglycemia 07/23/20 13:15 10/21/20 13:14 08/15/20 20:26 Dextrose/Sodium Chloride 1,000 ml @ 100 mls/hr Q10H PRN IV WHILE PRONING ONLY 07/24/20 17:45 08/23/20 17:44 08/10/20 05:33 Docusate Sodium (Colace) 100 mg EVERY 12 HOURS NG 07/27/20 21:00 08/26/20 20:59 08/16/20 09:29 Famotidine (Pepcid I.v.) 20 mg Q12HR IVP 08/04/20 21:00 09/03/20 20:59 08/16/20 09:29 Fluconazole (Diflucan) 100 mg Q24H NG 08/16/20 09:00 08/16/20 23:59 08/16/20 09:29 Insulin Aspart (NovoLOG) EVERY 6 HOURS SUBQ 07/28/20 00:00 10/21/20 15:59 08/14/20 23:52 Insulin Detemir (Levemir) 26 units EVERY 12 HOURS SUBQ 07/26/20 09:00 10/20/20 08:59 08/15/20 09:36 Levofloxacin (Levaquin) 750 mg DAILY NG 08/13/20 14:00 08/20/20 13:59 08/16/20 09:29 Midazolam HCl 100 mg/Sodium Chloride 200 ml @ 0 mls/hr Q24H IV 08/12/20 18:00 08/19/20 17:59 08/16/20 05:16 Ondansetron HCl (Zofran) 4 mg Q6H PRN IVP Nausea & Vomiting 08/15/20 15:45 09/14/20 15:44 08/15/20 15:54 Vitamin B Complex (Vitamin B Complex) 1 tab DAILY NG 07/24/20 09:00 10/09/20 08:59 08/16/20 09:29 Mian Wing MD Aug 16, 2020 10:47
--- NOTE | 2020-08-16 10:51 | NUR ---
NURSE NOTES: Seen by Dr. Elliot Wing with nno.
--- NOTE | 2020-08-16 11:18 | NUR ---
RD ASSESSMENT & RECOMMENDATIONS SEE CARE ACTIVITY FOR COMPLETE ASSESSMENT DAILY ESTIMATED NEEDS: Needs based on Critical care 72kg abw 22-28 kcals/kg 2687-0653 total kcals 1.2-2 g protein/kg 86-144 g total protein 25-30 mL/kg 5494-3885 total fluid mLs NUTRITION DIAGNOSIS: * Swallowing difficulty R/T respiratory failure as evidenced by pt now orally intubated, on OGT feeds. . * Altered nutrition related lab values r/t hyperglcyemia as evidenced by BG POC glu in the 300's-> now POC 83, 98, 57, 74, 113. CURRENT TF:Glucerna 1.2 @ 40ml/hr ENTERAL NUTRITION RECOMMENDATIONS: Vital 1.2 for critical care and carb control @ goal of 55ml/hr x24 hrs to provide 1320ml, 1584kcal, 99g prot, 1071ml free water - Rec Vital AF 1.2 for critical care and carb control - Initiate @ 35ml/hr x 6hrs, advance as tolerated 10ml/hr q4-6 hrs to goal - Flush per HOB over 30 degrees If pt continues on Glucerna 1.2, rec increasing goal rate to 60ml/hr x 24 hrs to provide 1440ml, 1728kcal, 86g prot, 1159ml free water ADDITIONAL RECOMMENDATIONS: 1) Rec to check HgA1C for eval 2) Monitor BGs closely- w/ episodes of hypoglycemia rec LOWERING Levemir and increase TF rate as above 3) As able, recalibrate bed scale d/t variable daily wts 4) Monitor lytes, replete as needed . .
--- NOTE | 2020-08-16 11:20 | Surgery Progress Note ---
Surgery Progress Note Subjective Procedure Performed left chest tube insertion Additional Comments eyes open wean but responsive today able to understand as seems on exam. right chest tube large air leak left without leak cxr improved Objective Last 24 Hour Vital Signs Date Time Temp Pulse Resp B/P (MAP) Pulse Ox O2 Delivery O2 Flow Rate FiO2 08/16/20 11:00 130 27 127/71 (89) 99 08/16/20 10:00 135 22 134/76 (95) 99 08/16/20 09:00 129 15 135/77 (96) 97 08/16/20 08:00 98.1 126 26 120/62 (81) 97 08/16/20 08:00 100 08/16/20 08:00 Mechanical Ventilator 08/16/20 07:20 126 27 100 08/16/20 07:00 124 25 101/65 (77) 100 08/16/20 06:16 24 Endotracheal Tube 100 08/16/20 06:00 121 23 118/62 (80) 99 08/16/20 05:16 20 100 08/16/20 05:00 117 24 115/68 (84) 93 08/16/20 05:00 28 100 08/16/20 04:06 124 24 122/64 (83) 93 08/16/20 04:00 Mechanical Ventilator 08/16/20 04:00 28 Endotracheal Tube 100 08/16/20 04:00 123 08/16/20 04:00 100 08/16/20 03:17 128 31 100 08/16/20 03:00 98.3 123 24 125/81 (96) 96 08/16/20 03:00 27 Endotracheal Tube 100 08/16/20 02:00 25 Endotracheal Tube 100 08/16/20 02:00 123 26 124/74 (91) 99 08/16/20 01:00 122 26 120/65 (83) 98 08/16/20 01:00 28 Endotracheal Tube 100 08/16/20 00:00 95.6 123 26 109/67 (81) 100 08/16/20 00:00 27 Endotracheal Tube 100 08/16/20 00:00 115 08/16/20 00:00 Mechanical Ventilator 08/15/20 23:19 112 27 100 08/15/20 23:00 27 Endotracheal Tube 100 08/15/20 23:00 115 27 108/67 (81) 100 08/15/20 22:00 117 27 109/51 (70) 99 08/15/20 22:00 26 100 08/15/20 21:00 96.1 114 26 107/73 (84) 100 08/15/20 21:00 26 Endotracheal Tube 100 08/15/20 20:00 115 24 126/77 (93) 100 08/15/20 20:00 132 08/15/20 20:00 Mechanical Ventilator 08/15/20 20:00 26 Endotracheal Tube 100 08/15/20 20:00 100 08/15/20 19:00 130 27 100 08/15/20 19:00 26 Mechanical Ventilator 100 08/15/20 19:00 125 26 111/66 (81) 08/15/20 18:00 26 Mechanical Ventilator 100 08/15/20 18:00 128 26 115/72 (86) 99 08/15/20 17:00 140 27 98/75 (83) 95 08/15/20 17:00 25 Mechanical Ventilator 100 08/15/20 16:00 99.2 143 26 120/79 (93) 92 08/15/20 16:00 100 08/15/20 16:00 30 Mechanical Ventilator 100 08/15/20 16:00 Mechanical Ventilator 08/15/20 15:26 140 08/15/20 15:00 30 Mechanical Ventilator 40 08/15/20 15:00 143 28 145/83 (103) 91 08/15/20 14:10 140 30 100 08/15/20 14:00 29 Mechanical Ventilator 100 08/15/20 14:00 133 31 138/82 (100) 91 08/15/20 13:00 121 30 147/77 (100) 92 08/15/20 13:00 29 Mechanical Ventilator 100 08/15/20 12:24 100 08/15/20 12:00 Mechanical Ventilator 08/15/20 12:00 29 Mechanical Ventilator 100 08/15/20 12:00 97.5 127 29 137/79 (98) 89 08/15/20 11:19 126 I&O Intake and Output 08/15/20 08/16/20 19:00 07:00 Intake Total 720 ml 770 ml Output Total 355 ml 325 ml Balance 365 ml 445 ml Free Water 100 ml 70 ml IV Total 220 ml 220 ml Tube Feeding 320 ml 480 ml Other 80 ml Output Urine Total 255 ml 125 ml Stool Total 25 ml 100 ml Chest Tube Drainage Total 75 ml 100 ml Dressing: saturated Drains: other Cardiovascular: RSR Respiratory: decreased breath sounds Abdomen: soft, non-tender, present bowel sounds Extremities: no tenderness, no cyanosis Laboratory Tests Test 08/15/20 11:53 08/16/20 06:22 POC Whole Blood Glucose Pending White Blood Count 15.8 K/UL (4.8-10.8) H Red Blood Count 2.89 M/UL (4.70-6.10) L Hemoglobin 9.1 G/DL (14.2-18.0) L Hematocrit 29.5 % (42.0-52.0) L Mean Corpuscular Volume 102 FL (80-99) H Mean Corpuscular Hemoglobin 31.3 PG (27.0-31.0) H Mean Corpuscular Hemoglobin Concent 30.8 G/DL (32.0-36.0) L Red Cell Distribution Width 19.7 % (11.6-14.8) H Platelet Count 170 K/UL (150-450) Mean Platelet Volume 7.8 FL (6.5-10.1) Neutrophils (%) (Auto) % (45.0-75.0) Lymphocytes (%) (Auto) % (20.0-45.0) Monocytes (%) (Auto) % (1.0-10.0) Eosinophils (%) (Auto) % (0.0-3.0) Basophils (%) (Auto) % (0.0-2.0) Differential Total Cells Counted 100 Neutrophils % (Manual) 88 % (45-75) H Lymphocytes % (Manual) 6 % (20-45) L Monocytes % (Manual) 6 % (1-10) Eosinophils % (Manual) 0 % (0-3) Basophils % (Manual) 0 % (0-2) Band Neutrophils 0 % (0-8) Platelet Estimate Adequate Platelet Morphology Normal Polychromasia 1+ Hypochromasia 1+ Anisocytosis 2+ Macrocytosis 1+ Sodium Level 145 MMOL/L (136-145) Potassium Level 4.2 MMOL/L (3.5-5.1) Chloride Level 105 MMOL/L (98-107) Carbon Dioxide Level 41 MMOL/L (21-32) *H Blood Urea Nitrogen 18 mg/dL (7-18) Creatinine 0.3 MG/DL (0.55-1.30) L Estimat Glomerular Filtration Rate > 60 mL/min (>60) Glucose Level 119 MG/DL (74-106) H Calcium Level 8.3 MG/DL (8.5-10.1) L Total Bilirubin 0.6 MG/DL (0.2-1.0) Aspartate Amino Transf (AST/SGOT) 96 U/L (15-37) H Alanine Aminotransferase (ALT/SGPT) 107 U/L (12-78) H Alkaline Phosphatase 133 U/L (46-116) H Total Protein 5.3 G/DL (6.4-8.2) L Albumin 1.9 G/DL (3.4-5.0) L Globulin 3.4 g/dL Albumin/Globulin Ratio 0.6 (1.0-2.7) L Plan Problems: (1) Pneumothorax Assessment & Plan: 30M covid on vent peep 16 fi02 100 right ptx s/p right chest tube ett complication replaced 07/01 chest tube vac replaced this AM as well given malfunction high risk low tv cxr noted ill appearing tube and lines checked will need to monitor closely unable to wean vent at this time cont current care plan right chest tube with large air leak persistent left side okay without leak massive subq emphysema likely from right leaking Right pneumothorax is slightly increased from the prior exam, still small. Right chest tube remains in place. Stable satisfactory position of endotracheal and orogastric tubes. Left arm PICC remain stable. Previously demonstrated pneumomediastinum is not definitely evident currently. There is marked improvement of previously demonstrated right supraclavicular subcutaneous emphysema, with mild residual. Bilateral infiltrates remain worsening prognosis guarded chest tube stable but leak with high peep bilateral chest tubes placed now bilateral ptx Chest vent catheter remains in place on the left. Previously demonstrated left pneumothorax has improved considerably, with some residual primarily at the left lung base. Right chest tube remains in place. Small right apical pneumothorax is unchanged. Bilateral subcutaneous emphysema is slightly worse. The endotracheal and orogastric tube positions are stable and satisfactory. Left arm PICC is again demonstrated. The heart size is normal. Bilateral infiltrates are unchanged Impression: Over 2 days, interim marked improvement of previously demonstrated left pneumothorax, now small Unchanged small right apical pneumothorax Unchanged bilateral infiltrates (2) Respiratory failure (3) Coronavirus infection (4) Diabetes (5) Hypercapnia (6) Hypoxia (7) Asthma (8) HTN (hypertension) (9) Obesity (BMI 30-39.9) (10) Acute respiratory distress syndrome (ARDS) due to 2019-nCoV (11) Acute hypoxemic respiratory failure due to COVID-19 (12) Bradycardia (13) Laceration Mulugeta Butler Aug 16, 2020 11:20
--- NOTE | 2020-08-16 11:40 | NUR ---
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 He stated that their team determined that he had been intubated for too long.
--- NOTE | 2020-08-16 12:04 | Pulmonology Progress Note ---
Subjective ROS Limited/Unobtainable: Yes Constitutional: Denies: fever Gastrointestinal/Abdominal: Denies: nausea, vomiting, diarrhea Musculoskeletal: Reports: pain Allergies: Coded Allergies: No Known Allergies (Unverified , 03/08/17) All Systems: reviewed and negative except above Subjective ct in place remains on high oxygen and PEEP reduced and patient desaturated on vent full code d/w nursing sedated tachycardia Objective Last 24 Hour Vital Signs Date Time Temp Pulse Resp B/P (MAP) Pulse Ox O2 Delivery O2 Flow Rate FiO2 08/16/20 11:00 130 27 127/71 (89) 99 08/16/20 10:00 135 22 134/76 (95) 99 08/16/20 09:00 129 15 135/77 (96) 97 08/16/20 08:08 126 08/16/20 08:00 98.1 126 26 120/62 (81) 97 08/16/20 08:00 100 08/16/20 08:00 Mechanical Ventilator 08/16/20 07:20 126 27 100 08/16/20 07:00 124 25 101/65 (77) 100 08/16/20 06:16 24 Endotracheal Tube 100 08/16/20 06:00 121 23 118/62 (80) 99 08/16/20 05:16 20 100 08/16/20 05:00 117 24 115/68 (84) 93 08/16/20 05:00 28 100 08/16/20 04:06 124 24 122/64 (83) 93 08/16/20 04:00 Mechanical Ventilator 08/16/20 04:00 28 Endotracheal Tube 100 08/16/20 04:00 123 08/16/20 04:00 100 08/16/20 03:17 128 31 100 08/16/20 03:00 98.3 123 24 125/81 (96) 96 08/16/20 03:00 27 Endotracheal Tube 100 08/16/20 02:00 25 Endotracheal Tube 100 08/16/20 02:00 123 26 124/74 (91) 99 08/16/20 01:00 122 26 120/65 (83) 98 08/16/20 01:00 28 Endotracheal Tube 100 08/16/20 00:00 95.6 123 26 109/67 (81) 100 08/16/20 00:00 27 Endotracheal Tube 100 08/16/20 00:00 115 08/16/20 00:00 Mechanical Ventilator 08/15/20 23:19 112 27 100 08/15/20 23:00 27 Endotracheal Tube 100 08/15/20 23:00 115 27 108/67 (81) 100 08/15/20 22:00 117 27 109/51 (70) 99 08/15/20 22:00 26 100 08/15/20 21:00 96.1 114 26 107/73 (84) 100 08/15/20 21:00 26 Endotracheal Tube 100 08/15/20 20:00 115 24 126/77 (93) 100 08/15/20 20:00 132 08/15/20 20:00 Mechanical Ventilator 08/15/20 20:00 26 Endotracheal Tube 100 08/15/20 20:00 100 08/15/20 19:00 130 27 100 08/15/20 19:00 26 Mechanical Ventilator 100 08/15/20 19:00 125 26 111/66 (81) 08/15/20 18:00 26 Mechanical Ventilator 100 08/15/20 18:00 128 26 115/72 (86) 99 08/15/20 17:00 140 27 98/75 (83) 95 08/15/20 17:00 25 Mechanical Ventilator 100 08/15/20 16:00 99.2 143 26 120/79 (93) 92 08/15/20 16:00 100 08/15/20 16:00 30 Mechanical Ventilator 100 08/15/20 16:00 Mechanical Ventilator 08/15/20 15:26 140 08/15/20 15:00 30 Mechanical Ventilator 40 08/15/20 15:00 143 28 145/83 (103) 91 08/15/20 14:10 140 30 100 08/15/20 14:00 29 Mechanical Ventilator 100 08/15/20 14:00 133 31 138/82 (100) 91 08/15/20 13:00 121 30 147/77 (100) 92 08/15/20 13:00 29 Mechanical Ventilator 100 08/15/20 12:24 100 Intake and Output 08/15/20 08/16/20 19:00 07:00 Intake Total 720 ml 770 ml Output Total 355 ml 325 ml Balance 365 ml 445 ml Free Water 100 ml 70 ml IV Total 220 ml 220 ml Tube Feeding 320 ml 480 ml Other 80 ml Output Urine Total 255 ml 125 ml Stool Total 25 ml 100 ml Chest Tube Drainage Total 75 ml 100 ml Objective deferred due to COVID Laboratory Tests 08/16/20 06:22: White Blood Count 15.8H, Red Blood Count 2.89L, Hemoglobin 9.1L, Hematocrit 29.5L, Mean Corpuscular Volume 102H, Mean Corpuscular Hemoglobin 31.3H, Mean Corpuscular Hemoglobin Concent 30.8L, Red Cell Distribution Width 19.7H, Platelet Count 170, Mean Platelet Volume 7.8, Neutrophils (%) (Auto) , Lymphocytes (%) (Auto) , Monocytes (%) (Auto) , Eosinophils (%) (Auto) , Basophils (%) (Auto) , Differential Total Cells Counted 100, Neutrophils % (Manual) 88H, Lymphocytes % (Manual) 6L, Monocytes % (Manual) 6, Eosinophils % (Manual) 0, Basophils % (Manual) 0, Band Neutrophils 0, Platelet Estimate Adequate, Platelet Morphology Normal, Polychromasia 1+, Hypochromasia 1+, Anisocytosis 2+, Macrocytosis 1+, Sodium Level 145, Potassium Level 4.2, Chloride Level 105, Carbon Dioxide Level 41*H, Blood Urea Nitrogen 18, Creatinine 0.3L, Estimat Glomerular Filtration Rate > 60, Glucose Level 119H, Calcium Level 8.3L, Total Bilirubin 0.6, Aspartate Amino Transf (AST/SGOT) 96H, Alanine Aminotransferase (ALT/SGPT) 107H, Alkaline Phosphatase 133H, Total Protein 5.3L, Albumin 1.9L, Globulin 3.4, Albumin/Globulin Ratio 0.6L Current Medications Medications (Trade) Dose Ordered Sig/Milagor Route PRN Reason Start Time Stop Time Status Last Admin Dose Admin Acetaminophen (Tylenol) 650 mg Q4H PRN RECTAL Mild Pain (Pain Scale 1-3) 07/24/20 18:15 08/23/20 18:14 07/25/20 11:49 Acetaminophen (Tylenol) 650 mg Q6H PRN NG Temp >100.5 07/26/20 08:30 08/25/20 08:29 08/13/20 05:06 Acetaminophen (Tylenol) 650 mg Q6H PRN NG Mild Pain (Pain Scale 1-3) 07/26/20 08:30 08/25/20 08:29 08/15/20 15:15 Chlorhexidine Gluconate (Marycarmen-Hex 2%) 1 applic DAILY@2000 TOPIC 07/20/20 20:00 10/18/20 19:59 08/15/20 20:25 Dextrose (Dextrose 50%) 25 ml Q30M PRN IV Hypoglycemia 07/23/20 13:15 10/21/20 13:14 Dextrose (Dextrose 50%) 50 ml Q30M PRN IV Hypoglycemia 07/23/20 13:15 10/21/20 13:14 08/15/20 20:26 Dextrose/Sodium Chloride 1,000 ml @ 100 mls/hr Q10H PRN IV WHILE PRONING ONLY 07/24/20 17:45 08/23/20 17:44 08/10/20 05:33 Docusate Sodium (Colace) 100 mg EVERY 12 HOURS NG 07/27/20 21:00 08/26/20 20:59 08/16/20 09:29 Famotidine (Pepcid I.v.) 20 mg Q12HR IVP 08/04/20 21:00 09/03/20 20:59 08/16/20 09:29 Fluconazole (Diflucan) 100 mg Q24H NG 08/16/20 09:00 08/16/20 23:59 08/16/20 09:29 Insulin Aspart (NovoLOG) EVERY 6 HOURS SUBQ 07/28/20 00:00 10/21/20 15:59 08/14/20 23:52 Insulin Detemir (Levemir) 26 units EVERY 12 HOURS SUBQ 07/26/20 09:00 10/20/20 08:59 08/15/20 09:36 Levofloxacin (Levaquin) 750 mg DAILY NG 08/13/20 14:00 08/20/20 13:59 08/16/20 09:29 Midazolam HCl 100 mg/Sodium Chloride 200 ml @ 0 mls/hr Q24H IV 08/12/20 18:00 08/19/20 17:59 08/16/20 05:16 Ondansetron HCl (Zofran) 4 mg Q6H PRN IVP Nausea & Vomiting 08/15/20 15:45 09/14/20 15:44 08/15/20 15:54 Vitamin B Complex (Vitamin B Complex) 1 tab DAILY NG 07/24/20 09:00 10/09/20 08:59 08/16/20 09:29 Assessment/Plan Assessment/Plan acute hypoxemic respiratory failure COVID pneumonia Asthma elevated liver enzymes DNR ARDS with fibrosing phase pneumothorax elevated TG subq emphysema PLAN not improved; still on high o2 and peep/ sats >90 CT per surgery / monitor sq emphysema imaging PRN unable to trach at present monitor acid base status respiratory care ID noted DVT prophylaxis prognosis poor overall for meaningful recovery monitor respiratory status for change not safe for trach placement medications/laboratory data/nursing notes/ICU care reviewed in detail note reviewed and edited care discussed with RN and RT ICU time spent >40 minutes Elfego Price MD Aug 16, 2020 12:04
--- NOTE | 2020-08-16 12:19 | NUR ---
NURSE NOTES: Accu-check done result WNL 110. Pt. eyes open when touching and response to voice when called his name. RASS -2. No s/sx of distress. No grimacing noted.
--- NOTE | 2020-08-16 14:11 | NUR ---
NURSE NOTES: Oral care rendered. Suctioned the pt. No n/v noted. NGT tolerating well.
--- NOTE | 2020-08-16 14:39 | NUR ---
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
--- NOTE | 2020-08-16 15:57 | NUR ---
NURSE NOTES: Turned and repositioned. Right chest tube in placed and left upper chest thoravent in placed patent/intact. No s/sx of distress.
--- NOTE | 2020-08-16 16:40 | NUR ---
NURSE NOTES: Remain stable. V/S WNL. Pt. able to nod his head when asked. Pt. able to moved hand when asked by RN.
--- NOTE | 2020-08-16 19:09 | NUR ---
NURSE HAND-OFF REPORT: Remain stable. Still pending for transfer to [facility] for ECMO. Latest Vital Signs: Temperature 97.1 , Pulse 122 , B/P 120 /68 , Respiratory Rate 27 , O2 SAT 94 , Endotracheal Tube, O2 Flow Rate Vital Sign Comment: EKG Rhythm: Sinus Tachycardia Rhythm change?: N MD Notified?: MD Response: Latest Bradley Fall Score: 60 Fall Risk: High Risk Safety Measures: Call light Within Reach, Bed Alarm Zone 1, Side Rails Side Rails x3, Bed position Low and Locked. Fall Precautions: Yellow Socks Yellow Gown Door Sign Patient Fall Education Report given to Carola THAPA.
--- NOTE | 2020-08-16 19:30 | NUR ---
NURSE NOTES: Received report from ELIER Valerio. Pt is sedated on the bed and RASS-2. Pt has ETT and orally intubated. Vent dependent and setting with AC: 26, T: 500, P:16, FiO2 100% and SaO2 95% noted. Given suction and oral care. Pt has NGT and on running with Glucerna 1.2 @ 40cc/hr. checked NGT placement. No residual noted. Pt has Biswas cath and Rectal tube and patent and drainage well. Pt has Rt side chest tube and Lt upper chest Thora Vent and connected with low continuous suction. Pt has Lt. upper arm PICC line and dressing is clean and dry and on running with Versed @ 10mg/hr. No fever noted with cooling measure. Placed fall precaution. Noted proper isolation for COVID-19. Will continue to care plan.
[2020-08-16] MEDS: Dyna-Hex 2% Top Sol 2oz TOPIC SCH (19:55)
--- NOTE | 2020-08-16 22:00 | NUR ---
NURSE NOTES: SaO2 94 % with current Vent setting. Given suction and oral care. Turn and reposition. Rt and Lt chest tube connected with wall suction. According to previous nurse, Pt's Rt. chest tube site noted air leak and Dr. Larios awarded. Placed fall precaution. Will continue to monitor nay change of condition.
[2020-08-17] VITALS (31 sets, daily range): BP systolic 102–159; BP diastolic 50–80
--- NOTE | 2020-08-17 | NUR ---
NURSE NOTES: Pt is sedated on the bed and RASS score -2. SaO2 95% with current Vent setting. Noted BT: 98.0F via Rectal. Tolerated well with NGT feeding. On running with Versed drip @ 10mg/hr. Rt and Lt chest tube connected with suction securely. Given mouth care. Placed fall precaution. Will continue to monitor any change of condition.
[2020-08-17] MEDS: NovoLOG Insulin Flexpen SUBQ SCH ×5 (00:13→23:20)
--- NOTE | 2020-08-17 00:19 | Cardiology Progress Note ---
Subjective DATE OF SERVICE: Aug 16, 2020 Condition remains critical and prognosis guarded He remains on full vent support, on high flow FIO2 - orally intubated. CXR (08/15) small rt PNX; no change bilat infiltrates Objective Last 24 Hour Vital Signs Date Time Temp Pulse Resp B/P (MAP) Pulse Ox O2 Delivery O2 Flow Rate FiO2 08/16/20 23:26 133 27 100 08/16/20 23:00 132 25 134/68 (90) 93 08/16/20 22:30 127 19 134/68 (90) 97 08/16/20 22:16 17 Mechanical Ventilator 100 08/16/20 22:15 128 21 95 08/16/20 22:00 126 17 135/65 (88) 94 08/16/20 21:30 117 28 115/60 (78) 97 08/16/20 21:16 26 Mechanical Ventilator 100 08/16/20 21:00 114 26 116/58 (77) 98 08/16/20 20:30 112 24 117/65 (82) 98 08/16/20 20:16 22 Mechanical Ventilator 100 08/16/20 20:00 123 08/16/20 20:00 100 08/16/20 20:00 97.0 114 22 119/67 (84) 96 08/16/20 20:00 Mechanical Ventilator 08/16/20 19:30 113 24 115/64 (81) 97 08/16/20 19:26 119 30 100 08/16/20 19:16 22 Mechanical Ventilator 100 08/16/20 19:00 116 22 127/68 (87) 95 08/16/20 18:00 122 27 120/68 (85) 94 08/16/20 18:00 122 27 120/68 (85) 94 08/16/20 17:16 28 Endotracheal Tube 100 08/16/20 17:00 125 26 122/73 (89) 96 08/16/20 16:16 26 Endotracheal Tube 100 08/16/20 16:00 100 08/16/20 16:00 126 08/16/20 16:00 97.1 116 26 124/67 (86) 99 08/16/20 16:00 Mechanical Ventilator 08/16/20 15:30 27 Mechanical Ventilator 100 08/16/20 15:20 117 28 100 08/16/20 15:16 28 Endotracheal Tube 100 08/16/20 15:00 113 26 112/68 (83) 100 08/16/20 14:16 25 Endotracheal Tube 100 08/16/20 14:00 118 27 128/74 (92) 100 08/16/20 13:16 26 Endotracheal Tube 100 08/16/20 13:00 121 27 114/70 (85) 100 08/16/20 12:16 26 Endotracheal Tube 100 08/16/20 12:00 Mechanical Ventilator 08/16/20 12:00 97.0 129 24 131/75 (93) 96 08/16/20 12:00 100 08/16/20 11:56 125 08/16/20 11:20 126 27 100 08/16/20 11:16 28 Endotracheal Tube 100 08/16/20 11:00 130 27 127/71 (89) 99 08/16/20 10:16 27 Endotracheal Tube 100 08/16/20 10:00 135 22 134/76 (95) 99 08/16/20 09:16 26 Endotracheal Tube 100 08/16/20 09:00 129 15 135/77 (96) 97 08/16/20 08:16 25 Endotracheal Tube 100 08/16/20 08:08 126 08/16/20 08:00 98.1 126 26 120/62 (81) 97 08/16/20 08:00 100 08/16/20 08:00 Mechanical Ventilator 08/16/20 07:20 126 27 100 08/16/20 07:16 25 Endotracheal Tube 100 08/16/20 07:00 124 25 101/65 (77) 100 08/16/20 06:16 24 Endotracheal Tube 100 08/16/20 06:00 121 23 118/62 (80) 99 08/16/20 05:16 20 100 08/16/20 05:00 117 24 115/68 (84) 93 08/16/20 05:00 28 100 08/16/20 04:06 124 24 122/64 (83) 93 08/16/20 04:00 Mechanical Ventilator 08/16/20 04:00 28 Endotracheal Tube 100 08/16/20 04:00 123 08/16/20 04:00 100 08/16/20 03:17 128 31 100 08/16/20 03:00 98.3 123 24 125/81 (96) 96 08/16/20 03:00 27 Endotracheal Tube 100 08/16/20 02:00 25 Endotracheal Tube 100 08/16/20 02:00 123 26 124/74 (91) 99 08/16/20 01:00 122 26 120/65 (83) 98 08/16/20 01:00 28 Endotracheal Tube 100 HEENT: Orally intubated, Mechanically Ventilated, Thin secretions ET Tube RHYTHM: SB LUNGS: bilateral rhonchi, other - right chest tube CARDIAC: regular rhythm, normal S1 and S2, bradycardia ABDOMEN: normal bowel sounds, non tender, soft EXTREMITIES: normal range of motion, non-tender Laboratory Tests Test 08/16/20 06:22 White Blood Count 15.8 K/UL (4.8-10.8) H Red Blood Count 2.89 M/UL (4.70-6.10) L Hemoglobin 9.1 G/DL (14.2-18.0) L Hematocrit 29.5 % (42.0-52.0) L Mean Corpuscular Volume 102 FL (80-99) H Mean Corpuscular Hemoglobin 31.3 PG (27.0-31.0) H Mean Corpuscular Hemoglobin Concent 30.8 G/DL (32.0-36.0) L Red Cell Distribution Width 19.7 % (11.6-14.8) H Platelet Count 170 K/UL (150-450) Mean Platelet Volume 7.8 FL (6.5-10.1) Neutrophils (%) (Auto) % (45.0-75.0) Lymphocytes (%) (Auto) % (20.0-45.0) Monocytes (%) (Auto) % (1.0-10.0) Eosinophils (%) (Auto) % (0.0-3.0) Basophils (%) (Auto) % (0.0-2.0) Differential Total Cells Counted 100 Neutrophils % (Manual) 88 % (45-75) H Lymphocytes % (Manual) 6 % (20-45) L Monocytes % (Manual) 6 % (1-10) Eosinophils % (Manual) 0 % (0-3) Basophils % (Manual) 0 % (0-2) Band Neutrophils 0 % (0-8) Platelet Estimate Adequate Platelet Morphology Normal Polychromasia 1+ Hypochromasia 1+ Anisocytosis 2+ Macrocytosis 1+ Sodium Level 145 MMOL/L (136-145) Potassium Level 4.2 MMOL/L (3.5-5.1) Chloride Level 105 MMOL/L (98-107) Carbon Dioxide Level 41 MMOL/L (21-32) *H Blood Urea Nitrogen 18 mg/dL (7-18) Creatinine 0.3 MG/DL (0.55-1.30) L Estimat Glomerular Filtration Rate > 60 mL/min (>60) Glucose Level 119 MG/DL (74-106) H Calcium Level 8.3 MG/DL (8.5-10.1) L Total Bilirubin 0.6 MG/DL (0.2-1.0) Aspartate Amino Transf (AST/SGOT) 96 U/L (15-37) H Alanine Aminotransferase (ALT/SGPT) 107 U/L (12-78) H Alkaline Phosphatase 133 U/L (46-116) H Total Protein 5.3 G/DL (6.4-8.2) L Albumin 1.9 G/DL (3.4-5.0) L Globulin 3.4 g/dL Albumin/Globulin Ratio 0.6 (1.0-2.7) L Assessment/Plan Assessment/Plan Covid 19 PNA Resolving PTX Secondary sinus tachycardia K.pneumonia PNA Acute respiratory failure with severe Hypoxia - slightly improved over past day. Diabetes mellitus with hyperglycemia due to steroids Transaminitis Mod protein/calorie malnutrition Dehydration/hypernatremia resolving CRITICAL & GUARDED Abx per ID Continuous cardiac monitoring Anticoagulation and steroid rx Titrate oxygen as able; prone. Vent settings adjusted by pulmonary; still cannot tolerate less than 100% FIO2. Anti-viral rx Protein suppl Free water replacement as needed Check BNP; consider diuresis. Insulin cov'g by SS; levemir dose advanced further. Chuck Swain MD Aug 17, 2020 00:19
[2020-08-17] MEDS: Midazolam HCl 50mg/10ml vial 100 MG in NS 180 ML IV SCH ×3 (01:17→21:23)
--- NOTE | 2020-08-17 02:00 | NUR ---
NURSE NOTES: SaO2 94% with current Vent setting. Given suction and mouth care. Turn and reposition. will continue to monitor any change of condition.
--- NOTE | 2020-08-17 04:00 | NUR ---
NURSE NOTES: Morning care was done. Given bed bath. Cleaned Pt and applied lotion and cream. Tolerated well with NGT feeding. On compliance monitor with ST. No fever noted. RASS score -2 and on running with Versed @ 10mg/hr. Rt and Lt chest tube site intact and connected with low continuous suction. Turn and reposition. Placed fall precaution. Will continue to care plan.
[2020-08-17 05:59] LABS: HEMATOCRIT 30.3 % (42.0-52.0); HEMOGLOBIN 9.3 G/DL (14.2-18.0); MEAN CORPUSCULAR VOLUME 102 FL (80-99); PLATELET COUNT 176 K/UL (150-450); RED BLOOD COUNT 2.97 M/UL (4.70-6.10); RED CELL DISTRIBUTION WIDTH 20.8 % (11.6-14.8); WHITE BLOOD COUNT 20.5 K/UL (4.8-10.8)
--- NOTE | 2020-08-17 06:00 | NUR ---
NURSE NOTES: SaO2 98% with current Vent setting FiO2 100%. On shot tube machine tender with ST. No fever. Changed IV tubing. Given oral care and suction. Will continue to monitor any change of condition.
[2020-08-17 06:16] LABS: ALANINE AMINOTRANSFERASE 83 U/L (12-78); ALBUMIN 1.7 G/DL (3.4-5.0); ALBUMIN/GLOBULIN RATIO 0.5 (1.0-2.7); ALKALINE PHOSPHATASE 138 U/L (46-116); ANION GAP -1 mmol/L (5-15); ASPARTATE AMINO TRANSFERASE 82 U/L (15-37); BILIRUBIN,TOTAL 0.5 MG/DL (0.2-1.0); BLOOD UREA NITROGEN 13 mg/dL (7-18); CALCIUM 8.6 MG/DL (8.5-10.1); CHLORIDE 104 MMOL/L (98-107); CREATININE 0.2 MG/DL (0.55-1.30); SODIUM 145 MMOL/L (136-145)
[2020-08-17 06:26] LABS: CARBON DIOXIDE 40 MMOL/L (21-32)
--- NOTE | 2020-08-17 07:31 | NUR ---
NURSE HAND-OFF REPORT: Latest Vital Signs: Temperature 97.0 , Pulse 113 , B/P 104 /59 , Respiratory Rate 27 , O2 SAT 98 , Mechanical Ventilator, O2 Flow Rate . Vital Sign Comment: EKG Rhythm: Sinus Tachycardia Rhythm change?: N Latest Bradley Fall Score: 60 Fall Risk: High Risk Safety Measures: Call light Within Reach, Bed Alarm Zone 1, Side Rails Side Rails x3, Bed position Low and Locked. Fall Precautions: Yellow Socks Yellow Gown Door Sign Patient Fall Education Report given to ELIER Posadas. Pt is sedated on the bed and RASS -2 on running with Versed @ 10mg/hr. Dr. Cherry visited and assessed Pt.
--- NOTE | 2020-08-17 07:32 | NUR ---
NURSE NOTES: Received report from ELIER Srivastava. Patient in bed , sedated RASS -2. Patient on ETT 7.5 25cm, setting of AC 26 TV 500 PEEP 16 Fio2 100 %, O2 sat 99%. Patient on NGT tube on Left nares, Glucerna 1.2 @ 40ml/h, patent, intact, no residual at this time. Patient on cooling blanket, T 97.4, Biswas Catheter and rectal tube draining well to gravity at this time. Left upper arm on PICC line patent, intact. Chest tube on right side of chest , left upper chest Thora Vent, patent, connected to low continuous suction, present bubbling. Patient on Versed @ 10mg/hr. Bed in lowest position, side rails upx3, call light within reach, bed alarm on, Will continue to monitor.
--- NOTE | 2020-08-17 07:38 | General Progress Note ---
Subjective ROS Limited/Unobtainable: No Constitutional: Reports: malaise, weakness HEENT: Reports: no symptoms Cardiovascular: Reports: no symptoms Respiratory: Reports: shortness of breath, sputum Gastrointestinal/Abdominal: Reports: difficulty swallowing Genitourinary: Reports: no symptoms Neurologic/Psychiatric: Reports: no symptoms Endocrine: Reports: no symptoms Hematologic/Lymphatic: Reports: no symptoms Allergies: Coded Allergies: No Known Allergies (Unverified , 03/08/17) All Systems: reviewed and negative except above Subjective no events. remains on the vent, peep 16. fio2 100. s/p left chest tube yesterday. left ptx better. right infiltrates decreased Objective Last 24 Hour Vital Signs Date Time Temp Pulse Resp B/P (MAP) Pulse Ox O2 Delivery O2 Flow Rate FiO2 08/17/20 07:16 27 Mechanical Ventilator 100 08/17/20 07:00 113 27 104/59 (74) 98 08/17/20 06:30 113 27 109/53 (71) 98 08/17/20 06:16 26 Mechanical Ventilator 100 08/17/20 06:00 111 26 106/58 (74) 98 08/17/20 05:30 111 26 116/63 (80) 98 08/17/20 05:16 27 Mechanical Ventilator 100 08/17/20 05:00 112 27 107/61 (76) 98 08/17/20 04:30 113 26 108/65 (79) 98 08/17/20 04:16 26 Mechanical Ventilator 100 08/17/20 04:00 100 08/17/20 04:00 112 08/17/20 04:00 97.0 116 26 113/68 (83) 98 08/17/20 04:00 Mechanical Ventilator 08/17/20 03:30 120 27 113/67 (82) 97 08/17/20 03:27 116 26 100 08/17/20 03:16 26 Mechanical Ventilator 100 08/17/20 03:00 117 26 117/62 (80) 98 08/17/20 02:30 119 28 118/62 (80) 96 08/17/20 02:16 30 Mechanical Ventilator 100 08/17/20 02:00 124 30 121/69 (86) 94 08/17/20 01:30 129 26 127/74 (91) 96 08/17/20 01:17 29 Mechanical Ventilator 100 08/17/20 01:16 27 Mechanical Ventilator 100 08/17/20 01:00 129 28 129/64 (85) 97 08/17/20 00:30 131 27 128/68 (88) 95 08/17/20 00:16 24 Mechanical Ventilator 100 08/17/20 00:00 134 08/17/20 00:00 98.0 132 24 132/73 (92) 95 08/17/20 00:00 100 08/17/20 00:00 Mechanical Ventilator 08/16/20 23:30 131 24 138/66 (90) 95 08/16/20 23:26 133 27 100 08/16/20 23:16 25 Mechanical Ventilator 100 08/16/20 23:00 132 25 134/68 (90) 93 08/16/20 22:30 127 19 134/68 (90) 97 08/16/20 22:16 17 Mechanical Ventilator 100 08/16/20 22:15 128 21 95 08/16/20 22:00 126 17 135/65 (88) 94 08/16/20 21:30 117 28 115/60 (78) 97 08/16/20 21:16 26 Mechanical Ventilator 100 08/16/20 21:00 114 26 116/58 (77) 98 08/16/20 20:30 112 24 117/65 (82) 98 08/16/20 20:16 22 Mechanical Ventilator 100 08/16/20 20:00 123 08/16/20 20:00 100 08/16/20 20:00 97.0 114 22 119/67 (84) 96 08/16/20 20:00 Mechanical Ventilator 08/16/20 19:30 113 24 115/64 (81) 97 08/16/20 19:26 119 30 100 08/16/20 19:16 22 Mechanical Ventilator 100 08/16/20 19:00 116 22 127/68 (87) 95 08/16/20 18:00 122 27 120/68 (85) 94 08/16/20 18:00 122 27 120/68 (85) 94 08/16/20 17:16 28 Endotracheal Tube 100 08/16/20 17:00 125 26 122/73 (89) 96 08/16/20 16:16 26 Endotracheal Tube 100 08/16/20 16:00 100 08/16/20 16:00 126 08/16/20 16:00 97.1 116 26 124/67 (86) 99 08/16/20 16:00 Mechanical Ventilator 08/16/20 15:30 27 Mechanical Ventilator 100 08/16/20 15:20 117 28 100 08/16/20 15:16 28 Endotracheal Tube 100 08/16/20 15:00 113 26 112/68 (83) 100 08/16/20 14:16 25 Endotracheal Tube 100 08/16/20 14:00 118 27 128/74 (92) 100 08/16/20 13:16 26 Endotracheal Tube 100 08/16/20 13:00 121 27 114/70 (85) 100 08/16/20 12:16 26 Endotracheal Tube 100 08/16/20 12:00 Mechanical Ventilator 08/16/20 12:00 97.0 129 24 131/75 (93) 96 08/16/20 12:00 100 08/16/20 11:56 125 08/16/20 11:20 126 27 100 08/16/20 11:16 28 Endotracheal Tube 100 08/16/20 11:00 130 27 127/71 (89) 99 08/16/20 10:16 27 Endotracheal Tube 100 08/16/20 10:00 135 22 134/76 (95) 99 08/16/20 09:16 26 Endotracheal Tube 100 08/16/20 09:00 129 15 135/77 (96) 97 08/16/20 08:16 25 Endotracheal Tube 100 08/16/20 08:08 126 08/16/20 08:00 98.1 126 26 120/62 (81) 97 08/16/20 08:00 100 08/16/20 08:00 Mechanical Ventilator Intake and Output 08/16/20 08/17/20 19:00 07:00 Intake Total 900 ml 700 ml Output Total 610 ml 631 ml Balance 290 ml 69 ml Free Water 200 ml IV Total 220 ml 220 ml Tube Feeding 480 ml 480 ml Output Urine Total 530 ml 450 ml Stool Total 30 ml Chest Tube Drainage Total 80 ml 151 ml # Bowel Movements 30 Laboratory Tests 08/17/20 04:50: White Blood Count 20.5H, Red Blood Count 2.97L, Hemoglobin 9.3L, Hematocrit 30.3L, Mean Corpuscular Volume 102H, Mean Corpuscular Hemoglobin 31.2H, Mean Corpuscular Hemoglobin Concent 30.5L, Red Cell Distribution Width 20.8H, Platelet Count 176, Mean Platelet Volume 7.7, Neutrophils (%) (Auto) , Lymphocytes (%) (Auto) , Monocytes (%) (Auto) , Eosinophils (%) (Auto) , Basophils (%) (Auto) , Neutrophils % (Manual) [Pending], Lymphocytes % (Manual) [Pending], Platelet Estimate [Pending], Platelet Morphology [Pending], Sodium Level 145, Potassium Level 4.0, Chloride Level 104, Carbon Dioxide Level 40H, Anion Gap -1L, Blood Urea Nitrogen 13, Creatinine 0.2L, Estimat Glomerular Filtration Rate > 60, Glucose Level 102, Calcium Level 8.6, Magnesium Level 2.0, Total Bilirubin 0.5, Aspartate Amino Transf (AST/SGOT) 82H, Alanine Aminotransferase (ALT/SGPT) 83H, Alkaline Phosphatase 138H, Pro-B-Type Natriuretic Peptide 1139H, Total Protein 5.2L, Albumin 1.7L, Globulin 3.5, Albumin/Globulin Ratio 0.5L Height (Feet): 5 Height (Inches): 6.00 Weight (Pounds): 209 Objective deferred Assessment/Plan Problem List: (1) Coronavirus infection ICD Codes: B34.2 - Coronavirus infection, unspecified SNOMED: 450093149 (2) Respiratory failure ICD Codes: J96.90 - Respiratory failure, unspecified, unspecified whether with hypoxia or hypercapnia SNOMED: 398716283 (3) Hypercapnia ICD Codes: R06.89 - Other abnormalities of breathing SNOMED: 07470035, 684611315 (4) Hypoxia ICD Codes: R09.02 - Hypoxemia SNOMED: 142692317 (5) Asthma ICD Codes: J45.909 - Unspecified asthma, uncomplicated SNOMED: 377892393, 542033625 (6) Pneumothorax ICD Codes: J93.9 - Pneumothorax, unspecified SNOMED: 74291562 Status: progressing, not improved Assessment/Plan: vent support wean fio2 and peep as able chest tube management per surgery resp care/suctioning as needed monitor for bleeding. off lovenox due to oral bleeding monitor plts- trending up scd remains critical and guarded clinically no improvement Rolando Cherry MD Aug 17, 2020 07:38
[2020-08-17] MEDS: Vitamin B Complex Tab NG SCH (08:43)
[2020-08-17] MEDS: Levofloxacin 750mg tab NG SCH (08:43)
[2020-08-17] MEDS: Docusate 100mg/10ml Liq NG SCH ×2 (08:43→21:22)
[2020-08-17] MEDS: Levemir Flexpen SUBQ SCH ×2 (09:01→21:00)
--- NOTE | 2020-08-17 09:12 | NUR ---
NURSE NOTES: Dr. Butler at the bedside, assessed the patient, no new order given at this time. Will continue to monitor.
--- NOTE | 2020-08-17 09:18 | Surgery Progress Note ---
Surgery Progress Note Subjective Procedure Performed left chest tube insertion Additional Comments eyes open seems to be understanding no n/v leukocytosis ct with leak on right smaller left tube okay without leak pending cxr Objective Last 24 Hour Vital Signs Date Time Temp Pulse Resp B/P (MAP) Pulse Ox O2 Delivery O2 Flow Rate FiO2 08/17/20 07:16 27 Mechanical Ventilator 100 08/17/20 07:00 113 27 104/59 (74) 98 08/17/20 06:30 113 27 109/53 (71) 98 08/17/20 06:16 26 Mechanical Ventilator 100 08/17/20 06:00 111 26 106/58 (74) 98 08/17/20 05:30 111 26 116/63 (80) 98 08/17/20 05:16 27 Mechanical Ventilator 100 08/17/20 05:00 112 27 107/61 (76) 98 08/17/20 04:30 113 26 108/65 (79) 98 08/17/20 04:16 26 Mechanical Ventilator 100 08/17/20 04:00 100 08/17/20 04:00 112 08/17/20 04:00 97.0 116 26 113/68 (83) 98 08/17/20 04:00 Mechanical Ventilator 08/17/20 03:30 120 27 113/67 (82) 97 08/17/20 03:27 116 26 100 08/17/20 03:16 26 Mechanical Ventilator 100 08/17/20 03:00 117 26 117/62 (80) 98 08/17/20 02:30 119 28 118/62 (80) 96 08/17/20 02:16 30 Mechanical Ventilator 100 08/17/20 02:00 124 30 121/69 (86) 94 08/17/20 01:30 129 26 127/74 (91) 96 08/17/20 01:17 29 Mechanical Ventilator 100 08/17/20 01:16 27 Mechanical Ventilator 100 08/17/20 01:00 129 28 129/64 (85) 97 08/17/20 00:30 131 27 128/68 (88) 95 08/17/20 00:16 24 Mechanical Ventilator 100 08/17/20 00:00 134 08/17/20 00:00 98.0 132 24 132/73 (92) 95 08/17/20 00:00 100 08/17/20 00:00 Mechanical Ventilator 08/16/20 23:30 131 24 138/66 (90) 95 08/16/20 23:26 133 27 100 08/16/20 23:16 25 Mechanical Ventilator 100 08/16/20 23:00 132 25 134/68 (90) 93 08/16/20 22:30 127 19 134/68 (90) 97 08/16/20 22:16 17 Mechanical Ventilator 100 08/16/20 22:15 128 21 95 08/16/20 22:00 126 17 135/65 (88) 94 08/16/20 21:30 117 28 115/60 (78) 97 08/16/20 21:16 26 Mechanical Ventilator 100 08/16/20 21:00 114 26 116/58 (77) 98 08/16/20 20:30 112 24 117/65 (82) 98 08/16/20 20:16 22 Mechanical Ventilator 100 08/16/20 20:00 123 08/16/20 20:00 100 08/16/20 20:00 97.0 114 22 119/67 (84) 96 08/16/20 20:00 Mechanical Ventilator 08/16/20 19:30 113 24 115/64 (81) 97 08/16/20 19:26 119 30 100 08/16/20 19:16 22 Mechanical Ventilator 100 08/16/20 19:00 116 22 127/68 (87) 95 08/16/20 18:00 122 27 120/68 (85) 94 08/16/20 18:00 122 27 120/68 (85) 94 08/16/20 17:16 28 Endotracheal Tube 100 08/16/20 17:00 125 26 122/73 (89) 96 08/16/20 16:16 26 Endotracheal Tube 100 08/16/20 16:00 100 08/16/20 16:00 126 08/16/20 16:00 97.1 116 26 124/67 (86) 99 08/16/20 16:00 Mechanical Ventilator 08/16/20 15:30 27 Mechanical Ventilator 100 08/16/20 15:20 117 28 100 08/16/20 15:16 28 Endotracheal Tube 100 08/16/20 15:00 113 26 112/68 (83) 100 08/16/20 14:16 25 Endotracheal Tube 100 08/16/20 14:00 118 27 128/74 (92) 100 08/16/20 13:16 26 Endotracheal Tube 100 08/16/20 13:00 121 27 114/70 (85) 100 08/16/20 12:16 26 Endotracheal Tube 100 08/16/20 12:00 Mechanical Ventilator 08/16/20 12:00 97.0 129 24 131/75 (93) 96 08/16/20 12:00 100 08/16/20 11:56 125 08/16/20 11:20 126 27 100 08/16/20 11:16 28 Endotracheal Tube 100 08/16/20 11:00 130 27 127/71 (89) 99 08/16/20 10:16 27 Endotracheal Tube 100 08/16/20 10:00 135 22 134/76 (95) 99 I&O Intake and Output 08/16/20 08/17/20 19:00 07:00 Intake Total 900 ml 700 ml Output Total 610 ml 631 ml Balance 290 ml 69 ml Free Water 200 ml IV Total 220 ml 220 ml Tube Feeding 480 ml 480 ml Output Urine Total 530 ml 450 ml Stool Total 30 ml Chest Tube Drainage Total 80 ml 151 ml # Bowel Movements 30 Dressing: saturated Wound: other Drains: other Cardiovascular: RSR Respiratory: decreased breath sounds Abdomen: soft, flat, non-tender, present bowel sounds, non-distended Extremities: edema, no tenderness, no cyanosis Laboratory Tests Test 08/17/20 04:50 White Blood Count 20.5 K/UL (4.8-10.8) H Red Blood Count 2.97 M/UL (4.70-6.10) L Hemoglobin 9.3 G/DL (14.2-18.0) L Hematocrit 30.3 % (42.0-52.0) L Mean Corpuscular Volume 102 FL (80-99) H Mean Corpuscular Hemoglobin 31.2 PG (27.0-31.0) H Mean Corpuscular Hemoglobin Concent 30.5 G/DL (32.0-36.0) L Red Cell Distribution Width 20.8 % (11.6-14.8) H Platelet Count 176 K/UL (150-450) Mean Platelet Volume 7.7 FL (6.5-10.1) Neutrophils (%) (Auto) % (45.0-75.0) Lymphocytes (%) (Auto) % (20.0-45.0) Monocytes (%) (Auto) % (1.0-10.0) Eosinophils (%) (Auto) % (0.0-3.0) Basophils (%) (Auto) % (0.0-2.0) Neutrophils % (Manual) Pending Lymphocytes % (Manual) Pending Platelet Estimate Pending Platelet Morphology Pending Sodium Level 145 MMOL/L (136-145) Potassium Level 4.0 MMOL/L (3.5-5.1) Chloride Level 104 MMOL/L (98-107) Carbon Dioxide Level 40 MMOL/L (21-32) H Anion Gap -1 mmol/L (5-15) L Blood Urea Nitrogen 13 mg/dL (7-18) Creatinine 0.2 MG/DL (0.55-1.30) L Estimat Glomerular Filtration Rate > 60 mL/min (>60) Glucose Level 102 MG/DL (74-106) Calcium Level 8.6 MG/DL (8.5-10.1) Magnesium Level 2.0 MG/DL (1.8-2.4) Total Bilirubin 0.5 MG/DL (0.2-1.0) Aspartate Amino Transf (AST/SGOT) 82 U/L (15-37) H Alanine Aminotransferase (ALT/SGPT) 83 U/L (12-78) H Alkaline Phosphatase 138 U/L (46-116) H Pro-B-Type Natriuretic Peptide 1139 pg/mL (0-125) H Total Protein 5.2 G/DL (6.4-8.2) L Albumin 1.7 G/DL (3.4-5.0) L Globulin 3.5 g/dL Albumin/Globulin Ratio 0.5 (1.0-2.7) L Plan Problems: (1) Pneumothorax Assessment & Plan: 30M covid on vent peep 16 fi02 100 right ptx s/p right chest tube ett complication replaced 07/01 chest tube vac replaced this AM as well given malfunction high risk low tv cxr noted ill appearing tube and lines checked will need to monitor closely unable to wean vent at this time cont current care plan right chest tube with air leak persistent left side okay without leak large subq emphysema likely from right leaking Right pneumothorax is slightly increased from the prior exam, still small. Right chest tube remains in place. Stable satisfactory position of endotracheal and orogastric tubes. Left arm PICC remain stable. Previously demonstrated pneumomediastinum is not definitely evident currently. There is marked improvement of previously demonstrated right supraclavicular subcutaneous emphysema, with mild residual. Bilateral infiltrates remain worsening prognosis guarded chest tube stable but leak with high peep bilateral chest tubes placed now bilateral ptx Chest vent catheter remains in place on the left. Previously demonstrated left pneumothorax has improved considerably, with some residual primarily at the left lung base. Right chest tube remains in place. Small right apical pneumothorax is unchanged. Bilateral subcutaneous emphysema is slightly worse. The endotracheal and orogastric tube positions are stable and satisfactory. Left arm PICC is again demonstrated. The heart size is normal. Bilateral infiltrates are unchanged Impression: Over 2 days, interim marked improvement of previously demonstrated left pneumothorax, now small Unchanged small right apical pneumothorax Unchanged bilateral infiltrates (2) Respiratory failure (3) Coronavirus infection (4) Diabetes (5) Hypercapnia (6) Hypoxia (7) Asthma (8) HTN (hypertension) (9) Obesity (BMI 30-39.9) (10) Acute respiratory distress syndrome (ARDS) due to 2019-nCoV (11) Acute hypoxemic respiratory failure due to COVID-19 (12) Bradycardia (13) Laceration Mulugeta Butler Aug 17, 2020 09:18
--- NOTE | 2020-08-17 10:06 | NUR ---
NURSE NOTES: Dr. Price at the bedside, made aware of condition of chest tube, no new order received at this time. ABG ordered. RT made aware.
--- NOTE | 2020-08-17 11:58 | Infectious Diseases Prog Note ---
Assessment/Plan Assessment/Plan antibiotics : levoquin, fluconazole A 1. COVID-19 pneumonia on 100 % Fi O2 of oxygen with O2 saturation 99 %. s/p ivermectin x 2 s/p solumedrol 2. History of asthma. 3. Elevated liver function tests improving 4. klebsiella pneumonia s/p rx 5. thrush s/p rx 6. pneumothorax improving P 1. d/c levoquin 2. d/c fluconazole 3. Continue isolation. Subjective ROS Limited/Unobtainable: Yes Allergies: Coded Allergies: No Known Allergies (Unverified , 03/08/17) Objective Last 24 Hour Vital Signs Date Time Temp Pulse Resp B/P (MAP) Pulse Ox O2 Delivery O2 Flow Rate FiO2 08/17/20 11:28 23 Mechanical Ventilator 100 08/17/20 11:16 26 Mechanical Ventilator 100 08/17/20 11:00 117 26 112/69 (83) 99 08/17/20 10:16 26 Mechanical Ventilator 100 08/17/20 10:00 123 26 114/64 (81) 99 08/17/20 09:16 27 Mechanical Ventilator 100 08/17/20 09:00 120 27 124/71 (88) 98 08/17/20 08:16 26 Mechanical Ventilator 100 08/17/20 08:00 114 08/17/20 08:00 100 08/17/20 08:00 Mechanical Ventilator 08/17/20 08:00 97.3 118 26 111/58 (75) 97 08/17/20 07:18 113 26 100 08/17/20 07:16 27 Mechanical Ventilator 100 08/17/20 07:00 113 27 104/59 (74) 98 08/17/20 06:30 113 27 109/53 (71) 98 08/17/20 06:16 26 Mechanical Ventilator 100 08/17/20 06:00 111 26 106/58 (74) 98 08/17/20 05:30 111 26 116/63 (80) 98 08/17/20 05:16 27 Mechanical Ventilator 100 08/17/20 05:00 112 27 107/61 (76) 98 08/17/20 04:30 113 26 108/65 (79) 98 08/17/20 04:16 26 Mechanical Ventilator 100 08/17/20 04:00 100 08/17/20 04:00 112 08/17/20 04:00 97.0 116 26 113/68 (83) 98 08/17/20 04:00 Mechanical Ventilator 08/17/20 03:30 120 27 113/67 (82) 97 08/17/20 03:27 116 26 100 08/17/20 03:16 26 Mechanical Ventilator 100 08/17/20 03:00 117 26 117/62 (80) 98 08/17/20 02:30 119 28 118/62 (80) 96 08/17/20 02:16 30 Mechanical Ventilator 100 08/17/20 02:00 124 30 121/69 (86) 94 08/17/20 01:30 129 26 127/74 (91) 96 08/17/20 01:17 29 Mechanical Ventilator 100 08/17/20 01:16 27 Mechanical Ventilator 100 08/17/20 01:00 129 28 129/64 (85) 97 08/17/20 00:30 131 27 128/68 (88) 95 08/17/20 00:16 24 Mechanical Ventilator 100 08/17/20 00:00 134 08/17/20 00:00 98.0 132 24 132/73 (92) 95 08/17/20 00:00 100 08/17/20 00:00 Mechanical Ventilator 08/16/20 23:30 131 24 138/66 (90) 95 08/16/20 23:26 133 27 100 08/16/20 23:16 25 Mechanical Ventilator 100 08/16/20 23:00 132 25 134/68 (90) 93 08/16/20 22:30 127 19 134/68 (90) 97 08/16/20 22:16 17 Mechanical Ventilator 100 08/16/20 22:15 128 21 95 08/16/20 22:00 126 17 135/65 (88) 94 08/16/20 21:30 117 28 115/60 (78) 97 08/16/20 21:16 26 Mechanical Ventilator 100 08/16/20 21:00 114 26 116/58 (77) 98 08/16/20 20:30 112 24 117/65 (82) 98 08/16/20 20:16 22 Mechanical Ventilator 100 08/16/20 20:00 123 08/16/20 20:00 100 08/16/20 20:00 97.0 114 22 119/67 (84) 96 08/16/20 20:00 Mechanical Ventilator 08/16/20 19:30 113 24 115/64 (81) 97 08/16/20 19:26 119 30 100 08/16/20 19:16 22 Mechanical Ventilator 100 08/16/20 19:00 116 22 127/68 (87) 95 08/16/20 18:00 122 27 120/68 (85) 94 08/16/20 18:00 122 27 120/68 (85) 94 08/16/20 17:16 28 Endotracheal Tube 100 08/16/20 17:00 125 26 122/73 (89) 96 08/16/20 16:16 26 Endotracheal Tube 100 08/16/20 16:00 100 08/16/20 16:00 126 08/16/20 16:00 97.1 116 26 124/67 (86) 99 08/16/20 16:00 Mechanical Ventilator 08/16/20 15:30 27 Mechanical Ventilator 100 08/16/20 15:20 117 28 100 08/16/20 15:16 28 Endotracheal Tube 100 08/16/20 15:00 113 26 112/68 (83) 100 08/16/20 14:16 25 Endotracheal Tube 100 08/16/20 14:00 118 27 128/74 (92) 100 08/16/20 13:16 26 Endotracheal Tube 100 08/16/20 13:00 121 27 114/70 (85) 100 08/16/20 12:16 26 Endotracheal Tube 100 08/16/20 12:00 Mechanical Ventilator 08/16/20 12:00 97.0 129 24 131/75 (93) 96 08/16/20 12:00 100 08/16/20 11:56 125 Height (Feet): 5 Height (Inches): 6.00 Weight (Pounds): 209 Laboratory Tests Test 08/17/20 04:50 08/17/20 10:12 White Blood Count 20.5 K/UL (4.8-10.8) H Red Blood Count 2.97 M/UL (4.70-6.10) L Hemoglobin 9.3 G/DL (14.2-18.0) L Hematocrit 30.3 % (42.0-52.0) L Mean Corpuscular Volume 102 FL (80-99) H Mean Corpuscular Hemoglobin 31.2 PG (27.0-31.0) H Mean Corpuscular Hemoglobin Concent 30.5 G/DL (32.0-36.0) L Red Cell Distribution Width 20.8 % (11.6-14.8) H Platelet Count 176 K/UL (150-450) Mean Platelet Volume 7.7 FL (6.5-10.1) Neutrophils (%) (Auto) % (45.0-75.0) Lymphocytes (%) (Auto) % (20.0-45.0) Monocytes (%) (Auto) % (1.0-10.0) Eosinophils (%) (Auto) % (0.0-3.0) Basophils (%) (Auto) % (0.0-2.0) Differential Total Cells Counted 100 Neutrophils % (Manual) 87 % (45-75) H Lymphocytes % (Manual) 8 % (20-45) L Monocytes % (Manual) 3 % (1-10) Eosinophils % (Manual) 0 % (0-3) Basophils % (Manual) 0 % (0-2) Band Neutrophils 2 % (0-8) Platelet Estimate Adequate Platelet Morphology Normal Polychromasia 1+ Hypochromasia 1+ Anisocytosis 3+ Macrocytosis 1+ Sodium Level 145 MMOL/L (136-145) Potassium Level 4.0 MMOL/L (3.5-5.1) Chloride Level 104 MMOL/L (98-107) Carbon Dioxide Level 40 MMOL/L (21-32) H Anion Gap -1 mmol/L (5-15) L Blood Urea Nitrogen 13 mg/dL (7-18) Creatinine 0.2 MG/DL (0.55-1.30) L Estimat Glomerular Filtration Rate > 60 mL/min (>60) Glucose Level 102 MG/DL (74-106) Calcium Level 8.6 MG/DL (8.5-10.1) Magnesium Level 2.0 MG/DL (1.8-2.4) Total Bilirubin 0.5 MG/DL (0.2-1.0) Aspartate Amino Transf (AST/SGOT) 82 U/L (15-37) H Alanine Aminotransferase (ALT/SGPT) 83 U/L (12-78) H Alkaline Phosphatase 138 U/L (46-116) H Pro-B-Type Natriuretic Peptide 1139 pg/mL (0-125) H Total Protein 5.2 G/DL (6.4-8.2) L Albumin 1.7 G/DL (3.4-5.0) L Globulin 3.5 g/dL Albumin/Globulin Ratio 0.5 (1.0-2.7) L Arterial Blood pH 7.359 (7.350-7.450) Arterial Blood Partial Pressure CO2 85.2 mmHg (35.0-45.0) *H Arterial Blood Partial Pressure O2 73.4 mmHg (75.0-100.0) L Arterial Blood HCO3 46.9 mmol/L (22.0-26.0) *H Arterial Blood Oxygen Saturation 93.1 % (95-100) L Arterial Blood Base Excess 18.3 (-2-2) *H Jacob Test Positive Current Medications Medications (Trade) Dose Ordered Sig/Milagro Route PRN Reason Start Time Stop Time Status Last Admin Dose Admin Acetaminophen (Tylenol) 650 mg Q4H PRN RECTAL Mild Pain (Pain Scale 1-3) 07/24/20 18:15 08/23/20 18:14 07/25/20 11:49 Acetaminophen (Tylenol) 650 mg Q6H PRN NG Temp >100.5 07/26/20 08:30 08/25/20 08:29 08/13/20 05:06 Acetaminophen (Tylenol) 650 mg Q6H PRN NG Mild Pain (Pain Scale 1-3) 07/26/20 08:30 08/25/20 08:29 08/15/20 15:15 Chlorhexidine Gluconate (Marycarmen-Hex 2%) 1 applic DAILY@2000 TOPIC 07/20/20 20:00 10/18/20 19:59 08/16/20 19:55 Dextrose (Dextrose 50%) 25 ml Q30M PRN IV Hypoglycemia 07/23/20 13:15 10/21/20 13:14 Dextrose (Dextrose 50%) 50 ml Q30M PRN IV Hypoglycemia 07/23/20 13:15 10/21/20 13:14 08/15/20 20:26 Dextrose/Sodium Chloride 1,000 ml @ 100 mls/hr Q10H PRN IV WHILE PRONING ONLY 07/24/20 17:45 08/23/20 17:44 08/10/20 05:33 Docusate Sodium (Colace) 100 mg EVERY 12 HOURS NG 07/27/20 21:00 08/26/20 20:59 08/17/20 08:43 Famotidine (Pepcid I.v.) 20 mg Q12HR IVP 08/04/20 21:00 09/03/20 20:59 08/17/20 08:43 Insulin Aspart (NovoLOG) EVERY 6 HOURS SUBQ 07/28/20 00:00 10/21/20 15:59 08/17/20 00:13 Insulin Detemir (Levemir) 26 units EVERY 12 HOURS SUBQ 07/26/20 09:00 10/20/20 08:59 08/17/20 09:01 Levofloxacin (Levaquin) 750 mg DAILY NG 08/13/20 14:00 08/20/20 13:59 08/17/20 08:43 Midazolam HCl 100 mg/Sodium Chloride 200 ml @ 0 mls/hr Q24H IV 08/12/20 18:00 08/19/20 17:59 08/17/20 11:28 Ondansetron HCl (Zofran) 4 mg Q6H PRN IVP Nausea & Vomiting 08/15/20 15:45 09/14/20 15:44 08/15/20 15:54 Vitamin B Complex (Vitamin B Complex) 1 tab DAILY NG 07/24/20 09:00 10/09/20 08:59 08/17/20 08:43 Jose Alberto MD Aug 17, 2020 11:58
--- NOTE | 2020-08-17 12:00 | NUR ---
NURSE NOTES: Oral care and suction provided, scab and mild bleeding from side of mouth due to skin tear.
--- NOTE | 2020-08-17 12:55 | Diagnostic Imaging Report ---
Indication: Cough Technique: One view of the chest Comparison: 08/15/2020 Findings: Left chest vent catheter remains in place. Small left pneumothorax persists, appears slightly improved. Right chest tube remains. Previously demonstrated right apical pneumothorax is decreased, now only a sliver visible. There is some lucency abutting the right heart border. Uncertain as to whether this represents medial pneumothorax or pneumomediastinum. There is decreased but still extensive subcutaneous emphysema bilaterally. Bilateral infiltrates are unchanged. Tube and line positions are stable, satisfactory Impression: Decreased small bilateral pneumothoraces, as described Decreased subcutaneous emphysema Unchanged bilateral infiltrates
--- NOTE | 2020-08-17 13:06 | NUR ---
RADIOLOGY DEPT., CHEST X-RAY DONE.-P.DYE
--- NOTE | 2020-08-17 13:56 | NUR ---
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
--- NOTE | 2020-08-17 17:16 | Pulmonology Progress Note ---
Subjective ROS Limited/Unobtainable: Yes Constitutional: Denies: fever Gastrointestinal/Abdominal: Denies: nausea, vomiting, diarrhea Musculoskeletal: Reports: pain Allergies: Coded Allergies: No Known Allergies (Unverified , 03/08/17) All Systems: reviewed and negative except above Subjective ct in place remains on high oxygen and PEEP reduced and patient desaturated on vent full code d/w nursing sedated tachycardia Objective Last 24 Hour Vital Signs Date Time Temp Pulse Resp B/P (MAP) Pulse Ox O2 Delivery O2 Flow Rate FiO2 08/17/20 16:16 30 Mechanical Ventilator 100 08/17/20 15:16 27 Mechanical Ventilator 100 08/17/20 15:08 112 28 100 08/17/20 15:00 109 27 105/51 (69) 99 08/17/20 14:16 26 Mechanical Ventilator 100 08/17/20 14:00 106 27 103/53 (70) 08/17/20 13:16 26 Mechanical Ventilator 100 08/17/20 13:00 103 27 104/55 (71) 100 08/17/20 12:16 26 Mechanical Ventilator 100 08/17/20 12:00 96.0 108 25 107/61 (76) 08/17/20 12:00 Mechanical Ventilator 08/17/20 12:00 100 08/17/20 12:00 110 08/17/20 11:28 23 Mechanical Ventilator 100 08/17/20 11:18 113 28 100 08/17/20 11:16 26 Mechanical Ventilator 100 08/17/20 11:00 117 26 112/69 (83) 99 08/17/20 10:16 26 Mechanical Ventilator 100 08/17/20 10:00 123 26 114/64 (81) 99 08/17/20 09:16 27 Mechanical Ventilator 100 08/17/20 09:00 120 27 124/71 (88) 98 08/17/20 08:16 26 Mechanical Ventilator 100 08/17/20 08:00 114 08/17/20 08:00 100 08/17/20 08:00 Mechanical Ventilator 08/17/20 08:00 97.3 118 26 111/58 (75) 97 08/17/20 07:18 113 26 100 08/17/20 07:16 27 Mechanical Ventilator 100 08/17/20 07:00 113 27 104/59 (74) 98 08/17/20 06:30 113 27 109/53 (71) 98 08/17/20 06:16 26 Mechanical Ventilator 100 08/17/20 06:00 111 26 106/58 (74) 98 08/17/20 05:30 111 26 116/63 (80) 98 08/17/20 05:16 27 Mechanical Ventilator 100 08/17/20 05:00 112 27 107/61 (76) 98 08/17/20 04:30 113 26 108/65 (79) 98 08/17/20 04:16 26 Mechanical Ventilator 100 08/17/20 04:00 100 08/17/20 04:00 112 08/17/20 04:00 97.0 116 26 113/68 (83) 98 08/17/20 04:00 Mechanical Ventilator 08/17/20 03:30 120 27 113/67 (82) 97 08/17/20 03:27 116 26 100 08/17/20 03:16 26 Mechanical Ventilator 100 08/17/20 03:00 117 26 117/62 (80) 98 08/17/20 02:30 119 28 118/62 (80) 96 08/17/20 02:16 30 Mechanical Ventilator 100 08/17/20 02:00 124 30 121/69 (86) 94 08/17/20 01:30 129 26 127/74 (91) 96 08/17/20 01:17 29 Mechanical Ventilator 100 08/17/20 01:16 27 Mechanical Ventilator 100 08/17/20 01:00 129 28 129/64 (85) 97 08/17/20 00:30 131 27 128/68 (88) 95 08/17/20 00:16 24 Mechanical Ventilator 100 08/17/20 00:00 134 08/17/20 00:00 98.0 132 24 132/73 (92) 95 08/17/20 00:00 100 08/17/20 00:00 Mechanical Ventilator 08/16/20 23:30 131 24 138/66 (90) 95 08/16/20 23:26 133 27 100 08/16/20 23:16 25 Mechanical Ventilator 100 08/16/20 23:00 132 25 134/68 (90) 93 08/16/20 22:30 127 19 134/68 (90) 97 08/16/20 22:16 17 Mechanical Ventilator 100 08/16/20 22:15 128 21 95 08/16/20 22:00 126 17 135/65 (88) 94 08/16/20 21:30 117 28 115/60 (78) 97 08/16/20 21:16 26 Mechanical Ventilator 100 08/16/20 21:00 114 26 116/58 (77) 98 08/16/20 20:30 112 24 117/65 (82) 98 08/16/20 20:16 22 Mechanical Ventilator 100 08/16/20 20:00 123 08/16/20 20:00 100 08/16/20 20:00 97.0 114 22 119/67 (84) 96 08/16/20 20:00 Mechanical Ventilator 08/16/20 19:30 113 24 115/64 (81) 97 08/16/20 19:26 119 30 100 08/16/20 19:16 22 Mechanical Ventilator 100 08/16/20 19:00 116 22 127/68 (87) 95 08/16/20 18:00 122 27 120/68 (85) 94 08/16/20 18:00 122 27 120/68 (85) 94 08/16/20 17:16 28 Endotracheal Tube 100 Intake and Output 08/16/20 08/17/20 19:00 07:00 Intake Total 900 ml 700 ml Output Total 610 ml 631 ml Balance 290 ml 69 ml Free Water 200 ml IV Total 220 ml 220 ml Tube Feeding 480 ml 480 ml Output Urine Total 530 ml 450 ml Stool Total 30 ml Chest Tube Drainage Total 80 ml 151 ml # Bowel Movements 30 Objective deferred due to COVID Laboratory Tests 08/17/20 00:11: POC Whole Blood Glucose [Pending] 08/17/20 04:50: White Blood Count 20.5H, Red Blood Count 2.97L, Hemoglobin 9.3L, Hematocrit 30.3L, Mean Corpuscular Volume 102H, Mean Corpuscular Hemoglobin 31.2H, Mean Corpuscular Hemoglobin Concent 30.5L, Red Cell Distribution Width 20.8H, Platelet Count 176, Mean Platelet Volume 7.7, Neutrophils (%) (Auto) , Lymphocytes (%) (Auto) , Monocytes (%) (Auto) , Eosinophils (%) (Auto) , Basophils (%) (Auto) , Differential Total Cells Counted 100, Neutrophils % (Manual) 87H, Lymphocytes % (Manual) 8L, Monocytes % (Manual) 3, Eosinophils % (Manual) 0, Basophils % (Manual) 0, Band Neutrophils 2, Platelet Estimate Adequate, Platelet Morphology Normal, Polychromasia 1+, Hypochromasia 1+, Anisocytosis 3+, Macrocytosis 1+, Sodium Level 145, Potassium Level 4.0, Chloride Level 104, Carbon Dioxide Level 40H, Anion Gap -1L, Blood Urea Nitrogen 13, Creatinine 0.2L, Estimat Glomerular Filtration Rate > 60, Glucose Level 102, Calcium Level 8.6, Magnesium Level 2.0, Total Bilirubin 0.5, Aspartate Amino Transf (AST/SGOT) 82H, Alanine Aminotransferase (ALT/SGPT) 83H, Alkaline Phosphatase 138H, Pro-B-Type Natriuretic Peptide 1139H, Total Protein 5.2L, Albumin 1.7L, Globulin 3.5, Albumin/Globulin Ratio 0.5L 08/17/20 10:12: Arterial Blood pH 7.359, Arterial Blood Partial Pressure CO2 85.2*H, Arterial Blood Partial Pressure O2 73.4L, Arterial Blood HCO3 46.9*H, Arterial Blood Oxygen Saturation 93.1L, Arterial Blood Base Excess 18.3*H, Jacob Test Positive Current Medications Medications (Trade) Dose Ordered Sig/Milagro Route PRN Reason Start Time Stop Time Status Last Admin Dose Admin Acetaminophen (Tylenol) 650 mg Q4H PRN RECTAL Mild Pain (Pain Scale 1-3) 07/24/20 18:15 08/23/20 18:14 07/25/20 11:49 Acetaminophen (Tylenol) 650 mg Q6H PRN NG Temp >100.5 07/26/20 08:30 08/25/20 08:29 08/13/20 05:06 Acetaminophen (Tylenol) 650 mg Q6H PRN NG Mild Pain (Pain Scale 1-3) 07/26/20 08:30 08/25/20 08:29 08/15/20 15:15 Chlorhexidine Gluconate (Marycarmen-Hex 2%) 1 applic DAILY@1999 TOPIC 07/20/20 20:00 10/18/20 19:59 08/16/20 19:55 Dextrose (Dextrose 50%) 25 ml Q30M PRN IV Hypoglycemia 07/23/20 13:15 10/21/20 13:14 Dextrose (Dextrose 50%) 50 ml Q30M PRN IV Hypoglycemia 07/23/20 13:15 10/21/20 13:14 08/15/20 20:26 Dextrose/Sodium Chloride 1,000 ml @ 100 mls/hr Q10H PRN IV WHILE PRONING ONLY 07/24/20 17:45 08/23/20 17:44 08/10/20 05:33 Docusate Sodium (Colace) 100 mg EVERY 12 HOURS NG 07/27/20 21:00 08/26/20 20:59 08/17/20 08:43 Famotidine (Pepcid I.v.) 20 mg Q12HR IVP 08/04/20 21:00 09/03/20 20:59 08/17/20 08:43 Insulin Aspart (NovoLOG) EVERY 6 HOURS SUBQ 07/28/20 00:00 10/21/20 15:59 08/17/20 00:13 Insulin Detemir (Levemir) 26 units EVERY 12 HOURS SUBQ 07/26/20 09:00 10/20/20 08:59 08/17/20 09:01 Midazolam HCl 100 mg/Sodium Chloride 200 ml @ 0 mls/hr Q24H IV 08/12/20 18:00 08/19/20 17:59 08/17/20 11:28 Ondansetron HCl (Zofran) 4 mg Q6H PRN IVP Nausea & Vomiting 08/15/20 15:45 09/14/20 15:44 08/15/20 15:54 Vitamin B Complex (Vitamin B Complex) 1 tab DAILY NG 07/24/20 09:00 10/09/20 08:59 08/17/20 08:43 Assessment/Plan Assessment/Plan acute hypoxemic respiratory failure COVID pneumonia Asthma elevated liver enzymes DNR ARDS with fibrosing phase pneumothorax elevated TG subq emphysema PLAN not improved; still on high o2 and peep/ sats >90 CT per surgery / monitor sq emphysema imaging PRN unable to trach at present monitor acid base status respiratory care ID noted DVT prophylaxis prognosis poor overall for meaningful recovery monitor respiratory status for change not safe for trach placement medications/laboratory data/nursing notes/ICU care reviewed in detail note reviewed and edited care discussed with RN and RT ICU time spent >40 minutes Elfego Price MD Aug 17, 2020 17:16
--- NOTE | 2020-08-17 18:00 | NUR ---
NURSE NOTES: Dr. Butler made aware chest tube intact, Patient s/s dyspneic O2 sat 80-93%, elevated HR 130s, per MD stat chest x-ray order noted, entered, carried out. Will continue to follow up .
--- NOTE | 2020-08-17 18:51 | Diagnostic Imaging Report ---
EXAM: XR Chest, 1 View CLINICAL HISTORY: SOB TECHNIQUE: Frontal view of the chest. COMPARISON: 08/13/2020. FINDINGS: Lungs: Unremarkable. No consolidation. Pleural space: Small left pneumothorax having diminished in size since the earlier study. Small right pneumothorax is noted, unchanged. Heart: Unremarkable. No cardiomegaly. Mediastinum: Unremarkable. Bones/joints: Osteopenia. Soft tissues: Extensive subcutaneous emphysema along the lateral chest berry upper half of the chest bilaterally and the supraclavicular regions bilaterally and extensively. Tubes, lines and devices: Endotracheal tube is noted in place approximately 2.5 cm above the blaine. NG tube is noted in place with tip below diaphragm. Right-sided chest tube is noted in place. Left- sided chest tube is noted in place per IMPRESSION: 1. Bilateral pneumothoraces similar to that noted on the previous study. Right-sided pneumothorax is unchanged. The left-sided pneumothorax is improved slightly. 2. Diffuse patchy airspace disease throughout both lungs worrisome for diffuse Covid-90 pneumonia. 3. Extensive subcu venous emphysema appeared 4. Endotracheal and NG tubes are noted in place and in good position.
--- NOTE | 2020-08-17 18:59 | NUR ---
NURSE HAND-OFF REPORT: Latest Vital Signs: Temperature 97.2 , Pulse 133 , B/P 121 /67 , Respiratory Rate 30 , O2 SAT 81 , Mechanical Ventilator, O2 Flow Rate . Vital Sign Comment: dyspneic, MD made aware, O2 sat 80s now , awaiting for cxr result EKG Rhythm: Sinus Tachycardia Rhythm change?: N MD Notified?: MD Response: Latest Bradley Fall Score: 60 Fall Risk: High Risk Safety Measures: Call light Within Reach, Bed Alarm Zone 1, Side Rails Side Rails x3, Bed position Low and Locked. Fall Precautions: Yellow Socks Yellow Gown Door Sign Patient Fall Education Report given to ELIER Lora.
--- NOTE | 2020-08-17 19:00 | NUR ---
NURSE NOTES: Received patient from ELIER Nino. Will continue plan of care.
--- NOTE | 2020-08-17 20:00 | NUR ---
NURSE NOTES: Patient is intubated; ETT 7.5 @ 25cm to the left lipline to vent with settings AC:26, TV:500, FiO2:100%, PEEP:16. Left nare NGT in place and running Glucerna 1.2 @ 40ml/hr and tolerating. On Versed @ 10mg via left upper arm PICC; mentation of RASS -2 lightly sedated, opens eyes to touch and voice, can nod to simple questions. Rectal tube and aleman catheter in place and draining. Right chest tube and left thora-vent intact and hooked onto low continuous wall suction. Cooling blanket on, pt afebrile @ 98.6 rectal. Will continue plan of care
[2020-08-17] MEDS: Dyna-Hex 2% Top Sol 2oz TOPIC SCH (21:22)
--- NOTE | 2020-08-17 21:55 | Cardiology Progress Note ---
Subjective DATE OF SERVICE: Aug 17, 2019 Condition remains critical and prognosis guarded He remains on full vent support, on high flow FIO2 - orally intubated. s/p left PTX - chest tube placed with improvement Objective Last 24 Hour Vital Signs Date Time Temp Pulse Resp B/P (MAP) Pulse Ox O2 Delivery O2 Flow Rate FiO2 08/17/20 21:23 26 Mechanical Ventilator 100 08/17/20 21:00 148 32 128/70 (89) 81 08/17/20 20:16 34 Mechanical Ventilator 100 08/17/20 20:00 Mechanical Ventilator 08/17/20 20:00 98.6 137 33 113/58 (76) 87 08/17/20 20:00 100 08/17/20 19:16 30 Mechanical Ventilator 100 08/17/20 19:00 138 30 131/70 (90) 81 08/17/20 18:55 140 31 100 08/17/20 18:16 30 Mechanical Ventilator 100 08/17/20 18:00 133 29 121/67 (85) 81 08/17/20 17:16 28 Mechanical Ventilator 100 08/17/20 17:00 127 28 134/74 (94) 77 08/17/20 16:16 30 Mechanical Ventilator 100 08/17/20 16:00 100 08/17/20 16:00 97.2 117 28 102/50 (67) 08/17/20 16:00 Mechanical Ventilator 08/17/20 16:00 110 08/17/20 15:16 27 Mechanical Ventilator 100 08/17/20 15:08 112 28 100 08/17/20 15:00 109 27 105/51 (69) 99 08/17/20 14:16 26 Mechanical Ventilator 100 08/17/20 14:00 106 27 103/53 (70) 08/17/20 13:16 26 Mechanical Ventilator 100 08/17/20 13:00 103 27 104/55 (71) 100 08/17/20 12:16 26 Mechanical Ventilator 100 08/17/20 12:00 96.0 108 25 107/61 (76) 08/17/20 12:00 Mechanical Ventilator 08/17/20 12:00 100 08/17/20 12:00 110 08/17/20 11:28 23 Mechanical Ventilator 100 08/17/20 11:18 113 28 100 08/17/20 11:16 26 Mechanical Ventilator 100 08/17/20 11:00 117 26 112/69 (83) 99 08/17/20 10:16 26 Mechanical Ventilator 100 08/17/20 10:00 123 26 114/64 (81) 99 08/17/20 09:16 27 Mechanical Ventilator 100 08/17/20 09:00 120 27 124/71 (88) 98 08/17/20 08:16 26 Mechanical Ventilator 100 08/17/20 08:00 114 08/17/20 08:00 100 08/17/20 08:00 Mechanical Ventilator 08/17/20 08:00 97.3 118 26 111/58 (75) 97 08/17/20 07:18 113 26 100 08/17/20 07:16 27 Mechanical Ventilator 100 08/17/20 07:00 113 27 104/59 (74) 98 08/17/20 06:30 113 27 109/53 (71) 98 08/17/20 06:16 26 Mechanical Ventilator 100 08/17/20 06:00 111 26 106/58 (74) 98 08/17/20 05:30 111 26 116/63 (80) 98 08/17/20 05:16 27 Mechanical Ventilator 100 08/17/20 05:00 112 27 107/61 (76) 98 08/17/20 04:30 113 26 108/65 (79) 98 08/17/20 04:16 26 Mechanical Ventilator 100 08/17/20 04:00 100 08/17/20 04:00 112 08/17/20 04:00 97.0 116 26 113/68 (83) 98 08/17/20 04:00 Mechanical Ventilator 08/17/20 03:30 120 27 113/67 (82) 97 08/17/20 03:27 116 26 100 08/17/20 03:16 26 Mechanical Ventilator 100 08/17/20 03:00 117 26 117/62 (80) 98 08/17/20 02:30 119 28 118/62 (80) 96 08/17/20 02:16 30 Mechanical Ventilator 100 08/17/20 02:00 124 30 121/69 (86) 94 08/17/20 01:30 129 26 127/74 (91) 96 08/17/20 01:17 29 Mechanical Ventilator 100 08/17/20 01:16 27 Mechanical Ventilator 100 08/17/20 01:00 129 28 129/64 (85) 97 08/17/20 00:30 131 27 128/68 (88) 95 08/17/20 00:16 24 Mechanical Ventilator 100 08/17/20 00:00 134 08/17/20 00:00 98.0 132 24 132/73 (92) 95 08/17/20 00:00 100 08/17/20 00:00 Mechanical Ventilator 08/16/20 23:30 131 24 138/66 (90) 95 08/16/20 23:26 133 27 100 08/16/20 23:16 25 Mechanical Ventilator 100 08/16/20 23:00 132 25 134/68 (90) 93 08/16/20 22:30 127 19 134/68 (90) 97 08/16/20 22:16 17 Mechanical Ventilator 100 08/16/20 22:15 128 21 95 08/16/20 22:00 126 17 135/65 (88) 94 HEENT: Orally intubated, Mechanically Ventilated, Thin secretions ET Tube RHYTHM: SB LUNGS: bilateral rhonchi, other - right chest tube CARDIAC: regular rhythm, normal S1 and S2, bradycardia ABDOMEN: normal bowel sounds, non tender, soft EXTREMITIES: normal range of motion, non-tender Laboratory Tests Test 08/17/20 00:11 08/17/20 04:50 08/17/20 10:12 POC Whole Blood Glucose Pending White Blood Count 20.5 K/UL (4.8-10.8) H Red Blood Count 2.97 M/UL (4.70-6.10) L Hemoglobin 9.3 G/DL (14.2-18.0) L Hematocrit 30.3 % (42.0-52.0) L Mean Corpuscular Volume 102 FL (80-99) H Mean Corpuscular Hemoglobin 31.2 PG (27.0-31.0) H Mean Corpuscular Hemoglobin Concent 30.5 G/DL (32.0-36.0) L Red Cell Distribution Width 20.8 % (11.6-14.8) H Platelet Count 176 K/UL (150-450) Mean Platelet Volume 7.7 FL (6.5-10.1) Neutrophils (%) (Auto) % (45.0-75.0) Lymphocytes (%) (Auto) % (20.0-45.0) Monocytes (%) (Auto) % (1.0-10.0) Eosinophils (%) (Auto) % (0.0-3.0) Basophils (%) (Auto) % (0.0-2.0) Differential Total Cells Counted 100 Neutrophils % (Manual) 87 % (45-75) H Lymphocytes % (Manual) 8 % (20-45) L Monocytes % (Manual) 3 % (1-10) Eosinophils % (Manual) 0 % (0-3) Basophils % (Manual) 0 % (0-2) Band Neutrophils 2 % (0-8) Platelet Estimate Adequate Platelet Morphology Normal Polychromasia 1+ Hypochromasia 1+ Anisocytosis 3+ Macrocytosis 1+ Sodium Level 145 MMOL/L (136-145) Potassium Level 4.0 MMOL/L (3.5-5.1) Chloride Level 104 MMOL/L (98-107) Carbon Dioxide Level 40 MMOL/L (21-32) H Anion Gap -1 mmol/L (5-15) L Blood Urea Nitrogen 13 mg/dL (7-18) Creatinine 0.2 MG/DL (0.55-1.30) L Estimat Glomerular Filtration Rate > 60 mL/min (>60) Glucose Level 102 MG/DL (74-106) Calcium Level 8.6 MG/DL (8.5-10.1) Magnesium Level 2.0 MG/DL (1.8-2.4) Total Bilirubin 0.5 MG/DL (0.2-1.0) Aspartate Amino Transf (AST/SGOT) 82 U/L (15-37) H Alanine Aminotransferase (ALT/SGPT) 83 U/L (12-78) H Alkaline Phosphatase 138 U/L (46-116) H Pro-B-Type Natriuretic Peptide 1139 pg/mL (0-125) H Total Protein 5.2 G/DL (6.4-8.2) L Albumin 1.7 G/DL (3.4-5.0) L Globulin 3.5 g/dL Albumin/Globulin Ratio 0.5 (1.0-2.7) L Arterial Blood pH 7.359 (7.350-7.450) Arterial Blood Partial Pressure CO2 85.2 mmHg (35.0-45.0) *H Arterial Blood Partial Pressure O2 73.4 mmHg (75.0-100.0) L Arterial Blood HCO3 46.9 mmol/L (22.0-26.0) *H Arterial Blood Oxygen Saturation 93.1 % (95-100) L Arterial Blood Base Excess 18.3 (-2-2) *H Jacob Test Positive Assessment/Plan Assessment/Plan Covid 19 PNA Bilateral PTX Secondary sinus tachycardia K.pneumonia PNA Acute respiratory failure with severe Hypoxia - slightly improved over past day. Diabetes mellitus with hyperglycemia due to steroids Transaminitis Mod protein/calorie malnutrition Dehydration/hypernatremia resolving CRITICAL & GUARDED Chest tube management/vent support Continuous cardiac monitoring Anticoagulation and steroid rx Titrate oxygen as able; prone. Vent settings adjusted by pulmonary; still c annot tolerate less than 100% FIO2. Anti-viral rx Protein suppl Free water replacement as needed Insulin cov'g by SS; levemir dose advanced further. Chuck Swain MD Aug 17, 2020 21:55
--- NOTE | 2020-08-17 22:00 | NUR ---
NURSE NOTES: Updates given to girlfriend. Patient remains lightly sedated; a RASS score of -2. On versed running at 10mg. Continues to nod to simple questions.
[2020-08-17] MEDS: Acetaminophen 650mg/20.3ml NG PRN (22:33)
[2020-08-18] VITALS (38 sets, daily range): BP systolic 92–125; BP diastolic 48–74
--- NOTE | 2020-08-18 | NUR ---
NURSE NOTES: Patient is more awake and tachycardic, developed fever of 101.1F rectally. Tylenol given, ice packs placed, cooling blanket adjusted, and Versed increased to 14mg to reach RASS -2.
--- NOTE | 2020-08-18 02:00 | NUR ---
NURSE NOTES: HR decreased from the 150s now to the 120s. Temp: 97.7F, O2sat:96% on 100% FiO2. Versed running at 14mgs
--- NOTE | 2020-08-18 04:00 | NUR ---
NURSE NOTES: Bed bath given, linens changed, turned and repositioned, suctioning and light oral care provided.
[2020-08-18] MEDS: Midazolam HCl 50mg/10ml vial 100 MG in NS 180 ML IV SCH ×3 (05:06→20:11)
[2020-08-18 05:31] LABS: HEMATOCRIT 30.1 % (42.0-52.0); HEMOGLOBIN 9.1 G/DL (14.2-18.0); MEAN CORPUSCULAR VOLUME 103 FL (80-99); PLATELET COUNT 194 K/UL (150-450); RED BLOOD COUNT 2.91 M/UL (4.70-6.10); RED CELL DISTRIBUTION WIDTH 20.9 % (11.6-14.8); WHITE BLOOD COUNT 15.4 K/UL (4.8-10.8)
[2020-08-18 05:58] LABS: ALANINE AMINOTRANSFERASE 83 U/L (12-78); ALBUMIN 1.7 G/DL (3.4-5.0); ALBUMIN/GLOBULIN RATIO 0.4 (1.0-2.7); ALKALINE PHOSPHATASE 168 U/L (46-116); ANION GAP -2 mmol/L (5-15); ASPARTATE AMINO TRANSFERASE 88 U/L (15-37); BILIRUBIN,TOTAL 0.4 MG/DL (0.2-1.0); BLOOD UREA NITROGEN 18 mg/dL (7-18); CALCIUM 8.4 MG/DL (8.5-10.1); CHLORIDE 105 MMOL/L (98-107); CREATININE 0.3 MG/DL (0.55-1.30); POTASSIUM 4.6 MMOL/L (3.5-5.1); SODIUM 146 MMOL/L (136-145)
[2020-08-18 05:59] LABS: CARBON DIOXIDE 40 MMOL/L (21-32)
[2020-08-18] MEDS: NovoLOG Insulin Flexpen SUBQ SCH ×4 (06:00→23:09)
--- NOTE | 2020-08-18 06:00 | NUR ---
NURSE NOTES: 5ml out of left thora-vent, 150ml out of right chest tube. In sinus rhythm and o2sats has been >90%. Versed at 14mgs
--- NOTE | 2020-08-18 07:11 | NUR ---
NURSE HAND-OFF REPORT: Latest Vital Signs: Temperature 99.3 , Pulse 91 , B/P 96 /62 , Respiratory Rate 23 , O2 SAT 99 , Mechanical Ventilator, O2 Flow Rate . Vital Sign Comment: Stable EKG Rhythm: Sinus Rhythm Rhythm change?: N MD Notified?: Ildefonso Diana at bedside for re-intubation MD Response: Latest Bradley Fall Score: 60 Fall Risk: High Risk Safety Measures: Call light Within Reach, Bed Alarm Zone 1, Side Rails Side Rails x3, Bed position Low and Locked. Fall Precautions: Yellow Socks Yellow Gown Door Sign Patient Fall Education Report given to .
--- NOTE | 2020-08-18 07:45 | NUR ---
NURSE NOTES: Dr. gabriel updated on the patient condition at the bedside, no orders given at this time.
--- NOTE | 2020-08-18 07:52 | General Progress Note ---
Subjective ROS Limited/Unobtainable: Yes Constitutional: Reports: malaise, weakness HEENT: Reports: no symptoms Cardiovascular: Reports: no symptoms Respiratory: Reports: shortness of breath Gastrointestinal/Abdominal: Reports: difficulty swallowing Genitourinary: Reports: no symptoms Neurologic/Psychiatric: Reports: anxiety Endocrine: Reports: no symptoms Hematologic/Lymphatic: Reports: no symptoms Allergies: Coded Allergies: No Known Allergies (Unverified , 03/08/17) All Systems: reviewed and negative except above Subjective remains on the vent. sedated. had episode of svt and desaturation when family visited yesterday. no fevers. cxr with stable ptx and extensive infiltrates Objective Last 24 Hour Vital Signs Date Time Temp Pulse Resp B/P (MAP) Pulse Ox O2 Delivery O2 Flow Rate FiO2 08/18/20 07:00 91 23 96/62 (73) 08/18/20 06:30 26 Mechanical Ventilator 100 08/18/20 06:00 96 25 102/70 (81) 99 08/18/20 05:30 26 Mechanical Ventilator 100 08/18/20 05:06 26 Mechanical Ventilator 100 08/18/20 05:00 99 24 96/64 (75) 98 08/18/20 04:30 26 Mechanical Ventilator 100 08/18/20 04:00 Mechanical Ventilator 08/18/20 04:00 100 08/18/20 04:00 99.3 110 28 102/65 (77) 95 08/18/20 03:30 26 Mechanical Ventilator 100 08/18/20 03:10 117 08/18/20 03:00 117 28 115/59 (77) 97 08/18/20 02:59 119 31 100 08/18/20 02:30 26 Mechanical Ventilator 100 08/18/20 02:00 124 29 99/60 (73) 96 08/18/20 01:30 26 Mechanical Ventilator 100 08/18/20 01:00 138 32 93/61 (72) 93 08/18/20 00:30 26 Mechanical Ventilator 100 08/18/20 00:00 Mechanical Ventilator 08/18/20 00:00 100 08/18/20 00:00 101.5 151 31 106/62 (77) 85 08/17/20 23:30 26 Mechanical Ventilator 100 08/17/20 23:19 101.0 08/17/20 23:15 26 Mechanical Ventilator 100 08/17/20 23:14 153 08/17/20 23:00 155 40 115/66 (82) 71 08/17/20 23:00 26 Mechanical Ventilator 100 08/17/20 22:45 27 Mechanical Ventilator 100 08/17/20 22:44 157 36 100 08/17/20 22:30 26 Mechanical Ventilator 100 08/17/20 22:16 26 Mechanical Ventilator 100 08/17/20 22:00 154 31 159/80 (106) 74 08/17/20 21:23 26 Mechanical Ventilator 100 08/17/20 21:16 26 Mechanical Ventilator 100 08/17/20 21:00 148 32 128/70 (89) 81 08/17/20 20:16 34 Mechanical Ventilator 100 08/17/20 20:00 Mechanical Ventilator 08/17/20 20:00 98.6 137 33 113/58 (76) 87 08/17/20 20:00 100 08/17/20 19:21 139 08/17/20 19:16 30 Mechanical Ventilator 100 08/17/20 19:00 138 30 131/70 (90) 81 08/17/20 18:55 140 31 100 08/17/20 18:16 30 Mechanical Ventilator 100 08/17/20 18:00 133 29 121/67 (85) 81 08/17/20 17:16 28 Mechanical Ventilator 100 08/17/20 17:00 127 28 134/74 (94) 77 08/17/20 16:16 30 Mechanical Ventilator 100 08/17/20 16:00 100 08/17/20 16:00 97.2 117 28 102/50 (67) 08/17/20 16:00 Mechanical Ventilator 08/17/20 16:00 110 08/17/20 15:16 27 Mechanical Ventilator 100 08/17/20 15:08 112 28 100 08/17/20 15:00 109 27 105/51 (69) 99 08/17/20 14:16 26 Mechanical Ventilator 100 08/17/20 14:00 106 27 103/53 (70) 08/17/20 13:16 26 Mechanical Ventilator 100 08/17/20 13:00 103 27 104/55 (71) 100 08/17/20 12:16 26 Mechanical Ventilator 100 08/17/20 12:00 96.0 108 25 107/61 (76) 08/17/20 12:00 Mechanical Ventilator 08/17/20 12:00 100 08/17/20 12:00 110 08/17/20 11:28 23 Mechanical Ventilator 100 08/17/20 11:18 113 28 100 08/17/20 11:16 26 Mechanical Ventilator 100 08/17/20 11:00 117 26 112/69 (83) 99 08/17/20 10:16 26 Mechanical Ventilator 100 08/17/20 10:00 123 26 114/64 (81) 99 08/17/20 09:16 27 Mechanical Ventilator 100 08/17/20 09:00 120 27 124/71 (88) 98 08/17/20 08:16 26 Mechanical Ventilator 100 08/17/20 08:00 114 08/17/20 08:00 100 08/17/20 08:00 Mechanical Ventilator 08/17/20 08:00 97.3 118 26 111/58 (75) 97 l Intake and Output 08/17/20 08/18/20 19:00 07:00 Intake Total 810 ml 785.666 ml Output Total 521 ml 685 ml Balance 289 ml 100.666 ml Free Water 90 ml IV Total 240 ml 305.666 ml Tube Feeding 480 ml 480 ml Output Urine Total 440 ml 500 ml Stool Total 20 ml 30 ml Chest Tube Drainage Total 61 ml 155 ml Laboratory Tests 08/17/20 10:12: Arterial Blood pH 7.359, Arterial Blood Partial Pressure CO2 85.2*H, Arterial Blood Partial Pressure O2 73.4L, Arterial Blood HCO3 46.9*H, Arterial Blood O xygen Saturation 93.1L, Arterial Blood Base Excess 18.3*H, Jacob Test Positive 08/18/20 04:00: White Blood Count 15.4H, Red Blood Count 2.91L, Hemoglobin 9.1L, Hematocrit 30.1L, Mean Corpuscular Volume 103H, Mean Corpuscular Hemoglobin 31.4H, Mean Corpuscular Hemoglobin Concent 30.4L, Red Cell Distribution Width 20.9H, Platelet Count 194, Mean Platelet Volume 7.3, Neutrophils (%) (Auto) , Lymphocytes (%) (Auto) , Monocytes (%) (Auto) , Eosinophils (%) (Auto) , Basophils (%) (Auto) , Neutrophils % (Manual) [Pending], Lymphocytes % (Manual) [Pending], Platelet Estimate [Pending], Platelet Morphology [Pending], Sodium Level 146H, Potassium Level 4.6, Chloride Level 105, Carbon Dioxide Level 40H, Anion Gap -2L, Blood Urea Nitrogen 18, Creatinine 0.3L, Estimat Glomerular Filtration Rate > 60, Glucose Level 111H, Calcium Level 8.4L, Total Bilirubin 0.4, Aspartate Amino Transf (AST/SGOT) 88H, Alanine Aminotransferase (ALT/SGPT) 83H, Alkaline Phosphatase 168H, Total Protein 5.6L, Albumin 1.7L, Globulin 3.9, Albumin/Globulin Ratio 0.4L Height (Feet): 5 Height (Inches): 6.00 Weight (Pounds): 209 Objective deferred Assessment/Plan Problem List: (1) Coronavirus infection ICD Codes: B34.2 - Coronavirus infection, unspecified SNOMED: 681275484 (2) Respiratory failure ICD Codes: J96.90 - Respiratory failure, unspecified, unspecified whether with hypoxia or hypercapnia SNOMED: 123535045 (3) Hypercapnia ICD Codes: R06.89 - Other abnormalities of breathing SNOMED: 30425223, 932480758 (4) Hypoxia ICD Codes: R09.02 - Hypoxemia SNOMED: 869901240 (5) Asthma ICD Codes: J45.909 - Unspecified asthma, uncomplicated SNOMED: 257728458, 852556546 (6) Pneumothorax ICD Codes: J93.9 - Pneumothorax, unspecified SNOMED: 88717780 Status: progressing, not improved Assessment/Plan: vent support wean fio2 and peep as able chest tube management per surgery resp care/suctioning as needed monitor for bleeding. off lovenox due to oral bleeding monitor plts- trending up scd anxiolytics remains critical and guarded clinically no improvement trying to transfer for high level of care Rolando Cherry MD Aug 18, 2020 07:52
[2020-08-18] MEDS: Levemir Flexpen SUBQ SCH ×2 (09:00→20:11)
[2020-08-18] MEDS: Vitamin B Complex Tab NG SCH (10:07)
[2020-08-18] MEDS: Docusate 100mg/10ml Liq NG SCH ×2 (10:07→20:11)
--- NOTE | 2020-08-18 10:08 | Infectious Diseases Prog Note ---
Assessment/Plan Assessment/Plan A: 1. COVID-19 pneumonia. 2. History of asthma. 3. Elevated liver function tests. 4. Fatty liver 5. DM with hyperglycemia 6. Leukocytosis worsening 7. Hypoxic respiratory failure 8. Gram negative pneumonia 9. Positive blood culture with CoANS PLAN: 1. Continue Methylprednisone 2. .Poor prognosis, become DNR 3. case was D/W RN Subjective ROS Limited/Unobtainable: Yes Constitutional: Reports: fever, other - zx=992.5 Allergies: Coded Allergies: No Known Allergies (Unverified , 03/08/17) Objective Last 24 Hour Vital Signs Date Time Temp Pulse Resp B/P (MAP) Pulse Ox O2 Delivery O2 Flow Rate FiO2 08/18/20 08:30 67 28 125/66 (85) 73 08/18/20 08:00 100 08/18/20 08:00 97.2 91 23 98/50 (66) 08/18/20 08:00 Mechanical Ventilator 08/18/20 08:00 90 08/18/20 07:30 90 22 101/56 (71) 99 08/18/20 07:00 91 23 96/62 (73) 08/18/20 06:30 26 Mechanical Ventilator 100 08/18/20 06:00 96 25 102/70 (81) 99 08/18/20 05:30 26 Mechanical Ventilator 100 08/18/20 05:06 26 Mechanical Ventilator 100 08/18/20 05:00 99 24 96/64 (75) 98 08/18/20 04:30 26 Mechanical Ventilator 100 08/18/20 04:00 Mechanical Ventilator 08/18/20 04:00 100 08/18/20 04:00 99.3 110 28 102/65 (77) 95 08/18/20 03:30 26 Mechanical Ventilator 100 08/18/20 03:10 117 08/18/20 03:00 117 28 115/59 (77) 97 08/18/20 02:59 119 31 100 08/18/20 02:30 26 Mechanical Ventilator 100 08/18/20 02:00 124 29 99/60 (73) 96 08/18/20 01:30 26 Mechanical Ventilator 100 08/18/20 01:00 138 32 93/61 (72) 93 08/18/20 00:30 26 Mechanical Ventilator 100 08/18/20 00:00 Mechanical Ventilator 08/18/20 00:00 100 08/18/20 00:00 101.5 151 31 106/62 (77) 85 08/17/20 23:30 26 Mechanical Ventilator 100 08/17/20 23:19 101.0 08/17/20 23:15 26 Mechanical Ventilator 100 08/17/20 23:14 153 08/17/20 23:00 155 40 115/66 (82) 71 08/17/20 23:00 26 Mechanical Ventilator 100 08/17/20 22:45 27 Mechanical Ventilator 100 08/17/20 22:44 157 36 100 08/17/20 22:30 26 Mechanical Ventilator 100 08/17/20 22:16 26 Mechanical Ventilator 100 08/17/20 22:00 154 31 159/80 (106) 74 08/17/20 21:23 26 Mechanical Ventilator 100 08/17/20 21:16 26 Mechanical Ventilator 100 08/17/20 21:00 148 32 128/70 (89) 81 08/17/20 20:16 34 Mechanical Ventilator 100 08/17/20 20:00 Mechanical Ventilator 08/17/20 20:00 98.6 137 33 113/58 (76) 87 08/17/20 20:00 100 08/17/20 19:21 139 08/17/20 19:16 30 Mechanical Ventilator 100 08/17/20 19:00 138 30 131/70 (90) 81 08/17/20 18:55 140 31 100 08/17/20 18:16 30 Mechanical Ventilator 100 08/17/20 18:00 133 29 121/67 (85) 81 08/17/20 17:16 28 Mechanical Ventilator 100 08/17/20 17:00 127 28 134/74 (94) 77 08/17/20 16:16 30 Mechanical Ventilator 100 08/17/20 16:00 100 08/17/20 16:00 97.2 117 28 102/50 (67) 08/17/20 16:00 Mechanical Ventilator 08/17/20 16:00 110 08/17/20 15:16 27 Mechanical Ventilator 100 08/17/20 15:08 112 28 100 08/17/20 15:00 109 27 105/51 (69) 99 08/17/20 14:16 26 Mechanical Ventilator 100 08/17/20 14:00 106 27 103/53 (70) 08/17/20 13:16 26 Mechanical Ventilator 100 08/17/20 13:00 103 27 104/55 (71) 100 08/17/20 12:16 26 Mechanical Ventilator 100 08/17/20 12:00 96.0 108 25 107/61 (76) 08/17/20 12:00 Mechanical Ventilator 08/17/20 12:00 100 08/17/20 12:00 110 08/17/20 11:28 23 Mechanical Ventilator 100 08/17/20 11:18 113 28 100 08/17/20 11:16 26 Mechanical Ventilator 100 08/17/20 11:00 117 26 112/69 (83) 99 08/17/20 10:16 26 Mechanical Ventilator 100 Height (Feet): 5 Height (Inches): 6.00 Weight (Pounds): 209 HEENT: other - orally intubated Respiratory/Chest: other - on ventilator, GYL8=279%, chest tubes Cardiovascular: normal rate Abdomen: soft, non tender, other - NG tube Extremities: other - hands edema Neurologic/Psychiatric: other - sedated Laboratory Tests Test 08/17/20 10:12 08/18/20 04:00 08/18/20 09:23 Arterial Blood pH 7.359 (7.350-7.450) 7.391 (7.350-7.450) Arterial Blood Partial Pressure CO2 85.2 mmHg (35.0-45.0) *H 76.5 mmHg (35.0-45.0) *H Arterial Blood Partial Pressure O2 73.4 mmHg (75.0-100.0) L 62.6 mmHg (75.0-100.0) L Arterial Blood HCO3 46.9 mmol/L (22.0-26.0) *H 45.4 mmol/L (22.0-26.0) *H Arterial Blood Oxygen Saturation 93.1 % (95-100) L 90.6 % (95-100) L Arterial Blood Base Excess 18.3 (-2-2) *H 17.7 (-2-2) *H Jacob Test Positive Positive White Blood Count 15.4 K/UL (4.8-10.8) H Red Blood Count 2.91 M/UL (4.70-6.10) L Hemoglobin 9.1 G/DL (14.2-18.0) L Hematocrit 30.1 % (42.0-52.0) L Mean Corpuscular Volume 103 FL (80-99) H Mean Corpuscular Hemoglobin 31.4 PG (27.0-31.0) H Mean Corpuscular Hemoglobin Concent 30.4 G/DL (32.0-36.0) L Red Cell Distribution Width 20.9 % (11.6-14.8) H Platelet Count 194 K/UL (150-450) Mean Platelet Volume 7.3 FL (6.5-10.1) Neutrophils (%) (Auto) % (45.0-75.0) Lymphocytes (%) (Auto) % (20.0-45.0) Monocytes (%) (Auto) % (1.0-10.0) Eosinophils (%) (Auto) % (0.0-3.0) Basophils (%) (Auto) % (0.0-2.0) Differential Total Cells Counted 100 Neutrophils % (Manual) 87 % (45-75) H Lymphocytes % (Manual) 6 % (20-45) L Monocytes % (Manual) 4 % (1-10) Eosinophils % (Manual) 0 % (0-3) Basophils % (Manual) 0 % (0-2) Band Neutrophils 3 % (0-8) Nucleated Red Blood Cells 1 /100 WBC Platelet Estimate Adequate Platelet Morphology See comment Giant Platelets Occasional Hypochromasia 1+ Anisocytosis 2+ Macrocytosis 1+ Sodium Level 146 MMOL/L (136-145) H Potassium Level 4.6 MMOL/L (3.5-5.1) Chloride Level 105 MMOL/L (98-107) Carbon Dioxide Level 40 MMOL/L (21-32) H Anion Gap -2 mmol/L (5-15) L Blood Urea Nitrogen 18 mg/dL (7-18) Creatinine 0.3 MG/DL (0.55-1.30) L Estimat Glomerular Filtration Rate > 60 mL/min (>60) Glucose Level 111 MG/DL (74-106) H Calcium Level 8.4 MG/DL (8.5-10.1) L Total Bilirubin 0.4 MG/DL (0.2-1.0) Aspartate Amino Transf (AST/SGOT) 88 U/L (15-37) H Alanine Aminotransferase (ALT/SGPT) 83 U/L (12-78) H Alkaline Phosphatase 168 U/L (46-116) H Total Protein 5.6 G/DL (6.4-8.2) L Albumin 1.7 G/DL (3.4-5.0) L Globulin 3.9 g/dL Albumin/Globulin Ratio 0.4 (1.0-2.7) L Current Medications Medications (Trade) Dose Ordered Sig/Milagro Route PRN Reason Start Time Stop Time Status Last Admin Dose Admin Acetaminophen (Tylenol) 650 mg Q4H PRN RECTAL Mild Pain (Pain Scale 1-3) 07/24/20 18:15 08/23/20 18:14 07/25/20 11:49 Acetaminophen (Tylenol) 650 mg Q6H PRN NG Mild Pain (Pain Scale 1-3) 07/26/20 08:30 08/25/20 08:29 08/15/20 15:15 Acetaminophen (Tylenol) 650 mg Q6H PRN NG Temp >100.5 07/26/20 08:30 08/25/20 08:29 08/17/20 22:33 Chlorhexidine Gluconate (Marycarmen-Hex 2%) 1 applic DAILY@2000 TOPIC 07/20/20 20:00 10/18/20 19:59 08/17/20 21:22 Dextrose (Dextrose 50%) 25 ml Q30M PRN IV Hypoglycemia 07/23/20 13:15 10/21/20 13:14 Dextrose (Dextrose 50%) 50 ml Q30M PRN IV Hypoglycemia 07/23/20 13:15 10/21/20 13:14 08/15/20 20:26 Dextrose/Sodium Chloride 1,000 ml @ 100 mls/hr Q10H PRN IV WHILE PRONING ONLY 07/24/20 17:45 08/23/20 17:44 08/10/20 05:33 Docusate Sodium (Colace) 100 mg EVERY 12 HOURS NG 07/27/20 21:00 08/26/20 20:59 08/17/20 21:22 Famotidine (Pepcid I.v.) 20 mg Q12HR IVP 08/04/20 21:00 09/03/20 20:59 08/17/20 21:22 Insulin Aspart (NovoLOG) EVERY 6 HOURS SUBQ 07/28/20 00:00 10/21/20 15:59 08/17/20 23:20 Insulin Detemir (Levemir) 26 units EVERY 12 HOURS SUBQ 07/26/20 09:00 10/20/20 08:59 08/17/20 21:00 Midazolam HCl 100 mg/Sodium Chloride 200 ml @ 0 mls/hr Q24H IV 08/12/20 18:00 08/19/20 17:59 08/18/20 05:06 Ondansetron HCl (Zofran) 4 mg Q6H PRN IVP Nausea & Vomiting 08/15/20 15:45 09/14/20 15:44 08/15/20 15:54 Vitamin B Complex (Vitamin B Complex) 1 tab DAILY NG 07/24/20 09:00 10/09/20 08:59 08/17/20 08:43 Mian Wing MD Aug 18, 2020 10:08
--- NOTE | 2020-08-18 10:35 | NUR ---
NURSE NOTES: Dr. Wing updated on the patient wbc count of 15.4 and temperature of 97.2F taken rectally. made aware the patient ghas no antibiotics on the medications list, also updated on the patient chest xray demonstrating bilateral infiltrates.
--- NOTE | 2020-08-18 11:20 | NUR ---
NURSE NOTES: Dr. Price updated on the patient ABG results, ventilator aetting are AC 26, TV: 500, FIo2 100%, peep 16. no verbal orders given to chance setting, will maintain ventilator settings, current saturations are 97-99%.
--- NOTE | 2020-08-18 12:07 | Pulmonology Progress Note ---
Subjective ROS Limited/Unobtainable: Yes Constitutional: Reports: fever, other - bo=553.5 Gastrointestinal/Abdominal: Denies: nausea, vomiting, diarrhea Musculoskeletal: Reports: pain Allergies: Coded Allergies: No Known Allergies (Unverified , 03/08/17) All Systems: reviewed and negative except above Subjective ct in place remains on high oxygen and PEEP reduced and patient desaturated on vent full code d/w nursing sedated tachycardia Objective Last 24 Hour Vital Signs Date Time Temp Pulse Resp B/P (MAP) Pulse Ox O2 Delivery O2 Flow Rate FiO2 08/18/20 11:00 100 29 95/55 (68) 95 08/18/20 10:51 99 28 100 08/18/20 10:30 95 26 104/60 (75) 97 08/18/20 10:00 96 26 92/60 (71) 97 08/18/20 09:30 97 20 95/64 (74) 08/18/20 09:00 95 24 100/58 (72) 96 08/18/20 08:30 67 28 125/66 (85) 73 08/18/20 08:00 100 08/18/20 08:00 97.2 91 23 98/50 (66) 08/18/20 08:00 Mechanical Ventilator 08/18/20 08:00 90 08/18/20 07:30 90 22 101/56 (71) 99 08/18/20 07:25 98 26 100 08/18/20 07:00 91 23 96/62 (73) 08/18/20 06:30 26 Mechanical Ventilator 100 08/18/20 06:00 96 25 102/70 (81) 99 08/18/20 05:30 26 Mechanical Ventilator 100 08/18/20 05:06 26 Mechanical Ventilator 100 08/18/20 05:00 99 24 96/64 (75) 98 08/18/20 04:30 26 Mechanical Ventilator 100 08/18/20 04:00 Mechanical Ventilator 08/18/20 04:00 100 08/18/20 04:00 99.3 110 28 102/65 (77) 95 08/18/20 03:30 26 Mechanical Ventilator 100 08/18/20 03:10 117 08/18/20 03:00 117 28 115/59 (77) 97 08/18/20 02:59 119 31 100 08/18/20 02:30 26 Mechanical Ventilator 100 08/18/20 02:00 124 29 99/60 (73) 96 08/18/20 01:30 26 Mechanical Ventilator 100 08/18/20 01:00 138 32 93/61 (72) 93 08/18/20 00:30 26 Mechanical Ventilator 100 08/18/20 00:00 Mechanical Ventilator 08/18/20 00:00 100 08/18/20 00:00 101.5 151 31 106/62 (77) 85 08/17/20 23:30 26 Mechanical Ventilator 100 08/17/20 23:19 101.0 08/17/20 23:15 26 Mechanical Ventilator 100 08/17/20 23:14 153 08/17/20 23:00 155 40 115/66 (82) 71 08/17/20 23:00 26 Mechanical Ventilator 100 08/17/20 22:45 27 Mechanical Ventilator 100 08/17/20 22:44 157 36 100 08/17/20 22:30 26 Mechanical Ventilator 100 08/17/20 22:16 26 Mechanical Ventilator 100 08/17/20 22:00 154 31 159/80 (106) 74 08/17/20 21:23 26 Mechanical Ventilator 100 08/17/20 21:16 26 Mechanical Ventilator 100 08/17/20 21:00 148 32 128/70 (89) 81 08/17/20 20:16 34 Mechanical Ventilator 100 08/17/20 20:00 Mechanical Ventilator 08/17/20 20:00 98.6 137 33 113/58 (76) 87 08/17/20 20:00 100 08/17/20 19:21 139 08/17/20 19:16 30 Mechanical Ventilator 100 08/17/20 19:00 138 30 131/70 (90) 81 08/17/20 18:55 140 31 100 08/17/20 18:16 30 Mechanical Ventilator 100 08/17/20 18:00 133 29 121/67 (85) 81 08/17/20 17:16 28 Mechanical Ventilator 100 08/17/20 17:00 127 28 134/74 (94) 77 08/17/20 16:16 30 Mechanical Ventilator 100 08/17/20 16:00 100 08/17/20 16:00 97.2 117 28 102/50 (67) 08/17/20 16:00 Mechanical Ventilator 08/17/20 16:00 110 08/17/20 15:16 27 Mechanical Ventilator 100 08/17/20 15:08 112 28 100 08/17/20 15:00 109 27 105/51 (69) 99 08/17/20 14:16 26 Mechanical Ventilator 100 08/17/20 14:00 106 27 103/53 (70) 08/17/20 13:16 26 Mechanical Ventilator 100 08/17/20 13:00 103 27 104/55 (71) 100 08/17/20 12:16 26 Mechanical Ventilator 100 Intake and Output 08/17/20 08/18/20 19:00 07:00 Intake Total 810 ml 785.666 ml Output Total 521 ml 685 ml Balance 289 ml 100.666 ml Free Water 90 ml IV Total 240 ml 305.666 ml Tube Feeding 480 ml 480 ml Output Urine Total 440 ml 500 ml Stool Total 20 ml 30 ml Chest Tube Drainage Total 61 ml 155 ml Objective deferred due to COVID Laboratory Tests 08/18/20 04:00: White Blood Count 15.4H, Red Blood Count 2.91L, Hemoglobin 9.1L, Hematocrit 30.1L, Mean Corpuscular Volume 103H, Mean Corpuscular Hemoglobin 31.4H, Mean Corpuscular Hemoglobin Concent 30.4L, Red Cell Distribution Width 20.9H, Platelet Count 194, Mean Platelet Volume 7.3, Neutrophils (%) (Auto) , Lymphocytes (%) (Auto) , Monocytes (%) (Auto) , Eosinophils (%) (Auto) , Basophils (%) (Auto) , Differential Total Cells Counted 100, Neutrophils % (Manual) 87H, Lymphocytes % (Manual) 6L, Monocytes % (Manual) 4, Eosinophils % (Manual) 0, Basophils % (Manual) 0, Band Neutrophils 3, Nucleated Red Blood Cells 1, Platelet Estimate Adequate, Platelet Morphology See comment, Giant Platelets Occasional, Hypochromasia 1+, Anisocytosis 2+, Macrocytosis 1+, Sodium Level 146H, Potassium Level 4.6, Chloride Level 105, Carbon Dioxide Level 40H, Anion Gap -2L, Blood Urea Nitrogen 18, Creatinine 0.3L, Estimat Glomerular Filtration Rate > 60, Glucose Level 111H, Calcium Level 8.4L, Total Bilirubin 0.4, Aspartate Amino Transf (AST/SGOT) 88H, Alanine Aminotransferase (ALT/SGPT) 83H, Alkaline Phosphatase 168H, Total Protein 5.6L, Albumin 1.7L, Globulin 3.9, Albumin/Globulin Ratio 0.4L 08/18/20 09:23: Arterial Blood pH 7.391, Arterial Blood Partial Pressure CO2 76.5*H, Arterial Blood Partial Pressure O2 62.6L, Arterial Blood HCO3 45.4*H, Arterial Blood Oxygen Saturation 90.6L, Arterial Blood Base Excess 17.7*H, Jacob Test Positive Current Medications Medications (Trade) Dose Ordered Sig/Milagro Route PRN Reason Start Time Stop Time Status Last Admin Dose Admin Acetaminophen (Tylenol) 650 mg Q4H PRN RECTAL Mild Pain (Pain Scale 1-3) 07/24/20 18:15 08/23/20 18:14 07/25/20 11:49 Acetaminophen (Tylenol) 650 mg Q6H PRN NG Mild Pain (Pain Scale 1-3) 07/26/20 08:30 08/25/20 08:29 08/15/20 15:15 Acetaminophen (Tylenol) 650 mg Q6H PRN NG Temp >100.5 07/26/20 08:30 08/25/20 08:29 08/17/20 22:33 Chlorhexidine Gluconate (Marycarmen-Hex 2%) 1 applic DAILY@2000 TOPIC 07/20/20 20:00 10/18/20 19:59 08/17/20 21:22 Dextrose (Dextrose 50%) 25 ml Q30M PRN IV Hypoglycemia 07/23/20 13:15 10/21/20 13:14 Dextrose (Dextrose 50%) 50 ml Q30M PRN IV Hypoglycemia 07/23/20 13:15 10/21/20 13:14 08/15/20 20:26 Dextrose/Sodium Chloride 1,000 ml @ 100 mls/hr Q10H PRN IV WHILE PRONING ONLY 07/24/20 17:45 08/23/20 17:44 08/10/20 05:33 Docusate Sodium (Colace) 100 mg EVERY 12 HOURS NG 07/27/20 21:00 08/26/20 20:59 08/18/20 10:07 Famotidine (Pepcid I.v.) 20 mg Q12HR IVP 08/04/20 21:00 09/03/20 20:59 08/18/20 10:07 Insulin Aspart (NovoLOG) EVERY 6 HOURS SUBQ 07/28/20 00:00 10/21/20 15:59 08/17/20 23:20 Insulin Detemir (Levemir) 26 units EVERY 12 HOURS SUBQ 07/26/20 09:00 10/20/20 08:59 08/18/20 09:00 Midazolam HCl 100 mg/Sodium Chloride 200 ml @ 0 mls/hr Q24H IV 08/12/20 18:00 08/19/20 17:59 08/18/20 05:06 Ondansetron HCl (Zofran) 4 mg Q6H PRN IVP Nausea & Vomiting 08/15/20 15:45 09/14/20 15:44 08/15/20 15:54 Vitamin B Complex (Vitamin B Complex) 1 tab DAILY NG 07/24/20 09:00 10/09/20 08:59 08/18/20 10:07 Assessment/Plan Assessment/Plan acute hypoxemic respiratory failure COVID pneumonia Asthma elevated liver enzymes DNR ARDS with fibrosing phase pneumothorax bilateral chest tubes elevated TG subq emphysema PLAN not improved; still on high o2 and peep/ sats >90 CT per surgery / monitor sq emphysema imaging PRN reviewed unable to trach at present monitor acid base status respiratory care ID noted DVT prophylaxis prognosis poor overall for meaningful recovery monitor respiratory status for change not safe for trach placement medications/laboratory data/nursing notes/ICU care reviewed in detail note reviewed and edited care discussed with RN and RT ICU time spent >40 minutes Elfego Price MD Aug 18, 2020 12:07
--- NOTE | 2020-08-18 12:30 | NUR ---
NURSE NOTES: Dr. gage updated on the patient chest tubes, right chest tube has a continuous bubbling at the water chamber as well as the suction chamber, the patient collections chamber has serosanguineous fluid. left Thora-vent is connected to a chest tube with water seal having intermittent bubbling and continuos bubbling. there is little to no drainage on the left chest tube collection chamber. both chamber are connected to wall suction and are at low intermittent suction.w
--- NOTE | 2020-08-18 12:44 | NUR ---
RADIOLOGY DEPT., CHEST X-RAY DONE.-P.DYE
--- NOTE | 2020-08-18 13:02 | Diagnostic Imaging Report ---
Procedure: XRAY Chest 1v Reason for study: Shortness of breath. Comparison films: 08/17/2020. FINDINGS: Bilateral chest tubes remain in place. Small bilateral pneumothoraces not significantly changed. Endotracheal tube and NG tube remain in place. Subcutaneous emphysema in the supraclavicular regions also stable. Bilateral diffuse hazy infiltrates are unchanged. Cardiac and mediastinal silhouette are within normal limits. CP angles are sharp. The bony thorax appear unremarkable. IMPRESSION: NO SIGNIFICANT CHANGE COMPARED TO PREVIOUS EXAM.
--- NOTE | 2020-08-18 15:42 | NUR ---
[employer] SI: Respiratory Failure, Covid-PNA, ETT/Vent Support, pneumothorax-bilateral chest tubes to suction T 97.2 (ax) , HR 100, RR 23, BP 98/50 AC 26, TV 500, PEEP 12, FiO2 100%, O2 Sat 96% WBC 15.4, CO2 40, anion gap -2, creatinine 0.3 Cxray no significant change compared to previous exam IS: Midazolam GTT Pepcid IV q 12 h D5/NS at 100cc/hr ICU Status
--- NOTE | 2020-08-18 18:15 | NUR ---
NURSE NOTES: bed mattress placed on patient and set to setting of 5, weight on the bed scale indicated the patient weight is 92.9kg. patient remains of versed at 14mg/hr at at rate of 28ml/hr. tube feeding remains at 40ml/hr running thorough NG-tube.
--- NOTE | 2020-08-18 18:25 | Surgery Progress Note ---
Surgery Progress Note Subjective Procedure Performed left chest tube insertion Additional Comments cxr stable sedated today tubes reviewed with rn checked labs noted Objective Last 24 Hour Vital Signs Date Time Temp Pulse Resp B/P (MAP) Pulse Ox O2 Delivery O2 Flow Rate FiO2 08/18/20 16:00 100 08/18/20 16:00 Mechanical Ventilator 08/18/20 16:00 97.2 109 29 112/65 (81) 08/18/20 16:00 106 08/18/20 15:30 110 29 109/65 (80) 98 08/18/20 15:09 114 27 100 08/18/20 15:00 112 30 113/63 (80) 98 08/18/20 14:00 121 33 110/62 (78) 94 08/18/20 13:00 113 28 109/59 (76) 99 08/18/20 12:46 29 Mechanical Ventilator 100 08/18/20 12:00 110 32 109/65 (80) 97 08/18/20 12:00 100 08/18/20 12:00 117 08/18/20 12:00 Mechanical Ventilator 08/18/20 11:30 97.4 107 31 101/48 (65) 92 08/18/20 11:00 100 29 95/55 (68) 95 08/18/20 10:51 99 28 100 08/18/20 10:30 95 26 104/60 (75) 97 08/18/20 10:00 96 26 92/60 (71) 97 08/18/20 09:30 97 20 95/64 (74) 08/18/20 09:00 95 24 100/58 (72) 96 08/18/20 08:30 67 28 125/66 (85) 73 08/18/20 08:00 100 08/18/20 08:00 97.2 91 23 98/50 (66) 08/18/20 08:00 Mechanical Ventilator 08/18/20 08:00 90 08/18/20 07:30 90 22 101/56 (71) 99 08/18/20 07:25 98 26 100 08/18/20 07:00 91 23 96/62 (73) 08/18/20 06:30 26 Mechanical Ventilator 100 08/18/20 06:00 96 25 102/70 (81) 99 08/18/20 05:30 26 Mechanical Ventilator 100 08/18/20 05:06 26 Mechanical Ventilator 100 08/18/20 05:00 99 24 96/64 (75) 98 08/18/20 04:30 26 Mechanical Ventilator 100 08/18/20 04:00 Mechanical Ventilator 08/18/20 04:00 100 08/18/20 04:00 99.3 110 28 102/65 (77) 95 08/18/20 03:30 26 Mechanical Ventilator 100 08/18/20 03:10 117 08/18/20 03:00 117 28 115/59 (77) 97 08/18/20 02:59 119 31 100 08/18/20 02:30 26 Mechanical Ventilator 100 08/18/20 02:00 124 29 99/60 (73) 96 08/18/20 01:30 26 Mechanical Ventilator 100 08/18/20 01:00 138 32 93/61 (72) 93 08/18/20 00:30 26 Mechanical Ventilator 100 08/18/20 00:00 Mechanical Ventilator 08/18/20 00:00 100 08/18/20 00:00 101.5 151 31 106/62 (77) 85 08/17/20 23:30 26 Mechanical Ventilator 100 08/17/20 23:19 101.0 08/17/20 23:15 26 Mechanical Ventilator 100 08/17/20 23:14 153 08/17/20 23:00 155 40 115/66 (82) 71 08/17/20 23:00 26 Mechanical Ventilator 100 08/17/20 22:45 27 Mechanical Ventilator 100 08/17/20 22:44 157 36 100 08/17/20 22:30 26 Mechanical Ventilator 100 08/17/20 22:16 26 Mechanical Ventilator 100 08/17/20 22:00 154 31 159/80 (106) 74 08/17/20 21:23 26 Mechanical Ventilator 100 08/17/20 21:16 26 Mechanical Ventilator 100 08/17/20 21:00 148 32 128/70 (89) 81 08/17/20 20:16 34 Mechanical Ventilator 100 08/17/20 20:00 Mechanical Ventilator 08/17/20 20:00 98.6 137 33 113/58 (76) 87 08/17/20 20:00 100 08/17/20 19:21 139 08/17/20 19:16 30 Mechanical Ventilator 100 08/17/20 19:00 138 30 131/70 (90) 81 08/17/20 18:55 140 31 100 I&O Intake and Output 08/17/20 08/18/20 19:00 07:00 Intake Total 810 ml 785.666 ml Output Total 521 ml 685 ml Balance 289 ml 100.666 ml Free Water 90 ml IV Total 240 ml 305.666 ml Tube Feeding 480 ml 480 ml Output Urine Total 440 ml 500 ml Stool Total 20 ml 30 ml Chest Tube Drainage Total 61 ml 155 ml Dressing: saturated Cardiovascular: RSR, other Respiratory: decreased breath sounds, other Abdomen: non-tender, present bowel sounds Extremities: edema, no cyanosis Laboratory Tests Test 08/18/20 04:00 08/18/20 05:16 08/18/20 09:23 White Blood Count 15.4 K/UL (4.8-10.8) H Red Blood Count 2.91 M/UL (4.70-6.10) L Hemoglobin 9.1 G/DL (14.2-18.0) L Hematocrit 30.1 % (42.0-52.0) L Mean Corpuscular Volume 103 FL (80-99) H Mean Corpuscular Hemoglobin 31.4 PG (27.0-31.0) H Mean Corpuscular Hemoglobin Concent 30.4 G/DL (32.0-36.0) L Red Cell Distribution Width 20.9 % (11.6-14.8) H Platelet Count 194 K/UL (150-450) Mean Platelet Volume 7.3 FL (6.5-10.1) Neutrophils (%) (Auto) % (45.0-75.0) Lymphocytes (%) (Auto) % (20.0-45.0) Monocytes (%) (Auto) % (1.0-10.0) Eosinophils (%) (Auto) % (0.0-3.0) Basophils (%) (Auto) % (0.0-2.0) Differential Total Cells Counted 100 Neutrophils % (Manual) 87 % (45-75) H Lymphocytes % (Manual) 6 % (20-45) L Monocytes % (Manual) 4 % (1-10) Eosinophils % (Manual) 0 % (0-3) Basophils % (Manual) 0 % (0-2) Band Neutrophils 3 % (0-8) Nucleated Red Blood Cells 1 /100 WBC Platelet Estimate Adequate Platelet Morphology See comment Giant Platelets Occasional Hypochromasia 1+ Anisocytosis 2+ Macrocytosis 1+ Sodium Level 146 MMOL/L (136-145) H Potassium Level 4.6 MMOL/L (3.5-5.1) Chloride Level 105 MMOL/L (98-107) Carbon Dioxide Level 40 MMOL/L (21-32) H Anion Gap -2 mmol/L (5-15) L Blood Urea Nitrogen 18 mg/dL (7-18) Creatinine 0.3 MG/DL (0.55-1.30) L Estimat Glomerular Filtration Rate > 60 mL/min (>60) Glucose Level 111 MG/DL (74-106) H Calcium Level 8.4 MG/DL (8.5-10.1) L Total Bilirubin 0.4 MG/DL (0.2-1.0) Aspartate Amino Transf (AST/SGOT) 88 U/L (15-37) H Alanine Aminotransferase (ALT/SGPT) 83 U/L (12-78) H Alkaline Phosphatase 168 U/L (46-116) H Total Protein 5.6 G/DL (6.4-8.2) L Albumin 1.7 G/DL (3.4-5.0) L Globulin 3.9 g/dL Albumin/Globulin Ratio 0.4 (1.0-2.7) L POC Whole Blood Glucose Pending Arterial Blood pH 7.391 (7.350-7.450) Arterial Blood Partial Pressure CO2 76.5 mmHg (35.0-45.0) *H Arterial Blood Partial Pressure O2 62.6 mmHg (75.0-100.0) L Arterial Blood HCO3 45.4 mmol/L (22.0-26.0) *H Arterial Blood Oxygen Saturation 90.6 % (95-100) L Arterial Blood Base Excess 17.7 (-2-2) *H Jacob Test Positive Plan Problems: (1) Pneumothorax Assessment & Plan: 30M covid on vent peep 16 fi02 100 right ptx s/p right chest tube ett complication replaced 07/01 chest tube vac replaced this AM as well given malfunction high risk low tv cxr noted ill appearing tube and lines checked will need to monitor closely unable to wean vent at this time cont current care plan right chest tube with air leak persistent left side okay without leak large subq emphysema likely from right leaking Right pneumothorax is slightly increased from the prior exam, still small. Right chest tube remains in place. Stable satisfactory position of endotracheal and orogastric tubes. Left arm PICC remain stable. Previously demonstrated pneumomediastinum is not definitely evident currently. There is marked improvement of previously demonstrated right supraclavicular subcutaneous emphysema, with mild residual. Bilateral infiltrates remain worsening prognosis guarded chest tube stable but leak with high peep bilateral chest tubes placed now bilateral ptx Chest vent catheter remains in place on the left. Previously demonstrated left pneumothorax has improved considerably, with some residual primarily at the left lung base. Right chest tube remains in place. Small right apical pneumothorax is unchanged. Bilateral subcutaneous emphysema is slightly worse. The endotracheal and orogastric tube positions are stable and satisfactory. Left arm PICC is again demonstrated. The heart size is normal. Bilateral infiltrates are unchanged Impression: Over 2 days, interim marked improvement of previously demonstrated left pneumothorax, now small Unchanged small right apical pneumothorax Unchanged bilateral infiltrates (2) Respiratory failure (3) Coronavirus infection (4) Diabetes (5) Hypercapnia (6) Hypoxia (7) Asthma (8) HTN (hypertension) (9) Obesity (BMI 30-39.9) (10) Acute respiratory distress syndrome (ARDS) due to 2019-nCoV (11) Acute hypoxemic respiratory failure due to COVID-19 (12) Bradycardia (13) Laceration Mulugeta Butler Aug 18, 2020 18:25
--- NOTE | 2020-08-18 19:20 | NUR ---
NURSE NOTES: Received patient from ELIER Woods. Will continue plan of care.
--- NOTE | 2020-08-18 19:39 | NUR ---
NURSE NOTES: Patient repositioned and remains on cooling blanket, oral care provided with large sputum suctioned through the mouth. aleman remains draining clear straw urine. patient remains on versed at 14mg/hr to maintain sedation of -2 rass scale.
--- NOTE | 2020-08-18 19:41 | NUR ---
NURSE HAND-OFF REPORT: Latest Vital Signs: Temperature 97.2 , Pulse 98 , B/P 96 /54 , Respiratory Rate 31 , O2 SAT 95 , Mechanical Ventilator, O2 Flow Rate . Vital Sign Comment: EKG Rhythm: Sinus Rhythm Rhythm change?: N MD Notified?: Ildefonso Diana at bedside for re-intubation MD Response: Latest Bradley Fall Score: 60 Fall Risk: High Risk Safety Measures: Call light Within Reach, Bed Alarm Zone 1, Side Rails Side Rails x3, Bed position Low and Locked. Fall Precautions: Yellow Socks Yellow Gown Door Sign Patient Fall Education Report given to ELIER Lora.
--- NOTE | 2020-08-18 20:00 | NUR ---
NURSE NOTES: Patient is intubated; ETT 7.5 @ 25cm to the left lipline to vent with settings AC:26, TV:500, FiO2:100%, PEEP:16. Left nare NGT in place and running Glucerna 1.2 @ 40ml/hr and tolerating. On Versed @ 14mg via left upper arm PICC; mentation of RASS -2 lightly sedated, opens eyes to touch and voice. Rectal tube and aleman catheter in place and draining. Right chest tube and left thora-vent intact and hooked onto low continuous wall suction. Cooling blanket on, pt afebrile. Will continue plan of care
[2020-08-18] MEDS: Dyna-Hex 2% Top Sol 2oz TOPIC SCH (20:11)
--- NOTE | 2020-08-18 22:00 | NUR ---
NURSE NOTES: Patient family members (girlfriend) was here to see patient. Bought cell phone to patient for her to speak to him. Patient showed signs of emotions and acknowledgement that she was present. Updates given.
[2020-08-19] VITALS (39 sets, daily range): BP systolic 105–143; BP diastolic 46–80
--- NOTE | 2020-08-19 | NUR ---
NURSE NOTES: Accucheck resulted 67, 1 can orange juice given via NGT. Re-check after 15min- resulted 88.
--- NOTE | 2020-08-19 01:05 | Cardiology Progress Note ---
Subjective DATE OF SERVICE: Aug 18, 2020 Condition remains critical and prognosis guarded He remains on full vent support, on high flow FIO2 - orally intubated. s/p left PTX - chest tube placed with improvement Episodic SVT noted Objective Last 24 Hour Vital Signs Date Time Temp Pulse Resp B/P (MAP) Pulse Ox O2 Delivery O2 Flow Rate FiO2 08/19/20 00:32 105 31 100 08/19/20 00:00 Mechanical Ventilator 08/18/20 23:00 110 30 113/65 (81) 100 08/18/20 23:00 26 Mechanical Ventilator 100 08/18/20 22:00 113 29 113/60 (77) 100 08/18/20 22:00 26 Mechanical Ventilator 100 08/18/20 21:00 26 Mechanical Ventilator 100 08/18/20 21:00 117 31 104/62 (76) 100 08/18/20 20:11 35 Mechanical Ventilator 100 08/18/20 20:00 96.1 109 32 109/56 (73) 95 08/18/20 20:00 26 Mechanical Ventilator 100 08/18/20 20:00 100 08/18/20 20:00 Mechanical Ventilator 08/18/20 19:38 112 31 100 08/18/20 19:00 98 31 96/54 (68) 95 08/18/20 19:00 29 Mechanical Ventilator 100 08/18/20 18:30 96 29 111/65 (80) 94 08/18/20 18:00 95 25 112/62 (79) 100 08/18/20 18:00 26 Mechanical Ventilator 100 08/18/20 17:30 93 26 109/62 (78) 99 08/18/20 17:00 27 Mechanical Ventilator 100 08/18/20 17:00 98 27 109/66 (80) 99 08/18/20 16:30 105 28 117/67 (84) 98 08/18/20 16:00 100 08/18/20 16:00 Mechanical Ventilator 08/18/20 16:00 97.2 109 29 112/65 (81) 08/18/20 16:00 30 Mechanical Ventilator 100 08/18/20 16:00 106 08/18/20 15:30 110 29 109/65 (80) 98 08/18/20 15:09 114 27 100 08/18/20 15:00 31 Mechanical Ventilator 100 08/18/20 15:00 112 30 113/63 (80) 98 08/18/20 14:00 30 Mechanical Ventilator 100 08/18/20 14:00 121 33 110/62 (78) 94 08/18/20 13:00 30 Mechanical Ventilator 100 08/18/20 13:00 113 28 109/59 (76) 99 08/18/20 12:46 29 Mechanical Ventilator 100 08/18/20 12:30 29 Mechanical Ventilator 100 08/18/20 12:00 110 32 109/65 (80) 97 08/18/20 12:00 100 08/18/20 12:00 117 08/18/20 12:00 Mechanical Ventilator 08/18/20 11:30 97.4 107 31 101/48 (65) 92 08/18/20 11:30 33 Mechanical Ventilator 100 08/18/20 11:00 100 29 95/55 (68) 95 08/18/20 10:51 99 28 100 08/18/20 10:30 95 26 104/60 (75) 97 08/18/20 10:30 28 Mechanical Ventilator 100 08/18/20 10:00 96 26 92/60 (71) 97 08/18/20 09:30 26 Mechanical Ventilator 100 08/18/20 09:30 97 20 95/64 (74) 08/18/20 09:00 95 24 100/58 (72) 96 08/18/20 08:30 26 Mechanical Ventilator 100 08/18/20 08:30 67 28 125/66 (85) 73 08/18/20 08:00 100 08/18/20 08:00 97.2 91 23 98/50 (66) 08/18/20 08:00 Mechanical Ventilator 08/18/20 08:00 90 08/18/20 07:30 90 22 101/56 (71) 99 08/18/20 07:30 27 Mechanical Ventilator 100 08/18/20 07:25 98 26 100 08/18/20 07:00 91 23 96/62 (73) 08/18/20 06:30 26 Mechanical Ventilator 100 08/18/20 06:00 96 25 102/70 (81) 99 08/18/20 05:30 26 Mechanical Ventilator 100 08/18/20 05:06 26 Mechanical Ventilator 100 08/18/20 05:00 99 24 96/64 (75) 98 08/18/20 04:30 26 Mechanical Ventilator 100 08/18/20 04:00 Mechanical Ventilator 08/18/20 04:00 100 08/18/20 04:00 99.3 110 28 102/65 (77) 95 08/18/20 03:30 26 Mechanical Ventilator 100 08/18/20 03:10 117 08/18/20 03:00 117 28 115/59 (77) 97 08/18/20 02:59 119 31 100 08/18/20 02:30 26 Mechanical Ventilator 100 08/18/20 02:00 124 29 99/60 (73) 96 08/18/20 01:30 26 Mechanical Ventilator 100 HEENT: Orally intubated, Mechanically Ventilated, Thin secretions ET Tube RHYTHM: SB LUNGS: bilateral rhonchi, other - right chest tube CARDIAC: regular rhythm, normal S1 and S2, bradycardia ABDOMEN: normal bowel sounds, non tender, soft EXTREMITIES: normal range of motion, non-tender Laboratory Tests Test 08/18/20 04:00 08/18/20 05:16 08/18/20 09:23 White Blood Count 15.4 K/UL (4.8-10.8) H Red Blood Count 2.91 M/UL (4.70-6.10) L Hemoglobin 9.1 G/DL (14.2-18.0) L Hematocrit 30.1 % (42.0-52.0) L Mean Corpuscular Volume 103 FL (80-99) H Mean Corpuscular Hemoglobin 31.4 PG (27.0-31.0) H Mean Corpuscular Hemoglobin Concent 30.4 G/DL (32.0-36.0) L Red Cell Distribution Width 20.9 % (11.6-14.8) H Platelet Count 194 K/UL (150-450) Mean Platelet Volume 7.3 FL (6.5-10.1) Neutrophils (%) (Auto) % (45.0-75.0) Lymphocytes (%) (Auto) % (20.0-45.0) Monocytes (%) (Auto) % (1.0-10.0) Eosinophils (%) (Auto) % (0.0-3.0) Basophils (%) (Auto) % (0.0-2.0) Differential Total Cells Counted 100 Neutrophils % (Manual) 87 % (45-75) H Lymphocytes % (Manual) 6 % (20-45) L Monocytes % (Manual) 4 % (1-10) Eosinophils % (Manual) 0 % (0-3) Basophils % (Manual) 0 % (0-2) Band Neutrophils 3 % (0-8) Nucleated Red Blood Cells 1 /100 WBC Platelet Estimate Adequate Platelet Morphology See comment Giant Platelets Occasional Hypochromasia 1+ Anisocytosis 2+ Macrocytosis 1+ Sodium Level 146 MMOL/L (136-145) H Potassium Level 4.6 MMOL/L (3.5-5.1) Chloride Level 105 MMOL/L (98-107) Carbon Dioxide Level 40 MMOL/L (21-32) H Anion Gap -2 mmol/L (5-15) L Blood Urea Nitrogen 18 mg/dL (7-18) Creatinine 0.3 MG/DL (0.55-1.30) L Estimat Glomerular Filtration Rate > 60 mL/min (>60) Glucose Level 111 MG/DL (74-106) H Calcium Level 8.4 MG/DL (8.5-10.1) L Total Bilirubin 0.4 MG/DL (0.2-1.0) Aspartate Amino Transf (AST/SGOT) 88 U/L (15-37) H Alanine Aminotransferase (ALT/SGPT) 83 U/L (12-78) H Alkaline Phosphatase 168 U/L (46-116) H Total Protein 5.6 G/DL (6.4-8.2) L Albumin 1.7 G/DL (3.4-5.0) L Globulin 3.9 g/dL Albumin/Globulin Ratio 0.4 (1.0-2.7) L POC Whole Blood Glucose Pending Arterial Blood pH 7.391 (7.350-7.450) Arterial Blood Partial Pressure CO2 76.5 mmHg (35.0-45.0) *H Arterial Blood Partial Pressure O2 62.6 mmHg (75.0-100.0) L Arterial Blood HCO3 45.4 mmol/L (22.0-26.0) *H Arterial Blood Oxygen Saturation 90.6 % (95-100) L Arterial Blood Base Excess 17.7 (-2-2) *H Jacob Test Positive Assessment/Plan Assessment/Plan Covid 19 PNA Bilateral PTX Secondary sinus tachycardia K.pneumonia PNA Acute respiratory failure with severe Hypoxia - slightly improved over past day. Diabetes mellitus with hyperglycemia due to steroids Transaminitis Mod protein/calorie malnutrition Dehydration/hypernatremia resolving Paroxysmal SVT CRITICAL & GUARDED Chest tube management/vent support Continuous cardiac monitoring Anticoagulation and steroid rx Titrate oxygen as able; prone. Vent settings adjusted by pulmonary; still cannot tolerate less than 100% FIO2. Anti-viral rx Protein suppl Free water replacement as needed Insulin cov'g by SS; levemir dose advanced further. May consider diltiazem to help suppress atrial arrhythmias Chuck Swain MD Aug 19, 2020 01:05
--- NOTE | 2020-08-19 02:00 | NUR ---
NURSE NOTES: Versed running 14mg, lightly sedated with a RASS -2. Tachycardic in the 110s. O2sat: 99-100%. Pt afebrile.
[2020-08-19] MEDS: Midazolam HCl 50mg/10ml vial 100 MG in NS 180 ML IV SCH ×4 (03:51→22:58)
--- NOTE | 2020-08-19 04:00 | NUR ---
NURSE NOTES: Bed bath given, linens changed, turned and repositioned, light oral care and suctioning done.
[2020-08-19 05:27] LABS: HEMATOCRIT 29.8 % (42.0-52.0); MEAN CORPUSCULAR VOLUME 104 FL (80-99); PLATELET COUNT 195 K/UL (150-450); RED BLOOD COUNT 2.88 M/UL (4.70-6.10); RED CELL DISTRIBUTION WIDTH 21.1 % (11.6-14.8); WHITE BLOOD COUNT 12.5 K/UL (4.8-10.8)
[2020-08-19] MEDS: NovoLOG Insulin Flexpen SUBQ SCH ×3 (05:28→18:12)
[2020-08-19 05:50] LABS: ALANINE AMINOTRANSFERASE 77 U/L (12-78); ALBUMIN 1.7 G/DL (3.4-5.0); ALBUMIN/GLOBULIN RATIO 0.4 (1.0-2.7); ALKALINE PHOSPHATASE 155 U/L (46-116); ANION GAP -2 mmol/L (5-15); ASPARTATE AMINO TRANSFERASE 97 U/L (15-37); BILIRUBIN,TOTAL 0.5 MG/DL (0.2-1.0); BLOOD UREA NITROGEN 14 mg/dL (7-18); CALCIUM 8.8 MG/DL (8.5-10.1); CHLORIDE 106 MMOL/L (98-107); CREATININE 0.2 MG/DL (0.55-1.30); POTASSIUM 4.3 MMOL/L (3.5-5.1); SODIUM 147 MMOL/L (136-145)
--- NOTE | 2020-08-19 06:00 | NUR ---
NURSE NOTES: Versed continues at 14mgs. O2sat:100%. No changes in vent settings, patient remains sedated.
[2020-08-19 06:10] LABS: CARBON DIOXIDE 43 MMOL/L (21-32)
--- NOTE | 2020-08-19 07:17 | NUR ---
NURSE HAND-OFF REPORT: Latest Vital Signs: Temperature 96.0 , Pulse 102 , B/P 111 /65 , Respiratory Rate 26 , O2 SAT 100 , Mechanical Ventilator, O2 Flow Rate . Vital Sign Comment: stable EKG Rhythm: Sinus Tachycardia Rhythm change?: N MD Notified?: Ildefonso Diana at bedside for re-intubation MD Response: Latest Bradley Fall Score: 60 Fall Risk: High Risk Safety Measures: Call light Within Reach, Bed Alarm Zone 1, Side Rails Side Rails x3, Bed position Low and Locked. Fall Precautions: Yellow Socks Yellow Gown Door Sign Patient Fall Education Report given to .
--- NOTE | 2020-08-19 07:18 | NUR ---
NURSE NOTES: Received pt from ELIER Lora. Pt sedated with RASS -2. Pupils equal and sluggish. Pt appears alert to name, place, and situation. Pt able to nod to answer questions and follows with eyes. Pt orally intubated 7.5cm ET tube with 25cm at the lip. Pt tolerating vent setting with high RR at this time. SpO2 99-100%. Pt on versed drip. Noted that pt has no order for pain medication. Will administer tylenol and ask MD for PRN pain medication. Pt Covid positive. Bilateral chest tube noted for pneuomothorax. Air leak noted in right chest tube. MD aware. Lung sounds diminished. HR elevated with rate of 115 at this time in sinus tachycardia. BP WNL. Temp within normal limits. Skin intact. Oral bleeding noted. Pt repositioned and oral care done at this time. Will continue to monitor.
--- NOTE | 2020-08-19 07:24 | NUR ---
NURSE NOTES: Left message for Dr Guillen asking if he would like the lovenox to be given although the pt is having gross hematuria. Awaiting call back at this time.
--- NOTE | 2020-08-19 07:32 | General Progress Note ---
Subjective ROS Limited/Unobtainable: No Constitutional: Reports: malaise, weakness HEENT: Reports: no symptoms Cardiovascular: Reports: no symptoms Respiratory: Reports: shortness of breath, sputum Gastrointestinal/Abdominal: Reports: difficulty swallowing Genitourinary: Reports: no symptoms Neurologic/Psychiatric: Reports: no symptoms Endocrine: Reports: no symptoms Hematologic/Lymphatic: Reports: anemia Allergies: Coded Allergies: No Known Allergies (Unverified , 03/08/17) All Systems: reviewed and negative except above Subjective hypoglycemia last night. tolerating feeds. unable to wean peep or fio2. sedated. labs noted. Objective Last 24 Hour Vital Signs Date Time Temp Pulse Resp B/P (MAP) Pulse Ox O2 Delivery O2 Flow Rate FiO2 08/19/20 07:00 102 27 111/65 (80) 100 08/19/20 07:00 26 Mechanical Ventilator 100 08/19/20 06:00 101 27 109/69 (82) 98 08/19/20 06:00 26 Mechanical Ventilator 100 08/19/20 05:00 109 26 132/77 (95) 90 08/19/20 05:00 26 Mechanical Ventilator 100 08/19/20 04:00 100 08/19/20 04:00 96.0 117 29 125/72 (89) 97 08/19/20 04:00 26 Mechanical Ventilator 100 08/19/20 04:00 Mechanical Ventilator 08/19/20 03:51 30 Mechanical Ventilator 100 08/19/20 03:02 119 08/19/20 03:00 118 31 120/66 (84) 99 08/19/20 03:00 26 Mechanical Ventilator 100 08/19/20 02:00 116 35 119/66 (83) 99 08/19/20 02:00 26 Mechanical Ventilator 100 08/19/20 01:00 26 Mechanical Ventilator 100 08/19/20 01:00 103 29 111/60 (77) 99 08/19/20 00:32 105 31 100 08/19/20 00:00 96.9 109 28 120/70 (87) 99 08/19/20 00:00 26 Mechanical Ventilator 100 08/19/20 00:00 Mechanical Ventilator 08/18/20 23:30 105 08/18/20 23:00 110 30 113/65 (81) 100 08/18/20 23:00 26 Mechanical Ventilator 100 08/18/20 22:00 113 29 113/60 (77) 100 08/18/20 22:00 26 Mechanical Ventilator 100 08/18/20 21:00 26 Mechanical Ventilator 100 08/18/20 21:00 117 31 104/62 (76) 100 08/18/20 20:11 35 Mechanical Ventilator 100 08/18/20 20:00 96.1 109 32 109/56 (73) 95 08/18/20 20:00 26 Mechanical Ventilator 100 08/18/20 20:00 100 08/18/20 20:00 Mechanical Ventilator 08/18/20 19:38 112 31 100 08/18/20 19:19 102 08/18/20 19:00 98 31 96/54 (68) 95 08/18/20 19:00 29 Mechanical Ventilator 100 08/18/20 18:30 96 29 111/65 (80) 94 08/18/20 18:00 95 25 112/62 (79) 100 08/18/20 18:00 26 Mechanical Ventilator 100 08/18/20 17:30 93 26 109/62 (78) 99 08/18/20 17:00 27 Mechanical Ventilator 100 08/18/20 17:00 98 27 109/66 (80) 99 08/18/20 16:30 105 28 117/67 (84) 98 08/18/20 16:00 100 08/18/20 16:00 Mechanical Ventilator 08/18/20 16:00 97.2 109 29 112/65 (81) 08/18/20 16:00 30 Mechanical Ventilator 100 08/18/20 16:00 106 08/18/20 15:30 110 29 109/65 (80) 98 08/18/20 15:09 114 27 100 08/18/20 15:00 31 Mechanical Ventilator 100 08/18/20 15:00 112 30 113/63 (80) 98 08/18/20 14:00 30 Mechanical Ventilator 100 08/18/20 14:00 121 33 110/62 (78) 94 08/18/20 13:00 30 Mechanical Ventilator 100 08/18/20 13:00 113 28 109/59 (76) 99 08/18/20 12:46 29 Mechanical Ventilator 100 08/18/20 12:30 29 Mechanical Ventilator 100 08/18/20 12:00 110 32 109/65 (80) 97 08/18/20 12:00 100 08/18/20 12:00 117 08/18/20 12:00 Mechanical Ventilator 08/18/20 11:30 97.4 107 31 101/48 (65) 92 08/18/20 11:30 33 Mechanical Ventilator 100 08/18/20 11:00 100 29 95/55 (68) 95 08/18/20 10:51 99 28 100 08/18/20 10:30 95 26 104/60 (75) 97 08/18/20 10:30 28 Mechanical Ventilator 100 08/18/20 10:00 96 26 92/60 (71) 97 08/18/20 09:30 26 Mechanical Ventilator 100 08/18/20 09:30 97 20 95/64 (74) 08/18/20 09:00 95 24 100/58 (72) 96 08/18/20 08:30 26 Mechanical Ventilator 100 08/18/20 08:30 67 28 125/66 (85) 73 08/18/20 08:00 100 08/18/20 08:00 97.2 91 23 98/50 (66) 08/18/20 08:00 Mechanical Ventilator 08/18/20 08:00 90 08/18/20 07:30 90 22 101/56 (71) 99 08/18/20 07:30 27 Mechanical Ventilator 100 Intake and Output 08/18/20 08/19/20 19:00 07:00 Intake Total 798.32102 ml 906 ml Output Total 1024 ml 810 ml Balance -225.00529 ml 96 ml IV Total 318.80352 ml 308 ml Tube Feeding 480 ml 480 ml Other 118 ml Output Urine Total 920 ml 760 ml Stool Total 50 ml Chest Tube Drainage Total 104 ml # Bowel Movements 75 Laboratory Tests 08/18/20 09:23: Arterial Blood pH 7.391, Arterial Blood Partial Pressure CO2 76.5*H, Arterial Blood Partial Pressure O2 62.6L, Arterial Blood HCO3 45.4*H, Arterial Blood Oxygen Saturation 90.6L, Arterial Blood Base Excess 17.7*H, Jacob Test Positive 08/18/20 12:48: POC Whole Blood Glucose 136H 08/19/20 04:00: White Blood Count 12.5H, Red Blood Count 2.88L, Hemoglobin 9.0L, Hematocrit 29.8L, Mean Corpuscular Volume 104H, Mean Corpuscular Hemoglobin 31.3H, Mean Corpuscular Hemoglobin Concent 30.2L, Red Cell Distribution Width 21.1H, Platelet Count 195, Mean Platelet Volume 8.3, Neutrophils (%) (Auto) , Lymphocytes (%) (Auto) , Monocytes (%) (Auto) , Eosinophils (%) (Auto) , Basophils (%) (Auto) , Neutrophils % (Manual) [Pending], Lymphocytes % (Manual) [Pending], Platelet Estimate [Pending], Platelet Morphology [Pending], Sodium Level 147H, Potassium Level 4.3, Chloride Level 106, Carbon Dioxide Level 43*H, Anion Gap -2L, Blood Urea Nitrogen 14, Creatinine 0.2L, Estimat Glomerular Filtration Rate > 60, Glucose Level 82, Calcium Level 8.8, Total Bilirubin 0.5, Aspartate Amino Transf (AST/SGOT) 97H, Alanine Aminotransferase (ALT/SGPT) 77, Alkaline Phosphatase 155H, Total Protein 5.6L, Albumin 1.7L, Globulin 3.9, Albumin/Globulin Ratio 0.4L Height (Feet): 5 Height (Inches): 6.00 Weight (Pounds): 209 Objective deferred Assessment/Plan Problem List: (1) Coronavirus infection ICD Codes: B34.2 - Coronavirus infection, unspecified SNOMED: 291345868 (2) Respiratory failure ICD Codes: J96.90 - Respiratory failure, unspecified, unspecified whether with hypoxia or hypercapnia SNOMED: 241883321 (3) Hypercapnia ICD Codes: R06.89 - Other abnormalities of breathing SNOMED: 52774564, 406405075 (4) Hypoxia ICD Codes: R09.02 - Hypoxemia SNOMED: 503337835 (5) Asthma ICD Codes: J45.909 - Unspecified asthma, uncomplicated SNOMED: 667904751, 704229845 (6) Pneumothorax ICD Codes: J93.9 - Pneumothorax, unspecified SNOMED: 17081588 Status: progressing, not improved Assessment/Plan: vent support wean fio2 and peep as able chest tube management per surgery resp care/suctioning as needed monitor for bleeding. off lovenox due to oral bleeding monitor plts- trending up scd anxiolytics decrease levemir monitor bs remains critical and guarded clinically no improvement trying to transfer for high level of care Rolando Cherry MD Aug 19, 2020 07:32
--- NOTE | 2020-08-19 07:33 | NUR ---
NURSE NOTES: Dr Cherry rounded on the pt. Update given by ELIER Lora. Geno notified him that pt BG dropped overnight. He reported that he would adjust the medications. Notified Dr Cherry that pt has no PRN pain medication. He reported that he would add something.
[2020-08-19] MEDS: Levemir Flexpen SUBQ SCH ×2 (08:08→19:52)
[2020-08-19] MEDS: Docusate 100mg/10ml Liq NG SCH ×2 (08:08→19:52)
--- NOTE | 2020-08-19 08:20 | NUR ---
NURSE NOTES: Increased WOB noted. HR elevated. RR elevated. Pt appears uncomfortable. Versed increased. Will administer morphine and Tylenol as needed. Will continue to monitor.
[2020-08-19] MEDS: Morphine Sulfate 2mg/ml Inj(IV/IM USE ONLY) IVP PRN ×3 (08:26→17:49)
[2020-08-19] MEDS: Acetaminophen 650mg/20.3ml NG PRN ×2 (08:27→17:21)
[2020-08-19] MEDS: Vitamin B Complex Tab NG SCH (08:27)
--- NOTE | 2020-08-19 08:54 | Pulmonology Progress Note ---
Subjective ROS Limited/Unobtainable: Yes Gastrointestinal/Abdominal: Reports: nausea, vomiting, diarrhea Musculoskeletal: Reports: pain Allergies: Coded Allergies: No Known Allergies (Unverified , 03/08/17) All Systems: reviewed and negative except above Subjective ct in place remains on high oxygen and PEEP reduced and patient desaturated on vent full code d/w nursing sedated doing poorly Objective Last 24 Hour Vital Signs Date Time Temp Pulse Resp B/P (MAP) Pulse Ox O2 Delivery O2 Flow Rate FiO2 08/19/20 07:00 102 27 111/65 (80) 100 08/19/20 07:00 26 Mechanical Ventilator 100 08/19/20 06:00 101 27 109/69 (82) 98 08/19/20 06:00 26 Mechanical Ventilator 100 08/19/20 05:00 109 26 132/77 (95) 90 08/19/20 05:00 26 Mechanical Ventilator 100 08/19/20 04:00 100 08/19/20 04:00 96.0 117 29 125/72 (89) 97 08/19/20 04:00 26 Mechanical Ventilator 100 08/19/20 04:00 Mechanical Ventilator 08/19/20 03:51 30 Mechanical Ventilator 100 08/19/20 03:02 119 08/19/20 03:00 118 31 120/66 (84) 99 08/19/20 03:00 26 Mechanical Ventilator 100 08/19/20 02:00 116 35 119/66 (83) 99 08/19/20 02:00 26 Mechanical Ventilator 100 08/19/20 01:00 26 Mechanical Ventilator 100 08/19/20 01:00 103 29 111/60 (77) 99 08/19/20 00:32 105 31 100 08/19/20 00:00 96.9 109 28 120/70 (87) 99 08/19/20 00:00 26 Mechanical Ventilator 100 08/19/20 00:00 Mechanical Ventilator 08/18/20 23:30 105 08/18/20 23:00 110 30 113/65 (81) 100 08/18/20 23:00 26 Mechanical Ventilator 100 08/18/20 22:00 113 29 113/60 (77) 100 08/18/20 22:00 26 Mechanical Ventilator 100 08/18/20 21:00 26 Mechanical Ventilator 100 08/18/20 21:00 117 31 104/62 (76) 100 08/18/20 20:11 35 Mechanical Ventilator 100 08/18/20 20:00 96.1 109 32 109/56 (73) 95 08/18/20 20:00 26 Mechanical Ventilator 100 08/18/20 20:00 100 08/18/20 20:00 Mechanical Ventilator 08/18/20 19:38 112 31 100 08/18/20 19:19 102 08/18/20 19:00 98 31 96/54 (68) 95 08/18/20 19:00 29 Mechanical Ventilator 100 08/18/20 18:30 96 29 111/65 (80) 94 08/18/20 18:00 95 25 112/62 (79) 100 08/18/20 18:00 26 Mechanical Ventilator 100 08/18/20 17:30 93 26 109/62 (78) 99 08/18/20 17:00 27 Mechanical Ventilator 100 08/18/20 17:00 98 27 109/66 (80) 99 08/18/20 16:30 105 28 117/67 (84) 98 08/18/20 16:00 100 08/18/20 16:00 Mechanical Ventilator 08/18/20 16:00 97.2 109 29 112/65 (81) 08/18/20 16:00 30 Mechanical Ventilator 100 08/18/20 16:00 106 08/18/20 15:30 110 29 109/65 (80) 98 08/18/20 15:09 114 27 100 08/18/20 15:00 31 Mechanical Ventilator 100 08/18/20 15:00 112 30 113/63 (80) 98 08/18/20 14:00 30 Mechanical Ventilator 100 08/18/20 14:00 121 33 110/62 (78) 94 08/18/20 13:00 30 Mechanical Ventilator 100 08/18/20 13:00 113 28 109/59 (76) 99 08/18/20 12:46 29 Mechanical Ventilator 100 08/18/20 12:30 29 Mechanical Ventilator 100 08/18/20 12:00 110 32 109/65 (80) 97 08/18/20 12:00 100 08/18/20 12:00 117 08/18/20 12:00 Mechanical Ventilator 08/18/20 11:30 97.4 107 31 101/48 (65) 92 08/18/20 11:30 33 Mechanical Ventilator 100 08/18/20 11:00 100 29 95/55 (68) 95 08/18/20 10:51 99 28 100 08/18/20 10:30 95 26 104/60 (75) 97 08/18/20 10:30 28 Mechanical Ventilator 100 08/18/20 10:00 96 26 92/60 (71) 97 08/18/20 09:30 26 Mechanical Ventilator 100 08/18/20 09:30 97 20 95/64 (74) 08/18/20 09:00 95 24 100/58 (72) 96 Intake and Output 08/18/20 08/19/20 19:00 07:00 Intake Total 798.49215 ml 906 ml Output Total 1024 ml 810 ml Balance -225.68692 ml 96 ml IV Total 318.93416 ml 308 ml Tube Feeding 480 ml 480 ml Other 118 ml Output Urine Total 920 ml 760 ml Stool Total 50 ml Chest Tube Drainage Total 104 ml # Bowel Movements 75 Objective deferred due to COVID Laboratory Tests 08/18/20 09:23: Arterial Blood pH 7.391, Arterial Blood Partial Pressure CO2 76.5*H, Arterial Blood Partial Pressure O2 62.6L, Arterial Blood HCO3 45.4*H, Arterial Blood Oxygen Saturation 90.6L, Arterial Blood Base Excess 17.7*H, Jacob Test Positive 08/18/20 12:48: POC Whole Blood Glucose 136H 08/19/20 04:00: White Blood Count 12.5H, Red Blood Count 2.88L, Hemoglobin 9.0L, Hematocrit 29.8L, Mean Corpuscular Volume 104H, Mean Corpuscular Hemoglobin 31.3H, Mean Corpuscular Hemoglobin Concent 30.2L, Red Cell Distribution Width 21.1H, Platelet Count 195, Mean Platelet Volume 8.3, Neutrophils (%) (Auto) , Lymphocytes (%) (Auto) , Monocytes (%) (Auto) , Eosinophils (%) (Auto) , Basophils (%) (Auto) , Differential Total Cells Counted 100, Neutrophils % (Manual) 88H, Lymphocytes % (Manual) 5L, Monocytes % (Manual) 4, Eosinophils % (Manual) 3, Basophils % (Manual) 0, Band Neutrophils 0, Nucleated Red Blood Cells 2, Platelet Estimate Adequate, Platelet Morphology Normal, Polychromasia 1+, Hypochromasia 1+, Anisocytosis 3+, Macrocytosis 1+, Sodium Level 147H, Potassium Level 4.3, Chloride Level 106, Carbon Dioxide Level 43*H, Anion Gap - 2L, Blood Urea Nitrogen 14, Creatinine 0.2L, Estimat Glomerular Filtration Rate > 60, Glucose Level 82, Calcium Level 8.8, Total Bilirubin 0.5, Aspartate Amino Transf (AST/SGOT) 97H, Alanine Aminotransferase (ALT/SGPT) 77, Alkaline Phosphatase 155H, Total Protein 5.6L, Albumin 1.7L, Globulin 3.9, Albumin/Globulin Ratio 0.4L Current Medications Medications (Trade) Dose Ordered Sig/Milagro Route PRN Reason Start Time Stop Time Status Last Admin Dose Admin Acetaminophen (Tylenol) 650 mg Q4H PRN RECTAL Mild Pain (Pain Scale 1-3) 07/24/20 18:15 08/23/20 18:14 07/25/20 11:49 Acetaminophen (Tylenol) 650 mg Q6H PRN NG Temp >100.5 07/26/20 08:30 08/25/20 08:29 08/17/20 22:33 Acetaminophen (Tylenol) 650 mg Q6H PRN NG Mild Pain (Pain Scale 1-3) 07/26/20 08:30 08/25/20 08:29 08/19/20 08:27 Chlorhexidine Gluconate (Marycarmen-Hex 2%) 1 applic DAILY@2000 TOPIC 07/20/20 20:00 10/18/20 19:59 08/18/20 20:11 Dextrose (Dextrose 50%) 25 ml Q30M PRN IV Hypoglycemia 07/23/20 13:15 10/21/20 13:14 Dextrose (Dextrose 50%) 50 ml Q30M PRN IV Hypoglycemia 07/23/20 13:15 10/21/20 13:14 08/15/20 20:26 Dextrose/Sodium Chloride 1,000 ml @ 100 mls/hr Q10H PRN IV WHILE PRONING ONLY 07/24/20 17:45 08/23/20 17:44 08/10/20 05:33 Docusate Sodium (Colace) 100 mg EVERY 12 HOURS NG 07/27/20 21:00 08/26/20 20:59 08/18/20 20:11 Famotidine (Pepcid I.v.) 20 mg Q12HR IVP 08/04/20 21:00 09/03/20 20:59 08/19/20 08:27 Insulin Aspart (NovoLOG) EVERY 6 HOURS SUBQ 07/28/20 00:00 10/21/20 15:59 08/17/20 23:20 Insulin Detemir (Levemir) 13 units EVERY 12 HOURS SUBQ 08/19/20 09:00 11/17/20 08:59 Midazolam HCl 100 mg/Sodium Chloride 200 ml @ 0 mls/hr Q24H IV 08/12/20 18:00 08/19/20 17:59 08/19/20 03:51 Morphine Sulfate (Morphine Sulfate) 1 mg Q4H PRN IVP PAIN 4-10 08/19/20 08:00 08/26/20 07:59 08/19/20 08:26 Ondansetron HCl (Zofran) 4 mg Q6H PRN IVP Nausea & Vomiting 08/15/20 15:45 09/14/20 15:44 08/15/20 15:54 Vitamin B Complex (Vitamin B Complex) 1 tab DAILY NG 07/24/20 09:00 10/09/20 08:59 08/19/20 08:27 Assessment/Plan Assessment/Plan acute hypoxemic respiratory failure COVID pneumonia Asthma elevated liver enzymes DNR ARDS with fibrosing phase pneumothorax bilateral chest tubes elevated TG subq emphysema PLAN not improved; still on high o2 and peep/ sats >90 CT per surgery / monitor sq emphysema imaging PRN reviewed unable to trach at present monitor acid base status respiratory care ID noted DVT prophylaxis prognosis poor overall for meaningful recovery monitor respiratory status for change not safe for trach placement medications/laboratory data/nursing notes/ICU care reviewed in detail note reviewed and edited care discussed with RN and RT ICU time spent >40 minutes Elfego Price MD Aug 19, 2020 08:54
--- NOTE | 2020-08-19 11:00 | NUR ---
NURSE NOTES: Dr Butler rounded on the pt. Notified him that pt has pronounced subcutaneous emphysema on his left chest. He reported that he is aware but the chest tube is in place and the pneumothoraces have improved bilaterally despite air leak on both sides. Will continue to monitor.
--- NOTE | 2020-08-19 11:03 | Surgery Progress Note ---
Surgery Progress Note Subjective Procedure Performed left chest tube insertion Additional Comments sedated left ct no leak right with leak sub q stable labs noted prognosis guarded Objective Last 24 Hour Vital Signs Date Time Temp Pulse Resp B/P (MAP) Pulse Ox O2 Delivery O2 Flow Rate FiO2 08/19/20 08:00 120 08/19/20 07:00 102 27 111/65 (80) 100 08/19/20 07:00 26 Mechanical Ventilator 100 08/19/20 06:00 101 27 109/69 (82) 98 08/19/20 06:00 26 Mechanical Ventilator 100 08/19/20 05:00 109 26 132/77 (95) 90 08/19/20 05:00 26 Mechanical Ventilator 100 08/19/20 04:00 100 08/19/20 04:00 96.0 117 29 125/72 (89) 97 08/19/20 04:00 26 Mechanical Ventilator 100 08/19/20 04:00 Mechanical Ventilator 08/19/20 03:51 30 Mechanical Ventilator 100 08/19/20 03:02 119 08/19/20 03:00 118 31 120/66 (84) 99 08/19/20 03:00 26 Mechanical Ventilator 100 08/19/20 02:00 116 35 119/66 (83) 99 08/19/20 02:00 26 Mechanical Ventilator 100 08/19/20 01:00 26 Mechanical Ventilator 100 08/19/20 01:00 103 29 111/60 (77) 99 08/19/20 00:32 105 31 100 08/19/20 00:00 96.9 109 28 120/70 (87) 99 08/19/20 00:00 26 Mechanical Ventilator 100 08/19/20 00:00 Mechanical Ventilator 08/18/20 23:30 105 08/18/20 23:00 110 30 113/65 (81) 100 08/18/20 23:00 26 Mechanical Ventilator 100 08/18/20 22:00 113 29 113/60 (77) 100 08/18/20 22:00 26 Mechanical Ventilator 100 08/18/20 21:00 26 Mechanical Ventilator 100 08/18/20 21:00 117 31 104/62 (76) 100 08/18/20 20:11 35 Mechanical Ventilator 100 08/18/20 20:00 96.1 109 32 109/56 (73) 95 08/18/20 20:00 26 Mechanical Ventilator 100 08/18/20 20:00 100 08/18/20 20:00 Mechanical Ventilator 08/18/20 19:38 112 31 100 08/18/20 19:19 102 08/18/20 19:00 98 31 96/54 (68) 95 08/18/20 19:00 29 Mechanical Ventilator 100 08/18/20 18:30 96 29 111/65 (80) 94 08/18/20 18:00 95 25 112/62 (79) 100 08/18/20 18:00 26 Mechanical Ventilator 100 08/18/20 17:30 93 26 109/62 (78) 99 08/18/20 17:00 27 Mechanical Ventilator 100 08/18/20 17:00 98 27 109/66 (80) 99 08/18/20 16:30 105 28 117/67 (84) 98 08/18/20 16:00 100 08/18/20 16:00 Mechanical Ventilator 08/18/20 16:00 97.2 109 29 112/65 (81) 08/18/20 16:00 30 Mechanical Ventilator 100 08/18/20 16:00 106 08/18/20 15:30 110 29 109/65 (80) 98 08/18/20 15:09 114 27 100 08/18/20 15:00 31 Mechanical Ventilator 100 08/18/20 15:00 112 30 113/63 (80) 98 08/18/20 14:00 30 Mechanical Ventilator 100 08/18/20 14:00 121 33 110/62 (78) 94 08/18/20 13:00 30 Mechanical Ventilator 100 08/18/20 13:00 113 28 109/59 (76) 99 08/18/20 12:46 29 Mechanical Ventilator 100 08/18/20 12:30 29 Mechanical Ventilator 100 08/18/20 12:00 110 32 109/65 (80) 97 08/18/20 12:00 100 08/18/20 12:00 117 08/18/20 12:00 Mechanical Ventilator 08/18/20 11:30 97.4 107 31 101/48 (65) 92 08/18/20 11:30 33 Mechanical Ventilator 100 I&O Intake and Output 08/18/20 08/19/20 19:00 07:00 Intake Total 798.00037 ml 906 ml Output Total 1024 ml 810 ml Balance -225.28007 ml 96 ml IV Total 318.59307 ml 308 ml Tube Feeding 480 ml 480 ml Other 118 ml Output Urine Total 920 ml 760 ml Stool Total 50 ml Chest Tube Drainage Total 104 ml # Bowel Movements 75 Dressing: saturated Cardiovascular: RSR Respiratory: decreased breath sounds Abdomen: soft, non-tender, present bowel sounds, non-distended Extremities: edema, no tenderness, no cyanosis Laboratory Tests Test 08/18/20 12:48 08/19/20 04:00 POC Whole Blood Glucose 136 MG/DL (74-106) H White Blood Count 12.5 K/UL (4.8-10.8) H Red Blood Count 2.88 M/UL (4.70-6.10) L Hemoglobin 9.0 G/DL (14.2-18.0) L Hematocrit 29.8 % (42.0-52.0) L Mean Corpuscular Volume 104 FL (80-99) H Mean Corpuscular Hemoglobin 31.3 PG (27.0-31.0) H Mean Corpuscular Hemoglobin Concent 30.2 G/DL (32.0-36.0) L Red Cell Distribution Width 21.1 % (11.6-14.8) H Platelet Count 195 K/UL (150-450) Mean Platelet Volume 8.3 FL (6.5-10.1) Neutrophils (%) (Auto) % (45.0-75.0) Lymphocytes (%) (Auto) % (20.0-45.0) Monocytes (%) (Auto) % (1.0-10.0) Eosinophils (%) (Auto) % (0.0-3.0) Basophils (%) (Auto) % (0.0-2.0) Differential Total Cells Counted 100 Neutrophils % (Manual) 88 % (45-75) H Lymphocytes % (Manual) 5 % (20-45) L Monocytes % (Manual) 4 % (1-10) Eosinophils % (Manual) 3 % (0-3) Basophils % (Manual) 0 % (0-2) Band Neutrophils 0 % (0-8) Nucleated Red Blood Cells 2 /100 WBC Platelet Estimate Adequate Platelet Morphology Normal Polychromasia 1+ Hypochromasia 1+ Anisocytosis 3+ Macrocytosis 1+ Sodium Level 147 MMOL/L (136-145) H Potassium Level 4.3 MMOL/L (3.5-5.1) Chloride Level 106 MMOL/L (98-107) Carbon Dioxide Level 43 MMOL/L (21-32) *H Anion Gap -2 mmol/L (5-15) L Blood Urea Nitrogen 14 mg/dL (7-18) Creatinine 0.2 MG/DL (0.55-1.30) L Estimat Glomerular Filtration Rate > 60 mL/min (>60) Glucose Level 82 MG/DL (74-106) Calcium Level 8.8 MG/DL (8.5-10.1) Total Bilirubin 0.5 MG/DL (0.2-1.0) Aspartate Amino Transf (AST/SGOT) 97 U/L (15-37) H Alanine Aminotransferase (ALT/SGPT) 77 U/L (12-78) Alkaline Phosphatase 155 U/L (46-116) H Total Protein 5.6 G/DL (6.4-8.2) L Albumin 1.7 G/DL (3.4-5.0) L Globulin 3.9 g/dL Albumin/Globulin Ratio 0.4 (1.0-2.7) L Plan Problems: (1) Pneumothorax Assessment & Plan: 30M covid on vent peep 16 fi02 100 right ptx s/p right chest tube ett complication replaced 07/01 chest tube vac replaced this AM as well given malfunction high risk low tv cxr noted ill appearing tube and lines checked will need to monitor closely unable to wean vent at this time cont current care plan right chest tube with air leak persistent left side okay without leak large subq emphysema likely from right leaking Right pneumothorax is slightly increased from the prior exam, still small. Right chest tube remains in place. Stable satisfactory position of endotracheal and orogastric tubes. Left arm PICC remain stable. Previously demonstrated pneumomediastinum is not definitely evident currently. There is marked improvement of previously demonstrated right supraclavicular subcutaneous emphysema, with mild residual. Bilateral infiltrates remain worsening prognosis guarded chest tube stable but leak with high peep bilateral chest tubes placed now bilateral ptx Chest vent catheter remains in place on the left. Previously demonstrated left pneumothorax has improved considerably, with some residual primarily at the left lung base. Right chest tube remains in place. Small right apical pneumothorax is unchanged. Bilateral subcutaneous emphysema is slightly worse. The endotracheal and orogas tric tube positions are stable and satisfactory. Left arm PICC is again demonstrated. The heart size is normal. Bilateral infiltrates are unchanged Impression: Over 2 days, interim marked improvement of previously demonstrated left pneumothorax, now small Unchanged small right apical pneumothorax Unchanged bilateral infiltrates (2) Respiratory failure Assessment & Plan: prior multiple pna chronic lung issues (3) Coronavirus infection (4) Diabetes (5) Hypercapnia (6) Hypoxia (7) Asthma (8) HTN (hypertension) (9) Obesity (BMI 30-39.9) (10) Acute respiratory distress syndrome (ARDS) due to 2019-nCoV (11) Acute hypoxemic respiratory failure due to COVID-19 (12) Bradycardia (13) Laceration Mulugeta Butler Aug 19, 2020 11:03
--- NOTE | 2020-08-19 12:00 | NUR ---
NURSE NOTES: HR remains elevated. Temp WNL. RR elevated in high 20s to 30s. Will continue to titrate versed and administer pain medication as ordered. WOB imrpoved. Pt appears more calm. Pt sleeping at this time. Will continue to monitor. Oral care and repositioning done.
--- NOTE | 2020-08-19 12:18 | Infectious Diseases Prog Note ---
Assessment/Plan Assessment/Plan antibiotics : none A 1. COVID-19 pneumonia on 100 % Fi O2 of oxygen with O2 saturation 96 %. s/p ivermectin x 2 s/p solumedrol 2. History of asthma. 3. Elevated liver function tests improving 4. klebsiella pneumonia s/p rx 5. thrush s/p rx 6. pneumothorax improving P 1. continue off antibiotics 2. Continue isolation. Subjective ROS Limited/Unobtainable: Yes Allergies: Coded Allergies: No Known Allergies (Unverified , 03/08/17) Objective Last 24 Hour Vital Signs Date Time Temp Pulse Resp B/P (MAP) Pulse Ox O2 Delivery O2 Flow Rate FiO2 08/19/20 12:00 117 08/19/20 12:00 100 08/19/20 12:00 Mechanical Ventilator 08/19/20 12:00 117 32 118/74 (89) 96 08/19/20 11:45 117 29 109/68 (82) 96 08/19/20 11:34 30 Mechanical Ventilator 100 08/19/20 11:30 118 29 110/66 (81) 98 08/19/20 11:15 119 29 113/65 (81) 98 08/19/20 11:00 118 29 118/64 (82) 98 08/19/20 11:00 119 31 118/64 (82) 98 08/19/20 10:45 122 30 105/67 (80) 99 08/19/20 10:30 122 29 111/69 (83) 08/19/20 10:15 125 30 114/66 (82) 99 08/19/20 10:00 123 28 124/67 (86) 08/19/20 10:00 124 30 124/67 (86) 99 08/19/20 09:45 130 34 132/70 (90) 95 08/19/20 09:30 129 31 136/75 (95) 94 08/19/20 09:15 125 34 126/76 (93) 92 08/19/20 09:00 123 35 136/78 (97) 90 08/19/20 09:00 126 33 136/70 (92) 94 08/19/20 08:45 112 34 134/76 (95) 94 08/19/20 08:30 120 34 115/69 (84) 08/19/20 08:15 118 34 116/67 (83) 08/19/20 08:00 100 08/19/20 08:00 Mechanical Ventilator 08/19/20 08:00 119 34 114/70 (85) 99 08/19/20 08:00 98.2 117 32 115/70 (85) 08/19/20 08:00 120 08/19/20 07:45 118 33 119/71 (87) 98 08/19/20 07:30 115 30 124/71 (88) 100 08/19/20 07:15 108 29 116/70 (85) 99 08/19/20 07:00 102 27 111/65 (80) 100 08/19/20 07:00 26 Mechanical Ventilator 100 08/19/20 06:00 101 27 109/69 (82) 98 08/19/20 06:00 26 Mechanical Ventilator 100 08/19/20 05:00 109 26 132/77 (95) 90 08/19/20 05:00 26 Mechanical Ventilator 100 08/19/20 04:00 100 08/19/20 04:00 96.0 117 29 125/72 (89) 97 08/19/20 04:00 26 Mechanical Ventilator 100 08/19/20 04:00 Mechanical Ventilator 08/19/20 03:51 30 Mechanical Ventilator 100 08/19/20 03:02 119 08/19/20 03:00 118 31 120/66 (84) 99 08/19/20 03:00 26 Mechanical Ventilator 100 08/19/20 02:00 116 35 119/66 (83) 99 08/19/20 02:00 26 Mechanical Ventilator 100 08/19/20 01:00 26 Mechanical Ventilator 100 08/19/20 01:00 103 29 111/60 (77) 99 08/19/20 00:32 105 31 100 08/19/20 00:00 96.9 109 28 120/70 (87) 99 08/19/20 00:00 26 Mechanical Ventilator 100 08/19/20 00:00 Mechanical Ventilator 08/18/20 23:30 105 08/18/20 23:00 110 30 113/65 (81) 100 08/18/20 23:00 26 Mechanical Ventilator 100 08/18/20 22:00 113 29 113/60 (77) 100 08/18/20 22:00 26 Mechanical Ventilator 100 08/18/20 21:00 26 Mechanical Ventilator 100 08/18/20 21:00 117 31 104/62 (76) 100 08/18/20 20:11 35 Mechanical Ventilator 100 08/18/20 20:00 96.1 109 32 109/56 (73) 95 08/18/20 20:00 26 Mechanical Ventilator 100 08/18/20 20:00 100 08/18/20 20:00 Mechanical Ventilator 08/18/20 19:38 112 31 100 08/18/20 19:19 102 08/18/20 19:00 98 31 96/54 (68) 95 08/18/20 19:00 29 Mechanical Ventilator 100 08/18/20 18:30 96 29 111/65 (80) 94 08/18/20 18:00 95 25 112/62 (79) 100 08/18/20 18:00 26 Mechanical Ventilator 100 08/18/20 17:30 93 26 109/62 (78) 99 08/18/20 17:00 27 Mechanical Ventilator 100 08/18/20 17:00 98 27 109/66 (80) 99 08/18/20 16:30 105 28 117/67 (84) 98 08/18/20 16:00 100 08/18/20 16:00 Mechanical Ventilator 08/18/20 16:00 97.2 109 29 112/65 (81) 08/18/20 16:00 30 Mechanical Ventilator 100 08/18/20 16:00 106 08/18/20 15:30 110 29 109/65 (80) 98 08/18/20 15:09 114 27 100 08/18/20 15:00 31 Mechanical Ventilator 100 08/18/20 15:00 112 30 113/63 (80) 98 08/18/20 14:00 30 Mechanical Ventilator 100 08/18/20 14:00 121 33 110/62 (78) 94 08/18/20 13:00 30 Mechanical Ventilator 100 08/18/20 13:00 113 28 109/59 (76) 99 08/18/20 12:46 29 Mechanical Ventilator 100 08/18/20 12:30 29 Mechanical Ventilator 100 Height (Feet): 5 Height (Inches): 6.00 Weight (Pounds): 209 HEENT: other - intubated Laboratory Tests Test 08/18/20 12:48 08/18/20 23:07 08/18/20 23:35 08/19/20 04:00 POC Whole Blood Glucose 136 MG/DL (74-106) H Pending 88 MG/DL (74-106) White Blood Count 12.5 K/UL (4.8-10.8) H Red Blood Count 2.88 M/UL (4.70-6.10) L Hemoglobin 9.0 G/DL (14.2-18.0) L Hematocrit 29.8 % (42.0-52.0) L Mean Corpuscular Volume 104 FL (80-99) H Mean Corpuscular Hemoglobin 31.3 PG (27.0-31.0) H Mean Corpuscular Hemoglobin Concent 30.2 G/DL (32.0-36.0) L Red Cell Distribution Width 21.1 % (11.6-14.8) H Platelet Count 195 K/UL (150-450) Mean Platelet Volume 8.3 FL (6.5-10.1) Neutrophils (%) (Auto) % (45.0-75.0) Lymphocytes (%) (Auto) % (20.0-45.0) Monocytes (%) (Auto) % (1.0-10.0) Eosinophils (%) (Auto) % (0.0-3.0) Basophils (%) (Auto) % (0.0-2.0) Differential Total Cells Counted 100 Neutrophils % (Manual) 88 % (45-75) H Lymphocytes % (Manual) 5 % (20-45) L Monocytes % (Manual) 4 % (1-10) Eosinophils % (Manual) 3 % (0-3) Basophils % (Manual) 0 % (0-2) Band Neutrophils 0 % (0-8) Nucleated Red Blood Cells 2 /100 WBC Platelet Estimate Adequate Platelet Morphology Normal Polychromasia 1+ Hypochromasia 1+ Anisocytosis 3+ Macrocytosis 1+ Sodium Level 147 MMOL/L (136-145) H Potassium Level 4.3 MMOL/L (3.5-5.1) Chloride Level 106 MMOL/L (98-107) Carbon Dioxide Level 43 MMOL/L (21-32) *H Anion Gap -2 mmol/L (5-15) L Blood Urea Nitrogen 14 mg/dL (7-18) Creatinine 0.2 MG/DL (0.55-1.30) L Estimat Glomerular Filtration Rate > 60 mL/min (>60) Glucose Level 82 MG/DL (74-106) Calcium Level 8.8 MG/DL (8.5-10.1) Total Bilirubin 0.5 MG/DL (0.2-1.0) Aspartate Amino Transf (AST/SGOT) 97 U/L (15-37) H Alanine Aminotransferase (ALT/SGPT) 77 U/L (12-78) Alkaline Phosphatase 155 U/L (46-116) H Total Protein 5.6 G/DL (6.4-8.2) L Albumin 1.7 G/DL (3.4-5.0) L Globulin 3.9 g/dL Albumin/Globulin Ratio 0.4 (1.0-2.7) L Current Medications Medications (Trade) Dose Ordered Sig/Milagro Route PRN Reason Start Time Stop Time Status Last Admin Dose Admin Acetaminophen (Tylenol) 650 mg Q4H PRN RECTAL Mild Pain (Pain Scale 1-3) 07/24/20 18:15 08/23/20 18:14 07/25/20 11:49 Acetaminophen (Tylenol) 650 mg Q6H PRN NG Temp >100.5 07/26/20 08:30 08/25/20 08:29 08/17/20 22:33 Acetaminophen (Tylenol) 650 mg Q6H PRN NG Mild Pain (Pain Scale 1-3) 07/26/20 08:30 08/25/20 08:29 08/19/20 08:27 Chlorhexidine Gluconate (Marycarmen-Hex 2%) 1 applic DAILY@2000 TOPIC 07/20/20 20:00 10/18/20 19:59 08/18/20 20:11 Dextrose (Dextrose 50%) 25 ml Q30M PRN IV Hypoglycemia 07/23/20 13:15 10/21/20 13:14 Dextrose (Dextrose 50%) 50 ml Q30M PRN IV Hypoglycemia 07/23/20 13:15 10/21/20 13:14 08/15/20 20:26 Dextrose/Sodium Chloride 1,000 ml @ 100 mls/hr Q10H PRN IV WHILE PRONING ONLY 07/24/20 17:45 08/23/20 17:44 08/10/20 05:33 Docusate Sodium (Colace) 100 mg EVERY 12 HOURS NG 07/27/20 21:00 08/26/20 20:59 08/18/20 20:11 Famotidine (Pepcid I.v.) 20 mg Q12HR IVP 08/04/20 21:00 09/03/20 20:59 08/19/20 08:27 Insulin Aspart (NovoLOG) EVERY 6 HOURS SUBQ 07/28/20 00:00 10/21/20 15:59 08/17/20 23:20 Insulin Detemir (Levemir) 13 units EVERY 12 HOURS SUBQ 08/19/20 09:00 11/17/20 08:59 Midazolam HCl 100 mg/Sodium Chloride 200 ml @ 0 mls/hr Q24H IV 08/12/20 18:00 08/19/20 17:59 08/19/20 11:34 Morphine Sulfate (Morphine Sulfate) 1 mg Q4H PRN IVP PAIN 4-10 08/19/20 08:00 08/26/20 07:59 08/19/20 08:26 Ondansetron HCl (Zofran) 4 mg Q6H PRN IVP Nausea & Vomiting 08/15/20 15:45 09/14/20 15:44 08/15/20 15:54 Vitamin B Complex (Vitamin B Complex) 1 tab DAILY NG 07/24/20 09:00 10/09/20 08:59 08/19/20 08:27 Jose Alberto MD Aug 19, 2020 12:18
--- NOTE | 2020-08-19 13:30 | NUR ---
NURSE NOTES: Pt HR elevated above 120. No fever noted. Increased WOB again noted. Pt eyes closed at this time. Morphine administered.
[2020-08-19] MEDS ORDERED: NS 275ml ONE ×3 (13:36→20:02)
[2020-08-19] MEDS ORDERED: Tubing IV Secondary IV ONE (13:36)
[2020-08-19] MEDS ORDERED: Sterile Water Irrig 1000ml IRRIG ONE ×3 (13:36→20:02)
[2020-08-19] MEDS ORDERED: D5W 275ml ONE (13:36)
--- NOTE | 2020-08-19 14:00 | NUR ---
RD ASSESSMENT & RECOMMENDATIONS SEE CARE ACTIVITY FOR COMPLETE ASSESSMENT DAILY ESTIMATED NEEDS: Needs based on Critical care 72kg abw 22-28 kcals/kg 6709-0975 total kcals 1.2-2 g protein/kg 86-144 g total protein 25-30 mL/kg 1525-8740 total fluid mLs NUTRITION DIAGNOSIS: * Swallowing difficulty R/T respiratory failure as evidenced by pt now orally intubated, on OGT feeds. . * Altered nutrition related lab values r/t hyperglcyemia as evidenced by BG POC glu in the 300's-> now POC 83, 98, 57, 74, 113. CURRENT TF:Glucerna 1.2 @ 40ml/hr ENTERAL NUTRITION RECOMMENDATIONS: Glucerna 1.2 @ 60ml/hr x 24 hrs to provide 1440ml, 1728kcal, 86g prot, 1159ml free water - INCREASE goal rate to 60ml/hr x 24 hrs to meet est kcal/prot needs - HOB over 30 degrees/ water flush per MD ADDITIONAL RECOMMENDATIONS: 1) Rec to check HgA1C for eval 2) Monitor BGs closely- w/ episodes of hypoglycemia Increase TF rate as above, monitor need to further lower Levemir 3) As able, recalibrate bed scale d/t variable daily wts 4) Monitor lytes, replete as needed . .
--- NOTE | 2020-08-19 15:35 | NUR ---
[employer] DeveloperAppeals Coordinator SI: Respiratory Failure, Covid-PNA, ETT/Vent Support, pneumothorax-bilateral chest tubes to suction T 97.1 (ax) , HR 124, RR 30, BP 116/60 AC 26, TV 500, PEEP 16, FiO2 100%, O2 Sat 100% WBC 12.5, CO2 43, anion gap -2, creatinine 0.2 Cxray no significant change compared to previous exam IS: Midazolam GTT Pepcid IV q 12 h D5/NS at 100cc/hr Levemir 13U sq q 12 h ICU Status
--- NOTE | 2020-08-19 16:10 | NUR ---
NURSE NOTES: Pt WOB increased. SpO2 dropping to high 80s. HR elevated in 130s. Will continue to administer morphine as ordered. Versed at max dose. Ordered stat chest xray to ensure pt lungs stable and no new or worsened pneumothorax is present. Will follow up. Addendum: 08/19/20 at 1933 by Ida Lopez RN Oral care and repositioning done at this time.
--- NOTE | 2020-08-19 16:27 | Diagnostic Imaging Report ---
Indication: Dyspnea Technique: XRAY Chest 1v Comparison: 08/18/2020 Findings: Extensive bilateral infiltrates and subcutaneous emphysema in the neck again noted. Bilateral chest tubes remain in place. No significant interval change in trace bilateral pneumothoraces. Probable pneumomediastinum is also unchanged. Endotracheal tube, enteric tube and right arm PICC line remain in place. Heart size and osseous structures stable. IMPRESSION: No significant interval change in the radiographic appearance of the chest compared to one day prior.
--- NOTE | 2020-08-19 17:15 | NUR ---
NURSE NOTES: Chest xray shows no change since prior study. Pt HR remains elevated. SPO2 remains in high 80s. Pt appears uncomfortable with increased WOB. Will administer morphine when possible. ABG ordered. Will notify Dr Price regarding result.
--- NOTE | 2020-08-19 19:00 | NUR ---
NURSE NOTES: Pt SPO2 improved after PRN morphine dose and bed bath. HR remains elevated. Will continue to monitor. Pt repositioned.
--- NOTE | 2020-08-19 19:15 | NUR ---
HAND-OFF: Report given to ELIER Mcgarry. Endorsed to notify Dr Price regarding ABG result.
[2020-08-19] MEDS: Dyna-Hex 2% Top Sol 2oz TOPIC SCH (19:52)
--- NOTE | 2020-08-19 20:06 | NUR ---
NURSE NOTES: Paged Dr. Price to report abnormal ABG results and patient tachypneic with crepitus palpable over right chest. Dr. Price aware, orders received read back and carried out.
[2020-08-19] MEDS ORDERED: Morphine Sulfate 2mg/ml Inj(IV/IM USE ONLY) IVP PRN (21:18)
--- NOTE | 2020-08-19 22:00 | NUR ---
NURSE NOTES: Patient received from ELIER Prieto. Patient sedated with 7.5 ETT at 25cm on ventilator AC TV FiO2 100% PEEP 16. BP127/68 HR122 sinus tachy on monitor and afebrile with cooling blanket on. Left upper arm PICC line running versed 20mg/hr with only one port patent. Bilateral chest tubes in place with crepitus palpable on right upper chest and left upper chest distention noted. Left nare NGT running Glucerna 1.2 @40ml/hr with no residual noted. Biswas catheter draining dark yen urine. Patient repositioned and oral care provided.
--- NOTE | 2020-08-19 22:17 | Cardiology Progress Note ---
Subjective DATE OF SERVICE: Aug 19, 2020 Condition remains critical and prognosis guarded He remains on full vent support, on high flow FIO2 - orally intubated. s/p left PTX - chest tube placed with improvement; still with subcutaneous emphysema. Episodic SVT noted Objective Last 24 Hour Vital Signs Date Time Temp Pulse Resp B/P (MAP) Pulse Ox O2 Delivery O2 Flow Rate FiO2 08/19/20 21:00 28 Mechanical Ventilator 100 08/19/20 21:00 117 27 114/76 (89) 97 08/19/20 20:00 Mechanical Ventilator 08/19/20 20:00 100 08/19/20 20:00 97.7 123 28 112/66 (81) 97 08/19/20 20:00 27 Mechanical Ventilator 100 08/19/20 20:00 125 08/19/20 19:14 84 30 100 08/19/20 19:00 27 Mechanical Ventilator 100 08/19/20 19:00 122 28 127/68 (87) 87 08/19/20 18:00 134 30 115/66 (82) 90 08/19/20 17:50 34 Mechanical Ventilator 100 08/19/20 17:49 32 Mechanical Ventilator 100 08/19/20 17:00 36 Mechanical Ventilator 100 08/19/20 17:00 136 37 143/46 (78) 90 08/19/20 16:00 100 08/19/20 16:00 Mechanical Ventilator 08/19/20 16:00 137 08/19/20 16:00 34 Mechanical Ventilator 100 08/19/20 16:00 138 39 136/80 (98) 90 08/19/20 15:20 136 38 100 08/19/20 15:00 97.1 124 30 116/60 (78) 100 08/19/20 15:00 31 Mechanical Ventilator 100 08/19/20 14:00 32 Mechanical Ventilator 100 08/19/20 14:00 120 32 108/57 (74) 100 08/19/20 13:00 121 33 106/61 (76) 100 08/19/20 13:00 30 Mechanical Ventilator 100 08/19/20 12:00 117 08/19/20 12:00 100 08/19/20 12:00 Mechanical Ventilator 08/19/20 12:00 117 32 118/74 (89) 96 08/19/20 12:00 31 Mechanical Ventilator 100 08/19/20 12:00 118 30 100 Mechanical Ventilator 100 08/19/20 11:45 117 29 109/68 (82) 96 08/19/20 11:34 30 Mechanical Ventilator 100 08/19/20 11:30 118 29 110/66 (81) 98 08/19/20 11:30 30 Mechanical Ventilator 100 08/19/20 11:20 118 30 100 08/19/20 11:15 119 29 113/65 (81) 98 08/19/20 11:00 118 29 118/64 (82) 98 08/19/20 11:00 29 Mechanical Ventilator 100 08/19/20 11:00 119 31 118/64 (82) 98 08/19/20 10:45 122 30 105/67 (80) 99 08/19/20 10:30 122 29 111/69 (83) 08/19/20 10:15 125 30 114/66 (82) 99 08/19/20 10:00 123 28 124/67 (86) 08/19/20 10:00 30 Mechanical Ventilator 100 08/19/20 10:00 124 30 124/67 (86) 99 08/19/20 09:45 130 34 132/70 (90) 95 08/19/20 09:30 129 31 136/75 (95) 94 08/19/20 09:15 125 34 126/76 (93) 92 08/19/20 09:00 123 35 136/78 (97) 90 08/19/20 09:00 33 Mechanical Ventilator 100 08/19/20 09:00 126 33 136/70 (92) 94 08/19/20 08:45 112 34 134/76 (95) 94 08/19/20 08:30 120 34 115/69 (84) 08/19/20 08:15 118 34 116/67 (83) 08/19/20 08:00 100 08/19/20 08:00 34 Mechanical Ventilator 100 08/19/20 08:00 Mechanical Ventilator 08/19/20 08:00 119 34 114/70 (85) 99 08/19/20 08:00 98.2 117 32 115/70 (85) 08/19/20 08:00 120 08/19/20 07:45 118 33 119/71 (87) 98 08/19/20 07:30 115 30 124/71 (88) 100 08/19/20 07:20 119 33 100 08/19/20 07:15 108 29 116/70 (85) 99 08/19/20 07:00 102 27 111/65 (80) 100 08/19/20 07:00 26 Mechanical Ventilator 100 08/19/20 06:00 101 27 109/69 (82) 98 08/19/20 06:00 26 Mechanical Ventilator 100 08/19/20 05:00 109 26 132/77 (95) 90 08/19/20 05:00 26 Mechanical Ventilator 100 08/19/20 04:00 100 08/19/20 04:00 96.0 117 29 125/72 (89) 97 08/19/20 04:00 26 Mechanical Ventilator 100 08/19/20 04:00 Mechanical Ventilator 08/19/20 03:51 30 Mechanical Ventilator 100 08/19/20 03:02 119 08/19/20 03:00 118 31 120/66 (84) 99 08/19/20 03:00 26 Mechanical Ventilator 100 08/19/20 02:00 116 35 119/66 (83) 99 08/19/20 02:00 26 Mechanical Ventilator 100 08/19/20 01:00 26 Mechanical Ventilator 100 08/19/20 01:00 103 29 111/60 (77) 99 08/19/20 00:32 105 31 100 08/19/20 00:00 96.9 109 28 120/70 (87) 99 08/19/20 00:00 26 Mechanical Ventilator 100 08/19/20 00:00 Mechanical Ventilator 08/18/20 23:30 105 08/18/20 23:00 110 30 113/65 (81) 100 08/18/20 23:00 26 Mechanical Ventilator 100 HEENT: Orally intubated, Mechanically Ventilated, Thin secretions ET Tube RHYTHM: SB LUNGS: bilateral rhonchi, other - right chest tube CARDIAC: regular rhythm, normal S1 and S2, bradycardia ABDOMEN: normal bowel sounds, non tender, soft EXTREMITIES: normal range of motion, non-tender Laboratory Tests Test 08/18/20 23:07 08/18/20 23:35 08/19/20 04:00 08/19/20 17:29 POC Whole Blood Glucose Pending 88 MG/DL (74-106) White Blood Count 12.5 K/UL (4.8-10.8) H Red Blood Count 2.88 M/UL (4.70-6.10) L Hemoglobin 9.0 G/DL (14.2-18.0) L Hematocrit 29.8 % (42.0-52.0) L Mean Corpuscular Volume 104 FL (80-99) H Mean Corpuscular Hemoglobin 31.3 PG (27.0-31.0) H Mean Corpuscular Hemoglobin Concent 30.2 G/DL (32.0-36.0) L Red Cell Distribution Width 21.1 % (11.6-14.8) H Platelet Count 195 K/UL (150-450) Mean Platelet Volume 8.3 FL (6.5-10.1) Neutrophils (%) (Auto) % (45.0-75.0) Lymphocytes (%) (Auto) % (20.0-45.0) Monocytes (%) (Auto) % (1.0-10.0) Eosinophils (%) (Auto) % (0.0-3.0) Basophils (%) (Auto) % (0.0-2.0) Differential Total Cells Counted 100 Neutrophils % (Manual) 88 % (45-75) H Lymphocytes % (Manual) 5 % (20-45) L Monocytes % (Manual) 4 % (1-10) Eosinophils % (Manual) 3 % (0-3) Basophils % (Manual) 0 % (0-2) Band Neutrophils 0 % (0-8) Nucleated Red Blood Cells 2 /100 WBC Platelet Estimate Adequate Platelet Morphology Normal Polychromasia 1+ Hypochromasia 1+ Anisocytosis 3+ Macrocytosis 1+ Sodium Level 147 MMOL/L (136-145) H Potassium Level 4.3 MMOL/L (3.5-5.1) Chloride Level 106 MMOL/L (98-107) Carbon Dioxide Level 43 MMOL/L (21-32) *H Anion Gap -2 mmol/L (5-15) L Blood Urea Nitrogen 14 mg/dL (7-18) Creatinine 0.2 MG/DL (0.55-1.30) L Estimat Glomerular Filtration Rate > 60 mL/min (>60) Glucose Level 82 MG/DL (74-106) Calcium Level 8.8 MG/DL (8.5-10.1) Total Bilirubin 0.5 MG/DL (0.2-1.0) Aspartate Amino Transf (AST/SGOT) 97 U/L (15-37) H Alanine Aminotransferase (ALT/SGPT) 77 U/L (12-78) Alkaline Phosphatase 155 U/L (46-116) H Total Protein 5.6 G/DL (6.4-8.2) L Albumin 1.7 G/DL (3.4-5.0) L Globulin 3.9 g/dL Albumin/Globulin Ratio 0.4 (1.0-2.7) L Arterial Blood pH 7.334 (7.350-7.450) Arterial Blood Partial Pressure CO2 94.7 mmHg (35.0-45.0) *H Arterial Blood Partial Pressure O2 35.6 mmHg (75.0-100.0) Arterial Blood HCO3 49.3 mmol/L (22.0-26.0) *H Arterial Blood Oxygen Saturation 67.8 % (95-100) *L Arterial Blood Base Excess 19.1 (-2-2) *H Jacob Test Positive Assessment/Plan Assessment/Plan Covid 19 PNA Bilateral PTX Secondary sinus tachycardia K.pneumonia PNA Acute respiratory failure with severe Hypoxia - slightly improved over past day. Diabetes mellitus with hyperglycemia due to steroids Transaminitis Mod protein/calorie malnutrition Dehydration/hypernatremia resolving Paroxysmal SVT CRITICAL & GUARDED Chest tube management/vent support Continuous cardiac monitoring Anticoagulation and steroid rx Titrate oxygen as able; prone. Vent settings adjusted by pulmonary; still cannot tolerate less than 100% FIO2. Anti-viral rx Protein suppl Free water replacement Insulin cov'g by SS; levemir dose advanced further. May consider diltiazem to help suppress atrial arrhythmias Chuck Swain MD Aug 19, 2020 22:17
[2020-08-20] VITALS (24 sets, daily range): BP systolic 107–139; BP diastolic 61–82
--- NOTE | 2020-08-20 | NUR ---
NURSE NOTES: Patient sedated with 7.5 ETT at 25cm on ventilator AC TV FiO2 100% PEEP 16. BP118/77 HR109 sinus tachy on monitor and afebrile with cooling blanket on. Left upper arm PICC line running versed 20mg/hr with only one port patent. Bilateral chest tubes in place with crepitus palpable on right upper chest and left upper chest distention noted. Left nare NGT running glucerna 1.2 @40ml/hr. Biswas catheter draining dark yen urine. Patient repositioned and oral care provided.
--- NOTE | 2020-08-20 02:00 | NUR ---
NURSE NOTES: Patient sedated with 7.5 ETT at 25cm on ventilator AC TV FiO2 100% PEEP 16. BP128/79 HR109 sinus tachy on monitor. Left upper arm PICC line running versed 20mg/hr. Left nare NGT running Glucerna 1.2 @40ml/hr. Biswas catheter draining dark yen urine. Rectal tube in place. Patient repositioned and oral care provided.
--- NOTE | 2020-08-20 04:00 | NUR ---
NURSE NOTES: Patient sedated with 7.5 ETT at 25cm on ventilator AC TV FiO2 100% PEEP 16. BP112/65 HR115 sinus tachy on monitor and afebrile with cooling blanket on. Left upper arm PICC line running versed 20mg/hr with only one port patent. Left nare NGT running Glucerna 1.2 @40ml/hr. Biswas catheter draining dark yen urine. Rectal tube in place. Patient given CHG bath, repositioned and oral care provided.
[2020-08-20] MEDS: Midazolam HCl 50mg/10ml vial 100 MG in NS 180 ML IV SCH ×3 (04:01→21:58)
--- NOTE | 2020-08-20 06:00 | NUR ---
NURSE NOTES: Patient sedated with 7.5 ETT at 25cm on ventilator AC TV FiO2 100% PEEP 16. BP132/80 HR141 sinus tachy on monitor. Left upper arm PICC line running versed 20mg/hr. Left nare NGT running Glucerna 1.2 @40ml/hr. Bilateral chest tubes in place with crepitus palpable on right upper chest and left upper chest distention noted. Biswas catheter draining dark yen urine. Rectal tube in place. Patient repositioned and oral care provided.
[2020-08-20] MEDS: NovoLOG Insulin Flexpen SUBQ SCH ×5 (06:06→23:40)
[2020-08-20 06:23] LABS: HEMATOCRIT 30.8 % (42.0-52.0); HEMOGLOBIN 9.1 G/DL (14.2-18.0); MEAN CORPUSCULAR VOLUME 105 FL (80-99); PLATELET COUNT 188 K/UL (150-450); RED BLOOD COUNT 2.94 M/UL (4.70-6.10); RED CELL DISTRIBUTION WIDTH 21.4 % (11.6-14.8)
[2020-08-20 06:38] LABS: ALANINE AMINOTRANSFERASE 80 U/L (12-78); ALBUMIN 1.7 G/DL (3.4-5.0); ALBUMIN/GLOBULIN RATIO 0.4 (1.0-2.7); ALKALINE PHOSPHATASE 153 U/L (46-116); ANION GAP -1 mmol/L (5-15); ASPARTATE AMINO TRANSFERASE 104 U/L (15-37); BILIRUBIN,TOTAL 0.7 MG/DL (0.2-1.0); BLOOD UREA NITROGEN 16 mg/dL (7-18); CALCIUM 8.6 MG/DL (8.5-10.1); CHLORIDE 105 MMOL/L (98-107); CREATININE 0.3 MG/DL (0.55-1.30); POTASSIUM 4.7 MMOL/L (3.5-5.1); SODIUM 147 MMOL/L (136-145)
[2020-08-20 06:51] LABS: CARBON DIOXIDE 43 MMOL/L (21-32)
--- NOTE | 2020-08-20 07:03 | NUR ---
RADIOLOGY DEPT., LATE ENTRY FOR 08/19/2020. CHEST X-RAY PERFORMED AT 16:13HRS.-P.DYE
--- NOTE | 2020-08-20 07:47 | NUR ---
NURSE HAND-OFF REPORT: Latest Vital Signs: Temperature 97.5 , Pulse 156 , B/P 139 /82 , Respiratory Rate 36 , O2 SAT 80 , Mechanical Ventilator, O2 Flow Rate . Vital Sign Comment: [place] aware at bedside EKG Rhythm: Sinus Tachycardia Rhythm change?: N MD Notified?: Ildefonso Diana at bedside for re-intubation MD Response: Latest Bradley Fall Score: 60 Fall Risk: High Risk Safety Measures: Call light Within Reach, Bed Alarm Zone 1, Side Rails Side Rails x3, Bed position Low and Locked. Fall Precautions: Yellow Socks Yellow Gown Door Sign Patient Fall Education Report given to ELIER Weber.
--- NOTE | 2020-08-20 07:48 | General Progress Note ---
Subjective ROS Limited/Unobtainable: Yes Constitutional: Reports: malaise, weakness HEENT: Reports: no symptoms Cardiovascular: Reports: no symptoms Respiratory: Reports: shortness of breath Gastrointestinal/Abdominal: Reports: difficulty swallowing Genitourinary: Reports: no symptoms Neurologic/Psychiatric: Reports: no symptoms Endocrine: Reports: no symptoms Hematologic/Lymphatic: Reports: no symptoms Allergies: Coded Allergies: No Known Allergies (Unverified , 03/08/17) All Systems: reviewed and negative except above Subjective doing poorly. worsening hypoxemia and sob this am. tachycardic. decrease o2 sats. on peep 16 fio2 100% Objective Last 24 Hour Vital Signs Date Time Temp Pulse Resp B/P (MAP) Pulse Ox O2 Delivery O2 Flow Rate FiO2 08/20/20 07:00 156 37 139/82 (101) 80 08/20/20 07:00 36 Mechanical Ventilator 100 08/20/20 06:00 37 Mechanical Ventilator 100 08/20/20 06:00 141 37 132/80 (97) 82 08/20/20 05:00 134 34 133/63 (86) 85 08/20/20 05:00 34 Mechanical Ventilator 100 08/20/20 04:01 30 Mechanical Ventilator 100 08/20/20 04:00 114 08/20/20 04:00 97.5 115 31 112/65 (81) 95 08/20/20 04:00 Mechanical Ventilator 08/20/20 04:00 100 08/20/20 03:37 99 31 100 08/20/20 03:00 109 32 107/70 (82) 100 08/20/20 02:00 106 31 128/79 (95) 96 08/20/20 02:00 31 Mechanical Ventilator 100 08/20/20 01:00 108 28 115/77 (90) 97 08/20/20 01:00 28 Mechanical Ventilator 100 08/20/20 00:00 97.1 109 29 118/77 (91) 96 08/20/20 00:00 109 08/20/20 00:00 27 Mechanical Ventilator 100 08/20/20 00:00 Mechanical Ventilator 08/20/20 00:00 100 08/19/20 23:33 112 32 100 08/19/20 23:00 113 32 126/78 (94) 97 08/19/20 23:00 26 Mechanical Ventilator 100 08/19/20 22:58 28 Mechanical Ventilator 100 08/19/20 22:00 113 29 120/73 (89) 96 08/19/20 22:00 27 Mechanical Ventilator 100 08/19/20 21:00 28 Mechanical Ventilator 100 08/19/20 21:00 117 27 114/76 (89) 97 08/19/20 20:00 Mechanical Ventilator 08/19/20 20:00 100 08/19/20 20:00 97.7 123 28 112/66 (81) 97 08/19/20 20:00 27 Mechanical Ventilator 100 08/19/20 20:00 125 08/19/20 19:14 84 30 100 08/19/20 19:00 27 Mechanical Ventilator 100 08/19/20 19:00 122 28 127/68 (87) 87 08/19/20 18:00 134 30 115/66 (82) 90 08/19/20 17:50 34 Mechanical Ventilator 100 08/19/20 17:49 32 Mechanical Ventilator 100 08/19/20 17:00 36 Mechanical Ventilator 100 08/19/20 17:00 136 37 143/46 (78) 90 08/19/20 16:00 100 08/19/20 16:00 Mechanical Ventilator 08/19/20 16:00 137 08/19/20 16:00 34 Mechanical Ventilator 100 08/19/20 16:00 138 39 136/80 (98) 90 08/19/20 15:20 136 38 100 08/19/20 15:00 97.1 124 30 116/60 (78) 100 08/19/20 15:00 31 Mechanical Ventilator 100 08/19/20 14:00 32 Mechanical Ventilator 100 08/19/20 14:00 120 32 108/57 (74) 100 08/19/20 13:00 121 33 106/61 (76) 100 08/19/20 13:00 30 Mechanical Ventilator 100 08/19/20 12:00 117 08/19/20 12:00 100 08/19/20 12:00 Mechanical Ventilator 08/19/20 12:00 117 32 118/74 (89) 96 08/19/20 12:00 31 Mechanical Ventilator 100 08/19/20 12:00 118 30 100 Mechanical Ventilator 100 08/19/20 11:45 117 29 109/68 (82) 96 08/19/20 11:34 30 Mechanical Ventilator 100 08/19/20 11:30 118 29 110/66 (81) 98 08/19/20 11:30 30 Mechanical Ventilator 100 08/19/20 11:20 118 30 100 08/19/20 11:15 119 29 113/65 (81) 98 08/19/20 11:00 118 29 118/64 (82) 98 08/19/20 11:00 29 Mechanical Ventilator 100 08/19/20 11:00 119 31 118/64 (82) 98 08/19/20 10:45 122 30 105/67 (80) 99 08/19/20 10:30 122 29 111/69 (83) 08/19/20 10:15 125 30 114/66 (82) 99 08/19/20 10:00 123 28 124/67 (86) 08/19/20 10:00 30 Mechanical Ventilator 100 08/19/20 10:00 124 30 124/67 (86) 99 08/19/20 09:45 130 34 132/70 (90) 95 08/19/20 09:30 129 31 136/75 (95) 94 08/19/20 09:15 125 34 126/76 (93) 92 08/19/20 09:00 123 35 136/78 (97) 90 08/19/20 09:00 33 Mechanical Ventilator 100 08/19/20 09:00 126 33 136/70 (92) 94 08/19/20 08:45 112 34 134/76 (95) 94 08/19/20 08:30 120 34 115/69 (84) 08/19/20 08:15 118 34 116/67 (83) 08/19/20 08:00 100 08/19/20 08:00 34 Mechanical Ventilator 100 08/19/20 08:00 Mechanical Ventilator 08/19/20 08:00 119 34 114/70 (85) 99 08/19/20 08:00 98.2 117 32 115/70 (85) 08/19/20 08:00 120 Intake and Output 08/19/20 08/20/20 19:00 07:00 Intake Total 900 ml 931.88982 ml Output Total 390 ml 550 ml Balance 510 ml 381.89651 ml Free Water 90 ml IV Total 420 ml 361.37977 ml Tube Feeding 480 ml 480 ml Output Urine Total 295 ml 350 ml Stool Total 50 ml Chest Tube Drainage Total 95 ml 150 ml # Bowel Movements 1 Laboratory Tests 08/19/20 17:29: Arterial Blood pH 7.334L, Arterial Blood Partial Pressure CO2 94.7*H, Arterial Blood Partial Pressure O2 35.6*L, Arterial Blood HCO3 49.3*H, Arterial Blood Oxygen Saturation 67.8*L, Arterial Blood Base Excess 19.1*H, Jacob Test Positive 08/20/20 05:30: White Blood Count 17.0H, Red Blood Count 2.94L, Hemoglobin 9.1L, Hematocrit 30.8L, Mean Corpuscular Volume 105H, Mean Corpuscular Hemoglobin 31.1H, Mean Corpuscular Hemoglobin Concent 29.7L, Red Cell Distribution Width 21.4H, Platelet Count 188, Mean Platelet Volume 8.3, Neutrophils (%) (Auto) , Lymphocytes (%) (Auto) , Monocytes (%) (Auto) , Eosinophils (%) (Auto) , Basophils (%) (Auto) , Neutrophils % (Manual) [Pending], Lymphocytes % (Manual) [Pending], Platelet Estimate [Pending], Platelet Morphology [Pending], Sodium Level 147H, Potassium Level 4.7, Chloride Level 105, Carbon Dioxide Level 43*H, Anion Gap -1L, Blood Urea Nitrogen 16, Creatinine 0.3L, Estimat Glomerular Filtration Rate > 60, Glucose Level 142H, Calcium Level 8.6, Total Bilirubin 0.7, Aspartate Amino Transf (AST/SGOT) 104H, Alanine Aminotransferase (ALT/SGPT) 80H, Alkaline Phosphatase 153H, Total Protein 5.9L, Albumin 1.7L, Globulin 4.2, Albumin/Globulin Ratio 0.4L Height (Feet): 5 Height (Inches): 6.00 Weight (Pounds): 209 General Appearance: lethargic, severe distress Cardiovascular: tachycardia Respiratory/Chest: decreased breath sounds Abdomen: normal bowel sounds, non tender, soft Edema: mild edema Assessment/Plan Problem List: (1) Coronavirus infection ICD Codes: B34.2 - Coronavirus infection, unspecified SNOMED: 573876800 (2) Respiratory failure ICD Codes: J96.90 - Respiratory failure, unspecified, unspecified whether with hypoxia or hypercapnia SNOMED: 767531249 (3) Hypercapnia ICD Codes: R06.89 - Other abnormalities of breathing SNOMED: 62692101, 368504500 (4) Hypoxia ICD Codes: R09.02 - Hypoxemia SNOMED: 405514481 (5) Asthma ICD Codes: J45.909 - Unspecified asthma, uncomplicated SNOMED: 570163759, 877601848 (6) Pneumothorax ICD Codes: J93.9 - Pneumothorax, unspecified SNOMED: 09044551 Status: progressing, not improved Assessment/Plan: stat cxr ordered stat abg cont resp rx and vent support dvt/stress ulcer prophylaxis very poor prognosis dnr Rolando Cherry MD Aug 20, 2020 07:48
--- NOTE | 2020-08-20 08:00 | Infectious Diseases Prog Note ---
Assessment/Plan Assessment/Plan A: 1. COVID-19 pneumonia. 2. History of asthma. 3. Elevated liver function tests. 4. Fatty liver 5. DM with hyperglycemia 6. Leukocytosis worsening 7. Hypoxic respiratory failure 8. Gram negative pneumonia 9. Positive blood culture with CoANS PLAN: 1. Continue Methylprednisone 2. .Poor prognosis, become DNR 3. case was D/W RN Subjective ROS Limited/Unobtainable: Yes Allergies: Coded Allergies: No Known Allergies (Unverified , 03/08/17) Objective Last 24 Hour Vital Signs Date Time Temp Pulse Resp B/P (MAP) Pulse Ox O2 Delivery O2 Flow Rate FiO2 08/20/20 07:00 156 37 139/82 (101) 80 08/20/20 07:00 36 Mechanical Ventilator 100 08/20/20 06:00 37 Mechanical Ventilator 100 08/20/20 06:00 141 37 132/80 (97) 82 08/20/20 05:00 134 34 133/63 (86) 85 08/20/20 05:00 34 Mechanical Ventilator 100 08/20/20 04:01 30 Mechanical Ventilator 100 08/20/20 04:00 114 08/20/20 04:00 97.5 115 31 112/65 (81) 95 08/20/20 04:00 Mechanical Ventilator 08/20/20 04:00 100 08/20/20 03:37 99 31 100 08/20/20 03:00 109 32 107/70 (82) 100 08/20/20 02:00 106 31 128/79 (95) 96 08/20/20 02:00 31 Mechanical Ventilator 100 08/20/20 01:00 108 28 115/77 (90) 97 08/20/20 01:00 28 Mechanical Ventilator 100 08/20/20 00:00 97.1 109 29 118/77 (91) 96 08/20/20 00:00 109 08/20/20 00:00 27 Mechanical Ventilator 100 08/20/20 00:00 Mechanical Ventilator 08/20/20 00:00 100 08/19/20 23:33 112 32 100 08/19/20 23:00 113 32 126/78 (94) 97 08/19/20 23:00 26 Mechanical Ventilator 100 08/19/20 22:58 28 Mechanical Ventilator 100 08/19/20 22:00 113 29 120/73 (89) 96 08/19/20 22:00 27 Mechanical Ventilator 100 08/19/20 21:00 28 Mechanical Ventilator 100 08/19/20 21:00 117 27 114/76 (89) 97 08/19/20 20:00 Mechanical Ventilator 08/19/20 20:00 100 08/19/20 20:00 97.7 123 28 112/66 (81) 97 08/19/20 20:00 27 Mechanical Ventilator 100 08/19/20 20:00 125 08/19/20 19:14 84 30 100 08/19/20 19:00 27 Mechanical Ventilator 100 08/19/20 19:00 122 28 127/68 (87) 87 08/19/20 18:00 134 30 115/66 (82) 90 08/19/20 17:50 34 Mechanical Ventilator 100 08/19/20 17:49 32 Mechanical Ventilator 100 08/19/20 17:00 36 Mechanical Ventilator 100 08/19/20 17:00 136 37 143/46 (78) 90 08/19/20 16:00 100 08/19/20 16:00 Mechanical Ventilator 08/19/20 16:00 137 08/19/20 16:00 34 Mechanical Ventilator 100 08/19/20 16:00 138 39 136/80 (98) 90 08/19/20 15:20 136 38 100 08/19/20 15:00 97.1 124 30 116/60 (78) 100 08/19/20 15:00 31 Mechanical Ventilator 100 08/19/20 14:00 32 Mechanical Ventilator 100 08/19/20 14:00 120 32 108/57 (74) 100 08/19/20 13:00 121 33 106/61 (76) 100 08/19/20 13:00 30 Mechanical Ventilator 100 08/19/20 12:00 117 08/19/20 12:00 100 08/19/20 12:00 Mechanical Ventilator 08/19/20 12:00 117 32 118/74 (89) 96 08/19/20 12:00 31 Mechanical Ventilator 100 08/19/20 12:00 118 30 100 Mechanical Ventilator 100 08/19/20 11:45 117 29 109/68 (82) 96 08/19/20 11:34 30 Mechanical Ventilator 100 08/19/20 11:30 118 29 110/66 (81) 98 08/19/20 11:30 30 Mechanical Ventilator 100 08/19/20 11:20 118 30 100 08/19/20 11:15 119 29 113/65 (81) 98 08/19/20 11:00 118 29 118/64 (82) 98 08/19/20 11:00 29 Mechanical Ventilator 100 08/19/20 11:00 119 31 118/64 (82) 98 08/19/20 10:45 122 30 105/67 (80) 99 08/19/20 10:30 122 29 111/69 (83) 08/19/20 10:15 125 30 114/66 (82) 99 08/19/20 10:00 123 28 124/67 (86) 08/19/20 10:00 30 Mechanical Ventilator 100 08/19/20 10:00 124 30 124/67 (86) 99 08/19/20 09:45 130 34 132/70 (90) 95 08/19/20 09:30 129 31 136/75 (95) 94 08/19/20 09:15 125 34 126/76 (93) 92 08/19/20 09:00 123 35 136/78 (97) 90 08/19/20 09:00 33 Mechanical Ventilator 100 08/19/20 09:00 126 33 136/70 (92) 94 08/19/20 08:45 112 34 134/76 (95) 94 08/19/20 08:30 120 34 115/69 (84) 08/19/20 08:15 118 34 116/67 (83) 08/19/20 08:00 100 08/19/20 08:00 34 Mechanical Ventilator 100 08/19/20 08:00 Mechanical Ventilator 08/19/20 08:00 119 34 114/70 (85) 99 08/19/20 08:00 98.2 117 32 115/70 (85) 08/19/20 08:00 120 Height (Feet): 5 Height (Inches): 6.00 Weight (Pounds): 209 HEENT: mucous membranes moist, other - orally intubated Respiratory/Chest: respiratory distress, other - on ventilator,[id number]%, bilateral chest tubes Cardiovascular: tachycardia, other - left arm PICC line Abdomen: soft, non tender Neurologic/Psychiatric: other - sedated Laboratory Tests Test 08/19/20 17:29 08/20/20 05:30 Arterial Blood pH 7.334 (7.350-7.450) Arterial Blood Partial Pressure CO2 94.7 mmHg (35.0-45.0) *H Arterial Blood Partial Pressure O2 35.6 mmHg (75.0-100.0) Arterial Blood HCO3 49.3 mmol/L (22.0-26.0) *H Arterial Blood Oxygen Saturation 67.8 % (95-100) *L Arterial Blood Base Excess 19.1 (-2-2) *H Jacob Test Positive White Blood Count 17.0 K/UL (4.8-10.8) H Red Blood Count 2.94 M/UL (4.70-6.10) L Hemoglobin 9.1 G/DL (14.2-18.0) L Hematocrit 30.8 % (42.0-52.0) L Mean Corpuscular Volume 105 FL (80-99) H Mean Corpuscular Hemoglobin 31.1 PG (27.0-31.0) H Mean Corpuscular Hemoglobin Concent 29.7 G/DL (32.0-36.0) L Red Cell Distribution Width 21.4 % (11.6-14.8) H Platelet Count 188 K/UL (150-450) Mean Platelet Volume 8.3 FL (6.5-10.1) Neutrophils (%) (Auto) % (45.0-75.0) Lymphocytes (%) (Auto) % (20.0-45.0) Monocytes (%) (Auto) % (1.0-10.0) Eosinophils (%) (Auto) % (0.0-3.0) Basophils (%) (Auto) % (0.0-2.0) Neutrophils % (Manual) Pending Lymphocytes % (Manual) Pending Platelet Estimate Pending Platelet Morphology Pending Sodium Level 147 MMOL/L (136-145) H Potassium Level 4.7 MMOL/L (3.5-5.1) Chloride Level 105 MMOL/L (98-107) Carbon Dioxide Level 43 MMOL/L (21-32) *H Anion Gap -1 mmol/L (5-15) L Blood Urea Nitrogen 16 mg/dL (7-18) Creatinine 0.3 MG/DL (0.55-1.30) L Estimat Glomerular Filtration Rate > 60 mL/min (>60) Glucose Level 142 MG/DL (74-106) H Calcium Level 8.6 MG/DL (8.5-10.1) Total Bilirubin 0.7 MG/DL (0.2-1.0) Aspartate Amino Transf (AST/SGOT) 104 U/L (15-37) H Alanine Aminotransferase (ALT/SGPT) 80 U/L (12-78) H Alkaline Phosphatase 153 U/L (46-116) H Total Protein 5.9 G/DL (6.4-8.2) L Albumin 1.7 G/DL (3.4-5.0) L Globulin 4.2 g/dL Albumin/Globulin Ratio 0.4 (1.0-2.7) L Current Medications Medications (Trade) Dose Ordered Sig/Milagro Route PRN Reason Start Time Stop Time Status Last Admin Dose Admin Acetaminophen (Tylenol) 650 mg Q4H PRN RECTAL Mild Pain (Pain Scale 1-3) 07/24/20 18:15 08/23/20 18:14 07/25/20 11:49 Acetaminophen (Tylenol) 650 mg Q6H PRN NG Temp >100.5 07/26/20 08:30 08/25/20 08:29 08/17/20 22:33 Acetaminophen (Tylenol) 650 mg Q6H PRN NG Mild Pain (Pain Scale 1-3) 07/26/20 08:30 08/25/20 08:29 08/19/20 17:21 Chlorhexidine Gluconate (Marycarmen-Hex 2%) 1 applic DAILY@2000 TOPIC 07/20/20 20:00 10/18/20 19:59 08/19/20 19:52 Dextrose (Dextrose 50%) 25 ml Q30M PRN IV Hypoglycemia 07/23/20 13:15 10/21/20 13:14 Dextrose (Dextrose 50%) 50 ml Q30M PRN IV Hypoglycemia 07/23/20 13:15 10/21/20 13:14 08/15/20 20:26 Dextrose/Sodium Chloride 1,000 ml @ 100 mls/hr Q10H PRN IV WHILE PRONING ONLY 07/24/20 17:45 08/23/20 17:44 08/10/20 05:33 Docusate Sodium (Colace) 100 mg EVERY 12 HOURS NG 07/27/20 21:00 08/26/20 20:59 08/19/20 19:52 Famotidine (Pepcid I.v.) 20 mg Q12HR IVP 08/04/20 21:00 09/03/20 20:59 08/19/20 19:52 Insulin Aspart (NovoLOG) EVERY 6 HOURS SUBQ 07/28/20 00:00 10/21/20 15:59 08/20/20 06:06 Insulin Detemir (Levemir) 13 units EVERY 12 HOURS SUBQ 08/19/20 09:00 11/17/20 08:59 08/19/20 19:52 Midazolam HCl 100 mg/Sodium Chloride 200 ml @ 0 mls/hr Q24H IV 08/12/20 18:00 08/22/20 17:59 08/20/20 04:01 Morphine Sulfate (Morphine Sulfate) 2 mg Q4H PRN IVP For Pain 08/19/20 21:18 08/26/20 21:17 08/20/20 05:05 Ondansetron HCl (Zofran) 4 mg Q6H PRN IVP Nausea & Vomiting 08/15/20 15:45 09/14/20 15:44 08/15/20 15:54 Vitamin B Complex (Vitamin B Complex) 1 tab DAILY NG 07/24/20 09:00 10/09/20 08:59 08/19/20 08:27 Mian Wing MD Aug 20, 2020 08:00
--- NOTE | 2020-08-20 08:23 | NUR ---
CASE MANAGEMENT:REVIEW 08/20/20 SI: COVID PNA. PNEUMOTHORAX W/CONSUELO CHEST TUBES ACUTE RESPIRATORY FAILURE ~ INTUBATED 97.5 156 37 139/82 SAT~80% ON VENT SUPPORT FIO2~100% AC~26 TV~500 PEEP~16.0 WBC+17.0 CO2+43 IS: IV MORPHINE Q4HRS PRN LEVEMIR SQ Q12 VERSED GTT IV PEPCID Q12 IVF@100/HR : ICU STATUS
--- NOTE | 2020-08-20 08:30 | NUR ---
NURSE NOTES: Patient received and observed bedside. Patient is awake with eyes open however does not follow commands and does not track. Patient sedated with Versed 20 mg. Patient is on the cardiac rn and showing ST. Patient is orally intubated with 7.5 ETT, 25cm at the lip with vent settings AC 26 TV 500 FiO2 100% PEEP 16. Patient is febrile on the cooling blanket at 100.0. Patient has bloody secretions, bloody drainage from his lips. Patient has a DANIEL Versed 20mg/hr with only one port patent. BL chest tubes in place with crepitus that are noted and palpable on R upper chest and L upper chest with distention noted. NGT running Glucerna 1.2 @40ml/hr with no residual noted. Biswas catheter draining dark yen urine with little urine output draining to gravity. Safety measures are in place with bed locked in the lowest position, side rails up x 3. Meatal care performed. Oral care performed. Will continue to monitor and follow plan of care.
[2020-08-20] MEDS: Docusate 100mg/10ml Liq NG SCH ×2 (09:00→20:18)
[2020-08-20] MEDS: Vitamin B Complex Tab NG SCH (11:05)
[2020-08-20] MEDS: Levemir Flexpen SUBQ SCH ×2 (11:30→20:28)
--- NOTE | 2020-08-20 15:44 | Pulmonolgy Critical Care Note ---
Critical Care - Asmt/Plan Assessment/Plan: Pulmonary CCM Progress Noted Subjective ROS Limited/Unobtainable: Yes Allergies: Coded Allergies: No Known Allergies (Unverified , 03/08/17) Criticalcondition Bilateralchest tubes WorseningHypoxia DNAR status Seen earlier Medications noted Objective Vital Signs noted PE deferred due to COVID 19 Laboratory Tests noted CXR noted Assessment/Plan Assessment/Plan acute hypoxemic respiratory failure COVID pneumonia Asthma elevated liver enzymes DNR ARDS with fibrosing phase pneumothorax bilateral chest tubes elevated TG subq emphysema PLAN not improved; still on high o2 and peep/ sats >90 CT per surgery / monitor sq emphysema imaging PRN reviewed unable to trach at present monitor acid base status respiratory care ID noted DVT prophylaxis prognosis poor overall for meaningful recovery monitor respiratory status for change not safe for trach placement medications/laboratory data/nursing notes/ICU care reviewed in detail note reviewed and edited care discussed with RN and RT ICU time spent >40 minutes Critical Care - Objective Last 24 Hour Vital Signs Date Time Temp Pulse Resp B/P (MAP) Pulse Ox O2 Delivery O2 Flow Rate FiO2 08/20/20 14:00 127 32 132/79 (96) 08/20/20 13:00 130 27 126/81 (96) 93 08/20/20 12:00 97.5 134 30 119/71 (87) 08/20/20 11:05 30 Mechanical Ventilator 100 08/20/20 11:00 142 23 121/69 (86) 08/20/20 10:00 146 32 122/68 (86) 92 08/20/20 09:00 152 30 112/69 (83) 88 08/20/20 08:00 97.2 159 38 114/67 (83) 82 08/20/20 07:00 156 37 139/82 (101) 80 08/20/20 07:00 36 Mechanical Ventilator 100 08/20/20 06:00 37 Mechanical Ventilator 100 08/20/20 06:00 141 37 132/80 (97) 82 08/20/20 05:00 134 34 133/63 (86) 85 08/20/20 05:00 34 Mechanical Ventilator 100 08/20/20 04:01 30 Mechanical Ventilator 100 08/20/20 04:00 114 08/20/20 04:00 97.5 115 31 112/65 (81) 95 08/20/20 04:00 Mechanical Ventilator 08/20/20 04:00 100 08/20/20 03:37 99 31 100 08/20/20 03:00 109 32 107/70 (82) 100 08/20/20 02:00 106 31 128/79 (95) 96 08/20/20 02:00 31 Mechanical Ventilator 100 08/20/20 01:00 108 28 115/77 (90) 97 08/20/20 01:00 28 Mechanical Ventilator 100 08/20/20 00:00 97.1 109 29 118/77 (91) 96 08/20/20 00:00 109 08/20/20 00:00 27 Mechanical Ventilator 100 08/20/20 00:00 Mechanical Ventilator 08/20/20 00:00 100 08/19/20 23:33 112 32 100 08/19/20 23:00 113 32 126/78 (94) 97 08/19/20 23:00 26 Mechanical Ventilator 100 08/19/20 22:58 28 Mechanical Ventilator 100 08/19/20 22:00 113 29 120/73 (89) 96 08/19/20 22:00 27 Mechanical Ventilator 100 08/19/20 21:00 28 Mechanical Ventilator 100 08/19/20 21:00 117 27 114/76 (89) 97 08/19/20 20:00 Mechanical Ventilator 08/19/20 20:00 100 08/19/20 20:00 97.7 123 28 112/66 (81) 97 08/19/20 20:00 27 Mechanical Ventilator 100 08/19/20 20:00 125 08/19/20 19:14 84 30 100 08/19/20 19:00 27 Mechanical Ventilator 100 08/19/20 19:00 122 28 127/68 (87) 87 08/19/20 18:00 134 30 115/66 (82) 90 08/19/20 17:50 34 Mechanical Ventilator 100 08/19/20 17:49 32 Mechanical Ventilator 100 08/19/20 17:00 36 Mechanical Ventilator 100 08/19/20 17:00 136 37 143/46 (78) 90 08/19/20 16:00 100 08/19/20 16:00 Mechanical Ventilator 08/19/20 16:00 137 08/19/20 16:00 34 Mechanical Ventilator 100 08/19/20 16:00 138 39 136/80 (98) 90 Accucheck: 118 Critical Care - Subjective ROS Limited/Unobtainable: Yes FI02: 100 Vent Support Breath Rate: 26 Vent Support Mode: AC Vent Tidal Volume: 500 Sputum Amount: Scant PEEP: 16.0 PIP: 47 Tube Feeding Amount: 40 I&O: Intake and Output 08/19/20 08/20/20 19:00 07:00 Intake Total 900 ml 931.25255 ml Output Total 390 ml 550 ml Balance 510 ml 381.88968 ml Free Water 90 ml IV Total 420 ml 361.36505 ml Tube Feeding 480 ml 480 ml Output Urine Total 295 ml 350 ml Stool Total 50 ml Chest Tube Drainage Total 95 ml 150 ml # Bowel Movements 1 ET-Tube: 7.5 ET Position: 25 Chuck Ortega MD Aug 20, 2020 15:44
--- NOTE | 2020-08-20 17:15 | Surgery Progress Note ---
Surgery Progress Note Subjective Procedure Performed left chest tube insertion Additional Comments declining cxr stable ill appearing Objective Last 24 Hour Vital Signs Date Time Temp Pulse Resp B/P (MAP) Pulse Ox O2 Delivery O2 Flow Rate FiO2 08/20/20 15:30 124 28 100 08/20/20 14:00 127 32 132/79 (96) 08/20/20 13:00 130 27 126/81 (96) 93 08/20/20 12:00 97.5 134 30 119/71 (87) 08/20/20 11:30 136 28 100 08/20/20 11:05 30 Mechanical Ventilator 100 08/20/20 11:00 142 23 121/69 (86) 08/20/20 10:00 146 32 122/68 (86) 92 08/20/20 09:00 152 30 112/69 (83) 88 08/20/20 08:00 97.2 159 38 114/67 (83) 82 08/20/20 07:30 155 39 100 08/20/20 07:00 156 37 139/82 (101) 80 08/20/20 07:00 36 Mechanical Ventilator 100 08/20/20 06:00 37 Mechanical Ventilator 100 08/20/20 06:00 141 37 132/80 (97) 82 08/20/20 05:00 134 34 133/63 (86) 85 08/20/20 05:00 34 Mechanical Ventilator 100 08/20/20 04:01 30 Mechanical Ventilator 100 08/20/20 04:00 114 08/20/20 04:00 97.5 115 31 112/65 (81) 95 08/20/20 04:00 Mechanical Ventilator 08/20/20 04:00 100 08/20/20 03:37 99 31 100 08/20/20 03:00 109 32 107/70 (82) 100 08/20/20 02:00 106 31 128/79 (95) 96 08/20/20 02:00 31 Mechanical Ventilator 100 08/20/20 01:00 108 28 115/77 (90) 97 08/20/20 01:00 28 Mechanical Ventilator 100 08/20/20 00:00 97.1 109 29 118/77 (91) 96 08/20/20 00:00 109 08/20/20 00:00 27 Mechanical Ventilator 100 08/20/20 00:00 Mechanical Ventilator 08/20/20 00:00 100 08/19/20 23:33 112 32 100 08/19/20 23:00 113 32 126/78 (94) 97 08/19/20 23:00 26 Mechanical Ventilator 100 08/19/20 22:58 28 Mechanical Ventilator 100 08/19/20 22:00 113 29 120/73 (89) 96 08/19/20 22:00 27 Mechanical Ventilator 100 08/19/20 21:00 28 Mechanical Ventilator 100 08/19/20 21:00 117 27 114/76 (89) 97 08/19/20 20:00 Mechanical Ventilator 08/19/20 20:00 100 08/19/20 20:00 97.7 123 28 112/66 (81) 97 08/19/20 20:00 27 Mechanical Ventilator 100 08/19/20 20:00 125 08/19/20 19:14 84 30 100 08/19/20 19:00 27 Mechanical Ventilator 100 08/19/20 19:00 122 28 127/68 (87) 87 08/19/20 18:00 134 30 115/66 (82) 90 08/19/20 17:50 34 Mechanical Ventilator 100 08/19/20 17:49 32 Mechanical Ventilator 100 I&O Intake and Output 08/19/20 08/20/20 19:00 07:00 Intake Total 900 ml 931.26734 ml Output Total 390 ml 550 ml Balance 510 ml 381.67018 ml Free Water 90 ml IV Total 420 ml 361.31275 ml Tube Feeding 480 ml 480 ml Output Urine Total 295 ml 350 ml Stool Total 50 ml Chest Tube Drainage Total 95 ml 150 ml # Bowel Movements 1 Dressing: saturated Cardiovascular: RSR Respiratory: decreased breath sounds Abdomen: non-tender, present bowel sounds, non-distended Extremities: edema, no cyanosis Laboratory Tests Test 08/19/20 17:29 08/19/20 23:01 08/20/20 05:08 08/20/20 05:30 Arterial Blood pH 7.334 (7.350-7.450) Arterial Blood Partial Pressure CO2 94.7 mmHg (35.0-45.0) *H Arterial Blood Partial Pressure O2 35.6 mmHg (75.0-100.0) Arterial Blood HCO3 49.3 mmol/L (22.0-26.0) *H Arterial Blood Oxygen Saturation 67.8 % (95-100) *L Arterial Blood Base Excess 19.1 (-2-2) *H Jacob Test Positive POC Whole Blood Glucose Pending Pending White Blood Count 17.0 K/UL (4.8-10.8) H Red Blood Count 2.94 M/UL (4.70-6.10) L Hemoglobin 9.1 G/DL (14.2-18.0) L Hematocrit 30.8 % (42.0-52.0) L Mean Corpuscular Volume 105 FL (80-99) H Mean Corpuscular Hemoglobin 31.1 PG (27.0-31.0) H Mean Corpuscular Hemoglobin Concent 29.7 G/DL (32.0-36.0) L Red Cell Distribution Width 21.4 % (11.6-14.8) H Platelet Count 188 K/UL (150-450) Mean Platelet Volume 8.3 FL (6.5-10.1) Neutrophils (%) (Auto) % (45.0-75.0) Lymphocytes (%) (Auto) % (20.0-45.0) Monocytes (%) (Auto) % (1.0-10.0) Eosinophils (%) (Auto) % (0.0-3.0) Basophils (%) (Auto) % (0.0-2.0) Differential Total Cells Counted 100 Neutrophils % (Manual) 87 % (45-75) H Lymphocytes % (Manual) 9 % (20-45) L Monocytes % (Manual) 2 % (1-10) Eosinophils % (Manual) 0 % (0-3) Basophils % (Manual) 0 % (0-2) Band Neutrophils 2 % (0-8) Platelet Estimate Adequate Platelet Morphology Normal Polychromasia 2+ Hypochromasia 1+ Anisocytosis 3+ Macrocytosis 1+ Stomatocytes Occasional Sodium Level 147 MMOL/L (136-145) H Potassium Level 4.7 MMOL/L (3.5-5.1) Chloride Level 105 MMOL/L (98-107) Carbon Dioxide Level 43 MMOL/L (21-32) *H Anion Gap -1 mmol/L (5-15) L Blood Urea Nitrogen 16 mg/dL (7-18) Creatinine 0.3 MG/DL (0.55-1.30) L Estimat Glomerular Filtration Rate > 60 mL/min (>60) Glucose Level 142 MG/DL (74-106) H Calcium Level 8.6 MG/DL (8.5-10.1) Total Bilirubin 0.7 MG/DL (0.2-1.0) Aspartate Amino Transf (AST/SGOT) 104 U/L (15-37) H Alanine Aminotransferase (ALT/SGPT) 80 U/L (12-78) H Alkaline Phosphatase 153 U/L (46-116) H Total Protein 5.9 G/DL (6.4-8.2) L Albumin 1.7 G/DL (3.4-5.0) L Globulin 4.2 g/dL Albumin/Globulin Ratio 0.4 (1.0-2.7) L Test 08/20/20 08:56 Arterial Blood pH 7.360 (7.350-7.450) Arterial Blood Partial Pressure CO2 79.7 mmHg (35.0-45.0) *H Arterial Blood Partial Pressure O2 48.1 mmHg (75.0-100.0) Arterial Blood HCO3 44.0 mmol/L (22.0-26.0) *H Arterial Blood Oxygen Saturation 81.3 % (95-100) *L Arterial Blood Base Excess 15.7 (-2-2) *H Jacob Test Positive Plan Problems: (1) Pneumothorax Assessment & Plan: 30M covid on vent peep 16 fi02 100 right ptx s/p right chest tube ett complication replaced 07/01 chest tube vac replaced this AM as well given malfunction high risk low tv cxr noted ill appearing tube and lines checked will need to monitor closely unable to wean vent at this time cont current care plan right chest tube with air leak persistent left side okay without leak large subq emphysema likely from right leaking Right pneumothorax is slightly increased from the prior exam, still small. Right chest tube remains in place. Stable satisfactory position of endotracheal and orogastric tubes. Left arm PICC remain stable. Previously demonstrated pneumomediastinum is not definitely evident currently. There is marked improvement of previously demonstrated right supraclavicular subcutaneous emphysema, with mild residual. Bilateral infiltrates remain worsening prognosis guarded chest tube stable but leak with high peep bilateral chest tubes placed now bilateral ptx Chest vent catheter remains in place on the left. Previously demonstrated left pneumothorax has improved considerably, with some residual primarily at the left lung base. Right chest tube remains in place. Small right apical pneumothorax is unchanged. Bilateral subcutaneous emphysema is slightly worse. The endotracheal and orogastric tube positions are stable and satisfactory. Left arm PICC is again demonstrated. The heart size is normal. Bilateral infiltrates are unchanged Impression: Over 2 days, interim marked improvement of previously demonstrated left pneumothorax, now small Unchanged small right apical pneumothorax Unchanged bilateral infiltrates (2) Respiratory failure Assessment & Plan: prior multiple pna chronic lung issues (3) Coronavirus infection (4) Diabetes (5) Hypercapnia (6) Hypoxia (7) Asthma (8) HTN (hypertension) (9) Obesity (BMI 30-39.9) (10) Acute respiratory distress syndrome (ARDS) due to 2019-nCoV (11) Acute hypoxemic respiratory failure due to COVID-19 (12) Bradycardia (13) Laceration Mulugeta Butler Aug 20, 2020 17:15
[2020-08-20] MEDS: Dyna-Hex 2% Top Sol 2oz TOPIC SCH (19:47)
--- NOTE | 2020-08-20 19:50 | NUR ---
NURSE NOTES: PATIENT SEDATED, ON ETT TO VENT, AC26/TV500/FIO2 100%/PEEP 16, O2 SATURATION 95% NOTED, HR 120'S/MIN ST, CHEST TUBE TO RIGHT LATERAL UPPER SIDE AND PLEU VAC TO LEFT UPPER CHEST STATUS, INTACT AND SEROSANGUINEOUS DISCHARGE OUTED, NGT INTACT AND PATENT ONGOING VITAL AF AT 20ML/HR, NO RESIDUE NOTED, KEPT HOB 30 DEGREES AND ASPIRATION PRECAUTION, RECTAL TUBE INTACT AND PATENT, BROWN STOOL OUTED, F/C INTACT AND PATENT, DARK YURI COLOR URINE OUTED, PICC LINE TO LEFT UPPER ARM, INTACT AND PATENT, ONGOING VERSED 20MG/HR VIA PICC LINE, KEPT RASS SCORE -2, ON P200 BED, MADE LOWER BED POSITION , ON BED ALARM AND LOCKED, WILL CONTINUE TO MONITOR. Addendum: 08/21/20 at 0226 by MERY BARBA RN NURSE NOTES: PATIENT SEDATED, ON ETT TO VENT, AC26/TV500/FIO2 100%/PEEP 16, O2 SATURATION 95% NOTED, HR 120'S/MIN ST, CHEST TUBE TO RIGHT LATERAL UPPER SIDE AND PLEU VAC TO LEFT UPPER CHEST STATUS, INTACT AND SEROSANGUINEOUS DISCHARGE OUTED, NGT INTACT AND PATENT ONGOING GLUCERNA 1.2 AT 40ML/HR, NO RESIDUE NOTED, KEPT HOB 30 DEGREES AND ASPIRATION PRECAUTION, RECTAL TUBE INTACT AND PATENT, BROWN STOOL OUTED, F/C INTACT AND PATENT, DARK YURI COLOR URINE OUTED, PICC LINE TO LEFT UPPER ARM, INTACT AND PATENT, ONGOING VERSED 20MG/HR VIA PICC LINE, KEPT RASS SCORE -2, ON P200 BED, MADE LOWER BED POSITION , ON BED ALARM AND LOCKED, WILL CONTINUE TO MONITOR.
--- NOTE | 2020-08-20 20:00 | NUR ---
HAND-OFF: Report given to Tapan Awan RN. VSS and patient is not in any acute distress:
--- NOTE | 2020-08-20 22:05 | NUR ---
NURSE NOTES: LE: PATIENT ASLEEP STATUS, KEPT RASS SCORE -2, NO ACUTE DISTRESS NOTED AT THIS TIME.
[2020-08-21] VITALS (31 sets, daily range): BP systolic 88–141; BP diastolic 47–86
--- NOTE | 2020-08-21 01:02 | NUR ---
NURSE NOTES: ONGOING VERSED 20MG/MIN VIA LEFT UPPER ARM PICC LINE, NO PAIN NOTED, WILL CONTINUE PLAN OF CARE.
--- NOTE | 2020-08-21 01:56 | Cardiology Progress Note ---
Subjective DATE OF SERVICE: Aug 20, 2020 Condition remains critical and prognosis guarded He remains on full vent support, on high flow FIO2 - orally intubated. s/p left PTX - chest tube placed with improvement; still with subcutaneous emphysema. No new episodes of SVT Objective Last 24 Hour Vital Signs Date Time Temp Pulse Resp B/P (MAP) Pulse Ox O2 Delivery O2 Flow Rate FiO2 08/21/20 00:00 125 08/21/20 00:00 100 08/21/20 00:00 96.8 125 32 124/72 (89) 92 08/21/20 00:00 32 Mechanical Ventilator 100 08/21/20 00:00 Mechanical Ventilator 08/20/20 23:04 117 30 100 08/20/20 23:00 124 27 120/61 (80) 92 08/20/20 23:00 27 Mechanical Ventilator 100 08/20/20 22:00 119 26 116/72 (87) 92 08/20/20 21:58 28 Mechanical Ventilator 100 08/20/20 21:00 118 27 114/75 (88) 96 08/20/20 20:00 100 08/20/20 20:00 125 08/20/20 20:00 97.0 125 28 120/80 (93) 95 08/20/20 20:00 Mechanical Ventilator 08/20/20 19:15 128 32 100 08/20/20 19:00 130 34 121/74 (90) 96 08/20/20 18:00 133 31 125/71 (89) 93 08/20/20 17:00 134 31 126/76 (93) 92 08/20/20 16:00 127 08/20/20 16:00 127 33 121/70 (87) 92 08/20/20 16:00 100 08/20/20 16:00 33 Mechanical Ventilator 100 08/20/20 16:00 Mechanical Ventilator 08/20/20 15:30 124 28 100 08/20/20 15:00 30 Mechanical Ventilator 100 08/20/20 15:00 120 30 117/75 (89) 92 08/20/20 14:00 127 32 132/79 (96) 08/20/20 14:00 29 Mechanical Ventilator 100 08/20/20 13:00 130 27 126/81 (96) 93 08/20/20 13:00 28 Mechanical Ventilator 100 08/20/20 12:00 134 08/20/20 12:00 100 08/20/20 12:00 28 Mechanical Ventilator 100 08/20/20 12:00 Mechanical Ventilator 08/20/20 12:00 97.5 134 30 119/71 (87) 08/20/20 11:30 136 28 100 08/20/20 11:05 30 Mechanical Ventilator 100 08/20/20 11:00 28 Mechanical Ventilator 100 08/20/20 11:00 142 23 121/69 (86) 08/20/20 10:00 32 Mechanical Ventilator 100 08/20/20 10:00 146 32 122/68 (86) 92 08/20/20 09:00 34 Mechanical Ventilator 100 08/20/20 09:00 152 30 112/69 (83) 88 08/20/20 09:00 100 08/20/20 08:00 Mechanical Ventilator 08/20/20 08:00 37 Mechanical Ventilator 100 08/20/20 08:00 159 08/20/20 08:00 97.2 159 38 114/67 (83) 82 08/20/20 07:30 155 39 100 08/20/20 07:00 156 37 139/82 (101) 80 08/20/20 07:00 36 Mechanical Ventilator 100 08/20/20 06:00 37 Mechanical Ventilator 100 08/20/20 06:00 141 37 132/80 (97) 82 08/20/20 05:00 134 34 133/63 (86) 85 08/20/20 05:00 34 Mechanical Ventilator 100 08/20/20 04:01 30 Mechanical Ventilator 100 08/20/20 04:00 114 08/20/20 04:00 97.5 115 31 112/65 (81) 95 08/20/20 04:00 Mechanical Ventilator 08/20/20 04:00 100 08/20/20 03:37 99 31 100 08/20/20 03:00 109 32 107/70 (82) 100 08/20/20 02:00 106 31 128/79 (95) 96 08/20/20 02:00 31 Mechanical Ventilator 100 HEENT: Orally intubated, Mechanically Ventilated, Thin secretions ET Tube RHYTHM: SB LUNGS: bilateral rhonchi, other - right chest tube CARDIAC: regular rhythm, normal S1 and S2, bradycardia ABDOMEN: normal bowel sounds, non tender, soft EXTREMITIES: normal range of motion, non-tender Laboratory Tests Test 08/20/20 05:08 08/20/20 05:30 08/20/20 08:56 POC Whole Blood Glucose Pending White Blood Count 17.0 K/UL (4.8-10.8) H Red Blood Count 2.94 M/UL (4.70-6.10) L Hemoglobin 9.1 G/DL (14.2-18.0) L Hematocrit 30.8 % (42.0-52.0) L Mean Corpuscular Volume 105 FL (80-99) H Mean Corpuscular Hemoglobin 31.1 PG (27.0-31.0) H Mean Corpuscular Hemoglobin Concent 29.7 G/DL (32.0-36.0) L Red Cell Distribution Width 21.4 % (11.6-14.8) H Platelet Count 188 K/UL (150-450) Mean Platelet Volume 8.3 FL (6.5-10.1) Neutrophils (%) (Auto) % (45.0-75.0) Lymphocytes (%) (Auto) % (20.0-45.0) Monocytes (%) (Auto) % (1.0-10.0) Eosinophils (%) (Auto) % (0.0-3.0) Basophils (%) (Auto) % (0.0-2.0) Differential Total Cells Counted 100 Neutrophils % (Manual) 87 % (45-75) H Lymphocytes % (Manual) 9 % (20-45) L Monocytes % (Manual) 2 % (1-10) Eosinophils % (Manual) 0 % (0-3) Basophils % (Manual) 0 % (0-2) Band Neutrophils 2 % (0-8) Platelet Estimate Adequate Platelet Morphology Normal Polychromasia 2+ Hypochromasia 1+ Anisocytosis 3+ Macrocytosis 1+ Stomatocytes Occasional Sodium Level 147 MMOL/L (136-145) H Potassium Level 4.7 MMOL/L (3.5-5.1) Chloride Level 105 MMOL/L (98-107) Carbon Dioxide Level 43 MMOL/L (21-32) *H Anion Gap -1 mmol/L (5-15) L Blood Urea Nitrogen 16 mg/dL (7-18) Creatinine 0.3 MG/DL (0.55-1.30) L Estimat Glomerular Filtration Rate > 60 mL/min (>60) Glucose Level 142 MG/DL (74-106) H Calcium Level 8.6 MG/DL (8.5-10.1) Total Bilirubin 0.7 MG/DL (0.2-1.0) Aspartate Amino Transf (AST/SGOT) 104 U/L (15-37) H Alanine Aminotransferase (ALT/SGPT) 80 U/L (12-78) H Alkaline Phosphatase 153 U/L (46-116) H Total Protein 5.9 G/DL (6.4-8.2) L Albumin 1.7 G/DL (3.4-5.0) L Globulin 4.2 g/dL Albumin/Globulin Ratio 0.4 (1.0-2.7) L Arterial Blood pH 7.360 (7.350-7.450) Arterial Blood Partial Pressure CO2 79.7 mmHg (35.0-45.0) *H Arterial Blood Partial Pressure O2 48.1 mmHg (75.0-100.0) Arterial Blood HCO3 44.0 mmol/L (22.0-26.0) *H Arterial Blood Oxygen Saturation 81.3 % (95-100) *L Arterial Blood Base Excess 15.7 (-2-2) *H Jacob Test Positive Assessment/Plan Assessment/Plan Covid 19 PNA Bilateral PTX Secondary sinus tachycardia K.pneumonia PNA Acute respiratory failure with severe Hypoxia - slightly improved over past day. Diabetes mellitus with hyperglycemia due to steroids Transaminitis Mod protein/calorie malnutrition Dehydration/hypernatremia resolving Paroxysmal SVT Secondary sinu tachycardia CRITICAL & GUARDED Chest tube management/vent support Continuous cardiac monitoring Anticoagulation and steroid rx Titrate oxygen as able; prone. Vent settings adjusted by pulmonary; still cannot tolerate less than 100% FIO2. Anti-viral rx Protein suppl Free water replacement Insulin cov'g by SS; levemir dose advanced further. May consider diltiazem to help suppress supreventricular arrhythmias, if they recur. Chuck Swain MD Aug 21, 2020 01:56
[2020-08-21] MEDS: Midazolam HCl 50mg/10ml vial 100 MG in NS 180 ML IV SCH ×5 (02:59→23:22)
--- NOTE | 2020-08-21 04:17 | NUR ---
NURSE NOTES: MORNING CARE AND ORAL CARE WAS DONE.
[2020-08-21] MEDS: NovoLOG Insulin Flexpen SUBQ SCH ×4 (05:30→23:35)
--- NOTE | 2020-08-21 07:07 | NUR ---
NURSE HAND-OFF REPORT: Latest Vital Signs: Temperature 99.2 , Pulse 127 , B/P 123 /83 , Respiratory Rate 25 , O2 SAT 85 , Mechanical Ventilator, O2 Flow Rate . Vital Sign Comment: EKG Rhythm: Sinus Tachycardia Rhythm change?: N MD Notified?: Ildefonso Diana at bedside for re-intubation MD Response: Latest Bradley Fall Score: 50 Fall Risk: High Risk Safety Measures: Call light Within Reach, Bed Alarm Zone 1, Side Rails Side Rails x3, Bed position Low and Locked. Fall Precautions: Yellow Socks Yellow Gown Door Sign Patient Fall Education Report given to ELIER MORALES.
--- NOTE | 2020-08-21 07:30 | NUR ---
NURSE NOTES: Report received from ELIER Phelan. Patient sedated, RASS -2. Orally intubated ETT 7.5, 25cm @ the lip line. to vent, ac26, tv 500, fio2 100%, peep 16; o2 saturation 85% on bus monitor. Chest tube to right lateral upper side and Thora vent to left upper chest, intact and serosanguineous discharge noted in pleura vac collection system. NGT intact and patent, running Glucerna 1.2 at 40ml/hr. HOB elevated 30 degrees. Rectal tube intact and patent, brown loose stool noted. Biswas Catheter intact and patent, dark yen color urine noted in urometer. PICC line to left upper arm, intact and patent, running Versed @ 20mg/hr to maintain a RASS score of -2. P200 mattress, Bed low and locked with bed alarm on, will continue to monitor.
--- NOTE | 2020-08-21 07:58 | General Progress Note ---
Subjective ROS Limited/Unobtainable: No Constitutional: Reports: malaise, weakness HEENT: Reports: no symptoms Cardiovascular: Reports: no symptoms Respiratory: Reports: no symptoms Gastrointestinal/Abdominal: Reports: no symptoms Genitourinary: Reports: no symptoms Neurologic/Psychiatric: Reports: no symptoms Endocrine: Reports: no symptoms Hematologic/Lymphatic: Reports: no symptoms Allergies: Coded Allergies: No Known Allergies (Unverified , 03/08/17) All Systems: reviewed and negative except above Subjective doing poorly. worsening hypoxemia and sob this am. tachycardic. decrease o2 sats. on peep 16 fio2 100% Objective Last 24 Hour Vital Signs Date Time Temp Pulse Resp B/P (MAP) Pulse Ox O2 Delivery O2 Flow Rate FiO2 08/21/20 07:50 29 Mechanical Ventilator 100 08/21/20 07:00 117 28 126/78 (94) 88 08/21/20 07:00 28 Mechanical Ventilator 100 08/21/20 06:00 127 25 123/83 (96) 85 08/21/20 06:00 25 Mechanical Ventilator 100 08/21/20 05:00 134 21 135/86 (102) 82 08/21/20 05:00 21 Mechanical Ventilator 100 08/21/20 04:00 100 08/21/20 04:00 144 08/21/20 04:00 99.2 144 25 132/83 (99) 85 08/21/20 04:00 25 Mechanical Ventilator 100 08/21/20 04:00 Mechanical Ventilator 08/21/20 03:53 144 29 100 08/21/20 03:00 140 31 118/73 (88) 91 08/21/20 02:59 30 Mechanical Ventilator 100 08/21/20 02:00 133 28 131/70 (90) 92 08/21/20 02:00 28 Mechanical Ventilator 100 08/21/20 01:00 27 Mechanical Ventilator 100 08/21/20 01:00 133 27 122/73 (89) 92 08/21/20 00:00 125 08/21/20 00:00 100 08/21/20 00:00 96.8 125 32 124/72 (89) 92 08/21/20 00:00 32 Mechanical Ventilator 100 08/21/20 00:00 Mechanical Ventilator 08/20/20 23:04 117 30 100 08/20/20 23:00 124 27 120/61 (80) 92 08/20/20 23:00 27 Mechanical Ventilator 100 08/20/20 22:00 119 26 116/72 (87) 92 08/20/20 21:58 28 Mechanical Ventilator 100 08/20/20 21:00 118 27 114/75 (88) 96 08/20/20 20:00 100 08/20/20 20:00 125 08/20/20 20:00 97.0 125 28 120/80 (93) 95 08/20/20 20:00 Mechanical Ventilator 08/20/20 19:15 128 32 100 08/20/20 19:00 130 34 121/74 (90) 96 08/20/20 18:00 133 31 125/71 (89) 93 08/20/20 17:00 134 31 126/76 (93) 92 08/20/20 16:00 127 08/20/20 16:00 127 33 121/70 (87) 92 08/20/20 16:00 100 08/20/20 16:00 33 Mechanical Ventilator 100 08/20/20 16:00 Mechanical Ventilator 08/20/20 15:30 124 28 100 08/20/20 15:00 30 Mechanical Ventilator 100 08/20/20 15:00 120 30 117/75 (89) 92 08/20/20 14:00 127 32 132/79 (96) 08/20/20 14:00 29 Mechanical Ventilator 100 08/20/20 13:00 130 27 126/81 (96) 93 08/20/20 13:00 28 Mechanical Ventilator 100 08/20/20 12:00 134 08/20/20 12:00 100 08/20/20 12:00 28 Mechanical Ventilator 100 08/20/20 12:00 Mechanical Ventilator 08/20/20 12:00 97.5 134 30 119/71 (87) 08/20/20 11:30 136 28 100 08/20/20 11:05 30 Mechanical Ventilator 100 08/20/20 11:00 28 Mechanical Ventilator 100 08/20/20 11:00 142 23 121/69 (86) 08/20/20 10:00 32 Mechanical Ventilator 100 08/20/20 10:00 146 32 122/68 (86) 92 08/20/20 09:00 34 Mechanical Ventilator 100 08/20/20 09:00 152 30 112/69 (83) 88 08/20/20 09:00 100 08/20/20 08:00 Mechanical Ventilator 08/20/20 08:00 37 Mechanical Ventilator 100 08/20/20 08:00 159 08/20/20 08:00 97.2 159 38 114/67 (83) 82 Intake and Output 08/20/20 08/21/20 19:00 07:00 Intake Total 840 ml 890 ml Output Total 260 ml 380 ml Balance 580 ml 510 ml IV Total 360 ml 360 ml Tube Feeding 480 ml 480 ml Other 50 ml Output Urine Total 260 ml 340 ml Chest Tube Drainage Total 0 ml 40 ml # Bowel Movements 3 30 Laboratory Tests 08/20/20 08:56: Arterial Blood pH 7.360, Arterial Blood Partial Pressure CO2 79.7*H, Arterial Blood Partial Pressure O2 48.1*L, Arterial Blood HCO3 44.0*H, Arterial Blood Oxygen Saturation 81.3*L, Arterial Blood Base Excess 15.7*H, Jacob Test Positive 08/21/20 05:15: POC Whole Blood Glucose [Pending] Height (Feet): 5 Height (Inches): 6.00 Weight (Pounds): 209 Assessment/Plan Problem List: (1) Coronavirus infection ICD Codes: B34.2 - Coronavirus infection, unspecified SNOMED: 884109877 (2) Respiratory failure ICD Codes: J96.90 - Respiratory failure, unspecified, unspecified whether with hypoxia or hypercapnia SNOMED: 897589429 (3) Hypercapnia ICD Codes: R06.89 - Other abnormalities of breathing SNOMED: 93231361, 022422369 (4) Hypoxia ICD Codes: R09.02 - Hypoxemia SNOMED: 401368759 (5) Asthma ICD Codes: J45.909 - Unspecified asthma, uncomplicated SNOMED: 462637636, 863080739 (6) Pneumothorax ICD Codes: J93.9 - Pneumothorax, unspecified SNOMED: 91054957 Status: progressing, not improved Assessment/Plan: stat cxr ordered stat abg cont resp rx and vent support dvt/stress ulcer prophylaxis very poor prognosis dnr Rolando Cherry MD Aug 21, 2020 07:58
--- NOTE | 2020-08-21 08:00 | NUR ---
NURSE NOTES: Dr Cherry at bedside assessing pt. Updated him on pt's current condition. No new orders given
[2020-08-21] MEDS: Docusate 100mg/10ml Liq NG SCH ×2 (08:28→20:24)
[2020-08-21] MEDS: Vitamin B Complex Tab NG SCH (08:28)
[2020-08-21] MEDS: Levemir Flexpen SUBQ SCH ×2 (08:28→20:39)
[2020-08-21 09:03] LABS: HEMATOCRIT 30.9 % (42.0-52.0); MEAN CORPUSCULAR VOLUME 105 FL (80-99); PLATELET COUNT 164 K/UL (150-450); RED BLOOD COUNT 2.96 M/UL (4.70-6.10); RED CELL DISTRIBUTION WIDTH 21.7 % (11.6-14.8); WHITE BLOOD COUNT 15.7 K/UL (4.8-10.8)
[2020-08-21 09:30] LABS: ANION GAP 0 mmol/L (5-15); BLOOD UREA NITROGEN 13 mg/dL (7-18); CALCIUM 8.7 MG/DL (8.5-10.1); CHLORIDE 105 MMOL/L (98-107); CREATININE 0.2 MG/DL (0.55-1.30); POTASSIUM 3.9 MMOL/L (3.5-5.1); SODIUM 149 MMOL/L (136-145)
[2020-08-21 09:36] LABS: CARBON DIOXIDE 43 MMOL/L (21-32)
--- NOTE | 2020-08-21 10:00 | NUR ---
NURSE NOTES: Pt turned and repositioned for comfort. Oral care done. Moisturizer applied on dried blood scabs on pt's lips.
--- NOTE | 2020-08-21 10:50 | Diagnostic Imaging Report ---
EXAM: XR Chest, 1 View CLINICAL HISTORY: F/U TECHNIQUE: Frontal view of the chest. COMPARISON: Chest radiograph August 19, 2020. FINDINGS/IMPRESSION: Interval development of a mild-moderate right-sided pneumothorax. There is a chest tube. Stable endotracheal tube and enteric feeding tube. Stable left-sided chest tube catheter. Yesterday's pneumomediastinum/pneumopericardium is less apparent on the current study. Extensive subcutaneous emphysema within the neck and chest wall on the right. <MYCVCSECTION> Communications: 08/21/20 11:20 Call Doctor Regarding Other, called Dr Marquis on 08/21 11: 23 (-08:00)
--- NOTE | 2020-08-21 11:14 | Surgery Progress Note ---
Surgery Progress Note Subjective Procedure Performed left chest tube insertion Additional Comments ill appearing on support no n/v labs noted ct stable Objective Last 24 Hour Vital Signs Date Time Temp Pulse Resp B/P (MAP) Pulse Ox O2 Delivery O2 Flow Rate FiO2 08/21/20 11:00 129 20 141/81 (101) 80 08/21/20 10:30 125 22 133/80 (97) 83 08/21/20 10:00 29 Mechanical Ventilator 100 08/21/20 10:00 123 26 134/80 (98) 87 08/21/20 09:30 120 24 136/80 (98) 85 08/21/20 09:00 116 26 133/79 (97) 83 08/21/20 09:00 29 Mechanical Ventilator 100 08/21/20 08:00 100 08/21/20 08:00 97.0 113 24 132/83 (99) 88 08/21/20 08:00 29 Mechanical Ventilator 100 08/21/20 08:00 Mechanical Ventilator 08/21/20 07:50 29 Mechanical Ventilator 100 08/21/20 07:00 117 28 126/78 (94) 88 08/21/20 07:00 28 Mechanical Ventilator 100 08/21/20 06:00 127 25 123/83 (96) 85 08/21/20 06:00 25 Mechanical Ventilator 100 08/21/20 05:00 134 21 135/86 (102) 82 08/21/20 05:00 21 Mechanical Ventilator 100 08/21/20 04:00 100 08/21/20 04:00 144 08/21/20 04:00 99.2 144 25 132/83 (99) 85 08/21/20 04:00 25 Mechanical Ventilator 100 08/21/20 04:00 Mechanical Ventilator 08/21/20 03:53 144 29 100 08/21/20 03:00 140 31 118/73 (88) 91 08/21/20 02:59 30 Mechanical Ventilator 100 08/21/20 02:00 133 28 131/70 (90) 92 08/21/20 02:00 28 Mechanical Ventilator 100 08/21/20 01:00 27 Mechanical Ventilator 100 08/21/20 01:00 133 27 122/73 (89) 92 08/21/20 00:00 125 08/21/20 00:00 100 08/21/20 00:00 96.8 125 32 124/72 (89) 92 08/21/20 00:00 32 Mechanical Ventilator 100 08/21/20 00:00 Mechanical Ventilator 08/20/20 23:04 117 30 100 08/20/20 23:00 124 27 120/61 (80) 92 08/20/20 23:00 27 Mechanical Ventilator 100 08/20/20 22:00 119 26 116/72 (87) 92 08/20/20 21:58 28 Mechanical Ventilator 100 08/20/20 21:00 118 27 114/75 (88) 96 08/20/20 20:00 100 08/20/20 20:00 125 08/20/20 20:00 97.0 125 28 120/80 (93) 95 08/20/20 20:00 Mechanical Ventilator 08/20/20 19:15 128 32 100 08/20/20 19:00 130 34 121/74 (90) 96 08/20/20 18:00 133 31 125/71 (89) 93 08/20/20 17:00 134 31 126/76 (93) 92 08/20/20 16:00 127 08/20/20 16:00 127 33 121/70 (87) 92 08/20/20 16:00 100 08/20/20 16:00 33 Mechanical Ventilator 100 08/20/20 16:00 Mechanical Ventilator 08/20/20 15:30 124 28 100 08/20/20 15:00 30 Mechanical Ventilator 100 08/20/20 15:00 120 30 117/75 (89) 92 08/20/20 14:00 127 32 132/79 (96) 08/20/20 14:00 29 Mechanical Ventilator 100 08/20/20 13:00 130 27 126/81 (96) 93 08/20/20 13:00 28 Mechanical Ventilator 100 08/20/20 12:00 134 08/20/20 12:00 100 08/20/20 12:00 28 Mechanical Ventilator 100 08/20/20 12:00 Mechanical Ventilator 08/20/20 12:00 97.5 134 30 119/71 (87) 08/20/20 11:30 136 28 100 I&O Intake and Output 08/20/20 08/21/20 19:00 07:00 Intake Total 840 ml 890 ml Output Total 260 ml 380 ml Balance 580 ml 510 ml IV Total 360 ml 360 ml Tube Feeding 480 ml 480 ml Other 50 ml Output Urine Total 260 ml 340 ml Chest Tube Drainage Total 0 ml 40 ml # Bowel Movements 3 30 Dressing: other Wound: other Cardiovascular: RSR Respiratory: decreased breath sounds Abdomen: soft, non-tender, present bowel sounds, non-distended Extremities: edema, no tenderness, no cyanosis Laboratory Tests Test 08/21/20 05:15 08/21/20 08:11 POC Whole Blood Glucose Pending White Blood Count 15.7 K/UL (4.8-10.8) H Red Blood Count 2.96 M/UL (4.70-6.10) L Hemoglobin 9.0 G/DL (14.2-18.0) L Hematocrit 30.9 % (42.0-52.0) L Mean Corpuscular Volume 105 FL (80-99) H Mean Corpuscular Hemoglobin 30.5 PG (27.0-31.0) Mean Corpuscular Hemoglobin Concent 29.2 G/DL (32.0-36.0) L Red Cell Distribution Width 21.7 % (11.6-14.8) H Platelet Count 164 K/UL (150-450) Mean Platelet Volume 8.5 FL (6.5-10.1) Neutrophils (%) (Auto) % (45.0-75.0) Lymphocytes (%) (Auto) % (20.0-45.0) Monocytes (%) (Auto) % (1.0-10.0) Eosinophils (%) (Auto) % (0.0-3.0) Basophils (%) (Auto) % (0.0-2.0) Differential Total Cells Counted 100 Neutrophils % (Manual) 88 % (45-75) H Lymphocytes % (Manual) 4 % (20-45) L Monocytes % (Manual) 4 % (1-10) Eosinophils % (Manual) 0 % (0-3) Basophils % (Manual) 0 % (0-2) Band Neutrophils 4 % (0-8) Nucleated Red Blood Cells 4 /100 WBC Platelet Estimate Adequate Platelet Morphology Normal Polychromasia 2+ Hypochromasia 1+ Anisocytosis 3+ Macrocytosis 1+ Sodium Level 149 MMOL/L (136-145) H Potassium Level 3.9 MMOL/L (3.5-5.1) Chloride Level 105 MMOL/L (98-107) Carbon Dioxide Level 43 MMOL/L (21-32) *H Anion Gap 0 mmol/L (5-15) L Blood Urea Nitrogen 13 mg/dL (7-18) Creatinine 0.2 MG/DL (0.55-1.30) L Estimat Glomerular Filtration Rate > 60 mL/min (>60) Glucose Level 113 MG/DL (74-106) H Calcium Level 8.7 MG/DL (8.5-10.1) Plan Problems: (1) Pneumothorax Assessment & Plan: 30M covid on vent peep 16 fi02 100 right ptx s/p right chest tube ett complication replaced 07/01 chest tube vac replaced this AM as well given malfunction high risk low tv cxr noted ill appearing tube and lines checked will need to monitor closely unable to wean vent at this time cont current care plan right chest tube with air leak persistent left side okay without leak large subq emphysema likely from right leaking Right pneumothorax is slightly increased from the prior exam, still small. Right chest tube remains in place. Stable satisfactory position of endotracheal and orogastric tubes. Left arm PICC remain stable. Previously demonstrated pneumomediastinum is not definitely evident currently. There is marked improvement of previously demonstrated right supraclavicular subcutaneous emphysema, with mild residual. Bilateral infiltrates remain worsening prognosis guarded chest tube stable but leak with high peep bilateral chest tubes placed now bilateral ptx Chest vent catheter remains in place on the left. Previously demonstrated left pneumothorax has improved considerably, with some residual primarily at the left lung base. Right chest tube remains in place. Small right apical pneumothorax is unchanged. Bilateral subcutaneous emphysema is slightly worse. The endotracheal and orogastric tube positions are stable and satisfactory. Left arm PICC is again demonstrated. The heart size is normal. Bilateral infiltrates are unchanged Impression: Over 2 days, interim marked improvement of previously demonstrated left pneumothorax, now small Unchanged small right apical pneumothorax Unchanged bilateral infiltrates (2) Respiratory failure Assessment & Plan: prior multiple pna chronic lung issues (3) Coronavirus infection (4) Diabetes (5) Hypercapnia (6) Hypoxia (7) Asthma (8) HTN (hypertension) (9) Obesity (BMI 30-39.9) (10) Acute respiratory distress syndrome (ARDS) due to 2019-nCoV (11) Acute hypoxemic respiratory failure due to COVID-19 (12) Bradycardia (13) Laceration Mulugeta Butler Aug 21, 2020 11:14
--- NOTE | 2020-08-21 12:00 | NUR ---
NURSE NOTES: Pt remains on 100% fiO2. O2sat reads in the 60's. Pt appears to be using accessory muscles to breathe.
--- NOTE | 2020-08-21 12:45 | NUR ---
NURSE NOTES: Blood Sugar= 150mg/dL. 4 units Novolog insulin given, per sliding scale.
--- NOTE | 2020-08-21 14:45 | NUR ---
NURSE NOTES: Pt turned and repositioned. Pt remains on Versed @ 20mg/hr to maintain RASS score of -2. O2sat remains low in the 60's.
--- NOTE | 2020-08-21 16:20 | Cardiology Progress Note ---
Subjective DATE OF SERVICE: Aug 21, 2020 Condition remains critical and prognosis guarded He remains on full vent support, on high flow FIO2 - orally intubated; he is still desaturating. s/p left PTX - chest tube placed with improvement; still with subcutaneous emphysema. No new episodes of SVT Objective Last 24 Hour Vital Signs Date Time Temp Pulse Resp B/P (MAP) Pulse Ox O2 Delivery O2 Flow Rate FiO2 08/21/20 16:00 100 08/21/20 16:00 Mechanical Ventilator 08/21/20 15:00 29 Mechanical Ventilator 100 08/21/20 15:00 149 15 117/73 (88) 63 08/21/20 14:00 149 14 117/72 (87) 68 08/21/20 14:00 29 Mechanical Ventilator 100 08/21/20 13:30 145 21 126/74 (91) 69 08/21/20 13:00 140 34 136/72 (93) 62 08/21/20 13:00 30 Mechanical Ventilator 100 08/21/20 12:30 29 Mechanical Ventilator 100 08/21/20 12:00 100 08/21/20 12:00 149 08/21/20 12:00 30 Mechanical Ventilator 100 08/21/20 12:00 98.3 137 26 135/78 (97) 71 08/21/20 12:00 Mechanical Ventilator 08/21/20 11:30 133 18 131/79 (96) 74 08/21/20 11:00 129 20 141/81 (101) 80 08/21/20 11:00 29 Mechanical Ventilator 100 08/21/20 10:30 125 22 133/80 (97) 83 08/21/20 10:00 29 Mechanical Ventilator 100 08/21/20 10:00 149 08/21/20 10:00 123 26 134/80 (98) 87 08/21/20 09:30 120 24 136/80 (98) 85 08/21/20 09:00 116 26 133/79 (97) 83 08/21/20 09:00 29 Mechanical Ventilator 100 08/21/20 08:00 100 08/21/20 08:00 97.0 113 24 132/83 (99) 88 08/21/20 08:00 29 Mechanical Ventilator 100 08/21/20 08:00 113 08/21/20 08:00 Mechanical Ventilator 08/21/20 07:50 29 Mechanical Ventilator 100 08/21/20 07:00 117 28 126/78 (94) 88 08/21/20 07:00 28 Mechanical Ventilator 100 08/21/20 06:00 127 25 123/83 (96) 85 08/21/20 06:00 25 Mechanical Ventilator 100 08/21/20 05:00 134 21 135/86 (102) 82 08/21/20 05:00 21 Mechanical Ventilator 100 08/21/20 04:00 100 08/21/20 04:00 144 08/21/20 04:00 99.2 144 25 132/83 (99) 85 08/21/20 04:00 25 Mechanical Ventilator 100 08/21/20 04:00 Mechanical Ventilator 08/21/20 03:53 144 29 100 08/21/20 03:00 140 31 118/73 (88) 91 08/21/20 02:59 30 Mechanical Ventilator 100 08/21/20 02:00 133 28 131/70 (90) 92 08/21/20 02:00 28 Mechanical Ventilator 100 08/21/20 01:00 27 Mechanical Ventilator 100 08/21/20 01:00 133 27 122/73 (89) 92 08/21/20 00:00 125 08/21/20 00:00 100 08/21/20 00:00 96.8 125 32 124/72 (89) 92 08/21/20 00:00 32 Mechanical Ventilator 100 08/21/20 00:00 Mechanical Ventilator 08/20/20 23:04 117 30 100 08/20/20 23:00 124 27 120/61 (80) 92 08/20/20 23:00 27 Mechanical Ventilator 100 08/20/20 22:00 119 26 116/72 (87) 92 08/20/20 21:58 28 Mechanical Ventilator 100 08/20/20 21:00 118 27 114/75 (88) 96 08/20/20 20:00 100 08/20/20 20:00 125 08/20/20 20:00 97.0 125 28 120/80 (93) 95 08/20/20 20:00 Mechanical Ventilator 08/20/20 19:15 128 32 100 08/20/20 19:00 130 34 121/74 (90) 96 08/20/20 18:00 133 31 125/71 (89) 93 08/20/20 17:00 134 31 126/76 (93) 92 HEENT: Orally intubated, Mechanically Ventilated, Thin secretions ET Tube RHYTHM: SB LUNGS: bilateral rhonchi, other - right chest tube CARDIAC: regular rhythm, normal S1 and S2, bradycardia ABDOMEN: normal bowel sounds, non tender, soft EXTREMITIES: normal range of motion, non-tender Laboratory Tests Test 08/21/20 05:15 08/21/20 08:11 POC Whole Blood Glucose Pending White Blood Count 15.7 K/UL (4.8-10.8) H Red Blood Count 2.96 M/UL (4.70-6.10) L Hemoglobin 9.0 G/DL (14.2-18.0) L Hematocrit 30.9 % (42.0-52.0) L Mean Corpuscular Volume 105 FL (80-99) H Mean Corpuscular Hemoglobin 30.5 PG (27.0-31.0) Mean Corpuscular Hemoglobin Concent 29.2 G/DL (32.0-36.0) L Red Cell Distribution Width 21.7 % (11.6-14.8) H Platelet Count 164 K/UL (150-450) Mean Platelet Volume 8.5 FL (6.5-10.1) Neutrophils (%) (Auto) % (45.0-75.0) Lymphocytes (%) (Auto) % (20.0-45.0) Monocytes (%) (Auto) % (1.0-10.0) Eosinophils (%) (Auto) % (0.0-3.0) Basophils (%) (Auto) % (0.0-2.0) Differential Total Cells Counted 100 Neutrophils % (Manual) 88 % (45-75) H Lymphocytes % (Manual) 4 % (20-45) L Monocytes % (Manual) 4 % (1-10) Eosinophils % (Manual) 0 % (0-3) Basophils % (Manual) 0 % (0-2) Band Neutrophils 4 % (0-8) Nucleated Red Blood Cells 4 /100 WBC Platelet Estimate Adequate Platelet Morphology Normal Polychromasia 2+ Hypochromasia 1+ Anisocytosis 3+ Macrocytosis 1+ Sodium Level 149 MMOL/L (136-145) H Potassium Level 3.9 MMOL/L (3.5-5.1) Chloride Level 105 MMOL/L (98-107) Carbon Dioxide Level 43 MMOL/L (21-32) *H Anion Gap 0 mmol/L (5-15) L Blood Urea Nitrogen 13 mg/dL (7-18) Creatinine 0.2 MG/DL (0.55-1.30) L Estimat Glomerular Filtration Rate > 60 mL/min (>60) Glucose Level 113 MG/DL (74-106) H Calcium Level 8.7 MG/DL (8.5-10.1) Assessment/Plan Assessment/Plan Covid 19 PNA Bilateral PTX Secondary sinus tachycardia K.pneumonia PNA Acute respiratory failure with severe Hypoxia - slightly improved over past day. Diabetes mellitus with hyperglycemia due to steroids Transaminitis Mod protein/calorie malnutrition Dehydration/hypernatremia resolving Paroxysmal SVT Secondary sinu tachycardia CRITICAL & GUARDED Chest tube management/vent support Continuous cardiac monitoring Anticoagulation and steroid rx Titrate oxygen as able; prone. Vent settings adjusted by pulmonary; still cannot tolerate less than 100% FIO2. Anti-viral rx Protein suppl Free water replacement Insulin cov'g by SS; levemir dose advanced further. May consider diltiazem to help suppress supreventricular arrhythmias, if they recur. Chuck Swain MD Aug 21, 2020 16:20
--- NOTE | 2020-08-21 16:40 | NUR ---
NURSE NOTES: Pt remains unstable, O2sat in the 50's. B/P 88/54. Awaiting STAT ABG results.
--- NOTE | 2020-08-21 17:14 | NUR ---
NURSE NOTES: Pt's family informed pt is not doing so well. O2sat remains in the 50's; on 100% FiO2.
[2020-08-21] MEDS ORDERED: Norepinephrine 4mg/NS Premix 250 ML IV PRN (18:30)
--- NOTE | 2020-08-21 19:12 | NUR ---
NURSE HAND-OFF REPORT: Latest Vital Signs: Temperature 99.1 , Pulse 146 , B/P 91 /57 , Respiratory Rate 30 , O2 SAT 81 , Mechanical Ventilator, FiO2 100% . Vital Sign Comment: EKG Rhythm: Sinus Tachycardia Rhythm change?: N MD Notified?: MD Response: Latest Bradley Fall Score: 50 Fall Risk: High Risk Safety Measures: Call light Within Reach, Bed Alarm Zone 1, Side Rails Side Rails x3, Bed position Low and Locked. Fall Precautions: Yellow Socks Yellow Gown Door Sign Patient Fall Education Report given to ELIER Phelan.
--- NOTE | 2020-08-21 19:32 | Pulmonolgy Critical Care Note ---
Critical Care - Asmt/Plan Assessment/Plan: Pulmonary CCM Progress Noted Subjective ROS Limited/Unobtainable: Yes Allergies: Coded Allergies: No Known Allergies (Unverified , 03/08/17) Critical condition Bilateral chest tubes High PEEP/FIO2 Worsening Hypoxia DNAR status Seen earlier Medications noted Objective Vital Signs noted PE deferred due to COVID 19 Laboratory Tests noted CXR noted Assessment/Plan Assessment/Plan acute hypoxemic respiratory failure COVID pneumonia Asthma elevated liver enzymes DNR ARDS with fibrosing phase pneumothorax bilateral chest tubes elevated TG subq emphysema PLAN not improved; still on high o2 and peep/ sats >90 CT per surgery / monitor sq emphysema imaging PRN reviewed unable to trach at present monitor acid base status respiratory care ID noted DVT prophylaxis prognosis poor overall for meaningful recovery monitor respiratory status for change not safe for trach placement medications/laboratory data/nursing notes/ICU care reviewed in detail note reviewed and edited care discussed with RN and RT ICU time spent >40 minutes Critical Care - Objective Last 24 Hour Vital Signs Date Time Temp Pulse Resp B/P (MAP) Pulse Ox O2 Delivery O2 Flow Rate FiO2 08/21/20 19:11 148 27 100 08/21/20 19:00 29 Mechanical Ventilator 100 08/21/20 19:00 146 30 91/57 (68) 81 08/21/20 18:11 30 Mechanical Ventilator 100 08/21/20 18:00 155 24 92/47 (62) 64 08/21/20 18:00 30 Mechanical Ventilator 100 08/21/20 17:00 149 19 88/55 (66) 50 08/21/20 17:00 29 Mechanical Ventilator 100 08/21/20 16:00 100 08/21/20 16:00 151 08/21/20 16:00 99.1 151 18 109/63 (78) 58 08/21/20 16:00 29 Mechanical Ventilator 100 08/21/20 16:00 Mechanical Ventilator 08/21/20 15:00 29 Mechanical Ventilator 100 08/21/20 15:00 149 15 117/73 (88) 63 08/21/20 14:00 149 14 117/72 (87) 68 08/21/20 14:00 29 Mechanical Ventilator 100 08/21/20 13:30 145 21 126/74 (91) 69 08/21/20 13:20 149 26 100 08/21/20 13:00 140 34 136/72 (93) 62 08/21/20 13:00 30 Mechanical Ventilator 100 08/21/20 12:30 29 Mechanical Ventilator 100 08/21/20 12:00 100 08/21/20 12:00 149 08/21/20 12:00 30 Mechanical Ventilator 100 08/21/20 12:00 98.3 137 26 135/78 (97) 71 08/21/20 12:00 Mechanical Ventilator 08/21/20 11:30 133 18 131/79 (96) 74 08/21/20 11:00 129 20 141/81 (101) 80 08/21/20 11:00 29 Mechanical Ventilator 100 08/21/20 10:30 125 22 133/80 (97) 83 08/21/20 10:00 29 Mechanical Ventilator 100 08/21/20 10:00 149 08/21/20 10:00 123 26 134/80 (98) 87 08/21/20 09:30 120 24 136/80 (98) 85 08/21/20 09:00 116 26 133/79 (97) 83 08/21/20 09:00 29 Mechanical Ventilator 100 08/21/20 08:00 100 08/21/20 08:00 97.0 113 24 132/83 (99) 88 08/21/20 08:00 29 Mechanical Ventilator 100 08/21/20 08:00 113 08/21/20 08:00 Mechanical Ventilator 08/21/20 07:50 29 Mechanical Ventilator 100 08/21/20 07:20 112 27 100 08/21/20 07:00 117 28 126/78 (94) 88 08/21/20 07:00 28 Mechanical Ventilator 100 08/21/20 06:00 127 25 123/83 (96) 85 08/21/20 06:00 25 Mechanical Ventilator 100 08/21/20 05:00 134 21 135/86 (102) 82 08/21/20 05:00 21 Mechanical Ventilator 100 08/21/20 04:00 100 08/21/20 04:00 144 08/21/20 04:00 99.2 144 25 132/83 (99) 85 08/21/20 04:00 25 Mechanical Ventilator 100 08/21/20 04:00 Mechanical Ventilator 08/21/20 03:53 144 29 100 08/21/20 03:00 140 31 118/73 (88) 91 08/21/20 02:59 30 Mechanical Ventilator 100 08/21/20 02:00 133 28 131/70 (90) 92 08/21/20 02:00 28 Mechanical Ventilator 100 08/21/20 01:00 27 Mechanical Ventilator 100 08/21/20 01:00 133 27 122/73 (89) 92 08/21/20 00:00 125 08/21/20 00:00 100 08/21/20 00:00 96.8 125 32 124/72 (89) 92 08/21/20 00:00 32 Mechanical Ventilator 100 08/21/20 00:00 Mechanical Ventilator 08/20/20 23:04 117 30 100 08/20/20 23:00 124 27 120/61 (80) 92 08/20/20 23:00 27 Mechanical Ventilator 100 08/20/20 22:00 119 26 116/72 (87) 92 08/20/20 21:58 28 Mechanical Ventilator 100 08/20/20 21:00 118 27 114/75 (88) 96 08/20/20 20:00 100 08/20/20 20:00 125 08/20/20 20:00 97.0 125 28 120/80 (93) 95 08/20/20 20:00 Mechanical Ventilator Accucheck: 146 Critical Care - Subjective ROS Limited/Unobtainable: Yes Condition: critical FI02: 100 Vent Support Breath Rate: 26 Vent Support Mode: AC Vent Tidal Volume: 500 Sputum Amount: Scant PEEP: 16.0 PIP: 40 Tube Feeding Amount: 40 I&O: Intake and Output 08/20/20 08/21/20 19:00 07:00 Intake Total 840 ml 890 ml Output Total 260 ml 380 ml Balance 580 ml 510 ml IV Total 360 ml 360 ml Tube Feeding 480 ml 480 ml Other 50 ml Output Urine Total 260 ml 340 ml Chest Tube Drainage Total 0 ml 40 ml # Bowel Movements 3 30 ET-Tube: 7.5 ET Position: 25 Chuck Ortega MD Aug 21, 2020 19:32
[2020-08-21] MEDS: Dyna-Hex 2% Top Sol 2oz TOPIC SCH (19:36)
--- NOTE | 2020-08-21 19:45 | NUR ---
NURSE NOTES: PATIENT SEDATED, ON ETT TO VENT, AC26/TV500/FIO2 100%/PEEP 16, O2 SATURATION 95% NOTED, HR 120'S/MIN ST, CHEST TUBE TO RIGHT LATERAL UPPER SIDE AND PLEU VAC TO LEFT UPPER CHEST STATUS, INTACT AND SEROSANGUINEOUS DISCHARGE OUTED, NGT INTACT AND PATENT ONGOING GLUCERNA 1.2 AT 40ML/HR, NO RESIDUE NOTED, KEPT HOB 30 DEGREES AND ASPIRATION PRECAUTION, RECTAL TUBE INTACT AND PATENT, BROWN STOOL OUTED, F/C INTACT AND PATENT, DARK YURI COLOR URINE OUTED, PICC LINE TO LEFT UPPER ARM, INTACT AND PATENT, ONGOING VERSED 20MG/HR VIA PICC LINE, KEPT RASS SCORE -2, ON P200 BED, MADE LOWER BED POSITION , ON BED ALARM AND LOCKED, WILL CONTINUE TO MONITOR.
--- NOTE | 2020-08-21 21:00 | NUR ---
NURSE NOTES: CHANGED RIGHT SIDE PLEU VAC, WILL CONTINUE TO MONITOR.
--- NOTE | 2020-08-21 23:45 | NUR ---
NURSE NOTES: Chest tube intact and patent, no leaking status, secured line, will continue to monitor.
[2020-08-22] VITALS (19 sets, daily range): BP systolic 99–133; BP diastolic 57–81
--- NOTE | 2020-08-22 03:10 | NUR ---
NURSE NOTES: PATIENT OPEN EYES, SEDATED, KEPT RASS SCORE -2, ONGOING VERSED 18MG/HR VIA PICC LINE, WILL CONTINUE TO MONITOR.
--- NOTE | 2020-08-22 04:12 | NUR ---
NURSE NOTES: MORNING CARE WAS DONE, RECTAL TUBE INTACT AND BROWN COLOR STOOL OUTED.
[2020-08-22] MEDS: Midazolam HCl 50mg/10ml vial 100 MG in NS 180 ML IV SCH ×2 (04:56→11:19)
[2020-08-22] MEDS: NovoLOG Insulin Flexpen SUBQ SCH ×3 (05:32→17:21)
[2020-08-22 06:30] LABS: HEMATOCRIT 29.7 % (42.0-52.0); HEMOGLOBIN 8.8 G/DL (14.2-18.0); MEAN CORPUSCULAR VOLUME 105 FL (80-99); PLATELET COUNT 157 K/UL (150-450); RED BLOOD COUNT 2.84 M/UL (4.70-6.10); RED CELL DISTRIBUTION WIDTH 21.9 % (11.6-14.8); WHITE BLOOD COUNT 11.9 K/UL (4.8-10.8)
--- NOTE | 2020-08-22 06:45 | NUR ---
NURSE NOTES: SEEN THE PATIENT BY DR. CHOU.
[2020-08-22 06:57] LABS: ALANINE AMINOTRANSFERASE 147 U/L (12-78); ALBUMIN 1.5 G/DL (3.4-5.0); ALBUMIN/GLOBULIN RATIO 0.3 (1.0-2.7); ALKALINE PHOSPHATASE 159 U/L (46-116); ANION GAP 1 mmol/L (5-15); ASPARTATE AMINO TRANSFERASE 200 U/L (15-37); BILIRUBIN,TOTAL 0.8 MG/DL (0.2-1.0); BLOOD UREA NITROGEN 26 mg/dL (7-18); CALCIUM 8.9 MG/DL (8.5-10.1); CHLORIDE 106 MMOL/L (98-107); CREATININE 0.5 MG/DL (0.55-1.30); POTASSIUM 4.6 MMOL/L (3.5-5.1); SODIUM 149 MMOL/L (136-145)
[2020-08-22 07:02] LABS: CARBON DIOXIDE 41 MMOL/L (21-32)
--- NOTE | 2020-08-22 07:20 | NUR ---
NURSE HAND-OFF REPORT: Latest Vital Signs: Temperature 100.0 , Pulse 117 , B/P 132 /75 , Respiratory Rate 25 , O2 SAT 93 , Mechanical Ventilator, O2 Flow Rate . Vital Sign Comment: EKG Rhythm: Sinus Tachycardia Rhythm change?: N MD Notified?: Ildefonso Diana at bedside for re-intubation MD Response: Latest Bradley Fall Score: 50 Fall Risk: High Risk Safety Measures: Call light Within Reach, Bed Alarm Zone 1, Side Rails Side Rails x3, Bed position Low and Locked. Fall Precautions: Yellow Socks Yellow Gown Door Sign Patient Fall Education Report given to ELIER FAIR.
--- NOTE | 2020-08-22 07:20 | NUR ---
NURSE NOTES: Report received from Tapan Awan RN.Pt sedated,non responsive to stimuli,orally intubated ETT7.5,lip line 25,AC 26,TV 500,Fio2 100%Peep 16,O2 sat only on the low 90's,no resp distress presented,no signs of discomfort or agitation noted S-Tach on the monjtor,OGT feeding Glucerna 1.2 at 40 ml/hr in placed per auscultation,no residual noted,Biswas cath draining adequate urine,pt with chest tube x2 RT and LT in placed,skin warm and edematous,Iv site to DANIEL PICC line intact with Versed drip at 18 mcg /hr infusing at 36 ml/hr,SR up x2 HOB elevated, bed lock in lowest position,will continue with plans of care.
--- NOTE | 2020-08-22 07:59 | NUR ---
RADIOLOGY DEPT., CHEST X-RAY DONE.-P.DYE
--- NOTE | 2020-08-22 08:22 | NUR ---
RADIOLOGY: PCXR COMPLETED 0800 HRS. NF
[2020-08-22] MEDS: Docusate 100mg/10ml Liq NG SCH (08:37)
[2020-08-22] MEDS: Vitamin B Complex Tab NG SCH (08:37)
[2020-08-22] MEDS: Levemir Flexpen SUBQ SCH (08:46)
--- NOTE | 2020-08-22 10:00 | NUR ---
NURSE NOTES: Oral care care done,ETT suctioning done to minimal amount of sricky white secretions.
--- NOTE | 2020-08-22 11:53 | Infectious Diseases Prog Note ---
Assessment/Plan Assessment/Plan antibiotics : none A 1. COVID-19 pneumonia on 100 % Fi O2 of oxygen with O2 saturation 88 %. s/p ivermectin x 2 s/p solumedrol 2. History of asthma. 3. Elevated liver function tests improving 4. klebsiella pneumonia s/p rx 5. thrush s/p rx 6. pneumothorax improving P 1. continue off antibiotics 2. Continue isolation. Subjective ROS Limited/Unobtainable: Yes Allergies: Coded Allergies: No Known Allergies (Unverified , 03/08/17) Objective Last 24 Hour Vital Signs Date Time Temp Pulse Resp B/P (MAP) Pulse Ox O2 Delivery O2 Flow Rate FiO2 08/22/20 11:19 29 Mechanical Ventilator 100 08/22/20 11:00 29 Mechanical Ventilator 100 08/22/20 10:00 126 27 133/75 (94) 88 08/22/20 10:00 27 Mechanical Ventilator 100 08/22/20 09:00 26 Mechanical Ventilator 100 08/22/20 09:00 110 25 110/60 (77) 88 08/22/20 08:17 100 08/22/20 08:00 26 Mechanical Ventilator 100 08/22/20 08:00 97.4 109 26 107/64 (78) 92 08/22/20 08:00 110 08/22/20 08:00 Mechanical Ventilator 08/22/20 07:10 111 26 100 08/22/20 07:00 117 25 132/75 (94) 93 08/22/20 07:00 25 Mechanical Ventilator 100 08/22/20 06:00 132 25 123/76 (92) 91 08/22/20 06:00 25 Mechanical Ventilator 100 08/22/20 05:00 146 27 119/69 (86) 83 08/22/20 05:00 27 Mechanical Ventilator 100 08/22/20 04:56 27 Mechanical Ventilator 100 08/22/20 04:00 Mechanical Ventilator 08/22/20 04:00 100 08/22/20 04:00 146 08/22/20 04:00 26 Mechanical Ventilator 100 08/22/20 04:00 100.0 143 26 126/81 (96) 71 08/22/20 03:37 144 28 100 08/22/20 03:00 38 Mechanical Ventilator 100 08/22/20 03:00 144 38 107/67 (80) 84 08/22/20 02:00 138 38 108/73 (85) 88 08/22/20 02:00 38 Mechanical Ventilator 100 08/22/20 01:00 33 Mechanical Ventilator 100 08/22/20 01:00 131 33 115/65 (82) 83 08/22/20 00:00 Mechanical Ventilator 08/22/20 00:00 27 Mechanical Ventilator 100 08/22/20 00:00 100 08/22/20 00:00 96.0 122 27 99/57 (71) 76 08/22/20 00:00 122 08/21/20 23:30 120 30 100/70 (80) 82 08/21/20 23:22 25 Mechanical Ventilator 100 08/21/20 23:15 121 27 101/63 (76) 77 08/21/20 23:14 120 26 100 08/21/20 23:00 124 32 112/76 (88) 83 08/21/20 22:45 128 27 105/79 (88) 81 08/21/20 22:00 34 Mechanical Ventilator 100 08/21/20 22:00 130 34 102/74 (83) 82 08/21/20 21:00 29 Mechanical Ventilator 100 08/21/20 21:00 131 29 95/69 (78) 85 08/21/20 20:00 Mechanical Ventilator 08/21/20 20:00 100 08/21/20 20:00 97.0 141 38 101/67 (78) 75 08/21/20 20:00 38 Mechanical Ventilator 100 08/21/20 19:24 144 08/21/20 19:11 148 27 100 08/21/20 19:00 29 Mechanical Ventilator 100 08/21/20 19:00 146 30 91/57 (68) 81 08/21/20 18:11 30 Mechanical Ventilator 100 08/21/20 18:00 155 24 92/47 (62) 64 08/21/20 18:00 30 Mechanical Ventilator 100 08/21/20 17:00 149 19 88/55 (66) 50 08/21/20 17:00 29 Mechanical Ventilator 100 08/21/20 16:00 100 08/21/20 16:00 151 08/21/20 16:00 99.1 151 18 109/63 (78) 58 08/21/20 16:00 29 Mechanical Ventilator 100 08/21/20 16:00 Mechanical Ventilator 08/21/20 15:00 29 Mechanical Ventilator 100 08/21/20 15:00 149 15 117/73 (88) 63 08/21/20 14:00 149 14 117/72 (87) 68 08/21/20 14:00 29 Mechanical Ventilator 100 08/21/20 13:30 145 21 126/74 (91) 69 08/21/20 13:20 149 26 100 08/21/20 13:00 140 34 136/72 (93) 62 08/21/20 13:00 30 Mechanical Ventilator 100 08/21/20 12:30 29 Mechanical Ventilator 100 08/21/20 12:00 100 08/21/20 12:00 149 08/21/20 12:00 30 Mechanical Ventilator 100 08/21/20 12:00 98.3 137 26 135/78 (97) 71 08/21/20 12:00 Mechanical Ventilator Height (Feet): 5 Height (Inches): 6.00 Weight (Pounds): 209 HEENT: other - intubated Laboratory Tests Test 08/21/20 15:41 08/22/20 05:42 Arterial Blood pH 7.353 (7.350-7.450) Arterial Blood Partial Pressure CO2 86.5 mmHg (35.0-45.0) *H Arterial Blood Partial Pressure O2 33.6 mmHg (75.0-100.0) Arterial Blood HCO3 47.0 mmol/L (22.0-26.0) *H Arterial Blood Oxygen Saturation 62.7 % (95-100) *L Arterial Blood Base Excess 18.1 (-2-2) *H Jacob Test Positive White Blood Count 11.9 K/UL (4.8-10.8) H Red Blood Count 2.84 M/UL (4.70-6.10) L Hemoglobin 8.8 G/DL (14.2-18.0) L Hematocrit 29.7 % (42.0-52.0) L Mean Corpuscular Volume 105 FL (80-99) H Mean Corpuscular Hemoglobin 30.9 PG (27.0-31.0) Mean Corpuscular Hemoglobin Concent 29.5 G/DL (32.0-36.0) L Red Cell Distribution Width 21.9 % (11.6-14.8) H Platelet Count 157 K/UL (150-450) Mean Platelet Volume 8.4 FL (6.5-10.1) Neutrophils (%) (Auto) % (45.0-75.0) Lymphocytes (%) (Auto) % (20.0-45.0) Monocytes (%) (Auto) % (1.0-10.0) Eosinophils (%) (Auto) % (0.0-3.0) Basophils (%) (Auto) % (0.0-2.0) Differential Total Cells Counted 100 Neutrophils % (Manual) 74 % (45-75) Lymphocytes % (Manual) 17 % (20-45) L Monocytes % (Manual) 7 % (1-10) Eosinophils % (Manual) 0 % (0-3) Basophils % (Manual) 0 % (0-2) Band Neutrophils 2 % (0-8) Nucleated Red Blood Cells 4 /100 WBC Platelet Estimate Adequate Platelet Morphology Normal Hypochromasia 3+ Anisocytosis 3+ Sodium Level 149 MMOL/L (136-145) H Potassium Level 4.6 MMOL/L (3.5-5.1) Chloride Level 106 MMOL/L (98-107) Carbon Dioxide Level 41 MMOL/L (21-32) *H Anion Gap 1 mmol/L (5-15) L Blood Urea Nitrogen 26 mg/dL (7-18) H Creatinine 0.5 MG/DL (0.55-1.30) #L Estimat Glomerular Filtration Rate > 60 mL/min (>60) Glucose Level 128 MG/DL (74-106) H Calcium Level 8.9 MG/DL (8.5-10.1) Total Bilirubin 0.8 MG/DL (0.2-1.0) Aspartate Amino Transf (AST/SGOT) 200 U/L (15-37) H Alanine Aminotransferase (ALT/SGPT) 147 U/L (12-78) H Alkaline Phosphatase 159 U/L (46-116) H Total Protein 6.0 G/DL (6.4-8.2) L Albumin 1.5 G/DL (3.4-5.0) L Globulin 4.5 g/dL Albumin/Globulin Ratio 0.3 (1.0-2.7) L Current Medications Medications (Trade) Dose Ordered Sig/Milagro Route PRN Reason Start Time Stop Time Status Last Admin Dose Admin Acetaminophen (Tylenol) 650 mg Q4H PRN RECTAL Mild Pain (Pain Scale 1-3) 07/24/20 18:15 08/23/20 18:14 07/25/20 11:49 Acetaminophen (Tylenol) 650 mg Q6H PRN NG Temp >100.5 07/26/20 08:30 08/25/20 08:29 08/17/20 22:33 Acetaminophen (Tylenol) 650 mg Q6H PRN NG Mild Pain (Pain Scale 1-3) 07/26/20 08:30 08/25/20 08:29 08/19/20 17:21 Chlorhexidine Gluconate (Marycarmen-Hex 2%) 1 applic DAILY@2000 TOPIC 07/20/20 20:00 10/18/20 19:59 08/21/20 19:36 Dextrose (Dextrose 50%) 25 ml Q30M PRN IV Hypoglycemia 07/23/20 13:15 10/21/20 13:14 Dextrose (Dextrose 50%) 50 ml Q30M PRN IV Hypoglycemia 07/23/20 13:15 10/21/20 13:14 08/15/20 20:26 Dextrose/Sodium Chloride 1,000 ml @ 100 mls/hr Q10H PRN IV WHILE PRONING ONLY 07/24/20 17:45 08/23/20 17:44 08/10/20 05:33 Docusate Sodium (Colace) 100 mg EVERY 12 HOURS NG 07/27/20 21:00 08/26/20 20:59 08/22/20 08:37 Famotidine (Pepcid I.v.) 20 mg Q12HR IVP 08/04/20 21:00 09/03/20 20:59 08/22/20 08:37 Insulin Aspart (NovoLOG) EVERY 6 HOURS SUBQ 07/28/20 00:00 10/21/20 15:59 08/21/20 23:35 Insulin Detemir (Levemir) 13 units EVERY 12 HOURS SUBQ 08/19/20 09:00 11/17/20 08:59 08/22/20 08:46 Midazolam HCl 100 mg/Sodium Chloride 200 ml @ 0 mls/hr Q24H IV 08/12/20 18:00 08/22/20 17:59 08/22/20 11:19 Morphine Sulfate (Morphine Sulfate) 2 mg Q4H PRN IVP For Pain 08/19/20 21:18 08/26/20 21:17 08/20/20 05:05 Norepinephrine Bitartrate 250 ml @ 7.5 mls/hr Q24H PRN IV For hypotension 08/21/20 18:30 08/24/20 18:29 Ondansetron HCl (Zofran) 4 mg Q6H PRN IVP Nausea & Vomiting 08/15/20 15:45 09/14/20 15:44 08/15/20 15:54 Vitamin B Complex (Vitamin B Complex) 1 tab DAILY NG 07/24/20 09:00 10/09/20 08:59 08/22/20 08:37 Jose Alberto MD Aug 22, 2020 11:53
--- NOTE | 2020-08-22 13:00 | NUR ---
NURSE NOTES: Pt status unstable O2 sat remains low in the 80's for Fio2 100%
--- NOTE | 2020-08-22 15:00 | Diagnostic Imaging Report ---
Indication: Cough Technique: One view of the chest Comparison: 08/21/2020 Findings: Previously demonstrated right-sided pneumothorax has improved but persists, lung apex currently 15 mm from the apex of the pleural space, previously 25 mm. Right chest tube remains in place. Previously demonstrated left pneumothorax appears unchanged at the apex, but appears slightly increased bilaterally. Left chest vent catheter remains in good position. Subcutaneous emphysema has decreased slightly. Previously demonstrated pneumomediastinum is barely visible. Consolidation at the right lung base appears slightly increased. Diffuse and extensive infiltrates elsewhere appears unchanged. Stable satisfactory positions of endotracheal and orogastric tubes. Previously demonstrated left arm PICC remains in stable satisfactory position Impression: Slightly improved right pneumothorax Slightly worse left pneumothorax Slightly increased right basilar infiltrate. Infiltrates elsewhere are unchanged. Slightly decreased subcutaneous emphysema
--- NOTE | 2020-08-22 15:34 | NUR ---
CASE MANAGEMENT:REVIEW 08/22/20 SI: COVID PNA. PNEUMOTHORAX W/CONSUELO CHEST TUBES ACUTE RESPIRATORY FAILURE ~ INTUBATED 98.7 113 25 120/70 SAT~88% ON VENT SUPPORT W/100% FIO2 WBC+11.9 H/H-8.8/29.7 CO2+41 PCO2+86.5 PO2-33.6 HCO3_47.0 IS: VERSED GTT LEVEMIR SQ Q12 IVF@100/HR IV PEPCID Q12HRS IV MORPHINE Q4HRS PRN : ICU STATUS DCP: FROM HOME
--- NOTE | 2020-08-22 15:47 | General Progress Note ---
Subjective ROS Limited/Unobtainable: Yes Constitutional: Reports: malaise, weakness HEENT: Reports: no symptoms Cardiovascular: Reports: no symptoms Respiratory: Reports: shortness of breath Gastrointestinal/Abdominal: Reports: difficulty swallowing Genitourinary: Reports: no symptoms Neurologic/Psychiatric: Reports: no symptoms Endocrine: Reports: no symptoms Hematologic/Lymphatic: Reports: anemia Allergies: Coded Allergies: No Known Allergies (Unverified , 03/08/17) All Systems: reviewed and negative except above Subjective no events. stable on the vent. still on high peep and fio2. labile sats. sedated Objective Last 24 Hour Vital Signs Date Time Temp Pulse Resp B/P (MAP) Pulse Ox O2 Delivery O2 Flow Rate FiO2 08/22/20 15:00 119 25 108/61 (77) 88 08/22/20 14:00 104 26 106/61 (76) 91 08/22/20 13:00 26 Mechanical Ventilator 100 08/22/20 13:00 101 26 109/59 (76) 92 08/22/20 12:00 Mechanical Ventilator 08/22/20 12:00 25 100 08/22/20 12:00 119 08/22/20 12:00 100 08/22/20 12:00 98.7 113 25 120/70 (87) 92 08/22/20 11:19 29 Mechanical Ventilator 100 08/22/20 11:00 29 Mechanical Ventilator 100 08/22/20 11:00 124 26 129/69 (89) 92 08/22/20 10:00 126 27 133/75 (94) 88 08/22/20 10:00 27 Mechanical Ventilator 100 08/22/20 09:00 26 Mechanical Ventilator 100 08/22/20 09:00 110 25 110/60 (77) 88 08/22/20 08:17 100 08/22/20 08:00 26 Mechanical Ventilator 100 08/22/20 08:00 97.4 109 26 107/64 (78) 92 08/22/20 08:00 110 08/22/20 08:00 Mechanical Ventilator 08/22/20 07:10 111 26 100 08/22/20 07:00 117 25 132/75 (94) 93 08/22/20 07:00 25 Mechanical Ventilator 100 08/22/20 06:00 132 25 123/76 (92) 91 08/22/20 06:00 25 Mechanical Ventilator 100 08/22/20 05:00 146 27 119/69 (86) 83 08/22/20 05:00 27 Mechanical Ventilator 100 08/22/20 04:56 27 Mechanical Ventilator 100 08/22/20 04:00 Mechanical Ventilator 08/22/20 04:00 100 08/22/20 04:00 146 08/22/20 04:00 26 Mechanical Ventilator 100 08/22/20 04:00 100.0 143 26 126/81 (96) 71 08/22/20 03:37 144 28 100 08/22/20 03:00 38 Mechanical Ventilator 100 08/22/20 03:00 144 38 107/67 (80) 84 08/22/20 02:00 138 38 108/73 (85) 88 08/22/20 02:00 38 Mechanical Ventilator 100 08/22/20 01:00 33 Mechanical Ventilator 100 08/22/20 01:00 131 33 115/65 (82) 83 08/22/20 00:00 Mechanical Ventilator 08/22/20 00:00 27 Mechanical Ventilator 100 08/22/20 00:00 100 08/22/20 00:00 96.0 122 27 99/57 (71) 76 08/22/20 00:00 122 08/21/20 23:30 120 30 100/70 (80) 82 08/21/20 23:22 25 Mechanical Ventilator 100 08/21/20 23:15 121 27 101/63 (76) 77 08/21/20 23:14 120 26 100 08/21/20 23:00 124 32 112/76 (88) 83 08/21/20 22:45 128 27 105/79 (88) 81 08/21/20 22:00 34 Mechanical Ventilator 100 08/21/20 22:00 130 34 102/74 (83) 82 08/21/20 21:00 29 Mechanical Ventilator 100 08/21/20 21:00 131 29 95/69 (78) 85 08/21/20 20:00 Mechanical Ventilator 08/21/20 20:00 100 08/21/20 20:00 97.0 141 38 101/67 (78) 75 08/21/20 20:00 38 Mechanical Ventilator 100 08/21/20 19:24 144 08/21/20 19:11 148 27 100 08/21/20 19:00 29 Mechanical Ventilator 100 08/21/20 19:00 146 30 91/57 (68) 81 08/21/20 18:11 30 Mechanical Ventilator 100 08/21/20 18:00 155 24 92/47 (62) 64 08/21/20 18:00 30 Mechanical Ventilator 100 08/21/20 17:00 149 19 88/55 (66) 50 08/21/20 17:00 29 Mechanical Ventilator 100 08/21/20 16:00 100 08/21/20 16:00 151 08/21/20 16:00 99.1 151 18 109/63 (78) 58 08/21/20 16:00 29 Mechanical Ventilator 100 08/21/20 16:00 Mechanical Ventilator Intake and Output 08/21/20 08/22/20 19:00 07:00 Intake Total 1005.99 ml 962.34 ml Output Total 605 ml 290 ml Balance 400.99 ml 672.34 ml IV Total 425.99 ml 442.34 ml Tube Feeding 480 ml 480 ml Other 100 ml 40 ml Output Urine Total 430 ml 180 ml Stool Total 0 ml 50 ml Chest Tube Drainage Total 175 ml 60 ml Laboratory Tests 08/22/20 05:42: White Blood Count 11.9H, Red Blood Count 2.84L, Hemoglobin 8.8L, Hematocrit 29.7L, Mean Corpuscular Volume 105H, Mean Corpuscular Hemoglobin 30.9, Mean Corpuscular Hemoglobin Concent 29.5L, Red Cell Distribution Width 21.9H, Platelet Count 157, Mean Platelet Volume 8.4, Neutrophils (%) (Auto) , Lymphocytes (%) (Auto) , Monocytes (%) (Auto) , Eosinophils (%) (Auto) , Basophils (%) (Auto) , Differential Total Cells Counted 100, Neutrophils % (Manual) 74, Lymphocytes % (Manual) 17L, Monocytes % (Manual) 7, Eosinophils % (Manual) 0, Basophils % (Manual) 0, Band Neutrophils 2, Nucleated Red Blood Cell s 4, Platelet Estimate Adequate, Platelet Morphology Normal, Hypochromasia 3+, Anisocytosis 3+, Sodium Level 149H, Potassium Level 4.6, Chloride Level 106, Carbon Dioxide Level 41*H, Anion Gap 1L, Blood Urea Nitrogen 26H, Creatinine 0.5#L, Estimat Glomerular Filtration Rate > 60, Glucose Level 128H, Calcium Level 8.9, Total Bilirubin 0.8, Aspartate Amino Transf (AST/SGOT) 200H, Alanine Aminotransferase (ALT/SGPT) 147H, Alkaline Phosphatase 159H, Total Protein 6.0L, Albumin 1.5L, Globulin 4.5, Albumin/Globulin Ratio 0.3L Height (Feet): 5 Height (Inches): 6.00 Weight (Pounds): 209 General Appearance: lethargic Neck: supple Cardiovascular: regular rhythm Respiratory/Chest: lungs clear Abdomen: normal bowel sounds, non tender, soft, no organomegaly Edema: no edema noted Arm (L), no edema noted Arm (R) Neurologic: unresponsive Assessment/Plan Problem List: (1) Coronavirus infection ICD Codes: B34.2 - Coronavirus infection, unspecified SNOMED: 102780824 (2) Respiratory failure ICD Codes: J96.90 - Respiratory failure, unspecified, unspecified whether with hypoxia or hypercapnia SNOMED: 864965344 (3) Hypercapnia ICD Codes: R06.89 - Other abnormalities of breathing SNOMED: 70568552, 348439088 (4) Hypoxia ICD Codes: R09.02 - Hypoxemia SNOMED: 917248278 (5) Asthma ICD Codes: J45.909 - Unspecified asthma, uncomplicated SNOMED: 571234023, 716187141 (6) Pneumothorax ICD Codes: J93.9 - Pneumothorax, unspecified SNOMED: 00246961 Status: progressing, not improved Assessment/Plan: vent support try to wean fio2 and peep monitor cxr and abg anxiolytics dvt/stress ulcer prophylaxis Rolando Cherry MD Aug 22, 2020 15:47
--- NOTE | 2020-08-22 17:22 | Pulmonology Progress Note ---
Subjective ROS Limited/Unobtainable: Yes Gastrointestinal/Abdominal: Reports: nausea, vomiting, diarrhea Musculoskeletal: Reports: pain Allergies: Coded Allergies: No Known Allergies (Unverified , 03/08/17) All Systems: reviewed and negative except above Subjective ct in place remains on high oxygen and PEEP reduced and patient desaturated on vent full code d/w nursing sedated doing poorly Objective Last 24 Hour Vital Signs Date Time Temp Pulse Resp B/P (MAP) Pulse Ox O2 Delivery O2 Flow Rate FiO2 08/22/20 15:00 119 25 108/61 (77) 88 08/22/20 15:00 25 Mechanical Ventilator 100 08/22/20 14:00 104 26 106/61 (76) 91 08/22/20 14:00 26 Mechanical Ventilator 100 08/22/20 13:00 26 Mechanical Ventilator 100 08/22/20 13:00 101 26 109/59 (76) 92 08/22/20 12:00 Mechanical Ventilator 08/22/20 12:00 25 100 08/22/20 12:00 119 08/22/20 12:00 100 08/22/20 12:00 98.7 113 25 120/70 (87) 92 08/22/20 11:19 29 Mechanical Ventilator 100 08/22/20 11:00 29 Mechanical Ventilator 100 08/22/20 11:00 124 26 129/69 (89) 92 08/22/20 10:00 126 27 133/75 (94) 88 08/22/20 10:00 27 Mechanical Ventilator 100 08/22/20 09:00 26 Mechanical Ventilator 100 08/22/20 09:00 110 25 110/60 (77) 88 08/22/20 08:17 100 08/22/20 08:00 26 Mechanical Ventilator 100 08/22/20 08:00 97.4 109 26 107/64 (78) 92 08/22/20 08:00 110 08/22/20 08:00 Mechanical Ventilator 08/22/20 07:10 111 26 100 08/22/20 07:00 117 25 132/75 (94) 93 08/22/20 07:00 25 Mechanical Ventilator 100 08/22/20 06:00 132 25 123/76 (92) 91 08/22/20 06:00 25 Mechanical Ventilator 100 08/22/20 05:00 146 27 119/69 (86) 83 08/22/20 05:00 27 Mechanical Ventilator 100 08/22/20 04:56 27 Mechanical Ventilator 100 08/22/20 04:00 Mechanical Ventilator 08/22/20 04:00 100 08/22/20 04:00 146 08/22/20 04:00 26 Mechanical Ventilator 100 08/22/20 04:00 100.0 143 26 126/81 (96) 71 08/22/20 03:37 144 28 100 08/22/20 03:00 38 Mechanical Ventilator 100 08/22/20 03:00 144 38 107/67 (80) 84 08/22/20 02:00 138 38 108/73 (85) 88 08/22/20 02:00 38 Mechanical Ventilator 100 08/22/20 01:00 33 Mechanical Ventilator 100 08/22/20 01:00 131 33 115/65 (82) 83 08/22/20 00:00 Mechanical Ventilator 08/22/20 00:00 27 Mechanical Ventilator 100 08/22/20 00:00 100 08/22/20 00:00 96.0 122 27 99/57 (71) 76 08/22/20 00:00 122 08/21/20 23:30 120 30 100/70 (80) 82 08/21/20 23:22 25 Mechanical Ventilator 100 08/21/20 23:15 121 27 101/63 (76) 77 08/21/20 23:14 120 26 100 08/21/20 23:00 124 32 112/76 (88) 83 08/21/20 22:45 128 27 105/79 (88) 81 08/21/20 22:00 34 Mechanical Ventilator 100 08/21/20 22:00 130 34 102/74 (83) 82 08/21/20 21:00 29 Mechanical Ventilator 100 08/21/20 21:00 131 29 95/69 (78) 85 08/21/20 20:00 Mechanical Ventilator 08/21/20 20:00 100 08/21/20 20:00 97.0 141 38 101/67 (78) 75 08/21/20 20:00 38 Mechanical Ventilator 100 08/21/20 19:24 144 08/21/20 19:11 148 27 100 08/21/20 19:00 29 Mechanical Ventilator 100 08/21/20 19:00 146 30 91/57 (68) 81 08/21/20 18:11 30 Mechanical Ventilator 100 08/21/20 18:00 155 24 92/47 (62) 64 08/21/20 18:00 30 Mechanical Ventilator 100 Intake and Output 08/21/20 08/22/20 19:00 07:00 Intake Total 1005.99 ml 962.34 ml Output Total 605 ml 290 ml Balance 400.99 ml 672.34 ml IV Total 425.99 ml 442.34 ml Tube Feeding 480 ml 480 ml Other 100 ml 40 ml Output Urine Total 430 ml 180 ml Stool Total 0 ml 50 ml Chest Tube Drainage Total 175 ml 60 ml Objective deferred due to COVID Laboratory Tests 08/22/20 05:42: White Blood Count 11.9H, Red Blood Count 2.84L, Hemoglobin 8.8L, Hematocrit 29.7L, Mean Corpuscular Volume 105H, Mean Corpuscular Hemoglobin 30.9, Mean Corpuscular Hemoglobin Concent 29.5L, Red Cell Distribution Width 21.9H, Platelet Count 157, Mean Platelet Volume 8.4, Neutrophils (%) (Auto) , Lymphocytes (%) (Auto) , Monocytes (%) (Auto) , Eosinophils (%) (Auto) , Basophils (%) (Auto) , Differential Total Cells Counted 100, Neutrophils % (Manual) 74, Lymphocytes % (Manual) 17L, Monocytes % (Manual) 7, Eosinophils % (Manual) 0, Basophils % (Manual) 0, Band Neutrophils 2, Nucleated Red Blood Cells 4, Platelet Estimate Adequate, Platelet Morphology Normal, Hypochromasia 3+, Anisocytosis 3+, Sodium Level 149H, Potassium Level 4.6, Chloride Level 106, Carbon Dioxide Level 41*H, Anion Gap 1L, Blood Urea Nitrogen 26H, Creatinine 0.5#L, Estimat Glomerular Filtration Rate > 60, Glucose Level 128H, Calcium Level 8.9, Total Bilirubin 0.8, Aspartate Amino Transf (AST/SGOT) 200H, Alanine Aminotransferase (ALT/SGPT) 147H, Alkaline Phosphatase 159H, Total Protein 6.0L, Albumin 1.5L, Globulin 4.5, Albumin/Globulin Ratio 0.3L Current Medications Medications (Trade) Dose Ordered Sig/Milagro Route PRN Reason Start Time Stop Time Status Last Admin Dose Admin Acetaminophen (Tylenol) 650 mg Q4H PRN RECTAL Mild Pain (Pain Scale 1-3) 07/24/20 18:15 08/23/20 18:14 07/25/20 11:49 Acetaminophen (Tylenol) 650 mg Q6H PRN NG Temp >100.5 07/26/20 08:30 08/25/20 08:29 08/17/20 22:33 Acetaminophen (Tylenol) 650 mg Q6H PRN NG Mild Pain (Pain Scale 1-3) 07/26/20 08:30 08/25/20 08:29 08/19/20 17:21 Chlorhexidine Gluconate (Marycarmen-Hex 2%) 1 applic DAILY@2000 TOPIC 07/20/20 20:00 10/18/20 19:59 08/21/20 19:36 Dextrose (Dextrose 50%) 25 ml Q30M PRN IV Hypoglycemia 07/23/20 13:15 10/21/20 13:14 Dextrose (Dextrose 50%) 50 ml Q30M PRN IV Hypoglycemia 07/23/20 13:15 10/21/20 13:14 08/15/20 20:26 Dextrose/Sodium Chloride 1,000 ml @ 100 mls/hr Q10H PRN IV WHILE PRONING ONLY 07/24/20 17:45 08/23/20 17:44 08/10/20 05:33 Docusate Sodium (Colace) 100 mg EVERY 12 HOURS NG 07/27/20 21:00 08/26/20 20:59 08/22/20 08:37 Famotidine (Pepcid I.v.) 20 mg Q12HR IVP 08/04/20 21:00 09/03/20 20:59 08/22/20 08:37 Insulin Aspart (NovoLOG) EVERY 6 HOURS SUBQ 07/28/20 00:00 10/21/20 15:59 08/21/20 23:35 Insulin Detemir (Levemir) 13 units EVERY 12 HOURS SUBQ 08/19/20 09:00 11/17/20 08:59 08/22/20 08:46 Midazolam HCl 100 mg/Sodium Chloride 200 ml @ 0 mls/hr Q24H IV 08/12/20 18:00 08/22/20 17:59 08/22/20 11:19 Morphine Sulfate (Morphine Sulfate) 2 mg Q4H PRN IVP For Pain 08/19/20 21:18 08/26/20 21:17 08/20/20 05:05 Norepinephrine Bitartrate 250 ml @ 7.5 mls/hr Q24H PRN IV For hypotension 08/21/20 18:30 08/24/20 18:29 Ondansetron HCl (Zofran) 4 mg Q6H PRN IVP Nausea & Vomiting 08/15/20 15:45 09/14/20 15:44 08/15/20 15:54 Vitamin B Complex (Vitamin B Complex) 1 tab DAILY NG 07/24/20 09:00 10/09/20 08:59 08/22/20 08:37 Assessment/Plan Assessment/Plan acute hypoxemic respiratory failure COVID pneumonia Asthma elevated liver enzymes DNR ARDS with fibrosing phase pneumothorax bilateral chest tubes elevated TG subq emphysema PLAN weekend events noted CT per surgery / monitor sq emphysema imaging PRN reviewed unable to trach at present monitor acid base status respiratory care as is ID noted DVT prophylaxis prognosis poor overall for meaningful recovery monitor respiratory status for change not safe for trach placement yet d/w surgery as to chest tube medications/laboratory data/nursing notes/ICU care reviewed in detail note reviewed and edited care discussed with RN and RT ICU time spent >40 minutes Elfego Price MD Aug 22, 2020 17:22
--- NOTE | 2020-08-22 17:51 | NUR ---
INSURANCE CLINICALS/REVIEW FAXED TO [facility] P [phone] F [phone] [facility] P [phone] F [phone]
--- NOTE | 2020-08-22 18:15 | NUR ---
NURSE NOTES: Pt noted with low BP 60 /30,Dr Swain ordered dopamine drip but not infused pt went asystole.pt DNR
[2020-08-22] MEDS ORDERED: DOPamine 400mg/250ml 0 ML IV ONE (18:21)
--- NOTE | 2020-08-22 18:35 | NUR ---
NURSE NOTES: Spoke to Dilshadjazmine Morales (brother0- stated that Dr. Cherry already called him via phone and informed him of his brother's . Instructed that we will give him a call after pronouncement is done
--- NOTE | 2020-08-22 18:37 | NUR ---
NURSE NOTES: Pt pronounced by ER MD Dr Kari Silverman.
--- NOTE | 2020-08-22 18:46 | Emergency Room Report ---
History of Present Illness General Chief Complaint: Dyspnea/Respdistress Source: Medical Record, PMD Present Illness Allergies: Coded Allergies: No Known Allergies (Unverified , 03/08/17) COVID-19 Screening Contact w/high risk pt: No Experienced COVID-19 symptoms?: Yes COVID-19 Testing performed [employer]: Yes COVID-19 Screening: Positive COVID-19 COVID-19 Testing Source: 1 week ago Nursing Documentation-PMH Hx Cardiac Problems: No Hx Hypertension: Yes Hx Asthma: Yes Hx Cancer: No Hx Gastrointestinal Problems: No Hx Neurological Problems: No Physical Exam Vital Signs Date Time Temp Pulse Resp B/P (MAP) Pulse Ox O2 Delivery O2 Flow Rate FiO2 08/18/20 07:00 91 23 96/62 (73) 08/18/20 07:25 100 08/18/20 07:30 Mechanical Ventilator 08/18/20 07:30 99 08/18/20 08:00 97.2 Medical Decision Making Diagnostic Impression: Primary Impression: Acute respiratory distress syndrome (ARDS) due to 2019-nCoV Additional Impressions: Acute hypoxemic respiratory failure due to COVID-19 Obesity (BMI 30-39.9) HTN (hypertension) Diabetes Hypercapnia Hypoxia Asthma ER Course I was called to ICU to pronounce patient who was admitted with renal failure due to COVID-19 and ARDS. Patient had DNR signed in chart by family. Patient attached to ventilator had no spontaneous respirations was in asystole had no palpable pulses and had fixed dilated pupils. Patient was pronounced at 1837. Last Vital Signs Date Time Temp Pulse Resp B/P (MAP) Pulse Ox O2 Delivery O2 Flow Rate FiO2 08/22/20 18:00 54 25 119/57 (77) 22 08/22/20 16:00 100 08/22/20 16:00 98.7 08/22/20 15:00 Mechanical Ventilator Disposition: ADMITTED INPATIENT Condition: Referrals: NOT CHOSEN IPA/,REFERRING (PCP) Doreen Ross M.D. Aug 22, 2020 18:46
--- NOTE | 2020-08-22 19:00 | Cardiology Progress Note ---
Subjective DATE OF SERVICE: Aug 22, 2020 Condition remains critical and prognosis grave He remains on full vent support, on high flow FIO2 - orally intubated; he is still desaturating. s/p left PTX - chest tube placed with improvement; still with subcutaneous emphysema. He is increasingly hypoxic and hypotensive now. Family aware of gravity of condition Objective Last 24 Hour Vital Signs Date Time Temp Pulse Resp B/P (MAP) Pulse Ox O2 Delivery O2 Flow Rate FiO2 08/22/20 18:00 54 25 119/57 (77) 22 08/22/20 17:00 114 25 108/61 (77) 89 08/22/20 16:00 123 08/22/20 16:00 100 08/22/20 16:00 98.7 121 27 119/67 (84) 89 08/22/20 16:00 Mechanical Ventilator 08/22/20 15:10 119 27 100 08/22/20 15:00 119 25 108/61 (77) 88 08/22/20 15:00 25 Mechanical Ventilator 100 08/22/20 14:00 104 26 106/61 (76) 91 08/22/20 14:00 26 Mechanical Ventilator 100 08/22/20 13:00 26 Mechanical Ventilator 100 08/22/20 13:00 101 26 109/59 (76) 92 08/22/20 12:00 Mechanical Ventilator 08/22/20 12:00 25 100 08/22/20 12:00 119 08/22/20 12:00 100 08/22/20 12:00 98.7 113 25 120/70 (87) 92 08/22/20 11:19 29 Mechanical Ventilator 100 08/22/20 11:10 124 26 100 08/22/20 11:00 29 Mechanical Ventilator 100 08/22/20 11:00 124 26 129/69 (89) 92 08/22/20 10:00 126 27 133/75 (94) 88 08/22/20 10:00 27 Mechanical Ventilator 100 08/22/20 09:00 26 Mechanical Ventilator 100 08/22/20 09:00 110 25 110/60 (77) 88 08/22/20 08:17 100 08/22/20 08:00 26 Mechanical Ventilator 100 08/22/20 08:00 97.4 109 26 107/64 (78) 92 08/22/20 08:00 110 08/22/20 08:00 Mechanical Ventilator 08/22/20 07:10 111 26 100 08/22/20 07:00 117 25 132/75 (94) 93 08/22/20 07:00 25 Mechanical Ventilator 100 08/22/20 06:00 132 25 123/76 (92) 91 08/22/20 06:00 25 Mechanical Ventilator 100 08/22/20 05:00 146 27 119/69 (86) 83 08/22/20 05:00 27 Mechanical Ventilator 100 08/22/20 04:56 27 Mechanical Ventilator 100 08/22/20 04:00 Mechanical Ventilator 08/22/20 04:00 100 08/22/20 04:00 146 08/22/20 04:00 26 Mechanical Ventilator 100 08/22/20 04:00 100.0 143 26 126/81 (96) 71 08/22/20 03:37 144 28 100 08/22/20 03:00 38 Mechanical Ventilator 100 08/22/20 03:00 144 38 107/67 (80) 84 08/22/20 02:00 138 38 108/73 (85) 88 08/22/20 02:00 38 Mechanical Ventilator 100 08/22/20 01:00 33 Mechanical Ventilator 100 08/22/20 01:00 131 33 115/65 (82) 83 08/22/20 00:00 Mechanical Ventilator 08/22/20 00:00 27 Mechanical Ventilator 100 08/22/20 00:00 100 08/22/20 00:00 96.0 122 27 99/57 (71) 76 08/22/20 00:00 122 08/21/20 23:30 120 30 100/70 (80) 82 08/21/20 23:22 25 Mechanical Ventilator 100 08/21/20 23:15 121 27 101/63 (76) 77 08/21/20 23:14 120 26 100 08/21/20 23:00 124 32 112/76 (88) 83 08/21/20 22:45 128 27 105/79 (88) 81 08/21/20 22:00 34 Mechanical Ventilator 100 08/21/20 22:00 130 34 102/74 (83) 82 08/21/20 21:00 29 Mechanical Ventilator 100 08/21/20 21:00 131 29 95/69 (78) 85 08/21/20 20:00 Mechanical Ventilator 08/21/20 20:00 100 08/21/20 20:00 97.0 141 38 101/67 (78) 75 08/21/20 20:00 38 Mechanical Ventilator 100 08/21/20 19:24 144 08/21/20 19:11 148 27 100 08/21/20 19:00 29 Mechanical Ventilator 100 08/21/20 19:00 146 30 91/57 (68) 81 HEENT: Orally intubated, Mechanically Ventilated, Thin secretions ET Tube RHYTHM: SB LUNGS: bilateral rhonchi, other - right chest tube CARDIAC: regular rhythm, normal S1 and S2, bradycardia ABDOMEN: normal bowel sounds, non tender, soft EXTREMITIES: normal range of motion, non-tender Laboratory Tests Test 08/22/20 05:42 White Blood Count 11.9 K/UL (4.8-10.8) H Red Blood Count 2.84 M/UL (4.70-6.10) L Hemoglobin 8.8 G/DL (14.2-18.0) L Hematocrit 29.7 % (42.0-52.0) L Mean Corpuscular Volume 105 FL (80-99) H Mean Corpuscular Hemoglobin 30.9 PG (27.0-31.0) Mean Corpuscular Hemoglobin Concent 29.5 G/DL (32.0-36.0) L Red Cell Distribution Width 21.9 % (11.6-14.8) H Platelet Count 157 K/UL (150-450) Mean Platelet Volume 8.4 FL (6.5-10.1) Neutrophils (%) (Auto) % (45.0-75.0) Lymphocytes (%) (Auto) % (20.0-45.0) Monocytes (%) (Auto) % (1.0-10.0) Eosinophils (%) (Auto) % (0.0-3.0) Basophils (%) (Auto) % (0.0-2.0) Differential Total Cells Counted 100 Neutrophils % (Manual) 74 % (45-75) Lymphocytes % (Manual) 17 % (20-45) L Monocytes % (Manual) 7 % (1-10) Eosinophils % (Manual) 0 % (0-3) Basophils % (Manual) 0 % (0-2) Band Neutrophils 2 % (0-8) Nucleated Red Blood Cells 4 /100 WBC Platelet Estimate Adequate Platelet Morphology Normal Hypochromasia 3+ Anisocytosis 3+ Sodium Level 149 MMOL/L (136-145) H Potassium Level 4.6 MMOL/L (3.5-5.1) Chloride Level 106 MMOL/L (98-107) Carbon Dioxide Level 41 MMOL/L (21-32) *H Anion Gap 1 mmol/L (5-15) L Blood Urea Nitrogen 26 mg/dL (7-18) H Creatinine 0.5 MG/DL (0.55-1.30) #L Estimat Glomerular Filtration Rate > 60 mL/min (>60) Glucose Level 128 MG/DL (74-106) H Calcium Level 8.9 MG/DL (8.5-10.1) Total Bilirubin 0.8 MG/DL (0.2-1.0) Aspartate Amino Transf (AST/SGOT) 200 U/L (15-37) H Alanine Aminotransferase (ALT/SGPT) 147 U/L (12-78) H Alkaline Phosphatase 159 U/L (46-116) H Total Protein 6.0 G/DL (6.4-8.2) L Albumin 1.5 G/DL (3.4-5.0) L Globulin 4.5 g/dL Albumin/Globulin Ratio 0.3 (1.0-2.7) L Assessment/Plan Assessment/Plan Covid 19 PNA Bilateral PTX Secondary sinus tachycardia K.pneumonia PNA Acute respiratory failure with severe Hypoxia - slightly improved over past day. Diabetes mellitus with hyperglycemia due to steroids Transaminitis Mod protein/calorie malnutrition Dehydration/hypernatremia resolving Paroxysmal SVT Secondary sinu tachycardia CRITICAL & GUARDED Chest tube management/vent support Continuous cardiac monitoring Anticoagulation and steroid rx Titrate oxygen as able; prone. Vent settings adjusted by pulmonary; still cannot tolerate less than 100% FIO2. Anti-viral rx Protein suppl Free water replacement Insulin cov'g by SS; levemir dose advanced further. Consider pressor support, but unlikely benefit without improvement in oxygenation. Chuck Swain MD Aug 22, 2020 19:00
--- NOTE | 2020-08-22 19:31 | NUR ---
NURSE NOTES: called [employer] but stiil on hold.
--- NOTE | 2020-08-22 19:37 | NUR ---
NURSE NOTES: Spoke with [employer] ConsultantAnanth,information given ,said pt is not a Coroners case.
--- NOTE | 2020-08-22 19:42 | NUR ---
NURSE HAND-OFF REPORT: Latest Vital Signs: Temperature 98.7 , Pulse 54 , B/P 119 /57 , Respiratory Rate 25 , O2 SAT 22 , Mechanical Ventilator, O2 Flow Rate . Vital Sign Comment: EKG Rhythm: Sinus Bradycardia Rhythm change?: N MD Notified?: Ildefonso Diana at bedside for re-intubation MD Response: Latest Bradley Fall Score: 50 Fall Risk: High Risk Safety Measures: Call light Within Reach, Bed Alarm Zone 1, Side Rails Side Rails x3, Bed position Low and Locked. Fall Precautions: Yellow Socks Yellow Gown Door Sign Patient Fall Education Report given to .Princess THAPA.
--- NOTE | 2020-08-22 20:01 | NUR ---
NURSE NOTES: Received report from Lou Bagley RN, pt pronounced at 6:37pm. Pt body lying in bed, cleaned and post mortem care done. Waiting for Family to see the pt. Pt covered with white blanket. Identification band intact.
--- NOTE | 2020-08-22 20:05 | NUR ---
NURSE NOTES: Versed waste with ELIER Garcia. Remaining 150ml. Patient is Covid (+). Unable to take it out from pt's room.
== END 2020-08-22 20:00 | disposition expired | DRG 207 ==
LOC: EDBD 18:06 → EMR 18:40 → EDBEDREQ 20:55 → 4E 21:29 → 2E 07-12 16:25 → ICU 07-20 12:27
PROC: 5A1955Z Respiratory Ventilation, Greater than 96 Consecutive Hours (ICD-10-PCS; principal; 2020-07-20)
PROC: 0BH17EZ Insertion of Endotracheal Airway into Trachea, Via Natural or Artificial Opening (ICD-10-PCS; principal; 2020-07-20)
PROC: B548ZZA Ultrasonography of Superior Vena Cava, Guidance (ICD-10-PCS; 2020-07-21)
PROC: 02HV33Z Insertion of Infusion Device into Superior Vena Cava, Percutaneous Approach (ICD-10-PCS; 2020-07-21)
PROC: 0W9930Z Drainage of Right Pleural Cavity with Drainage Device, Percutaneous Approach (ICD-10-PCS; 2020-07-31)
PROC: 0B21XEZ Change Endotracheal Airway in Trachea, External Approach (ICD-10-PCS; 2020-08-01)
PROC: 0B21XEZ Change Endotracheal Airway in Trachea, External Approach (ICD-10-PCS; 2020-08-02)
PROC: 0W9B30Z Drainage of Left Pleural Cavity with Drainage Device, Percutaneous Approach (ICD-10-PCS; 2020-08-12)
DX: U07.1 COVID-19 (principal); J95.811 Postprocedural pneumothorax; J15.0 Pneumonia due to Klebsiella pneumoniae; J12.82 Pneumonia due to coronavirus disease 2019; J80 Acute respiratory distress syndrome; A41.9 Sepsis, unspecified organism; R65.20 Severe sepsis without septic shock; J45.901 Unspecified asthma with (acute) exacerbation; E44.0 Moderate protein-calorie malnutrition; E87.0 Hyperosmolality and hypernatremia; I47.1 Supraventricular tachycardia; B37.0 Candidal stomatitis; E09.65 Drug or chemical induced diabetes mellitus with hyperglycemia; T81.82XA Emphysema (subcutaneous) resulting from a procedure, initial encounter; R00.1 Bradycardia, unspecified; I10 Essential (primary) hypertension; Z66 Do not resuscitate; E86.0 Dehydration; K76.0 Fatty (change of) liver, not elsewhere classified
CPT/HCPCS: 36415; 36569; 71045; 74018; 76705; 76937; 80048; 80053; 80202; 81003; 82550; 82553; 82728; 82803; 82962; 83605; 83615; 83690; 83735; 83880; 84100; 84443; 84478; 84484; 85007; 85025; 85379; 85384; 85610; 85730; 86140; 86803; 87040; 87070; 87181; 87205; 87340; 87517; 93005; 93970; 94002; 94003; 96361; 96365; 96375; 99285; J1815; J2405; J7030; J8499; S5561